=== PATIENT | male | born 1960 | race Caucasian/White ===

== ENCOUNTER → 2016-09-29 | Outpatient (CLI) | payer OTHER ==
[~2016-09-29] MED LIST: ALLO300T2 PO; AMIT50TA3 PO; AMLO-3 PO; ASCA500 PO; ASPEC325 PO; ASPI325T39 PO; CHOL100010 PO; CHOL1CAP30 PO; CLON0.5T3 PO; DIAZ2TAB PO; DIME50TA49; FURO-85 PO; GARL10007 PO; GARL400T2 PO; IBUP-1449 PO; IBUP1CAP9 PO; INSHI7030 SC; INSHRI SQ; INSPMPRGR SQ; INSU1INJ23 SQ; KRIL1CAP14 PO; LISI-526 PO; LISI1TAB3 PO; MAGN250T22 PO; MAGN400T6 PO; MAGN500C PO; METH10TA2 PO; MULT-1018 PO; NXM/40 PO; OMEG10007 PO; ONDA8TAB6 PO; POTASSIUM 99 PO; PROC1TAB5 PO; ROSU5TAB PO; VITA400C15 PO; VITACAP37 PO; VITAMIN D PO; VITBC PO; ZOLP10TA PO
[2016-09-29 13:06] LABS: BASO % 0.3 %; BASO ABS # 0.02 K/uL (0-0.2); COMPLETE YES; EOS % 2.9 %; IG% 0.3 %; LYMPH % 19.8 %; LYMPH ABS # 1.49 K/uL (1.2-3.4); MEAN CORPUSCULAR HEMOGLOBIN 27.9 pg (25-34); MEAN CORPUSCULAR HGB CONC 32.1 g/dl (32-36); MEAN PLATELET VOLUME 10.1 fL (7.4-10.4); MONO % 8.1 %; NEUT % 68.6 %; PLATELET COUNT 310 K/uL (130-400); RED BLOOD COUNT 4.37 M/uL (4.7-6.1); WHITE BLOOD COUNT 7.54 K/uL (4.8-10.8)
== END | disposition home or self-care (01) ==
LOC: C.CPL 12:21
PROVIDERS: ATTEND Surgery
DX: R91.8 Other nonspecific abnormal finding of lung field (principal)

== ENCOUNTER 2016-10-02 11:27 | Day surgery (SDC) | payer OTHER ==
[2016-09-29 16:07] VITALS: BMI 36.0
[~2016-10-02] VITALS: Ht 190.5 cm; Wt 133.0 kg
[~2016-10-02 11:27] MED LIST changes: -ALLO300T2 PO; -AMIT50TA3 PO; -AMLO-3 PO; -ASPI325T39 PO; +ATROPINE SULFATE 0.1 MG/ML 5ML SYR IV PRN; -CHOL100010 PO; -CHOL1CAP30 PO; -CLON0.5T3 PO; -DIME50TA49; +EpHEDrine SULFATE INJ 50 MG/ML AMP IV PRN; +FENTANYL CITRATE INJ 50 MCG/1 ML 2 ML VIAL IV PRN; -GARL10007 PO; -IBUP1CAP9 PO; -INSHI7030 SC; -INSHRI SQ; +LABETALOL HCL IV 5 MG/ML 20ML IV PRN; +LACTATED RINGER'S 1000ML 1,000 ML IV SCH; -LISI-526 PO; -MAGN250T22 PO; -MAGN500C PO; +MEPERIDINE HCL 25 MG/ML CARP IV PRN; -NXM/40 PO; -OMEG10007 PO; -ONDA8TAB6 PO; +ONDANSETRON INJ 2 MG/ML 2 ML VIAL IV PRN; -PROC1TAB5 PO; -ROSU5TAB PO; -VITA400C15 PO; -VITBC PO
[2016-10-02 12:15] VITALS: BP 130/59; PULSE 81; TEMP 37.3; O2SAT 93; Ht 190.5 cm; Wt 133.0 kg
--- NOTE | 2016-10-02 12:42 | Discharge Instructions ---
Discharge Instructions Date of Service Oct 02, 2016. Visit Reason for Visit: Left Lung Mass, Diabetic Discharge Discharge Diagnosis / Problem: Left Lung Mass Discharge Goals Goal(s): Learn about illness Activity Recommendations Activity Limitations: resume your previous activity (in 24 hours) Anesthesia . Post Anesthesia Instructions: If you have had General Anesthesia or IV Sedation: * Do not drive today. * Resume driving when surgeon permits. * Do not make important decisions or sign legal documents today. * Call surgeon for: 1. Temperature elevations greater than 101 degrees F. 2. Uncontrollable pain. 3. Excessive bleeding. 4. Persistent nausea and vomiting. 5. Medication intolerance (nausea, vomiting or rash). * For nausea and vomiting use only clear liquids such as: tea, soda, bouillon until nausea subsides, then gradually increase diet as tolerated. * If you have any concerns or questions, call your surgeon's office. If physician is unavailable and it is an emergency, call 911 or go to the nearest emergency room. . Instructions / Follow-Up Instructions / Follow-Up 1. Keep your scheduled appointment with Dr. Espana on October 09 @ 9:30. 2. You may remove dressing in 3 days and then shower. Do not take a tub bath. Diet Recommendations Recommended Home Diet: resume previous diet Pending Studies Studies pending at discharge: no Medical Emergencies . Who to Call and When: Medical Emergencies: If at any time you feel your situation is an emergency, please call 911 immediately. . Non-Emergent Contact Non-Emergency issues call your: Surgeon Call Non-Emergent contact if: you have a fever, your pain is not controlled, wound has increased drainage . . "Provider Documentation" section prepared by Rosales Lopez. .
--- NOTE | 2016-10-02 13:45 | History & Physical Bridge Note ---
H&P Re-Evaluation Bridge Note: I have examined the patient, reviewed the History & Physical and in the interval since the performance of the History & Physical I have noted the following changes of clinical significance: No changes noted
[2016-10-02] MEDS ORDERED: NEOSTIGMINE METHYLSULFATE 5 MG/5 ML SYR ONE (14:05)
[2016-10-02] MEDS ORDERED: LIDOCAINE HCL 2% 2 ML VIAL (20MG/ML) ONE (14:05)
[2016-10-02] MEDS ORDERED: ONDANSETRON INJ 2 MG/ML 2 ML VIAL ONE (14:05)
[2016-10-02] MEDS ORDERED: PROPOFOL IV EMULSION 10 MG/ML 20 ML VIAL IV ONE ×3 (14:05→14:34)
[2016-10-02] MEDS ORDERED: ROCURONIUM BROMIDE 10 MG/ML 5 ML VIAL ONE (14:05)
[2016-10-02] MEDS ORDERED: GLYCOPYRROLATE INJ 0.2 MG/ML VIAL ONE ×2 (14:05→14:47)
[2016-10-02] MEDS ORDERED: FENTANYL CITRATE INJ 50 MCG/1 ML 2 ML VIAL ONE (14:05)
[2016-10-02] MEDS ORDERED: HYDROmorphone INJ 2 MG/ML SYR/VIAL ONE (14:09)
[2016-10-02] MEDS ORDERED: MIDAZOLAM HCL 1 MG/ML 2ML VIAL ONE (14:09)
[2016-10-02] MEDS ORDERED: NURSING VERBAL MED ORDER ONE (14:15)
[2016-10-02] MEDS ORDERED: BUPIVACAINE LIPOSOME 1/3% 266 MG/20 ML VIAL INFIL ONE (14:29)
[2016-10-02] MEDS ORDERED: SODIUM CHLORIDE 0.9% PF 50 ML VIAL ONE (14:29)
[2016-10-02] MEDS ORDERED: DEXAMETHASONE SOD INJ 4 MG/ML VIAL ONE ×2 (14:30→14:32)
[2016-10-02] MEDS ORDERED: VANCOMYCIN INJ 1,000 MG in SODIUM CHLORIDE 0.9% 250ML 250 ML IV ONE (14:30)
[2016-10-02] MEDS ORDERED: HYDROmorphone INJ 0.5 MG/0.5 ML SYR IV PRN (15:30)
[2016-10-02] MEDS ORDERED: SURGICEL ABSORB HEMOSTAT 2IN X 14IN TOP ONE (15:39)
--- NOTE | 2016-10-02 16:00 | DIAGNOSTIC IMAGING REPORT ---
CHEST ONE VIEW PORTABLE HISTORY:56 yearsMales/p mediastinotomy COMPARISON: CT chest 09/28/2016, chest radiographs 09/28/2016 TECHNIQUE: Portable upright AP view of the chest. FINDINGS: Cardiac silhouette is again enlarged. Anterior mediastinal mass obscures the left paratracheal fat plane and displaces the trachea to the right. Scattered opacities throughout the left upper and lower lobes are redemonstrated, notably a masslike nodule of the left upper lobe. Subsegmental atelectasis and/or scarring is seen within the left upper lobe. The right lung appears clear. There is no pneumothorax or large pleural effusion. Bones appear grossly intact. IMPRESSION: 1. Large anterior mediastinal mass favoring the left paratracheal tissues displaces the mediastinum and trachea to the right, unchanged from comparison. 2. Scattered masslike nodules throughout the left lung suggesting metastasis also appear unchanged. 3. Right lung is clear. The above report was generated using voice recognition software. It may contain grammatical, syntax or spelling errors. Electronically signed by: Rolan Hyde 10/02/2016 3:59 PM Dictated Date/Time: 10/02/2016 3:55 PM
--- NOTE | 2016-10-02 16:03 | Anesthesiology Progress Note ---
Anesthesia Post Op Note Date & Time Oct 02, 2016 at 16:03 Vital Signs Pain Intensity: 0 Vital Signs Past 12 Hours Date Time Temp Pulse Resp B/P (MAP) Pulse Ox O2 Delivery O2 Flow Rate FiO2 10/02/16 15:51 121/60 10/02/16 15:50 79 14 90 10/02/16 15:50 82 14 10/02/16 15:46 117/73 10/02/16 15:45 80 18 10/02/16 15:45 79 18 93 10/02/16 15:41 122/71 10/02/16 15:40 82 15 90 10/02/16 15:40 82 15 10/02/16 15:36 128/79 10/02/16 15:35 83 16 95 10/02/16 15:35 83 16 10/02/16 15:31 118/69 10/02/16 15:30 81 22 98 10/02/16 15:30 82 22 10/02/16 15:26 137/81 10/02/16 15:25 36.3 78 14 137/81 99 Mask 10 10/02/16 12:15 37.3 81 20 130/59 (82) 93 Room Air Notes Mental Status: alert / awake / arousable, participated in evaluation Pt Amnestic to Procedure: Yes Nausea / Vomiting: adequately controlled Pain: adequately controlled Airway Patency, RR, SpO2: stable & adequate BP & HR: stable & adequate Hydration State: stable & adequate Anesthetic Complications: no major complications apparent
[2016-10-02 16:10] VITALS: BP 138/62; PULSE 79; TEMP 36.9; O2SAT 96
--- NOTE | 2016-10-02 16:15 | [facility] Operative Report ---
Operative Report Date of Service Oct 02, 2016. 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 FACS Asst.: Vamshi BECERRIL Anesthesia: General anesthesia with endotracheal intubation Procedure: Patient brought to the operating room and laid in the supine position. After general anesthesia had been induced and tracheal intubation performed, the left chest was prepped and draped in the usual sterile fashion. After appropriate timeout and called and prophylactic antibiotics given incision was made in the second interspace just lateral to the left sternum. This transverse incision was divided with a cautery down to the pectoralis major muscle which was divided in the direction of its fibers. This brought us down to the endothoracic fascia which was divided. The mediastinal pleura was opened. Internal mammary artery and vein were noted and were clipped proximally and distally. Going deeper, the mass this was felt and seen to be quite hard. Using biopsy forceps I removed several pieces of this. There was very little bleeding. This was sent for frozen section and Dr. Octavio Eldridge felt we had plenty of tissue to make a diagnosis. He was leaning towards a small cell lung carcinoma although poorly differentiated lymphoma was still in the differential. 0 Vicryl was used in running fashion reapproximate the pectoralis fascia. 3-0 Polysorb was used to close the Ceptaz tissues and 4 Monocryl was used to insufflate or fashion approximately wound edges. Antimicrobial dressings were placed. He was extubated in the room and really tolerated quite well. I did inject about 150 mL milligrams of Exparel mixed in about 40 mL of normal saline into the surrounding skin and subcutaneous tissues. He really awakened very little pain. His x-ray and was taken back to the postanesthesia care unit in stable condition. I attest to the content of the Intraoperative Record and any orders documented therein. Any exceptions are noted below.
[2016-10-02 16:40] VITALS: BP 126/60; PULSE 83; O2SAT 96
[2016-10-02 17:00] VITALS: BP 134/62; PULSE 87; TEMP 37; O2SAT 96
[2016-10-17] MEDS ORDERED: ONDA8TAB6 PO (08:29)
[2016-10-17] MEDS ORDERED: PROC1TAB5 PO (08:29)
[2016-10-17] MEDS ORDERED: ALLO300T2 PO (08:29)
[2016-12-11] MEDS ORDERED: AMLO-3 PO (09:32)
[2016-12-11] MEDS ORDERED: DIME50TA49 (09:33)
== END 2016-10-02 17:07 | disposition home or self-care (01) ==
LOC: C.ACU 11:27
PROVIDERS: ATTEND Surgery
DX: C38.3 Malignant neoplasm of mediastinum, part unspecified (principal); E11.21 Type 2 diabetes mellitus with diabetic nephropathy; E11.42 Type 2 diabetes mellitus with diabetic polyneuropathy; F17.200 Nicotine dependence, unspecified, uncomplicated; E78.5 Hyperlipidemia, unspecified; I10 Essential (primary) hypertension; E66.9 Obesity, unspecified; E55.9 Vitamin D deficiency, unspecified; Z79.82 Long term (current) use of aspirin

== ENCOUNTER 2016-10-10 19:27 | Emergency (ER) | payer OTHER ==
[~2016-10-10] VITALS: Ht 190.5 cm; Wt 132.9 kg
[~2016-10-10 19:27] MED LIST changes: -ALLO300T2 PO; -AMLO-3 PO; -ASPI325T39 PO; -CHOL1CAP30 PO; -DIME50TA49; -GARL10007 PO; -IBUP1CAP9 PO; -MAGN500C PO; -ONDA8TAB6 PO; -PROC1TAB5 PO
[2016-10-10 19:39] VITALS: TEMP 36.7; Ht 190.5 cm; Wt 132.9 kg
[2016-10-10] MEDS ORDERED: ENOXAPARIN 1 MG/KG SQ STA (19:53)
--- NOTE | 2016-10-10 19:59 | EMERGENCY ROOM VISIT NOTE ---
History First contact with patient: 19:45 Chief Complaint: SWELLING TO EXTREMITY Stated Complaint: LUNG CA PT, SWELLING History of Present Illness The patient is a 56 year old male who presents to the Emergency Room via private vehicle accompanied by father with complaints of "lung cancer patient, swelling to left upper arm". The patient states that he was recently diagnosed with a mass in his chest, and today received his first dose of chemotherapy. He states that for the past 2 weeks he has had left arm swelling, with minimal pain. He states that an ultrasound of the left upper extremity was ordered, and he was sent here from ultrasound because the results. Dr. Gale, called the emergency department and spoke with my attending, and requested the patient be given one made per of Double Encore 1 and he will follow up with Dr. Gale in the office tomorrow morning at 11 AM. The remainder of his care can begin at that time. The patient denies any shortness of breath or chest pain at rest. He states that when he stops he feels shortness of breath. Review of Systems A complete 10-point Review of Systems was discussed with the patient, with pertinent positives and negatives listed in the History of Present Illness. All remaining Review of Systems questions can be considered negative unless otherwise specified. Past Medical/Surgical History Medical Problems: (1) Diabetes Surgical Problems: (1) History of back surgery Family History Diabetes mellitus Social History Smoking Status: Former Smoker Alcohol Use: none Marital Status: single Housing Status: lives alone Occupation Status: unemployed Current/Historical Medications Scheduled Ascorbic Acid (Vitamin C), 500 MG PO BID Aspirin (Aspirin Ec), 325 MG PO QAM Cholecalciferol (Vitamin D3), 400 UNITS PO DAILY Garlic (Garlic), 1,000 MG PO DAILY Insulin Isophane (Human) (Humulin N Kwikpen), 90 UNITS SQ HS Krill Oil (Maximum Red Krill 300 mg), 1 CAP PO QD Lisinopril (Zestril), 30 MG PO DAILY Magnesium Oxide (Mg Supplement (Magnesium), 500 MG PO DAILY Methadone Hcl (Dolophine), 20 MG PO BID Multiple Vitamins W/ Minerals (Hair Skin and Nails Formu), 1 TAB PO DAILY Vitamin E (E-400), 400 MG PO TIDM Zolpidem Tartrate (Ambien), 10 MG PO HS [Potassium 99], 1 TAB PO TID Scheduled PRN Aspirin (Aspirin Ec), 650 MG PO TID PRN for DENTAL PAIN Diazepam (Valium), 4 MG PO BID PRN for Anxiety Furosemide (Lasix), 20 MG PO DAILY PRN for SWELLING Ibuprofen (Ibuprofen), 200 MG PO TID PRN for DENTAL PAIN Insulin Human Regular (Humulin R), 1 DOSE SQ AC PRN for SLIDING SCALE Allergies Coded Allergies: Amoxicillin (Verified Allergy, Intermediate, sob, 10/02/16) Atorvastatin (Verified Allergy, Intermediate, diarrhea, 10/02/16) Acetaminophen (Verified Allergy, Unknown, PT STATES "IT INTENSIFIES EFFECT ", 10/02/16) Clindamycin (Verified Allergy, Unknown, SHORTNESS OF BREATH, 10/02/16) Escitalopram (Verified Allergy, Unknown, GI UPSET, 10/02/16) Gabapentin (Verified Allergy, Unknown, CONSTIPATION, 10/02/16) Morphine (Verified Allergy, Unknown, DID NOT TOLERATE PER PT, 10/02/16) Propoxyphene (Verified Allergy, Unknown, "DID CRAZY THINGS", 10/02/16) Sitagliptin (Verified Allergy, Unknown, UNKNOWN RXN, 10/02/16) Metformin (Verified Adverse Reaction, Unknown, PT STATES "DID NOT WORK", ) Uncoded Allergies: ADHESIVRES (Allergy, Severe, rips his skin off, 10/02/16) Physical Exam Vital Signs Date Time Temp Pulse Resp B/P (MAP) Pulse Ox O2 Delivery O2 Flow Rate FiO2 10/10/16 20:28 84 22 144/71 92 10/10/16 19:39 36.7 85 20 134/71 91 Room Air Physical Exam VITAL SIGNS - Vital signs and nursing notes were reviewed. Patient is afebrile , blood pressure 134/71, non-tachycardic and is saturating on room air at 91%. GENERAL -56-year-old male appearing his stated age who is in no acute distress. Communicates well with provider and answers questions appropriately. SKIN - Without rashes. No petechial rashes. There is slight erythema to the left upper extremity and edema. LUNGS - Chest wall symmetric without accessory muscle use, intercostals retractions, or central cyanosis. Normal vesicular breath sounds CTA B/L. No wheezes, rales, or rhonchi appreciated. CARDIAC - RRR with S1/S2. No murmur, rubs, or gallops appreciated. EXTREMITIES - No clubbing or peripheral cyanosis. No pretibial edema present. He is neurovascularly intact left upper extremity. +5/5 strength noted in UE/LE bilaterally. Medical Decision & Procedures Medications Administered Medications (Trade) Dose Ordered Sig/Prince Route Start Time Stop Time Status Last Admin Dose Admin Enoxaparin Sodium (Lovenox Inj) 129 mg NOW ONCE SQ 10/10/16 20:15 10/10/16 20:16 DC 10/10/16 20:21 129 MG Miscellaneous (Lovenox Teaching Kit) 1 ea NOW ONCE N/A 10/10/16 20:15 10/10/16 20:16 DC 10/10/16 20:20 1 EA Medical Decision Patient was seen and evaluated as above. After obtaining a thorough history and physical examination it was evident the patient was recently diagnosed with a DVT in the left upper extremity. As per the request of his physician, Dr. Gale he'll be placed upon 1 mg/kg of Lovenox which was ordered by my attending. He was educated upon use of this medication. He is to follow-up tomorrow morning at [address] Gale. The request was for 1 dose now and the remainder can be with follow-up in the office. He was educated upon worrisome symptoms in which to return, had questions prior to discharge, and was discharged home in good condition. In evaluation treatment this patient following differential diagnoses entertained: NV, PE, DVT, among others. Impression Primary Impression: DVT of upper extremity (deep vein thrombosis) Departure Information Dispostion Home / Self-Care Condition GOOD Referrals Efraín Zamudio III, M.D. (PCP) Patient Instructions My [facility] Additional Instructions You were seen in the emergency Department for a DVT or blood clot in your left upper arm. Dr. Gale requests that you follow-up with them tomorrow, and they will resume your treatment. Please keep your follow-up for tomorrow. Please return to the emergency department with any new/concerning symptoms.
--- NOTE | 2016-10-10 20:08 | EMERGENCY ROOM VISIT NOTE ---
ED Visit Note First contact with patient: 19:45 I have seen and examined this patient with Cesar Graf and generally agree with the treatment plan as discussed.
[2016-10-10] MEDS ORDERED: ENOXAPARIN 150 MG/1ML SYR SQ ONE (20:15)
[2016-10-10] MEDS ORDERED: LOVENOX TEACHING KIT ONE (20:15)
[2016-10-10] MEDS ORDERED: ASPI325T39 PO ×2 (20:18→20:19)
[2016-10-10] MEDS ORDERED: IBUP1CAP9 PO (20:21)
[2016-10-10] MEDS ORDERED: GARL10007 PO (20:26)
[2016-10-10] MEDS ORDERED: MAGN500C PO (20:27)
[2016-10-10 20:28] VITALS: BP 144/71; PULSE 84; O2SAT 92
[2016-10-10] MEDS ORDERED: CHOL1CAP30 PO (20:30)
[2016-10-17] MEDS ORDERED: ALLO300T2 PO (08:29)
[2016-10-17] MEDS ORDERED: PROC1TAB5 PO (08:29)
[2016-10-17] MEDS ORDERED: ONDA8TAB6 PO (08:29)
[2016-12-11] MEDS ORDERED: AMLO-3 PO (09:32)
[2016-12-11] MEDS ORDERED: DIME50TA49 (09:33)
== END 2016-10-10 20:28 | disposition home or self-care (01) ==
LOC: C.EDB 19:28 → C.EDA 20:28
DX: I82.622 Acute embolism and thrombosis of deep veins of left upper extremity (principal); E11.9 Type 2 diabetes mellitus without complications; Z83.3 Family history of diabetes mellitus; Z87.891 Personal history of nicotine dependence; C34.92 Malignant neoplasm of unspecified part of left bronchus or lung; R60.0 Localized edema

== ENCOUNTER → 2016-10-10 | Outpatient (CLI) | payer OTHER ==
[~2016-10-10] MED LIST changes: +ALLO300T2 PO; +AMLO-3 PO; +ASPI325T39 PO; -ATROPINE SULFATE 0.1 MG/ML 5ML SYR IV PRN; +CHOL1CAP30 PO; +DIME50TA49; -EpHEDrine SULFATE INJ 50 MG/ML AMP IV PRN; -FENTANYL CITRATE INJ 50 MCG/1 ML 2 ML VIAL IV PRN; +GARL10007 PO; +IBUP1CAP9 PO; -LABETALOL HCL IV 5 MG/ML 20ML IV PRN; -LACTATED RINGER'S 1000ML 1,000 ML IV SCH; +MAGN500C PO; -MEPERIDINE HCL 25 MG/ML CARP IV PRN; +ONDA8TAB6 PO; -ONDANSETRON INJ 2 MG/ML 2 ML VIAL IV PRN; +PROC1TAB5 PO
--- NOTE | 2016-10-10 19:06 | DIAGNOSTIC IMAGING REPORT ---
BILATERAL UPPER EXTREMITY VENOUS DOPPLER ULTRASOUND CLINICAL HISTORY: Lung cancer. Swelling. COMPARISON STUDY: No previous studies for comparison. FINDINGS: There is no deep venous thrombus within the right upper extremity. There is extensive deep venous thrombus within the left internal jugular, subclavian, brachiocephalic and axillary veins as well as superficial thrombus within the left cephalic vein. This clot is largely occlusive. IMPRESSION: 1. Extensive deep venous thrombus within the left upper extremity, as described above. 2. No deep venous thrombus within the right upper extremity. Electronically signed by: Thomas Hahn M.D. 10/10/2016 7:05 PM Dictated Date/Time: 10/10/2016 7:02 PM
== END | disposition home or self-care (01) ==
LOC: C.ULTR 16:55
PROVIDERS: ATTEND Internal Medicine Hematology
DX: C34.92 Malignant neoplasm of unspecified part of left bronchus or lung (principal); R60.0 Localized edema; I82.622 Acute embolism and thrombosis of deep veins of left upper extremity

== ENCOUNTER → 2016-10-12 | Outpatient (CLI) | payer OTHER ==
[~2016-10-12] MED LIST changes: +ALLO300T2 PO; +AMLO-3 PO; -ASPEC325 PO; +ASPI325T39 PO; +CHOL1CAP30 PO; +DIME50TA49; +GADAVIST IV PRN; +GARL10007 PO; -GARL400T2 PO; -IBUP-1449 PO; +IBUP1CAP9 PO; -MAGN400T6 PO; +MAGN500C PO; +ONDA8TAB6 PO; +PROC1TAB5 PO; -VITAMIN D PO
--- NOTE | 2016-10-12 17:13 | DIAGNOSTIC IMAGING REPORT ---
ORBITS FOR MRI HISTORY: Pre-MRI pre-MRI screening. COMPARISON: None. FINDINGS: There are no radiopaque foreign bodies identified within the orbits. IMPRESSION: No radiopaque foreign bodies identified within the orbits. The above report was generated using voice recognition software. It may contain grammatical, syntax or spelling errors. Electronically signed by: Sunday Mckeon M.D. 10/12/2016 5:11 PM Dictated Date/Time: 10/12/2016 5:10 PM
--- NOTE | 2016-10-12 18:04 | DIAGNOSTIC IMAGING REPORT ---
BRAIN COMBO CLINICAL HISTORY: LUNG CANCER, BRAIN METS COMPARISON STUDY: No previous studies for comparison. TECHNIQUE: Utilizing a 1.5 Donita magnet and dedicated coil, multiplanar, multiecho imaging of the brain was performed pre and postcontrast administration. IV administration of 13 mL of Gadavist contrast was uneventful. FINDINGS: Diffusion-weighted images are negative for an acute ischemic insult. FLAIR images demonstrate several foci of increased signal suggesting a component of mild chronic small vessel change. Ventricular system is midline. There is no evidence for abnormal postcontrast enhancement. Sella and parasellar regions are unremarkable. IMPRESSION: Negative study of the brain for age. The above report was generated using voice recognition software. It may contain grammatical, syntax or spelling errors. Electronically signed by: Sunday Mckeon M.D. 10/12/2016 6:02 PM Dictated Date/Time: 10/12/2016 5:59 PM
== END | disposition home or self-care (01) ==
LOC: C.MRI 16:35
PROVIDERS: ATTEND Internal Medicine Hematology
DX: C34.92 Malignant neoplasm of unspecified part of left bronchus or lung (principal)

== ENCOUNTER → 2016-10-18 | Outpatient (CLI) | payer OTHER ==
[~2016-10-18] MED LIST changes: -GADAVIST IV PRN; -IBUP1CAP9 PO; -MULT-1018 PO
--- NOTE | 2016-10-18 11:08 | DIAGNOSTIC IMAGING REPORT ---
ADDENDUM ADDENDUM: In addition to the above findings, there is a 1.5 cm left adrenal nodule. This meets CT criteria for a fat-containing adenoma. All additional findings are unchanged. Electronically signed by: Hero Fair M.D. 10/18/2016 11:28 AM Dictated Date/Time: 10/18/2016 11:27 AM ORIGINAL REPORT PET/CT CLINICAL HISTORY: Non-small cell lung cancer. COMPARISON STUDY: Chest CT scan dated 09/28/2016. TECHNIQUE: One hour following the IV administration of 12.88 mCi of F-18 FDG, PET/CT examination was performed from the orbital meatal line through the bony pelvis. Noncontrast CT is performed for the purposes of anatomic correlation and attenuation correction. Note that this does not reflect a diagnostic CT examination. Images were reviewed on a separate [employer] independent workstation. Fused images were obtained. Standard uptake values reported are maximum values within the region of interest expressed in gm/mL. FINDINGS: PET FINDINGS: Head and neck: There is expected physiologic activity within the visualized brain parenchyma at the skull base and the salivary glands. There is nonspecific activity localizing to the right vocal cord as seen on axial image #44. This demonstrates a maximum SUV of 6.4. No corresponding lesion is suggested on the low-dose CT images. Thorax: Evaluation of the thorax demonstrates expected physiologic myocardial activity. There is a large mediastinal mass versus gilson aggregate which measures approximately 9 x 12 x 7.5 cm. This extends from just below the thoracic inlet to the pulmonary trunk and encases the thoracic aorta and its major branches as well as the left main pulmonary artery. This is FDG avid, and demonstrates a maximum SUV of 7.6. There extends towards the left hilum. No right hilar adenopathy is seen. There is a lobulated 3.4 x 1.7 cm lesion in the left upper lobe seen on image #72 as well as a similar-appearing 2.5 x 1.4 cm lesion in the lingula seen on image #93. There is no significant FDG activity within these lesions. Additional subcentimeter nodules are seen in the left upper lobe on images #73 an #75 as well as in the lingula on image #95. These are too small for PET characterization. No right-sided pulmonary lesions are seen. Activity within the left shoulder musculature is likely physiologic. Abdomen and pelvis: There is expected activity within the liver, spleen, kidneys, renal collecting system, and bladder. Low-level bowel activity is likely within physical limits. Unenhanced CT images: Partially imaged brain parenchyma the skull base is grossly normal in appearance. The visualized paranasal sinuses and mastoid air cells are clear. The salivary and thyroid glands are within normal limits. No cervical lymphadenopathy is identified. The thoracic aorta is normal in caliber. The heart is mildly enlarged and there is a small pericardial effusion. Emphysema is noted. There is no airspace consolidation typical for pneumonia. A small pleural effusion is identified. No axillary lymphadenopathy is seen. A tiny hiatal hernia is observed. The unenhanced liver, gallbladder, spleen, right adrenal gland, and pancreas are grossly normal. The kidneys demonstrate cortical atrophy and are without hydronephrosis. The abdominal aorta is normal in caliber noting moderate atherosclerotic calcification. No bowel obstruction is identified. There is mild colonic diverticulosis without CT evidence of acute diverticulitis. No intraperitoneal free air or abdominal ascites is seen. There is no abdominal, pelvic, or inguinal lymphadenopathy. The bladder, prostate, and seminal vesicles are normal as visualized. No lytic or blastic lesions are clearly seen. Postlaminectomy change is identified in the lumbar spine. IMPRESSION: 1. There is a large and FDG avid mediastinal mass/gilson aggregate which encases several vascular structures as detailed above. 2. There are 2 lobular left-sided pulmonary lesions measuring up to 3.4 cm as well as several subcentimeter left-sided pulmonary nodules. These were not demonstrably FDG avid but are morphologically concerning for neoplasm. Tissue sampling will likely be required for definitive characterization. 3. No right-sided pulmonary lesion is seen. 4. Cardiomegaly and emphysema. 5. There is nonspecific FDG activity identified localizing to the right vocal cord. No corresponding soft tissue lesion is suggested by CT. This is of indeterminant etiology and significance, and at a minimum attention at follow-up is recommended. If further investigation is desired then direct visualization would be appropriate. 6. There is no evidence of extrathoracic metastatic disease. 7. Small left pleural effusion. Electronically signed by: Hero Fair M.D. 10/18/2016 11:07 AM Dictated Date/Time: 10/18/2016 10:29 AM
== END | disposition home or self-care (01) ==
LOC: C.PET 07:21
PROVIDERS: ATTEND Internal Medicine Hematology
DX: C34.92 Malignant neoplasm of unspecified part of left bronchus or lung (principal)

== ENCOUNTER → 2016-12-18 | Outpatient (CLI) | payer OTHER ==
[~2016-12-18] MED LIST changes: -ALLO300T2 PO; -LISI1TAB3 PO; -ONDA8TAB6 PO; -PROC1TAB5 PO
--- NOTE | 2016-12-18 11:02 | DIAGNOSTIC IMAGING REPORT ---
LEFT UPPER EXTREMITY VENOUS DOPPLER HISTORY: Follow-up LEFT UPPER EXT DEEP VEIN THROMBOSIS COMPARISON STUDY: Left upper extremity venous Doppler 10/10/2016. FINDINGS: The left internal jugular vein was not clearly visualized. There is normal flow within the left subclavian vein. There is normal flow and compressibility within the left axillary, basilic, brachial, radial, ulnar, and visualized cephalic veins. IMPRESSION: 1. The left internal jugular vein was not clearly visualized and could be chronically thrombosed/narrowed. 2. Otherwise, the remaining left upper extremity deep venous structures are patent. Electronically signed by: Jace Ceballos M.D. 12/18/2016 11:00 AM Dictated Date/Time: 12/18/2016 10:57 AM
== END | disposition home or self-care (01) ==
LOC: C.ULTR 10:20
PROVIDERS: ATTEND Internal Medicine Hematology
DX: C34.92 Malignant neoplasm of unspecified part of left bronchus or lung (principal); I82.622 Acute embolism and thrombosis of deep veins of left upper extremity

== ENCOUNTER → 2017-01-19 | Outpatient (CLI) | payer OTHER ==
[~2017-01-19] MED LIST changes: +Azo PO; +BIOT7500 PO; +CHOL1TAB42 PO; -DIME50TA49; +DIME50TA49 PO; +IBUP-1105 PO; +IPRA1AER2 INH; +OMEG10007 PO; +ONDA8TAB6 PO; +POTA99TA PO; +PROC1TAB5 PO; +TRAM-10 PO; +[UNRECOGNIZED DRUG - CODE] PO
[2017-01-19 09:35] VITALS: BP 125/69; PULSE 88; TEMP 36.9; O2SAT 94
--- NOTE | 2017-01-19 13:38 | Radiation Oncology Follow-Up ---
Radiation Oncology Follow-Up Date of Visit Jan 19, 2017. Reason For Visit One-month follow-up and cancer survivorship care plan Radiation Completion Date 12/19/16 Diagnosis (1) Primary cancer of left upper lobe of lung Status: Acute Onset Date: 10/02/2016 Histology Subtype: small cell carcinoma Stage: lll (B) Permanent Comment: Development of left neck and arm swelling CT finding of impending superior vena caval syndrome, mediastinal mass and left upper lobe mass Status post anterior mediastinal endoscopy and biopsy Beaver procedure 12/2016 Small cell carcinoma Emergent chemotherapy 10/10/2016 carboplatin and etoposide Excellent clinical response Status post completion of combined radiation and chemotherapy radiation completed 12/19/2016. He received 7000 cGy Last Edited By: Alexsandra Galvez on Dec 25, 2016 10:46 History of Present Illness Mr. Carcamo is a 56-year-old gentleman who presents with a recent history of swelling in the left neck that was initially treated with antibiotics but did not improve. He was also developing swelling in the left arm as well. He had a chest x-ray completed on 09/28/2016 which revealed left mediastinal adenopathy and left hilar adenopathy and a left upper lobe mass. He did undergo a CT of the thorax on 09/28/2016 which revealed multiple large upper lobe masses as well as a large conglomerate mediastinal and left hilar mass measuring 15.7 cm in the greatest dimension. Additionally, there was noted to be encasement of multiple mediastinal veins and severe attenuation of the left pulmonary artery. Additionally, they did note some nodularity in the left adrenal gland. The patient was seen by Dr. Bob Espana on 10/02/2016 who did perform a mediastinoscopy and biopsy of the left lung mass which confirmed small cell lung carcinoma. He also had a bilateral upper extremity venous Doppler ultrasound on 10/10/2016 which revealed extensive deep venous thrombosis in the left upper extremity. The patient was seen by Dr. Brett Gale for medical oncology who recommended up front urgent chemotherapy and treated the patient with 1 cycle of carboplatin and etoposide chemotherapy. After completing the cycle of chemotherapy the patient did note a significant reduction in swelling in his left upper extremity and neck. The patient did have an MRI of the brain completed on 10/12/2016 which was negative for metastatic disease. We are now seeing the patient in consultation to discuss the role of radiation therapy. He underwent a PET/CT. He then returned to our office to undergo combined radiation and chemotherapy. Radiation was completed 12/19/2016 he received 7000 cGy. Interim History He continues to have fatigue. He has difficulty with activities and becomes fatigued and at times short of breath. He has seen in medical oncology due to issues that he has been having with intermittent temperature, sweats, and shortness of breath. The Lovenox was discontinued. There was some improvement with the discontinuation of that medication. He continues to have reflux symptoms. He has some difficulty with swallowing. He notes that if food is dry or of a rough texture he has difficulty swallowing. Small pills are difficult to swallow and sometimes come back up. He is tried taking these with applesauce which did not help. He takes in fluids through a straw to prevent coughing. He is not having any complaint today of neck or shoulder swelling. Allergies Coded Allergies: Amoxicillin (Verified Allergy, Intermediate, sob, 10/02/16) Atorvastatin (Verified Allergy, Intermediate, diarrhea, 10/02/16) Acetaminophen (Verified Allergy, Unknown, PT STATES "IT INTENSIFIES EFFECT ", 10/02/16) Clindamycin (Verified Allergy, Unknown, SHORTNESS OF BREATH, 10/02/16) Escitalopram (Verified Allergy, Unknown, GI UPSET, 10/02/16) Gabapentin (Verified Allergy, Unknown, CONSTIPATION, 10/02/16) Morphine (Verified Allergy, Unknown, DID NOT TOLERATE PER PT, 10/02/16) Propoxyphene (Verified Allergy, Unknown, "DID CRAZY THINGS", 10/02/16) Sitagliptin (Verified Allergy, Unknown, UNKNOWN RXN, 10/02/16) Adhesives (Verified Adverse Reaction, Unknown, "rips his skin off", ) Metformin (Verified Adverse Reaction, Unknown, PT STATES "DID NOT WORK", ) Home Medications Scheduled Ascorbic Acid (Vitamin C), 1.5 TABS PO DAILY Aspirin (Aspirin Ec), 325 MG PO QAM Biotin (Biotin), 2 TAB PO DAILY Cholecalciferol (Vitamin D), 1 TAB PO DAILY Fish Oil ([place]-3), 1 CAP PO DAILY Garlic (Garlic), 1,000 MG PO DAILY Insulin Isophane (Human) (Humulin N Kwikpen), 90 UNITS SQ HS Magnesium Oxide (Mg Supplement (Magnesium), 500 MG PO DAILY Methadone Hcl (Dolophine), 20 MG PO BID Vitamin E (E-400), 400 MG PO TIDM Zolpidem Tartrate (Ambien), 10 MG PO HS [Azo], 2 CAP PO DAILY [Potassium 99], 1 TAB PO TID Scheduled PRN Aspirin (Aspirin Ec), 650 MG PO TID PRN for DENTAL PAIN Diazepam (Valium), 4 MG PO BID PRN for Anxiety Dimenhydrinate (Dramamine), 1 CAP PO Q4H PRN for Nausea Furosemide (Lasix), 20 MG PO DAILY PRN for SWELLING Insulin Human Regular (Humulin R), 1 DOSE SQ AC PRN for SLIDING SCALE Ondansetron Hcl (Zofran), 8 MG PO Q8 PRN for Nausea Prochlorperazine Maleate (Compazine), 1 TAB PO Q6 PRN for Nausea Tramadol (Ultram), 100 MG PO Q4H PRN for Pain Review of Systems Gastrointestinal: Symptoms: Nausea GI Comments: Waves of nausea that he notes occurs around his meals; Oral: Other Oral Symptoms: See below notations Respiratory: Symptoms: SOB With Exertion Urinary: Symptoms: WNL Skin: Symptoms: No Problems Other Skin Symptoms: Left areola darker brown that his right one; Physical Exam Vital Signs Date Time Temp Pulse Resp B/P (MAP) Pulse Ox O2 Delivery O2 Flow Rate FiO2 01/19/17 09:35 36.9 88 12 125/69 94 Pain: Patient Pain Scale: 0 - 10 Initial Pain Intensity: 5.0 Fatigue: None General Appearance: no apparent distress Eyes: normal inspection, EOMI ENT: normal ENT inspection, hearing grossly normal Neck: no adenopathy, thyroid normal Respiratory/Chest: lungs clear, no respiratory distress, no accessory muscle use, + decreased breath sounds Cardiovascular: regular rate, rhythm, no gallop, no murmur Abdomen: non tender, soft, no organomegaly Extremities: no pedal edema Neurologic/Psychiatric: no motor/sensory deficits, alert Skin: warm/dry Laboratory Studies Test 11/29/16 09:36 12/06/16 09:35 White Blood Count 3.46 K/uL (4.8-10.8) 2.37 K/uL (4.8-10.8) Red Blood Count 3.85 M/uL (4.7-6.1) 3.40 M/uL (4.7-6.1) Hemoglobin 10.9 g/dL (14.0-18.0) 9.9 g/dL (14.0-18.0) Hematocrit 33.6 % (42-52) 29.8 % (42-52) Mean Corpuscular Volume 87.3 fL (80-100) 87.6 fL (80-100) Mean Corpuscular Hemoglobin 28.3 pg (25-34) 29.1 pg (25-34) Mean Corpuscular Hemoglobin Concent 32.4 g/dl (32-36) 33.2 g/dl (32-36) Platelet Count 217 K/uL (130-400) 102 K/uL (130-400) Mean Platelet Volume 9.1 fL (7.4-10.4) 9.9 fL (7.4-10.4) Neutrophils (%) (Auto) 84.3 % 68.4 % Lymphocytes (%) (Auto) 10.4 % 16.9 % Monocytes (%) (Auto) 3.8 % 12.2 % Eosinophils (%) (Auto) 0.9 % 1.3 % Basophils (%) (Auto) 0.3 % 0.4 % Neutrophils # (Auto) 2.92 K/uL (1.4-6.5) 1.62 K/uL (1.4-6.5) Lymphocytes # (Auto) 0.36 K/uL (1.2-3.4) 0.40 K/uL (1.2-3.4) Monocytes # (Auto) 0.13 K/uL (0.11-0.59) 0.29 K/uL (0.11-0.59) Eosinophils # (Auto) 0.03 K/uL (0-0.5) 0.03 K/uL (0-0.5) Basophils # (Auto) 0.01 K/uL (0-0.2) 0.01 K/uL (0-0.2) RDW Standard Deviation 58.0 fL (36.4-46.3) 59.1 fL (36.4-46.3) RDW Coefficient of Variation 18.4 % (11.5-14.5) 19.3 % (11.5-14.5) Immature Granulocyte % (Auto) 0.3 % 0.8 % Immature Granulocyte # (Auto) 0.01 K/uL (0.00-0.02) 0.02 K/uL (0.00-0.02) Sodium Level 134 mmol/L (136-145) 139 mmol/L (136-145) Potassium Level 5.1 mmol/L (3.5-5.1) 4.1 mmol/L (3.5-5.1) Chloride Level 100 mmol/L (98-107) 105 mmol/L (98-107) Carbon Dioxide Level 28 mmol/L (21-32) 29 mmol/L (21-32) Anion Gap 6.0 mmol/L (3-11) 5.0 mmol/L (3-11) Blood Urea Nitrogen 31 mg/dl (7-18) 19 mg/dl (7-18) Creatinine 1.10 mg/dl (0.60-1.40) 0.93 mg/dl (0.60-1.40) Est Creatinine Clear Calc Drug Dose 113.2 ml/min 135.8 ml/min Estimated GFR () 87.7 107.5 Estimated GFR (Non- 75.7 92.7 BUN/Creatinine Ratio 27.9 (10-20) 20.5 (10-20) Random Glucose 244 mg/dl (70-99) 209 mg/dl (70-99) Calcium Level 9.5 mg/dl (8.5-10.1) 9.5 mg/dl (8.5-10.1) Total Bilirubin 0.2 mg/dl (0.2-1) < 0.1 mg/dl (0.2-1) Aspartate Amino Transferase (AST) 39 U/L (15-37) 33 U/L (15-37) Alanine Aminotransferase (ALT) 28 U/L (12-78) 29 U/L (12-78) Alkaline Phosphatase 58 U/L (45-117) 59 U/L (45-117) Total Protein 6.8 gm/dl (6.4-8.2) 6.5 gm/dl (6.4-8.2) Albumin 3.1 gm/dl (3.4-5.0) 3.0 gm/dl (3.4-5.0) Globulin 3.7 gm/dl (2.5-4.0) 3.5 gm/dl (2.5-4.0) Albumin/Globulin Ratio 0.8 (0.9-2) 0.9 (0.9-2) Nucleated RBC Absolute Count (auto) 0.04 K/uL (0-0) Nucleated Red Blood Cells % 1.5 % Chemistry Specimen Hemolysis Assessment & Plan Plan: He was seen and examined by Dr. Gale. He is scheduled for recheck PET scan and MRI on 01/31/2017. These will be reviewed. Today we completed a cancer survivorship care plan. A copy of the document was given to the patient. He was given a survivorship booklet. I did review his difficulty with swallowing. If this persists he may need to have an evaluation to rule out and treat esophageal stricture. We asked him to return to our office in 6 months. He may call if he has any questions or concerns in the interim. Assessment & Plan (Attending) ADDENDUM: I agree with note created by Alexsandra Galvez PA-C. I reviewed the patient's chart and information with her. I have examined and evaluated the patient. I reviewed relevant clinical information and answered the patient's and /or family's questions. DOORSHAKER Total Time In Follow-Up I spent 20 minutes speaking to the patient performing examination. I spent 20 minutes reviewing information, preparing the survivorship document, and completing this note. Total Time (Attending) In Follow-Up I spent 15 minutes examining and counseling the patient. DOORSHAKER Copy To Brett Gale M.D.; Efraín Zamudio III, M.D.; Bob Espana MD
== END | disposition home or self-care (01) ==
LOC: C.ONC 08:51
PROVIDERS: ATTEND Physician Assistant Medical
DX: Z08 Encounter for follow-up examination after completed treatment for malignant neoplasm (principal); Z92.3 Personal history of irradiation; Z85.118 Personal history of other malignant neoplasm of bronchus and lung

== ENCOUNTER 2017-01-30 11:14 | Inpatient (IN) | payer OTHER ==
[~2017-01-30] VITALS: Ht 190.5 cm; Wt 133.2 kg
[~2017-01-30 11:14] MED LIST changes: -AMLO-3 PO; -CHOL1CAP30 PO; -IBUP-1105 PO; -IPRA1AER2 INH; -KRIL1CAP14 PO; -POTA99TA PO; -[UNRECOGNIZED DRUG - CODE] PO
[2017-01-30] MEDS ORDERED: OPTIRAY 320 IV PRN (11:45)
--- NOTE | 2017-01-30 11:54 | DIAGNOSTIC IMAGING REPORT ---
CHEST ONE VIEW PORTABLE CLINICAL HISTORY: 56 years-old Male presenting with EVALUATE RESPIRATORY DISTRESS.DYSPNEA. TECHNIQUE: Portable upright AP view of the chest was obtained. COMPARISON: 10/02/2016. FINDINGS: The cardiomediastinal silhouette is enlarged secondary to the presence of the multilobular anterior mediastinal mass better appreciated on CT from 09/28/2016. Significant interval opacification of the left lung diffusely area the left mainstem bronchus appears grossly patent. Suggestion of minimal opacity in the right upper lung. No large effusion or pneumothorax. Osseous structures normal. Upper abdomen normal. IMPRESSION: 1. Significant interval increase in diffuse left lung opacity and new minimal opacity in the right upper lung. This is concerning for progression of disease versus postobstructive pneumonia. Further evaluation with CT recommended. Electronically signed by: Octavio Torres M.D. 01/30/2017 11:53 AM Dictated Date/Time: 01/30/2017 11:49 AM
[2017-01-30 11:57] LABS: BASO % 0.1 %; BASO ABS # 0.02 K/uL (0-0.2); COMPLETE YES; EOS % 1.7 %; IG% 1.2 %; LYMPH % 1.7 %; LYMPH ABS # 0.27 K/uL (1.2-3.4); MEAN CELL VOLUME 98.7 fL (80-100); MEAN CORPUSCULAR HEMOGLOBIN 29.6 pg (25-34); MEAN PLATELET VOLUME 11.5 fL (7.4-10.4); NEUT % 90.3 %; PLATELET COUNT 216 K/uL (130-400); RED BLOOD COUNT 3.85 M/uL (4.7-6.1); WHITE BLOOD COUNT 15.71 K/uL (4.8-10.8)
--- NOTE | 2017-01-30 11:58 | EMERGENCY ROOM VISIT NOTE ---
History Report prepared by Soledad: Carli Alfaro Under the Supervision of: Dr. Hero Reynaga M.D. First contact with patient: 11:22 Chief Complaint: RESPIRATORY PROBLEMS Stated Complaint: CAN'T BREATHE History of Present Illness The patient is a 56 year old male who presents to the Emergency Room with complaints of constant respiratory problems for the past few days. The patient has a history of small cell lung carcinoma. He had his last chemotherapy treatment on December 14 and his last radiation treatment on December 19. The patient was recently diagnosed with pneumonia and has been receiving antibiotic injections for the past 5 days. He states that he feels better after the injections, but a few hours before the next injection, "when the antibiotics start to wear off" his symptoms return. He feels short of breath and this is worsened with exertion. He is not on any oxygen at home. The patient went to his PCP's office today. He was told that his lungs sounded clear, but his chest x-ray looked worse. He was sent to the ED for further evaluation. The patient feels like he has something stuck in his throat. He states that when he coughs something up be feels like he can breathe better. The patient rates his pain as a 4/10 in severity. He denies fevers and chest pain. He has a history of a clot in his left arm but is no longer on any blood thinners. The patient is scheduled for a PET scan and an MRI tomorrow. Source of History: patient Onset: a few days ago Position: chest (respiratory) Symptom Intensity: 4/10 Timing: constant Modifying Factors (Worsening): exertion Modifying Factors (Relieving): other (antibiotics) Associated Symptoms: + SOB, No fevers, No chest pain Review of Systems See HPI for pertinent positives & negatives. A total of 10 systems reviewed and were otherwise negative. Past Medical & Surgical Medical Problems: (1) Diabetes Surgical Problems: (1) History of back surgery Family History Diabetes mellitus Social History Smoking Status: Former Smoker Alcohol Use: none Marital Status: single Housing Status: lives alone Occupation Status: unemployed Current/Historical Medications Scheduled Ascorbic Acid (Vitamin C), 750 MG PO DAILY Aspirin (Aspirin Ec), 325 MG PO QAM Biotin (Biotin), 2 TAB PO DAILY Cholecalciferol (Vitamin D), 5,000 UNITS PO DAILY Fish Oil (Earp-3), 1 CAP PO DAILY Garlic (Garlic), 1,000 MG PO DAILY Insulin Isophane (Human) (Humulin N Kwikpen), 90 UNITS SQ HS Magnesium Oxide (Mg Supplement (Magnesium), 500 MG PO DAILY Methadone Hcl (Dolophine), 20 MG PO BID Phenazopyridine Hcl (Azo Standard Maximum Stre), 195 MG PO DAILY Potassium (Potassium), 99 MG PO TID Vitamin E (E-400), 400 MG PO TIDM Zolpidem Tartrate (Ambien), 10 MG PO HS Scheduled PRN Aspirin (Aspirin Ec), 650 MG PO TID PRN for DENTAL PAIN Diazepam (Valium), 4 MG PO BID PRN for Anxiety Dimenhydrinate (Dramamine), 50 MG PO Q4H PRN for Nausea Furosemide (Lasix), 20 MG PO DAILY PRN for SWELLING Ibuprofen (Ibuprofen), 200 MG PO UD PRN for Pain Insulin Human Regular (Humulin R), 1 DOSE SQ AC PRN for SLIDING SCALE Ondansetron Hcl (Zofran), 8 MG PO Q8 PRN for Nausea Prochlorperazine Maleate (Compazine), 10 MG PO Q6 PRN for Nausea Tramadol (Ultram), 100 MG PO Q4H PRN for Pain Allergies Coded Allergies: Amoxicillin (Verified Allergy, Intermediate, sob, 01/30/17) Atorvastatin (Verified Allergy, Intermediate, diarrhea, 01/30/17) Acetaminophen (Verified Allergy, Unknown, PT STATES "IT INTENSIFIES EFFECT ", 01/30/17) Clindamycin (Verified Allergy, Unknown, SHORTNESS OF BREATH, 01/30/17) Escitalopram (Verified Allergy, Unknown, GI UPSET, 01/30/17) Gabapentin (Verified Allergy, Unknown, CONSTIPATION, 01/30/17) Morphine (Verified Allergy, Unknown, DID NOT TOLERATE PER PT, 01/30/17) Propoxyphene (Verified Allergy, Unknown, "DID CRAZY THINGS", 01/30/17) Sitagliptin (Verified Allergy, Unknown, UNKNOWN RXN, 01/30/17) Adhesives (Verified Adverse Reaction, Unknown, "rips his skin off", ) Dextromethorphan (Unverified Adverse Reaction, Unknown, HARD TO BREATHE?, 01/30/17) Guaifenesin (Unverified Adverse Reaction, Unknown, HARD TO BREATHE?, ) Metformin (Verified Adverse Reaction, Unknown, PT STATES "DID NOT WORK", 01/30/17) Yellow Dye (Unverified Adverse Reaction, Unknown, HARD TO BREATHE?, ) Physical Exam Vital Signs Date Time Temp Pulse Resp B/P (MAP) Pulse Ox O2 Delivery O2 Flow Rate FiO2 01/30/17 13:17 93 18 146/83 93 Nasal Cannula 3.0 01/30/17 11:37 94 Nasal Cannula 4.0 01/30/17 11:33 106 01/30/17 11:32 94 Nasal Cannula 4.0 01/30/17 11:32 94 Nasal Cannula 4.0 01/30/17 11:17 36.6 100 18 125/73 79 Room Air Physical Exam GENERAL: Patient is in no acute distress. HEENT: No acute trauma, normocephalic atraumatic, mucous membranes moist, no nasal congestion, no scleral icterus. NECK: No stridor, no adenopathy, no meningismus, trachea is midline. LUNGS: Clear to auscultation bilaterally, no wheeze, no rhonchi, breath sounds equal. HEART: Without murmurs gallops or rubs, regular rate and rhythm. ABDOMEN: Soft, nontender, bowel sounds positive, no hernias, no peritonitis. EXTREMITIES: No cyanosis or edema, full range of motion of all the joints without pain or difficulty, no signs for acute trauma. NEUROLOGIC: Oriented x 3, no acute motor or sensory deficits, no focal weakness. SKIN: Pale, no rash, no jaundice, no diaphoresis. Medical Decision & Procedures ER Provider Diagnostic Interpretation: Radiology results as stated below per my review and radiologist interpretation: SOFT TISSUE NECK WITH HISTORY: 56 years-old Male throat closing sensation, sob acute shortness of breath with stroke pain. History of non-small cell lung carcinoma. COMPARISON: CTA chest of same day, PET CT 10/18/2016, chest CT 09/28/2016 TECHNIQUE: Multiple axial CT images of the soft tissues of the neck were obtained following the intravenous administration of 94 mL Optiray 320. A dose lowering technique was used consistent with the principals of BRANDON. FINDINGS: The nasopharynx, oropharynx and hypopharynx appear patent. There is mild debris within the vallecula. The epiglottis and aryepiglottic folds are unremarkable. True vocal cords appear normal and symmetric. Subglottic airway is patent. No retropharyngeal soft tissue swelling or abscess. There are a few calcifications of the bilateral palatine tonsils. No peritonsillar abscess or tonsillar enlargement identified. Thyroid is homogeneous. Partially imaged consolidation of the left greater than right lung apices noted, further described on comparison chest CT of same day. Paraseptal emphysematous changes noted. The parotid, some mandibular and sublingual glands are unremarkable. No definite adenopathy about the neck. Mildly prominent right paratracheal lymph node measures 9 mm on image 330 of series 4, nonspecific. The imaged intracranial structures demonstrate no acute abnormality. Multilevel facet arthrosis of the cervical spine. Mastoid air cells and middle ear cavities are clear. Paranasal sinuses are also generally clear. Multifocal predominantly is noted with dental caries. IMPRESSION: 1. No acute abnormality identified involving the soft tissues of the neck. No peritonsillar abscess or prevertebral soft tissue swelling. 2. Bilateral palatine tonsilliths 3. Bilateral apical consolidations, left greater than right are better evaluated on CTA chest of same day. The above report was generated using voice recognition software. It may contain grammatical, syntax or spelling errors. Electronically signed by: Rolan Hyde M.D. 01/30/2017 1:34 PM Dictated Date/Time: 01/30/2017 1:[address] ANGIOGRAM OF THE CHEST CLINICAL HISTORY: Dyspnea. Lung cancer. COMPARISON STUDY: Chest x-ray dated 01/30/2017. PET/CT dated 10/18/2016. TECHNIQUE: Following the IV administration of 94 cc of Optiray 320, CT angiogram of the chest was performed from the upper abdomen to the thoracic inlet utilizing the pulmonary embolus protocol. Images are reviewed in the axial, sagittal, and coronal planes. 3-D MIPS images are created and assessed. IV contrast was administered without complication. A dose lowering technique was utilized adhering to the principles of ALARA. CT DOSE: 1130.05 mGy.cm FINDINGS: Thyroid: Imaged portions of the thyroid gland are normal in size and attenuation. Thoracic aorta: The thoracic aorta is normal in caliber and demonstrates standard 3-vessel arch anatomy. No dissection is seen. Pulmonary vasculature: The main pulmonary arteries are dilated suggesting pulmonary artery hypertension. There are pulmonary emboli seen within the right lower lobe pulmonary artery. These extend into segmental and subsegmental branches. Pulmonary emboli are also identified within segmental and subsegmental branches in the left lower lobe as seen on image #140, and within subsegmental branches of the right upper lobe as seen on image number voiding 63. Heart: The heart is markedly enlarged and there is a small pericardial effusion. There are coronary artery calcifications. Lungs and pleural spaces: Emphysema is noted. There is extensive airspace consolidation seen throughout the left lung. Dense airspace consolidation is also seen at the right apex, with more patchy foci of consolidation seen in the right lower lung. The appearance suggests multifocal pneumonia. There is a trace left pleural effusion. The trachea and central airways are clear. The patient's left upper lobe pulmonary mass has modestly decreased in size from 10/18/2016. This now measures up to 1.1 cm in thickness as seen on image #249 (previously measured up to 1.7 cm). Smaller pulmonary lesions are secured by airspace consolidation. Mediastinum: Confluent mediastinal adenopathy in the anterior mediastinum and prevascular region has decreased in size from 10/18/2016. This now measures approximately 9 x 3 cm (producing measured 12 x 7.5 cm). Claudia: Confluent soft tissue in the left hilum likely represents adenopathy. No right hilar adenopathy is seen. Axillae: There is no axillary lymphadenopathy. Upper abdomen: There is a small hiatal hernia. A 1.4 cm left adrenal adenoma is unchanged. Partially visualized upper abdominal viscera is otherwise within normal limits. Skeletal structures: No lytic or blastic bony lesions are seen. IMPRESSION: 1. Bilateral pulmonary emboli as above, greatest in the right lower lobe. 2. Cardiomegaly and emphysema. 3. There is extensive airspace consolidation throughout the left lung as well as at the right apex. The appearance is most typical for multifocal pneumonia. Differential considerations include asymmetric pulmonary edema and/or pulmonary hemorrhage. Clinical correlation will be required and radiographic follow-up to resolution is recommended. 4. Small left pleural effusion. 5. A left upper lobe pulmonary lesion and confluent mediastinal lymphadenopathy have decreased in size from the 10/18/2016 PET examination. Smaller pulmonary lesions seen previously are obscured by airspace consolidation. 6. Additional findings as above. Electronically signed by: Hero Fair M.D. 01/30/2017 1:35 PM Dictated Date/Time: 01/30/2017 1:23 PM CHEST ONE VIEW PORTABLE CLINICAL HISTORY: 56 years-old Male presenting with EVALUATE RESPIRATORY DISTRESS.DYSPNEA. TECHNIQUE: Portable upright AP view of the chest was obtained. COMPARISON: 10/02/2016. FINDINGS: The cardiomediastinal silhouette is enlarged secondary to the presence of the multilobular anterior mediastinal mass better appreciated on CT from 09/28/2016. Significant interval opacification of the left lung diffusely area the left mainstem bronchus appears grossly patent. Suggestion of minimal opacity in the right upper lung. No large effusion or pneumothorax. Osseous structures normal. Upper abdomen normal. IMPRESSION: 1. Significant interval increase in diffuse left lung opacity and new minimal opacity in the right upper lung. This is concerning for progression of disease versus postobstructive pneumonia. Further evaluation with CT recommended. Electronically signed by: Octavio Torres M.D. 01/30/2017 11:53 AM Dictated Date/Time: 01/30/2017 11:49 AM Laboratory Results 01/30/17 11:35 Red Blood Count 3.85, Mean Corpuscular Volume 98.7, Mean Corpuscular Hemoglobin 29.6, Mean Corpuscular Hemoglobin Concent 30.0, Mean Platelet Volume 11.5, Neutrophils (%) (Auto) 90.3, Lymphocytes (%) (Auto) 1.7, Monocytes (%) (Auto) 5.0, Eosinophils (%) (Auto) 1.7, Basophils (%) (Auto) 0.1, Neutrophils # (Auto) 14.19, Lymphocytes # (Auto) 0.27, Monocytes # (Auto) 0.78, Eosinophils # (Auto) 0.26, Basophils # (Auto) 0.02 01/30/17 11:35 Test 01/30/17 11:35 White Blood Count 15.71 K/uL (4.8-10.8) Red Blood Count 3.85 M/uL (4.7-6.1) Hemoglobin 11.4 g/dL (14.0-18.0) Hematocrit 38.0 % (42-52) Mean Corpuscular Volume 98.7 fL (80-100) Mean Corpuscular Hemoglobin 29.6 pg (25-34) Mean Corpuscular Hemoglobin Concent 30.0 g/dl (32-36) Platelet Count 216 K/uL (130-400) Mean Platelet Volume 11.5 fL (7.4-10.4) Neutrophils (%) (Auto) 90.3 % Lymphocytes (%) (Auto) 1.7 % Monocytes (%) (Auto) 5.0 % Eosinophils (%) (Auto) 1.7 % Basophils (%) (Auto) 0.1 % Neutrophils # (Auto) 14.19 K/uL (1.4-6.5) Lymphocytes # (Auto) 0.27 K/uL (1.2-3.4) Monocytes # (Auto) 0.78 K/uL (0.11-0.59) Eosinophils # (Auto) 0.26 K/uL (0-0.5) Basophils # (Auto) 0.02 K/uL (0-0.2) RDW Standard Deviation 71.6 fL (36.4-46.3) RDW Coefficient of Variation 19.8 % (11.5-14.5) Immature Granulocyte % (Auto) 1.2 % Immature Granulocyte # (Auto) 0.19 K/uL (0.00-0.02) Nucleated RBC Absolute Count (auto) 0.16 K/uL (0-0) Nucleated Red Blood Cells % 1.0 % Prothrombin Time 11.3 SECONDS (9.0-12.0) Prothromb Time International Ratio 1.1 (0.9-1.1) Activated Partial Thromboplast Time 23.3 SECONDS (21.0-31.0) Partial Thromboplastin Ratio 0.9 Anion Gap 8.0 mmol/L (3-11) Est Creatinine Clear Calc Drug Dose 95.0 ml/min Estimated GFR () 70.4 Estimated GFR (Non- 60.7 BUN/Creatinine Ratio 22.7 (10-20) Lactic Acid Level 2.0 mmol/L (0.4-2.0) Calcium Level 9.7 mg/dl (8.5-10.1) Magnesium Level 2.0 mg/dl (1.8-2.4) Total Bilirubin 0.2 mg/dl (0.2-1) Aspartate Amino Transf (AST/SGOT) 46 U/L (15-37) Alanine Aminotransferase (ALT/SGPT) 21 U/L (12-78) Alkaline Phosphatase 96 U/L (45-117) Troponin I < 0.015 ng/ml (0-0.045) Total Protein 7.6 gm/dl (6.4-8.2) Albumin 2.6 gm/dl (3.4-5.0) Globulin 5.0 gm/dl (2.5-4.0) Albumin/Globulin Ratio 0.5 (0.9-2) Laboratory results reviewed by me. ECG Indication: SOB/dyspnea Rate (beats per minute): 100 Rhythm: normal sinus Findings: no acute ischemic change, no ectopy ED Course 1122: The patient was evaluated in room B2. A complete history and physical exam was performed. 1407: I reassessed the patient at this time. He is feeling better and resting comfortably. I discussed the results and treatment plan with the patient. I answered all pertaining questions that he had. He expressed understanding and verbalized agreement. 1410: Levofloxacin 750 mg IV 1413: I spoke with Amy Santos PA-C. We discussed the patient's case. The patient will be evaluated by the [facility] for further management. 1503: Ordered Lovenox subcutaneous, 1 mg/kg. Medical Decision The patient is a 56 year old male who presents to the ED with complaints of shortness of breath. Differential diagnoses considered include PE, pneumonia, heart failure, failed outpatient treatment, airway narrowing, neck mass, worsening cancer, radiation scarring, anemia, MS, electrolyte imbalance. There is a moderate leukocytosis which would be consistent with infection. No concerning anemia. No significant electrolyte abnormality, kidney failure or hepatitis. There is no coagulopathy. EKG shows a normal sinus rhythm, no acute ischemia. Cardiac enzyme testing times one is not consistent with acute cardiac injury. Chest x-ray shows significant pulmonary changes on the left with some subtle changes on the right-these are consistent with pneumonia. Chest CT shows bilateral PEs as well as pneumonia, the pneumonia was mostly on the left, some on the right. Neck soft tissue CT does not show any mass, no airway compromise. Lactic acid level is not elevated making a sepsis less likely. The patient was maintained on supplemental O2. He received IV Levaquin as antibiotic coverage. He does require a hospital stay. I spoke to case management, I talked to the patient. I talked to the on-call hospitalist. I suggested IV heparin, however, the hospital team requested Lovenox subcutaneous , this was ordered. Medication Reconcilliation Current Medication List: was personally reviewed by me Blood Pressure Screening Patient's blood pressure: Elevated blood pressure Blood pressure disposition: Elevated BP felt to be situational Consults Time Called: 1409 Consulting Physician: Amy Santos PA-C Returned Call: 1419 I spoke with Amy Santos PA-C. We discussed the patient's case. The patient will be evaluated by the [facility] for further management. Impression Primary Impression: Bilateral pulmonary embolism Additional Impressions: Pneumonia Hypoxia Lung cancer Critical Care I have personally spent greater than 36 minutes of critical care time in the direct management of this patient. This includes bedside care, interpretation of diagnostic studies, and testing, discussion with consultants, patient, and family members, and other required patient management activities. This 36 minutes is in excess of all separately billable procedures. Scribe Attestation The scribe's documentation has been prepared under my direction and personally reviewed by me in its entirety. I confirm that the note above accurately reflects all work, treatment, procedures, and medical decision making performed by me. Departure Information Dispostion Being Evaluated By Hospitalist Referrals No Doctor, Assigned (PCP) Patient Instructions My [facility] Problem Qualifiers
[2017-01-30 12:07] LABS: INR 1.1 (0.9-1.1); PARTIAL THROMBOPLASTIN RATIO 0.9; PROTHROMBIN TIME (PATIENT) 11.3 SECONDS (9.0-12.0)
[2017-01-30 12:15] LABS: ALT/SGPT 21 U/L (12-78); AST/SGOT 46 U/L (15-37); BLOOD UREA NITROGEN 30 mg/dl (7-18); BUN/CREATININE RATIO 22.7 (10-20); CALCIUM 9.7 mg/dl (8.5-10.1); CARBON DIOXIDE 28 mmol/L (21-32); CHLORIDE 102 mmol/L (98-107); CREATININE 1.32 mg/dl (0.60-1.40); GLUCOSE 180 mg/dl (70-99); POTASSIUM 4.3 mmol/L (3.5-5.1); SODIUM 138 mmol/L (136-145)
[2017-01-30 12:19] LABS: ALB/GLOB RATIO 0.5 (0.9-2); ALKALINE PHOSPHATASE 96 U/L (45-117)
--- NOTE | 2017-01-30 13:35 | DIAGNOSTIC IMAGING REPORT ---
SOFT TISSUE NECK WITH HISTORY: 56 years-old Male throat closing sensation, sob acute shortness of breath with stroke pain. History of non-small cell lung carcinoma. COMPARISON: CTA chest of same day, PET CT 10/18/2016, chest CT 09/28/2016 TECHNIQUE: Multiple axial CT images of the soft tissues of the neck were obtained following the intravenous administration of 94 mL Optiray 320. A dose lowering technique was used consistent with the principals of ALARA. FINDINGS: The nasopharynx, oropharynx and hypopharynx appear patent. There is mild debris within the vallecula. The epiglottis and aryepiglottic folds are unremarkable. True vocal cords appear normal and symmetric. Subglottic airway is patent. No retropharyngeal soft tissue swelling or abscess. There are a few calcifications of the bilateral palatine tonsils. No peritonsillar abscess or tonsillar enlargement identified. Thyroid is homogeneous. Partially imaged consolidation of the left greater than right lung apices noted, further described on comparison chest CT of same day. Paraseptal emphysematous changes noted. The parotid, some mandibular and sublingual glands are unremarkable. No definite adenopathy about the neck. Mildly prominent right paratracheal lymph node measures 9 mm on image 330 of series 4, nonspecific. The imaged intracranial structures demonstrate no acute abnormality. Multilevel facet arthrosis of the cervical spine. Mastoid air cells and middle ear cavities are clear. Paranasal sinuses are also generally clear. Multifocal predominantly is noted with dental caries. IMPRESSION: 1. No acute abnormality identified involving the soft tissues of the neck. No peritonsillar abscess or prevertebral soft tissue swelling. 2. Bilateral palatine tonsilliths 3. Bilateral apical consolidations, left greater than right are better evaluated on CTA chest of same day. The above report was generated using voice recognition software. It may contain grammatical, syntax or spelling errors. Electronically signed by: Rolan Hyde M.D. 01/30/2017 1:34 PM Dictated Date/Time: 01/30/2017 1:24 PM
--- NOTE | 2017-01-30 13:36 | DIAGNOSTIC IMAGING REPORT ---
CT ANGIOGRAM OF THE CHEST CLINICAL HISTORY: Dyspnea. Lung cancer. COMPARISON STUDY: Chest x-ray dated 01/30/2017. PET/CT dated 10/18/2016. TECHNIQUE: Following the IV administration of 94 cc of Optiray 320, CT angiogram of the chest was performed from the upper abdomen to the thoracic inlet utilizing the pulmonary embolus protocol. Images are reviewed in the axial, sagittal, and coronal planes. 3-D MIPS images are created and assessed. IV contrast was administered without complication. A dose lowering technique was utilized adhering to the principles of ALARA. CT DOSE: 1130.05 mGy.cm FINDINGS: Thyroid: Imaged portions of the thyroid gland are normal in size and attenuation. Thoracic aorta: The thoracic aorta is normal in caliber and demonstrates standard 3-vessel arch anatomy. No dissection is seen. Pulmonary vasculature: The main pulmonary arteries are dilated suggesting pulmonary artery hypertension. There are pulmonary emboli seen within the right lower lobe pulmonary artery. These extend into segmental and subsegmental branches. Pulmonary emboli are also identified within segmental and subsegmental branches in the left lower lobe as seen on image #140, and within subsegmental branches of the right upper lobe as seen on image number voiding 63. Heart: The heart is markedly enlarged and there is a small pericardial effusion. There are coronary artery calcifications. Lungs and pleural spaces: Emphysema is noted. There is extensive airspace consolidation seen throughout the left lung. Dense airspace consolidation is also seen at the right apex, with more patchy foci of consolidation seen in the right lower lung. The appearance suggests multifocal pneumonia. There is a trace left pleural effusion. The trachea and central airways are clear. The patient's left upper lobe pulmonary mass has modestly decreased in size from 10/18/2016. This now measures up to 1.1 cm in thickness as seen on image #249 (previously measured up to 1.7 cm). Smaller pulmonary lesions are secured by airspace consolidation. Mediastinum: Confluent mediastinal adenopathy in the anterior mediastinum and prevascular region has decreased in size from 10/18/2016. This now measures approximately 9 x 3 cm (producing measured 12 x 7.5 cm). Claudia: Confluent soft tissue in the left hilum likely represents adenopathy. No right hilar adenopathy is seen. Axillae: There is no axillary lymphadenopathy. Upper abdomen: There is a small hiatal hernia. A 1.4 cm left adrenal adenoma is unchanged. Partially visualized upper abdominal viscera is otherwise within normal limits. Skeletal structures: No lytic or blastic bony lesions are seen. IMPRESSION: 1. Bilateral pulmonary emboli as above, greatest in the right lower lobe. 2. Cardiomegaly and emphysema. 3. There is extensive airspace consolidation throughout the left lung as well as at the right apex. The appearance is most typical for multifocal pneumonia. Differential considerations include asymmetric pulmonary edema and/or pulmonary hemorrhage. Clinical correlation will be required and radiographic follow-up to resolution is recommended. 4. Small left pleural effusion. 5. A left upper lobe pulmonary lesion and confluent mediastinal lymphadenopathy have decreased in size from the 10/18/2016 PET examination. Smaller pulmonary lesions seen previously are obscured by airspace consolidation. 6. Additional findings as above. Electronically signed by: Hero Fair M.D. 01/30/2017 1:35 PM Dictated Date/Time: 01/30/2017 1:23 PM
[2017-01-30] MEDS ORDERED: [UNRECOGNIZED DRUG - CODE] PO (13:37)
[2017-01-30] MEDS ORDERED: POTA99TA PO (13:37)
[2017-01-30] MEDS ORDERED: IBUP-1105 PO (13:41)
[2017-01-30] MEDS ORDERED: LEVAQUIN 750MG / 150ML D5W IV STA (14:10)
[2017-01-30] MEDS ORDERED: ENOXAPARIN 1 MG/KG SQ STA (15:01)
[2017-01-30] MEDS ORDERED: ENOXAPARIN 150 MG/1ML SYR SQ STA (15:04)
[2017-01-30] MEDS ORDERED: GLUCOSE 10 TABS/TUBE PO PRN (15:30)
[2017-01-30] MEDS ORDERED: GLUCAGON FOR INJ 1 MG VIAL SQ PRN (15:30)
[2017-01-30] MEDS ORDERED: DEXTROSE 50% 50 ML SYR IV PRN (15:30)
[2017-01-30] MEDS ORDERED: LEVALBUTEROL 0.31MG/3 ML VIAL INH PRN (15:30)
[2017-01-30] MEDS ORDERED: ONDANSETRON INJ 2 MG/ML 2 ML VIAL IV PRN (15:30)
[2017-01-30] MEDS ORDERED: GLUCOSE 40% GEL 15 GM TUBE PO PRN (15:30)
[2017-01-30] MEDS ORDERED: TRAM-10 PO (15:34)
[2017-01-30 15:38] VITALS: BMI 37.4
[2017-01-30] MEDS ORDERED: IPRA1AER2 INH (15:40)
[2017-01-30] MEDS ORDERED: PROCHLORPERAZINE MALEATE 10 MG TAB PO PRN (15:45)
[2017-01-30] MEDS ORDERED: DIAZEPAM 2MG TAB PO PRN (15:45)
[2017-01-30] MEDS ORDERED: CEFEPIME CONSULT ACTIVE PRN ×2 (15:47)
[2017-01-30] MEDS ORDERED: CEFEPIME IV 2,000 MG in SYRINGE 7.5 ML IV STA (15:48)
[2017-01-30] MEDS ORDERED: METHADONE HCL 10 MG TAB PO SCH (16:00)
[2017-01-30 17:03] VITALS: BP 145/80; PULSE 97; TEMP 36.4; O2SAT 94
[2017-01-30] MEDS: CEFEPIME IV 2,000 MG in SYRINGE 7.5 ML IV SCH ×2 (17:11→23:33)
[2017-01-30] MEDS: METHADONE HCL 10 MG TAB PO SCH ×2 (19:00→23:32)
[2017-01-30] MEDS: PATIENT'S OWN CONTROLLED MED PO SCH ×2 (19:00→23:00)
--- NOTE | 2017-01-30 19:15 | History and Physical ---
History & Physical Date of Service Jan 30, 2017. History & Physical This is a 56 year old male with a PMH of small cell lung CA - has undergone chemo/radiation, hx. of upper extremity DVT with recent cessation of Lovenox, insulin dependent DM2, diabetic polyneuropathy presents secondary to hypoxia and failed outpatient therapy for pneumonia. He states that he was seen by hematology-oncology and primary care physician and was getting antibiotics as an outpatient (Levaquin and an IM injection that he cannot recall the name of). Was sent over when he was still hypoxic - had imaging done in the ER, found to have bilateral PEs as well as multifocal pneumonia. VITALS: Last Vital Signs Documentation Date Time Temp Pulse Resp B/P (MAP) Pulse Ox O2 Delivery O2 Flow Rate FiO2 01/30/17 17:03 36.4 97 18 145/80 (101) 94 3.0 01/30/17 16:24 GEN: no acute distress, on oxygen at rest HEENT: NCAT CVS: +S1, S2, RRR LUNGS: CTA b/l, no wheezing ABD: soft, NT/ND NEURO: no focal deficits Bilateral PE should be on Lovenox for life (has had previous RUQ DVT) refusing to use Lovenox in the abdomen, demands that he be allowed to use it in the R LE will okay this for a few doses and consult Hem/Onc wean O2, ambulate as tolerated Multifocal Pneumonia Unsure if non-compliant as outpatient with Levaquin, but we will switch to Cefepime and Vanco O2 for now monitor vitals, monitor CBC Insulin Dependent DM2 patient uses a high dose of Humalin - he is refusing any other types of insulin , so we will allow him to use his home dose Chronic Back Pain sees pain management for methadone wants to use his methadone from home - pharmacy aware and are working on ID'ing his pills
[2017-01-30] MEDS: TRAMADOL HCL 50 MG TAB PO PRN (19:47)
[2017-01-30 20:00] VITALS: O2SAT 90
--- NOTE | 2017-01-30 20:04 | History and Physical ---
History & Physical Date & Time of Service: Jan 30, 2017 at 19:28 Chief Complaint: Bilateral Pulmonary Embolism, Pneumonia Primary Care Physician: Efraín Zamudio III, M.D. History of Present Illness Source: patient, clinic records, hospital records This is a 56yo M with a PMH of small cell lung cancer (completed chemo/ radiation in Nov), h/o L UE DVT (with recent cessation of Lovenox), DM II and chronic back pain who presents after failing out-patient treatment for PNA. Patient received 5 days of treatment with IM rocephin, prednisone and combivent inhaler and when he returned for follow-up with PCP today, was found to be hypoxic and was sent to the ER for further evaluation. Repeat XR show a significant interval increase in L lung as well as a new opacity in the R lung. Chest/thorax CTA shows bilateral PEs. Patient had been on lovenox until a week ago, when he decided to stop it due to experiencing fevers and cold sweats. Had been injecting lovenox into his thighs due to the pain he experienced when injecting his stomach. Symptoms have improved since then, per patient. Unclear in chart review whether patient discussed cessation of lovenox with his oncologist, Dr. Gale. Currently endorsing a productive cough and SOB. Denies fever, chills, wheezing, CP, abd pain, nausea, vomiting, calf pain or swelling of any extremities. Past Medical/Surgical History Medical Problems: (1) Diabetes Status: Chronic Surgical Problems: (1) History of back surgery Status: Resolved Family History Diabetes mellitus Social History Smoking Status: Former Smoker Marital Status: single Occupational Status: unemployed Multi-Drug Resistant Organisms History of MDRO: No Allergies Coded Allergies: Amoxicillin (Verified Allergy, Intermediate, sob, 01/30/17) PER CONVERSATION WITH ANSELMO AQUINO PA-C - SHE SPOKE WITH PATIENT WHO STATES THAT THIS IS NOT A TRUE ALLERGY HE HAS TOLERATED PENCILLINS IN THE PAST. TOLERATES ROCEPHIN X 5 DOSES AN OUTPATIENT. Atorvastatin (Verified Allergy, Intermediate, diarrhea, 01/30/17) Acetaminophen (Verified Allergy, Unknown, PT STATES "IT INTENSIFIES EFFECT ", 01/30/17) Clindamycin (Verified Allergy, Unknown, SHORTNESS OF BREATH, 01/30/17) Escitalopram (Verified Allergy, Unknown, GI UPSET, 01/30/17) Gabapentin (Verified Allergy, Unknown, CONSTIPATION, 01/30/17) Morphine (Verified Allergy, Unknown, DID NOT TOLERATE PER PT, 01/30/17) Propoxyphene (Verified Allergy, Unknown, "DID CRAZY THINGS", 01/30/17) Sitagliptin (Verified Allergy, Unknown, UNKNOWN RXN, 01/30/17) Adhesives (Verified Adverse Reaction, Unknown, "rips his skin off", ) Dextromethorphan (Unverified Adverse Reaction, Unknown, HARD TO BREATHE?, 01/30/17) Guaifenesin (Unverified Adverse Reaction, Unknown, HARD TO BREATHE?, ) Metformin (Verified Adverse Reaction, Unknown, PT STATES "DID NOT WORK", 01/30/17) Yellow Dye (Unverified Adverse Reaction, Unknown, HARD TO BREATHE?, ) Home Medications Scheduled Aspirin (Aspirin Ec), 325 MG PO QAM Cholecalciferol (Vitamin D), 5,000 UNITS PO DAILY Insulin Isophane (Human) (Humulin N Kwikpen), 90 UNITS SQ HS Ipratropium-Albuterol (Combivent Respimat), 1 PUFFS INH QID Methadone Hcl (Dolophine), 20 MG PO BID Phenazopyridine Hcl (Azo Standard Maximum Stre), 195 MG PO DAILY Potassium (Potassium), 99 MG PO TID Vitamin E (E-400), 400 MG PO TIDM Zolpidem Tartrate (Ambien), 10 MG PO HS Scheduled PRN Diazepam (Valium), 4 MG PO BID PRN for Anxiety Dimenhydrinate (Dramamine), 50 MG PO Q4H PRN for Nausea Furosemide (Lasix), 20 MG PO DAILY PRN for SWELLING Ibuprofen (Ibuprofen), 200 MG PO UD PRN for Pain Insulin Human Regular (Humulin R), 1 DOSE SQ AC PRN for SLIDING SCALE Ondansetron Hcl (Zofran), 8 MG PO Q8 PRN for Nausea Prochlorperazine Maleate (Compazine), 10 MG PO Q6 PRN for Nausea Tramadol (Ultram), 50 MG PO Q6H PRN for Pain Review of Systems Ten systems reviewed and negative except as noted in the HPI. Physical Exam Vital Signs Date Time Temp Pulse Resp B/P (MAP) Pulse Ox O2 Delivery O2 Flow Rate FiO2 01/30/17 17:03 36.4 97 18 145/80 (101) 94 3.0 01/30/17 16:24 91 20 129/83 94 01/30/17 16:16 91 20 129/83 94 Nasal Cannula 3.0 01/30/17 15:38 Nasal Cannula 3.0 01/30/17 15:02 93 22 142/81 95 Nasal Cannula 3.0 01/30/17 13:17 93 18 146/83 93 Nasal Cannula 3.0 01/30/17 11:37 94 Nasal Cannula 4.0 01/30/17 11:33 106 01/30/17 11:32 94 Nasal Cannula 4.0 01/30/17 11:32 94 Nasal Cannula 4.0 01/30/17 11:17 36.6 100 18 125/73 79 Room Air General Appearance: no apparent distress, + obese Head: normocephalic, atraumatic Eyes: normal inspection, PERRL, EOMI, sclerae normal (conjunctiva normal ) ENT: normal ENT inspection, hearing grossly normal, pharynx normal (Moist mucous membranes) Neck: supple, no adenopathy, trachea midline Respiratory/Chest: chest non-tender, no respiratory distress (breathing comfortably on O2), no accessory muscle use, + crackles ([place] at L lung base. Otherwise clear to auscultation ) Cardiovascular: regular rate, rhythm, no murmur Abdomen/GI: normal bowel sounds, non tender, soft, no organomegaly Back: normal inspection Extremities/Musculoskelatal: normal inspection, no calf tenderness, no pedal edema Neurologic/Psych: no motor/sensory deficits, alert, oriented x 3 Skin: normal color, warm/dry, no rash Diagnostics Laboratory Results Results Past 24 Hours Test 01/30/17 11:35 01/30/17 17:23 Range/Units White Blood Count 15.71 4.8-10.8 K/uL Red Blood Count 3.85 4.7-6.1 M/uL Hemoglobin 11.4 14.0-18.0 g/dL Hematocrit 38.0 42-52 % Mean Corpuscular Volume 98.7 80-100 fL Mean Corpuscular Hemoglobin 29.6 25-34 pg Mean Corpuscular Hemoglobin Concent 30.0 32-36 g/dl Platelet Count 216 130-400 K/uL Mean Platelet Volume 11.5 7.4-10.4 fL Neutrophils (%) (Auto) 90.3 % Lymphocytes (%) (Auto) 1.7 % Monocytes (%) (Auto) 5.0 % Eosinophils (%) (Auto) 1.7 % Basophils (%) (Auto) 0.1 % Neutrophils # (Auto) 14.19 1.4-6.5 K/uL Lymphocytes # (Auto) 0.27 1.2-3.4 K/uL Monocytes # (Auto) 0.78 0.11-0.59 K/uL Eosinophils # (Auto) 0.26 0-0.5 K/uL Basophils # (Auto) 0.02 0-0.2 K/uL RDW Standard Deviation 71.6 36.4-46.3 fL RDW Coefficient of Variation 19.8 11.5-14.5 % Immature Granulocyte % (Auto) 1.2 % Immature Granulocyte # (Auto) 0.19 0.00-0.02 K/uL Nucleated RBC Absolute Count (auto) 0.16 0-0 K/uL Nucleated Red Blood Cells % 1.0 % Prothrombin Time 11.3 9.0-12.0 SECONDS Prothromb Time International Ratio 1.1 0.9-1.1 Activated Partial Thromboplast Time 23.3 21.0-31.0 SECONDS Partial Thromboplastin Ratio 0.9 Sodium Level 138 136-145 mmol/L Potassium Level 4.3 3.5-5.1 mmol/L Chloride Level 102 98-107 mmol/L Carbon Dioxide Level 28 21-32 mmol/L Anion Gap 8.0 3-11 mmol/L Blood Urea Nitrogen 30 7-18 mg/dl Creatinine 1.32 0.60-1.40 mg/dl Est Creatinine Clear Calc Drug Dose 95.0 ml/min Estimated GFR () 70.4 Estimated GFR (Non- 60.7 BUN/Creatinine Ratio 22.7 10-20 Random Glucose 180 70-99 mg/dl Lactic Acid Level 2.0 0.4-2.0 mmol/L Calcium Level 9.7 8.5-10.1 mg/dl Magnesium Level 2.0 1.8-2.4 mg/dl Total Bilirubin 0.2 0.2-1 mg/dl Aspartate Amino Transf (AST/SGOT) 46 15-37 U/L Alanine Aminotransferase (ALT/SGPT) 21 12-78 U/L Alkaline Phosphatase 96 45-117 U/L Troponin I < 0.015 0-0.045 ng/ml Total Protein 7.6 6.4-8.2 gm/dl Albumin 2.6 3.4-5.0 gm/dl Globulin 5.0 2.5-4.0 gm/dl Albumin/Globulin Ratio 0.5 0.9-2 Hepatitis C Antibody Screen NEG NEG Bedside Glucose 247 70-99 mg/dl Microbiology Results 01/30/17 Blood Culture, Received Pending 01/30/17 Blood Culture, Received Pending Diagnostic Radiology CXR: IMPRESSION: Significant interval increase in diffuse left lung opacity and new minimal opacity in the right upper lung. This is concerning for progression of disease versus postobstructive pneumonia. Further evaluation with CT recommended. Chest/thorax CTA: IMPRESSION: 1. Bilateral pulmonary emboli as above, greatest in the right lower lobe. 2. Cardiomegaly and emphysema. 3. There is extensive airspace consolidation throughout the left lung as well as at the right apex. The appearance is most typical for multifocal pneumonia. Differential considerations include asymmetric pulmonary edema and/or pulmonary hemorrhage. Clinical correlation will be required and radiographic follow-up to resolution is recommended. 4. Small left pleural effusion. 5. A left upper lobe pulmonary lesion and confluent mediastinal lymphadenopathy have decreased in size from the 10/18/2016 PET examination. Smaller pulmonary lesions seen previously are obscured by airspace consolidation. 6. Additional findings as above. Soft tissue neck CT: IMPRESSION: 1. No acute abnormality identified involving the soft tissues of the neck. No peritonsillar abscess or prevertebral soft tissue swelling. 2. Bilateral palatine tonsilliths 3. Bilateral apical consolidations, left greater than right are better evaluated on CTA chest of same day. Impression Assessment and Plan This is a 56yo M with a PMH of small cell lung cancer (completed chemo/ radiation in Nov), h/o L UE DVT (with recent cessation of Lovenox), DM II and chronic back pain who presents after failing out-patient treatment for PNA. Bilateral PE: -Chest/thorax CTA with bilateral PE (greatest in RLL) -Refuses to use Lovenox in the abdomen; wants to inject in his thigh -Also refuses to use IV heparin -Will allow administration in thigh for a few doses -Consult heme/onc for further recommendation Multifocal PNA: -Chest/thorax CTA with extensive airspace consolidation throughout the left lung as well as at the right apex. The appearance is most typical for multifocal pneumonia -Failed outpatient course of IM rocephin, prednisone and combivent -Cefepime and vanc initiated -Blood cultures pending -Monitor CBC, vitals Hypoxia 2/2 PNA, bilateral PE: -Not on home O2 but requiring 3L for saturation above 90% -Continue supplemental O2 while hypoxic; wean as tolerated DM II: -Insulin dependent -Last hgb a1c of 6.2 in July 2016 -Recheck hgb a1c -Per patient, uses a high dose of Humulin at home (between 70-90 U in additional to sliding scale) -States that some days he does not take any insulin -Refusing to use any other type of insulin besides his home dose -Patient to use home dose with help with administration from nursing staff -BSG checks AC HS Anxiety: -Per patient, becomes very anxious when hospitalized -Continue home dose valium BID, ambien at night -Has asked for an increased dose -Plan to clinically assess anxiety and increase if appropriate Chronic back pain: -Sees pain management for management for methadone -Currently on 2 10mg tabs BID but prefers to take 10mg QID with meals -Has been asking to use his methadone from home (not what is on formulary) -Pharmacy is aware; working on pill identification Small cell lung cancer: -Completed chemo/radiation treatment in Nov -Still follows with oncologist Dr. Gale -Had PET scan scheduled this week; will reschedule DVT Ppx: On Lovenox for PE treatment Code status: FULL PCP: Lizz Dispo: SW consulted to help with discharge placement. Patient seen in collaboration with Dr. Maxwell. Please see addendum. Level of Care Telemetry Advanced Directives Existing Living Will: Yes Existing Power of Meat Stock Clerk: Yes Resuscitation Status FULL RESUSCITATION VTE Prophylaxis VTE Risk Assessment Done? Y/N: Yes Risk Level: High Given or contraindicated: Enoxaparin (Lovenox)SQ
[2017-01-30 20:09] VITALS: BP 144/80; PULSE 92; TEMP 36.6; O2SAT 90
[2017-01-30] MEDS ORDERED: PHARMACY GLYCEMIC MGMT CONSULT PRN (20:51)
[2017-01-30] MEDS ORDERED: ENOXAPARIN 1 MG/KG SQ SCH (21:00)
[2017-01-30] MEDS ORDERED: INSULIN ASPART 100 UNITS/ML 3 ML PEN SC SCH (21:00)
[2017-01-30] MEDS ORDERED: INSU1INJ23 SQ (21:29)
[2017-01-30] MEDS ORDERED: NovoLIN-N (NPH) PER UNIT CHARGE SQ SCH (22:00)
[2017-01-30] MEDS: INSULIN HUMAN REGULAR SC SCH (22:37)
[2017-01-30] MEDS: ENOXAPARIN 150 MG/1ML SYR SQ SCH (22:41)
[2017-01-30 23:10] VITALS: BP 130/75; PULSE 94; TEMP 36.4; O2SAT 91
[2017-01-30] MEDS: ZOLPIDEM TARTRATE 10 MG TAB PO SCH (23:32)
[2017-01-31] VITALS (8 sets, daily range): BP systolic 120–159; BP diastolic 72–80; PULSE 90–118; TEMP 36.4–37.1; O2SAT 88–95; Ht 190.5 cm; Wt 133.2 kg
[2017-01-31] MEDS ORDERED: CEFEPIME IV 2,000 MG in DEXTROSE 5% 100ML 100 ML IV SCH ×2
[2017-01-31] MEDS ORDERED: NURSING VERBAL MED ORDER ONE ×2 (00:15→07:30)
[2017-01-31] MEDS ORDERED: INSULIN HUMAN REGULAR SC SCH (01:00)
[2017-01-31] MEDS: TRAMADOL HCL 50 MG TAB PO PRN ×3 (01:38→15:37)
[2017-01-31] MEDS: OXYMETAZOLINE HCL 0.05% NA SPR 15 ML BTL NAE PRN ×2 (01:54→23:56)
[2017-01-31 07:25] LABS: HEMATOCRIT 32.6 % (42-52); MEAN CELL VOLUME 98.5 fL (80-100); MEAN CORPUSCULAR HEMOGLOBIN 29.9 pg (25-34); MEAN CORPUSCULAR HGB CONC 30.4 g/dl (32-36); MEAN PLATELET VOLUME 10.8 fL (7.4-10.4); PLATELET COUNT 182 K/uL (130-400); RED BLOOD COUNT 3.31 M/uL (4.7-6.1); WHITE BLOOD COUNT 10.92 K/uL (4.8-10.8)
--- NOTE | 2017-01-31 07:46 | Clinical Documentation Query ---
CLINICAL DOCUMENTATION QUERY Dr. WOODSON, In your clinical opinion is this patient being managed for: ( x ) possible/suspected gram negative pneumonia ( ) Not Agree ( ) Other explanation of clinical findings (Please Explain) ( ) Unable to determine (Please Define) ( ) Need to Discuss The medical record reflects the following clinical findings, treatment, and risk factors. Clinical Indicators: 56 yo male presenting with constant respiratory problems. Was being treated as an outpatient with antibiotics however CXR showed worsening. Tachycardic with HR 100 and hypoxic 79% on RA. WBC 15.71, neut 14.19 Treatment: blood cultures, IV cefepime, po levaquin, O2 support, xopenex prn Risk Factors:lung cancer, failed outpatient pneumonia treatment, DM, immunocompromised Please clarify and document your clinical opinion in the progress notes and discharge summary. Terms such as "probable", "suspected", "likely", "questionable", "possible", or "still to be ruled out" are acceptable. IF IN AGREEMENT, YOU MUST DOCUMENT ABOVE DIAGNOSTIC STATEMENT IN DAILY PROGRESS NOTES AND DISCHARGE SUMMARY. This document is not part of the patient's record. Thank You, Latonia Callahan RN [phone]
[2017-01-31] MEDS: METHADONE HCL 10 MG TAB PO SCH ×4 (07:52→22:21)
[2017-01-31] MEDS: CEFEPIME IV 2,000 MG in SYRINGE 7.5 ML IV SCH ×3 (07:53→23:56)
[2017-01-31] MEDS: ASPIRIN 325 MG ECTAB PO SCH (07:54)
[2017-01-31] MEDS: CHOLECALCIFEROL 1000 INTER.UNIT TAB PO SCH (07:54)
[2017-01-31] MEDS: INSULIN HUMAN REGULAR SC SCH ×3 (08:00→16:30)
[2017-01-31 08:17] LABS: BUN/CREATININE RATIO 28.5 (10-20); CALCIUM 9.4 mg/dl (8.5-10.1); POTASSIUM 3.8 mmol/L (3.5-5.1)
[2017-01-31 08:35] LABS: ESTIMATED AVERAGE GLUCOSE 137 mg/dl; HA1C FLAG Normal (Normal)
[2017-01-31] MEDS: LEVOFLOXACIN 750 MG TAB PO SCH (10:51)
[2017-01-31] MEDS: ENOXAPARIN 150 MG/1ML SYR SQ SCH ×2 (10:52→22:20)
--- NOTE | 2017-01-31 12:55 | Pharmacy Progress Note ---
Glycemic Control Intl Consult Date of Service Jan 31, 2017. Scope Glycemic Pharmacist consulted by Dr Maxwell on 01/30/17 for glycemic control and to write orders per [facility] inpatient glycemic control protocol Objective Weight (Kilograms): 134.400 Accuchecks BSG (last 24hrs): Test 01/30/17 17:23 01/30/17 20:22 01/31/17 00:45 01/31/17 07:02 Bedside Glucose 247 mg/dl (70-99) 228 mg/dl (70-99) 187 mg/dl (70-99) Random Glucose 50 mg/dl (70-99) Test 01/31/17 07:39 01/31/17 11:44 Bedside Glucose 66 mg/dl (70-99) 83 mg/dl (70-99) Laboratory Data (last 24hrs) Test 01/31/17 07:02 Anion Gap 7.0 mmol/L BUN/Creatinine Ratio 28.5 Blood Urea Nitrogen 28 mg/dl Creatinine 1.00 mg/dl Hemoglobin A1c 6.4 % Potassium Level 3.8 mmol/L Sodium Level 137 mmol/L White Blood Count 10.92 K/uL HbA1c Test 01/31/17 07:02 Hemoglobin A1c 6.4 % (4.5-5.6) H Recent Pertinent Medications Outpatient Anti-diabetic Regimen: * NPH 70-90 units SQ BID * Regular insulin 20 units with meals & HS snack Assessment & Plan ASSESSMENT: * 56yo T2DM male with well controlled diabetes per recent A1c. * Interviewed patient today and discussed outpatient regimen and insulin dosing. Pt has multiple allergies to antidiabetic medications and only tolerates NPH/Regular. He was refusing the hospital insulin but is now willing to take it as long as it is NPH or Regular (not NovoLog or Lantus). Pt follows with [facility] Endocrinology. * Pt typically takes NPH 70 units SQ BID but "does his own thing" and skips if his BSG is low. * Pt had a LOW BGS this AM which he attributes to the 3 units of regular insulin that he received at 0300 to cover a BSG of 187mg/dl. * Anticipating that patient will require significantly less insulin while admitted secondary to controlled diet/CHO. Will decrease outpatient regimen slightly to prevent another low. * Oh note, patient may refuse or dictate his own insulin doses differing from the orders below since he is quite particular about what he takes/requires. PLAN FOR INPATIENT GLYCEMIC CONTROL: * Basal insulin * NPH 0-60 units SQ BID - dosing based on BSG since true needs are unknown * BSG < 110 mg/dl --> 0 units * BSG 110-140 mg/dl --> 30 units * BSG 141+ --> 60 units * Bolus insulin * REGULAR per scale AC ONLY. Will omit HS dosing of regular insulin to prevent AM low. * Goal Range: Low 110 mg/dL - High 150 mg/dL * Correction Factor: 10 mg/dL/unit * Nutritional / Prandial insulin per carb ratio of 1 unit per 4 grams CHO consumed * Please note that the plan above was derived based on current level of insulin resistance and hospital stress. These recommendations are appropriate for inpatient admission only. Plan of care upon discharge will need to be reassessed to avoid potential outpatient hypo/hyperglycemia. Thank you.
[2017-01-31] MEDS ORDERED: CALCIUM CARBONATE 500 MG CHEWABLE PO PRN (14:30)
--- NOTE | 2017-01-31 15:58 | Progress Note ---
Medicine Progress Note Date & Time of Visit: Jan 31, 2017 at 14:32. Subjective 56 yo with SCLC presents with hypoxia and bilateral PE -breathing is worse today per patient -reports some coughing -uncertain about fevers or chills -tolerating PO -ambulates independently Objective Last 8 Hrs Date Time Temp Pulse Resp B/P (MAP) Pulse Ox O2 Delivery O2 Flow Rate FiO2 01/31/17 12:10 Nasal Cannula 01/31/17 11:33 36.7 90 20 124/73 (90) 94 Nasal Cannula 5.0 01/31/17 08:00 Nasal Cannula 01/31/17 07:31 118 20 159/77 (104) 88 Nasal Cannula 5.0 Physical Exam: GEN: WNWD, in no acute distress, alert and appropriate HEENT: NC/AT, normal sclerae, MMM CARDIO: reg rate, S1/2 heard without m/g/r LUNGS: CTA bilaterally,coarse rhonchi, rales or wheezes, good diaphragmatic excursion ABD: soft, non-tender, protuberant but non-distended, no rebound or guarding, + BS EXTREMITY: RP and DP palpable 2+ bilat, no LE swelling or edema, extremities are warm and well-perfused NEURO: CN 2-12 grossly intact MUSC: ambulatory, no gross focal deficits. SKIN: warm and dry Laboratory Results: 01/31/17 07:02 01/31/17 07:02 Test 01/30/17 11:35 01/31/17 07:02 01/31/17 14:19 Immature Granulocyte % (Auto) 1.2 % White Blood Count 15.71 K/uL (4.8-10.8) Red Blood Count 3.85 M/uL (4.7-6.1) 3.31 M/uL (4.7-6.1) Hemoglobin 11.4 g/dL (14.0-18.0) Hematocrit 38.0 % (42-52) Mean Corpuscular Volume 98.7 fL (80-100) 98.5 fL (80-100) Mean Corpuscular Hemoglobin 29.6 pg (25-34) 29.9 pg (25-34) Mean Corpuscular Hemoglobin Concent 30.0 g/dl (32-36) 30.4 g/dl (32-36) Platelet Count 216 K/uL (130-400) Mean Platelet Volume 11.5 fL (7.4-10.4) 10.8 fL (7.4-10.4) Neutrophils (%) (Auto) 90.3 % Lymphocytes (%) (Auto) 1.7 % Monocytes (%) (Auto) 5.0 % Eosinophils (%) (Auto) 1.7 % Basophils (%) (Auto) 0.1 % Neutrophils # (Auto) 14.19 K/uL (1.4-6.5) Lymphocytes # (Auto) 0.27 K/uL (1.2-3.4) Monocytes # (Auto) 0.78 K/uL (0.11-0.59) Eosinophils # (Auto) 0.26 K/uL (0-0.5) Basophils # (Auto) 0.02 K/uL (0-0.2) Immature Granulocyte # (Auto) 0.19 K/uL (0.00-0.02) Prothrombin Time 11.3 SECONDS (9.0-12.0) Prothromb Time International Ratio 1.1 (0.9-1.1) Activated Partial Thromboplast Time 23.3 SECONDS (21.0-31.0) Partial Thromboplastin Ratio 0.9 Lactic Acid Level 2.0 mmol/L (0.4-2.0) Magnesium Level 2.0 mg/dl (1.8-2.4) Total Bilirubin 0.2 mg/dl (0.2-1) Aspartate Amino Transf (AST/SGOT) 46 U/L (15-37) Alanine Aminotransferase (ALT/SGPT) 21 U/L (12-78) Alkaline Phosphatase 96 U/L (45-117) Troponin I < 0.015 ng/ml (0-0.045) Total Protein 7.6 gm/dl (6.4-8.2) Albumin 2.6 gm/dl (3.4-5.0) Globulin 5.0 gm/dl (2.5-4.0) Albumin/Globulin Ratio 0.5 (0.9-2) Hepatitis C Antibody Screen NEG (NEG) RDW Standard Deviation 72.5 fL (36.4-46.3) RDW Coefficient of Variation 20.1 % (11.5-14.5) Nucleated RBC Absolute Count (auto) 0.06 K/uL (0-0) Nucleated Red Blood Cells % 0.6 % Anion Gap 7.0 mmol/L (3-11) Est Creatinine Clear Calc Drug Dose 124.8 ml/min Estimated GFR () 98.5 Estimated GFR (Non- 84.9 BUN/Creatinine Ratio 28.5 (10-20) Estimated Average Glucose 137 mg/dl Hemoglobin A1c 6.4 % (4.5-5.6) Calcium Level 9.4 mg/dl (8.5-10.1) Bedside Glucose 130 mg/dl (70-99) Date/Time Source Procedure Growth Status 01/30/17 11:48 Blood Blood Culture Pending Received Last 24 Hours Test 01/30/17 17:23 01/30/17 20:22 01/31/17 00:45 01/31/17 07:02 Bedside Glucose 247 mg/dl 228 mg/dl 187 mg/dl White Blood Count 10.92 K/uL Red Blood Count 3.31 M/uL Hemoglobin 9.9 g/dL Hematocrit 32.6 % Mean Corpuscular Volume 98.5 fL Mean Corpuscular Hemoglobin 29.9 pg Mean Corpuscular Hemoglobin Concent 30.4 g/dl RDW Standard Deviation 72.5 fL RDW Coefficient of Variation 20.1 % Platelet Count 182 K/uL Mean Platelet Volume 10.8 fL Nucleated RBC Absolute Count (auto) 0.06 K/uL Nucleated Red Blood Cells % 0.6 % Sodium Level 137 mmol/L Potassium Level 3.8 mmol/L Chloride Level 101 mmol/L Carbon Dioxide Level 29 mmol/L Anion Gap 7.0 mmol/L Blood Urea Nitrogen 28 mg/dl Creatinine 1.00 mg/dl Est Creatinine Clear Calc Drug Dose 124.8 ml/min Estimated GFR () 98.5 Estimated GFR (Non- 84.9 BUN/Creatinine Ratio 28.5 Random Glucose 50 mg/dl Estimated Average Glucose 137 mg/dl Hemoglobin A1c 6.4 % Calcium Level 9.4 mg/dl Test 01/31/17 07:39 01/31/17 11:44 01/31/17 14:19 Bedside Glucose 66 mg/dl 83 mg/dl 130 mg/dl Assessment & Plan 56 yo M with SCLC diagnosed September 2016 who completed chemotherapy (carboplatin and etoposide) and XRT to his chest. He was found to have an UE DVT and was placed on Lovenox a couple of months ago by Dr. Gale. He then began getting fevers after every injection so these were held. Shortness of breath increased and his PCP put him on Levaquin, Rocephin and prednisone for 10 days, however, patient reports only taking the Rocephin. But he was no better, which was why he presented with SOB--found to have multifocal pneumonia and bilateral PE. Discussed the case with Dr. Gale who would like pulm input on the need for bronch in presence of a possible post-obstructive pneumonia in setting of known masses c/w SCLC. Dr. Geena Gale also weighed in and thought this could be a multifactorial issue with a contributing factor being radiation pneumonitis and he recommends prednisone 60mg PO daily x 2 weeks with a slow taper. 1. Hypoxic respiratory failure 2/2 multifactorial etiology including but not limited to SCLC, bilateral PEs, multifocal pneumonia (possible/suspected gram negative pneumonia), and radiation pneumonitis. Continues on the Levaquin and Cefepime at this time. Pulm consult-awaiting recs. Dr. Jolynn Gale-continue with Lovenox injections in the leg per patient request. Dr. Geena Gale-prednisone 60mg PO daily x 2 weeks with gradual taper afterwards. Pt is not on home oxygen. 2. EWVD-covabcw-mzmbyygha. A1C is well controlled. Pt is particular regarding type of insulin used. Cont ISS and NPH per pharmacy recs (new change today) apprec assistance with management after episode of hypoglycemia this morning. 3. Anxiety-chronic, pt reports increased anxiety at this time. Increased his home Valium from 4mg PO BID to q8h PRN. 4. Chronic back pain-continues on home methadone 5. GERD-Speech eval requested and Tums PRN ordered per request DVT proph: Lovenox full dose Full Code Dispo-will likely continue on Lovenox in setting of malignancy, awaiting pulm evaluation. Likely here through the end of the week. DO [facility] Hospital[facility] Consultants: Pulm-Dr. Jena Vasques Onc-Dr. Geena Gale Onc- Dr. Jolynn Gale Current Inpatient Medications: Current Inpatient Medications Medications (Trade) Dose Ordered Sig/Prince Route Start Time Stop Time Status Last Admin Dose Admin Ioversol (Optiray 320) 125 ml UD PRN IV 01/30/17 11:45 02/03/17 11:44 Cefepime HCl (Consult) 1 ea UD PRN N/A 01/30/17 15:47 03/01/17 15:46 Ondansetron HCl (Zofran Inj) 4 mg Q6H PRN IV 01/30/17 15:30 03/01/17 15:29 Glucose (Glucose 40% Gel) 15-30 GRAMS 15 GRAMS... UD PRN PO 01/30/17 15:30 03/01/17 15:29 Glucose (Glucose Chew Tab) 4-8 Tablets 4 Tabl... UD PRN PO 01/30/17 15:30 03/01/17 15:29 Dextrose (Dextrose 50% 50ML Syringe) 25-50ML OF 50% DW IV FOR... UD PRN IV 01/30/17 15:30 03/01/17 15:29 Glucagon (Glucagon Inj) 1 mg UD PRN SQ 01/30/17 15:30 03/01/17 15:29 Levalbuterol (Xopenex 0.31MG/ 3ML Neb) 0.31 mg Q4 PRN INH 01/30/17 15:30 03/01/17 15:29 Aspirin (Ecotrin Tab) 325 mg QAM PO 01/31/17 09:00 03/02/17 08:59 01/31/17 07:54 325 MG Diazepam (Valium Tab) 4 mg BID PRN PO 01/30/17 15:45 03/01/17 15:44 01/31/17 04:10 4 MG Dimenhydrinate (Dramamine Tab) 50 mg Q4H PRN PO 01/30/17 15:45 03/01/17 15:44 Prochlorperazine Maleate (Compazine Tab) 10 mg Q6 PRN PO 01/30/17 15:45 03/01/17 15:44 Tramadol HCl (Ultram Tab) 50 mg Q6H PRN PO 01/30/17 15:45 03/01/17 15:44 01/31/17 07:58 50 MG Zolpidem Tartrate (Ambien Tab) 10 mg HS PO 01/30/17 21:00 03/01/17 20:59 01/30/17 23:32 10 MG Cholecalciferol (Vitamin D Tab) 5,000 inter.unit DAILY PO 01/31/17 09:00 03/02/17 08:59 01/31/17 07:54 5,000 INTER.UNIT Levofloxacin (Levaquin Tab) 750 mg DAILY@11 PO 01/31/17 11:00 02/05/17 11:01 01/31/17 10:51 750 MG Cefepime HCl 2000 mg/Syringe 20 ml @ 5 mls/min Q8@0000,0800,1600 IV 01/30/17 17:11 02/06/17 17:10 01/31/17 07:53 5 MLS/MIN Miscellaneous Information (Order Awaiting Action) 1 ea QS N/A 01/31/17 00:00 03/02/17 00:00 Miscellaneous Information (Consult Glycemic Management Pharmacy) 1 ea UD PRN N/A 01/30/17 20:51 03/01/17 20:50 Enoxaparin Sodium (Lovenox Inj) 141 mg Q12@1000,2200 SQ 01/30/17 22:28 03/01/17 22:27 01/31/17 10:52 141 MG Oxymetazoline HCl (Afrin 0.05% Nasal [place]) 1 sprays DAILY PRN BJ 01/31/17 01:15 03/02/17 01:14 01/31/17 01:54 1 SPRAYS Methadone HCl (Dolophine Tab) 10 mg QIDM PO 01/31/17 08:00 02/14/17 07:59 01/31/17 12:06 10 MG Insulin Human Regular (novoLIN-R) SLIDING SCALE IF C... AC SC 01/31/17 11:00 03/02/17 10:59 Insulin Human NPH (novoLIN-N NPH) SEE PROTOCOL TEXT BID SC 01/31/17 21:00 03/02/17 20:59
--- NOTE | 2017-01-31 16:37 | Medical Consult ---
Consultation Date of Consultation: Jan 31, 2017. Attending Physician: Ruby Rodriguez DO History of Present Illness Dann Carcamo Hematology/Oncology consult: Evaluation management of small cell lung cancer. Date of consultation: 12/31/2016 HPI: 56-year-old male, a case of small cell lung cancer, locally advanced disease but limited to the chest at that time the diagnosis. He completed 4 cycles of chemotherapy with carboplatin and etoposide between -12/12/2016, along with radiation treatment to the large mediastinal mass and left lung mass. He complained of increasing shortness of breath, he was seen by his primary- care provider about 1 week back, chest x-ray showed large patchy consolidation involving the left upper lobe (01/24/2017), he was started on oral prednisone at 60 mg per day and also received intramuscular Rocephin every day for the last 6 days. He had another follow-up visit with his primary-care provider, he continued to have increasing cough and shortness of breath without much fever, chest x-ray shows no significant changes, his pulse focus was on the lower side around 80 on room air, now he is admitted Hospital for further evaluation. I saw him at bedside in the morning, he is receiving nasal cannula supplemental seen at 5 L/min, now O 2 saturation has improved about 90%, reviewed imaging studies done on 12/30/2016, no acute changes noted in the soft tissue of the neck , evidence of bilateral pulmonary embolism noted, more on the right side, extensive airspace consultation noted throughout the left lung as well as right apex. Small left pleural effusion noted. Left upper lobe lung lesion and mediastinal lymph node has decreased in the size. Now started him on Lovenox therapy. History of left upper extremity DVT diagnosed at the same time and he was diagnosed with lung cancer, he received Lovenox therapy but recently about 2 weeks back when he complained of fever following Lovenox injection, we decided to hold the Lovenox therapy, he had a repeat Doppler evaluation of the left upper extremity which showed no evidence of DVT (12/18/2016). REVIEW OF SYSTEMS: GENERAL: No change in weight, no weakness, no fatigue, no fever, sweats or chills. Current weight is around 300 lb. SKIN: No skin rash, no bruising. HEAD: No new headache, no dizziness. EYES: No recent change in the vision, no diplopia, EARS: No earache no tinnitus, NOSE: No epistaxis, No nasal discharge or stuffiness, MOUTH: No sores, no dysphagia, no hoarseness of voice, NECK: No lumps, No swelling in thyroid area. No stiffness. PULMONARY: Increasing coughing and shortness of breath present,, no hemoptysis , no chest pain, No wheezing. CARDIOVASCULAR: No anginal chest pain, no PND, no orthopnea. No palpitation, no leg edema. No syncope. GASTROINTESTINAL: No abdominal pain, no nausea or vomiting. No diarrhea, No constipation. No blood in stool or black tarry stools. No abdominal distention. UROLOGIC: No burning urination. No hematuria. MUSCULOSKELETAL: No joint pain, No joint swelling, no muscle weakness. HEMATOLOGIC: No anemia, no bleeding disorder, No bruising. No history of blood transfusion. NEUROLOGIC: No seizures, no focal weakness, no speech difficulty, No memory disturbances. No tingling or numbness of the extremities. PSYCHIATRIC: No depression. No anxiety. No psychosis. SLEEP: No sleep disorder. Past medical and surgical history: -Diabetes mellitus, insulin therapy -Spinal stenosis, chronic back pain, he had 4 different spine surgery in the past, he is on methadone and Tramadol for the symptomatic treatment. Social history: Ex-smoker. He lives by himself Family history: Not significant. Medications: Please review his chart for detailed list of medications. Now started him on prospective antibiotic in the form of Levaquin and Cefepime. Allergies: He is allergic to quite a few medications, please review his chart for detailed list of medications. On exam: - Alert and oriented x3, well built man, not in any distress. - HEENT: no icterus, no pallor, Throat: Normal. - Neck: No palpable cervical lymphadenopathy. - Chest: Left-sided crepitations present. - Abdomen: soft, nontender, no hepatomegaly, no splenomegaly. - No focal neuro deficit. - Extremities: no finger clubbing, no leg edema. Lab: -WBC 26116, H&H of 11.4/38, Platelet count of 216,000, BUN/Creat: 28/1.0, normal liver function test (01/30/2007) Imaging: As described above. ASSESSMENT AND PLAN: 56-year-old male, a case of small cell lung cancer with extensive mediastinal lymph gilson involvement, disease limited to the chest, he completed 4 cycles of chemotherapy with carboplatin and etoposide and also completed radiation treatment to the large mediastinal mass as well as left lung mass. No evidence of brain metastatic disease at that time the diagnosis. He also had left upper extremity DVT at that time the diagnosis, he received Lovenox therapy, follow-up Doppler evaluation showed no evidence of DVT in November,, he had some nonspecific fever following each Lovenox injection and so decided to hold Lovenox therapy at that time but now he has increasing shortness of breath, increasing coughing without much fever for the last one to 2 weeks, found to have significant hypoxemia, now admitted for further evaluation management. He received intramuscular Rocephin for the last 6 days along with oral prednisone at 60 mg per day for the last one week but no significant improvement noted in the repeat chest x-ray and now he is requiring more oxygen therapy. He was not using any kind of oxygen therapy at home earlier. Recent the CT scan of the chest shows evidence of bilateral pulmonary embolism, significant airspace changes noted in the left lung and the right upper lobe which could be multifocal pneumonia versus radiation pneumonitis or combination of both. Spoke with the hospitalist about his case, started him on Lovenox therapy, he is receiving broad-spectrum antibiotic, will also continue steroid therapy for now. Will have pulmonary evaluation. Thanks for the consultation. Dr. Brett Gale Hem/Onc (This note was completed using the dictation program Fluency Direct. As such, there may be misspellings, word substitutions, or other variations that should not change the essence of the clinical content of this encounter note. If there is need for further clarification, please direct questions to the provider listed above.) Past Medical/Surgical History Medical Problems: (1) Bilateral pulmonary embolism Status: Acute (2) DVT of upper extremity (deep vein thrombosis) Status: Acute (3) Hypoxia Status: Acute Family History Diabetes mellitus Social History Smoking Status: Former Smoker Marital Status: single Housing Status: lives alone Occupation Status: unemployed Allergies Coded Allergies: Amoxicillin (Verified Allergy, Intermediate, sob, 01/30/17) PER CONVERSATION WITH ANSELMO AQUINO PA-C - SHE SPOKE WITH PATIENT WHO STATES THAT THIS IS NOT A TRUE ALLERGY HE HAS TOLERATED PENCILLINS IN THE PAST. TOLERATES ROCEPHIN X 5 DOSES AN OUTPATIENT. Atorvastatin (Verified Allergy, Intermediate, diarrhea, 01/30/17) Acetaminophen (Verified Allergy, Unknown, PT STATES "IT INTENSIFIES EFFECT ", 01/30/17) Clindamycin (Verified Allergy, Unknown, SHORTNESS OF BREATH, 01/30/17) Escitalopram (Verified Allergy, Unknown, GI UPSET, 01/30/17) Gabapentin (Verified Allergy, Unknown, CONSTIPATION, 01/30/17) Insulin Aspart (Verified Allergy, Unknown, ALLERGIC TO PRESERVATIVES IN NOVOLOG - OK WITH REGULAR/NPH, 01/31/17) Morphine (Verified Allergy, Unknown, DID NOT TOLERATE PER PT, 01/30/17) Propoxyphene (Verified Allergy, Unknown, "DID CRAZY THINGS", 01/30/17) Sitagliptin (Verified Allergy, Unknown, UNKNOWN RXN, 01/30/17) Adhesives (Verified Adverse Reaction, Unknown, "rips his skin off", ) Dextromethorphan (Unverified Adverse Reaction, Unknown, HARD TO BREATHE?, 01/30/17) Guaifenesin (Unverified Adverse Reaction, Unknown, HARD TO BREATHE?, ) Metformin (Verified Adverse Reaction, Unknown, PT STATES "DID NOT WORK", 01/30/17) Current Inpatient Medications Current Inpatient Medications Medications (Trade) Dose Ordered Sig/Prince Route Start Time Stop Time Status Last Admin Dose Admin Ioversol (Optiray 320) 125 ml UD PRN IV 01/30/17 11:45 02/03/17 11:44 Cefepime HCl (Consult) 1 ea UD PRN N/A 01/30/17 15:47 03/01/17 15:46 Ondansetron HCl (Zofran Inj) 4 mg Q6H PRN IV 01/30/17 15:30 03/01/17 15:29 Glucose (Glucose 40% Gel) 15-30 GRAMS 15 GRAMS... UD PRN PO 01/30/17 15:30 03/01/17 15:29 Glucose (Glucose Chew Tab) 4-8 Tablets 4 Tabl... UD PRN PO 01/30/17 15:30 03/01/17 15:29 Dextrose (Dextrose 50% 50ML Syringe) 25-50ML OF 50% DW IV FOR... UD PRN IV 01/30/17 15:30 03/01/17 15:29 Glucagon (Glucagon Inj) 1 mg UD PRN SQ 01/30/17 15:30 03/01/17 15:29 Levalbuterol (Xopenex 0.31MG/ 3ML Neb) 0.31 mg Q4 PRN INH 01/30/17 15:30 03/01/17 15:29 Aspirin (Ecotrin Tab) 325 mg QAM PO 01/31/17 09:00 03/02/17 08:59 01/31/17 07:54 325 MG Dimenhydrinate (Dramamine Tab) 50 mg Q4H PRN PO 01/30/17 15:45 03/01/17 15:44 Prochlorperazine Maleate (Compazine Tab) 10 mg Q6 PRN PO 01/30/17 15:45 03/01/17 15:44 Tramadol HCl (Ultram Tab) 50 mg Q6H PRN PO 01/30/17 15:45 03/01/17 15:44 01/31/17 15:37 50 MG Zolpidem Tartrate (Ambien Tab) 10 mg HS PO 01/30/17 21:00 03/01/17 20:59 01/30/17 23:32 10 MG Cholecalciferol (Vitamin D Tab) 5,000 inter.unit DAILY PO 01/31/17 09:00 03/02/17 08:59 01/31/17 07:54 5,000 INTER.UNIT Levofloxacin (Levaquin Tab) 750 mg DAILY@11 PO 01/31/17 11:00 02/05/17 11:01 01/31/17 10:51 750 MG Cefepime HCl 2000 mg/Syringe 20 ml @ 5 mls/min Q8@0000,0800,1600 IV 01/30/17 17:11 02/06/17 17:10 01/31/17 15:36 5 MLS/MIN Miscellaneous Information (Order Awaiting Action) 1 ea QS N/A 01/31/17 00:00 03/02/17 00:00 Miscellaneous Information (Consult Glycemic Management Pharmacy) 1 ea UD PRN N/A 01/30/17 20:51 03/01/17 20:50 Enoxaparin Sodium (Lovenox Inj) 141 mg Q12@1000,2200 SQ 01/30/17 22:28 03/01/17 22:27 01/31/17 10:52 141 MG Oxymetazoline HCl (Afrin 0.05% Nasal [place]) 1 sprays DAILY PRN BJ 01/31/17 01:15 03/02/17 01:14 01/31/17 01:54 1 SPRAYS Methadone HCl (Dolophine Tab) 10 mg QIDM PO 01/31/17 08:00 02/14/17 07:59 01/31/17 12:06 10 MG Insulin Human Regular (novoLIN-R) SLIDING SCALE IF C... AC SC 01/31/17 11:00 03/02/17 10:59 Insulin Human NPH (novoLIN-N NPH) SEE PROTOCOL TEXT BID SC 01/31/17 21:00 03/02/17 20:59 Diazepam (Valium Tab) 4 mg Q8H PRN PO 01/31/17 14:30 03/01/17 15:44 Calcium Carbonate (Tums Chew Tab) 500 mg BID PRN PO 01/31/17 14:30 03/02/17 14:29 Prednisone (PredniSONE TAB) 60 mg DAILY PO 02/01/17 09:00 03/03/17 08:59 UNV Prednisone (PredniSONE TAB) 60 mg 1634 ONCE PO 01/31/17 16:34 01/31/17 16:35 UNV Physical Exam Date Time Temp Pulse Resp B/P (MAP) Pulse Ox O2 Delivery O2 Flow Rate FiO2 01/31/17 15:34 36.4 91 20 120/73 (89) 93 Nasal Cannula 5.0 01/31/17 12:10 Nasal Cannula 01/31/17 11:33 36.7 90 20 124/73 (90) 94 Nasal Cannula 5.0 01/31/17 08:00 Nasal Cannula 01/31/17 07:31 118 20 159/77 (104) 88 Nasal Cannula 5.0 01/31/17 04:00 Nasal Cannula 01/31/17 03:38 37.1 99 18 125/80 (95) 90 Nasal Cannula 5.0 01/31/17 00:00 Nasal Cannula 01/30/17 23:10 36.4 94 16 130/75 (93) 91 Nasal Cannula 5.0 01/30/17 20:09 36.6 92 18 144/80 (101) 90 Nasal Cannula 2.0 01/30/17 20:00 90 Nasal Cannula 3.0 01/30/17 17:03 36.4 97 18 145/80 (101) 94 3.0 Laboratory Results Last 24 Hours Test 01/30/17 17:23 01/30/17 20:22 01/31/17 00:45 01/31/17 07:02 Bedside Glucose 247 mg/dl 228 mg/dl 187 mg/dl White Blood Count 10.92 K/uL Red Blood Count 3.31 M/uL Hemoglobin 9.9 g/dL Hematocrit 32.6 % Mean Corpuscular Volume 98.5 fL Mean Corpuscular Hemoglobin 29.9 pg Mean Corpuscular Hemoglobin Concent 30.4 g/dl RDW Standard Deviation 72.5 fL RDW Coefficient of Variation 20.1 % Platelet Count 182 K/uL Mean Platelet Volume 10.8 fL Nucleated RBC Absolute Count (auto) 0.06 K/uL Nucleated Red Blood Cells % 0.6 % Sodium Level 137 mmol/L Potassium Level 3.8 mmol/L Chloride Level 101 mmol/L Carbon Dioxide Level 29 mmol/L Anion Gap 7.0 mmol/L Blood Urea Nitrogen 28 mg/dl Creatinine 1.00 mg/dl Est Creatinine Clear Calc Drug Dose 124.8 ml/min Estimated GFR () 98.5 Estimated GFR (Non- 84.9 BUN/Creatinine Ratio 28.5 Random Glucose 50 mg/dl Estimated Average Glucose 137 mg/dl Hemoglobin A1c 6.4 % Calcium Level 9.4 mg/dl Test 01/31/17 07:39 01/31/17 11:44 01/31/17 14:19 01/31/17 16:14 Bedside Glucose 66 mg/dl 83 mg/dl 130 mg/dl 129 mg/dl
--- NOTE | 2017-01-31 17:34 | Radiation Oncology Progress Nt ---
Radiation Oncology Progress Nt Date of Service Date of Service: Jan 31, 2017. Reason For Admission DVT/Pulmonary Embolus, Pulmonary symptoms Requesting Physician Dr. Ruby Rodriguez Subjective Pt evaluation today including: conversation w/ patient, physical exam, conversation with hospitalist, conversation with inpatient team, chart review, lab review, review of studies, review of inpatient medication list Pain: No pain. Voiding: no voiding problems Radiation Therapy Has patient started Radiation: Yes (Treatment completed already) Number of Treatments Received: 35 Number of Treatments Planned: 35 Current Chemotherapy: Yes Additional Chemotherapy Cis/Etoposide Objective Vital Signs Date Time Temp Pulse Resp B/P (MAP) Pulse Ox O2 Delivery O2 Flow Rate FiO2 01/31/17 15:34 36.4 91 20 120/73 (89) 93 Nasal Cannula 5.0 01/31/17 12:10 Nasal Cannula 01/31/17 11:33 36.7 90 20 124/73 (90) 94 Nasal Cannula 5.0 01/31/17 08:00 Nasal Cannula 01/31/17 07:31 118 20 159/77 (104) 88 Nasal Cannula 5.0 01/31/17 04:00 Nasal Cannula 01/31/17 03:38 37.1 99 18 125/80 (95) 90 Nasal Cannula 5.0 01/31/17 00:00 Nasal Cannula 01/30/17 23:10 36.4 94 16 130/75 (93) 91 Nasal Cannula 5.0 01/30/17 20:09 36.6 92 18 144/80 (101) 90 Nasal Cannula 2.0 01/30/17 20:00 90 Nasal Cannula 3.0 Physical Exam General Appearance: + mild distress Eyes: normal inspection ENT: normal ENT inspection Neck: supple, no adenopathy Respiratory/Chest: + decreased breath sounds, + accessory muscle use, + wheezing Cardiovascular: regular rate, rhythm, no edema, no gallop, no JVD 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 [facility] [address] [facility] Rec: [id number] Address2: Acct ID: [id number] [facility] Zip: [place] [address] Date: 1960 Sex: M Room/Bed: Ref Phy: Efraín Zamudio III, M.D. SC: ARIS Att Phy: Report #: [id number] Nevaeh Phy: Efraín Zamudio III, M.D. Test: NCKW Admit Phy: Chest Painting And Sealing Supervisor: AKANKSHA Interpreting Phy: Herb Hyde D.O. Diagnosis: CAN'T BREATHE Ordering Phy: Hero Reynaga M.D. Service Date: 01/30/17 Admit Date: 01/30/17 MNE: [id number] CONF: DICTATED BY: Herb Hyde D.O.]] CC: Hero Reynaga M.D. Piatt, John E., III, M.D. Endcc: [~ rep ct add3]] SOFT TISSUE NECK WITH HISTORY: 56 years-old Male throat closing sensation, sob acute shortness of breath with stroke pain. History of non-small cell lung carcinoma. COMPARISON: CTA chest of same day, PET CT 10/18/2016, chest CT 09/28/2016 TECHNIQUE: Multiple axial CT images of the soft tissues of the neck were obtained following the intravenous administration of 94 mL Optiray 320. A dose lowering technique was used consistent with the principals of ALARA. FINDINGS: The nasopharynx, oropharynx and hypopharynx appear patent. There is mild debris within the vallecula. The epiglottis and aryepiglottic folds are unremarkable. True vocal cords appear normal and symmetric. Subglottic airway is patent. No retropharyngeal soft tissue swelling or abscess. There are a few calcifications of the bilateral palatine tonsils. No peritonsillar abscess or tonsillar enlargement identified. Thyroid is homogeneous. Partially imaged consolidation of the left greater than right lung apices noted, further described on comparison chest CT of same day. Paraseptal emphysematous changes noted. The parotid, some mandibular and sublingual glands are unremarkable. No definite adenopathy about the neck. Mildly prominent right paratracheal lymph node measures 9 mm on image 330 of series 4, nonspecific. The imaged intracranial structures demonstrate no acute abnormality. Multilevel facet arthrosis of the cervical spine. Mastoid air cells and middle ear cavities are clear. Paranasal sinuses are also generally clear. Multifocal predominantly is noted with dental caries. IMPRESSION: 1. No acute abnormality identified involving the soft tissues of the neck. No peritonsillar abscess or prevertebral soft tissue swelling. 2. Bilateral palatine tonsilliths 3. Bilateral apical consolidations, left greater than right are better evaluated on CTA chest of same day. Patient: LAVERNE CARCAMO Address1: [address] [place] [address] Rec: [id number] Address2: Acct ID: [id number] [facility] Zip: [place] [address] Date: 1960 Sex: M Room/Bed: Ref Phy: Efraín Zamudio III, M.D. SC: ARIS Att Phy: Report #: [id number] Nevaeh Phy: Efraín Zamudio III, M.D. Test: CXPEA Admit Phy: Chest Painting And Sealing Supervisor: AKANKSHA Interpreting Phy: Hero Fair M.D. Diagnosis: CAN'T BREATHE Ordering Phy: Hero Reynaga M.D. Service Date: 01/30/17 Admit Date: 01/30/17 MNE: [id number] CONF: DICTATED BY: Hero Fair M.D.]] CC: Hero Reynaga M.D. Piatt, John E., III, M.D. Endcc: [~ rep ct add3]] CT ANGIOGRAM OF THE CHEST CLINICAL HISTORY: Dyspnea. Lung cancer. COMPARISON STUDY: Chest x-ray dated 01/30/2017. PET/CT dated 10/18/2016. TECHNIQUE: Following the IV administration of 94 cc of Optiray 320, CT angiogram of the chest was performed from the upper abdomen to the thoracic inlet utilizing the pulmonary embolus protocol. Images are reviewed in the axial, sagittal, and coronal planes. 3-D MIPS images are created and assessed. IV contrast was administered without complication. A dose lowering technique was utilized adhering to the principles of ALARA. CT DOSE: 1130.05 mGy.cm FINDINGS: Thyroid: Imaged portions of the thyroid gland are normal in size and attenuation. Thoracic aorta: The thoracic aorta is normal in caliber and demonstrates standard 3-vessel arch anatomy. No dissection is seen. Pulmonary vasculature: The main pulmonary arteries are dilated suggesting pulmonary artery hypertension. There are pulmonary emboli seen within the right lower lobe pulmonary artery. These extend into segmental and subsegmental branches. Pulmonary emboli are also identified within segmental and subsegmental branches in the left lower lobe as seen on image #140, and within subsegmental branches of the right upper lobe as seen on image number voiding 63. Heart: The heart is markedly enlarged and there is a small pericardial effusion. There are coronary artery calcifications. Lungs and pleural spaces: Emphysema is noted. There is extensive airspace consolidation seen throughout the left lung. Dense airspace consolidation is also seen at the right apex, with more patchy foci of consolidation seen in the right lower lung. The appearance suggests multifocal pneumonia. There is a trace left pleural effusion. The trachea and central airways are clear. The patient's left upper lobe pulmonary mass has modestly decreased in size from 10/18/2016. This now measures up to 1.1 cm in thickness as seen on image #249 (previously measured up to 1.7 cm). Smaller pulmonary lesions are secured by airspace consolidation. Mediastinum: Confluent mediastinal adenopathy in the anterior mediastinum and prevascular region has decreased in size from 10/18/2016. This now measures approximately 9 x 3 cm (producing measured 12 x 7.5 cm). Claudia: Confluent soft tissue in the left hilum likely represents adenopathy. No right hilar adenopathy is seen. Axillae: There is no axillary lymphadenopathy. Upper abdomen: There is a small hiatal hernia. A 1.4 cm left adrenal adenoma is unchanged. Partially visualized upper abdominal viscera is otherwise within normal limits. Skeletal structures: No lytic or blastic bony lesions are seen. IMPRESSION: 1. Bilateral pulmonary emboli as above, greatest in the right lower lobe. 2. Cardiomegaly and emphysema. 3. There is extensive airspace consolidation throughout the left lung as well as at the right apex. The appearance is most typical for multifocal pneumonia. Differential considerations include asymmetric pulmonary edema and/or pulmonary hemorrhage. Clinical correlation will be required and radiographic follow-up to resolution is recommended. 4. Small left pleural effusion. 5. A left upper lobe pulmonary lesion and confluent mediastinal lymphadenopathy have decreased in size from the 10/18/2016 PET examination. Smaller pulmonary lesions seen previously are obscured by airspace consolidation. 6. Additional findings as above. Laboratory Results Last 24 Hours Test 01/30/17 20:22 01/31/17 00:45 01/31/17 07:02 01/31/17 07:39 Bedside Glucose 228 mg/dl 187 mg/dl 66 mg/dl White Blood Count 10.92 K/uL Red Blood Count 3.31 M/uL Hemoglobin 9.9 g/dL Hematocrit 32.6 % Mean Corpuscular Volume 98.5 fL Mean Corpuscular Hemoglobin 29.9 pg Mean Corpuscular Hemoglobin Concent 30.4 g/dl RDW Standard Deviation 72.5 fL RDW Coefficient of Variation 20.1 % Platelet Count 182 K/uL Mean Platelet Volume 10.8 fL Nucleated RBC Absolute Count (auto) 0.06 K/uL Nucleated Red Blood Cells % 0.6 % Sodium Level 137 mmol/L Potassium Level 3.8 mmol/L Chloride Level 101 mmol/L Carbon Dioxide Level 29 mmol/L Anion Gap 7.0 mmol/L Blood Urea Nitrogen 28 mg/dl Creatinine 1.00 mg/dl Est Creatinine Clear Calc Drug Dose 124.8 ml/min Estimated GFR () 98.5 Estimated GFR (Non- 84.9 BUN/Creatinine Ratio 28.5 Random Glucose 50 mg/dl Estimated Average Glucose 137 mg/dl Hemoglobin A1c 6.4 % Calcium Level 9.4 mg/dl Test 01/31/17 11:44 01/31/17 14:19 01/31/17 16:14 Bedside Glucose 83 mg/dl 130 mg/dl 129 mg/dl Assessment and Plan Mr. Carcamo is a 56-year-old gentleman who presents with limited stage small cell lung carcinoma who recently completed chemotherapy and radiation therapy in November 2016. The patient presented to the emergency room with shortness of breath and was admitted to the hospital due to findings consistent with bilateral pulmonary emboli and potential pneumonia. We have been asked to evaluate the patient for a potential diagnosis of radiation pneumonitis and management. Based on our evaluation in a review of his current imaging studies and laboratory findings, I do feel that his shortness of breath and dyspnea is multifactorial and there may be a potential component of radiation pneumonitis from his previous course of radiation therapy. We would recommend prednisone 60 mg daily for 2 weeks followed by taper of 10 mg less per week. We would appreciate input from pulmonary medicine as well and do feel that their recommendations should take priority over our recommendations with respect to overall pulmonary management given that the patient has other potential causes for shortness of breath. Please schedule the patient for a 2 week follow-up evaluation after being discharged from the hospital. Please contact us if there are any further questions or concerns.
--- NOTE | 2017-01-31 19:13 | Pulmonary Consultation ---
History General Date of Service: Jan 31, 2017. Stated Complaint: Bilateral Pulmonary Embolism, Pneumonia HPI The patient is a 56 year old male who presents to [facility] with complaints of Bilateral Pulmonary Embolism, Pneumonia. The patient's primary care provider is Efraín Zamudio III, M.D.. Mr. 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 Reyes. Being followed by Drs. Gale and Baljinder for hematology oncology and radiation oncology, respectively. He completed 4 cycles of chemotherapy with carboplatin and etoposide between 10/10/2016-12/12/2016, along with radiation treatment to the large mediastinal mass and left lung mass. He presented to the ER on 01/30/2017 with complaints of generalized malaise and fatigue, progressive shortness of breath at rest, dyspnea on exertion, no wheezing and dry cough. He denies any hemoptysis or weight loss. He states this his symptoms have also been associated with subjective fevers and cold sweats. He denies any orthopnea, paroxysmal nocturnal dyspnea or lower extremity edema. He was seen by his primary care physician in several days prior to admission for similar symptoms. He was empirically treated with prednisone, Rocephin IM 6 doses and Combivent inhaler. Upon return to PCP for follow-up he was found to be hypoxic to about 80% on pulse oximetry. Of note, patient also has history of left upper extremity DVT on Lovenox. He often injects in his right thigh due to increased abdominal pain at injection sites. Over the last week he has not been injecting regularly. He is unable to inject in left leg due to peripheral neuropathy. Vital signs on admission showed a temperature of 36.6, pulse 100, respiratory rate of 18, blood pressure 125/73, pulse oximetry 79% on room air. He was placed on nasal cannula 4 L with improvement of SaO2 to about 94% Labs on admission showed a white blood cell count of 15, hemoglobin of 11.4, platelet count of 216. Chemistry significant for a BUN of 30, creatinine of 1.32 and glucose 247. AST is 46 other LFTs were within normal limits. Troponin was less than 0.015. Albumin 2.6 and total protein 7.6 Coags within normal normal limits. Blood cultures pending. EKG on admission showed normal sinus rhythm with a ventricular rate of 100 bpm. Chest x-ray showed increase in diffuse left upper lobe opacity. With new minimal right upper lobe opacity. CT chest was subsequently done which showed bilateral segmental and subsegmental pulmonary emboli greater than the right lower lobe and on the left lower lobe. It also showed cardiomegaly, emphysematous changes. No signs of right heart strain seen on CT angiogram. He was admitted for hypoxic respiratory failure secondary to pneumonia versus radiation pneumonitis and pulmonary embolism. He was started on Lovenox and empirically treated with Levaquin and cefepime. Past Medical History Past Medical History: Insulin-dependent diabetes Spinal stenosis Chronic back pain on methadone and tramadol - Past Surgical History: Multiple back surgeries for spinal stenosis Hernia repair 4 Right knee arthroplasty Dental surgery Family History Diabetes mellitus He denies any family history of lung problems. Social History He is at about [id number] history of smoking, he quit in August 2016. Denies alcohol or illicit drug use. 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 Hx Tobacco Use In Past Year?: Yes (Quit 08/2016 - Smoked for 40 yrs 1pk/day) Smoking Status: Former Smoker Marital status: single Occupational Status: unemployed History of MDRO History of MDRO: No Allergies Coded Allergies: Amoxicillin (Verified Allergy, Intermediate, sob, 01/30/17) PER CONVERSATION WITH ANSELMO AQUINO PA-C - SHE SPOKE WITH PATIENT WHO STATES THAT THIS IS NOT A TRUE ALLERGY HE HAS TOLERATED PENCILLINS IN THE PAST. TOLERATES ROCEPHIN X 5 DOSES AN OUTPATIENT. Atorvastatin (Verified Allergy, Intermediate, diarrhea, 01/30/17) Acetaminophen (Verified Allergy, Unknown, PT STATES "IT INTENSIFIES EFFECT ", 01/30/17) Clindamycin (Verified Allergy, Unknown, SHORTNESS OF BREATH, 01/30/17) Escitalopram (Verified Allergy, Unknown, GI UPSET, 01/30/17) Gabapentin (Verified Allergy, Unknown, CONSTIPATION, 01/30/17) Insulin Aspart (Verified Allergy, Unknown, ALLERGIC TO PRESERVATIVES IN NOVOLOG - OK WITH REGULAR/NPH, 01/31/17) Morphine (Verified Allergy, Unknown, DID NOT TOLERATE PER PT, 01/30/17) Propoxyphene (Verified Allergy, Unknown, "DID CRAZY THINGS", 01/30/17) Sitagliptin (Verified Allergy, Unknown, UNKNOWN RXN, 01/30/17) Adhesives (Verified Adverse Reaction, Unknown, "rips his skin off", ) Dextromethorphan (Unverified Adverse Reaction, Unknown, HARD TO BREATHE?, 01/30/17) Guaifenesin (Unverified Adverse Reaction, Unknown, HARD TO BREATHE?, ) Metformin (Verified Adverse Reaction, Unknown, PT STATES "DID NOT WORK", 01/30/17) Current Medications Reported Home Medications Medications Dose Route/Sig Max Daily Dose Days Date Category Dose Instructions Humulin N Kwikpen (Insulin Isophane (Human)) 100 Unit/Ml Inj 70 SQ QAM 01/30/17 Reported 70-90 UNITS Combivent Respimat (Ipratropium-Albuterol) 1 Aer Aer 1 Puffs INH QID 01/30/17 Reported Ultram (Tramadol HCl) 50 Mg Tab 50 Mg PO Q6H PRN 01/30/17 Reported Ibuprofen 200 Mg Tab 200 Mg PO UD PRN 01/30/17 Reported Potassium 99 Mg Tab 99 Mg PO TID 01/30/17 Reported Azo Standard Maximum Stre (Phenazopyridine Hcl) 97.5 Mg Tab 195 Mg PO DAILY 01/30/17 Reported Compazine (Prochlorperazine Maleate) 10 Mg Tab 10 Mg PO Q6 PRN 7 01/19/17 Reported Zofran (Ondansetron HCl) 8 Mg Tab 8 Mg PO Q8 PRN 01/19/17 Reported Vitamin D (Cholecalciferol) 5,000 Unit Tab 5,000 Units PO DAILY 01/19/17 Reported Dramamine (Dimenhydrinate) 50 Mg Tab 50 Mg PO Q4H PRN 12/11/16 Reported Aspirin Ec (Aspirin) 325 Mg Tab 325 Mg PO QAM 10/10/16 Reported E-400 (Vitamin E) 400 Unit Cap 400 Mg PO TIDM 09/29/16 Reported Dolophine (Methadone HCl) 10 Mg Tab 20 Mg PO BID 09/29/16 Reported LIKES TO TAKE IT 10MG QID Ambien (Zolpidem Tartrate) 10 Mg Tab 10 Mg PO HS 09/29/16 Reported Humulin R (Insulin Human Regular) 1 Ea Inj 1 Dose SQ AC PRN 09/29/16 Reported Humulin N Kwikpen (Insulin Isophane (Human)) 100 Unit/Ml Inj 90 Units SQ HS 09/29/16 Reported PT STATES DOSE FLUXUATES Lasix (Furosemide) 20 Mg Tab 20 Mg PO DAILY PRN 09/29/16 Reported Valium (Diazepam) 2 Mg Tab 4 Mg PO BID PRN 09/29/16 Reported Physical Physical Exam Vital Signs: Date Time Temp Pulse Resp B/P (MAP) Pulse Ox O2 Delivery O2 Flow Rate FiO2 01/31/17 15:34 36.4 91 20 120/73 (89) 93 Nasal Cannula 5.0 01/31/17 12:10 Nasal Cannula 01/31/17 11:33 36.7 90 20 124/73 (90) 94 Nasal Cannula 5.0 01/31/17 08:00 Nasal Cannula 01/31/17 07:31 118 20 159/77 (104) 88 Nasal Cannula 5.0 01/31/17 04:00 Nasal Cannula 01/31/17 03:38 37.1 99 18 125/80 (95) 90 Nasal Cannula 5.0 01/31/17 00:00 Nasal Cannula 01/30/17 23:10 36.4 94 16 130/75 (93) 91 Nasal Cannula 5.0 01/30/17 20:09 36.6 92 18 144/80 (101) 90 Nasal Cannula 2.0 01/30/17 20:00 90 Nasal Cannula 3.0 01/30/17 17:03 36.4 97 18 145/80 (101) 94 3.0 General Appearance: WELL-APPEARING, WD/WN, NO APPARENT DISTRESS Head: NORMOCEPHALIC, ATRAUMATIC Eyes: PERRLA, NO DISCHARGE, EOMI, SCLERAE NORMAL ENT: NORMAL NASAL EXAM, NORMAL MOUTH EXAM, other (dental caries of left molars) Neck: NORMAL RANGE OF MOTION, NO TENDERNESS, TRACHEA MIDLINE, NO STRIDOR, other (Mallampati 2) Respiratory: CLEAR TO PERCUSSION Cardiovasular: REGULAR RATE/RHYTHM, NORMAL S1S2, NO M/G/R Abdomen: NON TENDER, NORMAL BOWEL SOUNDS, other (obese) Genitourinary - Male: EXTERNAL GENITALIA NORMAL Back: NORMAL INSPECTION Upper Extremities: NO EDEMA, NO DEFORMITY, NORMAL ROM, other (no cyanosis no clubbing) Lower Extremities: NO EDEMA, NO DEFORMITY, NORMAL ROM Pulses: dorsalis pedis (R) (2+), dorsalis pedis (L) (2+) Neuro: ALERT, ORIENTED x 3, NORMAL MOTOR EXAM, NORMAL SENSATION, NORMAL SPEECH , NORMAL MEMORY Psychiatric: NORMAL AFFECT, NO SUICIDAL IDEATION, CONTRACTS FOR SAFETY Diagnostics Labs Results Past 24 Hours Test 01/30/17 17:23 01/30/17 20:22 01/31/17 00:45 01/31/17 07:02 Range/Units Bedside Glucose 247 228 187 70-99 mg/dl White Blood Count 10.92 4.8-10.8 K/uL Red Blood Count 3.31 4.7-6.1 M/uL Hemoglobin 9.9 14.0-18.0 g/dL Hematocrit 32.6 42-52 % Mean Corpuscular Volume 98.5 80-100 fL Mean Corpuscular Hemoglobin 29.9 25-34 pg Mean Corpuscular Hemoglobin Concent 30.4 32-36 g/dl RDW Standard Deviation 72.5 36.4-46.3 fL RDW Coefficient of Variation 20.1 11.5-14.5 % Platelet Count 182 130-400 K/uL Mean Platelet Volume 10.8 7.4-10.4 fL Nucleated RBC Absolute Count (auto) 0.06 0-0 K/uL Nucleated Red Blood Cells % 0.6 % Sodium Level 137 136-145 mmol/L Potassium Level 3.8 3.5-5.1 mmol/L Chloride Level 101 98-107 mmol/L Carbon Dioxide Level 29 21-32 mmol/L Anion Gap 7.0 3-11 mmol/L Blood Urea Nitrogen 28 7-18 mg/dl Creatinine 1.00 0.60-1.40 mg/dl Est Creatinine Clear Calc Drug Dose 124.8 ml/min Estimated GFR () 98.5 Estimated GFR (Non- 84.9 BUN/Creatinine Ratio 28.5 10-20 Random Glucose 50 70-99 mg/dl Estimated Average Glucose 137 mg/dl Hemoglobin A1c 6.4 4.5-5.6 % Calcium Level 9.4 8.5-10.1 mg/dl Test 01/31/17 07:39 01/31/17 11:44 01/31/17 14:19 01/31/17 16:14 Range/Units Bedside Glucose 66 83 130 129 70-99 mg/dl Diagnostic Radiology CT ANGIOGRAM OF THE CHEST CLINICAL HISTORY: Dyspnea. Lung cancer. COMPARISON STUDY: Chest x-ray dated 01/30/2017. PET/CT dated 10/18/2016. TECHNIQUE: Following the IV administration of 94 cc of Optiray 320, CT angiogram of the chest was performed from the upper abdomen to the thoracic inlet utilizing the pulmonary embolus protocol. Images are reviewed in the axial, sagittal, and coronal planes. 3-D MIPS images are created and assessed. IV contrast was administered without complication. A dose lowering technique was utilized adhering to the principles of ALARA. CT DOSE: 1130.05 mGy.cm FINDINGS: Thyroid: Imaged portions of the thyroid gland are normal in size and attenuation. Thoracic aorta: The thoracic aorta is normal in caliber and demonstrates standard 3-vessel arch anatomy. No dissection is seen. Pulmonary vasculature: The main pulmonary arteries are dilated suggesting pulmonary artery hypertension. There are pulmonary emboli seen within the right lower lobe pulmonary artery. These extend into segmental and subsegmental branches. Pulmonary emboli are also identified within segmental and subsegmental branches in the left lower lobe as seen on image #140, and within subsegmental branches of the right upper lobe as seen on image number voiding 63. Heart: The heart is markedly enlarged and there is a small pericardial effusion. There are coronary artery calcifications. Lungs and pleural spaces: Emphysema is noted. There is extensive airspace consolidation seen throughout the left lung. Dense airspace consolidation is also seen at the right apex, with more patchy foci of consolidation seen in the right lower lung. The appearance suggests multifocal pneumonia. There is a trace left pleural effusion. The trachea and central airways are clear. The patient's left upper lobe pulmonary mass has modestly decreased in size from 10/18/2016. This now measures up to 1.1 cm in thickness as seen on image #249 (previously measured up to 1.7 cm). Smaller pulmonary lesions are secured by airspace consolidation. Mediastinum: Confluent mediastinal adenopathy in the anterior mediastinum and prevascular region has decreased in size from 10/18/2016. This now measures approximately 9 x 3 cm (producing measured 12 x 7.5 cm). Claudia: Confluent soft tissue in the left hilum likely represents adenopathy. No right hilar adenopathy is seen. Axillae: There is no axillary lymphadenopathy. Upper abdomen: There is a small hiatal hernia. A 1.4 cm left adrenal adenoma is unchanged. Partially visualized upper abdominal viscera is otherwise within normal limits. Skeletal structures: No lytic or blastic bony lesions are seen. IMPRESSION: 1. Bilateral pulmonary emboli as above, greatest in the right lower lobe. 2. Cardiomegaly and emphysema. 3. There is extensive airspace consolidation throughout the left lung as well as at the right apex. The appearance is most typical for multifocal pneumonia. Differential considerations include asymmetric pulmonary edema and/or pulmonary hemorrhage. Clinical correlation will be required and radiographic follow-up to resolution is recommended. 4. Small left pleural effusion. 5. A left upper lobe pulmonary lesion and confluent mediastinal lymphadenopathy have decreased in size from the 10/18/2016 PET examination. Smaller pulmonary lesions seen previously are obscured by airspace consolidation. 6. Additional findings as above. SOFT TISSUE NECK WITH HISTORY: 56 years-old Male throat closing sensation, sob acute shortness of breath with stroke pain. History of non-small cell lung carcinoma. COMPARISON: CTA chest of same day, PET CT 10/18/2016, chest CT 09/28/2016 TECHNIQUE: Multiple axial CT images of the soft tissues of the neck were obtained following the intravenous administration of 94 mL Optiray 320. A dose lowering technique was used consistent with the principals of ALARA. FINDINGS: The nasopharynx, oropharynx and hypopharynx appear patent. There is mild debris within the vallecula. The epiglottis and aryepiglottic folds are unremarkable. True vocal cords appear normal and symmetric. Subglottic airway is patent. No retropharyngeal soft tissue swelling or abscess. There are a few calcifications of the bilateral palatine tonsils. No peritonsillar abscess or tonsillar enlargement identified. Thyroid is homogeneous. Partially imaged consolidation of the left greater than right lung apices noted, further described on comparison chest CT of same day. Paraseptal emphysematous changes noted. The parotid, some mandibular and sublingual glands are unremarkable. No definite adenopathy about the neck. Mildly prominent right paratracheal lymph node measures 9 mm on image 330 of series 4, nonspecific. The imaged intracranial structures demonstrate no acute abnormality. Multilevel facet arthrosis of the cervical spine. Mastoid air cells and middle ear cavities are clear. Paranasal sinuses are also generally clear. Multifocal predominantly is noted with dental caries. IMPRESSION: 1. No acute abnormality identified involving the soft tissues of the neck. No peritonsillar abscess or prevertebral soft tissue swelling. 2. Bilateral palatine tonsilliths 3. Bilateral apical consolidations, left greater than right are better evaluated on CTA chest of same day. CHEST ONE VIEW PORTABLE CLINICAL HISTORY: 56 years-old Male presenting with EVALUATE RESPIRATORY DISTRESS.DYSPNEA. TECHNIQUE: Portable upright AP view of the chest was obtained. COMPARISON: 10/02/2016. FINDINGS: The cardiomediastinal silhouette is enlarged secondary to the presence of the multilobular anterior mediastinal mass better appreciated on CT from 09/28/2016. Significant interval opacification of the left lung diffusely area the left mainstem bronchus appears grossly patent. Suggestion of minimal opacity in the right upper lung. No large effusion or pneumothorax. Osseous structures normal. Upper abdomen normal. IMPRESSION: 1. Significant interval increase in diffuse left lung opacity and new minimal opacity in the right upper lung. This is concerning for progression of disease versus postobstructive pneumonia. Further evaluation with CT recommended. EKG EKG 01/30/2017 Normal sinus rhythm with a ventricular rate of 100 bpm Possible Left atrial enlargement Impression Assessment and Plan Hypoxic respiratory failure Small carcinoma of SID Pneumonia vs Radiation induced lung disease Bilateral pulmonary emboli History recent DVT left upper extremity Mr. Carcamo has acute hypoxic respiratory failure that his multifocal in nature. CT chest shows a nonuniform discrete consolidation. His differential includes progression of malignancy, infection, or inflammatory process i.e. radiation pneumonitis. Radiation induced bronchiolitis obliterans is also a consideration with bilateral consolidations with ground glass opacities in the periphery. His CT images shows decrease in size of left upper lobe nodule as well as mediastinal lymph nodes. In conjunction, he also has bilateral pulmonary emboli, most likely secondary to noncompliance with anticoagulation therapy which is also contributing to hypoxia. Recommendations Continue with supplemental oxygenation to maintain SaO2 above 92%. High flow nasal cannula or BiPAP if needed. I would continue to treat empirically for community-acquired pneumonia. Obtain a pro-calcitonin level. Obtain sputum cultures. Will send ESR and CRP. Due to degree of hypoxia , bronchoscopy can not be safely performed with out general anesthesia for protection of his airway. Nonetheless, should be considered if he does not improve from a clinical standpoint to obtain cultures and take biopsies. In the meantime, continue to give Prednisone (at least 60 mg/day) for two weeks , with a gradual taper over three to twelve weeks. 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 At this time I would continue with DVT/PE is full dose Lovenox, as patient does have history of malignancy. This will probably be life long at this point. He should have full PFT to evaluate lung function with lung volumes and DLCO upon discharge.
[2017-01-31] MEDS: DIAZEPAM 2MG TAB PO PRN (20:58)
[2017-01-31] MEDS: INSULIN HUMAN NPH SC SCH (22:18)
[2017-01-31] MEDS: ZOLPIDEM TARTRATE 10 MG TAB PO SCH (22:22)
[2017-02-01] VITALS (7 sets, daily range): BP systolic 119–157; BP diastolic 71–81; PULSE 75–113; TEMP 36.4–36.6; O2SAT 90–98
[2017-02-01] MEDS: DIAZEPAM 2MG TAB PO PRN ×3 (07:30→23:32)
[2017-02-01] MEDS: TRAMADOL HCL 50 MG TAB PO PRN ×2 (07:30→15:22)
[2017-02-01] MEDS: CEFEPIME IV 2,000 MG in SYRINGE 7.5 ML IV SCH ×3 (07:31→23:32)
[2017-02-01] MEDS: METHADONE HCL 10 MG TAB PO SCH ×4 (07:31→22:26)
[2017-02-01] MEDS: ASPIRIN 325 MG ECTAB PO SCH (07:32)
[2017-02-01] MEDS: CHOLECALCIFEROL 1000 INTER.UNIT TAB PO SCH (07:32)
[2017-02-01] MEDS: INSULIN HUMAN NPH SC SCH ×2 (07:34→22:25)
[2017-02-01 07:48] LABS: HEMATOCRIT 32.6 % (42-52); MEAN CELL VOLUME 97.3 fL (80-100); MEAN CORPUSCULAR HEMOGLOBIN 30.4 pg (25-34); MEAN CORPUSCULAR HGB CONC 31.3 g/dl (32-36); MEAN PLATELET VOLUME 10.2 fL (7.4-10.4); PLATELET COUNT 191 K/uL (130-400); RED BLOOD COUNT 3.35 M/uL (4.7-6.1); WHITE BLOOD COUNT 7.87 K/uL (4.8-10.8)
[2017-02-01 08:22] LABS: C-REACTIVE PROTEIN 10.3 mg/dl (0-0.29); CALCIUM 9.4 mg/dl (8.5-10.1); CREATININE 0.84 mg/dl (0.60-1.40); POTASSIUM 3.8 mmol/L (3.5-5.1)
[2017-02-01] MEDS: INSULIN HUMAN REGULAR SC SCH ×3 (08:45→17:45)
[2017-02-01] MEDS: LEVOFLOXACIN 750 MG TAB PO SCH (11:06)
[2017-02-01] MEDS: ENOXAPARIN 150 MG/1ML SYR SQ SCH ×2 (11:07→22:19)
[2017-02-01] MEDS ORDERED: SODIUM CHLORIDE 0.65% NA SOLN 45 ML (OCEAN) ONE (12:10)
--- NOTE | 2017-02-01 15:42 | Progress Note ---
Medicine Progress Note Date & Time of Visit: Feb 01, 2017 at 15:42 . Subjective No fever. Occasional nonproductive cough. Mild chest discomfort with deep inspiration. No nausea or vomiting. No diarrhea. No urinary symptoms. . Objective Last 8 Hrs Date Time Temp Pulse Resp B/P (MAP) Pulse Ox O2 Delivery O2 Flow Rate FiO2 02/01/17 15:25 36.4 113 24 157/81 (106) 90 Nasal Cannula 5.0 02/01/17 12:20 Nasal Cannula 5.0 02/01/17 11:33 36.5 96 18 151/71 (97) 90 Nasal Cannula 5.0 02/01/17 09:03 95 Nasal Cannula 5.0 02/01/17 08:00 Nasal Cannula 5.0 Physical Exam: General- sitting on side of bed, no distress Neck- no JVD Lungs- basilar rales Heart- RRR, no gallop Abdomen- + BS, soft, nontender Extremities- no pretibial edema or calf tenderness Neuro- alert . Laboratory Results: Last 24 Hours Test 01/31/17 16:14 01/31/17 20:39 02/01/17 07:21 02/01/17 07:25 Bedside Glucose 129 mg/dl 245 mg/dl 92 mg/dl White Blood Count 7.87 K/uL Red Blood Count 3.35 M/uL Hemoglobin 10.2 g/dL Hematocrit 32.6 % Mean Corpuscular Volume 97.3 fL Mean Corpuscular Hemoglobin 30.4 pg Mean Corpuscular Hemoglobin Concent 31.3 g/dl RDW Standard Deviation 67.5 fL RDW Coefficient of Variation 18.7 % Platelet Count 191 K/uL Mean Platelet Volume 10.2 fL Erythrocyte Sedimentation Rate 76 mm/hr Sodium Level 137 mmol/L Potassium Level 3.8 mmol/L Chloride Level 101 mmol/L Carbon Dioxide Level 30 mmol/L Anion Gap 6.0 mmol/L Blood Urea Nitrogen 24 mg/dl Creatinine 0.84 mg/dl Est Creatinine Clear Calc Drug Dose 148.1 ml/min Estimated GFR () 115.0 Estimated GFR (Non- 99.3 BUN/Creatinine Ratio 28.0 Random Glucose 89 mg/dl Calcium Level 9.4 mg/dl C-Reactive Protein 10.30 mg/dl Pro-B-Type Natriuretic Peptide 139 pg/ml Procalcitonin 0.08 ng/ml Test 02/01/17 11:10 Bedside Glucose 168 mg/dl Assessment & Plan ACUTE HYPOXIA Presented with cough and dyspnea. O2 sat 79% on RA in ED. Received supplemental O2. Underlying pulmonary emboli and pulmonary infiltrates as discussed below. Wean O2 as tolerated. PULMONARY EMBOLI CTA chest demonstrated multilobar segmental and subsegmental bilateral pulmonary emboli. Prior history of upper extremity DVT. Underlying small cell Ca of lung. Restarted on enoxaparin. Pharmacy consulted to assist with management. Anti-Xa level tomorrow. PULMONARY INFILTRATES Pneumonia vs radiation pneumonitis. Blood cultures negative thus far. No sputum obtained for gram stain / C&S. Continue prednisone + antibiotic therapy with levofloxacin and cefepime. 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 Management per Oncology services. SUSPECTED PULMONARY HYPERTENSION Per CT chest. TTE ordered. DM TYPE 2 Well-controlled at home. Hgb A1C = 6.4. FBS this morning = 92. Continue usual routine of Novolin N + Novolin R. VTE PROPHYLAXIS SQ enoxaparin for acute pulmonary emboli. DISPOSITION Expected discharge to home. Family Medicine follow-up with Dr. Zamudio. Medical Oncology follow-up with Dr. Brett Gale. Radiation Oncology follow-up with Dr. Guanakito Gale. . Consultants: Pulm-Dr. Jena Vasques Onc-Dr. Geena Gale Onc- Dr. Jolynn Gale Current Inpatient Medications: Current Inpatient Medications Medications (Trade) Dose Ordered Sig/Prince Route Start Time Stop Time Status Last Admin Dose Admin Ioversol (Optiray 320) 125 ml UD PRN IV 01/30/17 11:45 02/03/17 11:44 Cefepime HCl (Consult) 1 ea UD PRN N/A 01/30/17 15:47 03/01/17 15:46 Ondansetron HCl (Zofran Inj) 4 mg Q6H PRN IV 01/30/17 15:30 03/01/17 15:29 Glucose (Glucose 40% Gel) 15-30 GRAMS 15 GRAMS... UD PRN PO 01/30/17 15:30 03/01/17 15:29 Glucose (Glucose Chew Tab) 4-8 Tablets 4 Tabl... UD PRN PO 01/30/17 15:30 03/01/17 15:29 Dextrose (Dextrose 50% 50ML Syringe) 25-50ML OF 50% DW IV FOR... UD PRN IV 01/30/17 15:30 03/01/17 15:29 Glucagon (Glucagon Inj) 1 mg UD PRN SQ 01/30/17 15:30 03/01/17 15:29 Levalbuterol (Xopenex 0.31MG/ 3ML Neb) 0.31 mg Q4 PRN INH 01/30/17 15:30 03/01/17 15:29 Aspirin (Ecotrin Tab) 325 mg QAM PO 01/31/17 09:00 03/02/17 08:59 02/01/17 07:32 325 MG Dimenhydrinate (Dramamine Tab) 50 mg Q4H PRN PO 01/30/17 15:45 03/01/17 15:44 Prochlorperazine Maleate (Compazine Tab) 10 mg Q6 PRN PO 01/30/17 15:45 03/01/17 15:44 Tramadol HCl (Ultram Tab) 50 mg Q6H PRN PO 01/30/17 15:45 03/01/17 15:44 02/01/17 15:22 50 MG Zolpidem Tartrate (Ambien Tab) 10 mg HS PO 01/30/17 21:00 03/01/17 20:59 01/31/17 22:22 10 MG Cholecalciferol (Vitamin D Tab) 5,000 inter.unit DAILY PO 01/31/17 09:00 03/02/17 08:59 02/01/17 07:32 5,000 INTER.UNIT Levofloxacin (Levaquin Tab) 750 mg DAILY@11 PO 01/31/17 11:00 02/05/17 11:01 02/01/17 11:06 750 MG Cefepime HCl 2000 mg/Syringe 20 ml @ 5 mls/min Q8@0000,0800,1600 IV 01/30/17 17:11 02/06/17 17:10 02/01/17 07:31 5 MLS/MIN Miscellaneous Information (Order Awaiting Action) 1 ea QS N/A 01/31/17 00:00 03/02/17 00:00 Miscellaneous Information (Consult Glycemic Management Pharmacy) 1 ea UD PRN N/A 01/30/17 20:51 03/01/17 20:50 Enoxaparin Sodium (Lovenox Inj) 141 mg Q12@1000,2200 SQ 01/30/17 22:28 03/01/17 22:27 02/01/17 11:07 141 MG Oxymetazoline HCl (Afrin 0.05% Nasal [place]) 1 sprays DAILY PRN BJ 01/31/17 01:15 03/02/17 01:14 01/31/17 23:56 1 SPRAYS Methadone HCl (Dolophine Tab) 10 mg QIDM PO 01/31/17 08:00 02/14/17 07:59 02/01/17 12:06 10 MG Insulin Human Regular (novoLIN-R) SLIDING SCALE IF C... AC SC 01/31/17 11:00 03/02/17 10:59 02/01/17 12:34 21 UNITS Insulin Human NPH (novoLIN-N NPH) SEE PROTOCOL TEXT BID SC 01/31/17 21:00 03/02/17 20:59 01/31/17 22:18 60 UNITS Diazepam (Valium Tab) 4 mg Q8H PRN PO 01/31/17 14:30 03/01/17 15:44 02/01/17 15:21 4 MG Calcium Carbonate (Tums Chew Tab) 500 mg BID PRN PO 01/31/17 14:30 03/02/17 14:29 Prednisone (PredniSONE TAB) 60 mg DAILY PO 02/01/17 09:00 03/03/17 08:59 02/01/17 07:33 60 MG Miscellaneous Information (Nursing Verbal Med Order) 1 ea ONE ONCE N/A 02/01/17 15:45 02/01/17 15:46 UNV
[2017-02-01] MEDS ORDERED: NURSING VERBAL MED ORDER ONE (15:45)
--- NOTE | 2017-02-01 16:38 | Pulmonology Progress Note ---
Pulmonary Progress Note Date of Service Feb 01, 2017. Attending Dr. Em Subjective Patient seen and examined. He is feeling better today. Less short of breath. Objective VS reviewed. He still remains on 5L NC. Over the last 24 hours his cumulative balance is about 970 mL. Gen: AAOx3, no acute respiratory distress. Speaking in full sentences without use the accessory muscles. CVS: S1-S2, rate and rhythm regular Lungs: Crackles at left lung base, otherwise good air entry bilaterally. Abdomen: Obese, nontender, bowel sounds positive. Extremities: No edema, no cyanosis, no clubbing. Labs reviewed. Sputum cultures pending. Blood cultures from 01/30/2017 showed no growth to date. ESR 76, CRP 10. Pro-calcitonin 0.08. Imaging reviewed and reviewed by me. Medications reviewed. 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 Carcamo still appears to be quite hypoxic today although less dyspneic. Recommendations Continue with supplemental oxygenation to maintain SaO2 above 92%. High flow nasal cannula or BiPAP if needed. Despite normal pro-calcitonin level I would continue to treat empirically for pneumonia for at least 5-7 days. Sputum cultures are pending Due to degree of hypoxia , bronchoscopy can not be safely performed with out general anesthesia for protection of his airway. Nonetheless, should be considered if he does not improve from a clinical standpoint to obtain cultures and take biopsies. Continue to give Prednisone (at least 60 mg/day) for two weeks, with a gradual taper over three to twelve weeks. 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 At this time I would continue with DVT/PE treatment with full dose Lovenox, as patient does have history of malignancy. I have also added a TTE to evaluate for pulmonary hypertension. He should have full PFT to evaluate lung function with lung volumes and DLCO upon discharge. Oncology and Radiation oncology are on board and following. Data Medications: Current Inpatient Medications Medications (Trade) Dose Ordered Sig/Prince Route Start Time Stop Time Status Last Admin Dose Admin Ioversol (Optiray 320) 125 ml UD PRN IV 01/30/17 11:45 02/03/17 11:44 Cefepime HCl (Consult) 1 ea UD PRN N/A 01/30/17 15:47 03/01/17 15:46 Ondansetron HCl (Zofran Inj) 4 mg Q6H PRN IV 01/30/17 15:30 03/01/17 15:29 Glucose (Glucose 40% Gel) 15-30 GRAMS 15 GRAMS... UD PRN PO 01/30/17 15:30 03/01/17 15:29 Glucose (Glucose Chew Tab) 4-8 Tablets 4 Tabl... UD PRN PO 01/30/17 15:30 03/01/17 15:29 Dextrose (Dextrose 50% 50ML Syringe) 25-50ML OF 50% DW IV FOR... UD PRN IV 01/30/17 15:30 03/01/17 15:29 Glucagon (Glucagon Inj) 1 mg UD PRN SQ 01/30/17 15:30 03/01/17 15:29 Levalbuterol (Xopenex 0.31MG/ 3ML Neb) 0.31 mg Q4 PRN INH 01/30/17 15:30 03/01/17 15:29 Aspirin (Ecotrin Tab) 325 mg QAM PO 01/31/17 09:00 03/02/17 08:59 02/01/17 07:32 325 MG Dimenhydrinate (Dramamine Tab) 50 mg Q4H PRN PO 01/30/17 15:45 03/01/17 15:44 Prochlorperazine Maleate (Compazine Tab) 10 mg Q6 PRN PO 01/30/17 15:45 03/01/17 15:44 Tramadol HCl (Ultram Tab) 50 mg Q6H PRN PO 01/30/17 15:45 03/01/17 15:44 02/01/17 15:22 50 MG Zolpidem Tartrate (Ambien Tab) 10 mg HS PO 01/30/17 21:00 03/01/17 20:59 01/31/17 22:22 10 MG Cholecalciferol (Vitamin D Tab) 5,000 inter.unit DAILY PO 01/31/17 09:00 03/02/17 08:59 02/01/17 07:32 5,000 INTER.UNIT Levofloxacin (Levaquin Tab) 750 mg DAILY@11 PO 01/31/17 11:00 02/05/17 11:01 02/01/17 11:06 750 MG Cefepime HCl 2000 mg/Syringe 20 ml @ 5 mls/min Q8@0000,0800,1600 IV 01/30/17 17:11 02/06/17 17:10 02/01/17 07:31 5 MLS/MIN Miscellaneous Information (Order Awaiting Action) 1 ea QS N/A 01/31/17 00:00 03/02/17 00:00 Miscellaneous Information (Consult Glycemic Management Pharmacy) 1 ea UD PRN N/A 01/30/17 20:51 03/01/17 20:50 Enoxaparin Sodium (Lovenox Inj) 141 mg Q12@1000,2200 SQ 01/30/17 22:28 03/01/17 22:27 02/01/17 11:07 141 MG Oxymetazoline HCl (Afrin 0.05% Nasal [place]) 1 sprays DAILY PRN BJ 01/31/17 01:15 03/02/17 01:14 01/31/17 23:56 1 SPRAYS Methadone HCl (Dolophine Tab) 10 mg QIDM PO 01/31/17 08:00 02/14/17 07:59 02/01/17 12:06 10 MG Insulin Human Regular (novoLIN-R) SLIDING SCALE IF C... AC SC 01/31/17 11:00 03/02/17 10:59 02/01/17 12:34 21 UNITS Insulin Human NPH (novoLIN-N NPH) SEE PROTOCOL TEXT BID SC 01/31/17 21:00 03/02/17 20:59 01/31/17 22:18 60 UNITS Diazepam (Valium Tab) 4 mg Q8H PRN PO 01/31/17 14:30 03/01/17 15:44 02/01/17 15:21 4 MG Calcium Carbonate (Tums Chew Tab) 500 mg BID PRN PO 01/31/17 14:30 03/02/17 14:29 Prednisone (PredniSONE TAB) 60 mg DAILY PO 02/01/17 09:00 03/03/17 08:59 02/01/17 07:33 60 MG Miscellaneous Information (Nursing Verbal Med Order) 1 ea ONE ONCE N/A 02/01/17 15:45 02/01/17 15:46 UNV I & O: 24-Hour Column 02/02/17 08:00 Intake Total 240 ml Balance 240 ml Vital Signs: Date Time Temp Pulse Resp B/P (MAP) Pulse Ox O2 Delivery O2 Flow Rate FiO2 02/01/17 15:25 36.4 113 24 157/81 (106) 90 Nasal Cannula 5.0 02/01/17 12:20 Nasal Cannula 5.0 02/01/17 11:33 36.5 96 18 151/71 (97) 90 Nasal Cannula 5.0 02/01/17 09:03 95 Nasal Cannula 5.0 02/01/17 08:00 Nasal Cannula 5.0 02/01/17 07:05 36.6 77 18 133/80 (97) 95 Nasal Cannula 5.0 02/01/17 04:26 36.6 75 18 130/79 (96) 98 Nasal Cannula 5.0 02/01/17 04:00 Nasal Cannula 5.0 02/01/17 00:00 Nasal Cannula 5.0 01/31/17 23:39 36.5 100 20 124/72 (89) 95 Nasal Cannula 5.0 01/31/17 21:10 37.1 97 20 147/73 (97) 92 Room Air 01/31/17 20:00 92 Nasal Cannula 5.0 Laboratory Results: Last 24 Hours Test 01/31/17 20:39 02/01/17 07:21 02/01/17 07:25 02/01/17 11:10 Bedside Glucose 245 mg/dl 92 mg/dl 168 mg/dl White Blood Count 7.87 K/uL Red Blood Count 3.35 M/uL Hemoglobin 10.2 g/dL Hematocrit 32.6 % Mean Corpuscular Volume 97.3 fL Mean Corpuscular Hemoglobin 30.4 pg Mean Corpuscular Hemoglobin Concent 31.3 g/dl RDW Standard Deviation 67.5 fL RDW Coefficient of Variation 18.7 % Platelet Count 191 K/uL Mean Platelet Volume 10.2 fL Erythrocyte Sedimentation Rate 76 mm/hr Sodium Level 137 mmol/L Potassium Level 3.8 mmol/L Chloride Level 101 mmol/L Carbon Dioxide Level 30 mmol/L Anion Gap 6.0 mmol/L Blood Urea Nitrogen 24 mg/dl Creatinine 0.84 mg/dl Est Creatinine Clear Calc Drug Dose 148.1 ml/min Estimated GFR () 115.0 Estimated GFR (Non- 99.3 BUN/Creatinine Ratio 28.0 Random Glucose 89 mg/dl Calcium Level 9.4 mg/dl C-Reactive Protein 10.30 mg/dl Pro-B-Type Natriuretic Peptide 139 pg/ml Procalcitonin 0.08 ng/ml
[2017-02-01] MEDS: ZOLPIDEM TARTRATE 10 MG TAB PO SCH (22:25)
[2017-02-02] MEDS: OXYMETAZOLINE HCL 0.05% NA SPR 15 ML BTL NAE PRN (02:02)
[2017-02-02 03:49] VITALS: BP 120/70; PULSE 84; TEMP 36.4; O2SAT 97
[2017-02-02 07:45] VITALS: BP 129/73; PULSE 104; TEMP 36.9; O2SAT 90
[2017-02-02] MEDS ORDERED: PERFLUTREN LIPID MICROSPHERE (DEFINITY) IV ONE (07:58)
[2017-02-02] MEDS: TRAMADOL HCL 50 MG TAB PO PRN ×3 (07:59→23:48)
[2017-02-02] MEDS: CEFEPIME IV 2,000 MG in SYRINGE 7.5 ML IV SCH ×3 (07:59→23:48)
[2017-02-02] MEDS: METHADONE HCL 10 MG TAB PO SCH ×4 (07:59→22:25)
[2017-02-02] MEDS: ASPIRIN 325 MG ECTAB PO SCH (08:01)
[2017-02-02] MEDS: CHOLECALCIFEROL 1000 INTER.UNIT TAB PO SCH (08:02)
[2017-02-02] MEDS: INSULIN HUMAN REGULAR SC SCH ×4 (08:13→17:25)
[2017-02-02] MEDS: INSULIN HUMAN NPH SC SCH ×2 (08:15→22:29)
--- NOTE | 2017-02-02 10:20 | ECHOCARDIOGRAM REPORT ---
*NOTICE TO RECEIVING DEMOCRAT AGENCY This information is strictly Confidential and protected under [place] law. [place] law prohibits you from making any further disclosure of this information unless further disclosure is expressly permitted by the written consent of the person to whom it pertains or is authorized by law. A general authorization for the release of medical or other information is not sufficient for this purpose. Hospital accepts no responsibility if the information is made available to any other person, INCLUDING THE PATIENT. Interpretation Summary * Name: LAVERNE BRADY Study Date: 02/02/2017 07:04 AM BP: 129/73 mmHg * Patient Location: [facility] HR: 104 * : 1960 (M/d/yyyy) Gender: Male Height: 74 in * Age: 56 yrs Ethnicity: CA Weight: 294 lb * Ordering Physician: KIMBERLY. BELEM AWAN * Performed By: Merle Vargas RDCS * * Reason For Study: PVC'S * BSA: 2.6 m2 * -- Conclusions -- * Normal LV chamber size with mild concentric LVH. * Normal LV systolic function, EF 65-70%. * No segmental left ventricular wall motion abnormalities are noted. * Grade I diastolic dysfunction. * No significant valvular pathology. * TR jet inadequate to calculate PASP. Procedure Details * A complete two-dimensional transthoracic echocardiogram was performed (2D, M-mode, Doppler and color flow Doppler). * The study was technically difficult. * There were technical limitations due to patient's poor positioning and body habitus. * A contrast injection of Definity was performed to improve assessment of LV function. * Contrast was injected into an intravenous site in the right arm. * One vial of Definity ultrasound contrast was diluted in normal saline to a total volume of 10 ml. A total of '5' ml of solution was administered during imaging. * Lot # [id number] of Definity utilized for procedure. * Expiration date 03/12. * The attending nurse who injected the contrast agent was bon rose RN. Left Ventricle * The left ventricle is normal in size. * There is mild concentric left ventricular hypertrophy. * Ejection Fraction = 65-70%. * Left ventricular systolic function is normal. * No segmental left ventricular wall motion abnormalities are noted. * The left ventricular wall motion is normal. Right Ventricle * The right ventricular cavity size is normal (basal dimension <4.2 cm in right ventricular apical 4-chamber view). * The right ventricular systolic function is normal as assessed by tricuspid annular plane systolic excursion (TAPSE) (normal >1.5 cm). Atria * The left atrial size is normal. * Right atrium not well visualized. Mitral Valve * The mitral valve is normal in structure and function. Tricuspid Valve * The tricuspid valve is normal in structure and function. Aortic Valve * The aortic valve is not well visualized. * No hemodynamically significant valvular aortic stenosis. * There is no significant aortic regurgitation. Pulmonic Valve * The pulmonary valve is not well seen, but the Doppler examination is normal without significant regurgitation or stenosis. Great Vessels * The aortic root and proximal ascending aorta are normal sized. Pericardium/Pleural * There is no pericardial effusion. Left Ventricular Diastolic Function * Grade I diastolic dysfunction, (abnormal relaxation pattern). MMode 2D Measurements and Calculations IVSd 1.1 cm IVSs 1.6 cm LVIDd 5.1 cm LVIDs 3.6 cm LVPWd 1.3 cm LVPWs 2.1 cm IVS/LVPW 0.86 FS 29.9 % EDV(Teich) 122.2 ml ESV(Teich) 52.8 ml EF(Teich) 56.8 % EDV(cubed) 130.4 ml ESV(cubed) 44.9 ml EF(cubed) 65.6 % % IVS thick 38.5 % % LVPW thick 55.9 % LV mass(C)d 246.4 grams LV mass(C)dI 96.3 grams/m\S\2 LV mass(C)s 271.3 grams LV mass(C)sI 106.0 grams/m\S\2 SV(Teich) 69.4 ml SI(Teich) 27.1 ml/m\S\2 SV(cubed) 85.5 ml SI(cubed) 33.4 ml/m\S\2 ACS 1.2 cm asc Aorta Diam 3.0 cm LVOT diam 2.5 cm LVOT area 4.8 cm\S\2 LVAd ap4 32.9 cm\S\2 LVLd ap4 8.9 cm EDV(MOD-sp4) 101.0 ml EDV(sp4-el) 103.6 ml LVAs ap4 17.1 cm\S\2 LVLs ap4 7.8 cm ESV(MOD-sp4) 30.7 ml ESV(sp4-el) 31.7 ml EF(MOD-sp4) 69.6 % EF(sp4-el) 69.5 % LVAd ap2 39.1 cm\S\2 LVLd ap2 9.0 cm EDV(MOD-sp2) 135.5 ml EDV(sp2-el) 143.3 ml LVAs ap2 18.4 cm\S\2 LVLs ap2 6.4 cm ESV(MOD-sp2) 43.0 ml ESV(sp2-el) 44.7 ml EF(MOD-sp2) 68.3 % EF(sp2-el) 68.8 % LVLd %diff 2.1 % EDV(MOD-bp) 116.5 ml LVLs %diff -21.16 % ESV(MOD-bp) 40.5 ml EF(MOD-bp) 65.2 % SV(MOD-sp4) 70.3 ml SI(MOD-sp4) 27.5 ml/m\S\2 SV(MOD-sp2) 92.5 ml SI(MOD-sp2) 36.1 ml/m\S\2 SV(MOD-bp) 76.0 ml SI(MOD-bp) 29.7 ml/m\S\2 SV(sp4-el) 72.0 ml SI(sp4-el) 28.1 ml/m\S\2 SV(sp2-el) 98.6 ml SI(sp2-el) 38.5 ml/m\S\2 Doppler Measurements and Calculations MV E max sabina 67.9 cm/sec MV A max sabina 81.5 cm/sec MV E/A 0.83 MV dec time 0.19 sec Ao V2 max 133.7 cm/sec Ao max PG 7.2 mmHg Ao max PG (full) 2.1 mmHg NIGEL(V,A) 4.0 cm\S\2 NIGEL(V,D) 4.0 cm\S\2 LV V1 max PG 5.1 mmHg LV V1 max 112.7 cm/sec PA V2 max 127.8 cm/sec PA max PG 6.5 mmHg TR max sabina 112.2 cm/sec
[2017-02-02] MEDS: ENOXAPARIN 150 MG/1ML SYR SQ SCH (10:28)
[2017-02-02] MEDS: LEVOFLOXACIN 750 MG TAB PO SCH (10:28)
--- NOTE | 2017-02-02 10:56 | Pharmacy Progress Note ---
Pharmacy Glycemic Sign Off Nt Date of Service Feb 02, 2017. Assessment & Plan ASSESSMENT: * Pharmacy was consulted by Dr Maxwell on 01/30/17 for glycemic control and to write orders per [facility] inpatient glycemic control protocol. * Major changes made by pharmacy to antidiabetic regimen include: * NPH 0-60 units BIDM (depending on BSG trend) * Regular Insulin AC only: CF 10/ CR 4 * Patient has been refusing various insulin doses, in addition to dictating specific doses versus what calculator suggests * At this time, pharmacy unable to titrate insulin based on insulin refusal PLAN FOR INPATIENT GLYCEMIC CONTROL: No changes needed to current regimen. * Continue basal insulin with NPH 0-60 units (was to be based on BSG trend; however, pt is dictating what he feels comfortable with) * Continue Regular per scale AC only - Patient does not want HS check * Goal range = 110 - 150 mg/dl * CF = 10 mg/dl/unit * CR = 1 unit for ever 4 g CHO consumed * A1c added to discharge instructions to be communicated to PCP. * Pharmacy is signing off of glycemic consult and will no longer be making adjustments to inpatient regimen. Please feel free to re-consult if needed. Thank you.
[2017-02-02] MEDS: DIAZEPAM 2MG TAB PO PRN ×2 (11:58→20:57)
[2017-02-02 12:07] VITALS: BP 130/80; PULSE 95; TEMP 36.6; O2SAT 94
[2017-02-02 16:21] VITALS: BP 138/82; PULSE 83; TEMP 36.5; O2SAT 93
--- NOTE | 2017-02-02 16:52 | Pulmonology Progress Note ---
Pulmonary Progress Note Date of Service Feb 02, 2017. Attending Dr. Em Subjective Patient seen and examined this morning. He states that he is feeling a lot better. He is less dyspneic on exertion with ambulation. He still having intermittent dry cough. He denies any chest pain or shortness of breath at rest. This morning he was noted to have some epistaxis that resolved resolved with nasal saline and humidified oxygen. Objective VS reviewed. MAXIMUM TEMPERATURE 36.9, blood pressure 120/70 to 138/82, pulse 82-104, respiratory rate 18-24, pulse oximetry 90-97% on 2-5 L/m nasal cannula. Over the last 24 hours his cumulative balance is about 1750 milliliters. Gen: AAOx3, no acute respiratory distress. Speaking in full sentences without use the accessory muscles. CVS: S1-S2, rate and rhythm regular Lungs: Clear to auscultation bilaterally. Abdomen: Obese, nontender, bowel sounds positive. Extremities: No edema, no cyanosis, no clubbing. Labs reviewed. WBC 15-10-7. ESR 76, CRP 10. Pro-calcitonin 0.08. Sputum cultures-canceled Blood cultures from 01/30/2017 showed no growth to date. Imaging reviewed and reviewed by me. TTE 02/02/2017 * -- Conclusions -- * Normal LV chamber size with mild concentric LVH. * Normal LV systolic function, EF 65-70%. * No segmental left ventricular wall motion abnormalities are noted. * Grade I diastolic dysfunction. * No significant valvular pathology. * TR jet inadequate to calculate PASP. Medications reviewed. 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 Carcamo appears to be improving from a respiratory standpoint he is on 2 L nasal cannula done from 5 L yesterday. He is less dyspneic and ambulating without difficulties. Noted to have some epistaxis that resolved with nasal saline the minimum heart oxygen. TTE shows diastolic dysfunction with no elevation in right heart pressures to suggest pulmonary hypertension. Recommendations Continue with supplemental oxygenation to maintain SaO2 above 92%. Taper as tolerated. For epistaxis continue with nasal saline and humidified oxygen. Continue to treat for pneumonia for at least 5-7 days. Patient is improving from a respiratory standpoint there for a do not think bronchoscopy is warranted at this time Continue to give Prednisone (at least 60 mg/day) for two weeks, with a gradual taper over three to twelve weeks. 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 At this time I would continue with DVT/PE treatment with full dose Lovenox, as patient does have history of malignancy. Patient has grade 1 diastolic dysfunction. He may benefit from low-dose Lasix for diuresis to optimize pulmonary function. He should have full PFT to evaluate lung function with lung volumes and DLCO upon discharge. I anticipate discharge over the weekend. Oncology and Radiation oncology are on board and following. He can follow up with pulmonary in 1 week post hospital discharge for repeat imaging and tapering of steroids. Please contact me if you've any further questions or concerns. Data Medications: Current Inpatient Medications Medications (Trade) Dose Ordered Sig/Prince Route Start Time Stop Time Status Last Admin Dose Admin Ioversol (Optiray 320) 125 ml UD PRN IV 01/30/17 11:45 02/03/17 11:44 Cefepime HCl (Consult) 1 ea UD PRN N/A 01/30/17 15:47 03/01/17 15:46 Ondansetron HCl (Zofran Inj) 4 mg Q6H PRN IV 01/30/17 15:30 03/01/17 15:29 Glucose (Glucose 40% Gel) 15-30 GRAMS 15 GRAMS... UD PRN PO 01/30/17 15:30 03/01/17 15:29 Glucose (Glucose Chew Tab) 4-8 Tablets 4 Tabl... UD PRN PO 01/30/17 15:30 03/01/17 15:29 Dextrose (Dextrose 50% 50ML Syringe) 25-50ML OF 50% DW IV FOR... UD PRN IV 01/30/17 15:30 03/01/17 15:29 Glucagon (Glucagon Inj) 1 mg UD PRN SQ 01/30/17 15:30 03/01/17 15:29 Levalbuterol (Xopenex 0.31MG/ 3ML Neb) 0.31 mg Q4 PRN INH 01/30/17 15:30 03/01/17 15:29 Aspirin (Ecotrin Tab) 325 mg QAM PO 01/31/17 09:00 03/02/17 08:59 02/02/17 08:01 325 MG Dimenhydrinate (Dramamine Tab) 50 mg Q4H PRN PO 01/30/17 15:45 03/01/17 15:44 Prochlorperazine Maleate (Compazine Tab) 10 mg Q6 PRN PO 01/30/17 15:45 03/01/17 15:44 Tramadol HCl (Ultram Tab) 50 mg Q6H PRN PO 01/30/17 15:45 03/01/17 15:44 02/02/17 07:59 50 MG Zolpidem Tartrate (Ambien Tab) 10 mg HS PO 01/30/17 21:00 03/01/17 20:59 02/01/17 22:25 10 MG Cholecalciferol (Vitamin D Tab) 5,000 inter.unit DAILY PO 01/31/17 09:00 03/02/17 08:59 02/02/17 08:02 5,000 INTER.UNIT Levofloxacin (Levaquin Tab) 750 mg DAILY@11 PO 01/31/17 11:00 02/05/17 11:01 02/02/17 10:28 750 MG Cefepime HCl 2000 mg/Syringe 20 ml @ 5 mls/min Q8@0000,0800,1600 IV 01/30/17 17:11 02/06/17 17:10 02/02/17 15:44 5 MLS/MIN Enoxaparin Sodium (Lovenox Inj) 141 mg Q12@1000,2200 SQ 01/30/17 22:28 03/01/17 22:27 02/02/17 10:28 141 MG Oxymetazoline HCl (Afrin 0.05% Nasal [place]) 1 sprays DAILY PRN BJ 01/31/17 01:15 03/02/17 01:14 02/02/17 02:02 1 SPRAYS Methadone HCl (Dolophine Tab) 10 mg QIDM PO 01/31/17 08:00 02/14/17 07:59 02/02/17 11:59 10 MG Insulin Human Regular (novoLIN-R) SLIDING SCALE IF C... AC SC 01/31/17 11:00 03/02/17 10:59 02/02/17 15:29 35 UNITS Insulin Human NPH (novoLIN-N NPH) SEE PROTOCOL TEXT BID SC 01/31/17 21:00 03/02/17 20:59 02/02/17 08:15 60 UNITS Diazepam (Valium Tab) 4 mg Q8H PRN PO 01/31/17 14:30 03/01/17 15:44 02/02/17 11:58 4 MG Calcium Carbonate (Tums Chew Tab) 500 mg BID PRN PO 01/31/17 14:30 03/02/17 14:29 Prednisone (PredniSONE TAB) 60 mg DAILY PO 02/01/17 09:00 03/03/17 08:59 02/02/17 08:02 60 MG I & O: 24-Hour Column 02/03/17 08:00 Intake Total 480 ml Balance 480 ml Vital Signs: Date Time Temp Pulse Resp B/P (MAP) Pulse Ox O2 Delivery O2 Flow Rate FiO2 02/02/17 16:21 36.5 83 18 138/82 (100) 93 Room Air 02/02/17 12:07 36.6 95 20 130/80 (97) 94 Nasal Cannula 2.0 02/02/17 12:00 Nasal Cannula 2.0 02/02/17 08:00 Nasal Cannula 2.0 02/02/17 07:45 36.9 104 24 129/73 (91) 90 Room Air 02/02/17 04:00 Nasal Cannula 5.0 02/02/17 03:49 36.4 84 18 120/70 (87) 97 Nasal Cannula 5.0 02/02/17 00:00 Nasal Cannula 5.0 02/01/17 23:34 36.4 90 20 119/72 (88) 98 Nasal Cannula 5.0 02/01/17 20:00 Nasal Cannula 5.0 02/01/17 19:40 36.5 88 18 123/76 (92) 97 5.0 Laboratory Results: Last 24 Hours Test 02/01/17 20:32 02/02/17 07:26 02/02/17 11:36 02/02/17 14:39 Bedside Glucose 143 mg/dl 158 mg/dl 272 mg/dl 309 mg/dl Test 02/02/17 15:29 Heparin Anti-Xa Act, Low Molec Wt 1.33 IU/ML
--- NOTE | 2017-02-02 19:41 | Pharmacy Progress Note ---
Enoxaparin Dosing Consult Date of Service: Feb 02, 2017. Pharmacy Dosing Scope Pharmacy is consulted to review the use of enoxaparin in a special risk patient population possibly prone to accumulate drug: extended therapy/obesity & to continue/recommend change in the setting of ordered THERAPEUTIC enoxaparin sub- q dosing therapy, order appropriate labs and adjust drug/dose/frequency. Subjective The patient is a 56 year old male admitted on Jan 30, 2017 at 15:20 for Bilateral Pulmonary Embolism, Pneumonia. Patient is currently on day # 4 ofTHERAPEUTIC enoxaparin sub-q Pertinent PMH: active malignancy (SCLC) and upper extremity DVT Objective Height (Feet): 6 Height (Inches): 3.00 Weight (Kilograms): 132.300 Laboratory Results: Last 72 Hours Test 01/31/17 07:02 02/01/17 07:25 02/02/17 15:29 Platelet Count 182 K/uL 191 K/uL Heparin Anti-Xa Act, Low Molec Wt 1.33 IU/ML Assessment & Plan Assessment * Current enoxaparin dose 141 mg SC BID for PE * Anticipate prolonged therapy 2nd active malignancy * Patient was recently (December 2016) receiving Lovenox for upper extremity DVT. * Patient discontinued, possibly without oncologist knowledge, due to injection pain. * External medication history indicates patient was filling 120 mg syringes (# 48 syringes for a 30 day supply) * Goal Xa level 0.5-1.0 IV/mL for therapeutic enoxaparin dosed BID * Current Xa level of 1.33 IU/mL is supratherapeutic * This was drawn after 3 days of therapy (recommended range 3-7 days therefore scheduled after appropriate dose) * This was drawn 5 hours after subQ dose (recommended range 3-4 hours after subQ. This level is therefore falsely low as it does not represent a peak) * SCr was slightly elevated on 01/30 but has been trending down * Would typically not recommend dose decrease based solely on Xa level as it does not always correlate with clinical outcomes. Would also prefer to be more aggressive for this indication (PE) and some accumulation may be expected as patient's renal function was potentially impaired recently. *However*, since dose of 141 mg would be difficult as an outpatient (syringes available as 120 or 150 mg), Xa was elevated despite not being drawn at suggested peak time, and since patient was filling 120 mg syringes prior (#48 for 30 day supply), OK to decrease * Repeat Xa in 3 days (earliest recommended time) Plan * Decrease enoxaparin 120 mg SC Q12H * Repeat Xa 02/05 @ 1400 * OK to continue dosing in thigh (per patient preference) as Xa level indicates drug is being absorbed * Recommend follow-up with outpatient provider to determine how dose of enoxaparin patient was prescribed recently was selected (Enoxaparin 120 mg syringes, dispensed #48 for 30 day supply) We will continue to monitor this patient and make adjustments as needed. Thank you.
[2017-02-02 19:47] VITALS: BP 135/78; PULSE 87; TEMP 36.3; O2SAT 96
--- NOTE | 2017-02-02 20:22 | Hematology/Oncology Prog Note ---
Hematology/Onc Progress Note Date of Service Feb 02, 2017. Subjective 56-year-old male, a case of locally advanced but limited to the chest small cell lung cancer, he received 4 cycles of chemotherapy earlier, also received radiation treatment along with chemotherapy treatment to the large mediastinal mass and the left lung mass, now admitted Hospital for increasing shortness of breath, suspected to have radiation induced pneumonitis, receiving oral prednisone at 60 mg per day, also receiving broad-spectrum antibiotic, also noticed to have bilateral pulmonary embolism, he is on Lovenox therapy. I saw him at bedside, earlier he was receiving nasal cannula oxygen at 5 L/min, now he is on 2 to 3 L/min oxygen saturation has remained around 94-96%, he still complains of shortness of breath when he walks around, no chest pain, cough with scanty white expectant, no hemoptysis, no fever, no nausea or vomiting, no leg edema, he is somewhat anxious about long-term prognosis, he is concerned about long-term use of oxygen therapy in his case. Good appetite. No increasing back pain or bone pain. No bleeding from any sites. On exam: - Alert and oriented x3, well built man, not in any distress. - HEENT: no icterus, no pallor, Throat: Normal. - Neck: No palpable cervical lymphadenopathy. - Chest: Crepitations involving the left lung noted. - Abdomen: soft, nontender, no hepatomegaly, no splenomegaly. - No focal neuro deficit. - Extremities: No leg edema. -WBC 7800, H&H of 10.2/32.6, Platelet count of 191,000, ESR 76 , BUN/Creat: 24/ 0.8, C reactive protein 10.3, proBNP 139, procalcitonin--> 0.08 (02/01/2007). Will continue current medical management including prednisone, Lovenox, broad- spectrum antibiotic with Levaquin and cefepime. Will follow up. Dr. Brett Gale Hem/Onc (This note was completed using the dictation program Fluency Direct. As such, there may be misspellings, word substitutions, or other variations that should not change the essence of the clinical content of this encounter note. If there is need for further clarification, please direct questions to the provider listed above.) Vital Signs Vital Signs Past 12 Hours Date Time Temp Pulse Resp B/P (MAP) Pulse Ox O2 Delivery O2 Flow Rate FiO2 02/02/17 19:47 36.3 87 22 135/78 (97) 96 Nasal Cannula 3.0 02/02/17 16:21 36.5 83 18 138/82 (100) 93 Room Air 02/02/17 16:15 Room Air 02/02/17 12:07 36.6 95 20 130/80 (97) 94 Nasal Cannula 2.0 02/02/17 12:00 Nasal Cannula 2.0
--- NOTE | 2017-02-02 20:28 | Progress Note ---
Medicine Progress Note Date & Time of Visit: Feb 02, 2017 at 17:00 . Subjective No fever. Still dyspneic with minimal exertion. Nonproductive cough. O2 weaned down to 2 L. No chest pain. No nausea or vomiting. Constipated. Blood sugars running high. . Objective Last 8 Hrs Date Time Temp Pulse Resp B/P (MAP) Pulse Ox O2 Delivery O2 Flow Rate FiO2 02/02/17 19:47 36.3 87 22 135/78 (97) 96 Nasal Cannula 3.0 02/02/17 16:21 36.5 83 18 138/82 (100) 93 Room Air 02/02/17 16:15 Room Air Physical Exam: General- no distress Neck- no JVD Lungs- basilar rales Heart- RRR, no gallop Abdomen- + BS, soft, nontender Extremities- no pretibial edema or calf tenderness Neuro- alert . Laboratory Results: Last 24 Hours Test 02/01/17 20:32 02/02/17 07:26 02/02/17 11:36 02/02/17 14:39 Bedside Glucose 143 mg/dl 158 mg/dl 272 mg/dl 309 mg/dl Test 02/02/17 15:29 02/02/17 17:10 02/02/17 20:12 Heparin Anti-Xa Act, Low Molec Wt 1.33 IU/ML Bedside Glucose 123 mg/dl 113 mg/dl Assessment & Plan PULMONARY EMBOLI CTA chest demonstrated multilobar segmental and subsegmental bilateral pulmonary emboli. Prior history of upper extremity DVT. Underlying small cell Ca of lung. Restarted on enoxaparin. Pharmacy consulted to assist with management. Anti-Xa level today. PULMONARY INFILTRATES Pneumonia vs radiation pneumonitis. Blood cultures negative thus far. No sputum obtained for gram stain / C&S. Continue prednisone + antibiotic therapy with levofloxacin and cefepime. ACUTE HYPOXIA Presented with cough and dyspnea. O2 sat 79% on RA in ED. Received supplemental O2. Underlying pulmonary emboli and pulmonary infiltrates as discussed above. Wean O2 as tolerated. 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 Management per Oncology services. SUSPECTED PULMONARY HYPERTENSION Per CT chest. TTE ordered, but not able to assess PASP. DM TYPE 2 Well-controlled at home. Hgb A1C = 6.4. FBS this morning = 158. Continue usual routine of Novolin N + Novolin R. VTE PROPHYLAXIS SQ enoxaparin for acute pulmonary emboli. DISPOSITION Expected discharge to home. Family Medicine follow-up with Dr. Zamudio. Medical Oncology follow-up with Dr. Brett Gale. Radiation Oncology follow-up with Dr. Guanakito Gale. . Consultants: Pulm-Dr. Jena Vasques Onc-Dr. Geena Gale Onc- Dr. Jolynn Gale Current Inpatient Medications: Current Inpatient Medications Medications (Trade) Dose Ordered Sig/Prince Route Start Time Stop Time Status Last Admin Dose Admin Ioversol (Optiray 320) 125 ml UD PRN IV 01/30/17 11:45 02/03/17 11:44 Cefepime HCl (Consult) 1 ea UD PRN N/A 01/30/17 15:47 03/01/17 15:46 Ondansetron HCl (Zofran Inj) 4 mg Q6H PRN IV 01/30/17 15:30 03/01/17 15:29 Glucose (Glucose 40% Gel) 15-30 GRAMS 15 GRAMS... UD PRN PO 01/30/17 15:30 03/01/17 15:29 Glucose (Glucose Chew Tab) 4-8 Tablets 4 Tabl... UD PRN PO 01/30/17 15:30 03/01/17 15:29 Dextrose (Dextrose 50% 50ML Syringe) 25-50ML OF 50% DW IV FOR... UD PRN IV 01/30/17 15:30 03/01/17 15:29 Glucagon (Glucagon Inj) 1 mg UD PRN SQ 01/30/17 15:30 03/01/17 15:29 Levalbuterol (Xopenex 0.31MG/ 3ML Neb) 0.31 mg Q4 PRN INH 01/30/17 15:30 03/01/17 15:29 Aspirin (Ecotrin Tab) 325 mg QAM PO 01/31/17 09:00 03/02/17 08:59 02/02/17 08:01 325 MG Dimenhydrinate (Dramamine Tab) 50 mg Q4H PRN PO 01/30/17 15:45 03/01/17 15:44 Prochlorperazine Maleate (Compazine Tab) 10 mg Q6 PRN PO 01/30/17 15:45 03/01/17 15:44 Tramadol HCl (Ultram Tab) 50 mg Q6H PRN PO 01/30/17 15:45 03/01/17 15:44 02/02/17 17:21 50 MG Zolpidem Tartrate (Ambien Tab) 10 mg HS PO 01/30/17 21:00 03/01/17 20:59 02/01/17 22:25 10 MG Cholecalciferol (Vitamin D Tab) 5,000 inter.unit DAILY PO 01/31/17 09:00 03/02/17 08:59 02/02/17 08:02 5,000 INTER.UNIT Levofloxacin (Levaquin Tab) 750 mg DAILY@11 PO 01/31/17 11:00 02/05/17 11:01 02/02/17 10:28 750 MG Cefepime HCl 2000 mg/Syringe 20 ml @ 5 mls/min Q8@0000,0800,1600 IV 01/30/17 17:11 02/06/17 17:10 02/02/17 15:44 5 MLS/MIN Oxymetazoline HCl (Afrin 0.05% Nasal [place]) 1 sprays DAILY PRN BJ 01/31/17 01:15 03/02/17 01:14 02/02/17 02:02 1 SPRAYS Methadone HCl (Dolophine Tab) 10 mg QIDM PO 01/31/17 08:00 02/14/17 07:59 02/02/17 17:22 10 MG Insulin Human Regular (novoLIN-R) SLIDING SCALE IF C... AC SC 01/31/17 11:00 03/02/17 10:59 02/02/17 17:25 18 UNITS Insulin Human NPH (novoLIN-N NPH) SEE PROTOCOL TEXT BID SC 01/31/17 21:00 03/02/17 20:59 02/02/17 08:15 60 UNITS Diazepam (Valium Tab) 4 mg Q8H PRN PO 01/31/17 14:30 03/01/17 15:44 02/02/17 11:58 4 MG Calcium Carbonate (Tums Chew Tab) 500 mg BID PRN PO 01/31/17 14:30 03/02/17 14:29 Prednisone (PredniSONE TAB) 60 mg DAILY PO 02/01/17 09:00 03/03/17 08:59 02/02/17 08:02 60 MG Enoxaparin Sodium (Consult) 1 ea UD PRN N/A 02/02/17 17:27 03/04/17 17:26 Enoxaparin Sodium (Lovenox Inj) 120 mg Q12@1000,2200 SQ 02/02/17 22:00 03/04/17 21:59
[2017-02-02] MEDS: ZOLPIDEM TARTRATE 10 MG TAB PO SCH (22:25)
[2017-02-02] MEDS: ENOXAPARIN 120 MG/0.8 ML SYR SQ SCH (22:26)
[2017-02-02 22:50] VITALS: BP 131/83; PULSE 93; TEMP 36.3; O2SAT 94
[2017-02-03 04:02] VITALS: BP 145/71; PULSE 86; TEMP 37; O2SAT 94
[2017-02-03 07:46] VITALS: BP 116/61; PULSE 81; TEMP 37; O2SAT 95
[2017-02-03] MEDS: CEFEPIME IV 2,000 MG in SYRINGE 7.5 ML IV SCH ×3 (07:49→23:18)
[2017-02-03] MEDS: METHADONE HCL 10 MG TAB PO SCH ×5 (07:50→22:12)
[2017-02-03] MEDS: CHOLECALCIFEROL 1000 INTER.UNIT TAB PO SCH (07:50)
[2017-02-03] MEDS: ASPIRIN 325 MG ECTAB PO SCH (07:51)
[2017-02-03] MEDS: INSULIN HUMAN NPH SC SCH ×2 (07:54→22:24)
[2017-02-03] MEDS: INSULIN HUMAN REGULAR SC SCH ×4 (07:59→22:27)
[2017-02-03] MEDS: TRAMADOL HCL 50 MG TAB PO PRN ×2 (08:01→17:02)
[2017-02-03 08:15] LABS: HEMATOCRIT 34.1 % (42-52); MEAN CELL VOLUME 96.6 fL (80-100); MEAN CORPUSCULAR HEMOGLOBIN 30.3 pg (25-34); MEAN CORPUSCULAR HGB CONC 31.4 g/dl (32-36); PLATELET COUNT 227 K/uL (130-400); RED BLOOD COUNT 3.53 M/uL (4.7-6.1); WHITE BLOOD COUNT 9.46 K/uL (4.8-10.8)
[2017-02-03 08:45] LABS: BUN/CREATININE RATIO 24.5 (10-20); CALCIUM 9.3 mg/dl (8.5-10.1); CREATININE 0.92 mg/dl (0.60-1.40); POTASSIUM 3.8 mmol/L (3.5-5.1)
[2017-02-03] MEDS: DIAZEPAM 2MG TAB PO PRN ×2 (10:06→21:19)
[2017-02-03] MEDS: ENOXAPARIN 120 MG/0.8 ML SYR SQ SCH ×2 (10:07→22:17)
[2017-02-03] MEDS: LEVOFLOXACIN 750 MG TAB PO SCH (10:08)
[2017-02-03 12:44] VITALS: BP 118/71; PULSE 100; O2SAT 94
[2017-02-03] MEDS ORDERED: INSULIN HUMAN REGULAR SC ONE (17:14)
--- NOTE | 2017-02-03 19:11 | Progress Note ---
Medicine Progress Note Date & Time of Visit: Feb 03, 2017 at 16:20 . Subjective No fever. Still experiencing dyspnea with minimal exertion (e.g., ambulating to bathroom). Occasional nonproductive cough. No anginal symptoms. No nausea, vomiting, diarrhea. Blood sugars fluctuating. . Objective Last 8 Hrs Date Time Temp Pulse Resp B/P (MAP) Pulse Ox O2 Delivery O2 Flow Rate FiO2 02/03/17 16:00 Nasal Cannula 2.0 02/03/17 12:44 100 20 118/71 (87) 94 Nasal Cannula 2.0 02/03/17 12:00 Nasal Cannula 2.0 Physical Exam: General- no distress Neck- no JVD Lungs- basilar rales, mild wheezing Heart- RRR, no gallop Abdomen- + BS, soft, nontender Extremities- no pretibial edema or calf tenderness Neuro- alert . Laboratory Results: Last 24 Hours Test 02/02/17 20:12 02/03/17 07:13 02/03/17 08:00 02/03/17 11:36 Bedside Glucose 113 mg/dl 105 mg/dl 220 mg/dl White Blood Count 9.46 K/uL Red Blood Count 3.53 M/uL Hemoglobin 10.7 g/dL Hematocrit 34.1 % Mean Corpuscular Volume 96.6 fL Mean Corpuscular Hemoglobin 30.3 pg Mean Corpuscular Hemoglobin Concent 31.4 g/dl RDW Standard Deviation 65.2 fL RDW Coefficient of Variation 18.4 % Platelet Count 227 K/uL Mean Platelet Volume 10.0 fL Sodium Level 137 mmol/L Potassium Level 3.8 mmol/L Chloride Level 101 mmol/L Carbon Dioxide Level 30 mmol/L Anion Gap 6.0 mmol/L Blood Urea Nitrogen 23 mg/dl Creatinine 0.92 mg/dl Est Creatinine Clear Calc Drug Dose 134.9 ml/min Estimated GFR () 108.9 Estimated GFR (Non- 94.0 BUN/Creatinine Ratio 24.5 Random Glucose 109 mg/dl Calcium Level 9.3 mg/dl Test 02/03/17 14:53 Bedside Glucose 248 mg/dl Assessment & Plan PULMONARY EMBOLI (present on admission) CTA chest demonstrated multilobar segmental and subsegmental bilateral pulmonary emboli. Prior history of upper extremity DVT. Underlying small cell Ca of lung. Restarted on enoxaparin. Pharmacy consulted to assist with management. Anti-Xa level 1.33 02/02; enoxaparin dose adjusted. PULMONARY INFILTRATES Pneumonia vs radiation pneumonitis. Blood cultures negative thus far. No sputum obtained for gram stain / C&S. Continue prednisone + antibiotic therapy with levofloxacin and cefepime. ACUTE HYPOXIA Presented with cough and dyspnea. O2 sat 79% on RA in ED. Received supplemental O2. Underlying pulmonary emboli and pulmonary infiltrates as discussed above. Wean O2 as tolerated. 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 Management per Oncology services. SUSPECTED PULMONARY HYPERTENSION Per CT chest. TTE ordered, but not able to assess PASP. DM TYPE 2 Well-controlled at home. Hgb A1C = 6.4. Blood sugars fluctuating due to acute illness and steroid therapy. Patient prefers to test his own insulin dosage per his usual routine. FBS this morning = 105. Continue Novolin N + Novolin R as directed by patient. VTE PROPHYLAXIS SQ enoxaparin for acute pulmonary emboli. DISPOSITION Expected discharge to home. Family Medicine follow-up with Dr. Zamudio. Medical Oncology follow-up with Dr. Brett Gale. Radiation Oncology follow-up with Dr. Guanakito Gale. . Consultants: Pulm-Dr. Jena Vasques Onc-Dr. Geena Gale Onc- Dr. Jolynn Gale Current Inpatient Medications: Current Inpatient Medications Medications (Trade) Dose Ordered Sig/Prince Route Start Time Stop Time Status Last Admin Dose Admin Cefepime HCl (Consult) 1 ea UD PRN N/A 01/30/17 15:47 03/01/17 15:46 Ondansetron HCl (Zofran Inj) 4 mg Q6H PRN IV 01/30/17 15:30 03/01/17 15:29 Glucose (Glucose 40% Gel) 15-30 GRAMS 15 GRAMS... UD PRN PO 01/30/17 15:30 03/01/17 15:29 Glucose (Glucose Chew Tab) 4-8 Tablets 4 Tabl... UD PRN PO 01/30/17 15:30 03/01/17 15:29 Dextrose (Dextrose 50% 50ML Syringe) 25-50ML OF 50% DW IV FOR... UD PRN IV 01/30/17 15:30 03/01/17 15:29 Glucagon (Glucagon Inj) 1 mg UD PRN SQ 01/30/17 15:30 03/01/17 15:29 Levalbuterol (Xopenex 0.31MG/ 3ML Neb) 0.31 mg Q4 PRN INH 01/30/17 15:30 03/01/17 15:29 Aspirin (Ecotrin Tab) 325 mg QAM PO 01/31/17 09:00 03/02/17 08:59 02/03/17 07:51 325 MG Dimenhydrinate (Dramamine Tab) 50 mg Q4H PRN PO 01/30/17 15:45 03/01/17 15:44 Prochlorperazine Maleate (Compazine Tab) 10 mg Q6 PRN PO 01/30/17 15:45 03/01/17 15:44 Tramadol HCl (Ultram Tab) 50 mg Q6H PRN PO 01/30/17 15:45 03/01/17 15:44 02/03/17 17:02 50 MG Zolpidem Tartrate (Ambien Tab) 10 mg HS PO 01/30/17 21:00 03/01/17 20:59 02/02/17 22:25 10 MG Cholecalciferol (Vitamin D Tab) 5,000 inter.unit DAILY PO 01/31/17 09:00 03/02/17 08:59 02/03/17 07:50 5,000 INTER.UNIT Levofloxacin (Levaquin Tab) 750 mg DAILY@11 PO 01/31/17 11:00 02/05/17 11:01 02/03/17 10:08 750 MG Cefepime HCl 2000 mg/Syringe 20 ml @ 5 mls/min Q8@0000,0800,1600 IV 01/30/17 17:11 02/06/17 17:10 02/03/17 16:43 5 MLS/MIN Oxymetazoline HCl (Afrin 0.05% Nasal [place]) 1 sprays DAILY PRN BJ 01/31/17 01:15 03/02/17 01:14 02/02/17 02:02 1 SPRAYS Methadone HCl (Dolophine Tab) 10 mg QIDM PO 01/31/17 08:00 02/14/17 07:59 02/03/17 17:02 10 MG Diazepam (Valium Tab) 4 mg Q8H PRN PO 01/31/17 14:30 03/01/17 15:44 02/03/17 10:06 4 MG Calcium Carbonate (Tums Chew Tab) 500 mg BID PRN PO 01/31/17 14:30 03/02/17 14:29 Prednisone (PredniSONE TAB) 60 mg DAILY PO 02/01/17 09:00 03/03/17 08:59 02/03/17 07:50 60 MG Enoxaparin Sodium (Consult) 1 ea UD PRN N/A 02/02/17 17:27 03/04/17 17:26 Enoxaparin Sodium (Lovenox Inj) 120 mg Q12@1000,2200 SQ 02/02/17 22:00 03/04/17 21:59 02/03/17 10:07 120 MG Insulin Human NPH (novoLIN-N NPH) SEE PROTOCOL TEXT BID SC 02/03/17 21:00 03/02/17 20:59 Insulin Human Regular (novoLIN-R) SLIDING SCALE IF C... ACHS SC 02/03/17 21:00 03/02/17 10:59
[2017-02-03 20:11] VITALS: BP 127/74; PULSE 83; TEMP 36.4; O2SAT 93
[2017-02-03] MEDS: ZOLPIDEM TARTRATE 10 MG TAB PO SCH (22:17)
[2017-02-04] VITALS: BP 137/77; PULSE 93; TEMP 36.5; O2SAT 93
[2017-02-04 04:43] VITALS: BP 106/73; PULSE 83; TEMP 36.8; O2SAT 96
[2017-02-04] MEDS ORDERED: INSULIN HUMAN REGULAR SC SCH (06:30)
[2017-02-04 07:20] VITALS: BP 134/70; PULSE 81; TEMP 36.4; O2SAT 93
--- NOTE | 2017-02-04 07:43 | DIAGNOSTIC IMAGING REPORT ---
CHEST ONE VIEW PORTABLE HISTORY: 56 years-old Male pneumonia acute dyspnea with lung cancer and pneumonia COMPARISON: CTA of the chest and chest radiograph 01/30/2017 TECHNIQUE: Portable upright AP view of the chest FINDINGS: Cardiac silhouette is mildly enlarged. Multifocal confluent segmental alveolar opacities throughout the left upper and left lower lobes and to lesser extent right upper lobe are again seen which appears stable from comparison. Previously mentioned left upper lobe nodule is not clearly seen. No pneumothorax or large pleural effusion identified. Bones of the chest are grossly intact. IMPRESSION: Stable exam with persistent multifocal confluent segmental alveolar opacities throughout the left upper and lower lobes and to a lesser extent within the right upper lobe. Findings suggest ongoing pneumonia. Continued follow-up recommended. The above report was generated using voice recognition software. It may contain grammatical, syntax or spelling errors. Electronically signed by: Rolan Hyde M.D. 02/04/2017 7:42 AM Dictated Date/Time: 02/04/2017 7:38 AM
[2017-02-04] MEDS: CEFEPIME IV 2,000 MG in SYRINGE 7.5 ML IV SCH ×3 (07:50→23:39)
[2017-02-04] MEDS: METHADONE HCL 10 MG TAB PO SCH ×4 (07:50→22:07)
[2017-02-04] MEDS: TRAMADOL HCL 50 MG TAB PO PRN ×2 (07:50→17:12)
[2017-02-04] MEDS: CHOLECALCIFEROL 1000 INTER.UNIT TAB PO SCH (07:51)
[2017-02-04] MEDS: ASPIRIN 325 MG ECTAB PO SCH (07:52)
[2017-02-04] MEDS: INSULIN HUMAN REGULAR SC SCH ×4 (07:55→21:00)
[2017-02-04] MEDS: LEVOFLOXACIN 750 MG TAB PO SCH (10:24)
[2017-02-04] MEDS: ENOXAPARIN 120 MG/0.8 ML SYR SQ SCH ×2 (10:25→22:08)
[2017-02-04] MEDS: INSULIN HUMAN NPH SC SCH ×2 (11:55→22:05)
[2017-02-04] MEDS: DIAZEPAM 2MG TAB PO PRN ×2 (14:21→21:07)
[2017-02-04 15:02] VITALS: BP 128/84; PULSE 87; TEMP 36.4; O2SAT 92
[2017-02-04 16:00] VITALS: O2SAT 92
--- NOTE | 2017-02-04 17:34 | Progress Note ---
Medicine Progress Note Date & Time of Visit: Feb 04, 2017 at 11:20 . Subjective No fever. Intermittent cough, sometimes productive. Ongoing dyspnea with exertion. No chest pain. No nausea, vomiting, diarrhea. Blood sugars fluctuating. . Objective Last 8 Hrs Date Time Temp Pulse Resp B/P (MAP) Pulse Ox O2 Delivery O2 Flow Rate FiO2 02/04/17 16:00 92 Nasal Cannula 3.0 02/04/17 15:02 36.4 87 20 128/84 (99) 92 Nasal Cannula 3.0 02/04/17 12:00 Nasal Cannula 2.0 Physical Exam: General- no distress Neck- no JVD Lungs- basilar rales, few scattered rhonchi, mild wheezing Heart- RRR, no gallop Abdomen- + BS, soft, nontender Extremities- no pretibial edema or calf tenderness Neuro- alert . Laboratory Results: Last 24 Hours Test 02/03/17 20:32 02/03/17 22:21 02/04/17 07:09 02/04/17 16:33 Bedside Glucose 135 mg/dl 120 mg/dl 82 mg/dl 294 mg/dl Test 02/04/17 17:10 Bedside Glucose 247 mg/dl Date/Time Source Procedure Growth Status 02/03/17 21:15 Sputum Expectorated Sputum Gram Stain - Final Resulted 02/03/17 21:15 Sputum Expectorated Sputum Sputum Culture - Preliminary PIN-POINT GROWTH PRESENT, REINCUBATING. Resulted Assessment & Plan PULMONARY EMBOLI (present on admission) CTA chest demonstrated multilobar segmental and subsegmental bilateral pulmonary emboli. Prior history of upper extremity DVT. Underlying small cell Ca of lung. Restarted on enoxaparin. Pharmacy consulted to assist with management. Anti-Xa level 1.33 02/02; enoxaparin dose adjusted to 120 mg every 12 hours.. PULMONARY INFILTRATES Pneumonia vs radiation pneumonitis. Blood cultures negative thus far. Sputum culture pending. Continue prednisone + antibiotic therapy with levofloxacin and cefepime. ACUTE HYPOXIA Presented with cough and dyspnea. O2 sat 79% on RA in ED. Received supplemental O2. Underlying pulmonary emboli and pulmonary infiltrates as discussed above. Wean O2 as tolerated. 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 Management per Oncology services. SUSPECTED PULMONARY HYPERTENSION Per CT chest. TTE ordered, but not able to assess PASP. DM TYPE 2 Well-controlled at home. Hgb A1C = 6.4. Blood sugars fluctuating due to acute illness and steroid therapy. Patient prefers to test his own insulin dosage per his usual routine. FBS this morning = 82. Continue Novolin N + Novolin R as directed by patient. VTE PROPHYLAXIS SQ enoxaparin for acute pulmonary emboli. DISPOSITION Expected discharge to home. Family Medicine follow-up with Dr. Zamudio. Medical Oncology follow-up with Dr. Brett Gale. Radiation Oncology follow-up with Dr. Guanakito Gale. Pulmonary Medicine follow-up with [facility]. . Consultants: Pulmonary- Dr. Em Rad Oncology -Dr. Geena Gale Medical Oncology- Dr. Jolynn Gale . Current Inpatient Medications: Current Inpatient Medications Medications (Trade) Dose Ordered Sig/Prince Route Start Time Stop Time Status Last Admin Dose Admin Cefepime HCl (Consult) 1 ea UD PRN N/A 01/30/17 15:47 03/01/17 15:46 Ondansetron HCl (Zofran Inj) 4 mg Q6H PRN IV 01/30/17 15:30 03/01/17 15:29 Glucose (Glucose 40% Gel) 15-30 GRAMS 15 GRAMS... UD PRN PO 01/30/17 15:30 03/01/17 15:29 Glucose (Glucose Chew Tab) 4-8 Tablets 4 Tabl... UD PRN PO 01/30/17 15:30 03/01/17 15:29 Dextrose (Dextrose 50% 50ML Syringe) 25-50ML OF 50% DW IV FOR... UD PRN IV 01/30/17 15:30 03/01/17 15:29 Glucagon (Glucagon Inj) 1 mg UD PRN SQ 01/30/17 15:30 03/01/17 15:29 Levalbuterol (Xopenex 0.31MG/ 3ML Neb) 0.31 mg Q4 PRN INH 01/30/17 15:30 03/01/17 15:29 Aspirin (Ecotrin Tab) 325 mg QAM PO 01/31/17 09:00 03/02/17 08:59 02/04/17 07:52 325 MG Dimenhydrinate (Dramamine Tab) 50 mg Q4H PRN PO 01/30/17 15:45 03/01/17 15:44 Prochlorperazine Maleate (Compazine Tab) 10 mg Q6 PRN PO 01/30/17 15:45 03/01/17 15:44 Tramadol HCl (Ultram Tab) 50 mg Q6H PRN PO 01/30/17 15:45 03/01/17 15:44 02/04/17 17:12 50 MG Zolpidem Tartrate (Ambien Tab) 10 mg HS PO 01/30/17 21:00 03/01/17 20:59 02/03/17 22:17 10 MG Cholecalciferol (Vitamin D Tab) 5,000 inter.unit DAILY PO 01/31/17 09:00 03/02/17 08:59 02/04/17 07:51 5,000 INTER.UNIT Levofloxacin (Levaquin Tab) 750 mg DAILY@11 PO 01/31/17 11:00 02/05/17 11:01 02/04/17 10:24 750 MG Cefepime HCl 2000 mg/Syringe 20 ml @ 5 mls/min Q8@0000,0800,1600 IV 01/30/17 17:11 02/06/17 17:10 02/04/17 15:39 5 MLS/MIN Oxymetazoline HCl (Afrin 0.05% Nasal [place]) 1 sprays DAILY PRN BJ 01/31/17 01:15 03/02/17 01:14 02/02/17 02:02 1 SPRAYS Methadone HCl (Dolophine Tab) 10 mg QIDM PO 01/31/17 08:00 02/14/17 07:59 02/04/17 17:12 10 MG Diazepam (Valium Tab) 4 mg Q8H PRN PO 01/31/17 14:30 03/01/17 15:44 02/04/17 14:21 4 MG Calcium Carbonate (Tums Chew Tab) 500 mg BID PRN PO 01/31/17 14:30 03/02/17 14:29 Prednisone (PredniSONE TAB) 60 mg DAILY PO 02/01/17 09:00 03/03/17 08:59 02/04/17 07:50 60 MG Enoxaparin Sodium (Consult) 1 ea UD PRN N/A 02/02/17 17:27 03/04/17 17:26 Enoxaparin Sodium (Lovenox Inj) 120 mg Q12@1000,2200 SQ 02/02/17 22:00 03/04/17 21:59 02/04/17 10:25 120 MG Insulin Human NPH (novoLIN-N NPH) SEE PROTOCOL TEXT BID [place] 02/03/17 21:00 03/02/17 20:59 02/04/17 11:55 40 UNITS Insulin Human Regular (novoLIN-R) SLIDING SCALE IF C... ACHS [place] 02/03/17 21:00 03/02/17 10:59 02/04/17 17:16 35 UNITS
[2017-02-04] MEDS: ZOLPIDEM TARTRATE 10 MG TAB PO SCH (22:07)
[2017-02-04 23:56] VITALS: BP 123/73; PULSE 92; TEMP 36.6; O2SAT 95
[2017-02-05 07:31] VITALS: BP 123/77; PULSE 79; TEMP 37; O2SAT 95
[2017-02-05 08:00] VITALS: O2SAT 93
[2017-02-05] MEDS: ASPIRIN 325 MG ECTAB PO SCH (08:12)
[2017-02-05] MEDS: METHADONE HCL 10 MG TAB PO SCH ×4 (08:12→23:16)
[2017-02-05] MEDS: CEFEPIME IV 2,000 MG in SYRINGE 7.5 ML IV SCH ×3 (08:12→23:15)
[2017-02-05] MEDS: CHOLECALCIFEROL 1000 INTER.UNIT TAB PO SCH (08:13)
[2017-02-05] MEDS: INSULIN HUMAN NPH SC SCH ×3 (08:15→22:06)
[2017-02-05] MEDS: INSULIN HUMAN REGULAR SC SCH ×4 (08:36→22:05)
[2017-02-05] MEDS: TRAMADOL HCL 50 MG TAB PO PRN ×2 (08:42→16:44)
[2017-02-05] MEDS: ENOXAPARIN 120 MG/0.8 ML SYR SQ SCH (10:06)
[2017-02-05] MEDS: LEVOFLOXACIN 750 MG TAB PO SCH (11:58)
[2017-02-05] MEDS: DIAZEPAM 2MG TAB PO PRN ×2 (13:01→22:02)
[2017-02-05 13:58] LABS: MEAN CELL VOLUME 95.5 fL (80-100); MEAN CORPUSCULAR HEMOGLOBIN 31.6 pg (25-34); MEAN CORPUSCULAR HGB CONC 33.1 g/dl (32-36); MEAN PLATELET VOLUME 10.2 fL (7.4-10.4); PLATELET COUNT 298 K/uL (130-400); RED BLOOD COUNT 3.35 M/uL (4.7-6.1); WHITE BLOOD COUNT 10.52 K/uL (4.8-10.8)
[2017-02-05 14:34] LABS: BUN/CREATININE RATIO 18.8 (10-20); CALCIUM 8.8 mg/dl (8.5-10.1); CREATININE 1.2 mg/dl (0.60-1.40); POTASSIUM 4.5 mmol/L (3.5-5.1)
[2017-02-05 14:51] LABS: BETA-HYDROXYBUTYRATE 1.08 mg/dL (0.2-2.81)
[2017-02-05 15:23] VITALS: BP 132/76; PULSE 93; TEMP 36.4; O2SAT 93
--- NOTE | 2017-02-05 16:46 | Pharmacy Progress Note ---
Anticoagulant Dosing Consult Date of Service: Feb 05, 2017. Pharmacy Dosing Scope Pharmacy is consulted to evaluate lovenox subcutaneous dosing therapy, order appropriate labs and adjust drug dose/frequency. Subjective The patient is a 56 year old male admitted on Jan 30, 2017 at 15:20 for Bilateral Pulmonary Embolism, Pneumonia. Patient is to receive or is currently on day # 5 of THERAPEUTIC lovenox subq for b/l PE. Pertinent PMH: small cell lung cancer (completed chemo/radiation in Nov), h/o L UE DVT (with recent cessation of Lovenox), DM II and chronic back pain Objective Height (Feet): 6 Height (Inches): 3.00 Weight (Kilograms): 133.200 Laboratory Results: Last 24 Hours Test 02/05/17 13:36 Blood Urea Nitrogen 23 mg/dl (7-18) Creatinine 1.20 mg/dl (0.60-1.40) Hematocrit 32.0 % (42-52) Hemoglobin 10.6 g/dL (14.0-18.0) Platelet Count 298 K/uL (130-400) Last 72 Hours Test 02/03/17 08:00 02/05/17 13:36 Platelet Count 227 K/uL 298 K/uL Heparin Anti-Xa Act, Low Molec Wt 1.34 IU/ML Assessment & Plan Assessment * Current enoxaparin dose 120 mg SC BID for PE * Anticipate prolonged therapy 2nd active malignancy * Patient previously receiving lovenox for upper extremity DVT in December 2016 * This was discontinued, possibly without physician knowledge due to injection site pain * Goal Xa level 0.5-1.0 IV/mL for therapeutic enoxaparin dosed BID * Current Xa level of 1.34 IU/mL is supratherapeutic * This was drawn after 4 doses of new regimen * This was drawn 3.5 hours after subQ dose - appropriate * SCr was slightly elevated on 01/30, had been trending down, was back up to 1.20 today * Repeat Xa in 3 days (earliest recommended time) Plan * Decrease enoxaparin 100 mg SC Q12H * Repeat Xa 02/08 @ 1400 We will continue to monitor this patient and make adjustments as needed. Thank you.
--- NOTE | 2017-02-05 18:58 | Hematology/Oncology Prog Note ---
Hematology/Onc Progress Note Date of Service Feb 05, 2017. Subjective 56-year-old male, a case of small cell lung cancer, limited to the chest, S/P 4 cycles of chemotherapy with carboplatin and the etoposide, also received radiation treatment to the large mediastinal mass as well as the left lung mass , now admitted for possible radiation induced pneumonitis, bilateral pulmonary embolism, he is receiving prednisone at 60 mg per day, broad-spectrum antibiotic , required oxygen therapy, gradually getting better, I saw him at bedside, he was sitting comfortable in the bed, receiving nasal cannula supplemental seen at 1 mm, he says that he is feeling quite anxious, has some dry cough, no chest pain, no leg edema, no new bleeding complications, receiving Lovenox for a new diagnosis of pulmonary embolism, no fever, hemodynamically he has remained stable. He does complain of shortness of breath on exertion, no new GI symptoms , no new back pain or bone pain. No new headache. Blood sugar has been fluctuating. On exam: - Alert and oriented x3, well built slightly obese man, not in any distress. - HEENT: no icterus, no pallor, Throat: Normal. - Neck: No palpable cervical lymphadenopathy. - Chest: Cavitations in the left lung field noted. - Abdomen: soft, nontender, no hepatomegaly, no splenomegaly. - No focal neuro deficit. - Extremities: no finger clubbing, no leg edema. - O2 saturation at 1 liter/minute is around 93%. Blood workup done on 02/05/2017: -WBC 67676, H&H of 10.6/32, Platelet count of 298,000. -BUN/Creat: 20/1.2, calcium 8.8. Random blood sugar 320, repeat blood sugar around 229. Chest x-ray done on 02/04/2017 showed stable persistent multifocal alveolar opacities throughout the left upper and lower lobe and less extent in the right upper lobe. Will continue the current medical management including prednisone, Lovenox and broad-spectrum antibiotic. Vital Signs Vital Signs Past 12 Hours Date Time Temp Pulse Resp B/P (MAP) Pulse Ox O2 Delivery O2 Flow Rate FiO2 02/05/17 16:00 Nasal Cannula 1.0 02/05/17 15:23 36.4 93 18 132/76 (94) 93 Room Air 02/05/17 08:00 93 Nasal Cannula 1.5 02/05/17 07:31 37.0 79 18 123/77 (50) 95 2.0
--- NOTE | 2017-02-05 20:28 | Progress Note ---
Medicine Progress Note Date & Time of Visit: Feb 05, 2017 at 14:30 . Subjective Ambulated in hallway yesterday afternoon with O2. O2 titrated down to 1 LPM. Feels a bit more dyspneic today. No nausea, vomiting, diarrhea. No fever. . Objective Last 8 Hrs Date Time Temp Pulse Resp B/P (MAP) Pulse Ox O2 Delivery O2 Flow Rate FiO2 02/05/17 16:00 Nasal Cannula 1.0 02/05/17 15:23 36.4 93 18 132/76 (94) 93 Room Air Physical Exam: General- no distress Neck- no JVD Lungs- few basilar rales, mild wheezing Heart- RRR, no gallop Abdomen- + BS, soft, nontender Extremities- no pretibial edema or calf tenderness Neuro- alert . Laboratory Results: Last 24 Hours Test 02/05/17 07:18 02/05/17 10:10 02/05/17 11:21 02/05/17 13:36 Bedside Glucose 102 mg/dl 178 mg/dl 223 mg/dl White Blood Count 10.52 K/uL Red Blood Count 3.35 M/uL Hemoglobin 10.6 g/dL Hematocrit 32.0 % Mean Corpuscular Volume 95.5 fL Mean Corpuscular Hemoglobin 31.6 pg Mean Corpuscular Hemoglobin Concent 33.1 g/dl RDW Standard Deviation 63.2 fL RDW Coefficient of Variation 17.8 % Platelet Count 298 K/uL Mean Platelet Volume 10.2 fL Heparin Anti-Xa Act, Low Molec Wt 1.34 IU/ML Sodium Level 135 mmol/L Potassium Level 4.5 mmol/L Chloride Level 99 mmol/L Carbon Dioxide Level 26 mmol/L Anion Gap 10.0 mmol/L Blood Urea Nitrogen 23 mg/dl Creatinine 1.20 mg/dl Est Creatinine Clear Calc Drug Dose 103.5 ml/min Estimated GFR () 79.0 Estimated GFR (Non- 68.1 BUN/Creatinine Ratio 18.8 Random Glucose 320 mg/dl Calcium Level 8.8 mg/dl Beta-Hydroxybutyric Acid 1.08 mg/dL Test 02/05/17 16:39 Bedside Glucose 229 mg/dl Assessment & Plan PULMONARY EMBOLI (present on admission) CTA chest demonstrated multilobar segmental and subsegmental bilateral pulmonary emboli. Prior history of upper extremity DVT. Underlying small cell Ca of lung. Restarted on enoxaparin. Pharmacy consulted to assist with management. Anti-Xa level 1.33 02/02; enoxaparin dose adjusted to 120 mg every 12 hours. Anti-Xa level 1.34 02/05; enoxaparin dose adjusted to 100 mg every 12 hours.. PULMONARY INFILTRATES Pneumonia vs radiation pneumonitis. Blood cultures negative thus far. Sputum culture pending. Continue prednisone + antibiotic therapy with levofloxacin and cefepime. ACUTE HYPOXIA Presented with cough and dyspnea. O2 sat 79% on RA in ED. Received supplemental O2. Underlying pulmonary emboli and pulmonary infiltrates as discussed above. Wean O2 as tolerated. 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 Management per Oncology services. SUSPECTED PULMONARY HYPERTENSION Per CT chest. TTE ordered, but not able to assess PASP. DM TYPE 2 Well-controlled at home. Hgb A1C = 6.4. Blood sugars fluctuating due to acute illness and steroid therapy. Patient prefers to test his own insulin dosage per his usual routine. FBS this morning = 102. Continue Novolin N + Novolin R as directed by patient. VTE PROPHYLAXIS SQ enoxaparin for acute pulmonary emboli. DISPOSITION Expected discharge to home. Family Medicine follow-up with Dr. Zamudio. Medical Oncology follow-up with Dr. Brett Gale. Radiation Oncology follow-up with Dr. Guanakito Gale. Pulmonary Medicine follow-up with [facility]. . Consultants: Pulmonary- Dr. Em Rad Oncology -Dr. Geena Gale Medical Oncology- Dr. Jolynn Gale . Current Inpatient Medications: Current Inpatient Medications Medications (Trade) Dose Ordered Sig/Prince Route Start Time Stop Time Status Last Admin Dose Admin Cefepime HCl (Consult) 1 ea UD PRN N/A 01/30/17 15:47 03/01/17 15:46 Ondansetron HCl (Zofran Inj) 4 mg Q6H PRN IV 01/30/17 15:30 03/01/17 15:29 Glucose (Glucose 40% Gel) 15-30 GRAMS 15 GRAMS... UD PRN PO 01/30/17 15:30 03/01/17 15:29 Glucose (Glucose Chew Tab) 4-8 Tablets 4 Tabl... UD PRN PO 01/30/17 15:30 03/01/17 15:29 Dextrose (Dextrose 50% 50ML Syringe) 25-50ML OF 50% DW IV FOR... UD PRN IV 01/30/17 15:30 03/01/17 15:29 Glucagon (Glucagon Inj) 1 mg UD PRN SQ 01/30/17 15:30 03/01/17 15:29 Levalbuterol (Xopenex 0.31MG/ 3ML Neb) 0.31 mg Q4 PRN INH 01/30/17 15:30 03/01/17 15:29 Aspirin (Ecotrin Tab) 325 mg QAM PO 01/31/17 09:00 03/02/17 08:59 02/05/17 08:12 325 MG Dimenhydrinate (Dramamine Tab) 50 mg Q4H PRN PO 01/30/17 15:45 03/01/17 15:44 Prochlorperazine Maleate (Compazine Tab) 10 mg Q6 PRN PO 01/30/17 15:45 03/01/17 15:44 Tramadol HCl (Ultram Tab) 50 mg Q6H PRN PO 01/30/17 15:45 03/01/17 15:44 02/05/17 16:44 50 MG Zolpidem Tartrate (Ambien Tab) 10 mg HS PO 01/30/17 21:00 03/01/17 20:59 02/04/17 22:07 10 MG Cholecalciferol (Vitamin D Tab) 5,000 inter.unit DAILY PO 01/31/17 09:00 03/02/17 08:59 02/05/17 08:13 5,000 INTER.UNIT Cefepime HCl 2000 mg/Syringe 20 ml @ 5 mls/min Q8@0000,0800,1600 IV 01/30/17 17:11 02/06/17 17:10 02/05/17 16:40 5 MLS/MIN Oxymetazoline HCl (Afrin 0.05% Nasal [place]) 1 sprays DAILY PRN BJ 01/31/17 01:15 03/02/17 01:14 02/02/17 02:02 1 SPRAYS Methadone HCl (Dolophine Tab) 10 mg QIDM PO 01/31/17 08:00 02/14/17 07:59 02/05/17 16:40 10 MG Diazepam (Valium Tab) 4 mg Q8H PRN PO 01/31/17 14:30 03/01/17 15:44 02/05/17 13:01 4 MG Calcium Carbonate (Tums Chew Tab) 500 mg BID PRN PO 01/31/17 14:30 03/02/17 14:29 Prednisone (PredniSONE TAB) 60 mg DAILY PO 02/01/17 09:00 03/03/17 08:59 02/05/17 08:13 60 MG Enoxaparin Sodium (Consult) 1 ea UD PRN N/A 02/02/17 17:27 03/04/17 17:26 Insulin Human NPH (novoLIN-N NPH) SEE PROTOCOL TEXT BID SC 02/03/17 21:00 03/02/17 20:59 02/05/17 10:14 40 UNITS Insulin Human Regular (novoLIN-R) SLIDING SCALE IF C... ACHS SC 02/03/17 21:00 03/02/17 10:59 02/05/17 17:04 40 UNITS Levofloxacin (Levaquin Tab) 750 mg DAILY@11 PO 02/06/17 11:00 02/08/17 11:01 Enoxaparin Sodium (Lovenox Inj) 100 mg Q12@1000,2200 SQ 02/05/17 22:00 03/07/17 21:59
[2017-02-05] MEDS: ENOXAPARIN 100 MG/1ML SYR SQ SCH (22:02)
[2017-02-05] MEDS: ZOLPIDEM TARTRATE 10 MG TAB PO SCH (23:16)
[2017-02-05 23:46] VITALS: BP 140/81; PULSE 89; TEMP 36.6; O2SAT 96
[2017-02-06 07:14] VITALS: BP 124/78; PULSE 81; TEMP 37; O2SAT 95
[2017-02-06 07:29] LABS: CREATININE 0.72 mg/dl (0.60-1.40)
[2017-02-06] MEDS: TRAMADOL HCL 50 MG TAB PO PRN ×2 (08:01→17:33)
[2017-02-06] MEDS: METHADONE HCL 10 MG TAB PO SCH ×4 (08:02→23:09)
[2017-02-06] MEDS: INSULIN HUMAN REGULAR SC SCH ×4 (08:03→21:00)
[2017-02-06] MEDS: INSULIN HUMAN NPH SC SCH ×3 (08:03→23:12)
[2017-02-06] MEDS: CHOLECALCIFEROL 1000 INTER.UNIT TAB PO SCH (08:04)
[2017-02-06] MEDS: ASPIRIN 325 MG ECTAB PO SCH (08:04)
[2017-02-06] MEDS: CEFEPIME IV 2,000 MG in SYRINGE 7.5 ML IV SCH ×3 (08:24→23:19)
[2017-02-06 09:57] VITALS: O2SAT 95
[2017-02-06 11:35] VITALS: BP 138/75; PULSE 100; TEMP 36.8; O2SAT 90
[2017-02-06] MEDS: ENOXAPARIN 100 MG/1ML SYR SQ SCH ×2 (12:19→22:04)
[2017-02-06] MEDS: LEVOFLOXACIN 750 MG TAB PO SCH (13:42)
[2017-02-06] MEDS: DIAZEPAM 2MG TAB PO PRN ×2 (13:45→22:02)
[2017-02-06 15:19] VITALS: BP 132/72; PULSE 101; TEMP 36.5; O2SAT 94
[2017-02-06 16:00] VITALS: O2SAT 94
--- NOTE | 2017-02-06 20:02 | Progress Note ---
Medicine Progress Note Date & Time of Visit: Feb 06, 2017 at 19:20 . Subjective No fever. Intermittent cough. Ongoing dyspnea on exertion, but O2 weaned down to 1 LPM. No nausea, vomiting, diarrhea. Blood sugars fluctuating. . Objective Last 8 Hrs Date Time Temp Pulse Resp B/P (MAP) Pulse Ox O2 Delivery O2 Flow Rate FiO2 02/06/17 15:19 36.5 101 18 132/72 (92) 94 1.0 Physical Exam: General- no distress Neck- no JVD Lungs- mild wheezing Heart- RRR, no gallop Abdomen- + BS, soft, nontender Extremities- no pretibial edema or calf tenderness Neuro- alert . Laboratory Results: Last 24 Hours Test 02/05/17 20:30 02/06/17 06:24 02/06/17 07:26 02/06/17 11:10 Bedside Glucose 136 mg/dl 85 mg/dl 223 mg/dl Creatinine 0.72 mg/dl Est Creatinine Clear Calc Drug Dose 172.5 ml/min Estimated GFR () 122.6 Estimated GFR (Non- 105.8 Test 02/06/17 16:32 Bedside Glucose 314 mg/dl Assessment & Plan PULMONARY EMBOLI (present on admission) CTA chest demonstrated multilobar segmental and subsegmental bilateral pulmonary emboli. Prior history of upper extremity DVT. Underlying small cell Ca of lung. Restarted on enoxaparin. Pharmacy consulted to assist with management. Anti-Xa level 1.33 02/02; enoxaparin dose adjusted to 120 mg every 12 hours. Anti-Xa level 1.34 02/05; enoxaparin dose adjusted to 100 mg every 12 hours.. PULMONARY INFILTRATES Pneumonia vs radiation pneumonitis. Blood cultures negative thus far. Sputum culture pending. Continue prednisone + antibiotic therapy with levofloxacin and cefepime. ACUTE HYPOXIA Presented with cough and dyspnea. O2 sat 79% on RA in ED. Received supplemental O2. Underlying pulmonary emboli and pulmonary infiltrates as discussed above. Wean O2 as tolerated- currently @ 1 LPM. Check 2-step pulse oximetry tomorrow morning. 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 Management per Oncology services. SUSPECTED PULMONARY HYPERTENSION Per CT chest. TTE ordered, but not able to assess PASP. DM TYPE 2 Well-controlled at home. Hgb A1C = 6.4. Blood sugars fluctuating due to acute illness and steroid therapy. Patient prefers to test his own insulin dosage per his usual routine. FBS this morning = 85. Continue Novolin N + Novolin R as directed by patient. VTE PROPHYLAXIS SQ enoxaparin for acute pulmonary emboli. DISPOSITION Expected discharge to home. Family Medicine follow-up with Dr. Zamudio. Medical Oncology follow-up with Dr. Brett Gale. Radiation Oncology follow-up with Dr. Guanakito Gale. Pulmonary Medicine follow-up with [facility]. . Consultants: Pulmonary- Dr. Em Rad Oncology -Dr. Geena Gale Medical Oncology- Dr. Jolynn Gale . Current Inpatient Medications: Current Inpatient Medications Medications (Trade) Dose Ordered Sig/Prince Route Start Time Stop Time Status Last Admin Dose Admin Cefepime HCl (Consult) 1 ea UD PRN N/A 01/30/17 15:47 03/01/17 15:46 Ondansetron HCl (Zofran Inj) 4 mg Q6H PRN IV 01/30/17 15:30 03/01/17 15:29 Glucose (Glucose 40% Gel) 15-30 GRAMS 15 GRAMS... UD PRN PO 01/30/17 15:30 03/01/17 15:29 Glucose (Glucose Chew Tab) 4-8 Tablets 4 Tabl... UD PRN PO 01/30/17 15:30 03/01/17 15:29 Dextrose (Dextrose 50% 50ML Syringe) 25-50ML OF 50% DW IV FOR... UD PRN IV 01/30/17 15:30 03/01/17 15:29 Glucagon (Glucagon Inj) 1 mg UD PRN SQ 01/30/17 15:30 03/01/17 15:29 Levalbuterol (Xopenex 0.31MG/ 3ML Neb) 0.31 mg Q4 PRN INH 01/30/17 15:30 03/01/17 15:29 Aspirin (Ecotrin Tab) 325 mg QAM PO 01/31/17 09:00 03/02/17 08:59 02/06/17 08:04 325 MG Dimenhydrinate (Dramamine Tab) 50 mg Q4H PRN PO 01/30/17 15:45 03/01/17 15:44 Prochlorperazine Maleate (Compazine Tab) 10 mg Q6 PRN PO 01/30/17 15:45 03/01/17 15:44 Tramadol HCl (Ultram Tab) 50 mg Q6H PRN PO 01/30/17 15:45 03/01/17 15:44 02/06/17 17:33 50 MG Zolpidem Tartrate (Ambien Tab) 10 mg HS PO 01/30/17 21:00 03/01/17 20:59 02/05/17 23:16 10 MG Cholecalciferol (Vitamin D Tab) 5,000 inter.unit DAILY PO 01/31/17 09:00 03/02/17 08:59 02/06/17 08:04 5,000 INTER.UNIT Cefepime HCl 2000 mg/Syringe 20 ml @ 5 mls/min Q8@0000,0800,1600 IV 01/30/17 17:11 02/09/17 23:59 02/06/17 16:40 5 MLS/MIN Oxymetazoline HCl (Afrin 0.05% Nasal [place]) 1 sprays DAILY PRN BJ 01/31/17 01:15 03/02/17 01:14 02/02/17 02:02 1 SPRAYS Methadone HCl (Dolophine Tab) 10 mg QIDM PO 01/31/17 08:00 02/14/17 07:59 02/06/17 17:41 10 MG Diazepam (Valium Tab) 4 mg Q8H PRN PO 01/31/17 14:30 03/01/17 15:44 02/06/17 13:45 4 MG Calcium Carbonate (Tums Chew Tab) 500 mg BID PRN PO 01/31/17 14:30 03/02/17 14:29 Prednisone (PredniSONE TAB) 60 mg DAILY PO 02/01/17 09:00 03/03/17 08:59 02/06/17 08:05 60 MG Enoxaparin Sodium (Consult) 1 ea UD PRN N/A 02/02/17 17:27 03/04/17 17:26 Insulin Human NPH (novoLIN-N NPH) SEE PROTOCOL TEXT BID SC 02/03/17 21:00 03/02/17 20:59 02/06/17 12:30 60 UNITS Insulin Human Regular (novoLIN-R) SLIDING SCALE IF C... ACHS SC 02/03/17 21:00 03/02/17 10:59 02/06/17 17:43 50 UNITS Levofloxacin (Levaquin Tab) 750 mg DAILY@11 PO 02/06/17 11:00 02/08/17 11:01 02/06/17 13:42 750 MG Enoxaparin Sodium (Lovenox Inj) 100 mg Q12@1000,2200 SQ 02/05/17 22:00 03/07/17 21:59 02/06/17 12:19 100 MG
[2017-02-06] MEDS: ZOLPIDEM TARTRATE 10 MG TAB PO SCH (23:09)
[2017-02-06 23:50] VITALS: BP 146/81; PULSE 101; TEMP 36.6; O2SAT 95
[2017-02-07 07:33] VITALS: BP 125/67; PULSE 87; TEMP 37.1; O2SAT 92
[2017-02-07 07:48] LABS: HEMATOCRIT 31.8 % (42-52); MEAN CELL VOLUME 95.5 fL (80-100); MEAN CORPUSCULAR HEMOGLOBIN 30.6 pg (25-34); MEAN CORPUSCULAR HGB CONC 32.1 g/dl (32-36); MEAN PLATELET VOLUME 9.8 fL (7.4-10.4); PLATELET COUNT 264 K/uL (130-400); RED BLOOD COUNT 3.33 M/uL (4.7-6.1); WHITE BLOOD COUNT 7.25 K/uL (4.8-10.8)
[2017-02-07] MEDS: INSULIN HUMAN REGULAR SC SCH ×4 (08:00→21:00)
[2017-02-07] MEDS: CEFEPIME IV 2,000 MG in SYRINGE 7.5 ML IV SCH ×2 (08:03→16:15)
[2017-02-07] MEDS: METHADONE HCL 10 MG TAB PO SCH ×4 (08:04→23:20)
[2017-02-07] MEDS: TRAMADOL HCL 50 MG TAB PO PRN ×2 (08:05→17:11)
[2017-02-07] MEDS: ASPIRIN 325 MG ECTAB PO SCH (08:08)
[2017-02-07] MEDS: CHOLECALCIFEROL 1000 INTER.UNIT TAB PO SCH (08:09)
[2017-02-07] MEDS: INSULIN HUMAN NPH SC SCH ×2 (08:11→22:07)
[2017-02-07 08:17] LABS: CREATININE 0.82 mg/dl (0.60-1.40)
[2017-02-07] MEDS: LEVOFLOXACIN 750 MG TAB PO SCH (12:15)
[2017-02-07] MEDS: ENOXAPARIN 100 MG/1ML SYR SQ SCH (12:16)
[2017-02-07 15:06] VITALS: BP 126/75; PULSE 92; TEMP 36.9; O2SAT 95
[2017-02-07 16:00] VITALS: O2SAT 94
[2017-02-07] MEDS: DIAZEPAM 2MG TAB PO PRN (21:57)
--- NOTE | 2017-02-07 22:05 | Progress Note ---
Medicine Progress Note Date & Time of Visit: Feb 07, 2017 at ~ 14:30 . Subjective No fever. Occasional cough, generally nonproductive (produced some sputum last night). Ongoing dyspnea with minimal exertion. Ambulated in hallway with respiratory therapy; O2 sats fell to 84%, tachycardic in 130's. Notes chest pressure with exertion, relieved by rest. No nausea or vomiting. No diarrhea. Concerned about possible discharge soon; does not feel confident that he is well enough. . Objective Last 8 Hrs Date Time Temp Pulse Resp B/P (MAP) Pulse Ox O2 Delivery O2 Flow Rate FiO2 02/07/17 15:06 36.9 92 20 126/75 (92) 95 Nasal Cannula 1.0 Physical Exam: General- no distress Neck- no JVD Lungs- mild wheezing Heart- RRR, no gallop Abdomen- + BS, soft, nontender Extremities- no pretibial edema or calf tenderness Neuro- alert . Laboratory Results: Last 24 Hours Test 02/06/17 22:08 02/07/17 07:16 02/07/17 07:32 02/07/17 07:33 Bedside Glucose 93 mg/dl 113 mg/dl Creatinine 0.82 mg/dl Est Creatinine Clear Calc Drug Dose 151.5 ml/min Estimated GFR () 116.2 Estimated GFR (Non- 100.3 White Blood Count 7.25 K/uL Red Blood Count 3.33 M/uL Hemoglobin 10.2 g/dL Hematocrit 31.8 % Mean Corpuscular Volume 95.5 fL Mean Corpuscular Hemoglobin 30.6 pg Mean Corpuscular Hemoglobin Concent 32.1 g/dl RDW Standard Deviation 62.0 fL RDW Coefficient of Variation 17.6 % Platelet Count 264 K/uL Mean Platelet Volume 9.8 fL Test 02/07/17 11:30 02/07/17 16:39 02/07/17 20:41 02/07/17 21:52 Bedside Glucose 218 mg/dl 245 mg/dl 145 mg/dl 107 mg/dl Assessment & Plan PULMONARY EMBOLI (present on admission) CTA chest demonstrated multilobar segmental and subsegmental bilateral pulmonary emboli. Prior history of upper extremity DVT. Underlying small cell Ca of lung. Restarted on enoxaparin. Pharmacy consulted to assist with management. Anti-Xa level 1.33 02/02; enoxaparin dose adjusted to 120 mg every 12 hours. Anti-Xa level 1.34 02/05; enoxaparin dose adjusted to 100 mg every 12 hours.. PULMONARY INFILTRATES Pneumonia vs radiation pneumonitis. Blood cultures negative thus far. Sputum culture pending. Prednisone recommended for suspected radiation pneumonitis, 60 mg x 2 wks with subsequent taper by 10 mg weekly. Continue antibiotic therapy with levofloxacin and cefepime, tentatively for 10 days. ACUTE HYPOXIA Presented with cough and dyspnea. O2 sat 79% on RA in ED. Received supplemental O2. Underlying pulmonary emboli and pulmonary infiltrates as discussed above. Wean O2 as tolerated. 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 Management per Oncology services. EXERTIONAL CHEST PRESSURE Experiencing chest pressure with exertion, relieved by rest. Symptoms could be related to pulmonary emboli or other pulmonary pathology, but could be anginal in nature. Consult Cardiology for their input. SUSPECTED PULMONARY HYPERTENSION Per CT chest. TTE ordered, but not able to assess PASP. DM TYPE 2 Well-controlled at home. Hgb A1C = 6.4. Blood sugars fluctuating due to acute illness and steroid therapy. Patient prefers to test his own insulin dosage per his usual routine. FBS this morning = 113. Continue Novolin N + Novolin R as directed by patient. VTE PROPHYLAXIS SQ enoxaparin for acute pulmonary emboli. DISPOSITION Patient does not feel comfort being discharged to home at this time. He is having significant dyspnea with minimal exertion related to acute pulmonary emboli and suspected radiation pneumonitis and/or bacterial pneumonia. May benefit from inpatient pulmonary rehab. Consult Case Management. PT / OT evals. Family Medicine follow-up with Dr. Zamudio. Medical Oncology follow-up with Dr. Brett Gale. Radiation Oncology follow-up with Dr. Guanakito Gale. Pulmonary Medicine follow-up with [facility]. . Consultants: Pulmonary- Dr. Em Rad Oncology -Dr. Geena Gale Medical Oncology- Dr. Jolynn Gale Cardiology . Current Inpatient Medications: Current Inpatient Medications Medications (Trade) Dose Ordered Sig/Prince Route Start Time Stop Time Status Last Admin Dose Admin Cefepime HCl (Consult) 1 ea UD PRN N/A 01/30/17 15:47 03/01/17 15:46 Ondansetron HCl (Zofran Inj) 4 mg Q6H PRN IV 11/7/17 15:30 03/01/17 15:29 Glucose (Glucose 40% Gel) 15-30 GRAMS 15 GRAMS... UD PRN PO 01/30/17 15:30 03/01/17 15:29 Glucose (Glucose Chew Tab) 4-8 Tablets 4 Tabl... UD PRN PO 01/30/17 15:30 03/01/17 15:29 Dextrose (Dextrose 50% 50ML Syringe) 25-50ML OF 50% DW IV FOR... UD PRN IV 01/30/17 15:30 03/01/17 15:29 Glucagon (Glucagon Inj) 1 mg UD PRN SQ 01/30/17 15:30 03/01/17 15:29 Levalbuterol (Xopenex 0.31MG/ 3ML Neb) 0.31 mg Q4 PRN INH 01/30/17 15:30 03/01/17 15:29 Aspirin (Ecotrin Tab) 325 mg QAM PO 01/31/17 09:00 03/02/17 08:59 02/07/17 08:08 325 MG Dimenhydrinate (Dramamine Tab) 50 mg Q4H PRN PO 01/30/17 15:45 03/01/17 15:44 Prochlorperazine Maleate (Compazine Tab) 10 mg Q6 PRN PO 01/30/17 15:45 03/01/17 15:44 Tramadol HCl (Ultram Tab) 50 mg Q6H PRN PO 01/30/17 15:45 03/01/17 15:44 02/07/17 17:11 50 MG Zolpidem Tartrate (Ambien Tab) 10 mg HS PO 01/30/17 21:00 03/01/17 20:59 02/06/17 23:09 10 MG Cholecalciferol (Vitamin D Tab) 5,000 inter.unit DAILY PO 01/31/17 09:00 03/02/17 08:59 02/07/17 08:09 5,000 INTER.UNIT Cefepime HCl 2000 mg/Syringe 20 ml @ 5 mls/min Q8@0000,0800,1600 IV 01/30/17 17:11 02/09/17 23:59 02/07/17 16:15 5 MLS/MIN Oxymetazoline HCl (Afrin 0.05% Nasal [place]) 1 sprays DAILY PRN BJ 01/31/17 01:15 03/02/17 01:14 02/02/17 02:02 1 SPRAYS Methadone HCl (Dolophine Tab) 10 mg QIDM PO 01/31/17 08:00 02/14/17 07:59 02/07/17 17:11 10 MG Diazepam (Valium Tab) 4 mg Q8H PRN PO 01/31/17 14:30 03/01/17 15:44 02/06/17 22:02 4 MG Calcium Carbonate (Tums Chew Tab) 500 mg BID PRN PO 01/31/17 14:30 03/02/17 14:29 Prednisone (PredniSONE TAB) 60 mg DAILY PO 02/01/17 09:00 03/03/17 08:59 02/07/17 08:10 60 MG Enoxaparin Sodium (Consult) 1 ea UD PRN N/A 02/02/17 17:27 03/04/17 17:26 Insulin Human NPH (novoLIN-N NPH) SEE PROTOCOL TEXT BID SC 02/03/17 21:00 03/02/17 20:59 02/07/17 08:11 30 UNITS Insulin Human Regular (novoLIN-R) SLIDING SCALE IF C... ACHS SC 02/03/17 21:00 03/02/17 10:59 02/07/17 17:16 40 UNITS Levofloxacin (Levaquin Tab) 750 mg DAILY@11 PO 02/06/17 11:00 02/08/17 11:01 02/07/17 12:15 750 MG Enoxaparin Sodium (Lovenox Inj) 100 mg Q12H SQ 02/07/17 00:00 03/09/17 00:00 Future hold
[2017-02-07] MEDS: ZOLPIDEM TARTRATE 10 MG TAB PO SCH (23:19)
[2017-02-07] MEDS ORDERED: TRAMADOL HCL 50 MG TAB PO PRN (23:45)
[2017-02-08] VITALS (8 sets, daily range): BP systolic 126–160; BP diastolic 74–81; PULSE 84–106; TEMP 36.5–37.1; O2SAT 91–96
[2017-02-08] MEDS: CEFEPIME IV 2,000 MG in SYRINGE 7.5 ML IV SCH ×2 (00:42→08:49)
[2017-02-08] MEDS: ENOXAPARIN 100 MG/1ML SYR SQ SCH ×4 (00:50→23:51)
[2017-02-08] MEDS ORDERED: FUROSEMIDE 20 MG TAB PO PRN (05:00)
[2017-02-08] MEDS: INSULIN HUMAN REGULAR SC SCH ×4 (06:30→21:00)
[2017-02-08] MEDS: ASPIRIN 325 MG ECTAB PO SCH (08:40)
[2017-02-08] MEDS: CHOLECALCIFEROL 1000 INTER.UNIT TAB PO SCH (08:41)
[2017-02-08] MEDS: METHADONE HCL 10 MG TAB PO SCH ×4 (08:50→23:43)
[2017-02-08] MEDS: TRAMADOL HCL 50 MG TAB PO PRN ×2 (08:51→17:19)
[2017-02-08] MEDS: INSULIN HUMAN NPH SC SCH ×2 (08:55→22:24)
[2017-02-08] MEDS ORDERED: DOBUTamine HCL 12.5 MG/ML 20 ML VIAL ONE (10:04)
[2017-02-08] MEDS ORDERED: ATROPINE SULFATE 0.1 MG/ML 5ML SYR ONE (10:04)
[2017-02-08] MEDS ORDERED: METOPROLOL TARTRATE 1 MG/ML VIAL ONE (10:04)
--- NOTE | 2017-02-08 10:36 | CARDIOLOGY CONSULTATION ---
DATE OF CONSULTATION: 02/08/2017 CONSULTATION REQUESTED BY: Efraín Almeida MD. REASON FOR CONSULTATION: Chest discomfort. HISTORY OF PRESENT ILLNESS: Mr. Carcamo is a 56-year-old male who presented to [facility] on 01/30/2017 with a complaint of dyspnea with exertion. In the Emergency Department, a CAT scan of the chest was performed which found bilateral PEs as well as possible pneumonia. He was admitted to telemetry and started on appropriate treatment; however, after several days in inpatient he started noticing he was having chest discomfort. He states he believes it started at the same time of shortness of breath prior to presentation. He states that after he ambulates he will sit down and notices discomfort in the middle of his chest. He states he does not believe it happens while he is ambulating, but he is not quite sure because he states he is concentrating on his breathing. He describes it as a substernal pressure sensation. It stays in the center of his chest. He denies any associated radiation of the discomfort, shortness of breath, diaphoresis, nausea, palpitations, lightheadedness, dizziness, or syncope. He states that after several minutes trying to relax this discomfort will slowly resolve. He denies any previous similar episodes. Otherwise, he states he is still having significant shortness of breath with exertion since the PEs. He has been receiving subcutaneous Lovenox. He denies any previous cardiac history. PAST SURGICAL HISTORY: 1. Multiple back surgeries. 2. Colonoscopy. 3. Spinal surgery. PAST MEDICAL HISTORY: 1. Chronic pain. 2. Type 2 diabetes. 3. Small cell lung carcinoma on chemo and radiation. 4. History of upper extremity DVT. 5. Spinal stenosis. 6. Dyslipidemia. 7. Tobacco abuse. 8. Hypertension. FAMILY HISTORY: Denies any premature coronary artery disease or sudden cardiac . SOCIAL HISTORY: The patient is a former heavy smoker, quit in August of 2016. Denies any alcohol or recreational drug use. He is . He does not work. He is retired. 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 He does not exercise. REVIEW OF SYSTEMS: As per HPI, all other review of systems reviewed and negative at this time. ALLERGIES: 1. AMOXICILLIN. 2. ATORVASTATIN. 3. ACETAMINOPHEN. 4. CLINDAMYCIN. 5. ESCITALOPRAM. 5. GABAPENTIN. 6. MORPHINE. 7. PROPOXYPHENE. 8. SITAGLIPTIN. 6. ADHESIVE 7. DEXTROMETHORPHAN. 8. GUAIFENESIN. 9. METFORMIN. 10. YELLOW DYE. MEDICATIONS: 1. Currently on enoxaparin b.i.d. per protocol. 2. Levaquin daily. 3. Prednisone daily. 4. Aspirin 325 mg daily. 5. Methadone b.i.d. 6. Cefepime daily. 7. Tramadol as needed. 8. Valium as needed. 9. Insulin as directed. PHYSICAL EXAMINATION: VITALS: Temperature 37.1, pulse 84, respiratory rate 12, blood pressure 126/76, saturating 93% on 1 liter nasal cannula. GENERAL: Awake, alert, oriented x3 in no acute distress. HEENT: Normocephalic, atraumatic. Pupils equal, round, and reactive to light and accommodation. Extraocular muscles intact. Anicteric sclerae. Moist mucous membranes. NECK: No JVD, no bruit. CARDIOVASCULAR: Regular. Positive S4. Normal S1 and S2. No S3. No murmurs or rubs. PULMONARY: Poor air movement bilaterally. Unable to appreciate rales, rhonchi or wheezing. ABDOMEN: Bowel sounds x4, soft. No rebound, guarding, tenderness. No organomegaly. EXTREMITIES: No clubbing, cyanosis or edema. +2 pedal pulses bilaterally. SKIN: Warm and dry. TEST RESULTS: A 2D echocardiogram performed 02/02/2017 was read as normal LV chamber size with mild concentric LVH, normal LV systolic function, EF 65-70%, no segmental left ventricular wall motion abnormalities were noted, grade 1 diastolic dysfunction, no significant valvular pathology, TR jet inadequate to calculate. PA systolic pressure. IMPRESSION: 1. Chest discomfort. 2. Small cell lung carcinoma, status post biopsy, chemo and radiation. 3. Recently diagnosed pulmonary emboli. 4. Pneumonia. 5. Chronic pain. RECOMMENDATIONS: Mr. Carcamo was counseled that given his multiple risk factors for coronary artery disease along with his continued chest discomfort that ischemic evaluation would be warranted at this time. So, given his ongoing lung cancer, his chemo and radiation therapy, I believe the most prudent stress test at this point will be a dobutamine stress echocardiogram given the fact that a nuclear stress testing would likely produce significant artifact. So, we will undergo a dobutamine stress echocardiogram today. Further recommendations to follow.
--- NOTE | 2017-02-08 10:36 | Medical Consult ---
Consultation Date of Consultation: Feb 08, 2017. Attending Physician: Ruby Rodriguez DO Reason for Consultation: Antibiotic choice and duration History of Present Illness 56-year-old male with history of diabetes mellitus, recently found to have small cell carcinoma of the lung and undergoing chemotherapy and radiation therapy. Approximately 1 week prior to his admission he developed worsening cough with some shortness of breath and sputum production. Was treated with what sounds like a.m. ceftriaxone, was supposed to be taking levofloxacin but did not get prescription. He was ultimately admitted to the hospital on January 30, found to have evidence of bilateral new infiltrates with CT scan showing pulmonary emboli. He was treated for both pulmonary emboli and pneumonia and has had modest improvement in symptoms. Still with dyspnea on exertion, occasional yellow sputum production. No fever. Cultures of blood in sputum have been unrevealing. No significant travel or other exposure history. Past Medical/Surgical History Medical Problems: (1) Bilateral pulmonary embolism Status: Acute (2) DVT of upper extremity (deep vein thrombosis) Status: Acute (3) Hypoxia Status: Acute Medical Problems: (1) Anxiety (2) Chronic back pain (3) Insulin dependent type 2 diabetes mellitus Surgical Problems: (1) History of back surgery Family History Diabetes mellitus Social History Smoking Status: Former Smoker Marital Status: single Housing Status: lives alone Occupation Status: unemployed Allergies Coded Allergies: Amoxicillin (Verified Allergy, Intermediate, sob, 01/30/17) PER CONVERSATION WITH ANSELMO AQUINO PA-C - SHE SPOKE WITH PATIENT WHO STATES THAT THIS IS NOT A TRUE ALLERGY HE HAS TOLERATED PENCILLINS IN THE PAST. TOLERATES ROCEPHIN X 5 DOSES AN OUTPATIENT. Atorvastatin (Verified Allergy, Intermediate, diarrhea, 01/30/17) Acetaminophen (Verified Allergy, Unknown, PT STATES "IT INTENSIFIES EFFECT ", 01/30/17) Clindamycin (Verified Allergy, Unknown, SHORTNESS OF BREATH, 01/30/17) Escitalopram (Verified Allergy, Unknown, GI UPSET, 01/30/17) Gabapentin (Verified Allergy, Unknown, CONSTIPATION, 01/30/17) Insulin Aspart (Verified Allergy, Unknown, ALLERGIC TO PRESERVATIVES IN NOVOLOG - OK WITH REGULAR/NPH, 01/31/17) Morphine (Verified Allergy, Unknown, DID NOT TOLERATE PER PT, 01/30/17) Propoxyphene (Verified Allergy, Unknown, "DID CRAZY THINGS", 01/30/17) Sitagliptin (Verified Allergy, Unknown, UNKNOWN RXN, 01/30/17) Adhesives (Verified Adverse Reaction, Unknown, "rips his skin off", ) Dextromethorphan (Unverified Adverse Reaction, Unknown, HARD TO BREATHE?, 01/30/17) Guaifenesin (Unverified Adverse Reaction, Unknown, HARD TO BREATHE?, ) Metformin (Verified Adverse Reaction, Unknown, PT STATES "DID NOT WORK", 01/30/17) Current Inpatient Medications Current Inpatient Medications Medications (Trade) Dose Ordered Sig/Prince Route Start Time Stop Time Status Last Admin Dose Admin Cefepime HCl (Consult) 1 ea UD PRN N/A 01/30/17 15:47 03/01/17 15:46 Ondansetron HCl (Zofran Inj) 4 mg Q6H PRN IV 01/30/17 15:30 03/01/17 15:29 Glucose (Glucose 40% Gel) 15-30 GRAMS 15 GRAMS... UD PRN PO 01/30/17 15:30 03/01/17 15:29 Glucose (Glucose Chew Tab) 4-8 Tablets 4 Tabl... UD PRN PO 01/30/17 15:30 03/01/17 15:29 Dextrose (Dextrose 50% 50ML Syringe) 25-50ML OF 50% DW IV FOR... UD PRN IV 01/30/17 15:30 03/01/17 15:29 Glucagon (Glucagon Inj) 1 mg UD PRN SQ 01/30/17 15:30 03/01/17 15:29 Levalbuterol (Xopenex 0.31MG/ 3ML Neb) 0.31 mg Q4 PRN INH 01/30/17 15:30 03/01/17 15:29 Aspirin (Ecotrin Tab) 325 mg QAM PO 01/31/17 09:00 03/02/17 08:59 02/08/17 08:40 325 MG Dimenhydrinate (Dramamine Tab) 50 mg Q4H PRN PO 01/30/17 15:45 03/01/17 15:44 Prochlorperazine Maleate (Compazine Tab) 10 mg Q6 PRN PO 01/30/17 15:45 03/01/17 15:44 Tramadol HCl (Ultram Tab) 50 mg Q6H PRN PO 01/30/17 15:45 03/01/17 15:44 02/08/17 08:51 50 MG Zolpidem Tartrate (Ambien Tab) 10 mg HS PO 01/30/17 21:00 03/01/17 20:59 02/07/17 23:19 10 MG Cholecalciferol (Vitamin D Tab) 5,000 inter.unit DAILY PO 01/31/17 09:00 03/02/17 08:59 02/08/17 08:41 5,000 INTER.UNIT Cefepime HCl 2000 mg/Syringe 20 ml @ 5 mls/min Q8@0000,0800,1600 IV 01/30/17 17:11 02/09/17 23:59 02/08/17 08:49 5 MLS/MIN Oxymetazoline HCl (Afrin 0.05% Nasal [place]) 1 sprays DAILY PRN BJ 01/31/17 01:15 03/02/17 01:14 02/02/17 02:02 1 SPRAYS Methadone HCl (Dolophine Tab) 10 mg QIDM PO 01/31/17 08:00 02/14/17 07:59 02/08/17 08:50 10 MG Diazepam (Valium Tab) 4 mg Q8H PRN PO 01/31/17 14:30 03/01/17 15:44 02/07/17 21:57 4 MG Calcium Carbonate (Tums Chew Tab) 500 mg BID PRN PO 01/31/17 14:30 03/02/17 14:29 Prednisone (PredniSONE TAB) 60 mg DAILY PO 02/01/17 09:00 03/03/17 08:59 02/08/17 08:41 60 MG Enoxaparin Sodium (Consult) 1 ea UD PRN N/A 02/02/17 17:27 03/04/17 17:26 Insulin Human NPH (novoLIN-N NPH) SEE PROTOCOL TEXT BID SC 02/03/17 21:00 03/02/17 20:59 02/08/17 08:55 45 UNITS Insulin Human Regular (novoLIN-R) SLIDING SCALE IF C... ACHS SC 02/03/17 21:00 03/02/17 10:59 02/07/17 17:16 40 UNITS Levofloxacin (Levaquin Tab) 750 mg DAILY@11 PO 02/06/17 11:00 02/08/17 11:01 02/07/17 12:15 750 MG Enoxaparin Sodium (Lovenox Inj) 100 mg Q12H SQ 02/07/17 00:00 03/09/17 00:00 Future hold 02/08/17 00:53 100 MG Tramadol HCl (Ultram Tab) 25 mg Q6H PRN PO 02/07/17 23:45 03/09/17 23:44 Furosemide (Lasix Tab) 20 mg DAILY PRN PO 02/08/17 05:00 03/10/17 04:59 Review of Systems Constitutional: + weakness, + fatigue, No fever Eyes: No problem reported ENT: No problem reported Respiratory: + cough, + sputum, + shortness of breath Cardiovascular: No problem reported Abdomen: No problem reported Musculoskeletal: No problem reported Genitourinary - Male: No problem reported Neurologic: No problem reported Psychiatric: No problem reported Endocrine: No problem reported Hematologic / Lymphatic: No problem reported Integumentary: No problem reported Allergic / Immunologic: No problem reported Physical Exam Date Time Temp Pulse Resp B/P (MAP) Pulse Ox O2 Delivery O2 Flow Rate FiO2 02/08/17 07:14 37.1 84 18 126/76 (93) 93 Room Air 1.0 02/08/17 00:01 Nasal Cannula 02/07/17 16:00 94 Nasal Cannula 1.0 02/07/17 15:06 36.9 92 20 126/75 (92) 95 Nasal Cannula 1.0 General Appearance: WD/WN, no apparent distress Head: normocephalic, atraumatic Eyes: normal inspection, EOMI, sclerae normal ENT: normal ENT inspection, hearing grossly normal, pharynx normal Neck: supple, no adenopathy, thyroid normal, no carotid bruits, trachea midline Respiratory/Chest: chest non-tender, no respiratory distress, no accessory muscle use, + wheezing (faint) Cardiovascular: regular rate, rhythm, no gallop, no murmur Abdomen/GI: normal bowel sounds, non tender, soft, no organomegaly Back: normal inspection, no CVA tenderness Extremities/Musculoskelatal: no calf tenderness, non-tender Neurologic/Psych: alert, oriented x 3 Skin: normal color, warm/dry, no rash Laboratory Results RUN DATE: 02/05/17 [facility] LAB PAGE 1 RUN TIME: 0940 Specimen Inquiry PATIENT: LAVERNE BRADY LOC: [facility] # : [id number] AGE/SX: 56/M ROOM: [facility] REG : 01/30/[address]: Efraín Almeida M.D. : 1960 BED: 1 DIS : STATUS: ADM IN TLOC: SPEC #: [id number] [place]: 02/03/17 STATUS: COMP REQ #: [id number] RECD: 02/03/[address]: Tatiana Em M.D. SOURCE: SPUTUM ENTR: 02/03/[address]: Efraín Almeida M.D. SPDESC: EXP.SPUTUM Jared Maxwell DO Martin, Jill ., P.AOle-Veeral. Raya, Brett Mccormack M.D. Piatt, John E., III, M.D. ORDERED: SPUT CULT/SMR COMMENTS: Has Specimen Been Obtained/Collected? Y Procedure Result Verified Site GRAM STAIN Final 02/04/17 RESULT FEW EPITHELIAL CELLS MANY POLYS FEW GRAM POSITIVE COCCI RARE GRAM POSITIVE BACILLI SPUTUM CULTURE Final 02/05/17 MODERATE NORMAL CHI. Last 24 Hours Test 02/07/17 11:30 02/07/17 16:39 02/07/17 20:41 02/07/17 21:52 Bedside Glucose 218 mg/dl 245 mg/dl 145 mg/dl 107 mg/dl Test 02/08/17 07:16 Bedside Glucose 117 mg/dl Patient Name: LAVERNE BRADY Unit Number: [id number] Dictated: 02/04/17737 Transcribed: 02/04/17737 MAITE Printed Date/Time: [~ rep prt dt]/[~ rep prt tm] [~ rep ct labl] - [~ rep ct ivnm] [facility] [place] [address] Dictated: 02/04/17737 Transcribed: 02/04/17737 JRB Printed Date/Time: [~ rep prt dt]/[~ rep prt tm] [~ rep ct labl] - [~ rep ct ivnm] CHEST ONE VIEW PORTABLE HISTORY: 56 years-old Male pneumonia acute dyspnea with lung cancer and pneumonia COMPARISON: CTA of the chest and chest radiograph 01/30/2017 TECHNIQUE: Portable upright AP view of the chest FINDINGS: Cardiac silhouette is mildly enlarged. Multifocal confluent segmental alveolar opacities throughout the left upper and left lower lobes and to lesser extent right upper lobe are again seen which appears stable from comparison. Previously mentioned left upper lobe nodule is not clearly seen. No pneumothorax or large pleural effusion identified. Bones of the chest are grossly intact. IMPRESSION: Stable exam with persistent multifocal confluent segmental alveolar opacities throughout the left upper and lower lobes and to a lesser extent within the right upper lobe. Findings suggest ongoing pneumonia. Continued follow-up recommended. The above report was generated using voice recognition software. It may contain grammatical, syntax or spelling errors. Electronically signed by: Rolan Hyde M.D. 02/04/2017 7:42 AM Dictated Date/Time: 02/04/2017 7:38 AM The status of this report is Signed. Draft = Not yet reviewed or approved by Radiologist. Signed = Reviewed and approved by Radiologist. <AttendingPhy>Efraín Almeida M.D.</AttendingPhy> <FamilyPhy>Efraín Zamudio III, M.D.</FamilyPhy> <PrimaryPhy>Efraín Zamudio III, M.D.</PrimaryPhy> <UnitNumber> [id number]</UnitNumber> <VisitNumber>[id number]</VisitNumber> <PatientName> LAVERNE BRADY</PatientName> <DateOfBirth>1960</DateOfBirth> <Location> [facility]</Location> <ServiceDate>01/30/17</ServiceDate> <MNE>ESINDI</MNE> < OrderingPhy>Tatiana Em M.D.</OrderingPhy> <OrderingPhyMNE>f rep ord dr cobos< /OrderingPhyMNE> <DictatingPhyMNE>f rep dict dr cobos</DictatingPhyMNE> <CCListMNE >f rep ct mne</CCListMNE> <AdmittingPhyMNE>f pt admit dr cobos</AdmittingPhyMNE> < AttendingPhyMNE>f pt attend dr cobos</AttendingPhyMNE> <ConsultingPhyMNE>f pt consult dr cobos</ConsultingPhyMNE> <FamilyPhyMNE>f pt fam dr cobos</FamilyPhyMNE> <OtherPhyMNE>f pt other dr cobos</OtherPhyMNE> < PrimaryPhyMNE>f pt prim care dr cobos</PrimaryPhyMNE> <ReferringPhyMNE>f pt referring dr cobos</ReferringPhyMNE> Assessment & Plan 56-year-old male with small cell lung cancer now presents with worsening shortness of breath and infiltrates on chest x-ray. Appears to have clinically responded to antibiotics although it is difficult to tell contribution of pulmonary emboli,underlying malignancy and previous radiation therapy to ongoing symptoms. Would recommend continuing oral levofloxacin for 7 more days , and transition patient to oral cefdinir 300 mg b.i.d., also for 7 days and discontinue cefepime. Will discuss. Will follow.
[2017-02-08] MEDS ORDERED: PERFLUTREN LIPID MICROSPHERE (DEFINITY) IV ONE (11:01)
[2017-02-08] MEDS: LEVOFLOXACIN 750 MG TAB PO SCH (11:47)
--- NOTE | 2017-02-08 12:50 | DOBUTAMINE ECHO ---
*NOTICE TO RECEIVING CONSTITUTION PARTY AGENCY This information is strictly Confidential and protected under [place] law. [place] law prohibits you from making any further disclosure of this information unless further disclosure is expressly permitted by the written consent of the person to whom it pertains or is authorized by law. A general authorization for the release of medical or other information is not sufficient for this purpose. Hospital accepts no responsibility if the information is made available to any other person, INCLUDING THE PATIENT. Interpretation Summary * Name: LAVERNE BRADY Study Date: 02/08/2017 10:05 AM BP: 128/57 mmHg * Patient Location: [facility]\S\N276\S\1 HR: 96 * : 1960 (M/d/yyyy) Gender: Male Height: 75 in * Age: 56 yrs Ethnicity: [place] Weight: 293 lb * Ordering Physician: Caleb Whalen DO * Referring Physician: Efraín Zamudio * Performed By: Merle Vargas RDCS * * Reason For Study: CHEST PAIN * BSA: 2.6 m2 * -- Conclusions -- * Nonischemic dobutamine stress echocardiogram. * No arrhythmias. * Normal HR and BP response to exercise. * Chest pain reproduced with deep inhalation. Procedure Details * DOBUTAMINE ECHO, CPT#80027 * The study was technically difficult with many images being suboptimal in quality. * A contrast injection of Definity was performed to improve assessment of LV function. * Contrast was injected into an intravenous site in the right arm. * One vial of Definity ultrasound contrast was diluted in normal saline to a total volume of 10 ml. A total of '7' ml of solution was administered during imaging. * Lot # [id number] of Definity utilized for procedure. * Expiration date 03/12. * The attending nurse who injected the contrast agent was PHU JENKINS RN. Stress Parameters * The stress portion of this study was personally supervised by the undersigned interpreting physician. * Rest heart rate was '96' BPM. * Rest blood pressure was '128/57' * Maximum heart rate achieved was 148 bpm. * Maximum heart rate was 89 % of maximum age-predicted heart rate. * Maximum blood pressure was '166/69' * Total exercise time was '10:00' * Maximum Dobutamine infusion rate was '40' mcg/kg/min. * Dobutamine infusion was terminated due to achieving target heart rate * A total of 5 mg of IV Metoprolol was administered to reverse Dobutamine-induced tachycardia. * The patient exhibited chest pain during the drug infusion. * Normal blood pressure response to exercise. * Target heart rate achieved.
[2017-02-08] MEDS: DIAZEPAM 2MG TAB PO PRN ×2 (14:32→22:18)
[2017-02-08] MEDS: CEFDINIR 300 MG CAP PO SCH ×2 (14:32→22:13)
--- NOTE | 2017-02-08 14:46 | Progress Note ---
Medicine Progress Note Date & Time of Visit: Feb 08, 2017 at 14:43. Subjective -felt SOB with central chest pressure last night -evaluated by Cards today and DSE was negative -chest pain was felt to be noncardiac in nature. -reports that he is having SOB and feeling it is difficult to expectorate while sitting up -plan for DC to [facility] in am -pt states that the Levaquin causes him sweats Objective Last 8 Hrs Date Time Temp Pulse Resp B/P (MAP) Pulse Ox O2 Delivery O2 Flow Rate FiO2 02/08/17 08:00 96 Room Air 1.0 02/08/17 07:14 37.1 84 18 126/76 (93) 93 Room Air 1.0 Physical Exam: GEN: WNWD, in no acute distress, alert and appropriate, 3L NC in place, no conversational dyspnea or respiratory distress. HEENT: NC/AT, normal sclerae, MMM CARDIO: reg rate, S1/2 heard without m/g/r LUNGS: CTA bilaterally,coarse rhonchi, rales or wheezes, good diaphragmatic excursion ABD: soft, non-tender, protuberant but non-distended, no rebound or guarding, + BS EXTREMITY: RP and DP palpable 2+ bilat, trace swelling in LLE, no overt edema, extremities are warm and well-perfused NEURO: CN 2-12 grossly intact MUSC: ambulatory, no gross focal deficits. SKIN: warm and diaphoretic Laboratory Results: 02/07/17 07:33 02/05/17 13:36 02/07/17 07:32 Test 01/30/17 11:35 01/31/17 07:02 02/01/17 07:25 02/05/17 13:36 Immature Granulocyte % (Auto) 1.2 % White Blood Count 15.71 K/uL (4.8-10.8) Red Blood Count 3.85 M/uL (4.7-6.1) Hemoglobin 11.4 g/dL (14.0-18.0) Hematocrit 38.0 % (42-52) Mean Corpuscular Volume 98.7 fL (80-100) Mean Corpuscular Hemoglobin 29.6 pg (25-34) Mean Corpuscular Hemoglobin Concent 30.0 g/dl (32-36) Platelet Count 216 K/uL (130-400) Mean Platelet Volume 11.5 fL (7.4-10.4) Neutrophils (%) (Auto) 90.3 % Lymphocytes (%) (Auto) 1.7 % Monocytes (%) (Auto) 5.0 % Eosinophils (%) (Auto) 1.7 % Basophils (%) (Auto) 0.1 % Neutrophils # (Auto) 14.19 K/uL (1.4-6.5) Lymphocytes # (Auto) 0.27 K/uL (1.2-3.4) Monocytes # (Auto) 0.78 K/uL (0.11-0.59) Eosinophils # (Auto) 0.26 K/uL (0-0.5) Basophils # (Auto) 0.02 K/uL (0-0.2) Immature Granulocyte # (Auto) 0.19 K/uL (0.00-0.02) Prothrombin Time 11.3 SECONDS (9.0-12.0) Prothromb Time International Ratio 1.1 (0.9-1.1) Activated Partial Thromboplast Time 23.3 SECONDS (21.0-31.0) Partial Thromboplastin Ratio 0.9 Lactic Acid Level 2.0 mmol/L (0.4-2.0) Magnesium Level 2.0 mg/dl (1.8-2.4) Total Bilirubin 0.2 mg/dl (0.2-1) Aspartate Amino Transf (AST/SGOT) 46 U/L (15-37) Alanine Aminotransferase (ALT/SGPT) 21 U/L (12-78) Alkaline Phosphatase 96 U/L (45-117) Troponin I < 0.015 ng/ml (0-0.045) Total Protein 7.6 gm/dl (6.4-8.2) Albumin 2.6 gm/dl (3.4-5.0) Globulin 5.0 gm/dl (2.5-4.0) Albumin/Globulin Ratio 0.5 (0.9-2) Hepatitis C Antibody Screen NEG (NEG) Nucleated RBC Absolute Count (auto) 0.06 K/uL (0-0) Nucleated Red Blood Cells % 0.6 % Estimated Average Glucose 137 mg/dl Hemoglobin A1c 6.4 % (4.5-5.6) Erythrocyte Sedimentation Rate 76 mm/hr (0-14) C-Reactive Protein 10.30 mg/dl (0-0.29) Pro-B-Type Natriuretic Peptide 139 pg/ml (0-900) Procalcitonin 0.08 ng/ml (0-0.5) Heparin Anti-Xa Act, Low Molec Wt 1.34 IU/ML (0 - <0.10) Anion Gap 10.0 mmol/L (3-11) BUN/Creatinine Ratio 18.8 (10-20) Calcium Level 8.8 mg/dl (8.5-10.1) Beta-Hydroxybutyric Acid 1.08 mg/dL (0.2-2.81) Test 02/07/17 07:32 02/07/17 07:33 02/08/17 11:27 Est Creatinine Clear Calc Drug Dose 151.5 ml/min Estimated GFR () 116.2 Estimated GFR (Non- 100.3 Red Blood Count 3.33 M/uL (4.7-6.1) Mean Corpuscular Volume 95.5 fL (80-100) Mean Corpuscular Hemoglobin 30.6 pg (25-34) Mean Corpuscular Hemoglobin Concent 32.1 g/dl (32-36) RDW Standard Deviation 62.0 fL (36.4-46.3) RDW Coefficient of Variation 17.6 % (11.5-14.5) Mean Platelet Volume 9.8 fL (7.4-10.4) Bedside Glucose 214 mg/dl (70-99) Date/Time Source Procedure Growth Status 01/30/17 11:48 Blood Blood Culture - Final NO GROWTH Complete 02/03/17 21:15 Sputum Expectorated Sputum Gram Stain - Final Complete 02/03/17 21:15 Sputum Expectorated Sputum Sputum Culture - Final MODERATE NORMAL CHI. Complete Last 24 Hours Test 02/07/17 16:39 02/07/17 20:41 02/07/17 21:52 02/08/17 07:16 Bedside Glucose 245 mg/dl 145 mg/dl 107 mg/dl 117 mg/dl Test 02/08/17 11:27 Bedside Glucose 214 mg/dl Assessment & Plan 56 yo M with SCLC diagnosed September 2016 who completed chemotherapy (carboplatin and etoposide) and XRT to his chest. He was found to have an UE DVT and was placed on Lovenox a couple of months ago by Dr. Gale. He then began getting fevers after every injection so these were held. Shortness of breath increased and his PCP put him on Levaquin, Rocephin and prednisone for 10 days, however, patient reports only taking the Rocephin. But he was no better, which was why he presented with SOB--found to have multifocal pneumonia and bilateral PE. Discussed the case with Dr. Gale who would like pulm input on the need for bronch in presence of a possible post-obstructive pneumonia in setting of known masses c/w SCLC. Dr. Geena Gale also weighed in and thought this could be a multifactorial issue with a contributing factor being radiation pneumonitis and he recommends prednisone 60mg PO daily x 2 weeks with a slow taper. Pulmonology agreed with the prednisone and argued against bronchoscopy as he was unable to tolerate a procedure at that time. He continued to improve on prednisone, broad abx and Lovenox. He underwent 2-step testing on 02/07 and was found to need 3L of supplemental oxygen with ambulation. He was set to leave for [facility] for pulmonary rehabilitation but then developed acute substernal chest tightness and pain that lasted roughly 30 minutes. Cardiology was consulted and performed a stress echo on him which was negative. The chest pain was presumed non-cardiac at that point and likely a result of all the other ongoing processes in his chest area. He did well today without symptoms. 1. Acute respiratory failure-etiologies are multifactorial including pulmonary emboli (likely the result of noncompliance with Lovenox in the setting of a DVT and malignancy), multifocal pneumonia, and radiation pneumonitis. He also has underlying small cell lung cancer. Cont on Lovenox full dose every 12 hours. Anti-Xa level 1.33 02/02; enoxaparin dose adjusted to 120 mg every 12 hours. Anti-Xa level 1.34 02/05; enoxaparin dose adjusted to 100 mg every 12 hours. Cont prednisone at high dose with long taper. Cont oxygen supplementation. Although there was no wheezing on exam today, I ordered breathing treatments and a flutter valve to help him expectorate some mucous and to treat some subjective shortness of breath that was occurring overnight. Needs outpatient workup per pulm following pulmonary rehab. 2. Pneumonia-ID was consulted and recommended continued Levaquin with change of IV Cefepime to PO Cedinir in preparation for discharge. 3. SCLC-s/p chemo and radiation as above. Management per Oncology 4. DMII-controlled, apprec glycemic pharmacy recs. 5. Anxiety-present but controlled with valium 6. Chronic back pain-continues on home methadone\ 7. Anemia of chronic disease-at baseline, no indication for transfusion. DVT proph-Lovenox (full dose) Full Code Dispo-to [facility] in am. Ruby Rodriguez DO [facility] Hospitalist Consultants: Pulmonary- Dr. Em Rad Oncology -Dr. Geena Gale Medical Oncology- Dr. Jolynn Gale Cardiology . Current Inpatient Medications: Current Inpatient Medications Medications (Trade) Dose Ordered Sig/Prince Route Start Time Stop Time Status Last Admin Dose Admin Ondansetron HCl (Zofran Inj) 4 mg Q6H PRN IV 01/30/17 15:30 03/01/17 15:29 Glucose (Glucose 40% Gel) 15-30 GRAMS 15 GRAMS... UD PRN PO 01/30/17 15:30 03/01/17 15:29 Glucose (Glucose Chew Tab) 4-8 Tablets 4 Tabl... UD PRN PO 01/30/17 15:30 03/01/17 15:29 Dextrose (Dextrose 50% 50ML Syringe) 25-50ML OF 50% DW IV FOR... UD PRN IV 01/30/17 15:30 03/01/17 15:29 Glucagon (Glucagon Inj) 1 mg UD PRN SQ 01/30/17 15:30 03/01/17 15:29 Levalbuterol (Xopenex 0.31MG/ 3ML Neb) 0.31 mg Q4 PRN INH 01/30/17 15:30 03/01/17 15:29 Aspirin (Ecotrin Tab) 325 mg QAM PO 01/31/17 09:00 03/02/17 08:59 02/08/17 08:40 325 MG Dimenhydrinate (Dramamine Tab) 50 mg Q4H PRN PO 01/30/17 15:45 03/01/17 15:44 Prochlorperazine Maleate (Compazine Tab) 10 mg Q6 PRN PO 01/30/17 15:45 03/01/17 15:44 Tramadol HCl (Ultram Tab) 50 mg Q6H PRN PO 01/30/17 15:45 03/01/17 15:44 02/08/17 08:51 50 MG Zolpidem Tartrate (Ambien Tab) 10 mg HS PO 01/30/17 21:00 03/01/17 20:59 02/07/17 23:19 10 MG Cholecalciferol (Vitamin D Tab) 5,000 inter.unit DAILY PO 01/31/17 09:00 03/02/17 08:59 02/08/17 08:41 5,000 INTER.UNIT Oxymetazoline HCl (Afrin 0.05% Nasal [place]) 1 sprays DAILY PRN JB 01/31/17 01:15 03/02/17 01:14 02/02/17 02:02 1 SPRAYS Methadone HCl (Dolophine Tab) 10 mg QIDM PO 01/31/17 08:00 02/14/17 07:59 02/08/17 11:51 10 MG Diazepam (Valium Tab) 4 mg Q8H PRN PO 01/31/17 14:30 03/01/17 15:44 02/08/17 14:32 4 MG Calcium Carbonate (Tums Chew Tab) 500 mg BID PRN PO 01/31/17 14:30 03/02/17 14:29 Prednisone (PredniSONE TAB) 60 mg DAILY PO 02/01/17 09:00 03/03/17 08:59 02/08/17 08:41 60 MG Enoxaparin Sodium (Consult) 1 ea UD PRN N/A 02/02/17 17:27 03/04/17 17:26 Insulin Human NPH (novoLIN-N NPH) SEE PROTOCOL TEXT BID SC 02/03/17 21:00 03/02/17 20:59 02/08/17 08:55 45 UNITS Insulin Human Regular (novoLIN-R) SLIDING SCALE IF C... ACHS SC 02/03/17 21:00 03/02/17 10:59 02/08/17 11:51 35 UNITS Enoxaparin Sodium (Lovenox Inj) 100 mg Q12H SQ 02/07/17 00:00 03/09/17 00:00 Future hold 02/08/17 11:47 100 MG Tramadol HCl (Ultram Tab) 25 mg Q6H PRN PO 02/07/17 23:45 03/09/17 23:44 Furosemide (Lasix Tab) 20 mg DAILY PRN PO 02/08/17 05:00 03/10/17 04:59 Cefdinir (Omnicef Cap) 300 mg Q12 PO 02/08/17 14:00 02/15/17 13:59 02/08/17 14:32 300 MG
[2017-02-08] MEDS: ALBUT/IPRATROP 3MG/0.5MG NEB 3 ML VIAL INH SCH ×2 (15:52→19:00)
--- NOTE | 2017-02-08 17:15 | Pharmacy Progress Note ---
Anticoagulant Dosing Consult Date of Service: Feb 08, 2017. Pharmacy Dosing Scope Pharmacy is consulted to initiate/evaluate ENOXAPARIN-SQ dosing therapy, order appropriate labs and adjust drug dose/frequency. Subjective The patient is a 56 year old male admitted on Jan 30, 2017 at 15:20 for Bilateral Pulmonary Embolism, Pneumonia. Patient is to receive THERAPEUTIC enoxaparin-sq for history recent DVT, now presenting with B/L PE on admission 01/30/17 * Of note: pt had recently stopped enox inj INVESTIGATIONS CHIEF d/t pain with abdominal injections. Pertinent PMH: lung CA (completed chemo/radiation) Objective Height (Feet): 6 Height (Inches): 3.00 Weight (Kilograms): 133.200 Laboratory Results: Last 72 Hours Test 02/07/17 07:33 02/08/17 16:13 Platelet Count 264 K/uL Item Value Date Time Heparin Anti-Xa Act, Low Molec Wt 0.86 IU/ML 02/08/17 1613 Heparin Anti-Xa Act, Low Molec Wt 1.34 IU/ML 02/05/17 1336 Heparin Anti-Xa Act, Low Molec Wt 1.33 IU/ML 02/02/17 1529 Recent Anticoagulant Meds * From 01/30 --> 02/02/17: enox 141mg sq q 12 hours * From 02/02 --> 02/05/17: dose decreased to enox 120mg (0.9 mg/kg) sq q 12 hours * From 02/05/17 to current: dose decreased to enoxaparin 100mg (0.75 mg/kg) sq q 12 hours Assessment & Plan Regarding THERAPEUTIC Enoxaparin: * Anticipate prolonged therapy 2nd active malignancy * Goal Xa level 0.5-1.0 IV/mL for therapeutic enoxaparin dosed BID * Current Xa level of 0.86 IU/mL is THERAPEUTIC * This was drawn @ [facility] Plan * Continue Enoxaparin 100mg (0.75mg/kg) sub-q every 12 hours for recent B/L PE 01/30/17 * Continue to monitor Xa in out-pt setting. * I anticipate may continue to either decrease dose &/or extend dosing interval over time in setting of obesity and extended duration of therapy. We will continue to monitor this patient and make adjustments as needed while admitted. Thank you.
[2017-02-08] MEDS: ZOLPIDEM TARTRATE 10 MG TAB PO SCH (23:43)
[2017-02-09 03:36] VITALS: BP 123/72; PULSE 88; TEMP 36.9; O2SAT 90
[2017-02-09] MEDS: INSULIN HUMAN REGULAR SC SCH ×2 (06:30→11:48)
[2017-02-09 06:45] LABS: HEMATOCRIT 31.2 % (42-52); MEAN CORPUSCULAR HEMOGLOBIN 29.5 pg (25-34); MEAN CORPUSCULAR HGB CONC 30.8 g/dl (32-36); MEAN PLATELET VOLUME 9.6 fL (7.4-10.4); PLATELET COUNT 252 K/uL (130-400); RED BLOOD COUNT 3.25 M/uL (4.7-6.1); WHITE BLOOD COUNT 7.95 K/uL (4.8-10.8)
[2017-02-09 07:14] LABS: BUN/CREATININE RATIO 27.2 (10-20); CREATININE 0.73 mg/dl (0.60-1.40); POTASSIUM 3.7 mmol/L (3.5-5.1)
[2017-02-09] MEDS: ALBUT/IPRATROP 3MG/0.5MG NEB 3 ML VIAL INH SCH ×2 (07:18→11:11)
[2017-02-09 08:00] VITALS: O2SAT 90
[2017-02-09] MEDS: CHOLECALCIFEROL 1000 INTER.UNIT TAB PO SCH (08:02)
[2017-02-09] MEDS: CEFDINIR 300 MG CAP PO SCH (08:02)
[2017-02-09] MEDS: ASPIRIN 325 MG ECTAB PO SCH (08:02)
[2017-02-09] MEDS: TRAMADOL HCL 50 MG TAB PO PRN (08:07)
[2017-02-09] MEDS: METHADONE HCL 10 MG TAB PO SCH ×2 (08:08→11:43)
[2017-02-09] MEDS: INSULIN HUMAN NPH SC SCH (08:10)
[2017-02-09 08:14] VITALS: BP 129/76; PULSE 85; TEMP 37; O2SAT 90
[2017-02-09 11:11] VITALS: PULSE 79; O2SAT 94
[2017-02-09 11:20] VITALS: BP 133/69; PULSE 112; TEMP 36.9; O2SAT 94
[2017-02-09] MEDS ORDERED: CEFD300C3 PO (11:40)
[2017-02-09] MEDS ORDERED: PRD20 PO (11:40)
[2017-02-09] MEDS ORDERED: LEVO750T23 PO (11:40)
[2017-02-09] MEDS ORDERED: LVNIS100 SQ (11:40)
[2017-02-09] MEDS ORDERED: LEVOFLOXACIN 750 MG TAB PO STA (11:41)
[2017-02-09] MEDS ORDERED: METH10TA2 PO (11:42)
[2017-02-09] MEDS: ENOXAPARIN 100 MG/1ML SYR SQ SCH (11:43)
[2017-02-09] MEDS: DIAZEPAM 2MG TAB PO PRN (11:43)
[2017-02-09] MEDS ORDERED: DIAZ2TAB PO (11:44)
--- NOTE | 2017-02-09 12:02 | Discharge Instructions ---
Discharge Instructions Date of Service Feb 09, 2017. Admission Reason for Admission: Bilateral Pulmonary Embolism, Pneumonia Discharge Discharge Diagnosis / Problem: hypoxia, bilateral PE, multifocal pneumonia Discharge Goals Goal(s): Prevent Disease Progression Activity Recommendations Activity Limitations: per Instructions/Follow-up section . Instructions / Follow-Up Instructions / Follow-Up Please continue all medications as instructed. You have to take Lovenox injections indefinitely or until otherwise instructed by Dr. Brett Gale (Oncology) You are being treated with PREDNISONE which requires a long taper. You are currently taking 60mg every day which will continue 4 more days (through 02/13) . Then on 02/14 you will need to take 50mg by mouth daily x 7 days, then 40mg daily x 7 days, then 30mg daily x 7 days, then 20mg daily x 7 days, then 10mg daily x 7 days. Take all until complete. You will receive a prescription for the predisone to be continued once you leave [facility]. After discharge from [facility] it is recommended that you have see Pulmonology for some baseline pulmonary function tests, and to establish care as an outpatient. The c d area supervisor you saw in the hospital was Dr. Jena Em who is with the [facility] Pulmonary Dept. It is recommended that you undergo a repeat chest x-ray within 4-6 weeks to ensure resolution of the pneumonia. You will need a follow-up appointment with your primary care provider within one week of discharge from [facility] for follow-up from this hospitalization. You will need a follow-up appointment with Oncology (Dr. Gale's office) within a few weeks of discharge from rehab, also. Please call his office to set this up if not already done. You will need a 2 week follow-up appointment with Radiation Oncology (Dr. Guanakito Gale) per his instruction. Please call his office to set this up. It was a pleasure taking care of you! Call if you have any questions or problems. You can reach a [facility] hospitalist on duty at [facility] 24 hours a day by calling [phone]. Take care of yourself. Ruby Rodriguez, [facility] Hospitalist Current Hospital Diet Patient's current hospital diet: Diabetes Type 2 Diet Discharge Diet Recommended Diet: Diabetes Type 2 Diet Procedures Procedures Performed: DSE 11/16 Pending Studies Studies pending at discharge: no Laboratory Results Hemoglobin A1c Test 01/31/17 07:02 Range/Units Estimated Average Glucose 137 mg/dl Hemoglobin A1c 6.4 H 4.5-5.6 % Medical Emergencies . Who to Call and When: Medical Emergencies: If at any time you feel your situation is an emergency, please call 911 immediately. . Non-Emergent Contact Non-Emergency issues call your: Primary Care Provider . . "Provider Documentation" section prepared by Ruby Rodriguez. . VTE Core Measure Inpt VTE Proph given/why not?: Enoxaparin (Lovenox)SQ [place] Drug Monitoring Program Search Results: patient reviewed within database, see additional documentation (pt stated that he was on valium 4mg BID PRN, however, he is only prescribed 2mg BID PRN. Will adjust this at discharge. )
[2017-02-09] MEDS ORDERED: VLM2 PO ×2 (12:03→12:04)
[2017-02-09 13:01] VITALS: BP 133/69; PULSE 112; TEMP 36.9; O2SAT 94
--- NOTE | 2017-02-11 18:13 | Discharge Summary ---
Discharge Summary Date of Service Feb 11, 2017. Discharge Summary Admission Date: Jan 30, 2017 at 15:20 Discharge Date: Feb 09, 2017 Discharge Disposition: Rehab Principal Diagnosis: Acute respiratory failure 2/2 multifactorial etiology including: a) Radiation Pneumonitis b) Multifocal CAP c) Acute pulmonary emboli 2/2 non-compliance with Lovenox d) Small cell lung cancer SCLC s/p chemo and XRT DMII Anxiety Chronic back pain-managed with chronic methodone Anemia of chronic disease Procedures: TTE (02/08): -- Conclusions -- * Nonischemic dobutamine stress echocardiogram. * No arrhythmias. * Normal HR and BP response to exercise. * Chest pain reproduced with deep inhalation. Vaccinations: None. Consultations: Pulmonary- Dr. Em Rad Oncology -Dr. Geena Gale Medical Oncology- Dr. Jolynn Gale Cardiology . Pending Studies/Follow-Up: see instructions below. Medication Reconciliation New Medications: Levofloxacin (Levaquin) 750 Mg Tab 750 MG PO DAILY for 6 Days, #6 TAB Cefdinir (Cefdinir) 300 Mg Cap 300 MG PO Q12 for 6 Days, #12 CAP Enoxaparin (Enoxaparin Sodium) 100 Mg/Ml Inj 100 MG SQ Q12H for 30 Days, #60 SYR 1 Refill Prednisone (Prednisone) 20 Mg Tab 60 MG PO DAILY for 4 Days, #12 TAB Follow taper once 60mg dose is complete on 02/13, then step down 10mg per week until gone -50mg PO daily x 7 days, 40mg PO x 7 days, etc. See taper instructions on discharge summary sheet Changed Medications: Methadone Hcl (Dolophine) 10 Mg Tab 10 MG PO QID for 7 Days, #28 TAB (Changed from: 20 MG; BID; Removed Instructions ) Continued Medications: Aspirin (Aspirin Ec) 325 Mg Tab 325 MG PO QAM Cholecalciferol (Vitamin D) 5,000 Unit Tab 5000 UNITS PO DAILY Diazepam (Diazepam) 2 Mg Tab 2 MG PO BID PRN for Anxiety/Agitation for 7 Days, #14 TAB (This prescription has been renewed) Dimenhydrinate (Dramamine) 50 Mg Tab 50 MG PO Q4H PRN for Nausea Furosemide (Lasix) 20 Mg Tab 20 MG PO DAILY PRN for SWELLING, TAB Insulin Human Regular (Humulin R) 1 Ea Inj 1 DOSE SQ AC PRN for SLIDING SCALE Insulin Isophane (Human) (Humulin N Kwikpen) 100 Unit/Ml Inj 90 UNITS SQ HS PT STATES DOSE FLUXUATES Insulin Isophane (Human) (Humulin N Kwikpen) 100 Unit/Ml Inj 70 SQ QAM 70-90 UNITS Ipratropium-Albuterol (Combivent Respimat) 1 Aer Aer 1 PUFFS INH QID, INH Ondansetron Hcl (Zofran) 8 Mg Tab 8 MG PO Q8 PRN for Nausea, TAB Prochlorperazine Maleate (Compazine) 10 Mg Tab 10 MG PO Q6 PRN for Nausea for 7 Days, #30 TAB 3 Refills Tramadol (Ultram) 50 Mg Tab 50 MG PO Q6H PRN for Pain, TAB Vitamin E (E-400) 400 Unit Cap 400 MG PO TIDM Zolpidem Tartrate (Ambien) 10 Mg Tab 10 MG PO HS, TAB Discontinued Medications: Ibuprofen (Ibuprofen) 200 Mg Tab 200 MG PO UD PRN for Pain Phenazopyridine Hcl (Azo Standard Maximum Stre) 97.5 Mg Tab 195 MG PO DAILY Potassium (Potassium) 99 Mg Tab 99 MG PO TID Admission Information HPI (per Admitting provider): This is a 56yo M with a PMH of small cell lung cancer (completed chemo/ radiation in Nov), h/o L UE DVT (with recent cessation of Lovenox), DM II and chronic back pain who presents after failing out-patient treatment for PNA. Patient received 5 days of treatment with IM rocephin, prednisone and combivent inhaler and when he returned for follow-up with PCP today, was found to be hypoxic and was sent to the ER for further evaluation. Repeat XR show a significant interval increase in L lung as well as a new opacity in the R lung. Chest/thorax CTA shows bilateral PEs. Patient had been on lovenox until a week ago, when he decided to stop it due to experiencing fevers and cold sweats. Had been injecting lovenox into his thighs due to the pain he experienced when injecting his stomach. Symptoms have improved since then, per patient. Unclear in chart review whether patient discussed cessation of lovenox with his oncologist, Dr. Gale. Currently endorsing a productive cough and SOB. Denies fever, chills, wheezing, CP, abd pain, nausea, vomiting, calf pain or swelling of any extremities. Physical Exam (per Admitting): General Appearance: no apparent distress, + obese Head: normocephalic, atraumatic Eyes: normal inspection, PERRL, EOMI, sclerae normal ENT: normal ENT inspection, hearing grossly normal, pharynx normal Neck: supple, no adenopathy, trachea midline Respiratory/Chest: chest non-tender, no respiratory distress, no accessory muscle use, + crackles Cardiovascular: regular rate, rhythm, no murmur Abdomen/GI: normal bowel sounds, non tender, soft, no organomegaly Back: normal inspection Extremities/Musculoskelatal: normal inspection, no calf tenderness, no pedal edema Neurologic/Psych: no motor/sensory deficits, alert, oriented x 3 Skin: normal color, warm/dry, no rash Hospital Course 56 yo M with SCLC diagnosed September 2016 who completed chemotherapy (carboplatin and etoposide) and XRT to his chest. He was found to have an UE DVT and was placed on Lovenox a couple of months ago by Dr. Gale. He then began getting fevers after every injection so these were held. Shortness of breath increased and his PCP put him on Levaquin, Rocephin and prednisone for 10 days, however, patient reports only taking the Rocephin. He continued to decline, which was why he presented with SOB--found to have multifocal pneumonia and bilateral PE. Oncology, Radiation oncology and Pulmonology were all consulted. A bronch was considered but not performed 2/2 the patient improving on conservative therapy. He was placed on a long prednisone taper starting at 60mg PO x 2 weeks , and decreasing by 10mg weekly until finished as a treatment for suspected radiation pneumonitis. Pulmonology agreed with the prednisone and argued against bronchoscopy as he was unable to tolerate a procedure at that time. He continued to improve on prednisone, broad abx and Lovenox. He underwent 2-step testing on 02/07 and was found to need 3L of supplemental oxygen with ambulation. He was set to leave for [facility] for pulmonary rehabilitation but then developed acute substernal chest tightness and pain that lasted roughly 30 minutes. Cardiology was consulted and performed a stress echo on him which was negative. The chest pain was presumed non-cardiac at that point and likely a result of all the other ongoing processes in his chest area. He continued to do well without symptoms and on day of discharge he was still hypoxic, but was improved. He was mentating and ambulating at baseline and was tolerating PO. He was discharged in good condition to [facility] for continued pulmonary rehabilitation and was continued on Lovenox indefinitely. Total time spent on discharge = 60 minutes This includes examination of the patient, discharge planning, medication reconciliation, and communication with other providers. Discharge Instructions [facility] [address] [place] [address] Discharge Medical Patient Name: Dann Carcamo Unit Number: [id number] Date of : 1960 Patient Status: Discharged Inpatient Attending Doctor: Ruby Rodriguez DO DI: Medical v4 Discharge Instructions Date of Service Feb 09, 2017. Admission Reason for Admission: Bilateral Pulmonary Embolism, Pneumonia Discharge Discharge Diagnosis / Problem: hypoxia, bilateral PE, multifocal pneumonia Discharge Goals Goal(s): Prevent Disease Progression Activity Recommendations Activity Limitations: per Instructions/Follow-up section . Instructions / Follow-Up Instructions / Follow-Up Please continue all medications as instructed. You have to take Lovenox injections indefinitely or until otherwise instructed by Dr. Brett Gael (Oncology) You are being treated with PREDNISONE which requires a long taper. You are currently taking 60mg every day which will continue 4 more days (through 02/13) . Then on 02/14 you will need to take 50mg by mouth daily x 7 days, then 40mg daily x 7 days, then 30mg daily x 7 days, then 20mg daily x 7 days, then 10mg daily x 7 days. Take all until complete. You will receive a prescription for the predisone to be continued once you leave [facility]. After discharge from [facility] it is recommended that you have see Pulmonology for some baseline pulmonary function tests, and to establish care as an outpatient. The publicity consultant you saw in the hospital was Dr. Jena mE who is with the [facility] Pulmonary Dept. It is recommended that you undergo a repeat chest x-ray within 4-6 weeks to ensure resolution of the pneumonia. You will need a follow-up appointment with your primary care provider within one week of discharge from [facility] for follow-up from this hospitalization. You will need a follow-up appointment with Oncology (Dr. Gale's office) within a few weeks of discharge from rehab, also. Please call his office to set this up if not already done. You will need a 2 week follow-up appointment with Radiation Oncology (Dr. Guanakito Gale) per his instruction. Please call his office to set this up. It was a pleasure taking care of you! Call if you have any questions or problems. You can reach a [facility] hospitalist on duty at [facility] 24 hours a day by calling [phone]. Take care of yourself. Ruby Rodriguez, [facility] Hospitalist Current Hospital Diet Patient's current hospital diet: Diabetes Type 2 Diet Discharge Diet Recommended Diet: Diabetes Type 2 Diet Procedures Procedures Performed: DSE 02/08 Pending Studies Studies pending at discharge: no Laboratory Results Hemoglobin A1c Test 01/31/17 07:02 Range/Units Estimated Average Glucose 137 mg/dl Hemoglobin A1c 6.4 H 4.5-5.6 % Medical Emergencies . Who to Call and When: Medical Emergencies: If at any time you feel your situation is an emergency, please call 911 immediately. . Non-Emergent Contact Non-Emergency issues call your: Primary Care Provider . . "Provider Documentation" section prepared by Ruby Rodriguez. . VTE Core Measure Inpt VTE Proph given/why not?: Enoxaparin (Lovenox) [place] Drug Monitoring Program Search Results: patient reviewed within database, see additional documentation (pt stated that he was on valium 4mg BID PRN, however, he is only prescribed 2mg BID PRN. Will adjust this at discharge. ) Additional Copies To Brett Gale M.D.; Veeral. Gale MD; Efraín Zamudio III, M.D.
== END 2017-02-09 14:05 | DRG 177 ==
LOC: C.EDB 11:15 → C.MED 15:20 → ENRESERV 15:41
PROVIDERS: ADMIT Family Medicine; ATTEND Hospitalist
DX: J15.6 Pneumonia due to other Gram-negative bacteria (principal); I26.99 Other pulmonary embolism without acute cor pulmonale; C34.90 Malignant neoplasm of unspecified part of unspecified bronchus or lung; D63.8 Anemia in other chronic diseases classified elsewhere; E11.9 Type 2 diabetes mellitus without complications; G89.29 Other chronic pain; M54.9 Dorsalgia, unspecified; F41.9 Anxiety disorder, unspecified; K21.9 Gastro-esophageal reflux disease without esophagitis; J70.0 Acute pulmonary manifestations due to radiation; Z79.4 Long term (current) use of insulin; Z79.82 Long term (current) use of aspirin; Z87.891 Personal history of nicotine dependence; Z83.3 Family history of diabetes mellitus

== ENCOUNTER 2017-02-17 04:05 | Inpatient (IN) | payer OTHER ==
[2017-02-17] VITALS (42 sets, daily range): BP systolic 84–174; BP diastolic 59–103; PULSE 86–141; TEMP 37–38.9; O2SAT 71–100; Ht 190.5 cm; Wt 126.1 kg
[~2017-02-17] VITALS: Ht 190.5 cm; Wt 126.1 kg
[~2017-02-17 04:05] MED LIST changes: -ASCA500 PO; -Azo PO; -BIOT7500 PO; +CEFD300C3 PO; -DIAZ2TAB PO; -GARL10007 PO; +IPRA1AER2 INH; +LVNIS100 SQ; -MAGN500C PO; -OMEG10007 PO; -POTASSIUM 99 PO; +PRD20 PO; +VLM2 PO
[2017-02-17 04:43] LABS: HEMATOCRIT 33.5 % (42-52); HEMOGLOBIN 10.4 g/dL (14.0-18.0); MEAN CELL VOLUME 94.4 fL (80-100); MEAN CORPUSCULAR HEMOGLOBIN 29.3 pg (25-34); MEAN PLATELET VOLUME 9.9 fL (7.4-10.4); NUCLEATED RED BLOOD CELL ABS 0.05 K/uL (0-0); PLATELET COUNT 282 K/uL (130-400); RED CELL DISTRIBUTION WIDTH CV 17.9 % (11.5-14.5); WHITE BLOOD COUNT 12.75 K/uL (4.8-10.8)
[2017-02-17] MEDS ORDERED: ASPIRIN/ALUM/MAGNES/CAL CARB 325 MG TAB PO STA (04:54)
[2017-02-17] MEDS ORDERED: POLY335019 PO (04:57)
[2017-02-17] MEDS ORDERED: BIOT1CHW PO (04:57)
[2017-02-17] MEDS ORDERED: SODIENE PR (04:57)
[2017-02-17] MEDS ORDERED: METH10TA2 PO (04:57)
[2017-02-17] MEDS ORDERED: AFRINWC (04:57)
[2017-02-17] MEDS ORDERED: DIAZ2TAB PO (04:57)
[2017-02-17] MEDS ORDERED: MOMLX PO (04:57)
[2017-02-17] MEDS ORDERED: ENOX120I SQ (04:57)
[2017-02-17] MEDS ORDERED: LEVO-17 PO (04:57)
[2017-02-17] MEDS ORDERED: DOCU100C31 PO (04:57)
[2017-02-17] MEDS ORDERED: SENN8.6T7 PO (04:57)
[2017-02-17] MEDS ORDERED: BISA10SU5 RE (04:57)
[2017-02-17] MEDS ORDERED: INSU1INJ SC (04:57)
[2017-02-17] MEDS ORDERED: PRED10TA PO (04:57)
[2017-02-17] MEDS ORDERED: LEVA1.255 INH (04:57)
[2017-02-17 05:00] LABS: INR 1.1 (0.9-1.1)
[2017-02-17 05:01] LABS: ALBUMIN 2.2 gm/dl (3.4-5.0); ALT/SGPT 20 U/L (12-78); AST/SGOT 61 U/L (15-37); BLOOD UREA NITROGEN 19 mg/dl (7-18); CALCIUM 9.3 mg/dl (8.5-10.1); CARBON DIOXIDE 30 mmol/L (21-32); CREATININE 0.97 mg/dl (0.60-1.40); GLUCOSE 106 mg/dl (70-99); POTASSIUM 4.2 mmol/L (3.5-5.1); SODIUM 132 mmol/L (136-145)
[2017-02-17 05:06] LABS: ALKALINE PHOSPHATASE 96 U/L (45-117); TOTAL PROTEIN 6.9 gm/dl (6.4-8.2)
[2017-02-17] MEDS ORDERED: CEFEPIME IV 2,000 MG in SYRINGE 7.5 ML IV SCH (05:16)
[2017-02-17] MEDS ORDERED: VANCOMYCIN INJ 2,000 MG in SODIUM CHLORIDE 0.9% 500ML 500 ML IV STA (05:16)
[2017-02-17] MEDS ORDERED: CEFEPIME IV 2,000 MG in DEXTROSE 5% 100ML 100 ML IV STA (05:16)
[2017-02-17] MEDS ORDERED: AZITHROMYCIN 250 MG TAB PO ONE (05:30)
[2017-02-17] MEDS ORDERED: SODIUM CHLORIDE 0.9% 1000ML 1,000 ML IV STA (05:40)
[2017-02-17 05:49] LABS: BASO % 0.2 %; BASO ABS # 0.02 K/uL (0-0.2); EOS % 0.6 %; EOS ABS # 0.08 K/uL (0-0.5); IG# 0.09 K/uL (0.00-0.02); LYMPH % 3.5 %; LYMPH ABS # 0.44 K/uL (1.2-3.4); MONO % 6.2 %; MONO ABS # 0.79 K/uL (0.11-0.59); NEUT % 88.8 %; NEUT ABS # 11.33 K/uL (1.4-6.5)
[2017-02-17] MEDS ORDERED: FUROSEMIDE 20 MG TAB PO PRN (06:30)
[2017-02-17] MEDS ORDERED: DOCUSATE SODIUM/SENNA 50/8.6MG TAB PO PRN (06:30)
[2017-02-17] MEDS ORDERED: POLYETHYLENE (MIRALAX) 17 GM PACK PO PRN (06:30)
[2017-02-17] MEDS ORDERED: ALUMINUM/MAGNESIUM/SIMETH (MAALOX MAX) 30 ML UDC PO PRN (06:30)
[2017-02-17] MEDS ORDERED: ONDANSETRON 8 MG TAB PO PRN (06:30)
[2017-02-17] MEDS ORDERED: MAGNESIUM HYDROXIDE SUSP 30 ML UDC PO PRN ×2 (06:30)
[2017-02-17] MEDS ORDERED: TRAMADOL HCL 50 MG TAB PO PRN (06:30)
[2017-02-17] MEDS ORDERED: ACETAMINOPHEN 325 MG TAB PO PRN (06:30)
[2017-02-17] MEDS ORDERED: LEVALBUTEROL 1.25MG/0.5ML NEB INH PRN (06:30)
[2017-02-17] MEDS ORDERED: METHADONE HCL 5 MG TAB PO STA (06:42)
--- NOTE | 2017-02-17 06:49 | History and Physical ---
History & Physical Date & Time of Service: Feb 17, 2017 at 06:32 Chief Complaint: Shortness Of Breath, Pneumonia Primary Care Physician: Tammy Ramirez History of Present Illness Source: patient, clinic records, hospital records This is a 56 year old male with a PMH of small cell lung CA - has undergone chemo/radiation, hx. of upper extremity DVT, insulin dependent DM2, diabetic polyneuropathy - was recently admitted to [facility] due to bilateral PEs and was placed back on Lovenox - had a long stay in the hospital to treat the PEs, pneumonia as well as radiation pneumonitis. He was discharged on 02/09 to [facility]. States he was doing well there the first few days, but tells me that a nebulizer that he was getting over there made him worse. As per records, he was becoming febrile and hypoxic prior to arrival. They tried a non- rebreather bringing his O2 sats to the upper 80s. He was sent via EMS to the ER ; in the ER patient was febrile, hypoxic - refused nebulizer treatments, refused bipap mask. Currently on a face-mask; saturating in the 88-92 range; but drops with any type of exertion. Denies chest pain/palpitations. Past Medical/Surgical History Medical Problems: (1) Anxiety Status: Chronic (2) Chronic back pain Status: Chronic (3) Insulin dependent type 2 diabetes mellitus Status: Chronic Surgical Problems: (1) History of back surgery Status: Resolved Family History Diabetes mellitus Social History Smoking Status: Former Smoker Marital Status: single Occupational Status: unemployed Multi-Drug Resistant Organisms History of MDRO: No Allergies Coded Allergies: Amoxicillin (Verified Allergy, Intermediate, sob, 02/17/17) PER CONVERSATION WITH ANSELMO AQUINO PA-C - SHE SPOKE WITH PATIENT WHO STATES THAT THIS IS NOT A TRUE ALLERGY HE HAS TOLERATED PENCILLINS IN THE PAST. TOLERATES ROCEPHIN X 5 DOSES AN OUTPATIENT. Atorvastatin (Verified Allergy, Intermediate, diarrhea, 02/17/17) Acetaminophen (Verified Allergy, Unknown, PT STATES "IT INTENSIFIES EFFECT ", 02/17/17) Clindamycin (Verified Allergy, Unknown, SHORTNESS OF BREATH, 02/17/17) Escitalopram (Verified Allergy, Unknown, GI UPSET, 02/17/17) Gabapentin (Verified Allergy, Unknown, CONSTIPATION, 02/17/17) Insulin Aspart (Verified Allergy, Unknown, ALLERGIC TO PRESERVATIVES IN NOVOLOG - OK WITH REGULAR/NPH, 02/17/17) Morphine (Verified Allergy, Unknown, DID NOT TOLERATE PER PT, 02/17/17) Propoxyphene (Verified Allergy, Unknown, "DID CRAZY THINGS", 02/17/17) Sitagliptin (Verified Allergy, Unknown, UNKNOWN RXN, 02/17/17) Adhesives (Verified Adverse Reaction, Unknown, "rips his skin off", ) Dextromethorphan (Verified Adverse Reaction, Unknown, HARD TO BREATHE?, ) Guaifenesin (Verified Adverse Reaction, Unknown, HARD TO BREATHE?, ) Metformin (Verified Adverse Reaction, Unknown, PT STATES "DID NOT WORK", 02/17/17) Home Medications Scheduled Aspirin (Aspirin Ec), 325 MG PO QAM Biotin W/ Vitamins C & E (Hair/Skin/Nails 1250-7.5-7.5 Mcg-mg-Unt), 1 TAB PO DAILY Cholecalciferol (Vitamin D), 5,000 UNITS PO DAILY Docusate Sodium (Docusate Sodium), 100 MG PO BID Enoxaparin (Lovenox), 120 MG SQ Q12H Insulin Isophan/Regular (Humulin 70/30), 105 UNITS SC BIDM Levalbuterol Hcl (Levalbuterol), 1 AMP INH Q6H Levofloxacin (Levaquin), 750 MG PO DAILY Methadone Hcl (Dolophine), 10 MG PO Q6H Prednisone (Prednisone), 50 MG PO DAILY Vitamin E (E-400), 400 MG PO TIDM Zolpidem Tartrate (Ambien), 10 MG PO HS Scheduled PRN Bisacodyl (Bisacodyl), 10 MG RE DAILY PRN for Constipation Diazepam (Valium), 2 MG PO BID PRN for Anxiety/Agitation Furosemide (Lasix), 20 MG PO DAILY PRN for SWELLING Insulin Human Regular (Humulin R), 1 DOSE SQ ACHS PRN for SLIDING SCALE Magnesium Hydroxide (Milk of Magnesia), 30 ML PO DAILY PRN for Constipation Ondansetron Hcl (Zofran), 8 MG PO Q8 PRN for Nausea Oxymetazoline Hcl (Afrin 0.05% Nasal [place]), 1 BTL NA DIRECTED PRN for CONGESTION Polyethylene Glycol 3350 (Miralax), 17 GM PO QDL PRN for Constipation Sennosides-Docusate Sodium (Senokot S), 1 TAB PO QDL PRN for Constipation Sodium Phosphate/Biphosphate (Fleet Enema), 1 EA NV DAILY PRN for Constipation Tramadol (Ultram), 50 MG PO Q6H PRN for Pain Review of Systems Constitutional: + fever, + chills, + sweats, No weight loss, No weakness, No fatigue Eyes: No worsening of vision ENT: No sore throat Respiratory: + cough, + sputum, + shortness of breath, + dyspnea on exertion, + dyspnea at rest, No wheezing, No hemoptysis Cardiovascular: + edema, No chest pain, No palpitations Abdomen: No pain, No nausea, No vomiting, No diarrhea, No constipation, No GI bleeding Musculoskeletal: + swelling, No joint pain, No muscle pain, No calf pain Genitourinary - Male: No hematuria, No dysuria, No urinary frequency, No urinary urgency Neurologic: + numbness/tingling (intermittently bilateral LE), No paralysis, No weakness, No vertigo, No balance problems Psychiatric: + anxiety (improved with medications), No depression symptoms, No insomnia Endocrine: No fatigue Hematologic / Lymphatic: No abnormal bleeding/bruising Integumentary: No rash Allergic / Immunologic: No environmental allergies, No seasonal allergies Physical Exam Vital Signs Date Time Temp Pulse Resp B/P (MAP) Pulse Ox O2 Delivery O2 Flow Rate FiO2 02/17/17 05:01 115 18 119/73 88 Non-Rebreather 15.0 02/17/17 05:01 115 19 119/73 93 Non-Rebreather Manual 02/17/17 04:17 38.8 125 20 147/90 87 Non-Rebreather 02/17/17 04:17 88 Non-Rebreather 02/17/17 04:10 128 General Appearance: + mild distress, + obese Head: normocephalic, atraumatic Eyes: normal inspection ENT: hearing grossly normal Neck: supple Respiratory/Chest: no accessory muscle use, + respiratory distress (mild respiratory distress), + decreased breath sounds Cardiovascular: no gallop, no JVD, no murmur, normal peripheral pulses, + tachycardia Abdomen/GI: normal bowel sounds, non tender, soft Extremities/Musculoskelatal: + pertinent finding (+1 pitting edema b/l LE) Neurologic/Psych: 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 automatic II-XII nml as tested, no motor/sensory deficits, alert, normal mood/affect, oriented x 3 Skin: normal color Lymphatic: no adenopathy Diagnostics Laboratory Results Results Past 24 Hours Test 02/17/17 04:19 02/17/17 04:28 02/17/17 04:35 02/17/17 04:44 Range/Units White Blood Count 12.75 4.8-10.8 K/uL Red Blood Count 3.55 4.7-6.1 M/uL Hemoglobin 10.4 14.0-18.0 g/dL Hematocrit 33.5 42-52 % Mean Corpuscular Volume 94.4 80-100 fL Mean Corpuscular Hemoglobin 29.3 25-34 pg Mean Corpuscular Hemoglobin Concent 31.0 32-36 g/dl Platelet Count 282 130-400 K/uL Mean Platelet Volume 9.9 7.4-10.4 fL Neutrophils (%) (Auto) 88.8 % Lymphocytes (%) (Auto) 3.5 % Monocytes (%) (Auto) 6.2 % Eosinophils (%) (Auto) 0.6 % Basophils (%) (Auto) 0.2 % Neutrophils # (Auto) 11.33 1.4-6.5 K/uL Lymphocytes # (Auto) 0.44 1.2-3.4 K/uL Monocytes # (Auto) 0.79 0.11-0.59 K/uL Eosinophils # (Auto) 0.08 0-0.5 K/uL Basophils # (Auto) 0.02 0-0.2 K/uL RDW Standard Deviation 62.0 36.4-46.3 fL RDW Coefficient of Variation 17.9 11.5-14.5 % Immature Granulocyte % (Auto) 0.7 % Immature Granulocyte # (Auto) 0.09 0.00-0.02 K/uL Nucleated RBC Absolute Count (auto) 0.05 0-0 K/uL Nucleated Red Blood Cells % 0.4 % Polychromasia 1+ Tear Drop Cells OCCASIONAL Prothrombin Time 12.0 9.0-12.0 SECONDS Prothromb Time International Ratio 1.1 0.9-1.1 Sodium Level 132 136-145 mmol/L Potassium Level 4.2 3.5-5.1 mmol/L Chloride Level 96 98-107 mmol/L Carbon Dioxide Level 30 21-32 mmol/L Anion Gap 6.0 3-11 mmol/L Blood Urea Nitrogen 19 7-18 mg/dl Creatinine 0.97 0.60-1.40 mg/dl Est Creatinine Clear Calc Drug Dose 131.3 ml/min Estimated GFR () 102.2 Estimated GFR (Non- 88.1 BUN/Creatinine Ratio 19.9 10-20 Random Glucose 106 70-99 mg/dl Calcium Level 9.3 8.5-10.1 mg/dl Magnesium Level 1.7 1.8-2.4 mg/dl Total Bilirubin 0.3 0.2-1 mg/dl Aspartate Amino Transf (AST/SGOT) 61 15-37 U/L Alanine Aminotransferase (ALT/SGPT) 20 12-78 U/L Alkaline Phosphatase 96 45-117 U/L Troponin I < 0.015 0-0.045 ng/ml Pro-B-Type Natriuretic Peptide 247 0-900 pg/ml Total Protein 6.9 6.4-8.2 gm/dl Albumin 2.2 3.4-5.0 gm/dl Globulin 4.7 2.5-4.0 gm/dl Albumin/Globulin Ratio 0.5 0.9-2 Arterial Blood pH 7.48 7.35-7.45 Arterial Blood Partial Pressure CO2 38 35-46 mmHg Arterial Blood Partial Pressure O2 61 80-95 mm/Hg Arterial Blood HCO3 28 19-24 mmol/L Arterial Blood Oxygen Saturation 90.1 90-95 % Arterial Blood Base Excess 4.0 -9-1.8 mEq/L Arterial Blood Gas Delivery 15L Devin Test POS POS Bedside Lactic Acid Venous 1.21 0.90-1.70 mmol/L Microbiology Results 02/17/17 Blood Culture, Received Pending 02/17/17 Blood Culture, Received Pending EKG Sinus tachycardia Possible Left atrial enlargement Impression Assessment and Plan This is a 56 year old male with a PMH of small cell lung CA - has undergone chemo/radiation, recent diagnosis of bilateral PE, insulin dependent DM2, diabetic polyneuropathy presents with fevers and hypoxia from [facility] Acute Hypoxic Respiratory Failure secondary to HCAP patient presents with fevers, hypoxia CXR appears worse than prior currently requiring non-rebreather to achieve an O2 saturation in the low 90s O2 sats are dropping with exertion will check lactic acid, procalcitonin blood cultures pending will start Cefepime, Levaquin and Vancomycin pulmonary consultation for further input Radiation Pneumonitis patient also presented during last admission with likely radiation pneumonitis as per pulmonology, patient to be on prednisone 60mg with a slow taper patient was recently tapered down to 50mg, and his condition worsened will go back to the prednisone 60mg dose and consult pulmonology for further input Bilateral PE patient recently diagnosed with bilateral PE will continue Lovenox injections he takes these in the R LE thigh/buttocks region Insulin Dependent DM2 patient is very specific regarding his insulin therapy he uses NPH 70/30 - was discharged with around 70 units in the AM and 90 units in the PM on his summary from [facility], he was requiring over 100 units BID will try 70 units BID for now, monitor for hypoglycemia, which was an issue during previous admission consulted pharmacy glycemic control DVT ppx Lovenox FULL CODE VTE Prophylaxis VTE Risk Assessment Done? Y/N: Yes Risk Level: High Given or contraindicated: Other Anticoagulation
--- NOTE | 2017-02-17 07:38 | EMERGENCY ROOM VISIT NOTE ---
History Report prepared by Soledad: Selma Vásquez Under the Supervision of: Dr. Binta Valencia D.O. First contact with patient: 04:09 Stated Complaint: SHORTNESS OF BREATH, PNEUMONIA History of Present Illness The patient is a 56 year old male who presents to the Emergency Room with complaints of worsening SOB starting SAND HAULER. The patient presents to the ED by EMS. He did not receive a breathing treatment in route. The patient is currently at [facility] for bilateral PE and pneumonia. He had Xopenex around 0000 which did not help. He was 67% on 5L nasal cannula. He went up to 88% on non rebreather. His temperature was 38.8. The patient states that he had been doing better when he first arrived at [facility]. He was not on oxygen at that point. 5 days ago they started giving him an inhaler which he thinks started to worsen his breathing. He started having nasal cannula oxygen at that time. He was also taken off his steroids. They also started giving him a different antibiotic for the pneumonia. He feels that that caused his breathing to worsen further. He was started back on the steroids today. His fever started today. Yesterday he started getting chills and felt that he was starting to get sick. He denies any vomiting or diarrhea. He currently has chest pain from anxiety. He is on Lovenox currently. He feels that the timing of the injections has been inconsistent. He denies any history of heart problems. He recently had an echo. He has quit smoking. Source of History: patient, nursing staff Onset: SAND HAULER Position: other (global) Quality: other (SOB) Timing: worsening Associated Symptoms: + fevers, + chills, + chest pain, No vomiting, No diarrhea Review of Systems See HPI for pertinent positives & negatives. A total of 10 systems reviewed and were otherwise negative. Past Medical & Surgical Medical Problems: (1) Anxiety (2) Chronic back pain (3) Hypoxia (4) Insulin dependent type 2 diabetes mellitus Surgical Problems: (1) History of back surgery Family History Diabetes mellitus Social History Smoking Status: Former Smoker Alcohol Use: none Marital Status: single Housing Status: lives alone Occupation Status: unemployed Current/Historical Medications Scheduled Aspirin (Aspirin Ec), 325 MG PO QAM Biotin W/ Vitamins C & E (Hair/Skin/Nails 1250-7.5-7.5 Mcg-mg-Unt), 1 TAB PO DAILY Cholecalciferol (Vitamin D), 5,000 UNITS PO DAILY Docusate Sodium (Docusate Sodium), 100 MG PO BID Enoxaparin (Lovenox), 120 MG SQ Q12H Insulin Isophan/Regular (Humulin 70/30), 105 UNITS SC BIDM Levalbuterol Hcl (Levalbuterol), 1 AMP INH Q6H Levofloxacin (Levaquin), 750 MG PO DAILY Methadone Hcl (Dolophine), 10 MG PO Q6H Prednisone (Prednisone), 50 MG PO DAILY Vitamin E (E-400), 400 MG PO TIDM Zolpidem Tartrate (Ambien), 10 MG PO HS Scheduled PRN Bisacodyl (Bisacodyl), 10 MG RE DAILY PRN for Constipation Diazepam (Valium), 2 MG PO BID PRN for Anxiety/Agitation Furosemide (Lasix), 20 MG PO DAILY PRN for SWELLING Insulin Human Regular (Humulin R), 1 DOSE SQ ACHS PRN for SLIDING SCALE Magnesium Hydroxide (Milk of Magnesia), 30 ML PO DAILY PRN for Constipation Ondansetron Hcl (Zofran), 8 MG PO Q8 PRN for Nausea Oxymetazoline Hcl (Afrin 0.05% Nasal [place]), 1 BTL NA DIRECTED PRN for CONGESTION Polyethylene Glycol 3350 (Miralax), 17 GM PO QDL PRN for Constipation Sennosides-Docusate Sodium (Senokot S), 1 TAB PO QDL PRN for Constipation Sodium Phosphate/Biphosphate (Fleet Enema), 1 EA NH DAILY PRN for Constipation Tramadol (Ultram), 50 MG PO Q6H PRN for Pain Allergies Coded Allergies: Amoxicillin (Verified Allergy, Intermediate, sob, 02/17/17) PER CONVERSATION WITH ANSELMO AQUINO PA-C - SHE SPOKE WITH PATIENT WHO STATES THAT THIS IS NOT A TRUE ALLERGY HE HAS TOLERATED PENCILLINS IN THE PAST. TOLERATES ROCEPHIN X 5 DOSES AN OUTPATIENT. Atorvastatin (Verified Allergy, Intermediate, diarrhea, 02/17/17) Acetaminophen (Verified Allergy, Unknown, PT STATES "IT INTENSIFIES EFFECT ", 02/17/17) Clindamycin (Verified Allergy, Unknown, SHORTNESS OF BREATH, 02/17/17) Escitalopram (Verified Allergy, Unknown, GI UPSET, 02/17/17) Gabapentin (Verified Allergy, Unknown, CONSTIPATION, 02/17/17) Insulin Aspart (Verified Allergy, Unknown, ALLERGIC TO PRESERVATIVES IN NOVOLOG - OK WITH REGULAR/NPH, 02/17/17) Morphine (Verified Allergy, Unknown, DID NOT TOLERATE PER PT, 02/17/17) Propoxyphene (Verified Allergy, Unknown, "DID CRAZY THINGS", 02/17/17) Sitagliptin (Verified Allergy, Unknown, UNKNOWN RXN, 02/17/17) Adhesives (Verified Adverse Reaction, Unknown, "rips his skin off", ) Dextromethorphan (Verified Adverse Reaction, Unknown, HARD TO BREATHE?, ) Guaifenesin (Verified Adverse Reaction, Unknown, HARD TO BREATHE?, ) Metformin (Verified Adverse Reaction, Unknown, PT STATES "DID NOT WORK", 02/17/17) Physical Exam Vital Signs Date Time Temp Pulse Resp B/P (MAP) Pulse Ox O2 Delivery O2 Flow Rate FiO2 02/17/17 06:31 106 18 109/70 91 Non-Rebreather 02/17/17 05:01 115 18 119/73 88 Non-Rebreather 15.0 02/17/17 05:01 115 19 119/73 93 Non-Rebreather Manual 02/17/17 04:17 38.8 125 20 147/90 87 Non-Rebreather 02/17/17 04:17 88 Non-Rebreather 02/17/17 04:10 128 Physical Exam GENERAL: pale, nonrebreather in place, sats of 78, alert, well nourished, non- toxic EYE EXAM: normal conjunctiva, PERRL and EOM's grossly intact OROPHARYNX: no exudate, no erythema, lips, buccal mucosa, and tongue normal and mucous membranes are slightly dry NECK: supple, no nuchal rigidity, no adenopathy, non-tender LUNGS: Diminished bilaterally. Slight rales bilaterally. HEART: tachycardic but regular. no murmurs, S1 normal and S2 normal ABDOMEN: abdomen soft, non-tender, normo-active bowel sounds, no masses, no rebound or guarding. BACK: Back is symmetrical on inspection and there is no deformity, no midline tenderness, no CVA tenderness. SKIN: no rashes and no bruising UPPER EXTREMITIES: upper extremities are grossly normal. LOWER EXTREMITIES: Trace lower extremity edema bilaterally. Normal pulses. Normal cap refill. NEURO EXAM: Normal sensorium, cranial nerves II-XII grossly intact, normal speech, no gross weakness of arms, no gross weakness of legs. Medical Decision & Procedures ER Provider Diagnostic Interpretation: X-ray: I interpreted the following studies. Chest: A two view study of the chest was reviewed and showed bilateral interstitial markings, worse compared to prior. No cardiomegaly. No obvious effusion. Laboratory Results 02/17/17 04:28 Red Blood Count 3.55, Mean Corpuscular Volume 94.4, Mean Corpuscular Hemoglobin 29.3, Mean Corpuscular Hemoglobin Concent 31.0, Mean Platelet Volume 9.9, Neutrophils (%) (Auto) 88.8, Lymphocytes (%) (Auto) 3.5, Monocytes (%) (Auto) 6.2, Eosinophils (%) (Auto) 0.6, Basophils (%) (Auto) 0.2, Neutrophils # (Auto) 11.33, Lymphocytes # (Auto) 0.44, Monocytes # (Auto) 0.79, Eosinophils # (Auto) 0.08, Basophils # (Auto) 0.02 02/17/17 04:28 Test 02/17/17 04:28 02/17/17 04:35 02/17/17 04:44 White Blood Count 12.75 K/uL (4.8-10.8) Red Blood Count 3.55 M/uL (4.7-6.1) Hemoglobin 10.4 g/dL (14.0-18.0) Hematocrit 33.5 % (42-52) Mean Corpuscular Volume 94.4 fL (80-100) Mean Corpuscular Hemoglobin 29.3 pg (25-34) Mean Corpuscular Hemoglobin Concent 31.0 g/dl (32-36) Platelet Count 282 K/uL (130-400) Mean Platelet Volume 9.9 fL (7.4-10.4) Neutrophils (%) (Auto) 88.8 % Lymphocytes (%) (Auto) 3.5 % Monocytes (%) (Auto) 6.2 % Eosinophils (%) (Auto) 0.6 % Basophils (%) (Auto) 0.2 % Neutrophils # (Auto) 11.33 K/uL (1.4-6.5) Lymphocytes # (Auto) 0.44 K/uL (1.2-3.4) Monocytes # (Auto) 0.79 K/uL (0.11-0.59) Eosinophils # (Auto) 0.08 K/uL (0-0.5) Basophils # (Auto) 0.02 K/uL (0-0.2) RDW Standard Deviation 62.0 fL (36.4-46.3) RDW Coefficient of Variation 17.9 % (11.5-14.5) Immature Granulocyte % (Auto) 0.7 % Immature Granulocyte # (Auto) 0.09 K/uL (0.00-0.02) Nucleated RBC Absolute Count (auto) 0.05 K/uL (0-0) Nucleated Red Blood Cells % 0.4 % Polychromasia 1+ Tear Drop Cells OCCASIONAL Prothrombin Time 12.0 SECONDS (9.0-12.0) Prothromb Time International Ratio 1.1 (0.9-1.1) Anion Gap 6.0 mmol/L (3-11) Est Creatinine Clear Calc Drug Dose 131.3 ml/min Estimated GFR () 102.2 Estimated GFR (Non- 88.1 BUN/Creatinine Ratio 19.9 (10-20) Lactic Acid Level 1.7 mmol/L (0.4-2.0) Calcium Level 9.3 mg/dl (8.5-10.1) Magnesium Level 1.7 mg/dl (1.8-2.4) Total Bilirubin 0.3 mg/dl (0.2-1) Aspartate Amino Transf (AST/SGOT) 61 U/L (15-37) Alanine Aminotransferase (ALT/SGPT) 20 U/L (12-78) Alkaline Phosphatase 96 U/L (45-117) Troponin I < 0.015 ng/ml (0-0.045) Pro-B-Type Natriuretic Peptide 247 pg/ml (0-900) Total Protein 6.9 gm/dl (6.4-8.2) Albumin 2.2 gm/dl (3.4-5.0) Globulin 4.7 gm/dl (2.5-4.0) Albumin/Globulin Ratio 0.5 (0.9-2) Arterial Blood pH 7.48 (7.35-7.45) Arterial Blood Partial Pressure CO2 38 mmHg (35-46) Arterial Blood Partial Pressure O2 61 mm/Hg (80-95) Arterial Blood HCO3 28 mmol/L (19-24) Arterial Blood Oxygen Saturation 90.1 % (90-95) Arterial Blood Base Excess 4.0 mEq/L (-9-1.8) Arterial Blood Gas Delivery 15L Devin Test POS (POS) Procalcitonin 0.21 ng/ml (0-0.5) Bedside Lactic Acid Venous 1.21 mmol/L (0.90-1.70) Laboratory results per my review. Medications Administered Medications (Trade) Dose Ordered Sig/Prince Route Start Time Stop Time Status Last Admin Dose Admin Aspirin/Aluminum/ Magnesium/Ca Carb (Ascriptin Tab) 325 mg NOW STAT PO 02/17/17 04:54 02/17/17 04:55 DC 02/17/17 05:13 325 MG Vancomycin HCl 2000 mg/Sodium Chloride 540 ml @ 200 mls/hr ONE STAT IV 02/17/17 05:16 02/17/17 07:57 DC 02/17/17 06:04 200 MLS/HR Azithromycin (Zithromax Tab) 500 mg NOW ONCE PO 02/17/17 05:30 02/17/17 05:31 DC 02/17/17 06:04 500 MG Sodium Chloride 1,000 ml @ 999 mls/hr Q1H1M STAT IV 02/17/17 05:40 02/17/17 06:40 DC 02/17/17 06:14 999 MLS/HR Cefepime HCl 2000 mg/Syringe 20 ml @ 5 mls/min TODAY@0516 IV 02/17/17 05:16 02/17/17 06:00 DC 02/17/17 06:04 5 MLS/MIN Diazepam (Valium Tab) 2 mg BID PRN PO 02/17/17 06:30 03/19/17 06:29 Future Hold 02/17/17 11:52 2 MG Tramadol HCl (Ultram Tab) 50 mg Q6H PRN PO 02/17/17 06:30 02/17/17 15:15 DC 02/17/17 07:17 50 MG ECG Indication: SOB/dyspnea Rate (beats per minute): 120 Rhythm: sinus tachycardia Findings: no acute ischemic change, other (normal axis, normal intervals) ED Course 0409: The patient was evaluated in room B1. A complete history and physical exam was performed. 0432: I reevaluated the patient. His oxygen saturations are at 88 on 15L/min. He is doing better. 0450: I reevaluated the patient. He is stable. 0454: Ascriptin Tab 325 mg PO. 0516: Cefepime HCl 2000 mg/Syringe 20 ml @ 5 mls/min IV, Vancomycin HCl 2000 mg/ Sodium Chloride 540 ml @ 200 mls/hr IV. 0530: Azithromycin 500 mg PO. 0538: Upon reevaluation, the patient is stable. I discussed the findings and the treatment plan with the patient. He expresses agreement and understanding. He will be evaluated for further management. 0540: NSS 1000 ml @ 999 mls/hr IV. 0544: I reviewed the patient's case with Dr. Maxwell, [facility] hospitalist. He will evaluate the patient for further management. Medical Decision Differential diagnoses includes but is not limited to pneumonia, bronchitis, COPD/Asthma exacerbation, pneumothorax, pulmonary embolism, congestive heart failure, acute coronary syndrome Pt in distress here, offered BiPAP initially and he declined. Patient that she felt better with nonrebreather place and oxygen level slowly came up to the low 90s. With any conversation oxygen levels drop, upon removal of the nonrebreather oxygen levels immediately drop. Patient's tachycardia improved following improved work of breathing and oxygenation, as well as IV fluids and fever control. Patient's chest x-ray appeared worse than prior despite antibiotics and steroids and breathing treatments and rehabilitation. Patient has been getting Lovenox shots for his PEs. Denies missing any doses. Culture sent on the patient, lactic acid is not elevated, no significant leukocytosis, however given recent hospitalization and worsening chest x-ray as well as worsening symptoms today with new-onset fever, patient triple covered for possible healthcare associated pneumonia. No evidence of congestive heart failure based on BNP and patient with recent echo with reassuring EF. The labs reassuring here, patient admitted to the hospital for continued monitoring and evaluation. Blood pressure stable throughout, patient do not require pressors. Patient able to speak in full sentences, mentating well throughout. Medication Reconcilliation Current Medication List: was personally reviewed by me Blood Pressure Screening Patient's blood pressure: Normal blood pressure Blood pressure disposition: Did not require urgent referral Consults Time Called: 0537 Consulting Physician: Dr. Maxwell [facility] hospitalist Returned Call: [phone] I reviewed the patient's case with him. He will evaluate the patient for further management. Impression Primary Impression: Sepsis Additional Impressions: Healthcare-associated pneumonia Hypoxia Pulmonary emboli Critical Care I have personally spent 50 minutes of critical care time in the direct management of this patient. This includes bedside care, interpretation of diagnostic studies, and testing, discussion with consultants, patient, and family members, and other required patient management activities. This 50 minutes is in excess of all separately billable procedures. Scribe Attestation The scribe's documentation has been prepared under my direction and personally reviewed by me in its entirety. I confirm that the note above accurately reflects all work, treatment, procedures, and medical decision making performed by me. Departure Information Dispostion Being Evaluated By Hospitalist Referrals Efraín Zamudio III, M.D. (PCP) Problem Qualifiers Primary Impression: Sepsis Sepsis type: sepsis due to unspecified organism Qualified Codes: A41.9 - Sepsis, unspecified organism Additional Impressions: Pulmonary emboli Pulmonary embolism type: other Chronicity: unspecified Acute cor pulmonale presence: without acute cor pulmonale Qualified Codes: I26.99 - Other pulmonary embolism without acute cor pulmonale
[2017-02-17] MEDS ORDERED: INSULIN HUMAN 70% NPH/30% REGULAR SC SCH (07:56)
[2017-02-17] MEDS ORDERED: PHARMACY GLYCEMIC MGMT CONSULT PRN (08:09)
[2017-02-17] MEDS ORDERED: VANCOMYCIN CONSULT ACTIVE PRN (08:30)
[2017-02-17] MEDS: MAGNESIUM SULFATE 1GM / D5W 1 GM in PREMIXED IN D5W 100 ML IV SCH ×2 (08:43→11:16)
--- NOTE | 2017-02-17 08:43 | DIAGNOSTIC IMAGING REPORT ---
CHEST 1 VW FRONT-NOT PORTABLE CLINICAL HISTORY: Shortness of breath and fever. Recent pneumonia. History of lung cancer. COMPARISON STUDY: Chest CT January 30, 2017 and chest radiograph February 04, 2017. FINDINGS: There is no pneumothorax. No pleural effusion is visualized. Cardiomediastinal silhouette is stable. Dense left lung airspace opacity persists. Minimal improvement is noted within the left lung since prior exam. Right lung airspace opacity has significantly progressed. IMPRESSION: Extensive bilateral airspace opacities which favor bilateral pneumonia. Slight improvement in dense left lung consolidation since prior exam with significant progression of right lung airspace opacity. Radiographic follow-up is recommended. Electronically signed by: Thomas Hahn M.D. 02/17/2017 8:42 AM Dictated Date/Time: 02/17/2017 8:39 AM
[2017-02-17] MEDS: CHOLECALCIFEROL 1000 INTER.UNIT TAB PO SCH (08:45)
[2017-02-17] MEDS: ENOXAPARIN 120 MG/0.8 ML SYR SQ SCH ×2 (08:46→20:25)
[2017-02-17] MEDS: DOCUSATE SODIUM 100 MG CAP PO SCH ×2 (08:55→20:23)
[2017-02-17] MEDS ORDERED: VITAMINS C PO SCH (09:00)
[2017-02-17] MEDS ORDERED: INSULIN HUMAN NPH SC SCH (09:00)
[2017-02-17] MEDS ORDERED: VANCOMYCIN INJ 2,100 MG in SODIUM CHLORIDE 0.9% 250ML 250 ML IV SCH (09:00)
[2017-02-17] MEDS ORDERED: [UNRECOGNIZED DRUG - OTHER] PO SCH (09:00)
[2017-02-17] MEDS ORDERED: BIOTIN PO SCH (09:00)
[2017-02-17] MEDS: INSULIN HUMAN REGULAR SC SCH ×2 (09:15→11:00)
[2017-02-17] MEDS: LEVOFLOXACIN / D5W 750 MG in PREMIXED IN D5W 150 ML IV SCH (09:57)
--- NOTE | 2017-02-17 10:13 | Progress Note ---
Progress Note Date of Service Feb 17, 2017. Progress Note Admitted this morning with worsening cough and hypoxia. Unable to maintain sats on 15 L NRFM or high flow O2. Case discussed with Pulmonary Medicine. Transfer to ICU for further evaluation and management recommended. Case discussed with CCM. .
[2017-02-17] MEDS: METHADONE HCL 10 MG TAB PO SCH ×2 (11:52→17:46)
[2017-02-17] MEDS: DIAZEPAM 2MG TAB PO PRN (11:52)
--- NOTE | 2017-02-17 11:52 | Pharmacy Progress Note ---
Pharmacy Antibiotic Consult Date of Service: Feb 17, 2017. Pharmacy Dosing Scope Pharmacy is consulted to initiate vancomycin IV dosing therapy, order appropriate labs and adjust drug dose/frequency. Subjective The patient is a 56 year old male admitted on Feb 17, 2017 at 06:31. Objective Height (Feet): 6 Height (Inches): 3.00 Weight (Kilograms): 137.040 Lab Results (24hrs): Test 02/17/17 04:28 02/17/17 04:35 02/17/17 04:44 02/17/17 09:02 White Blood Count 12.75 K/uL (4.8-10.8) Red Blood Count 3.55 M/uL (4.7-6.1) Hemoglobin 10.4 g/dL (14.0-18.0) Hematocrit 33.5 % (42-52) Mean Corpuscular Volume 94.4 fL (80-100) Mean Corpuscular Hemoglobin 29.3 pg (25-34) Mean Corpuscular Hemoglobin Concent 31.0 g/dl (32-36) Platelet Count 282 K/uL (130-400) Mean Platelet Volume 9.9 fL (7.4-10.4) Neutrophils (%) (Auto) 88.8 % Lymphocytes (%) (Auto) 3.5 % Monocytes (%) (Auto) 6.2 % Eosinophils (%) (Auto) 0.6 % Basophils (%) (Auto) 0.2 % Neutrophils # (Auto) 11.33 K/uL (1.4-6.5) Lymphocytes # (Auto) 0.44 K/uL (1.2-3.4) Monocytes # (Auto) 0.79 K/uL (0.11-0.59) Eosinophils # (Auto) 0.08 K/uL (0-0.5) Basophils # (Auto) 0.02 K/uL (0-0.2) RDW Standard Deviation 62.0 fL (36.4-46.3) RDW Coefficient of Variation 17.9 % (11.5-14.5) Immature Granulocyte % (Auto) 0.7 % Immature Granulocyte # (Auto) 0.09 K/uL (0.00-0.02) Nucleated RBC Absolute Count (auto) 0.05 K/uL (0-0) Nucleated Red Blood Cells % 0.4 % Polychromasia 1+ Tear Drop Cells OCCASIONAL Prothrombin Time 12.0 SECONDS (9.0-12.0) Prothromb Time International Ratio 1.1 (0.9-1.1) Sodium Level 132 mmol/L (136-145) Potassium Level 4.2 mmol/L (3.5-5.1) Chloride Level 96 mmol/L (98-107) Carbon Dioxide Level 30 mmol/L (21-32) Anion Gap 6.0 mmol/L (3-11) Blood Urea Nitrogen 19 mg/dl (7-18) Creatinine 0.97 mg/dl (0.60-1.40) Est Creatinine Clear Calc Drug Dose 131.3 ml/min Estimated GFR () 102.2 Estimated GFR (Non- 88.1 BUN/Creatinine Ratio 19.9 (10-20) Random Glucose 106 mg/dl (70-99) Lactic Acid Level 1.7 mmol/L (0.4-2.0) Calcium Level 9.3 mg/dl (8.5-10.1) Magnesium Level 1.7 mg/dl (1.8-2.4) Total Bilirubin 0.3 mg/dl (0.2-1) Aspartate Amino Transf (AST/SGOT) 61 U/L (15-37) Alanine Aminotransferase (ALT/SGPT) 20 U/L (12-78) Alkaline Phosphatase 96 U/L (45-117) Troponin I < 0.015 ng/ml (0-0.045) Pro-B-Type Natriuretic Peptide 247 pg/ml (0-900) Total Protein 6.9 gm/dl (6.4-8.2) Albumin 2.2 gm/dl (3.4-5.0) Globulin 4.7 gm/dl (2.5-4.0) Albumin/Globulin Ratio 0.5 (0.9-2) Arterial Blood pH 7.48 (7.35-7.45) Arterial Blood Partial Pressure CO2 38 mmHg (35-46) Arterial Blood Partial Pressure O2 61 mm/Hg (80-95) Arterial Blood HCO3 28 mmol/L (19-24) Arterial Blood Oxygen Saturation 90.1 % (90-95) Arterial Blood Base Excess 4.0 mEq/L (-9-1.8) Arterial Blood Gas Delivery 15L Devin Test POS (POS) Procalcitonin 0.21 ng/ml (0-0.5) Bedside Lactic Acid Venous 1.21 mmol/L (0.90-1.70) Bedside Glucose 208 mg/dl (70-99) Test 02/17/17 10:15 02/17/17 11:07 Urine Color YELLOW Urine Appearance CLEAR (CLEAR) Urine pH 6.0 (4.5-7.5) Urine Specific [place] 1.026 (1.000-1.030) Urine Protein 1+ (NEG) Urine Glucose (UA) NEG (NEG) Urine Ketones NEG (NEG) Urine Occult Blood NEG (NEG) Urine Nitrite NEG (NEG) Urine Bilirubin NEG (NEG) Urine Urobilinogen NEG (NEG) Urine Leukocyte Esterase NEG (NEG) Urine WBC (Auto) 1-5 /hpf (0-5) Urine RBC (Auto) 0-4 /hpf (0-4) Urine Hyaline Casts (Auto) 1-5 /lpf (0-5) Urine Epithelial Cells (Auto) 10-20 /lpf (0-5) Urine Bacteria (Auto) NEG (NEG) Bedside Glucose 173 mg/dl (70-99) Assessment & Plan Assessment * 56 yo M with hypoxic respiratory failure/sepsis 2nd HAP. Was transferred to ICU shortly after admit 2nd inability to maintain O2 saturations. * Patient is febrile and tachycardic with O2 sats less than 90% (on non- rebreather). WBC elevated. * On cefepime, levofloxacin, and vancomycin * Recent admission at [facility] January 2017 for PE. * Hx small cell lung CA (previous chemo/radiation), radiation pneumonitis. * SCr at/near baseline * Vancomycin * Nasal MRSA negative, but may be falsely negative 2nd obstructive pathology due to SCLC. Spoke w Dr. Almeida who would like to continue vancomycin for now. Patient producing sputum - plans to culture and de-escalate antibiotic therapy based on results. * Goal vancomycin trough 15-20 mcg/mL * Will dose vancomycin aggressively 2nd severity of illness * Will obtain early trough. This will be prior to steady state. Anticipate further accumulation once steady state reached and from BMI > 30 kg/m2 Plan * Vancomycin 2250 mg IV q10h * Trough 02/18 @ 0930 Pharmacy will continue to follow and will adjust dose/frequency as necessary. Thank you
--- NOTE | 2017-02-17 12:22 | Pulmonary Consultation ---
History General Date of Service: Feb 17, 2017. Stated Complaint: Hypoxia HPI The patient is a 56 year old male who presents to [facility] with complaints of Hypoxia. The patient's primary care provider is [facility]. 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 He was recently admitted for hypoxic respiratory failure likely secondary to radiation pneumonitis and bilateral pulmonary emboli. He was recently discharged to [facility] on 02/11/2017. Patient states that he 's had episodes of increased cough with thick purulent sputum that was yellowish to greenish in color. He denies any hemoptysis. He also states that he had fevers and chills and generalized malaise and fatigue. He denies any chest pains or palpitations. He continues to have shortness of breath and dyspnea with minimal exertion. He states that he's been compliant with his medications. It has been on tapering dose of steroid and 50 mg of prednisone. At [facility] he was noted to be hypoxic on room air with saturations in the mid to upper 80s. He was placed on a nonrebreather mask with minimal improvement to the upper 80s. EMS was subsequently called and he was brought to the ER for further evaluation. In the ER initial vital signs were temperature 38.8, pulse 125, respiratory rate is 20, blood pressure 147/98 saturating 87% on nonrebreather mask. Blood gas in the ER showed pH 7.48, PCO2 38, PO2 of 61, bicarbonate 28 saturating 90% on 15 L. Laboratory data significant for sodium of 132, chloride 96, BUN of 19, creatinine 0.97, glucose 106, magnesium 1.7, AST 61. Troponins were less than 0.015, proBNP 247, albumin 2.2. Lactic acid 1.7. Blood cultures sent and pending. Chest x-ray showed extensive bilateral airspace opacities, likely representing bilateral pneumonia. There was slight improvement in dense left lung consolidation from prior was significant progression of right lung airspace opacity. He was started on vancomycin, cefepime and Levaquin for possible hospital- acquired pneumonia. He also received 1 dose of azithromycin. He was given 1 L normal saline bolus. He also received Xopenex nebulizer. He refused BiPAP at that time and was placed on 15 L Oxymizer mask with O2 saturations between 88-92%. At the time of my evaluation, patient on high flow nasal cannula of 40% FiO2 with 40 L/m, saturating 85%. I spoke to patient about his goals of care and he stated that he would like everything to be done at this time. I spoke to Dr. Almeida to arrange for patient to be transferred to ICU for worsening acute hypoxic respiratory failure. I have also discussed the case with Dr. Das. Historian: patient Onset: last week Severity: moderate Complaint Status: persistent Review of Systems Constitutional: + fever, + chills, + sweats, No weight loss, No weakness, No fatigue Eyes: No worsening of vision ENT: No sore throat Respiratory: + cough, + sputum, + shortness of breath, + dyspnea on exertion, + dyspnea at rest, No wheezing, No hemoptysis Cardiovascular: + edema, No chest pain, No palpitations Abdomen: No pain, No nausea, No vomiting, No diarrhea, No constipation, No GI bleeding Musculoskeletal: + swelling, No joint pain, No muscle pain, No calf pain Genitourinary - Male: No hematuria, No dysuria, No urinary frequency, No urinary urgency Neurologic: + numbness/tingling (intermittently bilateral LE), No paralysis, No weakness, No vertigo, No balance problems Psychiatric: + anxiety (improved with medications), No depression symptoms, No insomnia Endocrine: No fatigue Hematologic / Lymphatic: No abnormal bleeding/bruising Integumentary: No rash Allergic / Immunologic: No environmental allergies, No seasonal allergies Constitutional: reports: as stated in HPI Eyes: reports: as stated in HPI ENT: reports: as stated in HPI Cardiovascular: reports: as stated in HPI Respiratory: reports: as stated in HPI Gastrointestinal: reports: as stated in HPI Genitourinary - Male: reports: as stated in HPI Musculoskeletal: reports: as stated in HPI Integumentary: reports: as stated in HPI Neurologic: reports: as stated in HPI Psychiatric: reports: as stated in HPI Endocrine: as stated in HPI Hematologic / Lymphatic: as stated in HPI All Other Symptoms All Other Systems: Reviewed and Negative Family History Diabetes mellitus Social History Hx Tobacco Use In Past Year?: Yes (CIGARETTES 1PP/DAY FOR 40 YEARS QUIT 08/2016) Smoking Status: Former Smoker Marital status: single Occupational Status: unemployed History of MDRO History of MDRO: No Allergies Coded Allergies: Amoxicillin (Verified Allergy, Intermediate, sob, 02/17/17) PER CONVERSATION WITH ANSELMO AQUINO PA-C - SHE SPOKE WITH PATIENT WHO STATES THAT THIS IS NOT A TRUE ALLERGY HE HAS TOLERATED PENCILLINS IN THE PAST. TOLERATES ROCEPHIN X 5 DOSES AN OUTPATIENT. Atorvastatin (Verified Allergy, Intermediate, diarrhea, 02/17/17) Acetaminophen (Verified Allergy, Unknown, PT STATES "IT INTENSIFIES EFFECT ", 02/17/17) Clindamycin (Verified Allergy, Unknown, SHORTNESS OF BREATH, 02/17/17) Escitalopram (Verified Allergy, Unknown, GI UPSET, 02/17/17) Gabapentin (Verified Allergy, Unknown, CONSTIPATION, 02/17/17) Insulin Aspart (Verified Allergy, Unknown, ALLERGIC TO PRESERVATIVES IN NOVOLOG - OK WITH REGULAR/NPH, 02/17/17) Morphine (Verified Allergy, Unknown, DID NOT TOLERATE PER PT, 02/17/17) Propoxyphene (Verified Allergy, Unknown, "DID CRAZY THINGS", 02/17/17) Sitagliptin (Verified Allergy, Unknown, UNKNOWN RXN, 02/17/17) Adhesives (Verified Adverse Reaction, Unknown, "rips his skin off", ) Dextromethorphan (Verified Adverse Reaction, Unknown, HARD TO BREATHE?, ) Guaifenesin (Verified Adverse Reaction, Unknown, HARD TO BREATHE?, ) Metformin (Verified Adverse Reaction, Unknown, PT STATES "DID NOT WORK", 02/17/17) Current Medications Reported Home Medications Medications Dose Route/Sig Max Daily Dose Days Date Category Dose Instructions Senokot S (Sennosides-Docusate Sodium) 1 Tab Tab 1 Tab PO QDL PRN 02/17/17 Reported Fleet Enema (Sodium Phosphate/Biphosphate) [place] 1 Ea MT DAILY PRN 02/17/17 Reported Bisacodyl 10 Mg Sup 10 Mg RE DAILY PRN 02/17/17 Reported Milk of Magnesia (Magnesium Hydroxide) 30 Ml Susp 30 Ml PO DAILY PRN 02/17/17 Reported Docusate Sodium 100 Mg Cap 100 Mg PO BID 7 02/17/17 Reported Levaquin (Levofloxacin) 250 Mg Tab 750 Mg PO DAILY 10 02/17/17 Reported STARTED 02/10/17 Levalbuterol (Levalbuterol Hcl) 1.25 Mg/0.5 Ml Neb 1 Amp INH Q6H 02/17/17 Reported Humulin 70/30 (Insulin Human Isoph/Insulin Regular) Susp 105 Units SC BIDM 02/17/17 Reported Hair/Skin/Nails 1250-7.5-7.5 Mcg-mg-Unt (Biotin W/ Vitamins C & E) 1 Chw Chw 1 Tab PO DAILY 02/17/17 Reported Afrin 0.05% Nasal [place] (Oxymetazoline Hcl) 1 Btl [place] 1 Btl NA DIRECTED PRN 02/17/17 Reported Miralax (Polyethylene Glycol 3350) 1 Pow Pow 17 Gm PO QDL PRN 02/17/17 Reported Prednisone 10 Mg Tab 50 Mg PO DAILY 02/17/17 Reported TAPER DOSE 50 MG-START 02/14/17, STOP 02/20/17 40 MG-START 02/21/17, STOP 02/27/17 30 MG-START 02/28/17, STOP 03/06/17 20 MG-START 03/07/17, STOP 03/13/17 10 MG-START 03/14/17, STOP 03/20/17 Valium (Diazepam) 2 Mg Tab 2 Mg PO BID PRN 02/17/17 Reported Dolophine (Methadone HCl) 10 Mg Tab 10 Mg PO Q6H 02/17/17 Reported Lovenox (Enoxaparin Sodium) 120 Mg/0.8 Ml Inj 120 Mg SQ Q12H 02/17/17 Reported Ultram (Tramadol HCl) 50 Mg Tab 50 Mg PO Q6H PRN 01/30/17 Reported Zofran (Ondansetron HCl) 8 Mg Tab 8 Mg PO Q8 PRN 01/19/17 Reported Vitamin D (Cholecalciferol) 5,000 Unit Tab 5,000 Units PO DAILY 01/19/17 Reported Aspirin Ec (Aspirin) 325 Mg Tab 325 Mg PO QAM 10/10/16 Reported E-400 (Vitamin E) 400 Unit Cap 400 Mg PO TIDM 09/29/16 Reported Ambien (Zolpidem Tartrate) 10 Mg Tab 10 Mg PO HS 09/29/16 Reported Humulin R (Insulin Human Regular) 1 Ea Inj 1 Dose SQ ACHS PRN 09/29/16 Reported Lasix (Furosemide) 20 Mg Tab 20 Mg PO DAILY PRN 09/29/16 Reported Physical Physical Exam Vital Signs: Date Time Temp Pulse Resp B/P (MAP) Pulse Ox O2 Delivery O2 Flow Rate FiO2 02/17/17 07:56 37.0 117 24 123/71 88 Non-Rebreather 15.0 02/17/17 07:09 37.4 107 19 111/68 92 Non-Rebreather 15.0 02/17/17 06:31 106 18 109/70 91 Non-Rebreather 02/17/17 05:01 115 18 119/73 88 Non-Rebreather 15.0 02/17/17 05:01 115 19 119/73 93 Non-Rebreather Manual 02/17/17 04:17 38.8 125 20 147/90 87 Non-Rebreather 02/17/17 04:17 88 Non-Rebreather 02/17/17 04:10 128 General Appearance: moderate distress, obese Head: NORMOCEPHALIC, ATRAUMATIC Eyes: PERRLA, NO DISCHARGE, EOMI, SCLERAE NORMAL ENT: NORMAL MOUTH EXAM, NORMAL THROAT EXAM Neck: NORMAL RANGE OF MOTION, NO TENDERNESS, TRACHEA MIDLINE, NO STRIDOR, SUPPLE Respiratory: accessory muscle use, respiratory distress Cardiovasular: REGULAR RATE/RHYTHM Abdomen: NON TENDER, NORMAL BOWEL SOUNDS, NO REBOUND Back: NORMAL INSPECTION, NO MIDLINE TENDERNESS Lower Extremities: NO EDEMA, NO DEFORMITY, NORMAL ROM Pulses: dorsalis pedis (R) (2+), dorsalis pedis (L) (2+) Neuro: ALERT, ORIENTED x 3, NORMAL MOTOR EXAM, NORMAL SENSATION, NORMAL MEMORY Psychiatric: NORMAL AFFECT, NO SUICIDAL IDEATION, CONTRACTS FOR SAFETY Diagnostics Labs Results Past 24 Hours Test 02/17/17 04:28 02/17/17 04:35 02/17/17 04:44 02/17/17 06:17 Range/Units White Blood Count 12.75 4.8-10.8 K/uL Red Blood Count 3.55 4.7-6.1 M/uL Hemoglobin 10.4 14.0-18.0 g/dL Hematocrit 33.5 42-52 % Mean Corpuscular Volume 94.4 80-100 fL Mean Corpuscular Hemoglobin 29.3 25-34 pg Mean Corpuscular Hemoglobin Concent 31.0 32-36 g/dl Platelet Count 282 130-400 K/uL Mean Platelet Volume 9.9 7.4-10.4 fL Neutrophils (%) (Auto) 88.8 % Lymphocytes (%) (Auto) 3.5 % Monocytes (%) (Auto) 6.2 % Eosinophils (%) (Auto) 0.6 % Basophils (%) (Auto) 0.2 % Neutrophils # (Auto) 11.33 1.4-6.5 K/uL Lymphocytes # (Auto) 0.44 1.2-3.4 K/uL Monocytes # (Auto) 0.79 0.11-0.59 K/uL Eosinophils # (Auto) 0.08 0-0.5 K/uL Basophils # (Auto) 0.02 0-0.2 K/uL RDW Standard Deviation 62.0 36.4-46.3 fL RDW Coefficient of Variation 17.9 11.5-14.5 % Immature Granulocyte % (Auto) 0.7 % Immature Granulocyte # (Auto) 0.09 0.00-0.02 K/uL Nucleated RBC Absolute Count (auto) 0.05 0-0 K/uL Nucleated Red Blood Cells % 0.4 % Polychromasia 1+ Tear Drop Cells OCCASIONAL Prothrombin Time 12.0 9.0-12.0 SECONDS Prothromb Time International Ratio 1.1 0.9-1.1 Sodium Level 132 136-145 mmol/L Potassium Level 4.2 3.5-5.1 mmol/L Chloride Level 96 98-107 mmol/L Carbon Dioxide Level 30 21-32 mmol/L Anion Gap 6.0 3-11 mmol/L Blood Urea Nitrogen 19 7-18 mg/dl Creatinine 0.97 0.60-1.40 mg/dl Est Creatinine Clear Calc Drug Dose 131.3 ml/min Estimated GFR () 102.2 Estimated GFR (Non- 88.1 BUN/Creatinine Ratio 19.9 10-20 Random Glucose 106 70-99 mg/dl Lactic Acid Level 1.7 0.4-2.0 mmol/L Calcium Level 9.3 8.5-10.1 mg/dl Magnesium Level 1.7 1.8-2.4 mg/dl Total Bilirubin 0.3 0.2-1 mg/dl Aspartate Amino Transf (AST/SGOT) 61 15-37 U/L Alanine Aminotransferase (ALT/SGPT) 20 12-78 U/L Alkaline Phosphatase 96 45-117 U/L Troponin I < 0.015 0-0.045 ng/ml Pro-B-Type Natriuretic Peptide 247 0-900 pg/ml Total Protein 6.9 6.4-8.2 gm/dl Albumin 2.2 3.4-5.0 gm/dl Globulin 4.7 2.5-4.0 gm/dl Albumin/Globulin Ratio 0.5 0.9-2 Arterial Blood pH 7.48 7.35-7.45 Arterial Blood Partial Pressure CO2 38 35-46 mmHg Arterial Blood Partial Pressure O2 61 80-95 mm/Hg Arterial Blood HCO3 28 19-24 mmol/L Arterial Blood Oxygen Saturation 90.1 90-95 % Arterial Blood Base Excess 4.0 -9-1.8 mEq/L Arterial Blood Gas Delivery 15L Devin Test POS POS Procalcitonin 0.21 0-0.5 ng/ml Bedside Lactic Acid Venous 1.21 0.90-1.70 mmol/L Bedside Glucose 133 70-99 mg/dl Test 02/17/17 09:02 02/17/17 10:15 02/17/17 11:07 Range/Units Bedside Glucose 208 70-99 mg/dl Urine Color YELLOW Urine Appearance CLEAR CLEAR Urine pH 6.0 4.5-7.5 Urine Specific [place] 1.026 1.000-1.030 Urine Protein 1+ NEG Urine Glucose (UA) NEG NEG Urine Ketones NEG NEG Urine Occult Blood NEG NEG Urine Nitrite NEG NEG Urine Bilirubin NEG NEG Urine Urobilinogen NEG NEG Urine Leukocyte Esterase NEG NEG Urine WBC (Auto) 1-5 0-5 /hpf Urine RBC (Auto) 0-4 0-4 /hpf Urine Hyaline Casts (Auto) 1-5 0-5 /lpf Urine Epithelial Cells (Auto) 10-20 0-5 /lpf Urine Bacteria (Auto) NEG NEG Microbiology Results 02/17/17 Blood Culture, Received Pending 02/17/17 Blood Culture, Received Pending 02/17/17 MRSA DNA Surveillance Screen - Final, Complete Specimen Negative for MRSA by DNA Probe Diagnostic Radiology TTE 02/02/2017 * -- Conclusions -- * Normal LV chamber size with mild concentric LVH. * Normal LV systolic function, EF 65-70%. * No segmental left ventricular wall motion abnormalities are noted. * Grade I diastolic dysfunction. * No significant valvular pathology. * TR jet inadequate to calculate PASP. Impression Assessment and Plan Acute hypoxic respiratory failure Stage III B small cell carcinoma of left upper lobe status post chemoradiation therapy. Radiation pneumonitis Hospital acquired pneumonia Bilateral pulmonary emboli is a 56-year-old male with hypoxic respiratory failure most likely secondary to radiation pneumonitis, small cell lung cancer the left upper lobe, now hospital-acquired pneumonia and bilateral pulmonary emboli. At the current time, patient has been transferred to ICU. Discussed goals of care even further. He will most likely need mechanical ventilation to adequately maintain his oxygen saturation and prevent organ damage secondary to hypoxia. Continue with broa d-spectrum antibiotics of vancomycin, cefepime and Levaquin. I was also add on Bactrim to cover for PCP as he has been on long-standing steroids at this time. Once intubated on perform bronchoscopy with BAL to send cultures for bacteria, fungal, AFB and cytology. I would switch prednisone over to IV Solu-Medrol 40 mg every 8 hours. He does have grade 1 diastolic dysfunction, but shows no signs of fluid overload at this time. Can continue Lasix when necessary. Continue with full dose anticoagulation of Lovenox. If no clinical improvement may have to add antifungal coverage as well. Will discuss case with Dr. Das. I appreciate the consult. Please contact me if you have any further questions or concerns.
[2017-02-17] MEDS ORDERED: RAPID SEQUENCE INDUCTION BAG ONE (12:55)
[2017-02-17] MEDS ORDERED: MIDAZOLAM 125MG/250ML D5W 250 ML IV PRN (13:00)
[2017-02-17] MEDS ORDERED: VECURONIUM BROMIDE 10 MG VIAL IV STA (13:14)
[2017-02-17] MEDS ORDERED: MIDAZOLAM HCL 5 MG/ML 1 ML VIAL ONE (13:33)
[2017-02-17] MEDS ORDERED: PROPOFOL IV EMULSION 10 MG/ML 100 ML VIAL IV ONE ×2 (13:40→20:03)
[2017-02-17] MEDS ORDERED: DILUENT IV SCH (14:00)
[2017-02-17] MEDS ORDERED: SULFA IV SCH (14:00)
[2017-02-17] MEDS: FENTANYL CITRATE INJ 50 MCG/1 ML 2 ML VIAL IV SCH ×5 (14:00→22:00)
[2017-02-17] MEDS ORDERED: CEFEPIME IV 2,000 MG in DEXTROSE 5% 100ML 100 ML IV SCH (14:00)
[2017-02-17] MEDS ORDERED: TRIMETH IV SCH (14:00)
[2017-02-17] MEDS ORDERED: CISATRACURIUM BESYLATE IV SOLN 2 MG/ML 10 ML VIAL IV ONE (15:00)
[2017-02-17] MEDS ORDERED: CISATRACURIUM BESYLATE INJ 40 MG in SODIUM CHLORIDE 0.9% 100ML 80 ML IV PRN (15:00)
[2017-02-17] MEDS ORDERED: CISATRACURIUM BOLUS FROM BAG IV ONE ×2 (15:00→15:15)
[2017-02-17] MEDS ORDERED: ACETAMINOPHEN IV 100 ML IV PRN (15:15)
[2017-02-17] MEDS ORDERED: FENTANYL CITRATE 1250MCG/250ML NSS ONE (15:15)
--- NOTE | 2017-02-17 15:28 | DIAGNOSTIC IMAGING REPORT ---
CHEST ONE VIEW PORTABLE CLINICAL HISTORY: Endotracheal tube placement. COMPARISON STUDY: Chest radiograph February 17, 2017 at 4:19 AM. FINDINGS: The tip of the endotracheal tube is 10 cm above the butch. Tip of nasogastric tube is below lower aspect of this image but at least within the proximal stomach. Tip of right internal jugular central line projects over the proximal SVC. There is no pneumothorax. Dense bilateral airspace opacities with interstitial thickening have progressed. IMPRESSION: 1. Tip of endotracheal tube 10 cm above the butch. The tube could be advanced 6 cm. 2. No pneumothorax following placement of a right internal jugular central line. 3. Progression of dense bilateral airspace opacities. The findings favor bilateral pneumonia although pulmonary edema could appear similar. Electronically signed by: Thomas Hahn M.D. 02/17/2017 3:27 PM Dictated Date/Time: 02/17/2017 3:24 PM
--- NOTE | 2017-02-17 15:37 | DIAGNOSTIC IMAGING REPORT ---
CHEST ONE VIEW PORTABLE CLINICAL HISTORY: Endotracheal tube repositioning. COMPARISON STUDY: Chest radiograph February 17, 2017 at 2:54 PM. FINDINGS: The endotracheal tube has been advanced. The tip is now 5.7 cm above the butch. Tip of nasogastric tube is below lower aspect of image but at least within the proximal body of the stomach. A right internal jugular central line remains in place. There is no pneumothorax. Dense bilateral consolidation persists. IMPRESSION: 1. Satisfactory positioning of lines and tubes. 2. Persistent dense bilateral airspace opacities which favors pneumonia. However, pulmonary edema could appear similar. Electronically signed by: Thomas Hahn M.D. 02/17/2017 3:36 PM Dictated Date/Time: 02/17/2017 3:35 PM
[2017-02-17] MEDS: SULFA IV SCH ×2 (15:46→22:22)
[2017-02-17] MEDS: TRIMETH IV SCH ×2 (15:46→22:22)
[2017-02-17] MEDS: VANCOMYCIN INJ 2,250 MG in SODIUM CHLORIDE 0.9% 500ML 500 ML IV SCH (15:46)
[2017-02-17] MEDS: DEXTROSE 5% IV SCH ×2 (15:46→22:22)
[2017-02-17] MEDS: PANTOprazole INJ 40 MG in SYRINGE 0 ML IV SCH (15:47)
[2017-02-17] MEDS: CEFEPIME IV 2,000 MG in SYRINGE 7.5 ML IV SCH ×2 (15:47→22:00)
[2017-02-17] MEDS: METHYLPREDNISOLONE IV 40 MG in SYRINGE 0 ML IV SCH (15:52)
--- NOTE | 2017-02-17 16:04 | Critical Care Consultation ---
Critical Care Consultation Date of Consultation: Feb 17, 2017. Attending Physician: Efraín Almeida M.D. Reason for Consultation: Hypoxic Respiratory Failure History of Present Illness This is a 56 yo M currently a patient of [facility] with h/o of Small Cell Lung cancer (diagnosed 10/09) s/p chemotherapy (carboplatin and etoposide)and radiation complicated by radiation pneumonitis, h/o DVT (UE) on Lovenox, t2DM om insulin. He was recently discharged from [facility] on 02/09 after presenting with Dyspnea , found to have Multifocal Pneumonia and bilateral PE. He was placed on prednisone, broad spectrum antibiotics, and Lovenox and eventually discharged to [facility]. While at [facility], in the last few days he became progressively dyspneic and hypoxic. Supplemental Oxygen was advanced to non- rebreather mask but only maintained sats in the upper 80's. He was subsequently sent to [facility] ED where he was found to be febrile at 38.8 and o2 sat in the 80's WBC Ct of 12 . H He was started on Vancomycin, Cefepime and Levaquin for empirically for Hospital acquired Pneumonia.He reportedly refused BiPAP and nebulizer treatments. Pulmonology was consulted and recommended ICU transfer. Past Medical/Surgical History PAST MEDICAL HISTORY: 1. Chronic Backpain. 2. Type 2 diabetes. 3. Small cell lung carcinoma s/p chemo and radiation. 4. History of upper extremity DVT. 5. Spinal stenosis. 6. Dyslipidemia. 7. Tobacco abuse. 8. Hypertension. PAST SURGICAL HISTORY: 1. Multiple back surgeries. 2. Colonoscopy. 3. Spinal surgery. Family History Diabetes mellitus Social History Smoking Status: Former Smoker Marital Status: single Housing Status: lives alone Occupation Status: unemployed Allergies Coded Allergies: Amoxicillin (Verified Allergy, Intermediate, sob, 02/17/17) PER CONVERSATION WITH ANSELMO AQUINO PA-C - SHE SPOKE WITH PATIENT WHO STATES THAT THIS IS NOT A TRUE ALLERGY HE HAS TOLERATED PENCILLINS IN THE PAST. TOLERATES ROCEPHIN X 5 DOSES AN OUTPATIENT. Atorvastatin (Verified Allergy, Intermediate, diarrhea, 02/17/17) Acetaminophen (Verified Allergy, Unknown, PT STATES "IT INTENSIFIES EFFECT ", 02/17/17) Clindamycin (Verified Allergy, Unknown, SHORTNESS OF BREATH, 02/17/17) Escitalopram (Verified Allergy, Unknown, GI UPSET, 02/17/17) Gabapentin (Verified Allergy, Unknown, CONSTIPATION, 02/17/17) Insulin Aspart (Verified Allergy, Unknown, ALLERGIC TO PRESERVATIVES IN NOVOLOG - OK WITH REGULAR/NPH, 02/17/17) Morphine (Verified Allergy, Unknown, DID NOT TOLERATE PER PT, 02/17/17) Propoxyphene (Verified Allergy, Unknown, "DID CRAZY THINGS", 02/17/17) Sitagliptin (Verified Allergy, Unknown, UNKNOWN RXN, 02/17/17) Adhesives (Verified Adverse Reaction, Unknown, "rips his skin off", ) Dextromethorphan (Verified Adverse Reaction, Unknown, HARD TO BREATHE?, ) Guaifenesin (Verified Adverse Reaction, Unknown, HARD TO BREATHE?, ) Metformin (Verified Adverse Reaction, Unknown, PT STATES "DID NOT WORK", 02/17/17) Home Medications Scheduled Aspirin (Aspirin Ec), 325 MG PO QAM Biotin W/ Vitamins C & E (Hair/Skin/Nails 1250-7.5-7.5 Mcg-mg-Unt), 1 TAB PO DAILY Cholecalciferol (Vitamin D), 5,000 UNITS PO DAILY Docusate Sodium (Docusate Sodium), 100 MG PO BID Enoxaparin (Lovenox), 120 MG SQ Q12H Insulin Isophan/Regular (Humulin 70/30), 105 UNITS SC BIDM Levalbuterol Hcl (Levalbuterol), 1 AMP INH Q6H Levofloxacin (Levaquin), 750 MG PO DAILY Methadone Hcl (Dolophine), 10 MG PO Q6H Prednisone (Prednisone), 50 MG PO DAILY Vitamin E (E-400), 400 MG PO TIDM Zolpidem Tartrate (Ambien), 10 MG PO HS Scheduled PRN Bisacodyl (Bisacodyl), 10 MG RE DAILY PRN for Constipation Diazepam (Valium), 2 MG PO BID PRN for Anxiety/Agitation Furosemide (Lasix), 20 MG PO DAILY PRN for SWELLING Insulin Human Regular (Humulin R), 1 DOSE SQ ACHS PRN for SLIDING SCALE Magnesium Hydroxide (Milk of Magnesia), 30 ML PO DAILY PRN for Constipation Ondansetron Hcl (Zofran), 8 MG PO Q8 PRN for Nausea Oxymetazoline Hcl (Afrin 0.05% Nasal [place]), 1 BTL NA DIRECTED PRN for CONGESTION Polyethylene Glycol 3350 (Miralax), 17 GM PO QDL PRN for Constipation Sennosides-Docusate Sodium (Senokot S), 1 TAB PO QDL PRN for Constipation Sodium Phosphate/Biphosphate (Fleet Enema), 1 EA IN DAILY PRN for Constipation Tramadol (Ultram), 50 MG PO Q6H PRN for Pain Current Inpatient Medications Current Inpatient Medications Medications (Trade) Dose Ordered Sig/Prince Route Start Time Stop Time Status Last Admin Dose Admin Acetaminophen (Tylenol Tab) 650 mg Q4H PRN PO 02/17/17 06:30 03/19/17 06:29 Al Hydrox/Mg Hydrox/Simethicone (Maalox Max Susp) 15 ml Q4H PRN PO 02/17/17 06:30 03/19/17 06:29 Magnesium Hydroxide (Milk Of Magnesia Susp) 30 ml Q12H PRN PO 02/17/17 06:30 03/19/17 06:29 Aspirin (Ecotrin Tab) 325 mg QAM PO 02/18/17 09:00 03/20/17 08:59 Diazepam (Valium Tab) 2 mg BID PRN PO 02/17/17 06:30 03/19/17 06:29 Future Hold 02/17/17 11:52 2 MG Docusate Sodium (coLACE CAP) 100 mg BID PO 02/17/17 09:00 03/19/17 08:59 Enoxaparin Sodium (Lovenox Inj) 120 mg Q12H SQ 02/17/17 09:00 03/19/17 08:59 02/17/17 08:46 120 MG Methadone HCl (Dolophine Tab) 10 mg Q6 PO 02/17/17 12:00 03/03/17 11:59 02/17/17 11:52 10 MG Ondansetron HCl (Zofran Tab) 8 mg Q8 PRN PO 02/17/17 06:30 03/19/17 06:29 Senna/Docusate Sodium (Senokot S Tab) 1 tab QDL PRN PO 02/17/17 06:30 03/19/17 06:29 Cholecalciferol (Vitamin D Tab) 5,000 inter.unit DAILY PO 02/17/17 09:00 03/19/17 08:59 02/17/17 08:45 5,000 INTER.UNIT Polyethylene (Miralax Powder Packet) 17 gm QDL PRN PO 02/17/17 06:30 03/19/17 06:29 Levalbuterol (Xopenex 1.25MG/ 0.5ML Neb) 1.25 mg Q6R PRN INH 02/17/17 06:30 03/19/17 06:29 Levofloxacin 750 mg/Prmx 150 ml @ 100 mls/hr Q24H IV 02/17/17 09:00 02/24/17 08:59 02/17/17 09:57 100 MLS/HR Cefepime HCl 2000 mg/Syringe 20 ml @ 5 mls/min Q8H IV 02/17/17 14:00 02/24/17 13:59 Vancomycin HCl (Consult) 1 ea UD PRN N/A 02/17/17 08:30 03/19/17 08:29 Vancomycin HCl 2250 mg/Sodium Chloride 545 ml @ 200 mls/hr Q10H IV 02/17/17 14:00 02/24/17 13:59 Midazolam HCl 250 ml @ 0 mls/hr Q0M PRN IV 02/17/17 13:00 03/19/17 12:59 Fentanyl Citrate (Fentanyl Inj) 50 mcg Q2H IV 02/17/17 14:00 03/03/17 13:59 Pantoprazole Sodium 40 mg/ Syringe 10 ml @ 5 mls/min Q24H IV 02/17/17 14:00 03/19/17 13:59 Trimethoprim/ Sulfamethoxazole 525 mg/Dextrose 532.8125 ml @ 333 mls/hr Q6H IV 02/17/17 16:00 02/24/17 15:59 Acetaminophen 100 ml @ 400 mls/hr Q8H PRN IV 02/17/17 15:15 03/19/17 15:14 Methylprednisolone Sodium Succinate 40 mg/Syringe 0.64 ml @ 1.5 mls/min Q8H IV 02/17/17 16:00 03/19/17 15:14 Fentanyl Citrate 250 ml @ 0 mls/hr Q0M PRN IV 02/17/17 15:15 12/9/17 15:14 Cisatracurium Besylate 40 mg/ Sodium Chloride 100 ml @ 0 mls/hr Q0M PRN IV 02/17/17 15:30 03/19/17 14:59 Enteral Nutritional Formula (Peptamen Intense VHP) 1,000 ml DAILY@1600 OG 02/17/17 16:00 03/19/17 15:59 Review of Systems could not assess complete review of systems due to patient's resp status Constitutional: + fever, + chills Respiratory: + cough, + sputum, + shortness of breath Physical Exam Date Time Temp Pulse Resp B/P (MAP) Pulse Ox O2 Delivery O2 Flow Rate FiO2 02/17/17 14:45 100 02/17/17 07:56 37.0 117 24 123/71 88 Non-Rebreather 15.0 02/17/17 07:09 37.4 107 19 111/68 92 Non-Rebreather 15.0 02/17/17 06:31 106 18 109/70 91 Non-Rebreather 02/17/17 05:01 115 18 119/73 88 Non-Rebreather 15.0 02/17/17 05:01 115 19 119/73 93 Non-Rebreather Manual 02/17/17 04:17 38.8 125 20 147/90 87 Non-Rebreather 02/17/17 04:17 88 Non-Rebreather 02/17/17 04:10 128 GENERAL: alert, mod. distress NECK: supple, no nuchal rigidity, no adenopathy, non-tender LUNGS: resp distress HEART: no murmurs, S1 normal and S2 normal ABDOMEN: abdomen soft normo-active bowel sounds UPPER EXTREMITIES: upper extremities are grossly normal. LOWER EXTREMITIES: No pitting edema. NEURO EXAM: Normal sensorium, cranial nerves II-XII grossly intact, normal speech, Laboratory Results Last 24 Hours Test 02/17/17 04:28 02/17/17 04:35 02/17/17 04:44 02/17/17 06:17 White Blood Count 12.75 K/uL Red Blood Count 3.55 M/uL Hemoglobin 10.4 g/dL Hematocrit 33.5 % Mean Corpuscular Volume 94.4 fL Mean Corpuscular Hemoglobin 29.3 pg Mean Corpuscular Hemoglobin Concent 31.0 g/dl Platelet Count 282 K/uL Mean Platelet Volume 9.9 fL Neutrophils (%) (Auto) 88.8 % Lymphocytes (%) (Auto) 3.5 % Monocytes (%) (Auto) 6.2 % Eosinophils (%) (Auto) 0.6 % Basophils (%) (Auto) 0.2 % Neutrophils # (Auto) 11.33 K/uL Lymphocytes # (Auto) 0.44 K/uL Monocytes # (Auto) 0.79 K/uL Eosinophils # (Auto) 0.08 K/uL Basophils # (Auto) 0.02 K/uL RDW Standard Deviation 62.0 fL RDW Coefficient of Variation 17.9 % Immature Granulocyte % (Auto) 0.7 % Immature Granulocyte # (Auto) 0.09 K/uL Nucleated RBC Absolute Count (auto) 0.05 K/uL Nucleated Red Blood Cells % 0.4 % Polychromasia 1+ Tear Drop Cells OCCASIONAL Prothrombin Time 12.0 SECONDS Prothromb Time International Ratio 1.1 Sodium Level 132 mmol/L Potassium Level 4.2 mmol/L Chloride Level 96 mmol/L Carbon Dioxide Level 30 mmol/L Anion Gap 6.0 mmol/L Blood Urea Nitrogen 19 mg/dl Creatinine 0.97 mg/dl Est Creatinine Clear Calc Drug Dose 131.3 ml/min Estimated GFR () 102.2 Estimated GFR (Non- 88.1 BUN/Creatinine Ratio 19.9 Random Glucose 106 mg/dl Lactic Acid Level 1.7 mmol/L Calcium Level 9.3 mg/dl Magnesium Level 1.7 mg/dl Total Bilirubin 0.3 mg/dl Aspartate Amino Transf (AST/SGOT) 61 U/L Alanine Aminotransferase (ALT/SGPT) 20 U/L Alkaline Phosphatase 96 U/L Troponin I < 0.015 ng/ml Pro-B-Type Natriuretic Peptide 247 pg/ml Total Protein 6.9 gm/dl Albumin 2.2 gm/dl Globulin 4.7 gm/dl Albumin/Globulin Ratio 0.5 Arterial Blood pH 7.48 Arterial Blood Partial Pressure CO2 38 mmHg Arterial Blood Partial Pressure O2 61 mm/Hg Arterial Blood HCO3 28 mmol/L Arterial Blood Oxygen Saturation 90.1 % Arterial Blood Base Excess 4.0 mEq/L Arterial Blood Gas Delivery 15L Devin Test POS Procalcitonin 0.21 ng/ml Bedside Lactic Acid Venous 1.21 mmol/L Bedside Glucose 133 mg/dl Test 02/17/17 09:02 02/17/17 10:15 02/17/17 11:07 02/17/17 14:43 Bedside Glucose 208 mg/dl 173 mg/dl Urine Color YELLOW Urine Appearance CLEAR Urine pH 6.0 Urine Specific Blairs 1.026 Urine Protein 1+ Urine Glucose (UA) NEG Urine Ketones NEG Urine Occult Blood NEG Urine Nitrite NEG Urine Bilirubin NEG Urine Urobilinogen NEG Urine Leukocyte Esterase NEG Urine WBC (Auto) 1-5 /hpf Urine RBC (Auto) 0-4 /hpf Urine Hyaline Casts (Auto) 1-5 /lpf Urine Epithelial Cells (Auto) 10-20 /lpf Urine Bacteria (Auto) NEG Blood Gas Sample Site Art Line Bedside Blood Gas pH (LAB) 7.09 Bedside Blood Gas pCO2 (LAB) 105 mmHg Bedside Blood Gas pO2 (LAB) 77 mmHg Bedside Blood Gas HCO3 (LAB) 31 meq/L Bedside Blood Gas Total CO2 34 mEq/l Bedside Blood Gas Base Excess (LAB) 1.0 meq/L Bedside Blood Gas O2 Saturation 85.0 % Devin Test NA Oxygen Delivery Device Ventilator Bedside Oxygen Rate (breaths/min) 14 Blood Gas Minute Ventilation 7.7 Bedside FiO2 100 % Blood Gas Tidal Volume 550 Blood Gas PEEP 12 Test 02/17/17 15:24 Diagnostic Results CHEST ONE VIEW PORTABLE CLINICAL HISTORY: Endotracheal tube repositioning. COMPARISON STUDY: Chest radiograph February 17, 2017 at 2:54 PM. FINDINGS: The endotracheal tube has been advanced. The tip is now 5.7 cm above the butch. Tip of nasogastric tube is below lower aspect of image but at least within the proximal body of the stomach. A right internal jugular central line remains in place. There is no pneumothorax. Dense bilateral consolidation persists. IMPRESSION: 1. Satisfactory positioning of lines and tubes. 2. Persistent dense bilateral airspace opacities which favors pneumonia. However, pulmonary edema could appear similar. CHEST 1 VW FRONT-NOT PORTABLE CLINICAL HISTORY: Shortness of breath and fever. Recent pneumonia. History of lung cancer. COMPARISON STUDY: Chest CT January 30, 2017 and chest radiograph February 04, 2017. FINDINGS: There is no pneumothorax. No pleural effusion is visualized. Cardiomediastinal silhouette is stable. Dense left lung airspace opacity persists. Minimal improvement is noted within the left lung since prior exam. Right lung airspace opacity has significantly progressed. IMPRESSION: Extensive bilateral airspace opacities which favor bilateral pneumonia. Slight improvement in dense left lung consolidation since prior exam with significant progression of right lung airspace opacity. Radiographic follow-up is recommended. 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 Pneumonitis, Hypoxic Resp failure, saturation in 80's on high flow NC, refused BIPAP Small Cell Lung Cancer: Stage IV, s/p Chemoradiation complicated by radiation pneumonitis Possible Pneumonia: empirically treating with Vancomycin, Levaquin, Cefepime Chest X-ray: Reviewed, Result: Extensive bilateral airspace opacities which favor bilateral pneumonia. Intubation indicated, plan to discuss with patient, family Blood gas: pH 7.48 pCO2 61 HCO3 28 Cardiovascular: CV drips: Remains off vasoactive medications Rhythm: Sinus EKG: Sinus Tachycardia, QTc 440 Dobutamine Stress ECHO: 01/30/17: Chest pain produced with deep inhalation , Nonischemic Fluids/Renal: Hyponatremia IV Fluids: LR 50 mls/hr Em: None GI/Nutrition: Feeding:NPO Prophylaxis: None Endocrine: T2DM Last 24 hour glucose: 106 Insulin protocol: Yes; Drip: No Hematology: Hemoglobin 10.4 DVT prophylaxis: Heparin 5000 3 times a day Infectious Disease/Immunology: Tmax: 38.9 CV Lines (date): Plan for arterial line, CV line today Antimicrobials: Vancomycin day 1? Cefepime 1/? Levaquin 1/? Bactrim 1/? Cultures: Blood: No growth Urine: Less than 1000 CFU MRSA: CSF: No growth to date Immunosuppressive labs: NA Resident Physician Supervision Note: Dr. Sanchez was resident physician during care of patient. I separately evaluated patient and did history and exam. I discussed the case with the resident and generally agree with the findings and plan. I discussed the patient with Dr. Em of pulmonary. We had an extensive and lengthy discussion with the patient who initially did not want endotracheal intubation, central venous access, as he thought he was transferred to the ICU for closer monitoring and was not going to undergo invasive procedures. We discussed the patient's case with his brother and utilized his brother in the conversation to help provide better understanding of the severity of illness. Patient had impending respiratory failure was on high flow nasal cannula and was saturating in the low 80%. Both Dr. Em and I stressed that given the history of radiation pneumonitis, possible pneumonia which also requires the consideration of PJP, history of PE and presumptive chronic venous thromboembolic disease that placement of an endotracheal tube has a high likelihood of requiring tracheostomy for ventilator weaning and may ultimately lead to chronic ventilator dependent respiratory failure. Patient did consent to arterial line, central line, endotracheal intubation and mechanical ventilation, bronchoscopy, as well as blood transfusion if so required. I also discussed the case with Dr. Gale at the patient's request. In the discussion, I believe the patient's as well as the patient's father are under the impression that the radiation has killed the cancer. I cannot completely elucidate whether they feel that the cancer is "cured" or if this radiation and chemotherapy is palliative in nature. Not withstanding the patient was intubated and started on ARDSnet protocol. Given such a profound hypoxemia and ventilator dyssynchrony, I feel the patient would benefit from neuromuscular blockade with cysts atracurium for severe ARDS. He has been started on broad-spectrum antibiotics. He underwent bronchoscopy and the bronchoscopic findings were largely unremarkable. Patient is critically ill due to severe guards in the setting of stage IIIB small cell lung cancer status post radiation with radiation pneumonitis. In further chart review there is a history of possible medication noncompliance with chronic anticoagulation. It appears the patient stopped taking Lovenox for some period secondary to his thoughts that the Lovenox caused a fever. We have continued anticoagulation at this time. I have personally spent 125 minutes of critical care time in the direct management of this patient. This is a life/limb threatening event. This includes time spent evaluating patient, direct bedside care, chart review, placing orders, interpretation of diagnostic studies, discussion with consultants, patient, and family members, as well as other required patient management activities. This time is exclusive of all separately billable procedures, and teaching time and separate from and in addition to any other critical care service time. Documented By: Shady Das DO Resident Tracking Resident Involvement: Resident Care Provided Care Provided: [facility] Medicine
[2017-02-17] MEDS ORDERED: METOPROLOL TARTRATE 1 MG/ML VIAL ONE (16:13)
[2017-02-17] MEDS: PEPTAMEN INTENSE VHP 1000ML BAG OG SCH (17:25)
--- NOTE | 2017-02-17 17:38 | DIAGNOSTIC IMAGING REPORT ---
CHEST ONE VIEW PORTABLE CLINICAL HISTORY: ET PLACEMENT COMPARISON STUDY: Chest radiograph February 17, 2017 2:54 PM. FINDINGS: The tip of the endotracheal tube is 3.5 cm above the butch. A right internal jugular central line is unchanged in position. Tip of nasogastric tube is below the lower aspect of the image but at least within the proximal body of the stomach. Dense bilateral consolidation has significantly progressed since study performed this morning. There is no pneumothorax. IMPRESSION: 1. Satisfactory positioning of lines and tubes. 2. Progression of extensive bilateral opacities. This could reflect pneumonia or pulmonary edema. Electronically signed by: Thomas Hahn M.D. 02/17/2017 5:37 PM Dictated Date/Time: 02/17/2017 5:36 PM
[2017-02-17 17:47] LABS: INFLUENZA A PCR Neg for Influ A (NEG); INFLUENZA B PCR Neg for Influ B (NEG)
[2017-02-17] MEDS: PROPOFOL IV EMULSION 10 MG/ML 100 ML VIAL IV PRN (20:22)
--- NOTE | 2017-02-17 20:36 | Procedure Note ---
Procedure Note Date of Service Feb 17, 2017. Procedure Note Procedure Date: 02/17/2017 Procedure: Endotracheal intubation Pre-procedure Diagnosis: Hypoxic respiratory failure Post-procedure Diagnosis: same as above Prior to Procedure: Informed Consent: Risks and benefits were discussed with the patient, and informed consent was obtained Attending Staff: Deborah Das DO Indications: Patient is a 56-year-old male with a history of stage IIIB small cell lung cancer of the left upper lobe status post radiation with radiation pneumonitis, and bilateral PEs on long-term anticoagulation who presents with worsening hypoxia despite high flow nasal cannula therapy. The identity of the patient was confirmed and a bedside time out was performed. Description of Procedure: Patient was evaluated and required intubation for impending respiratory failure. The patient was prepared in the usual fashion, and attempted to be preoxygenated. The best oxygen saturation we were able to obtain was 83%. A 4 Glidescope laryngoscope was used. A 8.5 Fr endotrachial tube was placed endotracheally to 24 cm at the teeth. A grade 1 view was obtained. The endotracheal tube was noted to pass through the vocal cords. Chest rise was bilateral. Bilateral breath sounds were heard without air sounds in the abdomen. Mist was noted in the endotracheal tube. End-tidal CO2 measurement was positive. Chest x-ray shows proper endotracheal tube placement. Complications: The patient was promptly intubated utilizing sedatives and neuromuscular blockade. The patient promptly desaturated into the 60s however he recovered to the mid 80s. The patient did not appear to go into any cardiac dysrhythmia during the desaturation event Findings: not applicable Specimens: not applicable Estimated blood loss: Zero
--- NOTE | 2017-02-17 20:39 | Procedure Note ---
Procedure Note Date of Service Feb 17, 2017. Procedure Note Procedure date: 02/17/2017 Procedure: fiberoptic bronchoscopy Pre-procedure Diagnosis: Severe hypoxic respiratory failure Post-procedure Diagnosis: same as above Prior to Procedure: Informed Consent: The risks, benefits, indications, potential complications, and alternatives were explained to the patient/family and informed consent obtained. Attending Staff: Deborah Das DO Resident/APC: Dannie Sanchez Skin Prep: Not applicable Anesthesia: Pneumovax neuromuscular blockade, fentanyl infusion, propofol infusion, for sudden fusion Indications: Patient is a 56-year-old male with stage IIIB small cell lung cancer, radiation pneumonitis, probable pneumonia, known bilateral PEs on anticoagulation with new and worsening pulmonary infiltrates on chest x-ray consistent with ARDS. The identity of the patient was confirmed and a bedside time out was performed. Description of Procedure: Fiberoptic bronchoscopy was performed via endotracheal tube. Bronchioalveolar lavage right middle lobe and left upper lobe was performed. Findings included: Largely unremarkable airway secretions with scattered white secretions in the distal airways. Complications: None Specimens: Bronchial washings sent for culture and Gram stain, cytology, fungal elements, and AFB stain and culture. Estimated blood loss: Zero
--- NOTE | 2017-02-17 20:44 | Procedure Note ---
Procedure Note Procedure Date Feb 17, 2017. Procedure Description Procedure Name: Right radial arterial line Procedure time out: side/site verified Consent obtained: written Time of procedure: 14:00 Performed by: attending Indications: diagnostic Contraindications: other (Lovenox anticoagulation) Description: The right wrist was prepped with ChloraPrep and sterile fashion. Using dynamic ultrasound guidance the right radial artery was visualized. 1% lidocaine was used to anesthetize the area. An 18-gauge Angiocath was then inserted via modified Seldinger technique into the right radial artery. This was secured with a commercial securement device. Complications: none Patient tolerated procedure: well Post-procedure vital signs: reviewed and stable Comments: Critical Care Medicine Point of Care Bedside Ultrasound Procedure: Procedural Ultrasound Procedure Date: 02/17/2017 Indication: Right radial arterial line placement Attending: Deborah Das DO Artery visualized: y Guidewire or Short Catheter seen in vein prior to dilation: y Impression: Excess for placement of a right radial arterial line Images obtained are saved for permanent record Central Line Procedure time out: side/site verified, patient ID confirmed, sterile procedure used Consent obtained: written Time of procedure: 13:30 Performed by: resident Indications: poor venous access, central drug admin. Contraindications: h/o venous thrombosis, other (Lovenox therapeutic anticoagulation) Prep: chlorhexadine prep Anesthesia: lidocaine 1% without epi Volume anesthetic (ml's): 2 Central line lumen: triple Central line location: internal jugular (R) Additional details: ultrasound guidance, Selinger technique used, line sutured , good blood return CXR: appropriate position Complications: other (small hematoma at the site of insertion) Patient tolerated procedure: well Post-procedure vital signs: reviewed and stable Comments: Critical Care Medicine Point of Care Bedside Ultrasound Procedure: Procedural Ultrasound Procedure Date: 02/17/2017 Indication: Right internal jugular central venous catheter Attending: Deborah Das DO Resident/Physician Scouring Train Operator: Dannie Sanchez Artery AND Vein visualized: y Compressible Vein: y Guidewire or Short Catheter seen in vein prior to dilation: y Line confirmed in Vein with ultrasound: y Lung Sliding on side of attempt (if applicable): y If no lung sliding or not obtained has CXR been ordered: y Impression: Successful placement of a right internal jugular central venous catheter Images obtained are saved for permanent record
[2017-02-17] MEDS ORDERED: INSULIN IV INFUSION PROTOCOL SCH (20:56)
[2017-02-17] MEDS: INSULIN ASPART 100 UNITS/ML 3 ML PEN SC SCH (21:00)
[2017-02-17] MEDS ORDERED: SEVERE STRESS LEVEL ONE (21:00)
[2017-02-17] MEDS ORDERED: ZOLPIDEM TARTRATE 10 MG TAB PO SCH (21:00)
[2017-02-17] MEDS ORDERED: INSULIN PROTOCOL GOAL RANGE ONE (21:00)
[2017-02-17] MEDS ORDERED: NovoLIN R BOLUS FROM BAG IV ONE (21:15)
[2017-02-17] MEDS ORDERED: NURSING VERBAL MED ORDER ONE (21:30)
[2017-02-17] MEDS: INSULIN REGULAR 250 UNITS in SODIUM CHLORIDE 0.9% 250ML 250 ML IV SCH (21:47)
[2017-02-17] MEDS: LACTATED RINGER'S 1000ML 1,000 ML IV SCH (21:48)
[2017-02-17] MEDS: CISATRACURIUM BESYLATE INJ 40 MG in SODIUM CHLORIDE 0.9% 100ML 80 ML IV PRN (23:07)
[2017-02-18] VITALS (33 sets, daily range): BP systolic 78–148; BP diastolic 54–95; PULSE 62–114; TEMP 35.1–37.5; O2SAT 81–97
[2017-02-18] MEDS ORDERED: ACETAMINOPHEN IV 1,000 MG in EMPTY BAG 0 ML IV SCH
[2017-02-18] MEDS: VANCOMYCIN INJ 2,250 MG in SODIUM CHLORIDE 0.9% 500ML 500 ML IV SCH ×3 (00:27→19:55)
[2017-02-18] MEDS: METHYLPREDNISOLONE IV 40 MG in SYRINGE 0 ML IV SCH ×4 (00:28→23:20)
[2017-02-18] MEDS: METHADONE HCL 10 MG TAB PO SCH ×5 (00:29→23:20)
[2017-02-18] MEDS: FENTANYL CITRATE INJ 50 MCG/1 ML 2 ML VIAL IV SCH ×5 (02:00→08:00)
[2017-02-18] MEDS: FENTANYL 1250MCG/250ML NSS 250 ML IV PRN ×3 (03:54→23:54)
[2017-02-18] MEDS: SULFA IV SCH ×4 (04:06→22:04)
[2017-02-18] MEDS: DEXTROSE 5% IV SCH ×4 (04:06→22:04)
[2017-02-18] MEDS: TRIMETH IV SCH ×4 (04:06→22:04)
[2017-02-18] MEDS ORDERED: ACETAMINOPHEN IV 1000MG/100ML IV PRN (04:45)
[2017-02-18] MEDS: CEFEPIME IV 2,000 MG in SYRINGE 7.5 ML IV SCH ×3 (05:24→22:04)
--- NOTE | 2017-02-18 05:51 | Critical Care Progress Note ---
Critical Care Progress Note Date of Service Feb 18, 2017. ICU Day ICU Day Number: [address] Das Subjective Patient s/p intubation secondary to Hypoxic Resp failure. HE is sedated on Diprivan, Fentanyl, Versed and Nimbex Objective GENERAL: sedated, intubated NECK: supple, no nuchal rigidity, no adenopathy, non-tender LUNGS:adolph rhonchi, no wheeze HEART: no murmurs, S1 normal and S2 normal ABDOMEN: abdomen soft normo-active bowel sounds UPPER EXTREMITIES: upper extremities are grossly normal. LOWER EXTREMITIES: No pitting edema. 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 Pneumonitis, Hypoxic Resp failure, saturation in 80's on high flow NC, refused BIPAP Small Cell Lung Cancer: Stage IV, s/p Chemoradiation complicated by radiation pneumonitis Possible Pneumonia: empirically treating with Vancomycin, Levaquin, Cefepime Chest X-ray: Reviewed, Result: Extensive bilateral airspace opacities which favor bilateral pneumonia. Intubation indicated, plan to discuss with patient, family Blood gas: pH 7.48 pCO2 61 HCO3 28 Repeat Blood gas pH 7.36 pCO2 56 pO2 87 HCO3 31 Cardiovascular: CV drips: Remains off vasoactive medications Rhythm: Sinus EKG: Sinus Tachycardia, QTc 440 Dobutamine Stress ECHO: 01/30/17: Chest pain produced with deep inhalation , Nonischemic PO ASA Fluids/Renal: Hyponatremia IV Fluids: LR 50 mls/hr Em: None GI/Nutrition: Feeding:NPO Prophylaxis: None Endocrine: T2DM Last 24 hour glucose: 106-154 Insulin protocol: Yes; Drip: No hold VitD Hematology: Hemoglobin DVT prophylaxis: Lovenox Infectious Disease/Immunology: Tmax: 38.9 CV Lines (date): Plan for arterial line, CV line today Antimicrobials: Vancomycin day 2? Cefepime 2/? Levaquin 2/? Bactrim 2/? Cultures: Blood: No growth MRSA: negative Resident Physician Supervision Note: Dr. Sanchez was resident physician during care of patient. I separately evaluated patient and did history and exam. I discussed the case with the resident and generally agree with the findings and plan. The patient remains in severe ARDS. We had ordered a CT scan of the chest to see if there was progression of thromboembolic disease given a question of anticoagulation compliance. The patient also injects his Lovenox in the same area and I am concerned for the subcutaneous uptake given repeated injections in the same area. During the movement of the patient from the CT scanner onto the stretcher it was reported to me that the patient's right internal jugular central venous catheter became dislodged. I confirmed with the cast there was displaced removed in its entirety. Subsequently I have placed a left internal jugular central venous catheter. The bilateral lower extremity venous duplex is positive for thrombus in the lower extremities however the deep venous system remains patent. CT scan didn't revealed resolution of his previously noted pulmonary emboli. Given these findings and do not feel that the patient is failing anticoagulation and I do not see a strong indication to proceed with filter placement. Unfortunately the patient's respiratory status has continued to decline and is currently requiring 12 cm of PEEP and FiO2 of 100% maintained acceptable oxygen saturation per ARDS net guidelines. Again I had a gokul discussion with the patient's father and his brother who is his power of state attorney. They were able to supply me with his living Will that indicated in event of an end-stage terminal condition he did not want to undergo heroic measures, artificial hydration or nutrition. Given the severity of the patient's critical illness the likelihood of success from heroic efforts for cardiopulmonary resuscitation should the patient go into cardiac arrest would likely be ineffective. Both his brother and father are in agreement that the patient would not want to under go cardiopulmonary resuscitation in event of cardiac arrest. Patient is also requiring very high doses of sedative medication as well as neuromuscular blockade. As noted that the patient is on methadone, QTc 476, I suspect he rapidly metabolizes his sedatives. He is not a candidate for ECMO given his history of cancer and thromboembolic disease. I feel that the patient is very critically ill and anticipate a poor outcome given the complexity and severity of his lung disease. I have personally spent 95 minutes of critical care time in the direct management of this patient. This is a life/limb threatening event. This includes time spent evaluating patient, direct bedside care, chart review, placing orders, interpretation of diagnostic studies, discussion with consultants, patient, and family members, as well as other required patient management activities. This time is exclusive of all separately billable procedures, and teaching time and separate from and in addition to any other critical care service time. Documented By: Shady Das DO Consults & Procedures Consultants: Pulmonary Procedures: CHEST ONE VIEW PORTABLE CLINICAL HISTORY: ET PLACEMENT COMPARISON STUDY: Chest radiograph February 17, 2017 2:54 PM. FINDINGS: The tip of the endotracheal tube is 3.5 cm above the butch. A right internal jugular central line is unchanged in position. Tip of nasogastric tube is below the lower aspect of the image but at least within the proximal body of the stomach. Dense bilateral consolidation has significantly progressed since study performed this morning. There is no pneumothorax. IMPRESSION: 1. Satisfactory positioning of lines and tubes. 2. Progression of extensive bilateral opacities. This could reflect pneumonia or pulmonary edema. Data Medications: Current Inpatient Medications Medications (Trade) Dose Ordered Sig/Prince Route Start Time Stop Time Status Last Admin Dose Admin Acetaminophen (Tylenol Tab) 650 mg Q4H PRN PO 02/17/17 06:30 03/19/17 06:29 Al Hydrox/Mg Hydrox/Simethicone (Maalox Max Susp) 15 ml Q4H PRN PO 02/17/17 06:30 03/19/17 06:29 Magnesium Hydroxide (Milk Of Magnesia Susp) 30 ml Q12H PRN PO 02/17/17 06:30 03/19/17 06:29 Aspirin (Ecotrin Tab) 325 mg QAM PO 02/18/17 09:00 03/20/17 08:59 Diazepam (Valium Tab) 2 mg BID PRN PO 02/17/17 06:30 03/19/17 06:29 Future Hold 02/17/17 11:52 2 MG Docusate Sodium (coLACE CAP) 100 mg BID PO 02/17/17 09:00 03/19/17 08:59 Enoxaparin Sodium (Lovenox Inj) 120 mg Q12H SQ 02/17/17 09:00 03/19/17 08:59 02/17/17 20:25 120 MG Methadone HCl (Dolophine Tab) 10 mg Q6 PO 02/17/17 12:00 03/03/17 11:59 02/18/17 05:24 10 MG Ondansetron HCl (Zofran Tab) 8 mg Q8 PRN PO 02/17/17 06:30 03/19/17 06:29 Senna/Docusate Sodium (Senokot S Tab) 1 tab QDL PRN PO 02/17/17 06:30 03/19/17 06:29 Cholecalciferol (Vitamin D Tab) 5,000 inter.unit DAILY PO 02/17/17 09:00 03/19/17 08:59 02/17/17 08:45 5,000 INTER.UNIT Polyethylene (Miralax Powder Packet) 17 gm QDL PRN PO 02/17/17 06:30 03/19/17 06:29 Levalbuterol (Xopenex 1.25MG/ 0.5ML Neb) 1.25 mg Q6R PRN INH 02/17/17 06:30 03/19/17 06:29 Levofloxacin 750 mg/Prmx 150 ml @ 100 mls/hr Q24H IV 02/17/17 09:00 02/24/17 08:59 02/17/17 09:57 100 MLS/HR Cefepime HCl 2000 mg/Syringe 20 ml @ 5 mls/min Q8H IV 02/17/17 14:00 02/24/17 13:59 02/18/17 05:24 5 MLS/MIN Vancomycin HCl (Consult) 1 ea UD PRN N/A 02/17/17 08:30 03/19/17 08:29 Vancomycin HCl 2250 mg/Sodium Chloride 545 ml @ 200 mls/hr Q10H IV 02/17/17 14:00 02/24/17 13:59 02/18/17 00:27 200 MLS/HR Midazolam HCl 250 ml @ 0 mls/hr Q0M PRN IV 02/17/17 13:00 03/19/17 12:59 02/18/17 00:46 24 MLS/HR Fentanyl Citrate (Fentanyl Inj) 50 mcg Q2H IV 02/17/17 14:00 03/03/17 13:59 02/17/17 14:00 50 MCG Pantoprazole Sodium 40 mg/ Syringe 10 ml @ 5 mls/min Q24H IV 02/17/17 14:00 03/19/17 13:59 02/17/17 15:47 5 MLS/MIN Trimethoprim/ Sulfamethoxazole 525 mg/Dextrose 532.8125 ml @ 333 mls/hr Q6H IV 02/17/17 16:00 02/24/17 15:59 02/18/17 04:06 333 MLS/HR Acetaminophen 100 ml @ 400 mls/hr Q8H PRN IV 02/17/17 15:15 03/19/17 15:14 Methylprednisolone Sodium Succinate 40 mg/Syringe 0.64 ml @ 1.5 mls/min Q8H IV 02/17/17 16:00 03/19/17 15:14 02/18/17 05:24 1.5 MLS/MIN Fentanyl Citrate 250 ml @ 0 mls/hr Q0M PRN IV 02/17/17 15:15 03/03/17 15:14 02/18/17 03:54 20 MLS/HR Cisatracurium Besylate 40 mg/ Sodium Chloride 100 ml @ 0 mls/hr Q0M PRN IV 02/17/17 15:30 03/19/17 14:59 02/17/17 23:07 12 MLS/HR Enteral Nutritional Formula (Peptamen Intense VHP) 1,000 ml DAILY@1600 OG 02/17/17 16:00 03/19/17 15:59 02/17/17 17:25 1,000 ML Metoprolol Tartrate (Lopressor Iv) 5 mg Q4 PRN IV 02/17/17 16:15 03/19/17 16:14 Propofol (Diprivan Iv Emulsion 100ml Vial) 1 dose UD PRN IV 02/17/17 20:15 02/20/17 20:14 02/17/17 20:22 1 DOSE Insulin Aspart (novoLOG ASPART) SLIDING SCALE P[facility]S [place] 02/17/17 21:00 03/19/17 20:59 Insulin Human Regular 250 units/ Sodium Chloride 252.5 ml @ 0 mls/hr Q24H IV 02/17/17 21:15 03/19/17 21:14 02/17/17 21:47 3.4 MLS/HR Lactated Ringer's 1,000 ml @ 50 mls/hr Q20H IV 02/17/17 21:30 03/19/17 21:29 02/17/17 21:48 50 MLS/HR Heparin Sodium (Porcine) (Heparin 10 Unit/ ml 5 ml Flush) 5 ml PRN PRN FLUSH 02/18/17 00:30 03/20/17 00:29 Acetaminophen 100 ml @ 400 mls/hr Q8H PRN IV 02/18/17 04:45 03/20/17 04:44 Vital Signs: Date Time Temp Pulse Resp B/P (MAP) Pulse Ox O2 Delivery O2 Flow Rate FiO2 02/18/17 05:32 36.6 02/18/17 04:00 97 Mechanical Ventilator 02/18/17 04:00 100 02/18/17 03:16 80 20 111/61 (78) 90 116/62 (80) 02/18/17 03:03 85 21 136/66 (89) 89 02/18/17 03:00 35.9 87 22 133/66 (88) 89 02/18/17 02:31 36.1 86 16 136/70 (92) 85 02/18/17 02:16 36.1 72 20 93/55 (68) 93 02/18/17 02:15 70 02/18/17 02:01 36.2 70 21 93/56 (68) 93 02/18/17 02:00 36.2 71 20 96/56 (69) 94 02/18/17 01:46 36.3 72 20 91/55 (67) 94 02/18/17 01:31 36.4 73 20 93/55 (68) 94 02/18/17 01:16 36.5 76 22 93/55 (68) 94 02/18/17 01:01 36.6 76 21 100/57 (71) 93 02/18/17 01:00 36.7 76 20 101/58 (72) 94 02/18/17 00:46 36.8 79 21 95/56 (69) 94 02/18/17 00:31 37.0 79 21 95/56 (69) 94 02/18/17 00:16 37.2 81 22 100/58 (72) 93 02/18/17 00:01 37.4 81 21 93/55 (68) 93 02/18/17 00:00 97 Mechanical Ventilator 02/18/17 00:00 100 02/18/17 00:00 37.5 82 21 93/54 (67) 94 02/17/17 23:56 70 02/17/17 22:31 38.6 86 20 101/59 (73) 92 02/17/17 22:01 38.8 91 18 99/62 (74) 92 02/17/17 22:00 38.8 91 20 102/62 (75) 93 02/17/17 21:18 100 02/17/17 21:16 38.9 90 16 105/60 (75) 97 02/17/17 21:01 38.9 90 15 105/60 (75) 96 02/17/17 21:00 38.9 90 19 114/62 (79) 97 02/17/17 20:46 38.9 93 22 112/62 (79) 97 02/17/17 20:31 38.9 93 18 84/71 (75) 95 02/17/17 20:16 38.8 91 17 112/65 (81) 95 02/17/17 20:01 38.8 93 15 108/67 (81) 97 02/17/17 20:00 100 02/17/17 20:00 97 Mechanical Ventilator 02/17/17 20:00 38.8 93 16 109/67 (81) 97 02/17/17 19:47 90 02/17/17 19:46 38.8 92 21 103/67 (79) 96 02/17/17 19:31 38.8 93 20 104/66 (79) 96 02/17/17 19:16 38.8 97 23 101/91 (94) 96 02/17/17 19:01 38.8 99 22 106/67 (80) 95 02/17/17 19:00 38.8 99 20 111/71 (84) 94 02/17/17 17:57 100 02/17/17 17:01 38.3 97 16 112/77 (80) 95 90/68 02/17/17 17:01 38.3 97 16 112/77 (80) 95 90/68 02/17/17 17:00 38.3 96 20 (88) 89 100/76 02/17/17 17:00 38.3 96 20 (88) 89 100/76 02/17/17 16:46 95 15 106/71 (86) 100 02/17/17 16:46 95 15 106/71 (86) 100 02/17/17 16:46 95 15 106/71 (83) 100 02/17/17 16:45 95 16 100 02/17/17 16:45 95 16 100 02/17/17 16:31 96 20 106/71 (83) 100 02/17/17 16:31 96 20 106/71 (82) 100 02/17/17 16:30 98 17 100 02/17/17 16:16 118 21 111/73 (91) 100 02/17/17 16:16 118 21 111/73 (86) 100 02/17/17 16:15 119 23 100 02/17/17 16:13 141 174/103 02/17/17 16:01 124 20 112/69 (83) 100 02/17/17 16:01 124 20 112/69 (74) 100 02/17/17 16:00 100 02/17/17 16:00 82 Mechanical Ventilator 100 02/17/17 16:00 121 21 100 02/17/17 16:00 121 21 100 02/17/17 15:46 124 23 110/73 (81) 100 02/17/17 15:46 124 23 110/73 (85) 100 02/17/17 15:46 124 23 110/73 (81) 100 02/17/17 15:45 124 18 100 02/17/17 15:31 128 26 118/76 (90) 100 02/17/17 15:31 128 26 118/76 (84) 100 02/17/17 15:16 141 18 174/103 (126) 83 02/17/17 15:16 141 18 174/103 (137) 83 02/17/17 15:00 134 23 100 02/17/17 15:00 134 23 100 02/17/17 14:45 100 02/17/17 14:31 132 14 161/84 (109) 86 02/17/17 14:31 132 14 161/84 (109) 86 02/17/17 14:16 129 14 159/89 (116) 84 02/17/17 14:16 129 14 159/89 (112) 84 02/17/17 14:01 129 14 146/85 (106) 83 02/17/17 14:01 129 14 146/85 (105) 83 02/17/17 14:00 130 14 82 02/17/17 14:00 130 14 82 02/17/17 13:46 125 14 145/85 (95) 82 02/17/17 13:44 123 14 144/84 (104) 81 02/17/17 13:31 124 30 163/92 (125) 71 02/17/17 13:16 115 25 110/74 (80) 81 02/17/17 13:01 114 23 125/73 (97) 82 02/17/17 13:00 113 20 80 02/17/17 13:00 113 20 80 02/17/17 07:56 37.0 117 24 123/71 88 Non-Rebreather 15.0 02/17/17 07:09 37.4 107 19 111/68 92 Non-Rebreather 15.0 02/17/17 06:31 106 18 109/70 91 Non-Rebreather Laboratory Results: Last 24 Hours Test 02/17/17 06:17 02/17/17 09:02 02/17/17 10:15 02/17/17 11:07 Bedside Glucose 133 mg/dl 208 mg/dl 173 mg/dl Urine Color YELLOW Urine Appearance CLEAR Urine pH 6.0 Urine Specific [place] 1.026 Urine Protein 1+ Urine Glucose (UA) NEG Urine Ketones NEG Urine Occult Blood NEG Urine Nitrite NEG Urine Bilirubin NEG Urine Urobilinogen NEG Urine Leukocyte Esterase NEG Urine WBC (Auto) 1-5 /hpf Urine RBC (Auto) 0-4 /hpf Urine Hyaline Casts (Auto) 1-5 /lpf Urine Epithelial Cells (Auto) 10-20 /lpf Urine Bacteria (Auto) NEG Test 02/17/17 14:43 02/17/17 15:57 02/17/17 16:36 02/17/17 16:40 Blood Gas Sample Site Art Line Bedside Blood Gas pH (LAB) 7.09 Bedside Blood Gas pCO2 (LAB) 105 mmHg Bedside Blood Gas pO2 (LAB) 77 mmHg Bedside Blood Gas HCO3 (LAB) 31 meq/L Bedside Blood Gas Total CO2 34 mEq/l Bedside Blood Gas Base Excess (LAB) 1.0 meq/L Bedside Blood Gas O2 Saturation 85.0 % Devin Test NA Oxygen Delivery Device Ventilator Bedside Oxygen Rate (breaths/min) 14 Blood Gas Minute Ventilation 7.7 Bedside FiO2 100 % Blood Gas Tidal Volume 550 Blood Gas PEEP 12 Heparin Anti-Xa Act, Low Molec Wt 0.57 IU/ML Bedside Glucose 218 mg/dl Influenza Type A (RT-PCR) Neg for Influ A Influenza Type B (RT-PCR) Neg for Influ B Test 02/17/17 19:29 02/17/17 20:09 02/17/17 22:22 02/17/17 22:54 Blood Gas Sample Site Art Line Art Line Bedside Blood Gas pH (LAB) 7.34 7.37 Bedside Blood Gas pCO2 (LAB) 62 mmHg 52 mmHg Bedside Blood Gas pO2 (LAB) 126 mmHg 84 mmHg Bedside Blood Gas HCO3 (LAB) 33 meq/L 29 meq/L Bedside Blood Gas Total CO2 35 mEq/l 31 mEq/l Bedside Blood Gas Base Excess (LAB) 7.0 meq/L 4.0 meq/L Bedside Blood Gas O2 Saturation 98.0 % 95.0 % Devin Test NA NA Oxygen Delivery Device Ventilator Ventilator Bedside Oxygen Rate (breaths/min) 20 21 Blood Gas Minute Ventilation 12.5 13 Bedside FiO2 100 % 70 % Blood Gas Tidal Volume 550 531 Blood Gas PEEP 15 14 Bedside Glucose 288 mg/dl 294 mg/dl Test 02/18/17 00:22 02/18/17 01:08 02/18/17 02:07 02/18/17 02:17 Bedside Glucose 272 mg/dl 278 mg/dl 225 mg/dl Blood Gas Sample Site Art Line Bedside Blood Gas pH (LAB) 7.36 Bedside Blood Gas pCO2 (LAB) 56 mmHg Bedside Blood Gas pO2 (LAB) 87 mmHg Bedside Blood Gas HCO3 (LAB) 31 meq/L Bedside Blood Gas Total CO2 33 mEq/l Bedside Blood Gas Base Excess (LAB) 6.0 meq/L Bedside Blood Gas O2 Saturation 95.0 % Devin Test NA Oxygen Delivery Device Ventilator Bedside Oxygen Rate (breaths/min) 20 Blood Gas Minute Ventilation 11.1 Bedside FiO2 70 % Blood Gas Tidal Volume 550 Blood Gas PEEP 14 Test 02/18/17 03:12 02/18/17 04:03 02/18/17 04:44 02/18/17 05:00 Bedside Glucose 187 mg/dl 144 mg/dl 202 mg/dl Resident Tracking Resident Involvement: Resident Care Provided Care Provided: Adult Hospital Medicine
[2017-02-18] MEDS: CISATRACURIUM BESYLATE INJ 40 MG in SODIUM CHLORIDE 0.9% 100ML 80 ML IV PRN ×2 (06:07→20:21)
[2017-02-18] MEDS: PROPOFOL IV EMULSION 10 MG/ML 100 ML VIAL IV PRN ×2 (06:08→21:55)
[2017-02-18 07:00] LABS: ALBUMIN 1.3 gm/dl (3.4-5.0); ALKALINE PHOSPHATASE 75 U/L (45-117); ALT/SGPT 16 U/L (12-78); AST/SGOT 50 U/L (15-37); BLOOD UREA NITROGEN 15 mg/dl (7-18); CARBON DIOXIDE 23 mmol/L (21-32); CREATININE 0.57 mg/dl (0.60-1.40); GLUCOSE 154 mg/dl (70-99); PHOSPHORUS 2.7 mg/dl (2.5-4.9); SODIUM 136 mmol/L (136-145); TOTAL PROTEIN 4.9 gm/dl (6.4-8.2)
[2017-02-18 07:08] LABS: CALCIUM 7.4 mg/dl (8.5-10.1)
[2017-02-18 07:20] LABS: HEMATOCRIT 26.7 % (42-52); HEMOGLOBIN 8.1 g/dL (14.0-18.0); IG# 0.05 K/uL (0.00-0.02); LYMPH % 2.9 %; LYMPH ABS # 0.24 K/uL (1.2-3.4); MEAN CELL VOLUME 94.7 fL (80-100); MEAN CORPUSCULAR HEMOGLOBIN 28.7 pg (25-34); MEAN PLATELET VOLUME 10.1 fL (7.4-10.4); MONO % 2.4 %; NEUT % 94.1 %; NEUT ABS # 7.82 K/uL (1.4-6.5); PLATELET COUNT 195 K/uL (130-400); RED CELL DISTRIBUTION WIDTH CV 17.6 % (11.5-14.5); RED CELL DISTRIBUTION WIDTH SD 61.2 fL (36.4-46.3); WHITE BLOOD COUNT 8.31 K/uL (4.8-10.8)
[2017-02-18 07:22] LABS: MEAN CORPUSCULAR HGB CONC 30.3 g/dl (32-36)
[2017-02-18] MEDS ORDERED: ACETAMINOPHEN IV 1,000 MG in EMPTY BAG 0 ML IV PRN (08:00)
[2017-02-18] MEDS: INSULIN ASPART 100 UNITS/ML 3 ML PEN SC SCH ×4 (08:00→20:40)
--- NOTE | 2017-02-18 08:19 | DIAGNOSTIC IMAGING REPORT ---
CHEST ONE VIEW PORTABLE HISTORY: Intubated COMPARISON: Chest 02/17/2017. FINDINGS: The endotracheal tube terminates 4.5 cm from the butch. The nasogastric tube terminates below the diaphragm. No pneumothorax. Bilateral airspace opacities have slightly improved. Small bilateral pleural effusions. The heart remains enlarged. IMPRESSION: 1. Satisfactory support line placement. 2. Slight improved aeration the extensive bilateral airspace opacities. Electronically signed by: Jace Ceballos M.D. 02/18/2017 8:18 AM Dictated Date/Time: 02/18/2017 8:17 AM
[2017-02-18] MEDS: LEVOFLOXACIN / D5W 750 MG in PREMIXED IN D5W 150 ML IV SCH (08:44)
[2017-02-18] MEDS: ENOXAPARIN 120 MG/0.8 ML SYR SQ SCH ×2 (08:45→20:28)
[2017-02-18] MEDS: CHOLECALCIFEROL 1000 INTER.UNIT TAB PO SCH (09:00)
[2017-02-18] MEDS: ASPIRIN 325 MG ECTAB PO SCH (09:00)
[2017-02-18] MEDS: DOCUSATE SODIUM 100 MG/10 ML UDC NG SCH ×2 (09:00→20:52)
--- NOTE | 2017-02-18 09:02 | Progress Note ---
Medicine Progress Note Date & Time of Visit: Feb 18, 2017 at 08:00 . Subjective Transferred to ICU yesterday due to worsening respiratory status. Intubated and placed on mechanical ventilation. Bronchoscopy performed after intubation. Has required high FiO2 and PEEP to maintain adequate oxygenation. Sedated. Appears to be comfortable. . Objective Last 8 Hrs Date Time Temp Pulse Resp B/P (MAP) Pulse Ox O2 Delivery O2 Flow Rate FiO2 02/18/17 07:20 70 02/18/17 05:50 70 02/18/17 05:32 36.6 02/18/17 04:00 97 Mechanical Ventilator 02/18/17 04:00 100 02/18/17 03:16 80 20 111/61 (78) 90 116/62 (80) 02/18/17 03:03 85 21 136/66 (89) 89 02/18/17 03:00 35.9 87 22 133/66 (88) 89 02/18/17 02:31 36.1 86 16 136/70 (92) 85 02/18/17 02:16 36.1 72 20 93/55 (68) 93 02/18/17 02:15 70 02/18/17 02:01 36.2 70 21 93/56 (68) 93 02/18/17 02:00 36.2 71 20 96/56 (69) 94 02/18/17 01:46 36.3 72 20 91/55 (67) 94 02/18/17 01:31 36.4 73 20 93/55 (68) 94 02/18/17 01:16 36.5 76 22 93/55 (68) 94 02/18/17 01:01 36.6 76 21 100/57 (71) 93 02/18/17 01:00 36.7 76 20 101/58 (72) 94 Physical Exam: General- appears to be comfortable ENT- oral ET tube; oral GT Neck- right internal jugular catheter Lungs- breath sounds equal, coarse, few scattered rhonchi, diffuse wheezing Heart- regular rate and rhythm, no murmur or gallop appreciated Abdomen- quiet, soft, nontender Extremities- 1+ pretibial edema Neuro- sedated . Laboratory Results: Last 24 Hours Test 02/17/17 09:02 02/17/17 10:15 02/17/17 11:07 02/17/17 14:43 Bedside Glucose 208 mg/dl 173 mg/dl Urine Color YELLOW Urine Appearance CLEAR Urine pH 6.0 Urine Specific Bazine 1.026 Urine Protein 1+ Urine Glucose (UA) NEG Urine Ketones NEG Urine Occult Blood NEG Urine Nitrite NEG Urine Bilirubin NEG Urine Urobilinogen NEG Urine Leukocyte Esterase NEG Urine WBC (Auto) 1-5 /hpf Urine RBC (Auto) 0-4 /hpf Urine Hyaline Casts (Auto) 1-5 /lpf Urine Epithelial Cells (Auto) 10-20 /lpf Urine Bacteria (Auto) NEG Blood Gas Sample Site Art Line Bedside Blood Gas pH (LAB) 7.09 Bedside Blood Gas pCO2 (LAB) 105 mmHg Bedside Blood Gas pO2 (LAB) 77 mmHg Bedside Blood Gas HCO3 (LAB) 31 meq/L Bedside Blood Gas Total CO2 34 mEq/l Bedside Blood Gas Base Excess (LAB) 1.0 meq/L Bedside Blood Gas O2 Saturation 85.0 % Devin Test NA Oxygen Delivery Device Ventilator Bedside Oxygen Rate (breaths/min) 14 Blood Gas Minute Ventilation 7.7 Bedside FiO2 100 % Blood Gas Tidal Volume 550 Blood Gas PEEP 12 Test 02/17/17 15:57 02/17/17 16:36 02/17/17 16:40 02/17/17 19:29 Heparin Anti-Xa Act, Low Molec Wt 0.57 IU/ML Bedside Glucose 218 mg/dl Influenza Type A (RT-PCR) Neg for Influ A Influenza Type B (RT-PCR) Neg for Influ B Blood Gas Sample Site Art Line Bedside Blood Gas pH (LAB) 7.34 Bedside Blood Gas pCO2 (LAB) 62 mmHg Bedside Blood Gas pO2 (LAB) 126 mmHg Bedside Blood Gas HCO3 (LAB) 33 meq/L Bedside Blood Gas Total CO2 35 mEq/l Bedside Blood Gas Base Excess (LAB) 7.0 meq/L Bedside Blood Gas O2 Saturation 98.0 % Devin Test NA Oxygen Delivery Device Ventilator Bedside Oxygen Rate (breaths/min) 20 Blood Gas Minute Ventilation 12.5 Bedside FiO2 100 % Blood Gas Tidal Volume 550 Blood Gas PEEP 15 Test 02/17/17 20:09 02/17/17 22:22 02/17/17 22:54 02/18/17 00:22 Bedside Glucose 288 mg/dl 294 mg/dl 272 mg/dl Blood Gas Sample Site Art Line Bedside Blood Gas pH (LAB) 7.37 Bedside Blood Gas pCO2 (LAB) 52 mmHg Bedside Blood Gas pO2 (LAB) 84 mmHg Bedside Blood Gas HCO3 (LAB) 29 meq/L Bedside Blood Gas Total CO2 31 mEq/l Bedside Blood Gas Base Excess (LAB) 4.0 meq/L Bedside Blood Gas O2 Saturation 95.0 % Devin Test NA Oxygen Delivery Device Ventilator Bedside Oxygen Rate (breaths/min) 21 Blood Gas Minute Ventilation 13 Bedside FiO2 70 % Blood Gas Tidal Volume 531 Blood Gas PEEP 14 Test 02/18/17 01:08 02/18/17 02:07 02/18/17 02:17 02/18/17 03:12 Bedside Glucose 278 mg/dl 225 mg/dl 187 mg/dl Blood Gas Sample Site Art Line Bedside Blood Gas pH (LAB) 7.36 Bedside Blood Gas pCO2 (LAB) 56 mmHg Bedside Blood Gas pO2 (LAB) 87 mmHg Bedside Blood Gas HCO3 (LAB) 31 meq/L Bedside Blood Gas Total CO2 33 mEq/l Bedside Blood Gas Base Excess (LAB) 6.0 meq/L Bedside Blood Gas O2 Saturation 95.0 % Devin Test NA Oxygen Delivery Device Ventilator Bedside Oxygen Rate (breaths/min) 20 Blood Gas Minute Ventilation 11.1 Bedside FiO2 70 % Blood Gas Tidal Volume 550 Blood Gas PEEP 14 Test 02/18/17 04:03 02/18/17 05:00 02/18/17 05:56 02/18/17 06:02 Bedside Glucose 144 mg/dl 202 mg/dl 202 mg/dl Sodium Level 136 mmol/L Potassium Level 4.0 mmol/L Chloride Level 107 mmol/L Carbon Dioxide Level 23 mmol/L Anion Gap 6.0 mmol/L Blood Urea Nitrogen 15 mg/dl Creatinine 0.57 mg/dl Est Creatinine Clear Calc Drug Dose 220.2 ml/min Estimated GFR () 134.9 Estimated GFR (Non- 116.4 BUN/Creatinine Ratio 26.8 Random Glucose 154 mg/dl Calcium Level 7.4 mg/dl Phosphorus Level 2.7 mg/dl Magnesium Level 2.0 mg/dl Total Bilirubin 0.2 mg/dl Direct Bilirubin mg/dl Aspartate Amino Transf (AST/SGOT) 50 U/L Alanine Aminotransferase (ALT/SGPT) 16 U/L Alkaline Phosphatase 75 U/L Total Protein 4.9 gm/dl Albumin 1.3 gm/dl Test 02/18/17 06:05 02/18/17 07:08 02/18/17 08:18 Blood Gas Sample Site Art Line Bedside Blood Gas pH (LAB) 7.34 Bedside Blood Gas pCO2 (LAB) 56 mmHg Bedside Blood Gas pO2 (LAB) 66 mmHg Bedside Blood Gas HCO3 (LAB) 30 meq/L Bedside Blood Gas Total CO2 32 mEq/l Bedside Blood Gas Base Excess (LAB) 4.0 meq/L Bedside Blood Gas O2 Saturation 91.0 % Devin Test NA Oxygen Delivery Device Ventilator Bedside Oxygen Rate (breaths/min) 20 Blood Gas Minute Ventilation 10.9 Bedside FiO2 70 % Blood Gas Tidal Volume 550 Blood Gas PEEP 12 White Blood Count 8.31 K/uL Red Blood Count 2.82 M/uL Hemoglobin 8.1 g/dL Hematocrit 26.7 % Mean Corpuscular Volume 94.7 fL Mean Corpuscular Hemoglobin 28.7 pg Mean Corpuscular Hemoglobin Concent 30.3 g/dl Platelet Count 195 K/uL Mean Platelet Volume 10.1 fL Neutrophils (%) (Auto) 94.1 % Lymphocytes (%) (Auto) 2.9 % Monocytes (%) (Auto) 2.4 % Eosinophils (%) (Auto) 0.0 % Basophils (%) (Auto) 0.0 % Neutrophils # (Auto) 7.82 K/uL Lymphocytes # (Auto) 0.24 K/uL Monocytes # (Auto) 0.20 K/uL Eosinophils # (Auto) 0.00 K/uL Basophils # (Auto) 0.00 K/uL RDW Standard Deviation 61.2 fL RDW Coefficient of Variation 17.6 % Immature Granulocyte % (Auto) 0.6 % Immature Granulocyte # (Auto) 0.05 K/uL Polychromasia 1+ Tear Drop Cells 1+ Bedside Glucose 135 mg/dl Date/Time Source Procedure Growth Status 02/18/17 02:30 Sputum Expectorated Sputum Gram Stain Pending Received 02/18/17 02:30 Sputum Expectorated Sputum Sputum Culture Pending Received 02/17/17 20:00 Bronchial Washings Left Upper Lobe Fungal Smear Pending Received 02/17/17 20:00 Bronchial Washings Left Upper Lobe Fungal Culture Pending Received 02/17/17 20:00 Bronchial Washings Left Upper Lobe Acid Fast Stain Pending Received 02/17/17 20:00 Bronchial Washings Left Upper Lobe Mycobacterial Culture Pending Received 02/17/17 20:00 Bronchial Washings Left Upper Lobe Gram Stain Pending Received 02/17/17 20:00 Bronchial Washings Left Upper Lobe Bronchoalveolar Lavage Culture Pending Received 02/17/17 20:00 Bronchial Washings Right Middle Lobe Fungal Smear Pending Received 02/17/17 20:00 Bronchial Washings Right Middle Lobe Fungal Culture Pending Received 02/17/17 20:00 Bronchial Washings Right Middle Lobe Acid Fast Stain Pending Received 02/17/17 20:00 Bronchial Washings Right Middle Lobe Mycobacterial Culture Pending Received 02/17/17 20:00 Bronchial Washings Right Middle Lobe Gram Stain Pending Received 02/17/17 20:00 Bronchial Washings Right Middle Lobe Bronchoalveolar Lavage Culture Pending Received Diagnostic Imaging: CHEST ONE VIEW PORTABLE HISTORY: Intubated FINDINGS: The endotracheal tube terminates 4.5 cm from the butch. The nasogastric tube terminates below the diaphragm. No pneumothorax. Bilateral airspace opacities have slightly improved. Small bilateral pleural effusions. The heart remains enlarged. IMPRESSION: 1. Satisfactory support line placement. 2. Slight improved aeration the extensive bilateral airspace opacities. Electronically signed by: Jace Ceballos M.D. 02/18/2017 8:18 AM Dictated Date/Time: 02/18/2017 8:17 AM . Assessment & Plan PULMONARY Acute hypoxic respiratory failure requiring intubation and mechanical ventilation. Contributing factors may include infection, ARDS, progressive small cell carcinoma lung, recent pulmonary embolism, suspected radiation pneumonitis. Bronchoscopy performed 02/17-results pending. Receiving broad-spectrum antibiotics and intravenous methylprednisolone. Management per CCM and Pulmonary Medicine. CARDIAC Hemodynamically stable. Recent dobutamine stress echo on 02/08/17 demonstrated normal left upper wall motion and function, no stress-induced ischemia, no pericardial effusion. RENAL / LYTES Serum creatinine stable at 0.57. Electrolytes normal. GI / NUTRITION Receiving pantoprazole for GI prophylaxis. Receiving enteral nutrition via GT. ENDOCRINE Diabetes mellitus usually well-controlled on patient's regimen. Hemoglobin A1c 6.4 on 01/31/17. Now critically ill, receiving glucocorticoid therapy. Serum glucose this morning 202. Glycemic management per protocol. HEME / ONCOLOGY Hemoglobin 8.1. Anemia multifactorial. No further GI bleeding. 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 VTE PROPHYLAXIS Receiving therapeutic dosing of enoxaparin due to prior history of VTE. DISPOSITION Critically ill. Discharge disposition to be determined. . Consultants: Pulmonary Medicine Critical Care Medicine Medical Oncology . Procedures: cardiac monitoring endotracheal intubation mechanical ventilation right internal jugular central venous catheter arterial line IV medications . Current Inpatient Medications: Current Inpatient Medications Medications (Trade) Dose Ordered Sig/Rpince Route Start Time Stop Time Status Last Admin Dose Admin Acetaminophen (Tylenol Tab) 650 mg Q4H PRN PO 02/17/17 06:30 03/19/17 06:29 Al Hydrox/Mg Hydrox/Simethicone (Maalox Max Susp) 15 ml Q4H PRN PO 02/17/17 06:30 03/19/17 06:29 Magnesium Hydroxide (Milk Of Magnesia Susp) 30 ml Q12H PRN PO 02/17/17 06:30 03/19/17 06:29 Aspirin (Ecotrin Tab) 325 mg QAM PO 02/18/17 09:00 03/20/17 08:59 Diazepam (Valium Tab) 2 mg BID PRN PO 02/17/17 06:30 03/19/17 06:29 Future Hold 02/17/17 11:52 2 MG Enoxaparin Sodium (Lovenox Inj) 120 mg Q12H SQ 02/17/17 09:00 03/19/17 08:59 02/18/17 08:45 120 MG Methadone HCl (Dolophine Tab) 10 mg Q6 PO 02/17/17 12:00 03/03/17 11:59 02/18/17 05:24 10 MG Ondansetron HCl (Zofran Tab) 8 mg Q8 PRN PO 02/17/17 06:30 03/19/17 06:29 Senna/Docusate Sodium (Senokot S Tab) 1 tab QDL PRN PO 02/17/17 06:30 03/19/17 06:29 Cholecalciferol (Vitamin D Tab) 5,000 inter.unit DAILY PO 02/17/17 09:00 03/19/17 08:59 02/17/17 08:45 5,000 INTER.UNIT Polyethylene (Miralax Powder Packet) 17 gm QDL PRN PO 02/17/17 06:30 03/19/17 06:29 Levalbuterol (Xopenex 1.25MG/ 0.5ML Neb) 1.25 mg Q6R PRN INH 02/17/17 06:30 03/19/17 06:29 Levofloxacin 750 mg/Prmx 150 ml @ 100 mls/hr Q24H IV 02/17/17 09:00 02/24/17 08:59 02/18/17 08:44 100 MLS/HR Cefepime HCl 2000 mg/Syringe 20 ml @ 5 mls/min Q8H IV 02/17/17 14:00 02/24/17 13:59 02/18/17 05:24 5 MLS/MIN Vancomycin HCl (Consult) 1 ea UD PRN N/A 02/17/17 08:30 03/19/17 08:29 Vancomycin HCl 2250 mg/Sodium Chloride 545 ml @ 200 mls/hr Q10H IV 02/17/17 14:00 02/24/17 13:59 02/18/17 00:27 200 MLS/HR Midazolam HCl 250 ml @ 0 mls/hr Q0M PRN IV 02/17/17 13:00 03/19/17 12:59 02/18/17 00:46 24 MLS/HR Fentanyl Citrate (Fentanyl Inj) 50 mcg Q2H IV 02/17/17 14:00 03/03/17 13:59 02/17/17 14:00 50 MCG Pantoprazole Sodium 40 mg/ Syringe 10 ml @ 5 mls/min Q24H IV 02/17/17 14:00 03/19/17 13:59 02/17/17 15:47 5 MLS/MIN Trimethoprim/ Sulfamethoxazole 525 mg/Dextrose 532.8125 ml @ 333 mls/hr Q6H IV 02/17/17 16:00 02/24/17 15:59 02/18/17 04:06 333 MLS/HR Acetaminophen 100 ml @ 400 mls/hr Q8H PRN IV 02/17/17 15:15 03/19/17 15:14 Methylprednisolone Sodium Succinate 40 mg/Syringe 0.64 ml @ 1.5 mls/min Q8H IV 02/17/17 16:00 03/19/17 15:14 02/18/17 05:24 1.5 MLS/MIN Fentanyl Citrate 250 ml @ 0 mls/hr Q0M PRN IV 02/17/17 15:15 03/03/17 15:14 02/18/17 03:54 20 MLS/HR Cisatracurium Besylate 40 mg/ Sodium Chloride 100 ml @ 0 mls/hr Q0M PRN IV 02/17/17 15:30 03/19/17 14:59 02/18/17 06:07 15.6 MLS/HR Enteral Nutritional Formula (Peptamen Intense VHP) 1,000 ml DAILY@1600 OG 02/17/17 16:00 03/19/17 15:59 02/17/17 17:25 1,000 ML Metoprolol Tartrate (Lopressor Iv) 5 mg Q4 PRN IV 02/17/17 16:15 03/19/17 16:14 Propofol (Diprivan Iv Emulsion 100ml Vial) 1 dose UD PRN IV 02/17/17 20:15 02/20/17 20:14 02/18/17 06:08 1 DOSE Insulin Aspart (novoLOG ASPART) SLIDING SCALE [facility] 02/17/17 21:00 03/19/17 20:59 Insulin Human Regular 250 units/ Sodium Chloride 252.5 ml @ 0 mls/hr Q24H IV 02/17/17 21:15 03/19/17 21:14 02/17/17 21:47 3.4 MLS/HR Lactated Ringer's 1,000 ml @ 50 mls/hr Q20H IV 02/17/17 21:30 03/19/17 21:29 02/17/17 21:48 50 MLS/HR Heparin Sodium (Porcine) (Heparin 10 Unit/ ml 5 ml Flush) 5 ml PRN PRN FLUSH 02/18/17 00:30 03/20/17 00:29 Acetaminophen 100 ml @ 400 mls/hr Q8H PRN IV 02/18/17 04:45 03/20/17 04:44 Docusate Sodium (coLACE SYRUP) 100 mg BID NG 02/18/17 09:00 03/20/17 08:59
[2017-02-18] MEDS ORDERED: VANCOMYCIN TROUGH ONE (09:30)
[2017-02-18 09:40] LABS: RETIC COUNT % 2.4 % (0.5-2.0)
[2017-02-18] MEDS ORDERED: OPTIRAY 320 IV PRN (09:45)
--- NOTE | 2017-02-18 10:54 | DIAGNOSTIC IMAGING REPORT ---
HEAD CT NONCONTRAST CT DOSE: 1642.70 mGy.cm HISTORY: neuromuscular blockade TECHNIQUE: Multiaxial CT images of the head were performed without the use of intravenous contrast. Automated exposure control was utilized for this study. A dose lowering technique was utilized adhering to the principles of ALARA. Comparison: None. Findings: The paranasal sinuses and mastoid air cells are clear. The calvarium and skull base are intact. There is no mass, hematoma, midline shift, acute infarct. A small focal area of encephalomalacia within the left frontal lobe consistent with an old infarct. Impression: No acute intracranial abnormality. 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 Electronically signed by: Jace Ceballos M.D. 02/18/2017 10:52 AM Dictated Date/Time: 02/18/2017 10:50 AM
--- NOTE | 2017-02-18 11:19 | DIAGNOSTIC IMAGING REPORT ---
CHEST CTA for PULMONARY ARTERIES CT DOSE: HISTORY: Atypical chest pain. Short of breath. TECHNIQUE: Multiaxial CT images of the chest were performed following the intravenous administration of contrast to evaluate the pulmonary arteries. Maximal intensity projection images were also obtained. A dose lowering technique was utilized adhering to the principles of ALARA. COMPARISON STUDY: Chest 02/18/2017. Chest CTA 01/30/2017. FINDINGS: Normal caliber thoracic aorta with no evidence for dissection. The heart is normal in size. Trace left pleural effusion. Nasogastric tube terminates in the stomach. The endotracheal tube terminates 4.2 cm from the butch. The majority of the segmental and subsegmental pulmonary arteries are nondiagnostic due to the respiratory motion artifact, streak artifact from the patient's overlapping arms, and consolidation within the bilateral lungs. However, the remaining pulmonary arteries show no filling defects to suggest pulmonary embolus. Mild right paratracheal lymphadenopathy remains unchanged. Trace pericardial effusion. Anterior mediastinal ill-defined soft tissue density surrounding the aortic arch remains unchanged. This results in mild mass effect along the left main pulmonary artery. Confluent left hilar mass/lymphadenopathy persists. The visualized liver and spleen are unremarkable. No acute fractures within the visualized osseous structures. No pneumothorax. Mild emphysema. Small amount of mucoid material within the trachea. Remaining central airways are patent. Extensive bilateral glass consolidative airspace opacities again noted. These have progressed since the 01/30/[address] would of slightly improved compared to yesterday's chest x-ray. IMPRESSION: 1. No evidence for pulmonary embolus with limitations as described above. 2. Satisfactory support line placement. 3. Extensive bilateral airspace opacities have progressed compared to the 01/30/[address] but have slightly improved compared to yesterday's chest x-ray. 4. Ill-defined soft tissue density within the anterior mediastinum surrounding the aortic arch and confluent lymphadenopathy/mass at the left hilum is again noted. This is not significantly change. Electronically signed by: Jace Ceballos M.D. 02/18/2017 11:18 AM Dictated Date/Time: 02/18/2017 10:54 AM
[2017-02-18] MEDS ORDERED: MIDAZOLAM HCL 5 MG/ML 1 ML VIAL ONE (11:22)
--- NOTE | 2017-02-18 11:49 | DIAGNOSTIC IMAGING REPORT ---
CHEST ONE VIEW PORTABLE HISTORY: Central line placement. COMPARISON: Chest 02/18/2017. FINDINGS: Interval placement of left jugular central venous catheter. The tip terminates in the expected location of the proximal SVC. No pneumothorax. Endotracheal tube terminates 3.1 cm from the butch. Nasogastric tube terminates below the diaphragm. Small left pleural effusion persists. Bilateral airspace opacities remain unchanged. The heart remains mildly enlarged. Emphysema. IMPRESSION: 1. Satisfactory support line placement. 2. No pneumothorax. 3. Bilateral airspace opacities persist. Electronically signed by: Jace Ceballos M.D. 02/18/2017 11:48 AM Dictated Date/Time: 02/18/2017 11:47 AM
--- NOTE | 2017-02-18 13:00 | Pharmacy Progress Note ---
Pharmacy Antibiotic Prog Note Date of Service Feb 18, 2017. Subjective The patient is currently receiving vancomycin 2250 mg IV every 10 hours. The patient is currently on day # 2 of vancomycin IV therapy. Objective Height (Feet): 6 Height (Inches): 3.00 Weight (Kilograms): 135.900 Lab Results (24hrs): Test 02/17/17 15:57 02/17/17 16:40 02/18/17 02:07 02/18/17 05:56 Heparin Anti-Xa Act, Low Molec Wt 0.57 IU/ML (0 - <0.10) Influenza Type A (RT-PCR) Neg for Influ A (NEG) Influenza Type B (RT-PCR) Neg for Influ B (NEG) Blood Gas Sample Site Art Line Bedside Blood Gas pH (LAB) 7.36 (7.35-7.45) Bedside Blood Gas pCO2 (LAB) 56 mmHg (35-46) Bedside Blood Gas pO2 (LAB) 87 mmHg (80-95) Bedside Blood Gas HCO3 (LAB) 31 meq/L (19-24) Bedside Blood Gas Total CO2 33 mEq/l (24-31) Bedside Blood Gas Base Excess (LAB) 6.0 meq/L (-9-1.8) Bedside Blood Gas O2 Saturation 95.0 % (90-95) Devin Test NA Oxygen Delivery Device Ventilator Bedside Oxygen Rate (breaths/min) 20 Blood Gas Minute Ventilation 11.1 Bedside FiO2 70 % Blood Gas Tidal Volume 550 Blood Gas PEEP 14 Bedside Glucose 202 mg/dl (70-99) Test 02/18/17 06:02 02/18/17 06:05 02/18/17 07:08 02/18/17 08:18 Sodium Level 136 mmol/L (136-145) Potassium Level 4.0 mmol/L (3.5-5.1) Chloride Level 107 mmol/L (98-107) Carbon Dioxide Level 23 mmol/L (21-32) Anion Gap 6.0 mmol/L (3-11) Blood Urea Nitrogen 15 mg/dl (7-18) Creatinine 0.57 mg/dl (0.60-1.40) Est Creatinine Clear Calc Drug Dose 220.2 ml/min Estimated GFR () 134.9 Estimated GFR (Non- 116.4 BUN/Creatinine Ratio 26.8 (10-20) Random Glucose 154 mg/dl (70-99) Calcium Level 7.4 mg/dl (8.5-10.1) Phosphorus Level 2.7 mg/dl (2.5-4.9) Magnesium Level 2.0 mg/dl (1.8-2.4) Total Bilirubin 0.2 mg/dl (0.2-1) Direct Bilirubin mg/dl (0-0.2) Aspartate Amino Transf (AST/SGOT) 50 U/L (15-37) Alanine Aminotransferase (ALT/SGPT) 16 U/L (12-78) Alkaline Phosphatase 75 U/L (45-117) Total Protein 4.9 gm/dl (6.4-8.2) Albumin 1.3 gm/dl (3.4-5.0) Blood Gas Sample Site Art Line Bedside Blood Gas pH (LAB) 7.34 (7.35-7.45) Bedside Blood Gas pCO2 (LAB) 56 mmHg (35-46) Bedside Blood Gas pO2 (LAB) 66 mmHg (80-95) Bedside Blood Gas HCO3 (LAB) 30 meq/L (19-24) Bedside Blood Gas Total CO2 32 mEq/l (24-31) Bedside Blood Gas Base Excess (LAB) 4.0 meq/L (-9-1.8) Bedside Blood Gas O2 Saturation 91.0 % (90-95) Devin Test NA Oxygen Delivery Device Ventilator Bedside Oxygen Rate (breaths/min) 20 Blood Gas Minute Ventilation 10.9 Bedside FiO2 70 % Blood Gas Tidal Volume 550 Blood Gas PEEP 12 White Blood Count 8.31 K/uL (4.8-10.8) Red Blood Count 2.82 M/uL (4.7-6.1) Hemoglobin 8.1 g/dL (14.0-18.0) Hematocrit 26.7 % (42-52) Mean Corpuscular Volume 94.7 fL (80-100) Mean Corpuscular Hemoglobin 28.7 pg (25-34) Mean Corpuscular Hemoglobin Concent 30.3 g/dl (32-36) Platelet Count 195 K/uL (130-400) Mean Platelet Volume 10.1 fL (7.4-10.4) Neutrophils (%) (Auto) 94.1 % Lymphocytes (%) (Auto) 2.9 % Monocytes (%) (Auto) 2.4 % Eosinophils (%) (Auto) 0.0 % Basophils (%) (Auto) 0.0 % Neutrophils # (Auto) 7.82 K/uL (1.4-6.5) Lymphocytes # (Auto) 0.24 K/uL (1.2-3.4) Monocytes # (Auto) 0.20 K/uL (0.11-0.59) Eosinophils # (Auto) 0.00 K/uL (0-0.5) Basophils # (Auto) 0.00 K/uL (0-0.2) RDW Standard Deviation 61.2 fL (36.4-46.3) RDW Coefficient of Variation 17.6 % (11.5-14.5) Immature Granulocyte % (Auto) 0.6 % Immature Granulocyte # (Auto) 0.05 K/uL (0.00-0.02) Polychromasia 1+ Tear Drop Cells 1+ Bedside Glucose 135 mg/dl (70-99) Test 02/18/17 09:26 Absolute Reticulocyte Count 0.07 10^6/uL (0.02-0.10) Percent Reticulocyte Count 2.4 % (0.5-2.0) Vancomycin Level Trough 15.5 mcg/ml (SEE COMMENT) Assessment & Plan Assessment * 56 yo M with hypoxic respiratory failure/sepsis 2nd HAP. Was transferred to ICU 02/17 shortly after admit 2nd inability to maintain O2 saturations. Patient remains intubated and critically ill in ICU * Afebrile x12 hours * WBC trending down * On cefepime, levofloxacin, and vancomycin since 02/17 AM. Bactrim added PM. * PMH * Recent admission at [facility] January 2017 for PE. * Hx small cell lung CA (previous chemo/radiation), radiation pneumonitis. * SCr stable and at/near baseline Vancomycin * Nasal MRSA negative, but may be falsely negative 2nd obstructive pathology due to SCLC. * Spoke w Dr. Almeida 02/17 AM (prior to transfer to ICU) - would like to continue vancomycin for now * Goal vancomycin trough 15-20 mcg/mL * Trough of 15.5 mcg/mL is therapeutic. * This was drawn prior to steady state. Anticipate further accumulation once steady state reached and from BMI > 30 kg/m2 * Would normally decrease dose now despite therapeutic level 2nd anticipation of accumulation. However, as this level is in the lower end of the therapeutic range and patient remains critically ill in ICU, will continue at current dose * Will check repeat level in 36-48 hours to assess for anticipated accumulation Plan * Continue Vancomycin 2250 mg IV q10h for now * Anticipate need to decrease vancomycin dose soon * Trough 02/20 @ 0130 Pharmacy will continue to follow and will adjust dose/frequency as necessary. Thank you
[2017-02-18] MEDS: PANTOprazole INJ 40 MG in SYRINGE 0 ML IV SCH (14:09)
--- NOTE | 2017-02-18 15:53 | DIAGNOSTIC IMAGING REPORT ---
BILATERAL LOWER EXTREMITY VENOUS DOPPLER HISTORY: chronic thromboembolic disease COMPARISON STUDY: None. FINDINGS: The right common femoral, superficial femoral, popliteal, posterior tibial, and anterior tibial veins are patent. Occlusive thrombus identified within the paired right peroneal veins. Occlusive thrombus identified within the left popliteal vein and peroneal veins. Near occlusive thrombus within the left posterior tibial veins. The left common femoral and superficial femoral veins are patent. IMPRESSION: Bilateral lower extremity DVT as described above. Electronically signed by: Jace Ceballos M.D. 02/18/2017 3:52 PM Dictated Date/Time: 02/18/2017 3:50 PM
[2017-02-18] MEDS: PEPTAMEN INTENSE VHP 1000ML BAG OG SCH (16:00)
[2017-02-18] MEDS: LACTATED RINGER'S 1000ML 1,000 ML IV SCH ×2 (16:55→23:07)
[2017-02-18] MEDS: MIDAZOLAM 125MG/250ML D5W 250 ML IV PRN (20:07)
--- NOTE | 2017-02-18 21:43 | Procedure Note ---
Procedure Note Procedure Date Feb 18, 2017. Central Line Procedure time out: side/site verified, patient ID confirmed, sterile procedure used Consent obtained: written Time of procedure: 10:00 Performed by: attending Indications: poor venous access, central drug admin. Contraindications: coagulopathy (therapeutic Lovenox) Prep: chlorhexadine prep, sterile drape, sterile procedures used Anesthesia: lidocaine 1% without epi Volume anesthetic (ml's): 2 Central line lumen: triple Central line location: internal jugular (L) Additional details: ultrasound guidance, Selinger technique used, line sutured CXR: appropriate position Complications: none Patient tolerated procedure: well Post-procedure vital signs: reviewed and stable Comments: Critical Care Medicine Point of Care Bedside Ultrasound Procedure: Procedural Ultrasound Procedure Date: 02/18/2017 Indication: Placement of left internal jugular central venous catheter while on therapeutic anticoagulation Attending: Deborah Das DO Artery AND Vein visualized: y Compressible Vein: y Guidewire or Short Catheter seen in vein prior to dilation: y Line confirmed in Vein with ultrasound: y Lung Sliding on side of attempt (if applicable): y If no lung sliding or not obtained has CXR been ordered: y Impression: Successful placement of a left internal jugular catheter Images obtained are saved for permanent record
[2017-02-18] MEDS: INSULIN REGULAR 250 UNITS in SODIUM CHLORIDE 0.9% 250ML 250 ML IV SCH (22:52)
[2017-02-19] VITALS (23 sets, daily range): BP systolic 85–169; BP diastolic 60–86; PULSE 75–112; TEMP 36.6–37.3; O2SAT 90–99
[2017-02-19] MEDS: CISATRACURIUM BESYLATE INJ 40 MG in SODIUM CHLORIDE 0.9% 100ML 80 ML IV PRN (01:11)
[2017-02-19] MEDS: DEXTROSE 5% IV SCH ×4 (04:16→22:34)
[2017-02-19] MEDS: SULFA IV SCH ×4 (04:16→22:34)
[2017-02-19] MEDS: TRIMETH IV SCH ×4 (04:16→22:34)
[2017-02-19] MEDS: PROPOFOL IV EMULSION 10 MG/ML 100 ML VIAL IV PRN ×4 (04:17→23:49)
--- NOTE | 2017-02-19 04:22 | Procedure Note ---
Procedure Note Procedure Date Feb 19, 2017. 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 Using Seldinger technique, there was initially no difficulty passing the guide wire, on the second attempt the guide wire was then passed successfully into the artery and the catheter was threaded over the guide wire; which was then removed intact. Arterial blood was seen pulsating from catheter tip and a luer lock valve was attached to the catheter. The A-line catheter was then secured by a stat lock and covered with a sterile surgical dressing. Pt was reassessed and no evidence of hematoma was appreciated. The tubing was placed between the first and second fingers and taped to the forearm.. Pt tolerated the procedure well with no complications. Consent was obtained by Dr. Shady Das Complications: none Patient tolerated procedure: well Post-procedure vital signs: reviewed and stable
[2017-02-19] MEDS: MIDAZOLAM 125MG/250ML D5W 250 ML IV PRN (04:52)
[2017-02-19] MEDS: CEFEPIME IV 2,000 MG in SYRINGE 7.5 ML IV SCH ×3 (05:31→21:36)
[2017-02-19] MEDS: VANCOMYCIN INJ 2,250 MG in SODIUM CHLORIDE 0.9% 500ML 500 ML IV SCH ×2 (05:31→15:48)
[2017-02-19] MEDS: METHADONE HCL 10 MG TAB PO SCH ×3 (05:31→17:55)
[2017-02-19] MEDS: FENTANYL 1250MCG/250ML NSS 250 ML IV PRN (05:49)
[2017-02-19 05:51] LABS: HEMATOCRIT 30.1 % (42-52); HEMOGLOBIN 8.8 g/dL (14.0-18.0); MEAN CELL VOLUME 97.4 fL (80-100); MEAN CORPUSCULAR HEMOGLOBIN 28.5 pg (25-34); MEAN CORPUSCULAR HGB CONC 29.2 g/dl (32-36); MEAN PLATELET VOLUME 10.4 fL (7.4-10.4); NUCLEATED RED BLOOD CELL ABS 0.08 K/uL (0-0); PLATELET COUNT 241 K/uL (130-400); RED CELL DISTRIBUTION WIDTH CV 17.6 % (11.5-14.5); RED CELL DISTRIBUTION WIDTH SD 63.1 fL (36.4-46.3); WHITE BLOOD COUNT 18.19 K/uL (4.8-10.8)
[2017-02-19 06:23] LABS: CREATININE 0.75 mg/dl (0.60-1.40); PHOSPHORUS 2.4 mg/dl (2.5-4.9); POTASSIUM 5.8 mmol/L (3.5-5.1)
--- NOTE | 2017-02-19 07:21 | DIAGNOSTIC IMAGING REPORT ---
CHEST ONE VIEW PORTABLE CLINICAL HISTORY: Intubated tube position COMPARISON STUDY: 1120 09/02/2016 FINDINGS: Persistent diffuse bilateral parenchymal infiltrative change versus a components of respiratory distress. Endotracheal tube remains 3 cm from the butch. Diaphragms smooth. No evidence pneumothorax. IMPRESSION: Unchanged findings of pulmonary edema versus respiratory distress. Endotracheal tube 3 cm above the butch. The above report was generated using voice recognition software. It may contain grammatical, syntax or spelling errors. Electronically signed by: Sunday Mckeon M.D. 02/19/2017 7:20 AM Dictated Date/Time: 02/19/2017 7:18 AM
[2017-02-19 07:22] LABS: CALCIUM 8.8 mg/dl (8.5-10.1)
[2017-02-19] MEDS: INSULIN ASPART 100 UNITS/ML 3 ML PEN SC SCH ×4 (08:00→20:56)
--- NOTE | 2017-02-19 08:18 | Progress Note ---
Medicine Progress Note Date & Time of Visit: Feb 19, 2017 at 07:35 . Subjective Remains intubated on vent. FIO2 weaned down to 80%. Sedated. Unable to respond to questions. . Objective Last 8 Hrs Date Time Temp Pulse Resp B/P (MAP) Pulse Ox O2 Delivery O2 Flow Rate FiO2 02/19/17 07:20 80 02/19/17 07:04 80 02/19/17 06:01 36.8 90 20 145/64 (91) 93 02/19/17 06:00 36.8 90 20 147/65 (92) 93 02/19/17 05:01 37.0 97 21 151/66 (94) 98 02/19/17 05:00 37.0 96 20 145/63 (90) 98 02/19/17 04:34 100 02/19/17 04:34 93 Mechanical Ventilator 100 02/19/17 04:23 37.0 98 21 169/70 (103) 98 02/19/17 04:00 37.0 100 20 98 02/19/17 04:00 100 02/19/17 03:01 36.9 112 21 91 02/19/17 03:00 36.8 110 21 90 02/19/17 02:01 36.8 101 20 94 02/19/17 02:00 36.8 101 21 94 02/19/17 01:01 36.8 102 21 94 02/19/17 01:00 36.8 101 20 95 02/19/17 00:35 100 Physical Exam: General- appears to be comfortable Eyes- anicteric ENT- oral ET tube; oral GT Neck- left internal jugular catheter Lungs- breath sounds equal, coarse; diffuse mild wheezing Heart- regular rate and rhythm, no murmur or gallop appreciated Abdomen- quiet, soft, nontender Extremities- 1+ pretibial edema Neuro- sedated . Laboratory Results: Last 24 Hours Test 02/18/17 08:18 02/18/17 09:26 02/18/17 13:06 02/18/17 14:16 Bedside Glucose 135 mg/dl 148 mg/dl 172 mg/dl Absolute Reticulocyte Count 0.07 10^6/uL Percent Reticulocyte Count 2.4 % Vancomycin Level Trough 15.5 mcg/ml Test 02/18/17 15:06 02/18/17 15:56 02/18/17 18:05 02/18/17 18:19 Bedside Glucose 168 mg/dl 154 mg/dl 178 mg/dl Blood Gas Sample Site Art Line Bedside Blood Gas pH (LAB) 7.21 Bedside Blood Gas pCO2 (LAB) 82 mmHg Bedside Blood Gas pO2 (LAB) 66 mmHg Bedside Blood Gas HCO3 (LAB) 33 meq/L Bedside Blood Gas Total CO2 36 mEq/l Bedside Blood Gas Base Excess (LAB) 5.0 meq/L Bedside Blood Gas O2 Saturation 87.0 % Devin Test NA Oxygen Delivery Device Ventilator Bedside Oxygen Rate (breaths/min) 20 Blood Gas Minute Ventilation 9.2 Bedside FiO2 100 % Blood Gas Tidal Volume 475 Blood Gas PEEP 12 Test 02/18/17 20:27 02/18/17 21:51 02/18/17 23:15 02/19/17 01:19 Bedside Glucose 218 mg/dl 180 mg/dl 199 mg/dl 185 mg/dl Test 02/19/17 02:09 02/19/17 03:29 02/19/17 05:07 02/19/17 05:32 Bedside Glucose 156 mg/dl 164 mg/dl 178 mg/dl White Blood Count 18.19 K/uL Red Blood Count 3.09 M/uL Hemoglobin 8.8 g/dL Hematocrit 30.1 % Mean Corpuscular Volume 97.4 fL Mean Corpuscular Hemoglobin 28.5 pg Mean Corpuscular Hemoglobin Concent 29.2 g/dl RDW Standard Deviation 63.1 fL RDW Coefficient of Variation 17.6 % Platelet Count 241 K/uL Mean Platelet Volume 10.4 fL Nucleated RBC Absolute Count (auto) 0.08 K/uL Nucleated Red Blood Cells % 0.4 % Sodium Level 129 mmol/L Potassium Level 5.8 mmol/L Chloride Level 96 mmol/L Carbon Dioxide Level 29 mmol/L Anion Gap 4.0 mmol/L Blood Urea Nitrogen 19 mg/dl Creatinine 0.75 mg/dl Est Creatinine Clear Calc Drug Dose 168.8 ml/min Estimated GFR () 120.5 Estimated GFR (Non- 104.0 BUN/Creatinine Ratio 25.3 Random Glucose 209 mg/dl Calcium Level 8.8 mg/dl Phosphorus Level 2.4 mg/dl Magnesium Level 2.1 mg/dl Test 02/19/17 05:37 02/19/17 06:30 Blood Gas Sample Site Art Line Art Line Bedside Blood Gas pH (LAB) 7.15 7.24 Bedside Blood Gas pCO2 (LAB) 88 mmHg 72 mmHg Bedside Blood Gas pO2 (LAB) 97 mmHg 69 mmHg Bedside Blood Gas HCO3 (LAB) 31 meq/L 31 meq/L Bedside Blood Gas Total CO2 33 mEq/l 33 mEq/l Bedside Blood Gas Base Excess (LAB) 2.0 meq/L 3.0 meq/L Bedside Blood Gas O2 Saturation 95.0 % 89.0 % Devin Test NA NA Oxygen Delivery Device Ventilator Ventilator Bedside Oxygen Rate (breaths/min) 20 20 Blood Gas Minute Ventilation 9.4 11.1 Bedside FiO2 100 % 80 % Blood Gas Tidal Volume 475 550 Blood Gas PEEP 12 12 Assessment & Plan PULMONARY Acute hypoxic respiratory failure requiring intubation and mechanical ventilation. Contributing factors may include infection, ARDS, progressive small cell carcinoma lung, recent pulmonary embolism, suspected radiation pneumonitis. Bronchoscopy performed 02/17-results pending. CTA chest 02/18 showed resolution of previously noted PE's. Receiving broad-spectrum antibiotics and intravenous methylprednisolone. Maintaining oxygenation, albeit with FIO2 of 80% and PEEP. Ongoing management per [facility] and Pulmonary Medicine. CARDIAC Hemodynamically stable. Recent dobutamine stress echo on 02/08/17 demonstrated normal left upper wall motion and function, no stress-induced ischemia, no pericardial effusion. RENAL / LYTES Serum creatinine stable at 0.75. Serum K 5.8. Management per [facility]. GI / NUTRITION Receiving pantoprazole for GI prophylaxis. Receiving enteral nutrition via GT. ENDOCRINE Diabetes mellitus usually well-controlled on patient's regimen. Hemoglobin A1c 6.4 on 01/31/17. Now critically ill, receiving glucocorticoid therapy. Serum glucose this morning 178. Glycemic management per protocol. ID Bilateral densities on chest imaging. Blood cultures from ED 02/17 negative thus far. Bronchoscopy performed 02/17; cultures negative thus far. Remains on broad spectrum antibiotics. HEME / ONCOLOGY Hemoglobin 10.4 --> 8.8. Anemia multifactorial. No further GI bleeding. 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 CTA 02/18 showed resolution of PE's. Venous duplex showed popliteal / calf DVT's, probably old. 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 VTE PROPHYLAXIS Receiving therapeutic dosing of enoxaparin due to prior history of VTE. RESUSCITATION STATUS DNR DISPOSITION Critically ill. Discharge disposition to be determined. . Consultants: Pulmonary Medicine Critical Care Medicine Medical Oncology . Procedures: cardiac monitoring endotracheal intubation mechanical ventilation right internal jugular central venous catheter arterial line IV medications . Current Inpatient Medications: Current Inpatient Medications Medications (Trade) Dose Ordered Sig/Prince Route Start Time Stop Time Status Last Admin Dose Admin Acetaminophen (Tylenol Tab) 650 mg Q4H PRN PO 02/17/17 06:30 03/19/17 06:29 Al Hydrox/Mg Hydrox/Simethicone (Maalox Max Susp) 15 ml Q4H PRN PO 02/17/17 06:30 03/19/17 06:29 Magnesium Hydroxide (Milk Of Magnesia Susp) 30 ml Q12H PRN PO 02/17/17 06:30 03/19/17 06:29 Aspirin (Ecotrin Tab) 325 mg QAM PO 02/18/17 09:00 03/20/17 08:59 02/18/17 09:00 325 MG Diazepam (Valium Tab) 2 mg BID PRN PO 02/17/17 06:30 03/19/17 06:29 Future Hold 02/17/17 11:52 2 MG Enoxaparin Sodium (Lovenox Inj) 120 mg Q12H SQ 02/17/17 09:00 03/19/17 08:59 02/18/17 20:28 120 MG Methadone HCl (Dolophine Tab) 10 mg Q6 PO 02/17/17 12:00 03/03/17 11:59 02/19/17 05:31 10 MG Ondansetron HCl (Zofran Tab) 8 mg Q8 PRN PO 02/17/17 06:30 03/19/17 06:29 Senna/Docusate Sodium (Senokot S Tab) 1 tab QDL PRN PO 02/17/17 06:30 03/19/17 06:29 Cholecalciferol (Vitamin D Tab) 5,000 inter.unit DAILY PO 02/17/17 09:00 03/19/17 08:59 Future Hold 02/17/17 08:45 5,000 INTER.UNIT Polyethylene (Miralax Powder Packet) 17 gm QDL PRN PO 02/17/17 06:30 03/19/17 06:29 Levalbuterol (Xopenex 1.25MG/ 0.5ML Neb) 1.25 mg Q6R PRN INH 02/17/17 06:30 03/19/17 06:29 Levofloxacin 750 mg/Prmx 150 ml @ 100 mls/hr Q24H IV 02/17/17 09:00 02/24/17 08:59 02/18/17 08:44 100 MLS/HR Cefepime HCl 2000 mg/Syringe 20 ml @ 5 mls/min Q8H IV 02/17/17 14:00 02/24/17 13:59 02/19/17 05:31 5 MLS/MIN Vancomycin HCl (Consult) 1 ea UD PRN N/A 02/17/17 08:30 03/19/17 08:29 Vancomycin HCl 2250 mg/Sodium Chloride 545 ml @ 200 mls/hr Q10H IV 02/17/17 14:00 02/24/17 13:59 02/19/17 05:31 200 MLS/HR Pantoprazole Sodium 40 mg/ Syringe 10 ml @ 5 mls/min Q24H IV 02/17/17 14:00 03/19/17 13:59 02/18/17 14:09 5 MLS/MIN Trimethoprim/ Sulfamethoxazole 525 mg/Dextrose 532.8125 ml @ 333 mls/hr Q6H IV 02/17/17 16:00 02/24/17 15:59 02/19/17 04:16 333 MLS/HR Acetaminophen 100 ml @ 400 mls/hr Q8H PRN IV 02/17/17 15:15 03/19/17 15:14 Methylprednisolone Sodium Succinate 40 mg/Syringe 0.64 ml @ 1.5 mls/min Q8H IV 02/17/17 16:00 03/19/17 15:14 02/18/17 23:20 1.5 MLS/MIN Fentanyl Citrate 250 ml @ 0 mls/hr Q0M PRN IV 02/17/17 15:15 03/03/17 15:14 02/19/17 05:49 40 MLS/HR Cisatracurium Besylate 40 mg/ Sodium Chloride 100 ml @ 0 mls/hr Q0M PRN IV 02/17/17 15:30 03/19/17 14:59 02/19/17 01:11 15 MLS/HR Enteral Nutritional Formula (Peptamen Intense VHP) 1,000 ml DAILY@1600 OG 02/17/17 16:00 03/19/17 15:59 02/18/17 16:00 1,000 ML Metoprolol Tartrate (Lopressor Iv) 5 mg Q4 PRN IV 02/17/17 16:15 03/19/17 16:14 Propofol (Diprivan Iv Emulsion 100ml Vial) 1 dose UD PRN IV 02/17/17 20:15 02/20/17 20:14 02/19/17 04:17 1 DOSE Insulin Aspart (novoLOG ASPART) SLIDING SCALE PCHS SC 02/17/17 21:00 03/19/17 20:59 Insulin Human Regular 250 units/ Sodium Chloride 252.5 ml @ 0 mls/hr Q24H IV 02/17/17 21:15 03/19/17 21:14 02/18/17 22:52 10 MLS/HR Lactated Ringer's 1,000 ml @ 50 mls/hr Q20H IV 02/17/17 21:30 03/19/17 21:29 02/18/17 23:07 50 MLS/HR Heparin Sodium (Porcine) (Heparin 10 Unit/ ml 5 ml Flush) 5 ml PRN PRN FLUSH 02/18/17 00:30 03/20/17 00:29 Docusate Sodium (coLACE SYRUP) 100 mg BID NG 02/18/17 09:00 03/20/17 08:59 02/18/17 20:52 100 MG Ioversol (Optiray 320) 111 ml UD PRN IV 02/18/17 09:45 02/22/17 09:44 Midazolam HCl 250 ml @ 0 mls/hr Q0M PRN IV 02/18/17 19:00 03/19/17 12:59 02/19/17 04:52 28 MLS/HR
[2017-02-19] MEDS: METHYLPREDNISOLONE IV 40 MG in SYRINGE 0 ML IV SCH ×2 (10:21→15:48)
[2017-02-19] MEDS: LEVOFLOXACIN / D5W 750 MG in PREMIXED IN D5W 150 ML IV SCH (10:22)
[2017-02-19] MEDS: ASPIRIN 325 MG ECTAB PO SCH (10:22)
[2017-02-19] MEDS: DOCUSATE SODIUM 100 MG/10 ML UDC NG SCH ×2 (10:22→20:56)
[2017-02-19] MEDS: ENOXAPARIN 120 MG/0.8 ML SYR SQ SCH ×2 (10:23→20:57)
[2017-02-19] MEDS ORDERED: SODIUM BICARB 8.4% INJ 50 MEQ/50 ML SYR IV STA (11:58)
[2017-02-19] MEDS ORDERED: DEXTROSE 50% 50 ML SYR IV SCH (12:00)
[2017-02-19] MEDS ORDERED: FUROSEMIDE 40 MG/4 ML VIAL IV ONE (12:00)
[2017-02-19] MEDS ORDERED: INSULIN HUMAN REGULAR PER UNIT 10 UNITS in SYRINGE 9.9 ML IV SCH (12:30)
[2017-02-19] MEDS: PANTOprazole INJ 40 MG in SYRINGE 0 ML IV SCH (13:12)
[2017-02-19] MEDS: METOPROLOL TARTRATE 1 MG/ML VIAL IV PRN ×2 (13:41→20:48)
--- NOTE | 2017-02-19 15:32 | Critical Care Progress Note ---
Critical Care Progress Note Date of Service Feb 19, 2017. ICU Day ICU Day Number: [address] Nava Subjective Yesterday morning in transit to CT, Right IJ was removed accidentally. Left IJ was subsequently placed Objective GENERAL: sedated, intubated NECK: supple, no nuchal rigidity, no adenopathy, non-tender LUNGS:adolph rhonchi, no wheeze HEART: no murmurs, S1 normal and S2 normal ABDOMEN: abdomen soft normo-active bowel sounds UPPER EXTREMITIES: upper extremities are grossly normal. LOWER EXTREMITIES: No pitting edema. 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 Pneumonitis, Hypoxic Resp failure, saturation in 80's on high flow NC, refused BIPAP in ED Small Cell Lung Cancer: Stage IV, s/p Chemoradiation complicated by radiation pneumonitis Possible Pneumonia: empirically treating with Vancomycin, Levaquin, Cefepime , Bactrim Chest X-ray (02/19): Unchanged findings of pulmonary edema versus respiratory distress. s/p intubation Blood gas (02/19) pH 7.24 pCO2 72 pO2 69 HCO3 31 F/u plateau pressure Cardiovascular: CV drips: Remains off vasoactive medications Rhythm: Sinus EKG: Sinus Tachycardia, QTc 440 Dobutamine Stress ECHO: 01/30/17: Chest pain produced with deep inhalation , Nonischemic PO ASA Fluids/Renal: Hyponatremia, Hyperkalemia Hyponatremia 136-->129, Give 20 mg IV Lasix Hyperkalemia ( K 5.8 ) Start Bicarb drip , 10 u Insulin Regular x 1 IV Fluids: LR D/C'd Em: yes GI/Nutrition: Feeding:NPO Prophylaxis: Protonix IV Endocrine: T2DM Last 24 hour glucose: 154-209 Give 10 u x1 Insulin Regular Insulin protocol: Yes; Drip: No hold VitD Hematology: Hemoglobin 8.8, possible sec to dilution, continue to monitor DVT prophylaxis: Lovenox Infectious Disease/Immunology: Tmax: 38.9 CV Lines (date): Plan for arterial line, CV line today Antimicrobials: Vancomycin day 3? Cefepime day 3/? Levaquin day 3/? Bactrim day 3/? Cultures: Blood: No growth MRSA: negative Resident Physician Supervision Note: I was present with Dr. Sanchez during the history and exam. I discussed the case with the resident and agree with the findings and plan as documented in the note. Any exceptions or clarifications are listed here: Patient with Small Cell Lung Ca Stage III B; s/p XRT, Chemo with evidence of Radiation Pneumonitis; p/w B/L Pneumonia clinically in ARDS; Patient is sedated and paralysed; S/p Lasix today for hypoxemic failure and Hyperkalemia wih significant diuresis; Had episode of Hypertension which resolved; Neuro - c/w Nimbex/Propofol/Versed/Fentanyl; not a weaning candidate; Pulm - Fio2 decreased to 60%; c/w PEEP 12; ABG noted; c/w weaning Fio2 as able; Etiology of ARDS is b/l Pneumonia as seen on CT chest; additionally with DVTs and Radiation Pneumonitis; ID - on empirical Bactrim/ Levaquin/ Vanco and Cefepime; Endo - on Insulin gtt; Renal - lytes; s/p Lasix; in significant negative balance; GI - c/w feeds; DVT prophylaxis CV - hemodynamically stable; I have personally spent 43 minutes of critical care time in the direct management of this patient. This is a life/limb threatening event. This includes time spent evaluating patient, direct bedside care, chart review, placing orders, interpretation of diagnostic studies, discussion with consultants, patient, and family members, as well as other required patient management activities. This time is exclusive of all separately billable procedures, and teaching time and separate from and in addition to any other critical care service time. I discussed the case with Dr. Brett Gale and Hospitalist. Documented By: Mike Nava Consults & Procedures Consultants: Pulmonary Procedures: CHEST ONE VIEW PORTABLE CLINICAL HISTORY: ET PLACEMENT COMPARISON STUDY: Chest radiograph February 17, 2017 2:54 PM. FINDINGS: The tip of the endotracheal tube is 3.5 cm above the butch. A right internal jugular central line is unchanged in position. Tip of nasogastric tube is below the lower aspect of the image but at least within the proximal body of the stomach. Dense bilateral consolidation has significantly progressed since study performed this morning. There is no pneumothorax. IMPRESSION: 1. Satisfactory positioning of lines and tubes. 2. Progression of extensive bilateral opacities. This could reflect pneumonia or pulmonary edema. Data Medications: Current Inpatient Medications Medications (Trade) Dose Ordered Sig/Prince Route Start Time Stop Time Status Last Admin Dose Admin Acetaminophen (Tylenol Tab) 650 mg Q4H PRN PO 02/17/17 06:30 03/19/17 06:29 Al Hydrox/Mg Hydrox/Simethicone (Maalox Max Susp) 15 ml Q4H PRN PO 02/17/17 06:30 03/19/17 06:29 Magnesium Hydroxide (Milk Of Magnesia Susp) 30 ml Q12H PRN PO 02/17/17 06:30 03/19/17 06:29 Aspirin (Ecotrin Tab) 325 mg QAM PO 02/18/17 09:00 03/20/17 08:59 02/19/17 10:22 325 MG Diazepam (Valium Tab) 2 mg BID PRN PO 02/17/17 06:30 03/19/17 06:29 Future Hold 02/17/17 11:52 2 MG Enoxaparin Sodium (Lovenox Inj) 120 mg Q12H SQ 02/17/17 09:00 03/19/17 08:59 02/19/17 10:23 120 MG Methadone HCl (Dolophine Tab) 10 mg Q6 PO 02/17/17 12:00 03/03/17 11:59 02/19/17 05:31 10 MG Ondansetron HCl (Zofran Tab) 8 mg Q8 PRN PO 02/17/17 06:30 03/19/17 06:29 Senna/Docusate Sodium (Senokot S Tab) 1 tab QDL PRN PO 02/17/17 06:30 03/19/17 06:29 Cholecalciferol (Vitamin D Tab) 5,000 inter.unit DAILY PO 02/17/17 09:00 03/19/17 08:59 Future Hold 02/17/17 08:45 5,000 INTER.UNIT Polyethylene (Miralax Powder Packet) 17 gm QDL PRN PO 02/17/17 06:30 03/19/17 06:29 Levalbuterol (Xopenex 1.25MG/ 0.5ML Neb) 1.25 mg Q6R PRN INH 02/17/17 06:30 03/19/17 06:29 Levofloxacin 750 mg/Prmx 150 ml @ 100 mls/hr Q24H IV 02/17/17 09:00 02/24/17 08:59 02/19/17 10:22 100 MLS/HR Cefepime HCl 2000 mg/Syringe 20 ml @ 5 mls/min Q8H IV 02/17/17 14:00 02/24/17 13:59 02/19/17 13:12 5 MLS/MIN Vancomycin HCl (Consult) 1 ea UD PRN N/A 02/17/17 08:30 03/19/17 08:29 Vancomycin HCl 2250 mg/Sodium Chloride 545 ml @ 200 mls/hr Q10H IV 02/17/17 14:00 02/24/17 13:59 02/19/17 05:31 200 MLS/HR Pantoprazole Sodium 40 mg/ Syringe 10 ml @ 5 mls/min Q24H IV 02/17/17 14:00 03/19/17 13:59 02/19/17 13:12 5 MLS/MIN Trimethoprim/ Sulfamethoxazole 525 mg/Dextrose 532.8125 ml @ 333 mls/hr Q6H IV 02/17/17 16:00 02/24/17 15:59 02/19/17 10:23 333 MLS/HR Acetaminophen 100 ml @ 400 mls/hr Q8H PRN IV 02/17/17 15:15 03/19/17 15:14 Methylprednisolone Sodium Succinate 40 mg/Syringe 0.64 ml @ 1.5 mls/min Q8H IV 02/17/17 16:00 03/19/17 15:14 02/19/17 10:21 1.5 MLS/MIN Fentanyl Citrate 250 ml @ 0 mls/hr Q0M PRN IV 02/17/17 15:15 03/03/17 15:14 02/19/17 05:49 40 MLS/HR Enteral Nutritional Formula (Peptamen Intense VHP) 1,000 ml DAILY@1600 OG 02/17/17 16:00 03/19/17 15:59 02/18/17 16:00 1,000 ML Metoprolol Tartrate (Lopressor Iv) 5 mg Q4 PRN IV 02/17/17 16:15 03/19/17 16:14 02/19/17 13:41 5 MG Propofol (Diprivan Iv Emulsion 100ml Vial) 1 dose UD PRN IV 02/17/17 20:15 02/20/17 20:14 02/19/17 04:17 1 DOSE Insulin Aspart (novoLOG ASPART) SLIDING [facility] 02/17/17 21:00 03/19/17 20:59 Insulin Human Regular 250 units/ Sodium Chloride 252.5 ml @ 0 mls/hr Q24H IV 02/17/17 21:15 03/19/17 21:14 02/18/17 22:52 10 MLS/HR Heparin Sodium (Porcine) (Heparin 10 Unit/ ml 5 ml Flush) 5 ml PRN PRN FLUSH 02/18/17 00:30 03/20/17 00:29 Docusate Sodium (coLACE SYRUP) 100 mg BID NG 02/18/17 09:00 03/20/17 08:59 02/19/17 10:22 100 MG Ioversol (Optiray 320) 111 ml UD PRN IV 02/18/17 09:45 02/22/17 09:44 Midazolam HCl 250 ml @ 0 mls/hr Q0M PRN IV 02/18/17 19:00 03/19/17 12:59 02/19/17 04:52 28 MLS/HR Cisatracurium Besylate 100 mg/ Sodium Chloride 250 ml @ 0 mls/hr Q0M PRN IV 02/19/17 13:00 03/21/17 12:59 I & O: 24-Hour Column 02/20/17 07:59 Intake Total 1530 ml Output Total 4650 ml Balance -3120 ml Vital Signs: Date Time Temp Pulse Resp B/P (MAP) Pulse Ox O2 Delivery O2 Flow Rate FiO2 02/19/17 14:30 80 02/19/17 14:00 37.1 20 154/76 (102) 96 Mechanical Ventilator 80 02/19/17 13:41 119 184/80 02/19/17 12:00 95 Mechanical Ventilator 02/19/17 12:00 80 02/19/17 12:00 37.2 86 20 125/64 (84) 96 Mechanical Ventilator 80 02/19/17 11:30 80 02/19/17 10:00 37.3 77 20 124/68 (86) 99 Mechanical Ventilator 80 125/60 (81) 02/19/17 08:00 80 02/19/17 08:00 37.3 75 20 131/71 (91) 97 Mechanical Ventilator 80 02/19/17 08:00 99 Mechanical Ventilator 80 02/19/17 07:20 80 02/19/17 07:04 80 02/19/17 06:01 36.8 90 20 145/64 (91) 93 02/19/17 06:00 36.8 90 20 147/65 (92) 93 02/19/17 05:01 37.0 97 21 151/66 (94) 98 02/19/17 05:00 37.0 96 20 145/63 (90) 98 02/19/17 04:34 100 02/19/17 04:34 93 Mechanical Ventilator 100 02/19/17 04:23 37.0 98 21 169/70 (103) 98 02/19/17 04:00 37.0 100 20 98 02/19/17 04:00 100 02/19/17 03:01 36.9 112 21 91 02/19/17 03:00 36.8 110 21 90 02/19/17 02:01 36.8 101 20 94 02/19/17 02:00 36.8 101 21 94 02/19/17 01:01 36.8 102 21 94 02/19/17 01:00 36.8 101 20 95 02/19/17 00:35 100 02/19/17 00:01 36.9 102 20 85/73 (77) 95 02/19/17 00:00 36.9 103 21 88/75 (79) 95 128/69 (88) 02/19/17 00:00 93 Mechanical Ventilator 100 02/19/17 00:00 100 02/18/17 23:01 36.9 102 20 87/85 (86) 95 126/71 (89) 02/18/17 23:00 36.9 101 21 87/87 (87) 95 02/18/17 22:01 36.7 103 21 78/77 (77) 95 139/73 (95) 02/18/17 22:00 36.7 104 20 81/81 (81) 95 02/18/17 21:40 100 02/18/17 21:01 36.6 101 20 81/80 (80) 94 127/73 (91) 02/18/17 21:00 36.6 101 21 85/84 (84) 94 139/73 (95) 02/18/17 20:01 36.5 99 20 96/95 (95) 94 118/71 (87) 02/18/17 20:00 36.5 100 20 90/89 (89) 94 02/18/17 20:00 93 Mechanical Ventilator 100 02/18/17 20:00 100 02/18/17 18:00 36.0 114 20 128/71 (90) 93 Mechanical Ventilator 100 02/18/17 17:50 100 02/18/17 16:00 70 02/18/17 16:00 35.4 93 20 133/79 (97) 84 Mechanical Ventilator 70 148/58 (88) 02/18/17 16:00 85 Mechanical Ventilator 70 Laboratory Results: Last 24 Hours Test 02/18/17 15:56 02/18/17 18:05 02/18/17 18:19 02/18/17 20:27 Bedside Glucose 154 mg/dl 178 mg/dl 218 mg/dl Blood Gas Sample Site Art Line Bedside Blood Gas pH (LAB) 7.21 Bedside Blood Gas pCO2 (LAB) 82 mmHg Bedside Blood Gas pO2 (LAB) 66 mmHg Bedside Blood Gas HCO3 (LAB) 33 meq/L Bedside Blood Gas Total CO2 36 mEq/l Bedside Blood Gas Base Excess (LAB) 5.0 meq/L Bedside Blood Gas O2 Saturation 87.0 % Devin Test NA Oxygen Delivery Device Ventilator Bedside Oxygen Rate (breaths/min) 20 Blood Gas Minute Ventilation 9.2 Bedside FiO2 100 % Blood Gas Tidal Volume 475 Blood Gas PEEP 12 Test 02/18/17 21:51 02/18/17 23:15 02/19/17 01:19 02/19/17 02:09 Bedside Glucose 180 mg/dl 199 mg/dl 185 mg/dl 156 mg/dl Test 02/19/17 03:29 02/19/17 05:07 02/19/17 05:32 02/19/17 05:37 Bedside Glucose 164 mg/dl 178 mg/dl White Blood Count 18.19 K/uL Red Blood Count 3.09 M/uL Hemoglobin 8.8 g/dL Hematocrit 30.1 % Mean Corpuscular Volume 97.4 fL Mean Corpuscular Hemoglobin 28.5 pg Mean Corpuscular Hemoglobin Concent 29.2 g/dl RDW Standard Deviation 63.1 fL RDW Coefficient of Variation 17.6 % Platelet Count 241 K/uL Mean Platelet Volume 10.4 fL Nucleated RBC Absolute Count (auto) 0.08 K/uL Nucleated Red Blood Cells % 0.4 % Sodium Level 129 mmol/L Potassium Level 5.8 mmol/L Chloride Level 96 mmol/L Carbon Dioxide Level 29 mmol/L Anion Gap 4.0 mmol/L Blood Urea Nitrogen 19 mg/dl Creatinine 0.75 mg/dl Est Creatinine Clear Calc Drug Dose 168.8 ml/min Estimated GFR () 120.5 Estimated GFR (Non- 104.0 BUN/Creatinine Ratio 25.3 Random Glucose 209 mg/dl Calcium Level 8.8 mg/dl Phosphorus Level 2.4 mg/dl Magnesium Level 2.1 mg/dl Blood Gas Sample Site Art Line Bedside Blood Gas pH (LAB) 7.15 Bedside Blood Gas pCO2 (LAB) 88 mmHg Bedside Blood Gas pO2 (LAB) 97 mmHg Bedside Blood Gas HCO3 (LAB) 31 meq/L Bedside Blood Gas Total CO2 33 mEq/l Bedside Blood Gas Base Excess (LAB) 2.0 meq/L Bedside Blood Gas O2 Saturation 95.0 % Devin Test NA Oxygen Delivery Device Ventilator Bedside Oxygen Rate (breaths/min) 20 Blood Gas Minute Ventilation 9.4 Bedside FiO2 100 % Blood Gas Tidal Volume 475 Blood Gas PEEP 12 Test 02/19/17 06:27 02/19/17 06:30 02/19/17 07:56 02/19/17 09:50 Bedside Glucose 200 mg/dl 212 mg/dl 157 mg/dl Blood Gas Sample Site Art Line Bedside Blood Gas pH (LAB) 7.24 Bedside Blood Gas pCO2 (LAB) 72 mmHg Bedside Blood Gas pO2 (LAB) 69 mmHg Bedside Blood Gas HCO3 (LAB) 31 meq/L Bedside Blood Gas Total CO2 33 mEq/l Bedside Blood Gas Base Excess (LAB) 3.0 meq/L Bedside Blood Gas O2 Saturation 89.0 % Devin Test NA Oxygen Delivery Device Ventilator Bedside Oxygen Rate (breaths/min) 20 Blood Gas Minute Ventilation 11.1 Bedside FiO2 80 % Blood Gas Tidal Volume 550 Blood Gas PEEP 12 Resident Tracking Resident Involvement: Resident Care Provided Care Provided: Adult Hospital Medicine
[2017-02-19] MEDS: PEPTAMEN INTENSE VHP 1000ML BAG OG SCH (15:50)
[2017-02-19] MEDS ORDERED: MIDAZOLAM HCL 5 MG/ML 2ML VIAL IV ONE (16:01)
[2017-02-19] MEDS ORDERED: SUCCINYLCHOLINE CHLORIDE 20 MG/ML 10 ML VIAL IV ONE (16:01)
[2017-02-19] MEDS ORDERED: FENTANYL CITRATE INJ 50 MCG/1 ML 2 ML VIAL IV ONE (16:01)
[2017-02-19] MEDS ORDERED: ETOMIDATE 2 MG/ML 20 ML VIAL IV ONE (16:01)
[2017-02-19 16:49] LABS: CALCIUM 8.9 mg/dl (8.5-10.1); CREATININE 0.75 mg/dl (0.60-1.40); PHOSPHORUS 1.8 mg/dl (2.5-4.9); POTASSIUM 5.1 mmol/L (3.5-5.1)
--- NOTE | 2017-02-19 21:25 | Hematology/Oncology Prog Note ---
Hematology/Onc Progress Note Date of Service Feb 19, 2017. Subjective 56-year-old female, Oncology diagnosis: -Small cell lung cancer, locally advanced but limited to the chest, S/P 4 cycles of chemotherapy with carboplatin and etoposide between 10/10/2016-2016, he also received radiation treatment to the large mediastinal and left lung mass at that time. Other diagnosis: -History of left upper extremity DVT diagnosed at the same time and he was diagnosed lung cancer, received Lovenox. -Radiation induced pneumonitis. -Diabetes mellitus, diabetic neuropathy. He was admitted at [facility] earlier on 01/31/2017 for increasing shortness of breath, imaging studies done at that time showed large patchy consolidation involving the left upper lobe (01/24/2017), thought to have radiation induced pneumonitis, started on prednisone at 60 mg per day but did not respond quite well with the 1 week of outpatient prednisone therapy when he was admitted Hospital, he required nasal cannula supplemental oxygen which has gradually tapered down and subsequently he was transferred at the rehab facility on 02/09/2017.. Now he was brought back to the [facility] ER on 02/17/2017 for increasing shortness of breath, also had some fever, he became hypoxic, requiring non-rebreather, he was refusing additional nebulizer treatment, BiPAP mask, subsequently he dropped his O2 saturation, transferred to ICU, now intubated since 02/17/2017 for Hypoxic respiratory failure, possible new pneumonia changes involving the right lung receiving broad-spectrum antibiotic treatment with vancomycin, Levaquin, cefepime, Bactrim, had a bronchoscopic evaluation over the weekend, reviewed imaging studies done recently: -CT scan of the chest done on 02/18/2017 showed no evidence of pulmonary embolism, extensive bilateral airspace opacities which has progressed compared to the previous CT scan done on 01/30/2017. Ill-defined soft tissue density within the anterior mediastinum surrounding the aortic arch and confluent lymphadenopathy/mass at the left hilum which has not significantly changed. -bilateral lower extremity Doppler evaluation done on 02/18/2017 showed evidence of DVT in both lower extremities. CT scan of the head done on 02/12/2017 showed no acute intracranial changes, old left MCA infarct noted. Chest x-ray done on 02/19/2017 showed diffuse bilateral pulmonary parenchymal infiltrative changes. Endotracheal tube noted. No evidence of pneumothorax. I reviewed blood workup done recently: -WBC 85716, H&H of 8.8/30, Platelet count of 241,000. -BUN/Creat: 18/0.7, calcium 8.9. On exam: -appears to be comfortable, presently he is intubated, bilateral leg edema present, hemodynamically he has remained stable, lungs examination shows scattered rhonchi and diffuse wheezing, abdomen is soft and nontender. Presently he is sedated. I spoke with the patient as the family member at bedside (his dad and sister-in- law), reviewed with them regarding overall his clinical condition, he has acute hypoxic respiratory failure which required mechanical ventilatory support, possibility would be radiation induced pneumonitis, progressive small cell lung cancer, possible pulmonary embolism, may be developing ARDS, had a bronchoscopic evaluation over the weekend, no endobronchial mass noted, hemodynamically stable but requiring high FiO2 around 80%, stable kidney function test, drop in hemoglobin appears to be dilutional effect, no obvious GI bleeding, he is on Lovenox for history of left upper extremity DVT and now he has bilateral lower extremity DVT. I reviewed with the patient 's family member regarding oral prognosis which remains quite poor in his case, discussed with them regarding advanced directive , now they have made him DNR. Will see how he does in the next couple of days and if there is no signs of improvement, may consider for comfort care at that time and family member understood that quite well. Will follow-up. Dr. Brett Gale Hem/Onc (This note was completed using the dictation program Fluency Direct. As such, there may be misspellings, word substitutions, or other variations that should not change the essence of the clinical content of this encounter note. If there is need for further clarification, please direct questions to the provider listed above.) Vital Signs Vital Signs Past 12 Hours Date Time Temp Pulse Resp B/P (MAP) Pulse Ox O2 Delivery O2 Flow Rate FiO2 02/19/17 20:48 121 200/98 02/19/17 20:00 37.1 86 20 159/62 (94) 97 Mechanical Ventilator 60 02/19/17 19:30 60 02/19/17 18:00 83 20 140/66 (90) 95 Mechanical Ventilator 60 02/19/17 17:35 60 02/19/17 16:00 36.6 91 16 111/60 (77) 98 Mechanical Ventilator 30 02/19/17 16:00 80 02/19/17 16:00 98 Mechanical Ventilator 02/19/17 14:30 80 02/19/17 14:00 37.1 20 154/76 (102) 96 Mechanical Ventilator 80 02/19/17 13:41 119 184/80 02/19/17 12:00 95 Mechanical Ventilator 02/19/17 12:00 80 02/19/17 12:00 37.2 86 20 125/64 (84) 96 Mechanical Ventilator 80 02/19/17 11:30 80 02/19/17 10:00 37.3 77 20 124/68 (86) 99 Mechanical Ventilator 80 125/60 (81)
[2017-02-20] VITALS (32 sets, daily range): BP systolic 35–205; BP diastolic 33–135; PULSE 73–115; TEMP 36.4–37.1; O2SAT 91–98
[2017-02-20] MEDS: METHADONE HCL 10 MG TAB PO SCH ×4 (00:32→18:00)
[2017-02-20] MEDS: METHYLPREDNISOLONE IV 40 MG in SYRINGE 0 ML IV SCH ×3 (00:32→15:34)
[2017-02-20] MEDS: MIDAZOLAM 125MG/250ML D5W 250 ML IV PRN ×3 (00:34→20:16)
[2017-02-20] MEDS: FENTANYL 1250MCG/250ML NSS 250 ML IV PRN ×4 (01:00→22:43)
[2017-02-20] MEDS: INSULIN REGULAR 250 UNITS in SODIUM CHLORIDE 0.9% 250ML 250 ML IV SCH ×2 (01:04→20:09)
[2017-02-20] MEDS: SODIUM CHLORIDE 0.9% IV PRN ×2 (01:05→06:47)
[2017-02-20] MEDS: CISATRACURIUM BESYLATE IV PRN ×2 (01:05→06:47)
[2017-02-20] MEDS ORDERED: VANCOMYCIN TROUGH ONE (01:30)
[2017-02-20] MEDS: VANCOMYCIN INJ 2,250 MG in SODIUM CHLORIDE 0.9% 500ML 500 ML IV SCH (02:49)
[2017-02-20] MEDS: PROPOFOL IV EMULSION 10 MG/ML 100 ML VIAL IV PRN ×7 (03:27→22:43)
[2017-02-20] MEDS ORDERED: LABETALOL HCL IV 5 MG/ML 20ML IV ONE (03:30)
[2017-02-20] MEDS: SULFA IV SCH ×4 (03:55→21:45)
[2017-02-20] MEDS: DEXTROSE 5% IV SCH ×4 (03:55→21:45)
[2017-02-20] MEDS: TRIMETH IV SCH ×4 (03:55→21:45)
[2017-02-20 06:22] LABS: HEMATOCRIT 25.9 % (42-52); HEMOGLOBIN 7.8 g/dL (14.0-18.0); MEAN CELL VOLUME 94.5 fL (80-100); MEAN CORPUSCULAR HEMOGLOBIN 28.5 pg (25-34); MEAN CORPUSCULAR HGB CONC 30.1 g/dl (32-36); MEAN PLATELET VOLUME 10.2 fL (7.4-10.4); NUCLEATED RED BLOOD CELL ABS 0.03 K/uL (0-0); PLATELET COUNT 252 K/uL (130-400); RED CELL DISTRIBUTION WIDTH CV 17.7 % (11.5-14.5); WHITE BLOOD COUNT 11.45 K/uL (4.8-10.8)
[2017-02-20] MEDS: CEFEPIME IV 2,000 MG in SYRINGE 7.5 ML IV SCH ×3 (06:43→21:45)
[2017-02-20 06:56] LABS: CALCIUM 8.5 mg/dl (8.5-10.1); CREATININE 0.7 mg/dl (0.60-1.40); PHOSPHORUS 1.9 mg/dl (2.5-4.9); POTASSIUM 4.6 mmol/L (3.5-5.1)
--- NOTE | 2017-02-20 07:54 | DIAGNOSTIC IMAGING REPORT ---
CHEST ONE VIEW PORTABLE HISTORY: Intubated COMPARISON: Chest 02/19/2017. FINDINGS: The endotracheal tube terminates 3.7 from the butch. Nasogastric tube terminates below the diaphragm. The tip is not included on this study. Left jugular central venous catheter terminates at the proximal SVC. Bilateral airspace opacities have slightly improved. No pneumothorax. Small left pleural effusion and cardiomegaly persist. IMPRESSION: 1. Satisfactory support line placement. 2. Slight improvement in the bilateral airspace opacities. Electronically signed by: Jace Ceballos M.D. 02/20/2017 7:52 AM Dictated Date/Time: 02/20/2017 7:51 AM
[2017-02-20] MEDS: LEVOFLOXACIN / D5W 750 MG in PREMIXED IN D5W 150 ML IV SCH (07:57)
[2017-02-20] MEDS: DOCUSATE SODIUM 100 MG/10 ML UDC NG SCH ×2 (07:58→21:44)
[2017-02-20] MEDS: ENOXAPARIN 120 MG/0.8 ML SYR SQ SCH ×2 (07:59→21:44)
[2017-02-20] MEDS: ASPIRIN 325 MG ECTAB PO SCH (07:59)
[2017-02-20] MEDS: INSULIN ASPART 100 UNITS/ML 3 ML PEN SC SCH ×4 (08:00→19:47)
[2017-02-20] MEDS: METOPROLOL TARTRATE 1 MG/ML VIAL IV PRN ×2 (08:02→19:19)
[2017-02-20] MEDS ORDERED: POT PHOSPHATE MONOBASIC W/ SOD TAB PO ONE (09:15)
--- NOTE | 2017-02-20 10:18 | Critical Care Progress Note ---
Critical Care Progress Note Date of Service Feb 20, 2017. ICU Day ICU Day Number: [address] Nava Subjective Overnight Patient became hypertensive,tachycardic . He was given IV mg IV Labetalol which he responded to. At the time patient was still on Nimbex, Propofol , Fentanyl, Versed. Per nursing , patient still has episodes where he starts moving in spite of sedation Objective GENERAL: sedated, intubated NECK: supple, no nuchal rigidity, no adenopathy, non-tender LUNGS:coarse breath sounds adolph, no wheeze HEART: no murmurs, S1 normal and S2 normal ABDOMEN: abdomen soft normo-active bowel sounds UPPER EXTREMITIES: upper extremities are grossly normal. LOWER EXTREMITIES: No pitting edema. NEURO EXAM: GCS 3T Current SOFA Score SOFA Score Response (Comments) Value Platelets (x10) > 150 0 Bilirubin (mg/dL) < 1.2 0 [place] Coma Score < 6 4 Level of Hypotension No Hypotension 0 Creatinine (mg/dL) < 1.2 0 Total 4 Assessment & Plan 56 yo M tobacco user with h/o Small Cell Lung Carcinoma s/p chemoradiation, recent admission for radiation pneumonitis, chronic back pain , T2DM, H/o DVT ( UE) on Lovenox, HTN presenting with progressive dyspnea, Hypoxic respiratory failure [employer]/Neuro: GCS: 3TP Pupils: Pinpoint, reactive Focal Signs: None Sedation/pain control:Nimbex, Propofol, Fentanyl, Versed , periodic movements despite sedation D/C'd Nimbex Methadone remains held Respiratory: Hypoxic respiratory failure,Small Cell Lung Carcinoma s/p chemoradiation, Pneumonia vs. Pneumonitis, Hypoxic Resp failure, saturation in 80's on high flow NC, refused BIPAP in ED Small Cell Lung Cancer: Stage IV, s/p Chemoradiation complicated by radiation pneumonitis Possible Pneumonia: empirically treating with Vancomycin, Levaquin, Cefepime , Bactrim Chest X-ray (02/20): Slight improvement in the bilateral airspace opacities Following discontinuation of Nimbex, ABG was repeated. -pH 7.4 pCO2 58 pO2 97 HCO3 36 -FIO2 was weaned to 60 % Tv 550 ml RR 20 Peep 12 Cardiovascular: HTN BP elevated, got IV Labetalol 5mg x 1 PRN Lopressor IV 5mg CV drips: Remains off vasoactive medications Rhythm: Sinus EKG: Sinus Tachycardia, QTc 440 Cont PO ASA Fluids/Renal: Hyponatremia, Hyperkalemia Hyponatremia 129, Hypophosphatemia 1.9: Given 1 dose Neutraphos x1 PO Hyperkalemia: resolved s/p Bicarb drip, Insulin Follow up repeat PRP IV Fluids: IV fluids from medications Em: yes GI/Nutrition: Feeding: Trickle feeds, Peptamen Bariatric Prophylaxis: Protonix IV Endocrine: T2DM Last 24 hour glucose: 125-197 Insulin protocol: Yes; Drip: No Hematology: Hx DVT Hemoglobin 7.8, possibly sec to dilution, continue to monitor F/u repeat CBC DVT prophylaxis: Lovenox Infectious Disease/Immunology: Tmax: 38.9 CV Lines (date): Plan for arterial line, CV line today Antimicrobials: Vancomycin day4? Cefepime day 4/? Levaquin day 4/? Bactrim day 4/? Cultures: Blood: No growth to date MRSA: negative Resident Physician Supervision Note: I was present with Dr. Sanchez during the history and exam. I discussed the case with the resident and agree with the findings and plan as documented in the note. Any exceptions or clarifications are listed here: Patient with Small Cell Lung Ca Stage III B; s/p XRT, Chemo with evidence of Radiation Pneumonitis; p/w B/L Pneumonia clinically in ARDS; Patient is sedated and paralysed; S/p Lasix yesterday for hypoxemic failure and Hyperkalemia with significant diuresis; Had episode of Hypertension which resolved; Neuro -Propofol/Versed/Fentanyl; not a weaning candidate; Nimbex held; Pulm - Fio2 decreased to 50%; c/w PEEP 12; ABG noted; c/w weaning Fio2 as able; Etiology of ARDS is b/l Pneumonia as seen on CT chest; additionally with DVTs and Radiation Pneumonitis; Will carefully start titrating down on PEEP ID - on empirical Bactrim/ Levaquin/ Vanco and Cefepime day 07/03 Endo - on Insulin sliding scale + basal coverage; on Solumedrol; Renal - lytes; s/p Lasix; in significant negative balance; GI - c/w feeds which are to progress from trickle given he is off Nimbex; on Protonix IV; DVT prophylaxis - Lovenox BID for Hx of DVTs; CV - hemodynamically stable, but BP on high side; added B chelo PRN; I have personally spent 36 minutes of critical care time in the direct management of this patient. This is a life/limb threatening event. This includes time spent evaluating patient, direct bedside care, chart review, placing orders, interpretation of diagnostic studies, discussion with consultants, patient, and family members, as well as other required patient management activities. This time is exclusive of all separately billable procedures, and teaching time and separate from and in addition to any other critical care service time. case discussed on am rounds; Meets ICU criteria for admission; Consults & Procedures Consultants: Pulmonary Procedures: CHEST ONE VIEW PORTABLE HISTORY: Intubated COMPARISON: Chest 02/19/2017. FINDINGS: The endotracheal tube terminates 3.7 from the butch. Nasogastric tube terminates below the diaphragm. The tip is not included on this study. Left jugular central venous catheter terminates at the proximal SVC. Bilateral airspace opacities have slightly improved. No pneumothorax. Small left pleural effusion and cardiomegaly persist. IMPRESSION: 1. Satisfactory support line placement. 2. Slight improvement in the bilateral airspace opacities. CHEST ONE VIEW PORTABLE CLINICAL HISTORY: ET PLACEMENT COMPARISON STUDY: Chest radiograph February 17, 2017 2:54 PM. FINDINGS: The tip of the endotracheal tube is 3.5 cm above the butch. A right internal jugular central line is unchanged in position. Tip of nasogastric tube is below the lower aspect of the image but at least within the proximal body of the stomach. Dense bilateral consolidation has significantly progressed since study performed this morning. There is no pneumothorax. IMPRESSION: 1. Satisfactory positioning of lines and tubes. 2. Progression of extensive bilateral opacities. This could reflect pneumonia or pulmonary edema. Data Medications: Current Inpatient Medications Medications (Trade) Dose Ordered Sig/Prince Route Start Time Stop Time Status Last Admin Dose Admin Acetaminophen (Tylenol Tab) 650 mg Q4H PRN PO 02/17/17 06:30 03/19/17 06:29 Al Hydrox/Mg Hydrox/Simethicone (Maalox Max Susp) 15 ml Q4H PRN PO 02/17/17 06:30 03/19/17 06:29 Magnesium Hydroxide (Milk Of Magnesia Susp) 30 ml Q12H PRN PO 02/17/17 06:30 03/19/17 06:29 Aspirin (Ecotrin Tab) 325 mg QAM PO 02/18/17 09:00 03/20/17 08:59 02/20/17 07:59 325 MG Diazepam (Valium Tab) 2 mg BID PRN PO 02/17/17 06:30 03/19/17 06:29 Future Hold 02/17/17 11:52 2 MG Enoxaparin Sodium (Lovenox Inj) 120 mg Q12H SQ 02/17/17 09:00 03/19/17 08:59 02/20/17 07:59 120 MG Methadone HCl (Dolophine Tab) 10 mg Q6 PO 02/17/17 12:00 03/03/17 11:59 02/20/17 06:43 10 MG Ondansetron HCl (Zofran Tab) 8 mg Q8 PRN PO 02/17/17 06:30 03/19/17 06:29 Senna/Docusate Sodium (Senokot S Tab) 1 tab QDL PRN PO 02/17/17 06:30 03/19/17 06:29 Cholecalciferol (Vitamin D Tab) 5,000 inter.unit DAILY PO 02/17/17 09:00 03/19/17 08:59 Future Hold 02/17/17 08:45 5,000 INTER.UNIT Polyethylene (Miralax Powder Packet) 17 gm QDL PRN PO 02/17/17 06:30 03/19/17 06:29 Levalbuterol (Xopenex 1.25MG/ 0.5ML Neb) 1.25 mg Q6R PRN INH 02/17/17 06:30 03/19/17 06:29 Levofloxacin 750 mg/Prmx 150 ml @ 100 mls/hr Q24H IV 02/17/17 09:00 02/24/17 08:59 02/20/17 07:57 100 MLS/HR Cefepime HCl 2000 mg/Syringe 20 ml @ 5 mls/min Q8H IV 02/17/17 14:00 02/24/17 13:59 02/20/17 06:43 5 MLS/MIN Vancomycin HCl (Consult) 1 ea UD PRN N/A 02/17/17 08:30 03/19/17 08:29 Vancomycin HCl 2250 mg/Sodium Chloride 545 ml @ 200 mls/hr Q10H IV 02/17/17 14:00 02/24/17 13:59 02/20/17 02:49 200 MLS/HR Pantoprazole Sodium 40 mg/ Syringe 10 ml @ 5 mls/min Q24H IV 02/17/17 14:00 03/19/17 13:59 02/19/17 13:12 5 MLS/MIN Trimethoprim/ Sulfamethoxazole 525 mg/Dextrose 532.8125 ml @ 333 mls/hr Q6H IV 02/17/17 16:00 02/24/17 15:59 02/20/17 03:55 333 MLS/HR Acetaminophen 100 ml @ 400 mls/hr Q8H PRN IV 02/17/17 15:15 03/19/17 15:14 Methylprednisolone Sodium Succinate 40 mg/Syringe 0.64 ml @ 1.5 mls/min Q8H IV 02/17/17 16:00 03/19/17 15:14 02/20/17 07:56 1.5 MLS/MIN Fentanyl Citrate 250 ml @ 0 mls/hr Q0M PRN IV 02/17/17 15:15 03/03/17 15:14 02/20/17 08:01 20 MLS/HR Enteral Nutritional Formula (Peptamen Intense VHP) 1,000 ml DAILY@1600 OG 02/17/17 16:00 03/19/17 15:59 02/19/17 15:50 1,000 ML Metoprolol Tartrate (Lopressor Iv) 5 mg Q4 PRN IV 02/17/17 16:15 03/19/17 16:14 02/20/17 08:02 5 MG Propofol (Diprivan Iv Emulsion 100ml Vial) 1 dose UD PRN IV 02/17/17 20:15 02/20/17 20:14 02/20/17 07:04 1 DOSE Insulin Aspart (novoLOG ASPART) SLIDING SCALE [facility] 02/17/17 21:00 03/19/17 20:59 Insulin Human Regular 250 units/ Sodium Chloride 252.5 ml @ 0 mls/hr Q24H IV 02/17/17 21:15 03/19/17 21:14 02/20/17 01:04 11.2 MLS/HR Heparin Sodium (Porcine) (Heparin 10 Unit/ ml 5 ml Flush) 5 ml PRN PRN FLUSH 02/18/17 00:30 03/20/17 00:29 Docusate Sodium (coLACE SYRUP) 100 mg BID NG 02/18/17 09:00 03/20/17 08:59 02/20/17 07:58 100 MG Ioversol (Optiray 320) 111 ml UD PRN IV 02/18/17 09:45 02/22/17 09:44 Midazolam HCl 250 ml @ 0 mls/hr Q0M PRN IV 02/18/17 19:00 03/19/17 12:59 02/20/17 00:34 28 MLS/HR Cisatracurium Besylate 100 mg/ Sodium Chloride 250 ml @ 0 mls/hr Q0M PRN IV 02/19/17 13:00 03/21/17 12:59 02/20/17 06:47 50.8 MLS/HR Vital Signs: Date Time Temp Pulse Resp B/P (MAP) Pulse Ox O2 Delivery O2 Flow Rate FiO2 02/20/17 08:02 104 205/82 02/20/17 07:50 60 02/20/17 06:00 36.8 78 20 123/54 (77) 97 Mechanical Ventilator 60 02/20/17 04:00 60 02/20/17 04:00 Mechanical Ventilator 60 02/20/17 04:00 37.1 112 20 190/77 (114) 97 Mechanical Ventilator 60 02/20/17 02:00 60 02/20/17 02:00 37.1 115 15 197/79 (118) 98 Mechanical Ventilator 60 02/20/17 00:01 37.1 90 20 163/62 (95) 97 Mechanical Ventilator 60 02/19/17 23:59 60 02/19/17 23:59 Mechanical Ventilator 60 02/19/17 23:10 60 02/19/17 22:00 37.0 103 20 169/86 (113) 95 Mechanical Ventilator 60 02/19/17 20:48 121 200/98 02/19/17 20:00 37.1 86 20 159/62 (94) 97 Mechanical Ventilator 60 02/19/17 20:00 Mechanical Ventilator 60 02/19/17 20:00 60 02/19/17 19:30 60 02/19/17 18:00 83 20 140/66 (90) 95 Mechanical Ventilator 60 02/19/17 17:35 60 02/19/17 16:00 36.6 91 16 111/60 (77) 98 Mechanical Ventilator 30 02/19/17 16:00 80 02/19/17 16:00 98 Mechanical Ventilator 02/19/17 14:30 80 02/19/17 14:00 37.1 20 154/76 (102) 96 Mechanical Ventilator 80 02/19/17 13:41 119 184/80 02/19/17 12:00 95 Mechanical Ventilator 02/19/17 12:00 80 02/19/17 12:00 37.2 86 20 125/64 (84) 96 Mechanical Ventilator 80 02/19/17 11:30 80 Laboratory Results: Last 24 Hours Test 02/19/17 12:39 02/19/17 16:01 02/19/17 20:12 02/19/17 23:34 Bedside Glucose 161 mg/dl 143 mg/dl Sodium Level 130 mmol/L Potassium Level 5.1 mmol/L Chloride Level 94 mmol/L Carbon Dioxide Level 32 mmol/L Anion Gap 4.0 mmol/L Blood Urea Nitrogen 18 mg/dl Creatinine 0.75 mg/dl Est Creatinine Clear Calc Drug Dose 168.8 ml/min Estimated GFR () 120.5 Estimated GFR (Non- 104.0 BUN/Creatinine Ratio 23.6 Random Glucose 125 mg/dl Calcium Level 8.9 mg/dl Phosphorus Level 1.8 mg/dl Magnesium Level 2.0 mg/dl Blood Gas Sample Site Art Line Bedside Blood Gas pH (LAB) 7.38 Bedside Blood Gas pCO2 (LAB) 66 mmHg Bedside Blood Gas pO2 (LAB) 65 mmHg Bedside Blood Gas HCO3 (LAB) 39 meq/L Bedside Blood Gas Total CO2 > 40 mEq/l Bedside Blood Gas Base Excess (LAB) 14.0 meq/L Bedside Blood Gas O2 Saturation 91.0 % Devin Test NA Oxygen Delivery Device Ventilator Bedside Oxygen Rate (breaths/min) 20 Blood Gas Minute Ventilation 11.1 Bedside FiO2 60 % Blood Gas Tidal Volume 550 Blood Gas PEEP 12 Test 02/20/17 00:03 02/20/17 01:21 02/20/17 04:09 02/20/17 05:49 Bedside Glucose 170 mg/dl 144 mg/dl Vancomycin Level Trough 15.0 mcg/ml White Blood Count 11.45 K/uL Red Blood Count 2.74 M/uL Hemoglobin 7.8 g/dL Hematocrit 25.9 % Mean Corpuscular Volume 94.5 fL Mean Corpuscular Hemoglobin 28.5 pg Mean Corpuscular Hemoglobin Concent 30.1 g/dl RDW Standard Deviation 61.0 fL RDW Coefficient of Variation 17.7 % Platelet Count 252 K/uL Mean Platelet Volume 10.2 fL Nucleated RBC Absolute Count (auto) 0.03 K/uL Nucleated Red Blood Cells % 0.2 % Sodium Level 129 mmol/L Potassium Level 4.6 mmol/L Chloride Level 94 mmol/L Carbon Dioxide Level 31 mmol/L Anion Gap 4.0 mmol/L Blood Urea Nitrogen 19 mg/dl Creatinine 0.70 mg/dl Est Creatinine Clear Calc Drug Dose 180.8 ml/min Estimated GFR () 124.0 Estimated GFR (Non- 107.0 BUN/Creatinine Ratio 26.8 Random Glucose 197 mg/dl Calcium Level 8.5 mg/dl Phosphorus Level 1.9 mg/dl Magnesium Level 1.9 mg/dl Test 02/20/17 06:24 02/20/17 08:05 02/20/17 10:01 Blood Gas Sample Site Art Line Bedside Blood Gas pH (LAB) 7.38 Bedside Blood Gas pCO2 (LAB) 60 mmHg Bedside Blood Gas pO2 (LAB) 69 mmHg Bedside Blood Gas HCO3 (LAB) 35 meq/L Bedside Blood Gas Total CO2 37 mEq/l Bedside Blood Gas Base Excess (LAB) 10.0 meq/L Bedside Blood Gas O2 Saturation 92.0 % Devin Test NA Oxygen Delivery Device Ventilator Bedside Oxygen Rate (breaths/min) 20 Bedside FiO2 60 % Blood Gas Tidal Volume 550 Blood Gas PEEP 12 Bedside Glucose 162 mg/dl 181 mg/dl
--- NOTE | 2017-02-20 11:14 | Progress Note ---
Internal Med Progress Note Date of Service: Feb 20, 2017. Provider Documentation: SUBJECTIVE: The patient was seen and examined Remains sedated on Vent No new issue identified OBJECTIVE: Vital Signs-as noted below Exam: General-Remains sedated on vent No acute distress Eyes-Closed ENT-Normal Neck-Supple Lungs-Decreased breath sound bilaterally at the bases Minimal crackles Heart-Regular,no murmur appreciated Abdomen-Benign,no masses,bowel sound present Extremities-trace edema bilaterally Neuro-Remains sedated on Vent Lab data as noted below. ASSESSMENT & PLAN: This is a 56 year old male with a PMH of small cell lung CA - has undergone chemo/radiation, recent diagnosis of bilateral PE, insulin dependent DM2, diabetic polyneuropathy presents with fevers and hypoxia from [facility] Acute Hypoxic Respiratory Failure secondary to HCAP Acute hypoxic respiratory failure requiring intubation and mechanical ventilation. Contributing factors may include infection, ARDS, progressive small cell carcinoma lung, recent pulmonary embolism, suspected radiation pneumonitis. Bronchoscopy performed 02/17-results pending. CTA chest 02/18 showed resolution of previously noted PE's. Receiving broad-spectrum antibiotics with Cefepime, Levaquin and Vancomycin and intravenous methylprednisolone. Maintaining oxygenation, albeit with FIO2 of 80% and PEEP. Ongoing management per CCM and Pulmonary Medicine. Later on IV Bactrim was added Pulmonary consultation for further input Oncology consulted and input appreciated Critical but stable Radiation Pneumonitis Patient also presented during last admission with likely radiation pneumonitis As per pulmonology, patient to be on prednisone 60mg with a slow taper Patient was recently tapered down to 50mg, and his condition worsened Back to the prednisone 60mg dose and consult pulmonology for further input Bilateral PE Patient recently diagnosed with bilateral PE Continue Lovenox injections CTA chest 02/18 showed resolution of previously noted PE's Insulin Dependent DM2 Patient is very specific regarding his insulin therapy He uses NPH 70/30 - was discharged with around 70 units in the AM and 90 units in the PM On his summary from [facility], he was requiring over 100 units BID Try 70 units BID for now, monitor for hypoglycemia, which was an issue during previous admission Consulted pharmacy glycemic control GI / NUTRITION Receiving pantoprazole for GI prophylaxis. Receiving enteral nutrition via GT. Electrolytes Imbalance Hyponatremia and hypophosphatemia Replace and monitor VTE PROPHYLAXIS Receiving therapeutic dosing of enoxaparin due to prior history of VTE. RESUSCITATION STATUS DNR DISPOSITION Critically ill. Discharge disposition to be determined. . Consultants: Pulmonary Medicine Critical Care Medicine Medical Oncology . Procedures: cardiac monitoring endotracheal intubation mechanical ventilation right internal jugular central venous catheter arterial line IV medications Vital Signs: Date Time Temp Pulse Resp B/P (MAP) Pulse Ox O2 Delivery O2 Flow Rate FiO2 02/20/17 11:02 50 02/20/17 10:40 60 02/20/17 08:02 104 205/82 02/20/17 07:50 60 02/20/17 06:00 36.8 78 20 123/54 (77) 97 Mechanical Ventilator 60 02/20/17 04:00 60 02/20/17 04:00 Mechanical Ventilator 60 02/20/17 04:00 37.1 112 20 190/77 (114) 97 Mechanical Ventilator 60 02/20/17 02:00 60 02/20/17 02:00 37.1 115 15 197/79 (118) 98 Mechanical Ventilator 60 02/20/17 00:01 37.1 90 20 163/62 (95) 97 Mechanical Ventilator 60 02/19/17 23:59 60 02/19/17 23:59 Mechanical Ventilator 60 02/19/17 23:10 60 02/19/17 22:00 37.0 103 20 169/86 (113) 95 Mechanical Ventilator 60 02/19/17 20:48 121 200/98 02/19/17 20:00 37.1 86 20 159/62 (94) 97 Mechanical Ventilator 60 02/19/17 20:00 Mechanical Ventilator 60 02/19/17 20:00 60 02/19/17 19:30 60 02/19/17 18:00 83 20 140/66 (90) 95 Mechanical Ventilator 60 02/19/17 17:35 60 02/19/17 16:00 36.6 91 16 111/60 (77) 98 Mechanical Ventilator 30 02/19/17 16:00 80 02/19/17 16:00 98 Mechanical Ventilator 02/19/17 14:30 80 02/19/17 14:00 37.1 20 154/76 (102) 96 Mechanical Ventilator 80 02/19/17 13:41 119 184/80 02/19/17 12:00 95 Mechanical Ventilator 02/19/17 12:00 80 02/19/17 12:00 37.2 86 20 125/64 (84) 96 Mechanical Ventilator 80 02/19/17 11:30 80 Lab Results: Results Past 24 Hours Test 02/19/17 12:39 02/19/17 16:01 02/19/17 20:12 02/19/17 23:34 Range/Units Bedside Glucose 161 143 70-99 mg/dl Sodium Level 130 136-145 mmol/L Potassium Level 5.1 3.5-5.1 mmol/L Chloride Level 94 98-107 mmol/L Carbon Dioxide Level 32 21-32 mmol/L Anion Gap 4.0 3-11 mmol/L Blood Urea Nitrogen 18 7-18 mg/dl Creatinine 0.75 0.60-1.40 mg/dl Est Creatinine Clear Calc Drug Dose 168.8 ml/min Estimated GFR () 120.5 Estimated GFR (Non- 104.0 BUN/Creatinine Ratio 23.6 10-20 Random Glucose 125 70-99 mg/dl Calcium Level 8.9 8.5-10.1 mg/dl Phosphorus Level 1.8 2.5-4.9 mg/dl Magnesium Level 2.0 1.8-2.4 mg/dl Blood Gas Sample Site Art Line Bedside Blood Gas pH (LAB) 7.38 7.35-7.45 Bedside Blood Gas pCO2 (LAB) 66 35-46 mmHg Bedside Blood Gas pO2 (LAB) 65 80-95 mmHg Bedside Blood Gas HCO3 (LAB) 39 19-24 meq/L Bedside Blood Gas Total CO2 > 40 24-31 mEq/l Bedside Blood Gas Base Excess (LAB) 14.0 -9-1.8 meq/L Bedside Blood Gas O2 Saturation 91.0 90-95 % Devin Test NA Oxygen Delivery Device Ventilator Bedside Oxygen Rate (breaths/min) 20 Blood Gas Minute Ventilation 11.1 Bedside FiO2 60 % Blood Gas Tidal Volume 550 Blood Gas PEEP 12 Test 02/20/17 00:03 02/20/17 01:21 02/20/17 04:09 02/20/17 05:49 Range/Units Bedside Glucose 170 144 70-99 mg/dl Vancomycin Level Trough 15.0 SEE COMMENT mcg/ml White Blood Count 11.45 4.8-10.8 K/uL Red Blood Count 2.74 4.7-6.1 M/uL Hemoglobin 7.8 14.0-18.0 g/dL Hematocrit 25.9 42-52 % Mean Corpuscular Volume 94.5 80-100 fL Mean Corpuscular Hemoglobin 28.5 25-34 pg Mean Corpuscular Hemoglobin Concent 30.1 32-36 g/dl RDW Standard Deviation 61.0 36.4-46.3 fL RDW Coefficient of Variation 17.7 11.5-14.5 % Platelet Count 252 130-400 K/uL Mean Platelet Volume 10.2 7.4-10.4 fL Nucleated RBC Absolute Count (auto) 0.03 0-0 K/uL Nucleated Red Blood Cells % 0.2 % Sodium Level 129 136-145 mmol/L Potassium Level 4.6 3.5-5.1 mmol/L Chloride Level 94 98-107 mmol/L Carbon Dioxide Level 31 21-32 mmol/L Anion Gap 4.0 3-11 mmol/L Blood Urea Nitrogen 19 7-18 mg/dl Creatinine 0.70 0.60-1.40 mg/dl Est Creatinine Clear Calc Drug Dose 180.8 ml/min Estimated GFR () 124.0 Estimated GFR (Non- 107.0 BUN/Creatinine Ratio 26.8 10-20 Random Glucose 197 70-99 mg/dl Calcium Level 8.5 8.5-10.1 mg/dl Phosphorus Level 1.9 2.5-4.9 mg/dl Magnesium Level 1.9 1.8-2.4 mg/dl Test 02/20/17 06:24 02/20/17 08:05 02/20/17 10:01 02/20/17 10:50 Range/Units Blood Gas Sample Site Art Line Art Line Bedside Blood Gas pH (LAB) 7.38 7.40 7.35-7.45 Bedside Blood Gas pCO2 (LAB) 60 58 35-46 mmHg Bedside Blood Gas pO2 (LAB) 69 97 80-95 mmHg Bedside Blood Gas HCO3 (LAB) 35 36 19-24 meq/L Bedside Blood Gas Total CO2 37 37 24-31 mEq/l Bedside Blood Gas Base Excess (LAB) 10.0 11.0 -9-1.8 meq/L Bedside Blood Gas O2 Saturation 92.0 97.0 90-95 % Devin Test NA NA Oxygen Delivery Device Ventilator Ventilator Bedside Oxygen Rate (breaths/min) 20 28 Bedside FiO2 60 60 % Blood Gas Tidal Volume 550 550 Blood Gas PEEP 12 12 Bedside Glucose 162 181 70-99 mg/dl Blood Gas Minute Ventilation 11.2
--- NOTE | 2017-02-20 11:42 | Pharmacy Progress Note ---
Pharmacy Abx Dose Short Note Date of Service Feb 20, 2017. Assessment & Plan Assessment * 56 yo M with hypoxic respiratory failure/sepsis 2nd HAP. Was transferred to ICU 02/17 shortly after admit 2nd inability to maintain O2 saturations. Patient remains intubated and critically ill in ICU * Afebrile x12 hours * WBC trending down * On cefepime, levofloxacin, and vancomycin since 02/17 AM. Bactrim added PM. * PMH * Recent admission at [facility] January 2017 for PE. * Hx small cell lung CA (previous chemo/radiation), radiation pneumonitis. * SCr stable and at/near baseline Vancomycin * Nasal MRSA negative, but may be falsely negative 2nd obstructive pathology due to SCLC. * Goal vancomycin trough 15-20 mcg/mL * Trough of 15 mcg/mL is therapeutic. * It was anticipated that patient would accumulate vancomycin d/t obesity (BMI 39kg/m2), however, this does not appear to be the case. Plan * Increase to Vancomycin 2500mg IV q10h * No further levels have been ordered at this time. Will order repeat vanc level in 1-2 days if patient continues on therapy. Pharmacy will continue to follow and will adjust dose/frequency as necessary. Thank you
[2017-02-20] MEDS: VANCOMYCIN INJ 2,500 MG in SODIUM CHLORIDE 0.9% 500ML 500 ML IV SCH ×2 (12:20→21:46)
[2017-02-20] MEDS: PANTOprazole INJ 40 MG in SYRINGE 0 ML IV SCH (13:31)
[2017-02-20] MEDS: PEPTAMEN INTENSE VHP 1000ML BAG OG SCH (15:35)
[2017-02-20] MEDS ORDERED: PROPOFOL IV EMULSION 10 MG/ML 100 ML VIAL IV ONE (20:37)
[2017-02-20] MEDS ORDERED: PROPOFOL IV EMULSION 10 MG/ML 100 ML VIAL IV PRN (20:45)
[2017-02-21] VITALS (54 sets, daily range): BP systolic 101–197; BP diastolic -23–87; PULSE 67–105; TEMP 36.4–37.5; O2SAT 89–100
[2017-02-21] MEDS ORDERED: FENTANYL CITRATE INJ 50 MCG/1 ML 2 ML VIAL ONE (00:24)
[2017-02-21] MEDS: METHYLPREDNISOLONE IV 40 MG in SYRINGE 0 ML IV SCH ×4 (00:30→23:38)
[2017-02-21] MEDS: METHADONE HCL 10 MG TAB PO SCH ×5 (00:30→23:38)
[2017-02-21] MEDS ORDERED: FENTANYL CITRATE INJ 50 MCG/1 ML 2 ML VIAL IV ONE (00:30)
[2017-02-21] MEDS: PROPOFOL IV EMULSION 10 MG/ML 100 ML VIAL IV PRN ×8 (00:43→21:09)
[2017-02-21] MEDS: DEXTROSE 5% IV SCH ×4 (04:25→22:39)
[2017-02-21] MEDS: SULFA IV SCH ×4 (04:25→22:39)
[2017-02-21] MEDS: TRIMETH IV SCH ×4 (04:25→22:39)
[2017-02-21] MEDS: MIDAZOLAM 125MG/250ML D5W 250 ML IV PRN ×2 (04:26→16:55)
[2017-02-21] MEDS: FENTANYL 1250MCG/250ML NSS 250 ML IV PRN ×3 (04:27→19:07)
[2017-02-21] MEDS: CEFEPIME IV 2,000 MG in SYRINGE 7.5 ML IV SCH ×3 (05:27→21:26)
[2017-02-21 06:17] LABS: HEMATOCRIT 28.5 % (42-52); HEMOGLOBIN 8.9 g/dL (14.0-18.0); MEAN CELL VOLUME 92.5 fL (80-100); MEAN CORPUSCULAR HEMOGLOBIN 28.9 pg (25-34); MEAN CORPUSCULAR HGB CONC 31.2 g/dl (32-36); MEAN PLATELET VOLUME 10.1 fL (7.4-10.4); PLATELET COUNT 257 K/uL (130-400); RED CELL DISTRIBUTION WIDTH SD 61.4 fL (36.4-46.3); WHITE BLOOD COUNT 11.01 K/uL (4.8-10.8)
[2017-02-21 06:51] LABS: CREATININE 0.77 mg/dl (0.60-1.40); PHOSPHORUS 1.8 mg/dl (2.5-4.9); POTASSIUM 4.4 mmol/L (3.5-5.1)
[2017-02-21] MEDS: DOCUSATE SODIUM 100 MG/10 ML UDC NG SCH ×2 (07:24→20:54)
[2017-02-21] MEDS: ENOXAPARIN 120 MG/0.8 ML SYR SQ SCH (07:25)
[2017-02-21] MEDS: VANCOMYCIN INJ 2,500 MG in SODIUM CHLORIDE 0.9% 500ML 500 ML IV SCH ×2 (07:26→18:12)
[2017-02-21] MEDS: INSULIN ASPART 100 UNITS/ML 3 ML PEN SC SCH ×4 (08:00→20:53)
--- NOTE | 2017-02-21 08:02 | Hematology/Oncology Prog Note ---
Hematology/Onc Progress Note Date of Service Feb 21, 2017. Subjective I saw him at bedside on 02/20/2017 at about 4:30 p.m., he is intubated, sedated , now he is off the paralytics, I reviewed his chart, medications that he is receiving, presently he is on FiO2 about 50%, hemodynamically stable, blood pressure is slightly on the higher side, also spoke with the level vial curvature gauger at bedside, also spoke with the patient 's family member who had bedside. Reviewed his blood workup, slightly elevated white blood cell count around 11, 000, hemoglobin level dropped down to around 7.8 g/dL, normal platelet count, normal kidney function test, phosphorus level is slightly on the lower side around 1.9, calcium is 8.5, bilateral leg edema present, significant urine output following Lasix noted, his weight dropped from 137 kg--> 131 kg in the last few days. No fever. Receiving 4 broad-spectrum antibiotic, bronchial washing culture so far showed no growth, fungal culture pending. Overall slight improvement of his clinical condition noted but still his condition remains quite critical and family members are aware about that. Please note that this is a delayed entry in the EMR. Vital Signs Vital Signs Past 12 Hours Date Time Temp Pulse Resp B/P (MAP) Pulse Ox O2 Delivery O2 Flow Rate FiO2 02/21/17 07:34 40 02/21/17 06:31 36.5 95 31 143/83 (92) 99 192/66 (88) 02/21/17 06:28 36.5 92 20 158/80 (87) 98 171/39 (86) 02/21/17 06:23 36.5 96 31 149/87 (101) 100 192/70 (95) 02/21/17 06:01 36.7 87 27 156/77 (87) 94 185/61 (89) 02/21/17 05:34 45 02/21/17 05:31 36.6 85 32 132/69 (78) 97 164/56 (77) 02/21/17 05:01 36.6 103 25 165/84 (93) 97 176/64 (94) 02/21/17 04:31 36.5 102 21 170/84 (100) 97 186/68 (102) 02/21/17 04:01 36.4 105 28 170/82 (101) 94 178/69 (98) 02/21/17 04:00 Mechanical Ventilator 40 02/21/17 04:00 40 02/21/17 03:33 45 02/21/17 03:31 36.5 79 22 141/67 (74) 93 147/52 (73) 02/21/17 03:01 36.5 78 21 133/65 (80) 96 131/55 (80) 02/21/17 02:01 36.8 78 24 121/65 (67) 95 127/49 (72) 02/21/17 01:56 50 02/21/17 01:01 36.6 90 20 149/70 (76) 96 153/51 (82) 02/21/17 00:31 36.6 99 16 147/78 (96) 97 171/65 (92) 02/21/17 00:16 36.6 101 20 166/74 (94) 96 177/63 (90) 02/21/17 00:01 36.6 101 22 136/85 (98) 98 184/66 (94) 02/21/17 00:01 Mechanical Ventilator 50 02/21/17 00:01 50 02/21/17 00:00 36.6 100 20 163/77 (91) 98 175/60 (94) 02/20/17 23:31 36.6 95 21 160/67 (91) 98 164/62 (89) 02/20/17 23:22 50 02/20/17 23:01 36.7 91 20 152/74 (80) 98 161/54 (91) 02/20/17 22:31 36.7 99 24 131/86 (93) 97 170/62 (93) 02/20/17 22:01 36.8 97 20 162/80 (99) 97 184/65 (95) 02/20/17 21:31 36.8 97 20 178/78 (97) 97 179/65 (96) 02/20/17 21:01 36.8 97 20 166/79 (97) 98 179/65 (97) 02/20/17 20:53 36.8 97 22 167/76 (97) 97 180/64 (102) 02/20/17 20:31 36.9 95 23 158/106 (98) 97 182/65 (96) 02/20/17 20:08 50
--- NOTE | 2017-02-21 08:25 | DIAGNOSTIC IMAGING REPORT ---
CHEST ONE VIEW PORTABLE CLINICAL HISTORY: 56 years-old Male presenting with pna. TECHNIQUE: Portable upright AP view of the chest was obtained. COMPARISON: 02/20/2017. FINDINGS: Endotracheal tube terminates in the mid thoracic trachea proximal 0.3 cm from the butch. Nasogastric tube descends below the diaphragm. Left internal jugular central venous catheter terminates in the mid SVC. The cardiomediastinal silhouette is largely obscured along the left heart border secondary to pulmonary consolidation. Diffuse patchy opacities throughout the left lung stable from prior. Interval decrease in minimal patchy right lung opacities. Small left pleural effusion suspected. No pneumothorax. Osseous structures normal. Upper abdomen normal. IMPRESSION: 1. Stable diffuse left lung consolidation with interval decrease in right lung consolidation. 2. Appropriately positioned lines and tubes. Electronically signed by: Octavio Torres M.D. 02/21/2017 8:24 AM Dictated Date/Time: 02/21/2017 8:21 AM
[2017-02-21] MEDS ORDERED: DexMEDEtomidine HCL IV 200 MCG in SODIUM CHLORIDE 0.9% 50ML 48 ML IV PRN ×2 (08:40→09:30)
--- NOTE | 2017-02-21 09:36 | Critical Care Progress Note ---
Critical Care Progress Note Date of Service Feb 21, 2017. ICU Day ICU Day Number: [address] Nava Subjective No acute events overnight. PEEP/FIOS titrated down to PEEP of 8 , FIO2 of 40% Objective GENERAL: sedated, intubated NECK: supple, no nuchal rigidity, no adenopathy, non-tender LUNGS:coarse breath sounds adolph, no wheeze HEART: no murmurs, S1 normal and S2 normal ABDOMEN: abdomen soft normo-active bowel sounds UPPER EXTREMITIES: upper extremities are grossly normal. LOWER EXTREMITIES: No pitting edema. 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 Pneumonitis, Hypoxic Resp failure, saturation in 80's on high flow NC, refused BIPAP in ED Small Cell Lung Cancer: Stage IV, s/p Chemoradiation complicated by radiation pneumonitis Possible Pneumonia: empirically treating with Vancomycin, Levaquin, Cefepime , Bactrim Chest X-ray (02/21): Stable diffuse left lung consolidation with interval decrease in right lung consolidation. Adjust Vent settings to PEEP of 5 Cardiovascular: HTN BP elevated, got IV Labetalol 5mg x 1 PRN Lopressor IV 5mg CV drips: Remains off vasoactive medications Rhythm: Sinus EKG: Sinus Tachycardia, QTc 440 Cont PO ASA Fluids/Renal: Hyponatremia, Hyperkalemia Hyponatremia 133, Hypophosphatemia 1.8: Give Sodium Phos 500 ml x1 Hyperkalemia: resolved Follow up repeat PRP IV Fluids: IV fluids from medications Em: yes GI/Nutrition: Feeding: Increase feeds towards goal, Peptamen Bariatric Prophylaxis: Protonix IV ordered LFT's, Lipase Constipation: Consider adding Relistor tmr Endocrine: T2DM Last 24 hour glucose: 160-197 Insulin protocol: Yes; Drip: No Hematology: Hx DVT Hemoglobin 11, possibly sec to dilution, continue to monitor F/u repeat CBC DVT prophylaxis: Lovenox Infectious Disease/Immunology: Tmax: 36.5 Antimicrobials: Vancomycin day5? Cefepime day 5/? Levaquin day 5/? Bactrim day 5/? Cultures: Blood: No growth to date MRSA: negative Resident Physician Supervision Note: I was present with Dr. Sanchez during the history and exam. I discussed the case with the resident and agree with the findings and plan as documented in the note. Any exceptions or clarifications are listed here: Patient with Small Cell Lung Ca Stage III B; s/p XRT, Chemo with evidence of Radiation Pneumonitis; p/w B/L Pneumonia clinically in ARDS; Patient is sedated and paralysed; S/p Lasix yesterday for hypoxemic failure and Hyperkalemia with significant diuresis; Had episode of Hypertension which resolved; Neuro -Propofol/Versed/Fentanyl; not a weaning candidate; Did well off Nimbex; Added Precedex gtt today; wean off Propofol; Pulm - Fio2 decreased to 40%; c/w PEEP 7; ABG noted; c/w weaning Fio2 as able; Etiology of ARDS is b/l Pneumonia as seen on CT chest; additionally with DVTs and Radiation Pneumonitis; However, given he is diuresing well on his own ( only got Lasix 20 mg IV x 1), there may be a component of volume overload which is resolving; Will carefully start titrating down on PEEP. Hopefully will start weaning in am; on Fio2 40% and PEEP 8 --> pO2 87 ID - on empirical Bactrim/ Levaquin/ Vanco and Cefepime day 07/03 check rpt procalcitonin; Endo - on Insulin sliding scale + basal coverage; on Solumedrol; Renal - lytes; s/p Lasix; in significant negative balance; Hold off on giving him IVF for now; check serum osm; Na is ok; GI - c/w feeds which are to progress from trickle to goal as tolerated; on Protonix IV; DVT prophylaxis - Lovenox BID for Hx of DVTs; dose adjusted by pharmacy as Xa level elevated; CV - hemodynamically stable, but BP on high side; added B chelo PRN; I have personally spent 39 minutes of critical care time in the direct management of this patient. This is a life/limb threatening event. This includes time spent evaluating patient, direct bedside care, chart review, placing orders, interpretation of diagnostic studies, discussion with consultants, patient, and family members, as well as other required patient management activities. This time is exclusive of all separately billable procedures, and teaching time and separate from and in addition to any other critical care service time. case discussed on am rounds; I personally met with patient's father on 02/20 and updated him on the patient' s condition as well as answered his question to the best of my ability. Meets ICU criteria for admission; Consults & Procedures Consultants: Pulmonary Procedures: CHEST ONE VIEW PORTABLE HISTORY: Intubated COMPARISON: Chest 02/19/2017. FINDINGS: The endotracheal tube terminates 3.7 from the butch. Nasogastric tube terminates below the diaphragm. The tip is not included on this study. Left jugular central venous catheter terminates at the proximal SVC. Bilateral airspace opacities have slightly improved. No pneumothorax. Small left pleural effusion and cardiomegaly persist. IMPRESSION: 1. Satisfactory support line placement. 2. Slight improvement in the bilateral airspace opacities. CHEST ONE VIEW PORTABLE CLINICAL HISTORY: ET PLACEMENT COMPARISON STUDY: Chest radiograph February 17, 2017 2:54 PM. FINDINGS: The tip of the endotracheal tube is 3.5 cm above the butch. A right internal jugular central line is unchanged in position. Tip of nasogastric tube is below the lower aspect of the image but at least within the proximal body of the stomach. Dense bilateral consolidation has significantly progressed since study performed this morning. There is no pneumothorax. IMPRESSION: 1. Satisfactory positioning of lines and tubes. 2. Progression of extensive bilateral opacities. This could reflect pneumonia or pulmonary edema. Data Medications: Current Inpatient Medications Medications (Trade) Dose Ordered Sig/Prince Route Start Time Stop Time Status Last Admin Dose Admin Acetaminophen (Tylenol Tab) 650 mg Q4H PRN PO 02/17/17 06:30 03/19/17 06:29 Al Hydrox/Mg Hydrox/Simethicone (Maalox Max Susp) 15 ml Q4H PRN PO 02/17/17 06:30 03/19/17 06:29 Magnesium Hydroxide (Milk Of Magnesia Susp) 30 ml Q12H PRN PO 02/17/17 06:30 03/19/17 06:29 Aspirin (Ecotrin Tab) 325 mg QAM PO 02/18/17 09:00 03/20/17 08:59 02/20/17 07:59 325 MG Diazepam (Valium Tab) 2 mg BID PRN PO 02/17/17 06:30 03/19/17 06:29 Future Hold 02/17/17 11:52 2 MG Enoxaparin Sodium (Lovenox Inj) 120 mg Q12H SQ 02/17/17 09:00 03/19/17 08:59 02/21/17 07:25 120 MG Methadone HCl (Dolophine Tab) 10 mg Q6 PO 02/17/17 12:00 03/03/17 11:59 02/21/17 05:27 10 MG Ondansetron HCl (Zofran Tab) 8 mg Q8 PRN PO 02/17/17 06:30 03/19/17 06:29 Senna/Docusate Sodium (Senokot S Tab) 1 tab QDL PRN PO 02/17/17 06:30 03/19/17 06:29 Cholecalciferol (Vitamin D Tab) 5,000 inter.unit DAILY PO 02/17/17 09:00 03/19/17 08:59 Future Hold 02/17/17 08:45 5,000 INTER.UNIT Polyethylene (Miralax Powder Packet) 17 gm QDL PRN PO 02/17/17 06:30 03/19/17 06:29 Levalbuterol (Xopenex 1.25MG/ 0.5ML Neb) 1.25 mg Q6R PRN INH 02/17/17 06:30 03/19/17 06:29 Levofloxacin 750 mg/Prmx 150 ml @ 100 mls/hr Q24H IV 02/17/17 09:00 02/24/17 08:59 02/20/17 07:57 100 MLS/HR Cefepime HCl 2000 mg/Syringe 20 ml @ 5 mls/min Q8H IV 02/17/17 14:00 02/24/17 13:59 02/21/17 05:27 5 MLS/MIN Vancomycin HCl (Consult) 1 ea UD PRN N/A 02/17/17 08:30 03/19/17 08:29 Pantoprazole Sodium 40 mg/ Syringe 10 ml @ 5 mls/min Q24H IV 02/17/17 14:00 03/19/17 13:59 02/20/17 13:31 5 MLS/MIN Trimethoprim/ Sulfamethoxazole 525 mg/Dextrose 532.8125 ml @ 333 mls/hr Q6H IV 02/17/17 16:00 02/24/17 15:59 02/21/17 04:25 333 MLS/HR Acetaminophen 100 ml @ 400 mls/hr Q8H PRN IV 02/17/17 15:15 03/19/17 15:14 Methylprednisolone Sodium Succinate 40 mg/Syringe 0.64 ml @ 1.5 mls/min Q8H IV 02/17/17 16:00 03/19/17 15:14 02/21/17 07:26 1.5 MLS/MIN Fentanyl Citrate 250 ml @ 0 mls/hr Q0M PRN IV 02/17/17 15:15 03/03/17 15:14 02/21/17 04:27 40 MLS/HR Enteral Nutritional Formula (Peptamen Intense VHP) 1,000 ml DAILY@1600 OG 02/17/17 16:00 03/19/17 15:59 02/20/17 15:35 1,000 ML Metoprolol Tartrate (Lopressor Iv) 5 mg Q4 PRN IV 02/17/17 16:15 03/19/17 16:14 02/20/17 19:19 5 MG Propofol (Diprivan Iv Emulsion 100ml Vial) 1 dose UD PRN IV 02/17/17 20:15 02/23/17 20:14 02/21/17 07:23 1 DOSE Insulin Aspart (novoLOG ASPART) SLIDING SCALE PCHS SC 02/17/17 21:00 03/19/17 20:59 Insulin Human Regular 250 units/ Sodium Chloride 252.5 ml @ 0 mls/hr Q24H IV 02/17/17 21:15 03/19/17 21:14 02/20/17 20:09 11.2 MLS/HR Heparin Sodium (Porcine) (Heparin 10 Unit/ ml 5 ml Flush) 5 ml PRN PRN FLUSH 02/18/17 00:30 03/20/17 00:29 Docusate Sodium (coLACE SYRUP) 100 mg BID NG 02/18/17 09:00 03/20/17 08:59 02/21/17 07:24 100 MG Ioversol (Optiray 320) 111 ml UD PRN IV 02/18/17 09:45 02/22/17 09:44 Midazolam HCl 250 ml @ 0 mls/hr Q0M PRN IV 02/18/17 19:00 03/19/17 12:59 02/21/17 04:26 24 MLS/HR Vancomycin HCl 2500 mg/Sodium Chloride 550 ml @ 200 mls/hr Q10H IV 02/20/17 12:00 02/24/17 13:59 02/21/17 07:26 200 MLS/HR Dexmedetomidine HCl 200 mcg/ Sodium Chloride 50 ml @ 0 mls/hr Q0M PRN IV 02/21/17 09:30 02/25/17 08:39 Sodium Phosphate 21 mmol/Sodium Chloride 507 ml @ 175 mls/hr ONE ONCE IV 02/21/17 09:45 02/21/17 12:38 Vital Signs: Date Time Temp Pulse Resp B/P (MAP) Pulse Ox O2 Delivery O2 Flow Rate FiO2 02/21/17 07:34 40 02/21/17 06:31 36.5 95 31 143/83 (92) 99 192/66 (88) 02/21/17 06:28 36.5 92 20 158/80 (87) 98 171/39 (86) 02/21/17 06:23 36.5 96 31 149/87 (101) 100 192/70 (95) 02/21/17 06:01 36.7 87 27 156/77 (87) 94 185/61 (89) 02/21/17 05:34 45 02/21/17 05:31 36.6 85 32 132/69 (78) 97 164/56 (77) 02/21/17 05:01 36.6 103 25 165/84 (93) 97 176/64 (94) 02/21/17 04:31 36.5 102 21 170/84 (100) 97 186/68 (102) 02/21/17 04:01 36.4 105 28 170/82 (101) 94 178/69 (98) 02/21/17 04:00 Mechanical Ventilator 40 02/21/17 04:00 40 02/21/17 03:33 45 02/21/17 03:31 36.5 79 22 141/67 (74) 93 147/52 (73) 02/21/17 03:01 36.5 78 21 133/65 (80) 96 131/55 (80) 02/21/17 02:01 36.8 78 24 121/65 (67) 95 127/49 (72) 02/21/17 01:56 50 02/21/17 01:01 36.6 90 20 149/70 (76) 96 153/51 (82) 02/21/17 00:31 36.6 99 16 147/78 (96) 97 171/65 (92) 02/21/17 00:16 36.6 101 20 166/74 (94) 96 177/63 (90) 02/21/17 00:01 36.6 101 22 136/85 (98) 98 184/66 (94) 02/21/17 00:01 Mechanical Ventilator 50 02/21/17 00:01 50 02/21/17 00:00 36.6 100 20 163/77 (91) 98 175/60 (94) 02/20/17 23:31 36.6 95 21 160/67 (91) 98 164/62 (89) 02/20/17 23:22 50 02/20/17 23:01 36.7 91 20 152/74 (80) 98 161/54 (91) 02/20/17 22:31 36.7 99 24 131/86 (93) 97 170/62 (93) 02/20/17 22:01 36.8 97 20 162/80 (99) 97 184/65 (95) 02/20/17 21:31 36.8 97 20 178/78 (97) 97 179/65 (96) 02/20/17 21:01 36.8 97 20 166/79 (97) 98 179/65 (97) 02/20/17 20:53 36.8 97 22 167/76 (97) 97 180/64 (102) 02/20/17 20:31 36.9 95 23 158/106 (98) 97 182/65 (96) 02/20/17 20:08 50 02/20/17 20:01 36.9 75 20 138/65 (71) 96 144/49 (74) 02/20/17 20:00 Mechanical Ventilator 50 02/20/17 20:00 50 02/20/17 19:31 36.7 87 22 148/74 (94) 97 156/67 (102) 02/20/17 19:19 105 174/77 02/20/17 19:12 36.7 103 22 174/77 (112) 97 185/65 (118) 02/20/17 18:08 36.7 20 164/61 (95) 95 Mechanical Ventilator 50 02/20/17 18:07 79 20 151/69 95 168/63 (87) 02/20/17 17:00 36.4 96 22 (104) 97 183/73 02/20/17 16:30 50 02/20/17 16:00 50 02/20/17 16:00 36.4 102 27 (108) 92 182/75 02/20/17 16:00 96 Mechanical Ventilator 50 02/20/17 16:00 36.6 102 28 158/135 (143) 91 Mechanical Ventilator 02/20/17 15:00 36.7 78 20 (79) 94 134/59 02/20/17 14:09 50 02/20/17 13:01 36.8 76 20 130/64 (79) 92 134/61 02/20/17 13:01 36.8 76 20 130/64 (79) 92 134/61 02/20/17 13:00 36.8 78 20 (77) 92 122/58 02/20/17 13:00 36.8 78 20 (77) 92 122/58 02/20/17 12:01 36.8 73 20 134/64 (81) 92 137/61 02/20/17 12:01 36.8 73 20 134/64 (81) 92 137/61 02/20/17 12:00 36.8 73 20 (79) 92 128/60 02/20/17 12:00 36.8 73 20 (79) 92 128/60 02/20/17 12:00 60 02/20/17 12:00 93 Mechanical Ventilator 60 02/20/17 11:02 50 02/20/17 11:01 36.8 77 20 130/65 (83) 95 145/61 02/20/17 11:01 36.8 77 20 130/65 (83) 95 145/61 02/20/17 11:00 36.8 77 20 (81) 95 137/60 02/20/17 11:00 36.8 77 20 (81) 95 137/60 02/20/17 10:40 60 02/20/17 10:01 36.8 73 20 119/65 (79) 95 119/60 02/20/17 10:01 36.8 73 20 119/65 (79) 95 119/60 02/20/17 10:00 36.8 74 20 (77) 95 119/59 02/20/17 10:00 36.8 74 20 (77) 95 119/59 Laboratory Results: Last 24 Hours Test 02/20/17 10:01 02/20/17 10:50 02/20/17 12:09 02/20/17 12:52 Bedside Glucose 181 mg/dl 219 mg/dl Blood Gas Sample Site Art Line Bedside Blood Gas pH (LAB) 7.40 Bedside Blood Gas pCO2 (LAB) 58 mmHg Bedside Blood Gas pO2 (LAB) 97 mmHg Bedside Blood Gas HCO3 (LAB) 36 meq/L Bedside Blood Gas Total CO2 37 mEq/l Bedside Blood Gas Base Excess (LAB) 11.0 meq/L Bedside Blood Gas O2 Saturation 97.0 % Devin Test NA Oxygen Delivery Device Ventilator Bedside Oxygen Rate (breaths/min) 28 Blood Gas Minute Ventilation 11.2 Bedside FiO2 60 % Blood Gas Tidal Volume 550 Blood Gas PEEP 12 Heparin Anti-Xa Act, Low Molec Wt 1.37 IU/ML Test 02/20/17 14:28 02/20/17 16:15 02/20/17 18:46 02/20/17 20:18 Bedside Glucose 180 mg/dl 173 mg/dl 163 mg/dl 143 mg/dl Test 02/21/17 00:03 02/21/17 04:34 02/21/17 04:35 02/21/17 05:18 Bedside Glucose 146 mg/dl 79 mg/dl 93 mg/dl 127 mg/dl Test 02/21/17 05:55 02/21/17 06:37 02/21/17 09:01 White Blood Count 11.01 K/uL Red Blood Count 3.08 M/uL Hemoglobin 8.9 g/dL Hematocrit 28.5 % Mean Corpuscular Volume 92.5 fL Mean Corpuscular Hemoglobin 28.9 pg Mean Corpuscular Hemoglobin Concent 31.2 g/dl RDW Standard Deviation 61.4 fL RDW Coefficient of Variation 18.0 % Platelet Count 257 K/uL Mean Platelet Volume 10.1 fL Sodium Level 133 mmol/L Potassium Level 4.4 mmol/L Chloride Level 96 mmol/L Carbon Dioxide Level 32 mmol/L Anion Gap 5.0 mmol/L Blood Urea Nitrogen 18 mg/dl Creatinine 0.77 mg/dl Est Creatinine Clear Calc Drug Dose 160.4 ml/min Estimated GFR () 119.2 Estimated GFR (Non- 102.9 BUN/Creatinine Ratio 23.8 Random Glucose 160 mg/dl Calcium Level 9.0 mg/dl Phosphorus Level 1.8 mg/dl Magnesium Level 2.2 mg/dl Bedside Glucose 136 mg/dl Resident Tracking Resident Involvement: Resident Care Provided Care Provided: Adult Hospital Medicine
[2017-02-21 09:37] LABS: ALBUMIN 1.9 gm/dl (3.4-5.0); ALKALINE PHOSPHATASE 77 U/L (45-117); ALT/SGPT 17 U/L (12-78); AST/SGOT 47 U/L (15-37); LIPASE 68 U/L (73-393); TOTAL PROTEIN 5.9 gm/dl (6.4-8.2)
[2017-02-21] MEDS ORDERED: SODIUM PHOSPHATE INJ 21 MMOL in SODIUM CHLORIDE 0.9% 500ML 500 ML IV ONE (09:45)
[2017-02-21] MEDS: ASPIRIN 325 MG ECTAB PO SCH (09:46)
[2017-02-21] MEDS ORDERED: NURSING VERBAL MED ORDER ONE (10:00)
[2017-02-21] MEDS: LEVOFLOXACIN / D5W 750 MG in PREMIXED IN D5W 150 ML IV SCH (10:13)
[2017-02-21] MEDS ORDERED: IMPACT LIQ 1000 ML BAG OG PRN (12:15)
--- NOTE | 2017-02-21 13:37 | Progress Note ---
Internal Med Progress Note Date of Service: Feb 21, 2017. Provider Documentation: SUBJECTIVE: The patient was seen and examined Remains sedated on Vent No new issue identified Remains stable OBJECTIVE: Vital Signs-as noted below Exam: General-Remains sedated on vent No acute distress Eyes-Closed ENT-Normal Neck-Supple Lungs-Decreased breath sound bilaterally at the bases Otherwise clear Heart-Regular,no murmur appreciated Abdomen-Benign,no masses,bowel sound present Extremities-trace edema bilaterally Neuro-Remains sedated on Vent Lab data as noted below. ASSESSMENT & PLAN: This is a 56 year old male with a PMH of small cell lung CA - has undergone chemo/radiation, recent diagnosis of bilateral PE, insulin dependent DM2, diabetic polyneuropathy presents with fevers and hypoxia from [facility] Acute Hypoxic Respiratory Failure secondary to HCAP Acute hypoxic respiratory failure requiring intubation and mechanical ventilation. Contributing factors may include infection, ARDS, progressive small cell carcinoma lung, recent pulmonary embolism, suspected radiation pneumonitis. Bronchoscopy performed 02/17-results pending. CTA chest 02/18 showed resolution of previously noted PE's. Receiving broad-spectrum antibiotics with Cefepime, Levaquin and Vancomycin and intravenous methylprednisolone. Maintaining oxygenation, albeit with FIO2 of 80% and PEEP. Ongoing management per CCM and Pulmonary Medicine. Later on IV Bactrim was added Pulmonary consultation for further input Oncology consulted and input appreciated Critical but stable Minimal improvement Likely to take a few days before Extubation Radiation Pneumonitis Patient also presented during last admission with likely radiation pneumonitis As per pulmonology, patient to be on prednisone 60mg with a slow taper Patient was recently tapered down to 50mg, and his condition worsened Has been on Solumedrol 40mg IV TID Bilateral PE Patient recently diagnosed with bilateral PE Continue Lovenox injections CTA chest 02/18 showed resolution of previously noted PE's Insulin Dependent DM2 Patient is very specific regarding his insulin therapy He uses NPH 70/30 - was discharged with around 70 units in the AM and 90 units in the PM On his summary from [facility], he was requiring over 100 units BID Try 70 units BID for now, monitor for hypoglycemia, which was an issue during previous admission Consulted pharmacy glycemic control GI / NUTRITION Receiving pantoprazole for GI prophylaxis. Receiving enteral nutrition via GT. Electrolytes Imbalance Hyponatremia and hypophosphatemia Replace and monitor VTE PROPHYLAXIS Receiving therapeutic dosing of enoxaparin due to prior history of VTE. RESUSCITATION STATUS DNR DISPOSITION Critically ill. Discharge disposition to be determined. . Consultants: Pulmonary Medicine Critical Care Medicine Medical Oncology . Procedures: cardiac monitoring endotracheal intubation mechanical ventilation right internal jugular central venous catheter arterial line IV medications Remains Critical but stable Vital Signs: Date Time Temp Pulse Resp B/P (MAP) Pulse Ox O2 Delivery O2 Flow Rate FiO2 02/21/17 11:15 Mechanical Ventilator 40 02/21/17 11:15 35 02/21/17 10:08 40 02/21/17 07:35 40 02/21/17 07:35 Mechanical Ventilator 40 02/21/17 07:34 40 02/21/17 06:31 36.5 95 31 143/83 (92) 99 192/66 (88) 02/21/17 06:28 36.5 92 20 158/80 (87) 98 171/39 (86) 02/21/17 06:23 36.5 96 31 149/87 (101) 100 192/70 (95) 02/21/17 06:01 36.7 87 27 156/77 (87) 94 185/61 (89) 02/21/17 05:34 45 02/21/17 05:31 36.6 85 32 132/69 (78) 97 164/56 (77) 02/21/17 05:01 36.6 103 25 165/84 (93) 97 176/64 (94) 02/21/17 04:31 36.5 102 21 170/84 (100) 97 186/68 (102) 02/21/17 04:01 36.4 105 28 170/82 (101) 94 178/69 (98) 02/21/17 04:00 Mechanical Ventilator 40 02/21/17 04:00 40 02/21/17 03:33 45 02/21/17 03:31 36.5 79 22 141/67 (74) 93 147/52 (73) 02/21/17 03:01 36.5 78 21 133/65 (80) 96 131/55 (80) 02/21/17 02:01 36.8 78 24 121/65 (67) 95 127/49 (72) 02/21/17 01:56 50 02/21/17 01:01 36.6 90 20 149/70 (76) 96 153/51 (82) 02/21/17 00:31 36.6 99 16 147/78 (96) 97 171/65 (92) 02/21/17 00:16 36.6 101 20 166/74 (94) 96 177/63 (90) 02/21/17 00:01 36.6 101 22 136/85 (98) 98 184/66 (94) 02/21/17 00:01 Mechanical Ventilator 50 02/21/17 00:01 50 02/21/17 00:00 36.6 100 20 163/77 (91) 98 175/60 (94) 02/20/17 23:31 36.6 95 21 160/67 (91) 98 164/62 (89) 02/20/17 23:22 50 02/20/17 23:01 36.7 91 20 152/74 (80) 98 161/54 (91) 02/20/17 22:31 36.7 99 24 131/86 (93) 97 170/62 (93) 02/20/17 22:01 36.8 97 20 162/80 (99) 97 184/65 (95) 02/20/17 21:31 36.8 97 20 178/78 (97) 97 179/65 (96) 02/20/17 21:01 36.8 97 20 166/79 (97) 98 179/65 (97) 02/20/17 20:53 36.8 97 22 167/76 (97) 97 180/64 (102) 02/20/17 20:31 36.9 95 23 158/106 (98) 97 182/65 (96) 02/20/17 20:08 50 02/20/17 20:01 36.9 75 20 138/65 (71) 96 144/49 (74) 02/20/17 20:00 Mechanical Ventilator 50 02/20/17 20:00 50 02/20/17 19:31 36.7 87 22 148/74 (94) 97 156/67 (102) 02/20/17 19:19 105 174/77 02/20/17 19:12 36.7 103 22 174/77 (112) 97 185/65 (118) 02/20/17 18:08 36.7 20 164/61 (95) 95 Mechanical Ventilator 50 02/20/17 18:07 79 20 151/69 95 168/63 (87) 02/20/17 17:00 36.4 96 22 (104) 97 183/73 02/20/17 16:30 50 02/20/17 16:00 50 02/20/17 16:00 36.4 102 27 (108) 92 182/75 02/20/17 16:00 96 Mechanical Ventilator 50 02/20/17 16:00 36.6 102 28 158/135 (143) 91 Mechanical Ventilator 02/20/17 15:00 36.7 78 20 (79) 94 134/59 02/20/17 14:09 50 Lab Results: Results Past 24 Hours Test 02/20/17 14:28 02/20/17 16:15 02/20/17 18:46 02/20/17 20:18 Range/Units Bedside Glucose 180 173 163 143 70-99 mg/dl Test 02/21/17 00:03 02/21/17 04:34 02/21/17 04:35 02/21/17 05:18 Range/Units Bedside Glucose 146 79 93 127 70-99 mg/dl Test 02/21/17 05:55 02/21/17 06:37 02/21/17 09:01 Range/Units White Blood Count 11.01 4.8-10.8 K/uL Red Blood Count 3.08 4.7-6.1 M/uL Hemoglobin 8.9 14.0-18.0 g/dL Hematocrit 28.5 42-52 % Mean Corpuscular Volume 92.5 80-100 fL Mean Corpuscular Hemoglobin 28.9 25-34 pg Mean Corpuscular Hemoglobin Concent 31.2 32-36 g/dl RDW Standard Deviation 61.4 36.4-46.3 fL RDW Coefficient of Variation 18.0 11.5-14.5 % Platelet Count 257 130-400 K/uL Mean Platelet Volume 10.1 7.4-10.4 fL Sodium Level 133 136-145 mmol/L Potassium Level 4.4 3.5-5.1 mmol/L Chloride Level 96 98-107 mmol/L Carbon Dioxide Level 32 21-32 mmol/L Anion Gap 5.0 3-11 mmol/L Blood Urea Nitrogen 18 7-18 mg/dl Creatinine 0.77 0.60-1.40 mg/dl Est Creatinine Clear Calc Drug Dose 160.4 ml/min Estimated GFR () 119.2 Estimated GFR (Non- 102.9 BUN/Creatinine Ratio 23.8 10-20 Random Glucose 160 70-99 mg/dl Calcium Level 9.0 8.5-10.1 mg/dl Phosphorus Level 1.8 2.5-4.9 mg/dl Magnesium Level 2.2 1.8-2.4 mg/dl Bedside Glucose 136 70-99 mg/dl Total Bilirubin 0.1 0.2-1 mg/dl Direct Bilirubin < 0.1 0-0.2 mg/dl Aspartate Amino Transf (AST/SGOT) 47 15-37 U/L Alanine Aminotransferase (ALT/SGPT) 17 12-78 U/L Alkaline Phosphatase 77 45-117 U/L Total Protein 5.9 6.4-8.2 gm/dl Albumin 1.9 3.4-5.0 gm/dl Lipase 68 73-393 U/L Procalcitonin 0.16 0-0.5 ng/ml
[2017-02-21] MEDS: DexMEDEtomidine HCL IV 400 MCG in SODIUM CHLORIDE 0.9% 100ML 96 ML IV PRN ×3 (13:58→21:44)
[2017-02-21] MEDS: PANTOprazole INJ 40 MG in SYRINGE 0 ML IV SCH (14:10)
[2017-02-21] MEDS: INSULIN REGULAR 250 UNITS in SODIUM CHLORIDE 0.9% 250ML 250 ML IV SCH (17:55)
[2017-02-21] MEDS: ENOXAPARIN 100 MG/1ML SYR SQ SCH (20:05)
[2017-02-21] MEDS: PROSOURCE NOCARB 30ML/PKT OG SCH (20:54)
[2017-02-22] VITALS (20 sets, daily range): BP systolic 108–164; BP diastolic 48–78; PULSE 65–121; TEMP 36.9–37.6; O2SAT 89–97
[2017-02-22] MEDS: DexMEDEtomidine HCL IV 400 MCG in SODIUM CHLORIDE 0.9% 100ML 96 ML IV PRN ×3 (00:40→15:41)
[2017-02-22] MEDS: PROPOFOL IV EMULSION 10 MG/ML 100 ML VIAL IV PRN ×3 (00:45→10:32)
[2017-02-22] MEDS ORDERED: VANCOMYCIN TROUGH ONE (03:30)
[2017-02-22 04:18] LABS: CALCIUM 9.2 mg/dl (8.5-10.1); CREATININE 0.92 mg/dl (0.60-1.40); PHOSPHORUS 2.9 mg/dl (2.5-4.9); POTASSIUM 4.8 mmol/L (3.5-5.1)
[2017-02-22] MEDS: TRIMETH IV SCH ×4 (04:41→22:07)
[2017-02-22] MEDS: SULFA IV SCH ×4 (04:41→22:07)
[2017-02-22] MEDS: DEXTROSE 5% IV SCH ×4 (04:41→22:07)
[2017-02-22] MEDS: MIDAZOLAM 125MG/250ML D5W 250 ML IV PRN (04:43)
[2017-02-22] MEDS: FENTANYL 1250MCG/250ML NSS 250 ML IV PRN (04:44)
[2017-02-22] MEDS: VANCOMYCIN INJ 2,500 MG in SODIUM CHLORIDE 0.9% 500ML 500 ML IV SCH ×3 (04:44→23:41)
[2017-02-22 05:41] LABS: BASO % 0.1 %; BASO ABS # 0.01 K/uL (0-0.2); EOS % 0.3 %; EOS ABS # 0.03 K/uL (0-0.5); HEMATOCRIT 31.9 % (42-52); HEMOGLOBIN 9.8 g/dL (14.0-18.0); IG# 0.46 K/uL (0.00-0.02); LYMPH % 4.1 %; LYMPH ABS # 0.43 K/uL (1.2-3.4); MEAN CELL VOLUME 93.5 fL (80-100); MEAN CORPUSCULAR HEMOGLOBIN 28.7 pg (25-34); MEAN CORPUSCULAR HGB CONC 30.7 g/dl (32-36); MONO % 8.4 %; MONO ABS # 0.88 K/uL (0.11-0.59); NEUT % 82.7 %; NEUT ABS # 8.67 K/uL (1.4-6.5); NUCLEATED RED BLOOD CELL ABS 0.08 K/uL (0-0); PLATELET COUNT 268 K/uL (130-400); RED CELL DISTRIBUTION WIDTH CV 18.5 % (11.5-14.5); RED CELL DISTRIBUTION WIDTH SD 63.5 fL (36.4-46.3); WHITE BLOOD COUNT 10.48 K/uL (4.8-10.8)
[2017-02-22] MEDS: CEFEPIME IV 2,000 MG in SYRINGE 7.5 ML IV SCH ×3 (06:16→21:33)
[2017-02-22] MEDS: METHADONE HCL 10 MG TAB PO SCH ×5 (06:16→23:49)
[2017-02-22] MEDS: INSULIN ASPART 100 UNITS/ML 3 ML PEN SC SCH ×4 (08:00→20:41)
[2017-02-22] MEDS: ENOXAPARIN 100 MG/1ML SYR SQ SCH ×2 (08:11→20:02)
[2017-02-22] MEDS: METHYLPREDNISOLONE IV 40 MG in SYRINGE 0 ML IV SCH ×3 (08:11→23:41)
[2017-02-22] MEDS: PROSOURCE NOCARB 30ML/PKT OG SCH ×2 (08:12→20:00)
[2017-02-22] MEDS: DOCUSATE SODIUM 100 MG/10 ML UDC NG SCH ×2 (08:12→20:02)
[2017-02-22] MEDS: LEVOFLOXACIN / D5W 750 MG in PREMIXED IN D5W 150 ML IV SCH (08:12)
--- NOTE | 2017-02-22 09:25 | Critical Care Progress Note ---
Critical Care Progress Note Date of Service Feb 22, 2017. ICU Day ICU Day Number: [address] Nava Subjective No acute events overnight. became restless and had sedation increased Objective GENERAL: sedated, intubated NECK: supple, no nuchal rigidity, no adenopathy LUNGS:coarse breath sounds adolph, no wheeze, HEART: no murmurs, S1 normal and S2 normal ABDOMEN: abdomen soft normo-active bowel sounds UPPER EXTREMITIES: upper extremities are grossly normal. LOWER EXTREMITIES: No pitting edema. NEURO EXAM: GCS 3T Current SOFA Score SOFA Score Response (Comments) Value Platelets (x10) > 150 0 Bilirubin (mg/dL) < 1.2 0 Parker Coma Score < 6 4 Level of Hypotension No Hypotension 0 Creatinine (mg/dL) < 1.2 0 Total 4 Assessment & Plan 56 yo M tobacco user with h/o Small Cell Lung Carcinoma s/p chemoradiation, recent admission for radiation pneumonitis, chronic back pain , T2DM, H/o DVT ( UE) on Lovenox, HTN presenting with progressive dyspnea, Hypoxic respiratory failure [employer]/Neuro: GCS: 3T Pupils: Pinpoint, reactive Focal Signs: None Sedation/pain control: Propofol, Fentanyl, Versed , Precedex increased over night for restlessness Decreased sedation today Weaning trial today Methadone remains held Respiratory: Hypoxic respiratory failure,Small Cell Lung Carcinoma s/p chemoradiation, Pneumonia vs. Pneumonitis, Hypoxic Resp failure, saturation in 80's on high flow NC, refused BIPAP in ED Small Cell Lung Cancer: Stage IV, s/p Chemoradiation complicated by radiation pneumonitis Possible Pneumonia: empirically treating with Vancomycin, Levaquin, Cefepime , Bactrim Chest X-ray (02/21): Stable diffuse left lung consolidation with interval decrease in right lung consolidation. Vent settings: 40% FIO2/ 7 PEEP/ 20 RR/ 550 ml Weaning trial, Consider Extubation today ABG ordered Cardiovascular: HTN BP improved PRN Lopressor IV 5mg CV drips: Remains off vasoactive medications Rhythm: Sinus EKG: Sinus Tachycardia, QTc 440 Cont PO ASA Fluids/Renal: Hyponatremia, Hyperkalemia Hyponatremia resolved, Hypophosphatemia resolved Hyperkalemia: resolved Follow up repeat PRP down 3L yesterday, urine output >3 ml/kg/hr Consider DI workup UA, s. osm ordered IV Fluids: IV fluids from medications Em: yes GI/Nutrition: Feeding: Peptamen Bariatric Prophylaxis: Protonix IV ordered LFT's, Lipase Constipation: Consider adding Relistor Endocrine: T2DM Last 24 hour glucose: 117-160 Insulin protocol: Yes; Drip: No Hematology: Hx DVT Hemoglobin 9.8, possibly sec to dilution, continue to monitor F/u repeat CBC DVT prophylaxis: Lovenox Infectious Disease/Immunology: Tmax: 37.1 Antimicrobials: Vancomycin day5? Cefepime day 5/? Levaquin day 5/? Bactrim day 5/? Cultures: Blood: No growth to date MRSA: negative Resident Physician Supervision Note: I was present with Dr. Sanchez during the history and exam. I discussed the case with the resident and agree with the findings and plan as documented in the note. Any exceptions or clarifications are listed here: Patient with Small Cell Lung Ca Stage III B; s/p XRT, Chemo with evidence of Radiation Pneumonitis; p/w B/L Pneumonia clinically in ARDS; 02/22 s/p extubated; has good mental status and tolerating high flow NC; Neuro -Awake and alert; on Precedex gtt; will start weaning off; Pulm -s/p extubated this am; currently on high flow at 40%; sats 91-92%; ID - on empirical Bactrim/ Levaquin/ Vanco and Cefepime day 08/02 check rpt procalcitonin; Endo - on Insulin sliding scale + basal coverage; on Solumedrol; Renal -continues to significantly autodiurese; As of now over 10 liters negative ; At this point will start on IVF to keep up with losses; Will check serum osm; urine osm; UA; Na is normal; noted elevated bicarb of 33 but this is not a new finding as he is a chronic Co2 retainer. cr 0.9; GI - NPO post extubation; did ok at bedside nursing assessment; will decide on formal swallow eval; DVT prophylaxis - Lovenox BID for Hx of DVTs; dose adjusted by pharmacy as Xa level elevated; CV - hemodynamically stable, but BP on high side; added B chelo PRN; I have personally spent 42 minutes of critical care time in the direct management of this patient. This is a life/limb threatening event. This includes time spent evaluating patient, direct bedside care, chart review, placing orders, interpretation of diagnostic studies, discussion with consultants, patient, and family members, as well as other required patient management activities. This time is exclusive of all separately billable procedures, and teaching time and separate from and in addition to any other critical care service time. case discussed on am rounds; I personally met with patient's father today and updated him on the patient's condition as well as answered his question to the best of my ability. Meets ICU criteria for admission as still on significant amount of O2; Consults & Procedures Consultants: Pulmonary Procedures: CHEST ONE VIEW PORTABLE HISTORY: Intubated COMPARISON: Chest 02/19/2017. FINDINGS: The endotracheal tube terminates 3.7 from the butch. Nasogastric tube terminates below the diaphragm. The tip is not included on this study. Left jugular central venous catheter terminates at the proximal SVC. Bilateral airspace opacities have slightly improved. No pneumothorax. Small left pleural effusion and cardiomegaly persist. IMPRESSION: 1. Satisfactory support line placement. 2. Slight improvement in the bilateral airspace opacities. CHEST ONE VIEW PORTABLE CLINICAL HISTORY: ET PLACEMENT COMPARISON STUDY: Chest radiograph February 17, 2017 2:54 PM. FINDINGS: The tip of the endotracheal tube is 3.5 cm above the butch. A right internal jugular central line is unchanged in position. Tip of nasogastric tube is below the lower aspect of the image but at least within the proximal body of the stomach. Dense bilateral consolidation has significantly progressed since study performed this morning. There is no pneumothorax. IMPRESSION: 1. Satisfactory positioning of lines and tubes. 2. Progression of extensive bilateral opacities. This could reflect pneumonia or pulmonary edema. Data Medications: Current Inpatient Medications Medications (Trade) Dose Ordered Sig/Prince Route Start Time Stop Time Status Last Admin Dose Admin Acetaminophen (Tylenol Tab) 650 mg Q4H PRN PO 02/17/17 06:30 03/19/17 06:29 Al Hydrox/Mg Hydrox/Simethicone (Maalox Max Susp) 15 ml Q4H PRN PO 02/17/17 06:30 03/19/17 06:29 Magnesium Hydroxide (Milk Of Magnesia Susp) 30 ml Q12H PRN PO 02/17/17 06:30 03/19/17 06:29 Diazepam (Valium Tab) 2 mg BID PRN PO 02/17/17 06:30 03/19/17 06:29 Future Hold 02/17/17 11:52 2 MG Methadone HCl (Dolophine Tab) 10 mg Q6 PO 02/17/17 12:00 03/03/17 11:59 02/22/17 06:16 10 MG Ondansetron HCl (Zofran Tab) 8 mg Q8 PRN PO 02/17/17 06:30 03/19/17 06:29 Senna/Docusate Sodium (Senokot S Tab) 1 tab QDL PRN PO 02/17/17 06:30 03/19/17 06:29 Cholecalciferol (Vitamin D Tab) 5,000 inter.unit DAILY PO 02/17/17 09:00 03/19/17 08:59 Future Hold 02/17/17 08:45 5,000 INTER.UNIT Polyethylene (Miralax Powder Packet) 17 gm QDL PRN PO 02/17/17 06:30 03/19/17 06:29 Levalbuterol (Xopenex 1.25MG/ 0.5ML Neb) 1.25 mg Q6R PRN INH 02/17/17 06:30 03/19/17 06:29 Levofloxacin 750 mg/Prmx 150 ml @ 100 mls/hr Q24H IV 02/17/17 09:00 02/24/17 08:59 02/22/17 08:12 100 MLS/HR Cefepime HCl 2000 mg/Syringe 20 ml @ 5 mls/min Q8H IV 02/17/17 14:00 02/24/17 13:59 02/22/17 06:16 5 MLS/MIN Vancomycin HCl (Consult) 1 ea UD PRN N/A 02/17/17 08:30 03/19/17 08:29 Pantoprazole Sodium 40 mg/ Syringe 10 ml @ 5 mls/min Q24H IV 02/17/17 14:00 03/19/17 13:59 02/21/17 14:10 5 MLS/MIN Trimethoprim/ Sulfamethoxazole 525 mg/Dextrose 532.8125 ml @ 333 mls/hr Q6H IV 02/17/17 16:00 02/24/17 15:59 02/22/17 04:41 333 MLS/HR Acetaminophen 100 ml @ 400 mls/hr Q8H PRN IV 02/17/17 15:15 03/19/17 15:14 Methylprednisolone Sodium Succinate 40 mg/Syringe 0.64 ml @ 1.5 mls/min Q8H IV 02/17/17 16:00 03/19/17 15:14 02/22/17 08:11 1.5 MLS/MIN Fentanyl Citrate 250 ml @ 0 mls/hr Q0M PRN IV 02/17/17 15:15 03/03/17 15:14 02/22/17 04:44 35 MLS/HR Enteral Nutritional Formula (Peptamen Intense VHP) 1,000 ml DAILY@1600 OG 02/17/17 16:00 03/19/17 15:59 Future Hold 02/20/17 15:35 1,000 ML Metoprolol Tartrate (Lopressor Iv) 5 mg Q4 PRN IV 02/17/17 16:15 03/19/17 16:14 02/20/17 19:19 5 MG Propofol (Diprivan Iv Emulsion 100ml Vial) 1 dose UD PRN IV 02/17/17 20:15 02/23/17 20:14 02/22/17 04:43 1 DOSE Insulin Aspart (novoLOG ASPART) SLIDING [facility] SC 02/17/17 21:00 03/19/17 20:59 Insulin Human Regular 250 units/ Sodium Chloride 252.5 ml @ 0 mls/hr Q24H IV 02/17/17 21:15 03/19/17 21:14 02/21/17 17:55 10.8 MLS/HR Heparin Sodium (Porcine) (Heparin 10 Unit/ ml 5 ml Flush) 5 ml PRN PRN FLUSH 02/18/17 00:30 03/20/17 00:29 Docusate Sodium (coLACE SYRUP) 100 mg BID NG 02/18/17 09:00 03/20/17 08:59 02/22/17 08:12 100 MG Ioversol (Optiray 320) 111 ml UD PRN IV 02/18/17 09:45 02/22/17 09:44 Midazolam HCl 250 ml @ 0 mls/hr Q0M PRN IV 02/18/17 19:00 03/19/17 12:59 02/22/17 04:43 20 MLS/HR Vancomycin HCl 2500 mg/Sodium Chloride 550 ml @ 200 mls/hr Q10H IV 02/20/17 12:00 12/2/17 13:59 02/22/17 04:44 200 MLS/HR Enoxaparin Sodium (Lovenox Inj) 100 mg Q12H SQ 02/21/17 20:00 03/23/17 19:59 02/22/17 08:11 100 MG Enteral Nutritional Formula (Impact 1.0 Anish) 1,000 ml UD PRN OG 02/21/17 12:15 03/23/17 12:14 Enteral Nutritional Formula (Prosource No Carb) 60 ml BID OG 02/21/17 21:00 03/23/17 20:59 02/22/17 08:12 60 ML Dexmedetomidine HCl 400 mcg/ Sodium Chloride 100 ml @ 0 mls/hr Q0M PRN IV 02/21/17 14:30 02/25/17 14:29 02/22/17 00:40 46.2 MLS/HR Vital Signs: Date Time Temp Pulse Resp B/P (MAP) Pulse Ox O2 Delivery O2 Flow Rate FiO2 02/22/17 08:00 37.2 68 22 116/50 (72) 93 Mechanical Ventilator 40 111/58 (75) 02/22/17 08:00 40 02/22/17 08:00 92 Mechanical Ventilator 40 02/22/17 06:00 36.9 68 1 108/49 (68) 93 02/22/17 05:41 40 02/22/17 04:00 92 Mechanical Ventilator 40 02/22/17 04:00 37.4 75 19 130/60 (83) 92 Mechanical Ventilator 40 02/22/17 04:00 35 02/22/17 02:55 40 02/22/17 02:00 37.5 65 22 115/48 (70) 90 Mechanical Ventilator 40 02/22/17 00:01 37.5 70 26 116/50 (72) 91 02/22/17 00:01 37.5 70 26 116/50 (72) 91 Mechanical Ventilator 40 02/22/17 00:00 37.5 71 26 118/50 (72) 92 02/21/17 23:59 35 02/21/17 23:59 92 Mechanical Ventilator 40 02/21/17 23:23 40 02/21/17 22:00 37.2 74 26 121/54 (76) 90 Mechanical Ventilator 40 02/21/17 20:00 35 02/21/17 20:00 37.5 67 21 109/50 (69) 91 Mechanical Ventilator 40 02/21/17 20:00 91 Mechanical Ventilator 40 02/21/17 19:45 40 02/21/17 18:00 37.0 67 21 103/49 (67) 90 Mechanical Ventilator 40 02/21/17 17:53 35 02/21/17 16:00 89 Mechanical Ventilator 15.0 35 02/21/17 16:00 35 02/21/17 15:01 37.0 67 20 101/48 (65) 89 Mechanical Ventilator 35 02/21/17 15:00 37.0 67 21 101/48 (65) 89 02/21/17 14:31 36.9 73 21 105/49 (67) 89 Mechanical Ventilator 35 02/21/17 14:30 36.9 74 21 108/51 (70) 89 02/21/17 14:07 35 02/21/17 14:01 36.7 95 19 139/65 (89) 91 Mechanical Ventilator 35 02/21/17 14:00 36.7 101 28 153/-23 (35) 90 02/21/17 13:31 36.6 102 26 136/65 (88) 91 Mechanical Ventilator 35 02/21/17 13:30 36.6 102 27 141/68 (92) 91 02/21/17 13:01 36.7 99 24 145/76 (99) 91 Mechanical Ventilator 35 02/21/17 13:00 36.7 99 25 143/66 (91) 93 02/21/17 12:31 36.8 77 22 108/51 (70) 91 02/21/17 12:30 36.8 77 21 107/50 (69) 91 Mechanical Ventilator 35 02/21/17 12:01 36.8 77 20 105/51 (69) 90 02/21/17 12:00 36.8 78 20 110/52 (71) 90 02/21/17 11:39 40 02/21/17 11:30 36.9 78 21 107/52 (70) 91 Mechanical Ventilator 35 02/21/17 11:15 Mechanical Ventilator 40 02/21/17 11:15 35 02/21/17 11:01 36.9 82 22 112/54 (73) 93 02/21/17 11:00 36.9 81 20 112/53 (72) 93 Mechanical Ventilator 35 02/21/17 10:31 36.9 87 23 117/54 (75) 93 02/21/17 10:30 36.9 86 22 118/55 (76) 93 02/21/17 10:08 40 02/21/17 10:01 36.9 87 22 112/53 (72) 92 Mechanical Ventilator 35 02/21/17 10:00 36.9 87 22 119/57 (77) 93 02/21/17 09:31 36.8 87 21 116/55 (75) 91 Mechanical Ventilator 35 02/21/17 09:30 36.8 86 22 112/52 (72) 92 Laboratory Results: Last 24 Hours Test 02/21/17 11:13 02/21/17 13:27 02/21/17 14:02 02/21/17 15:23 Bedside Glucose 103 mg/dl 140 mg/dl 112 mg/dl Phosphorus Level 3.0 mg/dl Test 02/21/17 19:28 02/21/17 20:38 02/21/17 21:27 02/21/17 22:46 Bedside Glucose 90 mg/dl 91 mg/dl 100 mg/dl 88 mg/dl Test 02/21/17 23:40 02/22/17 00:36 02/22/17 01:22 02/22/17 03:30 Bedside Glucose 138 mg/dl 140 mg/dl 129 mg/dl Sodium Level 136 mmol/L Potassium Level 4.8 mmol/L Chloride Level 101 mmol/L Carbon Dioxide Level 33 mmol/L Anion Gap 2.0 mmol/L Blood Urea Nitrogen 24 mg/dl Creatinine 0.92 mg/dl Est Creatinine Clear Calc Drug Dose 134.3 ml/min Estimated GFR () 108.9 Estimated GFR (Non- 94.0 BUN/Creatinine Ratio 25.6 Random Glucose 117 mg/dl Calcium Level 9.2 mg/dl Phosphorus Level 2.9 mg/dl Magnesium Level 2.3 mg/dl Vancomycin Level Trough 16.5 mcg/ml Test 02/22/17 03:34 02/22/17 04:33 02/22/17 05:26 02/22/17 05:49 Bedside Glucose 115 mg/dl 120 mg/dl White Blood Count 10.48 K/uL Red Blood Count 3.41 M/uL Hemoglobin 9.8 g/dL Hematocrit 31.9 % Mean Corpuscular Volume 93.5 fL Mean Corpuscular Hemoglobin 28.7 pg Mean Corpuscular Hemoglobin Concent 30.7 g/dl Platelet Count 268 K/uL Mean Platelet Volume 10.0 fL Neutrophils (%) (Auto) 82.7 % Lymphocytes (%) (Auto) 4.1 % Monocytes (%) (Auto) 8.4 % Eosinophils (%) (Auto) 0.3 % Basophils (%) (Auto) 0.1 % Neutrophils # (Auto) 8.67 K/uL Lymphocytes # (Auto) 0.43 K/uL Monocytes # (Auto) 0.88 K/uL Eosinophils # (Auto) 0.03 K/uL Basophils # (Auto) 0.01 K/uL RDW Standard Deviation 63.5 fL RDW Coefficient of Variation 18.5 % Immature Granulocyte % (Auto) 4.4 % Immature Granulocyte # (Auto) 0.46 K/uL Nucleated RBC Absolute Count (auto) 0.08 K/uL Nucleated Red Blood Cells % 0.8 % Blood Gas Sample Site Art Line Bedside Blood Gas pH (LAB) 7.47 Bedside Blood Gas pCO2 (LAB) 49 mmHg Bedside Blood Gas pO2 (LAB) 74 mmHg Bedside Blood Gas HCO3 (LAB) 35 meq/L Bedside Blood Gas Total CO2 37 mEq/l Bedside Blood Gas Base Excess (LAB) 12.0 meq/L Bedside Blood Gas O2 Saturation 95.0 % Devin Test NA Oxygen Delivery Device Ventilator Bedside Oxygen Rate (breaths/min) 20 Blood Gas Minute Ventilation 15.3 Bedside FiO2 40 % Blood Gas Tidal Volume 550 Blood Gas PEEP 7 Test 02/22/17 09:21 Resident Tracking Resident Involvement: Resident Care Provided Care Provided: Adult Hospital Medicine
--- NOTE | 2017-02-22 10:25 | Pharmacy Progress Note ---
Pharmacy Abx Dose Short Note Date of Service Feb 22, 2017. Assessment & Plan Assessment * 56 yo M with hypoxic respiratory failure/sepsis 2nd HAP. Was transferred to ICU 02/17 shortly after admit 2nd inability to maintain O2 saturations. Patient remains intubated and critically ill in ICU * Afebrile x12 hours * WBC trending down * On cefepime, levofloxacin, and vancomycin since 02/17 AM. Bactrim added PM. * PMH * Recent admission at [facility] January 2017 for PE. * Hx small cell lung CA (previous chemo/radiation), radiation pneumonitis. * SCr stable and at/near baseline Vancomycin * Nasal MRSA negative, but may be falsely negative 2nd obstructive pathology due to SCLC. * Goal vancomycin trough 15-20 mcg/mL * Trough of 16.5 mcg/mL is therapeutic. * It was anticipated that patient would accumulate vancomycin d/t obesity (BMI 39kg/m2), however, this does not appear to be the case. Plan * Continue Vancomycin 2500mg IV q10h * No further levels have been ordered at this time. Patient will complete therapy in 2 days. Will order repeat vanc level if patient's duration of therapy is extended. Pharmacy will continue to follow and will adjust dose/frequency as necessary. Thank you
[2017-02-22] MEDS ORDERED: NORMOSOL R 1,000 ML IV SCH (10:30)
[2017-02-22] MEDS ORDERED: FENTANYL CITRATE INJ 50 MCG/1 ML 2 ML VIAL ONE (10:42)
[2017-02-22] MEDS ORDERED: NURSING VERBAL MED ORDER ONE (10:45)
[2017-02-22] MEDS: PANTOprazole INJ 40 MG in SYRINGE 0 ML IV SCH (13:41)
--- NOTE | 2017-02-22 15:11 | Progress Note ---
Internal Med Progress Note Date of Service: Feb 22, 2017. Provider Documentation: SUBJECTIVE: The patient was seen and examined Remains sedated on Vent No new issue identified except having profuse diuresis Otherwise Remains stable OBJECTIVE: Vital Signs-as noted below Exam: General-Remains sedated on vent No acute distress Eyes-Closed ENT-Normal Neck-Supple Lungs-Decreased breath sound bilaterally at the bases Otherwise clear Heart-Regular,no murmur appreciated Abdomen-Benign,no masses,bowel sound present Extremities-trace edema bilaterally Neuro-Remains sedated on Vent Lab data as noted below. ASSESSMENT & PLAN: This is a 56 year old male with a PMH of small cell lung CA - has undergone chemo/radiation, recent diagnosis of bilateral PE, insulin dependent DM2, diabetic polyneuropathy presents with fevers and hypoxia from [facility] Acute Hypoxic Respiratory Failure secondary to HCAP Acute hypoxic respiratory failure requiring intubation and mechanical ventilation. Contributing factors may include infection, ARDS, progressive small cell carcinoma lung, recent pulmonary embolism, suspected radiation pneumonitis. Bronchoscopy performed 02/17-results pending. CTA chest 02/18 showed resolution of previously noted PE's. Receiving broad-spectrum antibiotics with Cefepime, Levaquin and Vancomycin and intravenous methylprednisolone. Maintaining oxygenation, albeit with FIO2 of 80% and PEEP. Ongoing management per CCM and Pulmonary Medicine. Later on IV Bactrim was added Pulmonary consultation for further input Oncology consulted and input appreciated Minimal improvement Likely to take a few days before Extubation Progressive small cell carcinoma lung Radiation Pneumonitis Patient also presented during last admission with likely radiation pneumonitis As per pulmonology, patient to be on prednisone 60mg with a slow taper Patient was recently tapered down to 50mg, and his condition worsened Appreciate Oncology input Has been on Solumedrol 40mg IV TID Bilateral PE Patient recently diagnosed with bilateral PE Continue Lovenox injections CTA chest 02/18 showed resolution of previously noted PE's Insulin Dependent DM2 Patient is very specific regarding his insulin therapy He uses NPH 70/30 - was discharged with around 70 units in the AM and 90 units in the PM On his summary from [facility], he was requiring over 100 units BID Try 70 units BID for now, monitor for hypoglycemia, which was an issue during previous admission Consulted pharmacy glycemic control GI / NUTRITION Receiving pantoprazole for GI prophylaxis. Receiving enteral nutrition via GT. Started on TPN Electrolytes Imbalance Hyponatremia and hypophosphatemia Replace and monitor VTE PROPHYLAXIS Receiving therapeutic dosing of enoxaparin due to prior history of VTE. RESUSCITATION STATUS DNR DISPOSITION Critically ill. Discharge disposition to be determined. . Consultants: Pulmonary Medicine Critical Care Medicine Medical Oncology . Procedures: cardiac monitoring endotracheal intubation mechanical ventilation right internal jugular central venous catheter arterial line IV medications Remains Critical but stable Vital Signs: Date Time Temp Pulse Resp B/P (MAP) Pulse Ox O2 Delivery O2 Flow Rate FiO2 02/22/17 14:00 37.1 74 20 130/54 (79) 94 High Flow Oxygen 40.0 40 02/22/17 12:01 37.2 80 28 143/78 (99) 94 Mechanical Ventilator 40 02/22/17 12:00 93 Mechanical Ventilator 40 02/22/17 12:00 37.2 82 24 148/65 (92) 97 Mechanical Ventilator 40 02/22/17 12:00 40 02/22/17 11:20 40 02/22/17 10:50 40 02/22/17 10:43 40 02/22/17 10:01 37.2 80 25 140/70 (93) 92 Mechanical Ventilator 40 02/22/17 10:00 37.2 83 28 141/61 (87) 92 Mechanical Ventilator 40 02/22/17 08:00 37.2 68 22 116/50 (72) 93 Mechanical Ventilator 40 111/58 (75) 02/22/17 08:00 40 02/22/17 08:00 92 Mechanical Ventilator 40 02/22/17 06:00 36.9 68 1 108/49 (68) 93 02/22/17 05:41 40 02/22/17 04:00 92 Mechanical Ventilator 40 02/22/17 04:00 37.4 75 19 130/60 (83) 92 Mechanical Ventilator 40 02/22/17 04:00 35 02/22/17 02:55 40 02/22/17 02:00 37.5 65 22 115/48 (70) 90 Mechanical Ventilator 40 02/22/17 00:01 37.5 70 26 116/50 (72) 91 02/22/17 00:01 37.5 70 26 116/50 (72) 91 Mechanical Ventilator 40 02/22/17 00:00 37.5 71 26 118/50 (72) 92 02/21/17 23:59 35 02/21/17 23:59 92 Mechanical Ventilator 40 02/21/17 23:23 40 02/21/17 22:00 37.2 74 26 121/54 (76) 90 Mechanical Ventilator 40 02/21/17 20:00 35 02/21/17 20:00 37.5 67 21 109/50 (69) 91 Mechanical Ventilator 40 02/21/17 20:00 91 Mechanical Ventilator 40 02/21/17 19:45 40 02/21/17 18:00 37.0 67 21 103/49 (67) 90 Mechanical Ventilator 40 02/21/17 17:53 35 02/21/17 16:00 89 Mechanical Ventilator 15.0 35 02/21/17 16:00 35 Lab Results: Results Past 24 Hours Test 02/21/17 15:23 02/21/17 19:28 02/21/17 20:38 02/21/17 21:27 Range/Units Bedside Glucose 112 90 91 100 70-99 mg/dl Test 02/21/17 22:46 02/21/17 23:40 02/22/17 00:36 02/22/17 01:22 Range/Units Bedside Glucose 88 138 140 129 70-99 mg/dl Test 02/22/17 02:24 02/22/17 03:30 02/22/17 03:34 02/22/17 04:33 Range/Units Bedside Glucose 104 115 120 70-99 mg/dl Sodium Level 136 136-145 mmol/L Potassium Level 4.8 3.5-5.1 mmol/L Chloride Level 101 98-107 mmol/L Carbon Dioxide Level 33 21-32 mmol/L Anion Gap 2.0 3-11 mmol/L Blood Urea Nitrogen 24 7-18 mg/dl Creatinine 0.92 0.60-1.40 mg/dl Est Creatinine Clear Calc Drug Dose 134.3 ml/min Estimated GFR () 108.9 Estimated GFR (Non- 94.0 BUN/Creatinine Ratio 25.6 10-20 Random Glucose 117 70-99 mg/dl Calcium Level 9.2 8.5-10.1 mg/dl Phosphorus Level 2.9 2.5-4.9 mg/dl Magnesium Level 2.3 1.8-2.4 mg/dl Vancomycin Level Trough 16.5 SEE COMMENT mcg/ml Test 02/22/17 05:26 02/22/17 05:49 02/22/17 09:15 02/22/17 09:21 Range/Units White Blood Count 10.48 4.8-10.8 K/uL Red Blood Count 3.41 4.7-6.1 M/uL Hemoglobin 9.8 14.0-18.0 g/dL Hematocrit 31.9 42-52 % Mean Corpuscular Volume 93.5 80-100 fL Mean Corpuscular Hemoglobin 28.7 25-34 pg Mean Corpuscular Hemoglobin Concent 30.7 32-36 g/dl Platelet Count 268 130-400 K/uL Mean Platelet Volume 10.0 7.4-10.4 fL Neutrophils (%) (Auto) 82.7 % Lymphocytes (%) (Auto) 4.1 % Monocytes (%) (Auto) 8.4 % Eosinophils (%) (Auto) 0.3 % Basophils (%) (Auto) 0.1 % Neutrophils # (Auto) 8.67 1.4-6.5 K/uL Lymphocytes # (Auto) 0.43 1.2-3.4 K/uL Monocytes # (Auto) 0.88 0.11-0.59 K/uL Eosinophils # (Auto) 0.03 0-0.5 K/uL Basophils # (Auto) 0.01 0-0.2 K/uL RDW Standard Deviation 63.5 36.4-46.3 fL RDW Coefficient of Variation 18.5 11.5-14.5 % Immature Granulocyte % (Auto) 4.4 % Immature Granulocyte # (Auto) 0.46 0.00-0.02 K/uL Nucleated RBC Absolute Count (auto) 0.08 0-0 K/uL Nucleated Red Blood Cells % 0.8 % Blood Gas Sample Site Art Line Bedside Blood Gas pH (LAB) 7.47 7.35-7.45 Bedside Blood Gas pCO2 (LAB) 49 35-46 mmHg Bedside Blood Gas pO2 (LAB) 74 80-95 mmHg Bedside Blood Gas HCO3 (LAB) 35 19-24 meq/L Bedside Blood Gas Total CO2 37 24-31 mEq/l Bedside Blood Gas Base Excess (LAB) 12.0 -9-1.8 meq/L Bedside Blood Gas O2 Saturation 95.0 90-95 % Devin Test NA Oxygen Delivery Device Ventilator Bedside Oxygen Rate (breaths/min) 20 Blood Gas Minute Ventilation 15.3 Bedside FiO2 40 % Blood Gas Tidal Volume 550 Blood Gas PEEP 7 Urine Color YELLOW Urine Appearance CLEAR CLEAR Urine pH 7.0 4.5-7.5 Urine Specific [place] 1.021 1.000-1.030 Urine Protein NEG NEG Urine Glucose (UA) NEG NEG Urine Ketones NEG NEG Urine Occult Blood 2+ NEG Urine Nitrite NEG NEG Urine Bilirubin NEG NEG Urine Urobilinogen NEG NEG Urine Leukocyte Esterase NEG NEG Urine WBC (Auto) 1-5 0-5 /hpf Urine RBC (Auto) >30 0-4 /hpf Urine Hyaline Casts (Auto) 0 0-5 /lpf Urine Epithelial Cells (Auto) 5-10 0-5 /lpf Urine Bacteria (Auto) NEG NEG Osmolality 298 280-300 mOsm/kg
[2017-02-22] MEDS: SODIUM CHLORIDE 0.45% 1000ML 1,000 ML IV SCH (18:14)
--- NOTE | 2017-02-22 18:30 | Hematology/Oncology Prog Note ---
Hematology/Onc Progress Note Date of Service Feb 22, 2017. Subjective I saw him at bedside, his [id number] was also at bedside, earlier in the day he was extubated, he is receiving oxygen at 40%, O2 saturation is ranging from 89-94%, otherwise hemodynamically stable, no fever, leg edema has improved, continues to have significant urinary output, now receiving IV hydration to match the fluid lost, also receiving broad-spectrum antibiotic therapy along with IV steroid, so far culture reports from bronchial washing negative, Reviewed blood workup done today, stable hemoglobin level around 9.8 g/dL, normal white blood cell count and platelet count, serum creatinine level 0.9, normal calcium 9.2, normal phosphorus and magnesium level noted, is also receiving Lovenox for bilateral lower extremity DVT, no new bleeding complications, Anti-Xa level was around 1.37 on 02/20/2017. Also spoke with the patient 's condition with [id number] who was at bedside, now cord status is DNR, she asked me questions about whether he has lung cancer (small-cell) or not at this time, I told her that it is likely that he may have some residual lung cancer after recent combined chemoradiation treatment but it would be difficult to evaluate at this time, planning to evaluate once he gets better, similarly will also evaluate for distant metastatic disease at that time but at this time his clinical condition may change. Will continue with the current the ICU management. Dr. Brett Gale Hem/Onc Vital Signs Vital Signs Past 12 Hours Date Time Temp Pulse Resp B/P (MAP) Pulse Ox O2 Delivery O2 Flow Rate FiO2 02/22/17 16:01 37.2 77 25 144/61 (88) 89 High Flow Oxygen 40.0 02/22/17 16:00 High Flow Oxygen 40.0 40 02/22/17 15:01 37.1 73 31 139/59 (85) 91 High Flow Oxygen 40.0 02/22/17 14:00 37.1 74 20 130/54 (79) 94 High Flow Oxygen 40.0 40 02/22/17 12:01 37.2 80 28 143/78 (99) 94 Mechanical Ventilator 40 02/22/17 12:00 93 Mechanical Ventilator 40 02/22/17 12:00 37.2 82 24 148/65 (92) 97 Mechanical Ventilator 40 02/22/17 12:00 40 02/22/17 11:20 40 02/22/17 10:50 40 02/22/17 10:43 40 02/22/17 10:01 37.2 80 25 140/70 (93) 92 Mechanical Ventilator 40 02/22/17 10:00 37.2 83 28 141/61 (87) 92 Mechanical Ventilator 40 02/22/17 08:00 37.2 68 22 116/50 (72) 93 Mechanical Ventilator 40 111/58 (75) 02/22/17 08:00 40 02/22/17 08:00 92 Mechanical Ventilator 40
[2017-02-22] MEDS ORDERED: SODIUM CHLORIDE 0.65% NA SOLN 45 ML (OCEAN) ONE (18:31)
[2017-02-22 19:49] LABS: CALCIUM 9.4 mg/dl (8.5-10.1); CREATININE 0.93 mg/dl (0.60-1.40); POTASSIUM 4.6 mmol/L (3.5-5.1)
[2017-02-22] MEDS: INSULIN REGULAR 250 UNITS in SODIUM CHLORIDE 0.9% 250ML 250 ML IV SCH (21:38)
[2017-02-23] VITALS (21 sets, daily range): BP systolic 141–213; BP diastolic 72–117; PULSE 98–136; TEMP 36.8–37.6; O2SAT 84–98
[2017-02-23] MEDS: METOPROLOL TARTRATE 1 MG/ML VIAL IV PRN ×3 (00:34→18:21)
[2017-02-23 01:12] LABS: CALCIUM 9.3 mg/dl (8.5-10.1); CREATININE 0.9 mg/dl (0.60-1.40); POTASSIUM 4.1 mmol/L (3.5-5.1)
[2017-02-23] MEDS: SODIUM CHLORIDE 0.45% 1000ML 1,000 ML IV SCH ×3 (02:20→14:23)
[2017-02-23] MEDS ORDERED: D5W AND 1/2NSS 1,000 ML IV SCH (03:00)
[2017-02-23] MEDS: TRIMETH IV SCH ×2 (04:10→11:05)
[2017-02-23] MEDS: DEXTROSE 5% IV SCH ×2 (04:10→11:05)
[2017-02-23] MEDS: SULFA IV SCH ×2 (04:10→11:05)
[2017-02-23] MEDS: CEFEPIME IV 2,000 MG in SYRINGE 7.5 ML IV SCH ×2 (05:28→14:24)
[2017-02-23] MEDS: METHADONE HCL 10 MG TAB PO SCH ×3 (05:28→18:18)
[2017-02-23 07:23] LABS: HEMATOCRIT 35.8 % (42-52); HEMOGLOBIN 11.2 g/dL (14.0-18.0); MEAN CORPUSCULAR HEMOGLOBIN 28.8 pg (25-34); MEAN CORPUSCULAR HGB CONC 31.3 g/dl (32-36); MEAN PLATELET VOLUME 10.3 fL (7.4-10.4); NUCLEATED RED BLOOD CELL ABS 0.07 K/uL (0-0); PLATELET COUNT 365 K/uL (130-400); RED CELL DISTRIBUTION WIDTH CV 19.4 % (11.5-14.5); WHITE BLOOD COUNT 14.51 K/uL (4.8-10.8)
[2017-02-23] MEDS: FENTANYL CITRATE INJ 50 MCG/1 ML 2 ML VIAL IV PRN ×4 (07:35→19:32)
[2017-02-23] MEDS: INSULIN ASPART 100 UNITS/ML 3 ML PEN SC SCH (07:36)
[2017-02-23] MEDS: ENOXAPARIN 100 MG/1ML SYR SQ SCH (07:37)
[2017-02-23] MEDS: LEVOFLOXACIN / D5W 750 MG in PREMIXED IN D5W 150 ML IV SCH (07:37)
[2017-02-23] MEDS: DOCUSATE SODIUM 100 MG/10 ML UDC NG SCH ×2 (07:38→20:35)
[2017-02-23] MEDS: PROSOURCE NOCARB 30ML/PKT OG SCH ×2 (07:38→20:36)
[2017-02-23] MEDS: METHYLPREDNISOLONE IV 40 MG in SYRINGE 0 ML IV SCH (07:38)
[2017-02-23 07:54] LABS: CALCIUM 9.5 mg/dl (8.5-10.1)
[2017-02-23] MEDS ORDERED: SODIUM CHLORIDE 0.65% NA SOLN 45 ML (OCEAN) ONE (08:20)
[2017-02-23] MEDS ORDERED: INSULIN GLARGINE SOLOSTAR 100 UNITS/ML 3 ML PEN SC ONE ×2 (09:30→15:00)
[2017-02-23] MEDS ORDERED: PHARMACY GLYCEMIC MGMT CONSULT PRN (09:30)
[2017-02-23] MEDS: DIAZEPAM 2MG TAB PO PRN ×2 (09:36→21:56)
[2017-02-23] MEDS: VANCOMYCIN INJ 2,500 MG in SODIUM CHLORIDE 0.9% 500ML 500 ML IV SCH (09:56)
--- NOTE | 2017-02-23 10:27 | Critical Care Progress Note ---
Critical Care Progress Note Date of Service Feb 23, 2017. ICU Day ICU Day Number: [address] Nava Subjective No acute events. He is off sedation and awake/alert. Patient continues to have unusually high urine output. Objective GENERAL: off sedation, s/p extubation NECK: supple, no nuchal rigidity, no adenopathy LUNGS:coarse breath sounds adolph, no wheeze, HEART: no murmurs, S1 normal and S2 normal ABDOMEN: abdomen soft normo-active bowel sounds UPPER EXTREMITIES: upper extremities are grossly normal. LOWER EXTREMITIES: No pitting edema. 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 Pneumonitis, Hypoxic Resp failure, saturation in 80's on high flow NC, refused BIPAP in ED Small Cell Lung Cancer: Stage IV, s/p Chemoradiation complicated by radiation pneumonitis Possible Pneumonia: empirically treating with Vancomycin, Levaquin, Cefepime , Bactrim Chest X-ray (02/21): Stable diffuse left lung consolidation with interval decrease in right lung consolidation. On High flow O2 at 40 %, saturating adequately, attempt to wean to NC Will need ongoing Chest physiotherapy, Incentive Spirometry, Nebulizer treatment Cardiovascular: HTN BP improved PRN Lopressor IV 5mg CV drips: Remains off vasoactive medications Rhythm: Sinus EKG: Sinus Tachycardia, QTc 440 Cont PO ASA Fluids/Renal: Hyponatremia, Hyperkalemia Hyponatremia: 136-->132 Hypophosphatemia resolved Hyperkalemia: resolved Follow up repeat PRP down > 3.7 L yesterday, urine output >3 ml/kg/hr Cumulative urine ouput: 46 L -Considering Diabetes Insipidus as etiology given increased UO - Consult Endocrinology for further input IV Fluids: 1/2 NS @ 125 mls/hr Em: yes GI/Nutrition: Feeding: NPO Prophylaxis: Protonix IV Lipase unremarkable, LFTS. trended down Constipation: Colace, PRN Dulcolax, Swallowing study today Endocrine: T2DM Last 24 hour glucose: 158-197 Insulin protocol: Yes; Drip: No Hematology: Hx DVT Hemoglobin 11.2 F/u repeat CBC DVT prophylaxis: Lovenox Infectious Disease/Immunology: Tmax: 37.6 Antimicrobials: Vancomycin day6? Cefepime day 6/? Levaquin day 6/? Bactrim day 6/? Cultures: Blood: No growth to date MRSA: negative ADDENDUM - patient having increased difficulty breathing, was switched to BIPAP Resident Physician Supervision Note: I was present with Dr. Sanchez during the history and exam. I discussed the case with the resident and agree with the findings and plan as documented in the note. Any exceptions or clarifications are listed here: Patient with Small Cell Lung Ca Stage III B; s/p XRT, Chemo with evidence of Radiation Pneumonitis; p/w B/L Pneumonia clinically in ARDS; 02/22 s/p extubated; has good mental status and tolerating high flow NC; since got Lasix IV 20 mg x 1 with significant diuresis in excess of 40 liters over following 6 days and low Urine osmolarity c/w Diabetes Insipidus. on 02/23 was taken OOB and developed persistent tachycardia; c/o dyspnea and was placed on BIPAP 10/5 @ 40%; responding to Fentanyl IVP; Neuro -Awake and alert; on Diazepam for agitation; Hx of being on Methadone which is continued; Off Precedex gtt; Pulm -s/p extubated this am; Will alteranate BIPAP to high Flow/NC as tolerated; Check CXR; will check CXR and do chest PT ( percussion bed vs vest) to help with secretions ; ID - will stop Abx at this point as no evidence of active infection after 7 day empiric course; s/p Bronch with negative results; procalcitonin is 0.16 on 02/21 Endo - on Insulin sliding scale + basal coverage; on Solumedrol --> started to taper; Renal -significant amounts of dilute urine with Urine osm of 300's c/w Diabetes Insipidus; on 03/27 NS at 150 cc/h and liberal allowance to water access ( if able to swallow ) to keep up with losses; Na is slightly on lower side; Renal consulted and Endo consult is pending; cr 1.0 GI - NPO post extubation; did ok at bedside nursing assessment; swallow eval; DVT prophylaxis - Lovenox BID for Hx of DVTs; dose adjusted by pharmacy based on Xa level. CV - hemodynamically stable, but BP on high side 02/23 - with significant tachycardia while OOB which i suspect is due to being tired, but cannot r/o other causes such as respiratory distress; c.w Beta blockers PRN Other - OOB today; PT/OT' I have personally spent 47 minutes of critical care time in the direct management of this patient. This is a life/limb threatening event. This includes time spent evaluating patient, direct bedside care, chart review, placing orders, interpretation of diagnostic studies, discussion with consultants, patient, and family members, as well as other required patient management activities. This time is exclusive of all separately billable procedures, and teaching time and separate from and in addition to any other critical care service time. case discussed on am rounds; Meets ICU criteria for admission as still on significant amount of O2 and BIPAP; Consults & Procedures Consultants: Pulmonary Procedures: CHEST ONE VIEW PORTABLE HISTORY: Intubated COMPARISON: Chest 02/19/2017. FINDINGS: The endotracheal tube terminates 3.7 from the butch. Nasogastric tube terminates below the diaphragm. The tip is not included on this study. Left jugular central venous catheter terminates at the proximal SVC. Bilateral airspace opacities have slightly improved. No pneumothorax. Small left pleural effusion and cardiomegaly persist. IMPRESSION: 1. Satisfactory support line placement. 2. Slight improvement in the bilateral airspace opacities. CHEST ONE VIEW PORTABLE CLINICAL HISTORY: ET PLACEMENT COMPARISON STUDY: Chest radiograph February 17, 2017 2:54 PM. FINDINGS: The tip of the endotracheal tube is 3.5 cm above the butch. A right internal jugular central line is unchanged in position. Tip of nasogastric tube is below the lower aspect of the image but at least within the proximal body of the stomach. Dense bilateral consolidation has significantly progressed since study performed this morning. There is no pneumothorax. IMPRESSION: 1. Satisfactory positioning of lines and tubes. 2. Progression of extensive bilateral opacities. This could reflect pneumonia or pulmonary edema. Data Medications: Current Inpatient Medications Medications (Trade) Dose Ordered Sig/Prince Route Start Time Stop Time Status Last Admin Dose Admin Acetaminophen (Tylenol Tab) 650 mg Q4H PRN PO 02/17/17 06:30 03/19/17 06:29 Al Hydrox/Mg Hydrox/Simethicone (Maalox Max Susp) 15 ml Q4H PRN PO 02/17/17 06:30 03/19/17 06:29 Magnesium Hydroxide (Milk Of Magnesia Susp) 30 ml Q12H PRN PO 02/17/17 06:30 03/19/17 06:29 Diazepam (Valium Tab) 2 mg BID PRN PO 02/17/17 06:30 03/19/17 06:29 Future hold 02/23/17 09:36 2 MG Methadone HCl (Dolophine Tab) 10 mg Q6 PO 02/17/17 12:00 03/03/17 11:59 02/22/17 18:14 10 MG Ondansetron HCl (Zofran Tab) 8 mg Q8 PRN PO 02/17/17 06:30 03/19/17 06:29 Senna/Docusate Sodium (Senokot S Tab) 1 tab QDL PRN PO 02/17/17 06:30 03/19/17 06:29 Cholecalciferol (Vitamin D Tab) 5,000 inter.unit DAILY PO 02/17/17 09:00 03/19/17 08:59 Future Hold 02/17/17 08:45 5,000 INTER.UNIT Polyethylene (Miralax Powder Packet) 17 gm QDL PRN PO 02/17/17 06:30 03/19/17 06:29 Levofloxacin 750 mg/Prmx 150 ml @ 100 mls/hr Q24H IV 02/17/17 09:00 02/24/17 08:59 02/23/17 07:37 100 MLS/HR Cefepime HCl 2000 mg/Syringe 20 ml @ 5 mls/min Q8H IV 02/17/17 14:00 02/24/17 05:59 02/23/17 05:28 5 MLS/MIN Vancomycin HCl (Consult) 1 ea UD PRN N/A 02/17/17 08:30 03/19/17 08:29 Pantoprazole Sodium 40 mg/ Syringe 10 ml @ 5 mls/min Q24H IV 02/17/17 14:00 03/19/17 13:59 02/22/17 13:41 5 MLS/MIN Trimethoprim/ Sulfamethoxazole 525 mg/Dextrose 532.8125 ml @ 333 mls/hr Q6H IV 02/17/17 16:00 02/24/17 15:59 02/23/17 04:10 333 MLS/HR Acetaminophen 100 ml @ 400 mls/hr Q8H PRN IV 02/17/17 15:15 03/19/17 15:14 Methylprednisolone Sodium Succinate 40 mg/Syringe 0.64 ml @ 1.5 mls/min Q8H IV 02/17/17 16:00 03/19/17 15:14 02/23/17 07:38 1.5 MLS/MIN Metoprolol Tartrate (Lopressor Iv) 5 mg Q4 PRN IV 02/17/17 16:15 03/19/17 16:14 02/23/17 04:30 5 MG Insulin Human Regular 250 units/ Sodium Chloride 252.5 ml @ 0 mls/hr Q24H IV 02/17/17 21:15 02/23/17 16:00 02/22/17 21:38 4.8 MLS/HR Heparin Sodium (Porcine) (Heparin 10 Unit/ ml 5 ml Flush) 5 ml PRN PRN FLUSH 02/18/17 00:30 03/20/17 00:29 Docusate Sodium (coLACE SYRUP) 100 mg BID NG 02/18/17 09:00 03/20/17 08:59 02/22/17 20:02 100 MG Vancomycin HCl 2500 mg/Sodium Chloride 550 ml @ 200 mls/hr Q10H IV 02/20/17 12:00 02/24/17 05:59 02/23/17 09:56 200 MLS/HR Enoxaparin Sodium (Lovenox Inj) 100 mg Q12H SQ 02/21/17 20:00 03/23/17 19:59 02/23/17 07:37 100 MG Enteral Nutritional Formula (Impact 1.0 Anish) 1,000 ml UD PRN OG 02/21/17 12:15 03/23/17 12:14 Enteral Nutritional Formula (Prosource No Carb) 60 ml BID OG 02/21/17 21:00 03/23/17 20:59 02/22/17 08:12 60 ML Fentanyl Citrate (Fentanyl Inj) 25 mcg Q2H PRN IV 02/22/17 10:45 03/08/17 10:44 02/23/17 07:35 25 MCG Albuterol/ Ipratropium (Duoneb) 3 ml Q4R PRN INH 02/22/17 17:00 03/24/17 16:59 Sodium Chloride 1,000 ml @ 125 mls/hr Q8H IV 02/23/17 05:00 03/25/17 04:59 02/23/17 05:29 125 MLS/HR Miscellaneous Information (Consult Glycemic Management Pharmacy) 1 ea UD PRN N/A 02/23/17 09:30 03/25/17 09:29 Insulin Human Regular (novoLIN-R) SLIDING SCALE Q6 SC 02/23/17 12:00 03/25/17 11:59 Vital Signs: Date Time Temp Pulse Resp B/P (MAP) Pulse Ox O2 Delivery O2 Flow Rate FiO2 02/23/17 10:00 118 30 178/94 (122) 93 High Flow Oxygen 40.0 40 02/23/17 08:00 93 High Flow Oxygen 40.0 40 02/23/17 08:00 37.2 107 19 157/93 (114) 90 High Flow Oxygen 40.0 40 02/23/17 06:00 98 18 181/90 (120) 92 High Flow Oxygen 40.0 02/23/17 04:30 121 178/93 02/23/17 04:00 94 High Flow Oxygen 40.0 40 02/23/17 04:00 36.8 118 17 178/93 (121) 94 High Flow Oxygen 40.0 02/23/17 02:00 37.2 108 18 151/80 (103) 93 High Flow Oxygen 40.0 02/23/17 00:34 120 163/72 02/23/17 00:01 37.5 124 29 149/72 (97) 89 High Flow Oxygen 40.0 02/22/17 23:59 91 High Flow Oxygen 40.0 40 02/22/17 22:01 37.6 121 22 145/66 (92) 91 High Flow Oxygen 40.0 02/22/17 21:01 37.6 112 23 164/68 (100) 92 High Flow Oxygen 40.0 02/22/17 20:01 37.5 97 29 146/68 (94) 91 High Flow Oxygen 40.0 02/22/17 20:00 High Flow Oxygen 40.0 40 02/22/17 19:01 37.3 89 25 142/66 (91) 91 High Flow Oxygen 40.0 02/22/17 18:00 37.3 85 27 148/62 (90) 89 High Flow Oxygen 40.0 02/22/17 17:00 37.3 75 27 146/65 (92) 91 High Flow Oxygen 40.0 02/22/17 16:01 37.2 77 25 144/61 (88) 89 High Flow Oxygen 40.0 02/22/17 16:00 High Flow Oxygen 40.0 40 02/22/17 15:01 37.1 73 31 139/59 (85) 91 High Flow Oxygen 40.0 02/22/17 14:00 37.1 74 20 130/54 (79) 94 High Flow Oxygen 40.0 40 02/22/17 12:01 37.2 80 28 143/78 (99) 94 Mechanical Ventilator 40 02/22/17 12:00 93 Mechanical Ventilator 40 02/22/17 12:00 37.2 82 24 148/65 (92) 97 Mechanical Ventilator 40 02/22/17 12:00 40 02/22/17 11:20 40 02/22/17 10:50 40 02/22/17 10:43 40 Laboratory Results: Last 24 Hours Test 02/22/17 10:57 02/22/17 13:09 02/22/17 14:01 02/22/17 15:32 Bedside Glucose 132 mg/dl 92 mg/dl 88 mg/dl 85 mg/dl Test 02/22/17 16:45 02/22/17 18:07 02/22/17 18:30 02/22/17 19:08 Bedside Glucose 87 mg/dl 157 mg/dl 165 mg/dl Urine Osmolality 322 mOms/kg Test 02/22/17 19:26 02/22/17 20:05 02/22/17 20:58 02/22/17 23:08 Sodium Level 135 mmol/L Potassium Level 4.6 mmol/L Chloride Level 98 mmol/L Carbon Dioxide Level 30 mmol/L Anion Gap 7.0 mmol/L Blood Urea Nitrogen 23 mg/dl Creatinine 0.93 mg/dl Est Creatinine Clear Calc Drug Dose 132.9 ml/min Estimated GFR () 107.5 Estimated GFR (Non- 92.7 BUN/Creatinine Ratio 24.2 Random Glucose 171 mg/dl Calcium Level 9.4 mg/dl Bedside Glucose 162 mg/dl 155 mg/dl 179 mg/dl Test 02/23/17 00:44 02/23/17 00:53 02/23/17 03:23 02/23/17 07:04 Sodium Level 130 mmol/L 132 mmol/L Potassium Level 4.1 mmol/L 4.0 mmol/L Chloride Level 98 mmol/L 96 mmol/L Carbon Dioxide Level 28 mmol/L 28 mmol/L Anion Gap 4.0 mmol/L 8.0 mmol/L Blood Urea Nitrogen 22 mg/dl 26 mg/dl Creatinine 0.90 mg/dl 1.00 mg/dl Est Creatinine Clear Calc Drug Dose 137.3 ml/min 120.7 ml/min Estimated GFR () 111.8 98.5 Estimated GFR (Non- 96.5 84.9 BUN/Creatinine Ratio 24.4 25.7 Random Glucose 158 mg/dl 197 mg/dl Calcium Level 9.3 mg/dl 9.5 mg/dl Bedside Glucose 157 mg/dl 134 mg/dl White Blood Count 14.51 K/uL Red Blood Count 3.89 M/uL Hemoglobin 11.2 g/dL Hematocrit 35.8 % Mean Corpuscular Volume 92.0 fL Mean Corpuscular Hemoglobin 28.8 pg Mean Corpuscular Hemoglobin Concent 31.3 g/dl RDW Standard Deviation 65.0 fL RDW Coefficient of Variation 19.4 % Platelet Count 365 K/uL Mean Platelet Volume 10.3 fL Nucleated RBC Absolute Count (auto) 0.07 K/uL Nucleated Red Blood Cells % 0.5 % Resident Tracking Resident Involvement: Resident Care Provided Care Provided: Adult Hospital Medicine
[2017-02-23] MEDS ORDERED: BISACODYL 10 MG SUPP PR STA (10:35)
--- NOTE | 2017-02-23 10:39 | DIAGNOSTIC IMAGING REPORT ---
CHEST ONE VIEW PORTABLE CLINICAL HISTORY: sob dyspnea COMPARISON STUDY: 02/21/2017 FINDINGS: Unchanging diffuse infiltrative/consolidative changes left hemithorax. Similar right midlung infiltrative change. Various tubes and lines are unchanged in position. Interval extubation. Central catheter remains in superior vena cava. IMPRESSION: 1. Unchanging consolidative change left hemithorax. 2. Interval extubation. 3. Unchanging right midlung infiltrative process. The above report was generated using voice recognition software. It may contain grammatical, syntax or spelling errors. Electronically signed by: Sunday Mckeon M.D. 02/23/2017 10:38 AM Dictated Date/Time: 02/23/2017 10:37 AM
--- NOTE | 2017-02-23 10:40 | Progress Note ---
Internal Med Progress Note Date of Service: Feb 23, 2017. Provider Documentation: SUBJECTIVE: The patient was seen and examined S/P Extubation 02/22/17 Moderate SOB art rest Discomfort in abdomen -bowel not moved since 02/16 OBJECTIVE: Vital Signs-as noted below Exam: General-S/P Extubation Moderate distress at rest Eyes-Closed ENT-Normal Neck-Supple Lungs-Decreased breath sound bilaterally at the bases Otherwise clear Heart-Regular,no murmur appreciated Abdomen-Benign,no masses,bowel sound present Extremities-trace edema bilaterally Neuro-Remains sedated on Vent Lab data as noted below. 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 Contributing factors may include infection, ARDS, progressive small cell carcinoma lung, recent pulmonary embolism, suspected radiation pneumonitis. Bronchoscopy performed 02/17-results pending. CTA chest 02/18 showed resolution of previously noted PE's. Receiving broad-spectrum antibiotics with Cefepime, Levaquin and Vancomycin and intravenous methylprednisolone. Maintaining oxygenation, albeit with FIO2 of 80% and PEEP. Ongoing management per CCM and Pulmonary Medicine. 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 Patient also presented during last admission with likely radiation pneumonitis As per pulmonology, patient to be on prednisone 60mg with a slow taper Patient was recently tapered down to 50mg, and his condition worsened Appreciate Oncology input Has been on Solumedrol 40mg IV TID- Bilateral PE Patient recently diagnosed with bilateral PE Continue Lovenox injections CTA chest 02/18 showed resolution of previously noted PE's Insulin Dependent DM2 Patient is very specific regarding his insulin therapy He uses NPH - was discharged with around 70 units in the AM and 90 units in the PM On his summary from [facility], he was requiring over 100 units BID Try 70 units BID for now, monitor for hypoglycemia, which was an issue during previous admission Consulted pharmacy glycemic control-reasonably stable GI / NUTRITION Receiving pantoprazole for GI prophylaxis. Receiving enteral nutrition via GT. Started on TPN Will start oral feeding Electrolytes Imbalance Hyponatremia and hypophosphatemia Replace and monitor VTE PROPHYLAXIS Receiving therapeutic dosing of enoxaparin due to prior history of VTE. RESUSCITATION STATUS DNR DISPOSITION Critically ill. Discharge disposition to be determined. . Consultants: Pulmonary Medicine Critical Care Medicine Medical Oncology . Procedures: cardiac monitoring endotracheal intubation mechanical ventilation right internal jugular central venous catheter arterial line IV medications Remains Critical but stable Vital Signs: Date Time Temp Pulse Resp B/P (MAP) Pulse Ox O2 Delivery O2 Flow Rate FiO2 02/23/17 10:00 118 30 178/94 (122) 93 High Flow Oxygen 40.0 40 02/23/17 08:00 93 High Flow Oxygen 40.0 40 02/23/17 08:00 37.2 107 19 157/93 (114) 90 High Flow Oxygen 40.0 40 02/23/17 06:00 98 18 181/90 (120) 92 High Flow Oxygen 40.0 02/23/17 04:30 121 178/93 02/23/17 04:00 94 High Flow Oxygen 40.0 40 02/23/17 04:00 36.8 118 17 178/93 (121) 94 High Flow Oxygen 40.0 02/23/17 02:00 37.2 108 18 151/80 (103) 93 High Flow Oxygen 40.0 02/23/17 00:34 120 163/72 02/23/17 00:01 37.5 124 29 149/72 (97) 89 High Flow Oxygen 40.0 02/22/17 23:59 91 High Flow Oxygen 40.0 40 02/22/17 22:01 37.6 121 22 145/66 (92) 91 High Flow Oxygen 40.0 02/22/17 21:01 37.6 112 23 164/68 (100) 92 High Flow Oxygen 40.0 02/22/17 20:01 37.5 97 29 146/68 (94) 91 High Flow Oxygen 40.0 02/22/17 20:00 High Flow Oxygen 40.0 40 02/22/17 19:01 37.3 89 25 142/66 (91) 91 High Flow Oxygen 40.0 02/22/17 18:00 37.3 85 27 148/62 (90) 89 High Flow Oxygen 40.0 02/22/17 17:00 37.3 75 27 146/65 (92) 91 High Flow Oxygen 40.0 02/22/17 16:01 37.2 77 25 144/61 (88) 89 High Flow Oxygen 40.0 02/22/17 16:00 High Flow Oxygen 40.0 40 02/22/17 15:01 37.1 73 31 139/59 (85) 91 High Flow Oxygen 40.0 02/22/17 14:00 37.1 74 20 130/54 (79) 94 High Flow Oxygen 40.0 40 02/22/17 12:01 37.2 80 28 143/78 (99) 94 Mechanical Ventilator 40 02/22/17 12:00 93 Mechanical Ventilator 40 02/22/17 12:00 37.2 82 24 148/65 (92) 97 Mechanical Ventilator 40 02/22/17 12:00 40 02/22/17 11:20 40 02/22/17 10:50 40 02/22/17 10:43 40 Lab Results: Results Past 24 Hours Test 02/22/17 10:57 02/22/17 13:09 02/22/17 14:01 02/22/17 15:32 Range/Units Bedside Glucose 132 92 88 85 70-99 mg/dl Test 02/22/17 16:45 02/22/17 18:07 02/22/17 18:30 02/22/17 19:08 Range/Units Bedside Glucose 87 157 165 70-99 mg/dl Urine Osmolality 322 500-800 mOms/kg Test 02/22/17 19:26 02/22/17 20:05 02/22/17 20:58 02/22/17 23:08 Range/Units Sodium Level 135 136-145 mmol/L Potassium Level 4.6 3.5-5.1 mmol/L Chloride Level 98 98-107 mmol/L Carbon Dioxide Level 30 21-32 mmol/L Anion Gap 7.0 3-11 mmol/L Blood Urea Nitrogen 23 7-18 mg/dl Creatinine 0.93 0.60-1.40 mg/dl Est Creatinine Clear Calc Drug Dose 132.9 ml/min Estimated GFR () 107.5 Estimated GFR (Non- 92.7 BUN/Creatinine Ratio 24.2 10-20 Random Glucose 171 70-99 mg/dl Calcium Level 9.4 8.5-10.1 mg/dl Bedside Glucose 162 155 179 70-99 mg/dl Test 02/23/17 00:44 02/23/17 00:53 02/23/17 03:23 02/23/17 07:04 Range/Units Sodium Level 130 132 136-145 mmol/L Potassium Level 4.1 4.0 3.5-5.1 mmol/L Chloride Level 98 96 98-107 mmol/L Carbon Dioxide Level 28 28 21-32 mmol/L Anion Gap 4.0 8.0 3-11 mmol/L Blood Urea Nitrogen 22 26 7-18 mg/dl Creatinine 0.90 1.00 0.60-1.40 mg/dl Est Creatinine Clear Calc Drug Dose 137.3 120.7 ml/min Estimated GFR () 111.8 98.5 Estimated GFR (Non- 96.5 84.9 BUN/Creatinine Ratio 24.4 25.7 10-20 Random Glucose 158 197 70-99 mg/dl Calcium Level 9.3 9.5 8.5-10.1 mg/dl Bedside Glucose 157 134 70-99 mg/dl White Blood Count 14.51 4.8-10.8 K/uL Red Blood Count 3.89 4.7-6.1 M/uL Hemoglobin 11.2 14.0-18.0 g/dL Hematocrit 35.8 42-52 % Mean Corpuscular Volume 92.0 80-100 fL Mean Corpuscular Hemoglobin 28.8 25-34 pg Mean Corpuscular Hemoglobin Concent 31.3 32-36 g/dl RDW Standard Deviation 65.0 36.4-46.3 fL RDW Coefficient of Variation 19.4 11.5-14.5 % Platelet Count 365 130-400 K/uL Mean Platelet Volume 10.3 7.4-10.4 fL Nucleated RBC Absolute Count (auto) 0.07 0-0 K/uL Nucleated Red Blood Cells % 0.5 %
[2017-02-23] MEDS ORDERED: NURSING VERBAL MED ORDER ONE ×2 (10:45→14:15)
[2017-02-23] MEDS: ALBUT/IPRATROP 3MG/0.5MG NEB 3 ML VIAL INH PRN ×2 (10:51→14:09)
[2017-02-23] MEDS ORDERED: SOD PHOSPHATE/SOD BIPHOSPHATE ENEMA 132 ML BTL PR ONE (11:00)
--- NOTE | 2017-02-23 11:10 | NEPHROLOGY CONSULTATION ---
DATE OF CONSULTATION: 02/23/2017 DATE OF CONSULTATION: 02/23/2017 ATTENDING OF RECORD: Dr. Sarkar. REASON FOR CONSULTATION: Polyuria. HISTORY OF PRESENT ILLNESS: This is a 56-year-old male with significant history of small cell lung cancer with chemo and radiation with a history of bilateral PEs who was discharged last month on the to [facility]. The patient presented a week later on the with shortness of breath and possible pneumonia. The patient on the , , and has had 8-10 liters out a day and averaging about 6 liters in. Today the patient has had about 2-1/2 liters out so far. Weight has gone down from 138 kilos to 125 kilos over the past 5 days. The sodium levels have remained stable in the low 130s. Urine osmolality done yesterday was good at 322 and a specific gravity of 1.021. The patient admitted with multifocal pneumonia, currently on high-flow oxygen. Blood cultures are negative, currently on half normal saline at 125 mL an hour as well as vancomycin daily and insulin drip, Bactrim and Solu-Medrol 40 IV q. 8. PAST MEDICAL HISTORY: Type 2 diabetes, small cell lung cancer status post chemo and radiation, bilateral PEs, spinal stenosis, hyperlipidemia, hypertension. PAST SURGICAL HISTORY: Multiple back surgeries. FAMILY HISTORY: Significant for no renal disease. SOCIAL HISTORY: Former smoker. No alcohol, no drugs. CURRENT MEDICATIONS: Normal saline at 125 an hour, ProSource 60 mL b.i.d., Lovenox 100 mg subQ q. 12, vancomycin 2500 mg daily, insulin drip, Bactrim 525 IV q. 6, Solu-Medrol 40 IV q. 8, cefepime 2 grams IV q. 8, Protonix 40 mg IV daily, methadone 10 mg q. 6, Levaquin 750 mg IV q. 24. REVIEW OF SYSTEMS: The patient is hungry, but having difficulty with swallowing. Positive shortness of breath. No headaches, no blurry vision. No nausea, vomiting. Complaining of constipation. No rash or itching. All other review of systems otherwise negative. PHYSICAL EXAMINATION: VITAL SIGNS: Temperature 37.2, pulse 107, respiratory rate 19, blood pressure 157/93 and satting 90% on 40% high-flow oxygen. GENERAL: Awake, alert, oriented x3. EYES: No scleral icterus. EARS, NOSE, THROAT: Has high-flow oxygen in place. Moist mucous membranes. NECK: Supple. PULMONARY: Clear to auscultation. CARDIAC: Regular rate and rhythm with some mild tachycardia. ABDOMEN: Bowel sounds positive, soft, nontender. EXTREMITIES: No clubbing, cyanosis or edema. NEUROLOGICALLY: Nonfocal. DERMATOLOGIC: No rash or ulcers noted. LABORATORY DATA: Sodium level is 132, potassium is 4, chloride is 96, bicarbonate is 28, BUN is 26, creatinine is 1, glucose 197, calcium is 9.5. White count 14, H&H 11 and 35, platelet count is 365. Blood gas shows pH of 7.47, pCO2 of 49, pO2 of 74, bicarbonate 35. Urine osmol of 322. Flu negative Vancomycin levels are 16. Chest x-ray shows stable diffuse left lung consolidation with interval decrease in right lung consolidation, appropriately positioned lines and tubes. Chest thorax CTA from the shows no evidence for a PET at this time. Extensive bilateral airspace opacities, ill-defined soft tissue density within the anterior mediastinum with confluent lymphadenopathy mass at the left hilum not significantly changed. IMPRESSION AND PLAN: Polyuria. The patient's sodium levels are stable in the 130s with urine osm of 322. It is concerning that the patient is urinating about 8-10 liters a day and weight has gone down considerably since admission; however, sodium levels have remained stable. Will discuss further with endocrinology. With sodium being stable hesitant to make any changes at this time. With the polyuria there is a question of diabetes insipidus, but would expect sodium levels to be higher and urine osm to be lower. Will discuss with critical care physician as well as endocrinology before making any changes at this time. Hopefully, the polyuria starts to resolve on its own as patient clinically improves. Appreciate consultation. JANNA
[2017-02-23] MEDS: INSULIN HUMAN REGULAR SC SCH ×2 (12:00→18:22)
[2017-02-23 14:11] LABS: CALCIUM 9.3 mg/dl (8.5-10.1); CREATININE 1.09 mg/dl (0.60-1.40); POTASSIUM 4.4 mmol/L (3.5-5.1)
[2017-02-23] MEDS: PANTOprazole INJ 40 MG in SYRINGE 0 ML IV SCH (14:23)
[2017-02-23] MEDS ORDERED: INSUINJ20 SQ (15:38)
--- NOTE | 2017-02-23 15:39 | Pharmacy Progress Note ---
Pharmacy Glycemic Short Note 2 Date of Service Feb 23, 2017. OUTPATIENT ANTIDIABETIC REGIMEN: * Humulin 70/30 105 units SQ BID * Humulin-R SSI ACHS (~20 units w/ meals) * HbA1c: 6.4% (01/31/17) ASSESSMENT: * Mr Carcamo is a 56yo diabetic male who has been receiving IV insulin during ICU admission. * Insulin gtt rates had been greater than 11 units/hr, but his insulin needs have decreased significantly as his condition improves. This morning, rates were ~6 units/hr. * Patient continues on high-dose steroids (SoluMedrol 40mg IV q8h --> 30mg IV q12h tomorrow). * Antibiotics d/c'd this afternoon. * Tube feeds have been on hold since yesterday for extubation, but anticipate that those will resume? * Patient was given 50 units of Lantus x1 dose this morning, but insulin gtt continued without any rate reduction and BSGs persisted >180mg/dL. * Pharmacy is familiar with patient from past glycemic consult, but patient was difficult to manage, as he dictated most of his insulin doses and refused many doses. PLAN FOR INPATIENT GLYCEMIC CONTROL: * Basal insulin * Lantus 50 units SQ x1 dose this am, with repeat 50 units SQ x1 dose this afternoon * Will re-assess dosing tomorrow depending on patient's response overnight * Bolus insulin * Regular insulin per scale Q6hrs while NPO -- patient lists allergy to Novolog * Goal Range: Low 140 mg/dL - High 180 mg/dL * Correction Factor: 10 mg/dL/unit * Nutritional / Prandial insulin per carb ratio of 1 unit per 4 grams CHO consumed
[2017-02-23] MEDS: NORMOSOL R 1,000 ML IV SCH (15:47)
[2017-02-23] MEDS: HEPARIN 25,000 UNIT/500ML D5W 500 ML IV PRN (15:48)
[2017-02-23] MEDS ORDERED: METHYLPREDNISOLONE IV 40 MG in SYRINGE 0 ML IV SCH (20:00)
[2017-02-23] MEDS: METHYLPREDNISOLONE IV 30 MG in SYRINGE 0 ML IV SCH (20:38)
[2017-02-23 20:49] LABS: CALCIUM 9.6 mg/dl (8.5-10.1); CREATININE 1.07 mg/dl (0.60-1.40); POTASSIUM 4.5 mmol/L (3.5-5.1)
[2017-02-23 22:18] LABS: PTT PATIENT 24.6 SECONDS (21.0-31.0)
[2017-02-24] VITALS (21 sets, daily range): BP systolic 112–194; BP diastolic 2–92; PULSE 95–155; TEMP 36.6–36.8; O2SAT 91–100
[2017-02-24] MEDS: HEPARIN 25,000 UNIT/500ML D5W 500 ML IV PRN ×3 (00:20→16:31)
[2017-02-24] MEDS: METHADONE HCL 10 MG TAB PO SCH ×4 (00:21→17:58)
[2017-02-24 01:25] LABS: CALCIUM 9.4 mg/dl (8.5-10.1); POTASSIUM 4.6 mmol/L (3.5-5.1)
[2017-02-24] MEDS: NORMOSOL R 1,000 ML IV SCH ×2 (03:45→18:58)
[2017-02-24] MEDS: INSULIN HUMAN REGULAR SC SCH ×4 (06:00→18:20)
[2017-02-24] MEDS: DIAZEPAM 2MG TAB PO PRN ×2 (06:22→21:09)
[2017-02-24 06:44] LABS: BASO % 0.1 %; BASO ABS # 0.01 K/uL (0-0.2); EOS % 0.2 %; EOS ABS # 0.03 K/uL (0-0.5); HEMATOCRIT 34.4 % (42-52); HEMOGLOBIN 10.6 g/dL (14.0-18.0); IG# 0.23 K/uL (0.00-0.02); LYMPH % 5.5 %; LYMPH ABS # 0.77 K/uL (1.2-3.4); MEAN CELL VOLUME 92.2 fL (80-100); MEAN CORPUSCULAR HEMOGLOBIN 28.4 pg (25-34); MEAN CORPUSCULAR HGB CONC 30.8 g/dl (32-36); MEAN PLATELET VOLUME 9.9 fL (7.4-10.4); MONO ABS # 0.84 K/uL (0.11-0.59); NEUT % 86.6 %; NEUT ABS # 12.13 K/uL (1.4-6.5); PLATELET COUNT 309 K/uL (130-400); RED CELL DISTRIBUTION WIDTH CV 19.6 % (11.5-14.5); RED CELL DISTRIBUTION WIDTH SD 66.4 fL (36.4-46.3); WHITE BLOOD COUNT 14.01 K/uL (4.8-10.8)
[2017-02-24 06:54] LABS: PTT PATIENT 37.6 SECONDS (21.0-31.0)
[2017-02-24 07:14] LABS: PHOSPHORUS 3.3 mg/dl (2.5-4.9)
--- NOTE | 2017-02-24 07:41 | DIAGNOSTIC IMAGING REPORT ---
CHEST ONE VIEW PORTABLE HISTORY: 56 years-old Male s/p extubation status post extubation COMPARISON: Chest radiograph 02/23/2017 TECHNIQUE: Portable upright AP view of the chest FINDINGS: Cardiac silhouette is mildly enlarged, unchanged. Unchanged position of left internal jugular central venous catheter. There is no pneumothorax. Mild blunting of the left costophrenic angle suggests pleural effusion. Multifocal alveolar opacities throughout the bilateral lungs in a multilobar distribution redemonstrated, left greater than right. These findings again are most pronounced within the distribution of the left upper and midlung. There are associated air bronchograms. Disease on the right has slightly worsened. Bones of the chest are grossly intact. IMPRESSION: Persistent multilobar distribution of alveolar opacities bilaterally, left greater than right with mild progression of disease within the right midlung. The above report was generated using voice recognition software. It may contain grammatical, syntax or spelling errors. Electronically signed by: Rolan Hyde M.D. 02/24/2017 7:40 AM Dictated Date/Time: 02/24/2017 7:38 AM
--- NOTE | 2017-02-24 08:33 | Nephrology Progress Note ---
Nephrology Progress Note Date of Service: Feb 24, 2017. Subjective 56 yo male with polyuria for several days which is improving. no longer on hi flow oxygen. pt comfortable. no specific complaints. sodium levels were trending down yesterday and switched to normal saline. Objective Date Time Temp Pulse Resp B/P (MAP) Pulse Ox O2 Delivery O2 Flow Rate FiO2 02/24/17 07:00 115 21 143/92 (109) 94 BiPAP 40 02/24/17 06:00 112 20 144/78 (100) 92 BiPAP 40 02/24/17 04:41 95 BiPAP 02/24/17 04:00 113 21 132/75 (94) 91 BiPAP 40 02/24/17 03:00 117 29 140/77 (98) 91 BiPAP 40 02/24/17 02:00 120 29 142/74 (96) 92 BiPAP 40 02/24/17 01:00 137 39 154/72 (99) 92 BiPAP 40 02/24/17 00:11 95 BiPAP 02/24/17 00:00 112 22 135/77 (96) BiPAP 40 02/23/17 23:01 136 37 213/111 (145) 94 02/23/17 22:02 127 34 160/117 (131) 94 40 02/23/17 21:00 117 27 202/101 (134) 92 40 02/23/17 20:56 120 95 40 02/23/17 20:24 95 BiPAP 02/23/17 20:01 117 29 167/101 (123) 92 BiPAP 40 02/23/17 19:31 113 25 182/88 (119) 92 Oxymask 4.0 02/23/17 18:21 122 141/92 02/23/17 18:13 124 18 141/92 (108) 92 Oxymask 4.0 02/23/17 16:05 37.6 120 18 170/103 (125) 84 BiPAP 40 02/23/17 16:00 93 Oxymask 6.0 02/23/17 14:09 117 36 97 BiPAP/CPAP 40 02/23/17 14:00 37.3 113 36 177/97 (123) 98 BiPAP 40 02/23/17 13:53 117 97 40 02/23/17 12:00 93 Oxymask 6.0 02/23/17 12:00 36.8 110 31 174/92 (119) 92 Oxymask 6.0 02/23/17 10:51 117 16 94 Nasal Cannula 40.0 40 02/23/17 10:00 118 30 178/94 (122) 93 High Flow Oxygen 40.0 40 Physical Exam: General-aaox3 Eyes-no scleral icterus ENT-mmm Neck-supple Lungs-cta Heart-tachy Abdomen-bs+ s/nt/nd Extremities-no edema Neuro-nonfocal Current Inpatient Medications Medications (Trade) Dose Ordered Sig/Prince Route Start Time Stop Time Status Last Admin Dose Admin Acetaminophen (Tylenol Tab) 650 mg Q4H PRN PO 02/17/17 06:30 03/19/17 06:29 Al Hydrox/Mg Hydrox/Simethicone (Maalox Max Susp) 15 ml Q4H PRN PO 02/17/17 06:30 03/19/17 06:29 Magnesium Hydroxide (Milk Of Magnesia Susp) 30 ml Q12H PRN PO 02/17/17 06:30 03/19/17 06:29 Diazepam (Valium Tab) 2 mg BID PRN PO 02/17/17 06:30 03/19/17 06:29 Future hold 02/24/17 06:22 2 MG Methadone HCl (Dolophine Tab) 10 mg Q6 PO 02/17/17 12:00 03/03/17 11:59 02/24/17 06:22 10 MG Ondansetron HCl (Zofran Tab) 8 mg Q8 PRN PO 02/17/17 06:30 03/19/17 06:29 Senna/Docusate Sodium (Senokot S Tab) 1 tab QDL PRN PO 02/17/17 06:30 03/19/17 06:29 Cholecalciferol (Vitamin D Tab) 5,000 inter.unit DAILY PO 02/17/17 09:00 03/19/17 08:59 Future Hold 02/17/17 08:45 5,000 INTER.UNIT Polyethylene (Miralax Powder Packet) 17 gm QDL PRN PO 02/17/17 06:30 03/19/17 06:29 Pantoprazole Sodium 40 mg/ Syringe 10 ml @ 5 mls/min Q24H IV 02/17/17 14:00 03/19/17 13:59 02/23/17 14:23 5 MLS/MIN Metoprolol Tartrate (Lopressor Iv) 5 mg Q4 PRN IV 02/17/17 16:15 03/19/17 16:14 02/23/17 18:21 5 MG Heparin Sodium (Porcine) (Heparin 10 Unit/ ml 5 ml Flush) 5 ml PRN PRN FLUSH 02/18/17 00:30 03/20/17 00:29 Docusate Sodium (coLACE SYRUP) 100 mg BID NG 02/18/17 09:00 03/20/17 08:59 02/22/17 20:02 100 MG Enteral Nutritional Formula (Impact 1.0 Anish) 1,000 ml UD PRN OG 02/21/17 12:15 03/23/17 12:14 Enteral Nutritional Formula (Prosource No Carb) 60 ml BID OG 02/21/17 21:00 03/23/17 20:59 02/22/17 08:12 60 ML Fentanyl Citrate (Fentanyl Inj) 25 mcg Q2H PRN IV 02/22/17 10:45 03/08/17 10:44 02/23/17 19:32 25 MCG Albuterol/ Ipratropium (Duoneb) 3 ml Q4R PRN INH 02/22/17 17:00 03/24/17 16:59 02/23/17 14:09 3 ML Miscellaneous Information (Consult Glycemic Management Pharmacy) 1 ea UD PRN N/A 02/23/17 09:30 03/25/17 09:29 Insulin Human Regular (novoLIN-R) SLIDING SCALE Q6 SC 02/23/17 12:00 03/25/17 11:59 02/23/17 18:22 2 UNITS Methylprednisolone Sodium Succinate 30 mg/Syringe 0.48 ml @ 1.5 mls/min Q12H IV 02/23/17 20:00 03/19/17 15:14 02/23/17 20:38 1.5 MLS/MIN Parenteral Electrolyte Solution 1,000 ml @ 80 mls/hr [id number] IV 02/23/17 15:15 02/24/17 15:14 02/24/17 03:45 80 MLS/HR Heparin Sodium/ Dextrose 500 ml @ 36 mls/hr [id number] PRN IV 02/23/17 21:00 03/25/17 20:59 02/24/17 00:20 36 MLS/HR Miscellaneous Information (Nursing Heparin Iv Rate Change) 1 ea ONE ONCE N/A 02/24/17 07:30 02/24/17 07:31 UNV Last 24 Hours Test 02/23/17 08:38 02/23/17 09:59 02/23/17 11:19 02/23/17 12:19 Bedside Glucose 174 mg/dl 166 mg/dl 130 mg/dl 167 mg/dl Test 02/23/17 13:01 02/23/17 13:19 02/23/17 18:20 02/23/17 19:36 Bedside Glucose 202 mg/dl 191 mg/dl Heparin Anti-Xa Act, Low Molec Wt 1.17 IU/ML Sodium Level 128 mmol/L 135 mmol/L Potassium Level 4.4 mmol/L 4.5 mmol/L Chloride Level 96 mmol/L 100 mmol/L Carbon Dioxide Level 25 mmol/L 25 mmol/L Anion Gap 7.0 mmol/L 10.0 mmol/L Blood Urea Nitrogen 28 mg/dl 31 mg/dl Creatinine 1.09 mg/dl 1.07 mg/dl Est Creatinine Clear Calc Drug Dose 110.7 ml/min 112.8 ml/min Estimated GFR () 88.7 90.7 Estimated GFR (Non- 76.5 78.3 BUN/Creatinine Ratio 25.3 28.6 Random Glucose 185 mg/dl 158 mg/dl Calcium Level 9.3 mg/dl 9.6 mg/dl Test 02/23/17 21:52 02/24/17 00:23 02/24/17 00:45 02/24/17 06:33 Activated Partial Thromboplast Time 24.6 SECONDS 37.6 SECONDS Partial Thromboplastin Ratio 0.9 1.4 Bedside Glucose 101 mg/dl Sodium Level 134 mmol/L Potassium Level 4.6 mmol/L Chloride Level 100 mmol/L Carbon Dioxide Level 28 mmol/L Anion Gap 6.0 mmol/L Blood Urea Nitrogen 29 mg/dl Creatinine 1.00 mg/dl Est Creatinine Clear Calc Drug Dose 120.7 ml/min Estimated GFR () 98.5 Estimated GFR (Non- 84.9 BUN/Creatinine Ratio 29.3 Random Glucose 102 mg/dl Calcium Level 9.4 mg/dl White Blood Count 14.01 K/uL Red Blood Count 3.73 M/uL Hemoglobin 10.6 g/dL Hematocrit 34.4 % Mean Corpuscular Volume 92.2 fL Mean Corpuscular Hemoglobin 28.4 pg Mean Corpuscular Hemoglobin Concent 30.8 g/dl Platelet Count 309 K/uL Mean Platelet Volume 9.9 fL Neutrophils (%) (Auto) 86.6 % Lymphocytes (%) (Auto) 5.5 % Monocytes (%) (Auto) 6.0 % Eosinophils (%) (Auto) 0.2 % Basophils (%) (Auto) 0.1 % Neutrophils # (Auto) 12.13 K/uL Lymphocytes # (Auto) 0.77 K/uL Monocytes # (Auto) 0.84 K/uL Eosinophils # (Auto) 0.03 K/uL Basophils # (Auto) 0.01 K/uL RDW Standard Deviation 66.4 fL RDW Coefficient of Variation 19.6 % Immature Granulocyte % (Auto) 1.6 % Immature Granulocyte # (Auto) 0.23 K/uL Phosphorus Level 3.3 mg/dl Magnesium Level 2.2 mg/dl Assessment & Plan hyponatremia-pt was on 1/2ns secondary to significant polyuria with 8 to 10 liters of urine output and sodium levels started to trend down and switched to normal saline. sodium levels are better today at 135. currently on normosol. polyuria-unclear etiology to the polyuria. there was a concern for possible DI. I discussed further with endocrinology as well. we both believe this was not DI given the urine osm in the 300s. would expect it lower. also the sodium levels did not trend up and maintained in the low 130s at the time on 1/2ns. polyuria appears to be improving. no intervention ie ddavp needed at this time. I appreciate critical care help and oncology help in this complicated unfortunate patient.
[2017-02-24] MEDS: PROSOURCE NOCARB 30ML/PKT OG SCH ×2 (09:00→21:03)
[2017-02-24] MEDS: DOCUSATE SODIUM 100 MG/10 ML UDC NG SCH ×2 (09:00→21:02)
[2017-02-24] MEDS: METHYLPREDNISOLONE IV 30 MG in SYRINGE 0 ML IV SCH ×2 (09:05→20:04)
[2017-02-24] MEDS ORDERED: HEPARIN IV BOLUS 8,000 UNIT in SYRINGE 0 ML IV ONE (09:30)
--- NOTE | 2017-02-24 11:31 | Progress Note ---
Internal Med Progress Note Date of Service: Feb 24, 2017. Provider Documentation: SUBJECTIVE: The patient was seen and examined S/P Extubation 02/22/17 Moderate SOB at rest Bowel moved Clinically a little better OBJECTIVE: Vital Signs-as noted below Exam: General-S/P Extubation Minimal distress at rest Eyes-normal ENT-Normal Neck-Supple Lungs-Decreased breath sound bilaterally at the bases Otherwise clear Heart-Regular,no murmur appreciated Abdomen-Benign,no masses,bowel sound present Extremities-trace edema bilaterally Neuro-AAO Communicating normally Moving all limbs ,generally weak Lab data as noted below. 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 Contributing factors may include infection, ARDS, progressive small cell carcinoma lung, recent pulmonary embolism, suspected radiation pneumonitis. Bronchoscopy performed 02/17-results pending. CTA chest 02/18 showed resolution of previously noted PE's. Receiving broad-spectrum antibiotics with Cefepime, Levaquin and Vancomycin and intravenous methylprednisolone. Maintaining oxygenation, albeit with FIO2 of 80% and PEEP. Ongoing management per CCM and Pulmonary Medicine. 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 Patient also presented during last admission with likely radiation pneumonitis As per pulmonology, patient to be on prednisone 60mg with a slow taper Patient was recently tapered down to 50mg, and his condition worsened Appreciate Oncology input Has been on Solumedrol 40mg IV TID- Gradual Taper down of Steroid Bilateral PE Patient recently diagnosed with bilateral PE Continue Lovenox injections CTA chest 02/18 showed resolution of previously noted PE's Now on Heparin Oncology to decide about reasonable anticoagulation Insulin Dependent DM2 Patient is very specific regarding his insulin therapy He uses NPH /30 - was discharged with around 70 units in the AM and 90 units in the PM On his summary from [facility], he was requiring over 100 units BID Try 70 units BID for now, monitor for hypoglycemia, which was an issue during previous admission Consulted pharmacy glycemic control-reasonably stable GI / NUTRITION Receiving pantoprazole for GI prophylaxis. Receiving enteral nutrition via GT. Started on TPN Will start oral feeding -started Electrolytes Imbalance Hyponatremia and hypophosphatemia Replace and monitor VTE PROPHYLAXIS Receiving therapeutic dosing of enoxaparin due to prior history of VTE. RESUSCITATION STATUS DNR DISPOSITION Critically ill. Discharge disposition to be determined. . Consultants: Pulmonary Medicine Critical Care Medicine Medical Oncology . Procedures: cardiac monitoring endotracheal intubation mechanical ventilation right internal jugular central venous catheter arterial line IV medications Remains Critical but stable Can be transferred to [facility] Vital Signs: Date Time Temp Pulse Resp B/P (MAP) Pulse Ox O2 Delivery O2 Flow Rate FiO2 02/24/17 10:00 114 24 150/76 (100) 92 Oxymask 4.0 02/24/17 08:00 93 Oxymask 4.0 02/24/17 08:00 36.7 117 24 140/72 (94) 93 Oxymask 4.0 02/24/17 07:00 115 21 143/92 (109) 94 BiPAP 40 02/24/17 06:00 112 20 144/78 (100) 92 BiPAP 40 02/24/17 04:41 95 BiPAP 02/24/17 04:00 113 21 132/75 (94) 91 BiPAP 40 02/24/17 03:00 117 29 140/77 (98) 91 BiPAP 40 02/24/17 02:00 120 29 142/74 (96) 92 BiPAP 40 02/24/17 01:00 137 39 154/72 (99) 92 BiPAP 40 02/24/17 00:11 95 BiPAP 02/24/17 00:00 112 22 135/77 (96) BiPAP 40 02/23/17 23:01 136 37 213/111 (145) 94 02/23/17 22:02 127 34 160/117 (131) 94 40 02/23/17 21:00 117 27 202/101 (134) 92 40 02/23/17 20:56 120 95 40 02/23/17 20:24 95 BiPAP 02/23/17 20:01 117 29 167/101 (123) 92 BiPAP 40 02/23/17 19:31 113 25 182/88 (119) 92 Oxymask 4.0 02/23/17 18:21 122 141/92 02/23/17 18:13 124 18 141/92 (108) 92 Oxymask 4.0 02/23/17 16:05 37.6 120 18 170/103 (125) 84 BiPAP 40 02/23/17 16:00 93 Oxymask 6.0 02/23/17 14:09 117 36 97 BiPAP/CPAP 40 02/23/17 14:00 37.3 113 36 177/97 (123) 98 BiPAP 40 02/23/17 13:53 117 97 40 02/23/17 12:00 93 Oxymask 6.0 02/23/17 12:00 36.8 110 31 174/92 (119) 92 Oxymask 6.0 Lab Results: Results Past 24 Hours Test 02/23/17 12:19 02/23/17 13:01 02/23/17 13:19 02/23/17 18:20 Range/Units Bedside Glucose 167 202 191 70-99 mg/dl Heparin Anti-Xa Act, Low Molec Wt 1.17 0 - <0.10 IU/ML Sodium Level 128 136-145 mmol/L Potassium Level 4.4 3.5-5.1 mmol/L Chloride Level 96 98-107 mmol/L Carbon Dioxide Level 25 21-32 mmol/L Anion Gap 7.0 3-11 mmol/L Blood Urea Nitrogen 28 7-18 mg/dl Creatinine 1.09 0.60-1.40 mg/dl Est Creatinine Clear Calc Drug Dose 110.7 ml/min Estimated GFR () 88.7 Estimated GFR (Non- 76.5 BUN/Creatinine Ratio 25.3 10-20 Random Glucose 185 70-99 mg/dl Calcium Level 9.3 8.5-10.1 mg/dl Test 02/23/17 19:36 02/23/17 21:52 02/24/17 00:23 02/24/17 00:45 Range/Units Sodium Level 135 134 136-145 mmol/L Potassium Level 4.5 4.6 3.5-5.1 mmol/L Chloride Level 100 100 98-107 mmol/L Carbon Dioxide Level 25 28 21-32 mmol/L Anion Gap 10.0 6.0 3-11 mmol/L Blood Urea Nitrogen 31 29 7-18 mg/dl Creatinine 1.07 1.00 0.60-1.40 mg/dl Est Creatinine Clear Calc Drug Dose 112.8 120.7 ml/min Estimated GFR () 90.7 98.5 Estimated GFR (Non- 78.3 84.9 BUN/Creatinine Ratio 28.6 29.3 10-20 Random Glucose 158 102 70-99 mg/dl Calcium Level 9.6 9.4 8.5-10.1 mg/dl Activated Partial Thromboplast Time 24.6 21.0-31.0 SECONDS Partial Thromboplastin Ratio 0.9 Bedside Glucose 101 70-99 mg/dl Test 02/24/17 06:33 Range/Units White Blood Count 14.01 4.8-10.8 K/uL Red Blood Count 3.73 4.7-6.1 M/uL Hemoglobin 10.6 14.0-18.0 g/dL Hematocrit 34.4 42-52 % Mean Corpuscular Volume 92.2 80-100 fL Mean Corpuscular Hemoglobin 28.4 25-34 pg Mean Corpuscular Hemoglobin Concent 30.8 32-36 g/dl Platelet Count 309 130-400 K/uL Mean Platelet Volume 9.9 7.4-10.4 fL Neutrophils (%) (Auto) 86.6 % Lymphocytes (%) (Auto) 5.5 % Monocytes (%) (Auto) 6.0 % Eosinophils (%) (Auto) 0.2 % Basophils (%) (Auto) 0.1 % Neutrophils # (Auto) 12.13 1.4-6.5 K/uL Lymphocytes # (Auto) 0.77 1.2-3.4 K/uL Monocytes # (Auto) 0.84 0.11-0.59 K/uL Eosinophils # (Auto) 0.03 0-0.5 K/uL Basophils # (Auto) 0.01 0-0.2 K/uL RDW Standard Deviation 66.4 36.4-46.3 fL RDW Coefficient of Variation 19.6 11.5-14.5 % Immature Granulocyte % (Auto) 1.6 % Immature Granulocyte # (Auto) 0.23 0.00-0.02 K/uL Activated Partial Thromboplast Time 37.6 21.0-31.0 SECONDS Partial Thromboplastin Ratio 1.4 Phosphorus Level 3.3 2.5-4.9 mg/dl Magnesium Level 2.2 1.8-2.4 mg/dl
[2017-02-24] MEDS ORDERED: RAPID SEQUENCE INDUCTION BAG ONE (11:43)
[2017-02-24] MEDS ORDERED: PROPOFOL IV EMULSION 10 MG/ML 100 ML VIAL IV ONE (11:44)
--- NOTE | 2017-02-24 12:22 | DIAGNOSTIC IMAGING REPORT ---
CHEST ONE VIEW PORTABLE HISTORY: 56 years-old Male S/P INTUBATION acute respiratory failure COMPARISON: Chest radiograph same day at 7:20 AM TECHNIQUE: AP view of the chest FINDINGS: Endotracheal tube has an place which overlies the midline terminating 6.1 cm superior to the butch. Enteric tube has also been placed courses below the diaphragm outside the [id number]. Left-sided internal jugular central venous catheter is unchanged. Cardiac silhouette is again mildly enlarged. Multifocal alveolar opacities throughout the bilateral lungs are again seen within a multilobar distribution, left greater than right. Pulmonary vascular congestion. No pneumothorax or large pleural effusion identified. IMPRESSION: 1. Status post placement of an endotracheal tube which terminates 6.1 cm superior to the butch. 2. Enteric tube courses below the diaphragm outside the [id number]. 3. Persistent multifocal multilobar left greater than right airspace opacities. The above report was generated using voice recognition software. It may contain grammatical, syntax or spelling errors. Electronically signed by: Rolan Hyde M.D. 02/24/2017 12:21 PM Dictated Date/Time: 02/24/2017 12:19 PM
[2017-02-24] MEDS: METOPROLOL TARTRATE 1 MG/ML VIAL IV PRN (12:25)
[2017-02-24] MEDS ORDERED: FENTANYL CITRATE 1250MCG/250ML NSS ONE (12:26)
[2017-02-24] MEDS ORDERED: NURSING VERBAL MED ORDER ONE ×2 (12:30→18:00)
--- NOTE | 2017-02-24 12:42 | Critical Care Progress Note ---
Critical Care Progress Note Date of Service Feb 24, 2017. ICU Day ICU Day Number: [address] Nava Subjective Patient was previously extubated and had relatively unremarkable night; This am was conversant, said that he felt better; Also he reported significant relief when had bowel movement earlier with near resolution of back pain; At that time denied Chest Pain and Dyspnea; Additionally around that time he changed his code status to Full Code from prior DNR and specifically stated that he wanted everything possible done to stay alive. This afternoon he had a swallow assessment which he tolerated well as per Speech Therapist. Around 12 noon, I was called to attend to Mr. Carcamo for unresponsiveness and respiratory distress. As per nursing report, the patent was having a bowel movement when shortly thereafter had a sudden " blank stare" and became unresponsive; Shortly thereafter, his HR increased to 140's and he appeared cyanotic and hypoxemic; Upon my assessment, I proceeded to emergently intubate Mr. Carcamo which was accomplished using glidescope and s/p Etomidate/Propofol and Succinyl; Post intubation, ETT placement was confirmed and Stat CT head ( was on full dose anticoagulation) and CTA of chest ( had known DVT) was ordered. I spoke with patient's father in person and updated him on these important new adverse developments as well as answered his questions to the best of my ability. Objective GENERAL: off sedation, s/p extubation NECK: supple, no nuchal rigidity, no adenopathy LUNGS:coarse breath sounds adolph, no wheeze, HEART: no murmurs, S1 normal and S2 normal ABDOMEN: abdomen soft normo-active bowel sounds UPPER EXTREMITIES: upper extremities are grossly normal. LOWER EXTREMITIES: No pitting edema. NEURO EXAM: GCS 15 Current SOFA Score SOFA Score Response (Comments) Value PaO2/FiO2 (mmHg) < 100 4 SaO2 / FIO2 < 67 4 Platelets (x10) > 150 0 Bilirubin (mg/dL) < 1.2 0 Parker Coma Score < 6 4 Level of Hypotension No Hypotension 0 Creatinine (mg/dL) < 1.2 0 Total 12 Assessment & Plan (1) Hypoxia (2) Primary cancer of left upper lobe of lung Patient with Small Cell Lung Ca Stage III B; s/p XRT, Chemo with evidence of Radiation Pneumonitis; p/w B/L Pneumonia clinically in ARDS; 02/22 s/p extubated; has good mental status and tolerating high flow NC; since got Lasix IV 20 mg x 1 with significant diuresis in excess of 40 liters over following 6 days and low Urine osmolarity c/w Diabetes Insipidus. on 02/23 was taken OOB and developed persistent tachycardia; c/o dyspnea and was placed on BIPAP 10/5 @ 40%; responding to Fentanyl IVP; s/p Extubated 02/22 s/p reintubated 02/24 for unresponsiveness followed by respiratory failure Neuro -02/24 s/p acute new onset of mental status change; Head CT pending; Propofol/Fentanyl resumed for sedation as well as Versed PRN; Etiology of decompensation is unclear at this point but we need to r/o ICH as was on full dose Lovenox . check ABG; Pulm - Initially admitted for ARDS on the background of Small cell CA and Radiation Pneumonitis; s/p empirical treatment with Vanco/Bactrim/Cefepime/ Levaquin/ Solumedrol and had unremarkable Bronch; Patient was s/p extubated on 02/22 and did well with alternating BIPAP/ High flow and even was on regular VM for some time with sats 92-91% on 40% Fio2. However, on 02/24 s/p emergent reintubation; c/w AC for now; place on 100%/ PEEP 10 --> check ABG and adjust as needed; decrease Fio2 as able;CXR - ETT in good position, no pneumothorax noted; Infiltrates not significantly different. Will obtain stat Chest CTA to r/o PE ( had known DVT's, was on Heparin gtt however his was only ptt 37.6, but was adjusted) Another possiblity is aspiration as his had a mental change prior to the event; however, as per speech therapist, the patient was stable upon completion of study. ID - s/p abx as above; afebrile; procalcitonin is 0.16 on 02/21; will check rpt procalcitonin, lactates; If evidence of infection on CT --> may resume Abx. Endo - on Insulin sliding scale + basal coverage; on Solumedrol taper; Renal -Urine Output is normalizing; Total UO -10 liters; cr 1.0. will rpt labs; Renal input appreciated. GI - Had swallow eval prior to intubation, now NPO post intubation. DVT prophylaxis - Lovenox BID for Hx of DVTs; dose adjusted by pharmacy based on Xa level. Was on Heparin gtt as could not get Lovenox therapeutic per pharmacy. CV -Despite respiratory failure hemodynamically stable, but significantly tachycardic. on beta blockers; EKG post event reviewed and noted only for tachycardia in 150' s and non specific changes; will check serial troponins as well. Code status - Patient was previously DNR, but rescinded his status this am, and therefore was intubated. Presently he is a FULL CODE. I have personally spent 53 minutes of critical care time in the direct management of this patient. This is a life/limb threatening event. This includes time spent evaluating patient, direct bedside care, chart review, placing orders, interpretation of diagnostic studies, discussion with consultants, patient, and family members, as well as other required patient management activities. This time is exclusive of all separately billable procedures, and teaching time and separate from and in addition to any other critical care service time. case discussed on am rounds; In light of reintubation meets criteria to ICU. I met with Patient's father and updated him on latest events and answered his questions to the best of my ability. Consults & Procedures Consultants: Pulmonary Procedures: CHEST ONE VIEW PORTABLE HISTORY: Intubated COMPARISON: Chest 02/19/2017. FINDINGS: The endotracheal tube terminates 3.7 from the butch. Nasogastric tube terminates below the diaphragm. The tip is not included on this study. Left jugular central venous catheter terminates at the proximal SVC. Bilateral airspace opacities have slightly improved. No pneumothorax. Small left pleural effusion and cardiomegaly persist. IMPRESSION: 1. Satisfactory support line placement. 2. Slight improvement in the bilateral airspace opacities. CHEST ONE VIEW PORTABLE CLINICAL HISTORY: ET PLACEMENT COMPARISON STUDY: Chest radiograph February 17, 2017 2:54 PM. FINDINGS: The tip of the endotracheal tube is 3.5 cm above the butch. A right internal jugular central line is unchanged in position. Tip of nasogastric tube is below the lower aspect of the image but at least within the proximal body of the stomach. Dense bilateral consolidation has significantly progressed since study performed this morning. There is no pneumothorax. IMPRESSION: 1. Satisfactory positioning of lines and tubes. 2. Progression of extensive bilateral opacities. This could reflect pneumonia or pulmonary edema. Data Medications: Current Inpatient Medications Medications (Trade) Dose Ordered Sig/Prince Route Start Time Stop Time Status Last Admin Dose Admin Acetaminophen (Tylenol Tab) 650 mg Q4H PRN PO 02/17/17 06:30 03/19/17 06:29 Al Hydrox/Mg Hydrox/Simethicone (Maalox Max Susp) 15 ml Q4H PRN PO 02/17/17 06:30 03/19/17 06:29 Magnesium Hydroxide (Milk Of Magnesia Susp) 30 ml Q12H PRN PO 02/17/17 06:30 03/19/17 06:29 Diazepam (Valium Tab) 2 mg BID PRN PO 02/17/17 06:30 03/19/17 06:29 Future hold 02/24/17 06:22 2 MG Methadone HCl (Dolophine Tab) 10 mg Q6 PO 02/17/17 12:00 03/03/17 11:59 02/24/17 06:22 10 MG Ondansetron HCl (Zofran Tab) 8 mg Q8 PRN PO 02/17/17 06:30 03/19/17 06:29 Senna/Docusate Sodium (Senokot S Tab) 1 tab QDL PRN PO 02/17/17 06:30 03/19/17 06:29 Cholecalciferol (Vitamin D Tab) 5,000 inter.unit DAILY PO 02/17/17 09:00 03/19/17 08:59 Future Hold 02/17/17 08:45 5,000 INTER.UNIT Polyethylene (Miralax Powder Packet) 17 gm QDL PRN PO 02/17/17 06:30 03/19/17 06:29 Pantoprazole Sodium 40 mg/ Syringe 10 ml @ 5 mls/min Q24H IV 02/17/17 14:00 03/19/17 13:59 02/23/17 14:23 5 MLS/MIN Metoprolol Tartrate (Lopressor Iv) 5 mg Q4 PRN IV 02/17/17 16:15 03/19/17 16:14 02/23/17 18:21 5 MG Heparin Sodium (Porcine) (Heparin 10 Unit/ ml 5 ml Flush) 5 ml PRN PRN FLUSH 02/18/17 00:30 03/20/17 00:29 Docusate Sodium (coLACE SYRUP) 100 mg BID NG 02/18/17 09:00 03/20/17 08:59 02/22/17 20:02 100 MG Enteral Nutritional Formula (Impact 1.0 Anish) 1,000 ml UD PRN OG 02/21/17 12:15 03/23/17 12:14 Enteral Nutritional Formula (Prosource No Carb) 60 ml BID OG 02/21/17 21:00 03/23/17 20:59 02/22/17 08:12 60 ML Fentanyl Citrate (Fentanyl Inj) 25 mcg Q2H PRN IV 02/22/17 10:45 03/08/17 10:44 02/23/17 19:32 25 MCG Albuterol/ Ipratropium (Duoneb) 3 ml Q4R PRN INH 02/22/17 17:00 03/24/17 16:59 02/23/17 14:09 3 ML Miscellaneous Information (Consult Glycemic Management Pharmacy) 1 ea UD PRN N/A 02/23/17 09:30 03/25/17 09:29 Insulin Human Regular (novoLIN-R) SLIDING SCALE Q6 SC 02/23/17 12:00 03/25/17 11:59 02/23/17 18:22 2 UNITS Methylprednisolone Sodium Succinate 30 mg/Syringe 0.48 ml @ 1.5 mls/min Q12H IV 02/23/17 20:00 03/19/17 15:14 02/24/17 09:05 1.5 MLS/MIN Parenteral Electrolyte Solution 1,000 ml @ 80 mls/hr [id number] IV 02/23/17 15:15 02/24/17 15:14 02/24/17 03:45 80 MLS/HR Heparin Sodium/ Dextrose 500 ml @ 36 mls/hr [id number] PRN IV 02/23/17 21:00 03/25/17 20:59 02/24/17 09:04 36 MLS/HR Vital Signs: Date Time Temp Pulse Resp B/P (MAP) Pulse Ox O2 Delivery O2 Flow Rate FiO2 02/24/17 10:00 114 24 150/76 (100) 92 Oxymask 4.0 02/24/17 08:00 93 Oxymask 4.0 02/24/17 08:00 36.7 117 24 140/72 (94) 93 Oxymask 4.0 02/24/17 07:00 115 21 143/92 (109) 94 BiPAP 40 02/24/17 06:00 112 20 144/78 (100) 92 BiPAP 40 02/24/17 04:41 95 BiPAP 02/24/17 04:00 113 21 132/75 (94) 91 BiPAP 40 02/24/17 03:00 117 29 140/77 (98) 91 BiPAP 40 02/24/17 02:00 120 29 142/74 (96) 92 BiPAP 40 02/24/17 01:00 137 39 154/72 (99) 92 BiPAP 40 02/24/17 00:11 95 BiPAP 02/24/17 00:00 112 22 135/77 (96) BiPAP 40 02/23/17 23:01 136 37 213/111 (145) 94 02/23/17 22:02 127 34 160/117 (131) 94 40 02/23/17 21:00 117 27 202/101 (134) 92 40 02/23/17 20:56 120 95 40 02/23/17 20:24 95 BiPAP 02/23/17 20:01 117 29 167/101 (123) 92 BiPAP 40 02/23/17 19:31 113 25 182/88 (119) 92 Oxymask 4.0 02/23/17 18:21 122 141/92 02/23/17 18:13 124 18 141/92 (108) 92 Oxymask 4.0 02/23/17 16:05 37.6 120 18 170/103 (125) 84 BiPAP 40 02/23/17 16:00 93 Oxymask 6.0 02/23/17 14:09 117 36 97 BiPAP/CPAP 40 02/23/17 14:00 37.3 113 36 177/97 (123) 98 BiPAP 40 02/23/17 13:53 117 97 40 Laboratory Results: Last 24 Hours Test 02/23/17 12:19 02/23/17 13:01 02/23/17 13:19 02/23/17 18:20 Bedside Glucose 167 mg/dl 202 mg/dl 191 mg/dl Heparin Anti-Xa Act, Low Molec Wt 1.17 IU/ML Sodium Level 128 mmol/L Potassium Level 4.4 mmol/L Chloride Level 96 mmol/L Carbon Dioxide Level 25 mmol/L Anion Gap 7.0 mmol/L Blood Urea Nitrogen 28 mg/dl Creatinine 1.09 mg/dl Est Creatinine Clear Calc Drug Dose 110.7 ml/min Estimated GFR () 88.7 Estimated GFR (Non- 76.5 BUN/Creatinine Ratio 25.3 Random Glucose 185 mg/dl Calcium Level 9.3 mg/dl Test 02/23/17 19:36 02/23/17 21:52 02/24/17 00:23 02/24/17 00:45 Sodium Level 135 mmol/L 134 mmol/L Potassium Level 4.5 mmol/L 4.6 mmol/L Chloride Level 100 mmol/L 100 mmol/L Carbon Dioxide Level 25 mmol/L 28 mmol/L Anion Gap 10.0 mmol/L 6.0 mmol/L Blood Urea Nitrogen 31 mg/dl 29 mg/dl Creatinine 1.07 mg/dl 1.00 mg/dl Est Creatinine Clear Calc Drug Dose 112.8 ml/min 120.7 ml/min Estimated GFR () 90.7 98.5 Estimated GFR (Non- 78.3 84.9 BUN/Creatinine Ratio 28.6 29.3 Random Glucose 158 mg/dl 102 mg/dl Calcium Level 9.6 mg/dl 9.4 mg/dl Activated Partial Thromboplast Time 24.6 SECONDS Partial Thromboplastin Ratio 0.9 Bedside Glucose 101 mg/dl Test 02/24/17 06:33 02/24/17 11:55 White Blood Count 14.01 K/uL Red Blood Count 3.73 M/uL Hemoglobin 10.6 g/dL Hematocrit 34.4 % Mean Corpuscular Volume 92.2 fL Mean Corpuscular Hemoglobin 28.4 pg Mean Corpuscular Hemoglobin Concent 30.8 g/dl Platelet Count 309 K/uL Mean Platelet Volume 9.9 fL Neutrophils (%) (Auto) 86.6 % Lymphocytes (%) (Auto) 5.5 % Monocytes (%) (Auto) 6.0 % Eosinophils (%) (Auto) 0.2 % Basophils (%) (Auto) 0.1 % Neutrophils # (Auto) 12.13 K/uL Lymphocytes # (Auto) 0.77 K/uL Monocytes # (Auto) 0.84 K/uL Eosinophils # (Auto) 0.03 K/uL Basophils # (Auto) 0.01 K/uL RDW Standard Deviation 66.4 fL RDW Coefficient of Variation 19.6 % Immature Granulocyte % (Auto) 1.6 % Immature Granulocyte # (Auto) 0.23 K/uL Activated Partial Thromboplast Time 37.6 SECONDS Partial Thromboplastin Ratio 1.4 Phosphorus Level 3.3 mg/dl Magnesium Level 2.2 mg/dl Bedside Glucose 291 mg/dl
[2017-02-24] MEDS ORDERED: METOPROLOL TARTRATE 1 MG/ML VIAL IV. ONE (12:45)
[2017-02-24 12:47] LABS: ISTAT POTASSIUM 4.8 mEq/L (3.3-5.0); ISTAT SODIUM 133 mEq/L (135-144)
--- NOTE | 2017-02-24 12:50 | Procedure Note ---
Procedure Note Procedure Date Feb 24, 2017. Procedure Description Procedure Name: endotracheal intubation Procedure time out: side/site verified, patient ID confirmed, correct procedure Consent obtained: emergent consent implied Time of procedure: 12:05 Performed by: attending Indications: therapeutic Contraindications: none Description: Indication: Respiratory Distress Attending: Dr. Nava A time-out was completed verifying correct patient, procedure, site, positioning , and special equipment if applicable. The patient was placed in a flat position. Sedation was obtained using Propofol 100 mcg, and additionally with Etomidate 20mg,. The patient was easily ventilated using an ambu bag to obtain O2 sats > 95%. The GLIDESCOPE was used and inserted into the oropharynx at which time there was a visualization of vocal cords. A 7.5-albanian endotracheal tube was inserted and visualized going through the vocal cords. The stylette was removed. Colorimetric change was visualized on the CO2 meter. Breath sounds were heard in both lung shabazz equally. The endotracheal tube was placed at 23 cm, measured at the teeth. A chest x-ray was ordered to assess for pneumothorax and verify endotrachealtube placement. Estimated Blood Loss: 0 CXR confirmed placement; Complications: none Patient tolerated procedure: well Post-procedure vital signs: other (tachycardic;)
[2017-02-24] MEDS ORDERED: OPTIRAY 320 IV PRN (13:00)
[2017-02-24] MEDS: INSULIN GLARGINE SOLOSTAR 100 UNITS/ML 3 ML PEN SC SCH ×2 (13:17→21:08)
[2017-02-24] MEDS: FENTANYL 1250MCG/250ML NSS 250 ML IV PRN ×2 (13:18→20:05)
--- NOTE | 2017-02-24 13:47 | DIAGNOSTIC IMAGING REPORT ---
HEAD WITHOUT CONTRAST (CT) CLINICAL HISTORY: 56 years-old Male with change in mental status on full dose Lovenox. Acute altered mental status. TECHNIQUE: Multiple axial CT images of the head were obtained without contrast. A dose lowering technique was utilized adhering to the principles of ALARA. CT DOSE: 1680.76 mGy.cm COMPARISON: CT abdomen 02/18/2017 FINDINGS: No acute intracranial hemorrhage, midline shift, intracranial mass, hydrocephalus, territorial ischemia or abnormal extra-axial collection. The previously described remote left MCA infarction was likely secondary to artifact. The calvarium is intact. The paranasal sinuses, mastoid air cells, and middle ear cavities are clear. IMPRESSION: No acute intracranial abnormality. The above report was generated using voice recognition software. It may contain grammatical, syntax or spelling errors. Electronically signed by: Rolan Hyde M.D. 02/24/2017 1:45 PM Dictated Date/Time: 02/24/2017 1:41 PM
[2017-02-24 13:49] LABS: HEMATOCRIT 35.4 % (42-52); HEMOGLOBIN 10.9 g/dL (14.0-18.0); MEAN CELL VOLUME 92.7 fL (80-100); MEAN CORPUSCULAR HEMOGLOBIN 28.5 pg (25-34); MEAN CORPUSCULAR HGB CONC 30.8 g/dl (32-36); MEAN PLATELET VOLUME 10.4 fL (7.4-10.4); PLATELET COUNT 325 K/uL (130-400); RED CELL DISTRIBUTION WIDTH CV 19.5 % (11.5-14.5); RED CELL DISTRIBUTION WIDTH SD 66.7 fL (36.4-46.3); WHITE BLOOD COUNT 17.52 K/uL (4.8-10.8)
[2017-02-24 14:15] LABS: PTT PATIENT 53.5 SECONDS (21.0-31.0)
[2017-02-24 14:16] LABS: ALBUMIN 2.3 gm/dl (3.4-5.0); CREATININE 1.1 mg/dl (0.60-1.40); POTASSIUM 4.8 mmol/L (3.5-5.1)
[2017-02-24 14:28] LABS: TOTAL PROTEIN 6.5 gm/dl (6.4-8.2)
[2017-02-24] MEDS: PROPOFOL IV EMULSION 10 MG/ML 100 ML VIAL IV PRN ×3 (14:30→20:07)
--- NOTE | 2017-02-24 14:33 | DIAGNOSTIC IMAGING REPORT ---
CHEST ANGIO WITH CONTRAST HISTORY: 56 years-old Male with NEW RESRIATORY DECOMPENSATION. Acute respiratory distress TECHNIQUE: Multiple CTA images of the chest were obtained after the intravenous administration of 119 ml Optiray 320. Coronal and sagittal MIPS were obtained from the axial data set and were submitted for review. A dose lowering technique was utilized adhering to the principles of ALARA. COMPARISON: CTA of the chest 02/18/2017. FINDINGS: CTA: Cardiac size is again mildly enlarged. Thoracic aorta appears to be normal in both course and caliber without aneurysm or dissection. The imaged proximal great vessels appear to be patent. There is suboptimal opacification of the pulmonary arterial tree with evaluation of the lobar, segmental and subsegmental branches on the right very limited secondary to respirator motion and contrast bolus timing. No central pulmonary embolus identified. CT CHEST: No dominant thyroid nodule identified. Trace pericardial effusion. Left internal jugular central venous catheter is present with distal tip terminating within the proximal portion of the SVC. An endotracheal tube is present within the trachea terminating 3.5 cm superior to the butch. Enteric tube is present within the esophagus with distal tip terminating within the distal gastric body. Ill-defined soft tissue density of the anterior mediastinum surrounding the aortic arch redemonstrated which is unchanged and may be continuation of the pericardial effusion. Confluent adenopathy or mass of the left hilum also appears unchanged. Multifocal multilobar distribution of alveolar opacities are again seen bilaterally, left greater the right. There is improved aeration of the bilateral lower and right upper lobes. Mildly improved aeration of the left upper lobe. Patchy groundglass opacities throughout the bilateral lungs also seen with areas of mosaic attenuation. Trace left pleural effusion is unchanged. Central airways appear patent. Evaluation of the lung bases limited secondary to respiratory motion. No acute abnormality of the imaged upper abdomen. Soft tissues are unremarkable. Bones appear intact. IMPRESSION: 1. Limited evaluation of the pulmonary arterial tree as above. Within the limitations of the study, there is no acute aortic pathology or evidence of pulmonary thromboembolic disease. 2. Satisfactory positioning of life support lines and tubes as above. 3. Multifocal multilobar distribution of extensive airspace and groundglass opacities redemonstrated which have improved from prior exam, notably within the bilateral lower and right upper lobes. Unchanged trace left pleural effusion. 4. Additional findings as above The above report was generated using voice recognition software. It may contain grammatical, syntax or spelling errors. Electronically signed by: Rolan Hyde M.D. 02/24/2017 2:32 PM Dictated Date/Time: 02/24/2017 2:19 PM
[2017-02-24] MEDS: PANTOprazole INJ 40 MG in SYRINGE 0 ML IV SCH (14:47)
--- NOTE | 2017-02-24 15:21 | Pharmacy Progress Note ---
Pharmacy Glycemic Short Note 2 Date of Service Feb 24, 2017. Test 02/23/17 18:20 02/23/17 19:36 02/24/17 00:23 02/24/17 00:45 Bedside Glucose 191 mg/dl (70-99) 101 mg/dl (70-99) Random Glucose 158 mg/dl (70-99) 102 mg/dl (70-99) Test 02/24/17 11:55 02/24/17 13:36 Bedside Glucose 291 mg/dl (70-99) Random Glucose 313 mg/dl (70-99) OUTPATIENT ANTIDIABETIC REGIMEN: * Humulin 105 units SQ BID * Humulin-R SSI ACHS (~20 units w/ meals) * HbA1c: 6.4% (01/31/17) ASSESSMENT: * Pt extubated on 02/22, speech eval today, then resp failure, re-intubated * Insulin drip titrated off yesterday, pt had 100 units of Lantus and blood sugars at goal yesterday, blood sugar jayesh today after speech eval and stress of intubation * Will increase Lantus dose per BSG PLAN FOR INPATIENT GLYCEMIC CONTROL: * Basal insulin * Lantus SQ BID * 0 units - BSG less than 90mg/dl * 50 units - BSG 90-180mg/dl * 65 units - BSG >180mg/dl * Bolus insulin * REGULAR INSULIN per scale ACHS or Q6hrs while NPO - pt reports allergy to NovoLog * Goal Range: Low 140 mg/dL - High 180 mg/dL * Correction Factor: 10 mg/dL/unit * Nutritional / Prandial insulin per carb ratio of 1 unit per 4 grams CHO consumed (pt currently NPO)
[2017-02-24 15:39] LABS: PTT PATIENT 44.3 SECONDS (21.0-31.0)
[2017-02-24] MEDS ORDERED: HEPARIN IV BOLUS 4,000 UNIT in SYRINGE 0 ML IV ONE (16:00)
[2017-02-24 22:48] LABS: PTT PATIENT 61.4 SECONDS (21.0-31.0)
[2017-02-25] VITALS (22 sets, daily range): BP systolic 108–137; BP diastolic 66–86; PULSE 93–113; TEMP 36.6–36.8; O2SAT 87–100
[2017-02-25] MEDS: METHADONE HCL 10 MG TAB PO SCH ×4 (00:19→18:04)
[2017-02-25] MEDS: INSULIN HUMAN REGULAR SC SCH ×4 (00:22→18:00)
[2017-02-25] MEDS: FENTANYL 1250MCG/250ML NSS 250 ML IV PRN ×2 (02:27→13:15)
[2017-02-25] MEDS: PROPOFOL IV EMULSION 10 MG/ML 100 ML VIAL IV PRN ×4 (02:28→17:24)
[2017-02-25] MEDS: HEPARIN 25,000 UNIT/500ML D5W 500 ML IV PRN ×2 (02:46→17:24)
[2017-02-25 05:51] LABS: BASO % 0.1 %; BASO ABS # 0.01 K/uL (0-0.2); EOS % 0.7 %; EOS ABS # 0.07 K/uL (0-0.5); HEMATOCRIT 34.6 % (42-52); HEMOGLOBIN 10.3 g/dL (14.0-18.0); IG# 0.15 K/uL (0.00-0.02); LYMPH % 7.9 %; MEAN CELL VOLUME 95.1 fL (80-100); MEAN CORPUSCULAR HEMOGLOBIN 28.3 pg (25-34); MEAN CORPUSCULAR HGB CONC 29.8 g/dl (32-36); MEAN PLATELET VOLUME 9.9 fL (7.4-10.4); MONO % 7.1 %; MONO ABS # 0.72 K/uL (0.11-0.59); NEUT % 82.7 %; NEUT ABS # 8.41 K/uL (1.4-6.5); PLATELET COUNT 294 K/uL (130-400); RED CELL DISTRIBUTION WIDTH CV 18.6 % (11.5-14.5); RED CELL DISTRIBUTION WIDTH SD 65.1 fL (36.4-46.3); WHITE BLOOD COUNT 10.16 K/uL (4.8-10.8)
[2017-02-25] MEDS: NORMOSOL R 1,000 ML IV SCH ×2 (06:03→20:51)
[2017-02-25 06:07] LABS: PTT PATIENT 51.1 SECONDS (21.0-31.0)
[2017-02-25 06:26] LABS: CALCIUM 9.3 mg/dl (8.5-10.1); CREATININE 0.67 mg/dl (0.60-1.40); POTASSIUM 4.5 mmol/L (3.5-5.1)
[2017-02-25] MEDS: PROSOURCE NOCARB 30ML/PKT OG SCH ×2 (07:48→20:52)
[2017-02-25] MEDS: DOCUSATE SODIUM 100 MG/10 ML UDC NG SCH ×2 (07:48→20:51)
--- NOTE | 2017-02-25 08:04 | DIAGNOSTIC IMAGING REPORT ---
SINGLE VIEW CHEST CLINICAL HISTORY: Repeat intubation. FINDINGS: 2 AP, portable, upright chest radiographs are compared to chest x-ray and chest CT dated 02/24/2017. The examination is significantly degraded by portable technique and patient rotation. The endotracheal tube, and enteric tube, and the left internal jugular central venous catheter are unchanged in position. The tip of the endotracheal tube projects 3 cm above the butch. The heart is enlarged. There is pulmonary vascular congestion. There is airspace consolidation volume loss noted throughout the left lung. Airspace opacities are also seen throughout the right lung. No large pleural effusion or pneumothorax is seen. The bony thorax is grossly intact. IMPRESSION: 1. Stable lines and tubes. 2. Cardiomegaly with evidence of congestive failure. 3. There is dense airspace consolidation throughout the left lung. Airspace opacities are also seen throughout the right lung. This could represent pulmonary edema and/or multifocal pneumonia. Clinical correlation will be essential. 4. No large pleural effusion or pneumothorax is seen. Electronically signed by: Hero Fair M.D. 02/25/2017 8:03 AM Dictated Date/Time: 02/25/2017 8:00 AM
--- NOTE | 2017-02-25 08:57 | Critical Care Progress Note ---
Critical Care Progress Note Date of Service Feb 25, 2017. ICU Day ICU Day Number: [address] Nava Objective GENERAL: off sedation, s/p extubation NECK: supple, no nuchal rigidity, no adenopathy LUNGS:coarse breath sounds adolph, no wheeze, HEART: no murmurs, S1 normal and S2 normal ABDOMEN: abdomen soft normo-active bowel sounds UPPER EXTREMITIES: upper extremities are grossly normal. LOWER EXTREMITIES: No pitting edema. 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 on 02/23 was taken OOB and developed persistent tachycardia; c/o dyspnea and was placed on BIPAP 10/ @ 40%; responding to Fentanyl IVP; s/p Extubated 02/22 s/p reintubated 02/24 for unresponsiveness followed by respiratory failure; At that time had HEad CT and CTA chest - both unremarkable as compared to prior study, Regained mental status shortly; Currently still intubated. Neuro -02/24 s/p acute new onset of mental status change; Head CT pending; Propofol/Fentanyl resumed for sedation as well as Versed PRN; Etiology of decompensation is unclear at this point but we need to r/o ICH as was on full dose Lovenox . check ABG; 02/25 - Following his return from CT scan his mental status is back to his baseline; Head CT unremarkable; Alert and awake and trying to scribble; On Fentanyl gtt and Propofol for sedation; Versed PRN; Pulm - Initially admitted for ARDS on the background of Small cell CA and Radiation Pneumonitis; s/p empirical treatment with Vanco/Bactrim/Cefepime/ Levaquin/ Solumedrol and had unremarkable Bronch; Patient was s/p extubated on 02/22 and did well with alternating BIPAP/ High flow and even was on regular VM for some time with sats 92-91% on 40% Fio2. However, on 02/24 s/p emergent reintubation for acute respiratory failure and unresponsiveness; Chest CTA to r/o PE - no acute pathology; previously seen multilobar airspace disease and groundglass opacities. ID - s/p abx as above; afebrile; procalcitonin is 0.16 on 02/21; lactate 1.2 on 02/24 Currently off Abx; Endo - on Insulin sliding scale + basal coverage; on Solumedrol taper; Renal -Urine Output is normalized; Total UO -10 liters; cr 0.67. will rpt labs; GI - Had swallow eval prior to intubation, will resume feeds; DVT prophylaxis - Lovenox BID for Hx of DVTs; dose adjusted by pharmacy based on Xa level. Currently on Heparin gtt as could not get Lovenox therapeutic per pharmacy. CV - hemodynamically stable, tachycardic better. on beta blockers; Code status - Patient was previously DNR, but rescinded his status this am, and therefore was intubated. Presently he is a FULL CODE. In light of reintubation on 02/24 will bring palliative care team back on board to discuss goals of care; I have personally spent 36 minutes of critical care time in the direct management of this patient. This is a life/limb threatening event. This includes time spent evaluating patient, direct bedside care, chart review, placing orders, interpretation of diagnostic studies, discussion with consultants, patient, and family members, as well as other required patient management activities. This time is exclusive of all separately billable procedures, and teaching time and separate from and in addition to any other critical care service time. case discussed on am rounds; meets criteria for ICU. Consults & Procedures Consultants: Pulmonary Nephrology Hematology/Oncology Consults & Procedures Consultants: Pulmonary Procedures: CHEST ONE VIEW PORTABLE HISTORY: Intubated COMPARISON: Chest 02/19/2017. FINDINGS: The endotracheal tube terminates 3.7 from the butch. Nasogastric tube terminates below the diaphragm. The tip is not included on this study. Left jugular central venous catheter terminates at the proximal SVC. Bilateral airspace opacities have slightly improved. No pneumothorax. Small left pleural effusion and cardiomegaly persist. IMPRESSION: 1. Satisfactory support line placement. 2. Slight improvement in the bilateral airspace opacities. CHEST ONE VIEW PORTABLE CLINICAL HISTORY: ET PLACEMENT COMPARISON STUDY: Chest radiograph February 17, 2017 2:54 PM. FINDINGS: The tip of the endotracheal tube is 3.5 cm above the butch. A right internal jugular central line is unchanged in position. Tip of nasogastric tube is below the lower aspect of the image but at least within the proximal body of the stomach. Dense bilateral consolidation has significantly progressed since study performed this morning. There is no pneumothorax. IMPRESSION: 1. Satisfactory positioning of lines and tubes. 2. Progression of extensive bilateral opacities. This could reflect pneumonia or pulmonary edema. Data Medications: Current Inpatient Medications Medications (Trade) Dose Ordered Sig/Prince Route Start Time Stop Time Status Last Admin Dose Admin Acetaminophen (Tylenol Tab) 650 mg Q4H PRN PO 02/17/17 06:30 03/19/17 06:29 Al Hydrox/Mg Hydrox/Simethicone (Maalox Max Susp) 15 ml Q4H PRN PO 02/17/17 06:30 03/19/17 06:29 Magnesium Hydroxide (Milk Of Magnesia Susp) 30 ml Q12H PRN PO 02/17/17 06:30 03/19/17 06:29 Diazepam (Valium Tab) 2 mg BID PRN PO 02/17/17 06:30 03/19/17 06:29 Future hold 02/24/17 21:09 2 MG Methadone HCl (Dolophine Tab) 10 mg Q6 PO 02/17/17 12:00 03/03/17 11:59 02/25/17 06:03 10 MG Ondansetron HCl (Zofran Tab) 8 mg Q8 PRN PO 02/17/17 06:30 03/19/17 06:29 Senna/Docusate Sodium (Senokot S Tab) 1 tab QDL PRN PO 02/17/17 06:30 03/19/17 06:29 Cholecalciferol (Vitamin D Tab) 5,000 inter.unit DAILY PO 02/17/17 09:00 03/19/17 08:59 Future Hold 02/17/17 08:45 5,000 INTER.UNIT Polyethylene (Miralax Powder Packet) 17 gm QDL PRN PO 02/17/17 06:30 03/19/17 06:29 Pantoprazole Sodium 40 mg/ Syringe 10 ml @ 5 mls/min Q24H IV 02/17/17 14:00 03/19/17 13:59 02/24/17 14:47 5 MLS/MIN Metoprolol Tartrate (Lopressor Iv) 5 mg Q4 PRN IV 02/17/17 16:15 03/19/17 16:14 02/24/17 12:25 5 MG Heparin Sodium (Porcine) (Heparin 10 Unit/ ml 5 ml Flush) 5 ml PRN PRN FLUSH 02/18/17 00:30 03/20/17 00:29 Docusate Sodium (coLACE SYRUP) 100 mg BID NG 02/18/17 09:00 03/20/17 08:59 02/24/17 21:02 100 MG Enteral Nutritional Formula (Impact 1.0 Anish) 1,000 ml UD PRN OG 02/21/17 12:15 03/23/17 12:14 Enteral Nutritional Formula (Prosource No Carb) 60 ml BID OG 02/21/17 21:00 03/23/17 20:59 02/24/17 21:03 60 ML Fentanyl Citrate (Fentanyl Inj) 25 mcg Q2H PRN IV 02/22/17 10:45 03/08/17 10:44 02/23/17 19:32 25 MCG Albuterol/ Ipratropium (Duoneb) 3 ml Q4R PRN INH 02/22/17 17:00 03/24/17 16:59 02/23/17 14:09 3 ML Miscellaneous Information (Consult Glycemic Management Pharmacy) 1 ea UD PRN N/A 02/23/17 09:30 03/25/17 09:29 Insulin Human Regular (novoLIN-R) SLIDING SCALE Q6 SC 02/23/17 12:00 03/25/17 11:59 02/25/17 00:22 1 UNITS Methylprednisolone Sodium Succinate 30 mg/Syringe 0.48 ml @ 1.5 mls/min Q12H IV 02/23/17 20:00 03/19/17 15:14 02/24/17 20:04 1.5 MLS/MIN Heparin Sodium/ Dextrose 500 ml @ 40 mls/hr [id number] PRN IV 02/23/17 21:00 03/25/17 20:59 02/25/17 02:46 40 MLS/HR Propofol (Diprivan Iv Emulsion 100ml Vial) 1 dose UD PRN IV 02/24/17 12:15 02/27/17 12:14 02/25/17 02:28 1 DOSE Fentanyl Citrate 250 ml @ 0 mls/hr Q0M PRN IV 02/24/17 12:15 03/10/17 12:14 02/25/17 02:27 40 MLS/HR Insulin Glargine (Lantus Solostar Pen) SEE PROTOCOL BID SC 02/24/17 12:30 03/26/17 12:29 02/24/17 21:08 50 UNITS Ioversol (Optiray 320) 100 ml UD PRN IV 02/24/17 13:00 02/28/17 12:59 Parenteral Electrolyte Solution 1,000 ml @ 80 mls/hr [id number] IV 02/24/17 18:30 03/26/17 18:29 02/25/17 06:03 80 MLS/HR Vital Signs: Date Time Temp Pulse Resp B/P (MAP) Pulse Ox O2 Delivery O2 Flow Rate FiO2 02/25/17 08:00 36.8 102 15 123/78 (93) 95 CPAP 02/25/17 08:00 40 02/25/17 08:00 95 CPAP Mechanical Ventilator 02/25/17 07:54 40 02/25/17 06:00 97 10 121/73 (89) 96 Mechanical Ventilator 50 02/25/17 05:10 50 02/25/17 05:00 93 16 108/70 (83) 95 Mechanical Ventilator 50 02/25/17 04:19 97 Mechanical Ventilator 50 02/25/17 04:19 50 02/25/17 04:00 95 12 112/72 (85) 94 Mechanical Ventilator 50 02/25/17 03:18 93 13 115/67 (83) 98 Mechanical Ventilator 50 02/25/17 02:15 50 02/25/17 02:00 96 14 116/76 (89) 94 Mechanical Ventilator 50 02/25/17 01:00 96 15 109/76 (87) 95 Mechanical Ventilator 50 02/25/17 00:50 50 02/25/17 00:50 97 Mechanical Ventilator 50 02/25/17 00:00 36.8 102 17 110/70 (83) 94 Mechanical Ventilator 50 02/24/17 23:04 50 02/24/17 23:00 100 7 115/70 (85) 94 Mechanical Ventilator 50 02/24/17 22:00 99 17 119/74 (89) 94 Mechanical Ventilator 50 02/24/17 21:00 95 14 112/72 (85) 95 Mechanical Ventilator 50 02/24/17 20:17 97 Mechanical Ventilator 50 02/24/17 20:17 50 02/24/17 20:00 36.8 103 15 124/75 (91) 94 Mechanical Ventilator 50 02/24/17 19:10 50 02/24/17 19:00 104 12 118/75 (89) 95 Mechanical Ventilator 50 02/24/17 18:00 107 18 126/80 (95) 98 Mechanical Ventilator 50 02/24/17 17:00 50 02/24/17 16:00 50 02/24/17 16:00 98 Mechanical Ventilator 50 02/24/17 16:00 36.6 114 21 121/82 (95) 100 Mechanical Ventilator 50 02/24/17 14:54 50 02/24/17 14:00 124 35 140/86 (104) 100 Mechanical Ventilator 50 02/24/17 12:41 50 02/24/17 12:25 150 02/24/17 12:08 100 02/24/17 12:00 50 02/24/17 12:00 100 Mechanical Ventilator 50 02/24/17 12:00 155 35 194/89 (124) 100 Mechanical Ventilator 02/24/17 10:00 114 24 150/76 (100) 92 Oxymask 4.0 Laboratory Results: Last 24 Hours Test 02/24/17 11:55 02/24/17 12:34 02/24/17 13:36 02/24/17 15:18 Bedside Glucose 291 mg/dl Bedside Hemoglobin 11.9 g/dl Bedside Hematocrit 35 % Bedside Blood Gas pH (LAB) 7.32 Bedside Blood Gas pCO2 (LAB) 55 mmHg Bedside Blood Gas pO2 (LAB) 341 mmHg Bedside Blood Gas HCO3 (LAB) 29 meq/L Bedside Blood Gas Total CO2 30 mEq/l Bedside Blood Gas Base Excess (LAB) 3.0 meq/L Bedside Blood Gas O2 Saturation 100.0 % Bedside Sodium 133 mEq/L Bedside Potassium 4.8 mEq/L White Blood Count 17.52 K/uL Red Blood Count 3.82 M/uL Hemoglobin 10.9 g/dL Hematocrit 35.4 % Mean Corpuscular Volume 92.7 fL Mean Corpuscular Hemoglobin 28.5 pg Mean Corpuscular Hemoglobin Concent 30.8 g/dl RDW Standard Deviation 66.7 fL RDW Coefficient of Variation 19.5 % Platelet Count 325 K/uL Mean Platelet Volume 10.4 fL Activated Partial Thromboplast Time 53.5 SECONDS 44.3 SECONDS Partial Thromboplastin Ratio 2.1 1.7 Sodium Level 131 mmol/L Potassium Level 4.8 mmol/L Chloride Level 98 mmol/L Carbon Dioxide Level 28 mmol/L Anion Gap 5.0 mmol/L Blood Urea Nitrogen 31 mg/dl Creatinine 1.10 mg/dl Est Creatinine Clear Calc Drug Dose 108.5 ml/min Estimated GFR () 87.7 Estimated GFR (Non- 75.7 BUN/Creatinine Ratio 27.9 Random Glucose 313 mg/dl Lactic Acid Level 1.6 mmol/L Calcium Level 9.0 mg/dl Total Bilirubin 0.3 mg/dl Aspartate Amino Transf (AST/SGOT) 62 U/L Alanine Aminotransferase (ALT/SGPT) 27 U/L Alkaline Phosphatase 75 U/L Troponin I 0.058 ng/ml Total Protein 6.5 gm/dl Albumin 2.3 gm/dl Globulin 4.2 gm/dl Albumin/Globulin Ratio 0.5 Beta-Hydroxybutyric Acid 4.15 mg/dL Test 02/24/17 17:54 02/24/17 21:07 02/24/17 22:04 02/25/17 00:20 Bedside Glucose 199 mg/dl 152 mg/dl 183 mg/dl Activated Partial Thromboplast Time 61.4 SECONDS Partial Thromboplastin Ratio 2.4 Test 02/25/17 05:27 02/25/17 05:31 02/25/17 05:43 Bedside Glucose 146 mg/dl White Blood Count 10.16 K/uL Red Blood Count 3.64 M/uL Hemoglobin 10.3 g/dL Hematocrit 34.6 % Mean Corpuscular Volume 95.1 fL Mean Corpuscular Hemoglobin 28.3 pg Mean Corpuscular Hemoglobin Concent 29.8 g/dl Platelet Count 294 K/uL Mean Platelet Volume 9.9 fL Neutrophils (%) (Auto) 82.7 % Lymphocytes (%) (Auto) 7.9 % Monocytes (%) (Auto) 7.1 % Eosinophils (%) (Auto) 0.7 % Basophils (%) (Auto) 0.1 % Neutrophils # (Auto) 8.41 K/uL Lymphocytes # (Auto) 0.80 K/uL Monocytes # (Auto) 0.72 K/uL Eosinophils # (Auto) 0.07 K/uL Basophils # (Auto) 0.01 K/uL RDW Standard Deviation 65.1 fL RDW Coefficient of Variation 18.6 % Immature Granulocyte % (Auto) 1.5 % Immature Granulocyte # (Auto) 0.15 K/uL Activated Partial Thromboplast Time 51.1 SECONDS Partial Thromboplastin Ratio 2.0 Sodium Level 134 mmol/L Potassium Level 4.5 mmol/L Chloride Level 100 mmol/L Carbon Dioxide Level 32 mmol/L Anion Gap 2.0 mmol/L Blood Urea Nitrogen 29 mg/dl Creatinine 0.67 mg/dl Est Creatinine Clear Calc Drug Dose 178.1 ml/min Estimated GFR () 126.3 Estimated GFR (Non- 108.9 BUN/Creatinine Ratio 43.2 Random Glucose 142 mg/dl Calcium Level 9.3 mg/dl Phosphorus Level 3.0 mg/dl Magnesium Level 2.1 mg/dl Blood Gas Sample Site L Radial Bedside Blood Gas pH (LAB) 7.39 Bedside Blood Gas pCO2 (LAB) 55 mmHg Bedside Blood Gas pO2 (LAB) 121 mmHg Bedside Blood Gas HCO3 (LAB) 33 meq/L Bedside Blood Gas Total CO2 35 mEq/l Bedside Blood Gas Base Excess (LAB) 8.0 meq/L Bedside Blood Gas O2 Saturation 99.0 % Devin Test Pass Oxygen Delivery Device Ventilator Bedside FiO2 50 % Blood Gas PEEP 5
[2017-02-25] MEDS: INSULIN GLARGINE SOLOSTAR 100 UNITS/ML 3 ML PEN SC SCH ×2 (09:48→21:01)
[2017-02-25] MEDS ORDERED: GLYCOPYRROLATE INJ 0.2 MG/ML VIAL IV PRN (11:00)
[2017-02-25] MEDS: SCOPOLAMINE 1.5 MG TDSY TD SCH (12:04)
--- NOTE | 2017-02-25 12:32 | Progress Note ---
Internal Med Progress Note Date of Service: Feb 25, 2017. Provider Documentation: SUBJECTIVE: The patient was seen and examined S/P Extubation 02/22/17 and reintubated on 02/24/17 Alert and awake Has some pain -nonspecific OBJECTIVE: Vital Signs-as noted below Exam: General-S/P Extubation on 02/22/and Reintubation on 02/24/17 Eyes-normal ENT-Normal Neck-Supple Lungs-Decreased breath sound bilaterally at the bases Otherwise clear Heart-Regular,no murmur appreciated Abdomen-Benign,no masses,bowel sound present Extremities-trace edema bilaterally Neuro-AAO Communicating normally Moving all limbs ,generally weak Lab data as noted below. ASSESSMENT & PLAN: This is a 56 year old male with a PMH of small cell lung CA - has undergone chemo/radiation, recent diagnosis of bilateral PE, insulin dependent DM2, diabetic polyneuropathy presents with fevers and hypoxia from [facility] Reintubated on 02/24/17 Extubation on 02/22 Was doing well following extubation Developed sudden SOB with Tachycardia and desaturation yesterday and required reintubation No CT evidence of Pulmonary Embolism Remains stable on Vent Diuresis a lot-No DI as per Nephrology Likely has Diabetes Insipidus IV fluid replacement Appreciate Nephrology input Diuresis is improving Electrolytes are normalized Acute Hypoxic Respiratory Failure secondary to HCAP Acute hypoxic respiratory failure requiring intubation and mechanical ventilation. Contributing factors may include infection, ARDS, progressive small cell carcinoma lung, recent pulmonary embolism, suspected radiation pneumonitis. Bronchoscopy performed 02/17-results pending. CTA chest 02/18 showed resolution of previously noted PE's. Receiving broad-spectrum antibiotics with Cefepime, Levaquin and Vancomycin and intravenous methylprednisolone. Maintaining oxygenation, albeit with FIO2 of 80% and PEEP. Ongoing management per CCM and Pulmonary Medicine. Later on IV Bactrim was added Pulmonary consultation for further input Oncology consulted and input appreciated S/P Extubation 02/22 and Reintubation on 02/24/17 Antibiotics will be deescalated as per Laboratory Asst and Steroid dose adjusted Remains stable on Vent again Progressive small cell carcinoma lung Radiation Pneumonitis Patient also presented during last admission with likely radiation pneumonitis As per pulmonology, patient to be on prednisone 60mg with a slow taper Patient was recently tapered down to 50mg, and his condition worsened Appreciate Oncology input Has been on Solumedrol 40mg IV TID- Gradual Taper down of Steroid Bilateral PE Patient recently diagnosed with bilateral PE Continue Lovenox injections CTA chest 02/18 showed resolution of previously noted PE's Now on Heparin Oncology to decide about reasonable anticoagulation Insulin Dependent DM2 Patient is very specific regarding his insulin therapy He uses NPH 70/30 - was discharged with around 70 units in the AM and 90 units in the PM On his summary from [facility], he was requiring over 100 units BID Try 70 units BID for now, monitor for hypoglycemia, which was an issue during previous admission Consulted pharmacy glycemic control-reasonably stable GI / NUTRITION Receiving pantoprazole for GI prophylaxis. Receiving enteral nutrition via GT. Started on TPN Electrolytes Imbalance Hyponatremia and hypophosphatemia Replace and monitor VTE PROPHYLAXIS Receiving therapeutic dosing of enoxaparin due to prior history of VTE. RESUSCITATION STATUS DNR DISPOSITION Critically ill. Discharge disposition to be determined. . Consultants: Pulmonary Medicine Critical Care Medicine Medical Oncology . Procedures: cardiac monitoring endotracheal intubation mechanical ventilation right internal jugular central venous catheter arterial line IV medications Remains Critical but stable Discussed with the Father and the Mother Prognosis poor Vital Signs: Date Time Temp Pulse Resp B/P (MAP) Pulse Ox O2 Delivery O2 Flow Rate FiO2 02/25/17 11:26 108 96 02/25/17 10:00 108 18 137/81 (99) 94 CPAP 02/25/17 08:00 36.8 102 15 123/78 (93) 95 CPAP 02/25/17 08:00 40 02/25/17 08:00 95 CPAP Mechanical Ventilator 02/25/17 07:54 40 02/25/17 06:00 97 10 121/73 (89) 96 Mechanical Ventilator 50 02/25/17 05:10 50 02/25/17 05:00 93 16 108/70 (83) 95 Mechanical Ventilator 50 02/25/17 04:19 97 Mechanical Ventilator 50 02/25/17 04:19 50 02/25/17 04:00 95 12 112/72 (85) 94 Mechanical Ventilator 50 02/25/17 03:18 93 13 115/67 (83) 98 Mechanical Ventilator 50 02/25/17 02:15 50 02/25/17 02:00 96 14 116/76 (89) 94 Mechanical Ventilator 50 02/25/17 01:00 96 15 109/76 (87) 95 Mechanical Ventilator 50 02/25/17 00:50 50 02/25/17 00:50 97 Mechanical Ventilator 50 02/25/17 00:00 36.8 102 17 110/70 (83) 94 Mechanical Ventilator 50 02/24/17 23:04 50 02/24/17 23:00 100 7 115/70 (85) 94 Mechanical Ventilator 50 02/24/17 22:00 99 17 119/74 (89) 94 Mechanical Ventilator 50 02/24/17 21:00 95 14 112/72 (85) 95 Mechanical Ventilator 50 02/24/17 20:17 97 Mechanical Ventilator 50 02/24/17 20:17 50 02/24/17 20:00 36.8 103 15 124/75 (91) 94 Mechanical Ventilator 50 02/24/17 19:10 50 02/24/17 19:00 104 12 118/75 (89) 95 Mechanical Ventilator 50 02/24/17 18:00 107 18 126/80 (95) 98 Mechanical Ventilator 50 02/24/17 17:00 50 02/24/17 16:00 50 02/24/17 16:00 98 Mechanical Ventilator 50 02/24/17 16:00 36.6 114 21 121/82 (95) 100 Mechanical Ventilator 50 02/24/17 14:54 50 02/24/17 14:00 124 35 140/86 (104) 100 Mechanical Ventilator 50 02/24/17 12:41 50 Lab Results: Results Past 24 Hours Test 02/24/17 12:34 02/24/17 13:36 02/24/17 15:18 02/24/17 17:54 Range/Units Bedside Hemoglobin 11.9 14.0-18.0 g/dl Bedside Hematocrit 35 42-52 % Bedside Blood Gas pH (LAB) 7.32 7.35-7.45 Bedside Blood Gas pCO2 (LAB) 55 35-46 mmHg Bedside Blood Gas pO2 (LAB) 341 80-95 mmHg Bedside Blood Gas HCO3 (LAB) 29 19-24 meq/L Bedside Blood Gas Total CO2 30 24-31 mEq/l Bedside Blood Gas Base Excess (LAB) 3.0 -9-1.8 meq/L Bedside Blood Gas O2 Saturation 100.0 90-95 % Bedside Sodium 133 135-144 mEq/L Bedside Potassium 4.8 3.3-5.0 mEq/L White Blood Count 17.52 4.8-10.8 K/uL Red Blood Count 3.82 4.7-6.1 M/uL Hemoglobin 10.9 14.0-18.0 g/dL Hematocrit 35.4 42-52 % Mean Corpuscular Volume 92.7 80-100 fL Mean Corpuscular Hemoglobin 28.5 25-34 pg Mean Corpuscular Hemoglobin Concent 30.8 32-36 g/dl RDW Standard Deviation 66.7 36.4-46.3 fL RDW Coefficient of Variation 19.5 11.5-14.5 % Platelet Count 325 130-400 K/uL Mean Platelet Volume 10.4 7.4-10.4 fL Activated Partial Thromboplast Time 53.5 44.3 21.0-31.0 SECONDS Partial Thromboplastin Ratio 2.1 1.7 Sodium Level 131 136-145 mmol/L Potassium Level 4.8 3.5-5.1 mmol/L Chloride Level 98 98-107 mmol/L Carbon Dioxide Level 28 21-32 mmol/L Anion Gap 5.0 3-11 mmol/L Blood Urea Nitrogen 31 7-18 mg/dl Creatinine 1.10 0.60-1.40 mg/dl Est Creatinine Clear Calc Drug Dose 108.5 ml/min Estimated GFR () 87.7 Estimated GFR (Non- 75.7 BUN/Creatinine Ratio 27.9 10-20 Random Glucose 313 70-99 mg/dl Lactic Acid Level 1.6 0.4-2.0 mmol/L Calcium Level 9.0 8.5-10.1 mg/dl Total Bilirubin 0.3 0.2-1 mg/dl Aspartate Amino Transf (AST/SGOT) 62 15-37 U/L Alanine Aminotransferase (ALT/SGPT) 27 12-78 U/L Alkaline Phosphatase 75 45-117 U/L Troponin I 0.058 0-0.045 ng/ml Total Protein 6.5 6.4-8.2 gm/dl Albumin 2.3 3.4-5.0 gm/dl Globulin 4.2 2.5-4.0 gm/dl Albumin/Globulin Ratio 0.5 0.9-2 Beta-Hydroxybutyric Acid 4.15 0.2-2.81 mg/dL Bedside Glucose 199 70-99 mg/dl Test 02/24/17 21:07 02/24/17 22:04 02/25/17 00:20 02/25/17 05:27 Range/Units Bedside Glucose 152 183 146 70-99 mg/dl Activated Partial Thromboplast Time 61.4 21.0-31.0 SECONDS Partial Thromboplastin Ratio 2.4 Test 02/25/17 05:31 02/25/17 05:43 Range/Units White Blood Count 10.16 4.8-10.8 K/uL Red Blood Count 3.64 4.7-6.1 M/uL Hemoglobin 10.3 14.0-18.0 g/dL Hematocrit 34.6 42-52 % Mean Corpuscular Volume 95.1 80-100 fL Mean Corpuscular Hemoglobin 28.3 25-34 pg Mean Corpuscular Hemoglobin Concent 29.8 32-36 g/dl Platelet Count 294 130-400 K/uL Mean Platelet Volume 9.9 7.4-10.4 fL Neutrophils (%) (Auto) 82.7 % Lymphocytes (%) (Auto) 7.9 % Monocytes (%) (Auto) 7.1 % Eosinophils (%) (Auto) 0.7 % Basophils (%) (Auto) 0.1 % Neutrophils # (Auto) 8.41 1.4-6.5 K/uL Lymphocytes # (Auto) 0.80 1.2-3.4 K/uL Monocytes # (Auto) 0.72 0.11-0.59 K/uL Eosinophils # (Auto) 0.07 0-0.5 K/uL Basophils # (Auto) 0.01 0-0.2 K/uL RDW Standard Deviation 65.1 36.4-46.3 fL RDW Coefficient of Variation 18.6 11.5-14.5 % Immature Granulocyte % (Auto) 1.5 % Immature Granulocyte # (Auto) 0.15 0.00-0.02 K/uL Activated Partial Thromboplast Time 51.1 21.0-31.0 SECONDS Partial Thromboplastin Ratio 2.0 Sodium Level 134 136-145 mmol/L Potassium Level 4.5 3.5-5.1 mmol/L Chloride Level 100 98-107 mmol/L Carbon Dioxide Level 32 21-32 mmol/L Anion Gap 2.0 3-11 mmol/L Blood Urea Nitrogen 29 7-18 mg/dl Creatinine 0.67 0.60-1.40 mg/dl Est Creatinine Clear Calc Drug Dose 178.1 ml/min Estimated GFR () 126.3 Estimated GFR (Non- 108.9 BUN/Creatinine Ratio 43.2 10-20 Random Glucose 142 70-99 mg/dl Calcium Level 9.3 8.5-10.1 mg/dl Phosphorus Level 3.0 2.5-4.9 mg/dl Magnesium Level 2.1 1.8-2.4 mg/dl Blood Gas Sample Site L Radial Bedside Blood Gas pH (LAB) 7.39 7.35-7.45 Bedside Blood Gas pCO2 (LAB) 55 35-46 mmHg Bedside Blood Gas pO2 (LAB) 121 80-95 mmHg Bedside Blood Gas HCO3 (LAB) 33 19-24 meq/L Bedside Blood Gas Total CO2 35 24-31 mEq/l Bedside Blood Gas Base Excess (LAB) 8.0 -9-1.8 meq/L Bedside Blood Gas O2 Saturation 99.0 90-95 % Devin Test Pass Oxygen Delivery Device Ventilator Bedside FiO2 50 % Blood Gas PEEP 5 Microbiology Results 02/24/17 MRSA DNA Surveillance Screen - Final, Complete Specimen Negative for MRSA by DNA Probe
[2017-02-25] MEDS: PANTOprazole INJ 40 MG in SYRINGE 0 ML IV SCH (14:09)
[2017-02-25] MEDS: ACETYLCYSTEINE 20% INHAL SOLN ***DISPENSED BY RESP. INH SCH ×2 (14:40→20:28)
--- NOTE | 2017-02-25 14:59 | Pharmacy Progress Note ---
Pharmacy Glycemic Short Note 2 Date of Service Feb 25, 2017. Test 02/24/17 17:54 02/24/17 21:07 02/25/17 00:20 02/25/17 05:27 Bedside Glucose 199 mg/dl (70-99) 152 mg/dl (70-99) 183 mg/dl (70-99) 146 mg/dl (70-99) Test 02/25/17 05:31 02/25/17 12:25 Random Glucose 142 mg/dl (70-99) Bedside Glucose 94 mg/dl (70-99) OUTPATIENT ANTIDIABETIC REGIMEN: * Humulin 70/30 105 units SQ BID * Humulin-R SSI ACHS (~20 units w/ meals) * HbA1c: 6.4% (01/31/17) ASSESSMENT: * Patient's blood sugars well controlled on basal bolus, not requiring any correctional insulin. * Impact tube feeds started today, but IV Solu-medrol decreased, Lantus on sliding scale, will not add anything to cover carbohydrates in tube feeds until blood sugars are effected. PLAN FOR INPATIENT GLYCEMIC CONTROL: * Basal insulin * Lantus SQ BID * 0 units - BSG less than 90mg/dl * 50 units - BSG 90-180mg/dl * 65 units - BSG >180mg/dl * Bolus insulin * REGULAR INSULIN per scale ACHS or Q6hrs while NPO - pt reports allergy to NovoLog * Goal Range: Low 140 mg/dL - High 180 mg/dL * Correction Factor: 10 mg/dL/unit * Nutritional / Prandial insulin per carb ratio of 1 unit per 4 grams CHO consumed (pt currently NPO)
[2017-02-25] MEDS: CHECK SCOPOLAMINE PATCH PLACEMENT SCH (16:26)
[2017-02-25] MEDS: METHYLPREDNISOLONE IV 20 MG in SYRINGE 0 ML IV SCH (20:51)
[2017-02-26] VITALS (20 sets, daily range): BP systolic 109–173; BP diastolic 66–91; PULSE 84–113; TEMP 36.6–37.8; O2SAT 92–98
[2017-02-26] MEDS: PROPOFOL IV EMULSION 10 MG/ML 100 ML VIAL IV PRN (00:11)
[2017-02-26] MEDS: METHADONE HCL 10 MG TAB PO SCH ×4 (00:12→17:51)
[2017-02-26 05:04] LABS: EOS % 0.6 %; EOS ABS # 0.04 K/uL (0-0.5); HEMATOCRIT 32.2 % (42-52); HEMOGLOBIN 9.5 g/dL (14.0-18.0); IG# 0.08 K/uL (0.00-0.02); LYMPH % 8.3 %; LYMPH ABS # 0.54 K/uL (1.2-3.4); MEAN CELL VOLUME 95.5 fL (80-100); MEAN CORPUSCULAR HEMOGLOBIN 28.2 pg (25-34); MEAN CORPUSCULAR HGB CONC 29.5 g/dl (32-36); MONO % 8.7 %; MONO ABS # 0.57 K/uL (0.11-0.59); NEUT % 81.2 %; NEUT ABS # 5.29 K/uL (1.4-6.5); PLATELET COUNT 254 K/uL (130-400); RED CELL DISTRIBUTION WIDTH CV 18.2 % (11.5-14.5); RED CELL DISTRIBUTION WIDTH SD 64.4 fL (36.4-46.3); WHITE BLOOD COUNT 6.52 K/uL (4.8-10.8)
[2017-02-26 05:27] LABS: PTT PATIENT 49.8 SECONDS (21.0-31.0)
[2017-02-26 05:31] LABS: CALCIUM 9.1 mg/dl (8.5-10.1); CREATININE 0.55 mg/dl (0.60-1.40); POTASSIUM 4.2 mmol/L (3.5-5.1)
[2017-02-26 05:32] LABS: PHOSPHORUS 2.7 mg/dl (2.5-4.9)
[2017-02-26] MEDS: INSULIN HUMAN REGULAR SC SCH ×4 (06:10→17:58)
[2017-02-26] MEDS: ACETYLCYSTEINE 20% INHAL SOLN ***DISPENSED BY RESP. INH SCH (07:54)
[2017-02-26] MEDS: CHECK SCOPOLAMINE PATCH PLACEMENT SCH ×3 (08:00→15:43)
[2017-02-26] MEDS: NORMOSOL R 1,000 ML IV SCH (09:42)
[2017-02-26] MEDS: PROSOURCE NOCARB 30ML/PKT OG SCH ×2 (09:43→20:19)
[2017-02-26] MEDS: DOCUSATE SODIUM 100 MG/10 ML UDC NG SCH ×2 (09:43→20:19)
[2017-02-26] MEDS: INSULIN GLARGINE SOLOSTAR 100 UNITS/ML 3 ML PEN SC SCH ×2 (09:47→20:44)
[2017-02-26] MEDS: METHYLPREDNISOLONE IV 20 MG in SYRINGE 0 ML IV SCH ×2 (09:49→21:13)
--- NOTE | 2017-02-26 10:05 | Hematology/Oncology Prog Note ---
Hematology/Onc Progress Note Date of Service Feb 26, 2017. Subjective 56-year-old male, a case of small cell carcinoma of the lung, limited stage involving the chest, he completed 4 cycles of chemotherapy with carboplatin etoposide along with radiation treatment, now admitted for acute respiratory failure thought to be secondary to radiation induced pneumonitis, treated with the steroid,, bilateral pulmonary embolism and lower extremity DVT, also has few other comorbid conditions mainly diabetes mellitus and neuropathy, presently receiving broad-spectrum antibiotic coverage, so far bronchial washing showed no infectious etiology, he was extubated on 02/22/2017 but required re-intubation on 02/24/2017, I saw him at bedside, now once again gradually trying to wean off from the ventilator, hemodynamically he has remained stable, previously his course status was DNR but it was changed and that is why he was reintubated and now course status is full code. When I saw him in the ICU, he was still intubated but fully awake, communicated with me briefly in the help of the alphabet written on the piece of paper, he specifically said that the he was told that he is going to , I told him that the presently he is receiving treatment for respiratory failure and will continue with the current the medical management and will see how he does. I reviewed his blood workup done today, overall stable blood counts, hemoglobin level around 9.5, normal white blood cell count and platelet count, BUN/Creat: 21/0.5 normal electrolytes noted. Vital signs stable other than mild tachycardia, blood pressure is slightly on the higher side, O2 saturation is around 96% with FiO2 of 30-40%. No new bleeding complications. No fever. He is on Lovenox. He had CT scan of the chest with PE protocol on 02/24/2017, it showed no evidence of pulmonary embolism, multi focal multi lobar extensive airspace and ground-glass opacities which have improved compared to the prior examination. Unchanged trace left pleural effusion noted. Will continue the current medical management. Dr. Brett Gale Hem/Onc Vital Signs Vital Signs Past 12 Hours Date Time Temp Pulse Resp B/P (MAP) Pulse Ox O2 Delivery O2 Flow Rate FiO2 02/26/17 08:00 36.8 110 12 147/79 (101) 96 Mechanical Ventilator 40 02/26/17 08:00 40 02/26/17 08:00 Mechanical Ventilator 30 02/26/17 07:55 40 02/26/17 06:01 99 17 149/83 (105) 98 02/26/17 05:20 40 02/26/17 05:19 95 10 140/66 (90) 94 02/26/17 04:40 86 15 119/67 (84) 97 02/26/17 04:40 86 15 119/67 (84) 97 02/26/17 04:31 40 02/26/17 04:31 97 Mechanical Ventilator 40 02/26/17 04:00 84 16 119/67 (84) 94 02/26/17 04:00 84 16 119/67 (84) 94 02/26/17 03:00 86 12 114/69 (84) 95 02/26/17 03:00 86 12 114/69 (84) 95 02/26/17 02:22 40 02/26/17 02:00 36.6 88 13 114/68 (83) 94 Mechanical Ventilator 40 02/26/17 01:00 88 12 109/70 (83) 93 Mechanical Ventilator 40 02/26/17 00:29 40 02/26/17 00:29 97 Mechanical Ventilator 40 02/26/17 00:00 91 16 119/67 (84) 95 Mechanical Ventilator 40 02/25/17 23:00 102 10 117/66 (83) Mechanical Ventilator 40
[2017-02-26 11:19] LABS: CALCIUM 8.9 mg/dl (8.5-10.1); CREATININE 0.49 mg/dl (0.60-1.40); POTASSIUM 3.7 mmol/L (3.5-5.1)
--- NOTE | 2017-02-26 13:21 | Pharmacy Progress Note ---
Glycemic: Assessment & Plan Date of Service Feb 26, 2017. Assessment & Plan Date of Service Feb 25, 2017. OUTPATIENT ANTIDIABETIC REGIMEN: * Humulin 70/30 105 units SQ BID * Humulin-R SSI ACHS (~20 units w/ meals) * HbA1c: 6.4% (01/31/17) ASSESSMENT: * Patient's BSGs had ranged 93-146 yesterday * This AM's BSG 186, likely secondary to titration of tube feeds to goal overnight. * Given rising BSGs will need to start scheduled Regular insulin to cover CHOs delivered in continuous tube feeds if the tube feeds are to continue. Currently these feeds are on hold in anticipation of possible extubation later today. * Solu-Medrol continues at this time and will likely be a prolonged taper for him. Solu-medrol dose reduced yesterday. * BSGs may improve quickly if successfully extubated and tube feeds stopped. Will need to monitor for rapidly dropping BSGs with lessening stressors and scale back accordingly. PLAN FOR INPATIENT GLYCEMIC CONTROL: * Basal insulin * Lantus SQ BID * 0 units - BSG less than 110mg/dl * 40 units - BSG 110-140mg/dl * 55 units - BSG >140mg/dl * Bolus insulin * REGULAR INSULIN per scale ACHS or Q6hrs while NPO - pt reports allergy to NovoLog * Goal Range: Low 120 mg/dL - High 160 mg/dL * Correction Factor: 10 mg/dL/unit * Nutritional / Prandial insulin per carb ratio of 1 unit per 4 grams CHO consumed: * Impact @ 20cc/hr; give 4 units Regular SQ * Impact @ 30cc/hr; give 6 units Regular SQ * Impact @ 40cc/hr; give 8 units Regular SQ * Please note that the plan above was derived based on current level of insulin resistance and hospital stress. These recommendations are appropriate for inpatient admission only. Plan of care upon discharge will need to be reassessed to avoid potential outpatient hypo/hyperglycemia.
[2017-02-26] MEDS: PANTOprazole INJ 40 MG in SYRINGE 0 ML IV SCH (13:57)
[2017-02-26] MEDS: SCOPOLAMINE 1.5 MG TDSY TD SCH (13:57)
--- NOTE | 2017-02-26 16:22 | Palliative Care Consultation ---
Consultation Date of Consultation: Feb 26, 2017. Requesting Physician: Dr. Sarkar Attending Physician: Dr. Sarkar Reason for Consultation: Goals of care History of Present Illness This 56 year old male patient with PMH small cell lung cancer presented to the hospital nine days ago with SOB and pneumonia vs. radiation pneumonitis. Per patient's oncologist, Dr. Gale, disease is locally advanced but limited to the chest. He is s/p 4 rounds of chemotherapy and XRT to large mediastinal and left lung mass between 10/10-12/12/2016. He was recently discharged from [facility] on 02/09 after presenting with dyspnea, found to have pneumonia and bilateral PE. He was placed on prednisone, abx, and Lovenox--discharged to [facility]. While at [facility] patient became progressively dyspneic and hypoxic. Did not improve with supplemental oxygen and was subsequently sent to ED where he was found to be febrile at 38.8 and O2 sat in the 80's, WBC 12k. He was started on multiple abx, admitted to ICU. Patient was eventually intubated, extubated, then reintubated again two days ago for an unresponsive episode. Uncertain if this episode was due to hypoxia vs. neuro/seizure/?mets to brain. Today, patient is improved as far as neurologic status, his respiratory status is stable-- patient ready for extubation. Given patient's extensive SCLC with an essentially non-functioning left lung and poor right lung, the question comes into play whether or not patient would want reintubated/trach/PEG if decompensation occurs again. Palliative care consulted to assist with establishing goals of care. I met with the patient, his father Octavio, Octavio's Deanne, patient's brother Andrea, Andrea's Izabel, Dannie Gonzalez PA-C, Dr. Stark, and patient's digital pre press operator, in room 109. Patient is on ventilator but fully awake and oriented. Patient able to communicate by pointing to letters on letter board. Dr. Santos and Melyssa VILLANUEVA went over in detail about the patient's medical conditions and options for care: extubation with continued medical treatment but no reintubation/trach/PEG and focusing on comfort/quality of life vs. extubation and if decompensation occurs then do reintubation/trach/peg/transfer to LTACH vs. going with trach/PEG now and likely planning for LTACH. Patient was able to communicate that he "wants to live," but is unsure if he would really want to undergo aggressive life-prolonging measures or to be transferred to LTACH. Patient made the decision to be extubated then give his final answer. Family is supportive. Past Medical/Surgical History Medical History: Anxiety Chronic back pain DM type 2 Back surgery Small cell lung CA as above Pneumonia PEs Social History Smoking Status: Former Smoker History of Alcohol Use: No (IN THE PAST WHEN SON ) Marital Status: single Occupation Status: unemployed Review of Systems ENT: No trouble swallowing Respiratory: + problem reported (patient reports "hearing/felling fluid in his lungs") Cardiac: No chest pain Abdomen: + problem reported ("hungry"), No pain, No nausea, No vomiting Male : No problem reported Psychiatric: + problem reported (worry about situation) limited ROS due to patient condition/intubation Allergies Coded Allergies: Amoxicillin (Verified Allergy, Intermediate, sob, 02/17/17) PER CONVERSATION WITH ANSELMO AQUINO PA-C - SHE SPOKE WITH PATIENT WHO STATES THAT THIS IS NOT A TRUE ALLERGY HE HAS TOLERATED PENCILLINS IN THE PAST. TOLERATES ROCEPHIN X 5 DOSES AN OUTPATIENT. Atorvastatin (Verified Allergy, Intermediate, diarrhea, 02/17/17) Acetaminophen (Verified Allergy, Unknown, PT STATES "IT INTENSIFIES EFFECT ", 02/17/17) Clindamycin (Verified Allergy, Unknown, SHORTNESS OF BREATH, 02/17/17) Escitalopram (Verified Allergy, Unknown, GI UPSET, 02/17/17) Gabapentin (Verified Allergy, Unknown, CONSTIPATION, 02/17/17) Insulin Aspart (Verified Allergy, Unknown, ALLERGIC TO PRESERVATIVES IN NOVOLOG - OK WITH REGULAR/NPH, 02/17/17) Morphine (Verified Allergy, Unknown, DID NOT TOLERATE PER PT, 02/17/17) Propoxyphene (Verified Allergy, Unknown, "DID CRAZY THINGS", 02/17/17) Sitagliptin (Verified Allergy, Unknown, UNKNOWN RXN, 02/17/17) Adhesives (Verified Adverse Reaction, Unknown, "rips his skin off", ) Dextromethorphan (Verified Adverse Reaction, Unknown, HARD TO BREATHE?, ) Guaifenesin (Verified Adverse Reaction, Unknown, HARD TO BREATHE?, ) Metformin (Verified Adverse Reaction, Unknown, PT STATES "DID NOT WORK", 02/17/17) Medications Current Inpatient Medications Medications (Trade) Dose Ordered Sig/Prince Route Start Time Stop Time Status Last Admin Dose Admin Acetaminophen (Tylenol Tab) 650 mg Q4H PRN PO 02/17/17 06:30 03/19/17 06:29 Al Hydrox/Mg Hydrox/Simethicone (Maalox Max Susp) 15 ml Q4H PRN PO 02/17/17 06:30 03/19/17 06:29 Magnesium Hydroxide (Milk Of Magnesia Susp) 30 ml Q12H PRN PO 02/17/17 06:30 03/19/17 06:29 Diazepam (Valium Tab) 2 mg BID PRN PO 02/17/17 06:30 03/19/17 06:29 Future hold 02/24/17 21:09 2 MG Ondansetron HCl (Zofran Tab) 8 mg Q8 PRN PO 02/17/17 06:30 03/19/17 06:29 Senna/Docusate Sodium (Senokot S Tab) 1 tab QDL PRN PO 02/17/17 06:30 03/19/17 06:29 Cholecalciferol (Vitamin D Tab) 5,000 inter.unit DAILY PO 02/17/17 09:00 03/19/17 08:59 Future Hold 02/17/17 08:45 5,000 INTER.UNIT Polyethylene (Miralax Powder Packet) 17 gm QDL PRN PO 02/17/17 06:30 03/19/17 06:29 Pantoprazole Sodium 40 mg/ Syringe 10 ml @ 5 mls/min Q24H IV 02/17/17 14:00 03/19/17 13:59 02/25/17 14:09 5 MLS/MIN Metoprolol Tartrate (Lopressor Iv) 5 mg Q4 PRN IV 02/17/17 16:15 03/19/17 16:14 02/24/17 12:25 5 MG Heparin Sodium (Porcine) (Heparin 10 Unit/ ml 5 ml Flush) 5 ml PRN PRN FLUSH 02/18/17 00:30 03/20/17 00:29 Docusate Sodium (coLACE SYRUP) 100 mg BID NG 02/18/17 09:00 12/26/17 08:59 02/26/17 09:43 100 MG Enteral Nutritional Formula (Impact 1.0 Anish) 1,000 ml UD PRN OG 02/21/17 12:15 03/23/17 12:14 02/25/17 12:31 1,000 ML Enteral Nutritional Formula (Prosource No Carb) 60 ml BID OG 02/21/17 21:00 03/23/17 20:59 02/26/17 09:43 60 ML Fentanyl Citrate (Fentanyl Inj) 25 mcg Q2H PRN IV 02/22/17 10:45 03/08/17 10:44 02/23/17 19:32 25 MCG Albuterol/ Ipratropium (Duoneb) 3 ml Q4R PRN INH 02/22/17 17:00 03/24/17 16:59 02/23/17 14:09 3 ML Miscellaneous Information (Consult Glycemic Management Pharmacy) 1 ea UD PRN N/A 02/23/17 09:30 03/25/17 09:29 Insulin Human Regular (novoLIN-R) SLIDING SCALE Q6 SC 02/23/17 12:00 03/25/17 11:59 02/26/17 06:10 1 UNITS Heparin Sodium/ Dextrose 500 ml @ 40 mls/hr [id number] PRN IV 02/23/17 21:00 03/25/17 20:59 02/25/17 17:24 40 MLS/HR Propofol (Diprivan Iv Emulsion 100ml Vial) 1 dose UD PRN IV 02/24/17 12:15 02/27/17 12:14 02/26/17 00:11 1 DOSE Fentanyl Citrate 250 ml @ 0 mls/hr Q0M PRN IV 02/24/17 12:15 03/10/17 12:14 02/25/17 13:15 10 MLS/HR Insulin Glargine (Lantus Solostar Pen) SEE PROTOCOL BID SC 02/24/17 12:30 03/26/17 12:29 02/26/17 09:47 65 UNITS Ioversol (Optiray 320) 100 ml UD PRN IV 02/24/17 13:00 02/28/17 12:59 Methylprednisolone Sodium Succinate 20 mg/Syringe 0.32 ml @ 1.5 mls/min Q12H IV 02/25/17 20:00 03/19/17 15:14 02/26/17 09:49 1.5 MLS/MIN Scopolamine (Transderm-Scop Patch) 1.5 mg Q72H TD 02/25/17 11:00 03/27/17 10:59 02/25/17 12:04 1.5 MG Miscellaneous Information (Check Scopolamine Patch Placement) 1 ea QS N/A 02/25/17 16:00 03/27/17 15:59 02/26/17 08:00 1 EA Glycopyrrolate (Robinul Inj) 0.2 mg 3XDQ4 PRN IV 02/25/17 11:00 03/27/17 10:59 Acetylcysteine (Mucomyst 20% Inh Soln) 3 ml BIDR INH 02/25/17 11:35 03/27/17 11:34 02/26/17 07:54 3 ML Methadone HCl (Dolophine Tab) 15 mg Q6 PO 02/26/17 12:00 03/12/17 11:59 Physical Exam Date Time Temp Pulse Resp B/P (MAP) Pulse Ox O2 Delivery O2 Flow Rate FiO2 02/26/17 10:00 101 10 158/81 (106) 98 Mechanical Ventilator 40 02/26/17 08:00 36.8 110 12 147/79 (101) 96 Mechanical Ventilator 40 02/26/17 08:00 40 02/26/17 08:00 Mechanical Ventilator 40 02/26/17 08:00 Mechanical Ventilator 30 02/26/17 07:55 40 02/26/17 06:01 99 17 149/83 (105) 98 02/26/17 05:20 40 02/26/17 05:19 95 10 140/66 (90) 94 02/26/17 04:40 86 15 119/67 (84) 97 02/26/17 04:40 86 15 119/67 (84) 97 02/26/17 04:31 40 02/26/17 04:31 97 Mechanical Ventilator 40 02/26/17 04:00 84 16 119/67 (84) 94 02/26/17 04:00 84 16 119/67 (84) 94 02/26/17 03:00 86 12 114/69 (84) 95 02/26/17 03:00 86 12 114/69 (84) 95 02/26/17 02:22 40 02/26/17 02:00 36.6 88 13 114/68 (83) 94 Mechanical Ventilator 40 02/26/17 01:00 88 12 109/70 (83) 93 Mechanical Ventilator 40 02/26/17 00:29 40 02/26/17 00:29 97 Mechanical Ventilator 40 02/26/17 00:00 91 16 119/67 (84) 95 Mechanical Ventilator 40 02/25/17 23:00 102 10 117/66 (83) Mechanical Ventilator 40 02/25/17 22:05 40 02/25/17 22:00 36.6 100 12 118/66 (83) 95 Mechanical Ventilator 40 02/25/17 21:00 103 9 122/70 (87) 95 Mechanical Ventilator 40 02/25/17 20:11 40 02/25/17 20:11 97 Mechanical Ventilator 40 02/25/17 20:00 107 14 122/77 (92) 93 Mechanical Ventilator 40 02/25/17 19:15 40 02/25/17 19:00 36.6 109 21 123/79 (94) 87 Mechanical Ventilator 40 02/25/17 18:11 40 02/25/17 16:00 36.6 113 17 128/84 (99) 99 CPAP 02/25/17 16:00 40 02/25/17 16:00 100 CPAP Mechanical Ventilator 02/25/17 14:41 40 02/25/17 14:17 110 94 02/25/17 14:00 110 15 122/86 (98) 95 CPAP General Appearance: no apparent distress, + pertinent finding (chronically ill- appearing) ENT: hearing grossly normal Neck: supple, no JVD Respiratory: no respiratory distress, no accessory muscle use, + decreased breath sounds (L>R), + rhonchi (very coarse and moist throughout), + pertinent finding (ETT tube present attached to ventilator) Cardiovascular: regular rate, rhythm, + tachycardia Abdomen: normal bowel sounds, non tender, soft Neurologic/Psychiatric: alert, normal mood/affect, oriented x 3 Skin: + pallor Laboratory Results Last 24 Hours Test 02/25/17 17:48 02/25/17 20:56 02/26/17 00:37 02/26/17 04:46 Bedside Glucose 103 mg/dl 92 mg/dl 142 mg/dl White Blood Count 6.52 K/uL Red Blood Count 3.37 M/uL Hemoglobin 9.5 g/dL Hematocrit 32.2 % Mean Corpuscular Volume 95.5 fL Mean Corpuscular Hemoglobin 28.2 pg Mean Corpuscular Hemoglobin Concent 29.5 g/dl Platelet Count 254 K/uL Mean Platelet Volume 10.0 fL Neutrophils (%) (Auto) 81.2 % Lymphocytes (%) (Auto) 8.3 % Monocytes (%) (Auto) 8.7 % Eosinophils (%) (Auto) 0.6 % Basophils (%) (Auto) 0.0 % Neutrophils # (Auto) 5.29 K/uL Lymphocytes # (Auto) 0.54 K/uL Monocytes # (Auto) 0.57 K/uL Eosinophils # (Auto) 0.04 K/uL Basophils # (Auto) 0.00 K/uL RDW Standard Deviation 64.4 fL RDW Coefficient of Variation 18.2 % Immature Granulocyte % (Auto) 1.2 % Immature Granulocyte # (Auto) 0.08 K/uL Activated Partial Thromboplast Time 49.8 SECONDS Partial Thromboplastin Ratio 1.9 Sodium Level 133 mmol/L Potassium Level 4.2 mmol/L Chloride Level 99 mmol/L Carbon Dioxide Level 32 mmol/L Anion Gap 2.0 mmol/L Blood Urea Nitrogen 21 mg/dl Creatinine 0.55 mg/dl Est Creatinine Clear Calc Drug Dose 214.8 ml/min Estimated GFR () 136.9 Estimated GFR (Non- 118.1 BUN/Creatinine Ratio 38.3 Random Glucose 199 mg/dl Calcium Level 9.1 mg/dl Phosphorus Level 2.7 mg/dl Magnesium Level 1.8 mg/dl Test 02/26/17 06:06 02/26/17 10:51 Bedside Glucose 186 mg/dl Sodium Level 133 mmol/L Potassium Level 3.7 mmol/L Chloride Level 97 mmol/L Carbon Dioxide Level 35 mmol/L Anion Gap 1.0 mmol/L Blood Urea Nitrogen 20 mg/dl Creatinine 0.49 mg/dl Est Creatinine Clear Calc Drug Dose 241.6 ml/min Estimated GFR () 143.6 Estimated GFR (Non- 123.9 BUN/Creatinine Ratio 40.8 Random Glucose 160 mg/dl Calcium Level 8.9 mg/dl Ionized Calcium 1.24 mmol/l Assessment & Plan Problem list: Acute respiratory failure HCAP Radiation pneumonitis Small cell lung carcinoma, progressive Recent bilateral PE Goals of care (Z51.5) Palliative care recs: discussed with patient, family members as listed in HPI, and ICU team. -Plan as of now is for extubation and for patient to better be able to participate in conversation about goals of care. -Patient did allude to the fact that he would not want trach and PEG if it came to that decision, but he was not quite ready to make a definite decision. -Further recommendations to come as goals of care conversation continues. Thank you kindly for this consult. I will follow.
[2017-02-26] MEDS ORDERED: FLUCONAZOLE 200MG / NSS IV SCH (16:30)
--- NOTE | 2017-02-26 17:35 | Progress Note ---
Internal Med Progress Note Date of Service: Feb 26, 2017. Provider Documentation: SUBJECTIVE: The patient was seen and examined S/P Extubation 02/22/17 and reintubated on 02/24/17 Alert and awake Wants the tube out 02/26/17 OBJECTIVE: Vital Signs-as noted below Exam: General-S/P Extubation on 02/22/and Reintubation on 02/24/17 Minimal distress at rest Eyes-normal ENT-Normal Neck-Supple Lungs-Decreased breath sound bilaterally at the bases Otherwise clear Heart-Regular,no murmur appreciated Abdomen-Benign,no masses,bowel sound present Extremities-trace edema bilaterally Neuro-AAO Communicating normally Moving all limbs ,generally weak Lab data as noted below. ASSESSMENT & PLAN: This is a 56 year old male with a PMH of small cell lung CA - has undergone chemo/radiation, recent diagnosis of bilateral PE, insulin dependent DM2, diabetic polyneuropathy presents with fevers and hypoxia from [facility] Reintubated on 02/24/17 Extubation on 02/22 Was doing well following extubation Developed sudden SOB with Tachycardia and desaturation yesterday and required reintubation No CT evidence of Pulmonary Embolism Remains stable on Vent Will try to extubate today Diuresis a lot-No DI as per Nephrology Likely has Diabetes Insipidus IV fluid replacement Appreciate Nephrology input Diuresis is improving Electrolytes are normalized Acute Hypoxic Respiratory Failure secondary to HCAP Acute hypoxic respiratory failure requiring intubation and mechanical ventilation. Contributing factors may include infection, ARDS, progressive small cell carcinoma lung, recent pulmonary embolism, suspected radiation pneumonitis. Bronchoscopy performed 02/17-results pending. CTA chest 02/18 showed resolution of previously noted PE's. Receiving broad-spectrum antibiotics with Cefepime, Levaquin and Vancomycin and intravenous methylprednisolone. Maintaining oxygenation, albeit with FIO2 of 80% and PEEP. Ongoing management per CCM and Pulmonary Medicine. Later on IV Bactrim was added and discontinued Pulmonary consultation for further input Oncology consulted and input appreciated S/P Extubation 02/22 and Reintubation on 02/24/17 Antibiotics will be deescalated as per [employer] and Steroid dose adjusted Remains stable on Vent again Has been on IV fluconazole for meño in bronchial washing Try to extubate today 02/26/17 Progressive small cell carcinoma lung Radiation Pneumonitis Patient also presented during last admission with likely radiation pneumonitis As per pulmonology, patient to be on prednisone 60mg with a slow taper Patient was recently tapered down to 50mg, and his condition worsened Appreciate Oncology input Has been on Solumedrol 40mg IV TID- Gradual Taper down of Steroid Palliative care consulted Plan to have a multidisciplinary meeting with the family members soon for further management plan Bilateral PE Patient recently diagnosed with bilateral PE Continue Lovenox injections CTA chest 02/18 showed resolution of previously noted PE's Now on Heparin -continue for now Oncology to decide about reasonable anticoagulation Insulin Dependent DM2 Patient is very specific regarding his insulin therapy He uses NPH 70/30 - was discharged with around 70 units in the AM and 90 units in the PM On his summary from [facility], he was requiring over 100 units BID Try 70 units BID for now, monitor for hypoglycemia, which was an issue during previous admission Consulted pharmacy glycemic control-reasonably stable GI / NUTRITION Receiving pantoprazole for GI prophylaxis. Receiving enteral nutrition via GT. Started on TPN and now on Enteral feeding Change to oral when appropriate Electrolytes Imbalance Hyponatremia and hypophosphatemia Replace and monitor VTE PROPHYLAXIS Receiving therapeutic dosing of enoxaparin due to prior history of VTE. Has been on IV heparin RESUSCITATION STATUS DNR DISPOSITION Critically ill. Discharge disposition to be determined. . Consultants: Pulmonary Medicine Critical Care Medicine Medical Oncology . Procedures: cardiac monitoring endotracheal intubation mechanical ventilation right internal jugular central venous catheter arterial line IV medications Remains Critical but stable Discussed with the Father and the Mother Prognosis poor Vital Signs: Date Time Temp Pulse Resp B/P (MAP) Pulse Ox O2 Delivery O2 Flow Rate FiO2 02/26/17 15:50 Mask 40 02/26/17 14:00 37.8 104 18 173/87 (115) 96 Mechanical Ventilator 40 02/26/17 12:15 40 02/26/17 12:00 36.6 100 14 140/72 (94) 98 Mechanical Ventilator 40 02/26/17 12:00 Mechanical Ventilator 40 02/26/17 12:00 40 02/26/17 10:00 101 10 158/81 (106) 98 Mechanical Ventilator 40 02/26/17 08:00 36.8 110 12 147/79 (101) 96 Mechanical Ventilator 40 02/26/17 08:00 40 02/26/17 08:00 Mechanical Ventilator 40 02/26/17 08:00 Mechanical Ventilator 30 02/26/17 07:55 40 02/26/17 06:01 99 17 149/83 (105) 98 02/26/17 05:20 40 12/4/17 05:19 95 10 140/66 (90) 94 02/26/17 04:40 86 15 119/67 (84) 97 02/26/17 04:40 86 15 119/67 (84) 97 02/26/17 04:31 40 02/26/17 04:31 97 Mechanical Ventilator 40 02/26/17 04:00 84 16 119/67 (84) 94 02/26/17 04:00 84 16 119/67 (84) 94 02/26/17 03:00 86 12 114/69 (84) 95 02/26/17 03:00 86 12 114/69 (84) 95 02/26/17 02:22 40 02/26/17 02:00 36.6 88 13 114/68 (83) 94 Mechanical Ventilator 40 02/26/17 01:00 88 12 109/70 (83) 93 Mechanical Ventilator 40 02/26/17 00:29 40 02/26/17 00:29 97 Mechanical Ventilator 40 02/26/17 00:00 91 16 119/67 (84) 95 Mechanical Ventilator 40 02/25/17 23:00 102 10 117/66 (83) Mechanical Ventilator 40 02/25/17 22:05 40 02/25/17 22:00 36.6 100 12 118/66 (83) 95 Mechanical Ventilator 40 02/25/17 21:00 103 9 122/70 (87) 95 Mechanical Ventilator 40 02/25/17 20:11 40 02/25/17 20:11 97 Mechanical Ventilator 40 02/25/17 20:00 107 14 122/77 (92) 93 Mechanical Ventilator 40 02/25/17 19:15 40 02/25/17 19:00 36.6 109 21 123/79 (94) 87 Mechanical Ventilator 40 02/25/17 18:11 40 Lab Results: Results Past 24 Hours Test 02/25/17 17:48 02/25/17 20:56 02/26/17 00:37 02/26/17 04:46 Range/Units Bedside Glucose 103 92 142 70-99 mg/dl White Blood Count 6.52 4.8-10.8 K/uL Red Blood Count 3.37 4.7-6.1 M/uL Hemoglobin 9.5 14.0-18.0 g/dL Hematocrit 32.2 42-52 % Mean Corpuscular Volume 95.5 80-100 fL Mean Corpuscular Hemoglobin 28.2 25-34 pg Mean Corpuscular Hemoglobin Concent 29.5 32-36 g/dl Platelet Count 254 130-400 K/uL Mean Platelet Volume 10.0 7.4-10.4 fL Neutrophils (%) (Auto) 81.2 % Lymphocytes (%) (Auto) 8.3 % Monocytes (%) (Auto) 8.7 % Eosinophils (%) (Auto) 0.6 % Basophils (%) (Auto) 0.0 % Neutrophils # (Auto) 5.29 1.4-6.5 K/uL Lymphocytes # (Auto) 0.54 1.2-3.4 K/uL Monocytes # (Auto) 0.57 0.11-0.59 K/uL Eosinophils # (Auto) 0.04 0-0.5 K/uL Basophils # (Auto) 0.00 0-0.2 K/uL RDW Standard Deviation 64.4 36.4-46.3 fL RDW Coefficient of Variation 18.2 11.5-14.5 % Immature Granulocyte % (Auto) 1.2 % Immature Granulocyte # (Auto) 0.08 0.00-0.02 K/uL Activated Partial Thromboplast Time 49.8 21.0-31.0 SECONDS Partial Thromboplastin Ratio 1.9 Sodium Level 133 136-145 mmol/L Potassium Level 4.2 3.5-5.1 mmol/L Chloride Level 99 98-107 mmol/L Carbon Dioxide Level 32 21-32 mmol/L Anion Gap 2.0 3-11 mmol/L Blood Urea Nitrogen 21 7-18 mg/dl Creatinine 0.55 0.60-1.40 mg/dl Est Creatinine Clear Calc Drug Dose 214.8 ml/min Estimated GFR () 136.9 Estimated GFR (Non- 118.1 BUN/Creatinine Ratio 38.3 10-20 Random Glucose 199 70-99 mg/dl Calcium Level 9.1 8.5-10.1 mg/dl Phosphorus Level 2.7 2.5-4.9 mg/dl Magnesium Level 1.8 1.8-2.4 mg/dl Test 02/26/17 06:06 02/26/17 10:51 02/26/17 14:00 Range/Units Bedside Glucose 186 154 70-99 mg/dl Sodium Level 133 136-145 mmol/L Potassium Level 3.7 3.5-5.1 mmol/L Chloride Level 97 98-107 mmol/L Carbon Dioxide Level 35 21-32 mmol/L Anion Gap 1.0 3-11 mmol/L Blood Urea Nitrogen 20 7-18 mg/dl Creatinine 0.49 0.60-1.40 mg/dl Est Creatinine Clear Calc Drug Dose 241.6 ml/min Estimated GFR () 143.6 Estimated GFR (Non- 123.9 BUN/Creatinine Ratio 40.8 10-20 Random Glucose 160 70-99 mg/dl Calcium Level 8.9 8.5-10.1 mg/dl Ionized Calcium 1.24 1.12-1.32 mmol/l
[2017-02-26 18:41] LABS: OSMOLALITY,URINE 589 mOms/kg (500-800)
[2017-02-26 18:44] LABS: SODIUM RANDOM URINE 133 mEq/L
--- NOTE | 2017-02-26 19:09 | Critical Care Progress Note ---
Critical Care Progress Note Date of Service Feb 26, 2017. ICU Day ICU Day Number: [address] Das Subjective Patient resting comfortably in bed this morning while sedated and on vent. The patient is alert and oriented in able to communicate with pointing to O's. The patient's only complaint this morning is that his tube is hurting him and that he would like an increased dose of fentanyl. No other acute complaints. Objective GENERAL: Well-developed, well-nourished, on ventilator, responds appropriately through nonverbal cues EYES: Normal conjunctiva. Sclera non-icteric. HENT: Normocephalic, atraumatic. NECK: supple, trachea midline LUNGS: Coarse breath sounds at the bases bilaterally HEART: Regular rate and rhythm, no murmurs, rubs, or gallops ABDOMEN: Soft, nontender, nondistended NEURO EXAM: GCS 10T Current SOFA Score SOFA Score Response (Comments) Value PaO2/FiO2 (mmHg) < 400 1 SaO2 / FIO2 < 67 4 Platelets (x10) > 150 0 Bilirubin (mg/dL) < 1.2 0 [place] Coma Score 15 0 Level of Hypotension No Hypotension 0 Creatinine (mg/dL) < 1.2 0 Total 5 Assessment & Plan Patient is a 66-year-old male with small cell lung cancer stage IIIB status post radiation therapy as well as chemotherapy with evidence of radiation pneumonitis that presented with bilateral pneumonia and clinically and ARDS. Patient was extubated on 02/22 with no acute complications although on 02/24 was experiencing dyspnea and tachycardia and required to be reintubated. Head CT and CTA chest were done on 02/24 in no acute abnormalities were found. Family meeting performed today and patient decided that he would like to be extubated without any trach placement and would become DO NOT RESUSCITATE and DO NOT INTUBATE afterwards. Neuro: - CAM ICU negative - Extubated and alert and oriented at this time, GCS 15 - Increased methadone dose to 15 mg every 6 hours in order to reduce his current fentanyl requirement - Decreased fentanyl dose - Propofol 20 ml/hr - Fentanyl 150mcg/hr - Ativan 2 mg BID PRN - MRI combo - hold at this time after extubation - Noncontrast head CT negative Cardiovascular: - Hemodynamically stable - Metoprolol 5 mg q4h PRN titration Pulmonary: - Extubated this afternoon - tolerating well, alert and oriented, no acute distress - Currently off of all antibiotics - Patient initially admitted for ARDS secondary to small cell lung cancer and radiation pneumonitis --> empiric antibiotic treatment with vancomycin, Bactrim , cefepime, and Levaquin - Bronchoscopy showed no acute changes --> patient was successfully extubated on 02/22 and tolerated BiPAP and high flow well - 02/24 - acute hypoxic respiratory failure required reintubation for acute hypoxic respiratory failure - CTA chest to rule out PE was negative - No change on chest x-ray this morning - 20 mg IV Solu-Medrol q12 --> 3 week tapering dose --> further discuss with pulmonology - Currently -10 mL fluid balance (after receiving 20 mg of IV Lasix) Infectious disease: - Currently off of all antibiotics - Procalcitonin 0.16 on 02/21 - Lactate 1.2 on 02/24 Endocrine: - ISS + Basal Insulin - Solu-Medrol taper Renal - Total fluid balance -10 L - Stop fluids --> previously on Normosol at 80 ml/hr - Hyponatremia (133) --> ordered BMP, urine osmolarity, and urine sodium GI: - Tube feeds previously at 30 ml/hr with goal of 40 ml/hr - Protonix DVT prophylaxis: - Heparin - APTT 49.8 CODE STATUS - DO NOT RESUSCITATE/DO NOT INTUBATE status post extubation Resident Physician Supervision Note: Dr. Oliva was resident physician during care of patient. I separately evaluated patient and did history and exam. I discussed the case with the resident and generally agree with the findings and plan. Patient respiratory status improved, however he will require an extended steroid taper. 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 Patient previously felt that he had been cured of his cancer. Everyone now in agreement that the patient does still have lung cancer. Ultimate goals of care is to focus on quality as this lung cancer is an end-stage terminal condition. Accordingly if he was to have respiratory embarrassment requiring intubation he would not want to undergo such a life prolonging procedure. He is DO NOT RESUSCITATE DO NOT INTUBATE in event of cardiopulmonary arrest. Patient has had a large narcotic requirements, we will increase his methadone dosing by approximately 50% and will wean off the continuous fentanyl infusion. Patient continues to diurese. Patient remains critically ill due to acute hypoxic respiratory failure, stage IIIB small cell lung cancer, radiation pneumonitis, ARDS. I have personally spent 40 minutes of critical care time in the direct management of this patient. This is a life/limb threatening event. This includes time spent evaluating patient, direct bedside care, chart review, placing orders, interpretation of diagnostic studies, discussion with consultants, patient, and family members, as well as other required patient management activities. This time is exclusive of all separately billable procedures, and teaching time and separate from and in addition to any other critical care service time. Documented By: Shady Das DO Consults & Procedures Consultants: Pulmonary Procedures: CHEST ONE VIEW PORTABLE HISTORY: Intubated COMPARISON: Chest 02/19/2017. FINDINGS: The endotracheal tube terminates 3.7 from the butch. Nasogastric tube terminates below the diaphragm. The tip is not included on this study. Left jugular central venous catheter terminates at the proximal SVC. Bilateral airspace opacities have slightly improved. No pneumothorax. Small left pleural effusion and cardiomegaly persist. IMPRESSION: 1. Satisfactory support line placement. 2. Slight improvement in the bilateral airspace opacities. CHEST ONE VIEW PORTABLE CLINICAL HISTORY: ET PLACEMENT COMPARISON STUDY: Chest radiograph February 17, 2017 2:54 PM. FINDINGS: The tip of the endotracheal tube is 3.5 cm above the butch. A right internal jugular central line is unchanged in position. Tip of nasogastric tube is below the lower aspect of the image but at least within the proximal body of the stomach. Dense bilateral consolidation has significantly progressed since study performed this morning. There is no pneumothorax. IMPRESSION: 1. Satisfactory positioning of lines and tubes. 2. Progression of extensive bilateral opacities. This could reflect pneumonia or pulmonary edema. Data Medications: Current Inpatient Medications Medications (Trade) Dose Ordered Sig/Prince Route Start Time Stop Time Status Last Admin Dose Admin Acetaminophen (Tylenol Tab) 650 mg Q4H PRN PO 02/17/17 06:30 03/19/17 06:29 Al Hydrox/Mg Hydrox/Simethicone (Maalox Max Susp) 15 ml Q4H PRN PO 02/17/17 06:30 03/19/17 06:29 Magnesium Hydroxide (Milk Of Magnesia Susp) 30 ml Q12H PRN PO 02/17/17 06:30 03/19/17 06:29 Diazepam (Valium Tab) 2 mg BID PRN PO 02/17/17 06:30 03/19/17 06:29 Future hold 02/24/17 21:09 2 MG Ondansetron HCl (Zofran Tab) 8 mg Q8 PRN PO 02/17/17 06:30 03/19/17 06:29 Senna/Docusate Sodium (Senokot S Tab) 1 tab QDL PRN PO 02/17/17 06:30 03/19/17 06:29 Cholecalciferol (Vitamin D Tab) 5,000 inter.unit DAILY PO 02/17/17 09:00 03/19/17 08:59 Future Hold 02/17/17 08:45 5,000 INTER.UNIT Polyethylene (Miralax Powder Packet) 17 gm QDL PRN PO 02/17/17 06:30 03/19/17 06:29 Pantoprazole Sodium 40 mg/ Syringe 10 ml @ 5 mls/min Q24H IV 02/17/17 14:00 03/19/17 13:59 02/26/17 13:57 5 MLS/MIN Metoprolol Tartrate (Lopressor Iv) 5 mg Q4 PRN IV 02/17/17 16:15 03/19/17 16:14 02/24/17 12:25 5 MG Heparin Sodium (Porcine) (Heparin 10 Unit/ ml 5 ml Flush) 5 ml PRN PRN FLUSH 02/18/17 00:30 03/20/17 00:29 Docusate Sodium (coLACE SYRUP) 100 mg BID NG 02/18/17 09:00 03/20/17 08:59 02/26/17 09:43 100 MG Enteral Nutritional Formula (Impact 1.0 Anish) 1,000 ml UD PRN OG 02/21/17 12:15 03/23/17 12:14 02/25/17 12:31 1,000 ML Enteral Nutritional Formula (Prosource No Carb) 60 ml BID OG 02/21/17 21:00 03/23/17 20:59 02/26/17 09:43 60 ML Fentanyl Citrate (Fentanyl Inj) 25 mcg Q2H PRN IV 02/22/17 10:45 03/08/17 10:44 02/23/17 19:32 25 MCG Albuterol/ Ipratropium (Duoneb) 3 ml Q4R PRN INH 02/22/17 17:00 03/24/17 16:59 02/23/17 14:09 3 ML Miscellaneous Information (Consult Glycemic Management Pharmacy) 1 ea UD PRN N/A 02/23/17 09:30 03/25/17 09:29 Insulin Human Regular (novoLIN-R) SLIDING SCALE Q6 SC 02/23/17 12:00 03/25/17 11:59 02/26/17 06:10 1 UNITS Heparin Sodium/ Dextrose 500 ml @ 40 mls/hr [id number] PRN IV 02/23/17 21:00 03/25/17 20:59 02/25/17 17:24 40 MLS/HR Propofol (Diprivan Iv Emulsion 100ml Vial) 1 dose UD PRN IV 02/24/17 12:15 02/27/17 12:14 02/26/17 00:11 1 DOSE Fentanyl Citrate 250 ml @ 0 mls/hr Q0M PRN IV 02/24/17 12:15 03/10/17 12:14 02/25/17 13:15 10 MLS/HR Insulin Glargine (Lantus Solostar Pen) SEE PROTOCOL BID SC 02/24/17 12:30 03/26/17 12:29 02/26/17 09:47 65 UNITS Ioversol (Optiray 320) 100 ml UD PRN IV 02/24/17 13:00 02/28/17 12:59 Methylprednisolone Sodium Succinate 20 mg/Syringe 0.32 ml @ 1.5 mls/min Q12H IV 02/25/17 20:00 03/19/17 15:14 02/26/17 09:49 1.5 MLS/MIN Scopolamine (Transderm-Scop Patch) 1.5 mg Q72H TD 02/25/17 11:00 03/27/17 10:59 02/26/17 13:57 1.5 MG Miscellaneous Information (Check Scopolamine Patch Placement) 1 ea QS N/A 02/25/17 16:00 03/27/17 15:59 02/26/17 15:43 1 EA Glycopyrrolate (Robinul Inj) 0.2 mg 3XDQ4 PRN IV 02/25/17 11:00 03/27/17 10:59 Methadone HCl (Dolophine Tab) 15 mg Q6 PO 12/4/17 12:00 03/12/17 11:59 02/26/17 17:51 15 MG Fluconazole/ Sodium Chloride 200 mg/Prmx 100 ml @ 100 mls/hr DAILY@1600 IV 02/26/17 16:30 03/28/17 16:29 02/26/17 16:54 100 MLS/HR I & O: 24-Hour Column 02/27/17 08:00 Intake Total 1304 ml Output Total 1100 ml Balance 204 ml Vital Signs: Date Time Temp Pulse Resp B/P (MAP) Pulse Ox O2 Delivery O2 Flow Rate FiO2 02/26/17 17:00 97 13 144/78 (100) 93 02/26/17 16:00 102 13 147/82 (103) 92 02/26/17 15:50 Mask 40 02/26/17 15:01 113 19 114/91 (99) 95 02/26/17 15:00 110 20 97 02/26/17 14:00 37.8 104 18 173/87 (115) 96 Mechanical Ventilator 40 02/26/17 12:15 40 02/26/17 12:00 36.6 100 14 140/72 (94) 98 Mechanical Ventilator 40 02/26/17 12:00 Mechanical Ventilator 40 02/26/17 12:00 40 02/26/17 10:00 101 10 158/81 (106) 98 Mechanical Ventilator 40 02/26/17 08:00 36.8 110 12 147/79 (101) 96 Mechanical Ventilator 40 02/26/17 08:00 40 02/26/17 08:00 Mechanical Ventilator 40 02/26/17 08:00 Mechanical Ventilator 30 02/26/17 07:55 40 02/26/17 06:01 99 17 149/83 (105) 98 02/26/17 05:20 40 02/26/17 05:19 95 10 140/66 (90) 94 02/26/17 04:40 86 15 119/67 (84) 97 02/26/17 04:40 86 15 119/67 (84) 97 02/26/17 04:31 40 02/26/17 04:31 97 Mechanical Ventilator 40 02/26/17 04:00 84 16 119/67 (84) 94 02/26/17 04:00 84 16 119/67 (84) 94 02/26/17 03:00 86 12 114/69 (84) 95 02/26/17 03:00 86 12 114/69 (84) 95 02/26/17 02:22 40 02/26/17 02:00 36.6 88 13 114/68 (83) 94 Mechanical Ventilator 40 02/26/17 01:00 88 12 109/70 (83) 93 Mechanical Ventilator 40 02/26/17 00:29 40 02/26/17 00:29 97 Mechanical Ventilator 40 02/26/17 00:00 91 16 119/67 (84) 95 Mechanical Ventilator 40 02/25/17 23:00 102 10 117/66 (83) Mechanical Ventilator 40 02/25/17 22:05 40 02/25/17 22:00 36.6 100 12 118/66 (83) 95 Mechanical Ventilator 40 02/25/17 21:00 103 9 122/70 (87) 95 Mechanical Ventilator 40 02/25/17 20:11 40 02/25/17 20:11 97 Mechanical Ventilator 40 02/25/17 20:00 107 14 122/77 (92) 93 Mechanical Ventilator 40 02/25/17 19:15 40 Laboratory Results: Last 24 Hours Test 02/25/17 20:56 02/26/17 00:37 02/26/17 04:46 02/26/17 06:06 Bedside Glucose 92 mg/dl 142 mg/dl 186 mg/dl White Blood Count 6.52 K/uL Red Blood Count 3.37 M/uL Hemoglobin 9.5 g/dL Hematocrit 32.2 % Mean Corpuscular Volume 95.5 fL Mean Corpuscular Hemoglobin 28.2 pg Mean Corpuscular Hemoglobin Concent 29.5 g/dl Platelet Count 254 K/uL Mean Platelet Volume 10.0 fL Neutrophils (%) (Auto) 81.2 % Lymphocytes (%) (Auto) 8.3 % Monocytes (%) (Auto) 8.7 % Eosinophils (%) (Auto) 0.6 % Basophils (%) (Auto) 0.0 % Neutrophils # (Auto) 5.29 K/uL Lymphocytes # (Auto) 0.54 K/uL Monocytes # (Auto) 0.57 K/uL Eosinophils # (Auto) 0.04 K/uL Basophils # (Auto) 0.00 K/uL RDW Standard Deviation 64.4 fL RDW Coefficient of Variation 18.2 % Immature Granulocyte % (Auto) 1.2 % Immature Granulocyte # (Auto) 0.08 K/uL Activated Partial Thromboplast Time 49.8 SECONDS Partial Thromboplastin Ratio 1.9 Sodium Level 133 mmol/L Potassium Level 4.2 mmol/L Chloride Level 99 mmol/L Carbon Dioxide Level 32 mmol/L Anion Gap 2.0 mmol/L Blood Urea Nitrogen 21 mg/dl Creatinine 0.55 mg/dl Est Creatinine Clear Calc Drug Dose 214.8 ml/min Estimated GFR () 136.9 Estimated GFR (Non- 118.1 BUN/Creatinine Ratio 38.3 Random Glucose 199 mg/dl Calcium Level 9.1 mg/dl Phosphorus Level 2.7 mg/dl Magnesium Level 1.8 mg/dl Test 02/26/17 10:51 02/26/17 14:00 02/26/17 17:35 02/26/17 17:55 Sodium Level 133 mmol/L Potassium Level 3.7 mmol/L Chloride Level 97 mmol/L Carbon Dioxide Level 35 mmol/L Anion Gap 1.0 mmol/L Blood Urea Nitrogen 20 mg/dl Creatinine 0.49 mg/dl Est Creatinine Clear Calc Drug Dose 241.6 ml/min Estimated GFR () 143.6 Estimated GFR (Non- 123.9 BUN/Creatinine Ratio 40.8 Random Glucose 160 mg/dl Calcium Level 8.9 mg/dl Ionized Calcium 1.24 mmol/l Bedside Glucose 154 mg/dl 130 mg/dl Urine Osmolality 589 mOms/kg Urine Random Sodium 133 mEq/L Resident Tracking Resident Involvement: Resident Care Provided Care Provided: Adult Hospital Medicine
[2017-02-26] MEDS: HEPARIN 25,000 UNIT/500ML D5W 500 ML IV PRN (19:44)
[2017-02-26] MEDS: FENTANYL 1250MCG/250ML NSS 250 ML IV PRN (23:11)
[2017-02-26] MEDS ORDERED: GADAVIST IV PRN (23:30)
[2017-02-27] VITALS (30 sets, daily range): BP systolic 87–198; BP diastolic 58–158; PULSE 68–122; TEMP 36.7–37.1; O2SAT 91–98
[2017-02-27] MEDS: METHADONE HCL 10 MG TAB PO SCH ×5 (00:01→22:05)
[2017-02-27] MEDS: CHECK SCOPOLAMINE PATCH PLACEMENT SCH (00:21)
[2017-02-27] MEDS: METOPROLOL TARTRATE 1 MG/ML VIAL IV PRN ×3 (03:25→03:40)
[2017-02-27] MEDS ORDERED: NURSING VERBAL MED ORDER ONE (03:45)
[2017-02-27] MEDS ORDERED: AMIODARONE IV BOLUS / DRIP IV STA (03:46)
[2017-02-27] MEDS ORDERED: AMIODARONE / D5W 100 ML IV ONE (04:00)
[2017-02-27 04:08] LABS: BASO % 0.1 %; BASO ABS # 0.01 K/uL (0-0.2); EOS % 0.2 %; EOS ABS # 0.02 K/uL (0-0.5); HEMATOCRIT 34.6 % (42-52); HEMOGLOBIN 10.6 g/dL (14.0-18.0); IG# 0.05 K/uL (0.00-0.02); LYMPH % 7.2 %; LYMPH ABS # 0.63 K/uL (1.2-3.4); MEAN CELL VOLUME 93.8 fL (80-100); MEAN CORPUSCULAR HEMOGLOBIN 28.7 pg (25-34); MEAN CORPUSCULAR HGB CONC 30.6 g/dl (32-36); MEAN PLATELET VOLUME 9.6 fL (7.4-10.4); MONO % 7.6 %; MONO ABS # 0.66 K/uL (0.11-0.59); NEUT % 84.3 %; NEUT ABS # 7.36 K/uL (1.4-6.5); PLATELET COUNT 242 K/uL (130-400); RED CELL DISTRIBUTION WIDTH CV 18.3 % (11.5-14.5); RED CELL DISTRIBUTION WIDTH SD 63.3 fL (36.4-46.3); WHITE BLOOD COUNT 8.73 K/uL (4.8-10.8)
[2017-02-27] MEDS ORDERED: ESMOLOL BOLUS FROM BAG IV ONE (04:15)
[2017-02-27] MEDS ORDERED: ETOMIDATE 2 MG/ML 20 ML VIAL IV ONE ×2 (04:15→09:29)
[2017-02-27] MEDS ORDERED: ESMOLOL / NSS 2,500 MG in PREMIXED NSS 250 ML IV PRN (04:15)
[2017-02-27] MEDS ORDERED: AMIODARONE / D5W 200 ML IV SCH (04:15)
[2017-02-27 04:28] LABS: PTT PATIENT 36.9 SECONDS (21.0-31.0)
[2017-02-27 04:30] LABS: CALCIUM 9.5 mg/dl (8.5-10.1); CREATININE 0.55 mg/dl (0.60-1.40); POTASSIUM 3.9 mmol/L (3.5-5.1)
[2017-02-27 04:35] LABS: PHOSPHORUS 2.8 mg/dl (2.5-4.9)
--- NOTE | 2017-02-27 04:49 | Critical Care Progress Note ---
Critical Care Progress Note Date of Service Feb 27, 2017. Critical Care Progress Note At approx 0330, nursing alerted me to a SVT versus A Fib RVR with a rate of 205 on the monitor of Mr. Carcamo. EKG demonstrated A fib RVR with a rate of 148 at that time. Three doses of IV Metoprolol 5mg were administered and pt initially converted back to NSR for a short time. Pt pressures initially were stable with systolics of 104 - 120's and oxygen saturations remained >96%. Pts only complaint was feeling sweaty. He denied palpitations, nausea, lightheadedness, or chest pain. Amiodarone drip with infusion was started when pt flipped back into A. Fib RVR with rates of 120's - 160's. During this episode pts pressure began to drop to the mid 80's systolically. I spoke with the pt about options including cardioversion. He did state he was willing to undergo this emergently as needed. With the sudden reduction of pressure, I phoned Dr. Das who agreed with administering Etomidate and emergent cardioversion. Etomidate was administered ar 0423 and cardioversion at 200J was successful. Pt pressures rebounded to 100 systolically and oxygen saturations remained stable. Stat labs were drawn prior to cardioversion and are currently pending. I will optimize electrolytes with goals of Potassium greater than 4.2 and Magnesium 2.2 and trend any possible changes in troponin. Will continue to monitor pt closely on telemetry and to infuse Amiodarone.
[2017-02-27] MEDS ORDERED: HEPARIN IV BOLUS 8,000 UNIT in SYRINGE 0 ML IV ONE (05:15)
[2017-02-27] MEDS: POTASSIUM CHLR 20 MEQ / WTR 20 MEQ in PREMIXED WATER 100 ML IV SCH ×2 (05:26→07:57)
[2017-02-27] MEDS: MAGNESIUM SULFATE 1GM / D5W 1 GM in PREMIXED IN D5W 100 ML IV SCH ×2 (05:27→06:33)
[2017-02-27] MEDS: INSULIN HUMAN REGULAR SC SCH ×5 (05:37→20:23)
--- NOTE | 2017-02-27 07:40 | DIAGNOSTIC IMAGING REPORT ---
BRAIN COMBO HISTORY: 56 years-old Male r/o metatases,Has Lung cancer acute fall with head injury and blurry vision. History of lung cancer with concern for possible metastatic disease. COMPARISON: CT head 02/24/2017, brain MR 10/12/2016 TECHNIQUE: Multiplanar multisequence MRI the brain is obtained both with and without the use of 12 mL Gadavist FINDINGS: There is no restricted diffusion to suggest acute infarction. The midline structures including the corpus callosum, brainstem, optic chiasm, pituitary and pineal glands are unremarkable in the sagittal T1 series. There is no cerebellar tonsillar herniation. Mild degenerative changes of the imaged upper cervical spine. There is no acute intracranial hemorrhage, midline shift, abnormal extra-axial collections, hydrocephalus or mass. Minimal periventricular T2/FLAIR hyperintensities suggest possible chronic microvascular ischemic changes. T2/FLAIR prolongation of the left frontal lobe with mild encephalomalacia is again seen on image 12 of series 7 and image 16 series 6 suggesting remote infarction, unchanged. No pathologic blooming artifact identified. There is no abnormal intra-axial or extra-axial enhancement identified. The major flow voids at the level of the skull base are patent. Orbits are symmetric. Paranasal sinuses appear clear. Small bilateral mastoid effusions. Scalp, calvarium and soft tissues are unremarkable. IMPRESSION: 1. No acute intracranial abnormality. No acute infarction or abnormal enhancement. 2. 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 3. Small bilateral mastoid effusions. The above report was generated using voice recognition software. It may contain grammatical, syntax or spelling errors. Electronically signed by: Rolan Hyde M.D. 02/27/2017 7:39 AM Dictated Date/Time: 02/27/2017 7:31 AM
[2017-02-27] MEDS ORDERED: POTASSIUM CHLORIDE 20 MEQ/15 ML UDC NG ONE (08:30)
[2017-02-27] MEDS ORDERED: FENTANYL CITRATE 100 MCG 2 ML CARP IV ONE (09:29)
[2017-02-27] MEDS ORDERED: SUCCINYLCHOLINE CHLORIDE 20 MG/ML 10 ML VIAL IV ONE (09:29)
[2017-02-27] MEDS: HEPARIN 25,000 UNIT/500ML D5W 500 ML IV PRN (09:56)
[2017-02-27] MEDS: INSULIN GLARGINE SOLOSTAR 100 UNITS/ML 3 ML PEN SC SCH ×2 (09:58→20:23)
[2017-02-27] MEDS: AMIODARONE / D5W 200 ML IV SCH ×2 (10:04→21:48)
[2017-02-27] MEDS: DOCUSATE SODIUM 100 MG/10 ML UDC NG SCH (10:05)
[2017-02-27] MEDS: METHYLPREDNISOLONE IV 20 MG in SYRINGE 0 ML IV SCH ×2 (10:11→20:22)
[2017-02-27] MEDS: DOCUSATE SODIUM 100 MG CAP PO SCH ×2 (11:00→20:23)
[2017-02-27] MEDS ORDERED: [UNRECOGNIZED DRUG - REMARK] ONE (11:00)
[2017-02-27] MEDS: ENOXAPARIN 80 MG/0.8 ML SYR SQ SCH ×2 (11:14→20:23)
--- NOTE | 2017-02-27 14:11 | Pharmacy Progress Note ---
Glycemic Control Progress Note Date of Service Feb 27, 2017. Scope Glycemic Pharmacist consulted for glycemic control to write orders per [facility] inpatient glycemic control protocol. Objective Accuchecks BSG (last 24hrs): Test 02/26/17 14:00 02/26/17 17:55 02/26/17 20:41 02/27/17 00:10 Bedside Glucose 154 mg/dl (70-99) 130 mg/dl (70-99) 104 mg/dl (70-99) 94 mg/dl (70-99) Test 02/27/17 02:27 02/27/17 03:56 02/27/17 05:35 Bedside Glucose 128 mg/dl (70-99) 155 mg/dl (70-99) Random Glucose 124 mg/dl (70-99) HbA1c: 6.4% 01/31/17 Recent Pertinent Medications The patient is currently receiving: * Basal insulin: Lantus BID; 0 units if less than 110; 40 units if 110-140; 55 units if greater than 140 * Correctional Insulin: Regular Correction per scale Q 6 hours Goal Range: Low 120 mg/dL - High 160 mg/dL Correction Factor: 10 mg/dL/unit * Prandial insulin: Per carb ratio of 1 unit per 4 grams CHO consumed Outpatient Anti-Diabetic Meds * Humulin 70/30 105 units SQ BID * Humulin-R SSI ACHS (~20 units w/ meals) * HbA1c: 6.4% (01/31/17) Assessment & Plan ASSESSMENT: 02/26/17 * Patient's BSGs had ranged 93-146 yesterday * This AM's BSG 186, likely secondary to titration of tube feeds to goal overnight. * Given rising BSGs will need to start scheduled Regular insulin to cover CHOs delivered in continuous tube feeds if the tube feeds are to continue. Currently these feeds are on hold in anticipation of possible extubation later today. * Solu-Medrol continues at this time and will likely be a prolonged taper for him. Solu-medrol dose reduced yesterday. * BSGs may improve quickly if successfully extubated and tube feeds stopped. Will need to monitor for rapidly dropping BSGs with lessening stressors and scale back accordingly. 02/27/17 * BSGs have ranged 94-155 over the last 24 hrs * Over the last 24 hrs: pt extubated, tube feeds stopped and diet ordered. Only consumed 12gm CHO's with lunch. * Solu-Medrol dose unchanged, continues at 20mg Q 12 hrs with no taper ordered yet * Fasting AM BSG 155 today, after receiving 65 units of Lantus yesterday AM and 0 units in the PM * Plan to continue BID Lantus however adjust the scale somewhat to allow for lower doses if pt's BSGs trending lower with poor PO intake and no tube feeds * Current Regular insulin correction and prandial coverage doses are reasonable based upon current stressors and daily insulin requirements PLAN FOR INPATIENT GLYCEMIC CONTROL: * Lantus SQ BID per the following scale: * BSG less than 110: 0 units * BSG 110-140: give 35 units * BSG above 140: give 45 units * Continuing correction factor of 10 mg/dl/unit * Continuing carb ratio of 1 unit per 4 grams CHO consumed * Continuing goal range of Low 120 mg/dL - High 160 mg/dL * Please note that the plan above was derived based on current level of insulin resistance and hospital stress. These recommendations are appropriate for inpatient admission only. Plan of care upon discharge will need to be reassessed to avoid potential outpatient hypo/hyperglycemia. Thank you.
--- NOTE | 2017-02-27 14:35 | Critical Care Progress Note ---
Critical Care Progress Note Date of Service Feb 27, 2017. ICU Day ICU Day Number: [address] Das Subjective Patient is resting comfortably in bed this morning with no acute complaints. He states that his throat is mildly sore, but denies any shortness of breath, chest pain, or heart palpitations. He does not really recall any of the events overnight specifically concerning the cardioversion. Objective GENERAL: Well-developed, well-nourished, NAD EYES: Normal conjunctiva. Sclera non-icteric. HENT: Normocephalic, atraumatic, Nasal Cannula currently at 6L NECK: supple, trachea midline LUNGS: Coarse breath sounds at the bases bilaterally HEART: Regular rate and rhythm, no murmurs, rubs, or gallops ABDOMEN: Soft, nontender, nondistended NEURO EXAM: GCS 15, Alert & Oriented Current SOFA Score SOFA Score Response (Comments) Value PaO2/FiO2 (mmHg) < 400 1 SaO2 / FIO2 < 67 4 Platelets (x10) > 150 0 Bilirubin (mg/dL) < 1.2 0 Parker Coma Score 15 0 Level of Hypotension No Hypotension 0 Creatinine (mg/dL) < 1.2 0 Total 5 Assessment & Plan Patient is a 66-year-old male with small cell lung cancer stage IIIB status post radiation therapy as well as chemotherapy with evidence of radiation pneumonitis that presented with bilateral pneumonia and clinically and ARDS. Patient was extubated on 02/22 with no acute complications although on 02/24 was experiencing dyspnea and tachycardia and required to be reintubated. Head CT and CTA chest were done on 02/24 in no acute abnormalities were found. Family meeting performed today and patient decided that he would like to be extubated without any trach placement and would become DO NOT RESUSCITATE and DO NOT INTUBATE afterwards. Neuro: - CAM ICU negative - Methadone 15mg q6h - Discontinue Propofol and Fentanyl - Ativan 2 mg BID PRN - MRI Brain 02/26 1. No acute intracranial abnormality. No acute infarction or abnormal enhancement. 2. 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 3. Small bilateral mastoid effusions. - Noncontrast head CT negative - Discontinue Scopolamine patch Cardiovascular: - Hemodynamically stable - Metoprolol 5 mg q4h PRN titration Pulmonary: - Extubated on 02/27 - tolerating well, alert and oriented, no acute distress - Currently on 6L NC and resting comfortably in bed - Currently off of all antibiotics - Patient initially admitted for ARDS secondary to small cell lung cancer and radiation pneumonitis --> empiric antibiotic treatment with vancomycin, Bactrim , cefepime, and Levaquin - Bronchoscopy showed no acute changes --> patient was successfully extubated on 02/22 and tolerated BiPAP and high flow well - 02/24 - acute hypoxic respiratory failure required reintubation for acute hypoxic respiratory failure - CTA chest to rule out PE was negative - 20 mg IV Solu-Medrol q12 --> 3 week tapering dose - Currently -10 mL fluid balance (after receiving 20 mg of IV Lasix) Infectious disease: - Fluconazole 200mg - Candidiasis - Procalcitonin 0.16 on 02/21 - Lactate 1.2 on 02/24 Endocrine: - ISS + Basal Insulin - Solu-Medrol taper Renal - Total fluid balance -10 L - Stop fluids --> previously on Normosol at 80 ml/hr - Hyponatremia (133) - Osm - 286 - UOsm - 589 - Almas - 133 GI: - Regular Diabetic Diet - Protonix DVT prophylaxis: - Heparin - APTT 49.8 CODE STATUS - DO NOT RESUSCITATE/DO NOT INTUBATE status post extubation - POLST Form As Per Palliative Care: DNR, limited additional interventions, abx if life can be prolonged, trial period of artificial hydration/nutrition Resident Physician Supervision Note: Dr. Oliva was resident physician during care of patient. I separately evaluated patient and did history and exam. I discussed the case with the resident and generally agree with the findings and plan. Critically ill due to sudden arrhythmia requiring emergent cardioversion. Plan to load with amiodarone then stop seondary to compromised lung function. I have personally spent 40 minutes of critical care time in the direct management of this patient. This is a life/limb threatening event. This includes time spent evaluating patient, direct bedside care, chart review, placing orders, interpretation of diagnostic studies, discussion with consultants, patient, and family members, as well as other required patient management activities. This time is exclusive of all separately billable procedures, and teaching time and separate from and in addition to any other critical care service time. Documented By: Shady Das DO Consults & Procedures Consultants: Pulmonary Procedures: CHEST ONE VIEW PORTABLE HISTORY: Intubated COMPARISON: Chest 02/19/2017. FINDINGS: The endotracheal tube terminates 3.7 from the butch. Nasogastric tube terminates below the diaphragm. The tip is not included on this study. Left jugular central venous catheter terminates at the proximal SVC. Bilateral airspace opacities have slightly improved. No pneumothorax. Small left pleural effusion and cardiomegaly persist. IMPRESSION: 1. Satisfactory support line placement. 2. Slight improvement in the bilateral airspace opacities. CHEST ONE VIEW PORTABLE CLINICAL HISTORY: ET PLACEMENT COMPARISON STUDY: Chest radiograph February 17, 2017 2:54 PM. FINDINGS: The tip of the endotracheal tube is 3.5 cm above the butch. A right internal jugular central line is unchanged in position. Tip of nasogastric tube is below the lower aspect of the image but at least within the proximal body of the stomach. Dense bilateral consolidation has significantly progressed since study performed this morning. There is no pneumothorax. IMPRESSION: 1. Satisfactory positioning of lines and tubes. 2. Progression of extensive bilateral opacities. This could reflect pneumonia or pulmonary edema. Data Medications: Current Inpatient Medications Medications (Trade) Dose Ordered Sig/Prince Route Start Time Stop Time Status Last Admin Dose Admin Acetaminophen (Tylenol Tab) 650 mg Q4H PRN PO 02/17/17 06:30 03/19/17 06:29 Al Hydrox/Mg Hydrox/Simethicone (Maalox Max Susp) 15 ml Q4H PRN PO 02/17/17 06:30 03/19/17 06:29 Magnesium Hydroxide (Milk Of Magnesia Susp) 30 ml Q12H PRN PO 02/17/17 06:30 03/19/17 06:29 Diazepam (Valium Tab) 2 mg BID PRN PO 02/17/17 06:30 03/19/17 06:29 Future hold 02/24/17 21:09 2 MG Ondansetron HCl (Zofran Tab) 8 mg Q8 PRN PO 02/17/17 06:30 03/19/17 06:29 Senna/Docusate Sodium (Senokot S Tab) 1 tab QDL PRN PO 02/17/17 06:30 03/19/17 06:29 Cholecalciferol (Vitamin D Tab) 5,000 inter.unit DAILY PO 02/17/17 09:00 03/19/17 08:59 Future Hold 02/17/17 08:45 5,000 INTER.UNIT Polyethylene (Miralax Powder Packet) 17 gm QDL PRN PO 02/17/17 06:30 03/19/17 06:29 Metoprolol Tartrate (Lopressor Iv) 5 mg Q4 PRN IV 02/17/17 16:15 03/19/17 16:14 02/27/17 03:40 5 MG Heparin Sodium (Porcine) (Heparin 10 Unit/ ml 5 ml Flush) 5 ml PRN PRN FLUSH 02/18/17 00:30 03/20/17 00:29 Fentanyl Citrate (Fentanyl Inj) 25 mcg Q2H PRN IV 02/22/17 10:45 03/08/17 10:44 02/23/17 19:32 25 MCG Albuterol/ Ipratropium (Duoneb) 3 ml Q4R PRN INH 02/22/17 17:00 03/24/17 16:59 02/23/17 14:09 3 ML Miscellaneous Information (Consult Glycemic Management Pharmacy) 1 ea UD PRN N/A 02/23/17 09:30 03/25/17 09:29 Fentanyl Citrate 250 ml @ 0 mls/hr Q0M PRN IV 02/24/17 12:15 03/10/17 12:14 02/26/17 23:11 20 MLS/HR Insulin Glargine (Lantus Solostar Pen) SEE PROTOCOL BID SC 02/24/17 12:30 03/26/17 12:29 02/27/17 09:58 55 UNITS Ioversol (Optiray 320) 100 ml UD PRN IV 02/24/17 13:00 02/28/17 12:59 Methylprednisolone Sodium Succinate 20 mg/Syringe 0.32 ml @ 1.5 mls/min Q12H IV 02/25/17 20:00 03/19/17 15:14 02/27/17 10:11 1.5 MLS/MIN Glycopyrrolate (Robinul Inj) 0.2 mg 3XDQ4 PRN IV 02/25/17 11:00 03/27/17 10:59 Methadone HCl (Dolophine Tab) 15 mg Q6 PO 02/26/17 12:00 03/12/17 11:59 02/27/17 10:07 15 MG Gadobutrol (Gadavist) 12 mmol UD PRN IV 02/26/17 23:30 03/02/17 23:29 Amiodarone HCL/ Dextrose 200 ml @ 16.7 mls/hr [id number] IV 02/27/17 10:15 02/28/17 04:14 02/27/17 10:04 16.7 MLS/HR Miscellaneous (Stop Order) 1 ea ONE ONCE N/A 02/28/17 04:15 02/28/17 04:16 Fluconazole (Diflucan Tab) 200 mg DAILY@1600 PO 02/27/17 16:00 03/04/17 16:01 Enoxaparin Sodium (Lovenox Inj) 80 mg Q12H SQ 02/27/17 11:00 03/29/17 10:59 02/27/17 11:14 80 MG Docusate Sodium (coLACE CAP) 100 mg BID PO 02/27/17 11:00 03/29/17 10:59 Insulin Human Regular (novoLIN-R) SLIDING SCALE ACHS SC 02/27/17 11:00 03/29/17 10:59 02/27/17 12:28 3 UNITS Vital Signs: Date Time Temp Pulse Resp B/P (MAP) Pulse Ox O2 Delivery O2 Flow Rate FiO2 02/27/17 12:00 Nasal Cannula 6.0 02/27/17 12:00 36.7 78 13 124/69 (87) 93 Nasal Cannula 6.0 02/27/17 10:00 68 21 117/67 (84) 92 Nasal Cannula 6.0 02/27/17 08:00 Nasal Cannula 6.0 02/27/17 08:00 Nasal Cannula Oxymask 02/27/17 08:00 36.8 69 10 125/65 (85) 95 Nasal Cannula 6.0 02/27/17 06:15 85 14 115/65 (82) 97 02/27/17 04:50 88 15 113/71 (85) 02/27/17 04:45 84 12 106/67 (80) 02/27/17 04:40 86 11 110/66 (81) 93 02/27/17 04:35 84 17 103/65 (78) 02/27/17 04:30 83 20 103/61 (75) 02/27/17 04:28 84 15 100/59 (73) 96 02/27/17 04:26 82 18 87/58 (68) 93 02/27/17 04:21 87 18 127/95 (106) 97 02/27/17 04:17 122 198/158 (171) 98 02/27/17 04:13 117 16 95/65 (75) 96 02/27/17 04:11 107 18 /73 (49) 93 02/27/17 04:06 106 15 89/64 (72) 93 02/27/17 04:01 114 19 112/67 (82) 94 02/27/17 04:00 Oxymask 6.0 02/27/17 03:47 76 17 123/72 (89) 02/27/17 03:43 76 16 119/65 (83) 93 02/27/17 03:40 152 111/83 02/27/17 03:39 83 21 111/83 (92) 95 02/27/17 03:36 73 18 142/87 (105) 91 02/27/17 03:35 163 111/60 02/27/17 03:25 177 02/27/17 03:01 93 12 114/66 (82) 96 Oxymask 6.0 02/27/17 02:00 94 10 134/73 (93) 94 Nasal Cannula 6.0 02/27/17 01:00 98 13 125/73 (90) 02/27/17 00:00 Humidified Oxygen 40 02/27/17 00:00 37.1 99 16 144/81 (102) 92 Humidified Oxygen 40 02/26/17 22:00 37.0 02/26/17 20:00 Mask 40 02/26/17 20:00 36.9 02/26/17 17:00 97 13 144/78 (100) 93 02/26/17 16:00 102 13 147/82 (103) 92 02/26/17 15:50 Mask 40 02/26/17 15:01 113 19 114/91 (99) 95 02/26/17 15:00 110 20 97 Laboratory Results: Last 24 Hours Test 02/26/17 17:35 02/26/17 17:55 02/26/17 20:41 02/27/17 00:10 Urine Osmolality 589 mOms/kg Urine Random Sodium 133 mEq/L Bedside Glucose 130 mg/dl 104 mg/dl 94 mg/dl Test 02/27/17 02:27 02/27/17 03:56 02/27/17 05:35 02/27/17 10:43 Bedside Glucose 128 mg/dl 155 mg/dl White Blood Count 8.73 K/uL Red Blood Count 3.69 M/uL Hemoglobin 10.6 g/dL Hematocrit 34.6 % Mean Corpuscular Volume 93.8 fL Mean Corpuscular Hemoglobin 28.7 pg Mean Corpuscular Hemoglobin Concent 30.6 g/dl Platelet Count 242 K/uL Mean Platelet Volume 9.6 fL Neutrophils (%) (Auto) 84.3 % Lymphocytes (%) (Auto) 7.2 % Monocytes (%) (Auto) 7.6 % Eosinophils (%) (Auto) 0.2 % Basophils (%) (Auto) 0.1 % Neutrophils # (Auto) 7.36 K/uL Lymphocytes # (Auto) 0.63 K/uL Monocytes # (Auto) 0.66 K/uL Eosinophils # (Auto) 0.02 K/uL Basophils # (Auto) 0.01 K/uL RDW Standard Deviation 63.3 fL RDW Coefficient of Variation 18.3 % Immature Granulocyte % (Auto) 0.6 % Immature Granulocyte # (Auto) 0.05 K/uL Activated Partial Thromboplast Time 36.9 SECONDS Partial Thromboplastin Ratio 1.4 Sodium Level 133 mmol/L Potassium Level 3.9 mmol/L Chloride Level 96 mmol/L Carbon Dioxide Level 36 mmol/L Anion Gap 1.0 mmol/L Blood Urea Nitrogen 15 mg/dl Creatinine 0.55 mg/dl Est Creatinine Clear Calc Drug Dose 215.2 ml/min Estimated GFR () 136.9 Estimated GFR (Non- 118.1 BUN/Creatinine Ratio 27.5 Random Glucose 124 mg/dl Calcium Level 9.5 mg/dl Phosphorus Level 2.8 mg/dl Magnesium Level 1.7 mg/dl Troponin I 0.020 ng/ml Osmolality 286 mOsm/kg Resident Tracking Resident Involvement: Resident Care Provided Care Provided: Adult [facility]
--- NOTE | 2017-02-27 16:10 | Palliative Care Progress Note ---
Palliative Care Progress Note Date of Service Feb 27, 2017. Subjective Met with patient, his brother Jr, and father Octavio in room 109 to complete POLST form. Patient completed as follows: DNR, limited additional interventions , abx if life can be prolonged, trial period of artificial hydration/nutrition. All options were discussed in detail by myself with the brother and father present-- they denied any further questions/concerns. Surrogate decision maker on back of POLST is patient's brother Jr Carcamo. Copy of POLST placed on chart, original is with patient.
[2017-02-27] MEDS: FLUCONAZOLE 100 MG TAB PO SCH (16:42)
--- NOTE | 2017-02-27 17:32 | Progress Note ---
Medicine Progress Note Date & Time of Visit: Feb 27, 2017 at 16:59. Subjective Patient was seen earlier this AM; denies any complaints other than wanting to eat. Does not recall last nights events, also does not recall much of this hospitalization and reports not knowing that he was intubated 2 times this admission. No other complaints at this time. Overnight had a fib with RVR, which was not sustained by metoprolol and amiodarone and required cardioversion. Objective Last 8 Hrs Date Time Temp Pulse Resp B/P (MAP) Pulse Ox O2 Delivery O2 Flow Rate FiO2 02/27/17 16:00 91 Nasal Cannula 6.0 02/27/17 16:00 36.8 80 20 144/81 (102) 91 Nasal Cannula 6.0 02/27/17 14:00 82 18 141/80 (100) 93 Nasal Cannula 6.0 02/27/17 12:00 Nasal Cannula 6.0 02/27/17 12:00 36.7 78 13 124/69 (87) 93 Nasal Cannula 6.0 02/27/17 10:00 68 21 117/67 (84) 92 Nasal Cannula 6.0 Physical Exam: GENERAL: Patient is in no acute distress. HEENT: No acute trauma, normocephalic, mucous membranes moist, no nasal congestion, no scleral icterus. Conjunctivae clear NECK: No stridor, trachea is midline. LUNGS: Clear to auscultation bilaterally, no wheeze, no rhonchi, breath sounds equal. HEART: Without murmurs gallops or rubs, regular rate and rhythm. ABDOMEN: Soft, nontender, bowel sounds positive, no hepatosplenomegaly EXTREMITIES: No cyanosis or edema, moving all 4 limbs without pain NEUROLOGIC: Oriented x 3, no acute motor or sensory deficits, no focal weakness. Some slurring of speech noted SKIN: No rash, no jaundice, no diaphoresis. Laboratory Results: Last 24 Hours Test 02/26/17 17:35 02/26/17 17:55 02/26/17 20:41 02/27/17 00:10 Urine Osmolality 589 mOms/kg Urine Random Sodium 133 mEq/L Bedside Glucose 130 mg/dl 104 mg/dl 94 mg/dl Test 02/27/17 02:27 02/27/17 03:56 02/27/17 05:35 02/27/17 10:43 Bedside Glucose 128 mg/dl 155 mg/dl White Blood Count 8.73 K/uL Red Blood Count 3.69 M/uL Hemoglobin 10.6 g/dL Hematocrit 34.6 % Mean Corpuscular Volume 93.8 fL Mean Corpuscular Hemoglobin 28.7 pg Mean Corpuscular Hemoglobin Concent 30.6 g/dl Platelet Count 242 K/uL Mean Platelet Volume 9.6 fL Neutrophils (%) (Auto) 84.3 % Lymphocytes (%) (Auto) 7.2 % Monocytes (%) (Auto) 7.6 % Eosinophils (%) (Auto) 0.2 % Basophils (%) (Auto) 0.1 % Neutrophils # (Auto) 7.36 K/uL Lymphocytes # (Auto) 0.63 K/uL Monocytes # (Auto) 0.66 K/uL Eosinophils # (Auto) 0.02 K/uL Basophils # (Auto) 0.01 K/uL RDW Standard Deviation 63.3 fL RDW Coefficient of Variation 18.3 % Immature Granulocyte % (Auto) 0.6 % Immature Granulocyte # (Auto) 0.05 K/uL Activated Partial Thromboplast Time 36.9 SECONDS Partial Thromboplastin Ratio 1.4 Sodium Level 133 mmol/L Potassium Level 3.9 mmol/L Chloride Level 96 mmol/L Carbon Dioxide Level 36 mmol/L Anion Gap 1.0 mmol/L Blood Urea Nitrogen 15 mg/dl Creatinine 0.55 mg/dl Est Creatinine Clear Calc Drug Dose 215.2 ml/min Estimated GFR () 136.9 Estimated GFR (Non- 118.1 BUN/Creatinine Ratio 27.5 Random Glucose 124 mg/dl Calcium Level 9.5 mg/dl Phosphorus Level 2.8 mg/dl Magnesium Level 1.7 mg/dl Troponin I 0.020 ng/ml Osmolality 286 mOsm/kg Test 02/27/17 16:09 Bedside Glucose 162 mg/dl Assessment & Plan EPISODE OF A FIB WITH RVR: -s/p emergent cardioversion in the ICU early this AM when rates were not improving after 3 doses IV metoprolol, amiodarone drip and hypotension -has been in NSR since then with an amiodarone drip that has been continued ACUTE HYPOXIC RESPIRATORY FAILURE: -required intubation and mechanical ventilation twice since admission, initially appeared as ARDS picture but resolved quickly and the reintubation etiology was apnea but of unknown cause; unlikely pneumonia -known underlying small cell lung CA, recent pulmonary embolism (doubtful as CT chest shows less clot burden now), suspected radiation pneumonitis. -Bronchoscopy performed 02/17, cultures only showed meño albicans; neg for AFB or non samy bacteria -was on broad-spectrum antibiotics with Cefepime, Levaquin and Vancomycin, and Bactrim; now off antibiotics -Steroids: intravenous methylprednisolone; on slow steroid taper -Aerodynamics Teacher consulted, management appreciated -S/P Extubation 02/22 and Reintubation on 02/24/17, Extubated again 02/26/17 -continued on IV fluconazole for meño in bronchial washing PROGRESSIVE SMALL CELL LUNG CA: -stage IIIb 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 per Onc -s/p several rounds of chemo and a course of radiation -Hem/Onc consulted, appreciate follow up -Palliative care consult, appreciated recs, POLST form to be completed, patient is DNR/DNI PREVIOUS RADIATION PNEUMONITIS: -presented during his last admission with probable radiation pneumonitis -As per pulmonology, patient to be on prednisone 60mg with a slow taper, patient was recently tapered down to 50mg, and his condition worsened -continued on Solumedrol 40mg IV BID with plans for slow taper SUBACUTE BILATERAL PE: -clot size decreased as of recent CT chest -was on heparin, will be switched back to Lovenox injections today DM TYPE II: Insulin dependent -patient is reportedly very specific regarding his insulin therapy and diabetes control -was on insulin drip, has since been transitioned to subcutaneous insulin -Glycemic pharmacy consulted, appreciate management -HbA1c: ELECTROLYTE DERANGEMENTS: -Hyponatremia: etiology unclear, serum/urine osmoles pending for further workup -relative hypophosphatemia, hypokalemia, hypomagnesemia - replete and recheck -patient is auto-diuresing with significant urine output, monitor lytes closely Consultants: Pulmonary Medicine Critical Care Medicine Medical Oncology . Procedures: cardiac monitoring endotracheal intubation mechanical ventilation right internal jugular central venous catheter arterial line IV medications . Current Inpatient Medications: Current Inpatient Medications Medications (Trade) Dose Ordered Sig/Prince Route Start Time Stop Time Status Last Admin Dose Admin Acetaminophen (Tylenol Tab) 650 mg Q4H PRN PO 02/17/17 06:30 03/19/17 06:29 Al Hydrox/Mg Hydrox/Simethicone (Maalox Max Susp) 15 ml Q4H PRN PO 02/17/17 06:30 03/19/17 06:29 Magnesium Hydroxide (Milk Of Magnesia Susp) 30 ml Q12H PRN PO 02/17/17 06:30 03/19/17 06:29 Diazepam (Valium Tab) 2 mg BID PRN PO 02/17/17 06:30 03/19/17 06:29 Future hold 02/24/17 21:09 2 MG Ondansetron HCl (Zofran Tab) 8 mg Q8 PRN PO 02/17/17 06:30 03/19/17 06:29 Senna/Docusate Sodium (Senokot S Tab) 1 tab QDL PRN PO 02/17/17 06:30 03/19/17 06:29 Cholecalciferol (Vitamin D Tab) 5,000 inter.unit DAILY PO 02/17/17 09:00 03/19/17 08:59 Future Hold 02/17/17 08:45 5,000 INTER.UNIT Polyethylene (Miralax Powder Packet) 17 gm QDL PRN PO 02/17/17 06:30 03/19/17 06:29 Metoprolol Tartrate (Lopressor Iv) 5 mg Q4 PRN IV 02/17/17 16:15 03/19/17 16:14 02/27/17 03:40 5 MG Heparin Sodium (Porcine) (Heparin 10 Unit/ ml 5 ml Flush) 5 ml PRN PRN FLUSH 02/18/17 00:30 03/20/17 00:29 Fentanyl Citrate (Fentanyl Inj) 25 mcg Q2H PRN IV 02/22/17 10:45 03/08/17 10:44 02/23/17 19:32 25 MCG Albuterol/ Ipratropium (Duoneb) 3 ml Q4R PRN INH 02/22/17 17:00 03/24/17 16:59 02/23/17 14:09 3 ML Miscellaneous Information (Consult Glycemic Management Pharmacy) 1 ea UD PRN N/A 02/23/17 09:30 03/25/17 09:29 Fentanyl Citrate 250 ml @ 0 mls/hr Q0M PRN IV 02/24/17 12:15 03/10/17 12:14 02/26/17 23:11 20 MLS/HR Insulin Glargine (Lantus Solostar Pen) SEE PROTOCOL BID SC 02/24/17 12:30 03/26/17 12:29 02/27/17 09:58 55 UNITS Ioversol (Optiray 320) 100 ml UD PRN IV 02/24/17 13:00 02/28/17 12:59 Methylprednisolone Sodium Succinate 20 mg/Syringe 0.32 ml @ 1.5 mls/min Q12H IV 02/25/17 20:00 03/19/17 15:14 02/27/17 10:11 1.5 MLS/MIN Glycopyrrolate (Robinul Inj) 0.2 mg 3XDQ4 PRN IV 02/25/17 11:00 03/27/17 10:59 Methadone HCl (Dolophine Tab) 15 mg Q6 PO 02/26/17 12:00 03/12/17 11:59 02/27/17 16:42 15 MG Gadobutrol (Gadavist) 12 mmol UD PRN IV 02/26/17 23:30 03/02/17 23:29 Amiodarone HCL/ Dextrose 200 ml @ 16.7 mls/hr [id number] IV 02/27/17 10:15 02/28/17 04:14 02/27/17 10:04 16.7 MLS/HR Miscellaneous (Stop Order) 1 ea ONE ONCE N/A 02/28/17 04:15 02/28/17 04:16 Fluconazole (Diflucan Tab) 200 mg DAILY@1600 PO 02/27/17 16:00 03/04/17 16:01 02/27/17 16:42 200 MG Enoxaparin Sodium (Lovenox Inj) 80 mg Q12H SQ 02/27/17 11:00 03/29/17 10:59 02/27/17 11:14 80 MG Docusate Sodium (coLACE CAP) 100 mg BID PO 02/27/17 11:00 03/29/17 10:59 Insulin Human Regular (novoLIN-R) SLIDING SCALE ACHS SC 02/27/17 11:00 03/29/17 10:59 02/27/17 16:45 7 UNITS
[2017-02-28] VITALS (10 sets, daily range): BP systolic 114–146; BP diastolic 68–90; PULSE 74–104; TEMP 36.4–36.9; O2SAT 88–99
[2017-02-28] MEDS ORDERED: [UNRECOGNIZED DRUG - REMARK] ONE (04:15)
[2017-02-28 06:01] LABS: CALCIUM 9.5 mg/dl (8.5-10.1); CREATININE 0.55 mg/dl (0.60-1.40)
[2017-02-28 06:02] LABS: PHOSPHORUS 3.2 mg/dl (2.5-4.9)
[2017-02-28 06:07] LABS: BASO % 0.2 %; BASO ABS # 0.01 K/uL (0-0.2); EOS % 0.3 %; EOS ABS # 0.02 K/uL (0-0.5); HEMATOCRIT 34.2 % (42-52); HEMOGLOBIN 10.4 g/dL (14.0-18.0); IG# 0.04 K/uL (0.00-0.02); LYMPH % 7.7 %; LYMPH ABS # 0.49 K/uL (1.2-3.4); MEAN CELL VOLUME 94.2 fL (80-100); MEAN CORPUSCULAR HEMOGLOBIN 28.7 pg (25-34); MEAN CORPUSCULAR HGB CONC 30.4 g/dl (32-36); MEAN PLATELET VOLUME 10.2 fL (7.4-10.4); MONO % 9.1 %; MONO ABS # 0.58 K/uL (0.11-0.59); NEUT % 82.1 %; PLATELET COUNT 278 K/uL (130-400); RED CELL DISTRIBUTION WIDTH CV 18.2 % (11.5-14.5); RED CELL DISTRIBUTION WIDTH SD 62.8 fL (36.4-46.3); WHITE BLOOD COUNT 6.34 K/uL (4.8-10.8)
[2017-02-28] MEDS: METHADONE HCL 10 MG TAB PO SCH ×4 (06:34→22:47)
[2017-02-28] MEDS: DOCUSATE SODIUM 100 MG CAP PO SCH ×2 (07:32→21:00)
[2017-02-28] MEDS: METHYLPREDNISOLONE IV 20 MG in SYRINGE 0 ML IV SCH ×2 (07:32→21:03)
[2017-02-28] MEDS: ENOXAPARIN 80 MG/0.8 ML SYR SQ SCH ×2 (07:33→21:03)
[2017-02-28] MEDS: INSULIN GLARGINE SOLOSTAR 100 UNITS/ML 3 ML PEN SC SCH (07:35)
[2017-02-28] MEDS: INSULIN HUMAN REGULAR SC SCH ×4 (08:08→21:00)
[2017-02-28] MEDS: MAGNESIUM SULFATE 1GM / D5W 1 GM in PREMIXED IN D5W 100 ML IV SCH ×2 (09:54→11:03)
[2017-02-28] MEDS: METOPROLOL SUCC 25MG EXT REL TAB PO SCH (09:54)
--- NOTE | 2017-02-28 11:14 | Critical Care Progress Note ---
Critical Care Progress Note Date of Service Feb 28, 2017. ICU Day ICU Day Number: [address] Das Subjective Patient states he is feeling significantly more comfortable today. He was able to walk with Physical Therapy yesterday for the first time in weeks. He thinks that the sedative are continuing to wear off and his mentation is improving. Still having pain with swallowing but he has noticed his voice is less hoarse. He states he has been having intermittent left sided chest pain going on for the last month that is a burning like sensation that can be very intense at times. Objective GENERAL: Well-developed, well-nourished, NAD EYES: Normal conjunctiva. Sclera non-icteric. HENT: Normocephalic, atraumatic, Nasal Cannula currently at 6L NECK: supple, trachea midline LUNGS: Coarse breath sounds at the bases bilaterally, good inspiratory effort, no increased work of breathing HEART: Regular rate and rhythm, no murmurs, rubs, or gallops ABDOMEN: Soft, nontender, nondistended NEURO EXAM: GCS 15, Alert & Oriented Current SOFA Score SOFA Score Response (Comments) Value PaO2/FiO2 (mmHg) < 400 1 SaO2 / FIO2 < 67 4 Platelets (x10) > 150 0 Bilirubin (mg/dL) < 1.2 0 Parker Coma Score 15 0 Level of Hypotension No Hypotension 0 Creatinine (mg/dL) < 1.2 0 Total 5 Assessment & Plan Patient is a 56-year-old male with small cell lung cancer stage IIIB status post radiation therapy as well as chemotherapy with evidence of radiation pneumonitis that presented with bilateral pneumonia and clinically and ARDS. Patient was extubated on 02/22 with no acute complications although on 02/24 was experiencing dyspnea and tachycardia and required to be reintubated. Head CT and CTA chest were done on 02/24 in no acute abnormalities were found. Family meeting performed today and patient decided that he would like to be extubated without any trach placement and would become DO NOT RESUSCITATE and DO NOT INTUBATE afterwards. Neuro: - CAM ICU negative - Methadone 15mg q6h - Discontinue Propofol and Fentanyl - Ativan 2 mg BID PRN - MRI Brain 02/26 1. No acute intracranial abnormality. No acute infarction or abnormal enhancement. 2. 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 3. Small bilateral mastoid effusions. - Noncontrast head CT negative - Discontinue Scopolamine patch Cardiovascular: - Hemodynamically stable, Normal Sinus rhythm - Add Voltaren Gel to left side of chest for pain --> Appears MSK in nature ( reproducible) and related to Radiation site - Paroxysmal Afib: Episode of Afib overnight on 02/27 - Required 3 doses of metoprolol, Amiodarone drip, and cardioversion --> Converted to sinus rhythm and remained on Amio drip until this morning - Metoprolol Succinate 12.5mg daily Pulmonary: - Extubated on 02/27 - tolerating well, alert and oriented, no acute distress - Currently on 6L NC and resting comfortably in bed - Currently off of all antibiotics - Patient initially admitted for ARDS secondary to small cell lung cancer and radiation pneumonitis --> empiric antibiotic treatment with vancomycin, Bactrim , cefepime, and Levaquin - Bronchoscopy showed no acute changes --> patient was successfully extubated on 02/22 and tolerated BiPAP and high flow well - 02/24 - acute hypoxic respiratory failure required reintubation for acute hypoxic respiratory failure - CTA chest to rule out PE was negative - 20 mg IV Solu-Medrol q12 --> 3 week tapering dose - Currently -10 mL fluid balance (after receiving 20 mg of IV Lasix) Infectious disease: - Fluconazole 200mg - Candidiasis - Procalcitonin 0.16 on 02/21 - Lactate 1.2 on 02/24 Endocrine: - ISS + Basal Insulin - Solu-Medrol taper Renal - Total fluid balance -10 L - Stop fluids --> previously on Normosol at 80 ml/hr - Hyponatremia (134) improving - Osm - 286 - UOsm - 589 - Almas - 133 GI: - Regular ADA Diet - Protonix DVT prophylaxis: - Lovenox 80mg PO BID CODE STATUS - DO NOT RESUSCITATE/DO NOT INTUBATE status post extubation - POLST Form As Per Palliative Care: DNR, limited additional interventions, abx if life can be prolonged, trial period of artificial hydration/nutrition Resident Physician Supervision Note: Dr. Oliva was resident physician during care of patient. I separately evaluated patient and did history and exam. I discussed the case with the resident and generally agree with the findings and plan. Condition of low dose beta chelo given higher heart rate and higher blood pressure, and paroxysmal A. fib. Stable for downgraded out of ICU. Documented By: Shady Das DO Consults & Procedures Consultants: Pulmonary Procedures: CHEST ONE VIEW PORTABLE HISTORY: Intubated COMPARISON: Chest 02/19/2017. FINDINGS: The endotracheal tube terminates 3.7 from the butch. Nasogastric tube terminates below the diaphragm. The tip is not included on this study. Left jugular central venous catheter terminates at the proximal SVC. Bilateral airspace opacities have slightly improved. No pneumothorax. Small left pleural effusion and cardiomegaly persist. IMPRESSION: 1. Satisfactory support line placement. 2. Slight improvement in the bilateral airspace opacities. CHEST ONE VIEW PORTABLE CLINICAL HISTORY: ET PLACEMENT COMPARISON STUDY: Chest radiograph February 17, 2017 2:54 PM. FINDINGS: The tip of the endotracheal tube is 3.5 cm above the butch. A right internal jugular central line is unchanged in position. Tip of nasogastric tube is below the lower aspect of the image but at least within the proximal body of the stomach. Dense bilateral consolidation has significantly progressed since study performed this morning. There is no pneumothorax. IMPRESSION: 1. Satisfactory positioning of lines and tubes. 2. Progression of extensive bilateral opacities. This could reflect pneumonia or pulmonary edema. Data Medications: Current Inpatient Medications Medications (Trade) Dose Ordered Sig/Prince Route Start Time Stop Time Status Last Admin Dose Admin Acetaminophen (Tylenol Tab) 650 mg Q4H PRN PO 02/17/17 06:30 03/19/17 06:29 Al Hydrox/Mg Hydrox/Simethicone (Maalox Max Susp) 15 ml Q4H PRN PO 02/17/17 06:30 03/19/17 06:29 Magnesium Hydroxide (Milk Of Magnesia Susp) 30 ml Q12H PRN PO 02/17/17 06:30 03/19/17 06:29 Diazepam (Valium Tab) 2 mg BID PRN PO 02/17/17 06:30 03/19/17 06:29 Future hold 02/24/17 21:09 2 MG Ondansetron HCl (Zofran Tab) 8 mg Q8 PRN PO 02/17/17 06:30 03/19/17 06:29 Senna/Docusate Sodium (Senokot S Tab) 1 tab QDL PRN PO 02/17/17 06:30 03/19/17 06:29 Polyethylene (Miralax Powder Packet) 17 gm QDL PRN PO 02/17/17 06:30 03/19/17 06:29 Metoprolol Tartrate (Lopressor Iv) 5 mg Q4 PRN IV 02/17/17 16:15 03/19/17 16:14 02/27/17 03:40 5 MG Heparin Sodium (Porcine) (Heparin 10 Unit/ ml 5 ml Flush) 5 ml PRN PRN FLUSH 02/18/17 00:30 03/20/17 00:29 Albuterol/ Ipratropium (Duoneb) 3 ml Q4R PRN INH 02/22/17 17:00 03/24/17 16:59 02/23/17 14:09 3 ML Miscellaneous Information (Consult Glycemic Management Pharmacy) 1 ea UD PRN N/A 02/23/17 09:30 03/25/17 09:29 Insulin Glargine (Lantus Solostar Pen) SEE PROTOCOL BID SC 02/24/17 12:30 03/26/17 12:29 02/28/17 07:35 55 UNITS Ioversol (Optiray 320) 100 ml UD PRN IV 02/24/17 13:00 02/28/17 12:59 Methylprednisolone Sodium Succinate 20 mg/Syringe 0.32 ml @ 1.5 mls/min Q12H IV 02/25/17 20:00 03/19/17 15:14 02/28/17 07:32 1.5 MLS/MIN Glycopyrrolate (Robinul Inj) 0.2 mg 3XDQ4 PRN IV 02/25/17 11:00 03/27/17 10:59 Methadone HCl (Dolophine Tab) 15 mg Q6 PO 02/26/17 12:00 03/12/17 11:59 02/28/17 06:34 15 MG Gadobutrol (Gadavist) 12 mmol UD PRN IV 02/26/17 23:30 03/02/17 23:29 Fluconazole (Diflucan Tab) 200 mg DAILY@1600 PO 02/27/17 16:00 03/04/17 16:01 02/27/17 16:42 200 MG Enoxaparin Sodium (Lovenox Inj) 80 mg Q12H SQ 02/27/17 11:00 03/29/17 10:59 02/28/17 07:33 80 MG Docusate Sodium (coLACE CAP) 100 mg BID PO 02/27/17 11:00 03/29/17 10:59 Insulin Human Regular (novoLIN-R) SLIDING SCALE ACHS SC 02/27/17 11:00 03/29/17 10:59 02/28/17 08:08 4 UNITS Metoprolol Succinate (Toprol Xl Tab) 12.5 mg QAM PO 02/28/17 09:00 03/30/17 08:59 02/28/17 09:54 12.5 MG Magnesium Sulfate 1 gm/Prmx 100 ml @ 100 mls/hr Q1H IV 02/28/17 09:30 02/28/17 11:29 02/28/17 09:54 100 MLS/HR Vital Signs: Date Time Temp Pulse Resp B/P (MAP) Pulse Ox O2 Delivery O2 Flow Rate FiO2 02/28/17 10:00 100 20 118/90 (99) 93 Nasal Cannula 6.0 02/28/17 08:00 95 Nasal Cannula 6.0 02/28/17 08:00 36.7 79 20 138/74 (95) 95 Nasal Cannula 6.0 02/28/17 06:00 89 14 127/74 (91) 99 Nasal Cannula 6.0 02/28/17 04:00 Oxymask 6.0 02/28/17 04:00 36.8 76 12 131/73 (92) 98 Oxymask 6.0 02/28/17 02:00 74 16 120/68 (85) 88 Oxymask 6.0 02/28/17 00:01 36.7 79 14 114/76 (89) 96 Oxymask 6.0 02/27/17 23:59 Oxymask 6.0 02/27/17 22:00 90 16 130/76 (94) 92 Oxymask 6.0 02/27/17 20:00 93 Nasal Cannula 6.0 02/27/17 20:00 36.7 106 20 138/78 (98) 93 Nasal Cannula 6.0 02/27/17 18:00 86 14 137/77 (97) 94 Nasal Cannula 6.0 02/27/17 16:00 91 Nasal Cannula 6.0 02/27/17 16:00 36.8 80 20 144/81 (102) 91 Nasal Cannula 6.0 02/27/17 14:00 82 18 141/80 (100) 93 Nasal Cannula 6.0 02/27/17 12:00 Nasal Cannula 6.0 02/27/17 12:00 36.7 78 13 124/69 (87) 93 Nasal Cannula 6.0 Laboratory Results: Last 24 Hours Test 02/27/17 10:43 02/27/17 11:19 02/27/17 16:09 02/27/17 19:42 Osmolality 286 mOsm/kg Bedside Glucose 143 mg/dl 162 mg/dl 108 mg/dl Test 02/28/17 04:51 White Blood Count 6.34 K/uL Red Blood Count 3.63 M/uL Hemoglobin 10.4 g/dL Hematocrit 34.2 % Mean Corpuscular Volume 94.2 fL Mean Corpuscular Hemoglobin 28.7 pg Mean Corpuscular Hemoglobin Concent 30.4 g/dl Platelet Count 278 K/uL Mean Platelet Volume 10.2 fL Neutrophils (%) (Auto) 82.1 % Lymphocytes (%) (Auto) 7.7 % Monocytes (%) (Auto) 9.1 % Eosinophils (%) (Auto) 0.3 % Basophils (%) (Auto) 0.2 % Neutrophils # (Auto) 5.20 K/uL Lymphocytes # (Auto) 0.49 K/uL Monocytes # (Auto) 0.58 K/uL Eosinophils # (Auto) 0.02 K/uL Basophils # (Auto) 0.01 K/uL RDW Standard Deviation 62.8 fL RDW Coefficient of Variation 18.2 % Immature Granulocyte % (Auto) 0.6 % Immature Granulocyte # (Auto) 0.04 K/uL Sodium Level 134 mmol/L Potassium Level 4.0 mmol/L Chloride Level 97 mmol/L Carbon Dioxide Level 35 mmol/L Anion Gap 2.0 mmol/L Blood Urea Nitrogen 15 mg/dl Creatinine 0.55 mg/dl Est Creatinine Clear Calc Drug Dose 215.3 ml/min Estimated GFR () 136.9 Estimated GFR (Non- 118.1 BUN/Creatinine Ratio 28.1 Random Glucose 142 mg/dl Calcium Level 9.5 mg/dl Phosphorus Level 3.2 mg/dl Magnesium Level 1.8 mg/dl Resident Tracking Resident Involvement: Resident Care Provided Care Provided: Adult Hospital Medicine
--- NOTE | 2017-02-28 12:15 | Pharmacy Progress Note ---
Glycemic Control Progress Note Date of Service Feb 28, 2017. Scope Glycemic Pharmacist consulted for glycemic control to write orders per [facility] inpatient glycemic control protocol. Objective Accuchecks BSG (last 24hrs): Test 02/27/17 16:09 02/27/17 19:42 02/28/17 04:51 Bedside Glucose 162 mg/dl (70-99) 108 mg/dl (70-99) Random Glucose 142 mg/dl (70-99) HbA1c: 6.4% 01/31/17 Recent Pertinent Medications The patient is currently receiving: * Basal insulin: Lantus BID; 0 units if less than 110; 40 units if 110-140; 55 units if greater than 140 * Correctional Insulin: Regular Correction per scale Q 6 hours Goal Range: Low 120 mg/dL - High 160 mg/dL Correction Factor: 10 mg/dL/unit * Prandial insulin: Per carb ratio of 1 unit per 4 grams CHO consumed Outpatient Anti-Diabetic Meds Humulin 70/30 105 units SQ BID * Humulin-R SSI ACHS (~20 units w/ meals) * HbA1c: 6.4% (01/31/17) Assessment & Plan ASSESSMENT: 02/26/17 * Patient's BSGs had ranged 93-146 yesterday * This AM's BSG 186, likely secondary to titration of tube feeds to goal overnight. * Given rising BSGs will need to start scheduled Regular insulin to cover CHOs delivered in continuous tube feeds if the tube feeds are to continue. Currently these feeds are on hold in anticipation of possible extubation later today. * Solu-Medrol continues at this time and will likely be a prolonged taper for him. Solu-medrol dose reduced yesterday. * BSGs may improve quickly if successfully extubated and tube feeds stopped. Will need to monitor for rapidly dropping BSGs with lessening stressors and scale back accordingly. 02/27/17 * BSGs have ranged 94-155 over the last 24 hrs * Over the last 24 hrs: pt extubated, tube feeds stopped and diet ordered. Only consumed 12gm CHO's with lunch. * Solu-Medrol dose unchanged, continues at 20mg Q 12 hrs with no taper ordered yet * Fasting AM BSG 155 today, after receiving 65 units of Lantus yesterday AM and 0 units in the PM * Plan to continue BID Lantus however adjust the scale somewhat to allow for lower doses if pt's BSGs trending lower with poor PO intake and no tube feeds * Current Regular insulin correction and prandial coverage doses are reasonable based upon current stressors and daily insulin requirements 02/28/17 * Glycemic control acceptable; BSGs ranged 108-143 over last 24 hrs * Patient's PO intake remains poor however no episodes of hypoglycemia noted and fasting AM BSG near goal with 55 units of Lantus on board. Pt has received 55 units Lantus in the AM the last 2 days w/ similar BSGs. Will continue the same and eliminate HS scale. * Correctional and Prandial insulin doses performing well * Will step down to once daily Prednisone tomorrow, which will taper over the next 10 days. Once daily Lantus in the AM would be best suited to address insulin resistance that occurs during the day with QAM Prednisone. PLAN FOR INPATIENT GLYCEMIC CONTROL: * Lantus SQ 55 units Q AM * Continuing correction factor of 10 mg/dl/unit * Continuing carb ratio of 1 unit per 4 grams CHO consumed * Continuing goal range of Low 120 mg/dL - High 160 mg/dL * Reassess insulin doses with each step down in steroid dose * Please note that the plan above was derived based on current level of insulin resistance and hospital stress. These recommendations are appropriate for inpatient admission only. Plan of care upon discharge will need to be reassessed to avoid potential outpatient hypo/hyperglycemia. Thank you.
[2017-02-28] MEDS: DICLOFENAC SOD 1% GEL 100 GM TUBE EXT SCH ×2 (14:14→21:02)
[2017-02-28] MEDS: FLUCONAZOLE 100 MG TAB PO SCH (16:45)
--- NOTE | 2017-02-28 18:16 | Hematology/Oncology Prog Note ---
Hematology/Onc Progress Note Date of Service Feb 28, 2017. Subjective I saw him at bedside in the ICU around 7:30 a.m. in the morning, he was sitting comfortably, receiving nasal cannula supplemental oxygen at 6 liters/minute, he denies any increasing chest pain, last night was uneventful but previous night he had atrial fibrillation which required cardioversion, now hemodynamically he has remained stable, pulse ox is around 93-98% on 6 liters/minute, no fever, no leg edema, appetite has improved, eating better, no nausea or vomiting. I reviewed his blood workup done in the last few days, overall stable blood count which is in normal range, hemoglobin level is stable around 10.4, normal platelet count, normal kidney function test. He had MRI of the brain on 02/26/2017, it showed no evidence of brain metastatic disease. 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 Overall gradual improvement of his clinical condition noted, continue the current medical management. Vital Signs Vital Signs Past 12 Hours Date Time Temp Pulse Resp B/P (MAP) Pulse Ox O2 Delivery O2 Flow Rate FiO2 02/28/17 16:00 Nasal Cannula 6.0 02/28/17 15:55 36.4 91 16 135/77 (96) 98 Nasal Cannula 6.0 02/28/17 12:00 36.9 104 20 146/88 (107) 95 Nasal Cannula 6.0 02/28/17 12:00 95 Nasal Cannula 6.0 02/28/17 10:00 100 20 118/90 (99) 93 Nasal Cannula 6.0 02/28/17 08:00 95 Nasal Cannula 6.0 02/28/17 08:00 36.7 79 20 138/74 (95) 95 Nasal Cannula 6.0
--- NOTE | 2017-02-28 18:28 | Progress Note ---
Medicine Progress Note Date & Time of Visit: Feb 28, 2017 at 18:28. Subjective Patient reports feeling ok, states he was up and standing today and feels weak; states that he is unable to look down while walking because he cannot breathe when he does that. Still has a sore throat, otherwise no new complaints. Tolerating PO. Objective Last 8 Hrs Date Time Temp Pulse Resp B/P (MAP) Pulse Ox O2 Delivery O2 Flow Rate FiO2 02/28/17 16:00 Nasal Cannula 6.0 02/28/17 15:55 36.4 91 16 135/77 (96) 98 Nasal Cannula 6.0 02/28/17 12:00 36.9 104 20 146/88 (107) 95 Nasal Cannula 6.0 02/28/17 12:00 95 Nasal Cannula 6.0 Physical Exam: GENERAL: Patient is in no acute distress. HEENT: No acute trauma, normocephalic, mucous membranes moist, no nasal congestion, no scleral icterus. Conjunctivae clear NECK: No stridor, trachea is midline. LUNGS: Clear to auscultation bilaterally, no wheeze, no rhonchi, breath sounds equal. HEART: Without murmurs gallops or rubs, regular rate and rhythm. ABDOMEN: Soft, nontender, bowel sounds positive, no hepatosplenomegaly EXTREMITIES: No cyanosis or edema, moving all 4 limbs without pain NEUROLOGIC: Oriented x 3, no acute motor or sensory deficits, no focal weakness. Some slurring of speech noted SKIN: No rash, no jaundice, no diaphoresis. Laboratory Results: Last 24 Hours Test 02/27/17 19:42 02/28/17 04:51 02/28/17 11:09 02/28/17 15:59 Bedside Glucose 108 mg/dl 198 mg/dl 138 mg/dl White Blood Count 6.34 K/uL Red Blood Count 3.63 M/uL Hemoglobin 10.4 g/dL Hematocrit 34.2 % Mean Corpuscular Volume 94.2 fL Mean Corpuscular Hemoglobin 28.7 pg Mean Corpuscular Hemoglobin Concent 30.4 g/dl Platelet Count 278 K/uL Mean Platelet Volume 10.2 fL Neutrophils (%) (Auto) 82.1 % Lymphocytes (%) (Auto) 7.7 % Monocytes (%) (Auto) 9.1 % Eosinophils (%) (Auto) 0.3 % Basophils (%) (Auto) 0.2 % Neutrophils # (Auto) 5.20 K/uL Lymphocytes # (Auto) 0.49 K/uL Monocytes # (Auto) 0.58 K/uL Eosinophils # (Auto) 0.02 K/uL Basophils # (Auto) 0.01 K/uL RDW Standard Deviation 62.8 fL RDW Coefficient of Variation 18.2 % Immature Granulocyte % (Auto) 0.6 % Immature Granulocyte # (Auto) 0.04 K/uL Sodium Level 134 mmol/L Potassium Level 4.0 mmol/L Chloride Level 97 mmol/L Carbon Dioxide Level 35 mmol/L Anion Gap 2.0 mmol/L Blood Urea Nitrogen 15 mg/dl Creatinine 0.55 mg/dl Est Creatinine Clear Calc Drug Dose 215.3 ml/min Estimated GFR () 136.9 Estimated GFR (Non- 118.1 BUN/Creatinine Ratio 28.1 Random Glucose 142 mg/dl Calcium Level 9.5 mg/dl Phosphorus Level 3.2 mg/dl Magnesium Level 1.8 mg/dl Assessment & Plan EPISODE OF A FIB WITH RVR: -s/p emergent cardioversion in the ICU when rates were not improving after 3 doses IV metoprolol, amiodarone drip and hypotension -has been in NSR since then with an amiodarone drip that has been discontinued this morning -patient placed on PO metoprolol -patient to be transferred out of the ICU to [facility] today ACUTE HYPOXIC RESPIRATORY FAILURE: -required intubation and mechanical ventilation twice since admission, initially appeared as ARDS picture but resolved quickly and the reintubation etiology was apnea but of unknown cause; unlikely pneumonia -known underlying small cell lung CA, recent pulmonary embolism (doubtful as CT chest shows less clot burden now), suspected radiation pneumonitis. -Bronchoscopy performed 02/17, cultures only showed meño albicans; neg for AFB or non samy bacteria -was on broad-spectrum antibiotics with Cefepime, Levaquin and Vancomycin, and Bactrim; now off antibiotics -Steroids: intravenous methylprednisolone; on slow steroid taper, currently on IV solumedrol 20 mg BID -Pharmacist Per Diem consulted, management appreciated -S/P Extubation 02/22 and Reintubation on 02/24/17, Extubated again 02/26/17 -continued on IV fluconazole for meño in bronchial washing PROGRESSIVE SMALL CELL LUNG CA: -stage IIIb 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 per Onc -s/p several rounds of chemo and a course of radiation -Hem/Onc consulted, appreciate follow up -Palliative care consult, appreciated recs, POLST form completed, patient is DNR /DNI with limited additional interventions PREVIOUS RADIATION PNEUMONITIS: -presented during his last admission with probable radiation pneumonitis -As per pulmonology, patient to be on prednisone 60mg with a slow taper, patient was recently tapered down to 50mg, and his condition worsened -continued on Solumedrol 20mg IV BID with plans for slow taper SUBACUTE BILATERAL PE: -clot size decreased as of recent CT chest -was on heparin, switched back to Lovenox injections DM TYPE II: Insulin dependent -patient is reportedly very specific regarding his insulin therapy and diabetes control -was on insulin drip, has since been transitioned to subcutaneous insulin -Glycemic pharmacy consulted, appreciate management -HbA1c: ELECTROLYTE DERANGEMENTS: -Hyponatremia: etiology unclear, serum/urine osmoles pending for further workup ; probable SIADH based on labs/urine -relative hypophosphatemia, hypokalemia, hypomagnesemia - replete and recheck -patient is auto-diuresing with significant urine output, monitor lytes closely Consultants: Pulmonary Medicine Critical Care Medicine Medical Oncology . Procedures: cardiac monitoring endotracheal intubation mechanical ventilation right internal jugular central venous catheter arterial line IV medications . Current Inpatient Medications: Current Inpatient Medications Medications (Trade) Dose Ordered Sig/Prince Route Start Time Stop Time Status Last Admin Dose Admin Acetaminophen (Tylenol Tab) 650 mg Q4H PRN PO 02/17/17 06:30 03/19/17 06:29 Al Hydrox/Mg Hydrox/Simethicone (Maalox Max Susp) 15 ml Q4H PRN PO 02/17/17 06:30 03/19/17 06:29 Magnesium Hydroxide (Milk Of Magnesia Susp) 30 ml Q12H PRN PO 02/17/17 06:30 03/19/17 06:29 Diazepam (Valium Tab) 2 mg BID PRN PO 02/17/17 06:30 03/19/17 06:29 Future hold 02/24/17 21:09 2 MG Ondansetron HCl (Zofran Tab) 8 mg Q8 PRN PO 02/17/17 06:30 03/19/17 06:29 Senna/Docusate Sodium (Senokot S Tab) 1 tab QDL PRN PO 02/17/17 06:30 03/19/17 06:29 Polyethylene (Miralax Powder Packet) 17 gm QDL PRN PO 02/17/17 06:30 03/19/17 06:29 Metoprolol Tartrate (Lopressor Iv) 5 mg Q4 PRN IV 02/17/17 16:15 03/19/17 16:14 02/27/17 03:40 5 MG Heparin Sodium (Porcine) (Heparin 10 Unit/ ml 5 ml Flush) 5 ml PRN PRN FLUSH 02/18/17 00:30 03/20/17 00:29 Albuterol/ Ipratropium (Duoneb) 3 ml Q4R PRN INH 02/22/17 17:00 03/24/17 16:59 02/23/17 14:09 3 ML Miscellaneous Information (Consult Glycemic Management Pharmacy) 1 ea UD PRN N/A 02/23/17 09:30 03/25/17 09:29 Methylprednisolone Sodium Succinate 20 mg/Syringe 0.32 ml @ 1.5 mls/min Q12H IV 02/25/17 20:00 02/28/17 23:59 02/28/17 07:32 1.5 MLS/MIN Glycopyrrolate (Robinul Inj) 0.2 mg 3XDQ4 PRN IV 02/25/17 11:00 03/27/17 10:59 Methadone HCl (Dolophine Tab) 15 mg Q6 PO 02/26/17 12:00 03/12/17 11:59 02/28/17 16:45 15 MG Gadobutrol (Gadavist) 12 mmol UD PRN IV 02/26/17 23:30 03/02/17 23:29 Fluconazole (Diflucan Tab) 200 mg DAILY@1600 PO 02/27/17 16:00 03/04/17 16:01 02/28/17 16:45 200 MG Enoxaparin Sodium (Lovenox Inj) 80 mg Q12H SQ 02/27/17 11:00 03/29/17 10:59 02/28/17 07:33 80 MG Docusate Sodium (coLACE CAP) 100 mg BID PO 02/27/17 11:00 03/29/17 10:59 Insulin Human Regular (novoLIN-R) SLIDING SCALE ACHS SC 02/27/17 11:00 03/29/17 10:59 02/28/17 17:19 7 UNITS Metoprolol Succinate (Toprol Xl Tab) 12.5 mg QAM PO 02/28/17 09:00 03/30/17 08:59 02/28/17 09:54 12.5 MG Prednisone (PredniSONE TAB) 40 mg Taper DAILY@0800 PO 03/01/17 08:00 03/11/17 07:59 Diclofenac Sodium (Voltaren 1% Top Gel) 1 appln TID EXT 02/28/17 14:00 03/30/17 13:59 02/28/17 14:14 1 APPLN Insulin Glargine (Lantus Solostar Pen) 55 units QAM SC 03/01/17 09:00 03/31/17 08:59
[2017-03-01] MEDS: DIAZEPAM 2MG TAB PO PRN ×2 (03:10→11:19)
[2017-03-01] MEDS ORDERED: NITROGLYCERIN 0.4 MG SL PER TAB CHARGE SL PRN (03:30)
[2017-03-01] MEDS ORDERED: INSULIN HUMAN REGULAR SC ONE (03:45)
[2017-03-01 03:49] LABS: HEMATOCRIT 33.8 % (42-52); HEMOGLOBIN 10.4 g/dL (14.0-18.0); MEAN CELL VOLUME 92.6 fL (80-100); MEAN CORPUSCULAR HEMOGLOBIN 28.5 pg (25-34); MEAN CORPUSCULAR HGB CONC 30.8 g/dl (32-36); MEAN PLATELET VOLUME 9.6 fL (7.4-10.4); PLATELET COUNT 238 K/uL (130-400); RED CELL DISTRIBUTION WIDTH CV 18.3 % (11.5-14.5); RED CELL DISTRIBUTION WIDTH SD 62.5 fL (36.4-46.3)
[2017-03-01 04:00] VITALS: BP 125/71; PULSE 82; TEMP 36.6; O2SAT 98
[2017-03-01 04:08] LABS: BLOOD UREA NITROGEN 20 mg/dl (7-18); CALCIUM 9.7 mg/dl (8.5-10.1); CARBON DIOXIDE 35 mmol/L (21-32); CREATININE 0.66 mg/dl (0.60-1.40); GLUCOSE 207 mg/dl (70-99); POTASSIUM 4.5 mmol/L (3.5-5.1); SODIUM 131 mmol/L (136-145)
[2017-03-01 04:13] LABS: CKMB 1.9 ng/ml (0.5-3.6)
[2017-03-01] MEDS: METHADONE HCL 10 MG TAB PO SCH ×3 (06:23→17:21)
[2017-03-01] MEDS: DICLOFENAC SOD 1% GEL 100 GM TUBE EXT SCH ×2 (07:56→14:37)
[2017-03-01] MEDS: METOPROLOL SUCC 25MG EXT REL TAB PO SCH (07:57)
[2017-03-01] MEDS: DOCUSATE SODIUM 100 MG CAP PO SCH ×3 (07:58→21:42)
[2017-03-01] MEDS: INSULIN GLARGINE SOLOSTAR 100 UNITS/ML 3 ML PEN SC SCH (07:58)
[2017-03-01 08:00] VITALS: BP 125/76; PULSE 88; TEMP 36.8; O2SAT 95
[2017-03-01] MEDS: INSULIN HUMAN REGULAR SC SCH ×4 (08:17→21:57)
[2017-03-01] MEDS: ENOXAPARIN 80 MG/0.8 ML SYR SQ SCH ×2 (08:18→21:58)
--- NOTE | 2017-03-01 10:28 | Pharmacy Progress Note ---
Glycemic Control Progress Note Date of Service Mar 01, 2017. Scope Glycemic Pharmacist consulted for glycemic control to write orders per [facility] inpatient glycemic control protocol. Objective Accuchecks BSG (last 24hrs): Test 02/28/17 11:09 02/28/17 15:59 02/28/17 20:56 03/01/17 00:49 Bedside Glucose 198 mg/dl (70-99) 138 mg/dl (70-99) 103 mg/dl (70-99) 285 mg/dl (70-99) Test 03/01/17 02:51 03/01/17 03:40 Bedside Glucose 254 mg/dl (70-99) Random Glucose 207 mg/dl (70-99) HbA1c: 6.4% 01/31/17 Recent Pertinent Medications The patient is currently receiving: * Basal insulin: Lantus 55 units SQ Q AM * Correctional Insulin: Regular Correction per scale ACHS Goal Range: Low 120 mg/dL - High 160 mg/dL Correction Factor: 10 mg/dL/unit * Prandial insulin: Per carb ratio of 1 unit per 4 grams CHO consumed Outpatient Anti-Diabetic Meds Humulin 70/30 105 units SQ BID Humulin-R SSI ACHS (~20 units w/ meals) HbA1c: 6.4% (01/31/17) Assessment & Plan ASSESSMENT: 02/26/17 * Patient's BSGs had ranged 93-146 yesterday * This AM's BSG 186, likely secondary to titration of tube feeds to goal overnight. * Given rising BSGs will need to start scheduled Regular insulin to cover CHOs delivered in continuous tube feeds if the tube feeds are to continue. Currently these feeds are on hold in anticipation of possible extubation later today. * Solu-Medrol continues at this time and will likely be a prolonged taper for him. Solu-medrol dose reduced yesterday. * BSGs may improve quickly if successfully extubated and tube feeds stopped. Will need to monitor for rapidly dropping BSGs with lessening stressors and scale back accordingly. 02/27/17 * BSGs have ranged 94-155 over the last 24 hrs * Over the last 24 hrs: pt extubated, tube feeds stopped and diet ordered. Only consumed 12gm CHO's with lunch. * Solu-Medrol dose unchanged, continues at 20mg Q 12 hrs with no taper ordered yet * Fasting AM BSG 155 today, after receiving 65 units of Lantus yesterday AM and 0 units in the PM * Plan to continue BID Lantus however adjust the scale somewhat to allow for lower doses if pt's BSGs trending lower with poor PO intake and no tube feeds * Current Regular insulin correction and prandial coverage doses are reasonable based upon current stressors and daily insulin requirements 02/28/17 * Glycemic control acceptable; BSGs ranged 108-143 over last 24 hrs * Patient's PO intake remains poor however no episodes of hypoglycemia noted and fasting AM BSG near goal with 55 units of Lantus on board. Pt has received 55 units Lantus in the AM the last 2 days w/ similar BSGs. Will continue the same and eliminate HS scale. * Correctional and Prandial insulin doses performing well * Will step down to once daily Prednisone tomorrow, which will taper over the next 10 days. Once daily Lantus in the AM would be best suited to address insulin resistance that occurs during the day with QAM Prednisone. 03/01/17 * BSGs ranged 103-198 throughout the day yesterday, however BSG climbed unexpectedly to 285 a little after midnight. The BSG 2 hours prior had been 103. This large of a climb in a short period of time usually points to PO intake or acute stress. No acute stressful event evident based upon documentation. Patient was given 10 units of Regular insulin SQ. * Fasting BSG 136 this AM. This is with 55 units of Lantus on board and 10 units of Regular SQ given overnight. Will continue the same basal insulin dose for the time being as last night's BSG was a clear deviation from the pattern seen the last few days. * CF and CR have performed will - no changes planned * Steroid dose tapered to Prednisone 40mg PO Q AM today PLAN FOR INPATIENT GLYCEMIC CONTROL: * Continue Lantus SQ 55 units Q AM * Continuing correction factor of 10 mg/dl/unit * Continuing carb ratio of 1 unit per 4 grams CHO consumed * Continuing goal range of Low 120 mg/dL - High 160 mg/dL * Reassess insulin doses with each step down in steroid dose * Please note that the plan above was derived based on current level of insulin resistance and hospital stress. These recommendations are appropriate for inpatient admission only. Plan of care upon discharge will need to be reassessed to avoid potential outpatient hypo/hyperglycemia. Thank you.
[2017-03-01 10:49] LABS: CKMB 1.4 ng/ml (0.5-3.6)
[2017-03-01 12:00] VITALS: BP 130/78; PULSE 93; TEMP 36.6; O2SAT 95; O2SAT 96
--- NOTE | 2017-03-01 15:19 | Nephrology Progress Note ---
Nephrology Progress Note Date of Service: Mar 01, 2017. Subjective 56 yo male who was originally seen by me for polyuria and possible DI. polyuria resolved. continued to have sodium in the low 130s and was asked to see patient again for possible siadh. pt overall looks much better compared to earlier in the admission. now on facemask and comfortable. pt concerned about his blood sugars not being well controlled. had episode last night of chest pain and went away when blood sugars improved. Objective Date Time Temp Pulse Resp B/P (MAP) Pulse Ox O2 Delivery O2 Flow Rate FiO2 03/01/17 12:00 95 Nasal Cannula 4.0 03/01/17 12:00 36.6 93 17 130/78 (95) 96 Nasal Cannula 4.0 03/01/17 08:00 95 Nasal Cannula 4.0 03/01/17 08:00 36.8 88 15 125/76 (92) 95 Nasal Cannula 4.0 03/01/17 04:00 36.6 82 18 125/71 (89) 98 Room Air 03/01/17 04:00 98 Oxymask 6.0 02/28/17 23:59 Oxymask 6.0 02/28/17 23:59 36.6 99 20 132/68 (89) 96 Oxymask 6.0 02/28/17 20:00 Nasal Cannula 6.0 02/28/17 20:00 36.5 102 18 134/75 (94) 97 Nasal Cannula 6.0 02/28/17 16:00 Nasal Cannula 6.0 02/28/17 15:55 36.4 91 16 135/77 (96) 98 Nasal Cannula 6.0 Physical Exam: General-aaox3 Eyes-no scleral icterus ENT-mmm Neck-supple Lungs-clear Heart-regular Abdomen-bs+ s/nt/nd Extremities-no edema Neuro-nonfocal Current Inpatient Medications Medications (Trade) Dose Ordered Sig/Prince Route Start Time Stop Time Status Last Admin Dose Admin Acetaminophen (Tylenol Tab) 650 mg Q4H PRN PO 02/17/17 06:30 03/19/17 06:29 Al Hydrox/Mg Hydrox/Simethicone (Maalox Max Susp) 15 ml Q4H PRN PO 02/17/17 06:30 03/19/17 06:29 Magnesium Hydroxide (Milk Of Magnesia Susp) 30 ml Q12H PRN PO 02/17/17 06:30 03/19/17 06:29 Diazepam (Valium Tab) 2 mg BID PRN PO 02/17/17 06:30 03/19/17 06:29 Future hold 03/01/17 11:19 2 MG Ondansetron HCl (Zofran Tab) 8 mg Q8 PRN PO 02/17/17 06:30 03/19/17 06:29 Senna/Docusate Sodium (Senokot S Tab) 1 tab QDL PRN PO 02/17/17 06:30 03/19/17 06:29 Polyethylene (Miralax Powder Packet) 17 gm QDL PRN PO 02/17/17 06:30 03/19/17 06:29 Metoprolol Tartrate (Lopressor Iv) 5 mg Q4 PRN IV 02/17/17 16:15 03/19/17 16:14 02/27/17 03:40 5 MG Heparin Sodium (Porcine) (Heparin 10 Unit/ ml 5 ml Flush) 5 ml PRN PRN FLUSH 02/18/17 00:30 03/20/17 00:29 Albuterol/ Ipratropium (Duoneb) 3 ml Q4R PRN INH 02/22/17 17:00 03/24/17 16:59 02/23/17 14:09 3 ML Miscellaneous Information (Consult Glycemic Management Pharmacy) 1 ea UD PRN N/A 02/23/17 09:30 03/25/17 09:29 Glycopyrrolate (Robinul Inj) 0.2 mg 3XDQ4 PRN IV 02/25/17 11:00 03/27/17 10:59 Methadone HCl (Dolophine Tab) 15 mg Q6 PO 02/26/17 12:00 03/12/17 11:59 03/01/17 11:44 15 MG Gadobutrol (Gadavist) 12 mmol UD PRN IV 02/26/17 23:30 03/02/17 23:29 Fluconazole (Diflucan Tab) 200 mg DAILY@1600 PO 02/27/17 16:00 03/04/17 16:01 02/28/17 16:45 200 MG Enoxaparin Sodium (Lovenox Inj) 80 mg Q12H SQ 02/27/17 11:00 03/29/17 10:59 03/01/17 08:18 80 MG Docusate Sodium (coLACE CAP) 100 mg BID PO 02/27/17 11:00 03/29/17 10:59 Insulin Human Regular (novoLIN-R) SLIDING SCALE ACHS SC 02/27/17 11:00 03/29/17 10:59 03/01/17 12:07 8 UNITS Metoprolol Succinate (Toprol Xl Tab) 12.5 mg QAM PO 02/28/17 09:00 03/30/17 08:59 03/01/17 07:57 12.5 MG Prednisone (PredniSONE TAB) 40 mg Taper DAILY@0800 PO 03/01/17 08:00 03/11/17 07:59 03/01/17 08:17 40 MG Diclofenac Sodium (Voltaren 1% Top Gel) 1 appln TID EXT 02/28/17 14:00 03/30/17 13:59 03/01/17 14:37 1 APPLN Insulin Glargine (Lantus Solostar Pen) 55 units QAM SC 03/01/17 09:00 03/31/17 08:59 03/01/17 07:58 55 UNITS Nitroglycerin (Nitrostat Tab) 0.4 mg PRN PRN SL 03/01/17 03:30 03/31/17 03:29 Last 24 Hours Test 02/28/17 15:59 02/28/17 20:56 03/01/17 00:49 03/01/17 02:51 Bedside Glucose 138 mg/dl 103 mg/dl 285 mg/dl 254 mg/dl Test 03/01/17 03:25 03/01/17 03:40 03/01/17 09:25 03/01/17 09:55 Creatine Kinase MB Ratio White Blood Count 7.90 K/uL Red Blood Count 3.65 M/uL Hemoglobin 10.4 g/dL Hematocrit 33.8 % Mean Corpuscular Volume 92.6 fL Mean Corpuscular Hemoglobin 28.5 pg Mean Corpuscular Hemoglobin Concent 30.8 g/dl RDW Standard Deviation 62.5 fL RDW Coefficient of Variation 18.3 % Platelet Count 238 K/uL Mean Platelet Volume 9.6 fL Sodium Level 131 mmol/L Potassium Level 4.5 mmol/L Chloride Level 95 mmol/L Carbon Dioxide Level 35 mmol/L Anion Gap 1.0 mmol/L Blood Urea Nitrogen 20 mg/dl Creatinine 0.66 mg/dl Est Creatinine Clear Calc Drug Dose 178.0 ml/min Estimated GFR () 127.0 Estimated GFR (Non- 109.6 BUN/Creatinine Ratio 30.9 Random Glucose 207 mg/dl Calcium Level 9.7 mg/dl Magnesium Level 1.8 mg/dl Creatine Kinase MB 1.9 ng/ml 1.4 ng/ml Troponin I < 0.015 ng/ml < 0.015 ng/ml Test 03/01/17 13:16 03/01/17 15:00 Heparin Anti-Xa Act, Low Molec Wt 1.08 IU/ML Assessment & Plan hyponatremia-patient appears to be euvolemic with urine osm in the 500s. would like to place patient on a 1 liter fluid restriction for now. goal sodium of above 130 and would like to see if able to improve above 135. if needed, can consider diuretics and salt tablets if fluid restriction is not successful.
[2017-03-01 15:47] LABS: CALCIUM 9.9 mg/dl (8.5-10.1); CREATININE 0.89 mg/dl (0.60-1.40); POTASSIUM 4.4 mmol/L (3.5-5.1)
[2017-03-01 16:00] VITALS: BP 140/82; PULSE 91; TEMP 36.9; O2SAT 95; O2SAT 96
[2017-03-01] MEDS: FLUCONAZOLE 100 MG TAB PO SCH (16:34)
--- NOTE | 2017-03-01 16:53 | Progress Note ---
Post ICU Progress Note Date & Time Mar 01, 2017 at 16:45 Vital Signs Vital Signs Past 12 Hours Date Time Temp Pulse Resp B/P (MAP) Pulse Ox O2 Delivery O2 Flow Rate FiO2 03/01/17 16:00 95 Nasal Cannula 4.0 03/01/17 12:00 95 Nasal Cannula 4.0 03/01/17 12:00 36.6 93 17 130/78 (95) 96 Nasal Cannula 4.0 03/01/17 08:00 95 Nasal Cannula 4.0 03/01/17 08:00 36.8 88 15 125/76 (92) 95 Nasal Cannula 4.0 Notes Mental Status: alert / awake, participated in evaluation Nausea / Vomiting: adequately controlled Pain: adequately controlled Airway Patency, RR, SpO2: stable & adequate BP & HR: stable & adequate Patient admitted to the ICU 02/17/2017. Extubated and now oxygenating well on oxymask. He denies any SOB or current chest pain. He did have chest pain last night with no evidence of acute CAD. Hemodynamically stable. No acute complaints. Patient has expressed desire for palliation. POLST form is on the chart. Reviewed progress notes, labs, and inpatient medication list Continue current management Critical care medicine will sign off at this time. Please feel free to reconsult as needed. Thank you for including us in the care of this patient Consults & Procedures Consultants: Pulmonary Procedures: Endotracheal intubation 02/17/2017 Bronchoscopy 02/17/2017 Right radial arterial line 02/17/2017 Left internal jugular 3L CVC Right radial arterial line Extubation 02/22/2017 Endotracheal intubation 02/24/2017
--- NOTE | 2017-03-01 17:38 | Progress Note ---
Medicine Progress Note Date & Time of Visit: Mar 01, 2017 at 17:35. Subjective Patient reports not sleeping well last night; states he felt the same left sided burning chest pain that he has had for months and thinks it was flared because he was upset about not getting his insulin. States his BSG was elevated and that he manages his insulin at home very strictly. Also complains that he feels his right knee is unstable and asking if he could have a knee brace. No overnight events noted. Tolerating PO but still has a sore throat. Has been moving bowels. Objective Last 8 Hrs Date Time Temp Pulse Resp B/P (MAP) Pulse Ox O2 Delivery O2 Flow Rate FiO2 03/01/17 16:00 36.9 91 17 140/82 (101) 96 Nasal Cannula 4.0 03/01/17 16:00 95 Nasal Cannula 4.0 03/01/17 12:00 95 Nasal Cannula 4.0 03/01/17 12:00 36.6 93 17 130/78 (95) 96 Nasal Cannula 4.0 Physical Exam: GENERAL: Patient is in no acute distress. HEENT: No acute trauma, normocephalic, mucous membranes moist, no nasal congestion, no scleral icterus. Conjunctivae clear NECK: No stridor, trachea is midline. LUNGS: Clear to auscultation bilaterally, no wheeze, no rhonchi, breath sounds equal. HEART: Without murmurs gallops or rubs, regular rate and rhythm. ABDOMEN: Soft, nontender, bowel sounds positive, no hepatosplenomegaly EXTREMITIES: No cyanosis or edema, moving all 4 limbs without pain NEUROLOGIC: Oriented x 3, no acute motor or sensory deficits, no focal weakness. SKIN: No rash, no jaundice, no diaphoresis. Laboratory Results: Last 24 Hours Test 02/28/17 20:56 03/01/17 00:49 03/01/17 02:51 03/01/17 03:25 Bedside Glucose 103 mg/dl 285 mg/dl 254 mg/dl Creatine Kinase MB Ratio Test 03/01/17 03:40 03/01/17 09:25 03/01/17 09:55 03/01/17 13:16 White Blood Count 7.90 K/uL Red Blood Count 3.65 M/uL Hemoglobin 10.4 g/dL Hematocrit 33.8 % Mean Corpuscular Volume 92.6 fL Mean Corpuscular Hemoglobin 28.5 pg Mean Corpuscular Hemoglobin Concent 30.8 g/dl RDW Standard Deviation 62.5 fL RDW Coefficient of Variation 18.3 % Platelet Count 238 K/uL Mean Platelet Volume 9.6 fL Sodium Level 131 mmol/L Potassium Level 4.5 mmol/L Chloride Level 95 mmol/L Carbon Dioxide Level 35 mmol/L Anion Gap 1.0 mmol/L Blood Urea Nitrogen 20 mg/dl Creatinine 0.66 mg/dl Est Creatinine Clear Calc Drug Dose 178.0 ml/min Estimated GFR () 127.0 Estimated GFR (Non- 109.6 BUN/Creatinine Ratio 30.9 Random Glucose 207 mg/dl Calcium Level 9.7 mg/dl Magnesium Level 1.8 mg/dl Creatine Kinase MB 1.9 ng/ml 1.4 ng/ml Troponin I < 0.015 ng/ml < 0.015 ng/ml Creatine Kinase MB Ratio Heparin Anti-Xa Act, Low Molec Wt 1.08 IU/ML Test 03/01/17 15:14 Sodium Level 131 mmol/L Potassium Level 4.4 mmol/L Chloride Level 96 mmol/L Carbon Dioxide Level 32 mmol/L Anion Gap 3.0 mmol/L Blood Urea Nitrogen 27 mg/dl Creatinine 0.89 mg/dl Est Creatinine Clear Calc Drug Dose 132.0 ml/min Estimated GFR () 112.3 Estimated GFR (Non- 96.9 BUN/Creatinine Ratio 30.1 Random Glucose 178 mg/dl Calcium Level 9.9 mg/dl Assessment & Plan EPISODE OF A FIB WITH RVR: -s/p emergent cardioversion in the ICU when rates were not improving after 3 doses IV metoprolol, amiodarone drip and hypotension; amio drip remains off -has been in NSR since -patient placed on PO metoprolol -patient to be transferred out of the ICU to tele pending room availability ACUTE HYPOXIC RESPIRATORY FAILURE: -required intubation and mechanical ventilation twice since admission, initially appeared as ARDS picture but resolved quickly and the reintubation etiology was apnea but of unknown cause; unlikely pneumonia -known underlying small cell lung CA, recent pulmonary embolism (doubtful as CT chest shows less clot burden now), suspected radiation pneumonitis. -Bronchoscopy performed 02/17, cultures only showed meño albicans; neg for AFB or non samy bacteria -was on broad-spectrum antibiotics with Cefepime, Levaquin and Vancomycin, and Bactrim; now off antibiotics -Steroids: intravenous methylprednisolone; on slow steroid taper, now on PO prednisone -Baby Formula Worker consulted, management appreciated -S/P Extubation 02/22 and Reintubation on 02/24/17, Extubated again 02/26/17 -continued on IV fluconazole for meño in bronchial washing PROGRESSIVE SMALL CELL LUNG CA: -stage IIIb 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 per Onc -s/p several rounds of chemo and a course of radiation -Hem/Onc consulted, appreciate follow up -Palliative care consult, appreciated recs, POLST form completed, patient is DNR /DNI with limited additional interventions PREVIOUS RADIATION PNEUMONITIS: -presented during his last admission with probable radiation pneumonitis -As per pulmonology, patient to be on prednisone 60mg with a slow taper, patient was recently tapered down, and his condition worsened -continued on Solumedrol 20mg IV BID with plans for slow taper SUBACUTE BILATERAL PE: -clot size decreased as of recent CT chest -was on heparin, switched back to Lovenox injections DM TYPE II: Insulin dependent -patient is reportedly very specific regarding his insulin therapy and diabetes control -was on insulin drip, has since been transitioned to subcutaneous insulin -Glycemic pharmacy consulted, appreciate management -very well controlled per patient HYPONATREMIA: -Hyponatremia: probable SIADH based on labs/urine, euvolemic; Na 131 today down from 134 -serum Osm - 286 -urine Osm - 589 -urine Na - 133 -relative hypophosphatemia, hypokalemia, hypomagnesemia - replete and recheck -patient is auto-diuresing and had significant urine output, was initially evaluated for DI which proved to be negative -continue to monitor lytes closely -Nephrology contacted and have placed patient on a free water restriction of 1000ml Consultants: Pulmonary Medicine Critical Care Medicine Medical Oncology . Procedures: cardiac monitoring endotracheal intubation mechanical ventilation right internal jugular central venous catheter arterial line IV medications . Current Inpatient Medications: Current Inpatient Medications Medications (Trade) Dose Ordered Sig/Prince Route Start Time Stop Time Status Last Admin Dose Admin Acetaminophen (Tylenol Tab) 650 mg Q4H PRN PO 02/17/17 06:30 03/19/17 06:29 Al Hydrox/Mg Hydrox/Simethicone (Maalox Max Susp) 15 ml Q4H PRN PO 02/17/17 06:30 03/19/17 06:29 Magnesium Hydroxide (Milk Of Magnesia Susp) 30 ml Q12H PRN PO 02/17/17 06:30 03/19/17 06:29 Diazepam (Valium Tab) 2 mg BID PRN PO 02/17/17 06:30 03/19/17 06:29 Future hold 03/01/17 11:19 2 MG Ondansetron HCl (Zofran Tab) 8 mg Q8 PRN PO 02/17/17 06:30 03/19/17 06:29 Senna/Docusate Sodium (Senokot S Tab) 1 tab QDL PRN PO 02/17/17 06:30 03/19/17 06:29 Polyethylene (Miralax Powder Packet) 17 gm QDL PRN PO 02/17/17 06:30 03/19/17 06:29 Metoprolol Tartrate (Lopressor Iv) 5 mg Q4 PRN IV 02/17/17 16:15 03/19/17 16:14 02/27/17 03:40 5 MG Heparin Sodium (Porcine) (Heparin 10 Unit/ ml 5 ml Flush) 5 ml PRN PRN FLUSH 02/18/17 00:30 03/20/17 00:29 Albuterol/ Ipratropium (Duoneb) 3 ml Q4R PRN INH 02/22/17 17:00 03/24/17 16:59 02/23/17 14:09 3 ML Miscellaneous Information (Consult Glycemic Management Pharmacy) 1 ea UD PRN N/A 02/23/17 09:30 03/25/17 09:29 Glycopyrrolate (Robinul Inj) 0.2 mg 3XDQ4 PRN IV 02/25/17 11:00 03/27/17 10:59 Methadone HCl (Dolophine Tab) 15 mg Q6 PO 02/26/17 12:00 03/12/17 11:59 03/01/17 17:21 15 MG Gadobutrol (Gadavist) 12 mmol UD PRN IV 02/26/17 23:30 03/02/17 23:29 Fluconazole (Diflucan Tab) 200 mg DAILY@1600 PO 02/27/17 16:00 03/04/17 16:01 03/01/17 16:34 200 MG Enoxaparin Sodium (Lovenox Inj) 80 mg Q12H SQ 02/27/17 11:00 03/29/17 10:59 03/01/17 08:18 80 MG Docusate Sodium (coLACE CAP) 100 mg BID PO 02/27/17 11:00 03/29/17 10:59 Insulin Human Regular (novoLIN-R) SLIDING SCALE ACHS SC 02/27/17 11:00 03/29/17 10:59 03/01/17 17:23 14 UNITS Metoprolol Succinate (Toprol Xl Tab) 12.5 mg QAM PO 02/28/17 09:00 03/30/17 08:59 03/01/17 07:57 12.5 MG Prednisone (PredniSONE TAB) 40 mg Taper DAILY@0800 PO 03/01/17 08:00 03/11/17 07:59 03/01/17 08:17 40 MG Diclofenac Sodium (Voltaren 1% Top Gel) 1 appln TID EXT 02/28/17 14:00 03/30/17 13:59 03/01/17 14:37 1 APPLN Insulin Glargine (Lantus Solostar Pen) 55 units QAM SC 03/01/17 09:00 03/31/17 08:59 03/01/17 07:58 55 UNITS Nitroglycerin (Nitrostat Tab) 0.4 mg PRN PRN SL 03/01/17 03:30 03/31/17 03:29 Insulin Human Regular (novoLIN-R) SLIDING SCALE 0200 SC 03/02/17 02:00 04/01/17 01:59
[2017-03-01 20:00] VITALS: BP 116/78; PULSE 87; TEMP 36.4; O2SAT 97
[2017-03-01 23:59] VITALS: BP 121/60; PULSE 85; TEMP 36.8; O2SAT 96
[2017-03-02] MEDS: DIAZEPAM 2MG TAB PO PRN ×2 (00:11→20:35)
[2017-03-02] MEDS: METHADONE HCL 10 MG TAB PO SCH ×4 (00:11→17:44)
[2017-03-02] MEDS: DICLOFENAC SOD 1% GEL 100 GM TUBE EXT SCH ×4 (00:13→20:39)
[2017-03-02] MEDS: INSULIN HUMAN REGULAR SC SCH ×5 (02:00→20:38)
[2017-03-02 04:00] VITALS: BP 121/61; PULSE 77; TEMP 36.8; O2SAT 98
[2017-03-02 06:46] LABS: CALCIUM 10.2 mg/dl (8.5-10.1); CREATININE 0.85 mg/dl (0.60-1.40)
[2017-03-02 08:00] VITALS: BP 118/68; PULSE 93; TEMP 36.5; O2SAT 6
--- NOTE | 2017-03-02 08:09 | Nephrology Progress Note ---
Nephrology Progress Note Date of Service: Mar 02, 2017. Subjective 56 yo male with siadh with sodium in the low 130s, euvolemic. started on a one liter fluid restriction and sodium improved to 135. pt not enthusiastic about the one liter fluid restriction and would like to broaden the restriction. Objective Date Time Temp Pulse Resp B/P (MAP) Pulse Ox O2 Delivery O2 Flow Rate FiO2 03/02/17 04:00 36.8 77 19 121/61 (81) 98 Oxymask 4.0 03/02/17 04:00 Nasal Cannula 4.0 03/01/17 23:59 36.8 85 13 121/60 (80) 96 Nasal Cannula 4.0 03/01/17 23:59 Nasal Cannula 4.0 03/01/17 20:00 Nasal Cannula 03/01/17 20:00 36.4 87 19 116/78 (91) 97 Nasal Cannula 4.0 03/01/17 16:00 36.9 91 17 140/82 (101) 96 Nasal Cannula 4.0 03/01/17 16:00 95 Nasal Cannula 4.0 03/01/17 12:00 95 Nasal Cannula 4.0 03/01/17 12:00 36.6 93 17 130/78 (95) 96 Nasal Cannula 4.0 Physical Exam: General-aaox3 Eyes-no scleral icterus ENT-mmm Neck-supple Lungs-cta Heart-rrr Abdomen-bs+ s/nt/nd Extremities-no edema Neuro-nonfocal Current Inpatient Medications Medications (Trade) Dose Ordered Sig/Prince Route Start Time Stop Time Status Last Admin Dose Admin Acetaminophen (Tylenol Tab) 650 mg Q4H PRN PO 02/17/17 06:30 03/19/17 06:29 Al Hydrox/Mg Hydrox/Simethicone (Maalox Max Susp) 15 ml Q4H PRN PO 02/17/17 06:30 03/19/17 06:29 Magnesium Hydroxide (Milk Of Magnesia Susp) 30 ml Q12H PRN PO 02/17/17 06:30 03/19/17 06:29 Diazepam (Valium Tab) 2 mg BID PRN PO 02/17/17 06:30 03/19/17 06:29 Future hold 03/02/17 00:11 2 MG Ondansetron HCl (Zofran Tab) 8 mg Q8 PRN PO 02/17/17 06:30 03/19/17 06:29 Senna/Docusate Sodium (Senokot S Tab) 1 tab QDL PRN PO 02/17/17 06:30 03/19/17 06:29 Polyethylene (Miralax Powder Packet) 17 gm QDL PRN PO 02/17/17 06:30 03/19/17 06:29 Metoprolol Tartrate (Lopressor Iv) 5 mg Q4 PRN IV 02/17/17 16:15 03/19/17 16:14 02/27/17 03:40 5 MG Heparin Sodium (Porcine) (Heparin 10 Unit/ ml 5 ml Flush) 5 ml PRN PRN FLUSH 02/18/17 00:30 03/20/17 00:29 03/01/17 20:03 5 ML Albuterol/ Ipratropium (Duoneb) 3 ml Q4R PRN INH 02/22/17 17:00 03/24/17 16:59 02/23/17 14:09 3 ML Miscellaneous Information (Consult Glycemic Management Pharmacy) 1 ea UD PRN N/A 02/23/17 09:30 03/25/17 09:29 Glycopyrrolate (Robinul Inj) 0.2 mg 3XDQ4 PRN IV 02/25/17 11:00 03/27/17 10:59 Methadone HCl (Dolophine Tab) 15 mg Q6 PO 02/26/17 12:00 03/12/17 11:59 03/02/17 06:28 15 MG Gadobutrol (Gadavist) 12 mmol UD PRN IV 02/26/17 23:30 03/02/17 23:29 Fluconazole (Diflucan Tab) 200 mg DAILY@1600 PO 02/27/17 16:00 03/04/17 16:01 03/01/17 16:34 200 MG Enoxaparin Sodium (Lovenox Inj) 80 mg Q12H SQ 02/27/17 11:00 03/29/17 10:59 03/01/17 21:58 80 MG Docusate Sodium (coLACE CAP) 100 mg BID PO 02/27/17 11:00 03/29/17 10:59 Insulin Human Regular (novoLIN-R) SLIDING SCALE ACHS SC 02/27/17 11:00 03/29/17 10:59 03/01/17 21:57 1 UNITS Metoprolol Succinate (Toprol Xl Tab) 12.5 mg QAM PO 02/28/17 09:00 03/30/17 08:59 03/01/17 07:57 12.5 MG Prednisone (PredniSONE TAB) 40 mg Taper DAILY@0800 PO 03/01/17 08:00 03/11/17 07:59 03/01/17 08:17 40 MG Diclofenac Sodium (Voltaren 1% Top Gel) 1 appln TID EXT 02/28/17 14:00 03/30/17 13:59 03/02/17 00:13 1 APPLN Insulin Glargine (Lantus Solostar Pen) 55 units QAM SC 03/01/17 09:00 03/31/17 08:59 03/01/17 07:58 55 UNITS Nitroglycerin (Nitrostat Tab) 0.4 mg PRN PRN SL 03/01/17 03:30 03/31/17 03:29 Insulin Human Regular (novoLIN-R) SLIDING SCALE 0200 TN 03/02/17 02:00 04/01/17 01:59 Last 24 Hours Test 03/01/17 09:25 03/01/17 09:55 03/01/17 11:24 03/01/17 13:16 Creatine Kinase MB Ratio Creatine Kinase MB 1.4 ng/ml Troponin I < 0.015 ng/ml Bedside Glucose 133 mg/dl Heparin Anti-Xa Act, Low Molec Wt 1.08 IU/ML Test 03/01/17 15:14 03/01/17 16:29 03/01/17 20:37 03/01/17 21:46 Sodium Level 131 mmol/L Potassium Level 4.4 mmol/L Chloride Level 96 mmol/L Carbon Dioxide Level 32 mmol/L Anion Gap 3.0 mmol/L Blood Urea Nitrogen 27 mg/dl Creatinine 0.89 mg/dl Est Creatinine Clear Calc Drug Dose 132.0 ml/min Estimated GFR () 112.3 Estimated GFR (Non- 96.9 BUN/Creatinine Ratio 30.1 Random Glucose 178 mg/dl Calcium Level 9.9 mg/dl Bedside Glucose 143 mg/dl 163 mg/dl Heparin Anti-Xa Act, Low Molec Wt 0.43 IU/ML Test 03/02/17 02:08 03/02/17 04:14 03/02/17 05:42 Bedside Glucose 104 mg/dl 100 mg/dl Sodium Level 135 mmol/L Potassium Level 4.0 mmol/L Chloride Level 99 mmol/L Carbon Dioxide Level 32 mmol/L Anion Gap 4.0 mmol/L Blood Urea Nitrogen 27 mg/dl Creatinine 0.85 mg/dl Est Creatinine Clear Calc Drug Dose 137.8 ml/min Estimated GFR () 114.5 Estimated GFR (Non- 98.8 BUN/Creatinine Ratio 31.3 Random Glucose 105 mg/dl Calcium Level 10.2 mg/dl Thyroid Stimulating Hormone (TSH) 3.860 uIu/ml Assessment & Plan hyponatremia-pt with element of siadh. treating through fluid restriction alone. on a one liter restriction and sodium improved to 135. pt though would like to be able to drink more. will broaden fluid restriction to 1500cc today.
[2017-03-02] MEDS: DOCUSATE SODIUM 100 MG CAP PO SCH ×2 (09:00→20:31)
[2017-03-02] MEDS: METOPROLOL SUCC 25MG EXT REL TAB PO SCH (09:41)
[2017-03-02] MEDS: ENOXAPARIN 80 MG/0.8 ML SYR SQ SCH ×2 (09:42→20:32)
[2017-03-02] MEDS: INSULIN GLARGINE SOLOSTAR 100 UNITS/ML 3 ML PEN SC SCH (09:44)
--- NOTE | 2017-03-02 10:00 | Pharmacy Progress Note ---
Glycemic Control Progress Note Date of Service Mar 02, 2017. Scope Glycemic Pharmacist consulted for glycemic control to write orders per [facility] inpatient glycemic control protocol. Objective Accuchecks BSG (last 24hrs): Test 03/01/17 11:24 03/01/17 15:14 03/01/17 16:29 03/01/17 21:46 Bedside Glucose 133 mg/dl (70-99) 143 mg/dl (70-99) 163 mg/dl (70-99) Random Glucose 178 mg/dl (70-99) Test 03/02/17 02:08 03/02/17 04:14 03/02/17 05:42 Bedside Glucose 104 mg/dl (70-99) 100 mg/dl (70-99) Random Glucose 105 mg/dl (70-99) HbA1c: 6.4% 01/31/17 Recent Pertinent Medications The patient is currently receiving: * Basal insulin: Lantus 55 units SQ Q AM * Correctional Insulin: Regular Correction per scale ACHS Goal Range: Low 120 mg/dL - High 160 mg/dL Correction Factor: 10 mg/dL/unit * Prandial insulin: Per carb ratio of 1 unit per 4 grams CHO consumed Outpatient Anti-Diabetic Meds Humulin 70/30 105 units SQ BID Humulin-R SSI ACHS (~20 units w/ meals) Assessment & Plan ASSESSMENT: 02/26/17 * Patient's BSGs had ranged 93-146 yesterday * This AM's BSG 186, likely secondary to titration of tube feeds to goal overnight. * Given rising BSGs will need to start scheduled Regular insulin to cover CHOs delivered in continuous tube feeds if the tube feeds are to continue. Currently these feeds are on hold in anticipation of possible extubation later today. * Solu-Medrol continues at this time and will likely be a prolonged taper for him. Solu-medrol dose reduced yesterday. * BSGs may improve quickly if successfully extubated and tube feeds stopped. Will need to monitor for rapidly dropping BSGs with lessening stressors and scale back accordingly. 02/27/17 * BSGs have ranged 94-155 over the last 24 hrs * Over the last 24 hrs: pt extubated, tube feeds stopped and diet ordered. Only consumed 12gm CHO's with lunch. * Solu-Medrol dose unchanged, continues at 20mg Q 12 hrs with no taper ordered yet * Fasting AM BSG 155 today, after receiving 65 units of Lantus yesterday AM and 0 units in the PM * Plan to continue BID Lantus however adjust the scale somewhat to allow for lower doses if pt's BSGs trending lower with poor PO intake and no tube feeds * Current Regular insulin correction and prandial coverage doses are reasonable based upon current stressors and daily insulin requirements 02/28/17 * Glycemic control acceptable; BSGs ranged 108-143 over last 24 hrs * Patient's PO intake remains poor however no episodes of hypoglycemia noted and fasting AM BSG near goal with 55 units of Lantus on board. Pt has received 55 units Lantus in the AM the last 2 days w/ similar BSGs. Will continue the same and eliminate HS scale. * Correctional and Prandial insulin doses performing well * Will step down to once daily Prednisone tomorrow, which will taper over the next 10 days. Once daily Lantus in the AM would be best suited to address insulin resistance that occurs during the day with QAM Prednisone. 03/01/17 * BSGs ranged 103-198 throughout the day yesterday, however BSG climbed unexpectedly to 285 a little after midnight. The BSG 2 hours prior had been 103. This large of a climb in a short period of time usually points to PO intake or acute stress. No acute stressful event evident based upon documentation. Patient was given 10 units of Regular insulin SQ. * Fasting BSG 136 this AM. This is with 55 units of Lantus on board and 10 units of Regular SQ given overnight. Will continue the same basal insulin dose for the time being as last night's BSG was a clear deviation from the pattern seen the last few days. * CF and CR have performed will - no changes planned * Steroid dose tapered to Prednisone 40mg PO Q AM today 03/02/17 * BSGs ranged 100-163 over the last 24 hrs * Patient appears to be well controlled on the current insulin regimen * Fasting 104 this AM w/ 55 units Lantus on board - he has received this dose x 3 days with fasting result at or near goal * Post-prandial BSGs well controlled with current CR and diet has improved * Prednisone 40mg again given today PLAN FOR INPATIENT GLYCEMIC CONTROL: * Continue Lantus SQ 55 units Q AM * Continuing correction factor of 10 mg/dl/unit * Continuing carb ratio of 1 unit per 4 grams CHO consumed * Continuing goal range of Low 120 mg/dL - High 160 mg/dL * Reassess insulin doses with each step down in steroid dose * Please note that the plan above was derived based on current level of insulin resistance and hospital stress. These recommendations are appropriate for inpatient admission only. Plan of care upon discharge will need to be reassessed to avoid potential outpatient hypo/hyperglycemia. Thank you.
[2017-03-02 12:00] VITALS: BP 130/93; PULSE 90; TEMP 36.5
--- NOTE | 2017-03-02 13:09 | Progress Note ---
Medicine Progress Note Date & Time of Visit: Mar 02, 2017 at 13:07. Subjective Patient reports hesitancy in moving out of the ICU and in planning for rehab as he had a bad experience previously when he left the hospital the last time and returned rather suddenly and quite ill. Has some left sided chest pain and also has some difficulty looking up as he said he gets dizziness and some SOB when he extends his neck. Otherwise no new complaints. No overnight events noted. Objective Last 8 Hrs Date Time Temp Pulse Resp B/P (MAP) Pulse Ox O2 Delivery O2 Flow Rate FiO2 03/02/17 12:00 Nasal Cannula 4.0 03/02/17 08:00 36.5 93 19 118/68 (85) 6 Nasal Cannula 4.0 03/02/17 08:00 Nasal Cannula 4.0 Physical Exam: GENERAL: Patient is in no acute distress. HEENT: No acute trauma, normocephalic, mucous membranes moist, no nasal congestion, no scleral icterus. Conjunctivae clear NECK: No stridor, trachea is midline. LUNGS: Clear to auscultation bilaterally, no wheeze, no rhonchi, breath sounds equal. HEART: Without murmurs gallops or rubs, regular rate and rhythm. ABDOMEN: Soft, nontender, bowel sounds positive, no hepatosplenomegaly EXTREMITIES: No cyanosis or edema, moving all 4 limbs without pain NEUROLOGIC: Oriented x 3, no acute motor or sensory deficits, no focal weakness. SKIN: No rash, no jaundice, no diaphoresis. Laboratory Results: Last 24 Hours Test 03/01/17 13:16 03/01/17 15:14 03/01/17 16:29 03/01/17 20:37 Heparin Anti-Xa Act, Low Molec Wt 1.08 IU/ML 0.43 IU/ML Sodium Level 131 mmol/L Potassium Level 4.4 mmol/L Chloride Level 96 mmol/L Carbon Dioxide Level 32 mmol/L Anion Gap 3.0 mmol/L Blood Urea Nitrogen 27 mg/dl Creatinine 0.89 mg/dl Est Creatinine Clear Calc Drug Dose 132.0 ml/min Estimated GFR () 112.3 Estimated GFR (Non- 96.9 BUN/Creatinine Ratio 30.1 Random Glucose 178 mg/dl Calcium Level 9.9 mg/dl Bedside Glucose 143 mg/dl Test 03/01/17 21:46 03/02/17 02:08 03/02/17 04:14 03/02/17 05:42 Bedside Glucose 163 mg/dl 104 mg/dl 100 mg/dl Sodium Level 135 mmol/L Potassium Level 4.0 mmol/L Chloride Level 99 mmol/L Carbon Dioxide Level 32 mmol/L Anion Gap 4.0 mmol/L Blood Urea Nitrogen 27 mg/dl Creatinine 0.85 mg/dl Est Creatinine Clear Calc Drug Dose 137.8 ml/min Estimated GFR () 114.5 Estimated GFR (Non- 98.8 BUN/Creatinine Ratio 31.3 Random Glucose 105 mg/dl Calcium Level 10.2 mg/dl Thyroid Stimulating Hormone (TSH) 3.860 uIu/ml Assessment & Plan EPISODE OF A FIB WITH RVR: -s/p emergent cardioversion in the ICU when rates were not improving after 3 doses IV metoprolol, amiodarone drip and hypotension; amio drip remains off -has been in NSR since -patient placed on PO metoprolol -patient to be transferred out of the ICU to tele pending room availability ACUTE HYPOXIC RESPIRATORY FAILURE: -required intubation and mechanical ventilation twice since admission, initially appeared as ARDS picture but resolved quickly and the reintubation etiology was apnea but of unknown cause; unlikely pneumonia -known underlying small cell lung CA, recent pulmonary embolism (doubtful as CT chest shows less clot burden now), suspected radiation pneumonitis. -Bronchoscopy performed 02/17, cultures only showed meño albicans; neg for AFB or non samy bacteria -was on broad-spectrum antibiotics with Cefepime, Levaquin and Vancomycin, and Bactrim; now off antibiotics -Steroids: intravenous methylprednisolone; on slow steroid taper, now on PO prednisone -Recruitment Consultant consulted, management appreciated -S/P Extubation 02/22 and Reintubation on 02/24/17, Extubated again 02/26/17 -continued on IV fluconazole for meño in bronchial washing PROGRESSIVE SMALL CELL LUNG CA: -stage IIIb 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 per Onc -s/p several rounds of chemo and a course of radiation -Hem/Onc consulted, appreciate follow up -Palliative care consult, appreciated recs, POLST form completed, patient is DNR /DNI with limited additional interventions PREVIOUS RADIATION PNEUMONITIS: -presented during his last admission with probable radiation pneumonitis -As per pulmonology, patient to be on prednisone 60mg with a slow taper, patient was recently tapered down, and his condition worsened -continued on Solumedrol 20mg IV BID with plans for slow taper SUBACUTE BILATERAL PE: -clot size decreased as of recent CT chest -was on heparin, switched back to Lovenox injections DM TYPE II: Insulin dependent -patient is reportedly very specific regarding his insulin therapy and diabetes control -was on insulin drip, has since been transitioned to subcutaneous insulin -Glycemic pharmacy consulted, appreciate management -very well controlled per patient HYPONATREMIA: -Hyponatremia: probable SIADH based on labs/urine, euvolemic; Na 131 today down from 134 -serum Osm - 286 -urine Osm - 589 -urine Na - 133 -relative hypophosphatemia, hypokalemia, hypomagnesemia - replete and recheck -patient is auto-diuresing and had significant urine output, was initially evaluated for DI which proved to be negative -continue to monitor lytes closely -Nephrology contacted and have placed patient on a free water restriction of 1000ml Consultants: Pulmonary Medicine Critical Care Medicine Medical Oncology . Procedures: cardiac monitoring endotracheal intubation mechanical ventilation right internal jugular central venous catheter arterial line IV medications . Current Inpatient Medications: Current Inpatient Medications Medications (Trade) Dose Ordered Sig/Prince Route Start Time Stop Time Status Last Admin Dose Admin Acetaminophen (Tylenol Tab) 650 mg Q4H PRN PO 02/17/17 06:30 03/19/17 06:29 Al Hydrox/Mg Hydrox/Simethicone (Maalox Max Susp) 15 ml Q4H PRN PO 02/17/17 06:30 03/19/17 06:29 Magnesium Hydroxide (Milk Of Magnesia Susp) 30 ml Q12H PRN PO 02/17/17 06:30 03/19/17 06:29 Diazepam (Valium Tab) 2 mg BID PRN PO 02/17/17 06:30 03/19/17 06:29 Future hold 03/02/17 00:11 2 MG Ondansetron HCl (Zofran Tab) 8 mg Q8 PRN PO 02/17/17 06:30 03/19/17 06:29 Senna/Docusate Sodium (Senokot S Tab) 1 tab QDL PRN PO 02/17/17 06:30 03/19/17 06:29 Polyethylene (Miralax Powder Packet) 17 gm QDL PRN PO 02/17/17 06:30 03/19/17 06:29 Metoprolol Tartrate (Lopressor Iv) 5 mg Q4 PRN IV 02/17/17 16:15 03/19/17 16:14 02/27/17 03:40 5 MG Heparin Sodium (Porcine) (Heparin 10 Unit/ ml 5 ml Flush) 5 ml PRN PRN FLUSH 02/18/17 00:30 03/20/17 00:29 03/01/17 20:03 5 ML Albuterol/ Ipratropium (Duoneb) 3 ml Q4R PRN INH 02/22/17 17:00 03/24/17 16:59 02/23/17 14:09 3 ML Miscellaneous Information (Consult Glycemic Management Pharmacy) 1 ea UD PRN N/A 02/23/17 09:30 03/25/17 09:29 Glycopyrrolate (Robinul Inj) 0.2 mg 3XDQ4 PRN IV 02/25/17 11:00 03/27/17 10:59 Methadone HCl (Dolophine Tab) 15 mg Q6 PO 02/26/17 12:00 03/12/17 11:59 03/02/17 12:54 15 MG Gadobutrol (Gadavist) 12 mmol UD PRN IV 02/26/17 23:30 03/02/17 23:29 Fluconazole (Diflucan Tab) 200 mg DAILY@1600 PO 02/27/17 16:00 03/04/17 16:01 03/01/17 16:34 200 MG Enoxaparin Sodium (Lovenox Inj) 80 mg Q12H SQ 02/27/17 11:00 03/29/17 10:59 03/02/17 09:42 80 MG Docusate Sodium (coLACE CAP) 100 mg BID PO 02/27/17 11:00 03/29/17 10:59 Insulin Human Regular (novoLIN-R) SLIDING SCALE ACHS SC 02/27/17 11:00 03/29/17 10:59 03/02/17 13:00 4 UNITS Metoprolol Succinate (Toprol Xl Tab) 12.5 mg QAM PO 02/28/17 09:00 03/30/17 08:59 03/02/17 09:41 12.5 MG Prednisone (PredniSONE TAB) 40 mg Taper DAILY@0800 PO 03/01/17 08:00 03/11/17 07:59 03/02/17 09:41 40 MG Diclofenac Sodium (Voltaren 1% Top Gel) 1 appln TID EXT 02/28/17 14:00 03/30/17 13:59 03/02/17 13:01 1 APPLN Insulin Glargine (Lantus Solostar Pen) 55 units QAM SC 03/01/17 09:00 03/31/17 08:59 03/02/17 09:44 55 UNITS Nitroglycerin (Nitrostat Tab) 0.4 mg PRN PRN SL 03/01/17 03:30 03/31/17 03:29 Insulin Human Regular (novoLIN-R) SLIDING SCALE 0200 SC 03/02/17 02:00 04/01/17 01:59
[2017-03-02 15:57] VITALS: BP 127/75; PULSE 97; TEMP 36.7; O2SAT 98
[2017-03-02] MEDS: FLUCONAZOLE 100 MG TAB PO SCH (16:36)
[2017-03-02 20:57] VITALS: BP 142/91; PULSE 85; TEMP 36.4; O2SAT 94
[2017-03-02 23:38] VITALS: BP 114/70; PULSE 84; TEMP 36.8; O2SAT 98
[2017-03-03] VITALS (9 sets, daily range): BP systolic 100–115; BP diastolic 57–71; PULSE 75–102; TEMP 36.5–36.8; O2SAT 92–99
[2017-03-03] MEDS: METHADONE HCL 10 MG TAB PO SCH ×5 (00:28→23:43)
[2017-03-03] MEDS: INSULIN HUMAN REGULAR SC SCH ×5 (02:00→21:00)
[2017-03-03 07:44] LABS: HEMATOCRIT 34.1 % (42-52); HEMOGLOBIN 10.4 g/dL (14.0-18.0); MEAN CELL VOLUME 92.9 fL (80-100); MEAN CORPUSCULAR HEMOGLOBIN 28.3 pg (25-34); MEAN CORPUSCULAR HGB CONC 30.5 g/dl (32-36); MEAN PLATELET VOLUME 10.3 fL (7.4-10.4); PLATELET COUNT 245 K/uL (130-400); RED CELL DISTRIBUTION WIDTH CV 18.3 % (11.5-14.5); WHITE BLOOD COUNT 6.68 K/uL (4.8-10.8)
[2017-03-03] MEDS: DOCUSATE SODIUM 100 MG CAP PO SCH ×2 (08:00→20:00)
[2017-03-03 08:08] LABS: CALCIUM 9.5 mg/dl (8.5-10.1); CREATININE 0.78 mg/dl (0.60-1.40); POTASSIUM 3.6 mmol/L (3.5-5.1)
[2017-03-03] MEDS: DICLOFENAC SOD 1% GEL 100 GM TUBE EXT SCH ×3 (08:15→21:07)
[2017-03-03] MEDS: DIAZEPAM 2MG TAB PO PRN ×2 (08:15→23:43)
[2017-03-03] MEDS: METOPROLOL SUCC 25MG EXT REL TAB PO SCH (08:16)
[2017-03-03] MEDS: ENOXAPARIN 80 MG/0.8 ML SYR SQ SCH ×2 (08:19→21:05)
[2017-03-03] MEDS: INSULIN GLARGINE SOLOSTAR 100 UNITS/ML 3 ML PEN SC SCH (08:21)
[2017-03-03] MEDS ORDERED: POTASSIUM CHLORIDE 10 MEQ TABCR PO STA (08:59)
[2017-03-03] MEDS: MAGNESIUM OXIDE 400 MG TAB PO SCH (12:25)
[2017-03-03] MEDS: FLUCONAZOLE 100 MG TAB PO SCH (16:10)
--- NOTE | 2017-03-03 19:44 | Progress Note ---
Medicine Progress Note Date & Time of Visit: Mar 03, 2017 at 19:44. Subjective Patient reports feeling ok, denies any new complaints other than some soreness in his neck and inability to look up without getting dizzy. Tolerating PO. No overnight events noted. Has been out of bed with assistance with limited activity. Objective Last 8 Hrs Date Time Temp Pulse Resp B/P (MAP) Pulse Ox O2 Delivery O2 Flow Rate FiO2 03/03/17 19:39 36.5 88 20 115/70 (85) 93 Nasal Cannula 3.0 03/03/17 16:00 92 Nasal Cannula 4.0 Humidified Oxygen 03/03/17 14:37 36.5 92 18 107/57 (74) 92 Physical Exam: GENERAL: Patient is in no acute distress. HEENT: No acute trauma, normocephalic, mucous membranes moist, no nasal congestion, no scleral icterus. Conjunctivae clear NECK: No stridor, trachea is midline. LUNGS: Clear to auscultation bilaterally, no wheeze, no rhonchi, breath sounds equal. HEART: Without murmurs gallops or rubs, regular rate and rhythm. ABDOMEN: Soft, nontender, bowel sounds positive, no hepatosplenomegaly EXTREMITIES: No cyanosis or edema, moving all 4 limbs without pain NEUROLOGIC: Oriented x 3, no acute motor or sensory deficits, no focal weakness. SKIN: No rash, no jaundice, no diaphoresis. Laboratory Results: Last 24 Hours Test 03/02/17 20:37 03/03/17 02:02 03/03/17 07:10 03/03/17 07:55 Bedside Glucose 145 mg/dl 149 mg/dl 110 mg/dl White Blood Count 6.68 K/uL Red Blood Count 3.67 M/uL Hemoglobin 10.4 g/dL Hematocrit 34.1 % Mean Corpuscular Volume 92.9 fL Mean Corpuscular Hemoglobin 28.3 pg Mean Corpuscular Hemoglobin Concent 30.5 g/dl RDW Standard Deviation 63.0 fL RDW Coefficient of Variation 18.3 % Platelet Count 245 K/uL Mean Platelet Volume 10.3 fL Sodium Level 138 mmol/L Potassium Level 3.6 mmol/L Chloride Level 101 mmol/L Carbon Dioxide Level 33 mmol/L Anion Gap 4.0 mmol/L Blood Urea Nitrogen 27 mg/dl Creatinine 0.78 mg/dl Est Creatinine Clear Calc Drug Dose 150.2 ml/min Estimated GFR () 118.6 Estimated GFR (Non- 102.3 BUN/Creatinine Ratio 34.6 Random Glucose 101 mg/dl Calcium Level 9.5 mg/dl Magnesium Level 1.8 mg/dl Test 03/03/17 11:28 03/03/17 16:10 Bedside Glucose 138 mg/dl 209 mg/dl Assessment & Plan EPISODE OF A FIB WITH RVR: -s/p emergent cardioversion in the ICU when rates were not improving after 3 doses IV metoprolol, amiodarone drip and hypotension; has since been off amio -remained in NSR since then -continued on PO metoprolol -patient transferred to medical ACUTE HYPOXIC RESPIRATORY FAILURE: -required intubation and mechanical ventilation twice since admission, initially appeared as ARDS picture but resolved quickly and the reintubation etiology was apnea but of unknown cause; unlikely pneumonia -known underlying small cell lung CA, recent pulmonary embolism (doubtful as CT chest shows less clot burden now), suspected radiation pneumonitis. -Bronchoscopy performed 02/17, cultures only showed meño albicans; neg for AFB or non samy bacteria -was on broad-spectrum antibiotics with Cefepime, Levaquin and Vancomycin, and Bactrim; now off antibiotics -Steroids: intravenous methylprednisolone; on slow steroid taper, now on PO prednisone -Template Inspector consulted, management appreciated -S/P Extubation 02/22 and Reintubation on 02/24/17, Extubated again 02/26/17 -continued on fluconazole for meño in bronchial washing PROGRESSIVE SMALL CELL LUNG CA: -stage IIIb 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 per Onc -s/p several rounds of chemo and a course of radiation -Hem/Onc consulted, appreciate follow up -Palliative care consult, appreciated recs, POLST form completed, patient is DNR /DNI with limited additional interventions -MRI brain negative for mets PREVIOUS RADIATION PNEUMONITIS: -presented during his last admission with probable radiation pneumonitis -patient on prednisone 40mg with a slow taper SUBACUTE BILATERAL PE: -clot size decreased as of recent CT chest -was on heparin, switched back to Lovenox injections DM TYPE II: Insulin dependent -patient is reportedly very specific regarding his insulin therapy and diabetes control -was on insulin drip, has since been transitioned to subcutaneous insulin -Glycemic pharmacy consulted, appreciate management -very well controlled per patient HYPONATREMIA: resolved -Hyponatremia: probable SIADH based on labs/urine, euvolemic -serum Osm - 286 -urine Osm - 589 -urine Na - 133 -relative hypophosphatemia, hypokalemia, hypomagnesemia - replete and recheck, stable -patient is auto-diuresing and had significant urine output, was initially evaluated for DI which proved to be negative -continue to monitor lytes closely -Nephrology contacted and have placed patient on a free water restriction of 1500ml Consultants: Pulmonary Medicine Critical Care Medicine Medical Oncology . Procedures: cardiac monitoring endotracheal intubation mechanical ventilation right internal jugular central venous catheter arterial line IV medications . Current Inpatient Medications: Current Inpatient Medications Medications (Trade) Dose Ordered Sig/Prince Route Start Time Stop Time Status Last Admin Dose Admin Acetaminophen (Tylenol Tab) 650 mg Q4H PRN PO 02/17/17 06:30 03/19/17 06:29 Al Hydrox/Mg Hydrox/Simethicone (Maalox Max Susp) 15 ml Q4H PRN PO 02/17/17 06:30 03/19/17 06:29 Magnesium Hydroxide (Milk Of Magnesia Susp) 30 ml Q12H PRN PO 02/17/17 06:30 03/19/17 06:29 Diazepam (Valium Tab) 2 mg BID PRN PO 02/17/17 06:30 03/19/17 06:29 Future hold 03/03/17 08:15 2 MG Ondansetron HCl (Zofran Tab) 8 mg Q8 PRN PO 02/17/17 06:30 03/19/17 06:29 Senna/Docusate Sodium (Senokot S Tab) 1 tab QDL PRN PO 02/17/17 06:30 03/19/17 06:29 Polyethylene (Miralax Powder Packet) 17 gm QDL PRN PO 02/17/17 06:30 03/19/17 06:29 Metoprolol Tartrate (Lopressor Iv) 5 mg Q4 PRN IV 02/17/17 16:15 03/19/17 16:14 02/27/17 03:40 5 MG Heparin Sodium (Porcine) (Heparin 10 Unit/ ml 5 ml Flush) 5 ml PRN PRN FLUSH 02/18/17 00:30 03/20/17 00:29 03/01/17 20:03 5 ML Albuterol/ Ipratropium (Duoneb) 3 ml Q4R PRN INH 02/22/17 17:00 03/24/17 16:59 02/23/17 14:09 3 ML Miscellaneous Information (Consult Glycemic Management Pharmacy) 1 ea UD PRN N/A 02/23/17 09:30 03/25/17 09:29 Glycopyrrolate (Robinul Inj) 0.2 mg 3XDQ4 PRN IV 02/25/17 11:00 03/27/17 10:59 Methadone HCl (Dolophine Tab) 15 mg Q6 PO 02/26/17 12:00 03/12/17 11:59 03/03/17 17:41 15 MG Fluconazole (Diflucan Tab) 200 mg DAILY@1600 PO 02/27/17 16:00 03/04/17 16:01 03/03/17 16:10 200 MG Enoxaparin Sodium (Lovenox Inj) 80 mg Q12H SQ 02/27/17 11:00 03/29/17 10:59 03/03/17 08:19 80 MG Docusate Sodium (coLACE CAP) 100 mg BID PO 02/27/17 11:00 03/29/17 10:59 Insulin Human Regular (novoLIN-R) SLIDING SCALE ACHS SC 02/27/17 11:00 03/29/17 10:59 03/03/17 17:45 11 UNITS Metoprolol Succinate (Toprol Xl Tab) 12.5 mg QAM PO 02/28/17 09:00 03/30/17 08:59 03/03/17 08:16 12.5 MG Prednisone (PredniSONE TAB) 40 mg Taper DAILY@0800 PO 03/01/17 08:00 03/11/17 07:59 03/03/17 08:17 40 MG Diclofenac Sodium (Voltaren 1% Top Gel) 1 appln TID EXT 02/28/17 14:00 03/30/17 13:59 03/03/17 08:15 1 APPLN Insulin Glargine (Lantus Solostar Pen) 55 units QAM SC 03/01/17 09:00 03/31/17 08:59 03/03/17 08:21 55 UNITS Nitroglycerin (Nitrostat Tab) 0.4 mg PRN PRN SL 03/01/17 03:30 03/31/17 03:29 Magnesium Oxide (Mag-Ox Tab) 400 mg QAM PO 03/03/17 09:00 04/02/17 08:59 03/03/17 12:25 400 MG
[2017-03-04] MEDS: METHADONE HCL 10 MG TAB PO SCH ×4 (05:46→23:29)
[2017-03-04 07:22] LABS: CALCIUM 9.4 mg/dl (8.5-10.1); CREATININE 0.83 mg/dl (0.60-1.40); POTASSIUM 3.9 mmol/L (3.5-5.1)
[2017-03-04 07:42] VITALS: BP 104/64; PULSE 80; TEMP 36.2; O2SAT 98
[2017-03-04 08:00] VITALS: O2SAT 98
[2017-03-04] MEDS: DICLOFENAC SOD 1% GEL 100 GM TUBE EXT SCH ×3 (08:00→23:30)
[2017-03-04] MEDS: DOCUSATE SODIUM 100 MG CAP PO SCH ×2 (08:00→20:00)
[2017-03-04] MEDS: DIAZEPAM 2MG TAB PO PRN ×2 (08:18→23:28)
[2017-03-04] MEDS: MAGNESIUM OXIDE 400 MG TAB PO SCH (08:18)
[2017-03-04] MEDS: METOPROLOL SUCC 25MG EXT REL TAB PO SCH (08:19)
[2017-03-04] MEDS: ENOXAPARIN 80 MG/0.8 ML SYR SQ SCH ×2 (08:21→21:12)
[2017-03-04] MEDS: INSULIN HUMAN REGULAR SC SCH ×4 (08:37→20:28)
[2017-03-04] MEDS: INSULIN GLARGINE SOLOSTAR 100 UNITS/ML 3 ML PEN SC SCH (08:38)
[2017-03-04 11:40] VITALS: BP 105/66; PULSE 75; TEMP 36.6; O2SAT 97
[2017-03-04 15:02] VITALS: BP 129/69; PULSE 76; TEMP 36.6; O2SAT 97
[2017-03-04] MEDS: FLUCONAZOLE 100 MG TAB PO SCH (15:55)
[2017-03-04 17:00] VITALS: O2SAT 98
--- NOTE | 2017-03-04 19:49 | Progress Note ---
Medicine Progress Note Date & Time of Visit: Mar 04, 2017 at 19:48. Subjective Patient denies any new complaints, tolerating PO. States he has had increased sputum production and was concerned. No overnight events noted but patient reports desating at night. Objective Last 8 Hrs Date Time Temp Pulse Resp B/P (MAP) Pulse Ox O2 Delivery O2 Flow Rate FiO2 03/04/17 17:00 98 Nasal Cannula 4.0 03/04/17 15:02 36.6 76 18 129/69 (89) 97 4.0 Physical Exam: GENERAL: Patient is in no acute distress. HEENT: No acute trauma, normocephalic, mucous membranes moist, no nasal congestion, no scleral icterus. Conjunctivae clear NECK: No stridor, trachea is midline. LUNGS: Clear to auscultation bilaterally, no wheeze, no rhonchi, breath sounds equal. HEART: Without murmurs gallops or rubs, regular rate and rhythm. ABDOMEN: Soft, nontender, bowel sounds positive, no hepatosplenomegaly EXTREMITIES: No cyanosis or edema, moving all 4 limbs without pain NEUROLOGIC: Oriented x 3, no acute motor or sensory deficits, no focal weakness. SKIN: No rash, no jaundice, no diaphoresis. Laboratory Results: Last 24 Hours Test 03/03/17 20:33 03/04/17 05:46 03/04/17 07:29 03/04/17 11:41 Bedside Glucose 132 mg/dl 134 mg/dl 152 mg/dl Sodium Level 137 mmol/L Potassium Level 3.9 mmol/L Chloride Level 100 mmol/L Carbon Dioxide Level 33 mmol/L Anion Gap 4.0 mmol/L Blood Urea Nitrogen 27 mg/dl Creatinine 0.83 mg/dl Est Creatinine Clear Calc Drug Dose 132.0 ml/min Estimated GFR () 115.6 Estimated GFR (Non- 99.8 BUN/Creatinine Ratio 33.1 Random Glucose 101 mg/dl Calcium Level 9.4 mg/dl Test 03/04/17 16:29 Bedside Glucose 186 mg/dl Assessment & Plan EPISODE OF A FIB WITH RVR: -s/p emergent cardioversion in the ICU when rates were not improving after 3 doses IV metoprolol, amiodarone drip and hypotension; has since been off amio -remained in NSR since then -continued on PO metoprolol -patient transferred to medical ACUTE HYPOXIC RESPIRATORY FAILURE: -required intubation and mechanical ventilation twice since admission, initially appeared as ARDS picture but resolved quickly and the reintubation etiology was apnea but of unknown cause; unlikely pneumonia -known underlying small cell lung CA, recent pulmonary embolism (doubtful as CT chest shows less clot burden now), suspected radiation pneumonitis. -Bronchoscopy performed 02/17, cultures only showed meño albicans; neg for AFB or non samy bacteria -was on broad-spectrum antibiotics with Cefepime, Levaquin and Vancomycin, and Bactrim; now off antibiotics -Steroids: intravenous methylprednisolone; on slow steroid taper, on PO prednisone -Glass Furnace Operator consulted, management appreciated -S/P Extubation 02/22 and Reintubation on 02/24/17, Extubated again 02/26/17 -continued on fluconazole for meño in bronchial washing PROGRESSIVE SMALL CELL LUNG CA: -stage IIIb 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 per Onc -s/p several rounds of chemo and a course of radiation -Hem/Onc consulted, appreciate follow up -Palliative care consult, appreciated recs, POLST form completed, patient is DNR /DNI with limited additional interventions -MRI brain negative for mets PREVIOUS RADIATION PNEUMONITIS: -presented during his last admission with probable radiation pneumonitis -patient on prednisone 40mg with a slow taper SUBACUTE BILATERAL PE: -clot size decreased as of recent CT chest -was on heparin, switched back to Lovenox injections DM TYPE II: Insulin dependent -patient is reportedly very specific regarding his insulin therapy and diabetes control -was on insulin drip, has since been transitioned to subcutaneous insulin -Glycemic pharmacy consulted, appreciate management -very well controlled per patient HYPONATREMIA: resolved Na 137 today -Hyponatremia: probable SIADH based on labs/urine, euvolemic -serum Osm - 286 -urine Osm - 589 -urine Na - 133 -relative hypophosphatemia, hypokalemia, hypomagnesemia - replete and recheck, stable -patient is auto-diuresing and had significant urine output, was initially evaluated for DI which proved to be negative -continue to monitor lytes closely -Nephrology contacted and have placed patient on a free water restriction of 1500ml; continued Consultants: Pulmonary Medicine Critical Care Medicine Medical Oncology . Procedures: cardiac monitoring endotracheal intubation mechanical ventilation right internal jugular central venous catheter arterial line IV medications . Current Inpatient Medications: Current Inpatient Medications Medications (Trade) Dose Ordered Sig/Prince Route Start Time Stop Time Status Last Admin Dose Admin Acetaminophen (Tylenol Tab) 650 mg Q4H PRN PO 02/17/17 06:30 03/19/17 06:29 Al Hydrox/Mg Hydrox/Simethicone (Maalox Max Susp) 15 ml Q4H PRN PO 02/17/17 06:30 03/19/17 06:29 Magnesium Hydroxide (Milk Of Magnesia Susp) 30 ml Q12H PRN PO 02/17/17 06:30 03/19/17 06:29 Diazepam (Valium Tab) 2 mg BID PRN PO 02/17/17 06:30 03/19/17 06:29 Future hold 03/04/17 08:18 2 MG Ondansetron HCl (Zofran Tab) 8 mg Q8 PRN PO 02/17/17 06:30 03/19/17 06:29 Senna/Docusate Sodium (Senokot S Tab) 1 tab QDL PRN PO 02/17/17 06:30 03/19/17 06:29 Polyethylene (Miralax Powder Packet) 17 gm QDL PRN PO 02/17/17 06:30 03/19/17 06:29 Metoprolol Tartrate (Lopressor Iv) 5 mg Q4 PRN IV 02/17/17 16:15 03/19/17 16:14 02/27/17 03:40 5 MG Heparin Sodium (Porcine) (Heparin 10 Unit/ ml 5 ml Flush) 5 ml PRN PRN FLUSH 02/18/17 00:30 03/20/17 00:29 03/01/17 20:03 5 ML Albuterol/ Ipratropium (Duoneb) 3 ml Q4R PRN INH 02/22/17 17:00 03/24/17 16:59 02/23/17 14:09 3 ML Miscellaneous Information (Consult Glycemic Management Pharmacy) 1 ea UD PRN N/A 02/23/17 09:30 03/25/17 09:29 Glycopyrrolate (Robinul Inj) 0.2 mg 3XDQ4 PRN IV 02/25/17 11:00 03/27/17 10:59 Methadone HCl (Dolophine Tab) 15 mg Q6 PO 02/26/17 12:00 03/12/17 11:59 03/04/17 17:35 15 MG Enoxaparin Sodium (Lovenox Inj) 80 mg Q12H SQ 02/27/17 11:00 03/29/17 10:59 03/04/17 08:21 80 MG Docusate Sodium (coLACE CAP) 100 mg BID PO 02/27/17 11:00 03/29/17 10:59 Insulin Human Regular (novoLIN-R) SLIDING SCALE ACHS SC 02/27/17 11:00 03/29/17 10:59 03/04/17 17:34 10 UNITS Metoprolol Succinate (Toprol Xl Tab) 12.5 mg QAM PO 02/28/17 09:00 03/30/17 08:59 03/04/17 08:19 12.5 MG Prednisone (PredniSONE TAB) 20 mg Taper DAILY@0800 PO 03/01/17 08:00 03/11/17 07:59 03/04/17 08:18 20 MG Diclofenac Sodium (Voltaren 1% Top Gel) 1 appln TID EXT 02/28/17 14:00 03/30/17 13:59 03/03/17 21:07 1 APPLN Insulin Glargine (Lantus Solostar Pen) 55 units QAM SC 03/01/17 09:00 03/31/17 08:59 Future Hold 03/04/17 08:38 55 UNITS Nitroglycerin (Nitrostat Tab) 0.4 mg PRN PRN SL 03/01/17 03:30 03/31/17 03:29 Magnesium Oxide (Mag-Ox Tab) 400 mg QAM PO 03/03/17 09:00 04/02/17 08:59 03/04/17 08:18 400 MG
[2017-03-04 20:16] VITALS: BP 113/74; PULSE 85; TEMP 36.5; O2SAT 95
[2017-03-05] VITALS (8 sets, daily range): BP systolic 101–133; BP diastolic 67–83; PULSE 78–103; TEMP 36.3–36.6; O2SAT 96–100
[2017-03-05] MEDS: METHADONE HCL 10 MG TAB PO SCH ×4 (06:13→23:40)
[2017-03-05 07:18] LABS: CALCIUM 8.9 mg/dl (8.5-10.1); CREATININE 0.81 mg/dl (0.60-1.40); POTASSIUM 3.8 mmol/L (3.5-5.1)
--- NOTE | 2017-03-05 07:40 | DIAGNOSTIC IMAGING REPORT ---
CHEST ONE VIEW PORTABLE CLINICAL HISTORY: Increased cough dyspnea COMPARISON STUDY: 02/25/2017. FINDINGS: Mildly progressive increase in cardiac size. Aggressive infiltrative change left as well as right hemithorax. Resume seen elevation left hemidiaphragm presumably secondary to a component of consolidative change. IMPRESSION: Progressive components of congestive failure and/or pulmonary edema. Increased density left hemithorax with associated mild volume loss. No evidence for presence of an endotracheal tube on this study. The above report was generated using voice recognition software. It may contain grammatical, syntax or spelling errors. Electronically signed by: Sunday Mckeon M.D. 03/05/2017 7:39 AM Dictated Date/Time: 03/05/2017 7:37 AM
[2017-03-05] MEDS: DOCUSATE SODIUM 100 MG CAP PO SCH ×2 (08:20→20:40)
[2017-03-05] MEDS: DICLOFENAC SOD 1% GEL 100 GM TUBE EXT SCH ×3 (08:20→23:39)
[2017-03-05] MEDS: MAGNESIUM OXIDE 400 MG TAB PO SCH (08:21)
[2017-03-05] MEDS: METOPROLOL SUCC 25MG EXT REL TAB PO SCH (08:22)
[2017-03-05] MEDS: ENOXAPARIN 80 MG/0.8 ML SYR SQ SCH ×2 (08:23→20:39)
[2017-03-05] MEDS: DIAZEPAM 2MG TAB PO PRN ×2 (08:28→23:40)
[2017-03-05] MEDS: INSULIN HUMAN REGULAR SC SCH ×4 (09:12→20:41)
[2017-03-05] MEDS: INSULIN GLARGINE SOLOSTAR 100 UNITS/ML 3 ML PEN SC SCH (09:16)
--- NOTE | 2017-03-05 12:09 | Pharmacy Progress Note ---
Glycemic: Assessment & Plan Date of Service Mar 05, 2017. Assessment & Plan The patient is currently receiving ~70 units of insulin per day. BSGs ranging 126 - 186 mg/dl over the past 24hrs. * Basal insulin: Lantus 55 units every 24 hours * Correctional Insulin: Novolog Correction per scale ACHS Goal Range: Low 110 mg/dL - High 140 mg/dL Correction Factor: 10 mg/dL/unit * Prandial insulin: Per carb ratio of 1 unit per 4 grams CHO consumed BSGs continue to improve, no changes needed to inpatient regimen at this time. Pharmacy will continue to monitor patient daily and write orders per [facility] inpatient glycemic control protocol. Thanks. * Please note that the plan above was derived based on current level of insulin resistance and hospital stress. These recommendations are appropriate for inpatient admission only. Plan of care upon discharge will need to be reassessed to avoid potential outpatient hypo/hyperglycemia.
--- NOTE | 2017-03-05 18:25 | Hematology/Oncology Prog Note ---
Hematology/Onc Progress Note Date of Service Mar 05, 2017. Subjective I saw him at bedside around the 7:45 a.m. in the morning, he was sitting quite comfortable in the bed, receiving nasal cannula supplemental oxygen at 4 L/min he says that yesterday he had some increasing leg edema when he was sitting for some time outside in the chair, leg edema has improved, he is on fluconazole for Eva infection which grew from the bronchial washing, receiving Lovenox, no new bleeding complications, hemodynamically has remained stable, O2 saturation 96% on a nasal cannula supplemental oxygen at 4 L per minute no fever , receiving feeling support for diabetes mellitus, now receiving tapering dose of prednisone, currently on 20 mg per day. Overall gradual improvement of his clinical condition noted, I reviewed his blood workup done on 03/03/2017, stable hemoglobin level around 10.4 g/dL, normal white blood cell count, normal platelet count, sodium level has improved and now it is in normal range around 136, serum creatinine level is 0.8. Will continue with the current medical management.t. Vital Signs Vital Signs Past 12 Hours Date Time Temp Pulse Resp B/P (MAP) Pulse Ox O2 Delivery O2 Flow Rate FiO2 03/05/17 16:00 96 Nasal Cannula 4.0 03/05/17 15:44 36.6 94 18 126/81 (96) 96 Nasal Cannula 4.0 03/05/17 11:19 36.3 78 20 101/67 (78) 98 Nasal Cannula 4.0 03/05/17 08:30 96 Nasal Cannula 4.0 03/05/17 07:34 36.4 91 18 114/71 (85) 96 4.0
--- NOTE | 2017-03-05 20:31 | Progress Note ---
Medicine Progress Note Date & Time of Visit: Mar 05, 2017 at 20:27. Subjective Has concerns about being discharged to a facility; is anxious about still having CURIEL and increased sputum production. No overnight events noted. Patient states he hears his alarm go off at night for low oxygen. Has been tolerating PO but still c/o a sore throat. Objective Last 8 Hrs Date Time Temp Pulse Resp B/P (MAP) Pulse Ox O2 Delivery O2 Flow Rate FiO2 03/05/17 19:11 36.5 83 18 133/83 (100) 96 Nasal Cannula 5.0 03/05/17 16:00 96 Nasal Cannula 4.0 03/05/17 15:44 36.6 94 18 126/81 (96) 96 Nasal Cannula 4.0 Physical Exam: GENERAL: Patient is in no acute distress. HEENT: No acute trauma, normocephalic, mucous membranes moist, no nasal congestion, no scleral icterus. Conjunctivae clear NECK: No stridor, trachea is midline. LUNGS: Clear to auscultation bilaterally, no wheeze, no rhonchi, breath sounds equal. HEART: Without murmurs gallops or rubs, regular rate and rhythm. ABDOMEN: Soft, nontender, bowel sounds positive, no hepatosplenomegaly EXTREMITIES: No cyanosis or edema, moving all 4 limbs without pain NEUROLOGIC: Oriented x 3, no acute motor or sensory deficits, no focal weakness. SKIN: No rash, no jaundice, no diaphoresis. Laboratory Results: Last 24 Hours Test 03/05/17 05:56 03/05/17 07:35 03/05/17 11:45 03/05/17 16:42 Sodium Level 136 mmol/L Potassium Level 3.8 mmol/L Chloride Level 99 mmol/L Carbon Dioxide Level 33 mmol/L Anion Gap 4.0 mmol/L Blood Urea Nitrogen 24 mg/dl Creatinine 0.81 mg/dl Est Creatinine Clear Calc Drug Dose 135.2 ml/min Estimated GFR () 116.8 Estimated GFR (Non- 100.8 BUN/Creatinine Ratio 29.6 Random Glucose 125 mg/dl Calcium Level 8.9 mg/dl Magnesium Level 1.8 mg/dl Bedside Glucose 126 mg/dl 183 mg/dl 179 mg/dl Test 03/05/17 19:57 Bedside Glucose 171 mg/dl Assessment & Plan EPISODE OF A FIB WITH RVR: -s/p emergent cardioversion in the ICU when rates were not improving after 3 doses IV metoprolol, amiodarone drip and hypotension; has since been off amio -remained in NSR since then -continued on PO metoprolol -patient transferred to medical ACUTE HYPOXIC RESPIRATORY FAILURE: -required intubation and mechanical ventilation twice since admission, initially appeared as ARDS picture but resolved quickly and the reintubation etiology was apnea but of unknown cause; unlikely pneumonia -known underlying small cell lung CA, recent pulmonary embolism (doubtful as CT chest shows less clot burden now), suspected radiation pneumonitis. -Bronchoscopy performed 02/17, cultures only showed meño albicans; neg for AFB or non samy bacteria -was on broad-spectrum antibiotics with Cefepime, Levaquin and Vancomycin, and Bactrim; now off antibiotics -Steroids: intravenous methylprednisolone; on slow steroid taper, on PO prednisone -Smooth And Burr Worker Composites consulted, management appreciated -S/P Extubation 02/22 and Reintubation on 02/24/17, Extubated again 02/26/17 -continued on fluconazole for meño in bronchial washing, now completed course and off -repeated CXR today, appears to have more congestion; Increased density left hemithorax with associated mild volume loss. No evidence for presence of an endotracheal tube on this study. PROGRESSIVE SMALL CELL LUNG CA: -stage IIIb 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 per Onc -s/p several rounds of chemo and a course of radiation -Hem/Onc consulted, appreciate follow up -Palliative care consult, appreciated recs, POLST form completed, patient is DNR /DNI with limited additional interventions -MRI brain negative for mets PREVIOUS RADIATION PNEUMONITIS: -presented during his last admission with probable radiation pneumonitis -patient on prednisone 40mg with a slow taper SUBACUTE BILATERAL PE: -clot size decreased as of recent CT chest -was on heparin, switched back to Lovenox injections DM TYPE II: Insulin dependent -patient is reportedly very specific regarding his insulin therapy and diabetes control -was on insulin drip, has since been transitioned to subcutaneous insulin -Glycemic pharmacy consulted, appreciate management -very well controlled per patient HYPONATREMIA: resolved -Hyponatremia: probable SIADH based on labs/urine, euvolemic -serum Osm - 286 -urine Osm - 589 -urine Na - 133 -relative hypophosphatemia, hypokalemia, hypomagnesemia - replete and recheck, stable -patient is auto-diuresing and had significant urine output, was initially evaluated for DI which proved to be negative -continue to monitor lytes closely -Nephrology contacted and have placed patient on a free water restriction of 1500ml; continued Consultants: Pulmonary Medicine Critical Care Medicine Medical Oncology . Procedures: cardiac monitoring endotracheal intubation mechanical ventilation right internal jugular central venous catheter arterial line IV medications . Current Inpatient Medications: Current Inpatient Medications Medications (Trade) Dose Ordered Sig/Prince Route Start Time Stop Time Status Last Admin Dose Admin Acetaminophen (Tylenol Tab) 650 mg Q4H PRN PO 02/17/17 06:30 03/19/17 06:29 Al Hydrox/Mg Hydrox/Simethicone (Maalox Max Susp) 15 ml Q4H PRN PO 02/17/17 06:30 03/19/17 06:29 Magnesium Hydroxide (Milk Of Magnesia Susp) 30 ml Q12H PRN PO 02/17/17 06:30 03/19/17 06:29 Diazepam (Valium Tab) 2 mg BID PRN PO 02/17/17 06:30 03/19/17 06:29 Future hold 03/05/17 08:28 2 MG Ondansetron HCl (Zofran Tab) 8 mg Q8 PRN PO 02/17/17 06:30 03/19/17 06:29 Senna/Docusate Sodium (Senokot S Tab) 1 tab QDL PRN PO 02/17/17 06:30 03/19/17 06:29 Polyethylene (Miralax Powder Packet) 17 gm QDL PRN PO 02/17/17 06:30 03/19/17 06:29 Metoprolol Tartrate (Lopressor Iv) 5 mg Q4 PRN IV 02/17/17 16:15 03/19/17 16:14 02/27/17 03:40 5 MG Heparin Sodium (Porcine) (Heparin 10 Unit/ ml 5 ml Flush) 5 ml PRN PRN FLUSH 02/18/17 00:30 03/20/17 00:29 03/01/17 20:03 5 ML Albuterol/ Ipratropium (Duoneb) 3 ml Q4R PRN INH 02/22/17 17:00 03/24/17 16:59 02/23/17 14:09 3 ML Miscellaneous Information (Consult Glycemic Management Pharmacy) 1 ea UD PRN N/A 12/1/17 09:30 03/25/17 09:29 Glycopyrrolate (Robinul Inj) 0.2 mg 3XDQ4 PRN IV 02/25/17 11:00 03/27/17 10:59 Methadone HCl (Dolophine Tab) 15 mg Q6 PO 02/26/17 12:00 03/12/17 11:59 03/05/17 17:40 15 MG Enoxaparin Sodium (Lovenox Inj) 80 mg Q12H SQ 02/27/17 11:00 03/29/17 10:59 03/05/17 08:23 80 MG Docusate Sodium (coLACE CAP) 100 mg BID PO 02/27/17 11:00 03/29/17 10:59 03/05/17 08:20 100 MG Insulin Human Regular (novoLIN-R) SLIDING SCALE ACHS SC 02/27/17 11:00 03/29/17 10:59 03/05/17 17:47 15 UNITS Metoprolol Succinate (Toprol Xl Tab) 12.5 mg QAM PO 02/28/17 09:00 03/30/17 08:59 03/05/17 08:22 12.5 MG Prednisone (PredniSONE TAB) 20 mg Taper DAILY@0800 PO 03/01/17 08:00 03/11/17 07:59 03/05/17 08:22 20 MG Diclofenac Sodium (Voltaren 1% Top Gel) 1 appln TID EXT 02/28/17 14:00 03/30/17 13:59 03/05/17 14:59 1 APPLN Insulin Glargine (Lantus Solostar Pen) 55 units QAM SC 03/01/17 09:00 03/31/17 08:59 Future hold 03/05/17 09:16 55 UNITS Nitroglycerin (Nitrostat Tab) 0.4 mg PRN PRN SL 03/01/17 03:30 03/31/17 03:29 Magnesium Oxide (Mag-Ox Tab) 400 mg QAM PO 03/03/17 09:00 04/02/17 08:59 03/05/17 08:21 400 MG
[2017-03-06] VITALS (8 sets, daily range): BP systolic 107–130; BP diastolic 63–75; PULSE 77–87; TEMP 36.5–37; O2SAT 90–98
[2017-03-06 05:42] LABS: HEMATOCRIT 31.8 % (42-52); HEMOGLOBIN 9.9 g/dL (14.0-18.0); MEAN CELL VOLUME 92.4 fL (80-100); MEAN CORPUSCULAR HEMOGLOBIN 28.8 pg (25-34); MEAN CORPUSCULAR HGB CONC 31.1 g/dl (32-36); MEAN PLATELET VOLUME 9.7 fL (7.4-10.4); PLATELET COUNT 209 K/uL (130-400); RED CELL DISTRIBUTION WIDTH CV 17.9 % (11.5-14.5); RED CELL DISTRIBUTION WIDTH SD 61.1 fL (36.4-46.3); WHITE BLOOD COUNT 5.72 K/uL (4.8-10.8)
[2017-03-06] MEDS: METHADONE HCL 10 MG TAB PO SCH ×4 (06:12→23:20)
[2017-03-06 06:13] LABS: CALCIUM 8.9 mg/dl (8.5-10.1); CREATININE 0.78 mg/dl (0.60-1.40); POTASSIUM 4.3 mmol/L (3.5-5.1)
[2017-03-06] MEDS: INSULIN HUMAN REGULAR SC SCH ×4 (06:30→20:11)
[2017-03-06] MEDS: DOCUSATE SODIUM 100 MG CAP PO SCH ×2 (07:41→20:00)
[2017-03-06] MEDS: DICLOFENAC SOD 1% GEL 100 GM TUBE EXT SCH ×3 (08:00→20:12)
[2017-03-06] MEDS: INSULIN GLARGINE SOLOSTAR 100 UNITS/ML 3 ML PEN SC SCH (08:17)
[2017-03-06] MEDS: MAGNESIUM OXIDE 400 MG TAB PO SCH (08:19)
[2017-03-06] MEDS: ENOXAPARIN 80 MG/0.8 ML SYR SQ SCH ×2 (08:20→20:13)
[2017-03-06] MEDS: METOPROLOL SUCC 25MG EXT REL TAB PO SCH (08:22)
[2017-03-06] MEDS: DIAZEPAM 2MG TAB PO PRN ×2 (12:27→23:20)
--- NOTE | 2017-03-06 17:20 | Progress Note ---
Internal Med Progress Note Date of Service: Mar 06, 2017. Provider Documentation: SUBJECTIVE: The patient was seen and examined Denies any symptoms No SOB at rest,no Cough OBJECTIVE: Vital Signs-as noted below Exam: General-no distress at rest Eyes-normal ENT-Normal Neck-Supple Lungs-clear to auscultate bilaterally Heart-Regular,no murmur appreciated Abdomen-Benign,no masses,bowel sound present Extremities-trace edema bilaterally Neuro-AAO Generally weak Lab data as noted below. ASSESSMENT & PLAN: This is a 56 year old male with a PMH of small cell lung CA - has undergone chemo/radiation, recent diagnosis of bilateral PE, insulin dependent DM2, diabetic polyneuropathy presents with fevers and hypoxia from [facility] EPISODE OF A FIB WITH RVR: -s/p emergent cardioversion in the ICU when rates were not improving after 3 doses IV metoprolol, amiodarone drip and hypotension; has since been off amio -remained in NSR since then -continued on PO metoprolol -patient transferred to medical -Clinically stable and rate is controlled Acute Hypoxic Respiratory Failure secondary to HCAP Acute hypoxic respiratory failure requiring intubation and mechanical ventilation. Contributing factors may include infection, ARDS, progressive small cell carcinoma lung, recent pulmonary embolism, suspected radiation pneumonitis. Bronchoscopy performed 02/17-results pending. CTA chest 02/18 showed resolution of previously noted PE's. Receiving broad-spectrum antibiotics with Cefepime, Levaquin and Vancomycin and intravenous methylprednisolone. Maintaining oxygenation, albeit with FIO2 of 80% and PEEP. Ongoing management per CCM and Pulmonary Medicine. Later on IV Bactrim was added and discontinued Pulmonary consultation for further input Oncology consulted and input appreciated S/P Extubation 02/22 and Reintubation on 02/24/17 Antibiotics will be deescalated as per Pad Machine Operator and Steroid dose adjusted Remains stable on Vent again Has been on IV fluconazole for meño in bronchial washing Try to extubate today Subsequently transferred to Medical floor and doing reasonably well PROGRESSIVE SMALL CELL LUNG CA: -stage IIIb 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 per Onc -s/p several rounds of chemo and a course of radiation -Hem/Onc consulted, appreciate follow up -Palliative care consult, appreciated recs, POLST form completed, patient is DNR /DNI with limited additional interventions -MRI brain negative for mets -Clinically stable PREVIOUS RADIATION PNEUMONITIS: -presented during his last admission with probable radiation pneumonitis -patient on prednisone 40mg with a slow taper SUBACUTE BILATERAL PE: -clot size decreased as of recent CT chest -was on heparin, switched back to Lovenox injections DM TYPE II: Insulin dependent -patient is reportedly very specific regarding his insulin therapy and diabetes control -was on insulin drip, has since been transitioned to subcutaneous insulin -Glycemic pharmacy consulted, appreciate management -very well controlled per patient HYPONATREMIA: resolved -Hyponatremia: probable SIADH based on labs/urine, euvolemic -serum Osm - 286 -urine Osm - 589 -urine Na - 133 -relative hypophosphatemia, hypokalemia, hypomagnesemia - replete and recheck, stable -patient is auto-diuresing and had significant urine output, was initially evaluated for DI which proved to be negative -continue to monitor lytes closely -Nephrology contacted and have placed patient on a free water restriction of 1500ml; continued Bilateral PE Patient recently diagnosed with bilateral PE Continue Lovenox injections CTA chest 02/18 showed resolution of previously noted PE's Now on Heparin -continue for now Oncology to decide about reasonable anticoagulation Insulin Dependent DM2 Patient is very specific regarding his insulin therapy He uses NPH 70/30 - was discharged with around 70 units in the AM and 90 units in the PM On his summary from [facility], he was requiring over 100 units BID Try 70 units BID for now, monitor for hypoglycemia, which was an issue during previous admission Consulted pharmacy glycemic control-reasonably stable GI / NUTRITION Receiving pantoprazole for GI prophylaxis. Receiving enteral nutrition via GT. Started on TPN and now on Enteral feeding Change to oral when appropriate Electrolytes Imbalance Hyponatremia and hypophosphatemia Replace and monitor VTE PROPHYLAXIS Receiving therapeutic dosing of enoxaparin due to prior history of VTE. Has been on IV heparin RESUSCITATION STATUS DNR DISPOSITION Critically ill. Discharge disposition to be determined. . Consultants: Pulmonary Medicine Critical Care Medicine Medical Oncology . Procedures: cardiac monitoring endotracheal intubation mechanical ventilation right internal jugular central venous catheter arterial line IV medications Waiting for placement Vital Signs: Date Time Temp Pulse Resp B/P (MAP) Pulse Ox O2 Delivery O2 Flow Rate FiO2 03/06/17 16:00 94 Nasal Cannula 4.0 03/06/17 14:57 36.9 82 18 120/73 (89) 90 4.0 03/06/17 11:46 36.8 78 22 115/70 (85) 95 Nasal Cannula 4.0 03/06/17 08:00 97 Nasal Cannula 4.0 03/06/17 07:10 37.0 77 20 107/66 (80) 97 Nasal Cannula 4.0 03/06/17 04:24 36.6 80 18 108/63 (78) 98 03/06/17 00:15 Room Air 4.0 03/05/17 23:37 36.4 83 19 119/78 (92) 100 Nasal Cannula 5.0 03/05/17 20:10 Room Air 4.0 03/05/17 19:11 36.5 83 18 133/83 (100) 96 Nasal Cannula 5.0 Lab Results: Results Past 24 Hours Test 03/05/17 19:57 03/06/17 05:26 03/06/17 07:39 03/06/17 11:13 Range/Units Bedside Glucose 171 145 199 70-99 mg/dl White Blood Count 5.72 4.8-10.8 K/uL Red Blood Count 3.44 4.7-6.1 M/uL Hemoglobin 9.9 14.0-18.0 g/dL Hematocrit 31.8 42-52 % Mean Corpuscular Volume 92.4 80-100 fL Mean Corpuscular Hemoglobin 28.8 25-34 pg Mean Corpuscular Hemoglobin Concent 31.1 32-36 g/dl RDW Standard Deviation 61.1 36.4-46.3 fL RDW Coefficient of Variation 17.9 11.5-14.5 % Platelet Count 209 130-400 K/uL Mean Platelet Volume 9.7 7.4-10.4 fL Sodium Level 135 136-145 mmol/L Potassium Level 4.3 3.5-5.1 mmol/L Chloride Level 101 98-107 mmol/L Carbon Dioxide Level 34 21-32 mmol/L Anion Gap 0.0 3-11 mmol/L Blood Urea Nitrogen 22 7-18 mg/dl Creatinine 0.78 0.60-1.40 mg/dl Est Creatinine Clear Calc Drug Dose 140.4 ml/min Estimated GFR () 118.6 Estimated GFR (Non- 102.3 BUN/Creatinine Ratio 28.7 10-20 Random Glucose 117 70-99 mg/dl Calcium Level 8.9 8.5-10.1 mg/dl Test 03/06/17 16:43 Range/Units Bedside Glucose 191 70-99 mg/dl Microbiology Results 03/05/17 Gram Stain - Final, Resulted 03/05/17 Sputum Culture, Resulted Pending
[2017-03-07] VITALS (9 sets, daily range): BP systolic 96–147; BP diastolic 55–80; PULSE 73–92; TEMP 36.7–37; O2SAT 91–98
[2017-03-07] MEDS: METHADONE HCL 10 MG TAB PO SCH ×4 (05:19→23:31)
[2017-03-07 06:42] LABS: CALCIUM 8.8 mg/dl (8.5-10.1); CREATININE 0.56 mg/dl (0.60-1.40); POTASSIUM 3.7 mmol/L (3.5-5.1)
[2017-03-07] MEDS: DOCUSATE SODIUM 100 MG CAP PO SCH ×2 (08:00→19:40)
[2017-03-07] MEDS: ENOXAPARIN 80 MG/0.8 ML SYR SQ SCH ×2 (08:23→22:02)
[2017-03-07] MEDS: DICLOFENAC SOD 1% GEL 100 GM TUBE EXT SCH ×3 (08:24→19:40)
[2017-03-07] MEDS: MAGNESIUM OXIDE 400 MG TAB PO SCH (08:25)
[2017-03-07] MEDS: METOPROLOL SUCC 25MG EXT REL TAB PO SCH (08:26)
[2017-03-07] MEDS: INSULIN GLARGINE SOLOSTAR 100 UNITS/ML 3 ML PEN SC SCH (08:30)
[2017-03-07] MEDS: INSULIN HUMAN REGULAR SC SCH ×4 (08:31→22:03)
[2017-03-07] MEDS: DIAZEPAM 2MG TAB PO PRN ×2 (12:25→23:34)
--- NOTE | 2017-03-07 13:31 | Progress Note ---
Internal Med Progress Note Date of Service: Mar 07, 2017. Provider Documentation: SUBJECTIVE: The patient was seen and examined Denies any symptoms No SOB at rest,occasion cough specially in the morning Remains stable -waiting to be transferred to a facility OBJECTIVE: Vital Signs-as noted below Exam: General-no distress at rest Eyes-normal ENT-Normal Neck-Supple Lungs-clear to auscultate bilaterally Heart-Regular,no murmur appreciated Abdomen-Benign,no masses,bowel sound present Extremities-trace edema bilaterally Neuro-AAO Generally weak Lab data as noted below. ASSESSMENT & PLAN: This is a 56 year old male with a PMH of small cell lung CA - has undergone chemo/radiation, recent diagnosis of bilateral PE, insulin dependent DM2, diabetic polyneuropathy presents with fevers and hypoxia from [facility] EPISODE OF A FIB WITH RVR: -s/p emergent cardioversion in the ICU when rates were not improving after 3 doses IV metoprolol, amiodarone drip and hypotension; has since been off amio -remained in NSR since then -continued on PO metoprolol -patient transferred to medical -Clinically stable and rate is controlled -Rate is controlled Acute Hypoxic Respiratory Failure secondary to HCAP Acute hypoxic respiratory failure requiring intubation and mechanical ventilation. Contributing factors may include infection, ARDS, progressive small cell carcinoma lung, recent pulmonary embolism, suspected radiation pneumonitis. Bronchoscopy performed 02/17-results pending. CTA chest 02/18 showed resolution of previously noted PE's. Receiving broad-spectrum antibiotics with Cefepime, Levaquin and Vancomycin and intravenous methylprednisolone. Maintaining oxygenation, albeit with FIO2 of 80% and PEEP. Ongoing management per CCM and Pulmonary Medicine. Later on IV Bactrim was added and discontinued Pulmonary consultation for further input Oncology consulted and input appreciated S/P Extubation 02/22 and Reintubation on 02/24/17 Antibiotics will be deescalated as per Sugar Mill Worker and Steroid dose adjusted Remains stable on Vent again Has been on IV fluconazole for meño in bronchial washing Try to extubate today Subsequently transferred to Medical floor and doing reasonably well Remains stable and ready to be discharged PROGRESSIVE SMALL CELL LUNG CA: -stage IIIb 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 per Onc -s/p several rounds of chemo and a course of radiation -Hem/Onc consulted, appreciate follow up -Palliative care consult, appreciated recs, POLST form completed, patient is DNR /DNI with limited additional interventions -MRI brain negative for mets -Clinically stable further management as per Oncology PREVIOUS RADIATION PNEUMONITIS: -presented during his last admission with probable radiation pneumonitis -patient on prednisone 40mg with a slow taper SUBACUTE BILATERAL PE: -clot size decreased as of recent CT chest -was on heparin, switched back to Lovenox injections DM TYPE II: Insulin dependent -patient is reportedly very specific regarding his insulin therapy and diabetes control -was on insulin drip, has since been transitioned to subcutaneous insulin -Glycemic pharmacy consulted, appreciate management -very well controlled per patient HYPONATREMIA: resolved -Hyponatremia: probable SIADH based on labs/urine, euvolemic -serum Osm - 286 -urine Osm - 589 -urine Na - 133 -relative hypophosphatemia, hypokalemia, hypomagnesemia - replete and recheck, stable -patient is auto-diuresing and had significant urine output, was initially evaluated for DI which proved to be negative -continue to monitor lytes closely -Nephrology contacted and have placed patient on a free water restriction of 1500ml; continued Bilateral PE Patient recently diagnosed with bilateral PE Continue Lovenox injections CTA chest 02/18 showed resolution of previously noted PE's Now on Heparin -continue for now Oncology to decide about reasonable anticoagulation Has been on Lovenox 80mg BID Insulin Dependent DM2 Patient is very specific regarding his insulin therapy He uses NPH 70/30 - was discharged with around 70 units in the AM and 90 units in the PM On his summary from [facility], he was requiring over 100 units BID Try 70 units BID for now, monitor for hypoglycemia, which was an issue during previous admission Consulted pharmacy glycemic control-reasonably stable GI / NUTRITION Receiving pantoprazole for GI prophylaxis. Receiving enteral nutrition via GT. Started on TPN and now on Enteral feeding Change to oral when appropriate Electrolytes Imbalance Hyponatremia and hypophosphatemia Replace and monitor VTE PROPHYLAXIS Receiving therapeutic dosing of enoxaparin due to prior history of VTE. Has been on IV heparin RESUSCITATION STATUS DNR DISPOSITION Critically ill. Discharge disposition to be determined. . Consultants: Pulmonary Medicine Critical Care Medicine Medical Oncology . Procedures: cardiac monitoring endotracheal intubation mechanical ventilation right internal jugular central venous catheter arterial line IV medications Waiting for placement Vital Signs: Date Time Temp Pulse Resp B/P (MAP) Pulse Ox O2 Delivery O2 Flow Rate FiO2 03/07/17 10:52 37.0 73 18 113/69 (84) 98 5.0 03/07/17 08:22 74 101/64 (76) 03/07/17 08:00 97 Nasal Cannula 4.0 03/07/17 07:50 36.7 79 18 96/55 (69) 97 Nasal Cannula 5.0 03/07/17 04:18 36.9 85 18 114/63 (80) 96 Nasal Cannula 6.0 03/07/17 00:00 Nasal Cannula 4.0 03/06/17 23:33 36.5 87 18 130/72 (91) 94 Nasal Cannula 6.0 03/06/17 20:23 36.7 82 18 124/75 (91) 97 Nasal Cannula 5.0 03/06/17 20:00 Nasal Cannula 4.0 03/06/17 16:00 94 Nasal Cannula 4.0 03/06/17 14:57 36.9 82 18 120/73 (89) 90 4.0 Lab Results: Results Past 24 Hours Test 03/06/17 16:43 03/06/17 19:57 03/07/17 05:38 03/07/17 07:40 Range/Units Bedside Glucose 191 134 172 70-99 mg/dl Sodium Level 136 136-145 mmol/L Potassium Level 3.7 3.5-5.1 mmol/L Chloride Level 100 98-107 mmol/L Carbon Dioxide Level 32 21-32 mmol/L Anion Gap 4.0 3-11 mmol/L Blood Urea Nitrogen 16 7-18 mg/dl Creatinine 0.56 0.60-1.40 mg/dl Est Creatinine Clear Calc Drug Dose 214.6 ml/min Estimated GFR () 135.9 Estimated GFR (Non- 117.3 BUN/Creatinine Ratio 28.9 10-20 Random Glucose 96 70-99 mg/dl Calcium Level 8.8 8.5-10.1 mg/dl Test 03/07/17 11:46 Range/Units Bedside Glucose 160 70-99 mg/dl
--- NOTE | 2017-03-07 14:53 | Pharmacy Progress Note ---
Pharmacy Glycemic Short Note 2 Date of Service Mar 07, 2017. OUTPATIENT ANTIDIABETIC REGIMEN: * Novolin N 70-90 units with meals; Regular insulin sliding scale ASSESSMENT: * Mr Carcamo is a 56 y/o M admitted with respiratory failure and ARDS. Please see previous notes for the current hospital course of the patient. * Currently, Mr Carcamo's blood sugars are ranging from 134-199 mg/dL. He received about 85 units of insulin yesterday with 55 units of this being basal insulin. He did refuse his morning insulin dose so his total daily dose is likely much higher. His fasting blood sugar was difficult to interpret. On the PRP, his fasting was 79 mg/dL and his POC was 172 mg/dL. The basal insulin was decreased slightly since it may be that his true fasting was 79 mg/dL. * In terms of Novolog, the patient's post-prandial blood sugars appear well controlled; it may be possible that the Novolog stacks. However, since the patient refused yesterday's breakfast insulin, it was difficult to interpret. Therefore, will continue current regimen. This may require loosening tomorrow. PLAN FOR INPATIENT GLYCEMIC CONTROL: * Basal insulin * Lantus 50 units SQ in the morning * Bolus insulin * NovoLog per scale ACHS or Q6hrs while NPO * Goal Range: Low 110 mg/dL - High 140 mg/dL * Correction Factor: 10 mg/dL/unit * Nutritional / Prandial insulin per carb ratio of 1 unit per 4 grams CHO consumed
[2017-03-08] VITALS (7 sets, daily range): BP systolic 99–119; BP diastolic 58–67; PULSE 73–91; TEMP 36.6–37.1; O2SAT 92–98
[2017-03-08 05:48] LABS: HEMATOCRIT 29.9 % (42-52); HEMOGLOBIN 9.2 g/dL (14.0-18.0); MEAN CORPUSCULAR HEMOGLOBIN 28.3 pg (25-34); MEAN CORPUSCULAR HGB CONC 30.8 g/dl (32-36); MEAN PLATELET VOLUME 10.1 fL (7.4-10.4); PLATELET COUNT 218 K/uL (130-400); RED CELL DISTRIBUTION WIDTH CV 17.8 % (11.5-14.5); RED CELL DISTRIBUTION WIDTH SD 60.4 fL (36.4-46.3); WHITE BLOOD COUNT 4.33 K/uL (4.8-10.8)
[2017-03-08] MEDS: METHADONE HCL 10 MG TAB PO SCH ×4 (06:22→23:57)
[2017-03-08] MEDS: DOCUSATE SODIUM 100 MG CAP PO SCH ×2 (07:55→20:00)
[2017-03-08] MEDS: DICLOFENAC SOD 1% GEL 100 GM TUBE EXT SCH ×4 (07:55→21:37)
[2017-03-08] MEDS: MAGNESIUM OXIDE 400 MG TAB PO SCH (07:56)
[2017-03-08] MEDS: METOPROLOL SUCC 25MG EXT REL TAB PO SCH (07:56)
[2017-03-08] MEDS: ENOXAPARIN 80 MG/0.8 ML SYR SQ SCH ×2 (07:57→21:37)
[2017-03-08] MEDS: INSULIN HUMAN REGULAR SC SCH ×4 (08:01→21:00)
[2017-03-08] MEDS: INSULIN GLARGINE SOLOSTAR 100 UNITS/ML 3 ML PEN SC SCH (08:02)
[2017-03-08] MEDS: DIAZEPAM 2MG TAB PO PRN ×2 (11:57→23:58)
[2017-03-08] MEDS ORDERED: NURSING VERBAL MED ORDER ONE (14:45)
[2017-03-08] MEDS ORDERED: LORAZEPAM 0.5 MG TAB PO ONE (14:45)
--- NOTE | 2017-03-08 14:54 | Progress Note ---
Internal Med Progress Note Date of Service: Mar 08, 2017. Provider Documentation: SUBJECTIVE: The patient was seen and examined Denies any symptoms No SOB at rest,occasion cough specially in the morning Remains stable -waiting to be transferred to a facility Having anxiety attack after knowing that he will be discharged tomorrow OBJECTIVE: Vital Signs-as noted below Exam: General-no distress at rest Eyes-normal ENT-Normal Neck-Supple Lungs-clear to auscultate bilaterally Heart-Regular,no murmur appreciated Abdomen-Benign,no masses,bowel sound present Extremities-trace edema bilaterally Neuro-AAO Generally weak Lab data as noted below. ASSESSMENT & PLAN: This is a 56 year old male with a PMH of small cell lung CA - has undergone chemo/radiation, recent diagnosis of bilateral PE, insulin dependent DM2, diabetic polyneuropathy presents with fevers and hypoxia from [facility] EPISODE OF A FIB WITH RVR: -s/p emergent cardioversion in the ICU when rates were not improving after 3 doses IV metoprolol, amiodarone drip and hypotension; has since been off amio -remained in NSR since then -continued on PO metoprolol -patient transferred to medical -Clinically stable and rate is controlled -Rate is controlled and no more episode Acute Hypoxic Respiratory Failure secondary to HCAP Acute hypoxic respiratory failure requiring intubation and mechanical ventilation. Contributing factors may include infection, ARDS, progressive small cell carcinoma lung, recent pulmonary embolism, suspected radiation pneumonitis. Bronchoscopy performed 02/17-results pending. CTA chest 02/18 showed resolution of previously noted PE's. Receiving broad-spectrum antibiotics with Cefepime, Levaquin and Vancomycin and intravenous methylprednisolone. Maintaining oxygenation, albeit with FIO2 of 80% and PEEP. Ongoing management per CCM and Pulmonary Medicine. Later on IV Bactrim was added and discontinued Pulmonary consultation for further input Oncology consulted and input appreciated S/P Extubation 02/22 and Reintubation on 02/24/17 Antibiotics will be deescalated as per On Awake Counselor and Steroid dose adjusted Remains stable on Vent again Has been on IV fluconazole for meño in bronchial washing Try to extubate today Subsequently transferred to Medical floor and doing reasonably well Remains stable and ready to be discharged Continue Oxygen PROGRESSIVE SMALL CELL LUNG CA: -stage IIIb 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 per Onc -s/p several rounds of chemo and a course of radiation -Hem/Onc consulted, appreciate follow up -Palliative care consult, appreciated recs, POLST form completed, patient is DNR /DNI with limited additional interventions -MRI brain negative for mets -Clinically stable further management as per Oncology-has appointment with the Oncologist PREVIOUS RADIATION PNEUMONITIS: -presented during his last admission with probable radiation pneumonitis -patient on prednisone 40mg with a slow taper SUBACUTE BILATERAL PE: -clot size decreased as of recent CT chest -was on heparin, switched back to Lovenox injections -continue Lovenox DM TYPE II: Insulin dependent -patient is reportedly very specific regarding his insulin therapy and diabetes control -was on insulin drip, has since been transitioned to subcutaneous insulin -Glycemic pharmacy consulted, appreciate management -very well controlled per patient HYPONATREMIA: resolved -Hyponatremia: probable SIADH based on labs/urine, euvolemic -serum Osm - 286 -urine Osm - 589 -urine Na - 133 -relative hypophosphatemia, hypokalemia, hypomagnesemia - replete and recheck, stable -patient is auto-diuresing and had significant urine output, was initially evaluated for DI which proved to be negative -continue to monitor lytes closely -Nephrology contacted and have placed patient on a free water restriction of 1500ml; continued Bilateral PE Patient recently diagnosed with bilateral PE Continue Lovenox injections CTA chest 02/18 showed resolution of previously noted PE's Now on Heparin -continue for now Oncology to decide about reasonable anticoagulation Has been on Lovenox 80mg BID Insulin Dependent DM2 Patient is very specific regarding his insulin therapy He uses NPH 70/30 - was discharged with around 70 units in the AM and 90 units in the PM On his summary from [facility], he was requiring over 100 units BID Try 70 units BID for now, monitor for hypoglycemia, which was an issue during previous admission Consulted pharmacy glycemic control-reasonably stable GI / NUTRITION Receiving pantoprazole for GI prophylaxis. Receiving enteral nutrition via GT. Started on TPN and now on Enteral feeding Change to oral when appropriate Eating well Electrolytes Imbalance Hyponatremia and hypophosphatemia Replace and monitor-normalized VTE PROPHYLAXIS Receiving therapeutic dosing of enoxaparin due to prior history of VTE. Has been on IV heparin RESUSCITATION STATUS DNR DISPOSITION Critically ill. Discharge disposition to be determined. . Consultants: Pulmonary Medicine Critical Care Medicine Medical Oncology . Procedures: cardiac monitoring endotracheal intubation mechanical ventilation right internal jugular central venous catheter arterial line IV medications Waiting for placement Likely discahreg tomorrow Vital Signs: Date Time Temp Pulse Resp B/P (MAP) Pulse Ox O2 Delivery O2 Flow Rate FiO2 03/08/17 12:31 Nasal Cannula 5.0 03/08/17 11:10 36.9 73 18 111/67 (82) 96 5.0 03/08/17 07:26 36.6 77 18 99/62 (74) 95 5.0 03/08/17 03:30 36.7 78 20 103/58 (73) 98 Nasal Cannula 5.0 03/08/17 00:00 95 Nasal Cannula 5.0 03/07/17 23:48 37.0 92 20 119/69 (86) 97 Nasal Cannula 5.0 03/07/17 20:27 37.0 80 18 109/67 (81) 96 Nasal Cannula 5.0 03/07/17 16:00 92 Nasal Cannula 5.0 03/07/17 15:42 36.9 92 18 147/80 (102) 91 Nasal Cannula 5.0 Lab Results: Results Past 24 Hours Test 03/07/17 16:36 03/07/17 19:54 03/07/17 23:30 03/08/17 05:17 Range/Units Bedside Glucose 118 99 71 70-99 mg/dl White Blood Count 4.33 4.8-10.8 K/uL Red Blood Count 3.25 4.7-6.1 M/uL Hemoglobin 9.2 14.0-18.0 g/dL Hematocrit 29.9 42-52 % Mean Corpuscular Volume 92.0 80-100 fL Mean Corpuscular Hemoglobin 28.3 25-34 pg Mean Corpuscular Hemoglobin Concent 30.8 32-36 g/dl RDW Standard Deviation 60.4 36.4-46.3 fL RDW Coefficient of Variation 17.8 11.5-14.5 % Platelet Count 218 130-400 K/uL Mean Platelet Volume 10.1 7.4-10.4 fL Test 03/08/17 07:49 03/08/17 11:31 03/08/17 12:47 Range/Units Bedside Glucose 108 180 70-99 mg/dl Heparin Anti-Xa Act, Low Molec Wt 0.59 0 - <0.10 IU/ML
[2017-03-08] MEDS ORDERED: SODIUM CHLORIDE 0.65% NA SOLN 45 ML (OCEAN) PRN (20:00)
[2017-03-09] VITALS: BP 127/69; PULSE 70; TEMP 36.7; O2SAT 98
[2017-03-09 04:38] VITALS: BP 114/68; PULSE 87; TEMP 37.2; O2SAT 93
[2017-03-09] MEDS: METHADONE HCL 10 MG TAB PO SCH ×2 (06:07→12:18)
[2017-03-09 07:40] VITALS: BP 102/63; PULSE 78; TEMP 37.1; O2SAT 97
[2017-03-09] MEDS: DOCUSATE SODIUM 100 MG CAP PO SCH (07:59)
[2017-03-09] MEDS: METOPROLOL SUCC 25MG EXT REL TAB PO SCH (08:00)
[2017-03-09] MEDS: DICLOFENAC SOD 1% GEL 100 GM TUBE EXT SCH ×2 (08:01→14:38)
[2017-03-09] MEDS: ENOXAPARIN 80 MG/0.8 ML SYR SQ SCH (08:01)
[2017-03-09] MEDS: MAGNESIUM OXIDE 400 MG TAB PO SCH (08:01)
[2017-03-09] MEDS: DIAZEPAM 2MG TAB PO PRN (08:06)
[2017-03-09 08:30] VITALS: O2SAT 97
[2017-03-09] MEDS: INSULIN HUMAN REGULAR SC SCH ×2 (08:49→12:24)
[2017-03-09] MEDS: INSULIN GLARGINE SOLOSTAR 100 UNITS/ML 3 ML PEN SC SCH (08:50)
[2017-03-09 09:25] LABS: HEMATOCRIT 31.2 % (42-52); HEMOGLOBIN 9.6 g/dL (14.0-18.0); MEAN CELL VOLUME 91.8 fL (80-100); MEAN CORPUSCULAR HEMOGLOBIN 28.2 pg (25-34); MEAN CORPUSCULAR HGB CONC 30.8 g/dl (32-36); MEAN PLATELET VOLUME 9.9 fL (7.4-10.4); PLATELET COUNT 215 K/uL (130-400); RED CELL DISTRIBUTION WIDTH SD 60.9 fL (36.4-46.3); WHITE BLOOD COUNT 3.88 K/uL (4.8-10.8)
[2017-03-09 10:08] LABS: CALCIUM 8.5 mg/dl (8.5-10.1); CREATININE 0.63 mg/dl (0.60-1.40); POTASSIUM 3.7 mmol/L (3.5-5.1)
--- NOTE | 2017-03-09 10:37 | Progress Note ---
Internal Med Progress Note Date of Service: Mar 09, 2017. Provider Documentation: SUBJECTIVE: The patient was seen and examined Denies any symptoms No SOB at rest,occasion cough specially in the morning Remains stable -waiting to be transferred to a facility No new symptoms If accepted and has a bed at [facility] will discharge today OBJECTIVE: Vital Signs-as noted below Exam: General-no distress at rest Eyes-normal ENT-Normal Neck-Supple Lungs-Minimal wheezing right lung Heart-Regular,no murmur appreciated Abdomen-Benign,no masses,bowel sound present Extremities-trace edema bilaterally Neuro-AAO Generally weak Lab data as noted below. ASSESSMENT & PLAN: This is a 56 year old male with a PMH of small cell lung CA - has undergone chemo/radiation, recent diagnosis of bilateral PE, insulin dependent DM2, diabetic polyneuropathy presents with fevers and hypoxia from [facility] EPISODE OF A FIB WITH RVR: -s/p emergent cardioversion in the ICU when rates were not improving after 3 doses IV metoprolol, amiodarone drip and hypotension; has since been off amio -remained in NSR since then -continued on PO metoprolol -patient transferred to medical -Clinically stable and rate is controlled -Rate is controlled and no more episode Acute Hypoxic Respiratory Failure secondary to HCAP Acute hypoxic respiratory failure requiring intubation and mechanical ventilation. Contributing factors may include infection, ARDS, progressive small cell carcinoma lung, recent pulmonary embolism, suspected radiation pneumonitis. Bronchoscopy performed 02/17-results pending. CTA chest 02/18 showed resolution of previously noted PE's. Receiving broad-spectrum antibiotics with Cefepime, Levaquin and Vancomycin and intravenous methylprednisolone. Maintaining oxygenation, albeit with FIO2 of 80% and PEEP. Ongoing management per CCM and Pulmonary Medicine. Later on IV Bactrim was added and discontinued Pulmonary consultation for further input Oncology consulted and input appreciated S/P Extubation 02/22 and Reintubation on 02/24/17 and subsequently Extubated Antibiotics will be deescalated as per Flat Bed Operator and Steroid dose adjusted Remains stable since extubation Clinically much better and stable to be discharged Continue Oxygen PROGRESSIVE SMALL CELL LUNG CA: -stage IIIb 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 per Onc -s/p several rounds of chemo and a course of radiation -Hem/Onc consulted, appreciate follow up -Palliative care consult, appreciated recs, POLST form completed, patient is DNR /DNI with limited additional interventions -MRI brain negative for mets -Clinically stable further management as per Oncology-has appointment with the Oncologist -Has an appointment with Dr Jolynn Gale on 03/12/17 PREVIOUS RADIATION PNEUMONITIS: -presented during his last admission with probable radiation pneumonitis -patient on prednisone 40mg with a slow taper SUBACUTE BILATERAL PE: -clot size decreased as of recent CT chest -was on heparin, switched back to Lovenox injections -continue Lovenox DM TYPE II: Insulin dependent -patient is reportedly very specific regarding his insulin therapy and diabetes control -was on insulin drip, has since been transitioned to subcutaneous insulin -Glycemic pharmacy consulted, appreciate management -very well controlled per patient HYPONATREMIA: resolved -Hyponatremia: probable SIADH based on labs/urine, euvolemic -serum Osm - 286 -urine Osm - 589 -urine Na - 133 -relative hypophosphatemia, hypokalemia, hypomagnesemia - replete and recheck, stable -patient is auto-diuresing and had significant urine output, was initially evaluated for DI which proved to be negative -continue to monitor lytes closely -Nephrology contacted and have placed patient on a free water restriction of 1500ml; continued -Sodium is normalized Bilateral PE Patient recently diagnosed with bilateral PE Continue Lovenox injections CTA chest 02/18 showed resolution of previously noted PE's Now on Heparin -continue for now Oncology to decide about reasonable anticoagulation Has been on Lovenox 80mg BID Insulin Dependent DM2 Patient is very specific regarding his insulin therapy He uses NPH 70/30 - was discharged with around 70 units in the AM and 90 units in the PM On his summary from [facility], he was requiring over 100 units BID Try 70 units BID for now, monitor for hypoglycemia, which was an issue during previous admission Consulted pharmacy glycemic control-reasonably stable GI / NUTRITION Receiving pantoprazole for GI prophylaxis. Receiving enteral nutrition via GT. Started on TPN and now on Enteral feeding Change to oral when appropriate Eating well Electrolytes Imbalance Hyponatremia and hypophosphatemia Replace and monitor-normalized VTE PROPHYLAXIS Receiving therapeutic dosing of enoxaparin due to prior history of VTE. Has been on IV heparin RESUSCITATION STATUS DNR DISPOSITION Critically ill. Discharge disposition to be determined. . Consultants: Pulmonary Medicine Critical Care Medicine Medical Oncology . Procedures: cardiac monitoring endotracheal intubation mechanical ventilation right internal jugular central venous catheter arterial line IV medications Waiting for placement Likely discharge today -if he has a bed Vital Signs: Date Time Temp Pulse Resp B/P (MAP) Pulse Ox O2 Delivery O2 Flow Rate FiO2 03/09/17 07:40 37.1 78 20 102/63 (76) 97 5.0 03/09/17 04:38 37.2 87 16 114/68 (83) 93 Nasal Cannula 5.0 03/09/17 00:00 36.7 70 20 127/69 (88) 98 4.0 03/09/17 00:00 Nasal Cannula 4.0 03/08/17 19:30 37.1 91 18 119/67 (84) 92 Nasal Cannula 3.0 03/08/17 15:50 96 Nasal Cannula 5.0 03/08/17 15:26 36.8 75 18 106/65 (79) 96 Nasal Cannula 5.0 03/08/17 12:31 Nasal Cannula 5.0 03/08/17 11:10 36.9 73 18 111/67 (82) 96 5.0 Lab Results: Results Past 24 Hours Test 03/08/17 11:31 03/08/17 12:47 03/08/17 17:01 03/08/17 20:18 Range/Units Bedside Glucose 180 133 135 70-99 mg/dl Heparin Anti-Xa Act, Low Molec Wt 0.59 0 - <0.10 IU/ML Test 03/09/17 07:50 03/09/17 09:05 Range/Units Bedside Glucose 128 70-99 mg/dl White Blood Count 3.88 4.8-10.8 K/uL Red Blood Count 3.40 4.7-6.1 M/uL Hemoglobin 9.6 14.0-18.0 g/dL Hematocrit 31.2 42-52 % Mean Corpuscular Volume 91.8 80-100 fL Mean Corpuscular Hemoglobin 28.2 25-34 pg Mean Corpuscular Hemoglobin Concent 30.8 32-36 g/dl RDW Standard Deviation 60.9 36.4-46.3 fL RDW Coefficient of Variation 18.0 11.5-14.5 % Platelet Count 215 130-400 K/uL Mean Platelet Volume 9.9 7.4-10.4 fL Sodium Level 136 136-145 mmol/L Potassium Level 3.7 3.5-5.1 mmol/L Chloride Level 100 98-107 mmol/L Carbon Dioxide Level 33 21-32 mmol/L Anion Gap 4.0 3-11 mmol/L Blood Urea Nitrogen 11 7-18 mg/dl Creatinine 0.63 0.60-1.40 mg/dl Est Creatinine Clear Calc Drug Dose 191.8 ml/min Estimated GFR () 129.5 Estimated GFR (Non- 111.7 BUN/Creatinine Ratio 16.9 10-20 Random Glucose 212 70-99 mg/dl Calcium Level 8.5 8.5-10.1 mg/dl
[2017-03-09] MEDS ORDERED: TRAM-10 PO (15:03)
[2017-03-09] MEDS ORDERED: INSDGIPEN SC (15:03)
[2017-03-09] MEDS ORDERED: MTH10 PO (15:03)
[2017-03-09] MEDS ORDERED: PRD10 PO (15:03)
[2017-03-09] MEDS ORDERED: DIAZ2TAB PO (15:03)
[2017-03-09] MEDS ORDERED: VLTG EXT (15:03)
[2017-03-09] MEDS ORDERED: INSUINJ7 SC (15:03)
[2017-03-09] MEDS ORDERED: LVNIS80 SQ (15:03)
[2017-03-09] MEDS ORDERED: TPRSR25 PO (15:03)
[2017-03-09] MEDS ORDERED: MGNO400 PO (15:03)
[2017-03-09] MEDS ORDERED: NTRSLP4 SL (15:03)
--- NOTE | 2017-03-09 15:14 | Discharge Instructions ---
Discharge Instructions Date of Service Mar 09, 2017. Admission Reason for Admission: Hypoxia Discharge Discharge Diagnosis / Problem: Progressive Small Cell Carcinoma of Lung, Respiratory failure,DM,AF Discharge Goals Goal(s): Prevent Disease Progression Activity Recommendations Activity Level: Up Ad Farzana, Assistance Required Therapies: Physical Therapy, Occupational Therapy . Additional Information Patient informed of condition: Yes Advance Directives: No DNR: Yes Level of Care: Skilled Communicable Disease: No Prognosis: Stable Oxygen at (LPM): 2-3 liters/min Via NC-continously Em Catheter: No Instructions / Follow-Up Instructions / Follow-Up DR Jolynn Gale on 03/12/17-Please keep this appointment.Dr Zamudio's office will call with appointment Current Hospital Diet Patient's current hospital diet: AHA Diet (Heart Healthy), Diabetes Type 2 Diet Discharge Diet Recommended Diet: AHA Diet (Heart Healthy), Diabetes Type 2 Diet Fluid Restriction: 1500 ml (6 cups) Pending Studies Studies pending at discharge: no Laboratory Results Hemoglobin A1c Test 01/31/17 07:02 Range/Units Estimated Average Glucose 137 mg/dl Hemoglobin A1c 6.4 H 4.5-5.6 % Medical Emergencies . Who to Call and When: Medical Emergencies: If at any time you feel your situation is an emergency, please call 911 immediately. . Non-Emergent Contact Non-Emergency issues call your: Primary Care Provider . Past History Medical & Surgical History: (1) Sepsis (2) Pulmonary emboli (3) Healthcare-associated pneumonia (4) Hypoxia (5) Primary cancer of left upper lobe of lung (6) Chronic back pain (7) History of back surgery . "Provider Documentation" section prepared by Avtar Sarakr. . Core Measure Problem Core Measures: None [place] Drug Monitoring Program Drug Monitoring Findings: Methadone,Diazepam and Tramadol sre prescribed by the PCP .Methadone dose is increased to 15 mg BID
[2017-03-09 15:26] VITALS: BP 102/63; PULSE 78; TEMP 37.1; O2SAT 97
--- NOTE | 2017-03-10 07:53 | Discharge Summary ---
Discharge Summary Date of Service Mar 10, 2017. Discharge Summary Admission Date: Feb 17, 2017 at 06:31 Discharge Date: Mar 09, 2017 Discharge Disposition: [facility] facility Principal Diagnosis: Progressive Small Cell Carcinoma of Lung,Respiratory failure,DM,AF Secondary Diagnoses/Problems: Please see H&P and Hospital Progress note Procedures: cardiac monitoring endotracheal intubation mechanical ventilation right internal jugular central venous catheter arterial line IV medications . Consultations: Pulmonary Medicine, Critical Care Medicine ,Palliative care,Nephrology and Medical Oncology . Medication Reconciliation New Medications: Diclofenac Sod (Voltaren) 100 Appln/100 Gm Gel 1 APPLN EXT TID for 30 Days, #1 TUBE Enoxaparin (Lovenox) 80 Mg/0.8 Ml Inj 80 MG SQ Q12H for 30 Days, #60 Insulin Glargine (Lantus Solostar) 100 Unit/Ml Inj 50 UNITS SC QAM for 30 Days, #1 VIAL Insulin Regular (Human) (Novolin R U-100) 100 Unit/Ml Inj 15 UNITS SC TID for 30 Days, #1 VIAL Three times daily before meals Magnesium Oxide (Magnesium-Oxide) 400 Mg Tab 400 MG PO QAM for 30 Days, #60 TAB Methadone HCl (Methadone HCl) 10 Mg Tab 15 MG PO Q6 for 7 Days, #42 TAB Metoprolol Succinate (Metoprolol Succinate ER) 25 Mg Tabcr 12.5 MG PO QAM for 30 Days, #30 Nitroglycerin (Nitrostat) 0.4 Mg/1 Tab Subl 0.4 MG SL PRN PRN for Chest Pain for 30 Days, #25 Prednisone (Prednisone) 10 Mg Tab 10 MG PO DAILY@0800 for 7 Days, #7 TAB Continued Medications: Aspirin (Aspirin Ec) 325 Mg Tab 325 MG PO QAM Biotin W/ Vitamins C & E (Hair/Skin/Nails 1250-7.5-7.5 Mcg-mg-Unt) 1 Chw Chw 1 TAB PO DAILY Bisacodyl (Bisacodyl) 10 Mg Sup 10 MG RE DAILY PRN for Constipation Cholecalciferol (Vitamin D) 5,000 Unit Tab 5000 UNITS PO DAILY Diazepam (Valium) 2 Mg Tab 2 MG PO BID PRN for Anxiety/Agitation for 10 Days, #20 TAB (This prescription has been renewed) Docusate Sodium (Docusate Sodium) 100 Mg Cap 100 MG PO BID for 7 Days, #14 CAP Levalbuterol Hcl (Levalbuterol) 1.25 Mg/0.5 Ml Neb 1 AMP INH Q6H Magnesium Hydroxide (Milk of Magnesia) 30 Ml Susp 30 ML PO DAILY PRN for Constipation Ondansetron Hcl (Zofran) 8 Mg Tab 8 MG PO Q8 PRN for Nausea, TAB Oxymetazoline Hcl (Afrin 0.05% Nasal [place]) 1 Btl [place] 1 BTL NA DIRECTED PRN for CONGESTION, BTL Polyethylene Glycol 3350 (Miralax) 1 Pow Pow 17 GM PO QDL PRN for Constipation, #255 GM Sennosides-Docusate Sodium (Senokot S) 1 Tab Tab 1 TAB PO QDL PRN for Constipation, TAB Sodium Phosphate/Biphosphate (Fleet Enema) Lacey 1 EA AK DAILY PRN for Constipation, BTL Tramadol (Ultram) 50 Mg Tab 50 MG PO Q6H PRN for Pain for 10 Days, #40 TAB (This prescription has been renewed) Vitamin E (E-400) 400 Unit Cap 400 MG PO TIDM Zolpidem Tartrate (Ambien) 10 Mg Tab 10 MG PO HS, TAB Discontinued Medications: Enoxaparin (Lovenox) 120 Mg/0.8 Ml Inj 120 MG SQ Q12H, SYR Furosemide (Lasix) 20 Mg Tab 20 MG PO DAILY PRN for SWELLING, TAB Insulin Human Regular (Humulin R) 1 Ea Inj 1 DOSE SQ ACHS PRN for SLIDING SCALE Insulin Isophane (Human) (Novolin N U-100) 100 Unit/Ml Inj 70-90 SQ BIDM Levofloxacin (Levaquin) 250 Mg Tab 750 MG PO DAILY for 10 Days, #30 TAB STARTED 02/10/17 Methadone Hcl (Dolophine) 10 Mg Tab 10 MG PO Q6H, TAB Prednisone (Prednisone) 10 Mg Tab 50 MG PO DAILY, TAB TAPER DOSE 50 MG-START 02/14/17, STOP 02/20/17 40 MG-START 02/21/17, STOP 02/27/17 30 MG-START 02/28/17, STOP 03/06/17 20 MG-START 03/07/17, STOP 03/13/17 10 MG-START 03/14/17, STOP 03/20/17 Admission Information HPI (per Admitting provider): This is a 56 year old male with a PMH of small cell lung CA - has undergone chemo/radiation, hx. of upper extremity DVT, insulin dependent DM2, diabetic polyneuropathy - was recently admitted to [facility] due to bilateral PEs and was placed back on Lovenox - had a long stay in the hospital to treat the PEs, pneumonia as well as radiation pneumonitis. He was discharged on 02/09 to [facility]. States he was doing well there the first few days, but tells me that a nebulizer that he was getting over there made him worse. As per records, he was becoming febrile and hypoxic prior to arrival. They tried a non- rebreather bringing his O2 sats to the upper 80s. He was sent via EMS to the ER ; in the ER patient was febrile, hypoxic - refused nebulizer treatments, refused bipap mask. Currently on a face-mask; saturating in the 88-92 range; but drops with any type of exertion. Denies chest pain/palpitations. Past Medical/Surgical History Medical Problems: (1) Anxiety Status: Chronic (2) Chronic back pain Status: Chronic (3) Insulin dependent type 2 diabetes mellitus Status: Chronic Surgical Problems: (1) History of back surgery Status: Resolved Family History Diabetes mellitus Social History Smoking Status: Former Smoker Marital Status: single Occupational Status: unemployed Multi-Drug Resistant Organisms History of MDRO: No Allergies Coded Allergies: Amoxicillin (Verified Allergy, Intermediate, sob, 02/17/17) PER CONVERSATION WITH ANSELMO AQUINO PA-C - SHE SPOKE WITH PATIENT WHO STATES THAT THIS IS NOT A TRUE ALLERGY HE HAS TOLERATED PENCILLINS IN THE PAST. TOLERATES ROCEPHIN X 5 DOSES AN OUTPATIENT. Atorvastatin (Verified Allergy, Intermediate, diarrhea, 02/17/17) Acetaminophen (Verified Allergy, Unknown, PT STATES "IT INTENSIFIES EFFECT ", 02/17/17) Clindamycin (Verified Allergy, Unknown, SHORTNESS OF BREATH, 02/17/17) Escitalopram (Verified Allergy, Unknown, GI UPSET, 02/17/17) Gabapentin (Verified Allergy, Unknown, CONSTIPATION, 02/17/17) Insulin Aspart (Verified Allergy, Unknown, ALLERGIC TO PRESERVATIVES IN NOVOLOG - OK WITH REGULAR/NPH, 02/17/17) Morphine (Verified Allergy, Unknown, DID NOT TOLERATE PER PT, 02/17/17) Propoxyphene (Verified Allergy, Unknown, "DID CRAZY THINGS", 02/17/17) Sitagliptin (Verified Allergy, Unknown, UNKNOWN RXN, 02/17/17) Adhesives (Verified Adverse Reaction, Unknown, "rips his skin off", ) Dextromethorphan (Verified Adverse Reaction, Unknown, HARD TO BREATHE?, ) Guaifenesin (Verified Adverse Reaction, Unknown, HARD TO BREATHE?, ) Metformin (Verified Adverse Reaction, Unknown, PT STATES "DID NOT WORK", 02/17/17) Home Medications Scheduled Aspirin (Aspirin Ec), 325 MG PO QAM Biotin W/ Vitamins C & E (Hair/Skin/Nails 1250-7.5-7.5 Mcg-mg-Unt), 1 TAB PO DAILY Cholecalciferol (Vitamin D), 5,000 UNITS PO DAILY Docusate Sodium (Docusate Sodium), 100 MG PO BID Enoxaparin (Lovenox), 120 MG SQ Q12H Insulin Isophan/Regular (Humulin 70/30), 105 UNITS SC BIDM Levalbuterol Hcl (Levalbuterol), 1 AMP INH Q6H Levofloxacin (Levaquin), 750 MG PO DAILY Methadone Hcl (Dolophine), 10 MG PO Q6H Prednisone (Prednisone), 50 MG PO DAILY Vitamin E (E-400), 400 MG PO TIDM Zolpidem Tartrate (Ambien), 10 MG PO HS Scheduled PRN Bisacodyl (Bisacodyl), 10 MG RE DAILY PRN for Constipation Diazepam (Valium), 2 MG PO BID PRN for Anxiety/Agitation Furosemide (Lasix), 20 MG PO DAILY PRN for SWELLING Insulin Human Regular (Humulin R), 1 DOSE SQ ACHS PRN for SLIDING SCALE Magnesium Hydroxide (Milk of Magnesia), 30 ML PO DAILY PRN for Constipation Ondansetron Hcl (Zofran), 8 MG PO Q8 PRN for Nausea Oxymetazoline Hcl (Afrin 0.05% Nasal [place]), 1 BTL NA DIRECTED PRN for CONGESTION Polyethylene Glycol 3350 (Miralax), 17 GM PO QDL PRN for Constipation Sennosides-Docusate Sodium (Senokot S), 1 TAB PO QDL PRN for Constipation Sodium Phosphate/Biphosphate (Fleet Enema), 1 EA AK DAILY PRN for Constipation Tramadol (Ultram), 50 MG PO Q6H PRN for Pain Review of Systems Constitutional: + fever, + chills, + sweats, No weight loss, No weakness, No fatigue Eyes: No worsening of vision ENT: No sore throat Respiratory: + cough, + sputum, + shortness of breath, + dyspnea on exertion, + dyspnea at rest, No wheezing, No hemoptysis Cardiovascular: + edema, No chest pain, No palpitations Abdomen: No pain, No nausea, No vomiting, No diarrhea, No constipation, No GI bleeding Musculoskeletal: + swelling, No joint pain, No muscle pain, No calf pain Genitourinary - Male: No hematuria, No dysuria, No urinary frequency, No urinary urgency Neurologic: + numbness/tingling (intermittently bilateral LE), No paralysis, No weakness, No vertigo, No balance problems Psychiatric: + anxiety (improved with medications), No depression symptoms, No insomnia Endocrine: No fatigue Hematologic / Lymphatic: No abnormal bleeding/bruising Integumentary: No rash Allergic / Immunologic: No environmental allergies, No seasonal allergies Physical Ex - H&P Physical Exam Vital Signs Date Time Temp Pulse Resp B/P (MAP) Pulse Ox O2 Delivery O2 Flow Rate FiO2 02/17/17 05:01 115 18 119/73 88 Non-Rebreather 15.0 02/17/17 05:01 115 19 119/73 93 Non-Rebreather Manual 02/17/17 04:17 38.8 125 20 147/90 87 Non-Rebreather 02/17/17 04:17 88 Non-Rebreather 02/17/17 04:10 128 General Appearance: + mild distress, + obese Head: normocephalic, atraumatic Eyes: normal inspection ENT: hearing grossly normal Neck: supple Respiratory/Chest: no accessory muscle use, + respiratory distress (mild respiratory distress), + decreased breath sounds Cardiovascular: no gallop, no JVD, no murmur, normal peripheral pulses, + tachycardia Abdomen/GI: normal bowel sounds, non tender, soft Extremities/Musculoskelatal: + pertinent finding (+1 pitting edema b/l LE) Neurologic/Psych: production repairer II-XII nml as tested, no motor/sensory deficits, alert, normal mood/affect, oriented x 3 Skin: normal color Lymphatic: no adenopathy Diagnostics - H&P Diagnostics Laboratory Results Results Past 24 Hours Test 02/17/17 04:19 02/17/17 04:28 02/17/17 04:35 02/17/17 04:44 Range/Units White Blood Count 12.75 4.8-10.8 K/uL Red Blood Count 3.55 4.7-6.1 M/uL Hemoglobin 10.4 14.0-18.0 g/dL Hematocrit 33.5 42-52 % Mean Corpuscular Volume 94.4 80-100 fL Mean Corpuscular Hemoglobin 29.3 25-34 pg Mean Corpuscular Hemoglobin Concent 31.0 32-36 g/dl Platelet Count 282 130-400 K/uL Mean Platelet Volume 9.9 7.4-10.4 fL Neutrophils (%) (Auto) 88.8 % Lymphocytes (%) (Auto) 3.5 % Monocytes (%) (Auto) 6.2 % Eosinophils (%) (Auto) 0.6 % Basophils (%) (Auto) 0.2 % Neutrophils # (Auto) 11.33 1.4-6.5 K/uL Lymphocytes # (Auto) 0.44 1.2-3.4 K/uL Monocytes # (Auto) 0.79 0.11-0.59 K/uL Eosinophils # (Auto) 0.08 0-0.5 K/uL Basophils # (Auto) 0.02 0-0.2 K/uL RDW Standard Deviation 62.0 36.4-46.3 fL RDW Coefficient of Variation 17.9 11.5-14.5 % Immature Granulocyte % (Auto) 0.7 % Immature Granulocyte # (Auto) 0.09 0.00-0.02 K/uL Nucleated RBC Absolute Count (auto) 0.05 0-0 K/uL Nucleated Red Blood Cells % 0.4 % Polychromasia 1+ Tear Drop Cells OCCASIONAL Prothrombin Time 12.0 9.0-12.0 SECONDS Prothromb Time International Ratio 1.1 0.9-1.1 Sodium Level 132 136-145 mmol/L Potassium Level 4.2 3.5-5.1 mmol/L Chloride Level 96 98-107 mmol/L Carbon Dioxide Level 30 21-32 mmol/L Anion Gap 6.0 3-11 mmol/L Blood Urea Nitrogen 19 7-18 mg/dl Creatinine 0.97 0.60-1.40 mg/dl Est Creatinine Clear Calc Drug Dose 131.3 ml/min Estimated GFR () 102.2 Estimated GFR (Non- 88.1 BUN/Creatinine Ratio 19.9 10-20 Random Glucose 106 70-99 mg/dl Calcium Level 9.3 8.5-10.1 mg/dl Magnesium Level 1.7 1.8-2.4 mg/dl Total Bilirubin 0.3 0.2-1 mg/dl Aspartate Amino Transf (AST/SGOT) 61 15-37 U/L Alanine Aminotransferase (ALT/SGPT) 20 12-78 U/L Alkaline Phosphatase 96 45-117 U/L Troponin I < 0.015 0-0.045 ng/ml Pro-B-Type Natriuretic Peptide 247 0-900 pg/ml Total Protein 6.9 6.4-8.2 gm/dl Albumin 2.2 3.4-5.0 gm/dl Globulin 4.7 2.5-4.0 gm/dl Albumin/Globulin Ratio 0.5 0.9-2 Arterial Blood pH 7.48 7.35-7.45 Arterial Blood Partial Pressure CO2 38 35-46 mmHg Arterial Blood Partial Pressure O2 61 80-95 mm/Hg Arterial Blood HCO3 28 19-24 mmol/L Arterial Blood Oxygen Saturation 90.1 90-95 % Arterial Blood Base Excess 4.0 -9-1.8 mEq/L Arterial Blood Gas Delivery 15L Devin Test POS POS Bedside Lactic Acid Venous 1.21 0.90-1.70 mmol/L Microbiology Results 02/17/17 Blood Culture, Received Pending 02/17/17 Blood Culture, Received Pending EKG Sinus tachycardia Possible Left atrial enlargement Impression - H&P Impression Assessment and Plan This is a 56 year old male with a PMH of small cell lung CA - has undergone chemo/radiation, recent diagnosis of bilateral PE, insulin dependent DM2, diabetic polyneuropathy presents with fevers and hypoxia from [facility] Acute Hypoxic Respiratory Failure secondary to HCAP patient presents with fevers, hypoxia CXR appears worse than prior currently requiring non-rebreather to achieve an O2 saturation in the low 90s O2 sats are dropping with exertion will check lactic acid, procalcitonin blood cultures pending will start Cefepime, Levaquin and Vancomycin pulmonary consultation for further input Radiation Pneumonitis patient also presented during last admission with likely radiation pneumonitis as per pulmonology, patient to be on prednisone 60mg with a slow taper patient was recently tapered down to 50mg, and his condition worsened will go back to the prednisone 60mg dose and consult pulmonology for further input Bilateral PE patient recently diagnosed with bilateral PE will continue Lovenox injections he takes these in the R LE thigh/buttocks region Insulin Dependent DM2 patient is very specific regarding his insulin therapy he uses NPH 70/30 - was discharged with around 70 units in the AM and 90 units in the PM on his summary from [facility], he was requiring over 100 units BID will try 70 units BID for now, monitor for hypoglycemia, which was an issue during previous admission consulted pharmacy glycemic control DVT ppx Lovenox FULL CODE VTE Prophylaxis VTE Risk Assessment Done? Y/N: Yes Risk Level: High Given or contraindicated: Other Anticoagulation Physical Exam (per Admitting): General Appearance: + mild distress, + obese Head: normocephalic, atraumatic Eyes: normal inspection ENT: hearing grossly normal Neck: supple Respiratory/Chest: no accessory muscle use, + respiratory distress (mild respiratory distress), + decreased breath sounds Cardiovascular: no gallop, no JVD, no murmur, normal peripheral pulses, + tachycardia Abdomen/GI: normal bowel sounds, non tender, soft Extremities/Musculoskelatal: + pertinent finding (+1 pitting edema b/l LE) Neurologic/Psych: production repairer II-XII nml as tested, no motor/sensory deficits, alert , normal mood/affect, oriented x 3 Skin: normal color Lymphatic: no adenopathy Hospital Course This is a 56 year old male with a PMH of small cell lung CA - has undergone chemo/radiation, recent diagnosis of bilateral PE, insulin dependent DM2, diabetic polyneuropathy [facility] EPISODE OF A FIB WITH RVR: -s/p emergent cardioversion in the ICU when rates were not improving after 3 doses IV metoprolol, amiodarone drip and hypotension; has since been off amio -remained in NSR since then -continued on PO metoprolol -patient transferred to medical -Clinically stable and rate is controlled -Rate is controlled and no more episode Acute Hypoxic Respiratory Failure secondary to HCAP Acute hypoxic respiratory failure requiring intubation and mechanical ventilation. Contributing factors may include infection, ARDS, progressive small cell carcinoma lung, recent pulmonary embolism, suspected radiation pneumonitis. Bronchoscopy performed 02/17-results pending. CTA chest 02/18 showed resolution of previously noted PE's. Receiving broad-spectrum antibiotics with Cefepime, Levaquin and Vancomycin and intravenous methylprednisolone. Maintaining oxygenation, albeit with FIO2 of 80% and PEEP. Ongoing management per CCM and Pulmonary Medicine. Later on IV Bactrim was added and discontinued Pulmonary consultation for further input Oncology consulted and input appreciated S/P Extubation 02/22 and Reintubation on 02/24/17 and subsequently Extubated Antibiotics will be deescalated as per Count Team Member and Steroid dose adjusted Remains stable since extubation Clinically much better and stable to be discharged Continue Oxygen PROGRESSIVE SMALL CELL LUNG CA: -stage IIIb 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 per Onc -s/p several rounds of chemo and a course of radiation -Hem/Onc consulted, appreciate follow up -Palliative care consult, appreciated recs, POLST form completed, patient is DNR /DNI with limited additional interventions -MRI brain negative for mets -Clinically stable further management as per Oncology-has appointment with the Oncologist -Has an appointment with Dr Jolynn Gale on 03/12/17 PREVIOUS RADIATION PNEUMONITIS: -presented during his last admission with probable radiation pneumonitis -patient on prednisone 40mg with a slow taper SUBACUTE BILATERAL PE: -clot size decreased as of recent CT chest -was on heparin, switched back to Lovenox injections -continue Lovenox DM TYPE II: Insulin dependent -patient is reportedly very specific regarding his insulin therapy and diabetes control -was on insulin drip, has since been transitioned to subcutaneous insulin -Glycemic pharmacy consulted, appreciate management -very well controlled per patient HYPONATREMIA: resolved -Hyponatremia: probable SIADH based on labs/urine, euvolemic -serum Osm - 286 -urine Osm - 589 -urine Na - 133 -relative hypophosphatemia, hypokalemia, hypomagnesemia - replete and recheck, stable -patient is auto-diuresing and had significant urine output, was initially evaluated for DI which proved to be negative -continue to monitor lytes closely -Nephrology contacted and have placed patient on a free water restriction of 1500ml; continued -Sodium is normalized Bilateral PE Patient recently diagnosed with bilateral PE Continue Lovenox injections CTA chest 02/18 showed resolution of previously noted PE's Now on Heparin -continue for now Oncology to decide about reasonable anticoagulation Has been on Lovenox 80mg BID Insulin Dependent DM2 Patient is very specific regarding his insulin therapy He uses NPH 70/30 - was discharged with around 70 units in the AM and 90 units in the PM On his summary from [facility], he was requiring over 100 units BID Try 70 units BID for now, monitor for hypoglycemia, which was an issue during previous admission Consulted pharmacy glycemic control-reasonably stable GI / NUTRITION Receiving pantoprazole for GI prophylaxis. Receiving enteral nutrition via GT. Started on TPN and now on Enteral feeding Change to oral when appropriate Eating well Electrolytes Imbalance Hyponatremia and hypophosphatemia Replace and monitor-normalized VTE PROPHYLAXIS Receiving therapeutic dosing of enoxaparin due to prior history of VTE. Has been on IV heparin RESUSCITATION STATUS DNR DISPOSITION Critically ill. Discharge disposition to be determined. . Consultants: Pulmonary Medicine Critical Care Medicine Medical Oncology . Procedures: cardiac monitoring endotracheal intubation mechanical ventilation right internal jugular central venous catheter arterial line IV medications Waiting for placement Likely discharge today -if he has a bed Total time spent on discharge = 40 minutes This includes examination of the patient, discharge planning, medication reconciliation, and communication with other providers. Discharge Instructions Date of Service Mar 09, 2017. Admission Reason for Admission: Hypoxia Discharge Discharge Diagnosis / Problem: Progressive Small Cell Carcinoma of Lung, Respiratory failure,DM,AF Discharge Goals Goal(s): Prevent Disease Progression Activity Recommendations Activity Level: Up Ad Farzana, Assistance Required Therapies: Physical Therapy, Occupational Therapy . Additional Information Patient informed of condition: Yes Advance Directives: No DNR: Yes Level of Care: Skilled Communicable Disease: No Prognosis: Stable Oxygen at (LPM): 2-3 liters/min Via NC-continously Em Catheter: No Instructions / Follow-Up Instructions / Follow-Up DR Jolynn Gale on 03/12/17-Please keep this appointment.Dr Zamudio's office will call with appointment Current Hospital Diet Patient's current hospital diet: AHA Diet (Heart Healthy), Diabetes Type 2 Diet Discharge Diet Recommended Diet: AHA Diet (Heart Healthy), Diabetes Type 2 Diet Fluid Restriction: 1500 ml (6 cups) Pending Studies Studies pending at discharge: no Laboratory Results Hemoglobin A1c Test 01/31/17 07:02 Range/Units Estimated Average Glucose 137 mg/dl Hemoglobin A1c 6.4 H 4.5-5.6 % Medical Emergencies . Who to Call and When: Medical Emergencies: If at any time you feel your situation is an emergency, please call 911 immediately. . Non-Emergent Contact Non-Emergency issues call your: Primary Care Provider . Past History Medical & Surgical History: (1) Sepsis (2) Pulmonary emboli (3) Healthcare-associated pneumonia (4) Hypoxia (5) Primary cancer of left upper lobe of lung (6) Chronic back pain (7) History of back surgery . "Provider Documentation" section prepared by Avtar Sarkar. . Core Measure Problem Core Measures: None [place] Drug Monitoring Program Drug Monitoring Findings: Methadone,Diazepam and Tramadol sre prescribed by the PCP .Methadone dose is increased to 15 mg BID <Electronically signed by Avtar Sarkar M.D.> Signed: 03/09/17 [id number] Additional Copies To Efraín Zamudio III, M.D.
[2017-04-20] MEDS ORDERED: SRQ25 PO (11:49)
[2017-04-20] MEDS ORDERED: KLN5 PO (11:49)
[2017-04-20] MEDS ORDERED: INSDGIPEN SC (11:49)
[2017-04-20] MEDS ORDERED: ATV5 PO (11:49)
[2017-04-20] MEDS ORDERED: FAMO1TAB47 PO (11:49)
[2017-04-20] MEDS ORDERED: NVLGIPEN SC ×3 (11:49)
[2017-04-20] MEDS ORDERED: PRED-301 PO (11:56)
== END 2017-03-09 16:00 | DRG 166 ==
LOC: EDBD 04:05 → C.EDB 04:07 → C.2T 06:31 → ENRESERV 06:46 → C.MSICU 10:47 → CANRESERV 03-02 19:55 → ENRESERV 03-02 19:55 → C.4E 03-02 20:47
PROVIDERS: ADMIT Family Medicine; ATTEND Internal Medicine
PROC: 0BH17EZ Insertion of Endotracheal Airway into Trachea, Via Natural or Artificial Opening (ICD-10-PCS; principal; 2017-02-17)
PROC: 0B9D8ZX Drainage of Right Middle Lung Lobe, Via Natural or Artificial Opening Endoscopic, Diagnostic (ICD-10-PCS; principal; 2017-02-17)
PROC: 0B9G8ZX Drainage of Left Upper Lung Lobe, Via Natural or Artificial Opening Endoscopic, Diagnostic (ICD-10-PCS; principal; 2017-02-17)
PROC: 05HN33Z Insertion of Infusion Device into Left Internal Jugular Vein, Percutaneous Approach (ICD-10-PCS; 2017-02-18)
DX: J70.0 Acute pulmonary manifestations due to radiation (principal); J96.01 Acute respiratory failure with hypoxia; A41.9 Sepsis, unspecified organism; I26.99 Other pulmonary embolism without acute cor pulmonale; E87.1 Hypo-osmolality and hyponatremia; C34.90 Malignant neoplasm of unspecified part of unspecified bronchus or lung; Z51.5 Encounter for palliative care; Z66 Do not resuscitate; F41.9 Anxiety disorder, unspecified; G89.29 Other chronic pain; M54.9 Dorsalgia, unspecified; E83.39 Other disorders of phosphorus metabolism; E11.9 Type 2 diabetes mellitus without complications; I48.91 Unspecified atrial fibrillation; Z79.4 Long term (current) use of insulin; Z87.891 Personal history of nicotine dependence; Z79.82 Long term (current) use of aspirin; Z83.3 Family history of diabetes mellitus

== ENCOUNTER 2017-03-21 21:04 | Inpatient (IN) | payer OTHER ==
[~2017-03-21] VITALS: Ht 190.5 cm; Wt 117.4 kg
[~2017-03-21 21:04] MED LIST changes: +AFRINWC; +BIOT1CHW PO; +BISA10SU5 RE; -CEFD300C3 PO; +DIAZ2TAB PO; -DIME50TA49 PO; +DOCU100C31 PO; -FURO-85 PO; +INSDGIPEN SC; -INSPMPRGR SQ; -INSU1INJ23 SQ; +INSUINJ7 SC; -IPRA1AER2 INH; +LEVA1.255 INH; -LVNIS100 SQ; +LVNIS80 SQ; -METH10TA2 PO; +MGNO400 PO; +MOMLX PO; +MTH10 PO; +NTRSLP4 SL; +POLY335019 PO; +PRD10 PO; -PRD20 PO; -PROC1TAB5 PO; +SENN8.6T7 PO; +SODIENE PR; +TPRSR25 PO; -VLM2 PO; +VLTG EXT
[2017-03-21] MEDS ORDERED: CEFEPIME IV 1,000 MG in DEXTROSE 5% 100ML 100 ML IV STA (21:19)
[2017-03-21] MEDS ORDERED: SODIUM CHLORIDE 0.9% 1000ML 1,000 ML IV STA ×2 (21:19)
[2017-03-21] MEDS ORDERED: VANCOMYCIN INJ 2,000 MG in SODIUM CHLORIDE 0.9% 500ML 500 ML IV STA (21:19)
[2017-03-21] MEDS ORDERED: IBUPROFEN 200 MG TAB PO STA (21:29)
[2017-03-21 21:32] LABS: BASO % 0.1 %; BASO ABS # 0.01 K/uL (0-0.2); EOS % 0.1 %; EOS ABS # 0.01 K/uL (0-0.5); HEMATOCRIT 33.7 % (42-52); HEMOGLOBIN 10.5 g/dL (14.0-18.0); IG# 0.09 K/uL (0.00-0.02); LYMPH % 2.5 %; LYMPH ABS # 0.36 K/uL (1.2-3.4); MEAN CELL VOLUME 88.5 fL (80-100); MEAN CORPUSCULAR HEMOGLOBIN 27.6 pg (25-34); MEAN CORPUSCULAR HGB CONC 31.2 g/dl (32-36); MEAN PLATELET VOLUME 10.2 fL (7.4-10.4); MONO % 9.3 %; MONO ABS # 1.33 K/uL (0.11-0.59); NEUT % 87.4 %; NEUT ABS # 12.57 K/uL (1.4-6.5); PLATELET COUNT 447 K/uL (130-400); RED CELL DISTRIBUTION WIDTH CV 17.9 % (11.5-14.5); RED CELL DISTRIBUTION WIDTH SD 57.7 fL (36.4-46.3); WHITE BLOOD COUNT 14.37 K/uL (4.8-10.8)
[2017-03-21] MEDS: ALBUT/IPRATROP 3MG/0.5MG NEB 3 ML VIAL INH STA ×2 (21:40→21:54)
[2017-03-21 21:46] LABS: ALBUMIN 2.4 gm/dl (3.4-5.0); ALT/SGPT 18 U/L (12-78); BLOOD UREA NITROGEN 27 mg/dl (7-18); CALCIUM 9.7 mg/dl (8.5-10.1); CARBON DIOXIDE 31 mmol/L (21-32); CREATININE 0.96 mg/dl (0.60-1.40); GLUCOSE 164 mg/dl (70-99); LIPASE 38 U/L (73-393); SODIUM 137 mmol/L (136-145)
[2017-03-21] MEDS ORDERED: LORAZEPAM 0.5 MG TAB SL STA (21:52)
[2017-03-21 21:54] LABS: INR 1.1 (0.9-1.1)
[2017-03-21 21:55] LABS: ALKALINE PHOSPHATASE 104 U/L (45-117); AST/SGOT 52 U/L (15-37); CKMB 1.5 ng/ml (0.5-3.6); TOTAL PROTEIN 7.4 gm/dl (6.4-8.2)
[2017-03-21 21:56] VITALS: PULSE 131; O2SAT 83
[2017-03-21 22:18] LABS: INFLUENZA B ANTIGEN Neg for Influ B (NEG)
[2017-03-21] MEDS ORDERED: INSU100I SQ (22:20)
[2017-03-21] MEDS ORDERED: TRIA1SPR4 NAE (22:20)
[2017-03-21] MEDS ORDERED: LEVO1TAB35 PO (22:20)
[2017-03-21] MEDS ORDERED: IPRASOL4 INH (22:20)
[2017-03-21] MEDS ORDERED: INSHNI SQ ×2 (22:20)
--- NOTE | 2017-03-21 22:23 | DIAGNOSTIC IMAGING REPORT ---
SINGLE VIEW CHEST CLINICAL HISTORY: Generalized weakness. Dyspnea. FINDINGS: 2 AP, portable, upright chest radiographs are compared to chest x-ray and chest CT dated 03/05/2017 and correlated with chest CT dated 02/24/2017. The examination is severely degraded by portable technique and patient rotation. The heart is enlarged and there is pulmonary vascular congestion. There is volume loss seen throughout the left lung. Dense airspace consolidation is seen in the left midlung with air bronchograms. A lucency within the left midlung consolidation likely represents a cyst when correlated with a prior chest CT. Patchy airspace consolidation is seen throughout the right lung. Small pleural effusions are suspected. The bony thorax is grossly intact. IMPRESSION: 1. Cardiomegaly with mild pulmonary vascular congestion. 2. There is dense airspace consolidation again seen in the left midlung. 3. Patchy airspace consolidation is also identified throughout the right lung. This could represent pneumonia versus interstitial edema. Clinical correlation will be required. 4. Small pleural effusions are suspected. Electronically signed by: Hero Fair M.D. 03/21/2017 10:22 PM Dictated Date/Time: 03/21/2017 10:19 PM
[2017-03-22] VITALS (29 sets, daily range): BP systolic 98–171; BP diastolic 67–98; PULSE 75–116; TEMP 36.4–36.7; O2SAT 79–97; BMI 34.4
--- NOTE | 2017-03-22 00:49 | EMERGENCY ROOM VISIT NOTE ---
History Report prepared by Soledad: William Rios Under the Supervision of: Dr. Efraín Gant M.D. First contact with patient: 21:11 Chief Complaint: RESPIRATORY PROBLEMS Stated Complaint: SOB, HYPOXIA History of Present Illness The patient is a 56 year old male who presents to the Emergency Room with complaints of constant hypoxia that began prior to arrival. The patient states that he has a history of small cell lung cancer and has been using chemotherapy and radiation. He states that he was admitted in January and was discharged March 10 because of acute hypoxic respiratory failure secondary to hospital acquired pneumonia. The patient states that he has been in [facility] for rehab for his respiratory failure. The patient reports that he has been experiencing shortness of breath, a fever, and a productive cough since. He states he usually wears 4L of oxygen normally with an oxygen saturation level of 88%. The patient states that he was found to have an oxygen saturation level in the 50s tonight. He reports that he was given a nebulizer and his oxygen saturation was in the 60s-70s. The patient states that he was given an NRB 15 L and his oxygen saturation was brought up to 88%. He reports that he is diabetic and his blood sugar was low prior to arrival, but he states that he fixed it by eating candy. The patient denies LOC, headache, chills, diaphoresis, visual changes, neck pain, chest pain, vomiting, abdominal pain, back pain, melena, hematochezia, urinary symptoms, numbness, weakness, lymphadenopathy, rash, or other complaints. Source of History: patient Onset: prior to arrival Position: other (global) Quality: other (50s) Timing: constant Associated Symptoms: + fevers, + cough, + SOB Review of Systems See HPI for pertinent positives and negatives. A total of ten systems were reviewed and were otherwise negative. Past Medical & Surgical Medical Problems: (1) Anxiety (2) Chronic back pain (3) Hypoxia (4) Insulin dependent type 2 diabetes mellitus Surgical Problems: (1) History of back surgery Family History Diabetes mellitus Social History Smoking Status: Never Smoker Alcohol Use: none Marital Status: single Housing Status: lives alone Occupation Status: unemployed Current/Historical Medications Scheduled Aspirin (Aspirin Ec), 325 MG PO QAM Biotin W/ Vitamins C & E (Hair/Skin/Nails 1250-7.5-7.5 Mcg-mg-Unt), 1 TAB PO DAILY Cholecalciferol (Vitamin D), 5,000 UNITS PO DAILY Diclofenac Sod (Voltaren), 1 APPLN EXT TID Docusate Sodium (Docusate Sodium), 100 MG PO BID Enoxaparin (Lovenox), 80 MG SQ Q12H Insulin Human NPH (Humulin N), 55 UNITS SQ QPM Insulin Human NPH (Humulin N), 75 UNITS SQ QAM Insulin Lispro (Human) (Humalog), 20 UNITS SQ QID Insulin Regular (Human) (Novolin R U-100), 15 UNITS SC TID Levalbuterol Hcl (Levalbuterol), 1 AMP INH Q6H Levofloxacin (Levaquin), 750 MG PO DAILY Magnesium Oxide (Magnesium-Oxide), 400 MG PO QAM Methadone HCl (Methadone HCl), 15 MG PO Q6 Metoprolol Succinate (Metoprolol Succinate ER), 12.5 MG PO QAM Triamcinolone Acetonide (Nasal (Nasacort Allergy 24Hr), 2 SPRAYS BJ DAILY Vitamin E (E-400), 400 MG PO TIDM Zolpidem Tartrate (Ambien), 10 MG PO HS Scheduled PRN Bisacodyl (Bisacodyl), 10 MG RE DAILY PRN for Constipation Diazepam (Valium), 2 MG PO BID PRN for Anxiety/Agitation Ipratropium-Albuterol (Duoneb), 1 TREATMENT INH Q2H PRN for Shortness of Breath Magnesium Hydroxide (Milk of Magnesia), 30 ML PO DAILY PRN for Constipation Nitroglycerin (Nitrostat), 0.4 MG SL PRN PRN for Chest Pain Ondansetron Hcl (Zofran), 8 MG PO Q8 PRN for Nausea Polyethylene Glycol 3350 (Miralax), 17 GM PO QDL PRN for Constipation Sennosides-Docusate Sodium (Senokot S), 1 TAB PO QDL PRN for Constipation Sodium Phosphate/Biphosphate (Fleet Enema), 1 EA IA DAILY PRN for Constipation Tramadol (Ultram), 50 MG PO Q6H PRN for Pain Allergies Coded Allergies: Amoxicillin (Verified Allergy, Intermediate, sob, 03/21/17) PER CONVERSATION WITH ANSELMO AQUINO PA-C - SHE SPOKE WITH PATIENT WHO STATES THAT THIS IS NOT A TRUE ALLERGY HE HAS TOLERATED PENCILLINS IN THE PAST. TOLERATES ROCEPHIN X 5 DOSES AN OUTPATIENT. Atorvastatin (Verified Allergy, Intermediate, diarrhea, 03/21/17) Acetaminophen (Verified Allergy, Unknown, PT STATES "IT INTENSIFIES EFFECT ", 03/21/17) Clindamycin (Verified Allergy, Unknown, SHORTNESS OF BREATH, 03/21/17) Escitalopram (Verified Allergy, Unknown, GI UPSET, 03/21/17) Gabapentin (Verified Allergy, Unknown, CONSTIPATION, 03/21/17) Insulin Aspart (Verified Allergy, Unknown, ALLERGIC TO PRESERVATIVES IN NOVOLOG - OK WITH REGULAR/NPH, 03/21/17) Morphine (Verified Allergy, Unknown, DID NOT TOLERATE PER PT, 03/21/17) Propoxyphene (Verified Allergy, Unknown, "DID CRAZY THINGS", 03/21/17) Sitagliptin (Verified Allergy, Unknown, UNKNOWN RXN, 03/21/17) Adhesives (Verified Adverse Reaction, Unknown, "rips his skin off", ) Dextromethorphan (Verified Adverse Reaction, Unknown, HARD TO BREATHE?, ) Guaifenesin (Verified Adverse Reaction, Unknown, HARD TO BREATHE?, ) Metformin (Verified Adverse Reaction, Unknown, PT STATES "DID NOT WORK", 03/21/17) Physical Exam Vital Signs Date Time Temp Pulse Resp B/P (MAP) Pulse Ox O2 Delivery O2 Flow Rate FiO2 03/21/17 23:51 110 143/87 94 Non-Rebreather 15.0 03/21/17 22:55 37.1 118 28 106/73 95 Nasal Cannula 15.0 Non-Rebreather 03/21/17 22:27 120 26 125/72 95 Nasal Cannula 15.0 Non-Rebreather 03/21/17 21:56 131 33 83 Non-Rebreather 15.0 03/21/17 21:49 130 26 138/81 81 Non-Rebreather 15.0 03/21/17 21:20 88 Non-Rebreather 15.0 03/21/17 21:13 137 03/21/17 21:12 85 Non-Rebreather 03/21/17 21:12 37.5 137 30 113/84 85 Non-Rebreather 15.0 03/21/17 21:12 85 Non-Rebreather Physical Exam GENERAL: Awake, alert, well-appearing, in no distress HENT: Normocephalic, atraumatic. Oropharynx unremarkable. EYES: Normal conjunctiva. Sclera non-icteric. NECK: Supple. No nuchal rigidity. FROM. No JVD. RESPIRATORY: Dyspneic. Moderate rales on the left side. CARDIAC: Tachycardic, normal rhythm. Extremities warm and well perfused. Pulses equal. ABDOMEN: Soft, non-distended. No tenderness to palpation. No rebound or guarding. No masses. RECTAL: Deferred. MUSCULOSKELETAL: Chest examination reveals no tenderness. The back is symmetrical on inspection without obvious abnormality. There is no CVA tenderness to palpation. No joint edema. LOWER EXTREMITIES: Calves are equal size bilaterally and non-tender. No edema. No discoloration. NEURO: Normal sensorium. No sensory or motor deficits noted. SKIN: No rash or jaundice noted. Medical Decision & Procedures ER Provider Diagnostic Interpretation: X-ray: Per my interpretation, radiologist review. SINGLE VIEW CHEST CLINICAL HISTORY: Generalized weakness. Dyspnea. FINDINGS: 2 AP, portable, upright chest radiographs are compared to chest x-ray and chest CT dated 03/05/2017 and correlated with chest CT dated 02/24/2017. The examination is severely degraded by portable technique and patient rotation. The heart is enlarged and there is pulmonary vascular congestion. There is volume loss seen throughout the left lung. Dense airspace consolidation is seen in the left midlung with air bronchograms. A lucency within the left midlung consolidation likely represents a cyst when correlated with a prior chest CT. Patchy airspace consolidation is seen throughout the right lung. Small pleural effusions are suspected. The bony thorax is grossly intact. IMPRESSION: 1. Cardiomegaly with mild pulmonary vascular congestion. 2. There is dense airspace consolidation again seen in the left midlung. 3. Patchy airspace consolidation is also identified throughout the right lung. This could represent pneumonia versus interstitial edema. Clinical correlation will be required. 4. Small pleural effusions are suspected. Electronically signed by: Hero Fair M.D. 03/21/2017 10:22 PM Dictated Date/Time: 03/21/2017 10:19 PM Laboratory Results 03/21/17 20:55 Red Blood Count 3.81, Mean Corpuscular Volume 88.5, Mean Corpuscular Hemoglobin 27.6, Mean Corpuscular Hemoglobin Concent 31.2, Mean Platelet Volume 10.2, Neutrophils (%) (Auto) 87.4, Lymphocytes (%) (Auto) 2.5, Monocytes (%) (Auto) 9.3, Eosinophils (%) (Auto) 0.1, Basophils (%) (Auto) 0.1, Neutrophils # (Auto) 12.57, Lymphocytes # (Auto) 0.36, Monocytes # (Auto) 1.33, Eosinophils # (Auto) 0.01, Basophils # (Auto) 0.01 03/21/17 20:55 Test 03/21/17 20:55 03/21/17 21:34 03/21/17 21:45 03/21/17 23:29 White Blood Count 14.37 K/uL (4.8-10.8) Red Blood Count 3.81 M/uL (4.7-6.1) Hemoglobin 10.5 g/dL (14.0-18.0) Hematocrit 33.7 % (42-52) Mean Corpuscular Volume 88.5 fL (80-100) Mean Corpuscular Hemoglobin 27.6 pg (25-34) Mean Corpuscular Hemoglobin Concent 31.2 g/dl (32-36) Platelet Count 447 K/uL (130-400) Mean Platelet Volume 10.2 fL (7.4-10.4) Neutrophils (%) (Auto) 87.4 % Lymphocytes (%) (Auto) 2.5 % Monocytes (%) (Auto) 9.3 % Eosinophils (%) (Auto) 0.1 % Basophils (%) (Auto) 0.1 % Neutrophils # (Auto) 12.57 K/uL (1.4-6.5) Lymphocytes # (Auto) 0.36 K/uL (1.2-3.4) Monocytes # (Auto) 1.33 K/uL (0.11-0.59) Eosinophils # (Auto) 0.01 K/uL (0-0.5) Basophils # (Auto) 0.01 K/uL (0-0.2) RDW Standard Deviation 57.7 fL (36.4-46.3) RDW Coefficient of Variation 17.9 % (11.5-14.5) Immature Granulocyte % (Auto) 0.6 % Immature Granulocyte # (Auto) 0.09 K/uL (0.00-0.02) Nucleated RBC Absolute Count (auto) 0.10 K/uL (0-0) Nucleated Red Blood Cells % 0.7 % Prothrombin Time 12.0 SECONDS (9.0-12.0) Prothromb Time International Ratio 1.1 (0.9-1.1) Activated Partial Thromboplast Time 24.0 SECONDS (21.0-31.0) Partial Thromboplastin Ratio 0.9 Anion Gap 6.0 mmol/L (3-11) Est Creatinine Clear Calc Drug Dose 126.8 ml/min Estimated GFR () 103.4 Estimated GFR (Non- 89.3 BUN/Creatinine Ratio 28.0 (10-20) Calcium Level 9.7 mg/dl (8.5-10.1) Magnesium Level 1.8 mg/dl (1.8-2.4) Total Bilirubin 0.2 mg/dl (0.2-1) Direct Bilirubin < 0.1 mg/dl (0-0.2) Aspartate Amino Transf (AST/SGOT) 52 U/L (15-37) Alanine Aminotransferase (ALT/SGPT) 18 U/L (12-78) Alkaline Phosphatase 104 U/L (45-117) Total Creatine Kinase 54 U/L (39-308) Creatine Kinase MB 1.5 ng/ml (0.5-3.6) Creatine Kinase MB Ratio 2.8 (0-3.0) Troponin I < 0.015 ng/ml (0-0.045) Pro-B-Type Natriuretic Peptide 879 pg/ml (0-900) Total Protein 7.4 gm/dl (6.4-8.2) Albumin 2.4 gm/dl (3.4-5.0) Lipase 38 U/L (73-393) Thyroid Stimulating Hormone (TSH) 1.940 uIu/ml (0.300-4.500) Bedside Lactic Acid Venous 2.45 mmol/L (0.90-1.70) Influenza Type A Antigen Neg for Influ A (NEG) Influenza Type B Antigen Neg for Influ B (NEG) Bedside Glucose 177 mg/dl (70-99) Laboratory results reviewed by me Medications Administered Medications (Trade) Dose Ordered Sig/Prince Route Start Time Stop Time Status Last Admin Dose Admin Sodium Chloride 1,000 ml @ 125 mls/hr Q8H STAT IV 03/21/17 21:19 03/22/17 05:18 03/21/17 22:26 125 MLS/HR Sodium Chloride 1,000 ml @ 999 mls/hr Q1H1M STAT IV 03/21/17 21:19 03/21/17 22:19 DC 03/21/17 21:39 999 MLS/HR Vancomycin HCl 2000 mg/Sodium Chloride 540 ml @ 200 mls/hr ONE STAT IV 03/21/17 21:19 03/22/17 00:00 DC 03/21/17 22:13 200 MLS/HR Albuterol/ Ipratropium (Duoneb) 3 ml NOW STAT INH 03/21/17 21:19 03/21/17 21:24 DC 03/21/17 21:40 3 ML Cefepime HCl 1000 mg/Dextrose 111 ml @ 200 mls/hr NOW STAT IV 03/21/17 21:19 03/21/17 21:52 DC 03/21/17 22:13 200 MLS/HR Ibuprofen (Advil Tab) 400 mg NOW STAT PO 03/21/17 21:29 03/21/17 21:31 DC 03/21/17 21:39 400 MG Lorazepam (Ativan Tab) 0.5 mg NOW STAT SL 03/21/17 21:52 03/21/17 21:53 DC 03/21/17 21:56 0.5 MG ECG Indication: SOB/dyspnea Rate (beats per minute): 140 Rhythm: sinus tachycardia Findings: no acute ischemic change, no ectopy ED Course 2113: The patient was evaluated in room A01. A complete history and physical exam was performed. 2118: Ordered Cefepime HCL 1000 mg/ Dextrose 111 ml @ 200 mls/hr IV, Duoneb 3 ml INH, Vancomycin HCL 2000 mg/Sodium Chloride 540 ml @ 200 mls/hr IV, Sodium Chloride 1000 ml @ 999 mls/hr IV, Sodium Chloride 1000 ml @ 125 mls/hr IV. 2128: Ordered Advil Tab 400 mg PO. 2151: Ordered Ativan Tab 0.5 mg SL. 2254: I reevaluated the patient and updated him on his results. I discussed his treatment plan and he agrees. 8: I discussed the patients case with Dr. Angela, [facility] Hospitalist. He understands the patients condition and agrees to accept the patient. The patient will be further evaluated. Medical Decision Prior records/ancillary studies reviewed. Triage Nursing notes reviewed and agree them. Additional history obtained from the family. The patient's history was concerning for possible infection. Differential diagnosis: Etiologies such as sepsis, UTI, pneumonia, electrolyte abnormalities, cardiac sources, intracerebral event, toxicologic, neurologic, as well as others were entertained. Physical examination: As above. ER treatment provided: IV fluid resuscitation Blood and urine cultures Antibiotics: Vancomycin and cefepime BiPAP was tried but the patient did not tolerated. He did well with a nonrebreather and high flow nasal cannula. He was somewhat anxious and was given a sublingual Ativan and felt better with this. On reassessment the patient vital signs improved. Diagnostics interpretation by me: ECG: Tachycardia without ischemia. The labs revealed a mild leukocytosis. Chem strip panel unremarkable. The patient's lactate is elevated. Cultures done. Flu negative. Imaging studies: Chest x-ray as above Consultation: A consultation was placed with the hospitalist. The case was discussed and diagnostics were reviewed. The patient was evaluated in the ER for further treatment. Medication Reconcilliation Current Medication List: was personally reviewed by me Blood Pressure Screening Patient's blood pressure: Normal blood pressure Impression Primary Impression: Sepsis Additional Impressions: Respiratory failure PNA (pneumonia) Scribe Attestation The scribe's documentation has been prepared under my direction and personally reviewed by me in its entirety. I confirm that the note above accurately reflects all work, treatment, procedures, and medical decision making performed by me. Departure Information Dispostion Being Evaluated By Hospitalist Referrals [facility] (PCP) Patient Instructions My [facility] Problem Qualifiers
[2017-03-22] MEDS ORDERED: METHADONE HCL 5 MG TAB PO STA (01:39)
[2017-03-22] MEDS ORDERED: ENOXAPARIN 80 MG/0.8 ML SYR SQ STA (01:39)
[2017-03-22] MEDS ORDERED: METHYLPREDNISOLONE 125 MG VIAL IV STA (01:41)
[2017-03-22] MEDS ORDERED: ICU PROTOCOL FOR HYPERGLYCEMIA PRN (01:45)
[2017-03-22] MEDS ORDERED: LEVALBUTEROL/IPRATROPIUM NEB INH SCH (01:45)
[2017-03-22] MEDS ORDERED: LEVOFLOXACIN 750MG / D5W IV SCH (03:00)
[2017-03-22] MEDS: IPRATROPIUM BROMIDE NEB SOLN 0.02% 2.5 ML VIAL INH SCH ×6 (03:50→23:22)
[2017-03-22] MEDS: LEVALBUTEROL 1.25MG/0.5ML NEB INH SCH ×6 (03:50→23:22)
[2017-03-22] MEDS ORDERED: PHARMACY GLYCEMIC MGMT CONSULT PRN (03:53)
[2017-03-22] MEDS: SODIUM CHLORIDE 0.9% 1000ML 1,000 ML IV SCH ×3 (04:01→20:35)
[2017-03-22] MEDS: DexMEDEtomidine HCL IV 200 MCG in SODIUM CHLORIDE 0.9% 50ML 48 ML IV PRN ×2 (04:07→08:38)
[2017-03-22] MEDS ORDERED: CEFEPIME CONSULT ACTIVE PRN (04:47)
[2017-03-22] MEDS ORDERED: VANCOMYCIN CONSULT ACTIVE PRN (05:00)
[2017-03-22] MEDS ORDERED: LEVOFLOXACIN CONSULT ACTIVE PRN (05:00)
--- NOTE | 2017-03-22 06:03 | Critical Care Consultation ---
Critical Care Consultation Date of Consultation: Mar 22, 2017. Attending Physician: Anna De León D.O. Reason for Consultation: 56-year-old male with significant past medical history of small cell lung cancer in acute respiratory distress requiring noninvasive ventilatory techniques with close monitoring for the progression to invasive ventilatory techniques. Concerns for acute pneumonia. History of Present Illness Patient is a 56-year-old male with a significant past medical history of small cell lung cancer, upper extremity DVT and subsequent pulmonary emboli who is O2 dependent at home. Most recently, the patient was at rehabilitation facility where he was found to be hypoxic this evening and transported to the ER for further evaluation and management. Patient was initially placed on a nonrebreather. They attempted utilize BiPAP, but the patient refused. Patient was found to have an acute leukocytosis. He is afebrile. Cardiac evaluation was otherwise unremarkable. Initial blood gas showed a slight elevation of CO2 at 49 and PO2 low at 60%. Influenza was negative. Upon arrival to the ICU, the patient is extremely tachypneic. He has diffuse inspiratory wheezes and is generally anxious. Patient reports that he has had worsening shortness of breath over last 3 days. He has had a cough which is nonproductive of sputum. He denies any fevers or chills. He denies chest pain , palpitations, or hemoptysis. He denies any abdominal pain or bloody stools. Patient has history of noncompliance with medical management the past. Past Medical/Surgical History Medical Problems: (1) Anxiety (2) Chronic back pain (3) Hypoxia (4) Insulin dependent type 2 diabetes mellitus Surgical Problems: (1) History of back surgery Family History Diabetes mellitus Social History Smoking Status: Former Smoker Smokeless Tobacco Use: No Alcohol Use: none Drug Use: none Marital Status: single Housing Status: lives alone Occupation Status: unemployed Allergies Coded Allergies: Amoxicillin (Verified Allergy, Intermediate, sob, 03/21/17) PER CONVERSATION WITH ANSELMO AQUINO PA-C - SHE SPOKE WITH PATIENT WHO STATES THAT THIS IS NOT A TRUE ALLERGY HE HAS TOLERATED PENCILLINS IN THE PAST. TOLERATES ROCEPHIN X 5 DOSES AN OUTPATIENT. Atorvastatin (Verified Allergy, Intermediate, diarrhea, 03/21/17) Acetaminophen (Verified Allergy, Unknown, PT STATES "IT INTENSIFIES EFFECT ", 03/21/17) Clindamycin (Verified Allergy, Unknown, SHORTNESS OF BREATH, 03/21/17) Escitalopram (Verified Allergy, Unknown, GI UPSET, 03/21/17) Gabapentin (Verified Allergy, Unknown, CONSTIPATION, 03/21/17) Insulin Aspart (Verified Allergy, Unknown, ALLERGIC TO PRESERVATIVES IN NOVOLOG - OK WITH REGULAR/NPH, 03/21/17) Morphine (Verified Allergy, Unknown, DID NOT TOLERATE PER PT, 03/21/17) Propoxyphene (Verified Allergy, Unknown, "DID CRAZY THINGS", 03/21/17) Sitagliptin (Verified Allergy, Unknown, UNKNOWN RXN, 03/21/17) Adhesives (Verified Adverse Reaction, Unknown, "rips his skin off", ) Dextromethorphan (Verified Adverse Reaction, Unknown, HARD TO BREATHE?, ) Guaifenesin (Verified Adverse Reaction, Unknown, HARD TO BREATHE?, ) Metformin (Verified Adverse Reaction, Unknown, PT STATES "DID NOT WORK", 03/21/17) Home Medications Scheduled Aspirin (Aspirin Ec), 325 MG PO QAM Biotin W/ Vitamins C & E (Hair/Skin/Nails 1250-7.5-7.5 Mcg-mg-Unt), 1 TAB PO DAILY Cholecalciferol (Vitamin D), 5,000 UNITS PO DAILY Diclofenac Sod (Voltaren), 1 APPLN EXT TID Docusate Sodium (Docusate Sodium), 100 MG PO BID Enoxaparin (Lovenox), 80 MG SQ Q12H Insulin Human NPH (Humulin N), 55 UNITS SQ QPM Insulin Human NPH (Humulin N), 75 UNITS SQ QAM Insulin Lispro (Human) (Humalog), 20 UNITS SQ QID Insulin Regular (Human) (Novolin R U-100), 15 UNITS SC TID Levalbuterol Hcl (Levalbuterol), 1 AMP INH Q6H Levofloxacin (Levaquin), 750 MG PO DAILY Magnesium Oxide (Magnesium-Oxide), 400 MG PO QAM Methadone HCl (Methadone HCl), 15 MG PO Q6 Metoprolol Succinate (Metoprolol Succinate ER), 12.5 MG PO QAM Triamcinolone Acetonide (Nasal (Nasacort Allergy 24Hr), 2 SPRAYS BJ DAILY Vitamin E (E-400), 400 MG PO TIDM Zolpidem Tartrate (Ambien), 10 MG PO HS Scheduled PRN Bisacodyl (Bisacodyl), 10 MG RE DAILY PRN for Constipation Diazepam (Valium), 2 MG PO BID PRN for Anxiety/Agitation Ipratropium-Albuterol (Duoneb), 1 TREATMENT INH Q2H PRN for Shortness of Breath Magnesium Hydroxide (Milk of Magnesia), 30 ML PO DAILY PRN for Constipation Nitroglycerin (Nitrostat), 0.4 MG SL PRN PRN for Chest Pain Ondansetron Hcl (Zofran), 8 MG PO Q8 PRN for Nausea Polyethylene Glycol 3350 (Miralax), 17 GM PO QDL PRN for Constipation Sennosides-Docusate Sodium (Senokot S), 1 TAB PO QDL PRN for Constipation Sodium Phosphate/Biphosphate (Fleet Enema), 1 EA SD DAILY PRN for Constipation Tramadol (Ultram), 50 MG PO Q6H PRN for Pain Current Inpatient Medications Current Inpatient Medications Medications (Trade) Dose Ordered Sig/Prince Route Start Time Stop Time Status Last Admin Dose Admin Cefepime HCl (Consult) 1 ea DAILY PRN N/A 03/22/17 04:47 04/21/17 04:46 Methylprednisolone Sodium Succinate 60 mg/Syringe 0.96 ml @ 1.5 mls/min Q8H IV 03/22/17 10:00 04/21/17 09:59 Sodium Chloride 1,000 ml @ 125 mls/hr Q8H IV 03/22/17 04:00 04/21/17 03:59 03/22/17 04:01 125 MLS/HR Miscellaneous Information (Consult Glycemic Management Pharmacy) 1 ea DAILY PRN N/A 03/22/17 03:53 04/21/17 03:52 Miscellaneous Information (Icu Protocol For Hyperglycemia) 1 ea PRN PRN N/A 03/22/17 01:45 03/24/17 01:44 Diazepam (Valium Tab) 2 mg BID PRN PO 03/22/17 02:00 04/21/17 01:59 Docusate Sodium (coLACE CAP) 100 mg BID PO 03/22/17 09:00 04/21/17 08:59 Enoxaparin Sodium (Lovenox Inj) 80 mg Q12H SQ 03/22/17 14:00 04/21/17 13:59 Magnesium Oxide (Mag-Ox Tab) 400 mg QAM PO 03/22/17 09:00 04/21/17 08:59 Methadone HCl (Dolophine Tab) 15 mg Q6H PO 03/22/17 08:00 04/05/17 07:59 Metoprolol Succinate (Toprol Xl Tab) 12.5 mg QAM PO 03/22/17 09:00 04/21/17 08:59 Tramadol HCl (Ultram Tab) 50 mg Q6H PRN PO 03/22/17 02:00 04/21/17 01:59 Triamcinolone Acetonide (Nasacort Allergy 24hr) 2 sprays DAILY BJ 03/22/17 09:00 04/21/17 08:59 Zolpidem Tartrate (Ambien Tab) 10 mg HS PO 03/22/17 21:00 04/21/17 20:59 Dexmedetomidine HCl 200 mcg/ Sodium Chloride 50 ml @ 0 mls/hr Q0M PRN IV 03/22/17 03:42 03/26/17 03:41 03/22/17 04:07 12.5 MLS/HR Levofloxacin (Consult) 1 ea UD PRN N/A 03/22/17 05:00 04/21/17 04:59 Vancomycin HCl (Consult) 1 ea UD PRN N/A 03/22/17 05:00 04/21/17 04:59 Ipratropium Downs (Atrovent 0.02% 0.5MG/2.5ML Neb) 0.5 mg Q4R INH 03/22/17 08:00 04/21/17 07:59 Levalbuterol (Xopenex 1.25MG/ 0.5ML Neb) 1.25 mg Q4R INH 03/22/17 08:00 04/21/17 07:59 Review of Systems A complete 10-point Review of Systems was discussed with the patient, with pertinent positives and negatives listed in the History of Present Illness. All remaining Review of Systems questions can be considered negative unless otherwise specified. Physical Exam Date Time Temp Pulse Resp B/P (MAP) Pulse Ox O2 Delivery O2 Flow Rate FiO2 03/22/17 05:00 90 24 98/74 (82) 96 BiPAP 80 03/22/17 04:14 80 03/22/17 04:00 108 26 138/89 (105) 95 BiPAP 80 03/22/17 03:50 114 94 100 03/22/17 03:50 114 22 94 BiPAP/CPAP 100 03/22/17 03:10 36.7 116 32 171/98 79 Non-Rebreather 15.0 03/22/17 02:01 108 148/96 90 Non-Rebreather 15.0 03/22/17 01:01 106 03/21/17 23:51 110 143/87 94 Non-Rebreather 15.0 03/21/17 22:55 37.1 118 28 106/73 95 Nasal Cannula 15.0 Non-Rebreather 03/21/17 22:27 120 26 125/72 95 Nasal Cannula 15.0 Non-Rebreather 03/21/17 21:56 131 33 83 Non-Rebreather 15.0 03/21/17 21:49 130 26 138/81 81 Non-Rebreather 15.0 03/21/17 21:20 88 Non-Rebreather 15.0 03/21/17 21:13 137 03/21/17 21:12 85 Non-Rebreather 03/21/17 21:12 37.5 137 30 113/84 85 Non-Rebreather 15.0 03/21/17 21:12 85 Non-Rebreather VITAL SIGNS - Vital signs and nursing notes were reviewed. GENERAL - 56-year-old male appearing his stated age who is in moderate distress. Unable to communicate in complete sentences secondary to tachypnea. HEAD - NC/AT. EYES - PERRL with EOMI bilaterally. Sclera anicteric. EARS - No deformities of external structures noted on gross examination bilaterally. NOSE - Midline and without cyanosis. MOUTH/OROPHARYNX - Without perioral cyanosis. Buccal mucosa pink and moist and without leukoplakia. NECK - Neck with FROM. Supple to palpation. LUNGS - Chest wall symmetric with accessory muscle use. Diffuse inspiratory wheezes noted throughout all lung shabazz. CARDIAC - RRR with S1/S2. No murmur, rubs, or gallops appreciated. no reproducible tenderness to palpation appreciated over the anterior chest wall. ABDOMEN - Abdominal contour obese and without pulsations or visible masses. BS normoactive all four quadrants. No tenderness, palpable masses, hepatosplenomegaly, or ascites noted. EXTREMITIES - No clubbing or peripheral cyanosis. Mild pretibial edema present bilaterally. +3/5 radial and dorsalis pedis pulses palpated throughout. +5/5 strength noted in UE/LE bilaterally. NEUROLOGIC - Cranial nerves II through XII grossly intact. Sensory intact to light touch throughout. PSYCH - A&Ox3 and cooperates fully with examiner. Pt is very pleasant and interacts well with examiner. Laboratory Results Last 24 Hours Test 03/21/17 20:55 03/21/17 21:12 03/21/17 21:34 03/21/17 21:45 White Blood Count 14.37 K/uL Red Blood Count 3.81 M/uL Hemoglobin 10.5 g/dL Hematocrit 33.7 % Mean Corpuscular Volume 88.5 fL Mean Corpuscular Hemoglobin 27.6 pg Mean Corpuscular Hemoglobin Concent 31.2 g/dl Platelet Count 447 K/uL Mean Platelet Volume 10.2 fL Neutrophils (%) (Auto) 87.4 % Lymphocytes (%) (Auto) 2.5 % Monocytes (%) (Auto) 9.3 % Eosinophils (%) (Auto) 0.1 % Basophils (%) (Auto) 0.1 % Neutrophils # (Auto) 12.57 K/uL Lymphocytes # (Auto) 0.36 K/uL Monocytes # (Auto) 1.33 K/uL Eosinophils # (Auto) 0.01 K/uL Basophils # (Auto) 0.01 K/uL RDW Standard Deviation 57.7 fL RDW Coefficient of Variation 17.9 % Immature Granulocyte % (Auto) 0.6 % Immature Granulocyte # (Auto) 0.09 K/uL Nucleated RBC Absolute Count (auto) 0.10 K/uL Nucleated Red Blood Cells % 0.7 % Prothrombin Time 12.0 SECONDS Prothromb Time International Ratio 1.1 Activated Partial Thromboplast Time 24.0 SECONDS Partial Thromboplastin Ratio 0.9 Sodium Level 137 mmol/L Potassium Level 4.0 mmol/L Chloride Level 99 mmol/L Carbon Dioxide Level 31 mmol/L Anion Gap 6.0 mmol/L Blood Urea Nitrogen 27 mg/dl Creatinine 0.96 mg/dl Est Creatinine Clear Calc Drug Dose 126.8 ml/min Estimated GFR () 103.4 Estimated GFR (Non- 89.3 BUN/Creatinine Ratio 28.0 Random Glucose 164 mg/dl Calcium Level 9.7 mg/dl Magnesium Level 1.8 mg/dl Total Bilirubin 0.2 mg/dl Direct Bilirubin < 0.1 mg/dl Aspartate Amino Transf (AST/SGOT) 52 U/L Alanine Aminotransferase (ALT/SGPT) 18 U/L Alkaline Phosphatase 104 U/L Total Creatine Kinase 54 U/L Creatine Kinase MB 1.5 ng/ml Creatine Kinase MB Ratio 2.8 Troponin I < 0.015 ng/ml Pro-B-Type Natriuretic Peptide 879 pg/ml Total Protein 7.4 gm/dl Albumin 2.4 gm/dl Lipase 38 U/L Thyroid Stimulating Hormone (TSH) 1.940 uIu/ml Bedside Glucose 165 mg/dl Bedside Lactic Acid Venous 2.45 mmol/L Influenza Type A Antigen Neg for Influ A Influenza Type B Antigen Neg for Influ B Test 03/21/17 23:29 03/22/17 02:03 03/22/17 05:08 Bedside Glucose 177 mg/dl Arterial Blood pH 7.37 Arterial Blood Partial Pressure CO2 49 mmHg Arterial Blood Partial Pressure O2 60 mm/Hg Arterial Blood HCO3 28 mmol/L Arterial Blood Oxygen Saturation 87.7 % Arterial Blood Base Excess 2.0 mEq/L Arterial Blood Gas Delivery 7 L Devin Test POS Diagnostic Results Radiological imaging and reports were reviewed by myself. Radiologist's Interpretation as follows: SINGLE VIEW CHEST CLINICAL HISTORY: Generalized weakness. Dyspnea. FINDINGS: 2 AP, portable, upright chest radiographs are compared to chest x-ray and chest CT dated 03/05/2017 and correlated with chest CT dated 02/24/2017. The examination is severely degraded by portable technique and patient rotation. The heart is enlarged and there is pulmonary vascular congestion. There is volume loss seen throughout the left lung. Dense airspace consolidation is seen in the left midlung with air bronchograms. A lucency within the left midlung consolidation likely represents a cyst when correlated with a prior chest CT. Patchy airspace consolidation is seen throughout the right lung. Small pleural effusions are suspected. The bony thorax is grossly intact. IMPRESSION: 1. Cardiomegaly with mild pulmonary vascular congestion. 2. There is dense airspace consolidation again seen in the left midlung. 3. Patchy airspace consolidation is also identified throughout the right lung. This could represent pneumonia versus interstitial edema. Clinical correlation will be required. 4. Small pleural effusions are suspected. Assessment & Plan (1) Hypoxia (2) PNA (pneumonia) (3) Respiratory failure (4) Primary cancer of left upper lobe of lung (5) Pneumonia (6) Anxiety (7) Insulin dependent type 2 diabetes mellitus (8) Chronic back pain Reason Critically Ill: 56-year-old male with significant past medical history of small cell lung cancer in acute respiratory distress requiring noninvasive ventilatory techniques with close monitoring for the progression to invasive ventilatory techniques. Concerns for acute pneumonia. Neuro - * CAM ICU: NEGATIVE * Chronic Back Pain: * Continue Methadone. * Anxiety - * Valium PRN. * Precedex gtt for anxiety while utilizing BiPAP - titrate down to activeness. * Ambien for sleep. Cardiac - * Hypertension: * Continue home Metoprolol. * Consider PRN Metoprolol for breakthrough HTN/Tachy * EKG Sinus Tachycardia 140 bpm w/ QTc of 424 ms * Monitor on Telemetry * Daily EKGs. * EKGs for chest pain. Respiratory - * Acute Hypoxic Respiratory Failure in the setting of LEFT upper lobe Small Cell Lung Cancer: * Previously underwent Radiation therapy - felt to cause radiation pneumonitis and recent episode of respiratory distress requiring intubation for an extended period of time. * Encourage BiPAP as he has had success with this in the past. * Will progress to Intubation if needed. Patient is open to intubation, but refuses CPR/cardioversion. * Concerns for persistent pneumonia of the LEFT Midlung: * Recent admissions - Vancomycin/Cefepime/Levaquin * Add sputum cultures * Nebs * Pulmonary Toilet * History of PEs - * Currently anticoagulated on Lovenox. * Consider repeat CTA if continued high O2 demands, however less likely as patient's exam/presentation more consistent with pneumonia/COPD. Responded to Positive airway pressure. GI - * h/o Constipation - continue Colace. * Will add Protonix for prophylaxis. RENAL/LYTES - * Will monitor electrolytes daily - replace appropriately. * Currently NSS @ 125mL/hr - reassess when off BiPAP and tolerating PO - * Refuses Em at this time. * Strict I&Os ENDO - * h/o IDDM: * ISS per protocol. * Progress to Insulin gtt if needed per protocol. Certainly possible in the setting of increased IV Steroid use. * Chronic steroid use: * Agree with IV steroids in the short term setting. * Monitor for hemodynamic compromise suggestive of need for stress dose hydrocortisone. Would hold off at this point. HEME - * Stable H&H - monitor daily. ID - * LEFT Midlobe Pneumonia: * Antibiotics - Cefepime/Vanc/Levaquin * Blood cultures pending. * Will add sputum cultures * Recently treated with Diflucan x7 days for BAL + of meño albicans - ?? adding Diflucan again. LINES/IV ACCESS - * PIVs intact DVT PROPHYLAXIS - * Lovenox - continued for outpatient DVT/PE treatment. I have personally spent 45 minutes of critical care time in the direct management of this patient. This is a life/limb threatening event. This includes time spent evaluating patient, direct bedside care, chart review, placing orders, interpretation of diagnostic studies, discussion with consultants, patient, and family members, as well as other required patient management activities. This time is exclusive of all separately billable procedures, and teaching time and separate from and in addition to any other critical care service time. Thank you for this consultation allow us to be part of this patient's care. Please refer to my attending physician's documentation for any further recommendations. I have seen and examined the patient with my PA. The patient was admitted with possibility of Pneumonia and acute respiratory failure. Currently he is on broad spectrum IV antibiotics and also steroids and is on BiPAP, which will be continued. Currently the patient is No CPR but Intubate. Oncology was consulted and according to the Oncology notes, he has been Hospice candidate. Agree with the plan of care as above and continue with them as recommended. DR. Erick [facility].
[2017-03-22 06:11] LABS: CALCIUM 8.9 mg/dl (8.5-10.1); CREATININE 0.57 mg/dl (0.60-1.40); POTASSIUM 4.5 mmol/L (3.5-5.1)
[2017-03-22] MEDS ORDERED: CEFEPIME IV 2,000 MG in SYRINGE 7.5 ML IV ONE (06:30)
[2017-03-22] MEDS ORDERED: NovoLIN R BOLUS FROM BAG IV ONE (06:45)
[2017-03-22] MEDS: VANCOMYCIN INJ 2,500 MG in SODIUM CHLORIDE 0.9% 500ML 500 ML IV SCH ×2 (07:39→16:54)
[2017-03-22] MEDS: INSULIN REGULAR 250 UNITS in SODIUM CHLORIDE 0.9% 250ML 250 ML IV SCH (07:40)
[2017-03-22] MEDS: INSULIN ASPART 100 UNITS/ML 3 ML PEN SC SCH ×4 (07:42→20:36)
[2017-03-22] MEDS: TRIAMCINOLONE ACET NASAL SPRAY 10.8ML BTL NAE SCH (08:38)
[2017-03-22] MEDS: DOCUSATE SODIUM 100 MG CAP PO SCH ×3 (08:39→20:35)
[2017-03-22] MEDS: METHYLPREDNISOLONE IV 60 MG in SYRINGE 0 ML IV SCH ×2 (08:39→16:54)
[2017-03-22] MEDS: METHADONE HCL 10 MG TAB PO SCH ×3 (08:39→20:35)
[2017-03-22] MEDS: MAGNESIUM OXIDE 400 MG TAB PO SCH (08:39)
[2017-03-22] MEDS: METOPROLOL SUCC 25MG EXT REL TAB PO SCH (08:39)
--- NOTE | 2017-03-22 09:29 | History and Physical ---
History & Physical Date & Time of Service: Mar 22, 2017 at 09:20 Chief Complaint: Respiratory Failure Primary Care Physician: Bran Osei History of Present Illness 56 year old male with history of small cell CA, Chronic Hypoxic Respiratory Failure on 4 liters oxygen, Bilateral PE on lovenox, DM, A fib presenting with shortness of breath. Patient was discharged last 03/10/17 after being admitted for respiratory failure secondary to pneumonia, requiring intubation. He was apparently doing well until last Sunday when he started to have chills , shortness of breath, and productive cough. He was noted to be hypoxic today, hence brought to the ER. At the ER, patient did not tolerate Bipap and was placed on NRB. CXR showed new right sided infiltrates. On exam, patient was not in distress, on NRB mask. States he feels somewhat improved compared to admission. Past Medical/Surgical History Medical Problems: (1) Anxiety Status: Chronic (2) Chronic back pain Status: Chronic (3) Insulin dependent type 2 diabetes mellitus Status: Chronic Surgical Problems: (1) History of back surgery Status: Resolved Family History Diabetes mellitus Social History Smoking Status: Former Smoker Smokeless Tobacco Use: No Alcohol Use: none Drug Use: none Marital Status: single Occupational Status: unemployed Multi-Drug Resistant Organisms History of MDRO: No Allergies Coded Allergies: Amoxicillin (Verified Allergy, Intermediate, sob, 03/21/17) PER CONVERSATION WITH ANSELMO AQUINO PA-C - SHE SPOKE WITH PATIENT WHO STATES THAT THIS IS NOT A TRUE ALLERGY HE HAS TOLERATED PENCILLINS IN THE PAST. TOLERATES ROCEPHIN X 5 DOSES AN OUTPATIENT. Atorvastatin (Verified Allergy, Intermediate, diarrhea, 03/21/17) Acetaminophen (Verified Allergy, Unknown, PT STATES "IT INTENSIFIES EFFECT ", 03/21/17) Clindamycin (Verified Allergy, Unknown, SHORTNESS OF BREATH, 03/21/17) Escitalopram (Verified Allergy, Unknown, GI UPSET, 03/21/17) Gabapentin (Verified Allergy, Unknown, CONSTIPATION, 03/21/17) Insulin Aspart (Verified Allergy, Unknown, ALLERGIC TO PRESERVATIVES IN NOVOLOG - OK WITH REGULAR/NPH, 03/21/17) Morphine (Verified Allergy, Unknown, DID NOT TOLERATE PER PT, 03/21/17) Propoxyphene (Verified Allergy, Unknown, "DID CRAZY THINGS", 03/21/17) Sitagliptin (Verified Allergy, Unknown, UNKNOWN RXN, 03/21/17) Adhesives (Verified Adverse Reaction, Unknown, "rips his skin off", ) Dextromethorphan (Verified Adverse Reaction, Unknown, HARD TO BREATHE?, ) Guaifenesin (Verified Adverse Reaction, Unknown, HARD TO BREATHE?, ) Metformin (Verified Adverse Reaction, Unknown, PT STATES "DID NOT WORK", 03/21/17) Home Medications Scheduled Aspirin (Aspirin Ec), 325 MG PO QAM Biotin W/ Vitamins C & E (Hair/Skin/Nails 1250-7.5-7.5 Mcg-mg-Unt), 1 TAB PO DAILY Cholecalciferol (Vitamin D), 5,000 UNITS PO DAILY Diclofenac Sod (Voltaren), 1 APPLN EXT TID Docusate Sodium (Docusate Sodium), 100 MG PO BID Enoxaparin (Lovenox), 80 MG SQ Q12H Insulin Human NPH (Humulin N), 55 UNITS SQ QPM Insulin Human NPH (Humulin N), 75 UNITS SQ QAM Insulin Lispro (Human) (Humalog), 20 UNITS SQ QID Insulin Regular (Human) (Novolin R U-100), 15 UNITS SC TID Levalbuterol Hcl (Levalbuterol), 1 AMP INH Q6H Levofloxacin (Levaquin), 750 MG PO DAILY Magnesium Oxide (Magnesium-Oxide), 400 MG PO QAM Methadone HCl (Methadone HCl), 15 MG PO Q6 Metoprolol Succinate (Metoprolol Succinate ER), 12.5 MG PO QAM Triamcinolone Acetonide (Nasal (Nasacort Allergy 24Hr), 2 SPRAYS BJ DAILY Vitamin E (E-400), 400 MG PO TIDM Zolpidem Tartrate (Ambien), 10 MG PO HS Scheduled PRN Bisacodyl (Bisacodyl), 10 MG RE DAILY PRN for Constipation Diazepam (Valium), 2 MG PO BID PRN for Anxiety/Agitation Ipratropium-Albuterol (Duoneb), 1 TREATMENT INH Q2H PRN for Shortness of Breath Magnesium Hydroxide (Milk of Magnesia), 30 ML PO DAILY PRN for Constipation Nitroglycerin (Nitrostat), 0.4 MG SL PRN PRN for Chest Pain Ondansetron Hcl (Zofran), 8 MG PO Q8 PRN for Nausea Polyethylene Glycol 3350 (Miralax), 17 GM PO QDL PRN for Constipation Sennosides-Docusate Sodium (Senokot S), 1 TAB PO QDL PRN for Constipation Sodium Phosphate/Biphosphate (Fleet Enema), 1 EA IN DAILY PRN for Constipation Tramadol (Ultram), 50 MG PO Q6H PRN for Pain Review of Systems Constitutional- no fever; no weight loss Eyes- no acute visual changes ENT- no sinus drainage; no pharyngitis Pulmonary-(+) as noted above Cardiac- no chest pain, no palpitations, no orthopnea, no dependent edema GI- no nausea, no vomiting, no diarrhea, no melena, no hematochezia - no dysuria, no hematuria Musculoskeletal- no arthralgias, no myalgias Derm- no rashes, no new skin lesions, no changing skin lesions Hematologic- no unusual bruising, no unusual bleeding Lymphatics- no adenopathy Endocrine- no polyuria or polydipsia; no heat or cold intolerance Neuro- no headaches, no focal neurologic symptoms Psych- no anxiety, no depression Physical Exam Vital Signs Date Time Temp Pulse Resp B/P (MAP) Pulse Ox O2 Delivery O2 Flow Rate FiO2 03/22/17 07:17 76 96 60 03/22/17 07:16 76 22 95 BiPAP/CPAP 60 03/22/17 06:00 36.4 83 24 116/73 (87) 92 BiPAP 60.0 03/22/17 05:32 87 97 80 03/22/17 05:00 90 24 98/74 (82) 96 BiPAP 80 03/22/17 04:14 80 03/22/17 04:14 80 03/22/17 04:00 108 26 138/89 (105) 95 BiPAP 80 03/22/17 03:50 114 94 100 03/22/17 03:50 114 22 94 BiPAP/CPAP 100 03/22/17 03:10 36.7 116 32 171/98 79 Non-Rebreather 15.0 03/22/17 02:01 108 148/96 90 Non-Rebreather 15.0 03/22/17 01:01 106 03/21/17 23:51 110 143/87 94 Non-Rebreather 15.0 03/21/17 22:55 37.1 118 28 106/73 95 Nasal Cannula 15.0 Non-Rebreather 03/21/17 22:27 120 26 125/72 95 Nasal Cannula 15.0 Non-Rebreather 03/21/17 21:56 131 33 83 Non-Rebreather 15.0 03/21/17 21:49 130 26 138/81 81 Non-Rebreather 15.0 03/21/17 21:20 88 Non-Rebreather 15.0 03/21/17 21:13 137 03/21/17 21:12 85 Non-Rebreather 03/21/17 21:12 37.5 137 30 113/84 85 Non-Rebreather 15.0 03/21/17 21:12 85 Non-Rebreather General Appearance: WD/WN, + pertinent finding (mild tachypnea, some effort with speaking) Head: normocephalic, atraumatic Eyes: normal inspection, PERRL, EOMI, sclerae normal ENT: normal ENT inspection, hearing grossly normal, pharynx normal Neck: supple, no adenopathy, thyroid normal, no JVD, trachea midline Respiratory/Chest: + accessory muscle use (mild), + pertinent finding ((+) bilateral wheezing) Cardiovascular: regular rate, rhythm, no edema, no JVD, no murmur Abdomen/GI: normal bowel sounds, non tender, soft Back: normal inspection, no CVA tenderness Extremities/Musculoskelatal: normal inspection, no calf tenderness, no pedal edema Neurologic/Psych: freedom of information officer II-XII nml as tested, no motor/sensory deficits, alert, normal mood/affect, oriented x 3 Skin: normal color, warm/dry, no rash Lymphatic: no adenopathy Diagnostics Laboratory Results Results Past 24 Hours Test 03/21/17 20:55 03/21/17 21:12 03/21/17 21:34 03/21/17 21:45 Range/Units White Blood Count 14.37 4.8-10.8 K/uL Red Blood Count 3.81 4.7-6.1 M/uL Hemoglobin 10.5 14.0-18.0 g/dL Hematocrit 33.7 42-52 % Mean Corpuscular Volume 88.5 80-100 fL Mean Corpuscular Hemoglobin 27.6 25-34 pg Mean Corpuscular Hemoglobin Concent 31.2 32-36 g/dl Platelet Count 447 130-400 K/uL Mean Platelet Volume 10.2 7.4-10.4 fL Neutrophils (%) (Auto) 87.4 % Lymphocytes (%) (Auto) 2.5 % Monocytes (%) (Auto) 9.3 % Eosinophils (%) (Auto) 0.1 % Basophils (%) (Auto) 0.1 % Neutrophils # (Auto) 12.57 1.4-6.5 K/uL Lymphocytes # (Auto) 0.36 1.2-3.4 K/uL Monocytes # (Auto) 1.33 0.11-0.59 K/uL Eosinophils # (Auto) 0.01 0-0.5 K/uL Basophils # (Auto) 0.01 0-0.2 K/uL RDW Standard Deviation 57.7 36.4-46.3 fL RDW Coefficient of Variation 17.9 11.5-14.5 % Immature Granulocyte % (Auto) 0.6 % Immature Granulocyte # (Auto) 0.09 0.00-0.02 K/uL Nucleated RBC Absolute Count (auto) 0.10 0-0 K/uL Nucleated Red Blood Cells % 0.7 % Prothrombin Time 12.0 9.0-12.0 SECONDS Prothromb Time International Ratio 1.1 0.9-1.1 Activated Partial Thromboplast Time 24.0 21.0-31.0 SECONDS Partial Thromboplastin Ratio 0.9 Sodium Level 137 136-145 mmol/L Potassium Level 4.0 3.5-5.1 mmol/L Chloride Level 99 98-107 mmol/L Carbon Dioxide Level 31 21-32 mmol/L Anion Gap 6.0 3-11 mmol/L Blood Urea Nitrogen 27 7-18 mg/dl Creatinine 0.96 0.60-1.40 mg/dl Est Creatinine Clear Calc Drug Dose 126.8 ml/min Estimated GFR () 103.4 Estimated GFR (Non- 89.3 BUN/Creatinine Ratio 28.0 10-20 Random Glucose 164 70-99 mg/dl Calcium Level 9.7 8.5-10.1 mg/dl Magnesium Level 1.8 1.8-2.4 mg/dl Total Bilirubin 0.2 0.2-1 mg/dl Direct Bilirubin < 0.1 0-0.2 mg/dl Aspartate Amino Transf (AST/SGOT) 52 15-37 U/L Alanine Aminotransferase (ALT/SGPT) 18 12-78 U/L Alkaline Phosphatase 104 45-117 U/L Total Creatine Kinase 54 39-308 U/L Creatine Kinase MB 1.5 0.5-3.6 ng/ml Creatine Kinase MB Ratio 2.8 0-3.0 Troponin I < 0.015 0-0.045 ng/ml Pro-B-Type Natriuretic Peptide 879 0-900 pg/ml Total Protein 7.4 6.4-8.2 gm/dl Albumin 2.4 3.4-5.0 gm/dl Lipase 38 73-393 U/L Thyroid Stimulating Hormone (TSH) 1.940 0.300-4.500 uIu/ml Bedside Glucose 165 70-99 mg/dl Bedside Lactic Acid Venous 2.45 0.90-1.70 mmol/L Influenza Type A Antigen Neg for Influ A NEG Influenza Type B Antigen Neg for Influ B NEG Test 03/21/17 23:29 03/22/17 02:03 03/22/17 05:08 03/22/17 05:24 Range/Units Bedside Glucose 177 70-99 mg/dl Arterial Blood pH 7.37 7.35-7.45 Arterial Blood Partial Pressure CO2 49 35-46 mmHg Arterial Blood Partial Pressure O2 60 80-95 mm/Hg Arterial Blood HCO3 28 19-24 mmol/L Arterial Blood Oxygen Saturation 87.7 90-95 % Arterial Blood Base Excess 2.0 -9-1.8 mEq/L Arterial Blood Gas Delivery 7 L Devin Test POS Pass Sodium Level 137 136-145 mmol/L Potassium Level 4.5 3.5-5.1 mmol/L Chloride Level 102 98-107 mmol/L Carbon Dioxide Level 28 21-32 mmol/L Anion Gap 6.0 3-11 mmol/L Blood Urea Nitrogen 24 7-18 mg/dl Creatinine 0.57 0.60-1.40 mg/dl Est Creatinine Clear Calc Drug Dose 210.8 ml/min Estimated GFR () 134.9 Estimated GFR (Non- 116.4 BUN/Creatinine Ratio 42.3 10-20 Random Glucose 241 70-99 mg/dl Lactic Acid Level 1.1 0.4-2.0 mmol/L Calcium Level 8.9 8.5-10.1 mg/dl Blood Gas Sample Site R Radial Bedside Blood Gas pH (LAB) 7.39 7.35-7.45 Bedside Blood Gas pCO2 (LAB) 46 35-46 mmHg Bedside Blood Gas pO2 (LAB) 105 80-95 mmHg Bedside Blood Gas HCO3 (LAB) 28 19-24 meq/L Bedside Blood Gas Total CO2 29 24-31 mEq/l Bedside Blood Gas Base Excess (LAB) 3.0 -9-1.8 meq/L Bedside Blood Gas O2 Saturation 98.0 90-95 % Oxygen Delivery Device BIPAP Bedside Oxygen Rate (breaths/min) 12 Bedside FiO2 80 % Blood Gas IPAP 12 Test 03/22/17 06:23 03/22/17 08:00 Range/Units Bedside Glucose 260 70-99 mg/dl Urine Color YELLOW Urine Appearance CLEAR CLEAR Urine pH 6.0 4.5-7.5 Urine Specific [place] 1.026 1.000-1.030 Urine Protein 1+ NEG Urine Glucose (UA) NEG NEG Urine Ketones NEG NEG Urine Occult Blood NEG NEG Urine Nitrite NEG NEG Urine Bilirubin NEG NEG Urine Urobilinogen NEG NEG Urine Leukocyte Esterase NEG NEG Urine WBC (Auto) 1-5 0-5 /hpf Urine RBC (Auto) 0-4 0-4 /hpf Urine Hyaline Casts (Auto) 0 0-5 /lpf Urine Epithelial Cells (Auto) 0-5 0-5 /lpf Urine Bacteria (Auto) NEG NEG Microbiology Results 03/21/17 Blood Culture, Received Pending 03/21/17 Blood Culture, Received Pending 03/22/17 MRSA DNA Surveillance Screen - Final, Complete Specimen Negative for MRSA by DNA Probe 03/22/17 Gram Stain - Final, Complete 03/22/17 Sputum Culture - Final, Complete 03/22/17 Urine Culture, Received Pending Diagnostic Radiology cxr 1. Cardiomegaly with mild pulmonary vascular congestion. 2. There is dense airspace consolidation again seen in the left midlung. 3. Patchy airspace consolidation is also identified throughout the right lung. This could represent pneumonia versus interstitial edema. Clinical correlation will be required. 4. Small pleural effusions are suspected. EKG sinus tachycardia Impression Assessment and Plan 56 year old male with history of small cell CA, Chronic Hypoxic Respiratory Failure on 4 liters oxygen, Bilateral PE on lovenox, DM, A fib presenting with shortness of breath. 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, COPD EXACERBATION HISTORY OF LUNG CA, RADIATION PNEUMONITIS - ff up cultures - empiric Vanc, Cefepime, Levaquin IV solumedrol nebs Pulmonary consulted monitor in ICU SEPSIS SECONDARY TO ABOVE - ff up lactic acid IV fluids IV antibiotics HISTORY OF SMALL CELL CA - palliative care consulted last admission patient signed POLST form, DNR on exam, patient states he wants to be intubated if necessary, but no CPR/ Shock may need to reconsult Palliative Care B/L PE - continue Lovenox BID DM - pharmacy glycemic control ATRIAL FIBRILLATION - on metoprolol, Lovenox hold ASA as patient already on lovenox DVT PROPHYLAXIS - Lovenox CODE STATUS - patient prefers intubation but no CPR/no Shock DISPOSITION - anticipate return to Rehab Advanced Directives Existing Living Will: Yes Existing Power of Box Spring Frame Builder: Yes VTE Prophylaxis VTE Risk Assessment Done? Y/N: Yes Risk Level: High Given or contraindicated: Enoxaparin (Lovenox)SQ
--- NOTE | 2017-03-22 10:54 | Pharmacy Progress Note ---
Pharmacy Abx Dose Short Note Date of Service Mar 22, 2017. Assessment & Plan Pharmacy is consulted for: * Glycemic control * Vancomycin, Levofloxacin + Cefepime IV Assessment * 56 year old male with h/o type 2 DM admitted for chills, cough, hypoxia, acute on chronic respiratory failure and possible sepsis * He was recently hospitalized for pneumonia and was discharged on 03/10/17, so he does have risk factors for resistant organisms * He is currently on BiPAP/CPAP FiO2 60% with sat's in the 92-96 range; receiving bronchodilators and steroids * He is afebrile, alert and oriented X 3, non hypotensive and non tachycardic - currently in NSR (h/o a fib) * Blood cx's drawn yesterday, urine cx collected today however UA was negative, MRSA nasal screening was negative, Influenza A/B screening negative * Sputum was collected this AM but per gram stain it appears the specimen likely has upper airway contamination * CXR: consolidation L mid-lung, patchy airspace consolidation R lung: pneumonia vs interstitial edema * Renal fxn at baseline * Multiple stressors present leading to hyperglycemia this AM: high dose steroids, infection. Fasting BSG 260 this AM. Given current level of hyperglycemia and ongoing stressors an insulin infusion would be best to quickly gain control of hyperglycemia safely. Plan Vancomycin * Pharmacy has dosed vancomycin for this patient in the past * 2000mg (~16mg/kg) given last PM. No further doses have been administered as of this AM. Will begin a maintenance dose of 2500mg (20mg/kg) IV Q 10 hours as he did not received a full loading dose. This maintenance dose had produced desirable troughs in the past. * Goal trough level for pneumonia/sepsis : 15 to 20 mcg/mL * Trough level ordered for: 03/23/17 w/ 4th maintenance dose * May consider deescalation of abx therapy given MRSA nasal swab was negative greatly lessening the risk of MRSA pneumonia, plus both levofloxacin and cefepime offer coverage of DRSP and MSSA Cefepime * Given body habitus and renal fxn, 2gm IV Q 8 hours would be most appropriate; eCrCl >100cc/min Levofloxacin * QTc 424 * 750mg IV Q 24 hrs indicated for pulm infxn w/ eCrCl > 50cc/min Glycemic Control * IV insulin infusion protocol per moderate stress doses initially and titrated to goal 110-190mg/dL per adjustment calculator * Reevaluate insulin doses with each step down in steroid dose. Pharmacy will continue to follow and will adjust dose/frequency as necessary. Thank you.
[2017-03-22] MEDS ORDERED: PANTOprazole INJ 40 MG in SYRINGE 0 ML IV SCH (11:00)
[2017-03-22] MEDS ORDERED: INSULIN PROTOCOL GOAL RANGE ONE (11:00)
[2017-03-22] MEDS: CEFEPIME IV 2,000 MG in SYRINGE 7.5 ML IV SCH ×2 (13:18→22:00)
[2017-03-22] MEDS: ENOXAPARIN 80 MG/0.8 ML SYR SQ SCH ×3 (13:18→16:54)
--- NOTE | 2017-03-22 13:24 | Medical Consult ---
Consultation Date of Consultation: Mar 22, 2017. Attending Physician: Anna De León D.O. History of Present Illness Oncology Consult: Evaluation and management of small-cell lung cancer. Date of consultation 03/22/[address] Angela. HPI: 56-year-old male, he is a known case of small-cell lung cancer, S/P 4 cycles of chemotherapy with carboplatin and Etoposide between 10/10/2016-2016. He also received radiation treatment to the large mediastinal and left lung mass at that time. Recently he was admitted at [facility] on 2 occasions for radiation induced pneumonitis, right lung pneumonia, required ventilator support, he was then discharged at the local [facility] with nasal cannula supplemental oxygen around 4-5 L per minute, recently I saw him in the office, he came to the office in the wheelchair last week. Now he's admitted at [facility] ICU on 03/21/2017 for increasing shortness of breath, fever, chills, productive cough, hypoxemia. In the ER he could not tolerate BiPAP, he was then placed on nonrebreather, chest x-ray showed some new infiltrates involving the right lung suspicious for the pneumonia. Before this ER visit, he was not on any steroid therapy, now started him on broad-spectrum antibiotic with Levaquin, cefepime, vancomycin, also started him on methylprednisolone. REVIEW OF SYSTEMS: GENERAL: No change in weight, he is feeling weak and tired, no fever at this time but he had a fever in the [facility] earlier before the admission in the hospital denies any increasing sweats or chills. SKIN: No skin rash, no bruising. HEAD: No headache, no dizziness. EYES: No change in the vision, no diplopia, EARS: No earache ,no tinnitus, NOSE: No epistaxis, No nasal discharge or stuffiness, MOUTH: No sores, no dysphagia, no hoarseness of voice, NECK: No lumps, No swelling in thyroid area. No stiffness. PULMONARY: as described above, CARDIOVASCULAR: No anginal chest pain, no PND, no orthopnea. No palpitation, no leg edema. No syncope. GASTRIINTESTINAL: No abdominal pain, no nausea or vomiting. No diarrhea, No constipation. No blood in stool or black tarry stools. No abdominal distention. UROLOGIC: No burning urination. No hematuria. MUSCULOSKELETAL: chronic back pain present, no new joint pain, HEMATOLOGIC: mild anemia present, no bleeding disorder, No bruising. NEUROLOGIC: No seizures, no focal weakness, no speech difficulty, No memory disturbances. His tingling and numbness of the both lower extremities related to the underlying neuropathy. PSYCHRIATRIC: No depression, anxiety present. No psychosis. PAST MEDICAL/SURGICAL HISTORY: - Chronic back pain, he is on methadone. He had back surgery in the past. - Anxiety disorders - Diabetes mellitus. - Pulmonary embolism, he is on Lovenox therapy. He had a left upper extremity DVT earlier. - Bilateral lower extremity neuropathy symptoms. 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 - Bilateral lower extremity DVT. SOCIAL HISTORY: former smoker, denies any EtOH abuse. No IVDA. FAMILY HISTORY: not significant. MEDICATIONS: please review his chart for detailed list of medications. ALLERGY: in his chart several medications has been reported in the allergy listing, not sure about the exact nature of the allergy that he had with each drug. PHYSICAL EXAMINATION: - Alert and oriented x3, well built man, somewhat in respiratory distress, receiving oxygen therapy, O2 saturation has dropped down to around 80%. - HEENT: no icterus, no pallor, Throat: Normal. - Neck: No palpable cervical lymphadenopathy. - Abdomen: soft, nontender, no hepatomegaly, no splenomegaly. - No focal neuro deficit. - Extremities: no finger clubbing, no leg edema. LABS: - WBC 8800, H&H of 9.5/31.6, Platelet count of 361,000 (03/20/2017) Blood workup done on 03/21/2017: - WBC 14,300, H&H of 10.5/3.7, Platelet count of 447,000. - BUN/creatinine: 24/0.5, sodium 137, calcium 8.9 - Normal liver function test other than ALT around 52. - ProBNP 879. - Blood culture, urine culture --> pending. IMAGING: - Chest x-ray done on 03/21/2017 --> Dence airspace consolidation in the left midlung. Patchy airspace consolidation identified throughout the right lung. Small pleural effusion suspected. ASSESSMENT AND PLAN: 56-year-old male, a case of small cell carcinoma of the lung with extensive mediastinal lymph node involvement, still limited stage disease involving the chest only, S/P 4 cycles of chemotherapy with carboplatin and Etoposide and also radiation treatment to the large mediastinal and the left lung mass. Earlier in January 2017 he was admitted for radiation induced pneumonitis, treated with the steroid therapy antibiotic treatment, he was readmitted with the acute hypoxic respiratory failure, required mechanical ventilatory support but then he recovered well to great extent then he was discharged to [facility] with nasal cannula supplemental oxygen at 4 to 5 L per minute, last week he was ambulating with the help of the wheelchair, last night she came to the ER for increasing shortness of breath, fever, once again found to hypoxemia, chest x-ray shows increasing infiltrate in the right lung, previously noted left lung consultation noted, now he's admitted in the ICU, receiving broad-spectrum antibiotic treatment, he also had a lower extremity DVT and pulmonary embolism during the last hospitalization, he is on Lovenox therapy, no new bleeding complications. It is possible that he may have some residual small-cell lung cancer in the chest but current imaging study is most likely related to the radiation induced pneumonitis, infection, possible lymphangitic spread. His overall clinical condition is not fit enough for any kind of systemic chemotherapy for the small- cell lung cancer at this time. Will continue the current medical management and will see how he does. He suggests that he would like to have mechanical ventilator support if needed but does not want cardiac resuscitation. I spoke with the patient's daughter in law and his son on the phone and discussed about his overall clinical condition, they also having meeting with the ICU physician and other team members later today. Thanks for the consultation. 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 (8) PNA (pneumonia) Status: Acute (9) Pulmonary emboli Status: Acute (10) Respiratory failure Status: Acute (11) Sepsis Status: Acute (12) Sepsis Status: Acute Family History Diabetes mellitus Social History Smoking Status: Former Smoker Smokeless Tobacco Use: No Alcohol Use: none Drug Use: none Marital Status: single Housing Status: lives alone Occupation Status: unemployed Allergies Coded Allergies: Amoxicillin (Verified Allergy, Intermediate, sob, 03/21/17) PER CONVERSATION WITH ANSELMO AQUINO PA-C - SHE SPOKE WITH PATIENT WHO STATES THAT THIS IS NOT A TRUE ALLERGY HE HAS TOLERATED PENCILLINS IN THE PAST. TOLERATES ROCEPHIN X 5 DOSES AN OUTPATIENT. Atorvastatin (Verified Allergy, Intermediate, diarrhea, 03/21/17) Acetaminophen (Verified Allergy, Unknown, PT STATES "IT INTENSIFIES EFFECT ", 03/21/17) Clindamycin (Verified Allergy, Unknown, SHORTNESS OF BREATH, 03/21/17) Escitalopram (Verified Allergy, Unknown, GI UPSET, 03/21/17) Gabapentin (Verified Allergy, Unknown, CONSTIPATION, 03/21/17) Insulin Aspart (Verified Allergy, Unknown, ALLERGIC TO PRESERVATIVES IN NOVOLOG - OK WITH REGULAR/NPH, 03/21/17) Morphine (Verified Allergy, Unknown, DID NOT TOLERATE PER PT, 03/21/17) Propoxyphene (Verified Allergy, Unknown, "DID CRAZY THINGS", 03/21/17) Sitagliptin (Verified Allergy, Unknown, UNKNOWN RXN, 03/21/17) Adhesives (Verified Adverse Reaction, Unknown, "rips his skin off", ) Dextromethorphan (Verified Adverse Reaction, Unknown, HARD TO BREATHE?, ) Guaifenesin (Verified Adverse Reaction, Unknown, HARD TO BREATHE?, ) Metformin (Verified Adverse Reaction, Unknown, PT STATES "DID NOT WORK", 03/21/17) Current Inpatient Medications Current Inpatient Medications Medications (Trade) Dose Ordered Sig/Prince Route Start Time Stop Time Status Last Admin Dose Admin Cefepime HCl (Consult) 1 ea DAILY PRN N/A 03/22/17 04:47 04/21/17 04:46 Methylprednisolone Sodium Succinate 60 mg/Syringe 0.96 ml @ 1.5 mls/min Q8H IV 03/22/17 10:00 04/21/17 09:59 03/22/17 08:39 1.5 MLS/MIN Sodium Chloride 1,000 ml @ 125 mls/hr Q8H IV 03/22/17 04:00 04/21/17 03:59 03/22/17 12:10 125 MLS/HR Miscellaneous Information (Consult Glycemic Management Pharmacy) 1 ea DAILY PRN N/A 03/22/17 03:53 04/21/17 03:52 Diazepam (Valium Tab) 2 mg BID PRN PO 03/22/17 02:00 04/21/17 01:59 Docusate Sodium (coLACE CAP) 100 mg BID PO 03/22/17 09:00 04/21/17 08:59 Enoxaparin Sodium (Lovenox Inj) 80 mg Q12H SQ 03/22/17 14:00 04/21/17 13:59 03/22/17 13:18 80 MG Magnesium Oxide (Mag-Ox Tab) 400 mg QAM PO 03/22/17 09:00 04/21/17 08:59 03/22/17 08:39 400 MG Methadone HCl (Dolophine Tab) 15 mg Q6H PO 03/22/17 08:00 04/05/17 07:59 03/22/17 13:18 15 MG Metoprolol Succinate (Toprol Xl Tab) 12.5 mg QAM PO 03/22/17 09:00 04/21/17 08:59 03/22/17 08:39 12.5 MG Tramadol HCl (Ultram Tab) 50 mg Q6H PRN PO 03/22/17 02:00 04/21/17 01:59 Triamcinolone Acetonide (Nasacort Allergy 24hr) 2 sprays DAILY BJ 03/22/17 09:00 04/21/17 08:59 03/22/17 08:38 2 SPRAYS Zolpidem Tartrate (Ambien Tab) 10 mg HS PO 03/22/17 21:00 04/21/17 20:59 Dexmedetomidine HCl 200 mcg/ Sodium Chloride 50 ml @ 0 mls/hr Q0M PRN IV 03/22/17 03:42 03/26/17 03:41 03/22/17 08:38 6 MLS/HR Levofloxacin (Consult) 1 ea UD PRN N/A 03/22/17 05:00 04/21/17 04:59 Vancomycin HCl (Consult) 1 ea UD PRN N/A 03/22/17 05:00 04/21/17 04:59 Ipratropium Smoot (Atrovent 0.02% 0.5MG/2.5ML Neb) 0.5 mg Q4R INH 03/22/17 08:00 04/21/17 07:59 03/22/17 11:20 0.5 MG Levalbuterol (Xopenex 1.25MG/ 0.5ML Neb) 1.25 mg Q4R INH 03/22/17 08:00 04/21/17 07:59 03/22/17 11:20 1.25 MG Cefepime HCl 2000 mg/Syringe 20 ml @ 5 mls/min Q8 IV 03/22/17 14:00 03/29/17 13:59 03/22/17 13:18 5 MLS/MIN Insulin Human Regular 250 units/ Sodium Chloride 252.5 ml @ 0 mls/hr Q24H IV 03/22/17 06:45 04/21/17 06:44 03/22/17 07:40 3.1 MLS/HR Insulin Aspart (novoLOG ASPART) SLIDING SCALE PCHS SC 03/22/17 08:00 04/21/17 07:59 Vancomycin HCl 2500 mg/Sodium Chloride 550 ml @ 200 mls/hr Q10H IV 03/22/17 07:00 03/29/17 06:59 03/22/17 07:39 200 MLS/HR Levofloxacin 750 mg/Prmx 150 ml @ 100 mls/hr Q24H IV 03/23/17 03:00 03/30/17 02:59 Famotidine (Pepcid Tab) 20 mg BID PO 03/23/17 09:00 04/22/17 08:59 Physical Exam Date Time Temp Pulse Resp B/P (MAP) Pulse Ox O2 Delivery O2 Flow Rate FiO2 03/22/17 12:00 82 20 120/73 (89) 92 BiPAP 60 03/22/17 12:00 92 BiPAP 60 03/22/17 11:20 94 24 88 Mask 15.0 03/22/17 10:37 76 17 115/83 (94) 94 BiPAP 60.0 03/22/17 08:00 92 BiPAP 60.0 60 03/22/17 08:00 BiPAP 60 03/22/17 08:00 75 16 129/83 (98) 93 BiPAP 60.0 03/22/17 07:17 76 96 60 03/22/17 07:16 76 22 95 BiPAP/CPAP 60 03/22/17 06:00 36.4 83 24 116/73 (87) 92 BiPAP 60.0 03/22/17 05:32 87 97 80 03/22/17 05:00 90 24 98/74 (82) 96 BiPAP 80 03/22/17 04:14 80 03/22/17 04:14 80 03/22/17 04:00 108 26 138/89 (105) 95 BiPAP 80 03/22/17 03:50 114 94 100 03/22/17 03:50 114 22 94 BiPAP/CPAP 100 03/22/17 03:10 36.7 116 32 171/98 79 Non-Rebreather 15.0 03/22/17 02:01 108 148/96 90 Non-Rebreather 15.0 03/22/17 01:01 106 03/21/17 23:51 110 143/87 94 Non-Rebreather 15.0 03/21/17 22:55 37.1 118 28 106/73 95 Nasal Cannula 15.0 Non-Rebreather 03/21/17 22:27 120 26 125/72 95 Nasal Cannula 15.0 Non-Rebreather 03/21/17 21:56 131 33 83 Non-Rebreather 15.0 03/21/17 21:49 130 26 138/81 81 Non-Rebreather 15.0 03/21/17 21:20 88 Non-Rebreather 15.0 03/21/17 21:13 137 03/21/17 21:12 85 Non-Rebreather 03/21/17 21:12 37.5 137 30 113/84 85 Non-Rebreather 15.0 03/21/17 21:12 85 Non-Rebreather Laboratory Results Last 24 Hours Test 03/21/17 20:55 03/21/17 21:12 03/21/17 21:34 03/21/17 21:45 White Blood Count 14.37 K/uL Red Blood Count 3.81 M/uL Hemoglobin 10.5 g/dL Hematocrit 33.7 % Mean Corpuscular Volume 88.5 fL Mean Corpuscular Hemoglobin 27.6 pg Mean Corpuscular Hemoglobin Concent 31.2 g/dl Platelet Count 447 K/uL Mean Platelet Volume 10.2 fL Neutrophils (%) (Auto) 87.4 % Lymphocytes (%) (Auto) 2.5 % Monocytes (%) (Auto) 9.3 % Eosinophils (%) (Auto) 0.1 % Basophils (%) (Auto) 0.1 % Neutrophils # (Auto) 12.57 K/uL Lymphocytes # (Auto) 0.36 K/uL Monocytes # (Auto) 1.33 K/uL Eosinophils # (Auto) 0.01 K/uL Basophils # (Auto) 0.01 K/uL RDW Standard Deviation 57.7 fL RDW Coefficient of Variation 17.9 % Immature Granulocyte % (Auto) 0.6 % Immature Granulocyte # (Auto) 0.09 K/uL Nucleated RBC Absolute Count (auto) 0.10 K/uL Nucleated Red Blood Cells % 0.7 % Prothrombin Time 12.0 SECONDS Prothromb Time International Ratio 1.1 Activated Partial Thromboplast Time 24.0 SECONDS Partial Thromboplastin Ratio 0.9 Sodium Level 137 mmol/L Potassium Level 4.0 mmol/L Chloride Level 99 mmol/L Carbon Dioxide Level 31 mmol/L Anion Gap 6.0 mmol/L Blood Urea Nitrogen 27 mg/dl Creatinine 0.96 mg/dl Est Creatinine Clear Calc Drug Dose 126.8 ml/min Estimated GFR () 103.4 Estimated GFR (Non- 89.3 BUN/Creatinine Ratio 28.0 Random Glucose 164 mg/dl Calcium Level 9.7 mg/dl Magnesium Level 1.8 mg/dl Total Bilirubin 0.2 mg/dl Direct Bilirubin < 0.1 mg/dl Aspartate Amino Transf (AST/SGOT) 52 U/L Alanine Aminotransferase (ALT/SGPT) 18 U/L Alkaline Phosphatase 104 U/L Total Creatine Kinase 54 U/L Creatine Kinase MB 1.5 ng/ml Creatine Kinase MB Ratio 2.8 Troponin I < 0.015 ng/ml Pro-B-Type Natriuretic Peptide 879 pg/ml Total Protein 7.4 gm/dl Albumin 2.4 gm/dl Lipase 38 U/L Thyroid Stimulating Hormone (TSH) 1.940 uIu/ml Bedside Glucose 165 mg/dl Bedside Lactic Acid Venous 2.45 mmol/L Influenza Type A Antigen Neg for Influ A Influenza Type B Antigen Neg for Influ B Test 03/21/17 23:29 03/22/17 02:03 03/22/17 05:08 03/22/17 05:24 Bedside Glucose 177 mg/dl Arterial Blood pH 7.37 Arterial Blood Partial Pressure CO2 49 mmHg Arterial Blood Partial Pressure O2 60 mm/Hg Arterial Blood HCO3 28 mmol/L Arterial Blood Oxygen Saturation 87.7 % Arterial Blood Base Excess 2.0 mEq/L Arterial Blood Gas Delivery 7 L Devin Test POS Pass Sodium Level 137 mmol/L Potassium Level 4.5 mmol/L Chloride Level 102 mmol/L Carbon Dioxide Level 28 mmol/L Anion Gap 6.0 mmol/L Blood Urea Nitrogen 24 mg/dl Creatinine 0.57 mg/dl Est Creatinine Clear Calc Drug Dose 210.8 ml/min Estimated GFR () 134.9 Estimated GFR (Non- 116.4 BUN/Creatinine Ratio 42.3 Random Glucose 241 mg/dl Lactic Acid Level 1.1 mmol/L Calcium Level 8.9 mg/dl Blood Gas Sample Site R Radial Bedside Blood Gas pH (LAB) 7.39 Bedside Blood Gas pCO2 (LAB) 46 mmHg Bedside Blood Gas pO2 (LAB) 105 mmHg Bedside Blood Gas HCO3 (LAB) 28 meq/L Bedside Blood Gas Total CO2 29 mEq/l Bedside Blood Gas Base Excess (LAB) 3.0 meq/L Bedside Blood Gas O2 Saturation 98.0 % Oxygen Delivery Device BIPAP Bedside Oxygen Rate (breaths/min) 12 Bedside FiO2 80 % Blood Gas IPAP 12 Test 03/22/17 06:23 03/22/17 08:00 03/22/17 09:19 03/22/17 10:35 Bedside Glucose 260 mg/dl 244 mg/dl 227 mg/dl Urine Color YELLOW Urine Appearance CLEAR Urine pH 6.0 Urine Specific Burt 1.026 Urine Protein 1+ Urine Glucose (UA) NEG Urine Ketones NEG Urine Occult Blood NEG Urine Nitrite NEG Urine Bilirubin NEG Urine Urobilinogen NEG Urine Leukocyte Esterase NEG Urine WBC (Auto) 1-5 /hpf Urine RBC (Auto) 0-4 /hpf Urine Hyaline Casts (Auto) 0 /lpf Urine Epithelial Cells (Auto) 0-5 /lpf Urine Bacteria (Auto) NEG Test 03/22/17 11:59 03/22/17 13:08 Bedside Glucose 190 mg/dl 178 mg/dl
[2017-03-22] MEDS ORDERED: NURSING VERBAL MED ORDER ONE ×2 (14:45→19:00)
[2017-03-22] MEDS ORDERED: LORAZEPAM 1 MG TAB PO STA (14:52)
--- NOTE | 2017-03-22 16:39 | Palliative Care Consultation ---
Consultation Date of Consultation: Mar 22, 2017. Requesting Physician: Hero Ragsdale PA-C Attending Physician: Dr. De León Reason for Consultation: Goals of care History of Present Illness This 56 year old male patient with small lung cancer, chronic respiratory failure, and others listed below, presented to the hospital yesterday from [facility] with respiratory failure requiring bipap. Patient was recently in [facility] for a prolonged and complicated stay for radiation pneumonitis/pneumonia, DVT/PE, and respiratory failure-- had three intubations/extubations during that time. He was eventually discharged to [facility] for rehab with a completed POLST form that stated: DNR, limited additional interventions (which includes NO intubation), abx if life can be prolonged, and trial of artificial hydration/ nutrition. He returns now with hypoxia, CXR report reveals cardiomegaly with mild vascular congestion, dense airspace consolidation in left midlung, patchy airspace consolidation throughout right lung representing pneumonia vs. interstitial edema, and suspected small pleural effusions. Patient is physically deconditioned. His family states he has been on a steady decline and they truly believe he is at the end of life. Upon admission, patient changed his code status and stated that he now does want to be intubated if needed. Palliative care is reconsulted on this admission to assist with establishing goals of care. Family meeting held in room 102. Please see details below. 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 TOLERATES ROCEPHIN X 5 DOSES AN OUTPATIENT. Atorvastatin (Verified Allergy, Intermediate, diarrhea, 03/21/17) Acetaminophen (Verified Allergy, Unknown, PT STATES "IT INTENSIFIES EFFECT ", 03/21/17) Clindamycin (Verified Allergy, Unknown, SHORTNESS OF BREATH, 03/21/17) Escitalopram (Verified Allergy, Unknown, GI UPSET, 03/21/17) Gabapentin (Verified Allergy, Unknown, CONSTIPATION, 03/21/17) Insulin Aspart (Verified Allergy, Unknown, ALLERGIC TO PRESERVATIVES IN NOVOLOG - OK WITH REGULAR/NPH, 03/21/17) Morphine (Verified Allergy, Unknown, DID NOT TOLERATE PER PT, 03/21/17) Propoxyphene (Verified Allergy, Unknown, "DID CRAZY THINGS", 03/21/17) Sitagliptin (Verified Allergy, Unknown, UNKNOWN RXN, 03/21/17) Adhesives (Verified Adverse Reaction, Unknown, "rips his skin off", ) Dextromethorphan (Verified Adverse Reaction, Unknown, HARD TO BREATHE?, ) Guaifenesin (Verified Adverse Reaction, Unknown, HARD TO BREATHE?, ) Metformin (Verified Adverse Reaction, Unknown, PT STATES "DID NOT WORK", 03/21/17) Medications Current Inpatient Medications Medications (Trade) Dose Ordered Sig/Prince Route Start Time Stop Time Status Last Admin Dose Admin Cefepime HCl (Consult) 1 ea DAILY PRN N/A 03/22/17 04:47 04/21/17 04:46 Methylprednisolone Sodium Succinate 60 mg/Syringe 0.96 ml @ 1.5 mls/min Q8H IV 03/22/17 10:00 04/21/17 09:59 03/22/17 08:39 1.5 MLS/MIN Sodium Chloride 1,000 ml @ 125 mls/hr Q8H IV 03/22/17 04:00 04/21/17 03:59 03/22/17 12:10 125 MLS/HR Miscellaneous Information (Consult Glycemic Management Pharmacy) 1 ea DAILY PRN N/A 03/22/17 03:53 04/21/17 03:52 Diazepam (Valium Tab) 2 mg BID PRN PO 03/22/17 02:00 04/21/17 01:59 Docusate Sodium (coLACE CAP) 100 mg BID PO 03/22/17 09:00 04/21/17 08:59 Enoxaparin Sodium (Lovenox Inj) 80 mg Q12H SQ 03/22/17 14:00 04/21/17 13:59 Magnesium Oxide (Mag-Ox Tab) 400 mg QAM PO 03/22/17 09:00 04/21/17 08:59 03/22/17 08:39 400 MG Methadone HCl (Dolophine Tab) 15 mg Q6H PO 03/22/17 08:00 04/05/17 07:59 03/22/17 13:18 15 MG Metoprolol Succinate (Toprol Xl Tab) 12.5 mg QAM PO 03/22/17 09:00 04/21/17 08:59 03/22/17 08:39 12.5 MG Tramadol HCl (Ultram Tab) 50 mg Q6H PRN PO 03/22/17 02:00 04/21/17 01:59 Triamcinolone Acetonide (Nasacort Allergy 24hr) 2 sprays DAILY BJ 03/22/17 09:00 04/21/17 08:59 03/22/17 08:38 2 SPRAYS Zolpidem Tartrate (Ambien Tab) 10 mg HS PO 03/22/17 21:00 04/21/17 20:59 Dexmedetomidine HCl 200 mcg/ Sodium Chloride 50 ml @ 0 mls/hr Q0M PRN IV 03/22/17 03:42 03/26/17 03:41 03/22/17 08:38 6 MLS/HR Levofloxacin (Consult) 1 ea UD PRN N/A 03/22/17 05:00 04/21/17 04:59 Vancomycin HCl (Consult) 1 ea UD PRN N/A 03/22/17 05:00 04/21/17 04:59 Ipratropium [place] (Atrovent 0.02% 0.5MG/2.5ML Neb) 0.5 mg Q4R INH 03/22/17 08:00 04/21/17 07:59 03/22/17 14:25 0.5 MG Levalbuterol (Xopenex 1.25MG/ 0.5ML Neb) 1.25 mg Q4R INH 03/22/17 08:00 04/21/17 07:59 03/22/17 14:25 1.25 MG Cefepime HCl 2000 mg/Syringe 20 ml @ 5 mls/min Q8 IV 03/22/17 14:00 03/29/17 13:59 03/22/17 13:18 5 MLS/MIN Insulin Human Regular 250 units/ Sodium Chloride 252.5 ml @ 0 mls/hr Q24H IV 03/22/17 06:45 04/21/17 06:44 03/22/17 07:40 3.1 MLS/HR Insulin Aspart (novoLOG ASPART) SLIDING SCALE PCHS SC 03/22/17 08:00 04/21/17 07:59 Vancomycin HCl 2500 mg/Sodium Chloride 550 ml @ 200 mls/hr Q10H IV 03/22/17 07:00 03/29/17 06:59 03/22/17 07:39 200 MLS/HR Levofloxacin 750 mg/Prmx 150 ml @ 100 mls/hr Q24H IV 03/23/17 03:00 03/30/17 02:59 Famotidine (Pepcid Tab) 20 mg BID PO 03/23/17 09:00 04/22/17 08:59 Physical Exam Date Time Temp Pulse Resp B/P (MAP) Pulse Ox O2 Delivery O2 Flow Rate FiO2 03/22/17 16:06 82 22 124/78 (93) 92 BiPAP 60 03/22/17 16:00 91 BiPAP 60 03/22/17 14:29 83 24 119/78 (92) 95 BiPAP 60 03/22/17 14:25 92 22 93 BiPAP/CPAP 60 03/22/17 12:00 82 20 120/73 (89) 92 BiPAP 60 03/22/17 12:00 92 BiPAP 60 03/22/17 11:20 94 24 88 Mask 15.0 03/22/17 10:37 76 17 115/83 (94) 94 BiPAP 60.0 03/22/17 08:00 92 BiPAP 60.0 60 03/22/17 08:00 BiPAP 60 03/22/17 08:00 75 16 129/83 (98) 93 BiPAP 60.0 03/22/17 07:17 76 96 60 03/22/17 07:16 76 22 95 BiPAP/CPAP 60 03/22/17 06:00 36.4 83 24 116/73 (87) 92 BiPAP 60.0 03/22/17 05:32 87 97 80 03/22/17 05:00 90 24 98/74 (82) 96 BiPAP 80 03/22/17 04:14 80 03/22/17 04:14 80 03/22/17 04:00 108 26 138/89 (105) 95 BiPAP 80 03/22/17 03:50 114 94 100 03/22/17 03:50 114 22 94 BiPAP/CPAP 100 03/22/17 03:10 36.7 116 32 171/98 79 Non-Rebreather 15.0 03/22/17 02:01 108 148/96 90 Non-Rebreather 15.0 03/22/17 01:01 106 03/21/17 23:51 110 143/87 94 Non-Rebreather 15.0 03/21/17 22:55 37.1 118 28 106/73 95 Nasal Cannula 15.0 Non-Rebreather 03/21/17 22:27 120 26 125/72 95 Nasal Cannula 15.0 Non-Rebreather 03/21/17 21:56 131 33 83 Non-Rebreather 15.0 03/21/17 21:49 130 26 138/81 81 Non-Rebreather 15.0 03/21/17 21:20 88 Non-Rebreather 15.0 03/21/17 21:13 137 03/21/17 21:12 85 Non-Rebreather 03/21/17 21:12 37.5 137 30 113/84 85 Non-Rebreather 15.0 03/21/17 21:12 85 Non-Rebreather General Appearance: + mild distress, + obese, + pertinent finding (chronically ill appearing) ENT: hearing grossly normal Neck: supple, no JVD Respiratory: + accessory muscle use, + pertinent finding (on bipap. mild tachypnea and dyspnea) Cardiovascular: regular rate, rhythm (per telemetry) Abdomen: + pertinent finding (did not assess abdomen at this time) Musculoskeletal: pertinent finding (generally deconditioned) Neurologic/Psychiatric: alert, normal mood/affect, oriented x 3 (but is forgetful) Skin: + pallor (grayish) Laboratory Results Last 24 Hours Test 03/21/17 20:55 03/21/17 21:12 03/21/17 21:34 03/21/17 21:45 White Blood Count 14.37 K/uL Red Blood Count 3.81 M/uL Hemoglobin 10.5 g/dL Hematocrit 33.7 % Mean Corpuscular Volume 88.5 fL Mean Corpuscular Hemoglobin 27.6 pg Mean Corpuscular Hemoglobin Concent 31.2 g/dl Platelet Count 447 K/uL Mean Platelet Volume 10.2 fL Neutrophils (%) (Auto) 87.4 % Lymphocytes (%) (Auto) 2.5 % Monocytes (%) (Auto) 9.3 % Eosinophils (%) (Auto) 0.1 % Basophils (%) (Auto) 0.1 % Neutrophils # (Auto) 12.57 K/uL Lymphocytes # (Auto) 0.36 K/uL Monocytes # (Auto) 1.33 K/uL Eosinophils # (Auto) 0.01 K/uL Basophils # (Auto) 0.01 K/uL RDW Standard Deviation 57.7 fL RDW Coefficient of Variation 17.9 % Immature Granulocyte % (Auto) 0.6 % Immature Granulocyte # (Auto) 0.09 K/uL Nucleated RBC Absolute Count (auto) 0.10 K/uL Nucleated Red Blood Cells % 0.7 % Prothrombin Time 12.0 SECONDS Prothromb Time International Ratio 1.1 Activated Partial Thromboplast Time 24.0 SECONDS Partial Thromboplastin Ratio 0.9 Sodium Level 137 mmol/L Potassium Level 4.0 mmol/L Chloride Level 99 mmol/L Carbon Dioxide Level 31 mmol/L Anion Gap 6.0 mmol/L Blood Urea Nitrogen 27 mg/dl Creatinine 0.96 mg/dl Est Creatinine Clear Calc Drug Dose 126.8 ml/min Estimated GFR () 103.4 Estimated GFR (Non- 89.3 BUN/Creatinine Ratio 28.0 Random Glucose 164 mg/dl Calcium Level 9.7 mg/dl Magnesium Level 1.8 mg/dl Total Bilirubin 0.2 mg/dl Direct Bilirubin < 0.1 mg/dl Aspartate Amino Transf (AST/SGOT) 52 U/L Alanine Aminotransferase (ALT/SGPT) 18 U/L Alkaline Phosphatase 104 U/L Total Creatine Kinase 54 U/L Creatine Kinase MB 1.5 ng/ml Creatine Kinase MB Ratio 2.8 Troponin I < 0.015 ng/ml Pro-B-Type Natriuretic Peptide 879 pg/ml Total Protein 7.4 gm/dl Albumin 2.4 gm/dl Lipase 38 U/L Thyroid Stimulating Hormone (TSH) 1.940 uIu/ml Bedside Glucose 165 mg/dl Bedside Lactic Acid Venous 2.45 mmol/L Influenza Type A Antigen Neg for Influ A Influenza Type B Antigen Neg for Influ B Test 03/21/17 23:29 03/22/17 02:03 03/22/17 05:08 03/22/17 05:24 Bedside Glucose 177 mg/dl Arterial Blood pH 7.37 Arterial Blood Partial Pressure CO2 49 mmHg Arterial Blood Partial Pressure O2 60 mm/Hg Arterial Blood HCO3 28 mmol/L Arterial Blood Oxygen Saturation 87.7 % Arterial Blood Base Excess 2.0 mEq/L Arterial Blood Gas Delivery 7 L Devin Test POS Pass Sodium Level 137 mmol/L Potassium Level 4.5 mmol/L Chloride Level 102 mmol/L Carbon Dioxide Level 28 mmol/L Anion Gap 6.0 mmol/L Blood Urea Nitrogen 24 mg/dl Creatinine 0.57 mg/dl Est Creatinine Clear Calc Drug Dose 210.8 ml/min Estimated GFR () 134.9 Estimated GFR (Non- 116.4 BUN/Creatinine Ratio 42.3 Random Glucose 241 mg/dl Lactic Acid Level 1.1 mmol/L Calcium Level 8.9 mg/dl Blood Gas Sample Site R Radial Bedside Blood Gas pH (LAB) 7.39 Bedside Blood Gas pCO2 (LAB) 46 mmHg Bedside Blood Gas pO2 (LAB) 105 mmHg Bedside Blood Gas HCO3 (LAB) 28 meq/L Bedside Blood Gas Total CO2 29 mEq/l Bedside Blood Gas Base Excess (LAB) 3.0 meq/L Bedside Blood Gas O2 Saturation 98.0 % Oxygen Delivery Device BIPAP Bedside Oxygen Rate (breaths/min) 12 Bedside FiO2 80 % Blood Gas IPAP 12 Test 03/22/17 06:23 03/22/17 08:00 03/22/17 09:19 03/22/17 10:35 Bedside Glucose 260 mg/dl 244 mg/dl 227 mg/dl Urine Color YELLOW Urine Appearance CLEAR Urine pH 6.0 Urine Specific [place] 1.026 Urine Protein 1+ Urine Glucose (UA) NEG Urine Ketones NEG Urine Occult Blood NEG Urine Nitrite NEG Urine Bilirubin NEG Urine Urobilinogen NEG Urine Leukocyte Esterase NEG Urine WBC (Auto) 1-5 /hpf Urine RBC (Auto) 0-4 /hpf Urine Hyaline Casts (Auto) 0 /lpf Urine Epithelial Cells (Auto) 0-5 /lpf Urine Bacteria (Auto) NEG Test 03/22/17 11:59 03/22/17 13:08 03/22/17 14:24 Bedside Glucose 190 mg/dl 178 mg/dl 165 mg/dl Assessment & Plan Palliative Performance Scale: 20 % Problem list: SOB Anxiety Back pain, chronic Respiratory failure, acute on chronic- requiring bipap, desaturates without bipap 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 Gale Pneumonia vs. pneumonitis Hx DVT/PE Goals of care (Z51.5) Palliative care recs: discussed with patient, patient's brother Andrea, NATALIE Mandujano, father Octavio, and another family member along with Dr. Llanos. -Patient is currently a full code without cardioversion. Per conversation upon admission, patient stated he would be okay with intubation, but does not want compressions or defibrillation. -On previous admission, patient made himself a DNR/DNI as reflected on his POLST form (copy is on chart), with limited additional interventions, abx if life can be prolonged, and trial of artificial hydration/nutrition. During previous admission, with his family present, patient had made the decision that he would not want reintubated as he did not want a trach/PEG and to live his life dependent on ventilator. -I had a lengthy conversation with the group listed above. It was conveyed to the patient that if he should fail on bipap, which is likely to happen, his current code status requires the team to intubate him. If that happens, given his three intubations on last admission, he would certainly need to have a tracheostomy and a PEG tube. Even if those procedures are done, the fact remains that he has extensive small cell lung cancer and extremely poor lung function bilaterally. We reiterated that he is not well enough to undergo any systemic therapy (chemo) for his cancer, and we very well could be looking at the end of life. -Patient stated that he is shocked because he did not know he was this far progressed, and he thought he was still going to receive chemo after his pneumonia is cleared up. Patient seems to be confusing conversations from last admission with current time. His family, myself and Dr. Llanos all gave patient support. We explained that if he does make the decision to be DNR/DNI and to be made comfortable, that we would do everything possible to be sure he does not suffer or feel pain/SOB/anxiety. Patient verbalized understanding and asked for some anxiety medication now. -The patient and family requested some time to discuss with each other and will let the team know when a decision has been made. -Further goals and recommendations to be made based upon patient's clinical course and decisions for goals of care. Thank you kindly for this consult. I will continue to follow.
--- NOTE | 2017-03-22 16:43 | Progress Note ---
Progress Note Date of Service Mar 22, 2017. Progress Note The patient was seen and examined. Still requiring BiPAP and gets very SOB without BiPAP. Also is very anxious and initially he was on Precedex, which was stopped and because of his anxiet, the patient was given two doses of Ativan P.O. which he tolerated well. Brother and sister in law are by [facility] bedside along with [facility] social service RN and we discussed about the future plan including intubation and ventilator and trach and peg placement if he is not able to come of the vent. He is still thinking about that. In the mean time will continue with current plan of care as prescribed, including BiPap and broad spectrum IV antibiotics and follow the cultures and adjust the antibiotics accordingly. DR. Erick [facility].
--- NOTE | 2017-03-22 18:39 | Progress Note ---
Medicine Progress Note Date & Time of Visit: Mar 22, 2017 at 18:36. Subjective Please see H&P from earlier this AM for details. Patient was seen while on Bipap, feels that only negative scenarios are being presented to the patient and feels he is anxious and getting more anxious with the negativity. He refused to allow lovenox to be given per protocol in the abdomen and states he will inject himself with the lovenox in his thigh as he had been doing. Family at the bedside and waiting for the additional brother and NATALIE who are the POAs to come to the hospital. Objective Last 8 Hrs Date Time Temp Pulse Resp B/P (MAP) Pulse Ox O2 Delivery O2 Flow Rate FiO2 03/22/17 18:08 75 20 117/79 (92) 91 BiPAP 60 03/22/17 16:06 82 22 124/78 (93) 92 BiPAP 60 03/22/17 16:00 91 BiPAP 60 03/22/17 14:29 83 24 119/78 (92) 95 BiPAP 60 03/22/17 14:25 92 22 93 BiPAP/CPAP 60 03/22/17 12:00 82 20 120/73 (89) 92 BiPAP 60 03/22/17 12:00 92 BiPAP 60 03/22/17 11:20 94 24 88 Mask 15.0 03/22/17 10:37 76 17 115/83 (94) 94 BiPAP 60.0 Physical Exam: General-[] Eyes-[] ENT-[] Neck-[] Lungs-[] Heart-[] Abdomen-[] Extremities-[] Neuro-[] Laboratory Results: Last 24 Hours Test 03/21/17 20:55 03/21/17 21:12 03/21/17 21:34 03/21/17 21:45 White Blood Count 14.37 K/uL Red Blood Count 3.81 M/uL Hemoglobin 10.5 g/dL Hematocrit 33.7 % Mean Corpuscular Volume 88.5 fL Mean Corpuscular Hemoglobin 27.6 pg Mean Corpuscular Hemoglobin Concent 31.2 g/dl Platelet Count 447 K/uL Mean Platelet Volume 10.2 fL Neutrophils (%) (Auto) 87.4 % Lymphocytes (%) (Auto) 2.5 % Monocytes (%) (Auto) 9.3 % Eosinophils (%) (Auto) 0.1 % Basophils (%) (Auto) 0.1 % Neutrophils # (Auto) 12.57 K/uL Lymphocytes # (Auto) 0.36 K/uL Monocytes # (Auto) 1.33 K/uL Eosinophils # (Auto) 0.01 K/uL Basophils # (Auto) 0.01 K/uL RDW Standard Deviation 57.7 fL RDW Coefficient of Variation 17.9 % Immature Granulocyte % (Auto) 0.6 % Immature Granulocyte # (Auto) 0.09 K/uL Nucleated RBC Absolute Count (auto) 0.10 K/uL Nucleated Red Blood Cells % 0.7 % Prothrombin Time 12.0 SECONDS Prothromb Time International Ratio 1.1 Activated Partial Thromboplast Time 24.0 SECONDS Partial Thromboplastin Ratio 0.9 Sodium Level 137 mmol/L Potassium Level 4.0 mmol/L Chloride Level 99 mmol/L Carbon Dioxide Level 31 mmol/L Anion Gap 6.0 mmol/L Blood Urea Nitrogen 27 mg/dl Creatinine 0.96 mg/dl Est Creatinine Clear Calc Drug Dose 126.8 ml/min Estimated GFR () 103.4 Estimated GFR (Non- 89.3 BUN/Creatinine Ratio 28.0 Random Glucose 164 mg/dl Calcium Level 9.7 mg/dl Magnesium Level 1.8 mg/dl Total Bilirubin 0.2 mg/dl Direct Bilirubin < 0.1 mg/dl Aspartate Amino Transf (AST/SGOT) 52 U/L Alanine Aminotransferase (ALT/SGPT) 18 U/L Alkaline Phosphatase 104 U/L Total Creatine Kinase 54 U/L Creatine Kinase MB 1.5 ng/ml Creatine Kinase MB Ratio 2.8 Troponin I < 0.015 ng/ml Pro-B-Type Natriuretic Peptide 879 pg/ml Total Protein 7.4 gm/dl Albumin 2.4 gm/dl Lipase 38 U/L Thyroid Stimulating Hormone (TSH) 1.940 uIu/ml Bedside Glucose 165 mg/dl Bedside Lactic Acid Venous 2.45 mmol/L Influenza Type A Antigen Neg for Influ A Influenza Type B Antigen Neg for Influ B Test 03/21/17 23:29 03/22/17 02:03 03/22/17 05:08 03/22/17 05:24 Bedside Glucose 177 mg/dl Arterial Blood pH 7.37 Arterial Blood Partial Pressure CO2 49 mmHg Arterial Blood Partial Pressure O2 60 mm/Hg Arterial Blood HCO3 28 mmol/L Arterial Blood Oxygen Saturation 87.7 % Arterial Blood Base Excess 2.0 mEq/L Arterial Blood Gas Delivery 7 L Devin Test POS Pass Sodium Level 137 mmol/L Potassium Level 4.5 mmol/L Chloride Level 102 mmol/L Carbon Dioxide Level 28 mmol/L Anion Gap 6.0 mmol/L Blood Urea Nitrogen 24 mg/dl Creatinine 0.57 mg/dl Est Creatinine Clear Calc Drug Dose 210.8 ml/min Estimated GFR () 134.9 Estimated GFR (Non- 116.4 BUN/Creatinine Ratio 42.3 Random Glucose 241 mg/dl Lactic Acid Level 1.1 mmol/L Calcium Level 8.9 mg/dl Blood Gas Sample Site R Radial Bedside Blood Gas pH (LAB) 7.39 Bedside Blood Gas pCO2 (LAB) 46 mmHg Bedside Blood Gas pO2 (LAB) 105 mmHg Bedside Blood Gas HCO3 (LAB) 28 meq/L Bedside Blood Gas Total CO2 29 mEq/l Bedside Blood Gas Base Excess (LAB) 3.0 meq/L Bedside Blood Gas O2 Saturation 98.0 % Oxygen Delivery Device BIPAP Bedside Oxygen Rate (breaths/min) 12 Bedside FiO2 80 % Blood Gas IPAP 12 Test 03/22/17 06:23 03/22/17 08:00 03/22/17 09:19 03/22/17 10:35 Bedside Glucose 260 mg/dl 244 mg/dl 227 mg/dl Urine Color YELLOW Urine Appearance CLEAR Urine pH 6.0 Urine Specific [place] 1.026 Urine Protein 1+ Urine Glucose (UA) NEG Urine Ketones NEG Urine Occult Blood NEG Urine Nitrite NEG Urine Bilirubin NEG Urine Urobilinogen NEG Urine Leukocyte Esterase NEG Urine WBC (Auto) 1-5 /hpf Urine RBC (Auto) 0-4 /hpf Urine Hyaline Casts (Auto) 0 /lpf Urine Epithelial Cells (Auto) 0-5 /lpf Urine Bacteria (Auto) NEG Test 03/22/17 11:59 03/22/17 13:08 03/22/17 14:24 03/22/17 16:03 Bedside Glucose 190 mg/dl 178 mg/dl 165 mg/dl 164 mg/dl Test 03/22/17 17:20 Bedside Glucose 147 mg/dl Date/Time Source Procedure Growth Status 03/21/17 21:58 Blood Blood Culture Pending Received 03/21/17 21:30 Blood Blood Culture Pending Received 03/22/17 04:20 Nasal MRSA DNA Surveillance Screen - Final Specimen Negative for MRSA by DNA Probe Complete 03/22/17 04:20 Sputum Expectorated Sputum Gram Stain - Final Complete 03/22/17 04:20 Sputum Expectorated Sputum Sputum Culture - Final Complete 03/22/17 08:00 Urine , Clean Catch Urine Culture Pending Received Assessment & Plan Current Inpatient Medications: Current Inpatient Medications Medications (Trade) Dose Ordered Sig/Prince Route Start Time Stop Time Status Last Admin Dose Admin Cefepime HCl (Consult) 1 ea DAILY PRN N/A 03/22/17 04:47 04/21/17 04:46 Methylprednisolone Sodium Succinate 60 mg/Syringe 0.96 ml @ 1.5 mls/min Q8H IV 03/22/17 10:00 04/21/17 09:59 03/22/17 16:54 1.5 MLS/MIN Sodium Chloride 1,000 ml @ 125 mls/hr Q8H IV 03/22/17 04:00 04/21/17 03:59 03/22/17 12:10 125 MLS/HR Miscellaneous Information (Consult Glycemic Management Pharmacy) 1 ea DAILY PRN N/A 03/22/17 03:53 04/21/17 03:52 Diazepam (Valium Tab) 2 mg BID PRN PO 03/22/17 02:00 04/21/17 01:59 Docusate Sodium (coLACE CAP) 100 mg BID PO 03/22/17 09:00 04/21/17 08:59 Magnesium Oxide (Mag-Ox Tab) 400 mg QAM PO 03/22/17 09:00 04/21/17 08:59 03/22/17 08:39 400 MG Methadone HCl (Dolophine Tab) 15 mg Q6H PO 03/22/17 08:00 04/05/17 07:59 03/22/17 13:18 15 MG Metoprolol Succinate (Toprol Xl Tab) 12.5 mg QAM PO 03/22/17 09:00 04/21/17 08:59 03/22/17 08:39 12.5 MG Tramadol HCl (Ultram Tab) 50 mg Q6H PRN PO 03/22/17 02:00 04/21/17 01:59 Triamcinolone Acetonide (Nasacort Allergy 24hr) 2 sprays DAILY BJ 03/22/17 09:00 04/21/17 08:59 03/22/17 08:38 2 SPRAYS Zolpidem Tartrate (Ambien Tab) 10 mg HS PO 03/22/17 21:00 04/21/17 20:59 Dexmedetomidine HCl 200 mcg/ Sodium Chloride 50 ml @ 0 mls/hr Q0M PRN IV 03/22/17 03:42 03/26/17 03:41 03/22/17 08:38 6 MLS/HR Levofloxacin (Consult) 1 ea UD PRN N/A 03/22/17 05:00 04/21/17 04:59 Vancomycin HCl (Consult) 1 ea UD PRN N/A 03/22/17 05:00 04/21/17 04:59 Ipratropium [place] (Atrovent 0.02% 0.5MG/2.5ML Neb) 0.5 mg Q4R INH 03/22/17 08:00 04/21/17 07:59 03/22/17 14:25 0.5 MG Levalbuterol (Xopenex 1.25MG/ 0.5ML Neb) 1.25 mg Q4R INH 03/22/17 08:00 04/21/17 07:59 03/22/17 14:25 1.25 MG Cefepime HCl 2000 mg/Syringe 20 ml @ 5 mls/min Q8 IV 03/22/17 14:00 03/29/17 13:59 03/22/17 13:18 5 MLS/MIN Insulin Human Regular 250 units/ Sodium Chloride 252.5 ml @ 0 mls/hr Q24H IV 03/22/17 06:45 04/21/17 06:44 03/22/17 07:40 3.1 MLS/HR Insulin Aspart (novoLOG ASPART) SLIDING SCALE PCHS SC 03/22/17 08:00 04/21/17 07:59 Vancomycin HCl 2500 mg/Sodium Chloride 550 ml @ 200 mls/hr Q10H IV 03/22/17 07:00 03/29/17 06:59 03/22/17 16:54 200 MLS/HR Levofloxacin 750 mg/Prmx 150 ml @ 100 mls/hr Q24H IV 03/23/17 03:00 03/30/17 02:59 Famotidine (Pepcid Tab) 20 mg BID PO 03/23/17 09:00 04/22/17 08:59 Enoxaparin Sodium (Lovenox Inj) 80 mg Q12H SQ 03/23/17 06:00 04/22/17 05:59
[2017-03-22] MEDS ORDERED: MoRPHine SULFATE 2 MG/ML CARP IV PRN (19:15)
[2017-03-22] MEDS: FENTANYL CITRATE INJ 50 MCG/1 ML 2 ML VIAL IV PRN ×2 (19:49→23:58)
[2017-03-22] MEDS ORDERED: SODIUM CHLORIDE 0.65% NA SOLN 45 ML (OCEAN) ONE (20:28)
[2017-03-22] MEDS: ZOLPIDEM TARTRATE 10 MG TAB PO SCH (20:35)
[2017-03-22] MEDS: LORAZEPAM 2 MG/ML 1 ML VIAL IV PRN (22:00)
[2017-03-23] VITALS (40 sets, daily range): BP systolic 107–191; BP diastolic 65–101; PULSE 79–103; TEMP 36.6–37.2; O2SAT 85–98
[2017-03-23] MEDS: METHADONE HCL 10 MG TAB PO SCH ×4 (02:10→20:07)
[2017-03-23] MEDS: METHYLPREDNISOLONE IV 60 MG in SYRINGE 0 ML IV SCH ×3 (02:10→17:45)
[2017-03-23] MEDS: VANCOMYCIN INJ 2,500 MG in SODIUM CHLORIDE 0.9% 500ML 500 ML IV SCH ×3 (02:23→22:57)
[2017-03-23] MEDS: LEVOFLOXACIN 750MG / D5W IV SCH (02:23)
[2017-03-23] MEDS: LORAZEPAM 2 MG/ML 1 ML VIAL IV PRN ×4 (02:23→22:28)
[2017-03-23] MEDS: LEVALBUTEROL 1.25MG/0.5ML NEB INH SCH ×6 (03:29→23:17)
[2017-03-23] MEDS: IPRATROPIUM BROMIDE NEB SOLN 0.02% 2.5 ML VIAL INH SCH ×6 (03:29→23:17)
[2017-03-23 05:19] LABS: NUCLEATED RED BLOOD CELL ABS 0.02 K/uL (0-0)
[2017-03-23] MEDS: CEFEPIME IV 2,000 MG in SYRINGE 7.5 ML IV SCH ×3 (05:36→21:48)
[2017-03-23] MEDS: ENOXAPARIN 80 MG/0.8 ML SYR SQ SCH ×2 (05:38→17:48)
[2017-03-23] MEDS: SODIUM CHLORIDE 0.9% 1000ML 1,000 ML IV SCH (05:42)
[2017-03-23] MEDS: FENTANYL CITRATE INJ 50 MCG/1 ML 2 ML VIAL IV PRN ×2 (05:42→11:36)
[2017-03-23 05:47] LABS: CALCIUM 9.2 mg/dl (8.5-10.1); CREATININE 0.61 mg/dl (0.60-1.40); PHOSPHORUS 3.1 mg/dl (2.5-4.9)
[2017-03-23 05:50] LABS: HEMATOCRIT 29.4 % (42-52); HEMOGLOBIN 8.9 g/dL (14.0-18.0); MEAN CELL VOLUME 88.3 fL (80-100); MEAN CORPUSCULAR HEMOGLOBIN 26.7 pg (25-34); MEAN CORPUSCULAR HGB CONC 30.3 g/dl (32-36); MEAN PLATELET VOLUME 9.7 fL (7.4-10.4); PLATELET COUNT 221 K/uL (130-400); RED CELL DISTRIBUTION WIDTH SD 57.9 fL (36.4-46.3); WHITE BLOOD COUNT 13.43 K/uL (4.8-10.8)
[2017-03-23 05:53] LABS: IG# 0.04 K/uL (0.00-0.02); LYMPH % 4.5 %; MONO % 3.3 %; MONO ABS # 0.44 K/uL (0.11-0.59); NEUT % 91.9 %; NEUT ABS # 12.35 K/uL (1.4-6.5)
[2017-03-23] MEDS: INSULIN REGULAR 250 UNITS in SODIUM CHLORIDE 0.9% 250ML 250 ML IV SCH (06:49)
--- NOTE | 2017-03-23 07:21 | DIAGNOSTIC IMAGING REPORT ---
CHEST ONE VIEW PORTABLE HISTORY: Pneumonia. Follow-up. COMPARISON: Chest 03/21/2017. FINDINGS: The heart remains mildly enlarged. Bilateral airspace opacities, left greater than right persist. Small bilateral pleural effusions. Left midlung zone lucency persists and favors a cyst when compared to the prior studies. There is also left apical air-fluid level which could represent a cavitary focus. This is also unchanged. IMPRESSION: No change compared to the prior study. Bilateral airspace opacities consistent with a pneumonia persist. Left apical air-fluid level could be due to an apical bulla or possibly a cavitary focus. Electronically signed by: Jace Ceballos M.D. 03/23/2017 7:19 AM Dictated Date/Time: 03/23/2017 7:16 AM
[2017-03-23] MEDS: INSULIN ASPART 100 UNITS/ML 3 ML PEN SC SCH ×4 (08:00→20:08)
[2017-03-23] MEDS: DOCUSATE SODIUM 100 MG CAP PO SCH ×2 (08:23→19:45)
[2017-03-23] MEDS: METOPROLOL SUCC 25MG EXT REL TAB PO SCH (08:30)
[2017-03-23] MEDS: MAGNESIUM OXIDE 400 MG TAB PO SCH (08:30)
[2017-03-23] MEDS: FAMOTIDINE 20 MG TAB PO SCH ×2 (08:31→20:08)
[2017-03-23] MEDS: TRIAMCINOLONE ACET NASAL SPRAY 10.8ML BTL NAE SCH (08:31)
[2017-03-23] MEDS: D5W AND 1/2NSS 1,000 ML IV SCH ×2 (09:37→23:46)
[2017-03-23] MEDS: DIAZEPAM 2MG TAB PO PRN (10:14)
--- NOTE | 2017-03-23 12:04 | Pharmacy Progress Note ---
Pharmacy Abx Dose Short Note Date of Service Mar 23, 2017. Assessment & Plan Pharmacy is consulted for: * Glycemic control * Vancomycin, Levofloxacin + Cefepime IV Assessment * 56 year old male with h/o type 2 DM admitted for chills, cough, hypoxia, acute on chronic respiratory failure and possible sepsis * He was recently hospitalized for pneumonia and was discharged on 03/10/17, so he does have risk factors for resistant organisms * He is currently on BiPAP/CPAP FiO2 60% with sat's currently in the 89-93 range ; receiving bronchodilators and steroids * He remains afebrile, non hypotensive * Blood cx's no growth to date, urine cx collected and pending however UA was negative, MRSA nasal screening was negative, Influenza A/B screening negative * Sputum collected, but per gram stain it appears the specimen likely has upper airway contamination * Today's CXR: * No change compared to the prior study. Bilateral airspace opacities consistent with a pneumonia persist. Left apical air-fluid level could be due to an apical bulla or possibly a cavitary focus. * Renal fxn at baseline, SCr stable, good U.O. * Multiple stressors still present: high dose steroids, infection, IV dextrose administration. Given current ongoing stressors an insulin infusion would be best to control hyperglycemia. Insulin infusion rate and BSGs have been stable and RN's are checking BSGs Q 4 hrs at this point. Insulin infusion running at 2.5units/hr. Plan Vancomycin * Pharmacy has dosed vancomycin for this patient in the past * Current maintenance dose: 2500mg (20mg/kg) IV Q 10 hours This maintenance dose had produced desirable troughs in the past. * Today's trough = 15.7 mg/mL drawn w/ 4th maint dose; this level is therapeutic , prior doses hung on schedule and level drawn at appropriate time * Goal trough level for pneumonia/sepsis : 15 to 20 mcg/mL * Repeat trough level ordered for: 03/26 * May consider deescalation of abx therapy given MRSA nasal swab was negative greatly lessening the risk of MRSA pneumonia, plus both levofloxacin and cefepime offer coverage of DRSP and MSSA - however one must consider today's CXR read as possible bulla or cavitary focus thus would want good staph coverage possibly add anaerobic coverage as well Cefepime * Given body habitus and renal fxn, 2gm IV Q 8 hours would be most appropriate; eCrCl >100cc/min Levofloxacin * QTc 424 * 750mg IV Q 24 hrs indicated for pulm infxn w/ eCrCl > 50cc/min Glycemic Control * Continue IV insulin infusion protocol per moderate stress, goal 110-190mg/dL * Reevaluate insulin doses with each step down in steroid dose * FYI: In the recent past, this patient was transitioned off the insulin drip with the following orders while on a lesser Solu-Medrol dose: Lantus 50 units BID, Novolog CF 10, CR 4, Goal Range 140-180; and this regimen did not prevent BSGs from rising into the upper 200's to low 300's. If there are plans to transition in the near future, please keep in mind the above doses would be the minimum recommended if Solu-Medrol continues at the current dose. Pharmacy will continue to follow and will adjust dose/frequency as necessary. Thank you.
[2017-03-23] MEDS ORDERED: VANCOMYCIN TROUGH ONE (12:30)
--- NOTE | 2017-03-23 14:15 | Palliative Care Progress Note ---
Palliative Care Progress Note Date of Service Mar 23, 2017. Subjective Pt evaluation today including: conversation w/ patient (father, Octavio), conversation w/ family, physical exam, chart review, conversation w/ senior consultant (Dr. Llanos, Dr. Brett Gale) Pain: "okay" PO Intake: none since he is on Bipap Voiding: johns catheter in place -Patient is awake and oriented. Remains on bipap. No improvement in condition. -Patient made decision last evening to be DNR/DNI, does not want trach. -Has received 4 doses of 50mcg fentanyl IV in last 24 hours. States it helps his pain. -Still on methadone 15mg PO Q6h for chronic pain. Review of Systems Constitutional: + weakness ENT: No trouble swallowing Respiratory: No cough, No shortness of breath Cardiac: + edema, No chest pain Abdomen: No pain, No nausea, No vomiting Male : No problem reported Psychiatric: No depression symptoms, No anxiety Objective Vital Signs Date Time Temp Pulse Resp B/P (MAP) Pulse Ox O2 Delivery O2 Flow Rate FiO2 03/23/17 11:19 95 93 60 03/23/17 11:17 95 22 93 BiPAP/CPAP 60 03/23/17 11:15 BiPAP 60 03/23/17 11:04 37.0 90 22 112/69 (83) 93 BiPAP 60 03/23/17 11:00 85 21 112/68 (81) 89 03/23/17 10:00 82 18 107/72 (86) 95 03/23/17 09:29 36.8 90 22 113/73 (86) 96 BiPAP 60 03/23/17 09:00 89 22 113/73 (87) 96 03/23/17 08:34 103 28 111/78 (83) 96 03/23/17 08:00 101 25 85 03/23/17 08:00 BiPAP 60 03/23/17 07:30 BiPAP 60 03/23/17 07:30 36.8 101 23 121/76 (91) 94 BiPAP 60 03/23/17 07:11 94 26 94 BiPAP/CPAP 60 03/23/17 07:10 94 94 60 03/23/17 07:00 85 18 121/76 (95) 95 03/23/17 06:00 86 19 133/77 (84) 91 03/23/17 05:00 91 21 122/77 (95) 94 03/23/17 04:00 94 18 112/65 (81) 91 03/23/17 04:00 90 BiPAP 60 03/23/17 04:00 36.6 03/23/17 03:29 81 90 60 03/23/17 03:29 81 18 90 BiPAP/CPAP 60 03/23/17 03:00 85 19 112/74 (94) 88 03/23/17 02:00 79 17 111/68 (80) 92 03/23/17 01:00 79 19 111/65 (77) 91 03/23/17 00:01 36.7 03/23/17 00:00 90 19 125/66 (94) 92 03/22/17 23:59 90 BiPAP 15.0 60 03/22/17 23:22 75 19 92 BiPAP/CPAP 60 03/22/17 23:22 75 92 60 03/22/17 23:00 76 18 114/67 (72) 92 03/22/17 22:00 85 32 125/76 (93) 93 03/22/17 21:00 86 18 110/77 (95) 91 03/22/17 20:40 96 25 156/84 (113) 90 03/22/17 20:30 86 20 134/92 (128) 90 03/22/17 20:00 84 18 117/71 (88) 91 03/22/17 20:00 92 BiPAP 60 03/22/17 20:00 36.6 03/22/17 19:30 85 21 118/75 (94) 90 03/22/17 19:00 93 23 119/83 (90) 91 03/22/17 18:54 75 20 92 BiPAP/CPAP 60 03/22/17 18:53 75 92 60 03/22/17 18:08 75 20 117/79 (92) 91 BiPAP 60 03/22/17 16:06 82 22 124/78 (93) 92 BiPAP 60 03/22/17 16:00 91 BiPAP 60 03/22/17 14:29 83 24 119/78 (92) 95 BiPAP 60 03/22/17 14:25 92 22 93 BiPAP/CPAP 60 Physical Exam General Appearance: no apparent distress, + pertinent finding (severely deconditioned and chronically ill appearing) ENT: hearing grossly normal Neck: supple, no JVD Respiratory/Chest: no respiratory distress, + accessory muscle use, + rhonchi ( coarse throughout), + wheezing (expiratory), + pertinent finding (on bipap) Cardiovascular: regular rate, rhythm, + normal peripheral pulses, + pertinent finding (+1 pitting edema to bilateral lower extremities) Abdomen: normal bowel sounds, non tender, soft Neurologic/Psychiatric: alert, normal mood/affect, oriented x 3 Skin: + pallor (grayish) Laboratory Results Last 24 Hours Test 03/22/17 14:24 03/22/17 16:03 03/22/17 17:20 03/22/17 18:35 Bedside Glucose 165 mg/dl 164 mg/dl 147 mg/dl 151 mg/dl Test 03/22/17 20:21 03/22/17 22:10 03/23/17 02:16 03/23/17 05:06 Bedside Glucose 158 mg/dl 156 mg/dl 156 mg/dl Blood Gas Sample Site R Radial Bedside Blood Gas pH (LAB) 7.44 Bedside Blood Gas pCO2 (LAB) 43 mmHg Bedside Blood Gas pO2 (LAB) 61 mmHg Bedside Blood Gas HCO3 (LAB) 29 meq/L Bedside Blood Gas Total CO2 31 mEq/l Bedside Blood Gas Base Excess (LAB) 5.0 meq/L Bedside Blood Gas O2 Saturation 92.0 % Devin Test Pass Oxygen Delivery Device BIPAP Bedside Oxygen Rate (breaths/min) 12 Bedside FiO2 60 % Blood Gas IPAP 12 Test 03/23/17 05:07 03/23/17 06:31 03/23/17 12:37 White Blood Count 13.43 K/uL Red Blood Count 3.33 M/uL Hemoglobin 8.9 g/dL Hematocrit 29.4 % Mean Corpuscular Volume 88.3 fL Mean Corpuscular Hemoglobin 26.7 pg Mean Corpuscular Hemoglobin Concent 30.3 g/dl Platelet Count 221 K/uL Mean Platelet Volume 9.7 fL Neutrophils (%) (Auto) 91.9 % Lymphocytes (%) (Auto) 4.5 % Monocytes (%) (Auto) 3.3 % Eosinophils (%) (Auto) 0.0 % Basophils (%) (Auto) 0.0 % Neutrophils # (Auto) 12.35 K/uL Lymphocytes # (Auto) 0.60 K/uL Monocytes # (Auto) 0.44 K/uL Eosinophils # (Auto) 0.00 K/uL Basophils # (Auto) 0.00 K/uL RDW Standard Deviation 57.9 fL RDW Coefficient of Variation 18.0 % Immature Granulocyte % (Auto) 0.3 % Immature Granulocyte # (Auto) 0.04 K/uL Nucleated RBC Absolute Count (auto) 0.02 K/uL Nucleated Red Blood Cells % 0.1 % Platelet Estimate NORMAL Polychromasia 1+ Hypochromasia PRESENT Ovalocytes 1+ Sodium Level 137 mmol/L Potassium Level 4.0 mmol/L Chloride Level 103 mmol/L Carbon Dioxide Level 29 mmol/L Anion Gap 5.0 mmol/L Blood Urea Nitrogen 18 mg/dl Creatinine 0.61 mg/dl Est Creatinine Clear Calc Drug Dose 196.9 ml/min Estimated GFR () 131.2 Estimated GFR (Non- 113.2 BUN/Creatinine Ratio 29.1 Random Glucose 173 mg/dl Lactic Acid Level 1.7 mmol/L Calcium Level 9.2 mg/dl Phosphorus Level 3.1 mg/dl Magnesium Level 2.0 mg/dl Bedside Glucose 167 mg/dl Vancomycin Level Trough 15.7 mcg/ml Assessment and Plan Problem list: SOB Anxiety Back pain, chronic Respiratory failure, acute on chronic- requiring bipap, desaturates without bipap 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 Gale Pneumonia vs. pneumonitis Hx DVT/PE Goals of care (Z51.5) Palliative care recs: -Patient is now level 5- DNR/DNI. -Remains on Bipap. Patient wants to eat. If patient does ultimately decide to focus on comfort, could do a trial of high-flow nasal cannula. Patient still does not want to make this decision until the rest of his family comes in. Will defer decision on high-flow NC to primary medical or police crime scene technician team. -Has had total of 200mcg IV fentanyl in last 24 hours. IV Fentanyl cannot be done anywhere but ICU. Could start fentanyl patch 25mcg/hr. -Once IV fentanyl is discontinued, will need other PRN pain meds. If he remains on bipap and cannot take PO, would do morphine 2-4mg IV Q2h PRN pain or SOB. If he can take Roxanol, could do 5-10mg PO Q3h PRN. -Continue methadone and lorazepam as ordered. -Spoke with Dr. Gale on the phone and updated him on decisions that were made last evening. He does not feel it is necessary at this point to have another family meeting with him present. He spoke with the patient and the family yesterday and expressed that there will be no further chemo and patient is not expected to improve much at this point. Thank you again for this consult. I will follow as needed. Palliative Performance Scale: 20 % Continued [facility] stay due to: multiple IV medications needed, home environment unsafe for pt Discharge planning: uncertain
--- NOTE | 2017-03-23 18:09 | Critical Care Progress Note ---
Critical Care Progress Note Date of Service Mar 23, 2017. ICU Day ICU Day Number: [address] Llanos Subjective Patient is a 56-year-old male with a significant past medical history of small cell lung cancer, upper extremity DVT and subsequent pulmonary emboli who is O2 dependent at home. Most recently, the patient was at rehabilitation facility where he was found to be hypoxic this evening and transported to the ER for further evaluation and management. Patient was initially placed on a nonrebreather. They attempted utilize BiPAP, but the patient refused. Patient was found to have an acute leukocytosis. He is afebrile. Cardiac evaluation was otherwise unremarkable. Initial blood gas showed a slight elevation of CO2 at 49 and PO2 low at 60%. Influenza was negative. Upon arrival to the ICU, the patient is extremely tachypneic. He has diffuse inspiratory wheezes and is generally anxious. Patient reports that he has had worsening shortness of breath over last 3 days. He has had a cough which is nonproductive of sputum. He denies any fevers or chills. He denies chest pain , palpitations, or hemoptysis. He denies any abdominal pain or bloody stools. Patient has history of noncompliance with medical management the past. The patient overall is deteriorating further. Unable to breath without the BiPAP and immediately he becomes hypoxemic and tachypneic. We had a long discussion with the patient and the family members and final decision was made by the family and patient himself, to be DNAR, no CPR or Intubation or shock. Currently he remains on the biPAP and is oxygenating 95% + Objective VITAL SIGNS - Vital signs and nursing notes were reviewed. GENERAL - 56-year-old male appearing his stated age who is in moderate distress. Unable to communicate in complete sentences secondary to tachypnea. and he is on BiPAP at this time. Also morbidly obese. HEAD - NC/AT. EYES - PERRL with EOMI bilaterally. Sclera anicteric. EARS - No deformities of external structures noted on gross examination bilaterally. NOSE - Midline and without cyanosis. MOUTH/OROPHARYNX - Unable to examine due to BiPAP continuous. NECK - Neck with FROM. Supple to palpation. LUNGS - Chest wall symmetric with accessory muscle use. Diffuse inspiratory wheezes noted throughout left side of the lung. RT side pneumonectomy. CARDIAC - RRR with S1/S2. No murmur, rubs, or gallops appreciated. no reproducible tenderness to palpation appreciated over the anterior chest wall. ABDOMEN - Abdominal contour obese and without pulsations or visible masses. BS normoactive all four quadrants. No tenderness, palpable masses, hepatosplenomegaly, or ascites noted. EXTREMITIES - No clubbing or peripheral cyanosis. Mild pretibial edema present bilaterally. +3/5 radial and dorsalis pedis pulses palpated throughout. +5/5 strength noted in UE/LE bilaterally. NEUROLOGIC - Alert and awake and moves all the extremities. responds appropriately.. Current SOFA Score SOFA Score Response (Comments) Value Platelets (x10) > 150 0 Bilirubin (mg/dL) < 1.2 0 Parker Coma Score 15 0 Level of Hypotension No Hypotension 0 Creatinine (mg/dL) < 1.2 0 Total 0 Assessment & Plan (1) Hypoxia (2) PNA (pneumonia) (3) Respiratory failure (4) Primary cancer of left upper lobe of lung (5) Pneumonia (6) Anxiety (7) Insulin dependent type 2 diabetes mellitus (8) Chronic back pain Neuro - * CAM ICU: NEGATIVE * Chronic Back Pain: * Continue Methadone. * Anxiety - * Valium PRN. * Precedex gtt for anxiety while utilizing BiPAP - titrate down to activeness. * Ambien for sleep. Cardiac - * Hypertension: * Continue home Metoprolol. Also pain management. Respiratory - * Acute Hypoxic Respiratory Failure in the setting of LT upper lobe Small Cell Lung Cancer: * Previously underwent Radiation therapy - felt to cause radiation pneumonitis and recent episode of respiratory distress requiring intubation for an extended period of time. * Encourage BiPAP as he has had success with this in the past. The patient is DNR. * Concerns for persistent pneumonia of the LEFT Midlung: * Recent admissions - Vancomycin/Cefepime/Levaquin * Add sputum cultures * Nebs * Pulmonary Toilet * History of PEs - * Currently anticoagulated on Lovenox. GI - * h/o Constipation - continue Colace. * Will add Protonix for prophylaxis. RENAL/LYTES - * Will monitor electrolytes daily - replace appropriately. - * Refuses Em at this time. * Strict I&Os ENDO - * h/o IDDM: * ISS per protocol. * Progress to Insulin gtt if needed per protocol. Certainly possible in the setting of increased IV Steroid use. * Chronic steroid use: * Agree with IV steroids in the short term setting. * Monitor for hemodynamic compromise suggestive of need for stress dose hydrocortisone. Would hold off at this point. HEME - * Stable H&H - monitor daily. ID - * LEFT Midlobe Pneumonia: * Antibiotics - Cefepime/Vanc/Levaquin * Blood cultures pending. * Will add sputum cultures LINES/IV ACCESS - * PIVs intact DVT PROPHYLAXIS - * Lovenox - continued for outpatient DVT/PE treatment. The patient is DNAR. No CPR/No Intubation. Spent greater than 35 minutes of non critical care time. Consults & Procedures Consultants: Palliative: Janna Srinivasan. Procedures: None. Data Medications: Current Inpatient Medications Medications (Trade) Dose Ordered Sig/Prince Route Start Time Stop Time Status Last Admin Dose Admin Cefepime HCl (Consult) 1 ea DAILY PRN N/A 03/22/17 04:47 04/21/17 04:46 Methylprednisolone Sodium Succinate 60 mg/Syringe 0.96 ml @ 1.5 mls/min Q8H IV 03/22/17 10:00 04/21/17 09:59 03/23/17 10:14 1.5 MLS/MIN Miscellaneous Information (Consult Glycemic Management Pharmacy) 1 ea DAILY PRN N/A 03/22/17 03:53 04/21/17 03:52 Diazepam (Valium Tab) 2 mg BID PRN PO 03/22/17 02:00 04/21/17 01:59 03/23/17 10:14 2 MG Docusate Sodium (coLACE CAP) 100 mg BID PO 03/22/17 09:00 04/21/17 08:59 Magnesium Oxide (Mag-Ox Tab) 400 mg QAM PO 03/22/17 09:00 04/21/17 08:59 03/23/17 08:30 400 MG Methadone HCl (Dolophine Tab) 15 mg Q6H PO 03/22/17 08:00 04/05/17 07:59 03/23/17 14:18 15 MG Metoprolol Succinate (Toprol Xl Tab) 12.5 mg QAM PO 03/22/17 09:00 04/21/17 08:59 03/23/17 08:30 12.5 MG Tramadol HCl (Ultram Tab) 50 mg Q6H PRN PO 03/22/17 02:00 04/21/17 01:59 Triamcinolone Acetonide (Nasacort Allergy 24hr) 2 sprays DAILY BJ 03/22/17 09:00 04/21/17 08:59 03/23/17 08:31 2 SPRAYS Zolpidem Tartrate (Ambien Tab) 10 mg HS PO 03/22/17 21:00 04/21/17 20:59 03/22/17 20:35 10 MG Levofloxacin (Consult) 1 ea UD PRN N/A 03/22/17 05:00 04/21/17 04:59 Vancomycin HCl (Consult) 1 ea UD PRN N/A 03/22/17 05:00 04/21/17 04:59 Ipratropium [place] (Atrovent 0.02% 0.5MG/2.5ML Neb) 0.5 mg Q4R INH 03/22/17 08:00 04/21/17 07:59 03/23/17 15:41 0.5 MG Levalbuterol (Xopenex 1.25MG/ 0.5ML Neb) 1.25 mg Q4R INH 03/22/17 08:00 04/21/17 07:59 03/23/17 15:41 1.25 MG Cefepime HCl 2000 mg/Syringe 20 ml @ 5 mls/min Q8 IV 03/22/17 14:00 03/29/17 13:59 03/23/17 14:18 5 MLS/MIN Insulin Human Regular 250 units/ Sodium Chloride 252.5 ml @ 0 mls/hr Q24H IV 03/22/17 06:45 04/21/17 06:44 03/23/17 06:49 2.5 MLS/HR Insulin Aspart (novoLOG ASPART) SLIDING SCALE PCHS SC 03/22/17 08:00 04/21/17 07:59 Vancomycin HCl 2500 mg/Sodium Chloride 550 ml @ 200 mls/hr Q10H IV 03/22/17 07:00 03/29/17 06:59 03/23/17 12:39 200 MLS/HR Levofloxacin 750 mg/Prmx 150 ml @ 100 mls/hr Q24H IV 03/23/17 03:00 03/30/17 02:59 03/23/17 02:23 100 MLS/HR Famotidine (Pepcid Tab) 20 mg BID PO 03/23/17 09:00 04/22/17 08:59 03/23/17 08:31 20 MG Enoxaparin Sodium (Lovenox Inj) 80 mg Q12H SQ 03/23/17 06:00 04/22/17 05:59 03/23/17 05:38 80 MG Lorazepam (Ativan Inj) 1 mg Q4H PRN IV 03/22/17 19:15 04/21/17 19:14 03/23/17 15:25 1 MG Fentanyl Citrate (Fentanyl Inj) 50 mcg Q1HWA PRN IV 03/22/17 19:30 04/05/17 19:29 03/23/17 11:36 50 MCG Dextrose/Sodium Chloride 1,000 ml @ 75 mls/hr [id number] IV 03/23/17 09:45 04/22/17 09:44 03/23/17 09:37 75 MLS/HR I & O: 24-Hour Column 03/24/17 08:00 Intake Total 1085 ml Output Total 1000 ml Balance 85 ml Vital Signs: Date Time Temp Pulse Resp B/P (MAP) Pulse Ox O2 Delivery O2 Flow Rate FiO2 03/23/17 16:00 BiPAP 60 03/23/17 16:00 97 21 128/89 (107) 92 03/23/17 16:00 37.2 103 22 128/83 (98) 94 BiPAP 60 03/23/17 15:44 91 88 60 03/23/17 15:41 91 23 88 BiPAP/CPAP 60 03/23/17 15:00 97 24 130/95 (114) 91 03/23/17 14:00 98 23 138/92 (115) 93 03/23/17 13:56 37.0 90 22 136/68 (90) 94 BiPAP 60 03/23/17 13:01 94 24 191/101 (121) 92 03/23/17 13:00 96 24 138/68 (94) 91 03/23/17 12:00 97 21 122/71 (83) 88 03/23/17 11:19 95 93 60 03/23/17 11:17 95 22 93 BiPAP/CPAP 60 03/23/17 11:15 BiPAP 60 03/23/17 11:04 37.0 90 22 112/69 (83) 93 BiPAP 60 03/23/17 11:00 85 21 112/68 (81) 89 03/23/17 10:00 82 18 107/72 (86) 95 03/23/17 09:29 36.8 90 22 113/73 (86) 96 BiPAP 60 03/23/17 09:00 89 22 113/73 (87) 96 03/23/17 08:34 103 28 111/78 (83) 96 03/23/17 08:00 101 25 85 03/23/17 08:00 BiPAP 60 03/23/17 07:30 BiPAP 60 03/23/17 07:30 36.8 101 23 121/76 (91) 94 BiPAP 60 03/23/17 07:11 94 26 94 BiPAP/CPAP 60 03/23/17 07:10 94 94 60 03/23/17 07:00 85 18 121/76 (95) 95 03/23/17 06:00 86 19 133/77 (84) 91 03/23/17 05:00 91 21 122/77 (95) 94 03/23/17 04:00 94 18 112/65 (81) 91 03/23/17 04:00 90 BiPAP 60 03/23/17 04:00 36.6 03/23/17 03:29 81 90 60 03/23/17 03:29 81 18 90 BiPAP/CPAP 60 03/23/17 03:00 85 19 112/74 (94) 88 03/23/17 02:00 79 17 111/68 (80) 92 03/23/17 01:00 79 19 111/65 (77) 91 03/23/17 00:01 36.7 03/23/17 00:00 90 19 125/66 (94) 92 03/22/17 23:59 90 BiPAP 15.0 60 03/22/17 23:22 75 19 92 BiPAP/CPAP 60 03/22/17 23:22 75 92 60 03/22/17 23:00 76 18 114/67 (72) 92 03/22/17 22:00 85 32 125/76 (93) 93 03/22/17 21:00 86 18 110/77 (95) 91 03/22/17 20:40 96 25 156/84 (113) 90 03/22/17 20:30 86 20 134/92 (128) 90 03/22/17 20:00 84 18 117/71 (88) 91 03/22/17 20:00 92 BiPAP 60 03/22/17 20:00 36.6 03/22/17 19:30 85 21 118/75 (94) 90 03/22/17 19:00 93 23 119/83 (90) 91 03/22/17 18:54 75 20 92 BiPAP/CPAP 60 03/22/17 18:53 75 92 60 03/22/17 18:08 75 20 117/79 (92) 91 BiPAP 60 Laboratory Results: Last 24 Hours Test 03/22/17 18:35 03/22/17 20:21 03/22/17 22:10 03/23/17 02:16 Bedside Glucose 151 mg/dl 158 mg/dl 156 mg/dl 156 mg/dl Test 03/23/17 05:06 03/23/17 05:07 03/23/17 06:31 03/23/17 10:07 Blood Gas Sample Site R Radial Bedside Blood Gas pH (LAB) 7.44 Bedside Blood Gas pCO2 (LAB) 43 mmHg Bedside Blood Gas pO2 (LAB) 61 mmHg Bedside Blood Gas HCO3 (LAB) 29 meq/L Bedside Blood Gas Total CO2 31 mEq/l Bedside Blood Gas Base Excess (LAB) 5.0 meq/L Bedside Blood Gas O2 Saturation 92.0 % Devin Test Pass Oxygen Delivery Device BIPAP Bedside Oxygen Rate (breaths/min) 12 Bedside FiO2 60 % Blood Gas IPAP 12 White Blood Count 13.43 K/uL Red Blood Count 3.33 M/uL Hemoglobin 8.9 g/dL Hematocrit 29.4 % Mean Corpuscular Volume 88.3 fL Mean Corpuscular Hemoglobin 26.7 pg Mean Corpuscular Hemoglobin Concent 30.3 g/dl Platelet Count 221 K/uL Mean Platelet Volume 9.7 fL Neutrophils (%) (Auto) 91.9 % Lymphocytes (%) (Auto) 4.5 % Monocytes (%) (Auto) 3.3 % Eosinophils (%) (Auto) 0.0 % Basophils (%) (Auto) 0.0 % Neutrophils # (Auto) 12.35 K/uL Lymphocytes # (Auto) 0.60 K/uL Monocytes # (Auto) 0.44 K/uL Eosinophils # (Auto) 0.00 K/uL Basophils # (Auto) 0.00 K/uL RDW Standard Deviation 57.9 fL RDW Coefficient of Variation 18.0 % Immature Granulocyte % (Auto) 0.3 % Immature Granulocyte # (Auto) 0.04 K/uL Nucleated RBC Absolute Count (auto) 0.02 K/uL Nucleated Red Blood Cells % 0.1 % Platelet Estimate NORMAL Polychromasia 1+ Hypochromasia PRESENT Ovalocytes 1+ Sodium Level 137 mmol/L Potassium Level 4.0 mmol/L Chloride Level 103 mmol/L Carbon Dioxide Level 29 mmol/L Anion Gap 5.0 mmol/L Blood Urea Nitrogen 18 mg/dl Creatinine 0.61 mg/dl Est Creatinine Clear Calc Drug Dose 196.9 ml/min Estimated GFR () 131.2 Estimated GFR (Non- 113.2 BUN/Creatinine Ratio 29.1 Random Glucose 173 mg/dl Lactic Acid Level 1.7 mmol/L Calcium Level 9.2 mg/dl Phosphorus Level 3.1 mg/dl Magnesium Level 2.0 mg/dl Bedside Glucose 167 mg/dl 208 mg/dl Test 03/23/17 11:00 03/23/17 11:57 03/23/17 12:37 03/23/17 12:50 Bedside Glucose 198 mg/dl 199 mg/dl 202 mg/dl Vancomycin Level Trough 15.7 mcg/ml Test 03/23/17 13:54 03/23/17 14:54 03/23/17 15:51 Bedside Glucose 176 mg/dl 151 mg/dl 128 mg/dl
--- NOTE | 2017-03-23 18:31 | Progress Note ---
Medicine Progress Note Date & Time of Visit: Mar 23, 2017 at 17:55. Subjective Patient reports feeling anxious, requesting his ativan dose to be increased as it does not seem to calm him down enough. Pain is well controlled. Still feels some SOB and chest tightness. Is hungry and really wants to eat but desats without the Bipap and is frustrated by this. No overnight events noted. Family at the bedside and awaiting additional family members. Objective Last 8 Hrs Date Time Temp Pulse Resp B/P (MAP) Pulse Ox O2 Delivery O2 Flow Rate FiO2 03/23/17 17:50 37.2 97 22 122/82 (95) 94 BiPAP 60 03/23/17 16:00 BiPAP 60 03/23/17 16:00 97 21 128/89 (107) 92 03/23/17 16:00 37.2 103 22 128/83 (98) 94 BiPAP 60 03/23/17 15:44 91 88 60 03/23/17 15:41 91 23 88 BiPAP/CPAP 60 03/23/17 15:00 97 24 130/95 (114) 91 03/23/17 14:00 98 23 138/92 (115) 93 03/23/17 13:56 37.0 90 22 136/68 (90) 94 BiPAP 60 03/23/17 13:01 94 24 191/101 (121) 92 03/23/17 13:00 96 24 138/68 (94) 91 03/23/17 12:00 97 21 122/71 (83) 88 03/23/17 11:19 95 93 60 03/23/17 11:17 95 22 93 BiPAP/CPAP 60 03/23/17 11:15 BiPAP 60 03/23/17 11:04 37.0 90 22 112/69 (83) 93 BiPAP 60 03/23/17 11:00 85 21 112/68 (81) 89 03/23/17 10:00 82 18 107/72 (86) 95 Physical Exam: GENERAL: Patient is in no acute distress. HEENT: No acute trauma, normocephalic, mucous membranes moist, no nasal congestion, no scleral icterus. Conjunctivae clear NECK: No stridor, trachea is midline. LUNGS: Mild expiratory wheeze, diminished breath sounds, no rhonchi, breath sounds equal. HEART: Without murmurs, gallops, or rubs, regular rate and rhythm. ABDOMEN: Soft, nontender, bowel sounds positive, no hepatosplenomegaly EXTREMITIES: No cyanosis or edema, moving all 4 limbs without pain NEUROLOGIC: Oriented x 3, no acute motor or sensory deficits, no focal weakness. SKIN: No rash, no jaundice, no diaphoresis. Laboratory Results: Last 24 Hours Test 03/22/17 18:35 03/22/17 20:21 03/22/17 22:10 03/23/17 02:16 Bedside Glucose 151 mg/dl 158 mg/dl 156 mg/dl 156 mg/dl Test 03/23/17 05:06 03/23/17 05:07 03/23/17 06:31 03/23/17 10:07 Blood Gas Sample Site R Radial Bedside Blood Gas pH (LAB) 7.44 Bedside Blood Gas pCO2 (LAB) 43 mmHg Bedside Blood Gas pO2 (LAB) 61 mmHg Bedside Blood Gas HCO3 (LAB) 29 meq/L Bedside Blood Gas Total CO2 31 mEq/l Bedside Blood Gas Base Excess (LAB) 5.0 meq/L Bedside Blood Gas O2 Saturation 92.0 % Devin Test Pass Oxygen Delivery Device BIPAP Bedside Oxygen Rate (breaths/min) 12 Bedside FiO2 60 % Blood Gas IPAP 12 White Blood Count 13.43 K/uL Red Blood Count 3.33 M/uL Hemoglobin 8.9 g/dL Hematocrit 29.4 % Mean Corpuscular Volume 88.3 fL Mean Corpuscular Hemoglobin 26.7 pg Mean Corpuscular Hemoglobin Concent 30.3 g/dl Platelet Count 221 K/uL Mean Platelet Volume 9.7 fL Neutrophils (%) (Auto) 91.9 % Lymphocytes (%) (Auto) 4.5 % Monocytes (%) (Auto) 3.3 % Eosinophils (%) (Auto) 0.0 % Basophils (%) (Auto) 0.0 % Neutrophils # (Auto) 12.35 K/uL Lymphocytes # (Auto) 0.60 K/uL Monocytes # (Auto) 0.44 K/uL Eosinophils # (Auto) 0.00 K/uL Basophils # (Auto) 0.00 K/uL RDW Standard Deviation 57.9 fL RDW Coefficient of Variation 18.0 % Immature Granulocyte % (Auto) 0.3 % Immature Granulocyte # (Auto) 0.04 K/uL Nucleated RBC Absolute Count (auto) 0.02 K/uL Nucleated Red Blood Cells % 0.1 % Platelet Estimate NORMAL Polychromasia 1+ Hypochromasia PRESENT Ovalocytes 1+ Sodium Level 137 mmol/L Potassium Level 4.0 mmol/L Chloride Level 103 mmol/L Carbon Dioxide Level 29 mmol/L Anion Gap 5.0 mmol/L Blood Urea Nitrogen 18 mg/dl Creatinine 0.61 mg/dl Est Creatinine Clear Calc Drug Dose 196.9 ml/min Estimated GFR () 131.2 Estimated GFR (Non- 113.2 BUN/Creatinine Ratio 29.1 Random Glucose 173 mg/dl Lactic Acid Level 1.7 mmol/L Calcium Level 9.2 mg/dl Phosphorus Level 3.1 mg/dl Magnesium Level 2.0 mg/dl Bedside Glucose 167 mg/dl 208 mg/dl Test 03/23/17 11:00 03/23/17 11:57 03/23/17 12:37 03/23/17 12:50 Bedside Glucose 198 mg/dl 199 mg/dl 202 mg/dl Vancomycin Level Trough 15.7 mcg/ml Test 03/23/17 13:54 03/23/17 14:54 03/23/17 15:51 Bedside Glucose 176 mg/dl 151 mg/dl 128 mg/dl Assessment & Plan ACUTE ON CHRONIC HYPOXIC RESPIRATORY FAILURE: likely secondary to HCAP, COPD EXACERBATION, HISTORY OF LUNG CA, recent RADIATION PNEUMONITIS -follow cultures; last admission BAL grew meño -for now on empiric Vanc, Cefepime, Levaquin day#2 -continued on IV solu-medrol -continued on Bipap, nebs; continues to desat quickly without the bipap so he has not been able to eat despite having a desire to -in ICU initially, but will transfer to tele -[employer] consulted, appreciate recs POSSIBLE SEPSIS: now resolved -lactic acid normal, was elevated on admission POC lactic acid -was on IV fluids, now off, BP stable -continued on broad spectrum antibiotics 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, s/p chemo and radiation -Oncology discussed with the patient that he would likely no longer be a candidate for additional chemo given his current condition -Palliative care consulted; appreciate recommendations; patient signed POLST form last admission DNR/DNI which was confirmed last night by ICU staff after meeting with the family as the patient decided he would not want to have a trach /PEG and understands that an intubation at this point would almost certainly result in trach/PEG RECENT B/L PE -continue Lovenox BID; patient is injecting this himself into his thigh as he refuses subcutaneous injections into his abdomen and insists he takes them at home in his thigh DM TYPE II: -Pharmacy glycemic control consulted, appreciate recommendations -currently NPO due to inability to come off bipap -was very well controlled as of recent HbA1c from earlier this month ATRIAL FIBRILLATION: -on metoprolol and Lovenox already CHRONIC BACK PAIN: -continued on methadone -receiving IV fentanyl PRN as well ANXIETY: -on IV ativan q 4 hours + xanax BID -was initially on Precedex drip for anxiety and was weaned yesterday -may need Psych to assist with management of anxiety and depression Continued [facility] stay due to: multiple IV medications needed, other Discharge planning: uncertain Current Inpatient Medications: Current Inpatient Medications Medications (Trade) Dose Ordered Sig/Prince Route Start Time Stop Time Status Last Admin Dose Admin Cefepime HCl (Consult) 1 ea DAILY PRN N/A 03/22/17 04:47 04/21/17 04:46 Methylprednisolone Sodium Succinate 60 mg/Syringe 0.96 ml @ 1.5 mls/min Q8H IV 03/22/17 10:00 04/21/17 09:59 03/23/17 17:45 1.5 MLS/MIN Miscellaneous Information (Consult Glycemic Management Pharmacy) 1 ea DAILY PRN N/A 03/22/17 03:53 04/21/17 03:52 Diazepam (Valium Tab) 2 mg BID PRN PO 03/22/17 02:00 04/21/17 01:59 03/23/17 10:14 2 MG Docusate Sodium (coLACE CAP) 100 mg BID PO 03/22/17 09:00 04/21/17 08:59 Magnesium Oxide (Mag-Ox Tab) 400 mg QAM PO 03/22/17 09:00 04/21/17 08:59 03/23/17 08:30 400 MG Methadone HCl (Dolophine Tab) 15 mg Q6H PO 03/22/17 08:00 04/05/17 07:59 03/23/17 14:18 15 MG Metoprolol Succinate (Toprol Xl Tab) 12.5 mg QAM PO 03/22/17 09:00 04/21/17 08:59 03/23/17 08:30 12.5 MG Tramadol HCl (Ultram Tab) 50 mg Q6H PRN PO 03/22/17 02:00 04/21/17 01:59 Triamcinolone Acetonide (Nasacort Allergy 24hr) 2 sprays DAILY BJ 03/22/17 09:00 04/21/17 08:59 03/23/17 08:31 2 SPRAYS Zolpidem Tartrate (Ambien Tab) 10 mg HS PO 03/22/17 21:00 04/21/17 20:59 03/22/17 20:35 10 MG Levofloxacin (Consult) 1 ea UD PRN N/A 03/22/17 05:00 04/21/17 04:59 Vancomycin HCl (Consult) 1 ea UD PRN N/A 03/22/17 05:00 04/21/17 04:59 Ipratropium [place] (Atrovent 0.02% 0.5MG/2.5ML Neb) 0.5 mg Q4R INH 03/22/17 08:00 04/21/17 07:59 03/23/17 15:41 0.5 MG Levalbuterol (Xopenex 1.25MG/ 0.5ML Neb) 1.25 mg Q4R INH 03/22/17 08:00 04/21/17 07:59 03/23/17 15:41 1.25 MG Cefepime HCl 2000 mg/Syringe 20 ml @ 5 mls/min Q8 IV 03/22/17 14:00 03/29/17 13:59 03/23/17 14:18 5 MLS/MIN Insulin Human Regular 250 units/ Sodium Chloride 252.5 ml @ 0 mls/hr Q24H IV 03/22/17 06:45 04/21/17 06:44 03/23/17 06:49 2.5 MLS/HR Insulin Aspart (novoLOG ASPART) SLIDING SCALE PCHS SC 03/22/17 08:00 04/21/17 07:59 Vancomycin HCl 2500 mg/Sodium Chloride 550 ml @ 200 mls/hr Q10H IV 03/22/17 07:00 03/29/17 06:59 03/23/17 12:39 200 MLS/HR Levofloxacin 750 mg/Prmx 150 ml @ 100 mls/hr Q24H IV 03/23/17 03:00 03/30/17 02:59 03/23/17 02:23 100 MLS/HR Famotidine (Pepcid Tab) 20 mg BID PO 03/23/17 09:00 04/22/17 08:59 03/23/17 08:31 20 MG Enoxaparin Sodium (Lovenox Inj) 80 mg Q12H SQ 03/23/17 06:00 04/22/17 05:59 03/23/17 17:48 80 MG Lorazepam (Ativan Inj) 1 mg Q4H PRN IV 03/22/17 19:15 04/21/17 19:14 03/23/17 15:25 1 MG Fentanyl Citrate (Fentanyl Inj) 50 mcg Q1HWA PRN IV 03/22/17 19:30 04/05/17 19:29 03/23/17 11:36 50 MCG Dextrose/Sodium Chloride 1,000 ml @ 75 mls/hr [id number] IV 03/23/17 09:45 04/22/17 09:44 03/23/17 09:37 75 MLS/HR
[2017-03-23] MEDS: ZOLPIDEM TARTRATE 10 MG TAB PO SCH (20:07)
[2017-03-23] MEDS ORDERED: PHARMACY GLYCEMIC MGMT CONSULT STA (23:18)
[2017-03-23] MEDS ORDERED: INSULIN GLARGINE SOLOSTAR 100 UNITS/ML 3 ML PEN SC STA (23:37)
[2017-03-23] MEDS ORDERED: [UNRECOGNIZED DRUG - REMARK] ONE (23:45)
[2017-03-24] VITALS (15 sets, daily range): BP systolic 100–141; BP diastolic 76–82; PULSE 90–143; TEMP 36.5–37.3; O2SAT 84–99
[2017-03-24] MEDS ORDERED: INSULIN ASPART 100 UNITS/ML 3 ML PEN SC SCH (02:00)
[2017-03-24] MEDS: METHADONE HCL 10 MG TAB PO SCH ×4 (02:12→20:43)
[2017-03-24] MEDS: METHYLPREDNISOLONE IV 60 MG in SYRINGE 0 ML IV SCH ×3 (02:27→17:39)
[2017-03-24] MEDS: LEVALBUTEROL 1.25MG/0.5ML NEB INH SCH ×6 (03:00→23:59)
[2017-03-24] MEDS: IPRATROPIUM BROMIDE NEB SOLN 0.02% 2.5 ML VIAL INH SCH ×6 (03:00→23:59)
[2017-03-24] MEDS: LEVOFLOXACIN 750MG / D5W IV SCH (03:50)
[2017-03-24 06:05] LABS: HEMOGLOBIN 9.9 g/dL (14.0-18.0); IG# 0.05 K/uL (0.00-0.02); LYMPH ABS # 0.43 K/uL (1.2-3.4); MEAN CELL VOLUME 88.2 fL (80-100); MEAN CORPUSCULAR HEMOGLOBIN 27.3 pg (25-34); MEAN CORPUSCULAR HGB CONC 30.9 g/dl (32-36); MEAN PLATELET VOLUME 9.6 fL (7.4-10.4); MONO % 1.7 %; MONO ABS # 0.18 K/uL (0.11-0.59); NEUT % 93.8 %; NEUT ABS # 10.22 K/uL (1.4-6.5); NUCLEATED RED BLOOD CELL ABS 0.02 K/uL (0-0); PLATELET COUNT 158 K/uL (130-400); RED CELL DISTRIBUTION WIDTH SD 58.1 fL (36.4-46.3); WHITE BLOOD COUNT 10.88 K/uL (4.8-10.8)
[2017-03-24 06:35] LABS: CALCIUM 9.4 mg/dl (8.5-10.1); CREATININE 0.59 mg/dl (0.60-1.40); POTASSIUM 4.2 mmol/L (3.5-5.1)
[2017-03-24] MEDS: CEFEPIME IV 2,000 MG in SYRINGE 7.5 ML IV SCH ×3 (06:47→22:01)
[2017-03-24] MEDS ORDERED: INSULIN GLARGINE SOLOSTAR 100 UNITS/ML 3 ML PEN SC SCH (08:00)
[2017-03-24] MEDS: DOCUSATE SODIUM 100 MG CAP PO SCH ×2 (09:00→20:42)
[2017-03-24] MEDS: ENOXAPARIN 80 MG/0.8 ML SYR SQ SCH ×2 (09:30→17:39)
[2017-03-24] MEDS: LORAZEPAM 2 MG/ML 1 ML VIAL IV PRN ×3 (09:44→23:44)
[2017-03-24] MEDS: INSULIN ASPART 100 UNITS/ML 3 ML PEN SC SCH ×4 (09:51→20:51)
[2017-03-24] MEDS: METOPROLOL SUCC 25MG EXT REL TAB PO SCH (10:03)
[2017-03-24] MEDS: MAGNESIUM OXIDE 400 MG TAB PO SCH (10:03)
[2017-03-24] MEDS: FAMOTIDINE 20 MG TAB PO SCH ×2 (10:03→20:43)
[2017-03-24] MEDS: TRIAMCINOLONE ACET NASAL SPRAY 10.8ML BTL NAE SCH (10:04)
[2017-03-24] MEDS: VANCOMYCIN INJ 2,500 MG in SODIUM CHLORIDE 0.9% 500ML 500 ML IV SCH ×2 (10:32→17:49)
--- NOTE | 2017-03-24 11:19 | Pharmacy Progress Note ---
Pharmacy Glycemic Short Note 2 Date of Service Mar 24, 2017. OUTPATIENT ANTIDIABETIC REGIMEN: * Humulin N 75 units AM * Humalog SS * Novolin R 15 TIDM ASSESSMENT: * 56 yo diabetic male initiated on insulin drip for BSG management on admission to ICU * Multiple stressors still present: high dose steroids, infection, IV dextrose administration * Given stressors and that insulin drip stable at 2.5 units/hr - plan from dayshift ICU team was to continue insulin drip as checks were down to q4hrs * Pt transferred overnight and request was made to transition patient off of insulin drip * I doubt that we will be able to obtain as good of control off insulin drip since stressors remain * I will attempt to continue SQ basal bolus regimen but as steroids taper/ infection is treated/dextrose changed in fluids - he could require changes nearly every shift PLAN FOR INPATIENT GLYCEMIC CONTROL: * Restart insulin drip per protocol for BSGs >250 * Basal insulin * Lantus 50 units SQ X 1 given late last night to aid in transition * Continue with 60 units X 1 this AM * Further dosing to be based on BSG trend - pt's drip rates seem to never align with basal needs * Bolus insulin * NovoLog per scale ACHS or Q6hrs while NPO + 00,04 checks * Goal Range: Low 110 mg/dL - High 150 mg/dL * Correction Factor: 8 mg/dL/unit * Nutritional / Prandial insulin per carb ratio of 1 unit per 3 grams CHO consumed
[2017-03-24] MEDS: D5W AND 1/2NSS 1,000 ML IV SCH (12:18)
[2017-03-24] MEDS ORDERED: NURSING VERBAL MED ORDER ONE (19:15)
--- NOTE | 2017-03-24 19:23 | Progress Note ---
Medicine Progress Note Date & Time of Visit: Mar 24, 2017 at 19:23. Subjective Patient was given an opportunity to use high flow, states he feels fine on high flow and is able to eat and talk easier, however is aware that he does still desaturate rapidly. No overnight events noted. Complains of LUE edema that has been worsening overnight. Objective Last 8 Hrs Date Time Temp Pulse Resp B/P (MAP) Pulse Ox O2 Delivery O2 Flow Rate FiO2 03/24/17 16:00 94 High Flow Oxygen 55.0 90 03/24/17 15:50 113 23 93 Nasal Cannula 55.0 95 03/24/17 15:15 36.6 109 23 119/76 (90) 90 High Flow Oxygen 03/24/17 12:36 BiPAP 70 03/24/17 11:26 36.9 94 18 141/82 (101) 99 BiPAP 70 Physical Exam: GENERAL: Patient is in no acute distress. HEENT: No acute trauma, normocephalic, mucous membranes moist, no nasal congestion, no scleral icterus. Conjunctivae clear NECK: No stridor, trachea is midline. LUNGS: Mild expiratory wheeze, diminished breath sounds, no rhonchi, breath sounds equal. HEART: Without murmurs, gallops, or rubs, regular rate and rhythm. ABDOMEN: Soft, nontender, bowel sounds positive, no hepatosplenomegaly EXTREMITIES: No cyanosis or edema, moving all 4 limbs without pain NEUROLOGIC: Oriented x 3, no acute motor or sensory deficits, no focal weakness. SKIN: No rash, no jaundice, no diaphoresis. Laboratory Results: Last 24 Hours Test 03/23/17 21:01 03/23/17 23:01 03/24/17 02:04 03/24/17 05:52 Bedside Glucose 114 mg/dl 102 mg/dl 213 mg/dl White Blood Count 10.88 K/uL Red Blood Count 3.63 M/uL Hemoglobin 9.9 g/dL Hematocrit 32.0 % Mean Corpuscular Volume 88.2 fL Mean Corpuscular Hemoglobin 27.3 pg Mean Corpuscular Hemoglobin Concent 30.9 g/dl Platelet Count 158 K/uL Mean Platelet Volume 9.6 fL Neutrophils (%) (Auto) 93.8 % Lymphocytes (%) (Auto) 4.0 % Monocytes (%) (Auto) 1.7 % Eosinophils (%) (Auto) 0.0 % Basophils (%) (Auto) 0.0 % Neutrophils # (Auto) 10.22 K/uL Lymphocytes # (Auto) 0.43 K/uL Monocytes # (Auto) 0.18 K/uL Eosinophils # (Auto) 0.00 K/uL Basophils # (Auto) 0.00 K/uL RDW Standard Deviation 58.1 fL RDW Coefficient of Variation 18.0 % Immature Granulocyte % (Auto) 0.5 % Immature Granulocyte # (Auto) 0.05 K/uL Nucleated RBC Absolute Count (auto) 0.02 K/uL Nucleated Red Blood Cells % 0.1 % Sodium Level 135 mmol/L Potassium Level 4.2 mmol/L Chloride Level 100 mmol/L Carbon Dioxide Level 32 mmol/L Anion Gap 3.0 mmol/L Blood Urea Nitrogen 17 mg/dl Creatinine 0.59 mg/dl Est Creatinine Clear Calc Drug Dose 205.1 ml/min Estimated GFR () 133.0 Estimated GFR (Non- 114.8 BUN/Creatinine Ratio 29.0 Random Glucose 204 mg/dl Calcium Level 9.4 mg/dl Test 03/24/17 07:30 03/24/17 11:23 03/24/17 16:29 Bedside Glucose 202 mg/dl 205 mg/dl 152 mg/dl Assessment & Plan ACUTE ON CHRONIC HYPOXIC RESPIRATORY FAILURE: likely secondary to HCAP, COPD EXACERBATION, HISTORY OF LUNG CA, recent RADIATION PNEUMONITIS -follow cultures; last admission BAL grew meño -for now on empiric Vanc, Cefepime, Levaquin; can likely stop the vanco as MRSA screen negative -continued on IV solu-medrol -continued on Bipap, nebs; continues to desat quickly without the bipap -in ICU initially, but now in tele as patient is DNI -Packer consulted, appreciate recs POSSIBLE SEPSIS: now resolved -lactic acid normal, was elevated on admission POC lactic acid -was on IV fluids, now off, BP stable -continued on broad spectrum antibiotics 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, s/p chemo and radiation -Oncology discussed with the patient that he would likely no longer be a candidate for additional chemo given his current condition -Palliative care consulted; appreciate recommendations; patient signed POLST form last admission DNR/DNI which was confirmed by ICU staff after meeting with the family as the patient decided he would not want to have a trach/PEG and understands that an intubation at this point would almost certainly result in trach/PEG RECENT B/L PE -continue Lovenox BID; patient is injecting this himself into his thigh as he refuses subcutaneous injections into his abdomen and insists he takes them at home in his thigh -check LUE doppler due to new edema DM TYPE II: -Pharmacy glycemic control consulted, appreciate recommendations -currently NPO due to inability to come off bipap -was very well controlled as of recent HbA1c from earlier this month ATRIAL FIBRILLATION: -on metoprolol and Lovenox already CHRONIC BACK PAIN: -continued on methadone ANXIETY: -on IV ativan q 4 hours + xanax BID -was initially on Precedex drip for anxiety and was changed to ativan and xanax -will consult Psych to assist with management of anxiety and depression Continued [facility] stay due to: multiple IV medications needed, other Discharge planning: uncertain Current Inpatient Medications: Current Inpatient Medications Medications (Trade) Dose Ordered Sig/Prince Route Start Time Stop Time Status Last Admin Dose Admin Cefepime HCl (Consult) 1 ea DAILY PRN N/A 03/22/17 04:47 04/21/17 04:46 Methylprednisolone Sodium Succinate 60 mg/Syringe 0.96 ml @ 1.5 mls/min Q8H IV 03/22/17 10:00 04/21/17 09:59 03/24/17 17:39 1.5 MLS/MIN Miscellaneous Information (Consult Glycemic Management Pharmacy) 1 ea DAILY PRN N/A 03/22/17 03:53 04/21/17 03:52 Diazepam (Valium Tab) 2 mg BID PRN PO 03/22/17 02:00 04/21/17 01:59 03/23/17 10:14 2 MG Docusate Sodium (coLACE CAP) 100 mg BID PO 03/22/17 09:00 04/21/17 08:59 Magnesium Oxide (Mag-Ox Tab) 400 mg QAM PO 03/22/17 09:00 04/21/17 08:59 03/24/17 10:03 400 MG Methadone HCl (Dolophine Tab) 15 mg Q6H PO 03/22/17 08:00 04/05/17 07:59 03/24/17 14:18 15 MG Metoprolol Succinate (Toprol Xl Tab) 12.5 mg QAM PO 03/22/17 09:00 04/21/17 08:59 03/24/17 10:03 12.5 MG Tramadol HCl (Ultram Tab) 50 mg Q6H PRN PO 03/22/17 02:00 04/21/17 01:59 Triamcinolone Acetonide (Nasacort Allergy 24hr) 2 sprays DAILY BJ 03/22/17 09:00 04/21/17 08:59 03/24/17 10:04 2 SPRAYS Zolpidem Tartrate (Ambien Tab) 10 mg HS PO 03/22/17 21:00 04/21/17 20:59 03/23/17 20:07 10 MG Levofloxacin (Consult) 1 ea UD PRN N/A 03/22/17 05:00 04/21/17 04:59 Vancomycin HCl (Consult) 1 ea UD PRN N/A 03/22/17 05:00 04/21/17 04:59 Ipratropium [place] (Atrovent 0.02% 0.5MG/2.5ML Neb) 0.5 mg Q4R INH 03/22/17 08:00 04/21/17 07:59 03/24/17 15:50 0.5 MG Levalbuterol (Xopenex 1.25MG/ 0.5ML Neb) 1.25 mg Q4R INH 03/22/17 08:00 04/21/17 07:59 03/24/17 15:50 1.25 MG Cefepime HCl 2000 mg/Syringe 20 ml @ 5 mls/min Q8 IV 03/22/17 14:00 03/29/17 13:59 03/24/17 14:18 5 MLS/MIN Vancomycin HCl 2500 mg/Sodium Chloride 550 ml @ 200 mls/hr Q10H IV 03/22/17 07:00 03/29/17 06:59 03/24/17 17:49 200 MLS/HR Levofloxacin 750 mg/Prmx 150 ml @ 100 mls/hr Q24H IV 03/23/17 03:00 03/30/17 02:59 03/24/17 03:50 100 MLS/HR Famotidine (Pepcid Tab) 20 mg BID PO 03/23/17 09:00 04/22/17 08:59 03/24/17 10:03 20 MG Enoxaparin Sodium (Lovenox Inj) 80 mg Q12H SQ 03/23/17 06:00 04/22/17 05:59 03/24/17 17:39 80 MG Lorazepam (Ativan Inj) 1 mg Q4H PRN IV 03/22/17 19:15 04/21/17 19:14 03/24/17 14:15 1 MG Fentanyl Citrate (Fentanyl Inj) 50 mcg Q1HWA PRN IV 03/22/17 19:30 04/05/17 19:29 03/23/17 11:36 50 MCG Insulin Aspart (novoLOG ASPART) SLIDING SCALE ACHS SC 03/24/17 07:00 04/23/17 06:59 03/24/17 17:43 19 UNITS Insulin Aspart (novoLOG ASPART) SLIDING SCALE 0000,0400 SC 03/25/17 00:00 04/24/17 00:00 Insulin Glargine (Lantus Solostar Pen) SEE PROTOCOL Q12 SC 03/24/17 21:00 04/23/17 20:59 Sodium Chloride 1,000 ml @ 75 mls/hr [id number] IV 03/24/17 19:30 04/23/17 19:29
[2017-03-24] MEDS: SODIUM CHLORIDE 0.9% 1000ML 1,000 ML IV SCH (19:53)
[2017-03-24] MEDS: ZOLPIDEM TARTRATE 10 MG TAB PO SCH (20:43)
[2017-03-24] MEDS: INSULIN GLARGINE SOLOSTAR 100 UNITS/ML 3 ML PEN SC SCH (20:54)
--- NOTE | 2017-03-24 21:34 | DIAGNOSTIC IMAGING REPORT ---
L VENOUS DOPPLER UPR EXT UNIL CLINICAL HISTORY: 56 years-old Male presenting with Arm edema, previous blood clot, ?new DVT. TECHNIQUE: Real-time grayscale and color and spectral Doppler ultrasound imaging of the veins of the left upper extremity was performed. Compression and augmentation were also utilized. COMPARISON: 12/18/2016. FINDINGS: Left: Internal jugular vein: Occlusive or nearly occlusive thrombus. Subclavian vein: Occlusive or nearly occlusive thrombus. Axillary vein: Occlusive thrombus. Basilic vein: Thrombus. Brachial vein: Thrombus within one of the 2 duplicated brachial veins. Cephalic vein: Patent. Radial vein: Patent. Ulnar vein: Patent. Other: Subcutaneous edema. IMPRESSION: Extensive deep venous thrombosis of central veins in the left upper extremity, including the left internal jugular vein. The report will be called/faxed according to standard departmental protocol. Electronically signed by: Octavio Torres M.D. 03/24/2017 9:32 PM Dictated Date/Time: 03/24/2017 9:29 PM
[2017-03-25] VITALS (12 sets, daily range): BP systolic 123–146; BP diastolic 72–95; PULSE 56–133; TEMP 36.1–37.3; O2SAT 82–97
[2017-03-25] MEDS: INSULIN ASPART 100 UNITS/ML 3 ML PEN SC SCH ×6 (00:27→21:00)
[2017-03-25] MEDS: METHYLPREDNISOLONE IV 60 MG in SYRINGE 0 ML IV SCH ×2 (02:21→14:48)
[2017-03-25] MEDS: METHADONE HCL 10 MG TAB PO SCH ×4 (02:21→21:56)
[2017-03-25] MEDS: LEVOFLOXACIN 750MG / D5W IV SCH (02:23)
[2017-03-25] MEDS: ENOXAPARIN 80 MG/0.8 ML SYR SQ SCH ×2 (05:29→16:52)
[2017-03-25] MEDS: LORAZEPAM 2 MG/ML 1 ML VIAL IV PRN ×3 (05:29→21:04)
[2017-03-25] MEDS: VANCOMYCIN INJ 2,500 MG in SODIUM CHLORIDE 0.9% 500ML 500 ML IV SCH ×2 (05:29→14:48)
[2017-03-25] MEDS: CEFEPIME IV 2,000 MG in SYRINGE 7.5 ML IV SCH ×3 (05:46→21:56)
[2017-03-25] MEDS: IPRATROPIUM BROMIDE NEB SOLN 0.02% 2.5 ML VIAL INH SCH ×5 (07:21→23:33)
[2017-03-25] MEDS: LEVALBUTEROL 1.25MG/0.5ML NEB INH SCH ×5 (07:21→23:33)
[2017-03-25] MEDS: FAMOTIDINE 20 MG TAB PO SCH ×2 (08:49→21:12)
[2017-03-25] MEDS: DOCUSATE SODIUM 100 MG CAP PO SCH ×2 (08:49→21:00)
[2017-03-25] MEDS: METOPROLOL SUCC 25MG EXT REL TAB PO SCH (08:49)
[2017-03-25] MEDS: MAGNESIUM OXIDE 400 MG TAB PO SCH (08:49)
[2017-03-25] MEDS: SODIUM CHLORIDE 0.9% 1000ML 1,000 ML IV SCH ×2 (08:50→21:22)
[2017-03-25] MEDS: INSULIN GLARGINE SOLOSTAR 100 UNITS/ML 3 ML PEN SC SCH ×2 (09:06→21:00)
[2017-03-25 09:12] LABS: BASO % 0.1 %; BASO ABS # 0.01 K/uL (0-0.2); HEMATOCRIT 37.8 % (42-52); HEMOGLOBIN 11.4 g/dL (14.0-18.0); IG# 0.12 K/uL (0.00-0.02); LYMPH % 3.9 %; LYMPH ABS # 0.55 K/uL (1.2-3.4); MEAN CELL VOLUME 87.1 fL (80-100); MEAN CORPUSCULAR HEMOGLOBIN 26.3 pg (25-34); MEAN PLATELET VOLUME 10.2 fL (7.4-10.4); MONO % 2.8 %; MONO ABS # 0.39 K/uL (0.11-0.59); NEUT % 92.3 %; NEUT ABS # 12.89 K/uL (1.4-6.5); NUCLEATED RED BLOOD CELL ABS 0.04 K/uL (0-0); PLATELET COUNT 157 K/uL (130-400); RED CELL DISTRIBUTION WIDTH CV 17.5 % (11.5-14.5); RED CELL DISTRIBUTION WIDTH SD 56.3 fL (36.4-46.3); WHITE BLOOD COUNT 13.96 K/uL (4.8-10.8)
[2017-03-25 09:12] LABS: CALCIUM 9.5 mg/dl (8.5-10.1); CREATININE 0.54 mg/dl (0.60-1.40); POTASSIUM 3.9 mmol/L (3.5-5.1)
[2017-03-25 09:14] LABS: MEAN CORPUSCULAR HGB CONC 30.2 g/dl (32-36)
[2017-03-25] MEDS: TRIAMCINOLONE ACET NASAL SPRAY 10.8ML BTL NAE SCH (10:46)
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
--- NOTE | 2017-03-25 13:51 | Pharmacy Progress Note ---
Pharmacy Glycemic Short Note 2 Date of Service Mar 25, 2017. OUTPATIENT ANTIDIABETIC REGIMEN: * Humulin N 75 units AM * Humalog SS * Novolin R 15 TIDM ASSESSMENT: * 56 yo diabetic male initiated on insulin drip for BSG management on admission to ICU * Multiple stressors still present: high dose steroids, infection, IV dextrose administration * Pt transitioned off insulin drip overnight 03/23 when drip was running at a continuous rate of 2.5 u/hr * Over the past 24 hours - a total of 149 units of SQ insulin given * BSGs ranging 148-272 * Steroids have been tapered from 60 IV every 8 hours to 12 hours which should not make that much a difference with insulin needs * I do feel regimen is basal heavy and need to cut back * I will go with a Lantus scale tonight similar to a prior admission * Continue to titrate insulin aggressively as steroids tapered PLAN FOR INPATIENT GLYCEMIC CONTROL: * Basal insulin * Lantus 20 units given this AM for fasting BSG 77 * Continue with new Lantus scale BID -0 units if BSG <120 -25 units if BSG 120-180 -50 units if BSG >180 * Bolus insulin * NovoLog per scale ACHS or Q6hrs while NPO * Goal Range: Low 110 mg/dL - High 150 mg/dL * Correction Factor: 8 mg/dL/unit * Nutritional / Prandial insulin per carb ratio of 1 unit per 3 grams CHO consumed
[2017-03-25] MEDS: DIAZEPAM 2MG TAB PO PRN ×2 (15:02→22:04)
--- NOTE | 2017-03-25 18:42 | Progress Note ---
Medicine Progress Note Date & Time of Visit: Mar 25, 2017 at 18:42. Subjective Patient denies any new complaints other than asking about his insulin regimen and why he can't control it the way he does outside of the hospital; patient also requesting to have his ativan dose or frequency increased. He complains on pain and swelling in his LUE which is not any better. No overnight events noted. Tolerating PO. Objective Last 8 Hrs Date Time Temp Pulse Resp B/P (MAP) Pulse Ox O2 Delivery O2 Flow Rate FiO2 03/25/17 16:42 High Flow Oxygen 55.0 90 03/25/17 16:11 36.7 104 24 142/87 (105) 91 High Flow Oxygen 55.0 03/25/17 15:17 105 90 80 03/25/17 15:16 105 28 86 Nasal Cannula 55.0 100 03/25/17 12:11 High Flow Oxygen 55.0 90 03/25/17 11:28 36.7 111 28 126/89 (101) 90 High Flow Oxygen 03/25/17 10:57 109 24 92 Nasal Cannula 55.0 100 Physical Exam: GENERAL: Patient is in no acute distress. HEENT: No acute trauma, normocephalic, mucous membranes moist, no nasal congestion, no scleral icterus. Conjunctivae clear NECK: No stridor, trachea is midline. LUNGS: Mild expiratory wheeze, diminished breath sounds, no rhonchi, breath sounds equal. HEART: Without murmurs, gallops, or rubs, regular rate and rhythm. ABDOMEN: Soft, nontender, bowel sounds positive, no hepatosplenomegaly EXTREMITIES: No cyanosis or edema, moving all 4 limbs without difficulty or pain NEUROLOGIC: Oriented x 3, no acute motor or sensory deficits, no focal weakness. SKIN: No rash, no jaundice, no diaphoresis. Laboratory Results: Last 24 Hours Test 03/24/17 20:50 03/25/17 00:23 03/25/17 04:04 03/25/17 06:41 Bedside Glucose 148 mg/dl 277 mg/dl 182 mg/dl 77 mg/dl Test 03/25/17 08:18 03/25/17 09:00 03/25/17 11:26 03/25/17 11:52 Sodium Level 139 mmol/L Potassium Level 3.9 mmol/L Chloride Level 101 mmol/L Carbon Dioxide Level 33 mmol/L Anion Gap 5.0 mmol/L Blood Urea Nitrogen 23 mg/dl Creatinine 0.54 mg/dl Est Creatinine Clear Calc Drug Dose 223.6 ml/min Estimated GFR () 138.0 Estimated GFR (Non- 119.0 BUN/Creatinine Ratio 42.7 Random Glucose 75 mg/dl Calcium Level 9.5 mg/dl White Blood Count 13.96 K/uL Red Blood Count 4.34 M/uL Hemoglobin 11.4 g/dL Hematocrit 37.8 % Mean Corpuscular Volume 87.1 fL Mean Corpuscular Hemoglobin 26.3 pg Mean Corpuscular Hemoglobin Concent 30.2 g/dl Platelet Count 157 K/uL Mean Platelet Volume 10.2 fL Neutrophils (%) (Auto) 92.3 % Lymphocytes (%) (Auto) 3.9 % Monocytes (%) (Auto) 2.8 % Eosinophils (%) (Auto) 0.0 % Basophils (%) (Auto) 0.1 % Neutrophils # (Auto) 12.89 K/uL Lymphocytes # (Auto) 0.55 K/uL Monocytes # (Auto) 0.39 K/uL Eosinophils # (Auto) 0.00 K/uL Basophils # (Auto) 0.01 K/uL RDW Standard Deviation 56.3 fL RDW Coefficient of Variation 17.5 % Immature Granulocyte % (Auto) 0.9 % Immature Granulocyte # (Auto) 0.12 K/uL Nucleated RBC Absolute Count (auto) 0.04 K/uL Nucleated Red Blood Cells % 0.3 % Bedside Glucose 159 mg/dl Heparin Anti-Xa Act, Low Molec Wt 0.64 IU/ML Test 03/25/17 16:42 Bedside Glucose 103 mg/dl Assessment & Plan ACUTE ON CHRONIC HYPOXIC RESPIRATORY FAILURE: likely secondary to HCAP, COPD EXACERBATION, HISTORY OF LUNG CA, recent RADIATION PNEUMONITIS -follow cultures; last admission BAL grew meño -for now on empiric Vanc, Cefepime, Levaquin; can likely stop the vanco as MRSA screen negative -continued on IV solu-medrol -continued on Bipap, nebs; continues to desat quickly without the bipap -in ICU initially, but now in tele as patient is DNI -[employer] Operator consulted, appreciate recs -discussed with the patients POA, [id number] and brother that the patient's chance for recovery is poor POSSIBLE SEPSIS: now resolved -lactic acid normal, was elevated on admission POC lactic acid -was on IV fluids, now off, BP stable -continued on broad spectrum antibiotics 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, s/p chemo and radiation -Oncology discussed with the patient that he would likely no longer be a candidate for additional chemo given his current condition -Palliative care consulted; appreciate recommendations; patient signed POLST form last admission DNR/DNI which was confirmed by ICU staff after meeting with the family as the patient decided he would not want to have a trach/PEG and understands that an intubation at this point would almost certainly result in trach/PEG RECENT B/L PE AND NEW LUE DVT: -continue Lovenox BID; patient is injecting this himself into his thigh as he refuses subcutaneous injections into his abdomen and insists he takes them at home in his thigh -LUE doppler done due to new edema, + for DVT in the left IJ, left subclavian, left brachial, left basilic, and left axillary veins -Anti-Xa was 0.64 which falls in the therapeutic range -PF4 was checked due to worsening thrombocytopenia and new clots and was negative -discussed with Hem/onc and advised to continue Lovenox as presently taking DM TYPE II: -Pharmacy glycemic control consulted, appreciate recommendations -has poor oral intake due to difficulty breathing, even while on high flow -was very well controlled as of recent HbA1c from earlier this month ATRIAL FIBRILLATION: -on metoprolol and Lovenox already CHRONIC BACK PAIN: -continued on methadone ANXIETY: -on IV ativan q 4 hours + xanax BID -was initially on Precedex drip for anxiety and was changed to ativan and xanax -Consulted Psych to assist with management of anxiety and depression, but patient does not want to try gabapentin and requests his medication doses be raised which is risky with his fragile respiratory state Continued [facility] stay due to: multiple IV medications needed, other Discharge planning: uncertain Current Inpatient Medications: Current Inpatient Medications Medications (Trade) Dose Ordered Sig/Prince Route Start Time Stop Time Status Last Admin Dose Admin Cefepime HCl (Consult) 1 ea DAILY PRN N/A 03/22/17 04:47 04/21/17 04:46 Miscellaneous Information (Consult Glycemic Management Pharmacy) 1 ea DAILY PRN N/A 03/22/17 03:53 04/21/17 03:52 Diazepam (Valium Tab) 2 mg BID PRN PO 03/22/17 02:00 04/21/17 01:59 03/25/17 15:02 2 MG Docusate Sodium (coLACE CAP) 100 mg BID PO 03/22/17 09:00 04/21/17 08:59 Magnesium Oxide (Mag-Ox Tab) 400 mg QAM PO 03/22/17 09:00 04/21/17 08:59 03/25/17 08:49 400 MG Methadone HCl (Dolophine Tab) 15 mg Q6H PO 03/22/17 08:00 04/05/17 07:59 03/25/17 14:47 15 MG Metoprolol Succinate (Toprol Xl Tab) 12.5 mg QAM PO 03/22/17 09:00 04/21/17 08:59 03/25/17 08:49 12.5 MG Tramadol HCl (Ultram Tab) 50 mg Q6H PRN PO 03/22/17 02:00 04/21/17 01:59 Triamcinolone Acetonide (Nasacort Allergy 24hr) 2 sprays DAILY BJ 03/22/17 09:00 04/21/17 08:59 03/25/17 10:46 2 SPRAYS Zolpidem Tartrate (Ambien Tab) 10 mg HS PO 03/22/17 21:00 04/21/17 20:59 03/24/17 20:43 10 MG Levofloxacin (Consult) 1 ea UD PRN N/A 03/22/17 05:00 04/21/17 04:59 Vancomycin HCl (Consult) 1 ea UD PRN N/A 03/22/17 05:00 04/21/17 04:59 Ipratropium [place] (Atrovent 0.02% 0.5MG/2.5ML Neb) 0.5 mg Q4R INH 03/22/17 08:00 04/21/17 07:59 03/25/17 15:14 0.5 MG Levalbuterol (Xopenex 1.25MG/ 0.5ML Neb) 1.25 mg Q4R INH 03/22/17 08:00 04/21/17 07:59 03/25/17 15:14 1.25 MG Cefepime HCl 2000 mg/Syringe 20 ml @ 5 mls/min Q8 IV 03/22/17 14:00 03/29/17 13:59 03/25/17 14:48 5 MLS/MIN Vancomycin HCl 2500 mg/Sodium Chloride 550 ml @ 200 mls/hr Q10H IV 03/22/17 07:00 03/29/17 06:59 03/25/17 14:48 200 MLS/HR Levofloxacin 750 mg/Prmx 150 ml @ 100 mls/hr Q24H IV 03/23/17 03:00 03/30/17 02:59 03/25/17 02:23 100 MLS/HR Famotidine (Pepcid Tab) 20 mg BID PO 03/23/17 09:00 04/22/17 08:59 03/25/17 08:49 20 MG Enoxaparin Sodium (Lovenox Inj) 80 mg Q12H SQ 03/23/17 06:00 04/22/17 05:59 03/25/17 16:52 80 MG Lorazepam (Ativan Inj) 1 mg Q4H PRN IV 03/22/17 19:15 04/21/17 19:14 03/25/17 11:44 1 MG Fentanyl Citrate (Fentanyl Inj) 50 mcg Q1HWA PRN IV 03/22/17 19:30 04/05/17 19:29 03/23/17 11:36 50 MCG Insulin Aspart (novoLOG ASPART) SLIDING SCALE ACHS SC 03/24/17 07:00 04/23/17 06:59 03/25/17 16:51 12 UNITS Insulin Glargine (Lantus Solostar Pen) SEE PROTOCOL Q12 SC 03/24/17 21:00 04/23/17 20:59 03/25/17 09:06 20 UNITS Sodium Chloride 1,000 ml @ 75 mls/hr [id number] IV 03/24/17 19:30 04/23/17 19:29 03/24/17 19:53 75 MLS/HR Methylprednisolone Sodium Succinate 60 mg/Syringe 0.96 ml @ 1.5 mls/min Q12H IV 03/25/17 14:00 04/24/17 13:59 03/25/17 14:48 1.5 MLS/MIN
--- NOTE | 2017-03-25 21:38 | Progress Note ---
Post ICU Progress Note Date & Time Mar 25, 2017 at 21:36 Vital Signs Vital Signs Past 12 Hours Date Time Temp Pulse Resp B/P (MAP) Pulse Ox O2 Delivery O2 Flow Rate FiO2 03/25/17 20:34 108 28 90 Nasal Cannula 55.0 100 03/25/17 20:08 36.6 102 26 139/90 (106) 92 High Flow Oxygen 55.0 03/25/17 16:42 High Flow Oxygen 55.0 90 03/25/17 16:11 36.7 104 24 142/87 (105) 91 High Flow Oxygen 55.0 03/25/17 15:17 105 90 80 03/25/17 15:16 105 28 86 Nasal Cannula 55.0 100 03/25/17 12:11 High Flow Oxygen 55.0 90 03/25/17 11:28 36.7 111 28 126/89 (101) 90 High Flow Oxygen 03/25/17 10:57 109 24 92 Nasal Cannula 55.0 100 Notes Mental Status: alert / awake Nausea / Vomiting: adequately controlled Pain: adequately controlled Airway Patency, RR, SpO2: stable & adequate BP & HR: stable & adequate Patient is a 56-year-old male well-known to the ICU for recent admissions. Patient was admitted for acute on chronic hypoxic respiratory failure requiring noninvasive ventilatory techniques. During his stay in the ICU, symptoms did improve allowing for transfer of the ICU. During his stay, the patient did fill out POLST form with family. He is now a DO NOT RESUSCITATE/DO NOT INTUBATE. Patient evaluated a bedside today. He does report feeling better at this time. He is resting comfortably with high flow in place. He uses BiPAP at night. Patient offers no complaints at this point. Consider outpatient follow up in 1 to 2 weeks with: Per admitting team. Repeat imaging needed: CXRs PRN Follow up cultures: Per admitting team. Reviewed progress notes, labs, and inpatient medication list Continue current management Additional recommendations: None at this time. Thank you for allowing us to participate in the care of this patient. At this time, Critical Care Services will sign off on patient's care. Please feel free to reconsult as needed. Consults & Procedures Consultants: Palliative: Janna Srinivasan. Procedures: None.
[2017-03-25] MEDS: ZOLPIDEM TARTRATE 10 MG TAB PO SCH (21:57)
[2017-03-26] VITALS (16 sets, daily range): BP systolic 94–144; BP diastolic 68–89; PULSE 102–121; TEMP 36.1–37.1; O2SAT 90–98
[2017-03-26] MEDS ORDERED: INSULIN ASPART 100 UNITS/ML 3 ML PEN SC SCH
[2017-03-26] MEDS ORDERED: VANCOMYCIN TROUGH ONE (00:30)
[2017-03-26] MEDS: VANCOMYCIN INJ 2,500 MG in SODIUM CHLORIDE 0.9% 500ML 500 ML IV SCH ×3 (00:35→21:00)
[2017-03-26] MEDS: METHYLPREDNISOLONE IV 60 MG in SYRINGE 0 ML IV SCH (02:07)
[2017-03-26] MEDS: TRAMADOL HCL 50 MG TAB PO PRN ×3 (02:24→22:20)
[2017-03-26] MEDS: LEVALBUTEROL 1.25MG/0.5ML NEB INH SCH ×6 (03:14→23:19)
[2017-03-26] MEDS: IPRATROPIUM BROMIDE NEB SOLN 0.02% 2.5 ML VIAL INH SCH ×6 (03:14→23:19)
[2017-03-26] MEDS: LEVOFLOXACIN 750MG / D5W IV SCH (03:50)
[2017-03-26] MEDS: METHADONE HCL 10 MG TAB PO SCH ×4 (03:51→22:20)
[2017-03-26] MEDS: ENOXAPARIN 80 MG/0.8 ML SYR SQ SCH ×2 (06:12→19:23)
[2017-03-26] MEDS: CEFEPIME IV 2,000 MG in SYRINGE 7.5 ML IV SCH ×3 (06:13→22:19)
[2017-03-26] MEDS: LORAZEPAM 2 MG/ML 1 ML VIAL IV PRN ×4 (07:47→22:30)
[2017-03-26] MEDS: DOCUSATE SODIUM 100 MG CAP PO SCH ×2 (07:49→21:00)
[2017-03-26] MEDS: FAMOTIDINE 20 MG TAB PO SCH ×2 (07:50→21:01)
[2017-03-26] MEDS: MAGNESIUM OXIDE 400 MG TAB PO SCH (07:50)
[2017-03-26] MEDS: METOPROLOL SUCC 25MG EXT REL TAB PO SCH (07:51)
[2017-03-26] MEDS: TRIAMCINOLONE ACET NASAL SPRAY 10.8ML BTL NAE SCH (07:51)
[2017-03-26 07:54] LABS: CALCIUM 8.9 mg/dl (8.5-10.1); CREATININE 0.48 mg/dl (0.60-1.40); POTASSIUM 4.6 mmol/L (3.5-5.1)
[2017-03-26] MEDS: INSULIN ASPART 100 UNITS/ML 3 ML PEN SC SCH ×4 (07:57→21:00)
[2017-03-26] MEDS: INSULIN GLARGINE SOLOSTAR 100 UNITS/ML 3 ML PEN SC SCH ×2 (07:57→21:00)
--- NOTE | 2017-03-26 08:46 | Pharmacy Progress Note ---
Pharmacy Abx Dose Short Note Date of Service Mar 26, 2017. Assessment & Plan Item Value Date Time Vancomycin Level Trough 17.1 mcg/ml 03/26/17 0030 Creatinine 0.48 mg/dl L 03/26/17704 Est Creatinine Clear Calc Drug Dose 251.8 ml/min 03/26/17704 Assessment * Day # 6 VANC/LVQ/Cefepime Plan Vancomycin * Trough level of 17.1 mcg/mL is therapeutic, pt has achieved Css. * Continue VANC 2500mg (19mg/kg) IV every 10 hours * Will recheck Vanc trough in a couple days and continue to closely monitor renal function. LVQ: continue 750mg IV every 24 hours Cefepime: Continue 2 grams IVP every 8 hours. Pharmacy will continue to follow and will adjust dose/frequency as necessary. Thank you.
[2017-03-26 09:40] LABS: BASO % 0.1 %; BASO ABS # 0.01 K/uL (0-0.2); EOS % 0.1 %; EOS ABS # 0.01 K/uL (0-0.5); HEMATOCRIT 33.2 % (42-52); HEMOGLOBIN 10.1 g/dL (14.0-18.0); IG# 0.13 K/uL (0.00-0.02); LYMPH % 1.9 %; LYMPH ABS # 0.26 K/uL (1.2-3.4); MEAN CELL VOLUME 88.1 fL (80-100); MEAN CORPUSCULAR HEMOGLOBIN 26.8 pg (25-34); MEAN CORPUSCULAR HGB CONC 30.4 g/dl (32-36); MEAN PLATELET VOLUME 11.2 fL (7.4-10.4); MONO % 5.8 %; MONO ABS # 0.78 K/uL (0.11-0.59); NEUT % 91.1 %; NEUT ABS # 12.31 K/uL (1.4-6.5); PLATELET COUNT 139 K/uL (130-400); RED CELL DISTRIBUTION WIDTH CV 17.7 % (11.5-14.5); RED CELL DISTRIBUTION WIDTH SD 57.3 fL (36.4-46.3)
[2017-03-26] MEDS: DIAZEPAM 2MG TAB PO PRN ×2 (10:22→19:50)
--- NOTE | 2017-03-26 11:36 | Hematology/Oncology Prog Note ---
Hematology/Onc Progress Note Date of Service Mar 26, 2017. Subjective I saw him at bedside in the morning, he was sitting in the bed, receiving BiPAP at Fio2 of 80%, O2 saturation is around 98%, otherwise hemodynamically stable, feeling somewhat weak and tired, quite anxious about his clinical condition, also noticed to have increasing left upper extremity edema, doppler evaluation shows progression of the left upper extremity DVT, he is already on therapeutic dose of Lovenox for DVT and pulmonary embolism, he asked me that he is he going to get better, I told him that most likely his condition is not likely to improve, advanced directive status changed to DNR DNI in his case. Poor oral intake noted. No leg edema. Cough with scanty white expectant present, no hemoptysis, no bleeding from any sites. - Left approximately Doppler evaluation done on 03/24/2017 --> Extensive DVT in the left upper extremity including left internal jugular vei - Anti-Xa level --> 0.64 (03/15/2017) - WBC 13,500, H&H of 10/33, Platelet count of of 139,000. - BUN/creatinine: 20/0.4. Will continue with the current dose of Lovenox, broad-spectrum antibiotic coverage. Will continue current medical management. Overall prognosis remains poor. Vital Signs Vital Signs Past 12 Hours Date Time Temp Pulse Resp B/P (MAP) Pulse Ox O2 Delivery O2 Flow Rate FiO2 03/26/17 11:09 108 98 80 03/26/17 11:08 108 18 98 BiPAP/CPAP 80 03/26/17 08:31 111 91 80 03/26/17 07:32 36.9 102 20 110/74 (86) 94 BiPAP 03/26/17 07:16 111 91 80 03/26/17 07:15 108 22 91 BiPAP/CPAP 80 03/26/17 03:13 111 28 91 BiPAP/CPAP 80 03/26/17 02:36 37.1 105 18 144/89 (107) 94 BiPAP 100 103 03/26/17 01:39 111 91 80 03/26/17 01:16 37.1 121 20 108/68 (81) 96 BiPAP 100
[2017-03-26] MEDS: SODIUM CHLORIDE 0.9% 1000ML 1,000 ML IV SCH (12:38)
--- NOTE | 2017-03-26 18:30 | Progress Note ---
Medicine Progress Note Date & Time of Visit: Mar 26, 2017 at 18:20. Subjective Patient appears to have more difficulty breathing today, is visibly scared and worried and states he does not want to and is asking if [facility] or [facility] could help cure him. He is very tearful and not concerned about his breathing at all but more worried about the cancer and if anything can be done to cure it. His family was with him earlier in the day but not at the bedside presently. He has been requiring more oxygen today and has difficulty tolerating the high flow and thus PO intake has decreased. No overnight events noted. Objective Last 8 Hrs Date Time Temp Pulse Resp B/P (MAP) Pulse Ox O2 Delivery O2 Flow Rate FiO2 03/26/17 16:00 BiPAP 90 03/26/17 15:30 36.3 110 20 115/71 (86) 95 BiPAP 03/26/17 14:32 103 18 92 Nasal Cannula 55.0 100 03/26/17 11:16 36.1 114 20 94/75 (81) 97 BiPAP 114 03/26/17 11:09 108 98 80 03/26/17 11:08 108 18 98 BiPAP/CPAP 80 Physical Exam: GENERAL: Patient is in no acute distress. HEENT: No acute trauma, normocephalic, mucous membranes moist, no nasal congestion, no scleral icterus. Conjunctivae clear NECK: No stridor, trachea is midline. LUNGS: Mild expiratory wheeze B/L, diminished breath sounds, no rhonchi, breath sounds equal. HEART: Without murmurs, gallops, or rubs, regular rate and rhythm. Tachycardic ABDOMEN: Soft, nontender, bowel sounds positive, no hepatosplenomegaly EXTREMITIES: No cyanosis or edema, moving all 4 limbs without difficulty or pain ; LUE Edema from shoulder to hands NEUROLOGIC: Oriented x 3, no acute motor or sensory deficits, no focal weakness. SKIN: No rash, no jaundice, no diaphoresis. Laboratory Results: Last 24 Hours Test 03/25/17 19:09 03/25/17 21:08 03/25/17 23:48 03/26/17 00:30 Heparin-PF4 Antibody Screen NEG Bedside Glucose 92 mg/dl 262 mg/dl Vancomycin Level Trough 17.1 mcg/ml Test 03/26/17 06:02 03/26/17 07:05 03/26/17 11:15 03/26/17 17:12 Bedside Glucose 250 mg/dl 195 mg/dl 207 mg/dl White Blood Count 13.50 K/uL Red Blood Count 3.77 M/uL Hemoglobin 10.1 g/dL Hematocrit 33.2 % Mean Corpuscular Volume 88.1 fL Mean Corpuscular Hemoglobin 26.8 pg Mean Corpuscular Hemoglobin Concent 30.4 g/dl Platelet Count 139 K/uL Mean Platelet Volume 11.2 fL Neutrophils (%) (Auto) 91.1 % Lymphocytes (%) (Auto) 1.9 % Monocytes (%) (Auto) 5.8 % Eosinophils (%) (Auto) 0.1 % Basophils (%) (Auto) 0.1 % Neutrophils # (Auto) 12.31 K/uL Lymphocytes # (Auto) 0.26 K/uL Monocytes # (Auto) 0.78 K/uL Eosinophils # (Auto) 0.01 K/uL Basophils # (Auto) 0.01 K/uL RDW Standard Deviation 57.3 fL RDW Coefficient of Variation 17.7 % Immature Granulocyte % (Auto) 1.0 % Immature Granulocyte # (Auto) 0.13 K/uL Sodium Level 136 mmol/L Potassium Level 4.6 mmol/L Chloride Level 100 mmol/L Carbon Dioxide Level 32 mmol/L Anion Gap 4.0 mmol/L Blood Urea Nitrogen 20 mg/dl Creatinine 0.48 mg/dl Est Creatinine Clear Calc Drug Dose 251.8 ml/min Estimated GFR () 144.8 Estimated GFR (Non- 124.9 BUN/Creatinine Ratio 40.8 Random Glucose 187 mg/dl Calcium Level 8.9 mg/dl Assessment & Plan ACUTE ON CHRONIC HYPOXIC RESPIRATORY FAILURE: likely secondary to HCAP, COPD EXACERBATION, HISTORY OF LUNG CA, recent RADIATION PNEUMONITIS -follow cultures; last admission BAL grew meño -for now on empiric Vanc, Cefepime, Levaquin; can likely stop the vanco as MRSA screen negative -continued on IV solu-medrol, weaned to once daily but might be helpful to increase to BID to help with the wheezing -continued on Bipap, nebs; continues to desat quickly without the bipap -in ICU initially, but now in tele as patient is DNI/DNR -Herbarium Worker consulted, appreciate recs -discussed with the patients POA, [id number] and brother that the patient's chance for recovery is poor POSSIBLE SEPSIS: now resolved -lactic acid normal on repeat, but was elevated on admission POC lactic acid -was on IV fluids, now off, BP stable -continued on broad spectrum antibiotics 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, s/p chemo and radiation -Oncology discussed with the patient that he would likely no longer be a candidate for additional chemo given his current condition -Palliative care consulted; appreciate recommendations; patient signed POLST form last admission DNR/DNI which was confirmed by ICU staff after meeting with the family as the patient decided he would not want to have a trach/PEG and understands that an intubation at this point would almost certainly result in trach/PEG RECENT B/L PE AND NEW LUE DVT: -continue Lovenox BID; patient is injecting this himself into his thigh as he refuses subcutaneous injections into his abdomen and insists he takes them at home in his thigh -LUE doppler done due to new edema, + for DVT in the left IJ, left subclavian, left brachial, left basilic, and left axillary veins -Anti-Xa was 0.64 which falls in the therapeutic range -PF4 was checked due to worsening thrombocytopenia and new clots and was negative -discussed with Hem/onc and advised to continue Lovenox as presently taking DM TYPE II: -Pharmacy glycemic control consulted, appreciate recommendations -has poor oral intake due to difficulty breathing, even while on high flow -was very well controlled as of recent HbA1c from earlier this month -patient is very fixated on his insulin and management of diabetes and often forgets the prior discussions about how in the hospital he needs assistance and this is why glycemic pharmacy is managing ATRIAL FIBRILLATION: -on metoprolol and Lovenox already -appears in sinus tach presently CHRONIC BACK PAIN: -continued on methadone ANXIETY: -on IV ativan q 4 hours + valium BID -was initially on Precedex drip for anxiety and was changed to ativan and valium -Consulted Psych to assist with management of anxiety and depression, but patient does not want to try gabapentin and requests his medication doses be raised which is risky with his fragile respiratory state Continued [facility] stay due to: multiple IV medications needed, other Discharge planning: uncertain Current Inpatient Medications: Current Inpatient Medications Medications (Trade) Dose Ordered Sig/Prince Route Start Time Stop Time Status Last Admin Dose Admin Cefepime HCl (Consult) 1 ea DAILY PRN N/A 03/22/17 04:47 04/21/17 04:46 Miscellaneous Information (Consult Glycemic Management Pharmacy) 1 ea DAILY PRN N/A 03/22/17 03:53 04/21/17 03:52 Diazepam (Valium Tab) 2 mg BID PRN PO 03/22/17 02:00 04/21/17 01:59 03/26/17 10:22 2 MG Docusate Sodium (coLACE CAP) 100 mg BID PO 03/22/17 09:00 04/21/17 08:59 Magnesium Oxide (Mag-Ox Tab) 400 mg QAM PO 03/22/17 09:00 04/21/17 08:59 03/26/17 07:50 400 MG Metoprolol Succinate (Toprol Xl Tab) 12.5 mg QAM PO 03/22/17 09:00 04/21/17 08:59 03/26/17 07:51 12.5 MG Tramadol HCl (Ultram Tab) 50 mg Q6H PRN PO 03/22/17 02:00 04/21/17 01:59 03/26/17 13:25 50 MG Triamcinolone Acetonide (Nasacort Allergy 24hr) 2 sprays DAILY BJ 03/22/17 09:00 04/21/17 08:59 03/26/17 07:51 2 SPRAYS Levofloxacin (Consult) 1 ea UD PRN N/A 03/22/17 05:00 04/21/17 04:59 Vancomycin HCl (Consult) 1 ea UD PRN N/A 03/22/17 05:00 04/21/17 04:59 Ipratropium Orwell (Atrovent 0.02% 0.5MG/2.5ML Neb) 0.5 mg Q4R INH 03/22/17 08:00 04/21/17 07:59 03/26/17 14:32 0.5 MG Levalbuterol (Xopenex 1.25MG/ 0.5ML Neb) 1.25 mg Q4R INH 03/22/17 08:00 04/21/17 07:59 03/26/17 14:32 1.25 MG Cefepime HCl 2000 mg/Syringe 20 ml @ 5 mls/min Q8 IV 03/22/17 14:00 1/18 13:59 03/26/17 14:00 5 MLS/MIN Vancomycin HCl 2500 mg/Sodium Chloride 550 ml @ 200 mls/hr Q10H IV 03/22/17 07:00 03/29/17 06:59 03/26/17 10:23 200 MLS/HR Levofloxacin 750 mg/Prmx 150 ml @ 100 mls/hr Q24H IV 03/23/17 03:00 03/30/17 02:59 03/26/17 03:50 100 MLS/HR Famotidine (Pepcid Tab) 20 mg BID PO 03/23/17 09:00 04/22/17 08:59 03/26/17 07:50 20 MG Enoxaparin Sodium (Lovenox Inj) 80 mg Q12H SQ 03/23/17 06:00 04/22/17 05:59 03/26/17 06:12 80 MG Lorazepam (Ativan Inj) 1 mg Q4H PRN IV 03/22/17 19:15 04/21/17 19:14 03/26/17 17:29 1 MG Fentanyl Citrate (Fentanyl Inj) 50 mcg Q1HWA PRN IV 03/22/17 19:30 04/05/17 19:29 03/23/17 11:36 50 MCG Insulin Aspart (novoLOG ASPART) SLIDING SCALE ACHS SC 03/24/17 07:00 04/23/17 06:59 03/26/17 17:36 12 UNITS Insulin Glargine (Lantus Solostar Pen) SEE PROTOCOL Q12 SC 03/24/17 21:00 04/23/17 20:59 03/26/17 07:57 50 UNITS Sodium Chloride 1,000 ml @ 75 mls/hr [id number] IV 03/24/17 19:30 04/23/17 19:29 03/26/17 12:38 75 MLS/HR Methadone HCl (Dolophine Tab) 15 mg Q6H PO 03/25/17 22:00 04/08/17 21:59 03/26/17 17:29 15 MG Zolpidem Tartrate (Ambien Tab) 10 mg DAILY@2200 PO 03/25/17 22:00 04/24/17 21:59 03/25/17 21:57 10 MG Methylprednisolone Sodium Succinate 60 mg/Syringe 0.96 ml @ 1.5 mls/min DAILY@0600 IV 03/27/17 06:00 04/26/17 05:59
[2017-03-26] MEDS: ZOLPIDEM TARTRATE 10 MG TAB PO SCH (22:20)
[2017-03-27] VITALS (16 sets, daily range): BP systolic 109–125; BP diastolic 66–105; PULSE 97–114; TEMP 36.4–37.7; O2SAT 67–99
[2017-03-27] MEDS: LEVALBUTEROL 1.25MG/0.5ML NEB INH SCH ×6 (03:00→23:08)
[2017-03-27] MEDS: IPRATROPIUM BROMIDE NEB SOLN 0.02% 2.5 ML VIAL INH SCH ×6 (03:00→23:08)
[2017-03-27] MEDS: LORAZEPAM 2 MG/ML 1 ML VIAL IV PRN ×5 (03:07→21:07)
[2017-03-27] MEDS: LEVOFLOXACIN 750MG / D5W IV SCH (03:07)
[2017-03-27] MEDS: SODIUM CHLORIDE 0.9% 1000ML 1,000 ML IV SCH ×2 (03:07→14:10)
[2017-03-27] MEDS: METHADONE HCL 10 MG TAB PO SCH ×4 (03:47→21:06)
[2017-03-27] MEDS: ENOXAPARIN 80 MG/0.8 ML SYR SQ SCH ×2 (05:28→16:27)
[2017-03-27] MEDS: METHYLPREDNISOLONE IV 60 MG in SYRINGE 0 ML IV SCH (05:29)
[2017-03-27] MEDS: CEFEPIME IV 2,000 MG in SYRINGE 7.5 ML IV SCH ×3 (05:29→21:07)
[2017-03-27 06:35] LABS: MEAN CORPUSCULAR HGB CONC 30.4 g/dl (32-36)
[2017-03-27 06:54] LABS: HEMATOCRIT 34.2 % (42-52); HEMOGLOBIN 10.4 g/dL (14.0-18.0); MEAN CELL VOLUME 88.1 fL (80-100); MEAN CORPUSCULAR HEMOGLOBIN 26.8 pg (25-34); RED CELL DISTRIBUTION WIDTH CV 17.9 % (11.5-14.5); RED CELL DISTRIBUTION WIDTH SD 57.3 fL (36.4-46.3); WHITE BLOOD COUNT 11.21 K/uL (4.8-10.8)
[2017-03-27 07:00] LABS: MEAN PLATELET VOLUME 10.3 fL (7.4-10.4); PLATELET COUNT 118 K/uL (130-400)
[2017-03-27 07:01] LABS: BASO % 0.2 %; BASO ABS # 0.02 K/uL (0-0.2); EOS % 2.1 %; EOS ABS # 0.23 K/uL (0-0.5); IG# 0.22 K/uL (0.00-0.02); LYMPH ABS # 0.45 K/uL (1.2-3.4); MONO % 5.5 %; MONO ABS # 0.62 K/uL (0.11-0.59); NEUT % 86.2 %; NEUT ABS # 9.67 K/uL (1.4-6.5)
[2017-03-27 07:09] LABS: CALCIUM 8.9 mg/dl (8.5-10.1); CREATININE 0.58 mg/dl (0.60-1.40); POTASSIUM 3.9 mmol/L (3.5-5.1)
[2017-03-27] MEDS: FAMOTIDINE 20 MG TAB PO SCH ×2 (08:07→21:04)
[2017-03-27] MEDS: MAGNESIUM OXIDE 400 MG TAB PO SCH (08:07)
[2017-03-27] MEDS: TRIAMCINOLONE ACET NASAL SPRAY 10.8ML BTL NAE SCH (08:08)
[2017-03-27] MEDS: DOCUSATE SODIUM 100 MG CAP PO SCH ×2 (08:08→21:04)
[2017-03-27] MEDS: METOPROLOL SUCC 25MG EXT REL TAB PO SCH (08:09)
[2017-03-27] MEDS: VANCOMYCIN INJ 2,500 MG in SODIUM CHLORIDE 0.9% 500ML 500 ML IV SCH ×2 (08:12→16:27)
[2017-03-27] MEDS: INSULIN ASPART 100 UNITS/ML 3 ML PEN SC SCH ×4 (08:17→21:00)
[2017-03-27] MEDS: INSULIN GLARGINE SOLOSTAR 100 UNITS/ML 3 ML PEN SC SCH (08:19)
--- NOTE | 2017-03-27 09:08 | Pharmacy Progress Note ---
Glycemic Control Progress Note Date of Service Mar 27, 2017. Scope Glycemic Pharmacist consulted for glycemic control to write orders per [facility] inpatient glycemic control protocol. Objective Accuchecks BSG (last 24hrs): Test 03/26/17 11:15 03/26/17 17:12 03/26/17 20:08 03/27/17 05:45 Bedside Glucose 195 mg/dl (70-99) 207 mg/dl (70-99) 111 mg/dl (70-99) Random Glucose 125 mg/dl (70-99) Test 03/27/17 06:13 Bedside Glucose 134 mg/dl (70-99) HbA1c: 6.4% 01/31/17 Recent Pertinent Medications The patient is currently receiving: * Basal insulin: Lantus Q 12 hours: 0 units if BSG less than 120, 25 units if BSG 120-160, 50 units if BSG above 160 * Correctional Insulin: Novolog Correction per scale ACHS Goal Range: Low 110 mg/dL - High 140 mg/dL Correction Factor: 10 mg/dL/unit * Prandial insulin: Per carb ratio of 1 unit per 4 grams CHO consumed Outpatient Anti-Diabetic Meds Per Med Reconciliation: Humulin N 75 units w/ breakfast Humalog per sliding scale Novolin R 15 units w/ meals Assessment & Plan ASSESSMENT: 03/27/17 * BSGs have ranged 111-250 over the last 24 hours * He received 114 units of SQ insulin over the last 24 hrs (while tolerating a diet) * BSGs elevated yesterday AM, but explainable as patient had been snacking overnight. As the day progressed BSGs dropped to goal * Fasting AM BSG improved today. FBS 134 with 50 units Lantus on board. Will change Lantus order to 50 units SQ once daily in AM as this dose has performed well on prior hospitalization, plus once daily Solu-Medrol in the AM will coincide with Lantus administration. * The current CF and CR are reasonable as they performed well on prior admission. PLAN FOR INPATIENT GLYCEMIC CONTROL: * Changing Lantus to 50 units SQ Q AM * Continuing correction factor of 10 mg/dl/unit * Continuing carb ratio of 1 unit per 4 grams CHO consumed * Continuing goal range of Low 110 mg/dL - High 140 mg/dL * Reassess insulin dose with each step-down in steroid dose * Please note that the plan above was derived based on current level of insulin resistance and hospital stress. These recommendations are appropriate for inpatient admission only. Plan of care upon discharge will need to be reassessed to avoid potential outpatient hypo/hyperglycemia. Thank you.
[2017-03-27] MEDS: DIAZEPAM 2MG TAB PO PRN (10:47)
--- NOTE | 2017-03-27 15:37 | Pulmonary Consultation ---
History General Date of Service: Mar 27, 2017. Stated Complaint: Respiratory Failure HPI The patient is a 56 year old male who presents to [facility] with complaints of Respiratory Failure. The patient's primary care provider is Bran Osei. is a 56-year-old male with atrial fibrillation, diabetes type 2, stage IIIB small cell lung cancer of the left upper lobe status post radiation and chemotherapy. He was recently admitted for hypoxic respiratory failure likely secondary to radiation pneumonitis and bilateral pulmonary emboli in 01/31/2017 and again on 02/17/2017. His last admission was complicated by a hypoxic respiratory failure in which he was intubated due to possible hospital-acquired pneumonia with superimposed radiation pneumonitis. He was subsequently asked extubated and discharged after a prolonged hospital course she was discharged on 03/09/2017. He returned on 03/21/2017 with complaints of chills, productive cough of yellowish sputum, worsening shortness of breath and left upper extremity edema and swelling. Upon arrival to the ER his temperature was 37.5, pulse 137, respiratory rate 30 , blood pressure 113/84 saturating 85% on 15 L/m nonrebreather mask. He was subsequently placed on BiPAP and able to tolerate. Chest x-ray showed cardiomegaly with mild pulmonary vascular congestion. Airspace consolidation seen in left midlung with new patchy airspace consolidation in the right lung. He was admitted to the ICU for acute on chronic hypoxic respiratory failure secondary to hospital-acquired pneumonia and progression of small cell lung cancer. He was started on he was started on vancomycin, cefepime and Levaquin to cover for hospital-acquired pneumonia. Blood cultures 03/21/2017 showed no growth to date. Sputum cultures from 03/22/2017 were contaminated. Left upper ultrasound done on 03/24/2017 extremity shows extensive DVT of central veins in the left upper extremity including the left internal jugular vein. He continues on full dose Lovenox. Goals of care discussed with palliative care, patient made DO NOT RESUSCITATE and DO NOT INTUBATE. He was transferred out of ICU on 03/24/2017. I was called to see patient for hypoxia by primary team. At the time of my evaluation, patient tachycardic to 130s and appeared diaphoretic. Patient remains quite hypoxic on BiPAP 80%. He is requesting that I find a medication to cure his cancer as he knows that there is one out there. He is requesting that we do not give up on him. He denies any pain. He is lethargic, answers questions appropriately but falls asleep intermittently during history and physical. His father was at bedside, all questions addressed. Historian: patient Onset: last week Severity: moderate Complaint Status: persistent Review of Systems Constitutional: reports: as stated in HPI Eyes: reports: as stated in HPI ENT: reports: as stated in HPI Cardiovascular: reports: as stated in HPI Respiratory: reports: as stated in HPI Gastrointestinal: reports: as stated in HPI Genitourinary - Male: reports: as stated in HPI Musculoskeletal: reports: as stated in HPI Integumentary: reports: as stated in HPI Neurologic: reports: as stated in HPI Psychiatric: reports: as stated in HPI Endocrine: as stated in HPI Hematologic / Lymphatic: as stated in HPI All Other Symptoms All Other Systems: Reviewed and Negative Past Medical History Past Medical History: Stage III B Small cell carcinoma s/p radiation and chemotherapy Radiation pneumonitis Pneumonia Vent dependent respiratory failure Insulin-dependent diabetes Spinal stenosis Chronic back pain on methadone and tramadol Past Surgical History: Multiple back surgeries for spinal stenosis Hernia repair 4 Right knee arthroplasty Dental surgery Family History Diabetes mellitus He denies any family history of lung problems. Social History He is at about [id number] history of smoking, he quit in August 2016. Denies alcohol or illicit drug use. 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 Hx Tobacco Use In Past Year?: Yes Smoking Status: Former Smoker Marital status: single Occupational Status: unemployed History of MDRO History of MDRO: No Allergies Coded Allergies: Amoxicillin (Verified Allergy, Intermediate, sob, 03/21/17) PER CONVERSATION WITH ANSELMO AQUINO PA-C - SHE SPOKE WITH PATIENT WHO STATES THAT THIS IS NOT A TRUE ALLERGY HE HAS TOLERATED PENCILLINS IN THE PAST. TOLERATES ROCEPHIN X 5 DOSES AN OUTPATIENT. Atorvastatin (Verified Allergy, Intermediate, diarrhea, 03/21/17) Acetaminophen (Verified Allergy, Unknown, PT STATES "IT INTENSIFIES EFFECT ", 03/21/17) Clindamycin (Verified Allergy, Unknown, SHORTNESS OF BREATH, 03/21/17) Escitalopram (Verified Allergy, Unknown, GI UPSET, 03/21/17) Gabapentin (Verified Allergy, Unknown, CONSTIPATION, 03/21/17) Insulin Aspart (Verified Allergy, Unknown, ALLERGIC TO PRESERVATIVES IN NOVOLOG - OK WITH REGULAR/NPH, 03/21/17) Morphine (Verified Allergy, Unknown, DID NOT TOLERATE PER PT, 03/21/17) Propoxyphene (Verified Allergy, Unknown, "DID CRAZY THINGS", 03/21/17) Sitagliptin (Verified Allergy, Unknown, UNKNOWN RXN, 03/21/17) Adhesives (Verified Adverse Reaction, Unknown, "rips his skin off", ) Dextromethorphan (Verified Adverse Reaction, Unknown, HARD TO BREATHE?, ) Guaifenesin (Verified Adverse Reaction, Unknown, HARD TO BREATHE?, ) Metformin (Verified Adverse Reaction, Unknown, PT STATES "DID NOT WORK", 03/21/17) Current Medications Reported Home Medications Medications Dose Route/Sig Max Daily Dose Days Date Category Dose Instructions Nasacort Allergy 24Hr (Triamcinolone Acetonide (Nasal) 55 Mcg/Act Spr 2 Sprays BJ DAILY 03/21/17 Reported Levaquin (Levofloxacin) 750 Mg Tab 750 Mg PO DAILY 7 03/21/17 Reported Humulin N (Insulin Human NPH) 100 Units/Ml Susp 75 Units SQ QAM 03/21/17 Reported Humulin N (Insulin Human NPH) 100 Units/Ml Susp 55 Units SQ QPM 03/21/17 Reported Humalog (Insulin Lispro (Human)) 100 Unit/Ml Inj 20 Units SQ QID 03/21/17 Reported SLIDING SCALE: 150-180=2 UNITS 181-210=4 UNITS 211-240=6 UNITS 241-270=8 UNITS 271-300=10 UNITS 301-330=12 UNITS 331-360=14 UNITS 361-390=16 UNITS 391-420=18 UNITS 421+=20 UNITS Duoneb (Ipratropium-Albuterol) 3 Ml Nebu 1 Treatment INH Q2H PRN 03/21/17 Reported Voltaren (Diclofenac Sod) 100 Appln/100 Gm Gel 1 Appln EXT TID 30 03/09/17 Rx Novolin R U-100 (Insulin Regular (Human)) 100 Unit/Ml Inj 15 Units SC TID 30 03/09/17 Rx Three times daily before meals Magnesium-Oxide (Magnesium Oxide) 400 Mg Tab 400 Mg PO QAM 30 03/09/17 Rx Methadone HCl 10 Mg Tab 15 Mg PO Q6 7 03/09/17 Rx Nitrostat (Nitroglycerin) 0.4 Mg/1 Tab Subl 0.4 Mg SL PRN PRN 30 03/09/17 Rx Metoprolol Succinate ER (Metoprolol Succinate) 25 Mg Tabcr 12.5 Mg PO QAM 30 03/09/17 Rx Lovenox (Enoxaparin Sodium) 80 Mg/0.8 Ml Inj 80 Mg SQ Q12H 30 03/09/17 Rx Valium (Diazepam) 2 Mg Tab 2 Mg PO BID PRN 10 03/09/17 Rx Ultram (Tramadol HCl) 50 Mg Tab 50 Mg PO Q6H PRN 10 03/09/17 Rx Senokot S (Sennosides-Docusate Sodium) 1 Tab Tab 1 Tab PO QDL PRN 02/17/17 Reported Fleet Enema (Sodium Phosphate/Biphosphate) Lacey 1 Ea [place] DAILY PRN 02/17/17 Reported Bisacodyl 10 Mg Sup 10 Mg RE DAILY PRN 02/17/17 Reported Milk of Magnesia (Magnesium Hydroxide) 30 Ml Susp 30 Ml PO DAILY PRN 02/17/17 Reported Docusate Sodium 100 Mg Cap 100 Mg PO BID 7 02/17/17 Reported Levalbuterol (Levalbuterol Hcl) 1.25 Mg/0.5 Ml Neb 1 Amp INH Q6H 02/17/17 Reported Hair/Skin/Nails 1250-7.5-7.5 Mcg-mg-Unt (Biotin W/ Vitamins C & E) 1 Chw Chw 1 Tab PO DAILY 02/17/17 Reported Miralax (Polyethylene Glycol 3350) 1 Pow Pow 17 Gm PO QDL PRN 02/17/17 Reported Zofran (Ondansetron HCl) 8 Mg Tab 8 Mg PO Q8 PRN 01/19/17 Reported Vitamin D (Cholecalciferol) 5,000 Unit Tab 5,000 Units PO DAILY 01/19/17 Reported Aspirin Ec (Aspirin) 325 Mg Tab 325 Mg PO QAM 10/10/16 Reported E-400 (Vitamin E) 400 Unit Cap 400 Mg PO TIDM 09/29/16 Reported Ambien (Zolpidem Tartrate) 10 Mg Tab 10 Mg PO HS 09/29/16 Reported Physical Physical Exam Vital Signs: Date Time Temp Pulse Resp B/P (MAP) Pulse Ox O2 Delivery O2 Flow Rate FiO2 03/27/17 10:57 99 24 98 BiPAP/CPAP 80 03/27/17 10:57 99 98 80 03/27/17 08:31 36.6 109 22 118/83 (95) 92 High Flow Oxygen 03/27/17 07:27 105 26 94 BiPAP/CPAP 80 03/27/17 07:27 105 94 80 03/27/17 04:25 37.2 108 16 109/70 (83) 96 BiPAP 100 03/27/17 04:00 BiPAP 03/27/17 03:01 111 95 80 03/27/17 03:00 112 18 95 BiPAP/CPAP 80 03/27/17 00:38 37.2 108 22 125/105 (112) 96 BiPAP 100 03/27/17 00:00 BiPAP 03/26/17 20:00 BiPAP 03/26/17 19:55 36.8 114 22 128/82 (97) 90 BiPAP 03/26/17 18:47 108 95 80 03/26/17 18:38 111 18 92 Nasal Cannula 55.0 100 03/26/17 16:00 BiPAP 90 03/26/17 15:30 36.3 110 20 115/71 (86) 95 BiPAP 03/26/17 14:32 103 18 92 Nasal Cannula 55.0 100 General Appearance: Appears to be in respiratory distress, tachypneic, on BIPAP Head: NORMOCEPHALIC, ATRAUMATIC Eyes: PERRLA, NO DISCHARGE, EOMI, SCLERAE NORMAL ENT: NORMAL NASAL EXAM, NORMAL MOUTH EXAM, other (dental caries of left molars) Neck: NORMAL RANGE OF MOTION, NO TENDERNESS, TRACHEA MIDLINE, NO STRIDOR, Respiratory: Coarse breath sound bilaterally, tachypneic Cardiovasular: Tachycardic, NORMAL S1S2, NO M/G/R Abdomen: NON TENDER, NORMAL BOWEL SOUNDS, other (obese) Genitourinary - Male: EXTERNAL GENITALIA NORMAL Back: NORMAL INSPECTION Upper Extremities: LUE edematous, NO DEFORMITY, NORMAL ROM, other (no cyanosis no clubbing) Lower Extremities: NO EDEMA, NO DEFORMITY, NORMAL ROM Pulses: dorsalis pedis (R) (2+), dorsalis pedis (L) (2+) Neuro: Lethargic, ORIENTED x 3, NORMAL MOTOR EXAM, NORMAL SENSATION, NORMAL SPEECH, NORMAL MEMORY Psychiatric: Anxious, NO SUICIDAL IDEATION, CONTRACTS FOR SAFETY Diagnostics Labs Results Past 24 Hours Test 03/26/17 17:12 03/26/17 20:08 03/27/17 05:45 03/27/17 06:13 Range/Units Bedside Glucose 207 111 134 70-99 mg/dl White Blood Count 11.21 4.8-10.8 K/uL Red Blood Count 3.88 4.7-6.1 M/uL Hemoglobin 10.4 14.0-18.0 g/dL Hematocrit 34.2 42-52 % Mean Corpuscular Volume 88.1 80-100 fL Mean Corpuscular Hemoglobin 26.8 25-34 pg Mean Corpuscular Hemoglobin Concent 30.4 32-36 g/dl Platelet Count 118 130-400 K/uL Mean Platelet Volume 10.3 7.4-10.4 fL Neutrophils (%) (Auto) 86.2 % Lymphocytes (%) (Auto) 4.0 % Monocytes (%) (Auto) 5.5 % Eosinophils (%) (Auto) 2.1 % Basophils (%) (Auto) 0.2 % Neutrophils # (Auto) 9.67 1.4-6.5 K/uL Lymphocytes # (Auto) 0.45 1.2-3.4 K/uL Monocytes # (Auto) 0.62 0.11-0.59 K/uL Eosinophils # (Auto) 0.23 0-0.5 K/uL Basophils # (Auto) 0.02 0-0.2 K/uL RDW Standard Deviation 57.3 36.4-46.3 fL RDW Coefficient of Variation 17.9 11.5-14.5 % Immature Granulocyte % (Auto) 2.0 % Immature Granulocyte # (Auto) 0.22 0.00-0.02 K/uL Platelet Estimate DECREASED Polychromasia 1+ Hypochromasia PRESENT Sodium Level 135 136-145 mmol/L Potassium Level 3.9 3.5-5.1 mmol/L Chloride Level 98 98-107 mmol/L Carbon Dioxide Level 34 21-32 mmol/L Anion Gap 3.0 3-11 mmol/L Blood Urea Nitrogen 20 7-18 mg/dl Creatinine 0.58 0.60-1.40 mg/dl Est Creatinine Clear Calc Drug Dose 208.4 ml/min Estimated GFR () 134.0 Estimated GFR (Non- 115.6 BUN/Creatinine Ratio 34.6 10-20 Random Glucose 125 70-99 mg/dl Calcium Level 8.9 8.5-10.1 mg/dl Diagnostic Radiology L VENOUS DOPPLER UPR EXT UNIL 03/24/2017 CLINICAL HISTORY: 56 years-old Male presenting with Arm edema, previous blood clot, ?new DVT. TECHNIQUE: Real-time grayscale and color and spectral Doppler ultrasound imaging of the veins of the left upper extremity was performed. Compression and augmentation were also utilized. COMPARISON: 12/18/2016. FINDINGS: Left: Internal jugular vein: Occlusive or nearly occlusive thrombus. Subclavian vein: Occlusive or nearly occlusive thrombus. Axillary vein: Occlusive thrombus. Basilic vein: Thrombus. Brachial vein: Thrombus within one of the 2 duplicated brachial veins. Cephalic vein: Patent. Radial vein: Patent. Ulnar vein: Patent. Other: Subcutaneous edema. IMPRESSION: Extensive deep venous thrombosis of central veins in the left upper extremity, including the left internal jugular vein. CHEST ONE VIEW PORTABLE 03/23/2017 HISTORY: Pneumonia. Follow-up. COMPARISON: Chest 03/21/2017. FINDINGS: The heart remains mildly enlarged. Bilateral airspace opacities, left greater than right persist. Small bilateral pleural effusions. Left midlung zone lucency persists and favors a cyst when compared to the prior studies. There is also left apical air-fluid level which could represent a cavitary focus. This is also unchanged. IMPRESSION: No change compared to the prior study. Bilateral airspace opacities consistent with a pneumonia persist. Left apical air-fluid level could be due to an apical bulla or possibly a cavitary focus. SINGLE VIEW CHEST 03/21/2017 CLINICAL HISTORY: Generalized weakness. Dyspnea. FINDINGS: 2 AP, portable, upright chest radiographs are compared to chest x-ray and chest CT dated 03/05/2017 and correlated with chest CT dated 02/24/2017. The examination is severely degraded by portable technique and patient rotation. The heart is enlarged and there is pulmonary vascular congestion. There is volume loss seen throughout the left lung. Dense airspace consolidation is seen in the left midlung with air bronchograms. A lucency within the left midlung consolidation likely represents a cyst when correlated with a prior chest CT. Patchy airspace consolidation is seen throughout the right lung. Small pleural effusions are suspected. The bony thorax is grossly intact. IMPRESSION: 1. Cardiomegaly with mild pulmonary vascular congestion. 2. There is dense airspace consolidation again seen in the left midlung. 3. Patchy airspace consolidation is also identified throughout the right lung. This could represent pneumonia versus interstitial edema. Clinical correlation will be required. 4. Small pleural effusions are suspected. EKG EKG--sinus tachycardia 140 BPM, nonspecific ST abnormality. Impression Assessment and Plan Acute on chronic hypoxic respiratory failure Small cell lung cancer Radiation pneumonitis HCAP Extensive DVT of LUE Recent PE Mr. Carcamo has acute on chronic hypoxic respiratory failure which is multifactorial in nature. 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 I discussed with him at length about his goals of care this morning and explained that we are doing all that we can to help him at this time, but he is requiring increase amounts of supplemental oxygen and noninvasive ventilatory support. I explained that we would continue with antibiotics to treat empirically for pneumonia, corticosteroids, nebulizers and lovenox for DVT/PE. He again expressed that he does not want to be resuscitated if his heart should stop or place on mechanical ventilation for worsening respiratory failure. From a respiratory standpoint, I do not have much else to offer. Continue with current management. Palliative care and Heme/Onc on board and following. His overall is prognosis is poor. I appreciate the consult. Please contact me if you have any other questions or concerns.
--- NOTE | 2017-03-27 18:06 | Hematology/Oncology Prog Note ---
Hematology/Onc Progress Note Date of Service Mar 27, 2017. Subjective I saw him at bedside, his brother was also at bedside, reviewed his medical records, he sitting quite comfortably, he is on high flow oxygen between 70-100% , O2 saturation is quite good around 95-96%, otherwise hemodynamically he has remained stable, no new nausea or vomiting, has persistent left upper extremity edema but he denies any local discomfort, he is on Lovenox therapy, no new bleeding complications, no fever, he is receiving broad-spectrum antibiotic coverage, also on IV Solu-Medrol, blood sugar fluctuates significantly from over 400 to 150. I reviewed his blood workup done on 03/27/2017, WBC is on the higher side around 11,000, stable hemoglobin around 10.4, platelet count dropped down to around 118 ,000. - BUN/creatinine: 20/0.5, calcium 8.9. Blood and urine culture has remained negative. He did not have any specific questions for me today. Will continue with the current medical management and will see how he does. Because of his overall clinical condition, I'm not planning for any kind of specific treatment for underlying small-cell lung cancer. Overall prognosis remains poor. Vital Signs Vital Signs Past 12 Hours Date Time Temp Pulse Resp B/P (MAP) Pulse Ox O2 Delivery O2 Flow Rate FiO2 03/27/17 15:33 98 22 95 Nasal Cannula 6.0 100 03/27/17 15:24 36.4 97 22 114/69 (84) 96 High Flow Oxygen 03/27/17 12:38 BiPAP 70 03/27/17 12:29 37.7 102 22 110/66 (81) 98 BiPAP 03/27/17 10:57 99 24 98 BiPAP/CPAP 80 03/27/17 10:57 99 98 80 03/27/17 08:31 36.6 109 22 118/83 (95) 92 High Flow Oxygen 03/27/17 08:00 High Flow Oxygen 60.0 100 Humidified Oxygen 03/27/17 07:27 105 26 94 BiPAP/CPAP 80 03/27/17 07:27 105 94 80
--- NOTE | 2017-03-27 19:51 | Progress Note ---
Medicine Progress Note Date & Time of Visit: Mar 27, 2017 at 19:46. Subjective Pt was seen and examined Lying in bed with respiratory distress Pt desaturates when he trying to talk with bipap off Pt still believes there is a cure out there for his cancer denies any new symptoms Objective Last 8 Hrs Date Time Temp Pulse Resp B/P (MAP) Pulse Ox O2 Delivery O2 Flow Rate FiO2 03/27/17 16:00 95 High Flow Oxygen 55.0 100 03/27/17 15:33 98 22 95 Nasal Cannula 6.0 100 03/27/17 15:24 36.4 97 22 114/69 (84) 96 High Flow Oxygen 03/27/17 12:38 BiPAP 70 03/27/17 12:29 37.7 102 22 110/66 (81) 98 BiPAP Physical Exam: Head- atraumatic Eyes- PERRL, EOMI ENT- oropharynx clear Neck- supple, no JVD Lungs- Coarse BS Heart- regular rhythm; no murmur Abdomen- normal bowel sounds, soft Extremities- no calf tenderness Neuro- alert, oriented x 3 Skin- warm & dry Laboratory Results: Last 24 Hours Test 03/26/17 20:08 03/27/17 05:45 03/27/17 06:13 03/27/17 10:58 Bedside Glucose 111 mg/dl 134 mg/dl 477 mg/dl White Blood Count 11.21 K/uL Red Blood Count 3.88 M/uL Hemoglobin 10.4 g/dL Hematocrit 34.2 % Mean Corpuscular Volume 88.1 fL Mean Corpuscular Hemoglobin 26.8 pg Mean Corpuscular Hemoglobin Concent 30.4 g/dl Platelet Count 118 K/uL Mean Platelet Volume 10.3 fL Neutrophils (%) (Auto) 86.2 % Lymphocytes (%) (Auto) 4.0 % Monocytes (%) (Auto) 5.5 % Eosinophils (%) (Auto) 2.1 % Basophils (%) (Auto) 0.2 % Neutrophils # (Auto) 9.67 K/uL Lymphocytes # (Auto) 0.45 K/uL Monocytes # (Auto) 0.62 K/uL Eosinophils # (Auto) 0.23 K/uL Basophils # (Auto) 0.02 K/uL RDW Standard Deviation 57.3 fL RDW Coefficient of Variation 17.9 % Immature Granulocyte % (Auto) 2.0 % Immature Granulocyte # (Auto) 0.22 K/uL Platelet Estimate DECREASED Polychromasia 1+ Hypochromasia PRESENT Sodium Level 135 mmol/L Potassium Level 3.9 mmol/L Chloride Level 98 mmol/L Carbon Dioxide Level 34 mmol/L Anion Gap 3.0 mmol/L Blood Urea Nitrogen 20 mg/dl Creatinine 0.58 mg/dl Est Creatinine Clear Calc Drug Dose 208.4 ml/min Estimated GFR () 134.0 Estimated GFR (Non- 115.6 BUN/Creatinine Ratio 34.6 Random Glucose 125 mg/dl Calcium Level 8.9 mg/dl Test 03/27/17 11:00 03/27/17 16:12 Bedside Glucose 332 mg/dl 167 mg/dl Assessment & Plan ACUTE ON CHRONIC HYPOXIC RESPIRATORY FAILURE: likely secondary to HCAP, COPD EXACERBATION, HISTORY OF LUNG CA, recent RADIATION PNEUMONITIS -follow cultures; last admission BAL grew meño -for now on empiric Vanc, Cefepime, Levaquin; can likely stop the vanco as MRSA screen negative -continued on IV solu-medrol, weaned to once daily but might be helpful to increase to BID to help with the wheezing -continued on Bipap, nebs; continues to desat quickly without the bipap -in ICU initially, but now in tele as patient is DNI/DNR -[employer] Worker consulted, appreciate recs -discussed with the patients POA, [id number] and brother that the patient's chance for recovery is poor POSSIBLE SEPSIS: now resolved -lactic acid normal on repeat, but was elevated on admission POC lactic acid -was on IV fluids, now off, BP stable -continued on broad spectrum antibiotics 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, s/p chemo and radiation -Oncology discussed with the patient that he would likely no longer be a candidate for additional chemo given his current condition -Palliative care consulted; appreciate recommendations; patient signed POLST form last admission DNR/DNI which was confirmed by ICU staff after meeting with the family as the patient decided he would not want to have a trach/PEG and understands that an intubation at this point would almost certainly result in trach/PEG RECENT B/L PE AND NEW LUE DVT: -continue Lovenox BID; patient is injecting this himself into his thigh as he refuses subcutaneous injections into his abdomen and insists he takes them at home in his thigh -LUE doppler done due to new edema, + for DVT in the left IJ, left subclavian, left brachial, left basilic, and left axillary veins -Anti-Xa was 0.64 which falls in the therapeutic range -PF4 was checked due to worsening thrombocytopenia and new clots and was negative -discussed with Hem/onc and advised to continue Lovenox as presently taking DM TYPE II: -Pharmacy glycemic control consulted, appreciate recommendations -has poor oral intake due to difficulty breathing, even while on high flow -was very well controlled as of recent HbA1c from earlier this month -patient is very fixated on his insulin and management of diabetes and often forgets the prior discussions about how in the hospital he needs assistance and this is why glycemic pharmacy is managing ATRIAL FIBRILLATION: -on metoprolol and Lovenox already -appears in sinus tach presently CHRONIC BACK PAIN: -continued on methadone ANXIETY: -on IV ativan q 4 hours + valium BID -was initially on Precedex drip for anxiety and was changed to ativan and valium -Consulted Psych to assist with management of anxiety and depression, but patient does not want to try gabapentin and requests his medication doses be raised which is risky with his fragile respiratory state Continued [facility] stay due to: multiple IV medications needed, other Discharge planning: uncertain Current Inpatient Medications: Current Inpatient Medications Medications (Trade) Dose Ordered Sig/Prince Route Start Time Stop Time Status Last Admin Dose Admin Cefepime HCl (Consult) 1 ea DAILY PRN N/A 03/22/17 04:47 04/21/17 04:46 Miscellaneous Information (Consult Glycemic Management Pharmacy) 1 ea DAILY PRN N/A 03/22/17 03:53 04/21/17 03:52 Diazepam (Valium Tab) 2 mg BID PRN PO 03/22/17 02:00 04/21/17 01:59 03/27/17 10:47 2 MG Docusate Sodium (coLACE CAP) 100 mg BID PO 03/22/17 09:00 04/21/17 08:59 Magnesium Oxide (Mag-Ox Tab) 400 mg QAM PO 03/22/17 09:00 04/21/17 08:59 03/27/17 08:07 400 MG Metoprolol Succinate (Toprol Xl Tab) 12.5 mg QAM PO 03/22/17 09:00 04/21/17 08:59 03/27/17 08:09 12.5 MG Tramadol HCl (Ultram Tab) 50 mg Q6H PRN PO 03/22/17 02:00 04/21/17 01:59 03/26/17 22:20 50 MG Triamcinolone Acetonide (Nasacort Allergy 24hr) 2 sprays DAILY BJ 03/22/17 09:00 04/21/17 08:59 03/27/17 08:08 2 SPRAYS Levofloxacin (Consult) 1 ea UD PRN N/A 03/22/17 05:00 04/21/17 04:59 Vancomycin HCl (Consult) 1 ea UD PRN N/A 03/22/17 05:00 04/21/17 04:59 Ipratropium [place] (Atrovent 0.02% 0.5MG/2.5ML Neb) 0.5 mg Q4R INH 03/22/17 08:00 04/21/17 07:59 03/27/17 15:33 0.5 MG Levalbuterol (Xopenex 1.25MG/ 0.5ML Neb) 1.25 mg Q4R INH 03/22/17 08:00 04/21/17 07:59 03/27/17 15:33 1.25 MG Cefepime HCl 2000 mg/Syringe 20 ml @ 5 mls/min Q8 IV 03/22/17 14:00 03/29/17 13:59 03/27/17 14:34 5 MLS/MIN Vancomycin HCl 2500 mg/Sodium Chloride 550 ml @ 200 mls/hr Q10H IV 03/22/17 07:00 03/29/17 06:59 03/27/17 16:27 200 MLS/HR Levofloxacin 750 mg/Prmx 150 ml @ 100 mls/hr Q24H IV 03/23/17 03:00 03/30/17 02:59 03/27/17 03:07 100 MLS/HR Famotidine (Pepcid Tab) 20 mg BID PO 03/23/17 09:00 04/22/17 08:59 03/27/17 08:07 20 MG Enoxaparin Sodium (Lovenox Inj) 80 mg Q12H SQ 03/23/17 06:00 04/22/17 05:59 03/27/17 16:27 80 MG Lorazepam (Ativan Inj) 1 mg Q4H PRN IV 03/22/17 19:15 04/21/17 19:14 03/27/17 16:46 1 MG Fentanyl Citrate (Fentanyl Inj) 50 mcg Q1HWA PRN IV 03/22/17 19:30 04/05/17 19:29 03/23/17 11:36 50 MCG Insulin Aspart (novoLOG ASPART) SLIDING SCALE ACHS SC 03/24/17 07:00 04/23/17 06:59 03/27/17 16:33 4 UNITS Sodium Chloride 1,000 ml @ 75 mls/hr [id number] IV 03/24/17 19:30 04/23/17 19:29 03/27/17 03:07 75 MLS/HR Methadone HCl (Dolophine Tab) 15 mg Q6H PO 03/25/17 22:00 04/08/17 21:59 03/27/17 16:26 15 MG Zolpidem Tartrate (Ambien Tab) 10 mg DAILY@2200 PO 03/25/17 22:00 04/24/17 21:59 03/26/17 22:20 10 MG Methylprednisolone Sodium Succinate 60 mg/Syringe 0.96 ml @ 1.5 mls/min DAILY@0600 IV 03/27/17 06:00 04/26/17 05:59 03/27/17 05:29 1.5 MLS/MIN Insulin Glargine (Lantus Solostar Pen) 50 units QAM SC 03/28/17 09:00 04/27/17 08:59
[2017-03-27] MEDS: ZOLPIDEM TARTRATE 10 MG TAB PO SCH (21:19)
[2017-03-28] VITALS (20 sets, daily range): BP systolic 108–138; BP diastolic 69–95; PULSE 97–118; TEMP 36.7–37.5; O2SAT 80–97; BMI 34.6
[2017-03-28] MEDS: LEVALBUTEROL 1.25MG/0.5ML NEB INH SCH ×6 (03:12→23:40)
[2017-03-28] MEDS: IPRATROPIUM BROMIDE NEB SOLN 0.02% 2.5 ML VIAL INH SCH ×6 (03:12→23:40)
[2017-03-28] MEDS: SODIUM CHLORIDE 0.9% 1000ML 1,000 ML IV SCH ×2 (03:41→18:07)
[2017-03-28] MEDS: LEVOFLOXACIN 750MG / D5W IV SCH (03:48)
[2017-03-28] MEDS: VANCOMYCIN INJ 2,500 MG in SODIUM CHLORIDE 0.9% 500ML 500 ML IV SCH ×2 (03:49→11:36)
[2017-03-28] MEDS: METHADONE HCL 10 MG TAB PO SCH ×4 (04:56→22:23)
[2017-03-28] MEDS: CEFEPIME IV 2,000 MG in SYRINGE 7.5 ML IV SCH ×3 (06:04→22:23)
[2017-03-28] MEDS: METHYLPREDNISOLONE IV 60 MG in SYRINGE 0 ML IV SCH (06:04)
[2017-03-28] MEDS: ENOXAPARIN 80 MG/0.8 ML SYR SQ SCH ×2 (06:05→18:00)
[2017-03-28] MEDS: LORAZEPAM 2 MG/ML 1 ML VIAL IV PRN ×3 (06:47→16:06)
[2017-03-28 06:50] LABS: HEMATOCRIT 33.5 % (42-52); HEMOGLOBIN 10.2 g/dL (14.0-18.0); MEAN CELL VOLUME 88.2 fL (80-100); MEAN CORPUSCULAR HEMOGLOBIN 26.8 pg (25-34); MEAN CORPUSCULAR HGB CONC 30.4 g/dl (32-36); MEAN PLATELET VOLUME 11.4 fL (7.4-10.4); PLATELET COUNT 126 K/uL (130-400); RED CELL DISTRIBUTION WIDTH CV 17.5 % (11.5-14.5); WHITE BLOOD COUNT 12.22 K/uL (4.8-10.8)
[2017-03-28 07:26] LABS: CALCIUM 8.9 mg/dl (8.5-10.1); CREATININE 0.47 mg/dl (0.60-1.40); POTASSIUM 3.9 mmol/L (3.5-5.1)
[2017-03-28] MEDS: FAMOTIDINE 20 MG TAB PO SCH ×2 (07:48→22:27)
[2017-03-28] MEDS: METOPROLOL SUCC 25MG EXT REL TAB PO SCH (07:48)
[2017-03-28] MEDS: TRIAMCINOLONE ACET NASAL SPRAY 10.8ML BTL NAE SCH (07:49)
[2017-03-28] MEDS: MAGNESIUM OXIDE 400 MG TAB PO SCH (07:49)
[2017-03-28] MEDS: INSULIN ASPART 100 UNITS/ML 3 ML PEN SC SCH ×4 (07:56→22:29)
[2017-03-28] MEDS: INSULIN GLARGINE SOLOSTAR 100 UNITS/ML 3 ML PEN SC SCH (08:01)
[2017-03-28] MEDS: DOCUSATE SODIUM 100 MG CAP PO SCH ×2 (08:02→22:27)
[2017-03-28] MEDS: DIAZEPAM 2MG TAB PO PRN ×2 (08:12→22:32)
[2017-03-28] MEDS ORDERED: NURSING VERBAL MED ORDER ONE (11:00)
--- NOTE | 2017-03-28 13:08 | Pharmacy Progress Note ---
Pharmacy Glycemic Short Note 2 Date of Service Mar 28, 2017. OUTPATIENT ANTIDIABETIC REGIMEN: * Humulin N 75 units AM * Humalog SS * Novolin R 15 TIDM ASSESSMENT: * Patient is currently receiving an average of 104 units of insulin per day * 50 units of basal insulin * 54 units of prandial/correctional insulin * BSGs ranging 118-332 over the past 24hrs * Steroids continue at same dose; Methylprednisolone 60mg IV daily * Fasting BG at goal on Lantus 50 units qAM. * Pre-lunch BG continues to be highest value (332 mg/dL yesterday and 306 mg/dL today). Discussed with nursing. Patient has family visiting between breakfast/ lunch hours and brings him a lot of snacks. She noted he had 4 bottles of Gatorade yesterday, today he has Pepsi, candy, etc. Nursing reports patient actively dying per his physician. Therefore, will not change bolus insulin dose as anticipate BG should correct. PLAN FOR INPATIENT GLYCEMIC CONTROL: * Basal insulin * Continue Lantus 50 units qAM * Bolus insulin * Continue same NovoLog per scale ACHS or Q6hrs while NPO * Goal Range: Low 110 mg/dL - High 140 mg/dL * Correction Factor: 9 mg/dL/unit * Prandial insulin per carb ratio of 1 unit per 3 grams CHO consumed
--- NOTE | 2017-03-28 16:31 | Palliative Care Progress Note ---
Palliative Care Progress Note Date of Service Mar 28, 2017. Subjective Pt evaluation today including: conversation w/ patient, physical exam, chart review, conversation w/ travel service consultant (Dr. Goodwin) -Patient is now in PCU. Remains on bipap alternating with high-flow nasal cannula. -Had another discussion with patient with Dr. Goodwin present. -Patient c/o anxiety more than pain at this point. Review of Systems Constitutional: + weakness, No fever, No chills ENT: No trouble swallowing Respiratory: + cough, + sputum (large green ball of sputum yesterday), + dyspnea on exertion, No dyspnea at rest Cardiac: No chest pain, No edema Abdomen: No pain, No nausea, No vomiting Male : No problem reported Psychiatric: + depression symptoms, + anxiety Objective Vital Signs Date Time Temp Pulse Resp B/P (MAP) Pulse Ox O2 Delivery O2 Flow Rate FiO2 03/28/17 14:42 108 28 91 BiPAP/CPAP 60 03/28/17 12:00 95 High Flow Oxygen 55.0 100 03/28/17 11:44 36.8 115 18 132/76 (94) 93 03/28/17 11:20 102 26 92 Nasal Cannula 55.0 100 03/28/17 08:13 36.8 115 22 130/72 (91) 90 03/28/17 08:00 91 High Flow Oxygen 55.0 100 03/28/17 07:24 103 93 60 03/28/17 07:24 103 20 93 BiPAP/CPAP 60 03/28/17 05:07 104 85 50 03/28/17 04:46 37.5 107 22 137/75 (95) 92 BiPAP 03/28/17 04:00 BiPAP 60 03/28/17 03:15 96 50 03/28/17 03:14 98 20 96 BiPAP/CPAP 60 03/28/17 02:10 97 95 60 03/28/17 00:20 37.3 111 20 121/95 (104) 97 BiPAP 03/27/17 23:59 BiPAP 60 03/27/17 23:10 98 14 99 BiPAP/CPAP 80 03/27/17 23:08 99 98 70 03/27/17 20:00 95 BiPAP 03/27/17 19:56 36.9 114 22 118/76 (90) 93 BiPAP 03/27/17 19:18 110 18 67 Room Air 03/27/17 19:18 110 98 92 03/27/17 16:00 95 High Flow Oxygen 55.0 100 03/27/17 15:33 98 22 95 Nasal Cannula 6.0 100 03/27/17 15:24 36.4 97 22 114/69 (84) 96 High Flow Oxygen Physical Exam General Appearance: no apparent distress, + pertinent finding (chronically ill appearing) ENT: hearing grossly normal Neck: supple, no JVD Respiratory/Chest: no respiratory distress, + accessory muscle use, + pertinent finding (high-flow nasal cannula) Cardiovascular: + tachycardia, + normal peripheral pulses Abdomen: normal bowel sounds, non tender, soft Neurologic/Psychiatric: alert, normal mood/affect, oriented x 3 Laboratory Results Last 24 Hours Test 03/27/17 16:12 03/27/17 20:17 03/28/17 06:39 03/28/17 07:15 Bedside Glucose 167 mg/dl 134 mg/dl 173 mg/dl White Blood Count 12.22 K/uL Red Blood Count 3.80 M/uL Hemoglobin 10.2 g/dL Hematocrit 33.5 % Mean Corpuscular Volume 88.2 fL Mean Corpuscular Hemoglobin 26.8 pg Mean Corpuscular Hemoglobin Concent 30.4 g/dl RDW Standard Deviation 57.0 fL RDW Coefficient of Variation 17.5 % Platelet Count 126 K/uL Mean Platelet Volume 11.4 fL Sodium Level 135 mmol/L Potassium Level 3.9 mmol/L Chloride Level 96 mmol/L Carbon Dioxide Level 37 mmol/L Anion Gap 2.0 mmol/L Blood Urea Nitrogen 19 mg/dl Creatinine 0.47 mg/dl Est Creatinine Clear Calc Drug Dose 256.5 ml/min Estimated GFR () 146.1 Estimated GFR (Non- 126.0 BUN/Creatinine Ratio 39.8 Random Glucose 118 mg/dl Calcium Level 8.9 mg/dl Assessment and Plan Problem list: SOB Anxiety Depression Back pain, chronic Respiratory failure, acute on chronic- requiring bipap and high-flow nasal cannula, desaturates quickly without bipap 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 Gale Pneumonia vs. pneumonitis Hx recent DVT/PE Goals of care (Z51.5) Palliative care recs: -Patient is level 5- DNR/DNI. -Remains on Bipap and high-flow nasal cannula. Desaturates quickly when either are removed. -Consider Roxanol 5-10mg PO Q3h PRN. -Continue methadone and lorazepam as ordered. Could also increase lorazepam to 2mg IV Q4h PRN anxiety. 1mg does not seem to be doing much. -Patient again stated, "I thought I was going to be treated here then see about treating the cancer." The patient is either completely in denial or is truly confused and not remembering our multiple extensive conversations about the fact that he is at the end of life. He has verbalized his fear of dying, and it feels quite futile to continue to explain to him over and over again that he is at the end of life. -The medical team is merely continuing supportive care at this point. I do not see a need for patient to be on telemetry-- will defer to primary medical team to decide if he can be transferred to [facility]. -I will touch base with the family tomorrow to again be sure the plan remains the same. From my last conversation with the patient and family together, we were not going to escalate care in the event of another acute event and were focusing on symptom management. Patient did ask for more anxiety medication. I will continue to follow as needed. Palliative Performance Scale: 30 % Continued [facility] stay due to: multiple IV medications needed, home environment unsafe for pt, other Discharge planning: uncertain
--- NOTE | 2017-03-28 19:39 | Progress Note ---
Medicine Progress Note Date & Time of Visit: Mar 28, 2017 at 19:32. Subjective Pt was seen and examined Lying in bed with respiratory distress Continue to require high flow oxygen or BIPAP to keep oxygen sat stable Pt does not want to accept that his disease is worsening He gets very anxious to talk about end of life Objective Last 8 Hrs Date Time Temp Pulse Resp B/P (MAP) Pulse Ox O2 Delivery O2 Flow Rate FiO2 03/28/17 19:10 36.7 115 22 108/81 (90) 87 High Flow Oxygen 03/28/17 17:00 90 High Flow Oxygen 55.0 95 03/28/17 16:34 118 24 120/69 (86) 80 BiPAP 03/28/17 16:29 95 High Flow Oxygen 55.0 100 03/28/17 14:42 108 28 91 BiPAP/CPAP 60 03/28/17 12:00 95 High Flow Oxygen 55.0 100 03/28/17 11:44 36.8 115 18 132/76 (94) 93 Physical Exam: Head- atraumatic Eyes- PERRL, EOMI ENT- oropharynx clear Neck- supple, no JVD Lungs- Coarse BS Heart- regular rhythm; no murmur Abdomen- normal bowel sounds, soft Extremities- no calf tenderness Neuro- alert, oriented x 3 Skin- warm & dry Laboratory Results: Last 24 Hours Test 03/27/17 20:17 03/28/17 06:39 03/28/17 07:15 03/28/17 10:58 Bedside Glucose 134 mg/dl 173 mg/dl 306 mg/dl White Blood Count 12.22 K/uL Red Blood Count 3.80 M/uL Hemoglobin 10.2 g/dL Hematocrit 33.5 % Mean Corpuscular Volume 88.2 fL Mean Corpuscular Hemoglobin 26.8 pg Mean Corpuscular Hemoglobin Concent 30.4 g/dl RDW Standard Deviation 57.0 fL RDW Coefficient of Variation 17.5 % Platelet Count 126 K/uL Mean Platelet Volume 11.4 fL Sodium Level 135 mmol/L Potassium Level 3.9 mmol/L Chloride Level 96 mmol/L Carbon Dioxide Level 37 mmol/L Anion Gap 2.0 mmol/L Blood Urea Nitrogen 19 mg/dl Creatinine 0.47 mg/dl Est Creatinine Clear Calc Drug Dose 256.5 ml/min Estimated GFR () 146.1 Estimated GFR (Non- 126.0 BUN/Creatinine Ratio 39.8 Random Glucose 118 mg/dl Calcium Level 8.9 mg/dl Test 03/28/17 16:34 Bedside Glucose 126 mg/dl Assessment & Plan ACUTE ON CHRONIC HYPOXIC RESPIRATORY FAILURE: likely secondary to HCAP, COPD EXACERBATION, HISTORY OF LUNG CA, recent RADIATION PNEUMONITIS -follow cultures; last admission BAL grew meño -for now on empiric Vanc, Cefepime, Levaquin; can likely stop the vanco as MRSA screen negative -continued on IV solu-medrol, weaned to once daily but might be helpful to increase to BID to help with the wheezing -continued on Bipap, nebs; continues to desat quickly without the bipap -in ICU initially, but now in tele as patient is DNI/DNR -[employer] Registrar consulted, appreciate recs -[employer] Registrar/oncology/palliative care/ hospitalist discussed with the patients POA, [id number] and brother that the patient's chance for recovery is poor POSSIBLE SEPSIS: now resolved -lactic acid normal on repeat, but was elevated on admission POC lactic acid -was on IV fluids, now off, BP stable -continued on broad spectrum antibiotics - vanco D/C 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, s/p chemo and radiation -Oncology discussed with the patient that he would likely no longer be a candidate for additional chemo given his current condition -Palliative care consulted; appreciate recommendations; patient signed POLST form last admission DNR/DNI which was confirmed by ICU staff after meeting with the family as the patient decided he would not want to have a trach/PEG and understands that an intubation at this point would almost certainly result in trach/PEG RECENT B/L PE AND NEW LUE DVT: -continue Lovenox BID; patient is injecting this himself into his thigh as he refuses subcutaneous injections into his abdomen and insists he takes them at home in his thigh -LUE doppler done due to new edema, + for DVT in the left IJ, left subclavian, left brachial, left basilic, and left axillary veins -Anti-Xa was 0.64 which falls in the therapeutic range -PF4 was checked due to worsening thrombocytopenia and new clots and was negative -discussed with Hem/onc and advised to continue Lovenox as presently taking - Dr. roblero does not plan to start the chemo DM TYPE II: -Pharmacy glycemic control consulted, appreciate recommendations -has poor oral intake due to difficulty breathing, even while on high flow -was very well controlled as of recent HbA1c from earlier this month -patient is very fixated on his insulin and management of diabetes and often forgets the prior discussions about how in the hospital he needs assistance and this is why glycemic pharmacy is managing ATRIAL FIBRILLATION: -on metoprolol and Lovenox already -appears in sinus tach presently CHRONIC BACK PAIN: -continued on methadone ANXIETY: -on IV ativan q 4 hours + valium BID -was initially on Precedex drip for anxiety and was changed to ativan and valium -Consulted Psych to assist with management of anxiety and depression, but patient does not want to try gabapentin and requests his medication doses be raised which is risky with his fragile respiratory state DVT PX on LOVENOX subq CODE STATUS DNR Continued [facility] stay due to: multiple IV medications needed, home environment unsafe for pt, other Discharge planning: uncertain Current Inpatient Medications: Current Inpatient Medications Medications (Trade) Dose Ordered Sig/Prince Route Start Time Stop Time Status Last Admin Dose Admin Cefepime HCl (Consult) 1 ea DAILY PRN N/A 03/22/17 04:47 04/21/17 04:46 Miscellaneous Information (Consult Glycemic Management Pharmacy) 1 ea DAILY PRN N/A 03/22/17 03:53 04/21/17 03:52 Diazepam (Valium Tab) 2 mg BID PRN PO 03/22/17 02:00 04/21/17 01:59 03/28/17 08:12 2 MG Docusate Sodium (coLACE CAP) 100 mg BID PO 03/22/17 09:00 04/21/17 08:59 03/27/17 21:04 100 MG Magnesium Oxide (Mag-Ox Tab) 400 mg QAM PO 03/22/17 09:00 04/21/17 08:59 03/28/17 07:49 400 MG Metoprolol Succinate (Toprol Xl Tab) 12.5 mg QAM PO 03/22/17 09:00 04/21/17 08:59 03/28/17 07:48 12.5 MG Tramadol HCl (Ultram Tab) 50 mg Q6H PRN PO 03/22/17 02:00 04/21/17 01:59 03/26/17 22:20 50 MG Triamcinolone Acetonide (Nasacort Allergy 24hr) 2 sprays DAILY BJ 03/22/17 09:00 04/21/17 08:59 03/28/17 07:49 2 SPRAYS Levofloxacin (Consult) 1 ea UD PRN N/A 03/22/17 05:00 04/21/17 04:59 Ipratropium [place] (Atrovent 0.02% 0.5MG/2.5ML Neb) 0.5 mg Q4R INH 03/22/17 08:00 04/21/17 07:59 03/28/17 14:42 0.5 MG Levalbuterol (Xopenex 1.25MG/ 0.5ML Neb) 1.25 mg Q4R INH 03/22/17 08:00 04/21/17 07:59 03/28/17 14:42 1.25 MG Cefepime HCl 2000 mg/Syringe 20 ml @ 5 mls/min Q8 IV 03/22/17 14:00 03/29/17 13:59 03/28/17 16:07 5 MLS/MIN Levofloxacin 750 mg/Prmx 150 ml @ 100 mls/hr Q24H IV 03/23/17 03:00 03/30/17 02:59 03/28/17 03:48 100 MLS/HR Famotidine (Pepcid Tab) 20 mg BID PO 03/23/17 09:00 04/22/17 08:59 03/28/17 07:48 20 MG Enoxaparin Sodium (Lovenox Inj) 80 mg Q12H SQ 03/23/17 06:00 04/22/17 05:59 03/28/17 18:00 80 MG Lorazepam (Ativan Inj) 1 mg Q4H PRN IV 03/22/17 19:15 04/21/17 19:14 03/28/17 16:06 1 MG Fentanyl Citrate (Fentanyl Inj) 50 mcg Q1HWA PRN IV 03/22/17 19:30 04/05/17 19:29 03/23/17 11:36 50 MCG Insulin Aspart (novoLOG ASPART) SLIDING SCALE ACHS SC 03/24/17 07:00 04/23/17 06:59 03/28/17 17:58 20 UNITS Sodium Chloride 1,000 ml @ 75 mls/hr [id number] IV 03/24/17 19:30 04/23/17 19:29 03/28/17 18:07 75 MLS/HR Methadone HCl (Dolophine Tab) 15 mg Q6H PO 03/25/17 22:00 04/08/17 21:59 03/28/17 17:49 15 MG Zolpidem Tartrate (Ambien Tab) 10 mg DAILY@2200 PO 03/25/17 22:00 04/24/17 21:59 03/27/17 21:19 10 MG Methylprednisolone Sodium Succinate 60 mg/Syringe 0.96 ml @ 1.5 mls/min DAILY@0600 IV 03/27/17 06:00 04/26/17 05:59 03/28/17 06:04 1.5 MLS/MIN Insulin Glargine (Lantus Solostar Pen) 50 units QAM SC 03/28/17 09:00 04/27/17 08:59 03/28/17 08:01 50 UNITS
[2017-03-28] MEDS: ZOLPIDEM TARTRATE 10 MG TAB PO SCH (22:23)
[2017-03-28] MEDS: TRAMADOL HCL 50 MG TAB PO PRN (22:32)
[2017-03-29] VITALS (16 sets, daily range): BP systolic 113–151; BP diastolic 63–85; PULSE 93–125; TEMP 36.4–37; O2SAT 76–99; BMI 34.9
[2017-03-29] MEDS: LEVOFLOXACIN 750MG / D5W IV SCH (03:11)
[2017-03-29] MEDS: METHADONE HCL 10 MG TAB PO SCH ×4 (03:12→22:45)
[2017-03-29] MEDS: IPRATROPIUM BROMIDE NEB SOLN 0.02% 2.5 ML VIAL INH SCH ×5 (03:40→19:21)
[2017-03-29] MEDS: LEVALBUTEROL 1.25MG/0.5ML NEB INH SCH ×5 (03:40→19:21)
[2017-03-29] MEDS: METHYLPREDNISOLONE IV 60 MG in SYRINGE 0 ML IV SCH (05:19)
[2017-03-29] MEDS: CEFEPIME IV 2,000 MG in SYRINGE 7.5 ML IV SCH (05:19)
[2017-03-29] MEDS: SODIUM CHLORIDE 0.9% 1000ML 1,000 ML IV SCH ×2 (05:20→20:11)
[2017-03-29] MEDS: ENOXAPARIN 80 MG/0.8 ML SYR SQ SCH ×2 (05:20→17:43)
[2017-03-29] MEDS: DOCUSATE SODIUM 100 MG CAP PO SCH ×2 (08:40→21:00)
[2017-03-29] MEDS: FAMOTIDINE 20 MG TAB PO SCH ×2 (08:41→22:45)
[2017-03-29] MEDS: MAGNESIUM OXIDE 400 MG TAB PO SCH (08:41)
[2017-03-29] MEDS: METOPROLOL SUCC 25MG EXT REL TAB PO SCH (08:43)
[2017-03-29] MEDS: TRIAMCINOLONE ACET NASAL SPRAY 10.8ML BTL NAE SCH (08:44)
[2017-03-29] MEDS: INSULIN GLARGINE SOLOSTAR 100 UNITS/ML 3 ML PEN SC SCH (08:56)
[2017-03-29] MEDS: INSULIN ASPART 100 UNITS/ML 3 ML PEN SC SCH ×4 (08:56→21:00)
[2017-03-29] MEDS: DIAZEPAM 2MG TAB PO PRN (08:57)
--- NOTE | 2017-03-29 12:30 | Pharmacy Progress Note ---
Glycemic Control Progress Note Date of Service Mar 29, 2017. Scope Glycemic Pharmacist consulted for glycemic control to write orders per [facility] inpatient glycemic control protocol. Objective Accuchecks BSG (last 24hrs): Test 03/28/17 16:34 03/28/17 20:03 03/29/17 06:29 03/29/17 10:57 Bedside Glucose 126 mg/dl (70-99) 187 mg/dl (70-99) 126 mg/dl (70-99) 378 mg/dl (70-99) HbA1c: 6.4% 01/31/17 Recent Pertinent Medications The patient is currently receiving: * Basal insulin: Lantus 50 units SQ Q AM * Correctional Insulin: Novolog Correction per scale ACHS Goal Range: Low 110 mg/dL - High 140 mg/dL Correction Factor: 9 mg/dL/unit * Prandial insulin: Per carb ratio of 1 unit per 3 grams CHO consumed Outpatient Anti-Diabetic Meds Per Med Reconciliation: Humulin N 75 units w/ breakfast Humalog per sliding scale Novolin R 15 units w/ meals Assessment & Plan ASSESSMENT: 03/27/17 * BSGs have ranged 111-250 over the last 24 hours * He received 114 units of SQ insulin over the last 24 hrs (while tolerating a diet) * BSGs elevated yesterday AM, but explainable as patient had been snacking overnight. As the day progressed BSGs dropped to goal * Fasting AM BSG improved today. FBS 134 with 50 units Lantus on board. Will change Lantus order to 50 units SQ once daily in AM as this dose has performed well on prior hospitalization, plus once daily Solu-Medrol in the AM will coincide with Lantus administration. * The current CF and CR are reasonable as they performed well on prior admission. 03/29/17 * Fasting BSG continues to be at goal w/ current Lantus dose * Pre-lunch BSG continues to be elevated. Likely secondary to AM prednisone administration as well as patient snacking in the AM while family visits. * Will increase the prandial dose w/ breakfast to help combat pre-lunch hyperglycemia. * Given patient's prognosis, will not make large changes to his regimen PLAN FOR INPATIENT GLYCEMIC CONTROL: * Changing Lantus to 50 units SQ Q AM * Continuing correction factor of 9 mg/dl/unit * Continuing carb ratio of 1 unit per 3 grams CHO consumed with lunch and dinner however use carb ratio of 1 unit per 2.5 grams CHO w/ breakfast * Continuing goal range of Low 110 mg/dL - High 140 mg/dL * Reassess insulin dose with each step-down in steroid dose * Please note that the plan above was derived based on current level of insulin resistance and hospital stress. These recommendations are appropriate for inpatient admission only. Plan of care upon discharge will need to be reassessed to avoid potential outpatient hypo/hyperglycemia. Thank you.
[2017-03-29] MEDS: LORAZEPAM 2 MG/ML 1 ML VIAL IV PRN (13:37)
[2017-03-29] MEDS: TRAMADOL HCL 50 MG TAB PO PRN (17:57)
--- NOTE | 2017-03-29 20:53 | Progress Note ---
Medicine Progress Note Date & Time of Visit: Mar 29, 2017 at 20:53. Subjective Pt was seen and examined Lying in bed with no distress Discussed with patient about LTAC I also had a family meeting with (brother, sister, mother, father) about LTAC family will think about LTAC and will decide next week about LTAC Pt said that he feels slightly better today Objective Last 8 Hrs Date Time Temp Pulse Resp B/P (MAP) Pulse Ox O2 Delivery O2 Flow Rate FiO2 03/29/17 19:23 104 20 96 Nasal Cannula 50.0 100 03/29/17 16:32 36.4 93 20 151/80 (103) 94 High Flow Oxygen 03/29/17 16:00 BiPAP 03/29/17 14:30 112 20 99 Nasal Cannula 50.0 100 03/29/17 14:00 76 Nasal Cannula 6.0 Physical Exam: Head- atraumatic Eyes- PERRL, EOMI ENT- oropharynx clear Neck- supple, no JVD Lungs- Coarse BS Heart- regular rhythm; no murmur Abdomen- normal bowel sounds, soft Extremities- no calf tenderness Neuro- alert, oriented x 3 Skin- warm & dry Laboratory Results: Last 24 Hours Test 03/29/17 06:29 03/29/17 10:57 03/29/17 16:33 Bedside Glucose 126 mg/dl 378 mg/dl 214 mg/dl Assessment & Plan ACUTE ON CHRONIC HYPOXIC RESPIRATORY FAILURE: likely secondary to HCAP, COPD EXACERBATION, HISTORY OF LUNG CA, recent RADIATION PNEUMONITIS -follow cultures; last admission BAL grew meño -for now on empiric Vanc, Cefepime, Levaquin; can likely stop the vanco as MRSA screen negative -continued on IV solu-medrol, weaned to once daily but might be helpful to increase to BID to help with the wheezing -continued on Bipap, nebs; continues to desat quickly without the bipap -in ICU initially, but now in tele as patient is DNI/DNR -Clinical Phlebotomist consulted, appreciate recs -Clinical Phlebotomist/oncology/palliative care/ hospitalist discussed with the patients POA, [id number] and brother that the patient's chance for recovery is poor - had meeting with family about LTAC - Family concern since the closest facility in in [place] - Will decide in the coming week about LTAC - Will do a trial of NC POSSIBLE SEPSIS: -lactic acid normal on repeat, but was elevated on admission POC lactic acid -was on IV fluids, now off, BP stable -continued on broad spectrum antibiotics -vanco D/C 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, s/p chemo and radiation -Oncology discussed with the patient that he would likely no longer be a candidate for additional chemo given his current condition -Palliative care consulted; appreciate recommendations; patient signed POLST form last admission DNR/DNI which was confirmed by ICU staff after meeting with the family as the patient decided he would not want to have a trach/PEG and understands that an intubation at this point would almost certainly result in trach/PEG RECENT B/L PE AND NEW LUE DVT: -continue Lovenox BID; patient is injecting this himself into his thigh as he refuses subcutaneous injections into his abdomen and insists he takes them at home in his thigh -LUE doppler done due to new edema, + for DVT in the left IJ, left subclavian, left brachial, left basilic, and left axillary veins -Anti-Xa was 0.64 which falls in the therapeutic range -PF4 was checked due to worsening thrombocytopenia and new clots and was negative -discussed with Hem/onc and advised to continue Lovenox as presently taking - Dr. roblero does not plan to start the chemo DM TYPE II: -Pharmacy glycemic control consulted, appreciate recommendations -has poor oral intake due to difficulty breathing, even while on high flow -was very well controlled as of recent HbA1c from earlier this month -patient is very fixated on his insulin and management of diabetes and often forgets the prior discussions about how in the hospital he needs assistance and this is why glycemic pharmacy is managing ATRIAL FIBRILLATION: -on metoprolol and Lovenox already -appears in sinus tach presently CHRONIC BACK PAIN: -continued on methadone ANXIETY: -on IV ativan q 4 hours + valium BID -was initially on Precedex drip for anxiety and was changed to ativan and valium -Consulted Psych to assist with management of anxiety and depression, but patient does not want to try gabapentin and requests his medication doses be raised which is risky with his fragile respiratory state DVT PX on LOVENOX subq CODE STATUS DNR Disposition Will consider long-term facility Continued [facility] stay due to: multiple IV medications needed, home environment unsafe for pt, other Discharge planning: uncertain Current Inpatient Medications: Current Inpatient Medications Medications (Trade) Dose Ordered Sig/Prince Route Start Time Stop Time Status Last Admin Dose Admin Cefepime HCl (Consult) 1 ea DAILY PRN N/A 03/22/17 04:47 04/21/17 04:46 Miscellaneous Information (Consult Glycemic Management Pharmacy) 1 ea DAILY PRN N/A 03/22/17 03:53 04/21/17 03:52 Diazepam (Valium Tab) 2 mg BID PRN PO 03/22/17 02:00 04/21/17 01:59 03/29/17 08:57 2 MG Docusate Sodium (coLACE CAP) 100 mg BID PO 03/22/17 09:00 04/21/17 08:59 03/28/17 22:27 100 MG Magnesium Oxide (Mag-Ox Tab) 400 mg QAM PO 03/22/17 09:00 04/21/17 08:59 03/29/17 08:41 400 MG Metoprolol Succinate (Toprol Xl Tab) 12.5 mg QAM PO 03/22/17 09:00 04/21/17 08:59 03/29/17 08:43 12.5 MG Tramadol HCl (Ultram Tab) 50 mg Q6H PRN PO 03/22/17 02:00 04/21/17 01:59 03/29/17 17:57 50 MG Triamcinolone Acetonide (Nasacort Allergy 24hr) 2 sprays DAILY BJ 03/22/17 09:00 04/21/17 08:59 03/29/17 08:44 2 SPRAYS Levofloxacin (Consult) 1 ea UD PRN N/A 03/22/17 05:00 04/21/17 04:59 Ipratropium [place] (Atrovent 0.02% 0.5MG/2.5ML Neb) 0.5 mg Q4R INH 03/22/17 08:00 04/21/17 07:59 03/29/17 19:21 0.5 MG Levalbuterol (Xopenex 1.25MG/ 0.5ML Neb) 1.25 mg Q4R INH 03/22/17 08:00 04/21/17 07:59 03/29/17 19:21 1.25 MG Levofloxacin 750 mg/Prmx 150 ml @ 100 mls/hr Q24H IV 03/23/17 03:00 03/30/17 02:59 03/29/17 03:11 100 MLS/HR Famotidine (Pepcid Tab) 20 mg BID PO 03/23/17 09:00 04/22/17 08:59 03/29/17 08:41 20 MG Enoxaparin Sodium (Lovenox Inj) 80 mg Q12H SQ 03/23/17 06:00 04/22/17 05:59 03/29/17 17:43 80 MG Lorazepam (Ativan Inj) 1 mg Q4H PRN IV 03/22/17 19:15 04/21/17 19:14 03/29/17 13:37 1 MG Fentanyl Citrate (Fentanyl Inj) 50 mcg Q1HWA PRN IV 03/22/17 19:30 04/05/17 19:29 03/23/17 11:36 50 MCG Insulin Aspart (novoLOG ASPART) SLIDING SCALE ACHS SC 03/24/17 07:00 03/29/17 23:59 03/29/17 17:47 51 UNITS Sodium Chloride 1,000 ml @ 75 mls/hr [id number] IV 03/24/17 19:30 04/23/17 19:29 03/29/17 20:11 75 MLS/HR Methadone HCl (Dolophine Tab) 15 mg Q6H PO 03/25/17 22:00 04/08/17 21:59 03/29/17 17:41 15 MG Zolpidem Tartrate (Ambien Tab) 10 mg DAILY@2200 PO 03/25/17 22:00 04/24/17 21:59 03/28/17 22:23 10 MG Methylprednisolone Sodium Succinate 60 mg/Syringe 0.96 ml @ 1.5 mls/min DAILY@0600 IV 03/27/17 06:00 04/26/17 05:59 03/29/17 05:19 1.5 MLS/MIN Insulin Glargine (Lantus Solostar Pen) 50 units QAM SC 03/28/17 09:00 04/27/17 08:59 03/29/17 08:56 50 UNITS Insulin Aspart (novoLOG ASPART) SLIDING SCALE DAILY@0700 SC 03/30/17 07:00 04/29/17 06:59 Insulin Aspart (novoLOG ASPART) SLIDING SCALE ACHS SC 03/30/17 11:00 04/29/17 10:59
[2017-03-29] MEDS: ZOLPIDEM TARTRATE 10 MG TAB PO SCH (22:45)
[2017-03-30] VITALS (17 sets, daily range): BP systolic 109–153; BP diastolic 66–81; PULSE 96–115; TEMP 36.6–37.2; O2SAT 90–98
[2017-03-30] MEDS: LEVALBUTEROL 1.25MG/0.5ML NEB INH SCH ×7 (00:26→22:50)
[2017-03-30] MEDS: IPRATROPIUM BROMIDE NEB SOLN 0.02% 2.5 ML VIAL INH SCH ×7 (00:26→22:50)
[2017-03-30] MEDS: METHADONE HCL 10 MG TAB PO SCH ×4 (05:39→22:14)
[2017-03-30] MEDS: METHYLPREDNISOLONE IV 60 MG in SYRINGE 0 ML IV SCH (05:41)
[2017-03-30] MEDS: ENOXAPARIN 80 MG/0.8 ML SYR SQ SCH ×2 (05:42→16:45)
[2017-03-30] MEDS ORDERED: INSULIN ASPART 100 UNITS/ML 3 ML PEN SC SCH (07:00)
[2017-03-30] MEDS: INSULIN GLARGINE SOLOSTAR 100 UNITS/ML 3 ML PEN SC SCH (07:41)
[2017-03-30] MEDS: FAMOTIDINE 20 MG TAB PO SCH ×2 (07:44→21:00)
[2017-03-30] MEDS: DOCUSATE SODIUM 100 MG CAP PO SCH ×2 (07:44→21:00)
[2017-03-30] MEDS: MAGNESIUM OXIDE 400 MG TAB PO SCH (07:44)
[2017-03-30] MEDS: METOPROLOL SUCC 25MG EXT REL TAB PO SCH (07:44)
[2017-03-30] MEDS: TRAMADOL HCL 50 MG TAB PO PRN (07:49)
[2017-03-30] MEDS: DIAZEPAM 2MG TAB PO PRN ×2 (08:01→17:05)
[2017-03-30] MEDS: TRIAMCINOLONE ACET NASAL SPRAY 10.8ML BTL NAE SCH (09:00)
[2017-03-30] MEDS: LORAZEPAM 2 MG/ML 1 ML VIAL IV PRN ×2 (09:53→22:19)
[2017-03-30] MEDS: INSULIN ASPART 100 UNITS/ML 3 ML PEN SC SCH ×3 (11:39→21:00)
[2017-03-30] MEDS ORDERED: FUROSEMIDE INJ 20 MG in SYRINGE 0 ML IV ONE (16:00)
--- NOTE | 2017-03-30 16:21 | Progress Note ---
Medicine Progress Note Date & Time of Visit: Mar 30, 2017 at 16:14. Subjective Pt was seen and examined Lying in bed with no distress Pt continue to use BiPAP alternate with High flow oxygen Pt said that he feels fine as long as he uses the bipap and the high flow oxygen He continue to be very anxious Denies any chest pain, palpitation and dizziness Objective Last 8 Hrs Date Time Temp Pulse Resp B/P (MAP) Pulse Ox O2 Delivery O2 Flow Rate FiO2 03/30/17 16:07 36.6 96 15 109/68 (82) 97 High Flow Oxygen 03/30/17 14:30 100 20 98 Nasal Cannula 50.0 100 03/30/17 12:00 High Flow Oxygen BiPAP 03/30/17 11:46 36.9 104 18 128/66 (86) 95 BiPAP 03/30/17 11:21 105 20 96 Nasal Cannula 50.0 100 Physical Exam: Head- atraumatic Eyes- PERRL, EOMI ENT- oropharynx clear Neck- supple, no JVD Lungs- Coarse BS Heart- regular rhythm; no murmur Abdomen- normal bowel sounds, soft Extremities- no calf tenderness Neuro- alert, oriented x 3 Skin- warm & dry Laboratory Results: Last 24 Hours Test 03/29/17 16:33 03/29/17 20:58 03/30/17 11:18 Bedside Glucose 214 mg/dl 141 mg/dl 276 mg/dl Assessment & Plan ACUTE ON CHRONIC HYPOXIC RESPIRATORY FAILURE: likely secondary to HCAP, COPD EXACERBATION, HISTORY OF LUNG CA, recent RADIATION PNEUMONITIS -follow cultures; last admission BAL grew meño -for now on empiric Vanc, Cefepime, Levaquin; can likely stop the vanco as MRSA screen negative -continued on IV solu-medrol, weaned to once daily but might be helpful to increase to BID to help with the wheezing -continued on Bipap, nebs; continues to desat quickly without the bipap -in ICU initially, but now in tele as patient is DNI/DNR -Inspector Elevators consulted, appreciate recs -Inspector Elevators/oncology/palliative care/ hospitalist discussed with the patients POA, [id number] and brother that the patient's chance for recovery is poor - had meeting with family about LTAC - Family concern since the closest facility in in [place] - Will decide in the coming week about LTAC - He is very anxious to try nonrebreather or NC - Will give a trial of Lasix 20mgx1 POSSIBLE SEPSIS: -lactic acid normal on repeat, but was elevated on admission POC lactic acid -was on IV fluids, now off, BP stable Completed the course of Abx 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, s/p chemo and radiation -Oncology discussed with the patient that he would likely no longer be a candidate for additional chemo given his current condition -Palliative care consulted; appreciate recommendations; patient signed POLST form last admission DNR/DNI which was confirmed by ICU staff after meeting with the family as the patient decided he would not want to have a trach/PEG and understands that an intubation at this point would almost certainly result in trach/PEG RECENT B/L PE AND NEW LUE DVT: -continue Lovenox BID; patient is injecting this himself into his thigh as he refuses subcutaneous injections into his abdomen and insists he takes them at home in his thigh -LUE doppler done due to new edema, + for DVT in the left IJ, left subclavian, left brachial, left basilic, and left axillary veins -Anti-Xa was 0.64 which falls in the therapeutic range -PF4 was checked due to worsening thrombocytopenia and new clots and was negative -discussed with Hem/onc and advised to continue Lovenox as presently taking - Dr. roblero does not plan to start the chemo - He continues to refused the lovenox subq in his abdomen and continues insist to take it in his tight DM TYPE II: -Pharmacy glycemic control consulted, appreciate recommendations -has poor oral intake due to difficulty breathing, even while on high flow -was very well controlled as of recent HbA1c from earlier this month -patient is very fixated on his insulin and management of diabetes and often forgets the prior discussions about how in the hospital he needs assistance and this is why glycemic pharmacy is managing ATRIAL FIBRILLATION: -on metoprolol and Lovenox already -Stable CHRONIC BACK PAIN: -continued on methadone ANXIETY: -on IV ativan q 4 hours + valium BID -was initially on Precedex drip for anxiety and was changed to ativan and valium -Consulted Psych to assist with management of anxiety and depression, but patient does not want to try gabapentin and requests his medication doses be raised which is risky with his fragile respiratory state -Continue to be anxious once discussing with him about switching home or trial of NC or non rebreather DVT PX on LOVENOX subq CODE STATUS DNR Disposition Waiting for placement Will transfer to medical Continued [facility] stay due to: multiple IV medications needed, home environment unsafe for pt, other Discharge planning: uncertain Current Inpatient Medications: Current Inpatient Medications Medications (Trade) Dose Ordered Sig/Prince Route Start Time Stop Time Status Last Admin Dose Admin Miscellaneous Information (Consult Glycemic Management Pharmacy) 1 ea DAILY PRN N/A 03/22/17 03:53 04/21/17 03:52 Diazepam (Valium Tab) 2 mg BID PRN PO 03/22/17 02:00 04/21/17 01:59 03/30/17 08:01 2 MG Docusate Sodium (coLACE CAP) 100 mg BID PO 03/22/17 09:00 04/21/17 08:59 03/30/17 07:44 100 MG Magnesium Oxide (Mag-Ox Tab) 400 mg QAM PO 03/22/17 09:00 04/21/17 08:59 03/30/17 07:44 400 MG Metoprolol Succinate (Toprol Xl Tab) 12.5 mg QAM PO 03/22/17 09:00 04/21/17 08:59 03/30/17 07:44 12.5 MG Tramadol HCl (Ultram Tab) 50 mg Q6H PRN PO 03/22/17 02:00 04/21/17 01:59 03/30/17 07:49 50 MG Triamcinolone Acetonide (Nasacort Allergy 24hr) 2 sprays DAILY BJ 03/22/17 09:00 04/21/17 08:59 03/30/17 09:00 2 SPRAYS Ipratropium [place] (Atrovent 0.02% 0.5MG/2.5ML Neb) 0.5 mg Q4R INH 03/22/17 08:00 04/21/17 07:59 03/30/17 14:29 0.5 MG Levalbuterol (Xopenex 1.25MG/ 0.5ML Neb) 1.25 mg Q4R INH 03/22/17 08:00 04/21/17 07:59 03/30/17 14:29 1.25 MG Famotidine (Pepcid Tab) 20 mg BID PO 03/23/17 09:00 04/22/17 08:59 1/5/18 07:44 20 MG Enoxaparin Sodium (Lovenox Inj) 80 mg Q12H SQ 03/23/17 06:00 04/22/17 05:59 03/30/17 05:42 80 MG Lorazepam (Ativan Inj) 1 mg Q4H PRN IV 03/22/17 19:15 04/21/17 19:14 03/30/17 09:53 1 MG Fentanyl Citrate (Fentanyl Inj) 50 mcg Q1HWA PRN IV 03/22/17 19:30 04/05/17 19:29 03/23/17 11:36 50 MCG Methadone HCl (Dolophine Tab) 15 mg Q6H PO 03/25/17 22:00 04/08/17 21:59 03/30/17 11:34 15 MG Zolpidem Tartrate (Ambien Tab) 10 mg DAILY@2200 PO 03/25/17 22:00 04/24/17 21:59 03/29/17 22:45 10 MG Insulin Glargine (Lantus Solostar Pen) 50 units QAM SC 03/28/17 09:00 04/27/17 08:59 03/30/17 07:41 50 UNITS Insulin Aspart (novoLOG ASPART) SLIDING SCALE DAILY@0700 SC 03/30/17 07:00 04/29/17 06:59 03/30/17 07:40 34 UNITS Insulin Aspart (novoLOG ASPART) SLIDING SCALE ACHS SC 03/30/17 11:00 04/29/17 10:59 03/30/17 11:39 26 UNITS Methylprednisolone Sodium Succinate 40 mg/Syringe 0.64 ml @ 1.5 mls/min DAILY@0900 IV 03/31/17 09:00 04/30/17 08:59
[2017-03-30] MEDS: ZOLPIDEM TARTRATE 10 MG TAB PO SCH (22:14)
[2017-03-31] VITALS (14 sets, daily range): BP systolic 103–135; BP diastolic 65–75; PULSE 70–120; TEMP 36.6–37.3; O2SAT 90–97
[2017-03-31] MEDS: DIAZEPAM 2MG TAB PO PRN ×2 (01:48→17:17)
[2017-03-31] MEDS: TRAMADOL HCL 50 MG TAB PO PRN (01:49)
[2017-03-31] MEDS: LEVALBUTEROL 1.25MG/0.5ML NEB INH SCH ×6 (03:48→23:07)
[2017-03-31] MEDS: IPRATROPIUM BROMIDE NEB SOLN 0.02% 2.5 ML VIAL INH SCH ×6 (03:48→23:07)
[2017-03-31] MEDS: METHADONE HCL 10 MG TAB PO SCH ×4 (03:57→21:31)
[2017-03-31] MEDS: ENOXAPARIN 80 MG/0.8 ML SYR SQ SCH ×3 (05:56→18:08)
[2017-03-31] MEDS: TRIAMCINOLONE ACET NASAL SPRAY 10.8ML BTL NAE SCH (08:12)
[2017-03-31] MEDS: METHYLPREDNISOLONE IV 40 MG in SYRINGE 0 ML IV SCH (08:12)
[2017-03-31] MEDS: MAGNESIUM OXIDE 400 MG TAB PO SCH (08:13)
[2017-03-31] MEDS: METOPROLOL SUCC 25MG EXT REL TAB PO SCH (08:13)
[2017-03-31] MEDS: FAMOTIDINE 20 MG TAB PO SCH ×2 (08:13→21:32)
[2017-03-31] MEDS: INSULIN ASPART 100 UNITS/ML 3 ML PEN SC SCH ×4 (08:14→21:30)
[2017-03-31] MEDS: INSULIN GLARGINE SOLOSTAR 100 UNITS/ML 3 ML PEN SC SCH (08:14)
[2017-03-31] MEDS: DOCUSATE SODIUM 100 MG CAP PO SCH ×2 (08:19→21:00)
[2017-03-31] MEDS: LORAZEPAM INJ 1 MG in SYRINGE 0.5 ML IV PRN ×2 (08:48→13:13)
--- NOTE | 2017-03-31 20:08 | Progress Note ---
Medicine Progress Note Date & Time of Visit: Mar 31, 2017 at 10:03. Subjective Pt was seen and examined Lying in bed with no distress Pt continues to be very anxious He wants to be on a private room He continues to require CPAP and high flow oxygen Denies any chest pain, palpitation and dizziness Objective Last 8 Hrs Date Time Temp Pulse Resp B/P (MAP) Pulse Ox O2 Delivery O2 Flow Rate FiO2 03/31/17 19:51 36.6 120 20 135/75 (95) 91 High Flow Oxygen 03/31/17 16:45 High Flow Oxygen 15.0 03/31/17 15:58 115 22 96 Nasal Cannula 50.0 100 03/31/17 15:13 36.7 98 16 104/65 (78) 95 High Flow Oxygen 03/31/17 12:45 High Flow Oxygen 15.0 Physical Exam: Head- atraumatic Eyes- PERRL, EOMI ENT- oropharynx clear Neck- supple, no JVD Lungs- Coarse BS Heart- regular rhythm; no murmur Abdomen- normal bowel sounds, soft Extremities- no calf tenderness Neuro- alert, oriented x 3 Skin- warm & dry Laboratory Results: Last 24 Hours Test 03/30/17 20:30 03/31/17 01:44 03/31/17 02:32 03/31/17 06:11 Bedside Glucose 208 mg/dl 71 mg/dl 93 mg/dl 96 mg/dl Test 03/31/17 07:32 03/31/17 11:48 03/31/17 16:46 03/31/17 19:09 Bedside Glucose 114 mg/dl 155 mg/dl 334 mg/dl 308 mg/dl Assessment & Plan ACUTE ON CHRONIC HYPOXIC RESPIRATORY FAILURE: likely secondary to HCAP, COPD EXACERBATION, HISTORY OF LUNG CA, recent RADIATION PNEUMONITIS -follow cultures; last admission BAL grew meño -for now on empiric Vanc, Cefepime, Levaquin; can likely stop the vanco as MRSA screen negative -continued on IV solu-medrol, weaned to once daily but might be helpful to increase to BID to help with the wheezing -continued on Bipap, nebs; continues to desat quickly without the bipap -in ICU initially, but now in tele as patient is DNI/DNR -Graphite Grinder consulted, appreciate recs -Graphite Grinder/oncology/palliative care/ hospitalist discussed with the patients POA, [id number] and brother that the patient's chance for recovery is poor - had meeting with family about LTAC - Family concern since the closest facility in in [place] - Will decide in the coming week about LTAC - He is very anxious to try nonrebreather or NC - Stable POSSIBLE SEPSIS: -lactic acid normal on repeat, but was elevated on admission POC lactic acid -was on IV fluids, now off, BP stable Completed the course of Abx 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, s/p chemo and radiation -Oncology discussed with the patient that he would likely no longer be a candidate for additional chemo given his current condition -Palliative care consulted; appreciate recommendations; patient signed POLST form last admission DNR/DNI which was confirmed by ICU staff after meeting with the family as the patient decided he would not want to have a trach/PEG and understands that an intubation at this point would almost certainly result in trach/PEG RECENT B/L PE AND NEW LUE DVT: -continue Lovenox BID; patient is injecting this himself into his thigh as he refuses subcutaneous injections into his abdomen and insists he takes them at home in his thigh -LUE doppler done due to new edema, + for DVT in the left IJ, left subclavian, left brachial, left basilic, and left axillary veins -Anti-Xa was 0.64 which falls in the therapeutic range -PF4 was checked due to worsening thrombocytopenia and new clots and was negative -discussed with Hem/onc and advised to continue Lovenox as presently taking - Dr. roblero does not plan to start the chemo - He continues to refused the lovenox subq in his abdomen and continues insist to take it in his tight DM TYPE II: -Pharmacy glycemic control consulted, appreciate recommendations -has poor oral intake due to difficulty breathing, even while on high flow -was very well controlled as of recent HbA1c from earlier this month -patient is very fixated on his insulin and management of diabetes and often forgets the prior discussions about how in the hospital he needs assistance and this is why glycemic pharmacy is managing ATRIAL FIBRILLATION: -on metoprolol and Lovenox already -Stable CHRONIC BACK PAIN: -continued on methadone ANXIETY: -on IV ativan q 4 hours + valium BID -was initially on Precedex drip for anxiety and was changed to ativan and valium -Consulted Psych to assist with management of anxiety and depression, but patient does not want to try gabapentin and requests his medication doses be raised which is risky with his fragile respiratory state -Continue to be anxious once discussing with him about switching home or trial of NC or non rebreather DVT PX on LOVENOX subq CODE STATUS DNR Disposition Waiting for placement Will transfer to medical Continued [facility] stay due to: multiple IV medications needed, home environment unsafe for pt, other Discharge planning: uncertain Current Inpatient Medications: Current Inpatient Medications Medications (Trade) Dose Ordered Sig/Prince Route Start Time Stop Time Status Last Admin Dose Admin Miscellaneous Information (Consult Glycemic Management Pharmacy) 1 ea DAILY PRN N/A 03/22/17 03:53 04/21/17 03:52 Diazepam (Valium Tab) 2 mg BID PRN PO 03/22/17 02:00 04/21/17 01:59 03/31/17 17:17 2 MG Docusate Sodium (coLACE CAP) 100 mg BID PO 03/22/17 09:00 04/21/17 08:59 03/30/17 21:00 100 MG Magnesium Oxide (Mag-Ox Tab) 400 mg QAM PO 03/22/17 09:00 04/21/17 08:59 03/31/17 08:13 400 MG Metoprolol Succinate (Toprol Xl Tab) 12.5 mg QAM PO 03/22/17 09:00 04/21/17 08:59 03/31/17 08:13 12.5 MG Tramadol HCl (Ultram Tab) 50 mg Q6H PRN PO 03/22/17 02:00 04/21/17 01:59 03/31/17 01:49 50 MG Triamcinolone Acetonide (Nasacort Allergy 24hr) 2 sprays DAILY BJ 03/22/17 09:00 04/21/17 08:59 03/31/17 08:12 2 SPRAYS Ipratropium [place] (Atrovent 0.02% 0.5MG/2.5ML Neb) 0.5 mg Q4R INH 03/22/17 08:00 04/21/17 07:59 03/31/17 15:58 0.5 MG Levalbuterol (Xopenex 1.25MG/ 0.5ML Neb) 1.25 mg Q4R INH 03/22/17 08:00 04/21/17 07:59 03/31/17 15:58 1.25 MG Famotidine (Pepcid Tab) 20 mg BID PO 03/23/17 09:00 04/22/17 08:59 03/31/17 08:13 20 MG Enoxaparin Sodium (Lovenox Inj) 80 mg Q12H SQ 03/23/17 06:00 04/22/17 05:59 03/31/17 18:08 80 MG Lorazepam (Ativan Inj) 1 mg Q4H PRN IV 03/22/17 19:15 04/21/17 19:14 03/30/17 22:19 1 MG Fentanyl Citrate (Fentanyl Inj) 50 mcg Q1HWA PRN IV 03/22/17 19:30 04/05/17 19:29 03/23/17 11:36 50 MCG Methadone HCl (Dolophine Tab) 15 mg Q6H PO 03/25/17 22:00 04/08/17 21:59 03/31/17 16:26 15 MG Zolpidem Tartrate (Ambien Tab) 10 mg DAILY@2200 PO 03/25/17 22:00 04/24/17 21:59 03/30/17 22:14 10 MG Insulin Glargine (Lantus Solostar Pen) 50 units QAM SC 03/28/17 09:00 04/27/17 08:59 03/31/17 08:14 50 UNITS Insulin Aspart (novoLOG ASPART) SLIDING SCALE ACHS SC 03/30/17 11:00 04/29/17 10:59 03/31/17 17:14 46 UNITS Methylprednisolone Sodium Succinate 40 mg/Syringe 0.64 ml @ 1.5 mls/min DAILY@0900 IV 03/31/17 09:00 04/30/17 08:59 03/31/17 08:12 1.5 MLS/MIN Lorazepam 1 mg/ Syringe 1 ml @ 1 mls/min Q4H PRN IV 03/31/17 08:45 04/30/17 08:44 03/31/17 13:13 1 MLS/MIN
[2017-03-31] MEDS: ZOLPIDEM TARTRATE 10 MG TAB PO SCH (21:30)
[2017-04-01] VITALS (15 sets, daily range): BP systolic 110–132; BP diastolic 63–81; PULSE 87–114; TEMP 36.4–37; O2SAT 92–99
[2017-04-01] MEDS: INSULIN ASPART 100 UNITS/ML 3 ML PEN SC SCH ×6 (00:11→21:45)
[2017-04-01] MEDS: IPRATROPIUM BROMIDE NEB SOLN 0.02% 2.5 ML VIAL INH SCH ×7 (03:13→23:13)
[2017-04-01] MEDS: LEVALBUTEROL 1.25MG/0.5ML NEB INH SCH ×6 (03:13→23:13)
[2017-04-01] MEDS: METHADONE HCL 10 MG TAB PO SCH ×4 (04:17→21:45)
[2017-04-01] MEDS: ENOXAPARIN 80 MG/0.8 ML SYR SQ SCH ×2 (05:41→17:11)
[2017-04-01] MEDS: LORAZEPAM INJ 1 MG in SYRINGE 0.5 ML IV PRN ×3 (05:41→17:47)
[2017-04-01] MEDS: DIAZEPAM 2MG TAB PO PRN ×2 (08:09→21:45)
[2017-04-01] MEDS: MAGNESIUM OXIDE 400 MG TAB PO SCH (08:09)
[2017-04-01] MEDS: METOPROLOL SUCC 25MG EXT REL TAB PO SCH (08:09)
[2017-04-01] MEDS: FAMOTIDINE 20 MG TAB PO SCH ×2 (08:09→21:46)
[2017-04-01] MEDS: TRIAMCINOLONE ACET NASAL SPRAY 10.8ML BTL NAE SCH (08:10)
[2017-04-01] MEDS: DOCUSATE SODIUM 100 MG CAP PO SCH ×2 (08:10→21:00)
[2017-04-01] MEDS: METHYLPREDNISOLONE IV 40 MG in SYRINGE 0 ML IV SCH (08:10)
[2017-04-01] MEDS: INSULIN GLARGINE SOLOSTAR 100 UNITS/ML 3 ML PEN SC SCH (08:12)
[2017-04-01] MEDS ORDERED: INSULIN GLARGINE SOLOSTAR 100 UNITS/ML 3 ML PEN SC SCH (09:00)
[2017-04-01] MEDS: ACETYLCYSTEINE 600 MG CAP PO SCH ×2 (09:31→21:46)
--- NOTE | 2017-04-01 13:24 | Pharmacy Progress Note ---
Glycemic Control Progress Note Date of Service Apr 01, 2017. Scope Glycemic Pharmacist consulted for glycemic control to write orders per [facility] inpatient glycemic control protocol. Objective Accuchecks BSG (last 24hrs): Test 03/31/17 16:46 03/31/17 19:09 04/01/17 00:01 04/01/17 04:07 Bedside Glucose 334 mg/dl (70-99) 308 mg/dl (70-99) 156 mg/dl (70-99) 65 mg/dl (70-99) Test 04/01/17 04:31 04/01/17 06:58 04/01/17 07:32 04/01/17 11:30 Bedside Glucose 172 mg/dl (70-99) 148 mg/dl (70-99) 121 mg/dl (70-99) 133 mg/dl (70-99) Recent Pertinent Medications The patient is currently receiving: * Basal insulin: Lantus 50 units every 24 hours in the morning * Correctional Insulin: Novolog Correction per scale ACHS Goal Range: Low 110 mg/dL - High 140 mg/dL Correction Factor: 9 mg/dL/unit * Prandial insulin: Per carb ratio of 1 unit per 3 grams CHO consumed Outpatient Anti-Diabetic Meds Humulin N 75 units in the morning and sliding scale Assessment & Plan ASSESSMENT: * See progress note from 03/29/17 for more background info, in short: * Pt receiving SQ basal bolus insulin regimen for hyperglycemia secondary to baseline DM (outpatient regimen on hold), stress, and currently receiving Solu- Medrol 40 mg IV qD * Patient is currently receiving an average of 130 (received 160 units yesterday ) units of insulin per day * 50 units of basal insulin * 117 units of prandial/correctional insulin * BSGs ranging 93 - 334 mg/dl over the past 24hrs * Changes needed to insulin regimen: * AM Fasting BSG = 65 (corrected 148) mg/dl. This is below goal range for patient based on inpatient targets and co-morbidities. The patient did have a headache with the lower blood sugar and ate a snack this morning. The low blood sugar is most likely from over-correction yesterday (patient received 30 more units than typical). Still though due to the patient's poor prognosis, will reduce Lantus slightly if blood sugar less than 140 mg/dL tomorrow. * Post-prandial BSGs were okay for breakfast and lunch but then extremely elevated for dinner and bedtime. Patient's family most likely brought snacks in at this time. Loosened correction factor slightly to prevent stacking of Novolog. * Total daily dose = ~130 (prandially weighted) units. Adjusted as appropriate. PLAN FOR INPATIENT GLYCEMIC CONTROL: * Changing Lantus to 45-50 units SQ qAM * Loosening correction factor to 10 mg/dL/unit * Continuing carb ratio of 1 unit per 3 grams CHO consumed * Continuing goal range of Low 110 mg/dL - High 140 mg/dL Thank you.
--- NOTE | 2017-04-01 17:35 | Progress Note ---
Medicine Progress Note Date & Time of Visit: Apr 01, 2017 at 17:27. Subjective Pt was seen and examined Lying in bed Continue requires high flow oxygen to keep sat up Pt said that he feels tired today Objective Last 8 Hrs Date Time Temp Pulse Resp B/P (MAP) Pulse Ox O2 Delivery O2 Flow Rate FiO2 04/01/17 16:45 High Flow Oxygen 15.0 04/01/17 15:53 87 27 98 Nasal Cannula 50.0 60 04/01/17 15:00 36.8 99 16 120/73 (89) 99 High Flow Oxygen 04/01/17 11:36 36.9 108 16 113/63 (80) 95 BiPAP 04/01/17 11:15 107 96 60 04/01/17 11:15 107 27 96 BiPAP/CPAP 60 Physical Exam: Head- atraumatic Eyes- PERRL, EOMI ENT- oropharynx clear Neck- supple, no JVD Lungs- Coarse BS Heart- regular rhythm; no murmur Abdomen- normal bowel sounds, soft Extremities- no calf tenderness Neuro- alert, oriented x 3 Skin- warm & dry Laboratory Results: Last 24 Hours Test 03/31/17 19:09 04/01/17 00:01 04/01/17 04:07 04/01/17 04:31 Bedside Glucose 308 mg/dl 156 mg/dl 65 mg/dl 172 mg/dl Test 04/01/17 06:58 04/01/17 07:32 04/01/17 11:30 04/01/17 16:24 Bedside Glucose 148 mg/dl 121 mg/dl 133 mg/dl 249 mg/dl Assessment & Plan ACUTE ON CHRONIC HYPOXIC RESPIRATORY FAILURE: likely secondary to HCAP, COPD EXACERBATION, HISTORY OF LUNG CA, recent RADIATION PNEUMONITIS -follow cultures; last admission BAL grew meño -for now on empiric Vanc, Cefepime, Levaquin; can likely stop the vanco as MRSA screen negative -continued on IV solu-medrol, weaned to once daily but might be helpful to increase to BID to help with the wheezing -continued on Bipap, nebs; continues to desat quickly without the bipap -in ICU initially, but now in tele as patient is DNI/DNR -It Security Engineer consulted, appreciate recs -It Security Engineer/oncology/palliative care/ hospitalist discussed with the patients POA, [id number] and brother that the patient's chance for recovery is poor - had meeting with family about LTAC - Family concern since the closest facility in in [place] - Will decide in the coming week about LTAC - He is very anxious to try nonrebreather or NC -Continue required high flow oxygen at 50% -Waiting for placement to LTAC POSSIBLE SEPSIS: -lactic acid normal on repeat, but was elevated on admission POC lactic acid -was on IV fluids, now off, BP stable Completed the course of Abx 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, s/p chemo and radiation -Oncology discussed with the patient that he would likely no longer be a candidate for additional chemo given his current condition -Palliative care consulted; appreciate recommendations; patient signed POLST form last admission DNR/DNI which was confirmed by ICU staff after meeting with the family as the patient decided he would not want to have a trach/PEG and understands that an intubation at this point would almost certainly result in trach/PEG RECENT B/L PE AND NEW LUE DVT: -continue Lovenox BID; patient is injecting this himself into his thigh as he refuses subcutaneous injections into his abdomen and insists he takes them at home in his thigh -LUE doppler done due to new edema, + for DVT in the left IJ, left subclavian, left brachial, left basilic, and left axillary veins -Anti-Xa was 0.64 which falls in the therapeutic range -PF4 was checked due to worsening thrombocytopenia and new clots and was negative -discussed with Hem/onc and advised to continue Lovenox as presently taking - Dr. roblero does not plan to start the chemo - He continues to refused the lovenox subq in his abdomen and continues insist to take it in his tight DM TYPE II: -Pharmacy glycemic control consulted, appreciate recommendations -has poor oral intake due to difficulty breathing, even while on high flow -was very well controlled as of recent HbA1c from earlier this month -patient is very fixated on his insulin and management of diabetes and often forgets the prior discussions about how in the hospital he needs assistance and this is why glycemic pharmacy is managing ATRIAL FIBRILLATION: -on metoprolol and Lovenox already -Stable CHRONIC BACK PAIN: -continued on methadone ANXIETY: -on IV ativan q 4 hours + valium BID -was initially on Precedex drip for anxiety and was changed to ativan and valium -Consulted Psych to assist with management of anxiety and depression, but patient does not want to try gabapentin and requests his medication doses be raised which is risky with his fragile respiratory state -Continue to be anxious once discussing with him about switching home or trial of NC or non rebreather DVT PX on LOVENOX subq CODE STATUS DNR Disposition Waiting for placement Continued [facility] stay due to: home environment unsafe for pt, other Discharge planning: uncertain Current Inpatient Medications: Current Inpatient Medications Medications (Trade) Dose Ordered Sig/Prince Route Start Time Stop Time Status Last Admin Dose Admin Miscellaneous Information (Consult Glycemic Management Pharmacy) 1 ea DAILY PRN N/A 03/22/17 03:53 04/21/17 03:52 Diazepam (Valium Tab) 2 mg BID PRN PO 03/22/17 02:00 04/21/17 01:59 04/01/17 08:09 2 MG Docusate Sodium (coLACE CAP) 100 mg BID PO 03/22/17 09:00 04/21/17 08:59 03/30/17 21:00 100 MG Magnesium Oxide (Mag-Ox Tab) 400 mg QAM PO 03/22/17 09:00 04/21/17 08:59 04/01/17 08:09 400 MG Metoprolol Succinate (Toprol Xl Tab) 12.5 mg QAM PO 03/22/17 09:00 04/21/17 08:59 04/01/17 08:09 12.5 MG Tramadol HCl (Ultram Tab) 50 mg Q6H PRN PO 03/22/17 02:00 04/21/17 01:59 03/31/17 01:49 50 MG Triamcinolone Acetonide (Nasacort Allergy 24hr) 2 sprays DAILY BJ 03/22/17 09:00 04/21/17 08:59 04/01/17 08:10 2 SPRAYS Ipratropium [place] (Atrovent 0.02% 0.5MG/2.5ML Neb) 0.5 mg Q4R INH 03/22/17 08:00 04/21/17 07:59 04/01/17 15:53 0.5 MG Levalbuterol (Xopenex 1.25MG/ 0.5ML Neb) 1.25 mg Q4R INH 03/22/17 08:00 04/21/17 07:59 04/01/17 15:53 1.25 MG Famotidine (Pepcid Tab) 20 mg BID PO 03/23/17 09:00 04/22/17 08:59 04/01/17 08:09 20 MG Enoxaparin Sodium (Lovenox Inj) 80 mg Q12H SQ 03/23/17 06:00 04/22/17 05:59 04/01/17 17:11 80 MG Lorazepam (Ativan Inj) 1 mg Q4H PRN IV 03/22/17 19:15 04/21/17 19:14 03/30/17 22:19 1 MG Fentanyl Citrate (Fentanyl Inj) 50 mcg Q1HWA PRN IV 03/22/17 19:30 04/05/17 19:29 03/23/17 11:36 50 MCG Methadone HCl (Dolophine Tab) 15 mg Q6H PO 03/25/17 22:00 04/08/17 21:59 04/01/17 16:14 15 MG Zolpidem Tartrate (Ambien Tab) 10 mg DAILY@2200 PO 03/25/17 22:00 04/24/17 21:59 03/31/17 21:30 10 MG Insulin Aspart (novoLOG ASPART) SLIDING SCALE ACHS SC 03/30/17 11:00 04/29/17 10:59 04/01/17 17:14 36 UNITS Methylprednisolone Sodium Succinate 40 mg/Syringe 0.64 ml @ 1.5 mls/min DAILY@0900 IV 03/31/17 09:00 04/30/17 08:59 04/01/17 08:10 1.5 MLS/MIN Lorazepam 1 mg/ Syringe 1 ml @ 1 mls/min Q4H PRN IV 03/31/17 08:45 04/30/17 08:44 04/01/17 12:45 1 MLS/MIN Acetylcysteine (Acetylcysteine Cap) 600 mg BID PO 04/01/17 09:00 05/01/17 08:59 04/01/17 09:31 600 MG Insulin Glargine (Lantus Solostar Pen) SEE PROTOCOL TEXT QAM SC 04/02/17 09:00 05/02/17 08:59
[2017-04-01] MEDS: TRAMADOL HCL 50 MG TAB PO PRN (17:47)
[2017-04-01] MEDS: ZOLPIDEM TARTRATE 10 MG TAB PO SCH (21:45)
[2017-04-02] VITALS (9 sets, daily range): BP systolic 107–132; BP diastolic 73–90; PULSE 101–116; TEMP 36.5–37.4; O2SAT 84–98
[2017-04-02] MEDS: IPRATROPIUM BROMIDE NEB SOLN 0.02% 2.5 ML VIAL INH SCH ×5 (03:08→19:17)
[2017-04-02] MEDS: LEVALBUTEROL 1.25MG/0.5ML NEB INH SCH ×5 (03:08→19:17)
[2017-04-02] MEDS: METHADONE HCL 10 MG TAB PO SCH ×4 (03:54→22:31)
[2017-04-02] MEDS: ENOXAPARIN 80 MG/0.8 ML SYR SQ SCH ×2 (06:04→17:13)
[2017-04-02] MEDS: MAGNESIUM OXIDE 400 MG TAB PO SCH (07:36)
[2017-04-02] MEDS: METHYLPREDNISOLONE IV 40 MG in SYRINGE 0 ML IV SCH (07:36)
[2017-04-02] MEDS: TRIAMCINOLONE ACET NASAL SPRAY 10.8ML BTL NAE SCH (07:36)
[2017-04-02] MEDS: ACETYLCYSTEINE 600 MG CAP PO SCH ×2 (07:36→21:41)
[2017-04-02] MEDS: FAMOTIDINE 20 MG TAB PO SCH ×2 (07:37→21:49)
[2017-04-02] MEDS: DOCUSATE SODIUM 100 MG CAP PO SCH ×2 (07:37→21:00)
[2017-04-02] MEDS: LORAZEPAM INJ 1 MG in SYRINGE 0.5 ML IV PRN ×2 (07:37→12:03)
[2017-04-02] MEDS: METOPROLOL SUCC 25MG EXT REL TAB PO SCH (07:39)
[2017-04-02] MEDS: INSULIN ASPART 100 UNITS/ML 3 ML PEN SC SCH ×4 (07:54→21:54)
[2017-04-02] MEDS ORDERED: INSULIN GLARGINE SOLOSTAR 100 UNITS/ML 3 ML PEN SC SCH (09:00)
[2017-04-02 11:22] LABS: HEMOGLOBIN 11.3 g/dL (14.0-18.0); MEAN CORPUSCULAR HEMOGLOBIN 26.5 pg (25-34); MEAN CORPUSCULAR HGB CONC 29.7 g/dl (32-36); MEAN PLATELET VOLUME 10.2 fL (7.4-10.4); PLATELET COUNT 246 K/uL (130-400); RED CELL DISTRIBUTION WIDTH CV 17.4 % (11.5-14.5)
[2017-04-02 11:47] LABS: CALCIUM 9.5 mg/dl (8.5-10.1); CREATININE 0.59 mg/dl (0.60-1.40); PHOSPHORUS 2.2 mg/dl (2.5-4.9); POTASSIUM 4.3 mmol/L (3.5-5.1)
[2017-04-02] MEDS: TRAMADOL HCL 50 MG TAB PO PRN (12:04)
--- NOTE | 2017-04-02 14:44 | Progress Note ---
Internal Med Progress Note Date of Service: Apr 02, 2017. Provider Documentation: SUBJECTIVE: The patient was seen and examined Remains critical In SOB and in minimal distress at rest OBJECTIVE: Vital Signs-as noted below Exam: General-Minimal distress at rest Eyes-normal ENT-normal Neck-supple Lungs-decreased breath sound bilaterally Heart-Regular,no murmur Abdomen-Benign,no masses,bowel sound present Extremities-trace edema bilaterally Neuro-AA Generally weak Lab data as noted below. ASSESSMENT & PLAN: ACUTE ON CHRONIC HYPOXIC RESPIRATORY FAILURE: Secondary to HCAP, COPD EXACERBATION, HISTORY OF LUNG CA, recent RADIATION PNEUMONITIS -follow cultures; last admission BAL grew meño -Was on empiric Vanc, Cefepime, Levaquin; can likely stop the vanco as MRSA screen negative -Has been on IV solu-medrol, weaned to once daily but might be helpful to increase to BID to help with the wheezing -continued on Bipap, nebs; continues to desaturate quickly without the BIPAP -Bench Tool Maker consulted, appreciate recs -Has had discussion with the providers involved and POA by the outgoing Hospitalist and agreed to LTAC - Will decide in the coming week about LTAC -Continue required high flow oxygen at 50% -Waiting for placement to LTAC -Remains critical -Patient is refusing treatment at times POSSIBLE SEPSIS: -lactic acid normal on repeat, but was elevated on admission POC lactic acid -was on IV fluids, now off, BP stable -Completed the course of Abx 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, s/p chemo and radiation -Oncology discussed with the patient that he would likely no longer be a candidate for additional chemo given his current condition -Palliative care consulted; appreciate recommendations; patient signed POLST form last admission DNR/DNI which was confirmed by ICU staff after meeting with the family as the -patient decided he would not want to have a trach/PEG and understands that an intubation at this point would almost certainly result in trach/PEG RECENT B/L PE AND NEW LUE DVT: -continue Lovenox BID; patient is injecting this himself into his thigh as he refuses subcutaneous injections into his abdomen and insists he takes them at home in his thigh -LUE Doppler done due to new edema, + for DVT in the left IJ, left subclavian, left brachial, left basilic, and left axillary veins -Anti-Xa was 0.64 which falls in the therapeutic range -PF4 was checked due to worsening thrombocytopenia and new clots and was negative -discussed with Hem/onc and advised to continue Lovenox as presently taking - Dr. roblero does not plan to start the chemo - He continues to refused the Lovenox subq in his abdomen and continues insist to take it in his tight DM TYPE II: -Pharmacy glycemic control consulted, appreciate recommendations -has poor oral intake due to difficulty breathing, even while on high flow -was very well controlled as of recent HbA1c from earlier this month -patient is very fixated on his insulin and management of diabetes and often forgets the prior discussions about how in the hospital he needs assistance and this is why glycemic pharmacy is managing ATRIAL FIBRILLATION: -on metoprolol and Lovenox already -Stable CHRONIC BACK PAIN: -continued on methadone ANXIETY: -on IV Ativan q 4 hours + Valium BID -was initially on Precedex drip for anxiety and was changed to ativan and valium -Consulted Psych to assist with management of anxiety and depression, but patient does not want to try gabapentin and requests his medication doses be raised which is risky with his fragile respiratory state DVT PX on LOVENOX subq CODE STATUS DNR Disposition Waiting for placement Continued [facility] stay due to: home environment unsafe for pt, other Discharge planning: uncertain Prognosis Poor Vital Signs: Date Time Temp Pulse Resp B/P (MAP) Pulse Ox O2 Delivery O2 Flow Rate FiO2 04/02/17 14:33 108 25 98 BiPAP/CPAP 70 04/02/17 14:33 108 98 70 04/02/17 13:02 95 Mask 15.0 04/02/17 11:18 108 23 94 Nasal Cannula 50.0 80 04/02/17 08:45 High Flow Oxygen 50.0 04/02/17 07:38 37.4 116 24 130/73 (92) 84 High Flow Oxygen 04/02/17 07:11 102 23 Nasal Cannula 50.0 80 04/02/17 04:03 36.5 106 22 107/90 (96) 92 High Flow Oxygen 50.0 80 04/02/17 03:08 104 23 97 BiPAP/CPAP 60 04/02/17 00:00 BiPAP 04/01/17 23:35 36.6 111 20 132/78 (96) 93 High Flow Oxygen 50.0 80 04/01/17 23:14 114 96 60 04/01/17 23:13 114 22 96 BiPAP/CPAP 60 04/01/17 20:40 103 20 98 Nasal Cannula 50.0 80 04/01/17 20:03 36.4 104 20 110/67 (81) 92 Room Air 04/01/17 20:00 High Flow Oxygen 50.0 80 04/01/17 16:45 High Flow Oxygen 15.0 04/01/17 15:53 87 27 98 Nasal Cannula 50.0 60 04/01/17 15:00 36.8 99 16 120/73 (89) 99 High Flow Oxygen Lab Results: Results Past 24 Hours Test 04/01/17 16:24 04/01/17 20:18 04/02/17 07:41 04/02/17 11:09 Range/Units Bedside Glucose 249 112 118 70-99 mg/dl White Blood Count 15.40 4.8-10.8 K/uL Red Blood Count 4.27 4.7-6.1 M/uL Hemoglobin 11.3 14.0-18.0 g/dL Hematocrit 38.0 42-52 % Mean Corpuscular Volume 89.0 80-100 fL Mean Corpuscular Hemoglobin 26.5 25-34 pg Mean Corpuscular Hemoglobin Concent 29.7 32-36 g/dl RDW Standard Deviation 57.0 36.4-46.3 fL RDW Coefficient of Variation 17.4 11.5-14.5 % Platelet Count 246 130-400 K/uL Mean Platelet Volume 10.2 7.4-10.4 fL Sodium Level 135 136-145 mmol/L Potassium Level 4.3 3.5-5.1 mmol/L Chloride Level 92 98-107 mmol/L Carbon Dioxide Level 44 21-32 mmol/L Anion Gap -1.0 3-11 mmol/L Blood Urea Nitrogen 22 7-18 mg/dl Creatinine 0.59 0.60-1.40 mg/dl Est Creatinine Clear Calc Drug Dose 197.7 ml/min Estimated GFR () 133.0 Estimated GFR (Non- 114.8 BUN/Creatinine Ratio 37.8 10-20 Random Glucose 171 70-99 mg/dl Calcium Level 9.5 8.5-10.1 mg/dl Phosphorus Level 2.2 2.5-4.9 mg/dl Magnesium Level 2.0 1.8-2.4 mg/dl Test 04/02/17 11:42 Range/Units Bedside Glucose 160 70-99 mg/dl
[2017-04-02] MEDS: DIAZEPAM 2MG TAB PO PRN (21:48)
[2017-04-02] MEDS: ZOLPIDEM TARTRATE 10 MG TAB PO SCH (22:32)
[2017-04-03] VITALS (12 sets, daily range): BP systolic 103–129; BP diastolic 65–78; PULSE 86–114; TEMP 36.5–37.1; O2SAT 89–98; BMI 32.4
[2017-04-03] MEDS: LEVALBUTEROL 1.25MG/0.5ML NEB INH SCH ×6 (01:11→23:00)
[2017-04-03] MEDS: IPRATROPIUM BROMIDE NEB SOLN 0.02% 2.5 ML VIAL INH SCH ×6 (01:11→23:00)
[2017-04-03] MEDS: LORAZEPAM INJ 1 MG in SYRINGE 0.5 ML IV PRN ×2 (01:30→13:48)
[2017-04-03] MEDS: METHADONE HCL 10 MG TAB PO SCH ×4 (06:23→23:27)
[2017-04-03] MEDS: ENOXAPARIN 80 MG/0.8 ML SYR SQ SCH ×2 (06:23→17:23)
[2017-04-03] MEDS: DOCUSATE SODIUM 100 MG CAP PO SCH ×3 (08:12→21:00)
[2017-04-03] MEDS: METHYLPREDNISOLONE IV 40 MG in SYRINGE 0 ML IV SCH (08:13)
[2017-04-03] MEDS: TRAMADOL HCL 50 MG TAB PO PRN ×2 (08:13→17:23)
[2017-04-03] MEDS: MAGNESIUM OXIDE 400 MG TAB PO SCH (08:13)
[2017-04-03] MEDS: TRIAMCINOLONE ACET NASAL SPRAY 10.8ML BTL NAE SCH (08:13)
[2017-04-03] MEDS: ACETYLCYSTEINE 600 MG CAP PO SCH ×3 (08:13→21:35)
[2017-04-03] MEDS: FAMOTIDINE 20 MG TAB PO SCH ×2 (08:13→21:35)
[2017-04-03] MEDS: DIAZEPAM 2MG TAB PO PRN (08:13)
[2017-04-03] MEDS: METOPROLOL SUCC 25MG EXT REL TAB PO SCH (08:13)
[2017-04-03] MEDS: INSULIN ASPART 100 UNITS/ML 3 ML PEN SC SCH ×4 (08:21→21:41)
[2017-04-03] MEDS: INSULIN GLARGINE SOLOSTAR 100 UNITS/ML 3 ML PEN SC SCH (08:22)
--- NOTE | 2017-04-03 10:31 | Pharmacy Progress Note ---
Pharmacy Glycemic Short Note 2 Date of Service Apr 03, 2017. OUTPATIENT ANTIDIABETIC REGIMEN: * Humulin N 75 units AM * Humalog SS * Novolin R 15 TIDM ASSESSMENT: * Patient is currently receiving an average of 81-120 units of insulin per day * 50 units of basal insulin * 40+ units of prandial/correctional insulin * BSGs ranging 92-160 mg/dl over the past 24hrs * Steroids continue at same dose; Methylprednisolone 40mg IV daily * Fasting BG at goal on Lantus 50 units qAM. * Pre-lunch BG continues to be highest value , therefore, will tighten CR for breakfast only PLAN FOR INPATIENT GLYCEMIC CONTROL: * Basal insulin * Continue Lantus 50 units qAM * Bolus insulin: tighten CR only got breakfast * Continue same NovoLog per scale ACHS or Q6hrs while NPO * Goal Range: Low 110 mg/dL - High 140 mg/dL * Correction Factor: 10 mg/dL/unit * Prandial insulin per carb ratio of 1 unit per 3 grams CHO consumed for breakfast only * Prandial insulin per carb ratio of 1 unit per 4 grams CHO consumed for lunch , dinner, and HS
--- NOTE | 2017-04-03 13:21 | Progress Note ---
Internal Med Progress Note Date of Service: Apr 03, 2017. Provider Documentation: SUBJECTIVE: The patient was seen and examined Remains critical but stable Much better today Denies any significant symptoms OBJECTIVE: Vital Signs-as noted below Exam: General-Minimal distress at rest Eyes-normal ENT-normal Neck-supple Lungs-decreased breath sound bilaterally Heart-Regular,no murmur Abdomen-Benign,no masses,bowel sound present Extremities-trace edema bilaterally Neuro-AA Generally weak Lab data as noted below. ASSESSMENT & PLAN: ACUTE ON CHRONIC HYPOXIC RESPIRATORY FAILURE: Secondary to HCAP, COPD EXACERBATION, HISTORY OF LUNG CA, recent RADIATION PNEUMONITIS -follow cultures; last admission BAL grew meño -Was on empiric Vanc, Cefepime, Levaquin; can likely stop the vanco as MRSA screen negative -Has been on IV solu-medrol, weaned to once daily but might be helpful to increase to BID to help with the wheezing -continued on Bipap, nebs; continues to desaturate quickly without the BIPAP -Airline Station Agent consulted, appreciate recs -Has had discussion with the providers involved and POA by the outgoing Hospitalist and agreed to LTAC - Will decide in the coming week about LTAC -Continue required high flow oxygen at 50% -Waiting for placement to LTAC -Remains critical but stable -Patient is refusing treatment at times -Much better today POSSIBLE SEPSIS: -lactic acid normal on repeat, but was elevated on admission POC lactic acid -was on IV fluids, now off, BP stable -Completed the course of Abx -No more infection 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, s/p chemo and radiation -Oncology discussed with the patient that he would likely no longer be a candidate for additional chemo given his current condition -Palliative care consulted; appreciate recommendations; patient signed POLST form last admission DNR/DNI which was confirmed by ICU staff after meeting with the family as the -patient decided he would not want to have a trach/PEG and understands that an intubation at this point would almost certainly result in trach/PEG RECENT B/L PE AND NEW LUE DVT: -continue Lovenox BID; patient is injecting this himself into his thigh as he refuses subcutaneous injections into his abdomen and insists he takes them at home in his thigh -LUE Doppler done due to new edema, + for DVT in the left IJ, left subclavian, left brachial, left basilic, and left axillary veins -Anti-Xa was 0.64 which falls in the therapeutic range -PF4 was checked due to worsening thrombocytopenia and new clots and was negative -discussed with Hem/onc and advised to continue Lovenox as presently taking - Dr. roblero does not plan to start the chemo - He continues to refused the Lovenox subq in his abdomen and continues insist to take it in his thigh DM TYPE II: -Pharmacy glycemic control consulted, appreciate recommendations -has poor oral intake due to difficulty breathing, even while on high flow -was very well controlled as of recent HbA1c from earlier this month -patient is very fixated on his insulin and management of diabetes and often forgets the prior discussions about how in the hospital he needs assistance and this is why glycemic pharmacy is managing -Blood sugar remains reasonably stable ATRIAL FIBRILLATION: -on metoprolol and Lovenox already -Stable CHRONIC BACK PAIN: -continued on methadone -Remains stable ANXIETY: -on IV Ativan q 4 hours + Valium BID -was initially on Precedex drip for anxiety and was changed to ativan and valium -Consulted Psych to assist with management of anxiety and depression, but patient does not want to try gabapentin and requests his medication doses be raised which is risky with his fragile respiratory state DVT PX on LOVENOX subq CODE STATUS DNR Disposition Waiting for placement Continued [facility] stay due to: home environment unsafe for pt, other Discharge planning: uncertain Prognosis Poor Awaiting LTAC placement Vital Signs: Date Time Temp Pulse Resp B/P (MAP) Pulse Ox O2 Delivery O2 Flow Rate FiO2 04/03/17 11:32 108 24 93 Nasal Cannula 50.0 60 04/03/17 08:00 High Flow Oxygen 50.0 60 04/03/17 07:45 36.8 105 20 122/78 (93) 91 High Flow Oxygen 04/03/17 07:43 104 24 89 Nasal Cannula 50.0 60 04/03/17 01:11 112 24 93 BiPAP/CPAP 60 04/03/17 00:42 37.0 102 20 129/73 (91) 92 High Flow Oxygen 50 04/03/17 00:00 High Flow Oxygen 50.0 04/02/17 19:20 102 24 93 Nasal Cannula 60 04/02/17 16:15 High Flow Oxygen 50.0 04/02/17 15:53 36.5 101 20 132/81 (98) 97 04/02/17 14:33 108 25 98 BiPAP/CPAP 70 04/02/17 14:33 108 98 70 Lab Results: Results Past 24 Hours Test 04/02/17 16:34 04/02/17 20:03 04/03/17 07:31 04/03/17 11:09 Range/Units Bedside Glucose 92 149 142 350 70-99 mg/dl
[2017-04-03] MEDS ORDERED: CLONAZEPAM 0.5 MG TAB PO ONE (17:15)
[2017-04-03] MEDS: QUETIAPINE FUMARATE 25 MG TAB PO SCH (22:14)
[2017-04-03] MEDS: ZOLPIDEM TARTRATE 10 MG TAB PO SCH (22:14)
[2017-04-04] VITALS (11 sets, daily range): BP systolic 111–123; BP diastolic 69–76; PULSE 97–108; TEMP 36.4–37; O2SAT 81–99
[2017-04-04] MEDS: LEVALBUTEROL 1.25MG/0.5ML NEB INH SCH ×6 (03:40→23:14)
[2017-04-04] MEDS: IPRATROPIUM BROMIDE NEB SOLN 0.02% 2.5 ML VIAL INH SCH ×6 (03:40→23:14)
[2017-04-04] MEDS: ENOXAPARIN 80 MG/0.8 ML SYR SQ SCH ×2 (06:22→17:08)
[2017-04-04] MEDS: METHADONE HCL 10 MG TAB PO SCH ×3 (06:22→17:08)
[2017-04-04 07:54] LABS: HEMATOCRIT 38.9 % (42-52); HEMOGLOBIN 11.3 g/dL (14.0-18.0); MEAN CELL VOLUME 89.6 fL (80-100); MEAN PLATELET VOLUME 10.3 fL (7.4-10.4); PLATELET COUNT 237 K/uL (130-400); RED CELL DISTRIBUTION WIDTH CV 17.3 % (11.5-14.5); RED CELL DISTRIBUTION WIDTH SD 57.3 fL (36.4-46.3); WHITE BLOOD COUNT 14.26 K/uL (4.8-10.8)
[2017-04-04] MEDS: DOCUSATE SODIUM 100 MG CAP PO SCH ×2 (08:08→20:08)
[2017-04-04] MEDS: CLONAZEPAM 0.5 MG TAB PO SCH ×2 (08:22→21:08)
[2017-04-04] MEDS: FAMOTIDINE 20 MG TAB PO SCH ×2 (08:22→20:08)
[2017-04-04] MEDS: METOPROLOL SUCC 25MG EXT REL TAB PO SCH (08:22)
[2017-04-04] MEDS: ACETYLCYSTEINE 600 MG CAP PO SCH ×2 (08:22→20:09)
[2017-04-04] MEDS: MAGNESIUM OXIDE 400 MG TAB PO SCH (08:22)
[2017-04-04] MEDS: METHYLPREDNISOLONE IV 40 MG in SYRINGE 0 ML IV SCH (08:22)
[2017-04-04] MEDS: TRIAMCINOLONE ACET NASAL SPRAY 10.8ML BTL NAE SCH (08:23)
[2017-04-04 08:27] LABS: CALCIUM 9.9 mg/dl (8.5-10.1); CREATININE 0.63 mg/dl (0.60-1.40); POTASSIUM 4.6 mmol/L (3.5-5.1)
[2017-04-04] MEDS: TRAMADOL HCL 50 MG TAB PO PRN ×3 (08:31→22:21)
[2017-04-04] MEDS: INSULIN ASPART 100 UNITS/ML 3 ML PEN SC SCH ×4 (08:31→22:28)
[2017-04-04] MEDS: INSULIN GLARGINE SOLOSTAR 100 UNITS/ML 3 ML PEN SC SCH (08:31)
[2017-04-04 08:48] LABS: PHOSPHORUS 3.4 mg/dl (2.5-4.9)
--- NOTE | 2017-04-04 14:56 | Progress Note ---
Internal Med Progress Note Date of Service: Apr 04, 2017. Provider Documentation: SUBJECTIVE: The patient was seen and examined Remains critical but stable Was evaluated by the [facility] Patient does not want o\to go there OBJECTIVE: Vital Signs-as noted below Exam: General-Minimal distress at rest Depressed Eyes-normal ENT-normal Neck-supple Lungs-decreased breath sound bilaterally Heart-Regular,no murmur Abdomen-Benign,no masses,bowel sound present Extremities-trace edema bilaterally Neuro-AA Generally weak Lab data as noted below. ASSESSMENT & PLAN: ACUTE ON CHRONIC HYPOXIC RESPIRATORY FAILURE: Secondary to HCAP, COPD EXACERBATION, HISTORY OF LUNG CA, recent RADIATION PNEUMONITIS -follow cultures; last admission BAL grew meño -Was on empiric Vanc, Cefepime, Levaquin; can likely stop the vanco as MRSA screen negative -Has been on IV solu-medrol, weaned to once daily but might be helpful to increase to BID to help with the wheezing -continued on Bipap, nebs; continues to desaturate quickly without the BIPAP -Dressing Room Attendant consulted, appreciate recs -Has had discussion with the providers involved and POA by the outgoing Hospitalist and agreed to LTAC - Will decide in the coming week about LTAC -Continue required high flow oxygen at 50% -Waiting for placement to LTAC -Remains critical but stable -Patient is refusing treatment at times -remains stable -Does not want to go to LTAC -reevaluated by Respiratory to assess the need for High Flow oxygen -likely to be discharged to [facility] POSSIBLE SEPSIS: -lactic acid normal on repeat, but was elevated on admission POC lactic acid -was on IV fluids, now off, BP stable -Completed the course of Abx -No more infection 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, s/p chemo and radiation -Oncology discussed with the patient that he would likely no longer be a candidate for additional chemo given his current condition -Palliative care consulted; appreciate recommendations; patient signed POLST form last admission DNR/DNI which was confirmed by ICU staff after meeting with the family as the -patient decided he would not want to have a trach/PEG and understands that an intubation at this point would almost certainly result in trach/PEG -No further treatment RECENT B/L PE AND NEW LUE DVT: -continue Lovenox BID; patient is injecting this himself into his thigh as he refuses subcutaneous injections into his abdomen and insists he takes them at home in his thigh -LUE Doppler done due to new edema, + for DVT in the left IJ, left subclavian, left brachial, left basilic, and left axillary veins -Anti-Xa was 0.64 which falls in the therapeutic range -PF4 was checked due to worsening thrombocytopenia and new clots and was negative -discussed with Hem/onc and advised to continue Lovenox as presently taking - Dr. roblero does not plan to start the chemo - He continues to refused the Lovenox subq in his abdomen and continues insist to take it in his thigh DM TYPE II: -Pharmacy glycemic control consulted, appreciate recommendations -has poor oral intake due to difficulty breathing, even while on high flow -was very well controlled as of recent HbA1c from earlier this month -patient is very fixated on his insulin and management of diabetes and often forgets the prior discussions about how in the hospital he needs assistance and this is why glycemic pharmacy is managing -Blood sugar remains reasonably stable ATRIAL FIBRILLATION: -on metoprolol and Lovenox already -Stable CHRONIC BACK PAIN: -continued on methadone -Remains stable ANXIETY: -on IV Ativan q 4 hours + Valium BID -was initially on Precedex drip for anxiety and was changed to ativan and valium -Consulted Psych to assist with management of anxiety and depression, but patient does not want to try gabapentin and requests his medication doses be raised which is risky with his fragile respiratory state -Diazepam is stopped and Clonidine started DVT PX on LOVENOX subq CODE STATUS DNR Disposition Waiting for placement Continued [facility] stay due to: home environment unsafe for pt, other Discharge planning: uncertain Prognosis Poor Awaiting LTAC placement-does not want ot go Has had a long discussion with the Sis-in law Vital Signs: Date Time Temp Pulse Resp B/P (MAP) Pulse Ox O2 Delivery O2 Flow Rate FiO2 04/04/17 14:19 102 20 81 Room Air 04/04/17 11:16 100 20 93 Nasal Cannula 50.0 50 04/04/17 08:00 High Flow Oxygen 50.0 60 04/04/17 07:35 97 20 96 BiPAP/CPAP 50 04/04/17 07:28 36.6 101 20 111/76 (88) 99 BiPAP 04/04/17 03:42 97 98 60 04/04/17 03:41 97 20 98 BiPAP/CPAP 60 04/04/17 00:00 BiPAP 04/03/17 23:58 106 98 60 04/03/17 23:57 36.5 102 20 103/65 (78) 97 High Flow Oxygen 50.0 79 04/03/17 23:00 86 22 98 Nasal Cannula 50.0 60 04/03/17 20:27 108 22 93 Nasal Cannula 50.0 60 04/03/17 16:09 96 High Flow Oxygen 50.0 60 04/03/17 15:27 37.1 105 18 115/71 (86) 96 Trach Collar 04/03/17 15:13 114 24 92 Nasal Cannula 50.0 60 Lab Results: Results Past 24 Hours Test 04/03/17 16:31 04/03/17 19:44 04/04/17 07:26 04/04/17 07:40 Range/Units Bedside Glucose 76 170 133 70-99 mg/dl White Blood Count 14.26 4.8-10.8 K/uL Red Blood Count 4.34 4.7-6.1 M/uL Hemoglobin 11.3 14.0-18.0 g/dL Hematocrit 38.9 42-52 % Mean Corpuscular Volume 89.6 80-100 fL Mean Corpuscular Hemoglobin 26.0 25-34 pg Mean Corpuscular Hemoglobin Concent 29.0 32-36 g/dl RDW Standard Deviation 57.3 36.4-46.3 fL RDW Coefficient of Variation 17.3 11.5-14.5 % Platelet Count 237 130-400 K/uL Mean Platelet Volume 10.3 7.4-10.4 fL Sodium Level 139 136-145 mmol/L Potassium Level 4.6 3.5-5.1 mmol/L Chloride Level 91 98-107 mmol/L Carbon Dioxide Level 44 21-32 mmol/L Anion Gap 4.0 3-11 mmol/L Blood Urea Nitrogen 24 7-18 mg/dl Creatinine 0.63 0.60-1.40 mg/dl Est Creatinine Clear Calc Drug Dose 185.2 ml/min Estimated GFR () 129.5 Estimated GFR (Non- 111.7 BUN/Creatinine Ratio 38.4 10-20 Random Glucose 140 70-99 mg/dl Calcium Level 9.9 8.5-10.1 mg/dl Phosphorus Level 3.4 2.5-4.9 mg/dl Magnesium Level 2.1 1.8-2.4 mg/dl Test 04/04/17 11:36 Range/Units Bedside Glucose 274 70-99 mg/dl
--- NOTE | 2017-04-04 14:59 | Palliative Care Progress Note ---
Palliative Care Progress Note Date of Service Apr 04, 2017. Subjective Pt evaluation today including: conversation w/ patient, conversation w/ family (spoke with [id number] Izabel yesterday), physical exam, chart review, conversation w/ area development consultant (Dr. Sarkar) Pain: none at this time PO Intake: tolerating diet Voiding: johns catheter in place -Patient looks less alert to me today. Appears weaker and short of breath at rest. -Roddy continues to say that he doesn't understand why we can't get him better. Dr. Sarkar was in room with me and also explained to patient again that options for cancer treatment are exhausted and we are merely giving supportive care at this time. -Still requiring bipap and high-flow nasal cannula. -Was evaluated yesterday by [facility]. -Spoke with NATALIE Izabel Carcamo on phone yesterday for about 20 minutes, mostly just to give support. Review of Systems Constitutional: + weakness Respiratory: + cough, + shortness of breath, No sputum Cardiac: No chest pain, No edema Abdomen: No pain, No nausea, No vomiting Male : No problem reported Psychiatric: + depression symptoms, + anxiety Objective Vital Signs Date Time Temp Pulse Resp B/P (MAP) Pulse Ox O2 Delivery O2 Flow Rate FiO2 04/04/17 14:19 102 20 81 Room Air 04/04/17 11:16 100 20 93 Nasal Cannula 50.0 50 04/04/17 08:00 High Flow Oxygen 50.0 60 04/04/17 07:35 97 20 96 BiPAP/CPAP 50 04/04/17 07:28 36.6 101 20 111/76 (88) 99 BiPAP 04/04/17 03:42 97 98 60 04/04/17 03:41 97 20 98 BiPAP/CPAP 60 04/04/17 00:00 BiPAP 04/03/17 23:58 106 98 60 04/03/17 23:57 36.5 102 20 103/65 (78) 97 High Flow Oxygen 50.0 79 04/03/17 23:00 86 22 98 Nasal Cannula 50.0 60 04/03/17 20:27 108 22 93 Nasal Cannula 50.0 60 04/03/17 16:09 96 High Flow Oxygen 50.0 60 04/03/17 15:27 37.1 105 18 115/71 (86) 96 Trach Collar 04/03/17 15:13 114 24 92 Nasal Cannula 50.0 60 Physical Exam General Appearance: no apparent distress, + pertinent finding (chronically ill appearing) ENT: hearing grossly normal Neck: supple, no JVD Respiratory/Chest: no respiratory distress, no accessory muscle use, + decreased breath sounds (bilateral bases) Cardiovascular: + tachycardia, + normal peripheral pulses Abdomen: normal bowel sounds, non tender, soft Neurologic/Psychiatric: alert, normal mood/affect, oriented x 3, + depressed affect Laboratory Results Last 24 Hours Test 04/03/17 16:31 04/03/17 19:44 04/04/17 07:26 04/04/17 07:40 Bedside Glucose 76 mg/dl 170 mg/dl 133 mg/dl White Blood Count 14.26 K/uL Red Blood Count 4.34 M/uL Hemoglobin 11.3 g/dL Hematocrit 38.9 % Mean Corpuscular Volume 89.6 fL Mean Corpuscular Hemoglobin 26.0 pg Mean Corpuscular Hemoglobin Concent 29.0 g/dl RDW Standard Deviation 57.3 fL RDW Coefficient of Variation 17.3 % Platelet Count 237 K/uL Mean Platelet Volume 10.3 fL Sodium Level 139 mmol/L Potassium Level 4.6 mmol/L Chloride Level 91 mmol/L Carbon Dioxide Level 44 mmol/L Anion Gap 4.0 mmol/L Blood Urea Nitrogen 24 mg/dl Creatinine 0.63 mg/dl Est Creatinine Clear Calc Drug Dose 185.2 ml/min Estimated GFR () 129.5 Estimated GFR (Non- 111.7 BUN/Creatinine Ratio 38.4 Random Glucose 140 mg/dl Calcium Level 9.9 mg/dl Phosphorus Level 3.4 mg/dl Magnesium Level 2.1 mg/dl Test 04/04/17 11:36 Bedside Glucose 274 mg/dl Assessment and Plan Problem list: SOB Anxiety Depression Back pain, chronic Respiratory failure, acute on chronic- requiring bipap and high-flow nasal cannula, desaturates quickly without high level of support 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 Gale Pneumonia vs. pneumonitis Hx recent DVT/PE Goals of care (Z51.5) Palliative care recs: -Patient is level 5- DNR/DNI. -Remains on Bipap and high-flow nasal cannula. Desaturates quickly when either are removed. -Evaluated yesterday by [facility]. Awaiting determination. Patient states he does not want to be that far away from family and does not favor going there, however he still wants to try to "get better." -Continue methadone and lorazepam as ordered. Could also increase lorazepam to 2mg IV Q4h PRN anxiety. 1mg does not seem to be doing much. -Patient has verbalized his fear of dying. His behavioral health rn and family visit regularly. While patient seems to be in denial, he also will say things about knowing he is dying. He called several of his friends last evening to tell them he "wasn't going to be around much longer." When asked if he would like to be made more comfortable throughout the dying process, he became upset and said, "Everyone just wants to give up on me. I've never been wanted." -The medical team is merely continuing supportive care at this point. Patient is stable, but critically ill. -I'm uncertain of how to proceed with the patient from here. After determination is made by the LTACH, patient will need to decide what he would like to do: LTACH vs. hospice vs. continuing current care as is, but with what goal? I will continue to follow as needed. Palliative Performance Scale: 30 % Continued [facility] stay due to: home environment unsafe for pt, other Discharge planning: uncertain
[2017-04-04] MEDS: QUETIAPINE FUMARATE 25 MG TAB PO SCH (22:21)
[2017-04-04] MEDS: ZOLPIDEM TARTRATE 10 MG TAB PO SCH (22:21)
[2017-04-05] VITALS (11 sets, daily range): BP systolic 112–118; BP diastolic 70–72; PULSE 98–108; TEMP 36.7–37; O2SAT 77–99
[2017-04-05] MEDS: METHADONE HCL 10 MG TAB PO SCH ×5 (00:01→23:55)
[2017-04-05] MEDS: IPRATROPIUM BROMIDE NEB SOLN 0.02% 2.5 ML VIAL INH SCH ×6 (03:21→23:11)
[2017-04-05] MEDS: LEVALBUTEROL 1.25MG/0.5ML NEB INH SCH ×6 (03:21→23:11)
[2017-04-05] MEDS: ENOXAPARIN 80 MG/0.8 ML SYR SQ SCH ×2 (06:08→17:30)
[2017-04-05] MEDS: DOCUSATE SODIUM 100 MG CAP PO SCH ×2 (09:00→21:00)
[2017-04-05] MEDS: METHYLPREDNISOLONE IV 40 MG in SYRINGE 0 ML IV SCH (09:02)
[2017-04-05] MEDS: METOPROLOL SUCC 25MG EXT REL TAB PO SCH (09:02)
[2017-04-05] MEDS: FAMOTIDINE 20 MG TAB PO SCH ×2 (09:03→21:05)
[2017-04-05] MEDS: ACETYLCYSTEINE 600 MG CAP PO SCH ×2 (09:03→21:05)
[2017-04-05] MEDS: MAGNESIUM OXIDE 400 MG TAB PO SCH (09:03)
[2017-04-05] MEDS: CLONAZEPAM 0.5 MG TAB PO SCH ×2 (09:13→21:04)
[2017-04-05] MEDS: TRIAMCINOLONE ACET NASAL SPRAY 10.8ML BTL NAE SCH (09:14)
[2017-04-05] MEDS: INSULIN ASPART 100 UNITS/ML 3 ML PEN SC SCH ×4 (09:21→21:19)
[2017-04-05] MEDS: INSULIN GLARGINE SOLOSTAR 100 UNITS/ML 3 ML PEN SC SCH (09:22)
--- NOTE | 2017-04-05 11:17 | Pharmacy Progress Note ---
Pharmacy Glycemic Short Note 2 Date of Service Apr 05, 2017. OUTPATIENT ANTIDIABETIC REGIMEN: * Humulin N 75 units AM * Humalog SS * Novolin R 15 TIDM ASSESSMENT: * Patient received 136 units of insulin total yesterday * 50 units of basal insulin * 86 units of prandial/correctional insulin * BSGs ranging 133-274 mg/dl over the past 24hrs * Steroids continue at same dose; Methylprednisolone 40mg IV daily * Fasting BG at goal on Lantus 50 units qAM. * Pre-lunch BSG was trending to be the highest BSG of the day - however - pt had two BSGs out of goal yesterday lunch and dinner * I want to continue current regimen since there is no trend over the past 48 hours PLAN FOR INPATIENT GLYCEMIC CONTROL: * Basal insulin * Continue Lantus 50 units qAM * Bolus insulin: tighten CR only got breakfast * Continue same NovoLog per scale ACHS or Q6hrs while NPO * Goal Range: Low 110 mg/dL - High 140 mg/dL * Correction Factor: 10 mg/dL/unit * Prandial insulin per carb ratio of 1 unit per 3 grams CHO consumed for breakfast only * Prandial insulin per carb ratio of 1 unit per 4 grams CHO consumed for lunch , dinner, and HS
[2017-04-05] MEDS: TRAMADOL HCL 50 MG TAB PO PRN (16:01)
--- NOTE | 2017-04-05 16:41 | Progress Note ---
Internal Med Progress Note Date of Service: Apr 05, 2017. Provider Documentation: SUBJECTIVE: The patient was seen and examined Remains critical but stable Was evaluated by the [facility] Patient does not want o\to go there Remains stable Did not participate with PT due to increase pain and SOB OBJECTIVE: Vital Signs-as noted below Exam: General-Minimal distress at rest Depressed Eyes-normal ENT-normal Neck-supple Lungs-decreased breath sound bilaterally Heart-Regular,no murmur Abdomen-Benign,no masses,bowel sound present Extremities-trace edema bilaterally Neuro-AA Generally weak Lab data as noted below. ASSESSMENT & PLAN: ACUTE ON CHRONIC HYPOXIC RESPIRATORY FAILURE: Secondary to HCAP, COPD EXACERBATION, HISTORY OF LUNG CA, recent RADIATION PNEUMONITIS -follow cultures; last admission BAL grew meño -Was on empiric Vanc, Cefepime, Levaquin; can likely stop the vanco as MRSA screen negative -Has been on IV solu-medrol, weaned to once daily but might be helpful to increase to BID to help with the wheezing -continued on Bipap, nebs; continues to desaturate quickly without the BIPAP -Meter Installer And Remover consulted, appreciate recs -Has had discussion with the providers involved and POA by the outgoing Hospitalist and agreed to LTAC - Will decide in the coming week about LTAC -Continue required high flow oxygen at 50% -Waiting for placement to LTAC -Remains critical but stable -Patient is refusing treatment at times -remains stable -Does not want to go to LTAC -reevaluated by Respiratory to assess the need for High Flow oxygen -likely to be discharged to [facility] [place] [place] -Remains stable to be discharged POSSIBLE SEPSIS: -lactic acid normal on repeat, but was elevated on admission POC lactic acid -was on IV fluids, now off, BP stable -Completed the course of Abx -No more infection 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, s/p chemo and radiation -Oncology discussed with the patient that he would likely no longer be a candidate for additional chemo given his current condition -Palliative care consulted; appreciate recommendations; patient signed POLST form last admission DNR/DNI which was confirmed by ICU staff after meeting with the family as the -patient decided he would not want to have a trach/PEG and understands that an intubation at this point would almost certainly result in trach/PEG -No further treatment RECENT B/L PE AND NEW LUE DVT: -continue Lovenox BID; patient is injecting this himself into his thigh as he refuses subcutaneous injections into his abdomen and insists he takes them at home in his thigh -LUE Doppler done due to new edema, + for DVT in the left IJ, left subclavian, left brachial, left basilic, and left axillary veins -Anti-Xa was 0.64 which falls in the therapeutic range -PF4 was checked due to worsening thrombocytopenia and new clots and was negative -discussed with Hem/onc and advised to continue Lovenox as presently taking - Dr. roblero does not plan to start the chemo - He continues to refused the Lovenox subq in his abdomen and continues insist to take it in his thigh DM TYPE II: -Pharmacy glycemic control consulted, appreciate recommendations -has poor oral intake due to difficulty breathing, even while on high flow -was very well controlled as of recent HbA1c from earlier this month -patient is very fixated on his insulin and management of diabetes and often forgets the prior discussions about how in the hospital he needs assistance and this is why glycemic pharmacy is managing -Blood sugar remains reasonably stable ATRIAL FIBRILLATION: -on metoprolol and Lovenox already -Stable CHRONIC BACK PAIN: -continued on methadone -Remains stable ANXIETY: -on IV Ativan q 4 hours + Valium BID -was initially on Precedex drip for anxiety and was changed to ativan and valium -Consulted Psych to assist with management of anxiety and depression, but patient does not want to try gabapentin and requests his medication doses be raised which is risky with his fragile respiratory state -Diazepam is stopped and Clonidine started DVT PX on LOVENOX subq CODE STATUS DNR Disposition Waiting for placement Continued [facility] stay due to: home environment unsafe for pt, other Discharge planning: uncertain Prognosis Poor Awaiting LTAC placement-does not want ot go Has had a long discussion with the Sis-in law Awaiting placement Vital Signs: Date Time Temp Pulse Resp B/P (MAP) Pulse Ox O2 Delivery O2 Flow Rate FiO2 04/05/17 15:54 100 96 50 04/05/17 15:49 100 17 96 BiPAP/CPAP 50 04/05/17 15:35 37.0 108 16 113/71 (85) 96 BiPAP 04/05/17 11:23 108 15 94 Nasal Cannula 55.0 70 04/05/17 07:46 High Flow Oxygen 55.0 04/05/17 07:39 99 18 93 Nasal Cannula 60.0 70 04/05/17 07:27 36.7 98 18 118/72 (87) 99 High Flow Oxygen 04/05/17 03:21 108 24 77 Nasal Cannula 50.0 55 04/04/17 23:57 High Flow Oxygen 50.0 BiPAP 04/04/17 23:23 36.4 101 20 123/69 (87) 91 High Flow Oxygen 50.0 50 04/04/17 23:14 102 22 91 Nasal Cannula 50.0 55 04/04/17 19:55 108 20 93 Nasal Cannula 50.0 55 Lab Results: Results Past 24 Hours Test 04/04/17 19:59 04/05/17 07:25 04/05/17 11:28 Range/Units Bedside Glucose 155 125 223 70-99 mg/dl
[2017-04-05] MEDS ORDERED: INSULIN HUMAN REGULAR PER UNIT 10 UNITS in SYRINGE 9.9 ML IV SCH (21:00)
[2017-04-05] MEDS: ZOLPIDEM TARTRATE 10 MG TAB PO SCH (22:22)
[2017-04-05] MEDS: QUETIAPINE FUMARATE 25 MG TAB PO SCH (22:23)
[2017-04-06] VITALS (10 sets, daily range): BP systolic 114–127; BP diastolic 67–80; PULSE 86–108; TEMP 36.6–36.9; O2SAT 91–97
[2017-04-06] MEDS: IPRATROPIUM BROMIDE NEB SOLN 0.02% 2.5 ML VIAL INH SCH ×6 (03:18→23:29)
[2017-04-06] MEDS: LEVALBUTEROL 1.25MG/0.5ML NEB INH SCH ×6 (03:18→23:29)
[2017-04-06] MEDS: ENOXAPARIN 80 MG/0.8 ML SYR SQ SCH ×2 (06:30→17:45)
[2017-04-06] MEDS: METHADONE HCL 10 MG TAB PO SCH ×4 (06:31→23:32)
[2017-04-06] MEDS: DOCUSATE SODIUM 100 MG CAP PO SCH ×2 (08:10→22:12)
[2017-04-06] MEDS: METHYLPREDNISOLONE IV 40 MG in SYRINGE 0 ML IV SCH (08:12)
[2017-04-06] MEDS: TRIAMCINOLONE ACET NASAL SPRAY 10.8ML BTL NAE SCH (08:12)
[2017-04-06] MEDS: ACETYLCYSTEINE 600 MG CAP PO SCH ×2 (08:12→22:11)
[2017-04-06] MEDS: MAGNESIUM OXIDE 400 MG TAB PO SCH (08:13)
[2017-04-06] MEDS: FAMOTIDINE 20 MG TAB PO SCH ×2 (08:13→22:12)
[2017-04-06] MEDS: METOPROLOL SUCC 25MG EXT REL TAB PO SCH (08:13)
[2017-04-06] MEDS: CLONAZEPAM 0.5 MG TAB PO SCH ×2 (08:14→22:10)
[2017-04-06] MEDS: TRAMADOL HCL 50 MG TAB PO PRN ×2 (08:21→13:59)
[2017-04-06] MEDS: INSULIN ASPART 100 UNITS/ML 3 ML PEN SC SCH ×4 (08:22→22:44)
[2017-04-06] MEDS ORDERED: INSULIN GLARGINE SOLOSTAR 100 UNITS/ML 3 ML PEN SC SCH (09:00)
--- NOTE | 2017-04-06 11:01 | Pharmacy Progress Note ---
Pharmacy Glycemic Short Note 2 Date of Service Apr 06, 2017. OUTPATIENT ANTIDIABETIC REGIMEN: * Humulin N 75 units AM * Humalog SS * Novolin R 15 TIDM ASSESSMENT: * Patient received 160 units of insulin total yesterday * 50 units of basal insulin * 110 units of prandial/correctional insulin * BSGs ranging 125-369 mg/dl over the past 24hrs * Steroids continue at same dose; Methylprednisolone 40mg IV daily - going to change to oral prednisone tomorrow. * Insulin regimen will need tapered tomorrow. * Fasting BG elevated on Lantus 50 units qAM. * Will increase dose today to 60 units qAM. * Pre-lunch BSG was trending to be the highest BSG of the day - however - now all post prandial BSGs are elevated secondary to snacking. * Will tighten CF/CR slightly PLAN FOR INPATIENT GLYCEMIC CONTROL: * Basal insulin * Increase to Lantus 60 units SQ x 1 dose this AM and then resume Lantus 50 units qAM tomorrow when steroids tapered * Bolus insulin: tighten CR only for breakfast and lunch * Continue same NovoLog per scale ACHS or Q6hrs while NPO * Goal Range: Low 110 mg/dL - High 140 mg/dL * Correction Factor: 10 mg/dL/unit * Prandial insulin per carb ratio of 1 unit per 3 grams CHO consumed for breakfast & lunch * Prandial insulin per carb ratio of 1 unit per 4 grams CHO consumed for dinner , and HS
--- NOTE | 2017-04-06 16:07 | Progress Note ---
Internal Med Progress Note Date of Service: Apr 06, 2017. Provider Documentation: SUBJECTIVE: The patient was seen and examined Remains critical but stable Denied by [facility] and he does not want to go there Denies any pain and or more SOB OBJECTIVE: Vital Signs-as noted below Exam: General-Minimal distress at rest Depressed Eyes-normal ENT-normal Neck-supple Lungs-decreased breath sound bilaterally Heart-Regular,no murmur Abdomen-Benign,no masses,bowel sound present Extremities-trace edema bilaterally Neuro-AA Generally weak Lab data as noted below. ASSESSMENT & PLAN: ACUTE ON CHRONIC HYPOXIC RESPIRATORY FAILURE: Secondary to HCAP, COPD EXACERBATION, HISTORY OF LUNG CA, recent RADIATION PNEUMONITIS -follow cultures; last admission BAL grew meño -Was on empiric Vanc, Cefepime, Levaquin; can likely stop the vanco as MRSA screen negative -Has been on IV solu-medrol, weaned to once daily but might be helpful to increase to BID to help with the wheezing -continued on Bipap, nebs; continues to desaturate quickly without the BIPAP -Business Insight And Analytics Manager consulted, appreciate recs -Has had discussion with the providers involved and POA by the outgoing Hospitalist and agreed to LTAC - Will decide in the coming week about LTAC -Continue required high flow oxygen at 50% -Waiting for placement to LTAC -Remains critical but stable -Patient is refusing treatment at times -Does not want to go to LTAC and denied -reevaluated by Respiratory to assess the need for High Flow oxygen -likely to be discharged to [facility] -Remains stable to be discharged POSSIBLE SEPSIS: -lactic acid normal on repeat, but was elevated on admission POC lactic acid -was on IV fluids, now off, BP stable -Completed the course of Abx -No more infection 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, s/p chemo and radiation -Oncology discussed with the patient that he would likely no longer be a candidate for additional chemo given his current condition -Palliative care consulted; appreciate recommendations; patient signed POLST form last admission DNR/DNI which was confirmed by ICU staff after meeting with the family as the -patient decided he would not want to have a trach/PEG and understands that an intubation at this point would almost certainly result in trach/PEG -No further treatment -Poor prognosis RECENT B/L PE AND NEW LUE DVT: -continue Lovenox BID; patient is injecting this himself into his thigh as he refuses subcutaneous injections into his abdomen and insists he takes them at home in his thigh -LUE Doppler done due to new edema, + for DVT in the left IJ, left subclavian, left brachial, left basilic, and left axillary veins -Anti-Xa was 0.64 which falls in the therapeutic range -PF4 was checked due to worsening thrombocytopenia and new clots and was negative -discussed with Hem/onc and advised to continue Lovenox as presently taking - Dr. roblero does not plan to start the chemo - He continues to refused the Lovenox subq in his abdomen and continues insist to take it in his thigh DM TYPE II: -Pharmacy glycemic control consulted, appreciate recommendations -has poor oral intake due to difficulty breathing, even while on high flow -was very well controlled as of recent HbA1c from earlier this month -patient is very fixated on his insulin and management of diabetes and often forgets the prior discussions about how in the hospital he needs assistance and this is why glycemic pharmacy is managing -Blood sugar remains reasonably stable ATRIAL FIBRILLATION: -on metoprolol and Lovenox already -Stable -rate is controlled CHRONIC BACK PAIN: -continued on methadone -Remains stable ANXIETY: -on IV Ativan q 4 hours + Valium BID -was initially on Precedex drip for anxiety and was changed to ativan and valium -Consulted Psych to assist with management of anxiety and depression, but patient does not want to try gabapentin and requests his medication doses be raised which is risky with his fragile respiratory state -Diazepam is stopped and Clonidine started DVT PX on LOVENOX subq CODE STATUS DNR Disposition Waiting for placement Continued [facility] stay due to: home environment unsafe for pt, other Discharge planning: uncertain Prognosis Poor Awaiting LTAC placement-does not want ot go Has had a long discussion with the Sis-in law Awaiting placement Vital Signs: Date Time Temp Pulse Resp B/P (MAP) Pulse Ox O2 Delivery O2 Flow Rate FiO2 04/06/17 15:12 36.9 107 20 127/80 (96) 91 High Flow Oxygen 55 04/06/17 11:39 108 16 94 Nasal Cannula 55.0 55 04/06/17 09:34 92 04/06/17 08:00 High Flow Oxygen 55.0 04/06/17 07:49 36.6 99 18 120/74 (89) 96 High Flow Oxygen 04/06/17 07:07 92 16 91 Nasal Cannula 55.0 55 04/06/17 03:19 94 16 91 Nasal Cannula 55.0 55 04/05/17 23:45 High Flow Oxygen 50.0 55 04/05/17 23:34 36.8 106 20 112/70 (84) 97 High Flow Oxygen 50.0 04/05/17 23:14 102 16 93 Nasal Cannula 55.0 55 04/05/17 19:44 104 16 94 Nasal Cannula 55.0 55 04/05/17 16:10 96 High Flow Oxygen 55.0 55 Lab Results: Results Past 24 Hours Test 04/05/17 16:14 04/05/17 20:16 04/06/17 07:39 04/06/17 11:34 Range/Units Bedside Glucose 289 369 210 239 70-99 mg/dl
[2017-04-06] MEDS: ZOLPIDEM TARTRATE 10 MG TAB PO SCH (22:10)
[2017-04-06] MEDS: QUETIAPINE FUMARATE 25 MG TAB PO SCH (22:13)
[2017-04-07] VITALS (10 sets, daily range): BP systolic 112–128; BP diastolic 58–74; PULSE 88–99; TEMP 36.4–37.1; O2SAT 96–100
[2017-04-07] MEDS: IPRATROPIUM BROMIDE NEB SOLN 0.02% 2.5 ML VIAL INH SCH ×6 (04:00→23:27)
[2017-04-07] MEDS: LEVALBUTEROL 1.25MG/0.5ML NEB INH SCH ×6 (04:00→23:27)
[2017-04-07] MEDS: ENOXAPARIN 80 MG/0.8 ML SYR SQ SCH ×2 (06:02→17:09)
[2017-04-07] MEDS: METHADONE HCL 10 MG TAB PO SCH ×4 (06:02→23:32)
[2017-04-07] MEDS: DOCUSATE SODIUM 100 MG CAP PO SCH ×2 (08:02→20:14)
[2017-04-07] MEDS: TRIAMCINOLONE ACET NASAL SPRAY 10.8ML BTL NAE SCH (08:03)
[2017-04-07] MEDS: CLONAZEPAM 0.5 MG TAB PO SCH ×2 (08:03→20:18)
[2017-04-07] MEDS: ACETYLCYSTEINE 600 MG CAP PO SCH ×2 (08:03→20:15)
[2017-04-07] MEDS: MAGNESIUM OXIDE 400 MG TAB PO SCH (08:03)
[2017-04-07] MEDS: FAMOTIDINE 20 MG TAB PO SCH ×2 (08:03→20:14)
[2017-04-07] MEDS: TRAMADOL HCL 50 MG TAB PO PRN ×2 (08:04→17:08)
[2017-04-07] MEDS: METOPROLOL SUCC 25MG EXT REL TAB PO SCH (08:04)
[2017-04-07] MEDS: INSULIN ASPART 100 UNITS/ML 3 ML PEN SC SCH ×4 (08:07→20:30)
[2017-04-07] MEDS: INSULIN GLARGINE SOLOSTAR 100 UNITS/ML 3 ML PEN SC SCH (08:09)
--- NOTE | 2017-04-07 10:19 | Pharmacy Progress Note ---
Pharmacy Glycemic Short Note 2 Date of Service Apr 07, 2017. OUTPATIENT ANTIDIABETIC REGIMEN: * Humulin N 75 units AM * Humalog SS * Novolin R 15 TIDM ASSESSMENT: * Patient received 148 units of insulin total yesterday * 60 units of basal insulin * 88 units of prandial/correctional insulin * BSGs ranging 91-239 mg/dl over the past 24hrs * Steroids changed to prednisone 40mg daily starting today. This should yield a small improvement in BSGs over the next 24hrs. * Fasting BG elevated on Lantus 60 units qAM. Fasting BSG = 210mg/dl this morning * Changed back to 50 units today since steroids decreased today. * BSG increases overnight from HS --> AM. Concerned that Lantus may not be lasting 24hrs for patient. Hesitant to add an HS dose of Lantus since patient has had lows on daily Lantus during this admission. Less stringent glycemic contol needed based on patient prognosis. Will add overnight NovoLog checks add any correctional insulin given to basal insulin dose the following day. * No changes needed to CF/CR. May need to loosen tomorrow since steroids tapered today * Post-prandial BSGs 239, 91, 130, 146. PLAN FOR INPATIENT GLYCEMIC CONTROL: no changes needed at this time. * Basal insulin * Lantus 50 units qAM * Bolus insulin: * Continue same NovoLog per scale ACHS or Q6hrs while NPO * Goal Range: Low 110 mg/dL - High 140 mg/dL * Correction Factor: 10 mg/dL/unit * Prandial insulin per carb ratio of 1 unit per 3 grams CHO consumed for breakfast & lunch * Prandial insulin per carb ratio of 1 unit per 4 grams CHO consumed for dinner , and HS
--- NOTE | 2017-04-07 15:39 | Progress Note ---
Internal Med Progress Note Date of Service: Apr 07, 2017. Provider Documentation: SUBJECTIVE: The patient was seen and examined Remains critical but stable Denied by [facility] and he does not want to go there Denies any pain and or more SOB Much better ,generally weak and participated in PT OBJECTIVE: Vital Signs-as noted below Exam: General-Minimal distress at rest Depressed Eyes-normal ENT-normal Neck-supple Lungs-decreased breath sound bilaterally Minimal crackles at the bases Heart-Regular,no murmur Abdomen-Benign,no masses,bowel sound present Extremities-trace edema bilaterally Neuro-AA Generally weak Lab data as noted below. ASSESSMENT & PLAN: ACUTE ON CHRONIC HYPOXIC RESPIRATORY FAILURE: Secondary to HCAP, COPD EXACERBATION, HISTORY OF LUNG CA, recent RADIATION PNEUMONITIS -follow cultures; last admission BAL grew meño -Was on empiric Vanc, Cefepime, Levaquin; can likely stop the vanco as MRSA screen negative -Has been on IV solu-medrol, weaned to once daily but might be helpful to increase to BID to help with the wheezing -continued on Bipap, nebs; continues to desaturate quickly without the BIPAP -Nut Blanker Operator consulted, appreciate recs -Has had discussion with the providers involved and POA by the outgoing Hospitalist and agreed to LTAC - Will decide in the coming week about LTAC -Continue required high flow oxygen at 50% -Waiting for placement to LTAC -Remains critical but stable -Patient is refusing treatment at times -Does not want to go to LTAC and denied -reevaluated by Respiratory to assess the need for High Flow oxygen -[place] to [place] [facility] [place]Remains stable to be discharged POSSIBLE SEPSIS: -lactic acid normal on repeat, but was elevated on admission POC lactic acid -was on IV fluids, now off, BP stable -Completed the course of Abx -No more infection -Remains afebrile and no increase in WCC 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, s/p chemo and radiation -Oncology discussed with the patient that he would likely no longer be a candidate for additional chemo given his current condition -Palliative care consulted; appreciate recommendations; patient signed POLST form last admission DNR/DNI which was confirmed by ICU staff after meeting with the family as the -patient decided he would not want to have a trach/PEG and understands that an intubation at this point would almost certainly result in trach/PEG -No further treatment -Poor prognosis -patient is well aware RECENT B/L PE AND NEW LUE DVT: -continue Lovenox BID; patient is injecting this himself into his thigh as he refuses subcutaneous injections into his abdomen and insists he takes them at home in his thigh -LUE Doppler done due to new edema, + for DVT in the left IJ, left subclavian, left brachial, left basilic, and left axillary veins -Anti-Xa was 0.64 which falls in the therapeutic range -PF4 was checked due to worsening thrombocytopenia and new clots and was negative -discussed with Hem/onc and advised to continue Lovenox as presently taking - Dr. roblero does not plan to start the chemo - He continues to refused the Lovenox subq in his abdomen and continues insist to take it in his thigh DM TYPE II: -Pharmacy glycemic control consulted, appreciate recommendations -has poor oral intake due to difficulty breathing, even while on high flow -was very well controlled as of recent HbA1c from earlier this month -patient is very fixated on his insulin and management of diabetes and often forgets the prior discussions about how in the hospital he needs assistance and this is why glycemic pharmacy is managing -Blood sugar remains reasonably stable ATRIAL FIBRILLATION: -on metoprolol and Lovenox already -Stable -rate is controlled CHRONIC BACK PAIN: -continued on methadone -Remains stable ANXIETY: -on IV Ativan q 4 hours + Valium BID -was initially on Precedex drip for anxiety and was changed to ativan and valium -Consulted Psych to assist with management of anxiety and depression, but patient does not want to try gabapentin and requests his medication doses be raised which is risky with his fragile respiratory state -Diazepam is stopped and Clonidine started DVT PX on LOVENOX subq CODE STATUS DNR Disposition Waiting for placement Continued [facility] stay due to: home environment unsafe for pt, other Discharge planning: uncertain Prognosis Poor Awaiting LTAC placement-does not want ot go Has had a long discussion with the Sis-in law Awaiting placement Vital Signs: Date Time Temp Pulse Resp B/P (MAP) Pulse Ox O2 Delivery O2 Flow Rate FiO2 04/07/17 11:15 90 16 99 Nasal Cannula 55.0 55 04/07/17 08:15 High Flow Oxygen 55.0 04/07/17 07:51 37.1 88 18 112/74 (87) 100 High Flow Oxygen 04/07/17 07:00 89 16 98 Nasal Cannula 55.0 55 04/07/17 00:06 99 97 50 04/07/17 00:01 High Flow Oxygen 55.0 55 04/06/17 23:30 86 16 97 Nasal Cannula 55.0 55 04/06/17 22:47 36.8 95 18 114/67 (83) 91 04/06/17 19:20 99 16 94 Nasal Cannula 55.0 55 04/06/17 16:00 91 High Flow Oxygen 55 Lab Results: Results Past 24 Hours Test 04/06/17 16:46 04/06/17 19:57 04/06/17 22:11 04/07/17 07:49 Range/Units Bedside Glucose 91 146 130 210 70-99 mg/dl Test 04/07/17 11:42 Range/Units Bedside Glucose 186 70-99 mg/dl
[2017-04-07] MEDS: QUETIAPINE FUMARATE 25 MG TAB PO SCH (20:13)
[2017-04-07] MEDS ORDERED: INSULIN GLARGINE SOLOSTAR 100 UNITS/ML 3 ML PEN SC SCH (21:00)
[2017-04-07] MEDS: ZOLPIDEM TARTRATE 10 MG TAB PO SCH (22:04)
[2017-04-08] VITALS (11 sets, daily range): BP systolic 112–121; BP diastolic 69–75; PULSE 64–96; TEMP 36.5–36.9; O2SAT 92–99
[2017-04-08] MEDS: TRAMADOL HCL 50 MG TAB PO PRN ×3 (02:03→17:50)
[2017-04-08] MEDS: IPRATROPIUM BROMIDE NEB SOLN 0.02% 2.5 ML VIAL INH SCH ×6 (03:31→23:11)
[2017-04-08] MEDS: LEVALBUTEROL 1.25MG/0.5ML NEB INH SCH ×6 (03:31→23:11)
[2017-04-08] MEDS: ENOXAPARIN 80 MG/0.8 ML SYR SQ SCH ×2 (05:50→17:50)
[2017-04-08] MEDS: METHADONE HCL 10 MG TAB PO SCH ×4 (05:50→23:59)
[2017-04-08] MEDS ORDERED: INSULIN ASPART 100 UNITS/ML 3 ML PEN SC SCH (08:15)
[2017-04-08] MEDS: FAMOTIDINE 20 MG TAB PO SCH ×2 (08:51→21:01)
[2017-04-08] MEDS: METOPROLOL SUCC 25MG EXT REL TAB PO SCH (08:51)
[2017-04-08] MEDS: DOCUSATE SODIUM 100 MG CAP PO SCH ×2 (08:51→21:00)
[2017-04-08] MEDS: TRIAMCINOLONE ACET NASAL SPRAY 10.8ML BTL NAE SCH (08:51)
[2017-04-08] MEDS: ACETYLCYSTEINE 600 MG CAP PO SCH ×2 (08:52→21:02)
[2017-04-08] MEDS: MAGNESIUM OXIDE 400 MG TAB PO SCH (08:52)
[2017-04-08] MEDS: INSULIN ASPART 100 UNITS/ML 3 ML PEN SC SCH ×5 (08:56→23:27)
[2017-04-08] MEDS: INSULIN GLARGINE SOLOSTAR 100 UNITS/ML 3 ML PEN SC SCH (08:57)
[2017-04-08] MEDS: CLONAZEPAM 0.5 MG TAB PO SCH ×2 (08:57→21:03)
[2017-04-08] MEDS ORDERED: INSULIN HUMAN NPH SC SCH ×2 (09:00→12:00)
--- NOTE | 2017-04-08 13:54 | Pharmacy Progress Note ---
Pharmacy Glycemic Short Note 2 Date of Service Apr 08, 2017. OUTPATIENT ANTIDIABETIC REGIMEN: * Humulin N 75 units AM * Humalog SS * Novolin R 15 TIDM Item Value Date Time Bedside Glucose 210 mg/dl H 04/07/17 0749 Bedside Glucose 186 mg/dl H 04/07/17 1142 Bedside Glucose 145 mg/dl H 04/07/17 1629 Bedside Glucose 329 mg/dl H 04/07/17 195 Bedside Glucose 302 mg/dl H 04/07/17 202 Bedside Glucose 143 mg/dl H 04/08/17 0746 Bedside Glucose 243 mg/dl H 04/08/17 1130 ASSESSMENT: * Patient received 138 units of insulin total yesterday * 50 units of basal insulin * 88 units of prandial/correctional insulin * BSGs ranging 143-302 mg/dl over the past 24hrs * BSG typically increases throughout the day. Concerned that Lantus may not be lasting 24hrs for patient. Hesitant to add an HS dose of Lantus since patient has had lows on daily Lantus during this admission. Less stringent glycemic control needed based on patient prognosis. * Pt is receiving prednisone 40mg PO daily --> best way to cover this is with once daily NPH as the PK of NPH matches that of the hyperglycemic effects of prednisone. Have been trying to compensate for steroid induced hyperglycemia with Lantus + NovoLog but this has not been working well and has been causing frequent BSG fluctuations (highs and lows). Adding NPH with lunch will help prevent high HS rise in BSG from prednisone. * Need to loosen CF/CR now that NPH is being added. * Overall, BSGs have been difficult to control as patient is frequently snacking all throughout the day. However, less stringent control needed based on patient prognosis. PLAN FOR INPATIENT GLYCEMIC CONTROL: * Basal insulin * Lantus 50 units qAM * Bolus insulin: * Continue same NovoLog per scale ACHS or Q6hrs while NPO * Goal Range: Low 110 mg/dL - High 140 mg/dL BREAKFAST ONLY: * Correction Factor: 10 mg/dL/unit * Prandial insulin per carb ratio of 1 unit per 3 grams CHO consumed LUNCH, DINNER, & HS: looser parameters once NPH is on board * Correction Factor: 20 mg/dL/unit * Prandial insulin per carb ratio of 1 unit per 6 grams CHO consumed * Steroid induced hyperglycemia * NPH 0.4 units/kg (45 units) SQ daily with lunch to cover hyperglycemia secondary to prednisone 40mg
--- NOTE | 2017-04-08 14:24 | Progress Note ---
Internal Med Progress Note Date of Service: Apr 08, 2017. Provider Documentation: SUBJECTIVE: The patient was seen and examined Remains critical but stable Denied by [facility] and he does not want to go there Denies any pain and or more SOB Much better ,generally weak and participated in PT No new issue OBJECTIVE: Vital Signs-as noted below Exam: General-No distress at rest Much brighter today Eyes-normal ENT-normal Neck-supple Lungs-decreased breath sound bilaterally Minimal crackles at the bases Heart-Regular,no murmur Abdomen-Benign,no masses,bowel sound present Extremities-trace edema bilaterally Neuro-AA Generally weak Lab data as noted below. ASSESSMENT & PLAN: ACUTE ON CHRONIC HYPOXIC RESPIRATORY FAILURE: Secondary to HCAP, COPD EXACERBATION, HISTORY OF LUNG CA, recent RADIATION PNEUMONITIS -follow cultures; last admission BAL grew meño -Was on empiric Vanc, Cefepime, Levaquin; can likely stop the vanco as MRSA screen negative -Has been on IV solu-medrol, weaned to once daily but might be helpful to increase to BID to help with the wheezing -continued on Bipap, nebs; continues to desaturate quickly without the BIPAP -Master Sheet Clerk consulted, appreciate recs -Has had discussion with the providers involved and POA by the outgoing Hospitalist and agreed to LTAC -Continue required high flow oxygen at 50% -Remains critical but stable -Patient is refusing treatment at times -Does not want to go to LTAC and denied from LTAC -reevaluated by Respiratory to assess the need for High Flow oxygen -[place] [facility] [place]Remains stable to be discharged -Likely to be discharged in a day or two POSSIBLE SEPSIS: -lactic acid normal on repeat, but was elevated on admission POC lactic acid -was on IV fluids, now off, BP stable -Completed the course of Abx -No more signs or symptoms of infection -Remains afebrile and no increase in WCC 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, s/p chemo and radiation -Oncology discussed with the patient that he would likely no longer be a candidate for additional chemo given his current condition -Palliative care consulted; appreciate recommendations; patient signed POLST form last admission DNR/DNI which was confirmed by ICU staff after meeting with the family as the -patient decided he would not want to have a trach/PEG and understands that an intubation at this point would almost certainly result in trach/PEG -No further treatment -Poor prognosis -patient is well aware RECENT B/L PE AND NEW LUE DVT: -continue Lovenox BID; patient is injecting this himself into his thigh as he refuses subcutaneous injections into his abdomen and insists he takes them at home in his thigh -LUE Doppler done due to new edema, + for DVT in the left IJ, left subclavian, left brachial, left basilic, and left axillary veins -Anti-Xa was 0.64 which falls in the therapeutic range -PF4 was checked due to worsening thrombocytopenia and new clots and was negative -discussed with Hem/onc and advised to continue Lovenox as presently taking - Dr. roblero does not plan to start the chemo - He continues to refused the Lovenox subQ in his abdomen and continues insist to take it in his thigh DM TYPE II: -Pharmacy glycemic control consulted, appreciate recommendations -has poor oral intake due to difficulty breathing, even while on high flow -was very well controlled as of recent HbA1c from earlier this month -patient is very fixated on his insulin and management of diabetes and often forgets the prior discussions about how in the hospital he needs assistance and this is why glycemic pharmacy is managing -Blood sugar remains reasonably stable ATRIAL FIBRILLATION: -on metoprolol and Lovenox already -Stable -rate is controlled CHRONIC BACK PAIN: -continued on methadone -Remains stable ANXIETY: -on IV Ativan q 4 hours + Valium BID -was initially on Precedex drip for anxiety and was changed to ativan and valium -Consulted Psych to assist with management of anxiety and depression, but patient does not want to try gabapentin and requests his medication doses be raised which is risky with his fragile respiratory state -Diazepam is stopped and Clonidine started -No anxiety issue DVT PX on LOVENOX subq CODE STATUS DNR Disposition Waiting for placement Continued [facility] stay due to: home environment unsafe for pt, other Discharge planning: uncertain Prognosis Poor Awaiting LTAC placement-does not want ot go Has had a long discussion with the Sis-in law Awaiting placement Vital Signs: Date Time Temp Pulse Resp B/P (MAP) Pulse Ox O2 Delivery O2 Flow Rate FiO2 04/08/17 11:26 93 16 95 Nasal Cannula 55.0 45 04/08/17 08:20 98 BiPAP 55.0 04/08/17 07:10 86 16 99 Nasal Cannula 55.0 50 04/08/17 06:41 36.5 64 20 114/73 (87) 99 BiPAP 04/08/17 03:31 93 16 98 BiPAP/CPAP 50 04/07/17 23:30 98 BiPAP 55.0 04/07/17 23:28 88 16 98 Nasal Cannula 55.0 55 04/07/17 23:28 36.4 88 18 128/73 (91) 97 BiPAP 04/07/17 19:40 92 16 98 Nasal Cannula 55.0 55 04/07/17 16:00 96 High Flow Oxygen 55.0 55 04/07/17 15:38 36.5 88 18 113/58 (76) 96 High Flow Oxygen 04/07/17 15:35 88 16 98 Nasal Cannula 55.0 55 Lab Results: Results Past 24 Hours Test 04/07/17 16:29 04/07/17 19:52 04/07/17 20:25 04/08/17 07:46 Range/Units Bedside Glucose 145 329 302 143 70-99 mg/dl Test 04/08/17 11:30 04/08/17 13:55 Range/Units Bedside Glucose 243 243 70-99 mg/dl
[2017-04-08] MEDS: QUETIAPINE FUMARATE 25 MG TAB PO SCH (21:01)
[2017-04-08] MEDS: ZOLPIDEM TARTRATE 10 MG TAB PO SCH (22:17)
[2017-04-09] VITALS (12 sets, daily range): BP systolic 102–151; BP diastolic 61–84; PULSE 64–96; TEMP 36.2–37.2; O2SAT 92–100
[2017-04-09] MEDS: LEVALBUTEROL 1.25MG/0.5ML NEB INH SCH ×6 (04:02→23:47)
[2017-04-09] MEDS: IPRATROPIUM BROMIDE NEB SOLN 0.02% 2.5 ML VIAL INH SCH ×6 (04:02→23:47)
[2017-04-09] MEDS: TRAMADOL HCL 50 MG TAB PO PRN ×3 (05:11→21:02)
[2017-04-09] MEDS: ENOXAPARIN 80 MG/0.8 ML SYR SQ SCH ×2 (06:04→17:56)
[2017-04-09] MEDS: METHADONE HCL 10 MG TAB PO SCH ×4 (06:05→23:31)
[2017-04-09] MEDS: METOPROLOL SUCC 25MG EXT REL TAB PO SCH (08:17)
[2017-04-09] MEDS: FAMOTIDINE 20 MG TAB PO SCH ×2 (08:17→21:02)
[2017-04-09] MEDS: ACETYLCYSTEINE 600 MG CAP PO SCH ×2 (08:17→21:03)
[2017-04-09] MEDS: MAGNESIUM OXIDE 400 MG TAB PO SCH (08:17)
[2017-04-09] MEDS: TRIAMCINOLONE ACET NASAL SPRAY 10.8ML BTL NAE SCH (08:18)
[2017-04-09] MEDS: DOCUSATE SODIUM 100 MG CAP PO SCH ×2 (08:18→21:00)
[2017-04-09 08:28] LABS: HEMATOCRIT 37.5 % (42-52); MEAN CELL VOLUME 89.5 fL (80-100); MEAN CORPUSCULAR HEMOGLOBIN 26.3 pg (25-34); MEAN CORPUSCULAR HGB CONC 29.3 g/dl (32-36); MEAN PLATELET VOLUME 10.8 fL (7.4-10.4); PLATELET COUNT 229 K/uL (130-400); RED CELL DISTRIBUTION WIDTH CV 17.8 % (11.5-14.5); RED CELL DISTRIBUTION WIDTH SD 58.5 fL (36.4-46.3); WHITE BLOOD COUNT 11.31 K/uL (4.8-10.8)
[2017-04-09] MEDS: INSULIN ASPART 100 UNITS/ML 3 ML PEN SC SCH ×4 (08:28→21:00)
[2017-04-09] MEDS: CLONAZEPAM 0.5 MG TAB PO SCH ×2 (08:36→21:01)
[2017-04-09 08:55] LABS: CALCIUM 9.5 mg/dl (8.5-10.1); CREATININE 0.73 mg/dl (0.60-1.40); POTASSIUM 4.2 mmol/L (3.5-5.1)
[2017-04-09 08:56] LABS: PHOSPHORUS 2.5 mg/dl (2.5-4.9)
--- NOTE | 2017-04-09 09:35 | Pharmacy Progress Note ---
Pharmacy Glycemic Short Note 2 Date of Service Apr 09, 2017. OUTPATIENT ANTIDIABETIC REGIMEN: * Humulin N 75 units AM * Humalog SS * Novolin R 15 TIDM Item Value Date Time Random Glucose 128 mg/dl H 04/09/17 0759 Bedside Glucose 270 mg/dl H 04/09/17 0743 Bedside Glucose 196 mg/dl H 04/08/17 2325 Bedside Glucose 304 mg/dl H 04/08/17 1946 Bedside Glucose 208 mg/dl H 04/08/17 1633 Bedside Glucose 243 mg/dl H 04/08/17 1355 Bedside Glucose 243 mg/dl H 04/08/17 1130 Bedside Glucose 143 mg/dl H 04/08/17 0746 ASSESSMENT: * Patient received 172 units of insulin total yesterday * 50 units of basal insulin * 77 units of prandial/correctional insulin * 45 units of NPH to cover steroid induced hyperglycemia from prednisone 40mg daily * Pt is receiving prednisone 40mg PO daily --> best way to cover this is with once daily NPH as the PK of NPH matches that of the hyperglycemic effects of prednisone. Have been trying to compensate for steroid induced hyperglycemia with Lantus + NovoLog but this has not been working well and has been causing frequent BSG fluctuations (highs and lows). Adding NPH with lunch will help prevent high rise in BSG from prednisone at bedtime. * Loosened CF/CR for lunch, dinner and HS since NPH is being added with lunch * Keep CF/CR aggressive for breakfast since NPH not given until lunch * Overall, BSGs have been difficult to control as patient is frequently snacking all throughout the day. BSGs are not responding in a typical pattern based on the changes that are made to insulin regimen. However, less stringent control needed based on patient prognosis. PLAN FOR INPATIENT GLYCEMIC CONTROL: * Basal insulin * Lantus 50 units qAM * Bolus insulin: * Continue same NovoLog per scale ACHS or Q6hrs while NPO * Goal Range: Low 110 mg/dL - High 140 mg/dL BREAKFAST ONLY: * Correction Factor: 10 mg/dL/unit * Prandial insulin per carb ratio of 1 unit per 2.5 grams CHO consumed LUNCH, DINNER, & HS: looser parameters once NPH is on board * Correction Factor: 20 mg/dL/unit * Prandial insulin per carb ratio of 1 unit per 6 grams CHO consumed * Steroid induced hyperglycemia * NPH 0.42 units/kg (50 units) SQ daily with lunch to cover hyperglycemia secondary to prednisone 40mg
[2017-04-09] MEDS: INSULIN GLARGINE SOLOSTAR 100 UNITS/ML 3 ML PEN SC SCH (09:38)
[2017-04-09] MEDS: INSULIN HUMAN NPH SC SCH (12:44)
--- NOTE | 2017-04-09 13:55 | Progress Note ---
Internal Med Progress Note Date of Service: Apr 09, 2017. Provider Documentation: SUBJECTIVE: The patient was seen and examined Remains critical but stable Denied by [facility] and he does not want to go there Denies any pain and or more SOB Much better ,generally weak and participated in PT Wants to be able to come out of bed and do minimum ADLs by himself before discharge Participating in PT/OT OBJECTIVE: Vital Signs-as noted below Exam: General-No distress at rest Much brighter today Eyes-normal ENT-normal Neck-supple Lungs-decreased breath sound bilaterally Minimal crackles at the bases Heart-Regular,no murmur Abdomen-Benign,no masses,bowel sound present Extremities-trace edema bilaterally Neuro-AA Generally weak Lab data as noted below. ASSESSMENT & PLAN: ACUTE ON CHRONIC HYPOXIC RESPIRATORY FAILURE: Secondary to HCAP, COPD EXACERBATION, HISTORY OF LUNG CA, recent RADIATION PNEUMONITIS -follow cultures; last admission BAL grew meño -Was on empiric Vanc, Cefepime, Levaquin; can likely stop the vanco as MRSA screen negative -Has been on IV solu-medrol, weaned to once daily but might be helpful to increase to BID to help with the wheezing -continued on Bipap, nebs; continues to desaturate quickly without the BIPAP -Nursing Consultant consulted, appreciate recs -Has had discussion with the providers involved and POA by the outgoing Hospitalist and agreed to LTAC -Continue required high flow oxygen at 50% -Remains critical but stable -Patient is refusing treatment at times -Does not want to go to LTAC and denied from LTAC -reevaluated by Respiratory to assess the need for High Flow oxygen -likely to be discharged to [facility] -Remains stable to be discharged -Reduce the flow of Oxygen to alleviate the need for High Flow O2, maintaining adequate saturation before discharge POSSIBLE SEPSIS: -lactic acid normal on repeat, but was elevated on admission POC lactic acid -was on IV fluids, now off, BP stable -Completed the course of Abx -No more signs or symptoms of infection -Remains afebrile and no increase in WCC 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, s/p chemo and radiation -Oncology discussed with the patient that he would likely no longer be a candidate for additional chemo given his current condition -Palliative care consulted; appreciate recommendations; patient signed POLST form last admission DNR/DNI which was confirmed by ICU staff after meeting with the family as the -patient decided he would not want to have a trach/PEG and understands that an intubation at this point would almost certainly result in trach/PEG -No further treatment -Poor prognosis -patient is well aware RECENT B/L PE AND NEW LUE DVT: -continue Lovenox BID; patient is injecting this himself into his thigh as he refuses subcutaneous injections into his abdomen and insists he takes them at home in his thigh -LUE Doppler done due to new edema, + for DVT in the left IJ, left subclavian, left brachial, left basilic, and left axillary veins -Anti-Xa was 0.64 which falls in the therapeutic range -PF4 was checked due to worsening thrombocytopenia and new clots and was negative -discussed with Hem/onc and advised to continue Lovenox as presently taking - Dr. Gale does not plan to start the chemo - He continues to refused the Lovenox subQ in his abdomen and continues insist to take it in his thigh DM TYPE II: -Pharmacy glycemic control consulted, appreciate recommendations -has poor oral intake due to difficulty breathing, even while on high flow -was very well controlled as of recent HbA1c from earlier this month -patient is very fixated on his insulin and management of diabetes and often forgets the prior discussions about how in the hospital he needs assistance and this is why glycemic pharmacy is managing -Blood sugar remains reasonably stable ATRIAL FIBRILLATION: -on metoprolol and Lovenox already -Stable -rate is controlled CHRONIC BACK PAIN: -continued on methadone -Remains stable ANXIETY: -on IV Ativan q 4 hours + Valium BID -was initially on Precedex drip for anxiety and was changed to ativan and valium -Consulted Psych to assist with management of anxiety and depression, but patient does not want to try gabapentin and requests his medication doses be raised which is risky with his fragile respiratory state -Diazepam is stopped and Clonidine started -No anxiety issue DVT PX on LOVENOX subq CODE STATUS DNR Disposition Waiting for placement Continued [facility] stay due to: home environment unsafe for pt, other Discharge planning: uncertain Prognosis Poor Awaiting LTAC placement-does not want to go and denied Has had a long discussion with the Sis-in law Awaiting placement::Wants to be able to come out of bed and do minimum ADLs by himself before discharge Participating in PT/OT Vital Signs: Date Time Temp Pulse Resp B/P (MAP) Pulse Ox O2 Delivery O2 Flow Rate FiO2 04/09/17 11:14 91 18 94 Nasal Cannula 50.0 45 04/09/17 09:10 98 High Flow Oxygen 55 04/09/17 07:18 36.2 64 24 151/84 (106) 93 Free Flow/Blowby 04/09/17 07:15 94 18 93 Nasal Cannula 50 04/09/17 04:03 86 16 93 BiPAP/CPAP 50 04/09/17 04:02 93 50 04/09/17 00:00 High Flow Oxygen 55 04/08/17 23:11 93 16 98 Nasal Cannula 55.0 55 04/08/17 22:59 36.7 96 20 112/69 (83) 92 High Flow Oxygen 04/08/17 20:00 High Flow Oxygen 55 04/08/17 19:57 92 16 99 Nasal Cannula 55.0 55 04/08/17 18:00 95 BiPAP 55.0 04/08/17 15:50 94 16 96 Nasal Cannula 55.0 55 04/08/17 15:30 36.9 95 18 121/75 (90) 92 High Flow Oxygen Lab Results: Results Past 24 Hours Test 04/08/17 13:55 04/08/17 16:33 04/08/17 19:46 04/08/17 23:25 Range/Units Bedside Glucose 243 208 304 196 70-99 mg/dl Test 04/09/17 07:43 04/09/17 07:59 04/09/17 11:10 Range/Units Bedside Glucose 270 114 70-99 mg/dl White Blood Count 11.31 4.8-10.8 K/uL Red Blood Count 4.19 4.7-6.1 M/uL Hemoglobin 11.0 14.0-18.0 g/dL Hematocrit 37.5 42-52 % Mean Corpuscular Volume 89.5 80-100 fL Mean Corpuscular Hemoglobin 26.3 25-34 pg Mean Corpuscular Hemoglobin Concent 29.3 32-36 g/dl RDW Standard Deviation 58.5 36.4-46.3 fL RDW Coefficient of Variation 17.8 11.5-14.5 % Platelet Count 229 130-400 K/uL Mean Platelet Volume 10.8 7.4-10.4 fL Sodium Level 141 136-145 mmol/L Potassium Level 4.2 3.5-5.1 mmol/L Chloride Level 98 98-107 mmol/L Carbon Dioxide Level 40 21-32 mmol/L Anion Gap 3.0 3-11 mmol/L Blood Urea Nitrogen 21 7-18 mg/dl Creatinine 0.73 0.60-1.40 mg/dl Est Creatinine Clear Calc Drug Dose 159.8 ml/min Estimated GFR () 121.9 Estimated GFR (Non- 105.2 BUN/Creatinine Ratio 29.4 10-20 Random Glucose 128 70-99 mg/dl Calcium Level 9.5 8.5-10.1 mg/dl Phosphorus Level 2.5 2.5-4.9 mg/dl Magnesium Level 2.1 1.8-2.4 mg/dl
--- NOTE | 2017-04-09 18:07 | Hematology/Oncology Prog Note ---
Hematology/Onc Progress Note Date of Service Apr 09, 2017. Subjective .I saw him at bedside, he was sitting quite comfortably in the bed, reviewed his chart, hemodynamically he has remained stable, he is receiving oxygen at about 45%, he had a significant left upper extremity edema which has improved, he still complains of local pain in the left approximate especially while stretching it, no fever, good appetite, no nausea, no vomiting, no new bleeding complications, no increasing leg edema, she denies any increasing pain anywhere else, no increasing shortness of breath, cough with yellowish expectorant present, no hemoptysis. Blood workup done on 04/09/2017: - WBC 11,300, H&H of 11/37.5, Platelet count of 229,000. - BUN/creatinine: 21/0.7, calcium 9.5, magnesium 2.1 It is possible that he may still do quite well for some time and so will continue with the current medical management. I'm not planning for active treatment for underlying small-cell lung cancer at this time. Waiting for the transfer to the nursing facility where he continued to receive detention and oxygen therapy. Vital Signs Vital Signs Past 12 Hours Date Time Temp Pulse Resp B/P (MAP) Pulse Ox O2 Delivery O2 Flow Rate FiO2 04/09/17 15:28 93 18 94 Nasal Cannula 50.0 45 04/09/17 14:44 37.2 92 22 102/61 (75) 94 Free Flow/Blowby 04/09/17 11:14 91 18 94 Nasal Cannula 50.0 45 04/09/17 09:10 98 High Flow Oxygen 55 04/09/17 07:18 36.2 64 24 151/84 (106) 93 Free Flow/Blowby 04/09/17 07:15 94 18 93 Nasal Cannula 50
[2017-04-09] MEDS: QUETIAPINE FUMARATE 25 MG TAB PO SCH (21:02)
[2017-04-09] MEDS: ZOLPIDEM TARTRATE 10 MG TAB PO SCH (22:30)
[2017-04-10] VITALS (9 sets, daily range): BP systolic 106–111; BP diastolic 68–73; PULSE 80–106; TEMP 36.6–37; O2SAT 91–98
[2017-04-10] MEDS: IPRATROPIUM BROMIDE NEB SOLN 0.02% 2.5 ML VIAL INH SCH ×6 (03:48→23:08)
[2017-04-10] MEDS: LEVALBUTEROL 1.25MG/0.5ML NEB INH SCH ×6 (03:48→23:08)
[2017-04-10] MEDS: ENOXAPARIN 80 MG/0.8 ML SYR SQ SCH ×2 (06:01→17:42)
[2017-04-10] MEDS: METHADONE HCL 10 MG TAB PO SCH ×4 (06:02→23:08)
[2017-04-10] MEDS: TRAMADOL HCL 50 MG TAB PO PRN ×2 (06:09→21:05)
[2017-04-10] MEDS: METOPROLOL SUCC 25MG EXT REL TAB PO SCH (08:12)
[2017-04-10] MEDS: FAMOTIDINE 20 MG TAB PO SCH ×2 (08:13→21:01)
[2017-04-10] MEDS: MAGNESIUM OXIDE 400 MG TAB PO SCH (08:13)
[2017-04-10] MEDS: ACETYLCYSTEINE 600 MG CAP PO SCH ×2 (08:13→21:02)
[2017-04-10] MEDS: DOCUSATE SODIUM 100 MG CAP PO SCH ×2 (08:17→21:00)
[2017-04-10] MEDS: CLONAZEPAM 0.5 MG TAB PO SCH ×2 (08:23→21:05)
[2017-04-10] MEDS: TRIAMCINOLONE ACET NASAL SPRAY 10.8ML BTL NAE SCH (09:08)
[2017-04-10] MEDS: INSULIN ASPART 100 UNITS/ML 3 ML PEN SC SCH ×4 (09:11→20:58)
[2017-04-10] MEDS: INSULIN GLARGINE SOLOSTAR 100 UNITS/ML 3 ML PEN SC SCH (09:12)
[2017-04-10] MEDS: DICLOFENAC SOD 1% GEL 100 GM TUBE EXT SCH ×2 (11:18→21:01)
[2017-04-10] MEDS: INSULIN HUMAN NPH SC SCH (12:19)
--- NOTE | 2017-04-10 13:33 | Progress Note ---
Internal Med Progress Note Date of Service: Apr 10, 2017. Provider Documentation: SUBJECTIVE: Seen and examined at bedside Currently getting PT Continues to require High flow oxygen Discussed with [facility] Patient refuses to consider going to [facility] in [place] Clinically no significant change OBJECTIVE: Vital Signs-as noted below Physical Exam: General Appearance:Moderately built and nourished, no apparent distress Head: normocephalic, Atraumatic Eyes: normal inspection, EOMI, PERRL Neck: supple, Trachea midline Respiratory/Chest: Decreased breath sounds, CTA Cardiovascular: S1, S2, No murmur Abdomen/GI:Soft, Non tender, Bowel sounds present Extremities/Musculoskelatal:normal inspection, Trace edema Neurologic/Psych:AAOX3, grossly no focal neurological deficits Skin: normal color, warm Lab data as noted below. ASSESSMENT & PLAN: Acute on Chronic Respiratory failure with Hypoxia: Secondary to HCAP, COPD Exacerbation, H/O Lung Cancer, recent Radiation Pneumonitis Blood cultures: Negative Sputum culture: Contamination:last admission BAL grew meño MRSA screen Negative Was on empiric Vanc, Cefepime, Levaquin IV solu-medrol transitioned to PO prednisone Continue Oxygen support, BIPAP QHS/PRN Continue Nebs Appreciate Cotton Classer Aide/Pulmonology Input Refuses LTAC placement Continues to require high flow oxygen Poor Prognosis Possible Sepsis: lactic acid normal on repeat, but was elevated on admission POC lactic acid IV fluids discontinued Completed Abx therapy Small Cell Lung Cancer: 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, s/p chemo and radiation Oncology on board No plan for additional chemo given his current condition Palliative care consulted; appreciate recommendations; patient signed POLST form last admission DNR/DNI which was confirmed by ICU staff after meeting with the family as the -patient decided he would not want to have a trach/PEG and understands that an intubation at this point would almost certainly result in trach/PEG Poor prognosis: Patient is aware of his condition Recent B/L PE & New LUE DVT: continue Lovenox BID; patient is injecting this himself into his thigh as he refuses subcutaneous injections into his abdomen and insists he takes them at home in his thigh LUE Doppler done due to new edema, + for DVT in the left IJ, left subclavian, left brachial, left basilic, and left axillary veins Anti-Xa was 0.64 which falls in the therapeutic range PF4 was checked due to worsening thrombocytopenia and new clots and was negative Discussed with Hem/onc: advised to continue Lovenox DM TYPE II: Pharmacy glycemic control consulted, appreciate recommendations Last A1C:6.4 on 01/31/17 Continue ISS, lantus Monitor Blood sugar levels Atrial Fibrillation: Rate controlled on metoprolol and Lovenox Stable Chronic Back Pain: continued methadone stable Anxiety: Was initially on Precedex drip for anxiety and was changed to ativan and valium Consulted Psych to assist with management of anxiety and depression, but patient does not want to try gabapentin and requests his medication doses be raised which is risky given his respiratory status Continue current medications DVT PX: on Lovenox SQ CODE STATUS: DNR Disposition: Waiting for placement Prognosis Poor Patient refuses LTAC placement PT/OT Vital Signs: Date Time Temp Pulse Resp B/P (MAP) Pulse Ox O2 Delivery O2 Flow Rate FiO2 04/10/17 11:22 90 18 97 Nasal Cannula 50.0 45 04/10/17 08:00 High Flow Oxygen 55.0 04/10/17 07:43 37.0 95 20 111/72 (85) 95 High Flow Oxygen 04/10/17 07:23 90 18 95 Nasal Cannula 50.0 47 04/10/17 03:10 90 98 50 04/10/17 03:10 90 18 98 BiPAP/CPAP 50 04/10/17 00:00 High Flow Oxygen 55 04/09/17 23:35 36.8 87 21 115/70 (85) 100 High Flow Oxygen 04/09/17 23:10 91 18 96 Nasal Cannula 50.0 45 04/09/17 20:00 High Flow Oxygen 55 04/09/17 19:57 96 18 92 Nasal Cannula 50.0 45 04/09/17 16:00 98 High Flow Oxygen 55 04/09/17 15:28 93 18 94 Nasal Cannula 50.0 45 04/09/17 14:44 37.2 92 22 102/61 (75) 94 Free Flow/Blowby Lab Results: Results Past 24 Hours Test 04/09/17 16:24 04/09/17 19:52 04/10/17 07:32 04/10/17 11:08 Range/Units Bedside Glucose 113 111 159 248 70-99 mg/dl
[2017-04-10] MEDS: QUETIAPINE FUMARATE 25 MG TAB PO SCH (21:02)
[2017-04-10] MEDS: ZOLPIDEM TARTRATE 10 MG TAB PO SCH (23:07)
[2017-04-11] VITALS (9 sets, daily range): BP systolic 120–142; BP diastolic 73–81; PULSE 76–110; TEMP 36.5–37; O2SAT 77–96
[2017-04-11] MEDS: IPRATROPIUM BROMIDE NEB SOLN 0.02% 2.5 ML VIAL INH SCH ×6 (03:07→23:41)
[2017-04-11] MEDS: LEVALBUTEROL 1.25MG/0.5ML NEB INH SCH ×6 (03:07→23:41)
[2017-04-11] MEDS: METHADONE HCL 10 MG TAB PO SCH ×4 (05:46→23:45)
[2017-04-11] MEDS: ENOXAPARIN 80 MG/0.8 ML SYR SQ SCH ×2 (05:46→17:49)
[2017-04-11] MEDS: TRAMADOL HCL 50 MG TAB PO PRN ×2 (08:34→23:50)
[2017-04-11] MEDS: ACETYLCYSTEINE 600 MG CAP PO SCH ×2 (08:35→20:52)
[2017-04-11] MEDS: FAMOTIDINE 20 MG TAB PO SCH ×2 (08:36→20:53)
[2017-04-11] MEDS: MAGNESIUM OXIDE 400 MG TAB PO SCH (08:36)
[2017-04-11] MEDS: METOPROLOL SUCC 25MG EXT REL TAB PO SCH (08:36)
[2017-04-11] MEDS: DICLOFENAC SOD 1% GEL 100 GM TUBE EXT SCH ×2 (08:37→20:51)
[2017-04-11] MEDS: TRIAMCINOLONE ACET NASAL SPRAY 10.8ML BTL NAE SCH (08:37)
[2017-04-11] MEDS: CLONAZEPAM 0.5 MG TAB PO SCH ×2 (08:40→20:59)
[2017-04-11] MEDS: INSULIN GLARGINE SOLOSTAR 100 UNITS/ML 3 ML PEN SC SCH (08:46)
[2017-04-11] MEDS: INSULIN ASPART 100 UNITS/ML 3 ML PEN SC SCH ×4 (08:46→22:32)
[2017-04-11] MEDS: DOCUSATE SODIUM 100 MG CAP PO SCH ×2 (08:48→20:53)
--- NOTE | 2017-04-11 11:24 | Pharmacy Progress Note ---
Pharmacy Glycemic Short Note 2 Date of Service Apr 11, 2017. OUTPATIENT ANTIDIABETIC REGIMEN: * Humulin N 75 units AM * Humalog SS * Novolin R 15 TIDM ASSESSMENT: * On average, pt has been receiving ~150 units of insulin per day * Prior to changes made 48 hours ago, pt had been very difficult to control due to snacking and prednisone dosing * On 04/08 pharmacy initiated NPH with prednisone dosing and made changes to CF/ CR * At first, BSGs did not respond; however, the past 48 hours his glycemic control as been excellent * BSGs have ranged 128-248 over the past 24 hours (only one BSG out of range) * To combat the high lunch BSG, tighten carb coverage another step with breakfast * Otherwise, continue current regimen of Lantus + NPH + Novolog PLAN FOR INPATIENT GLYCEMIC CONTROL: * Basal insulin * Lantus 50 units qAM * Bolus insulin: * Continue same NovoLog per scale ACHS or Q6hrs while NPO * Goal Range: Low 110 mg/dL - High 140 mg/dL BREAKFAST ONLY: * Correction Factor: 10 mg/dL/unit * Prandial insulin per carb ratio of 1 unit per 2 grams CHO consumed LUNCH, DINNER, & HS: looser parameters once NPH is on board * Correction Factor: 20 mg/dL/unit * Prandial insulin per carb ratio of 1 unit per 6 grams CHO consumed * Steroid induced hyperglycemia * NPH 0.42 units/kg (50 units) SQ daily with lunch to cover hyperglycemia secondary to prednisone 40mg
[2017-04-11] MEDS: INSULIN HUMAN NPH SC SCH (12:12)
[2017-04-11] MEDS ORDERED: LORAZEPAM 0.5 MG TAB ONE (12:59)
--- NOTE | 2017-04-11 15:25 | Progress Note ---
Internal Med Progress Note Date of Service: Apr 11, 2017. Provider Documentation: SUBJECTIVE: Seen and examined at bedside Reports being anxious today which later improved with Benzos Desaturates with minimal PT/activity Continues to require High flow oxygen Discussed with [facility] yesterday Subjectively feels his breathing is better OBJECTIVE: Vital Signs-as noted below Physical Exam: General Appearance:Moderately built and nourished, no apparent distress Head: normocephalic, Atraumatic Eyes: normal inspection, EOMI, PERRL Neck: supple, Trachea midline Respiratory/Chest: Decreased breath sounds, CTA Cardiovascular: S1, S2, No murmur Abdomen/GI:Soft, Non tender, Bowel sounds present Extremities/Musculoskelatal:normal inspection, Trace edema Neurologic/Psych:AAOX3, grossly no focal neurological deficits Skin: normal color, warm Lab data as noted below. ASSESSMENT & PLAN: Acute on Chronic Respiratory failure with Hypoxia: Secondary to HCAP, COPD Exacerbation, H/O Lung Cancer, recent Radiation Pneumonitis Blood cultures: Negative Sputum culture: Contamination:last admission BAL grew meño MRSA screen Negative Was on empiric Vanc, Cefepime, Levaquin IV solu-medrol transitioned to PO prednisone Continue Oxygen support, BIPAP QHS/PRN Continue Nebs Appreciate Chief Psychologist/Pulmonology Input Plan to discharge to LTAC if approved Continues to require high flow oxygen Critical but stable, Poor Prognosis Possible Sepsis: lactic acid normal on repeat, but was elevated on admission POC lactic acid IV fluids discontinued Completed Abx therapy Small Cell Lung Cancer: 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, s/p chemo and radiation Oncology on board No plan for additional chemo given his current condition Palliative care consulted; appreciate recommendations; patient signed POLST form last admission DNR/DNI which was confirmed by ICU staff after meeting with the family as the -patient decided he would not want to have a trach/PEG and understands that an intubation at this point would almost certainly result in trach/PEG Poor prognosis: Patient is aware of his condition Recent B/L PE & New LUE DVT: continue Lovenox BID; patient is injecting this himself into his thigh as he refuses subcutaneous injections into his abdomen and insists he takes them at home in his thigh LUE Doppler done due to new edema, + for DVT in the left IJ, left subclavian, left brachial, left basilic, and left axillary veins Anti-Xa was 0.64 which falls in the therapeutic range PF4 was checked due to worsening thrombocytopenia and new clots and was negative Discussed with Hem/onc: advised to continue Lovenox DM TYPE II: Pharmacy glycemic control consulted, appreciate recommendations Last A1C:6.4 on 01/31/17 Continue ISS, lantus Monitor Blood sugar levels Atrial Fibrillation: Rate controlled on metoprolol and Lovenox Stable Chronic Back Pain: continued methadone stable Anxiety: Was initially on Precedex drip for anxiety and was changed to Ativan and Valium Consulted Psych to assist with management of anxiety and depression, but patient does not want to try gabapentin and requests his medication doses be raised which is risky given his respiratory status Continue current medications DVT PX: on Lovenox SQ CODE STATUS: DNR Disposition: Critical but stable Prognosis Poor Plan to discharge to LTAC if approved PT/OT Vital Signs: Date Time Temp Pulse Resp B/P (MAP) Pulse Ox O2 Delivery O2 Flow Rate FiO2 04/11/17 14:50 36.5 109 22 142/81 (101) 90 Free Flow/Blowby 04/11/17 11:18 90 16 96 Nasal Cannula 40.0 45 04/11/17 08:30 High Flow Oxygen 40.0 45 BiPAP 04/11/17 08:08 37.0 84 18 120/73 (89) 91 High Flow Oxygen 04/11/17 07:18 93 16 95 Nasal Cannula 40.0 45 04/11/17 03:08 76 16 92 Nasal Cannula 50.0 48 04/11/17 00:00 High Flow Oxygen 50.0 45 BiPAP 04/10/17 23:50 36.6 105 18 110/73 (85) 92 High Flow Oxygen 04/10/17 23:08 98 18 95 Nasal Cannula 50.0 48 04/10/17 20:00 High Flow Oxygen 50.0 45 04/10/17 19:43 106 18 91 Nasal Cannula 50.0 49 04/10/17 16:00 High Flow Oxygen 50.0 04/10/17 15:57 80 18 97 Nasal Cannula 50.0 45 Lab Results: Results Past 24 Hours Test 04/10/17 16:23 04/10/17 20:30 04/11/17 07:42 04/11/17 11:22 Range/Units Bedside Glucose 159 128 127 118 70-99 mg/dl
[2017-04-11] MEDS: QUETIAPINE FUMARATE 25 MG TAB PO SCH (20:53)
[2017-04-11] MEDS: ZOLPIDEM TARTRATE 10 MG TAB PO SCH (22:23)
[2017-04-12] VITALS (9 sets, daily range): BP systolic 116–119; BP diastolic 73–75; PULSE 85–99; TEMP 36.1–36.8; O2SAT 90–99; Ht 190.5 cm; Wt 117.4 kg
[2017-04-12] MEDS: LORAZEPAM 0.5 MG TAB PO PRN ×2 (02:34→12:02)
[2017-04-12] MEDS: METHADONE HCL 10 MG TAB PO SCH ×4 (06:20→23:23)
[2017-04-12] MEDS: ENOXAPARIN 80 MG/0.8 ML SYR SQ SCH ×2 (06:21→17:49)
[2017-04-12 07:28] LABS: CALCIUM 9.3 mg/dl (8.5-10.1); CREATININE 0.8 mg/dl (0.60-1.40)
[2017-04-12] MEDS: IPRATROPIUM BROMIDE NEB SOLN 0.02% 2.5 ML VIAL INH SCH ×5 (07:52→19:39)
[2017-04-12] MEDS: LEVALBUTEROL 1.25MG/0.5ML NEB INH SCH ×5 (07:52→19:39)
--- NOTE | 2017-04-12 08:05 | Pharmacy Progress Note ---
Pharmacy Glycemic Short Note 2 Date of Service Apr 12, 2017. OUTPATIENT ANTIDIABETIC REGIMEN: * Humulin N 75 units AM * Humalog SS * Novolin R 15 TIDM ASSESSMENT: * On average, pt has been receiving ~150 units of insulin per day * Prior to changes made 72 hours ago, pt had been very difficult to control due to snacking and prednisone dosing * On 04/08 pharmacy initiated NPH with prednisone dosing and made changes to CF/ CR * Pt responded well and BSGs finally within goal range * BSGs over the last 24 hours ranging 64-209 mg/dL * Over the last 48 hours, he received 0 units of Novolog; however, last night he received 20 units of Novolog because he ate 99 grams at bedtime (biggest meal of the day yesterday) * This caused him to have a low BSG of 64 mg/dL around 0200 * Pt ate 15 g of carbs and candy bar and came back up * This is not a basal issue but too tight of Novolog coverage at night * Continue current regimen with the exception of loosening carb coverage at bedtime incase patient continues to eat a full meal PLAN FOR INPATIENT GLYCEMIC CONTROL: * Basal insulin * Lantus 50 units qAM * Bolus insulin: * Continue same NovoLog per scale ACHS or Q6hrs while NPO * Goal Range: Low 110 mg/dL - High 140 mg/dL BREAKFAST ONLY: * Correction Factor: 10 mg/dL/unit * Prandial insulin per carb ratio of 1 unit per 2 grams CHO consumed LUNCH, DINNER: looser parameters once NPH is on board * Correction Factor: 20 mg/dL/unit * Prandial insulin per carb ratio of 1 unit per 6 grams CHO consumed BEDTIME ONLY: * Correction Factor: 20 mg/dL/unit * Prandial insulin per carb ratio of 1 unit per 20 grams of CHO consumed * Steroid induced hyperglycemia * NPH 0.42 units/kg (50 units) SQ daily with lunch to cover hyperglycemia secondary to prednisone 40mg
[2017-04-12] MEDS: TRIAMCINOLONE ACET NASAL SPRAY 10.8ML BTL NAE SCH (08:29)
[2017-04-12] MEDS: METOPROLOL SUCC 25MG EXT REL TAB PO SCH (08:30)
[2017-04-12] MEDS: DOCUSATE SODIUM 100 MG CAP PO SCH ×2 (08:30→21:00)
[2017-04-12] MEDS: FAMOTIDINE 20 MG TAB PO SCH ×2 (08:30→21:19)
[2017-04-12] MEDS: DICLOFENAC SOD 1% GEL 100 GM TUBE EXT SCH ×2 (08:30→21:17)
[2017-04-12] MEDS: ACETYLCYSTEINE 600 MG CAP PO SCH ×2 (08:30→21:19)
[2017-04-12] MEDS: MAGNESIUM OXIDE 400 MG TAB PO SCH (08:30)
[2017-04-12] MEDS: CLONAZEPAM 0.5 MG TAB PO SCH ×2 (08:30→21:17)
[2017-04-12] MEDS: INSULIN ASPART 100 UNITS/ML 3 ML PEN SC SCH ×4 (08:35→21:22)
[2017-04-12] MEDS: INSULIN GLARGINE SOLOSTAR 100 UNITS/ML 3 ML PEN SC SCH (08:36)
[2017-04-12] MEDS: INSULIN HUMAN NPH SC SCH (12:04)
--- NOTE | 2017-04-12 13:29 | Progress Note ---
Internal Med Progress Note Date of Service: Apr 12, 2017. Provider Documentation: SUBJECTIVE: Seen and examined at bedside Saturating 94% on 6 liters Less anxious today Subjectively feels his breathing is better No new complaints OBJECTIVE: Vital Signs-as noted below Physical Exam: General Appearance:Moderately built and nourished, no apparent distress Head: normocephalic, Atraumatic Eyes: normal inspection, EOMI, PERRL Neck: supple, Trachea midline Respiratory/Chest: Decreased breath sounds, CTA Cardiovascular: S1, S2, No murmur Abdomen/GI:Soft, Non tender, Bowel sounds present Extremities/Musculoskelatal:normal inspection, Trace edema Neurologic/Psych:AAOX3, grossly no focal neurological deficits Skin: normal color, warm Lab data as noted below. ASSESSMENT & PLAN: Acute on Chronic Respiratory failure with Hypoxia: Secondary to HCAP, COPD Exacerbation, H/O Lung Cancer, recent Radiation Pneumonitis Blood cultures: Negative Sputum culture: Contamination:last admission BAL grew meño MRSA screen Negative Was on empiric Vanc, Cefepime, Levaquin IV solu-medrol transitioned to PO prednisone Continue Oxygen support, BIPAP QHS/PRN Continue Nebs Appreciate Post Production Assistant/Pulmonology Input Plan to discharge to LTAC if approved Oxygen requirement coming down: Saturating 94% on 6 liters but easily desaturates with activity Critical but stable, Poor Prognosis Requested Pulmonary to re-evaluate for further recommendations Possible Sepsis: lactic acid normal on repeat, but was elevated on admission POC lactic acid IV fluids discontinued Completed Abx therapy Small Cell Lung Cancer: 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, s/p chemo and radiation Oncology on board No plan for additional chemo given his current condition Palliative care consulted; appreciate recommendations; patient signed POLST form last admission DNR/DNI which was confirmed by ICU staff after meeting with the family as the -patient decided he would not want to have a trach/PEG and understands that an intubation at this point would almost certainly result in trach/PEG Poor prognosis: Patient is aware of his condition Recent B/L PE & New LUE DVT: continue Lovenox BID; patient is injecting this himself into his thigh as he refuses subcutaneous injections into his abdomen and insists he takes them at home in his thigh LUE Doppler done due to new edema, + for DVT in the left IJ, left subclavian, left brachial, left basilic, and left axillary veins Anti-Xa was 0.64 which falls in the therapeutic range PF4 was checked due to worsening thrombocytopenia and new clots and was negative Discussed with Hem/onc: advised to continue Lovenox DM TYPE II: Pharmacy glycemic control consulted, appreciate recommendations Last A1C:6.4 on 01/31/17 Continue ISS, lantus Monitor Blood sugar levels Atrial Fibrillation: Rate controlled on metoprolol and Lovenox Stable Chronic Back Pain: continued methadone stable Anxiety: Was initially on Precedex drip for anxiety and was changed to Ativan and Valium Consulted Psych to assist with management of anxiety and depression, but patient does not want to try gabapentin and requests his medication doses be raised which is risky given his respiratory status Continue current medications DVT PX: on Lovenox SQ CODE STATUS: DNR Disposition: Critical but stable Prognosis Poor Plan to discharge to LTAC if approved PT/OT Vital Signs: Date Time Temp Pulse Resp B/P (MAP) Pulse Ox O2 Delivery O2 Flow Rate FiO2 04/12/17 11:23 90 16 90 Nasal Cannula 35.0 34 04/12/17 08:00 Nasal Cannula 40.0 04/12/17 07:53 99 16 94 Nasal Cannula 35.0 33 04/12/17 07:20 36.8 92 20 116/75 (89) 94 High Flow Oxygen 04/12/17 03:39 99 16 91 Nasal Cannula 40.0 40 04/12/17 00:00 92 High Flow Oxygen 40.0 45 04/11/17 23:42 102 16 92 Nasal Cannula 40.0 40 04/11/17 19:36 100 16 92 Nasal Cannula 40.0 40 04/11/17 18:00 High Flow Oxygen 40.0 45 BiPAP 04/11/17 16:21 96 16 95 Nasal Cannula 40.0 45 04/11/17 14:50 36.5 109 22 142/81 (101) 90 Free Flow/Blowby 04/11/17 14:11 110 77 Lab Results: Results Past 24 Hours Test 04/11/17 16:45 04/11/17 20:17 04/12/17 02:26 04/12/17 02:47 Range/Units Bedside Glucose 209 196 64 69 70-99 mg/dl Test 04/12/17 03:21 04/12/17 06:40 04/12/17 07:50 04/12/17 08:33 Range/Units Bedside Glucose 143 173 173 70-99 mg/dl Sodium Level 136 136-145 mmol/L Potassium Level 4.0 3.5-5.1 mmol/L Chloride Level 97 98-107 mmol/L Carbon Dioxide Level 37 21-32 mmol/L Anion Gap 2.0 3-11 mmol/L Blood Urea Nitrogen 20 7-18 mg/dl Creatinine 0.80 0.60-1.40 mg/dl Est Creatinine Clear Calc Drug Dose 145.8 ml/min Estimated GFR () 117.4 Estimated GFR (Non- 101.3 BUN/Creatinine Ratio 25.6 10-20 Random Glucose 156 70-99 mg/dl Calcium Level 9.3 8.5-10.1 mg/dl Magnesium Level 1.9 1.8-2.4 mg/dl Test 04/12/17 11:50 Range/Units Bedside Glucose 133 70-99 mg/dl
[2017-04-12] MEDS: TRAMADOL HCL 50 MG TAB PO PRN (17:48)
--- NOTE | 2017-04-12 19:34 | PULMONARY CONSULTATION ---
DATE OF CONSULTATION: 04/12/2017 PULMONARY MEDICINE CONSULTATION REASON FOR CONSULTATION: History of small cell carcinoma of the lung. HISTORY OF PRESENT ILLNESS: A 56-year-old unfortunate white male whose primary care physician is Dr. Zamudio who was admitted to [facility] on February [address] Maxwell. The patient was evaluated by Dr. Em from pulmonary medicine on 11:25. He has a diagnosis of stage IIIB small cell lung cancer of the left upper lobe status post radiation and chemotherapy. He was admitted for hypoxic respiratory failure felt to be secondary to radiation pneumonitis and bilateral pulmonary emboli. He was then discharged to [facility] on 02/11/2017, but had increased cough with sputum production, denying hemoptysis. He had severe malaise and fatigue. The patient had been placed on steroid therapy. He was found to be further hypoxic at [facility] and then placed on 100% nonrebreather and brought to the Emergency Room in late January with a fever of 38.8. Chest x-ray at that time showed extensive bilateral airspace opacities with dense left lung consolidation. He was started on vancomycin, cefepime and Levaquin for hospital-acquired pneumonitis and also received one dose of azithromycin. He was hydrated, placed on BiPAP and eventually switched to a 15 liter Oxymizer mask with borderline saturation. He was then transferred to the ICU in acute hypoxic respiratory failure and then underwent intubation with mechanical ventilator assistance. He was placed on dobutamine and diuresed for what was felt to be a degree of CHF. He was anemic with hemoglobin of 8.8. He has been followed by Dr. Brett Gale from hematology/oncology and he has also seen Dr. Mendez from nephrology as well. He has been hyponatremic and ABGs has shown some improvement. He has putting on 8-10 liters of urine daily at one point. He was eventually extubated and transferred out of the unit. Palliative care consultation was obtained on 02/26/2017. He was eventually discharged on March [address] [facility] but then readmitted through the Emergency Room on March [address] Gant in the ER with increasing hypoxemia. He was then transferred to the unit Room with upper extremity DVT and subsequent pulmonary emboli; placed on BiPAP, but the patient refused. He has been here now for several weeks and states there is a meeting being planned for 3:30 today to discuss his future care. Saturation is 94% on 6 liters. He apparently is less anxious than he was yesterday. Blood cultures were negative, sputum did not grow out a pathogen. He was empirically started back on IV vancomycin, cefepime, Levaquin and Solu-Medrol. The plan was to discharge him to an LTAC, but the suspicion is that his O2 requirements are too high for him to be accepted there, although I do not know that that is conclusive. He was to complete his antibiotic therapy today. He is on a sliding scale of insulin and is receiving aerosolized bronchodilator. He is also on Lovenox 80 mg subQ q. 12 hours. Most recent chest x-ray was 03/23/2017, which showed no change from March 21 with persistent bilateral airspace opacities and the left apical air fluid level was noted. The last CT scan of the chest on 02/24/2017 was reviewed and this showed multifocal multilobar distribution of extensive airspace and ground-glass opacities. For details of past medical history, medications, family and social history, I refer you to current and past record. PHYSICAL EXAMINATION: GENERAL: Well developed, chronically ill appearing white male, conversant with me but appeared to be anxious about what his future plans were to be. VITAL SIGNS: Temperature 36.8, pulse 90 and regular, respiratory rate 16, O2 sat 90% on 35%/nasal cannula. SKIN: Without lesion. HEENT: Atraumatic, normocephalic. PERRLA. EOMI. Conjunctivae pale. Sclerae nonicteric. Fundi benign. Tympanic membranes within normal limits. Pharyngeal exam intact. LUNGS: Distant P&A with scattered rhonchi, left posterior. CARDIAC: Regular rate and rhythm. I do not appreciate a gallop. ABDOMEN: Soft, scaphoid. EXTREMITIES: Trace pedal edema. No clubbing or peripheral cyanosis. NEUROLOGIC: Intact. OVERALL ASSESSMENT: A 56-year-old with history of extensive small cell carcinoma status post chemoradiation with radiation pneumonitis, presently positioned to go to a long-term acute care facility. The patient has completed his intravenous antibiotics and although was stable for a cardiopulmonary standpoint. I have to review all his serial chest x-rays and CAT scans to see how the development of most recent chest x-ray has occurred. I suspect we have a combination of recurrent potentially recurrent cancer, pneumonitis, and radiation pneumonitis. I am not at all sure this patient has any reversible component to his disease and will discuss further his future plans with his primary hospitalist service and Dr. Gale.
[2017-04-12] MEDS: QUETIAPINE FUMARATE 25 MG TAB PO SCH (21:18)
[2017-04-12] MEDS: ZOLPIDEM TARTRATE 10 MG TAB PO SCH (21:24)
[2017-04-13] VITALS (10 sets, daily range): BP systolic 123–134; BP diastolic 76–82; PULSE 89–102; TEMP 36.6–37.1; O2SAT 93–98
[2017-04-13] MEDS: LEVALBUTEROL 1.25MG/0.5ML NEB INH SCH ×7 (00:01→23:10)
[2017-04-13] MEDS: IPRATROPIUM BROMIDE NEB SOLN 0.02% 2.5 ML VIAL INH SCH ×7 (00:01→23:10)
[2017-04-13] MEDS: ENOXAPARIN 80 MG/0.8 ML SYR SQ SCH ×2 (05:25→17:31)
[2017-04-13] MEDS: METHADONE HCL 10 MG TAB PO SCH ×4 (05:25→23:37)
[2017-04-13] MEDS: DOCUSATE SODIUM 100 MG CAP PO SCH ×2 (08:24→21:00)
[2017-04-13] MEDS: CLONAZEPAM 0.5 MG TAB PO SCH ×2 (08:34→21:28)
[2017-04-13] MEDS: FAMOTIDINE 20 MG TAB PO SCH ×2 (08:34→21:29)
[2017-04-13] MEDS: TRIAMCINOLONE ACET NASAL SPRAY 10.8ML BTL NAE SCH (08:35)
[2017-04-13] MEDS: ACETYLCYSTEINE 600 MG CAP PO SCH ×2 (08:35→21:29)
[2017-04-13] MEDS: METOPROLOL SUCC 25MG EXT REL TAB PO SCH (08:35)
[2017-04-13] MEDS: MAGNESIUM OXIDE 400 MG TAB PO SCH (08:35)
[2017-04-13] MEDS: DICLOFENAC SOD 1% GEL 100 GM TUBE EXT SCH ×2 (08:35→21:28)
[2017-04-13] MEDS: INSULIN ASPART 100 UNITS/ML 3 ML PEN SC SCH ×4 (08:40→21:34)
[2017-04-13] MEDS: INSULIN GLARGINE SOLOSTAR 100 UNITS/ML 3 ML PEN SC SCH (08:40)
--- NOTE | 2017-04-13 08:42 | Pharmacy Progress Note ---
Glycemic Control Progress Note Date of Service Apr 13, 2017. Scope Glycemic Pharmacist consulted for glycemic control to write orders per [facility] inpatient glycemic control protocol. Objective Accuchecks BSG (last 24hrs): Test 04/12/17 11:50 04/12/17 16:29 04/12/17 20:19 04/13/17 07:38 Bedside Glucose 133 mg/dl (70-99) 186 mg/dl (70-99) 171 mg/dl (70-99) 97 mg/dl (70-99) HbA1c: 6.4% 01/31/17 Recent Pertinent Medications The patient is currently receiving: * Basal insulin: Lantus 50 units SQ Q AM; NPH SQ w/ lunch * Correctional Insulin: Novolog Correction per scale ACHS Goal Range: Low 110 mg/dL - High 140 mg/dL Correction Factor: 10 mg/dL/unit w/ breakfast; 20mg/dL /unit w/ lunch + dinner + HS * Prandial insulin: Per carb ratio of 1 unit per 2 grams CHO consumed w / breakfast; 1 unit per 6gm CHO w/ lunch + dinner; 1 unit per 20gm CHO HS Assessment & Plan ASSESSMENT: 04/13/17 * Glycemic control acceptable in this patient with the current insulin regimen * Insulin doses have been adjusted multiple times throughout this admission and ultimately he ended up receiving improved control with the combination of Lantus + NPH + Novolog using multiple CF's and CR's * The current regimen appears to be performing well. Only change I plan to make at this time is lessen CF at bedtime as his fasting AM BSG today was less than 100 * Prednisone 40mg PO daily in the AM continues. Should this dose decrease the insulin regimen will likely need reduced PLAN FOR INPATIENT GLYCEMIC CONTROL: * Continue Lantus 50 units SQ Q AM * Continue NPH 50 units w/ lunch * Continuing correction factor of 10 mg/dl/unit w/ breakfast, 20mg/dl/unit w/ lunch + dinner, change HS CF to 25mg/dL/unit * Continuing carb ratio of 1 unit per 2 grams CHO consumed w/ breakfast, 1 unit per 6 grams CHO consumed w/ lunch + dinner, 1 unit per 20gm CHO consumed at HS * Continuing goal range of Low 110 mg/dL - High 140 mg/dL * Reassess insulin dose with each step-down in steroid dose * Please note that the plan above was derived based on current level of insulin resistance and hospital stress. These recommendations are appropriate for inpatient admission only. Plan of care upon discharge will need to be reassessed to avoid potential outpatient hypo/hyperglycemia. Thank you.
[2017-04-13] MEDS: LORAZEPAM 0.5 MG TAB PO PRN ×2 (12:09→18:05)
[2017-04-13] MEDS: INSULIN HUMAN NPH SC SCH (12:11)
--- NOTE | 2017-04-13 15:41 | Progress Note ---
Internal Med Progress Note Date of Service: Apr 13, 2017. Provider Documentation: SUBJECTIVE: Seen and examined at bedside No new complaints Saturating 98% on 7 liters Feels less anxious Subjectively feels his breathing is better Prefers his ambien to be given at 10.30pm OBJECTIVE: Vital Signs-as noted below Physical Exam: General Appearance:Moderately built and nourished, no apparent distress Head: normocephalic, Atraumatic Eyes: normal inspection, EOMI, PERRL Neck: supple, Trachea midline Respiratory/Chest: Decreased breath sounds, CTA Cardiovascular: S1, S2, No murmur Abdomen/GI:Soft, Non tender, Bowel sounds present Extremities/Musculoskelatal:normal inspection, Trace edema Neurologic/Psych:AAOX3, grossly no focal neurological deficits Skin: normal color, warm Lab data as noted below. ASSESSMENT & PLAN: Acute on Chronic Respiratory failure with Hypoxia: Secondary to HCAP, COPD Exacerbation, H/O Lung Cancer, recent Radiation Pneumonitis Blood cultures: Negative Sputum culture: Contamination:last admission BAL grew meño MRSA screen Negative Was on empiric Vanc, Cefepime, Levaquin IV solu-medrol transitioned to PO prednisone Continue Oxygen support, BIPAP QHS/PRN Continue Nebs Appreciate Sumo Wrestler/Pulmonology Input Plan to discharge to LTAC if approved Oxygen requirement coming down: Saturating 98% on 7 liters but easily desaturates with activity Critical but stable, Poor Prognosis Appreciate Input from Pulmonary Continue current management Possible Sepsis: lactic acid normal on repeat, but was elevated on admission POC lactic acid IV fluids discontinued Completed Abx therapy Small Cell Lung Cancer: 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, s/p chemo and radiation Oncology on board No plan for additional chemo given his current condition Palliative care consulted; appreciate recommendations; patient signed POLST form last admission DNR/DNI which was confirmed by ICU staff after meeting with the family as the -patient decided he would not want to have a trach/PEG and understands that an intubation at this point would almost certainly result in trach/PEG Poor prognosis: Patient is aware of his condition Recent B/L PE & New LUE DVT: continue Lovenox BID; patient is injecting this himself into his thigh as he refuses subcutaneous injections into his abdomen and insists he takes them at home in his thigh LUE Doppler done due to new edema, + for DVT in the left IJ, left subclavian, left brachial, left basilic, and left axillary veins Anti-Xa was 0.64 which falls in the therapeutic range PF4 was checked due to worsening thrombocytopenia and new clots and was negative Discussed with Hem/onc: advised to continue Lovenox DM TYPE II: Pharmacy glycemic control consulted, appreciate recommendations Last A1C:6.4 on 01/31/17 Continue ISS, lantus Monitor Blood sugar levels Atrial Fibrillation: Rate controlled on metoprolol and Lovenox Stable Chronic Back Pain: continued methadone stable Anxiety: Was initially on Precedex drip for anxiety and was changed to Ativan and Valium Consulted Psych to assist with management of anxiety and depression, but patient does not want to try gabapentin and requests his medication doses be raised which is risky given his respiratory status Continue current medications DVT PX: on Lovenox SQ CODE STATUS: DNR Disposition: Critical but stable Prognosis Poor Plan to discharge to LTAC [facility] Rehab when approved PT/OT Vital Signs: Date Time Temp Pulse Resp B/P (MAP) Pulse Ox O2 Delivery O2 Flow Rate FiO2 04/13/17 11:31 89 16 98 Mask 7.0 04/13/17 08:00 Oxymask 6.0 04/13/17 07:27 37.1 98 18 123/82 (96) 94 6.0 04/13/17 07:22 96 16 97 Mask 6.0 04/13/17 03:36 95 16 97 Mask 6.0 04/13/17 00:10 Oxymask 6.0 04/13/17 00:01 92 16 94 Mask 6.0 04/12/17 23:06 36.4 90 18 119/73 (88) 96 Oxymask 6.0 04/12/17 19:40 96 16 96 Mask 6.0 04/12/17 16:38 Oxymask 6.0 Lab Results: Results Past 24 Hours Test 04/12/17 16:29 04/12/17 20:19 04/13/17 07:38 04/13/17 11:51 Range/Units Bedside Glucose 186 171 97 139 70-99 mg/dl
[2017-04-13] MEDS: QUETIAPINE FUMARATE 25 MG TAB PO SCH (21:29)
[2017-04-13] MEDS: ZOLPIDEM TARTRATE 10 MG TAB PO SCH (22:30)
[2017-04-14] VITALS (10 sets, daily range): BP systolic 106–127; BP diastolic 72–83; PULSE 92–102; TEMP 36.2–36.7; O2SAT 93–99
[2017-04-14] MEDS: LEVALBUTEROL 1.25MG/0.5ML NEB INH SCH ×6 (04:03→22:46)
[2017-04-14] MEDS: IPRATROPIUM BROMIDE NEB SOLN 0.02% 2.5 ML VIAL INH SCH ×6 (04:03→22:46)
[2017-04-14] MEDS: METHADONE HCL 10 MG TAB PO SCH ×4 (05:53→23:42)
[2017-04-14] MEDS: ENOXAPARIN 80 MG/0.8 ML SYR SQ SCH ×2 (05:53→17:25)
[2017-04-14] MEDS: TRIAMCINOLONE ACET NASAL SPRAY 10.8ML BTL NAE SCH (09:00)
[2017-04-14] MEDS: DICLOFENAC SOD 1% GEL 100 GM TUBE EXT SCH ×2 (09:00→22:11)
[2017-04-14] MEDS: DOCUSATE SODIUM 100 MG CAP PO SCH (09:00)
[2017-04-14] MEDS: METOPROLOL SUCC 25MG EXT REL TAB PO SCH (09:09)
[2017-04-14] MEDS: MAGNESIUM OXIDE 400 MG TAB PO SCH (09:09)
[2017-04-14] MEDS: FAMOTIDINE 20 MG TAB PO SCH ×2 (09:10→22:10)
[2017-04-14] MEDS: ACETYLCYSTEINE 600 MG CAP PO SCH ×2 (09:10→22:10)
[2017-04-14] MEDS: INSULIN ASPART 100 UNITS/ML 3 ML PEN SC SCH ×4 (09:17→22:22)
[2017-04-14] MEDS: INSULIN GLARGINE SOLOSTAR 100 UNITS/ML 3 ML PEN SC SCH (09:18)
[2017-04-14] MEDS: CLONAZEPAM 0.5 MG TAB PO SCH ×2 (09:18→22:16)
[2017-04-14] MEDS: INSULIN HUMAN NPH SC SCH (13:35)
[2017-04-14] MEDS: LORAZEPAM 0.5 MG TAB PO PRN (14:09)
--- NOTE | 2017-04-14 15:56 | Progress Note ---
Internal Med Progress Note Date of Service: Apr 14, 2017. Provider Documentation: SUBJECTIVE: Seen and examined at bedside No significant change from yesterday Saturating 97% on 6 liters Denies chest pain, dizziness Less SOB OBJECTIVE: Vital Signs-as noted below Physical Exam: General Appearance:Moderately built and nourished, no apparent distress Head: normocephalic, Atraumatic Eyes: normal inspection, EOMI, PERRL Neck: supple, Trachea midline Respiratory/Chest: Decreased breath sounds, CTA Cardiovascular: S1, S2, No murmur Abdomen/GI:Soft, Non tender, Bowel sounds present Extremities/Musculoskelatal:normal inspection, Trace edema Neurologic/Psych:AAOX3, grossly no focal neurological deficits Skin: normal color, warm Lab data as noted below. ASSESSMENT & PLAN: Acute on Chronic Respiratory failure with Hypoxia: Secondary to HCAP, COPD Exacerbation, H/O Lung Cancer, recent Radiation Pneumonitis Blood cultures: Negative Sputum culture: Contamination:last admission BAL grew meño MRSA screen Negative Was on empiric Vanc, Cefepime, Levaquin IV solu-medrol transitioned to PO prednisone taper Continue Oxygen support, BIPAP QHS/PRN Continue Nebs Appreciate Gear Grinding Machine Operator/Pulmonology Input Plan to discharge to LTAC [facility] SNF once approved Oxygen requirement coming down: Saturating 97% on 6 liters but easily desaturates with activity Critical but stable, Poor Prognosis Appreciate Input from Pulmonary Continue current management Possible Sepsis: lactic acid normal on repeat, but was elevated on admission POC lactic acid IV fluids discontinued Completed Abx therapy Small Cell Lung Cancer: 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, s/p chemo and radiation Oncology on board No plan for additional chemo given his current condition Palliative care consulted; appreciate recommendations; patient signed POLST form last admission DNR/DNI which was confirmed by ICU staff after meeting with the family as the -patient decided he would not want to have a trach/PEG and understands that an intubation at this point would almost certainly result in trach/PEG Poor prognosis: Patient is aware of his condition Recent B/L PE & New LUE DVT: continue Lovenox BID; patient is injecting this himself into his thigh as he refuses subcutaneous injections into his abdomen and insists he takes them at home in his thigh LUE Doppler done due to new edema, + for DVT in the left IJ, left subclavian, left brachial, left basilic, and left axillary veins Anti-Xa was 0.64 which falls in the therapeutic range PF4 was checked due to worsening thrombocytopenia and new clots and was negative Discussed with Hem/onc: advised to continue Lovenox DM TYPE II: Pharmacy glycemic control consulted, appreciate recommendations Last A1C:6.4 on 01/31/17 Continue ISS, lantus Monitor Blood sugar levels Atrial Fibrillation: Rate controlled on metoprolol and Lovenox Stable Chronic Back Pain: continued methadone stable Anxiety: Was initially on Precedex drip for anxiety and was changed to Ativan and Valium Consulted Psych to assist with management of anxiety and depression, but patient does not want to try gabapentin and requests his medication doses be raised which is risky given his respiratory status Continue current medications DVT PX: on Lovenox SQ CODE STATUS: DNR Disposition: Critical but stable Prognosis Poor Plan to discharge to LTAC [facility] Rehab when approved PT/OT Vital Signs: Date Time Temp Pulse Resp B/P (MAP) Pulse Ox O2 Delivery O2 Flow Rate FiO2 04/14/17 15:39 97 16 96 Mask 6.0 04/14/17 15:17 36.7 102 22 127/72 (90) 95 Nasal Cannula 6.0 04/14/17 11:17 96 16 98 Mask 6.0 04/14/17 10:00 Oxymask 6.0 04/14/17 08:00 93 Oxymask 5.0 04/14/17 07:35 36.2 93 18 106/83 (91) 99 Free Flow/Blowby 6.0 04/14/17 07:12 96 16 97 Mask 6.0 04/14/17 04:04 96 16 95 Mask 6.0 04/14/17 00:00 97 Oxymask 5.0 45 04/13/17 23:19 36.6 97 20 124/77 (93) 95 Oxymask 04/13/17 23:10 96 16 97 Mask 6.0 04/13/17 21:08 102 16 93 Mask 5.0 04/13/17 16:58 Oxymask 6.0 04/13/17 16:41 37.0 101 18 134/76 (95) 96 Nasal Cannula 5.0 Lab Results: Results Past 24 Hours Test 04/13/17 16:19 04/13/17 20:17 04/14/17 07:29 04/14/17 11:11 Range/Units Bedside Glucose 228 196 105 181 70-99 mg/dl
[2017-04-14] MEDS: TRAMADOL HCL 50 MG TAB PO PRN (18:08)
[2017-04-14] MEDS: DOCUSATE SODIUM SYRUP 20MG/5ML 480ML PO SCH (21:00)
[2017-04-14] MEDS ORDERED: DOCUSATE SODIUM 100 MG/10 ML UDC PO SCH (21:00)
[2017-04-14] MEDS: QUETIAPINE FUMARATE 25 MG TAB PO SCH (22:10)
[2017-04-14] MEDS: ZOLPIDEM TARTRATE 10 MG TAB PO SCH (23:41)
[2017-04-15] VITALS (11 sets, daily range): BP systolic 112–125; BP diastolic 70–78; PULSE 65–98; TEMP 35.4–36.6; O2SAT 93–98
[2017-04-15] MEDS: IPRATROPIUM BROMIDE NEB SOLN 0.02% 2.5 ML VIAL INH SCH ×6 (03:33→23:19)
[2017-04-15] MEDS: LEVALBUTEROL 1.25MG/0.5ML NEB INH SCH ×6 (03:33→23:19)
[2017-04-15] MEDS: ENOXAPARIN 80 MG/0.8 ML SYR SQ SCH ×2 (06:18→18:06)
[2017-04-15] MEDS: METHADONE HCL 10 MG TAB PO SCH ×4 (06:19→23:35)
[2017-04-15] MEDS: DOCUSATE SODIUM SYRUP 20MG/5ML 480ML PO SCH ×2 (08:16→20:18)
[2017-04-15] MEDS: CLONAZEPAM 0.5 MG TAB PO SCH ×2 (08:17→20:17)
[2017-04-15] MEDS: METOPROLOL SUCC 25MG EXT REL TAB PO SCH (08:17)
[2017-04-15] MEDS: FAMOTIDINE 20 MG TAB PO SCH ×2 (08:18→20:17)
[2017-04-15] MEDS: MAGNESIUM OXIDE 400 MG TAB PO SCH (08:18)
[2017-04-15] MEDS: ACETYLCYSTEINE 600 MG CAP PO SCH ×2 (08:18→20:18)
[2017-04-15] MEDS: TRIAMCINOLONE ACET NASAL SPRAY 10.8ML BTL NAE SCH (08:19)
[2017-04-15] MEDS: DICLOFENAC SOD 1% GEL 100 GM TUBE EXT SCH ×2 (08:21→20:18)
[2017-04-15 08:34] LABS: CALCIUM 9.5 mg/dl (8.5-10.1); CREATININE 0.59 mg/dl (0.60-1.40); POTASSIUM 3.9 mmol/L (3.5-5.1)
[2017-04-15] MEDS: INSULIN ASPART 100 UNITS/ML 3 ML PEN SC SCH ×3 (08:34→22:26)
[2017-04-15] MEDS: INSULIN GLARGINE SOLOSTAR 100 UNITS/ML 3 ML PEN SC SCH (09:13)
[2017-04-15] MEDS: INSULIN HUMAN NPH SC SCH (12:05)
[2017-04-15] MEDS: LORAZEPAM 0.5 MG TAB PO PRN ×2 (12:10→18:07)
[2017-04-15] MEDS: TRAMADOL HCL 50 MG TAB PO PRN ×2 (12:10→20:17)
--- NOTE | 2017-04-15 14:46 | Pharmacy Progress Note ---
Glycemic Control Progress Note Date of Service Apr 15, 2017. Scope Glycemic Pharmacist consulted for glycemic control to write orders per [facility] inpatient glycemic control protocol. Objective Accuchecks BSG (last 24hrs): Test 04/14/17 16:30 04/14/17 20:06 04/15/17 07:15 04/15/17 07:37 Bedside Glucose 105 mg/dl (70-99) 141 mg/dl (70-99) 98 mg/dl (70-99) Random Glucose 72 mg/dl (70-99) Test 04/15/17 11:05 Bedside Glucose 130 mg/dl (70-99) Recent Pertinent Medications The patient is currently receiving: * Basal insulin: Lantus 50 units SQ Q AM; NPH 50 units SQ w/ lunch * Correctional Insulin: Novolog Correction per scale ACHS Goal Range: Low 110 mg/dL - High 140 mg/dL Correction Factor: 10 mg/dL/unit w/ breakfast; 20mg/dL /unit w/ lunch + dinner and 25mg/dL/unit at bedtime * Prandial insulin: Per carb ratio of 1 unit per 2 grams CHO consumed w / breakfast; 1 unit per 6gm CHO w/ lunch + dinner; 1 unit per 20gm CHO HS Assessment & Plan ASSESSMENT: 04/13/17 * Glycemic control acceptable in this patient with the current insulin regimen * Insulin doses have been adjusted multiple times throughout this admission and ultimately he ended up receiving improved control with the combination of Lantus + NPH + Novolog using multiple CF's and CR's * The current regimen appears to be performing well. Only change I plan to make at this time is lessen CF at bedtime as his fasting AM BSG today was less than 100 * Prednisone 40mg PO daily in the AM continues. Should this dose decrease the insulin regimen will likely need reduced 04/15/17 * Glycemic remains acceptable * BSGs now trending lower since he stepped down to prednisone 30mg daily * Fasting AM BSG 72-98 this AM w/ 50 units lantus + 50 units NPH on board - will titrate back the NPH dose * Post-prandial BSGs also running a little lower - will adjust CR's as well PLAN FOR INPATIENT GLYCEMIC CONTROL: * Continue Lantus 50 units SQ Q AM * Decrease NPH to 35 units w/ lunch * Continuing correction factor of 10 mg/dl/unit w/ breakfast, 20mg/dl/unit w/ lunch + dinner, and 25mg/dL/unit at HS * Change carb ratio to 1 unit per 3 grams CHO consumed w/ breakfast, 1 unit per 7 grams CHO consumed w/ lunch + dinner, 1 unit per 20gm CHO consumed at HS * Continuing goal range of Low 110 mg/dL - High 140 mg/dL * Reassess insulin dose with each step-down in steroid dose * Please note that the plan above was derived based on current level of insulin resistance and hospital stress. These recommendations are appropriate for inpatient admission only. Plan of care upon discharge will need to be reassessed to avoid potential outpatient hypo/hyperglycemia. Thank you.
--- NOTE | 2017-04-15 15:02 | Progress Note ---
Internal Med Progress Note Date of Service: Apr 15, 2017. Provider Documentation: SUBJECTIVE: Seen and examined at bedside Feels tired Saturating 98% on 6 liters Denies chest pain, dizziness Less SOB No other complaints OBJECTIVE: Vital Signs-as noted below Physical Exam: General Appearance:Moderately built and nourished, no apparent distress Head: normocephalic, Atraumatic Eyes: normal inspection, EOMI, PERRL Neck: supple, Trachea midline Respiratory/Chest: Decreased breath sounds, CTA Cardiovascular: S1, S2, No murmur Abdomen/GI:Soft, Non tender, Bowel sounds present Extremities/Musculoskelatal:normal inspection, Trace edema Neurologic/Psych:AAOX3, grossly no focal neurological deficits Skin: normal color, warm Lab data as noted below. ASSESSMENT & PLAN: Acute on Chronic Respiratory failure with Hypoxia: Secondary to HCAP, COPD Exacerbation, H/O Lung Cancer, recent Radiation Pneumonitis Blood cultures: Negative Sputum culture: Contamination:last admission BAL grew meño MRSA screen Negative Was on empiric Vanc, Cefepime, Levaquin IV solu-medrol transitioned to PO prednisone taper Continue Oxygen support, BIPAP QHS/PRN Continue Nebs Appreciate Clinical Services Consultant/Pulmonology Input Plan to discharge to LTAC [facility] SNF once approved Oxygen requirement coming down: Saturating 98% on 6 liters but easily desaturates with activity Critical but stable, Poor Prognosis Appreciate Input from Pulmonary Continue current management Possible Sepsis: lactic acid normal on repeat, but was elevated on admission POC lactic acid IV fluids discontinued Completed Abx therapy Small Cell Lung Cancer: 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, s/p chemo and radiation Oncology on board No plan for additional chemo given his current condition Palliative care consulted; appreciate recommendations; patient signed POLST form last admission DNR/DNI which was confirmed by ICU staff after meeting with the family as the -patient decided he would not want to have a trach/PEG and understands that an intubation at this point would almost certainly result in trach/PEG Poor prognosis: Patient is aware of his condition Recent B/L PE & New LUE DVT: continue Lovenox BID; patient is injecting this himself into his thigh as he refuses subcutaneous injections into his abdomen and insists he takes them at home in his thigh LUE Doppler done due to new edema, + for DVT in the left IJ, left subclavian, left brachial, left basilic, and left axillary veins Anti-Xa was 0.64 which falls in the therapeutic range PF4 was checked due to worsening thrombocytopenia and new clots and was negative Discussed with Hem/onc: advised to continue Lovenox DM TYPE II: Pharmacy glycemic control consulted, appreciate recommendations Last A1C:6.4 on 01/31/17 Continue ISS, lantus Monitor Blood sugar levels Atrial Fibrillation: Rate controlled on metoprolol and Lovenox Stable Chronic Back Pain: continued methadone stable Anxiety: Was initially on Precedex drip for anxiety and was changed to Ativan and Valium Consulted Psych to assist with management of anxiety and depression, but patient does not want to try gabapentin and requests his medication doses be raised which is risky given his respiratory status Continue current medications DVT PX: on Lovenox SQ CODE STATUS: DNR Disposition: Critical but stable Prognosis Poor Plan to discharge to LTAC [facility] Rehab when approved PT/OT Awaiting for placement Vital Signs: Date Time Temp Pulse Resp B/P (MAP) Pulse Ox O2 Delivery O2 Flow Rate FiO2 04/15/17 14:46 36.6 94 20 114/70 (85) 98 Oxymask 6.0 04/15/17 14:32 92 15 96 Mask 6.0 04/15/17 11:28 92 16 97 Mask 6.0 04/15/17 08:20 95 Oxymask 6.0 04/15/17 07:33 86 15 97 Mask 6.0 04/15/17 07:25 35.4 65 20 112/75 (87) 96 Oxymask 6.0 04/15/17 03:34 92 16 93 Mask 6.0 04/15/17 00:21 36.5 91 20 123/76 (92) 97 6.0 04/15/17 00:00 Mask 6.0 04/14/17 22:47 92 16 94 Mask 6.0 04/14/17 20:05 92 16 93 Mask 6.0 04/14/17 16:35 Mask 5.0 04/14/17 15:39 97 16 96 Mask 6.0 04/14/17 15:17 36.7 102 22 127/72 (90) 95 Nasal Cannula 6.0 Lab Results: Results Past 24 Hours Test 04/14/17 16:30 04/14/17 20:06 04/15/17 07:15 04/15/17 07:37 Range/Units Bedside Glucose 105 141 98 70-99 mg/dl Sodium Level 139 136-145 mmol/L Potassium Level 3.9 3.5-5.1 mmol/L Chloride Level 98 98-107 mmol/L Carbon Dioxide Level 36 21-32 mmol/L Anion Gap 5.0 3-11 mmol/L Blood Urea Nitrogen 19 7-18 mg/dl Creatinine 0.59 0.60-1.40 mg/dl Est Creatinine Clear Calc Drug Dose 197.7 ml/min Estimated GFR () 133.0 Estimated GFR (Non- 114.8 BUN/Creatinine Ratio 32.7 10-20 Random Glucose 72 70-99 mg/dl Calcium Level 9.5 8.5-10.1 mg/dl Magnesium Level 2.1 1.8-2.4 mg/dl Test 04/15/17 11:05 Range/Units Bedside Glucose 130 70-99 mg/dl
[2017-04-15] MEDS ORDERED: INSULIN ASPART 100 UNITS/ML 3 ML PEN SC ONE (16:30)
[2017-04-15] MEDS: QUETIAPINE FUMARATE 25 MG TAB PO SCH (20:19)
[2017-04-15] MEDS: ZOLPIDEM TARTRATE 10 MG TAB PO SCH (22:26)
[2017-04-16] VITALS (13 sets, daily range): BP systolic 108–129; BP diastolic 69–79; PULSE 67–99; TEMP 36.4–36.6; O2SAT 85–100
[2017-04-16] MEDS: LEVALBUTEROL 1.25MG/0.5ML NEB INH SCH ×6 (03:42→23:15)
[2017-04-16] MEDS: IPRATROPIUM BROMIDE NEB SOLN 0.02% 2.5 ML VIAL INH SCH ×6 (03:42→23:15)
[2017-04-16] MEDS: METHADONE HCL 10 MG TAB PO SCH ×4 (05:37→23:57)
[2017-04-16] MEDS: ENOXAPARIN 80 MG/0.8 ML SYR SQ SCH ×2 (05:38→18:05)
[2017-04-16] MEDS: DOCUSATE SODIUM SYRUP 20MG/5ML 480ML PO SCH ×2 (08:20→21:00)
[2017-04-16] MEDS: ACETYLCYSTEINE 600 MG CAP PO SCH ×2 (08:21→21:32)
[2017-04-16] MEDS: DICLOFENAC SOD 1% GEL 100 GM TUBE EXT SCH ×2 (08:21→21:33)
[2017-04-16] MEDS: TRIAMCINOLONE ACET NASAL SPRAY 10.8ML BTL NAE SCH (08:21)
[2017-04-16] MEDS: CLONAZEPAM 0.5 MG TAB PO SCH ×2 (08:21→21:32)
[2017-04-16] MEDS: METOPROLOL SUCC 25MG EXT REL TAB PO SCH (08:22)
[2017-04-16] MEDS: FAMOTIDINE 20 MG TAB PO SCH ×2 (08:22→21:33)
[2017-04-16] MEDS: MAGNESIUM OXIDE 400 MG TAB PO SCH (08:22)
[2017-04-16] MEDS: TRAMADOL HCL 50 MG TAB PO PRN (08:22)
[2017-04-16] MEDS: INSULIN ASPART 100 UNITS/ML 3 ML PEN SC SCH ×4 (08:29→21:43)
[2017-04-16] MEDS: INSULIN GLARGINE SOLOSTAR 100 UNITS/ML 3 ML PEN SC SCH (08:29)
[2017-04-16] MEDS ORDERED: INSULIN HUMAN NPH SC SCH (12:00)
[2017-04-16] MEDS: LORAZEPAM 0.5 MG TAB PO PRN ×2 (12:07→19:42)
[2017-04-16] MEDS: INSULIN HUMAN NPH SC SCH (12:10)
--- NOTE | 2017-04-16 15:10 | Progress Note ---
Internal Med Progress Note Date of Service: Apr 16, 2017. Provider Documentation: SUBJECTIVE: Seen and examined at bedside States feeling tired Saturating 97% on 6 liters Denies chest pain, dizziness Less SOB, slowly improving No other complaints OBJECTIVE: Vital Signs-as noted below Physical Exam: General Appearance:Moderately built and nourished, no apparent distress Head: normocephalic, Atraumatic Eyes: normal inspection, EOMI, PERRL Neck: supple, Trachea midline Respiratory/Chest: Decreased breath sounds, CTA Cardiovascular: S1, S2, No murmur Abdomen/GI:Soft, Non tender, Bowel sounds present Extremities/Musculoskelatal:normal inspection, Trace edema Neurologic/Psych:AAOX3, grossly no focal neurological deficits Skin: normal color, warm Lab data as noted below. ASSESSMENT & PLAN: Acute on Chronic Respiratory failure with Hypoxia: Secondary to HCAP, COPD Exacerbation, H/O Lung Cancer, recent Radiation Pneumonitis Blood cultures: Negative Sputum culture: Contamination:last admission BAL grew meño MRSA screen Negative Was on empiric Vanc, Cefepime, Levaquin IV solu-medrol transitioned to PO prednisone taper Continue Oxygen support, BIPAP QHS/PRN Continue Nebs Appreciate Screener And Blender/Pulmonology Input Plan to discharge to LTAC [facility] SNF once approved Oxygen requirement coming down: Saturating 97% on 6 liters but easily desaturates with activity Critical but stable, Poor Prognosis Appreciate Input from Pulmonary Continue current management waiting for placement Possible Sepsis: lactic acid normal on repeat, but was elevated on admission POC lactic acid IV fluids discontinued Completed Abx therapy Small Cell Lung Cancer: 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, s/p chemo and radiation Oncology on board No plan for additional chemo given his current condition Palliative care consulted; appreciate recommendations; patient signed POLST form last admission DNR/DNI which was confirmed by ICU staff after meeting with the family as the -patient decided he would not want to have a trach/PEG and understands that an intubation at this point would almost certainly result in trach/PEG Poor prognosis: Patient is aware of his condition Recent B/L PE & New LUE DVT: continue Lovenox BID; patient is injecting this himself into his thigh as he refuses subcutaneous injections into his abdomen and insists he takes them at home in his thigh LUE Doppler done due to new edema, + for DVT in the left IJ, left subclavian, left brachial, left basilic, and left axillary veins Anti-Xa was 0.64 which falls in the therapeutic range PF4 was checked due to worsening thrombocytopenia and new clots and was negative Discussed with Hem/onc: advised to continue Lovenox DM TYPE II: Pharmacy glycemic control consulted, appreciate recommendations Last A1C:6.4 on 01/31/17 Continue ISS, lantus Monitor Blood sugar levels Atrial Fibrillation: Rate controlled on metoprolol and Lovenox Stable Chronic Back Pain: continued methadone stable Anxiety: Was initially on Precedex drip for anxiety and was changed to Ativan and Valium Consulted Psych to assist with management of anxiety and depression, but patient does not want to try gabapentin and requests his medication doses be raised which is risky given his respiratory status Continue current medications DVT PX: on Lovenox SQ CODE STATUS: DNR Disposition: Critical but stable Prognosis Poor Plan to discharge to LT[facility] Rehab when approved PT/OT Awaiting for placement Vital Signs: Date Time Temp Pulse Resp B/P (MAP) Pulse Ox O2 Delivery O2 Flow Rate FiO2 04/16/17 08:19 36.4 73 20 108/73 (85) 100 6.0 04/16/17 08:00 Oxymask 6.0 04/16/17 07:42 68 15 94 Mask 6.0 04/16/17 00:05 Oxymask 6.0 04/15/17 23:19 97 15 98 Mask 6.0 04/15/17 23:03 36.4 98 16 125/78 (94) 96 Oxymask 6.0 04/15/17 21:47 96 15 93 Mask 6.0 04/15/17 20:30 Oxymask 6.0 04/15/17 16:00 Oxymask 6.0 Lab Results: Results Past 24 Hours Test 04/15/17 16:11 04/15/17 20:35 04/16/17 07:38 04/16/17 11:34 Range/Units Bedside Glucose 279 141 83 82 70-99 mg/dl
[2017-04-16] MEDS: QUETIAPINE FUMARATE 25 MG TAB PO SCH (21:33)
[2017-04-16] MEDS: ZOLPIDEM TARTRATE 10 MG TAB PO SCH (22:21)
[2017-04-17] VITALS (11 sets, daily range): BP systolic 114–125; BP diastolic 73–76; PULSE 76–103; TEMP 36.5–36.6; O2SAT 93–100
[2017-04-17] MEDS: IPRATROPIUM BROMIDE NEB SOLN 0.02% 2.5 ML VIAL INH SCH ×6 (03:33→23:47)
[2017-04-17] MEDS: LEVALBUTEROL 1.25MG/0.5ML NEB INH SCH ×6 (03:33→23:47)
[2017-04-17] MEDS: ENOXAPARIN 80 MG/0.8 ML SYR SQ SCH ×2 (06:12→18:40)
[2017-04-17] MEDS: METHADONE HCL 10 MG TAB PO SCH ×4 (06:13→23:48)
[2017-04-17] MEDS: DOCUSATE SODIUM SYRUP 20MG/5ML 480ML PO SCH ×2 (08:36→21:00)
[2017-04-17] MEDS: MAGNESIUM OXIDE 400 MG TAB PO SCH (08:38)
[2017-04-17] MEDS: CLONAZEPAM 0.5 MG TAB PO SCH ×2 (08:38→21:25)
[2017-04-17] MEDS: TRAMADOL HCL 50 MG TAB PO PRN (08:38)
[2017-04-17] MEDS: FAMOTIDINE 20 MG TAB PO SCH ×2 (08:38→21:26)
[2017-04-17] MEDS: DICLOFENAC SOD 1% GEL 100 GM TUBE EXT SCH ×2 (08:38→21:25)
[2017-04-17] MEDS: METOPROLOL SUCC 25MG EXT REL TAB PO SCH (08:38)
[2017-04-17] MEDS: ACETYLCYSTEINE 600 MG CAP PO SCH ×2 (08:38→21:26)
[2017-04-17] MEDS: TRIAMCINOLONE ACET NASAL SPRAY 10.8ML BTL NAE SCH (08:38)
[2017-04-17] MEDS: INSULIN GLARGINE SOLOSTAR 100 UNITS/ML 3 ML PEN SC SCH (08:44)
[2017-04-17] MEDS: INSULIN ASPART 100 UNITS/ML 3 ML PEN SC SCH ×4 (08:44→21:32)
--- NOTE | 2017-04-17 09:52 | Progress Note ---
Medicine Progress Note Date & Time of Visit: Apr 17, 2017 at 09:41. Subjective Patient reports having a DELEON today and does not want to "push" the issue of placement. He also states he spoke to his family and does not want to go to [facility] and has another facility in mind. No overnight events noted. Tolerating PO. Currently on 5L at rest but does desat with activity. Objective Last 8 Hrs Date Time Temp Pulse Resp B/P (MAP) Pulse Ox O2 Delivery O2 Flow Rate FiO2 04/17/17 08:07 36.5 92 20 114/74 (87) 96 6.0 04/17/17 07:17 95 16 99 Mask 6.0 04/17/17 03:34 91 16 100 Mask 6.0 Physical Exam: GENERAL: Patient is in no acute distress. HEENT: No acute trauma, normocephalic, mucous membranes moist, no nasal congestion, no scleral icterus. Conjunctivae clear NECK: No stridor, trachea is midline. LUNGS: Mild expiratory wheeze B/L, diminished breath sounds, no rhonchi, breath sounds equal. HEART: Without murmurs, gallops, or rubs, regular rate and rhythm. Tachycardic ABDOMEN: Soft, nontender, bowel sounds positive, no hepatosplenomegaly EXTREMITIES: No cyanosis or edema, moving all 4 limbs without difficulty or pain NEUROLOGIC: Oriented x 3, no acute motor or sensory deficits, no focal weakness. SKIN: No rash, no jaundice, no diaphoresis. Laboratory Results: Last 24 Hours Test 04/16/17 11:34 04/16/17 16:30 04/16/17 20:23 04/17/17 07:22 Bedside Glucose 82 mg/dl 161 mg/dl 156 mg/dl 115 mg/dl Assessment & Plan ACUTE ON CHRONIC RESPIRATORY FAILURE WITH HYPOXIA: -multifactorial related to HCAP, COPD Exacerbation, hx of Small Cell Lung Cancer , Radiation Pneumonitis, and PE -blood cultures: Negative -sputum culture: Contamination:last admission BAL grew meño -MRSA screen Negative -Was on empiric Vanc, Cefepime, Levaquin, now off -was on IV solu-medrol which was tapered to a PO prednisone taper -on Oxygen therapy, BIPAP QHS/PRN -continued on Nebs -Nut Grader and Pulmonology were consulted during this hospitalization, appreciate input -Planning to discharge to LTAC [facility] SNF once approved and bed available -Oxygen requirement slowly decreasing: Saturating 90's on 5 liters today but continues to easily desaturates with any activity -condition is critical but stable with overall poor prognosis POSSIBLE SEPSIS: on admission, now resolved -lactic acid was normal on repeat, but was elevated on admission POC lactic acid -IV fluids discontinued -Completed Abx therapy SMALL CELL LUNG CANCER: -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, s/p chemo and radiation -Oncology consulted and following periodically, no plan for additional chemo/ treatments given his current condition -Palliative care consulted; appreciate recommendations; patient signed POLST form last admission DNR/DNI which was confirmed by ICU staff after meeting with the family as the -patient decided he would not want to have a trach/PEG and understands that an intubation at this point would almost certainly result in trach/PEG -Poor prognosis: Patient is aware of his condition but is struggling to accept it RECENT B/L PE & ACUTE LUE DVT: -continue Lovenox BID; patient is injecting this himself into his thigh as he refuses subcutaneous injections into his abdomen and insists he takes them at home in his thigh -LUE Doppler done due to new edema, + for DVT in the left IJ, left subclavian, left brachial, left basilic, and left axillary veins -Anti-Xa was 0.64 which falls in the therapeutic range -PF4 was checked due to worsening thrombocytopenia and new clots and was negative -discussed with Hem/onc: advised to continue Lovenox DM TYPE II: -Pharmacy glycemic control consulted, appreciate recommendations -HbA1C: 6.4 on 01/31/17 -continue ISS, lantus -monitor BSG ATRIAL FIBRILLATION: -rate controlled, in NSR -on metoprolol and Lovenox -stable CHRONIC BACK PAIN: -continued on methadone -stable ANXIETY: -was initially on Precedex drip when in the ICU, for anxiety and was changed to Ativan and Valium; now on ativan and klonopin -Consulted Psych to assist with management of anxiety and depression, but patient does not want to try gabapentin and requests his medication doses be raised which is risky given his respiratory status -better controlled per patient -continue current medications Continued [facility] stay due to: home environment unsafe for pt, other Discharge planning: uncertain Current Inpatient Medications: Current Inpatient Medications Medications (Trade) Dose Ordered Sig/Prince Route Start Time Stop Time Status Last Admin Dose Admin Miscellaneous Information (Consult Glycemic Management Pharmacy) 1 ea DAILY PRN N/A 03/22/17 03:53 04/21/17 03:52 Magnesium Oxide (Mag-Ox Tab) 400 mg QAM PO 03/22/17 09:00 04/21/17 08:59 04/17/17 08:38 400 MG Metoprolol Succinate (Toprol Xl Tab) 12.5 mg QAM PO 03/22/17 09:00 04/21/17 08:59 04/17/17 08:38 12.5 MG Tramadol HCl (Ultram Tab) 50 mg Q6H PRN PO 03/22/17 02:00 04/21/17 01:59 04/17/17 08:38 50 MG Triamcinolone Acetonide (Nasacort Allergy 24hr) 2 sprays DAILY BJ 03/22/17 09:00 04/21/17 08:59 04/17/17 08:38 2 SPRAYS Ipratropium [place] (Atrovent 0.02% 0.5MG/2.5ML Neb) 0.5 mg Q4R INH 03/22/17 08:00 04/21/17 07:59 04/17/17 07:17 0.5 MG Levalbuterol (Xopenex 1.25MG/ 0.5ML Neb) 1.25 mg Q4R INH 03/22/17 08:00 04/21/17 07:59 04/17/17 07:17 1.25 MG Famotidine (Pepcid Tab) 20 mg BID PO 03/23/17 09:00 04/22/17 08:59 04/17/17 08:38 20 MG Enoxaparin Sodium (Lovenox Inj) 80 mg Q12H SQ 03/23/17 06:00 04/22/17 05:59 04/17/17 06:12 80 MG Lorazepam 1 mg/ Syringe 1 ml @ 1 mls/min Q4H PRN IV 03/31/17 08:45 04/30/17 08:44 04/03/17 13:48 1 MLS/MIN Acetylcysteine (Acetylcysteine Cap) 600 mg BID PO 04/01/17 09:00 05/01/17 08:59 04/17/17 08:38 600 MG Clonazepam (Klonopin Tab) 0.5 mg Q12H PO 04/04/17 09:00 05/04/17 08:59 04/17/17 08:38 0.5 MG Quetiapine Fumarate (seroQUEL TAB) 25 mg HS PO 04/03/17 21:00 05/03/17 20:59 04/16/17 21:33 25 MG Insulin Glargine (Lantus Solostar Pen) 50 units QAM SC 04/07/17 09:00 05/07/17 08:59 Future hold 04/17/17 08:44 50 UNITS Insulin Aspart (novoLOG ASPART) SLIDING SCALE QDB SC 04/08/17 08:00 05/08/17 07:59 Future hold 04/17/17 08:44 20 UNITS Methadone HCl (Dolophine Tab) 15 mg Q6H PO 04/09/17 00:00 04/23/17 00:00 04/17/17 06:13 15 MG Diclofenac Sodium (Voltaren 1% Top Gel) 1 appln BID EXT 04/10/17 09:00 05/10/17 08:59 04/17/17 08:38 1 APPLN Lorazepam (Ativan Tab) 0.5 mg Q6H PRN PO 04/11/17 13:00 05/11/17 12:59 04/16/17 19:42 0.5 MG Insulin Aspart (novoLOG ASPART) SLIDING SCALE BID@1100,1630 SC 04/12/17 11:00 05/12/17 10:59 Future hold 04/16/17 18:03 9 UNITS Insulin Aspart (novoLOG ASPART) SLIDING SCALE DAILY@2100 SC 04/12/17 21:00 05/12/17 20:59 04/16/17 21:43 3 UNITS Zolpidem Tartrate (Ambien Tab) 10 mg DAILY@2230 PO 04/13/17 22:30 04/24/17 21:59 04/16/17 22:21 10 MG Prednisone (PredniSONE TAB) 30 mg DAILY PO 04/15/17 09:00 05/07/17 08:59 04/17/17 08:38 30 MG Docusate Sodium (coLACE SYRUP-SUBSTITUTE) 50 mg BID PO 04/14/17 21:00 05/14/17 20:59 Insulin Human NPH (novoLIN-N NPH) 35 units QDL SC 04/16/17 12:00 05/16/17 11:59 04/16/17 12:10 35 UNITS
--- NOTE | 2017-04-17 10:12 | Pharmacy Progress Note ---
Pharmacy Glycemic Short Note 2 Date of Service Apr 17, 2017. OUTPATIENT ANTIDIABETIC REGIMEN: * Humulin N 75 units AM * Humalog SS * Novolin R 15 TIDM ASSESSMENT: * BSGs over the last 24 hours ranging 82-161 mg/dL * Prednisone was decreased a couple of days ago (40mg --> 30mg), and NPH and Novolog were adjusted accordingly. * Patient continues to receive heavier prandial coverage in the morning, with loosened coverage later in the day. * Will continue while BSGs are stable and adjust as steroid tapers. PLAN FOR INPATIENT GLYCEMIC CONTROL: * Basal insulin: * Lantus 50 units qAM * Bolus insulin: * Continue same NovoLog per scale ACHS or Q6hrs while NPO * Goal Range: Low 110 mg/dL - High 140 mg/dL BREAKFAST ONLY: * Correction Factor: 10 mg/dL/unit * Prandial insulin per carb ratio of 1 unit per 3 grams CHO consumed LUNCH, DINNER: looser parameters once NPH is on board * Correction Factor: 20 mg/dL/unit * Prandial insulin per carb ratio of 1 unit per 7 grams CHO consumed BEDTIME ONLY: * Correction Factor: 25 mg/dL/unit * Prandial insulin per carb ratio of 1 unit per 20 grams of CHO consumed * Steroid induced hyperglycemia coverage: * NPH 0.3 units/kg (35 units) SQ daily with lunch to cover hyperglycemia secondary to prednisone 30mg
--- NOTE | 2017-04-17 10:50 | Pharmacy Progress Note ---
Pharmacy Progress Note Date of Service Apr 17, 2017. Progress Note Item Value Date Time Heparin Anti-Xa Act, Low Molec Wt 0.83 IU/ML 04/17/17 1024 Follow up Xa level remains in goal range 0.5 -1.0 IU/mL. Continue current Lovenox orders (80 mg IV every 12 hours) and re-evaluate monthly as long as patient remains clinically stable.
[2017-04-17] MEDS: INSULIN HUMAN NPH SC SCH (12:45)
[2017-04-17] MEDS: LORAZEPAM 0.5 MG TAB PO PRN ×2 (14:28→20:15)
[2017-04-17] MEDS ORDERED: ONDANSETRON 8MG OD TAB PO PRN (18:15)
[2017-04-17] MEDS: QUETIAPINE FUMARATE 25 MG TAB PO SCH (21:26)
[2017-04-17] MEDS: ZOLPIDEM TARTRATE 10 MG TAB PO SCH (22:27)
[2017-04-18] VITALS (9 sets, daily range): BP systolic 118–119; BP diastolic 72–76; PULSE 79–100; TEMP 36.6–36.7; O2SAT 94–100
[2017-04-18] MEDS: LEVALBUTEROL 1.25MG/0.5ML NEB INH SCH ×6 (03:43→23:36)
[2017-04-18] MEDS: IPRATROPIUM BROMIDE NEB SOLN 0.02% 2.5 ML VIAL INH SCH ×6 (03:43→23:36)
[2017-04-18] MEDS: METHADONE HCL 10 MG TAB PO SCH ×4 (06:03→23:32)
[2017-04-18] MEDS: ENOXAPARIN 80 MG/0.8 ML SYR SQ SCH ×2 (06:04→18:11)
[2017-04-18] MEDS: DOCUSATE SODIUM SYRUP 20MG/5ML 480ML PO SCH ×2 (09:00→20:42)
[2017-04-18] MEDS: ACETYLCYSTEINE 600 MG CAP PO SCH (09:00)
[2017-04-18] MEDS: MAGNESIUM OXIDE 400 MG TAB PO SCH (09:07)
[2017-04-18] MEDS: CLONAZEPAM 0.5 MG TAB PO SCH ×2 (09:07→20:41)
[2017-04-18] MEDS: FAMOTIDINE 20 MG TAB PO SCH ×2 (09:07→20:42)
[2017-04-18] MEDS: METOPROLOL SUCC 25MG EXT REL TAB PO SCH (09:08)
[2017-04-18] MEDS: DICLOFENAC SOD 1% GEL 100 GM TUBE EXT SCH ×2 (09:10→20:43)
[2017-04-18] MEDS: TRIAMCINOLONE ACET NASAL SPRAY 10.8ML BTL NAE SCH (09:10)
[2017-04-18] MEDS: INSULIN ASPART 100 UNITS/ML 3 ML PEN SC SCH ×4 (09:17→20:50)
[2017-04-18] MEDS: INSULIN GLARGINE SOLOSTAR 100 UNITS/ML 3 ML PEN SC SCH (09:18)
[2017-04-18] MEDS: LORAZEPAM 0.5 MG TAB PO PRN ×2 (12:03→18:11)
[2017-04-18] MEDS: INSULIN HUMAN NPH SC SCH (12:06)
--- NOTE | 2017-04-18 18:59 | Progress Note ---
Medicine Progress Note Date & Time of Visit: Apr 18, 2017 at 18:59. Subjective Patient states he is doing ok, would like to have his antidepressant changed to be given in the AM as he thinks it would be helpful. Feels his breathing was worse with n-acetylcysteine and states he would like to be off of it. No overnight events noted. Tolerating PO. Was on 4L for a short time this AM. Objective Last 8 Hrs Date Time Temp Pulse Resp B/P (MAP) Pulse Ox O2 Delivery O2 Flow Rate FiO2 04/18/17 17:02 36.6 91 20 119/72 (88) 97 Mask 5.0 04/18/17 16:00 97 Mask 6.0 45 04/18/17 14:45 93 16 97 Mask 5.0 04/18/17 11:53 92 16 97 Mask 4.0 Physical Exam: GENERAL: Patient is in no acute distress. HEENT: No acute trauma, normocephalic, mucous membranes moist, no nasal congestion, no scleral icterus. Conjunctivae clear NECK: No stridor, trachea is midline. LUNGS: Diminished breath sounds, no rhonchi, no wheeze, breath sounds equal. HEART: Without murmurs, gallops, or rubs, regular rate and rhythm. Tachycardic ABDOMEN: Soft, nontender, bowel sounds positive, no hepatosplenomegaly EXTREMITIES: No cyanosis or edema, moving all 4 limbs without difficulty or pain NEUROLOGIC: Oriented x 3, no acute motor or sensory deficits, no focal weakness. SKIN: No rash, no jaundice, no diaphoresis. Laboratory Results: Last 24 Hours Test 04/17/17 20:46 04/17/17 20:48 04/18/17 07:29 04/18/17 11:05 Bedside Glucose 225 mg/dl 153 mg/dl 127 mg/dl 147 mg/dl Test 04/18/17 16:30 Bedside Glucose 205 mg/dl Assessment & Plan ACUTE ON CHRONIC RESPIRATORY FAILURE WITH HYPOXIA: -multifactorial related to HCAP, COPD Exacerbation, hx of Small Cell Lung Cancer , Radiation Pneumonitis, and PE -blood cultures: Negative -sputum culture: Contamination:last admission BAL grew meño -MRSA screen Negative -Was on empiric Vanc, Cefepime, Levaquin, now off -was on IV solu-medrol which was tapered to a PO prednisone taper -on Oxygen therapy, BIPAP QHS/PRN -continued on Nebs -[employer] and Pulmonology were consulted during this hospitalization, appreciate input -Planning to discharge to LTAC Vs SNF once approved and bed available -Oxygen requirement slowly decreasing: Saturating 90's on 5 liters today but continues to easily desaturate with any activity -condition is critical but stable with overall poor prognosis POSSIBLE SEPSIS: on admission, now resolved -lactic acid was normal on repeat, but was elevated on admission POC lactic acid -IV fluids discontinued -Completed Abx therapy SMALL CELL LUNG CANCER: -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, s/p chemo and radiation -Oncology consulted and following periodically, no plan for additional chemo/ treatments given his current condition -Palliative care consulted; appreciate recommendations; patient signed POLST form last admission DNR/DNI which was confirmed by ICU staff after meeting with the family as the -patient decided he would not want to have a trach/PEG and understands that an intubation at this point would almost certainly result in trach/PEG -Poor prognosis: Patient is aware of his condition but is struggling to accept it RECENT B/L PE & ACUTE LUE DVT: -continue Lovenox BID; patient is injecting this himself into his thigh as he refuses subcutaneous injections into his abdomen and insists he takes them at home in his thigh -LUE Doppler done due to new edema, + for DVT in the left IJ, left subclavian, left brachial, left basilic, and left axillary veins -Anti-Xa was 0.64 which falls in the therapeutic range and again 0.8 on a repeat -PF4 was checked due to worsening thrombocytopenia and new clots and was negative -discussed with Hem/onc: advised to continue Lovenox DM TYPE II: -Pharmacy glycemic control consulted, appreciate recommendations -HbA1C: 6.4 on 01/31/17 -continue ISS, lantus -monitor BSG ATRIAL FIBRILLATION: -rate controlled, in NSR -on metoprolol and Lovenox -stable CHRONIC BACK PAIN: -continued on methadone -stable ANXIETY: -was initially on Precedex drip when in the ICU, for anxiety and was changed to Ativan and Valium; now on ativan and klonopin -Consulted Psych to assist with management of anxiety and depression, but patient does not want to try gabapentin and requests his medication doses be raised which is risky given his respiratory status -better controlled per patient -continue current medications -change seroquel to AM per patient request Dispo: Awaiting acceptance to a facility Continued [facility] stay due to: home environment unsafe for pt, other Discharge planning: uncertain Current Inpatient Medications: Current Inpatient Medications Medications (Trade) Dose Ordered Sig/Prince Route Start Time Stop Time Status Last Admin Dose Admin Miscellaneous Information (Consult Glycemic Management Pharmacy) 1 ea DAILY PRN N/A 03/22/17 03:53 04/21/17 03:52 Magnesium Oxide (Mag-Ox Tab) 400 mg QAM PO 03/22/17 09:00 04/21/17 08:59 04/18/17 09:07 400 MG Metoprolol Succinate (Toprol Xl Tab) 12.5 mg QAM PO 03/22/17 09:00 04/21/17 08:59 04/18/17 09:08 12.5 MG Tramadol HCl (Ultram Tab) 50 mg Q6H PRN PO 03/22/17 02:00 04/21/17 01:59 04/17/17 08:38 50 MG Triamcinolone Acetonide (Nasacort Allergy 24hr) 2 sprays DAILY BJ 03/22/17 09:00 04/21/17 08:59 04/18/17 09:10 2 SPRAYS Ipratropium [place] (Atrovent 0.02% 0.5MG/2.5ML Neb) 0.5 mg Q4R INH 03/22/17 08:00 04/21/17 07:59 04/18/17 14:45 0.5 MG Levalbuterol (Xopenex 1.25MG/ 0.5ML Neb) 1.25 mg Q4R INH 03/22/17 08:00 04/21/17 07:59 04/18/17 14:45 1.25 MG Famotidine (Pepcid Tab) 20 mg BID PO 03/23/17 09:00 04/22/17 08:59 04/18/17 09:07 20 MG Enoxaparin Sodium (Lovenox Inj) 80 mg Q12H SQ 03/23/17 06:00 04/22/17 05:59 04/18/17 18:11 80 MG Lorazepam 1 mg/ Syringe 1 ml @ 1 mls/min Q4H PRN IV 03/31/17 08:45 04/30/17 08:44 04/03/17 13:48 1 MLS/MIN Acetylcysteine (Acetylcysteine Cap) 600 mg BID PO 04/01/17 09:00 05/01/17 08:59 04/17/17 21:26 600 MG Clonazepam (Klonopin Tab) 0.5 mg Q12H PO 04/04/17 09:00 05/04/17 08:59 04/18/17 09:07 0.5 MG Quetiapine Fumarate (seroQUEL TAB) 25 mg HS PO 04/03/17 21:00 05/03/17 20:59 04/17/17 21:26 25 MG Insulin Glargine (Lantus Solostar Pen) 50 units QAM SC 04/07/17 09:00 05/07/17 08:59 Future hold 04/18/17 09:18 50 UNITS Insulin Aspart (novoLOG ASPART) SLIDING SCALE QDB SC 04/08/17 08:00 05/08/17 07:59 Future hold 04/18/17 09:17 24 UNITS Methadone HCl (Dolophine Tab) 15 mg Q6H PO 04/09/17 00:00 04/23/17 00:00 04/18/17 17:29 15 MG Diclofenac Sodium (Voltaren 1% Top Gel) 1 appln BID EXT 04/10/17 09:00 05/10/17 08:59 04/18/17 09:10 1 APPLN Lorazepam (Ativan Tab) 0.5 mg Q6H PRN PO 04/11/17 13:00 05/11/17 12:59 04/18/17 18:11 0.5 MG Insulin Aspart (novoLOG ASPART) SLIDING SCALE BID@1100,1630 SC 04/12/17 11:00 05/12/17 10:59 Future hold 04/18/17 18:34 10 UNITS Insulin Aspart (novoLOG ASPART) SLIDING SCALE DAILY@2100 SC 04/12/17 21:00 05/12/17 20:59 04/17/17 21:32 3 UNITS Zolpidem Tartrate (Ambien Tab) 10 mg DAILY@2230 PO 04/13/17 22:30 04/24/17 21:59 04/17/17 22:27 10 MG Prednisone (PredniSONE TAB) 30 mg DAILY PO 04/15/17 09:00 05/07/17 08:59 04/18/17 09:07 30 MG Docusate Sodium (coLACE SYRUP-SUBSTITUTE) 50 mg BID PO 04/14/17 21:00 05/14/17 20:59 Insulin Human NPH (novoLIN-N NPH) 35 units QDL SC 04/16/17 12:00 05/16/17 11:59 04/18/17 12:06 35 UNITS Ondansetron HCl (Zofran Odt) 8 mg Q8H PRN PO 04/17/17 18:15 05/17/17 18:14
[2017-04-18] MEDS: QUETIAPINE FUMARATE 25 MG TAB PO SCH (20:42)
[2017-04-18] MEDS: ZOLPIDEM TARTRATE 10 MG TAB PO SCH (22:24)
[2017-04-19] VITALS (10 sets, daily range): BP systolic 106–133; BP diastolic 69–81; PULSE 75–104; TEMP 36.6–37.2; O2SAT 92–98
[2017-04-19] MEDS: LEVALBUTEROL 1.25MG/0.5ML NEB INH SCH ×6 (03:06→23:14)
[2017-04-19] MEDS: IPRATROPIUM BROMIDE NEB SOLN 0.02% 2.5 ML VIAL INH SCH ×6 (03:06→23:14)
[2017-04-19] MEDS: ENOXAPARIN 80 MG/0.8 ML SYR SQ SCH ×2 (06:28→17:10)
[2017-04-19] MEDS: TRAMADOL HCL 50 MG TAB PO PRN (06:29)
[2017-04-19] MEDS: METHADONE HCL 10 MG TAB PO SCH ×4 (06:29→23:24)
[2017-04-19 07:13] LABS: HEMATOCRIT 37.8 % (42-52); HEMOGLOBIN 11.1 g/dL (14.0-18.0); MEAN CELL VOLUME 87.1 fL (80-100); MEAN CORPUSCULAR HEMOGLOBIN 25.6 pg (25-34); MEAN CORPUSCULAR HGB CONC 29.4 g/dl (32-36); MEAN PLATELET VOLUME 10.2 fL (7.4-10.4); PLATELET COUNT 300 K/uL (130-400); RED CELL DISTRIBUTION WIDTH CV 17.7 % (11.5-14.5); RED CELL DISTRIBUTION WIDTH SD 57.1 fL (36.4-46.3); WHITE BLOOD COUNT 8.88 K/uL (4.8-10.8)
[2017-04-19 07:43] LABS: CREATININE 0.74 mg/dl (0.60-1.40)
[2017-04-19] MEDS: FAMOTIDINE 20 MG TAB PO SCH ×2 (08:56→20:44)
[2017-04-19] MEDS: QUETIAPINE FUMARATE 25 MG TAB PO SCH (08:59)
[2017-04-19] MEDS: METOPROLOL SUCC 25MG EXT REL TAB PO SCH (09:00)
[2017-04-19] MEDS: DOCUSATE SODIUM SYRUP 20MG/5ML 480ML PO SCH ×2 (09:00→20:41)
[2017-04-19] MEDS: MAGNESIUM OXIDE 400 MG TAB PO SCH (09:01)
[2017-04-19] MEDS: DICLOFENAC SOD 1% GEL 100 GM TUBE EXT SCH ×2 (09:03→20:44)
[2017-04-19] MEDS: TRIAMCINOLONE ACET NASAL SPRAY 10.8ML BTL NAE SCH (09:03)
[2017-04-19] MEDS: INSULIN ASPART 100 UNITS/ML 3 ML PEN SC SCH ×4 (09:07→20:43)
[2017-04-19] MEDS: CLONAZEPAM 0.5 MG TAB PO SCH ×2 (09:08→20:43)
[2017-04-19] MEDS: INSULIN GLARGINE SOLOSTAR 100 UNITS/ML 3 ML PEN SC SCH (09:08)
[2017-04-19] MEDS: INSULIN HUMAN NPH SC SCH (12:07)
--- NOTE | 2017-04-19 14:41 | DIAGNOSTIC IMAGING REPORT ---
CHEST ONE VIEW PORTABLE CLINICAL HISTORY: Lung CA, mucoid impaction dyspnea COMPARISON STUDY: 03/23/2017 FINDINGS: Mildly progressive consolidative infiltrative changes of the left perihilar and left midlung region. Left apical bleb persists. Mild improvement in aeration right hemithorax. Slight improvement in visibility of the left hemidiaphragm. IMPRESSION: 1. Mixed findings. 2. Mildly progressive consolidative change left perihilar region. 2. Slightly improved infiltrative change right lung and left base. The above report was generated using voice recognition software. It may contain grammatical, syntax or spelling errors. Electronically signed by: Sudnay Mckeon M.D. 04/19/2017 2:40 PM Dictated Date/Time: 04/19/2017 2:38 PM
--- NOTE | 2017-04-19 15:00 | Pharmacy Progress Note ---
Pharmacy Glycemic Short Note 2 Date of Service Apr 19, 2017. OUTPATIENT ANTIDIABETIC REGIMEN: * Humulin N 75 units AM * Humalog SS * Novolin R 15 TIDM ASSESSMENT: 04/19/17: * BSGs have ranged 98-205 mg/dL over the past 48 hours. Patient has been receiving ~130 units/day. * Carb ratio tightened slightly with lunch and dinner to provide more coverage and lessen afternoon/evening hyperglycemia. 04/17/17 * BSGs over the last 24 hours ranging 82-161 mg/dL * Prednisone was decreased a couple of days ago (40mg --> 30mg), and NPH and Novolog were adjusted accordingly. * Patient continues to receive heavier prandial coverage in the morning, with loosened coverage later in the day. * Will continue while BSGs are stable and adjust as steroid tapers. PLAN FOR INPATIENT GLYCEMIC CONTROL: * Basal insulin: * Lantus 50 units qAM * Bolus insulin: * Continue same NovoLog per scale ACHS or Q6hrs while NPO * Goal Range: Low 110 mg/dL - High 140 mg/dL BREAKFAST ONLY: * Correction Factor: 10 mg/dL/unit * Prandial insulin per carb ratio of 1 unit per 3 grams CHO consumed LUNCH, DINNER: * Correction Factor: 20 mg/dL/unit * Prandial insulin per carb ratio of 1 unit per 6 grams CHO consumed BEDTIME ONLY: * Correction Factor: 25 mg/dL/unit * Prandial insulin per carb ratio of 1 unit per 20 grams of CHO consumed * Steroid induced hyperglycemia coverage: * NPH 0.3 units/kg (35 units) SQ daily with lunch to cover hyperglycemia secondary to prednisone 30mg
[2017-04-19] MEDS: LORAZEPAM 0.5 MG TAB PO PRN ×2 (15:45→22:00)
--- NOTE | 2017-04-19 19:02 | Progress Note ---
Medicine Progress Note Date & Time of Visit: Apr 19, 2017 at 19:02. Subjective Patient reports having more wheezing today and some discomfort in his back. No overnight events noted. Tolerating PO. Does not want to take n-acetylcysteine. Would like his depression/anxiety meds increased. Patient's brother at the bedside and was updated as well. Objective Last 8 Hrs Date Time Temp Pulse Resp B/P (MAP) Pulse Ox O2 Delivery O2 Flow Rate FiO2 04/19/17 16:00 Oxymask 5.0 04/19/17 15:23 88 16 97 Mask 5.0 96 04/19/17 15:19 36.6 88 26 106/69 (81) 94 Oxymask 5.0 04/19/17 11:10 76 16 97 Mask 5.0 Physical Exam: GENERAL: Patient is in no acute distress. HEENT: No acute trauma, normocephalic, mucous membranes moist, no nasal congestion, no scleral icterus. Conjunctivae clear NECK: No stridor, trachea is midline. LUNGS: Diminished breath sounds, no rhonchi, expiratory wheeze, breath sounds equal. HEART: Without murmurs, gallops, or rubs, regular rate and rhythm. Tachycardic ABDOMEN: Soft, nontender, bowel sounds positive, no hepatosplenomegaly EXTREMITIES: No cyanosis or edema, moving all 4 limbs without difficulty or pain NEUROLOGIC: Oriented x 3, no acute motor or sensory deficits, no focal weakness. SKIN: No rash, no jaundice, no diaphoresis. Laboratory Results: Last 24 Hours Test 04/18/17 20:31 04/19/17 06:28 04/19/17 07:27 04/19/17 11:27 Bedside Glucose 192 mg/dl 98 mg/dl 175 mg/dl White Blood Count 8.88 K/uL Red Blood Count 4.34 M/uL Hemoglobin 11.1 g/dL Hematocrit 37.8 % Mean Corpuscular Volume 87.1 fL Mean Corpuscular Hemoglobin 25.6 pg Mean Corpuscular Hemoglobin Concent 29.4 g/dl RDW Standard Deviation 57.1 fL RDW Coefficient of Variation 17.7 % Platelet Count 300 K/uL Mean Platelet Volume 10.2 fL Creatinine 0.74 mg/dl Est Creatinine Clear Calc Drug Dose 157.6 ml/min Estimated GFR () 121.2 Estimated GFR (Non- 104.6 Test 04/19/17 16:27 Bedside Glucose 223 mg/dl Assessment & Plan ACUTE ON CHRONIC RESPIRATORY FAILURE WITH HYPOXIA: -multifactorial related to HCAP, COPD Exacerbation, hx of Small Cell Lung Cancer , Radiation Pneumonitis, and PE -blood cultures: Negative -sputum culture: Contamination:last admission BAL grew meño -MRSA screen Negative -Was on empiric Vanc, Cefepime, Levaquin, now off -was on IV solu-medrol which was tapered to a PO prednisone taper, decrease by 5mg as tolerated -on Oxygen therapy, BIPAP QHS/PRN -continued on Nebs -[employer] and Pulmonology were consulted during this hospitalization, appreciate input -Planning to discharge to LTAC [facility]s SNF once approved and bed available -Oxygen requirement slowly decreasing: Saturating 90's on 5 liters today but continues to easily desaturate with any activity -condition is critical but stable with overall poor prognosis POSSIBLE SEPSIS: on admission, now resolved -lactic acid was normal on repeat, but was elevated on admission POC lactic acid -IV fluids discontinued -Completed Abx therapy SMALL CELL LUNG CANCER: -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, s/p chemo and radiation -Oncology consulted and following periodically, no plan for additional chemo/ treatments given his current condition -Palliative care consulted; appreciate recommendations; patient signed POLST form last admission DNR/DNI which was confirmed by ICU staff after meeting with the family as the -patient decided he would not want to have a trach/PEG and understands that an intubation at this point would almost certainly result in trach/PEG -Poor prognosis: Patient is aware of his condition but is struggling to accept it RECENT B/L PE & ACUTE LUE DVT: -continue Lovenox BID; patient is injecting this himself into his thigh as he refuses subcutaneous injections into his abdomen and insists he takes them at home in his thigh -LUE Doppler done due to new edema, + for DVT in the left IJ, left subclavian, left brachial, left basilic, and left axillary veins -Anti-Xa was 0.64 which falls in the therapeutic range and again 0.8 on a repeat -PF4 was checked due to worsening thrombocytopenia and new clots and was negative -discussed with Hem/onc: advised to continue Lovenox DM TYPE II: -Pharmacy glycemic control consulted, appreciate recommendations -HbA1C: 6.4 on 01/31/17 -continue ISS, lantus -monitor BSG ATRIAL FIBRILLATION: -rate controlled, in NSR -on metoprolol and Lovenox -stable CHRONIC BACK PAIN: -continued on methadone -stable ANXIETY: -was initially on Precedex drip when in the ICU, for anxiety and was changed to Ativan and Valium; now on ativan and klonopin -Consulted Psych to assist with management of anxiety and depression, but patient does not want to try gabapentin and requests his medication doses be raised which is risky given his respiratory status -better controlled per patient -continue current medications -change seroquel to AM per patient request Dispo: Awaiting acceptance to a facility Continued [facility] stay due to: home environment unsafe for pt, other Discharge planning: uncertain Current Inpatient Medications: Current Inpatient Medications Medications (Trade) Dose Ordered Sig/Prince Route Start Time Stop Time Status Last Admin Dose Admin Miscellaneous Information (Consult Glycemic Management Pharmacy) 1 ea DAILY PRN N/A 03/22/17 03:53 04/21/17 03:52 Magnesium Oxide (Mag-Ox Tab) 400 mg QAM PO 03/22/17 09:00 04/21/17 08:59 04/19/17 09:01 400 MG Metoprolol Succinate (Toprol Xl Tab) 12.5 mg QAM PO 03/22/17 09:00 04/21/17 08:59 04/19/17 09:00 12.5 MG Tramadol HCl (Ultram Tab) 50 mg Q6H PRN PO 03/22/17 02:00 04/21/17 01:59 04/19/17 06:29 50 MG Triamcinolone Acetonide (Nasacort Allergy 24hr) 2 sprays DAILY BJ 03/22/17 09:00 04/21/17 08:59 04/19/17 09:03 2 SPRAYS Ipratropium [place] (Atrovent 0.02% 0.5MG/2.5ML Neb) 0.5 mg Q4R INH 03/22/17 08:00 04/21/17 07:59 04/19/17 15:22 0.5 MG Levalbuterol (Xopenex 1.25MG/ 0.5ML Neb) 1.25 mg Q4R INH 03/22/17 08:00 04/21/17 07:59 04/19/17 15:22 1.25 MG Famotidine (Pepcid Tab) 20 mg BID PO 03/23/17 09:00 04/22/17 08:59 04/19/17 08:56 20 MG Enoxaparin Sodium (Lovenox Inj) 80 mg Q12H SQ 03/23/17 06:00 04/22/17 05:59 04/19/17 17:10 80 MG Lorazepam 1 mg/ Syringe 1 ml @ 1 mls/min Q4H PRN IV 03/31/17 08:45 04/30/17 08:44 04/03/17 13:48 1 MLS/MIN Clonazepam (Klonopin Tab) 0.5 mg Q12H PO 04/04/17 09:00 05/04/17 08:59 04/19/17 09:08 0.5 MG Insulin Glargine (Lantus Solostar Pen) 50 units QAM SC 04/07/17 09:00 05/07/17 08:59 Future hold 04/19/17 09:08 50 UNITS Insulin Aspart (novoLOG ASPART) SLIDING SCALE QDB SC 04/08/17 08:00 05/08/17 07:59 Future hold 04/19/17 09:07 8 UNITS Methadone HCl (Dolophine Tab) 15 mg Q6H PO 04/09/17 00:00 04/23/17 00:00 04/19/17 17:10 15 MG Diclofenac Sodium (Voltaren 1% Top Gel) 1 appln BID EXT 04/10/17 09:00 05/10/17 08:59 04/19/17 09:03 1 APPLN Lorazepam (Ativan Tab) 0.5 mg Q6H PRN PO 04/11/17 13:00 05/11/17 12:59 04/19/17 15:45 0.5 MG Insulin Aspart (novoLOG ASPART) SLIDING SCALE BID@1100,1630 SC 04/12/17 11:00 05/12/17 10:59 Future hold 04/19/17 17:18 12 UNITS Insulin Aspart (novoLOG ASPART) SLIDING SCALE DAILY@2100 SC 04/12/17 21:00 05/12/17 20:59 04/18/17 20:50 7 UNITS Zolpidem Tartrate (Ambien Tab) 10 mg DAILY@2230 PO 04/13/17 22:30 04/24/17 21:59 04/18/17 22:24 10 MG Prednisone (PredniSONE TAB) 30 mg DAILY PO 04/15/17 09:00 05/07/17 08:59 04/19/17 08:58 30 MG Docusate Sodium (coLACE SYRUP-SUBSTITUTE) 50 mg BID PO 04/14/17 21:00 05/14/17 20:59 Insulin Human NPH (novoLIN-N NPH) 35 units QDL SC 04/16/17 12:00 05/16/17 11:59 04/19/17 12:07 35 UNITS Ondansetron HCl (Zofran Odt) 8 mg Q8H PRN PO 04/17/17 18:15 05/17/17 18:14 Quetiapine Fumarate (seroQUEL TAB) 25 mg DAILY PO 04/19/17 09:00 05/19/17 08:59 04/19/17 08:59 25 MG
[2017-04-19] MEDS: ZOLPIDEM TARTRATE 10 MG TAB PO SCH (23:24)
[2017-04-20 03:31] VITALS: PULSE 97; O2SAT 92
[2017-04-20] MEDS: IPRATROPIUM BROMIDE NEB SOLN 0.02% 2.5 ML VIAL INH SCH ×3 (03:31→11:43)
[2017-04-20] MEDS: LEVALBUTEROL 1.25MG/0.5ML NEB INH SCH ×3 (03:31→11:43)
[2017-04-20] MEDS: LORAZEPAM 0.5 MG TAB PO PRN ×2 (03:59→11:23)
[2017-04-20] MEDS: METHADONE HCL 10 MG TAB PO SCH ×2 (06:17→11:23)
[2017-04-20] MEDS: ENOXAPARIN 80 MG/0.8 ML SYR SQ SCH (06:18)
[2017-04-20 07:26] VITALS: BP 110/71; PULSE 75; TEMP 36.9; O2SAT 91
[2017-04-20 07:31] VITALS: PULSE 91; O2SAT 95
[2017-04-20] MEDS: CLONAZEPAM 0.5 MG TAB PO SCH (07:48)
[2017-04-20] MEDS: FAMOTIDINE 20 MG TAB PO SCH (07:48)
[2017-04-20] MEDS: METOPROLOL SUCC 25MG EXT REL TAB PO SCH (07:49)
[2017-04-20] MEDS: MAGNESIUM OXIDE 400 MG TAB PO SCH (07:50)
[2017-04-20] MEDS: QUETIAPINE FUMARATE 25 MG TAB PO SCH (07:50)
[2017-04-20] MEDS: DOCUSATE SODIUM SYRUP 20MG/5ML 480ML PO SCH (07:50)
[2017-04-20] MEDS: TRIAMCINOLONE ACET NASAL SPRAY 10.8ML BTL NAE SCH (07:53)
[2017-04-20] MEDS: DICLOFENAC SOD 1% GEL 100 GM TUBE EXT SCH (07:53)
[2017-04-20] MEDS: INSULIN GLARGINE SOLOSTAR 100 UNITS/ML 3 ML PEN SC SCH (08:18)
[2017-04-20] MEDS: INSULIN ASPART 100 UNITS/ML 3 ML PEN SC SCH ×2 (08:19→11:00)
--- NOTE | 2017-04-20 10:43 | Pharmacy Progress Note ---
Pharmacy Glycemic Short Note 2 Date of Service Apr 20, 2017. OUTPATIENT ANTIDIABETIC REGIMEN: * Humulin N 75 units AM * Humalog SS * Novolin R 15 TIDM ASSESSMENT: 04/20/17: * BSGs from past 24 hours: 98, 175, 223, 192 mg/dL. Patient received 131 units of insulin on 04/19. * Patient currently on prednisone 30 mg PO daily - ordered additional STAT dose of 20 mg today @1030 * Will increase NPH to 0.4 units/kg for today to cover increased steroid dose ( pt tolerated this dose previously while on pred 40 mg). * Fasting BSG elevated - hesitant to increased Lantus dose per previous fastings have been at goal; 98, 83, 115, 127, 98 (04/15-04/19) * Dinner BSG consistently elevated - will tighten CR with lunch 04/19/17: * BSGs have ranged 98-205 mg/dL over the past 48 hours. Patient has been receiving ~130 units/day. * Carb ratio tightened slightly with lunch and dinner to provide more coverage and lessen afternoon/evening hyperglycemia. 04/17/17 * BSGs over the last 24 hours ranging 82-161 mg/dL * Prednisone was decreased a couple of days ago (40mg --> 30mg), and NPH and Novolog were adjusted accordingly. * Patient continues to receive heavier prandial coverage in the morning, with loosened coverage later in the day. * Will continue while BSGs are stable and adjust as steroid tapers. PLAN FOR INPATIENT GLYCEMIC CONTROL: * Basal insulin: * Lantus 50 units qAM * Bolus insulin: * Continue same NovoLog per scale ACHS or Q6hrs while NPO * Goal Range: Low 110 mg/dL - High 140 mg/dL BREAKFAST: * Correction Factor: 10 mg/dL/unit * Prandial insulin per carb ratio of 1 unit per 3 grams CHO consumed LUNCH: * Correction Factor: 20 mg/dL/unit * Prandial insulin per carb ratio of 1 unit per 5 grams CHO consumed DINNER: * Correction Factor: 20 mg/dL/unit * Prandial insulin per carb ratio of 1 unit per 6 grams CHO consumed BEDTIME: * Correction Factor: 25 mg/dL/unit * Prandial insulin per carb ratio of 1 unit per 20 grams of CHO consumed * Steroid induced hyperglycemia coverage: * NPH 0.4 units/kg (50 units) SQ daily with lunch to cover hyperglycemia secondary to prednisone 50mg
[2017-04-20 11:41] VITALS: BP 110/71; PULSE 91; TEMP 36.9; O2SAT 95
[2017-04-20 11:43] VITALS: PULSE 91; O2SAT 95
[2017-04-20] MEDS ORDERED: KLN5 PO (11:49)
[2017-04-20] MEDS ORDERED: SRQ25 PO (11:49)
[2017-04-20] MEDS ORDERED: INSDGIPEN SC (11:49)
[2017-04-20] MEDS ORDERED: ATV5 PO (11:49)
[2017-04-20] MEDS ORDERED: NVLGIPEN SC ×3 (11:49)
[2017-04-20] MEDS ORDERED: FAMO1TAB47 PO (11:49)
--- NOTE | 2017-04-20 11:52 | Discharge Instructions ---
Discharge Instructions Date of Service Apr 20, 2017. Admission Reason for Admission: Respiratory Failure Discharge Discharge Diagnosis / Problem: Respiratory failure Discharge Goals Goal(s): Therapeutic intervention Activity Recommendations Activity Level: Assistance Required Therapies: Physical Therapy, Occupational Therapy . Additional Information Patient informed of condition: Yes Advance Directives: Yes DNR: Yes Level of Care: Other Communicable Disease: No Prognosis: Stable Oxygen at (LPM): 5L at rest Em Catheter: No Current Hospital Diet Patient's current hospital diet: Diabetes Type 2 Diet Discharge Diet Recommended Diet: Diabetes Type 2 Diet Pending Studies Studies pending at discharge: no Physician Orders On Transfer Special Precautions: BSG AC and HS Levalbuterol/Ipratropium Nebs q 4 hours scheduled and q2 hours PRN Laboratory Results Hemoglobin A1c Test 01/31/17 07:02 Range/Units Estimated Average Glucose 137 mg/dl Hemoglobin A1c 6.4 H 4.5-5.6 % Medical Emergencies . Who to Call and When: Medical Emergencies: If at any time you feel your situation is an emergency, please call 911 immediately. . Non-Emergent Contact Non-Emergency issues call your: Primary Care Provider . . "Provider Documentation" section prepared by Anna De León. . Core Measure Problem Core Measures: None
[2017-04-20] MEDS ORDERED: PRED-301 PO (11:56)
[2017-04-20] MEDS ORDERED: INSULIN HUMAN NPH SC SCH (12:00)
--- NOTE | 2017-04-20 12:01 | Discharge Summary ---
Discharge Summary Date of Service Apr 20, 2017. Discharge Summary Admission Date: Mar 22, 2017 at 01:38 Discharge Date: Apr 20, 2017 Discharge Disposition: Acute care facility Principal Diagnosis: Acute on chronic respiratory failure, Acute LUE extensive DVT, HCAP Secondary Diagnoses/Problems: COPD, PE, Small Cell lung CA (Stage 3b), Diabetes, Atrial fibrillation, Chronic back pain, Depression/anxiety Pending Studies/Follow-Up: Steroid taper Medication Reconciliation New Medications: Prednisone (Prednisone) 5 Mg Tab 25 MG PO DAILY, #1 TAB Patient is on a slow wean from prednisone was on 30mg prednisone 04/20/17, decrease to 25 mg tomorrow Clonazepam (Clonazepam) 0.5 Mg Tab 0.5 MG PO Q12H, #1 TAB Famotidine (Famotidine) 20 Mg Tab 20 MG PO BID, #1 TAB Insulin Aspart (Novolog Flexpen) 100 Units/Ml Inj 0 UNITS SC QDB, #1 Correction scale goal 110-140; Correction factor 10 mg/dL/unit; Carb coverage 1 unit per 3 grams Insulin Aspart (Novolog Flexpen) 100 Units/Ml Inj 0 UNITS SC BID@1100,1630, #1 Correction scale goal 110-140; Correction factor 20 mg/dL/unit; Carb coverage 1 unit per 5 grams Insulin Aspart (Novolog Flexpen) 100 Units/Ml Inj 0 UNITS SC DAILY@2100, #1 Correction scale goal 110-140; Correction factor 25 mg/dL/unit; Carb coverage 1 unit per 20 grams Insulin Glargine (Lantus Solostar) 100 Unit/Ml Inj 50 UNITS SC QAM, #1 Lorazepam (Lorazepam) 0.5 Mg Tab 1 MG PO Q6H PRN for Anxiety, #1 TAB Quetiapine Fumarate (Quetiapine Fumarate) 25 Mg Tab 25 MG PO BID, #1 TAB Continued Medications: Biotin W/ Vitamins C & E (Hair/Skin/Nails 1250-7.5-7.5 Mcg-mg-Unt) 1 Chw Chw 1 TAB PO DAILY Bisacodyl (Bisacodyl) 10 Mg Sup 10 MG RE DAILY PRN for Constipation Cholecalciferol (Vitamin D) 5,000 Unit Tab 5000 UNITS PO DAILY Diclofenac Sod (Voltaren) 100 Appln/100 Gm Gel 1 APPLN EXT TID for 30 Days, #1 TUBE Docusate Sodium (Docusate Sodium) 100 Mg Cap 100 MG PO BID for 7 Days, #14 CAP Enoxaparin (Lovenox) 80 Mg/0.8 Ml Inj 80 MG SQ Q12H for 30 Days, #60 Ipratropium-Albuterol (Duoneb) 3 Ml Nebu 1 TREATMENT INH Q2H PRN for Shortness of Breath, INHA Levalbuterol Hcl (Levalbuterol) 1.25 Mg/0.5 Ml Neb 1 AMP INH Q4H Magnesium Hydroxide (Milk of Magnesia) 30 Ml Susp 30 ML PO DAILY PRN for Constipation Magnesium Oxide (Magnesium-Oxide) 400 Mg Tab 400 MG PO QAM for 30 Days, #60 TAB Methadone HCl (Methadone HCl) 10 Mg Tab 15 MG PO Q6 for 7 Days, #42 TAB Metoprolol Succinate (Metoprolol Succinate ER) 25 Mg Tabcr 12.5 MG PO QAM for 30 Days, #30 Nitroglycerin (Nitrostat) 0.4 Mg/1 Tab Subl 0.4 MG SL PRN PRN for Chest Pain for 30 Days, #25 Ondansetron Hcl (Zofran) 8 Mg Tab 8 MG PO Q8 PRN for Nausea, TAB Polyethylene Glycol 3350 (Miralax) 1 Pow Pow 17 GM PO QDL PRN for Constipation, #255 GM Sennosides-Docusate Sodium (Senokot S) 1 Tab Tab 1 TAB PO QDL PRN for Constipation, TAB Sodium Phosphate/Biphosphate (Fleet Enema) [place] 1 EA [place] DAILY PRN for Constipation, BTL Tramadol (Ultram) 50 Mg Tab 50 MG PO Q6H PRN for Pain for 10 Days, #40 TAB Triamcinolone Acetonide (Nasal (Nasacort Allergy 24Hr) 55 Mcg/Act Spr 2 SPRAYS BJ DAILY Vitamin E (E-400) 400 Unit Cap 400 MG PO TIDM Zolpidem Tartrate (Ambien) 10 Mg Tab 10 MG PO HS, TAB Discontinued Medications: Aspirin (Aspirin Ec) 325 Mg Tab 325 MG PO QAM Diazepam (Valium) 2 Mg Tab 2 MG PO BID PRN for Anxiety/Agitation for 10 Days, #20 TAB Insulin Human NPH (Humulin N) 100 Units/Ml Susp 55 UNITS SQ QPM Insulin Human NPH (Humulin N) 100 Units/Ml Susp 75 UNITS SQ QAM Insulin Lispro (Human) (Humalog) 100 Unit/Ml Inj 20 UNITS SQ QID SLIDING SCALE: 150-180=2 UNITS 181-210=4 UNITS 211-240=6 UNITS 241-270=8 UNITS 271-300=10 UNITS 301-330=12 UNITS 331-360=14 UNITS 361-390=16 UNITS 391-420=18 UNITS 421+=20 UNITS Insulin Regular (Human) (Novolin R U-100) 100 Unit/Ml Inj 15 UNITS SC TID for 30 Days, #1 VIAL Three times daily before meals Levofloxacin (Levaquin) 750 Mg Tab 750 MG PO DAILY for 7 Days, #7 TAB Admission Information HPI (per Admitting provider): 56 year old male with history of small cell CA, Chronic Hypoxic Respiratory Failure on 4 liters oxygen, Bilateral PE on lovenox, DM, A fib presenting with shortness of breath. Patient was discharged last 03/10/17 after being admitted for respiratory failure secondary to pneumonia, requiring intubation. He was apparently doing well until last Sunday when he started to have chills , shortness of breath, and productive cough. He was noted to be hypoxic today, hence brought to the ER. At the ER, patient did not tolerate Bipap and was placed on NRB. CXR showed new right sided infiltrates. On exam, patient was not in distress, on NRB mask. States he feels somewhat improved compared to admission. Physical Exam (per Admitting): General Appearance: WD/WN, + pertinent finding (mild tachypnea, some effort with speaking) Head: normocephalic, atraumatic Eyes: normal inspection, PERRL, EOMI, sclerae normal ENT: normal ENT inspection, hearing grossly normal, pharynx normal Neck: supple, no adenopathy, thyroid normal, no JVD, trachea midline Respiratory/Chest: + accessory muscle use (mild), + pertinent finding ((+) bilateral wheezing) Cardiovascular: regular rate, rhythm, no edema, no JVD, no murmur Abdomen/GI: normal bowel sounds, non tender, soft Back: normal inspection, no CVA tenderness Extremities/Musculoskelatal: normal inspection, no calf tenderness, no pedal edema Neurologic/Psych: private client advisor II-XII nml as tested, no motor/sensory deficits, alert , normal mood/affect, oriented x 3 Skin: normal color, warm/dry, no rash Lymphatic: no adenopathy Hospital Course ACUTE ON CHRONIC RESPIRATORY FAILURE WITH HYPOXIA: -multifactorial related to HCAP, COPD Exacerbation, hx of Small Cell Lung Cancer , Radiation Pneumonitis, and PE -blood cultures: Negative -sputum culture: Contamination:last admission (in February) BAL grew meño; all other cultures remain negative -MRSA screen Negative -Was on empiric Vanc, Cefepime, Levaquin, course completed and remains off -was on IV solu-medrol which was tapered to a PO prednisone taper, decrease by 5mg as tolerated q week -on Oxygen therapy, BIPAP QHS/PRN -continued on Nebs -[employer] and Pulmonology were consulted during this hospitalization, appreciate input -Oxygen requirement slowly decreasing: Saturating 90's on 5 liters today but continues to easily desaturate with any activity -condition is critical but stable with overall poor prognosis POSSIBLE SEPSIS: on admission, now resolved -lactic acid was normal on repeat, but was elevated on admission POC lactic acid -IV fluids discontinued -Completed Abx therapy SMALL CELL LUNG CANCER: -Stage 3b 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, s/p chemo and radiation -Oncology consulted and following periodically, no plan for additional chemo/ treatments given his current condition -Palliative care consulted; appreciate recommendations; patient signed POLST form last admission DNR/DNI which was confirmed by ICU staff after meeting with the family as the -patient decided he would not want to have a trach/PEG and understands that an intubation at this point would almost certainly result in trach/PEG -Poor prognosis: Patient is aware of his condition but is struggling to accept it RECENT B/L PE & ACUTE LUE DVT: -continue Lovenox BID; patient is injecting this himself into his thigh as he refuses subcutaneous injections into his abdomen and insists he takes them at home in his thigh -LUE Doppler done due to new edema, + for DVT in the left IJ, left subclavian, left brachial, left basilic, and left axillary veins -Anti-Xa was 0.64 which falls in the therapeutic range and again 0.8 on a repeat -PF4 was checked due to worsening thrombocytopenia and new clots and was negative -discussed with Hem/onc: advised to continue Lovenox DM TYPE II: -Pharmacy glycemic control consulted, appreciate recommendations -HbA1C: 6.4% on 01/31/17 -continue ISS, lantus -monitor BSG ATRIAL FIBRILLATION: -rate controlled, in NSR -on metoprolol and Lovenox -stable CHRONIC BACK PAIN: -continued on methadone -stable ANXIETY: -was initially on Precedex drip when in the ICU, for anxiety and was changed to Ativan and Valium; now on ativan and klonopin -Consulted Psych to assist with management of anxiety and depression, but patient does not want to try gabapentin and requests his medication doses be raised which is risky given his respiratory status -better controlled per patient -continue current medications -change seroquel to BID per patient request PHYSICAL EXAM ON DAY OF DISCHARGE: GENERAL: Patient is in no acute distress. HEENT: No acute trauma, normocephalic, mucous membranes moist, no nasal congestion, no scleral icterus. Conjunctivae clear NECK: No stridor, trachea is midline. LUNGS: Diminished breath sounds, no rhonchi, expiratory wheeze, breath sounds equal. HEART: Without murmurs, gallops, or rubs, regular rate and rhythm. Tachycardic ABDOMEN: Soft, nontender, bowel sounds positive, no hepatosplenomegaly EXTREMITIES: No cyanosis or edema, moving all 4 limbs without difficulty or pain NEUROLOGIC: Oriented x 3, no acute motor or sensory deficits, no focal weakness. SKIN: No rash, no jaundice, no diaphoresis. Total time spent on discharge = 55 This includes examination of the patient, discharge planning, medication reconciliation, and communication with other providers. Discharge Instructions none
[2017-04-20] MEDS ORDERED: NURSING VERBAL MED ORDER ONE (12:15)
[2017-04-20] MEDS ORDERED: LORAZEPAM 1 MG TAB ONE (12:16)
[2017-04-20] MEDS ORDERED: HYDROmorphone HCL 2 MG TAB ONE (12:17)
== END 2017-04-20 12:33 | disposition other institution (70) | DRG 871 ==
LOC: EDBD 21:04 → C.EDA 21:05 → C.MSICU 03-22 01:38 → C.2E 03-23 21:41 → C.MED 03-30 21:42 → C.MS2W 04-02 17:37
PROVIDERS: ADMIT Internal Medicine; ATTEND Internal Medicine
DX: A41.9 Sepsis, unspecified organism (principal); J18.9 Pneumonia, unspecified organism; J96.21 Acute and chronic respiratory failure with hypoxia; J44.0 Chronic obstructive pulmonary disease with (acute) lower respiratory infection; J44.1 Chronic obstructive pulmonary disease with (acute) exacerbation; I82.602 Acute embolism and thrombosis of unspecified veins of left upper extremity; C34.12 Malignant neoplasm of upper lobe, left bronchus or lung; J70.0 Acute pulmonary manifestations due to radiation; E11.9 Type 2 diabetes mellitus without complications; I48.91 Unspecified atrial fibrillation; G89.29 Other chronic pain; M54.9 Dorsalgia, unspecified; F41.9 Anxiety disorder, unspecified; F32.9 Major depressive disorder, single episode, unspecified; Z51.81 Encounter for therapeutic drug level monitoring; Z79.899 Other long term (current) drug therapy; Z79.01 Long term (current) use of anticoagulants; Z79.4 Long term (current) use of insulin; Z79.891 Long term (current) use of opiate analgesic; Z79.82 Long term (current) use of aspirin; Z99.81 Dependence on supplemental oxygen; Z66 Do not resuscitate; Z86.711 Personal history of pulmonary embolism; Z86.718 Personal history of other venous thrombosis and embolism; Z92.21 Personal history of antineoplastic chemotherapy; Z92.3 Personal history of irradiation; Z87.891 Personal history of nicotine dependence; W88.1XXA Exposure to radioactive isotopes, initial encounter; Z83.3 Family history of diabetes mellitus

== ENCOUNTER → 2017-06-25 | Outpatient (CLI) | payer OTHER ==
[~2017-06-25] MED LIST changes: -AFRINWC; -ASPI325T39 PO; +ATV5 PO; -DIAZ2TAB PO; +FAMO1TAB47 PO; -INSUINJ7 SC; +IPRASOL4 INH; +KLN5 PO; +NVLGIPEN SC; +ONDA-170 PO; -ONDA8TAB6 PO; -PRD10 PO; +SRQ25 PO; +TRIA1SPR4 NAE
--- NOTE | 2017-06-25 13:22 | DIAGNOSTIC IMAGING REPORT ---
PET/CT HISTORY: LUNG CANCER TECHNIQUE: PET/CT was performed from the base of the skull through the pelvis following the intravenous administration of 11.1 mCi of F18-FDG. Non-contrast CT imaging was performed over the same range without breath-hold for attenuation correction of PET images and anatomic correlation, but not for primary interpretation as it is not of standard diagnostic quality. CT DOSE: 1051.22 mGycm COMPARISON: PET CT 10/18/2016. FINDINGS: HEAD AND NECK: No lymphadenopathy within the neck. Patchy FDG uptake within the posterior neck muscles is likely physiologic. There is FDG uptake within and surrounding the neck of the right mandibular condyle. This demonstrates an SUV max of 2. No corresponding abnormality by CT. No abnormal FDG uptake within the visualized brain parenchyma. CHEST: Dense consolidation within the left upper to midlung zone which has progressed. There is patchy abnormal FDG uptake within the area of consolidation within SUV max of 4. There is also FDG uptake within the upper aspect of the left pectoralis muscle. These findings favor post radiation change. This area of dense consolidation obscures the previously identified left upper lobe nodules. Small amount of ill-defined soft tissue within the superior mediastinum and fluid. There is no significant FDG uptake at this location. This is significantly improved compared to the prior chest CT. There is a slightly hyperdense nodule within the right superior mediastinum on image 71 which measures 1.5 cm. This does not demonstrate abnormal FDG uptake. Prominent right paratracheal lymph nodes with the largest measuring 1.7 x 1.0 cm. This lymph node demonstrates minimal FDG uptake with an SUV max of 1.3. A few these right peritracheal lymph nodes have slightly increased in size compared to the February [address] Trace left pleural effusion. Mild thickening of the left posterior pleura. Groundglass densities within the right lung have slightly progressed within the right lower lobe but improved within the right upper lobe. Small to moderate pericardial effusion has progressed. This measures a maximal thickness of 1.7 cm. ABDOMEN/PELVIS: Below the diaphragm, tracer is distributed physiologically in the gastrointestinal and genitourinary tracts. There is no significant lymphadenopathy and no FDG-avid disease. Bilateral nephrolithiasis. MUSCULOSKELETAL: Scattered areas of FDG uptake within the muscles is likely physiologic. As described above there is FDG uptake associated with the neck of the right mandibular condyle. IMPRESSION: 1. Progressive dense consolidation within the left upper to midlung zone with patchy areas of FDG uptake. This is nonspecific but favors post radiation change. This density consolidation obscures the previous identified left upper lobe nodules. 2. Small amount of ill-defined soft tissue and fluid within the superior mediastinum is again noted. No significant FDG uptake identified. 3. Mildly enlarged right peritracheal lymph nodes have slightly increased in size. The dominant lymph node demonstrates minimal FDG uptake. This could represent recurrent metastatic disease. Short-term chest CT follow-up is recommended. 4. Trace left pleural effusion. 5. Small to moderate pericardial effusion which is increased in size. 6. Groundglass densities throughout the right lung which have progressed in the right lower lobe and improved within the upper lobe. This could be due to infectious change. 7. Mild FDG uptake within the neck of the right mandibular condyle without corresponding CT abnormality. Metastatic disease cannot be excluded. Electronically signed by: Jace Ceballos M.D. 06/25/2017 1:21 PM Dictated Date/Time: 06/25/2017 12:46 PM
== END | disposition home or self-care (01) ==
LOC: C.PET 09:46
PROVIDERS: ATTEND Internal Medicine Hematology
DX: C34.92 Malignant neoplasm of unspecified part of left bronchus or lung (principal); I26.99 Other pulmonary embolism without acute cor pulmonale

== ENCOUNTER → 2017-07-04 | Outpatient (CLI) | payer OTHER ==
[~2017-07-04] MED LIST changes: +GADAVIST IV PRN
--- NOTE | 2017-07-04 11:27 | DIAGNOSTIC IMAGING REPORT ---
BRAIN COMBO CLINICAL HISTORY: 56 years-old Male presenting with SMALL CELL CA LT LUNG, ACUTE PE. TECHNIQUE: Multisequence, multiplanar MR imaging of the brain was performed before and after the administration of intravenous contrast. IV contrast: 13 mL of Gadavist. COMPARISON: 02/26/2017. FINDINGS: Ventricles and sulci normal in size. 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 Brain parenchyma otherwise normal in appearance with preserved hernandez-white differentiation. No mass effect or midline shift. No restricted diffusion to suggest acute ischemia. No hemorrhage. No extra-axial fluid collection. T2 skull base flow voids preserved. No abnormal parenchymal enhancement. Bone marrow signal intensity within the calvarium within normal limits. IMPRESSION: 1. No acute intracranial pathology. No abnormal enhancement. No evidence of intracranial metastases. 2. 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 Electronically signed by: Octavio Trores M.D. 07/04/2017 11:25 AM Dictated Date/Time: 07/04/2017 11:17 AM
== END | disposition home or self-care (01) ==
LOC: C.MRI 09:31
PROVIDERS: ATTEND Internal Medicine Hematology
DX: C34.92 Malignant neoplasm of unspecified part of left bronchus or lung (principal); I26.99 Other pulmonary embolism without acute cor pulmonale

== ENCOUNTER → 2017-07-27 | Outpatient (CLI) | payer OTHER ==
[~2017-07-27] MED LIST changes: -GADAVIST IV PRN
--- NOTE | 2017-07-27 13:49 | DIAGNOSTIC IMAGING REPORT ---
VIDEO SWALLOW HISTORY: Cough. Dysphagia. DYSPHAGIA TECHNIQUE: Video fluoroscopic evaluation of swallowing was performed in the AP and lateral projections by the speech pathology staff. The patient is fed nectar-thick and thin liquid barium, a barium coated wafer, and barium pudding. FLUOROSCOPY TIME: 1.9 minutes. COMPARISON STUDY: None. FINDINGS: There is normal hyoid excursion and epiglottic deflection. Considerable penetration with thin liquids and semisolid fluids. No evidence for gokul aspiration. Moderate esophageal dysmotility. IMPRESSION: 1. No aspiration identified. Considerable penetration with a majority of food substances. Esophageal dysmotility. Moderate reflux. 2. Please see the speech pathologist report for detailed findings and recommendations. The above report was generated using voice recognition software. It may contain grammatical, syntax or spelling errors. Electronically signed by: Sunday Mckeon M.D. 07/27/2017 1:47 PM Dictated Date/Time: 07/27/2017 1:46 PM
--- NOTE | 2017-07-27 14:40 | SWALLOWING EVALUATION ---
HISTORY: This 56 year-old man, from home, who was referred for a VFSS at [facility]. He has a PMH significant for stage III lung cancer s/p chemo and radiation, DMII, A-Fib, and chronic back pain. Pt. had a bedside swallow eval 02/24/17 s/p extubation then had to be re-intubated 30 min later which resulted in d/c to [facility]ACH then to [facility]. Currently the patient is home and consuming a diet of regular foods. He complains of constant feeling of food sticking in his throat which impacts his breathing. PROCEDURE: The patient was seen in the Radiology Department of [facility] for the VFSS. Cursory examination of the oral cavity revealed adequate dentition. Movement of the articulators was WNL. The patient was seated in a wheel chair and was viewed in both the Anterior-Posterior (A-P) and Lateral planes. Volitional phonation exercises completed in the A-P plane revealed bilateral vocal fold movement and vocal intensity within functional limits. In the lateral plane, the patient was given the following barium-infused boluses: 1 tsp thin barium with oral hold 1x, self presented single cup swallow-thin barium 1x, self presented serial cup swallow 1x. 1 tsp nectar thick barium with oral hold 1x, self presented single cup swallow- nectar thick barium 1x, self presented serial cup swallows 1x. 1 tsp barium pudding-self presented 1x. 1/2 Cracker with barium paste. In the A-P view, pt was given 1 tsp barium pudding with esophageal scan. RESULTS: Oral Phase:Pt. had adequate lip closure and no labial escape of any food or liquid items presented. Pt. had adequate tongue control and bolus hold by demonstrating a cohesive bolus between tongue and palatal seal. Bolus preparation and mastication was WFL as timely and efficient chewing and mashing was observed with all consistencies. Bolus transport and lingual motion were functional as pt. demonstrated brisk tongue motion and no oral residue resulting in complete oral clearance. Initiation of pharyngeal swallow began with bolus head at posterior angle of ramus. * Overall WFL for oral phase of swallow. Pharyngeal Phase:Soft Palate Elevation was WFL for all boluses and no bolus was between the soft palate and the pharyngeal wall. Laryngeal elevation was reduced showing slightly reduced superior movement of the thyroid cartilage. Complete approximation of arytenoids to epiglottic base noted. Anterior Hyoid excursion was reduced but present with noted anterior movement as well as complete epiglottic inversion. Laryngeal Vestibular closure was noted and no air or barium was noted in laryngeal vestibule. Pharyngeal stripping wave was present and complete. Pharyngeal contraction was reduced for all tested items. Pharyngoesophageal segment opening was also reduced showing incomplete distension and incomplete duration with no obstruction of flow. Tongue base retraction was noted with all consistencies and tongue base made effective contact with posterior pharyngeal wall throughout study. There was minimal Pharyngeal residue resulting in complete pharyngeal clearance of all tested items. Mild pharyngeal stage dysphagia characterized by discordination of sequential swallows, reduced laryngeal elevation and reduced pharyngeal constriction. *Single tsp and single cup swallows of thins and nectar thick liquids as well as pudding and cracker with pudding were WFL with no penetration or aspiration noted. *Sequential swallows of thins and nectar thick liquids resulted in deep penetration and dis-coordination of swallow. Esophageal Phase:Opening and closing of the UES was timely and efficient with complete clearance of all tested items. Noted mild esophageal dysmotility with retrograde flow. RADIOLOGY REPORT: FINDINGS: There is normal hyoid excursion and epiglottic deflection. Considerable penetration with thin liquids and semisolid fluids. No evidence for gokul aspiration. Moderate esophageal dysmotility. IMPRESSION: 1. No aspiration identified. Considerable penetration with a majority of food substances. Esophageal dysmotility. Moderate reflux. 2. Please see the speech pathologist report for detailed findings and recommendations. SUMMARY/RECOMMENDATIONS: Overall pt. presents with NO oral dysphagia and mild pharyngeal dysphagia characterized by deep penetration of thins and nectars on sequential swallows. NO aspiration occurred. Penetration occurred on thins and nectars with only sequential swallows. Recommendin. Regular diet with thin liquids 2. SINGLE swallows no straws 3. GERD precautions -upright for all intake, remain upright for 30 in after all inake, no intake 30 in before bed, keep head of bed upright at least 30 degrees at all times-even sleep. All results and recommendations were discussed with the pt. and written instructions provided. Thank you for referral of this patient. Please contact me at if any additional information is needed.
== END | disposition home or self-care (01) ==
LOC: C.RAD 12:53
PROVIDERS: ATTEND Family Medicine
DX: R13.10 Dysphagia, unspecified (principal)

== ENCOUNTER 2020-11-16 11:23 | Inpatient (IN) ==
[2020-11-16] MEDS ORDERED: SODIUM CHLORIDE 0.9% 1000ML 2,000 ML IV ONE (11:43)
[2020-11-16] MEDS ORDERED: VANCOMYCIN CONSULT ACTIVE PRN ×2 (12:02→14:46)
[2020-11-16] MEDS ORDERED: VANCOMYCIN HCL 2,750 MG in SODIUM CHLORIDE 0.9% 500 ML IV ONE (12:02)
[2020-11-16] MEDS ORDERED: metroNIDAZOLE 500 MG/100 ML BAG IV STA (12:04)
[2020-11-16] MEDS ORDERED: CEFEPIME 2,000 MG/20 ML VIAL IV STA (12:04)
--- NOTE | 2020-11-16 12:12 | Emergency Department Note ---
Impression & Plan Sepsis, Acute hypotension, Cellulitis ED Provider Note NAME: LAVERNE BRADY AGE: 60 SEX: M : 1960 ARRIVES VIA: Ambulance INFORMANT: Patient ED PROVIDER(S): Nico Gatica DO CHIEF COMPLAINT: Left foot infection HPI: Patient is a 60-year-old male who presents to the ER following bleeding from his left foot. He notes this occurred 2 days ago. He has no sensation in his foot. He notices it 2 days ago and the redness has been worsening. Denies any fevers. No headache or change in vision. No chest pain or shortness of breath. No cough or runny nose. No belly pain, nausea, vomiting, or diarrhea. No dysuria, urgency, or frequency. He notes his sugars have been running a little bit higher than usual. ROS: See above HPI for pertinent positives & negatives. A total of 10 systems reviewed and were otherwise negative. PAST MEDICAL HISTORY:See Below PAST SURGICAL HISTORY:See Below FAMILY HISTORY:See Below SOCIAL HISTORY:See Below HOME MEDICATIONS:See Below ALLERGIES:See Below VITALS:See Below PHYSICAL EXAMINATION: GENERAL: Sitting up in bed, alert, ill-appearing, disheveled EYE EXAM: normal conjunctiva. OROPHARYNX: no exudate, no erythema, lips, buccal mucosa, and tongue normal and mucous membranes are moist NECK: supple, no nuchal rigidity, no adenopathy, non-tender LUNGS: Clear to auscultation. Normal chest wall mechanics HEART: no murmurs, S1 normal and S2 normal ABDOMEN: abdomen soft, non-tender, normo-active bowel sounds, no masses, no rebound or guarding. UPPER EXTREMITIES: upper extremities are grossly normal. LOWER EXTREMITIES: Swelling and redness over the left first the second toe. Laceration about 2 cm with redness streaking up the midfoot NEURO EXAM: Normal sensorium, cranial nerves II-XII grossly intact, normal speech, no gross weakness of arms, no gross weakness of legs. MEDICAL DECISION MAKING: Patient is a 60-year-old male who presents the ER for wound on his left foot. On exam he has a clear cellulitis and is ill-appearing. He is hypotensive with systolic pressures in the eighties. IVs were established blood work was obtained. Labs show a mild leukocytosis of 12,000. No significant anemia. INR was unremarkable. BMP with a CO2 of 20. Glucose was elevated at 340. Gap of 15. X-rays of the chest and foot show questionable necrotizing fasciitis of the foot. Patient was given IV cefepime, Flagyl and vancomycin. He was given 2 L of IV fluids. Systolic pressures improved to the one hundreds. Heart rate trended down to the nineties. He was updated bedside. Discussed with hospitalist admitted for further work-up. He was given IV insulin with BSG the trend down to two forties. Chest x-ray unchanged from previous Triage Nursing notes reviewed. Limited review of prior medical records performed Vital Signs: reviewed and remarkable for hypotensive and tachycardic Differential diagnosis: Differential diagnosis includes etiologies such as sepsis, UTI, pneumonia, metabolic, electrolyte abnormalities, cardiac sources, intracerebral event, toxicologic, neurological, as well as others were entertained. ER treatment provided: See below Diagnostics interpreted by me: ECG: Sinus rhythm rate of 87 Left axis No PVCs QTC 472 Cardiac Monitoring: An order was placed for continuous cardiac monitoring. The monitor shows a rate of 101 with sinus rhythm. Laboratory studies: As stated above and show below. Imaging studies: X-rays of the left foot show gas on x-ray with out osteo- X-ray of the chest shows infiltrate left upper chest wall consistent with previous Consultation(s): Discussed with [facility] for further evaluation Procedures: none Critical Care: I have personally spent 33 minutes of critical care time in the direct management of this patient. This includes bedside care, interpretation of diagnostic studies, and testing, discussion with consultants, patient, and family members, and other required patient management activities. This 33 minutes is in excess of all separately billable procedures. Past Med/Surg History Medical History (Updated 11/16/20 @ 15:41 by Kristen Lance PA-C) Anxiety Chronic back pain COPD (chronic obstructive pulmonary disease) Depression with anxiety HLD (hyperlipidemia) HTN (hypertension) Insomnia Insulin dependent type 2 diabetes mellitus Pericardial effusion Pneumonia Post laminectomy syndrome Primary cancer of left upper lobe of lung (10/02/16) "Development of left neck and arm swelling CT finding of impending superior vena caval syndrome, mediastinal mass and left upper lobe mass Status post anterior mediastinal endoscopy and biopsy [place] procedure 10/02/2016 Small cell carcinoma Emergent chemotherapy 10/10/2016 carboplatin and etoposide Excellent clinical response Status post completion of combined radiation and chemotherapy radiation completed 12/19/2016. He received 7000 cGy 12/24/2017 finding of brain metastasis 01/16/2018 status post completion of whole brain radiation therapy. He received 3000 cGy. On 10/17/16 10:30 Alexsandra Galvez wrote "Development of left neck and arm swelling CT finding of impending superior vena caval syndrome, mediastinal mass and left upper lobe mass Status post anterior mediastinal endoscopy and biopsy [place] procedure 10/02/2016 Small cell carcinoma Emergent chemotherapy 10/10/2016 carboplatin and etoposide Excellent clinical response Planned PET/CT 10/18/2016" On 10/17/16 10:22 Alexsandra Galvez wrote "Development of left neck and arm swelling CT finding of impending superior vena caval syndrome Status post anterior mediastinal endoscopy and biopsy [place] procedure 10/02/2016 Small cell carcinoma Emergent chemotherapy 10/10/2016 carboplatin and etoposide Excellent clinical response Planned PET/CT 10/18/2016" Surgical History (Updated 11/16/20 @ 14:29 by Kristen Lance PA-C) History of back surgery x4 History of hernia surgery Social History (Updated 11/16/20 @ 14:30 by Kristen Lance PA-C) Smoking Status: Former smoker Tobacco Type: Cigarettes packs per day: 1; Years Smoked: 16; Cigarettes Per Day: 20; Smoking End Date: 05/19/20; Hx Alcohol Use: No Hx Substance Use: No Preferred Language: Hebrew Communication Ability: Effective [employer]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 Beliefs That Will Affect Care: None Current Living Situation: Alone Other Information That Helps Us Care for You: No Feels Safe at Home: Yes Safety Concerns: Feels Safe At This Time Assistive Devices: Cane Allergies Allergies Allergy/AdvReac Type Severity Reaction Status Date / Time amoxicillin Allergy Intermediate sob Verified 11/16/20 13:49 atorvastatin Allergy Intermediate diarrhea Verified 11/16/20 13:49 acetaminophen Allergy Unknown PT STATES Verified 11/16/20 13:49 "IT INTENSIFIES EFFECT" clindamycin Allergy Unknown SHORTNESS Verified 11/16/20 13:49 OF BREATH escitalopram Allergy Unknown GI UPSET Verified 11/16/20 13:49 gabapentin Allergy Unknown CONSTIPATIO Verified 11/16/20 13:49 N insulin aspart Allergy Unknown ALLERGIC Verified 11/16/20 13:49 TO PRESERVATIVES IN NOVOLOG - OK WITH REGULAR/NPH morphine Allergy Unknown DID NOT Verified 11/16/20 13:49 TOLERATE PER PT propoxyphene Allergy Unknown "DID CRAZY Verified 11/16/20 13:49 THINGS" sitagliptin Allergy Unknown UNKNOWN RXN Verified 11/16/20 13:49 adhesive AdvReac Unknown "rips his Verified 11/16/20 13:49 skin off" dextromethorphan AdvReac Unknown HARD TO Verified 11/16/20 13:49 BREATHE? guaifenesin AdvReac Unknown HARD TO Verified 11/16/20 13:49 BREATHE? metformin AdvReac Unknown PT STATES Verified 11/16/20 13:49 "DID NOT WORK" Home Meds Home Medications Medication Instructions Recorded Confirmed garlic 400 mg tablet,delayed 400 mg PO DAILY tab 01/01/18 11/16/20 release phenylephrine HCl 0.25 % nasal 1 sprays INTNAS Q8H PRN 01/01/18 11/16/20 spray (Reyes-Synephrine (phenylephrine)) rosuvastatin 5 mg tablet (Crestor) 20 mg PO DAILY 01/01/18 11/16/20 cholecalciferol (vitamin D3) 125 125 mcg PO DAILY 05/23/20 11/16/20 mcg (5,000 unit) tablet diclofenac sodium 1 % topical gel 1 ea TOPICAL HS PRN 05/23/20 11/16/20 lorazepam 0.5 mg tablet 0.5 mg PO .Q2-4H PRN 05/23/20 11/16/20 magnesium oxide 500 mg tablet 250 mg PO DAILY 05/23/20 11/16/20 vitamin E 400 unit capsule 400 unit PO BID 05/23/20 11/16/20 zolpidem 10 mg tablet 10 mg PO HS 05/23/20 11/16/20 cyclobenzaprine 10 mg tablet 10 mg PO DAILY 05/28/20 11/16/20 fluticasone propionate 50 2 spray INTRANASAL DAILY 05/28/20 11/16/20 mcg/actuation nasal spray,suspension quetiapine 25 mg tablet 25 mg PO BID 05/28/20 11/16/20 aripiprazole 5 mg tablet 5 mg PO DAILY 11/16/20 11/16/20 metoprolol succinate 25 mg 25 mg PO DAILY 11/16/20 11/16/20 tablet,extended release 24 hr pantoprazole 40 mg tablet,delayed 40 mg PO DAILY 11/16/20 11/16/20 release Previous Rx's Medication Instructions Recorded Contour Next Test Strips (blood #800 ea NS 07/15/19 sugar diagnostic) insulin regular human 100 unit/mL 35 units SQ QID #130 ml 07/15/19 injection solution (Humulin R Regular U-100 Insulin) lancets 31 gauge #800 ea 07/15/19 diphenhydramine HCl 25 mg capsule 25 mg PO Q6H PRN #0 cap 05/29/20 (Benadryl) diphenhydramine-zinc acetate 2 1 applic EXT BID PRN #0 g 05/29/20 %-0.1 % topical cream (Anti-Itch (diphenhydramine) with Zinc) famotidine 20 mg tablet 20 mg PO QAM #0 tab 05/29/20 ibuprofen 600 mg tablet 600 mg PO UD #0 tab 05/29/20 lisinopril 2.5 mg tablet 2.5 mg PO QAM #30 tab 05/29/20 melatonin 3 mg tablet 3 mg PO HS PRN #0 tab 05/29/20 oxycodone 5 mg tablet 5 mg PO Q8H PRN #30 tab 05/29/20 Results & Data (ED) Vital Signs Vital Signs - 24 hr 11/16/20 11:33 11/16/20 11:37 11/16/20 12:13 Temperature 37 C Temperature Source Oral Pulse Rate 99 H 103 H Pulse Rate from SpO2 Sensor Pulse Rhythm Regular Pulse Strength Normal Respiratory Rate 20 18 Respiratory Effort / Characteristics Non-Labored Spontaneous Non-Labored Respiratory Depth Normal Blood Pressure 87/69 L 87/69 L Blood Pressure Mean 75 75 Blood Pressure Position Sitting Pulse Oximetry 97 Oxygen Delivery Method Room Air Room Air Sepsis Recent Fever Within 48 Hours No Sepsis New/Unexplained Change in Mental Status N/A Sepsis Action Taken by Nursing Physician Notified 11/16/20 12:30 11/16/20 12:34 11/16/20 12:45 Temperature Temperature Source Pulse Rate 98 H 98 H Pulse Rate from SpO2 Sensor 97 H 99 H Pulse Rhythm Pulse Strength Respiratory Rate 24 18 Respiratory Effort / Characteristics Non-Labored Spontaneous Respiratory Depth Blood Pressure 161/86 H 184/90 H Blood Pressure Mean 111 121 Blood Pressure Position Pulse Oximetry 96 100 100 Oxygen Delivery Method Room Air Room Air Sepsis Recent Fever Within 48 Hours Sepsis New/Unexplained Change in Mental Status Sepsis Action Taken by Nursing 11/16/20 13:00 11/16/20 13:15 11/16/20 13:30 Temperature Temperature Source Pulse Rate 95 H 97 H 92 H Pulse Rate from SpO2 Sensor 95 H 95 H 101 H Pulse Rhythm Pulse Strength Respiratory Rate 17 18 Respiratory Effort / Characteristics Respiratory Depth Blood Pressure 165/67 H 169/70 H 164/75 H Blood Pressure Mean 99 103 104 Blood Pressure Position Pulse Oximetry 96 96 Oxygen Delivery Method Sepsis Recent Fever Within 48 Hours Sepsis New/Unexplained Change in Mental Status Sepsis Action Taken by Nursing Laboratory Data Result diagrams: 11/16/20 11:58 11/16/20 Unknown Lab Results 11/16/20 11/16/20 11/16/20 Range/Units 11:58 11:58 11:58 WBC 12.90 H (4.8-10.8) K/uL RBC 5.12 (4.7-6.1) M/uL Hgb 15.9 (14.0-18.0) g/dL Hct 45.6 (42-52) % MCV 89.1 (80-100) fL MCH 31.1 (25-34) pg MCHC 34.9 (32-36) g/dL RDW Std Deviation 46.3 (36.4-46.3) fL RDW Coeff of Alex 14.3 (11.5-14.5) % Plt Count 239 (130-400) K/uL MPV 11.5 H (7.4-10.4) fL Immature Gran % (Auto) 0.9 % Neut % (Auto) 85.6 % Lymph % (Auto) 5.5 % Rowan % (Auto) 7.5 % Eos % (Auto) 0.3 % Baso % (Auto) 0.2 % Neut # (Auto) 11.05 H (1.4-6.5) K/uL Lymph # (Auto) 0.71 L (1.2-3.4) K/uL Rowan # (Auto) 0.97 H (0.11-0.59) K/uL Eos # (Auto) 0.04 (0-0.5) K/uL Baso # (Auto) 0.02 (0-0.2) K/uL Immature Gran # (Auto) 0.11 H (0.00-0.02) K/uL ESR (0-20) mm/hr PT Cancelled INR Cancelled APTT Cancelled PTT Ratio Cancelled Sodium Cancelled Potassium Cancelled Chloride Cancelled Carbon Dioxide Cancelled Anion Gap Cancelled BUN Cancelled Creatinine Cancelled Est Cr Clr Drug Dosing Cancelled Est GFR ( Amer) Cancelled Est GFR (Non-Af Amer) Cancelled BUN/Creatinine Ratio Cancelled Glucose Cancelled POC Glucose (70-99) mg/dl Lactate Calcium Cancelled Magnesium Cancelled Total Bilirubin Cancelled AST Cancelled ALT Cancelled Alkaline Phosphatase Cancelled Troponin I Cancelled Total Protein Cancelled Albumin Cancelled Globulin Cancelled Albumin/Globulin Ratio Cancelled Procalcitonin COVID-19 Eval Order SARS-CoV-2 (PCR) (Negative) 11/16/20 11/16/20 11/16/20 Range/Units 11:58 11:58 11:58 WBC (4.8-10.8) K/uL RBC (4.7-6.1) M/uL Hgb (14.0-18.0) g/dL Hct (42-52) % MCV (80-100) fL MCH (25-34) pg MCHC (32-36) g/dL RDW Std Deviation (36.4-46.3) fL RDW Coeff of Alex (11.5-14.5) % Plt Count (130-400) K/uL MPV (7.4-10.4) fL Immature Gran % (Auto) % Neut % (Auto) % Lymph % (Auto) % Rowan % (Auto) % Eos % (Auto) % Baso % (Auto) % Neut # (Auto) (1.4-6.5) K/uL Lymph # (Auto) (1.2-3.4) K/uL Rowan # (Auto) (0.11-0.59) K/uL Eos # (Auto) (0-0.5) K/uL Baso # (Auto) (0-0.2) K/uL Immature Gran # (Auto) (0.00-0.02) K/uL ESR 119 H (0-20) mm/hr PT INR APTT PTT Ratio Sodium Potassium Chloride Carbon Dioxide Anion Gap BUN Creatinine Est Cr Clr Drug Dosing Est GFR ( Amer) Est GFR (Non-Af Amer) BUN/Creatinine Ratio Glucose POC Glucose (70-99) mg/dl Lactate Cancelled Calcium Magnesium Total Bilirubin AST ALT Alkaline Phosphatase Troponin I Total Protein Albumin Globulin Albumin/Globulin Ratio Procalcitonin Cancelled COVID-19 Eval Order SARS-CoV-2 (PCR) (Negative) 11/16/20 11/16/20 11/16/20 Range/Units 12:05 12:05 12:06 WBC (4.8-10.8) K/uL RBC (4.7-6.1) M/uL Hgb (14.0-18.0) g/dL Hct (42-52) % MCV (80-100) fL MCH (25-34) pg MCHC (32-36) g/dL RDW Std Deviation (36.4-46.3) fL RDW Coeff of Alex (11.5-14.5) % Plt Count (130-400) K/uL MPV (7.4-10.4) fL Immature Gran % (Auto) % Neut % (Auto) % Lymph % (Auto) % Rowan % (Auto) % Eos % (Auto) % Baso % (Auto) % Neut # (Auto) (1.4-6.5) K/uL Lymph # (Auto) (1.2-3.4) K/uL Rowan # (Auto) (0.11-0.59) K/uL Eos # (Auto) (0-0.5) K/uL Baso # (Auto) (0-0.2) K/uL Immature Gran # (Auto) (0.00-0.02) K/uL ESR (0-20) mm/hr PT 9.7 INR 1.0 APTT 25.3 PTT Ratio 1.0 Sodium Potassium Chloride Carbon Dioxide Anion Gap BUN Creatinine Est Cr Clr Drug Dosing Est GFR ( Amer) Est GFR (Non-Af Amer) BUN/Creatinine Ratio Glucose POC Glucose (70-99) mg/dl Lactate Calcium Magnesium Total Bilirubin AST ALT Alkaline Phosphatase Troponin I Total Protein Albumin Globulin Albumin/Globulin Ratio Procalcitonin COVID-19 Eval Order Covid19 at [facility] SARS-CoV-2 (PCR) NEGATIVE (Negative) 11/16/20 11/16/20 Range/Units 12:06 13:21 WBC (4.8-10.8) K/uL RBC (4.7-6.1) M/uL Hgb (14.0-18.0) g/dL Hct (42-52) % MCV (80-100) fL MCH (25-34) pg MCHC (32-36) g/dL RDW Std Deviation (36.4-46.3) fL RDW Coeff of Alex (11.5-14.5) % Plt Count (130-400) K/uL MPV (7.4-10.4) fL Immature Gran % (Auto) % Neut % (Auto) % Lymph % (Auto) % Rowan % (Auto) % Eos % (Auto) % Baso % (Auto) % Neut # (Auto) (1.4-6.5) K/uL Lymph # (Auto) (1.2-3.4) K/uL Rowan # (Auto) (0.11-0.59) K/uL Eos # (Auto) (0-0.5) K/uL Baso # (Auto) (0-0.2) K/uL Immature Gran # (Auto) (0.00-0.02) K/uL ESR (0-20) mm/hr PT INR APTT PTT Ratio Sodium Potassium Chloride Carbon Dioxide Anion Gap BUN Creatinine Est Cr Clr Drug Dosing Est GFR ( Amer) Est GFR (Non-Af Amer) BUN/Creatinine Ratio Glucose POC Glucose 327 H* (70-99) mg/dl Lactate Calcium Magnesium Total Bilirubin AST ALT Alkaline Phosphatase Troponin I Total Protein Albumin Globulin Albumin/Globulin Ratio Procalcitonin 0.17 COVID-19 Eval Order SARS-CoV-2 (PCR) (Negative) Administered Medications Sodium Chloride (Nss 1000ml) 1,000 mls @ 125 mls/hr IV .Q8H LUCIANA Stop: 12/16/20 14:44 Last Admin: 11/16/20 15:52 Dose: 125 mls/hr Documented by: [id number] Insulin Human Regular 250 (units/ Sodium Chloride) 250 mls @ 2.6 mls/hr IV .Q24H LUCIANA; Protocol Stop: 12/16/20 15:29 Last Admin: 11/16/20 15:52 Dose: 2.6 units/hr, 2.6 mls/hr Documented by: [id number] Cosigned by: [id number] Discontinued Medications Sodium Chloride (Nss 1000ml) 2,000 mls @ 999 mls/hr IV .Q2H1M ONE Stop: 11/16/20 13:43 Last Infusion: 11/16/20 14:08 Dose: 0 mls/hr Documented by: [id number] Admin: 11/16/20 12:05 Dose: 999 mls/hr Documented by: [id number] Vancomycin HCl 2,750 mg/ (Sodium Chloride) 555 mls @ 200 mls/hr IV NOW ONE Stop: 11/16/20 14:49 Last Infusion: 11/16/20 15:35 Dose: 0 mls/hr Documented by: [id number] Admin: 11/16/20 12:37 Dose: 200 mls/hr Documented by: [id number] Cefepime HCl (Maxipime) 2,000 mg in 20 mls @ 5 mls/min IV NOW STA; Protocol Stop: 11/16/20 12:07 Last Admin: 11/16/20 12:26 Dose: 5 mls/min Documented by: [id number] Metronidazole (Flagyl) 500 mg in 100 mls @ 100 mls/hr IV NOW STA Stop: 11/16/20 13:03 Last Infusion: 11/16/20 13:33 Dose: 0 mls/hr Documented by: [id number] Admin: 11/16/20 12:24 Dose: 100 mls/hr Documented by: [id number] Insulin Human Regular (Novolin-R Insulin Per Unit Charge) 5 units IV NOW STA Stop: 11/16/20 13:27 Last Admin: 11/16/20 13:36 Dose: 3 units Documented by: [id number] Cosigned by: [id number] Miscellaneous (Insulin Protocol Goal Range ) 1 ea N/A ONE ONE Stop: 11/16/20 15:09 Last Admin: 11/16/20 15:56 Dose: 1 ea Documented by: [id number] Imaging Data Radiologist's Impression: Chest X-Ray 11/16/20 11:43 SINGLE VIEW CHEST CLINICAL HISTORY: Sepsis. FINDINGS: An AP, portable, upright chest radiograph is compared to study dated 05/23/2020 and correlated with chest CT dated 05/24/2020. The examination is degraded by portable technique and patient rotation. The heart is mildly enlarged. The pulmonary vasculature is noncongested. Emphysema and chronic interstitial thickening is similar to previous. Borderline loss is again seen in the left lung with elevation of the left hemidiaphragm and fibrosis of the left upper lobe. The right lung appears clear. No large pleural effusion or pneumothorax is seen. The skeletal structures are osteopenic. The bony thorax is grossly intact. IMPRESSION: 1. No acute cardiopulmonary abnormality is identified. 2. Emphysema and chronic parenchymal changes as above. ACT 112: Negative or not required by law. Electronically signed by: Hero Fair M.D. 11/16/2020 12:47 PM Foot X-Ray 11/16/20 12:02 XR foot LT 2V CLINICAL HISTORY: 1-2 toe ? osteo. Left first toe swelling. COMPARISON STUDY: None. FINDINGS: No fracture or dislocation within the left foot. There is a plantar heel spur. Soft tissue swelling centered at the first MTP joint and base of the second toe. There is soft tissue gas along the lateral aspect of the first toe. There is 9 mm linear radiopaque foreign body seen along the plantar/medial soft tissues at the level of the head of the first metatarsal. There is also a 3 mm linear metallic foreign body seen at the plantar/medial soft tissues at the level the second metatarsal head. Additional scattered foci of superficial debris also seen along the plantar surface of the forefoot. IMPRESSION: 1. No cortical destruction to suggest osteomyelitis. 2. There is soft tissue swelling and soft tissue gas along the lateral aspect of the first toe. This is highly suspicious for an infection and could be due to a gas-forming organism. 2. There are 2 linear metallic foreign bodies seen within the plantar surface of the left foot at the level of the first and second metatarsal heads as described above. ACT 112: Negative or not required by law. Electronically signed by: Jace Ceballos M.D. 11/16/2020 1:19 PM Discharge Plan Visit Data Chief Complaint: Illness ED Provider: Nico Gatica Discharge Problem: Sepsis, Acute hypotension, Cellulitis Patient Disposition: Admitted As Inpatient Discharge Instructions Interventions: ED Discharge Assessment Last Done: 11/16/20 14:11
[2020-11-16 12:28] LABS: Basophils # (auto) 0.02 K/uL (0-0.2); Basophils % (auto) 0.2 %; Eosinophils # (auto) 0.04 K/uL (0-0.5); Eosinophils % (auto) 0.3 %; Hematocrit (blood only) 45.6 % (42-52); Hemoglobin 15.9 g/dL (14.0-18.0); Immature Granulocytes # (auto) 0.11 K/uL (0.00-0.02); Immature Granulocytes % (auto) 0.9 %; Lymphocytes # (auto) 0.71 K/uL (1.2-3.4); Lymphocytes % (auto) 5.5 %; Mean Corpuscular Hemoglobin 31.1 pg (25-34); Mean Corpuscular Hgb Conc 34.9 g/dL (32-36); Mean Corpuscular Volume 89.1 fL (80-100); Mean Platelet Volume 11.5 fL (7.4-10.4); Monocytes # (auto) 0.97 K/uL (0.11-0.59); Monocytes % (auto) 7.5 %; Neutrophils # (auto) 11.05 K/uL (1.4-6.5); Neutrophils % (auto) 85.6 %; Platelet Count 239 K/uL (130-400); RDW Coefficient of Variation 14.3 % (11.5-14.5); RDW Standard Deviation 46.3 fL (36.4-46.3); Red Blood Count 5.12 M/uL (4.7-6.1)
[2020-11-16 12:43] LABS: Partial Thromboplastin Time 25.3 Seconds (21.0-31.0); Prothrombin Time 9.7 Seconds (9.0-12.0)
--- NOTE | 2020-11-16 12:49 | XRay Report ---
SINGLE VIEW CHEST CLINICAL HISTORY: Sepsis. FINDINGS: An AP, portable, upright chest radiograph is compared to study dated 05/23/2020 and correlat ed with chest CT dated 05/24/2020. The examination is degraded by portable technique and patient rotati on. The heart is mildly enlarged. The pulmonary vasculature is noncongested. Emphysema and chronic in terstitial thickening is similar to previous. Borderline loss is again seen in the left lung with kathy vation of the left hemidiaphragm and fibrosis of the left upper lobe. The right lung appears clear. N o large pleural effusion or pneumothorax is seen. The skeletal structures are osteopenic. The bony th orax is grossly intact. IMPRESSION: 1. No acute cardiopulmonary abnormality is identified. 2. Emphysema and chronic parenchymal changes as above. ACT 112: Negative or not required by law. Electronically signed by: Hero Fair M.D. 11/16/2020 12:47 PM
[2020-11-16 12:51] LABS: Alanine Aminotransferase 17 U/L (12-78); Albumin Globulin Ratio 0.4 (0.9-2); Albumin Level 2.1 gm/dl (3.4-5.0); Alkaline Phosphatase 125 U/L (45-117); Aspartate Aminotransferase 30 U/L (15-37); BUN Creatinine Ratio 22.7 (10-20); Bilirubin,Total 0.4 mg/dl (0.2-1); Blood Urea Nitrogen 17 mg/dl (7-18); Calcium 9.7 mg/dl (8.5-10.1); Carbon Dioxide 20 mmol/L (21-32); Chloride 96 mmol/L (98-107); Est GFR (African American) 118.5 ml/min; Est GFR (Non-African American) 102.2 ml/min; Globulin 5.3 gm/dl (2.5-4.0); Glucose 343 mg/dl (70-99); Magnesium 2.2 mg/dl (1.8-2.4); Potassium 4.1 mmol/L (3.5-5.1); Sodium 131 mmol/L (136-145); Total Protein 7.4 gm/dl (6.4-8.2); Troponin I < 0.015 ng/ml (0-0.045)
--- NOTE | 2020-11-16 13:20 | XRay Report ---
XR foot LT 2V CLINICAL HISTORY: 1-2 toe ? osteo. Left first toe swelling. COMPARISON STUDY: None. FINDINGS: No fracture or dislocation within the left foot. There is a plantar heel spur. Soft tissue swelling centered at the first MTP joint and base of the second toe. There is soft tissue gas along t he lateral aspect of the first toe. There is 9 mm linear radiopaque foreign body seen along the plant ar/medial soft tissues at the level of the head of the first metatarsal. There is also a 3 mm linear metallic foreign body seen at the plantar/medial soft tissues at the level the second metatarsal head . Additional scattered foci of superficial debris also seen along the plantar surface of the forefoot . IMPRESSION: 1. No cortical destruction to suggest osteomyelitis. 2. There is soft tissue swelling and soft tissue gas along the lateral aspect of the first toe. This is highly suspicious for an infection and could be due to a gas-forming organism. 2. There are 2 linear metallic foreign bodies seen within the plantar surface of the left foot at the level of the first and second metatarsal heads as described above. ACT 112: Negative or not required by law. Electronically signed by: Jace Ceballos M.D. 11/16/2020 1:19 PM
[2020-11-16 13:23] LABS: Beta-Hydroxybutyrate 53.75 mg/dl (0.2-2.81)
[2020-11-16] MEDS: NovoLIN-R INSULIN PER UNIT CHARGE IV STA ×2 (13:33→13:36)
[2020-11-16] MEDS ORDERED: PHARMACY GLYCEMIC MGMT CONSULT PRN (14:12)
[2020-11-16] MEDS ORDERED: SODIUM CHLORIDE 0.9% 1000ML 1,000 ML IV SCH (14:40)
--- NOTE | 2020-11-16 14:40 | History & Physical Report ---
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 Sepsis - met 2/2 to leukocytosis, tachycardia, evidence of L great toe infection L great toe diabetic foot wound Diabetic Peripheral neuropathy admit to PCU consult orthopedics ESR & CRP elevated 119 and 17.40 obtain MRI w/ contrast continue IV vanco, cefepime, flagyl blood cultures obtain, check UA neuropathy precautions would culture, wound nurse Early developing DKA IDDM T2, poorly controlled with hyperglycemia noncompliant last a1c 10.0 07/2020, obtain a1c consult glycemic pharmacy for assistance - appreciate their input elevated beta hydroxybutyric acid, elevated anion gap 15.0, low bicarb, ph 7.39 HTN Patient prescribed lisinopril and metoprolol, although states not taking We will hold for now in setting of sepsis Hyperlipidemia Prescribed Crestor, patient admits to not taking Last cholesterol panel on 08/11/2020 revealed triglyceride 370, total cholesterol 253, LDL 140, HDL 34 Hold for now Tobacco abuse COPD Declines nicotine patch No acute exacerbation per previous documentation pt requiring home o2, pt currently declines History of small cell lung cancer with metastases to brain status post chemotherapy, radiation and WBRT Currently in remission per patient Depression with anxiety Insomnia Prescribed Abilify, Seroquel and Ambien Patient states only taking Ambien, continue Ambien for now DVT ppx: scd for now until determined if pt need surgical intervention Dispo: PCU PCP: Lizz, will need discussion with patient regarding compliance. Pt only taking ambien and insulin for some time. FULL CODE Pt was seen and examined in collaboration with Dr. Jung, please see addendum History of Present Illness Chief Complaint: L foot wound x 2 days. 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 Patient states he has numbness and is unable to feel his feet, but 2 days ago he noticed significant bleeding coming on the left foot. When he looked down he noticed his foot was turning, "green and black." His left foot continued to get more red and therefore he decided to come to ED. Patient states he lives alone in a trailer. He is noncompliant with his medications as he is only taking Ambien and insulin. He admits to his blood sugars being consistently in the 300s. He denies any fever, chills, sweats, lightheadedness, dizziness, chest pain, shortness of breath, cough, nausea, vomiting, abdominal pain, change in bowel or urinary habits. He states over the last 4 weeks he has had significant decreased appetite. He admits to a 40 pound unintentional weight loss. In ED patient met sepsis criteria secondary to leukocytosis, tachycardia and evidence of left foot wound infection. He received 2 L of IV fluid and was started on IV vancomycin, cefepime and Flagyl. Foot x-ray concerning for soft tissue swelling and soft tissue gas along the lateral aspect of first toe highly suspicious for infection which could be due to a gas-forming organism. Allergies Allergy/AdvReac Type Severity Reaction Status Date / Time amoxicillin Allergy Intermediate sob Verified 11/16/20 13:49 atorvastatin Allergy Intermediate diarrhea Verified 11/16/20 13:49 acetaminophen Allergy Unknown PT STATES Verified 11/16/20 13:49 "IT INTENSIFIES EFFECT" clindamycin Allergy Unknown SHORTNESS Verified 11/16/20 13:49 OF BREATH escitalopram Allergy Unknown GI UPSET Verified 11/16/20 13:49 gabapentin Allergy Unknown CONSTIPATIO Verified 11/16/20 13:49 N insulin aspart Allergy Unknown ALLERGIC Verified 11/16/20 13:49 TO PRESERVATIVES IN NOVOLOG - OK WITH REGULAR/NPH morphine Allergy Unknown DID NOT Verified 11/16/20 13:49 TOLERATE PER PT propoxyphene Allergy Unknown "DID CRAZY Verified 11/16/20 13:49 THINGS" sitagliptin Allergy Unknown UNKNOWN RXN Verified 11/16/20 13:49 adhesive AdvReac Unknown "rips his Verified 11/16/20 13:49 skin off" dextromethorphan AdvReac Unknown HARD TO Verified 11/16/20 13:49 BREATHE? guaifenesin AdvReac Unknown HARD TO Verified 11/16/20 13:49 BREATHE? metformin AdvReac Unknown PT STATES Verified 11/16/20 13:49 "DID NOT WORK" Home Medications Medication Instructions Recorded Confirmed Type garlic 400 mg tablet,delayed 400 mg PO DAILY tab 01/01/18 11/16/20 History release phenylephrine HCl 0.25 % nasal 1 sprays INTNAS Q8H PRN 01/01/18 11/16/20 History spray (Reyes-Synephrine (phenylephrine)) rosuvastatin 5 mg tablet (Crestor) 20 mg PO DAILY 01/01/18 11/16/20 History Contour Next Test Strips (blood #800 ea NS 07/15/19 11/16/20 Rx sugar diagnostic) insulin regular human 100 unit/mL 35 units SQ QID #130 ml 07/15/19 11/16/20 Rx injection solution (Humulin R Regular U-100 Insulin) lancets 31 gauge #800 ea 07/15/19 11/16/20 Rx cholecalciferol (vitamin D3) 125 125 mcg PO DAILY 05/23/20 11/16/20 History mcg (5,000 unit) tablet diclofenac sodium 1 % topical gel 1 ea TOPICAL HS PRN 05/23/20 11/16/20 History lorazepam 0.5 mg tablet 0.5 mg PO .Q2-4H PRN 05/23/20 11/16/20 History magnesium oxide 500 mg tablet 250 mg PO DAILY 05/23/20 11/16/20 History vitamin E 400 unit capsule 400 unit PO BID 05/23/20 11/16/20 History zolpidem 10 mg tablet 10 mg PO HS 05/23/20 11/16/20 History cyclobenzaprine 10 mg tablet 10 mg PO DAILY 05/28/20 11/16/20 History fluticasone propionate 50 2 spray INTRANASAL DAILY 05/28/20 11/16/20 History mcg/actuation nasal spray,suspension quetiapine 25 mg tablet 25 mg PO BID 05/28/20 11/16/20 History diphenhydramine HCl 25 mg capsule 25 mg PO Q6H PRN #0 cap 05/29/20 11/16/20 Rx (Benadryl) diphenhydramine-zinc acetate 2 1 applic EXT BID PRN #0 g 05/29/20 11/16/20 Rx %-0.1 % topical cream (Anti-Itch (diphenhydramine) with Zinc) famotidine 20 mg tablet 20 mg PO QAM #0 tab 05/29/20 11/16/20 Rx ibuprofen 600 mg tablet 600 mg PO UD #0 tab 05/29/20 11/16/20 Rx lisinopril 2.5 mg tablet 2.5 mg PO QAM #30 tab 05/29/20 11/16/20 Rx melatonin 3 mg tablet 3 mg PO HS PRN #0 tab 05/29/20 11/16/20 Rx oxycodone 5 mg tablet 5 mg PO Q8H PRN #30 tab 05/29/20 11/16/20 Rx aripiprazole 5 mg tablet 5 mg PO DAILY 11/16/20 11/16/20 History metoprolol succinate 25 mg 25 mg PO DAILY 11/16/20 11/16/20 History tablet,extended release 24 hr pantoprazole 40 mg tablet,delayed 40 mg PO DAILY 11/16/20 11/16/20 History release Past Med/Surg History Medical History (Updated 11/16/20 @ 15:41 by Kristen Lance PA-C) Anxiety Chronic back pain COPD (chronic obstructive pulmonary disease) Depression with anxiety HLD (hyperlipidemia) HTN (hypertension) Insomnia Insulin dependent type 2 diabetes mellitus Pericardial effusion Pneumonia Post laminectomy syndrome Primary cancer of left upper lobe of lung (10/02/16) "Development of left neck and arm swelling CT finding of impending superior vena caval syndrome, mediastinal mass and left upper lobe mass Status post anterior mediastinal endoscopy and biopsy [place] procedure 10/02/2016 Small cell carcinoma Emergent chemotherapy 10/10/2016 carboplatin and etoposide Excellent clinical response Status post completion of combined radiation and chemotherapy radiation completed 12/19/2016. He received 7000 cGy 12/24/2017 finding of brain metastasis 01/16/2018 status post completion of whole brain radiation therapy. He received 3000 cGy. On 10/17/16 10:30 Alexsandra Galvez wrote "Development of left neck and arm swelling CT finding of impending superior vena caval syndrome, mediastinal mass and left upper lobe mass Status post anterior mediastinal endoscopy and biopsy [place] procedure 10/02/2016 Small cell carcinoma Emergent chemotherapy 10/10/2016 carboplatin and etoposide Excellent clinical response Planned PET/CT 10/18/2016" On 10/17/16 10:22 Alexsandra Galvez wrote "Development of left neck and arm swelling CT finding of impending superior vena caval syndrome Status post anterior mediastinal endoscopy and biopsy [place] procedure 10/02/2016 Small cell carcinoma Emergent chemotherapy 10/10/2016 carboplatin and etoposide Excellent clinical response Planned PET/CT 10/18/2016" Surgical History (Updated 11/16/20 @ 14:29 by Kristen Lance PA-C) History of back surgery x4 History of hernia surgery Social History (Updated 11/16/20 @ 14:30 by Kristen Lance PA-C) Smoking Status: Former smoker Tobacco Type: Cigarettes packs per day: 1; Years Smoked: 16; Cigarettes Per Day: 20; Smoking End Date: 05/19/20; Hx Alcohol Use: No Hx Substance Use: No Preferred Language: Welsh Communication Ability: Effective Proposition Player Required: No Beliefs That Will Affect Care: None Current Living Situation: Alone Other Information That Helps Us Care for You: No Feels Safe at Home: Yes Safety Concerns: Feels Safe At This Time Assistive Devices: Cane Review of Systems Review of Systems: All systems reviewed & are unremarkable except as noted in HPI & below Physical Exam Physical Exam: Constitutional: WD, unkempt, male, vitals as above, NAD, sitting up in bed, pleasant, conversing easily Head: Normocephalic, Atraumatic Eyes: PERRL, conjunctivae normal, anicteric sclerae ENMT: external ear and nose normal, oropharynx normal Neck: trachea midline, no thyromegaly normal visual inspection Respiratory: normal respiratory effort, lungs clear to auscultation, no wheeze, rales, rhonchi. Normal insp/exp effort, no accessory muscle use Cardiovascular: RRR, no murmur, no edema Vessels: no JVD or carotid bruit Chest: normal inspection of chest Abdomen: normal bowel sounds, soft, nontender, no hepatosplenomegaly Musculoskeletal: no cyanosis or clubbing, moves extremities x4 Skin: Left great toe erythematous, edematous, serosanguineous drainage, dorsal aspect of left great toe with ischemic appearance, cap refill less than 2 seconds, erythema extending to dorsal aspect of left midfoot, no pain to palpation no rashes, warm and dry normal turgor Neurologic: PERRL, EOMI, accommodation nl, no face palsy, no dysarthria CN's II-XI intact bilaterally and moves all extremities Psychiatric: A+Ox3, euthymic affect Lymphatic: no cervical or axillary lymphadenopathy : deferred Results & Data Results & Data ([facility]) Vital Signs (Past 12 Hours) Vital Signs Temp Pulse Resp BP Pulse Ox 11/16/20 14:11 37 C 96 H 18 97 11/16/20 14:00 97 H 20 121/58 L 11/16/20 13:45 93 H 17 162/71 H 11/16/20 13:30 92 H 18 164/75 H 11/16/20 13:15 97 H 169/70 H 96 11/16/20 13:00 95 H 17 165/67 H 96 11/16/20 12:45 98 H 18 184/90 H 100 11/16/20 12:34 98 H 24 161/86 H 100 11/16/20 12:30 96 11/16/20 11:37 37 C 103 H 18 87/69 L 97 11/16/20 11:33 99 H 20 87/69 L Diagnostic Findings Chest X-Ray 11/16/20 11:43 SINGLE VIEW CHEST CLINICAL HISTORY: Sepsis. FINDINGS: An AP, portable, upright chest radiograph is compared to study dated 05/23/2020 and correlated with chest CT dated 05/24/2020. The examination is degraded by portable technique and patient rotation. The heart is mildly enlarged. The pulmonary vasculature is noncongested. Emphysema and chronic interstitial thickening is similar to previous. Borderline loss is again seen in the left lung with elevation of the left hemidiaphragm and fibrosis of the left upper lobe. The right lung appears clear. No large pleural effusion or pneumothorax is seen. The skeletal structures are osteopenic. The bony thorax is grossly intact. IMPRESSION: 1. No acute cardiopulmonary abnormality is identified. 2. Emphysema and chronic parenchymal changes as above. ACT 112: Negative or not required by law. Electronically signed by: Hero Fair M.D. 11/16/2020 12:47 PM Foot X-Ray 11/16/20 12:02 XR foot LT 2V CLINICAL HISTORY: 1-2 toe ? osteo. Left first toe swelling. COMPARISON STUDY: None. FINDINGS: No fracture or dislocation within the left foot. There is a plantar heel spur. Soft tissue swelling centered at the first MTP joint and base of the second toe. There is soft tissue gas along the lateral aspect of the first toe. There is 9 mm linear radiopaque foreign body seen along the plantar/medial soft tissues at the level of the head of the first metatarsal. There is also a 3 mm linear metallic foreign body seen at the plantar/medial soft tissues at the level the second metatarsal head. Additional scattered foci of superficial debris also seen along the plantar surface of the forefoot. IMPRESSION: 1. No cortical destruction to suggest osteomyelitis. 2. There is soft tissue swelling and soft tissue gas along the lateral aspect of the first toe. This is highly suspicious for an infection and could be due to a gas-forming organism. 2. There are 2 linear metallic foreign bodies seen within the plantar surface of the left foot at the level of the first and second metatarsal heads as described above. ACT 112: Negative or not required by law. Electronically signed by: Jace Ceballos M.D. 11/16/2020 1:19 PM Medications Administered Medication List Vancomycin HCl 2,750 mg/ (Sodium Chloride) 555 mls @ 200 mls/hr IV NOW ONE Stop: 11/16/20 14:49 Last Admin: 11/16/20 12:37 Dose: 200 mls/hr Documented by: [id number] Discontinued Medications Sodium Chloride (Nss 1000ml) 2,000 mls @ 999 mls/hr IV .Q2H1M ONE Stop: 11/16/20 13:43 Last Infusion: 11/16/20 14:08 Dose: 0 mls/hr Documented by: [id number] Admin: 11/16/20 12:05 Dose: 999 mls/hr Documented by: [id number] Cefepime HCl (Maxipime) 2,000 mg in 20 mls @ 5 mls/min IV NOW STA; Protocol Stop: 11/16/20 12:07 Last Admin: 11/16/20 12:26 Dose: 5 mls/min Documented by: [id number] Metronidazole (Flagyl) 500 mg in 100 mls @ 100 mls/hr IV NOW STA Stop: 11/16/20 13:03 Last Infusion: 11/16/20 13:33 Dose: 0 mls/hr Documented by: [id number] Admin: 11/16/20 12:24 Dose: 100 mls/hr Documented by: [id number] Insulin Human Regular (Novolin-R Insulin Per Unit Charge) 5 units IV NOW STA Stop: 11/16/20 13:27 Last Admin: 11/16/20 13:36 Dose: 3 units Documented by: [id number] Cosigned by: [id number] ECG Rate (beats per minute): 97 Rhythm: normal sinus COVID-19 Results Results COVID-19 Adm Lab Results: RBC 5.12 M/uL (4.7-6.1) 11/16/20 WBC 12.90 K/uL (4.8-10.8) H 11/16/20 Hgb 15.9 g/dL (14.0-18.0) 11/16/20 Hct 45.6 % (42-52) 11/16/20 Plt Count 239 K/uL (130-400) 11/16/20 Neutrophils (%) (Auto) 85.6 % 11/16/20 Lymphocytes (%) (Auto) 5.5 % 11/16/20 Monocytes # (Auto) 0.97 K/uL (0.11-0.59) H 11/16/20 Eosinophils # (Auto) 0.04 K/uL (0-0.5) 11/16/20 Immature Granulocyte % (Auto) 0.9 % 11/16/20 Neutrophils # (Auto) 11.05 K/uL (1.4-6.5) H 11/16/20 Lymphocytes # (Auto) 0.71 K/uL (1.2-3.4) L 11/16/20 Monocytes # (Auto) 0.97 K/uL (0.11-0.59) H 11/16/20 Eosinophils # (Auto) 0.04 K/uL (0-0.5) 11/16/20 Basophils # (Auto) 0.02 K/uL (0-0.2) 11/16/20 Immature Granulocyte # (Auto) 0.11 K/uL (0.00-0.02) H 11/16/20 Na 131 mmol/L (136-145) L 11/16/20 K 4.1 mmol/L (3.5-5.1) 11/16/20 Cl 96 mmol/L (98-107) L 11/16/20 CO2 20 mmol/L (21-32) L 11/16/20 Anion Gap 15.0 (3-11) H 11/16/20 BUN 17 mg/dl (7-18) 11/16/20 Creatinine 0.73 mg/dl (0.6-1.4) 11/16/20 BUN/Creatinine Ratio 22.7 (10-20) H 11/16/20 Glucose Level 343 mg/dl (70-99) H* 11/16/20 Ca 9.7 mg/dl (8.5-10.1) 11/16/20 Total Bilirubin 0.4 mg/dl (0.2-1) 11/16/20 AST/SGOT 30 U/L (15-37) 11/16/20 ALT/SGPT 17 U/L (12-78) 11/16/20 Alkaline Phosphatase 125 U/L (45-117) H 11/16/20 Total Protein 7.4 gm/dl (6.4-8.2) 11/16/20 Albumin 2.1 gm/dl (3.4-5.0) L 11/16/20 Globulin 5.3 gm/dl (2.5-4.0) H 11/16/20 Albumin/Globulin Ratio 0.4 (0.9-2) L 11/16/20 Troponin I < 0.015 ng/ml (0-0.045) 11/16/20 CRP 17.40 mg/dl (0-0.29) H 11/16/20 Procalcitonin 0.17 ng/ml (0-0.5) 11/16/20 PTT 25.3 Seconds (21.0-31.0) 11/16/20 INR 1.0 (0.9-1.1) 11/16/20 COVID-19 PCR NEGATIVE (Negative) 11/16/20 ABG pH 7.39 (7.35-7.45) 11/16/20 ABG pCO2 30 mmHg (35-46) L 11/16/20 ABG pO2 90 mmHg (80-95) 11/16/20 ABG HCO3 18 mmol/L (19-24) L 11/16/20 ABG O2 Saturation 96.9 % (90-95) H 11/16/20 ABG Base Excess -5.7 mEq/L (-9-1.8) 11/16/20 Chest X-Ray 11/16/20 Code Status & VTE Plan Code Status FULL CODE VTE Prophylaxis Plan VTE Prophylaxis will be ordered: Yes Supervising Physician Co-Signing Physician Notes 60-year-old male with PMH of T2DM on insulin, noncompliance, tobacco abuse, COPD, SCLC with brain mets, postlaminectomy syndrome, major depressive disorder, radiation pneumonitis, lumbar spinal stenosis presented to the ED 11/16 after noticing blood from his left foot. Per patient he noticed it when he woke up today. He does not remember noticing any wound in the left foot before. Point to be noted, patient's history seems to be unreliable most of the time. Similarly at one time he said he quit smoking 6 years ago and next moment he said 3 years ago. He said he does not feel any pain in his leg and while talking during the bedside exam, later he said he is feeling some pain in his left leg. He meets sepsis criteria secondary to leukocytosis and tachycardia on the background of left great toe infection and is being managed with Flagyl, Vanco and cefepime; MRI foot positive for cellulitis with abscess, likely could represent gas-forming infectious process. Orthopedics consulted. He also meets criteria for DKA, Is being managed by glycemic pharmacy with insulin infusion. Upon examination: GENERAL: Sitting up in bed, alert, ill-appearing, disheveled, unreliable history mostly. EYE EXAM: normal conjunctiva. OROPHARYNX: no exudate, no erythema, lips, buccal mucosa, and tongue normal and mucous membranes are moist NECK: supple, no nuchal rigidity, no adenopathy, non-tender LUNGS: Clear to auscultation. Normal chest wall mechanics HEART: no murmurs, S1 normal and S2 normal ABDOMEN: abdomen soft, non-tender, normo-active bowel sounds, no masses, no rebound or guarding. UPPER EXTREMITIES: upper extremities are grossly normal. LOWER EXTREMITIES: Swelling and redness over the left first and second toe. Blue appearing great toe. Capillary refill time less than 2 seconds. Erythema extending to dorsal aspect of left midfoot. Patient denies any pain or sensation in his bilateral lower extremities. NEURO EXAM: Absent sensation bilateral lower extremity mid thigh, cranial nerves II-XII grossly intact, normal speech, no gross weakness of arms, no gross weakness of legs. I have seen and examined the patient and have discussed the case with the provider above. I agree with the assessment and plan as stated.
[2020-11-16] MEDS ORDERED: POLYETHYLENE (MIRALAX) 17 GM PACK PO PRN (14:46)
[2020-11-16] MEDS ORDERED: MAGNESIUM HYDROXIDE SUSP 30 ML UDC PO PRN (14:46)
[2020-11-16] MEDS ORDERED: CARBOHYDRATES FOR HYPOGLYCEMIA PO PRN (14:46)
[2020-11-16] MEDS ORDERED: GLUCOSE 10 TABS/TUBE PO PRN (14:46)
[2020-11-16] MEDS ORDERED: GLUCOSE 40% GEL 15 GM TUBE PO PRN (14:46)
[2020-11-16] MEDS ORDERED: GLUCAGON FOR INJ 1 MG VIAL SQ PRN (14:46)
[2020-11-16] MEDS ORDERED: ALUMINUM/MAGNESIUM SUSP 30 ML UDC PO PRN (14:46)
[2020-11-16] MEDS ORDERED: CEFEPIME CONSULT ACTIVE PRN (14:46)
[2020-11-16] MEDS ORDERED: ONDANSETRON INJ 2 MG/ML 2 ML VIAL IV PRN (14:46)
[2020-11-16] MEDS ORDERED: DEXTROSE 50% 50 ML SYRINGE IV PRN (14:46)
[2020-11-16] MEDS ORDERED: INSULIN PROTOCOL GOAL RANGE ONE (15:08)
[2020-11-16] MEDS ORDERED: STAT IV Infusion **Titration per Protocol STA (15:08)
[2020-11-16] MEDS ORDERED: INSULIN HUMAN REGULAR PER UNIT 7 UNITS in SYRINGE 6.93 ML IV ONE (15:15)
[2020-11-16 15:22] LABS: Base Excess ABG -5.7 mEq/L (-9-1.8); HCO3 ABG 18 mmol/L (19-24); Oxygen Saturation ABG 96.9 % (90-95); PCO2 ABG 30 mmHg (35-46); PO2 ABG 90 mmHg (80-95); pH ABG 7.39 (7.35-7.45)
[2020-11-16 15:29] LABS: Allen Test Pos (Pos)
[2020-11-16] MEDS ORDERED: INSULIN REGULAR 250 UNITS in SODIUM CHLORIDE 0.9% 247.5 ML IV SCH (15:30)
[2020-11-16] MEDS: SODIUM CHLORIDE 0.9% 1000ML 1,000 ML IV SCH (15:52)
[2020-11-16] MEDS ORDERED: INSULIN HUMAN NPH SC ONE ×2 (16:00)
[2020-11-16] MEDS ORDERED: GADOBUTROL 65ML VIAL IV ONE (17:28)
[2020-11-16] MEDS: INSULIN HUMAN REGULAR SC SCH ×2 (17:57→20:35)
--- NOTE | 2020-11-16 18:02 | Magnetic Resonance Report ---
MR foot LT wo/w con CLINICAL HISTORY: Left foot wound. r/o osteomyelitis, gas forming organism COMPARISON STUDY: Left foot radiographs performed earlier today. TECHNIQUE: Utilizing a 1.5 Donita magnet and dedicated coil, multiplanar, multi echo imaging of the le ft foot was performed pre and postcontrast administration. Intravenous injection of 10 cc of Gadavist was uneventful. FINDINGS: Tarsometatarsal joints are intact. Note is made of several foci of susceptibility artifact adjacent to the left first and second metatarsals. These represent metallic foreign bodies better dep icted on radiographs performed earlier today. Artifact from these are foreign bodies compromises visu alization of the adjacent soft tissues. There is no marrow edema to suggest osteomyelitis. There is n o evidence for acute fracture. Note is made of multiple small T1 and T2 hypointense foci within the l eft forefoot, most evident between the first and second proximal phalanges. This represents soft tiss ue gas as shown on radiograph. There is extensive soft tissue edema within the left forefoot. An asso ciated fluid collection measuring 1.2 x 0.6 cm between the first and second metatarsals favors an abs cess. There is also fluid adjacent to the second and third metatarsals without significant peripheral enhancement. There is mild increased fluid within the left first metatarsophalangeal joint. IMPRESSION: 1. Extensive soft tissue edema within the left forefoot, most pronounced adjacent to the first, secon d and third metatarsals with an associated 1.2 cm fluid collection between the first and second metat arsals. The findings suggest cellulitis with an associated abscess. Associated soft tissue gas could be due to underlying wound or represent a gas-forming infectious process. Associated fluid extends al panfilo the flexor tendons. 2. No evidence for osteomyelitis. 3. Several foci of susceptibility artifact within the left forefoot which correspond to small metalli c foreign bodies, better depicted on radiographs. Artifact from the foreign bodies compromises visual ization of the adjacent soft tissues. ACT 112: Negative or not required by law. Electronically signed by: Thomas Hahn M.D. 11/16/2020 6:00 PM
[2020-11-16] MEDS: metroNIDAZOLE 500 MG/100 ML BAG IV SCH (20:17)
[2020-11-16] MEDS: VANCOMYCIN HCL 1,500 MG in SODIUM CHLORIDE 0.9% 500 ML IV SCH (21:31)
[2020-11-16] MEDS: ZOLPIDEM TARTRATE 10 MG TAB PO PRN (22:56)
[2020-11-16] MEDS ORDERED: CEFEPIME 2,000 MG in SYRINGE 0 ML IV SCH (23:00)
[2020-11-16 23:20] LABS: Appearance Urine Clear (Clear); Bacteria Urine Automated Negative (Negative); Bilirubin Urine Negative (Negative); Blood Urine Negative (Negative); Color Urine Yellow; Epithelial Cell Urine Auto 0-5 /lpf (0-5); Glucose Urine UA 3+ (Negative); Ketones Urine 4+ (Negative); Leukocyte Esterase Urine Trace (Negative); Nitrite Urine Positive (Negative); Protein Urine 1+ (Negative); RBC Urine Automated 0-4 /hpf (0-4); Urobilinogen Urine Negative (Negative); WBC Urine Automated >30 /hpf (0-5)
[2020-11-17] MEDS: SODIUM CHLORIDE 0.9% 1000ML 1,000 ML IV SCH ×3 (00:24→15:01)
[2020-11-17] MEDS: metroNIDAZOLE 500 MG/100 ML BAG IV SCH ×3 (04:07→20:19)
[2020-11-17] MEDS: ACETAMINOPHEN 325 MG TAB PO PRN ×2 (06:07→22:18)
[2020-11-17 07:18] LABS: Basophils # (auto) 0.01 K/uL (0-0.2); Basophils % (auto) 0.1 %; Eosinophils # (auto) 0.08 K/uL (0-0.5); Eosinophils % (auto) 0.8 %; Hematocrit (blood only) 37.4 % (42-52); Immature Granulocytes # (auto) 0.05 K/uL (0.00-0.02); Immature Granulocytes % (auto) 0.5 %; Lymphocytes # (auto) 0.68 K/uL (1.2-3.4); Mean Corpuscular Hemoglobin 30.4 pg (25-34); Mean Corpuscular Hgb Conc 34.8 g/dL (32-36); Mean Corpuscular Volume 87.4 fL (80-100); Mean Platelet Volume 10.8 fL (7.4-10.4); Monocytes # (auto) 0.94 K/uL (0.11-0.59); Monocytes % (auto) 9.7 %; Neutrophils # (auto) 7.95 K/uL (1.4-6.5); Neutrophils % (auto) 81.9 %; Platelet Count 206 K/uL (130-400); RDW Coefficient of Variation 14.1 % (11.5-14.5); RDW Standard Deviation 44.7 fL (36.4-46.3); Red Blood Count 4.28 M/uL (4.7-6.1); White Blood Count 9.71 K/uL (4.8-10.8)
[2020-11-17 07:44] LABS: Estimated Average Glucose 387 mg/dl; Hemoglobin A1C 15.1 % (4.5-5.6)
[2020-11-17 07:54] LABS: Alanine Aminotransferase 12 U/L (12-78); Albumin Globulin Ratio 0.4 (0.9-2); Albumin Level 1.5 gm/dl (3.4-5.0); Alkaline Phosphatase 85 U/L (45-117); Aspartate Aminotransferase 24 U/L (15-37); BUN Creatinine Ratio 38.6 (10-20); Bilirubin,Total 0.2 mg/dl (0.2-1); Blood Urea Nitrogen 12 mg/dl (7-18); Calcium 8.3 mg/dl (8.5-10.1); Carbon Dioxide 24 mmol/L (21-32); Chloride 106 mmol/L (98-107); Creatinine Clr Calc Pharmacy 339.1 ml/min; Est GFR (African American) > 150.0 ml/min; Est GFR (Non-African American) 143.5 ml/min; Globulin 3.8 gm/dl (2.5-4.0); Glucose 111 mg/dl (70-99); Potassium 3.1 mmol/L (3.5-5.1); Sodium 137 mmol/L (136-145); Total Protein 5.3 gm/dl (6.4-8.2)
[2020-11-17] MEDS ORDERED: INSULIN HUMAN NPH SC ONE ×2 (08:15→17:30)
[2020-11-17] MEDS: INSULIN HUMAN REGULAR SC SCH ×4 (08:22→21:03)
--- NOTE | 2020-11-17 09:03 | Pharmacy Report ---
Pharmacy Vanc AUC Short Note - Date of Service November 17, 2020 - Assessment & Plan Assessment 60 year old M receiving vancomycin, cefepime, and metronidazole for treatment of left great toe diabetic foot infection. 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 Day # 2 of antimicrobial therapy. Foot MRI shows no evidence for osteomyelitis, suggestive of cellulitis with associated abscess. Orthopedic surgery consulted. Blood and urine cultures ordered and pending. Plan Vancomycin * AUC/JEREMIAS is the preferred PK/PD target for vancomycin * AUC guided dosing is effective and associated with decreased risk of nephrotoxicity compared to traditional trough targets * Ordered dose of 1500 mg IV q12h is predicted to achieve target AUC/JEREMIAS of 400-600 mg/L.hr and may be associated with a 14 % risk of nephrotoxicity * Trough level ordered for: 11/18/20 Cefepime * 2 g IV q8h - using increased dose due to solid renal function and type of infection Metronidazole * 500 mg IV q8h - appropriate for added anaerobic coverage Pharmacy will continue to follow and will adjust dose/frequency as necessary. Thank you.
--- NOTE | 2020-11-17 09:12 | Pharmacy Report ---
Pharmacy Glycemic Short Note 2 - Date of Service November 17, 2020 - Glycemic Short BSG Results (Last 24 hours): 11/16/20 11/16/20 11/16/20 11:58 13:21 15:13 Glucose Cancelled POC Glucose 327 H* 293 H 11/16/20 11/16/20 11/16/20 16:13 17:54 18:58 Glucose POC Glucose 249 H 225 H 250 H 11/16/20 11/16/20 11/16/20 19:58 21:03 22:02 Glucose POC Glucose 193 H 250 H 235 H 11/16/20 11/16/20 11/17/20 23:01 Unknown 00:04 Glucose 343 H* POC Glucose 219 H 200 H 11/17/20 11/17/20 11/17/20 01:59 04:04 05:11 Glucose POC Glucose 190 H 132 H 135 H 11/17/20 11/17/20 11/17/20 06:03 06:51 08:18 Glucose 111 H POC Glucose 130 H 127 H OUTPATIENT ANTIDIABETIC REGIMEN: * Humulin R 35 units SC AC for BSG greater than 175 mg/dL * Patient has reportedly not been taking this for past 6 months * HbA1c: 15.1% (11/17/20) ASSESSMENT: * RK is a 60 year old male admitted on 11/16/20 for IV antibiotic treatment of diabetic foot infection of left great toe * Patient was hyperglycemic on presentation, BSG of 343 mg/dL, Anion gap of 15, and CO2 of 20, BHA of 53.75 * Of note, patient has reported allergies to Novolog (tolerates regular/NPH insulins) * Insulin infusion initiated on admission with dose of NPH * BSGs trended down nicely and labs much improved today (A, CO2: 24, BS mg/dL) * Insulin infusion now discontinued will manage with SC basal/bolus * Will plan on NPH BIDM and regular insulin ACHS * BSG of 302 mg/dL at lunch, discussed with RN - patient ate multiple breakfast trays/snacked throughout the morning * Will not overreact to this BSG PLAN FOR INPATIENT GLYCEMIC CONTROL: * Basal insulin * NPH 20 units SQ this morning * NPH scale this evening to provide 10-20 units SC with dinner (see EHR for details) * Bolus insulin * NovoLog per scale ACHS or Q6hrs while NPO * Goal Range: Low 110 mg/dL - High 140 mg/dL * Correction Factor: 25 mg/dL/unit * Nutritional / Prandial insulin per carb ratio of 1 unit per 8 grams CHO consumed PLAN FOR DISCHARGE: * HbA1c of 15.1% suggests very poor outpatient glycemic control * Patient would likely benefit from adjustment of previous insulin regimen to SC basal/bolus * Novolin 70/30 regular insulin may be good option for patient in terms of convenience * Will follow inpatient insulin needs and make recs accordingly
[2020-11-17] MEDS: VANCOMYCIN HCL 1,500 MG in SODIUM CHLORIDE 0.9% 500 ML IV SCH ×2 (09:19→22:44)
[2020-11-17] MEDS: CEFEPIME 2,000 MG in SYRINGE 0 ML IV SCH ×2 (09:19→17:42)
[2020-11-17] MEDS ORDERED: POTASSIUM CHLORIDE CRTAB 20 MEQ TABCR PO STA (12:01)
--- NOTE | 2020-11-17 14:51 | Orthopedic Consultation ---
Date of Consultation November 17, 2020 Assessment & Plan (1) Open wound of left great toe: Grossly infected left great toe with devascularization. Patient likely has neuropathy due to diabetes and spinal issues with diabetic foot infection. Patient has poorly controlled diabetes by history. Recommending obtaining vascular studies preop. Patient is going to require aggressive irrigation debridement and probable amputation of the great toe. Continue multiple intravenous antibiotics. Will discuss case with our foot and ankle specialist Dr. Tolliver who has experience in this type of surgical procedure to perform definitive procedure. History of Present Illness Reason for Consultation: Left foot infection Attending Physician: Darryn Houston MD History of Present Illness 60-year-old male hospitalized with left foot infection. Patient has multiple medical problems hypertension hyperlipidemia COPD tobacco abuse lung cancer with brain mets in remission lumbar spinal stenosis insulin-dependent diabetes history of 4 back surgeries depression anxiety. Patient said over the last 3 days developed infection in his foot. Denied walking barefoot. Allergies Allergy/AdvReac Type Severity Reaction Status Date / Time amoxicillin Allergy Intermediate sob Verified 11/16/20 13:49 atorvastatin Allergy Intermediate diarrhea Verified 11/16/20 13:49 acetaminophen Allergy Unknown PT STATES Verified 11/16/20 13:49 "IT INTENSIFIES EFFECT" clindamycin Allergy Unknown SHORTNESS Verified 11/16/20 13:49 OF BREATH escitalopram Allergy Unknown GI UPSET Verified 11/16/20 13:49 gabapentin Allergy Unknown CONSTIPATIO Verified 11/16/20 13:49 N insulin aspart Allergy Unknown ALLERGIC Verified 11/16/20 13:49 TO PRESERVATIVES IN NOVOLOG - OK WITH REGULAR/NPH morphine Allergy Unknown DID NOT Verified 11/16/20 13:49 TOLERATE PER PT propoxyphene Allergy Unknown "DID CRAZY Verified 11/16/20 13:49 THINGS" sitagliptin Allergy Unknown UNKNOWN RXN Verified 11/16/20 13:49 adhesive AdvReac Unknown "rips his Verified 11/16/20 13:49 skin off" dextromethorphan AdvReac Unknown HARD TO Verified 11/16/20 13:49 BREATHE? guaifenesin AdvReac Unknown HARD TO Verified 11/16/20 13:49 BREATHE? metformin AdvReac Unknown PT STATES Verified 11/16/20 13:49 "DID NOT WORK" Home Medications Medication Instructions Recorded Confirmed Type garlic 400 mg tablet,delayed 400 mg PO DAILY tab 01/01/18 11/16/20 History release phenylephrine HCl 0.25 % nasal 1 sprays INTNAS Q8H PRN 01/01/18 11/16/20 History spray (Reyes-Synephrine (phenylephrine)) rosuvastatin 5 mg tablet (Crestor) 20 mg PO DAILY 01/01/18 11/16/20 History Contour Next Test Strips (blood #800 ea NS 07/15/19 11/16/20 Rx sugar diagnostic) insulin regular human 100 unit/mL 35 units SQ QID #130 ml 07/15/19 11/16/20 Rx injection solution (Humulin R Regular U-100 Insulin) lancets 31 gauge #800 ea 07/15/19 11/16/20 Rx cholecalciferol (vitamin D3) 125 125 mcg PO DAILY 05/23/20 11/16/20 History mcg (5,000 unit) tablet diclofenac sodium 1 % topical gel 1 ea TOPICAL HS PRN 05/23/20 11/16/20 History lorazepam 0.5 mg tablet 0.5 mg PO .Q2-4H PRN 05/23/20 11/16/20 History magnesium oxide 500 mg tablet 250 mg PO DAILY 05/23/20 11/16/20 History vitamin E 400 unit capsule 400 unit PO BID 05/23/20 11/16/20 History zolpidem 10 mg tablet 10 mg PO HS 05/23/20 11/16/20 History cyclobenzaprine 10 mg tablet 10 mg PO DAILY 05/28/20 11/16/20 History fluticasone propionate 50 2 spray INTRANASAL DAILY 05/28/20 11/16/20 History mcg/actuation nasal spray,suspension quetiapine 25 mg tablet 25 mg PO BID 05/28/20 11/16/20 History diphenhydramine HCl 25 mg capsule 25 mg PO Q6H PRN #0 cap 05/29/20 11/16/20 Rx (Benadryl) diphenhydramine-zinc acetate 2 1 applic EXT BID PRN #0 g 05/29/20 11/16/20 Rx %-0.1 % topical cream (Anti-Itch (diphenhydramine) with Zinc) famotidine 20 mg tablet 20 mg PO QAM #0 tab 05/29/20 11/16/20 Rx ibuprofen 600 mg tablet 600 mg PO UD #0 tab 05/29/20 11/16/20 Rx lisinopril 2.5 mg tablet 2.5 mg PO QAM #30 tab 05/29/20 11/16/20 Rx melatonin 3 mg tablet 3 mg PO HS PRN #0 tab 05/29/20 11/16/20 Rx oxycodone 5 mg tablet 5 mg PO Q8H PRN #30 tab 05/29/20 11/16/20 Rx aripiprazole 5 mg tablet 5 mg PO DAILY 11/16/20 11/16/20 History metoprolol succinate 25 mg 25 mg PO DAILY 11/16/20 11/16/20 History tablet,extended release 24 hr pantoprazole 40 mg tablet,delayed 40 mg PO DAILY 11/16/20 11/16/20 History release Patient History Medical History Anxiety Chronic back pain COPD (chronic obstructive pulmonary disease) Depression with anxiety HLD (hyperlipidemia) HTN (hypertension) Insomnia Insulin dependent type 2 diabetes mellitus Pericardial effusion Pneumonia Post laminectomy syndrome Primary cancer of left upper lobe of lung (10/02/16) "Development of left neck and arm swelling CT finding of impending superior vena caval syndrome, mediastinal mass and left upper lobe mass Status post anterior mediastinal endoscopy and biopsy [place] procedure 10/02/2016 Small cell carcinoma Emergent chemotherapy 10/10/2016 carboplatin and etoposide Excellent clinical response Status post completion of combined radiation and chemotherapy radiation completed 12/19/2016. He received 7000 cGy 12/24/2017 finding of brain metastasis 01/16/2018 status post completion of whole brain radiation therapy. He received 3000 cGy. On 10/17/16 10:30 Alexsandra Galvez wrote "Development of left neck and arm swelling CT finding of impending superior vena caval syndrome, mediastinal mass and left upper lobe mass Status post anterior mediastinal endoscopy and biopsy [place] procedure 10/02/2016 Small cell carcinoma Emergent chemotherapy 10/10/2016 carboplatin and etoposide Excellent clinical response Planned PET/CT 10/18/2016" On 10/17/16 10:22 Alexsandra Galvez wrote "Development of left neck and arm swelling CT finding of impending superior vena caval syndrome Status post anterior mediastinal endoscopy and biopsy [place] procedure 10/02/2016 Small cell carcinoma Emergent chemotherapy 10/10/2016 carboplatin and etoposide Excellent clinical response Planned PET/CT 10/18/2016" Surgical History (Updated 11/16/20 @ 14:29 by Kristen Lance PA-C) History of back surgery x4 History of hernia surgery Social History (Updated 11/16/20 @ 14:30 by Kristen Lance PA-C) Smoking Status: Former smoker Tobacco Type: Cigarettes packs per day: 1; Years Smoked: 16; Cigarettes Per Day: 20; Smoking End Date: 05/19/20; Hx Alcohol Use: No Hx Substance Use: No Preferred Language: [place] Communication Ability: Effective Marketing Development Representative Required: No Beliefs That Will Affect Care: None Current Living Situation: Alone Other Information That Helps Us Care for You: No Feels Safe at Home: Yes Safety Concerns: Feels Safe At This Time Assistive Devices: None Review of Systems Review of Systems: Awake alert cannot feel his feet well. Physical Exam Physical Exam: Right foot with capillary refill intact pink and apparently perfused foot. Left foot he has gross necrosis of the skin and subcutaneous tissues of the dorsum of the great toe with the skin sloughing off the subcutaneous tissues. The toe has a purplish discoloration to it consistent with devascularization. There is a foul smell to it. The other toes are pink and foot is pink.. Results & Data ([facility]) Vital Signs (Past 12 Hours) Vital Signs Temp Pulse Pulse Resp BP Pulse Ox 11/17/20 12:35 36.9 C 106 H 18 109/69 97 11/17/20 08:21 36.6 C 106 H 19 101/63 94 11/17/20 07:00 20 94 11/17/20 03:49 36.9 C 93 H 16 111/70 94 11/17/20 02:59 96 H Laboratory Results ESR 119 CRP 17.4 Diagnostic Findings MRI suggests fluid in the dorsal aspect and webspace area great toe consistent with infection there is some air in the tissue. This could be related to gas-forming organisms. There is artifact that likely related to metallic loose bodies noted on plain films in the plantar aspect of the foot. Small areas of thin metallic object appear to be in the bottom of the foot. Underlying the great toe first metatarsal phalangeal joint area.
--- NOTE | 2020-11-17 15:15 | Hospitalist Progress Note ---
Date of Service November 17, 2020 Assessment & Plan (1) Sepsis: (2) Open wound of left great toe: (3) Insulin dependent type 2 diabetes mellitus: (4) DKA, type 2: (5) HTN (hypertension): (6) HLD (hyperlipidemia): (7) COPD (chronic obstructive pulmonary disease): (8) Insomnia: (9) Depression with anxiety: Plan: This is a 60-year-old male who has significant past medical history of insulin- dependent poorly controlled T2DM, HTN, HLD, COPD, tobacco abuse, history of small cell lung cancer with brain mets currently in remission per patient, history of radiation pneumonitis, lumbar spinal stenosis, postlaminectomy syndrome status post 4 back surgeries, depression with anxiety and insomnia who presents to ED secondary to left foot wound x2 days. Sepsis on admisson L great toe diabetic foot wound Diabetic Peripheral neuropathy MRI of the foot: Extensive soft tissue edema within the left forefoot, most pronounced adjacent to the first, second and third metatarsals with an associated 1.2 cm fluid collection between the first and second metatarsals. The findings suggest cellulitis with an associated abscess. Associated soft tissue gas could be due to underlying wound or represent a gas-forming infectious process. Associated fluid extends along the flexor tendons. Orthopedics have been consulted. Possible surgical intervention. Continue with vancomycin/cefepime and Flagyl. Blood cultures and urine cultures are pending. Wound care is on board. Will d/c IV fluids. Early developing DKA -resolved IDDM T2, poorly controlled with hyperglycemia noncompliant last a1c 10.0 07/2020, obtain a1c Glycemic management per pharmacy. HTN Patient prescribed lisinopril and metoprolol, although states not taking Hold in the setting of sepsis. Hyperlipidemia Prescribed Crestor, patient admits to not taking Last cholesterol panel on 08/11/2020 revealed triglyceride 370, total cholesterol 253, LDL 140, HDL 34 Hold for now Tobacco abuse COPD Declines nicotine patch on admission No acute exacerbation per previous documentation pt requiring home o2, pt currently declines History of small cell lung cancer with metastases to brain status post chemotherapy, radiation and WBRT Currently in remission per patient Depression with anxiety Insomnia Prescribed Abilify, Seroquel and Ambien Patient states only taking Ambien, continue Ambien for now DVT ppx: scd for now until determined if pt need surgical intervention Dispo: PCU PCP: Lizz, will need discussion with patient regarding compliance. Pt only taking ambien and insulin for some time. FULL CODE Admission and Anticipated Discharge Date Admission Date: November 16, 2020 Subjective Overall patient is doing okay. His primary complaint is discomfort in the right foot. Denies any nausea or vomiting. Denies any fever, chills or diaphoresis. Denies any chest pain, abdominal pain, diarrhea or dysuria. Review of Systems Review of Systems: All systems reviewed & are unremarkable except as noted in HPI & below Physical Exam Physical Exam: General: A&Ox3 HENT: NCAT, MMM, EOMI Eyes: PERRLA Neck: Supple, normal range of motion CVS: normal rate and rhythm Resp: b/l good breath sounds Abdomen: Soft, ND/NT, +BS Extremities: left foot dressing intact, great toe cyanotic appearing Neuro: face symmetric, no focal deficit Skin: warm and dry, no rashes/lesions/errythema MSK: normal ROM, no joint swelling/erythema Results & Data Results & Data ([facility]) Vital Signs (Past 12 Hours) Vital Signs Temp Pulse Resp BP Pulse Ox 11/17/20 12:35 36.9 C 106 H 18 109/69 97 11/17/20 08:21 36.6 C 106 H 19 101/63 94 11/17/20 07:00 20 94 11/17/20 03:49 36.9 C 93 H 16 111/70 94
--- NOTE | 2020-11-17 18:18 | Ultrasound Report ---
US arterial duplex LE LT HISTORY: 60 years-old Male great toe wound chronic wound of the left foot COMPARISON: MRI left foot 11/16/2020 TECHNIQUE: Lower extremity segmental pressures were obtained in addition to multiple real-time sonogr aphic images of the left lower extremity arterial structures assessing grayscale appearance, color an d spectral flow FINDINGS: SEGMENTAL PRESSURES: Right: Brachial-109 (index); dorsalis pedis-129 (1.18); posterior tibial-127 (1.17). NICOLE: 1.1 Left: Brachial-109 (index); dorsalis pedis-143 (1.31); posterior tibial-143 (1.31). NICOLE: 1.31 Triphasic waveforms within the common femoral, profunda femoris, superficial femoral and popliteal ar teries. Biphasic waveforms within the peroneal, anterior tibial, posterior tibial and dorsalis pedis arteries. Elevated peak systolic velocities within the dorsalis pedis artery measure up to 325 cm/s. No arterial occlusion. Mild subcutaneous edema. IMPRESSION: 1. No arterial occlusion. 2. Biphasic waveforms in the left calf arteries. 3. Elevated peak systolic velocities within the dorsalis pedis artery compatible with arterial stenos is. ACT 112: Negative or not required by law. The above report was generated using voice recognition software. It may contain grammatical, syntax o r spelling errors. Electronically signed by: Herb Hyde M.D. 11/17/2020 6:17 PM
[2020-11-17] MEDS: ZOLPIDEM TARTRATE 10 MG TAB PO PRN (21:03)
[2020-11-17] MEDS ORDERED: CALCIUM CARBONATE 500 MG CHEWABLE TAB PO PRN (22:02)
[2020-11-18] MEDS: INSULIN HUMAN REGULAR SC SCH ×6 (00:26→21:16)
[2020-11-18] MEDS: CEFEPIME 2,000 MG in SYRINGE 0 ML IV SCH ×3 (00:27→17:14)
[2020-11-18] MEDS ORDERED: KETOROLAC TROMETHAMINE 15 MG/ML VIAL IV ONE (00:29)
[2020-11-18] MEDS ORDERED: INSULIN HUMAN REGULAR SC SCH (01:30)
[2020-11-18] MEDS: ACETAMINOPHEN 325 MG TAB PO PRN ×2 (03:57→21:11)
[2020-11-18] MEDS: metroNIDAZOLE 500 MG/100 ML BAG IV SCH ×3 (03:58→20:28)
[2020-11-18] MEDS: INSULIN HUMAN NPH SC SCH ×2 (09:00→17:08)
[2020-11-18] MEDS ORDERED: VANCOMYCIN TROUGH ONE (09:30)
[2020-11-18 09:53] LABS: Basophils # (auto) 0.01 K/uL (0-0.2); Basophils % (auto) 0.1 %; Eosinophils # (auto) 0.04 K/uL (0-0.5); Eosinophils % (auto) 0.5 %; Hematocrit (blood only) 38.7 % (42-52); Hemoglobin 13.5 g/dL (14.0-18.0); Immature Granulocytes # (auto) 0.06 K/uL (0.00-0.02); Immature Granulocytes % (auto) 0.7 %; Lymphocytes # (auto) 0.48 K/uL (1.2-3.4); Lymphocytes % (auto) 5.5 %; Mean Corpuscular Hemoglobin 30.3 pg (25-34); Mean Corpuscular Hgb Conc 34.9 g/dL (32-36); Mean Platelet Volume 11.1 fL (7.4-10.4); Monocytes # (auto) 0.57 K/uL (0.11-0.59); Monocytes % (auto) 6.6 %; Neutrophils % (auto) 86.6 %; Platelet Count 185 K/uL (130-400); RDW Coefficient of Variation 14.2 % (11.5-14.5); RDW Standard Deviation 44.9 fL (36.4-46.3); Red Blood Count 4.45 M/uL (4.7-6.1); White Blood Count 8.66 K/uL (4.8-10.8)
--- NOTE | 2020-11-18 10:07 | Pharmacy Report ---
Pharmacy Glycemic Short Note 2 - Date of Service November 18, 2020 - Glycemic Short BSG Results (Last 24 hours): 11/17/20 11/17/20 11/17/20 11:46 16:33 20:42 POC Glucose 302 H* 210 H 325 H* 11/17/20 11/17/20 11/18/20 20:43 22:25 00:24 POC Glucose 357 H* 247 H 113 H 11/18/20 11/18/20 03:54 07:10 POC Glucose 85 172 H OUTPATIENT ANTIDIABETIC REGIMEN: * Humulin R 35 units SC AC for BSG greater than 175 mg/dL * Patient has reportedly not been taking this for past 6 months * HbA1c: 15.1% (11/17/20) ASSESSMENT: 11/18 * BSGs significantly elevated yesterday, likely in part due to uncovered snacking/additional meals * Ranging 130-325 mg/dL * Received 84 units of insulin yesterday (40 units of NPH and 44 units of prandial/correctional bolus) * Will increase to ~weight-based stress of 3 dosing today 11/17 * RK is a 60 year old male admitted on 11/16/20 for IV antibiotic treatment of diabetic foot infection of left great toe * Patient was hyperglycemic on presentation, BSG of 343 mg/dL, Anion gap of 15, and CO2 of 20, BHA of 53.75 * Of note, patient has reported allergies to Novolog (tolerates regular/NPH insulins) * Insulin infusion initiated on admission with dose of NPH * BSGs trended down nicely and labs much improved today (A, CO2: 24, BS mg/dL) * Insulin infusion now discontinued will manage with SC basal/bolus * Will plan on NPH BIDM and regular insulin ACHS * BSG of 302 mg/dL at lunch, discussed with RN - patient ate multiple breakfast trays/snacked throughout the morning * Will not overreact to this BSG PLAN FOR INPATIENT GLYCEMIC CONTROL: * Basal insulin - increase * NPH 25 units SC BIDM * Bolus insulin - tighten * Novolin-R per scale ACHS or Q6hrs while NPO * Goal Range: Low 110 mg/dL - High 140 mg/dL * Correction Factor: 15 mg/dL/unit * Nutritional / Prandial insulin per carb ratio of 1 unit per 5 grams CHO consumed PLAN FOR DISCHARGE: * HbA1c of 15.1% suggests very poor outpatient glycemic control * Patient would likely benefit from adjustment of previous insulin regimen to SC basal/bolus * Novolin 70/30 regular insulin may be good option for patient in terms of convenience * At this point, reasonable to discharge with Novolin 70/30: 40 units SC BIDM
[2020-11-18 10:16] LABS: Creatinine Clr Calc Pharmacy 208.2 ml/min; Est GFR (African American) 136.2 ml/min; Est GFR (Non-African American) 117.5 ml/min
[2020-11-18] MEDS: VANCOMYCIN HCL 1,500 MG in SODIUM CHLORIDE 0.9% 500 ML IV SCH ×2 (11:09→17:14)
--- NOTE | 2020-11-18 11:14 | Pharmacy Report ---
Pharmacy Vanc AUC Short Note - Date of Service November 18, 2020 - Assessment & Plan Assessment 60 year old M receiving vancomycin, cefepime, and metronidazole for treatment of diabetic foot wound involving left great toe . Culture negative so far, left great toe culture obtained today. Renal function stable. Day # 3 of antimicrobial therapy. Plan Vancomycin * AUC/JEREMIAS is the preferred PK/PD target for vancomycin * AUC guided dosing is effective and associated with decreased risk of nephrotoxicity compared to traditional trough targets * Previous dose of 1500 mg IV q12h * Trough level of 7.2 mcg/mL - unlikely to produce AUC/JEREMIAS > 400 * Will change to 1500 mg IV every 8 hours, which is now predicted to achieve target AUC/JEREMIAS of 400-600 mg/L.hr and may be associated with a 12 % risk of nephrotoxicity * Repeat trough as needed Cefepime * 2 g IV q8h remains appropriate Metronidazole * 500 mg IV q8h remains appropriate Pharmacy will continue to follow and will adjust dose/frequency as necessary. Thank you.
[2020-11-18 12:50] LABS: BUN Creatinine Ratio 21.3 (10-20); Calcium 8.6 mg/dl (8.5-10.1); Creatinine Clr Calc Pharmacy 208.2 ml/min; Est GFR (African American) 136.2 ml/min; Est GFR (Non-African American) 117.5 ml/min; Potassium 3.5 mmol/L (3.5-5.1)
[2020-11-18 13:10] LABS: Beta-Hydroxybutyrate 3.67 mg/dl (0.2-2.81)
[2020-11-18] MEDS ORDERED: oxyCODONE HCL IR 5 MG TAB (IMMEDIATE RELEASE) PO STA (14:27)
--- NOTE | 2020-11-18 14:29 | Hospitalist Progress Note ---
Date of Service November 18, 2020 Assessment & Plan (1) Sepsis: (2) Open wound of left great toe: (3) Insulin dependent type 2 diabetes mellitus: (4) DKA, type 2: (5) HTN (hypertension): (6) HLD (hyperlipidemia): (7) COPD (chronic obstructive pulmonary disease): (8) Insomnia: (9) Depression with anxiety: Plan: This is a 60-year-old male who has significant past medical history of insulin- dependent poorly controlled T2DM, HTN, HLD, COPD, tobacco abuse, history of small cell lung cancer with brain mets currently in remission per patient, history of radiation pneumonitis, lumbar spinal stenosis, postlaminectomy syndrome status post 4 back surgeries, depression with anxiety and insomnia who presents to ED secondary to left foot wound x2 days. Sepsis on admisson L great toe diabetic foot wound Diabetic Peripheral neuropathy MRI of the foot: Extensive soft tissue edema within the left forefoot, most pronounced adjacent to the first, second and third metatarsals with an associated 1.2 cm fluid collection between the first and second metatarsals. The findings suggest cellulitis with an associated abscess. Associated soft tissue gas could be due to underlying wound or represent a gas-forming infectious process. Associated fluid extends along the flexor tendons. Orthopedics have been consulted. Possible surgical intervention. Continue with vancomycin/cefepime and Flagyl. Blood cultures and urine cultures negative thus far. Wound care has been consulted. Early developing DKA -resolved IDDM T2, poorly controlled with hyperglycemia noncompliant last a1c 10.0 07/2020, obtain a1c Glycemic management per pharmacy. HTN Patient prescribed lisinopril and metoprolol, although states not taking Hold in the setting of sepsis. Hyperlipidemia Prescribed Crestor, patient admits to not taking Last cholesterol panel on 08/11/2020 revealed triglyceride 370, total cholesterol 253, LDL 140, HDL 34 Hold for now Tobacco abuse COPD Declines nicotine patch on admission. No acute exacerbation. Per previous documentation pt requiring home o2, pt currently declines. History of small cell lung cancer with metastases to brain status post chemotherapy, radiation and WBRT Currently in remission per patient Depression with anxiety Insomnia Prescribed Abilify, Seroquel and Ambien Patient states only taking Ambien, continue Ambien for now DVT ppx: scd for now until determined if pt need surgical intervention Dispo: PCU PCP: Lizz, will need discussion with patient regarding compliance. Pt only taking ambien and insulin for some time. FULL CODE Admission and Anticipated Discharge Date Admission Date: November 16, 2020 Subjective Patient is doing okay this morning. Denies any chest pain, shortness of breath, abdominal pain, diarrhea, dysuria, nausea or any vomiting. Does report some discomfort in the left foot. Review of Systems Review of Systems: All systems reviewed & are unremarkable except as noted in HPI & below Physical Exam Physical Exam: General: A&Ox3 HENT: NCAT, MMM, EOMI Eyes: PERRLA Neck: Supple, normal range of motion CVS: normal rate and rhythm Resp: b/l good breath sounds Abdomen: Soft, ND/NT, +BS Extremities: left foot dressing intact, great toe cyanotic appearing Neuro: face symmetric, no focal deficit Skin: warm and dry, no rashes/lesions/errythema MSK: normal ROM, no joint swelling/erythema Results & Data Results & Data ([facility]) Vital Signs (Past 12 Hours) Vital Signs Temp Pulse Pulse Resp BP Pulse Ox 11/18/20 10:52 19 94 11/18/20 10:46 36.3 C L 111 H 19 102/65 94 11/18/20 07:54 96 H 11/18/20 07:39 36.6 C 96 H 19 102/67 95 11/18/20 07:00 19 95 11/18/20 04:13 36.7 C 91 H 20 104/69 95 11/18/20 03:00 14 95
--- NOTE | 2020-11-18 19:27 | Anesthesiology Consultation ---
Date of Service November 18, 2020 Assessment & Plan Chart Review Chart Review: Acceptable Risk for Surgery Consults Requested none History Surgery Operation Date: 11/19/20 14:10 Proposed Procedures p Left Great Toe Amputation, Evacutaion Abscess Forefoot - Frank Tolliver DO Height/Weight Height: 6 ft 4 in Weight: 107.4 kg Allergies Allergy/AdvReac Type Severity Reaction Status Date / Time amoxicillin Allergy Intermediate sob Verified 11/16/20 13:49 atorvastatin Allergy Intermediate diarrhea Verified 11/16/20 13:49 acetaminophen Allergy Unknown PT STATES Verified 11/16/20 13:49 "IT INTENSIFIES EFFECT" clindamycin Allergy Unknown SHORTNESS Verified 11/16/20 13:49 OF BREATH escitalopram Allergy Unknown GI UPSET Verified 11/16/20 13:49 gabapentin Allergy Unknown CONSTIPATIO Verified 11/16/20 13:49 N insulin aspart Allergy Unknown ALLERGIC Verified 11/16/20 13:49 TO PRESERVATIVES IN NOVOLOG - OK WITH REGULAR/NPH morphine Allergy Unknown DID NOT Verified 11/16/20 13:49 TOLERATE PER PT propoxyphene Allergy Unknown "DID CRAZY Verified 11/16/20 13:49 THINGS" sitagliptin Allergy Unknown UNKNOWN RXN Verified 11/16/20 13:49 adhesive AdvReac Unknown "rips his Verified 11/16/20 13:49 skin off" dextromethorphan AdvReac Unknown HARD TO Verified 11/16/20 13:49 BREATHE? guaifenesin AdvReac Unknown HARD TO Verified 11/16/20 13:49 BREATHE? metformin AdvReac Unknown PT STATES Verified 11/16/20 13:49 "DID NOT WORK" Medications Home Medications Medication Instructions Recorded Confirmed Last Taken garlic 400 mg tablet,delayed 400 mg PO DAILY tab 01/01/18 11/16/20 Unknown release phenylephrine HCl 0.25 % nasal 1 sprays INTNAS Q8H PRN 01/01/18 11/16/20 Unknown spray (Reyes-Synephrine (phenylephrine)) rosuvastatin 5 mg tablet (Crestor) 20 mg PO DAILY 01/01/18 11/16/20 Unknown Contour Next Test Strips (blood #800 ea NS 07/15/19 11/16/20 Unknown sugar diagnostic) insulin regular human 100 unit/mL 35 units SQ QID #130 ml 07/15/19 11/16/20 05/23/20 injection solution (Humulin R Regular U-100 Insulin) lancets 31 gauge #800 ea 07/15/19 11/16/20 Unknown cholecalciferol (vitamin D3) 125 125 mcg PO DAILY 05/23/20 11/16/20 Unknown mcg (5,000 unit) tablet diclofenac sodium 1 % topical gel 1 ea TOPICAL HS PRN 05/23/20 11/16/20 Unknown lorazepam 0.5 mg tablet 0.5 mg PO .Q2-4H PRN 05/23/20 11/16/20 Unknown magnesium oxide 500 mg tablet 250 mg PO DAILY 05/23/20 11/16/20 Unknown vitamin E 400 unit capsule 400 unit PO BID 05/23/20 11/16/20 Unknown zolpidem 10 mg tablet 10 mg PO HS 05/23/20 11/16/20 Unknown cyclobenzaprine 10 mg tablet 10 mg PO DAILY 05/28/20 11/16/20 Unknown fluticasone propionate 50 2 spray INTRANASAL DAILY 05/28/20 11/16/20 Unknown mcg/actuation nasal spray,suspension quetiapine 25 mg tablet 25 mg PO BID 05/28/20 11/16/20 Unknown diphenhydramine HCl 25 mg capsule 25 mg PO Q6H PRN #0 cap 05/29/20 11/16/20 Unknown (Benadryl) diphenhydramine-zinc acetate 2 1 applic EXT BID PRN #0 g 05/29/20 11/16/20 Unknown %-0.1 % topical cream (Anti-Itch (diphenhydramine) with Zinc) famotidine 20 mg tablet 20 mg PO QAM #0 tab 05/29/20 11/16/20 Unknown ibuprofen 600 mg tablet 600 mg PO UD #0 tab 05/29/20 11/16/20 Unknown lisinopril 2.5 mg tablet 2.5 mg PO QAM #30 tab 05/29/20 11/16/20 Unknown melatonin 3 mg tablet 3 mg PO HS PRN #0 tab 05/29/20 11/16/20 Unknown oxycodone 5 mg tablet 5 mg PO Q8H PRN #30 tab 05/29/20 11/16/20 Unknown aripiprazole 5 mg tablet 5 mg PO DAILY 11/16/20 11/16/20 Unknown metoprolol succinate 25 mg 25 mg PO DAILY 11/16/20 11/16/20 Unknown tablet,extended release 24 hr pantoprazole 40 mg tablet,delayed 40 mg PO DAILY 11/16/20 11/16/20 Unknown release Active Medications Generic Name Dose Route Start Last Admin Trade Name Jairo PRN Reason Stop Dose Admin Acetaminophen 650 mg 11/16/20 14:46 11/18/20 03:57 Acetaminophen 325 Mg Tab PO 12/16/20 14:45 650 mg Q4H PRN Administration Pain or Fever Al Hydrox/Mg Hydrox/Simethicone 15 ml 11/16/20 14:46 11/18/20 03:56 Aluminum/Magnesium Susp 30 Ml Udc PO 12/16/20 14:45 15 ml Q4H PRN Administration Dyspepsia Calcium Carbonate 500 mg 11/17/20 22:02 11/17/20 22:43 Calcium Carbonate 500 Mg Chewable Tab PO 12/17/20 22:01 500 mg Q6H PRN Administration Heartburn Metronidazole 500 mg in 100 mls @ 100 mls/hr 11/16/20 20:00 11/18/20 13:24 Flagyl IV 11/23/20 19:59 Infused Q8H [facility] Infusion Cefepime HCl 2,000 mg/ Syringe 20 mls @ 5 mls/min 11/17/20 09:00 11/18/20 17:14 IV 11/24/20 08:59 5 mls/min Q8H [facility] Administration Protocol Vancomycin HCl 1,500 mg/ 530 mls @ 200 mls/hr 11/18/20 18:00 11/18/20 17:14 Sodium Chloride IV 11/25/20 17:59 200 mls/hr Q8H [facility] Administration Protocol Insulin Human NPH 25 units 11/18/20 08:00 11/18/20 17:08 Insulin Human Nph SC 12/18/20 07:59 25 units BIDM [facility] Administration Insulin Human Regular 0 units 11/17/20 11:30 11/18/20 17:05 Insulin Human Regular SC 12/17/20 11:29 17 units ACHS [facility] Administration Zolpidem Tartrate 10 mg 11/16/20 21:27 11/17/20 21:03 Zolpidem Tartrate 10 Mg Tab PO 12/17/20 20:59 10 mg HS PRN Administration Insomnia Past Medical History Medical History Anxiety Chronic back pain COPD (chronic obstructive pulmonary disease) Depression with anxiety HLD (hyperlipidemia) HTN (hypertension) Insomnia Insulin dependent type 2 diabetes mellitus Pericardial effusion Pneumonia Post laminectomy syndrome Primary cancer of left upper lobe of lung (10/02/16) "Development of left neck and arm swelling CT finding of impending superior vena caval syndrome, mediastinal mass and left upper lobe mass Status post anterior mediastinal endoscopy and biopsy Hardin procedure 10/02/2016 Small cell carcinoma Emergent chemotherapy 10/10/2016 carboplatin and etoposide Excellent clinical response Status post completion of combined radiation and chemotherapy radiation completed 12/19/2016. He received 7000 cGy 12/24/2017 finding of brain metastasis 01/16/2018 status post completion of whole brain radiation therapy. He received 3000 cGy. On 10/17/16 10:30 Alexsandra Galvez wrote "Development of left neck and arm swelling CT finding of impending superior vena caval syndrome, mediastinal mass and left upper lobe mass Status post anterior mediastinal endoscopy and biopsy Hardin procedure 10/02/2016 Small cell carcinoma Emergent chemotherapy 10/10/2016 carboplatin and etoposide Excellent clinical response Planned PET/CT 10/18/2016" On 10/17/16 10:22 Alexsandra Galvez wrote "Development of left neck and arm swelling CT finding of impending superior vena caval syndrome Status post anterior mediastinal endoscopy and biopsy Hardin procedure 10/02/2016 Small cell carcinoma Emergent chemotherapy 10/10/2016 carboplatin and etoposide Excellent clinical response Planned PET/CT 10/18/2016" Past Surgical History Surgical History (Updated 11/16/20 @ 14:29 by Kristen Lance PA-C) History of back surgery x4 History of hernia surgery Social History Smoking Status: Former smoker Smoking cigarettes per day: 20 Smoking End Date: 05/19/20 Hx Alcohol Use: No Hx Substance Use: No Physical Exam Vital Signs Last Vital Signs Temp 37.0 C 11/18/20 15:37 Pulse 116 H 11/18/20 15:37 Resp 21 11/18/20 15:37 BP 103/61 11/18/20 15:37 Pulse Ox 93 11/18/20 15:37 Testing Laboratory Results 11/18/20 09:38 11/18/20 09:43 PT 9.7 Seconds (9.0-12.0) 11/16/20 12:06 INR 1.0 (0.9-1.1) 11/16/20 12:06 APTT 25.3 Seconds (21.0-31.0) 11/16/20 12:06 Hemoglobin A1c 15.1 % (4.5-5.6) H 11/17/20 06:51 Urine Color Yellow 11/16/20 22:52 Urine Appearance Clear (Clear) 11/16/20 22:52 Urine pH 6.0 (4.5-7.5) 11/16/20 22:52 Ur Specific [place] 1.030 (1.000-1.030) 11/16/20 22:52 Urine Protein 1+ (Negative) H 11/16/20 22:52 Urine Glucose (UA) 3+ (Negative) H 11/16/20 22:52 Urine Ketones 4+ (Negative) H 11/16/20 22:52 Urine Nitrite Positive (Negative) A 11/16/20 22:52 Ur Leukocyte Esterase Trace (Negative) H 11/16/20 22:52 Urine WBC (Auto) >30 /hpf (0-5) H 11/16/20 22:52 Urine RBC (Auto) 0-4 /hpf (0-4) 11/16/20 22:52 U Hyaline Cast (Auto) 1-5 /lpf (0-5) 11/16/20 22:52 U Epithel Cells (Auto) 0-5 /lpf (0-5) 11/16/20 22:52 Urine Bacteria (Auto) Negative (Negative) 11/16/20 22:52 11/18/20 10:00 Gram Stain - Final Toe,Left Great 11/16/20 22:52 Urine Culture - Preliminary Urine,Clean Catch No growth - Less than 1,000 colonies/mL, Final report to follow. 11/16/20 11:58 Aerobic Blood Culture - Preliminary Blood No growth in Aerobic bottle after 48 hours. Anaerobic Blood Culture - Preliminary No growth in Anaerobic bottle after 48 hours. 11/16/20 12:10 Aerobic Blood Culture - Preliminary Blood No growth in Aerobic bottle after 48 hours. Anaerobic Blood Culture - Preliminary No growth in Anaerobic bottle after 48 hours. 11/18/20 11/18/20 11/18/20 16:31 11:21 07:10 POC Glucose 166 H 318 H* 172 H
[2020-11-18] MEDS: IBUPROFEN 200 MG TAB PO PRN (21:11)
[2020-11-18] MEDS: ZOLPIDEM TARTRATE 10 MG TAB PO PRN (22:37)
[2020-11-19] MEDS: CEFEPIME 2,000 MG in SYRINGE 0 ML IV SCH ×3 (00:57→17:16)
[2020-11-19] MEDS ORDERED: INSULIN HUMAN REGULAR SC SCH (01:30)
[2020-11-19] MEDS: VANCOMYCIN HCL 1,500 MG in SODIUM CHLORIDE 0.9% 500 ML IV SCH ×4 (02:01→17:24)
[2020-11-19] MEDS: IBUPROFEN 200 MG TAB PO PRN (04:44)
[2020-11-19] MEDS: metroNIDAZOLE 500 MG/100 ML BAG IV SCH ×3 (04:45→20:20)
[2020-11-19] MEDS: ACETAMINOPHEN 325 MG TAB PO PRN ×3 (08:15→23:06)
[2020-11-19] MEDS: INSULIN HUMAN REGULAR SC SCH ×4 (08:19→20:27)
[2020-11-19 08:22] LABS: Creatinine Clr Calc Pharmacy 278.1 ml/min; Est GFR (African American) > 150.0 ml/min; Est GFR (Non-African American) 132.3 ml/min
[2020-11-19] MEDS: INSULIN HUMAN NPH SC SCH ×2 (08:22→17:16)
--- NOTE | 2020-11-19 09:50 | Pharmacy Report ---
Pharmacy Glycemic Short Note 2 - Date of Service November 19, 2020 - Glycemic Short BSG Results (Last 24 hours): 11/18/20 11/18/20 11/18/20 09:43 11:21 16:31 Glucose 347 H* POC Glucose 318 H* 166 H 11/18/20 11/19/20 11/19/20 20:36 01:26 07:12 Glucose POC Glucose 255 H 168 H 116 H OUTPATIENT ANTIDIABETIC REGIMEN: * Humulin R 35 units SC AC for BSG greater than 175 mg/dL * Patient has reportedly not been taking this for past 6 months * HbA1c: 15.1% (11/17/20) ASSESSMENT: 11/19 * BSGs yesterday of 172, 318, 166, and 255 mg/dL, fasting BSG of 116 mg/dL this morning * Lunch BSG likely result of excess of 100 g of carbs with breakfast * Received 120 units of insulin (50 units of NPH, 70 units of regular) * Novolog further tightened last evening and will continue * Continue NPH 25 units BIDM 11/17 * RK is a 60 year old male admitted on 11/16/20 for IV antibiotic treatment of diabetic foot infection of left great toe * Patient was hyperglycemic on presentation, BSG of 343 mg/dL, Anion gap of 15, and CO2 of 20, BHA of 53.75 * Of note, patient has reported allergies to Novolog (tolerates regular/NPH insulins) * Insulin infusion initiated on admission with dose of NPH * BSGs trended down nicely and labs much improved today (A, CO2: 24, BS mg/dL) * Insulin infusion now discontinued will manage with SC basal/bolus * Will plan on NPH BIDM and regular insulin ACHS * BSG of 302 mg/dL at lunch, discussed with RN - patient ate multiple breakfast trays/snacked throughout the morning * Will not overreact to this BSG PLAN FOR INPATIENT GLYCEMIC CONTROL: * Basal insulin - continue * NPH 25 units SC BIDM * Bolus insulin - tighten * Novolin-R per scale ACHS or Q6hrs while NPO * Goal Range: Low 110 mg/dL - High 140 mg/dL * Correction Factor: 12 mg/dL/unit * Nutritional / Prandial insulin per carb ratio of 1 unit per 4 grams CHO consumed PLAN FOR DISCHARGE: * HbA1c of 15.1% suggests very poor outpatient glycemic control * Patient would likely benefit from adjustment of previous insulin regimen to SC basal/bolus * Novolin 70/30 regular insulin may be good option for patient in terms of convenience * At this point, reasonable to discharge with Novolin 70/30: 45 units SC BIDM * Will require timely outpatient follow-up for further insulin dose titration * Support Patient Self-Management * Healthy Lifestyle (diet, exercise, and smoking cessation) * Disease self-management (SMBG) * Prevention of complications (BP, Lipid goals, Immunizations) * Consider outpatient Diabetes Self-Management Education & Support * Most patients on multiple-dose insulin (MDI) should SMBG * Prior to meals and snacks * At bedtime * Prior to exercise * When they suspect low blood glucose * After treating low blood glucose until they are normoglycemic * Prior to critical tasks such as driving * Occasionally postprandially
[2020-11-19] MEDS ORDERED: LIDOCAINE 2% 2 ML VIAL/AMP(20MG/ML) INFIL ONE (10:02)
[2020-11-19] MEDS ORDERED: MIDAZOLAM HCL 1 MG/ML 2ML VIAL ONE (10:02)
[2020-11-19] MEDS ORDERED: ONDANSETRON INJ 2 MG/ML 2 ML VIAL ONE (10:02)
[2020-11-19] MEDS ORDERED: fentaNYL citrate 100 MCG/2 ML VIAL ONE (10:02)
[2020-11-19] MEDS ORDERED: PROPOFOL IV EMULSION 10 MG/ML 20 ML VIAL IV ONE (10:02)
--- NOTE | 2020-11-19 15:28 | Electrocardiogram Report ---
Test Reason : Blood Pressure : / mmHG Vent. Rate : 097 BPM Atrial Rate : 097 BPM P-R Int : 128 ms QRS Dur : 080 ms QT Int : 372 ms P-R-T Axes : 062 -22 088 degrees QTc Int : 472 ms Poor data quality, interpretation may be adversely affected Normal sinus rhythm Possible Left atrial enlargement Low voltage QRS Inferior infarct , age undetermined Abnormal ECG When compared with ECG of 23-MAY-2020 17:38, No significant change was found Confirmed by Jose Flowers ([id number]) on 11/19/2020 3:28:33 PM Referred By: Confirmed By:Jose Flowers
--- NOTE | 2020-11-19 15:50 | Orthopedic Progress Note ---
Date of Service November 19, 2020 Assessment & Plan (1) Skin ulcer of left great toe with necrosis of bone: Plan: The physical exam and diagnosis were discussed with the patient. He had been set up for surgery today however the patient a breakfast and lunch. The patient will be scheduled for a left great toe amputation, possible first metatarsal head amputation, possible second toe amputation. We also discussed the possible peripheral vascular disease within the lesser toes and at some time he may need to have another procedure, possibly of a transmetatarsal amputation. All potential risks, benefits, complications, alternatives, and rehab have been discussed with the patient and he wishes to proceed. Order for n.p.o. status after midnight tonight was placed. Surgical consent was placed on the front of his chart for Dr. Tolliver to sign with the patient prior to surgery. (2) Osteomyelitis of great toe of left foot: Admission and Anticipated Discharge Date Admission Date: November 16, 2020 Subjective No new complaints today. The patient was sitting on the side of his bed eating lunch at the time of the visit. He states he was told there was nothing wrong with his toe and he would not require surgery. He states he is currently on IV antibiotics for treating the toe. Physical Exam Constitutional: well developed, well nourished and + disheveled; no acute distress Musculoskeletal: Left foot: There is obvious necrosis of the entire great toe with a dark purple color. There is an ulceration at the base of the great toe on the dorsal aspect of the foot with moderate serosanguineous drainage. The wound is malodorous. There is mild erythema surrounding the base of the great toe near the area of the first metatarsal head. There is a slight discoloration of the second toe with a mild purplish color. The third, fourth, fifth toes have a slow cap refill but are intact. Neurologic: + abnormal touch/pain/proprioception (Decrease sensation of the left foot) Psychiatric: Orientation: alert and oriented x 3 Insight: + limited insight (See additional comments) The patient states he had eaten lunch because he was told there was nothing wrong with his toe. He would like to know if there is any way the toe could be saved. Results & Data ([facility]) Vital Signs (Past 12 Hours) Vital Signs Temp Pulse Pulse Resp BP Pulse Ox 11/19/20 15:19 36.7 C 104 H 20 115/73 92 11/19/20 11:47 36.7 C 89 19 97/63 L 93 11/19/20 08:00 90 11/19/20 07:53 36.6 C 88 20 107/74 92
--- NOTE | 2020-11-19 16:40 | Hospitalist Progress Note ---
Date of Service November 19, 2020 Assessment & Plan (1) Sepsis: Plan: resuscitated (2) Diabetic foot ulcer with osteomyelitis: Plan: He continues on broad-spectrum antibiotics with an improvement clinically. Per orthopedics he will be scheduled for a left great toe amputation and possible first metatarsal head amputation and possible second toe amputation tomorrow. Long-term antibiotics will likely be required in the setting of osteomyelitis. We will consult infectious disease to guide this therapy. (3) Insulin dependent type 2 diabetes mellitus: Plan: Uncontrolled with complications of peripheral neuropathy. A1C>15. Pharmacy for management of insulin during this admission. Cont to improve insulin management at time of discharge to promote good wound healing and overall health. (4) Diabetic peripheral neuropathy: Plan: cont to optimize glycemic control and continue good foot and wound care. Post op follow-up with the wound care center will likely be needed at discharge. (5) HLD (hyperlipidemia): Plan: reportedly taking Crestor at home, however, patient was initially unsure of this and reported noncompliance with multiple medications. Will need to review chart and discuss options with patient again tomorrow. In favor of restarting this now. (6) COPD (chronic obstructive pulmonary disease): Plan: chronic, not in exacerbation, smoking cessation recommended. (7) Insomnia: Plan: ambien per home regimen. (8) Depression with anxiety: Plan: Home meds listed include Abilify, quetiapine 25 mg p.o. twice daily. These have been held since admission, will confirm with patient and outpatient record that he is taking these prior to resuming. (9) Smoking: Plan: Cessation recommended (10) DVT prophylaxis: Plan: SCDs in setting of procedure planned within 24 hours Full Code Dispo-uncertain, may need SNF post operatively as patient lives alone. Ruby Rodriguez DO [facility] Admission and Anticipated Discharge Date Admission Date: November 16, 2020 Subjective Patient is a 60-year-old poorly controlled diabetic with ongoing tobacco abuse who presented with sepsis secondary to diabetic foot infection Today he is denying any chest pain, shortness of breath or pain in his foot He is adamantly declining amputation and reports wound care stating he had living tissue in the wound. He is scheduled for orthopedic surgery tomorrow He is tolerating p.o. afebrile and otherwise doing well. Review of Systems Review of Systems: All systems were reviewed and negative except as indicated in HPI above. Physical Exam Physical Exam: CONSTITUTIONAL: WNWD, vitals as above, generally NAD, unkempt disheveled appearance, appears to have poor personal hygiene, generalized weakness noted EYES: normal conjunctivae, no scleral icterus ENT: external ear and nose normal, poor dentition noted with missing teeth NECK: trachea midline, no lymphadenopathy, normal thyroid RESPIRATORY: clear to auscultation bilaterally, no crackles, rales or wheezes, normal respiratory effort CARDIOVASCULAR: regular rate and rhythm, S1 and 2 heard without murmurs, gallops or rubs, no JVD, no peripheral edema CHEST: inspection of chest was normal (+pacemaker, +port) GASTROINTESTINAL: soft, nontender, nondistended. MUSCULOSKELETAL: generalized weakness, however, he moves all extremities equally, head is normocephalic and atraumatic SKIN: warm and dry, LLE evaluated--dressing in place covering wounds-clean and dry, erythema of the foot that doesn't extend past the ankle. 2+DP pulses to palpation. NEUROLOGIC: CN 2-12 grossly intact, sensation loss on his feet bilaterally, normal cognition, normal speech, no tremor PSYCHIATRIC: alert cooperative and oriented to person, place and time. Results & Data Results & Data ([facility]) Vital Signs (Past 12 Hours) Vital Signs Temp Pulse Pulse Resp BP Pulse Ox 11/19/20 15:19 36.7 C 104 H 20 115/73 92 11/19/20 11:47 36.7 C 89 19 97/63 L 93 11/19/20 08:00 90 11/19/20 07:53 36.6 C 88 20 107/74 92 Laboratory Results BMP 11/19/20 07:00 Creatinine 0.39 L Medications Administered Current Inpatient Medications Acetaminophen (Acetaminophen 325 Mg Tab) 650 mg PO Q4H PRN PRN Reason: Pain or Fever Stop: 12/16/20 14:45 Last Admin: 11/19/20 16:08 Dose: 650 mg Documented by: Al Hydrox/Mg Hydrox/Simethicone (Aluminum/Magnesium Susp 30 Ml Udc) 15 ml PO Q4H PRN PRN Reason: Dyspepsia Stop: 12/16/20 14:45 Last Admin: 11/18/20 03:56 Dose: 15 ml Documented by: Calcium Carbonate (Calcium Carbonate 500 Mg Chewable Tab) 500 mg PO Q6H PRN PRN Reason: Heartburn Stop: 12/17/20 22:01 Last Admin: 11/17/20 22:43 Dose: 500 mg Documented by: Dextrose (Dextrose 50% 50 Ml Syringe) 25 - 50 ml IV UD PRN; Protocol PRN Reason: Hypoglycemia Protocol Stop: 12/16/20 14:45 Glucagon (Glucagon For Inj 1 Mg Vial) 1 mg SQ UD PRN; Protocol PRN Reason: Hypoglycemia Protocol Stop: 12/16/20 14:45 Glucose (Glucose 10 Tabs/Tube) 4 - 8 tabs PO UD PRN; Protocol PRN Reason: Hypoglycemia Protocol Stop: 12/16/20 14:45 Glucose (Glucose 40% Gel 15 Gm Tube) 15 - 30 gm PO UD PRN; Protocol PRN Reason: Hypoglycemia Protocol Stop: 12/16/20 14:45 Metronidazole (Flagyl) 500 mg in 100 mls @ 100 mls/hr IV Q8H [facility] Stop: 11/23/20 19:59 Last Infusion: 11/19/20 15:00 Dose: Infused Documented by: Cefepime HCl 2,000 mg/ Syringe 20 mls @ 5 mls/min IV Q8H [facility]; Protocol Stop: 11/24/20 08:59 Last Admin: 11/19/20 08:22 Dose: 5 mls/min Documented by: Vancomycin HCl 1,500 mg/ (Sodium Chloride) 530 mls @ 200 mls/hr IV Q8H [facility]; Protocol Stop: 11/25/20 17:59 Last Infusion: 11/19/20 14:07 Dose: Infused Documented by: Ibuprofen (Ibuprofen 200 Mg Tab) 200 mg PO Q6H PRN PRN Reason: Mild Pain Stop: 12/18/20 00:28 Last Admin: 11/19/20 04:44 Dose: 200 mg Documented by: Insulin Human NPH (Insulin Human Nph) 25 units SC BIDM [facility] Stop: 12/18/20 07:59 Last Admin: 11/19/20 08:22 Dose: 25 units Documented by: Insulin Human Regular (Insulin Human Regular) 0 units SC ACHS [facility] Stop: 12/17/20 11:29 Last Admin: 11/19/20 12:39 Dose: 25 units Documented by: Magnesium Hydroxide (Magnesium Hydroxide Susp 30 Ml Udc) 30 ml PO Q12H PRN PRN Reason: Constipation Stop: 12/16/20 14:45 Miscellaneous (Carbohydrates For Hypoglycemia ) 15 - 30 gm PO UD PRN PRN Reason: Hypoglycemia Protocol Stop: 12/16/20 14:45 Miscellaneous Information (Pharmacy Glycemic Mgmt Consult) 1 ea N/A UD PRN; Protocol PRN Reason: Consult Stop: 12/16/20 14:11 Miscellaneous Information (Cefepime Consult Active) 0 ea N/A UD PRN PRN Reason: Consult Stop: 12/16/20 14:45 Miscellaneous Information (Vancomycin Consult Active) 1 ea N/A UD PRN PRN Reason: Consult Stop: 12/16/20 14:45 Ondansetron HCl (Ondansetron Inj 2 Mg/Ml 2 Ml Vial) 4 mg IV Q6H PRN PRN Reason: Nausea Stop: 12/16/20 14:45 Polyethylene Glycol (Polyethylene (Miralax) 17 Gm Pack) 17 gm PO DAILY PRN PRN Reason: Constipation Stop: 12/16/20 14:45 Zolpidem Tartrate (Zolpidem Tartrate 10 Mg Tab) 10 mg PO HS PRN PRN Reason: Insomnia Stop: 12/17/20 20:59 Last Admin: 11/18/20 22:37 Dose: 10 mg Documented by:
[2020-11-19] MEDS: ZOLPIDEM TARTRATE 10 MG TAB PO PRN (20:26)
[2020-11-19] MEDS ORDERED: LORazepam 0.5 MG TAB PO STA (23:18)
[2020-11-20] MEDS: IBUPROFEN 200 MG TAB PO PRN (00:36)
[2020-11-20] MEDS: CEFEPIME 2,000 MG in SYRINGE 0 ML IV SCH ×3 (00:38→17:28)
[2020-11-20] MEDS: metroNIDAZOLE 500 MG/100 ML BAG IV SCH ×3 (03:46→21:03)
[2020-11-20] MEDS ORDERED: INSULIN HUMAN NPH SC SCH ×3 (07:30→16:30)
[2020-11-20] MEDS: INSULIN HUMAN REGULAR SC SCH ×4 (08:50→21:05)
[2020-11-20] MEDS ORDERED: fentaNYL citrate 100 MCG/2 ML VIAL IV PRN (08:54)
[2020-11-20] MEDS ORDERED: ONDANSETRON INJ 2 MG/ML 2 ML VIAL IV PRN (08:54)
[2020-11-20] MEDS ORDERED: ATROPINE SULFATE 0.1 MG/ML 10ML SYR IV PRN (08:54)
[2020-11-20] MEDS ORDERED: ePHEDrine sulfate 50 MG/ML AMP IV PRN (08:54)
[2020-11-20] MEDS ORDERED: INSULIN HUMAN NPH SC ONE (09:00)
[2020-11-20] MEDS ORDERED: VANCOMYCIN TROUGH ONE (09:30)
[2020-11-20 09:32] LABS: Hematocrit (blood only) 38.9 % (42-52); Hemoglobin 13.4 g/dL (14.0-18.0); Mean Corpuscular Hemoglobin 30.7 pg (25-34); Mean Corpuscular Hgb Conc 34.4 g/dL (32-36); Mean Platelet Volume 10.3 fL (7.4-10.4); Platelet Count 238 K/uL (130-400); RDW Coefficient of Variation 14.2 % (11.5-14.5); RDW Standard Deviation 46.5 fL (36.4-46.3); Red Blood Count 4.37 M/uL (4.7-6.1)
[2020-11-20] MEDS ORDERED: PROPOFOL IV EMULSION 10 MG/ML 20 ML VIAL IV ONE (09:43)
[2020-11-20] MEDS ORDERED: LIDOCAINE 2% 2 ML VIAL/AMP(20MG/ML) INFIL ONE (09:43)
[2020-11-20] MEDS ORDERED: fentaNYL citrate 100 MCG/2 ML VIAL ONE (09:43)
[2020-11-20 09:48] LABS: BUN Creatinine Ratio 47.4 (10-20); Blood Urea Nitrogen 15 mg/dl (7-18); C Reactive Protein 6.55 mg/dl (0-0.29); Calcium 8.8 mg/dl (8.5-10.1); Carbon Dioxide 27 mmol/L (21-32); Chloride 107 mmol/L (98-107); Creatinine Clr Calc Pharmacy 339.4 ml/min; Est GFR (African American) > 150.0 ml/min; Est GFR (Non-African American) 143.5 ml/min; Glucose 138 mg/dl (70-99); Potassium 3.7 mmol/L (3.5-5.1); Sodium 138 mmol/L (136-145)
--- NOTE | 2020-11-20 10:06 | History & Physical Bridge Note ---
Date of Service November 20, 2020 History & Physical Bridge Note I have examined the patient, reviewed the History & Physical and in the interval since the performance of the History & Physical I have noted the following changes of clinical significance: Patient will require amputation left great toe and possibly first metatarsal head and second toe depending upon condition of deep soft tissues today. All questions answered. Remain n.p.o. Consent on chart.
[2020-11-20] MEDS: VANCOMYCIN HCL 1,500 MG in SODIUM CHLORIDE 0.9% 500 ML IV SCH ×2 (10:19→17:30)
--- NOTE | 2020-11-20 11:32 | Pharmacy Report ---
Pharmacy Abx Dose Short Note - Date of Service November 20, 2020 - Assessment & Plan Assessment 60 year old M receiving vancomycin/flagyl/cefepime for foot infection Day # 6 of antimicrobial therapy. Plan Vancomycin * Trough level came back subtherapeutic at ~7 mcg/ml - however previous dose not documented on, never given (0200 dose) * Due to missed dose, level likely lower than actual true trough. Plan to redraw trough tomorrow AM to reassess dosing * Patient planning on going to [place] for amputation * Will follow cultures Pharmacy will continue to follow and will adjust dose/frequency as necessary. Thank you.
[2020-11-20] MEDS ORDERED: BUPIVACAINE 0.5 % 5 MG/1 ML MPF 30ML VIAL ONE (12:03)
--- NOTE | 2020-11-20 13:25 | Post Operative Brief Note ---
Immediate Post Op Note v1 Date of Surgery November 20, 2020 Pre & Post Diagnosis Operation Date: 11/20/20 07:30 Pre-Op Diagnosis: 1. Skin ulcer of left great toe with necrosis of bone 2. Osteomyelitis of great toe of left foot 3. Deep infection second toe left foot Post-Op Diagnosis: 1. Skin ulcer of left great toe with necrosis of bone 2. Osteomyelitis of great toe of left foot 3. Deep infection second toe left foot 4. Necrosis of first toe, second toe and first metatarsal head 5. Septic tenosynovitis second extensor tendon I identified the patient and participated in the time-out.: Yes Procedure Operation Date: 11/20/20 07:30 Actual Procedures p Left Great Toe Amputation, Left second toe Amputation, Resection first metatarsal head, tenosynovectomy of second extensor tendon, Resection of Sesamoid Bones x2 great Toe(Left) - Frank Tolliver DO Surgeon Frank Tolliver DO Income Tax Preparer None Estimated Blood Loss 3 Findings Consistent with Post-Op Diagnosis Specimens Aerobic, anaerobic, Gram stain deep bone left necrotic great toe Bone and tissue first and second toe amputations Drains Other (1/2 inch iodoform gauze) Anesthesia Type MAC Regional Complications none Disposition Accompanied Patient To Recovery: Yes
--- NOTE | 2020-11-20 13:32 | Anesthesiology Progress Note ---
Date of Service November 20, 2020 Anesthesia Post Procedure Vital Signs Vital Signs: Temp Pulse Pulse Resp BP BP Pulse Ox 11/20/20 13:30 97.2 F L 89 20 103/76 98 11/20/20 13:20 91 H 20 121/72 97 11/20/20 13:11 96.8 F L 90 12 103/66 96 11/20/20 07:28 98.1 F 91 H 17 105/68 93 11/20/20 03:31 98.2 F 88 18 95/57 L 94 11/19/20 23:47 115 H 11/19/20 23:00 98.1 F 120 H 19 113/69 91 11/19/20 19:00 98.2 F 112 H 19 109/72 91 11/19/20 18:16 103 H 11/19/20 15:19 98.1 F 104 H 20 115/73 92 Pain Intensity Left Foot: Pain Intensity: 4 Head: Pain Intensity: 4 Transfer of Care Handoff Completed per policy Notes Mental Status: alert / awake / arousable and participated in evaluation Patient Amnestic to Procedure: Yes Nausea / Vomiting: adequately controlled Pain: adequately controlled Airway Patency, RR, SpO2: stable & adequate BP & HR: stable & adequate Hydration State: stable & adequate Anesthetic Complications: no major complications apparent and Pt Satisfied with anesthetic care
--- NOTE | 2020-11-20 14:09 | Hospitalist Progress Note ---
Date of Service November 20, 2020 Assessment & Plan (1) Sepsis: Plan: resuscitated (2) Diabetic foot ulcer with osteomyelitis: Plan: He continues on broad-spectrum antibiotics with an improvement clinically. He is s/p left foot surgery by Dr. Tolliver today and is recovering well post- operatively. Long-term antibiotics will likely be required in the setting of osteomyelitis. We will consult infectious disease to guide this therapy. (3) Insulin dependent type 2 diabetes mellitus: Plan: Uncontrolled with complications of peripheral neuropathy. A1C>15. Pharmacy for management of insulin during this admission. Cont to improve insulin management at time of discharge to promote good wound healing and overall health. Current glucose at goal (4) Diabetic peripheral neuropathy: Plan: cont to optimize glycemic control and continue good foot and wound care. Post op follow-up with the wound care center will likely be needed at discharge. (5) HLD (hyperlipidemia): Plan: reportedly taking Crestor at home, however, patient was initially unsure of this and reported noncompliance with multiple medications. Will need to review chart and discuss options with him, but currently post op. In favor of restarting this at discharge with PCP followup. (6) COPD (chronic obstructive pulmonary disease): Plan: chronic, not in exacerbation, smoking cessation recommended. (7) Insomnia: Plan: ambien per home regimen. (8) Depression with anxiety: Plan: Home meds listed include Abilify, quetiapine 25 mg p.o. twice daily. These have been held since admission, will confirm with patient and outpatient record that he is taking these prior to resuming. (9) Smoking: Plan: Cessation recommended (10) DVT prophylaxis: Plan: Will discuss chemoprophy with Ortho in post op state Full Code Dispo-uncertain, may need SNF post operatively as patient lives alone. Ruby Rodriguez DO [facility] Hospitalist Admission and Anticipated Discharge Date Admission Date: November 16, 2020 Subjective Patient is a 60-year-old poorly controlled diabetic with ongoing tobacco abuse who presented with sepsis secondary to diabetic foot infection Today he is denying any chest pain, shortness of breath or pain in his foot He is doing well post-toe amputation Denies pain, sOB or chest pain Tolerating PO Review of Systems Review of Systems: All systems were reviewed and negative except as indicated in HPI above. Physical Exam Physical Exam: CONSTITUTIONAL: WNWD, vitals as above, generally NAD, unkempt disheveled appearance, appears to have poor personal hygiene, generalized weakness noted, lying on side, doesn't move around much in bed EYES: normal conjunctivae, no scleral icterus ENT: external ear and nose normal, poor dentition noted with missing teeth NECK: trachea midline, no lymphadenopathy, normal thyroid RESPIRATORY: clear to auscultation bilaterally, no crackles, rales or wheezes, normal respiratory effort CARDIOVASCULAR: regular rate and rhythm, S1 and 2 heard without murmurs, gallops or rubs, no JVD, no peripheral edema CHEST: inspection of chest was normal (+pacemaker, +port) GASTROINTESTINAL: soft, nontender, nondistended. MUSCULOSKELETAL: generalized weakness, however, he moves all extremities equally with some effort, head is normocephalic and atraumatic, left foot covered with surgical dressing and ACEI, dry and intact. SKIN: warm and dry, surgical site not visualized with post op dressing in place. NEUROLOGIC: CN 2-12 grossly intact, sensation loss on his feet bilaterally, normal cognition, normal speech, no tremor PSYCHIATRIC: alert cooperative and oriented to person, place and time. Results & Data Results & Data ([facility]) Vital Signs (Past 12 Hours) Vital Signs Temp Pulse Resp BP BP Pulse Ox 11/20/20 13:54 36.9 C 85 18 114/75 96 11/20/20 13:30 36.2 C L 89 20 103/76 98 11/20/20 13:20 91 H 20 121/72 97 11/20/20 13:11 36.0 C L 90 12 103/66 96 11/20/20 07:28 36.7 C 91 H 17 105/68 93 11/20/20 03:31 36.8 C 88 18 95/57 L 94 Laboratory Results Short CBC 11/20/20 Range/Units 09:14 WBC 7.30 (4.8-10.8) K/uL Hgb 13.4 L (14.0-18.0) g/dL Hct 38.9 L (42-52) % Plt Count 238 (130-400) K/uL BMP 11/20/20 09:14 Sodium 138 Potassium 3.7 Chloride 107 Carbon Dioxide 27 BUN 15 Creatinine 0.32 L Glucose 138 H Calcium 8.8 Medications Administered Current Inpatient Medications Acetaminophen (Acetaminophen 325 Mg Tab) 650 mg PO Q4H PRN PRN Reason: Pain or Fever Stop: 12/16/20 14:45 Last Admin: 11/19/20 23:06 Dose: 650 mg Documented by: Al Hydrox/Mg Hydrox/Simethicone (Aluminum/Magnesium Susp 30 Ml Udc) 15 ml PO Q4H PRN PRN Reason: Dyspepsia Stop: 12/16/20 14:45 Last Admin: 11/18/20 03:56 Dose: 15 ml Documented by: Calcium Carbonate (Calcium Carbonate 500 Mg Chewable Tab) 500 mg PO Q6H PRN PRN Reason: Heartburn Stop: 12/17/20 22:01 Last Admin: 11/17/20 22:43 Dose: 500 mg Documented by: Dextrose (Dextrose 50% 50 Ml Syringe) 25 - 50 ml IV UD PRN; Protocol PRN Reason: Hypoglycemia Protocol Stop: 12/16/20 14:45 Glucagon (Glucagon For Inj 1 Mg Vial) 1 mg SQ UD PRN; Protocol PRN Reason: Hypoglycemia Protocol Stop: 12/16/20 14:45 Glucose (Glucose 10 Tabs/Tube) 4 - 8 tabs PO UD PRN; Protocol PRN Reason: Hypoglycemia Protocol Stop: 12/16/20 14:45 Glucose (Glucose 40% Gel 15 Gm Tube) 15 - 30 gm PO UD PRN; Protocol PRN Reason: Hypoglycemia Protocol Stop: 12/16/20 14:45 Metronidazole (Flagyl) 500 mg in 100 mls @ 100 mls/hr IV Q8H LUCIANA Stop: 11/23/20 19:59 Last Admin: 11/20/20 13:59 Dose: 100 mls/hr Documented by: Cefepime HCl 2,000 mg/ Syringe 20 mls @ 5 mls/min IV Q8H LUCIANA; Protocol Stop: 11/24/20 08:59 Last Admin: 11/20/20 09:22 Dose: 5 mls/min Documented by: Vancomycin HCl 1,500 mg/ (Sodium Chloride) 530 mls @ 200 mls/hr IV Q8H LUCIANA; Protocol Stop: 11/25/20 17:59 Last Infusion: 11/20/20 13:57 Dose: Infused Documented by: Insulin Human NPH (Insulin Human Nph) 0 units SC QDD LUCIANA; Protocol Stop: 12/20/20 16:29 Insulin Human Regular (Insulin Human Regular) 0 units SC ACHS LUCIANA Stop: 12/17/20 11:29 Last Admin: 11/20/20 08:50 Dose: Not Given Documented by: Magnesium Hydroxide (Magnesium Hydroxide Susp 30 Ml Udc) 30 ml PO Q12H PRN PRN Reason: Constipation Stop: 12/16/20 14:45 Miscellaneous (Carbohydrates For Hypoglycemia ) 15 - 30 gm PO UD PRN PRN Reason: Hypoglycemia Protocol Stop: 12/16/20 14:45 Miscellaneous Information (Pharmacy Glycemic Mgmt Consult) 1 ea N/A UD PRN; Protocol PRN Reason: Consult Stop: 12/16/20 14:11 Miscellaneous Information (Cefepime Consult Active) 0 ea N/A UD PRN PRN Reason: Consult Stop: 12/16/20 14:45 Miscellaneous Information (Vancomycin Consult Active) 1 ea N/A UD PRN PRN Reason: Consult Stop: 12/16/20 14:45 Ondansetron HCl (Ondansetron Inj 2 Mg/Ml 2 Ml Vial) 4 mg IV Q6H PRN PRN Reason: Nausea Stop: 12/16/20 14:45 Polyethylene Glycol (Polyethylene (Miralax) 17 Gm Pack) 17 gm PO DAILY PRN PRN Reason: Constipation Stop: 12/16/20 14:45 Zolpidem Tartrate (Zolpidem Tartrate 10 Mg Tab) 10 mg PO HS PRN PRN Reason: Insomnia Stop: 12/17/20 20:59 Last Admin: 11/19/20 20:26 Dose: 10 mg Documented by:
--- NOTE | 2020-11-20 15:36 | Operative Report (OR) ---
DATE OF PROCEDURE: 11/20/2020 PREOPERATIVE DIAGNOSES: 1. Complicated left skin ulceration great toe with necrosis of bone. 2. Osteomyelitis of the great toe. 3. Deep infection, second toe. 4. Necrosis of the first and second toes, first metatarsal head and sesamoid bones. 5. Septic tenosynovitis of the second extensor tendon. POSTOPERATIVE DIAGNOSES: 1. Complicated left skin ulceration great toe with necrosis of bone. 2. Osteomyelitis of the great toe. 3. Deep infection, second toe. 4. Necrosis of the first and second toes, first metatarsal head and sesamoid bones. 5. Septic tenosynovitis of the second extensor tendon. PROCEDURE: 1. Left great toe and second toe amputations. 2. Resection of first metatarsal head and sesamoid bones. 3. Tenosynovectomy of the second septic extensor tendon, sesamoid and the metatarsal head. SURGEON: Frank Tolliver DO. IMAGING CLERK: None. ANESTHESIA: MAC regional. SPECIMENS: 1. Aerobic, anaerobic, Gram stain -- deep bone, left necrotic great toe. 2. Bone and tissue -- first and second toe amputations. DRAINS: 1/2 inch iodoform gauze drain. COMPLICATIONS: None. BLOOD LOSS: 3 mL. 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 He notes his foot was turning "green and black." He was then admitted to the hospital with a bharath gnosis of sepsis. He was stabilized and orthopedics was consulted to deal with the left foot ulcerat ions and necrosis. He was seen by dressing partner, Dr. Fishman, with recommendation of amputation o f the great toe, possible second toe. The patient was scheduled for surgery as indicated. The patie nt had been scheduled for surgery yesterday; however, the patient ate breakfast and lunch and was the n postponed to maintain certainty with his n.p.o. status for today. DESCRIPTION OF PROCEDURE: The patient was taken to the operative suite and placed supine on the oper ating room table. After review of the consent and identification of proper site, the patient was sed ated with monitored anesthesia care. Tourniquet was applied high on the left thigh over cast padding . Left lower extremity was then sterilely prepped and draped in the usual sterile fashion, elevated and an Esmarch bandage was used to partially exsanguinate the foot from the ankle proximally and then a 4-inch Esmarch tourniquet was applied over sterile surgical towel at the level of the ankle. Ther e is no exsanguination of the foot due to the infection. Next, after surgical timeout was performed, a mid foot block concentrating on the first toe and secon d toe was then performed with approximately 25 to 30 mL of 0.5% Marcaine plain. Once this was comple rakesh and adequate anesthesia was achieved, the soft tissue flaps were mapped out using a skin marker a nd a 15 blade was then used to incise the great toe following the margins of necrosis, which were crys rly extensive for the great toe extending into the second toe. The medial hemisphere of the second t oe tissue was completely necrotic as well as down to the base of the soft tissue covering for the gre at toe. Next, a full-thickness incision was made with a 15 blade scalpel down to the extensor and the dorsal capsule of the great toe just proximal to the zone of demargination of necrosis. This allowed adequa te dorsal coverage. The incision was then carried circumferentially around the great toe through the joint capsule, taking care to preserve the plantar soft tissue elements as best as possible. Next, the sesamoids were noted to be necrotic as well as the distal aspect of the first metatarsal head. O nce the great toe was then sharply excised in its entirety, it was passed off as specimen. There was marked necrosis with foul odor and obvious deep abscess throughout. Caseative necrosis of the surrou nding fat was also noted. Next, the base of the second toe was noted to be completely necrotic with a [id number] infec tion from the plantar pad of the foot through channels to the dorsal aspect of the second toe. There fore, decision was made to completely amputate the second toe. The necrosis and damage to soft tissu es were too extensive for salvage. Next, the second toe base at the joint capsule was then circumfer entially incised with a 15 blade scalpel, taking care to preserve the soft tissue flaps primarily in the lateral aspect of the second toe. Next, the second toe was then passed off as specimen. Deep cu lture was obtained adjacent to the bone of the first metatarsal head into the joint capsule and sent for aerobic, anaerobic, Gram stain. Next, the second extensor tendon was noted to have marked septic suppurative tenosynovitis with gross pus present. This was debrided back to a more healthy appearing tissue. There is a mop end dissolu tion of the second extensor tendon distally. A 15 blade scalpel and a rongeur were then used to rese ct the damaged portions of the second extensor tendon. Next, the sesamoid bones were also noted to b e necrotic. These were sharply excised with a 15 blade scalpel and then circumferential dissection w ith a 15 blade scalpel and a forceps was performed at the first metatarsal head, soft tissue and join t capsule, which was then sharply excised. Kamille rake and an [place] were then used to retract the soft tissue surrounding the distal aspect of the first metatarsal and then a sagittal saw was then us ed to resect the first metatarsal head back to the margin of healthy bone. Next, after all necrotic-appearing tissues have been sharply excised and reasonably viable array of t issue flaps was left for closure, pulsatile lavage with 3 liters of saline with Ancef was then used t o thoroughly cleanse the soft tissue. New top gloves and top sheet were then applied and then 1/2 in ch iodoform gauze packing was placed deep within the incision and the residual forefoot. Gentle low- tension rotation flaps of the first and second toes were then rolled proximally and dorsally and then closed loosely over a 1/2-inch iodoform gauze drain with interrupted 3-0 nylon sutures for a reasona mavis salvaged and reconstructed foot pad extending over the first metatarsal and second metatarsal. F inally, a sterile compressive dressing was applied consisting of Xeroform gauze, sterile 4 x 4s, cast padding, ABD pads x2 and a 4-inch Asad wrap. The tourniquet was released. The patient was awakened and taken to recovery in stable condition. Job ID: [id number]
[2020-11-20] MEDS ORDERED: POTASSIUM CHLORIDE CRTAB 20 MEQ TABCR PO STA (19:46)
[2020-11-20] MEDS ORDERED: POTASSIUM CHLORIDE 40 MEQ in SODIUM CHLORIDE 0.9% 1000ML 1,000 ML IV ONE (20:00)
--- NOTE | 2020-11-20 20:48 | XRay Report ---
SINGLE VIEW CHEST CLINICAL HISTORY: Hypoxia. FINDINGS: An 2 AP, portable, upright chest radiographs are compared to study dated 11/16/2020 and carlos elated with chest CT dated 05/24/2020. The examination is degraded by portable technique and patient ro tation. The heart is mildly enlarged. The pulmonary vasculature is noncongested. Emphysema and chroni c interstitial thickening is similar to previous. Volume loss is again seen in the left lung with kathy vation of the left hemidiaphragm and fibrosis of the left upper lobe. The right lung appears clear. A vertical skinfold overlies the right lateral chest wall. No large pleural effusion or pneumothorax i s seen. The skeletal structures are osteopenic. The bony thorax is grossly intact. IMPRESSION: 1. No acute cardiopulmonary abnormality is identified. 2. Emphysema and chronic parenchymal changes as above, not significantly changed from previous. ACT 112: Negative or not required by law. Electronically signed by: Hero Fair M.D. 11/20/2020 8:46 PM
[2020-11-20 20:52] LABS: Partial Thromboplastin Ratio 0.8; Partial Thromboplastin Time 21.6 Seconds (21.0-31.0)
[2020-11-20 20:53] LABS: Base Excess ABG 3.8 mEq/L (-9-1.8); HCO3 ABG 27 mmol/L (19-24); Oxygen Saturation ABG 95.9 % (90-95); PCO2 ABG 37 mmHg (35-46); PO2 ABG 73 mmHg (80-95); pH ABG 7.49 (7.35-7.45)
[2020-11-20 20:54] LABS: Allen Test Pos (Pos)
[2020-11-20 21:01] LABS: BUN Creatinine Ratio 30.2 (10-20); Calcium 8.8 mg/dl (8.5-10.1); Creatinine Clr Calc Pharmacy 175.2 ml/min; Est GFR (African American) 126.7 ml/min; Est GFR (Non-African American) 109.3 ml/min; Potassium 3.7 mmol/L (3.5-5.1)
[2020-11-20 21:12] LABS: Thyroid Stimulating Hormone 0.963 uIu/ml (0.300-4.500)
[2020-11-20] MEDS: ZOLPIDEM TARTRATE 10 MG TAB PO PRN (21:17)
[2020-11-20] MEDS: ACETAMINOPHEN 325 MG TAB PO PRN (22:16)
[2020-11-21] MEDS: CEFEPIME 2,000 MG in SYRINGE 0 ML IV SCH ×3 (00:13→17:49)
[2020-11-21] MEDS: ACETAMINOPHEN 325 MG TAB PO PRN ×2 (02:41→07:35)
[2020-11-21] MEDS: VANCOMYCIN HCL 1,500 MG in SODIUM CHLORIDE 0.9% 500 ML IV SCH ×2 (02:45→09:06)
[2020-11-21] MEDS: metroNIDAZOLE 500 MG/100 ML BAG IV SCH ×3 (03:14→19:21)
[2020-11-21] MEDS: INSULIN HUMAN REGULAR SC SCH ×4 (08:45→21:49)
--- NOTE | 2020-11-21 09:09 | Orthopedic Progress Note ---
Date of Service November 21, 2020 Assessment & Plan (1) Diabetic foot ulcer with osteomyelitis: Plan: %10 yo male stable POD #1 s/p left great toe and 2nd toe amps, 1st met head and sesamoid resection 1. Med management- cont IV abx 2. DVT prophylaxis- pt does not appear to be on medical DVT agent, SCDs 3. PT/OT 4. D/C planning- Admission and Anticipated Discharge Date Admission Date: November 16, 2020 Subjective Pt resting in bed, denies complaints Physical Exam Physical Exam: Dressing intact left foot Results & Data ([facility]) Vital Signs (Past 12 Hours) Vital Signs Temp Pulse Resp BP Pulse Ox 11/21/20 07:50 36.4 C L 97 H 18 109/73 96 11/21/20 02:50 36.8 C 103 H 16 119/79 95 11/20/20 22:15 38.1 C H 133 H 22 120/74 94 Laboratory Results 11/21/20 11/20/20 11/20/20 Range/Units 08: 20:59 20:27 WBC (4.8-10.8) K/uL RBC (4.7-6.1) M/uL Hgb (14.0-18.0) g/dL Hct (42-52) % MCV (80-100) fL MCH (25-34) pg MCHC (32-36) g/dL RDW Std Deviation (36.4-46.3) fL RDW Coeff of Alex (11.5-14.5) % Plt Count (130-400) K/uL MPV (7.4-10.4) fL APTT 21.6 (21.0-31.0) Seconds PTT Ratio 0.8 ABG pH (7.35-7.45) ABG pCO2 (35-46) mmHg ABG pO2 (80-95) mmHg ABG HCO3 (19-24) mmol/L ABG O2 Saturation (90-95) % ABG Base Excess (-9-1.8) mEq/L Devin Test (Pos) Barometric Pressure mm/Hg Oxygen Given Sodium (136-145) mmol/L Potassium (3.5-5.1) mmol/L Chloride (98-107) mmol/L Carbon Dioxide (21-32) mmol/L Anion Gap (3-11) BUN (7-18) mg/dl Creatinine (0.6-1.4) mg/dl Est Cr Clr Drug Dosing ml/min Est GFR ( Amer) ml/min Est GFR (Non-Af Amer) ml/min BUN/Creatinine Ratio (10-20) Glucose (70-99) mg/dl POC Glucose 249 H 157 H (70-99) mg/dl Lactate (0.4-2.0) mmol/L Calcium (8.5-10.1) mg/dl Magnesium (1.8-2.4) mg/dl C-Reactive Protein (0-0.29) mg/dl TSH (0.300-4.500) uIu/ml Vancomycin Trough (See Comment) mcg/ml 11/20/20 11/20/20 11/20/20 Range/Units 20:27 20:27 20:27 WBC (4.8-10.8) K/uL RBC (4.7-6.1) M/uL Hgb (14.0-18.0) g/dL Hct (42-52) % MCV (80-100) fL MCH (25-34) pg MCHC (32-36) g/dL RDW Std Deviation (36.4-46.3) fL RDW Coeff of Alex (11.5-14.5) % Plt Count (130-400) K/uL MPV (7.4-10.4) fL APTT (21.0-31.0) Seconds PTT Ratio ABG pH 7.49 H (7.35-7.45) ABG pCO2 37 (35-46) mmHg ABG pO2 73 L (80-95) mmHg ABG HCO3 27 H (19-24) mmol/L ABG O2 Saturation 95.9 H (90-95) % ABG Base Excess 3.8 H (-9-1.8) mEq/L Devin Test Pos (Pos) Barometric Pressure 737.0 mm/Hg Oxygen Given 2L Sodium 138 (136-145) mmol/L Potassium 3.7 (3.5-5.1) mmol/L Chloride 104 (98-107) mmol/L Carbon Dioxide 28 (21-32) mmol/L Anion Gap 6.0 (3-11) BUN 19 H (7-18) mg/dl Creatinine 0.62 D (0.6-1.4) mg/dl Est Cr Clr Drug Dosing 175.2 ml/min Est GFR ( Amer) 126.7 ml/min Est GFR (Non-Af Amer) 109.3 ml/min BUN/Creatinine Ratio 30.2 H (10-20) Glucose 215 H (70-99) mg/dl POC Glucose (70-99) mg/dl Lactate 1.7 (0.4-2.0) mmol/L Calcium 8.8 (8.5-10.1) mg/dl Magnesium 2.0 (1.8-2.4) mg/dl C-Reactive Protein (0-0.29) mg/dl TSH 0.963 (0.300-4.500) uIu/ml Vancomycin Trough (See Comment) mcg/ml 11/20/20 11/20/20 11/20/20 Range/Units 17:04 13:14 09:14 WBC (4.8-10.8) K/uL RBC (4.7-6.1) M/uL Hgb (14.0-18.0) g/dL Hct (42-52) % MCV (80-100) fL MCH (25-34) pg MCHC (32-36) g/dL RDW Std Deviation (36.4-46.3) fL RDW Coeff of Alex (11.5-14.5) % Plt Count (130-400) K/uL MPV (7.4-10.4) fL APTT (21.0-31.0) Seconds PTT Ratio ABG pH (7.35-7.45) ABG pCO2 (35-46) mmHg ABG pO2 (80-95) mmHg ABG HCO3 (19-24) mmol/L ABG O2 Saturation (90-95) % ABG Base Excess (-9-1.8) mEq/L Devin Test (Pos) Barometric Pressure mm/Hg Oxygen Given Sodium 138 (136-145) mmol/L Potassium 3.7 (3.5-5.1) mmol/L Chloride 107 (98-107) mmol/L Carbon Dioxide 27 (21-32) mmol/L Anion Gap 4.0 (3-11) BUN 15 (7-18) mg/dl Creatinine 0.32 L (0.6-1.4) mg/dl Est Cr Clr Drug Dosing 339.4 ml/min Est GFR ( Amer) > 150.0 ml/min Est GFR (Non-Af Amer) 143.5 ml/min BUN/Creatinine Ratio 47.4 H (10-20) Glucose 138 H (70-99) mg/dl POC Glucose 295 H 140 H (70-99) mg/dl Lactate (0.4-2.0) mmol/L Calcium 8.8 (8.5-10.1) mg/dl Magnesium (1.8-2.4) mg/dl C-Reactive Protein 6.55 H (0-0.29) mg/dl TSH (0.300-4.500) uIu/ml Vancomycin Trough (See Comment) mcg/ml 11/20/20 11/20/20 11/20/20 Range/Units 09:14 09:14 08:47 WBC 7.30 (4.8-10.8) K/uL RBC 4.37 L (4.7-6.1) M/uL Hgb 13.4 L (14.0-18.0) g/dL Hct 38.9 L (42-52) % MCV 89.0 (80-100) fL MCH 30.7 (25-34) pg MCHC 34.4 (32-36) g/dL RDW Std Deviation 46.5 H (36.4-46.3) fL RDW Coeff of Alex 14.2 (11.5-14.5) % Plt Count 238 (130-400) K/uL MPV 10.3 (7.4-10.4) fL APTT (21.0-31.0) Seconds PTT Ratio ABG pH (7.35-7.45) ABG pCO2 (35-46) mmHg ABG pO2 (80-95) mmHg ABG HCO3 (19-24) mmol/L ABG O2 Saturation (90-95) % ABG Base Excess (-9-1.8) mEq/L Devin Test (Pos) Barometric Pressure mm/Hg Oxygen Given Sodium (136-145) mmol/L Potassium (3.5-5.1) mmol/L Chloride (98-107) mmol/L Carbon Dioxide (21-32) mmol/L Anion Gap (3-11) BUN (7-18) mg/dl Creatinine (0.6-1.4) mg/dl Est Cr Clr Drug Dosing ml/min Est GFR ( Amer) ml/min Est GFR (Non-Af Amer) ml/min BUN/Creatinine Ratio (10-20) Glucose (70-99) mg/dl POC Glucose 137 H (70-99) mg/dl Lactate (0.4-2.0) mmol/L Calcium (8.5-10.1) mg/dl Magnesium (1.8-2.4) mg/dl C-Reactive Protein (0-0.29) mg/dl TSH (0.300-4.500) uIu/ml Vancomycin Trough 7.1 (See Comment) mcg/ml 11/20/20 Range/Units 07:09 WBC (4.8-10.8) K/uL RBC (4.7-6.1) M/uL Hgb (14.0-18.0) g/dL Hct (42-52) % MCV (80-100) fL MCH (25-34) pg MCHC (32-36) g/dL RDW Std Deviation (36.4-46.3) fL RDW Coeff of Alex (11.5-14.5) % Plt Count (130-400) K/uL MPV (7.4-10.4) fL APTT (21.0-31.0) Seconds PTT Ratio ABG pH (7.35-7.45) ABG pCO2 (35-46) mmHg ABG pO2 (80-95) mmHg ABG HCO3 (19-24) mmol/L ABG O2 Saturation (90-95) % ABG Base Excess (-9-1.8) mEq/L Devin Test (Pos) Barometric Pressure mm/Hg Oxygen Given Sodium (136-145) mmol/L Potassium (3.5-5.1) mmol/L Chloride (98-107) mmol/L Carbon Dioxide (21-32) mmol/L Anion Gap (3-11) BUN (7-18) mg/dl Creatinine (0.6-1.4) mg/dl Est Cr Clr Drug Dosing ml/min Est GFR ( Amer) ml/min Est GFR (Non-Af Amer) ml/min BUN/Creatinine Ratio (10-20) Glucose (70-99) mg/dl POC Glucose 157 H (70-99) mg/dl Lactate (0.4-2.0) mmol/L Calcium (8.5-10.1) mg/dl Magnesium (1.8-2.4) mg/dl C-Reactive Protein (0-0.29) mg/dl TSH (0.300-4.500) uIu/ml Vancomycin Trough (See Comment) mcg/ml Microbiology 11/20/20 12:43 Gram Stain - Final Foot,Left 11/18/20 10:00 Gram Stain - Final Toe,Left Great Wound Culture - Final Proteus mirabilis
[2020-11-21] MEDS ORDERED: INSULIN HUMAN NPH SC ONE (09:30)
[2020-11-21] MEDS ORDERED: VANCOMYCIN TROUGH ONE ×2 (09:30→17:30)
[2020-11-21 09:36] LABS: Hematocrit (blood only) 38.7 % (42-52); Hemoglobin 12.9 g/dL (14.0-18.0); Mean Corpuscular Hemoglobin 30.1 pg (25-34); Mean Corpuscular Hgb Conc 33.3 g/dL (32-36); Mean Corpuscular Volume 90.2 fL (80-100); Mean Platelet Volume 10.5 fL (7.4-10.4); Platelet Count 265 K/uL (130-400); RDW Coefficient of Variation 14.5 % (11.5-14.5); RDW Standard Deviation 47.7 fL (36.4-46.3); Red Blood Count 4.29 M/uL (4.7-6.1); White Blood Count 8.83 K/uL (4.8-10.8)
[2020-11-21 10:00] LABS: BUN Creatinine Ratio 25.5 (10-20); Calcium 8.7 mg/dl (8.5-10.1); Creatinine Clr Calc Pharmacy 204.9 ml/min; Creatinine Clr Calc Pharmacy 208.9 ml/min; Est GFR (African American) 135.2 ml/min; Est GFR (African American) 136.2 ml/min; Est GFR (Non-African American) 116.6 ml/min; Est GFR (Non-African American) 117.5 ml/min; Potassium 3.9 mmol/L (3.5-5.1)
--- NOTE | 2020-11-21 11:06 | Hospitalist Progress Note ---
Date of Service November 21, 2020 Assessment & Plan (1) Sepsis: Plan: resuscitated (2) Diabetic foot ulcer with osteomyelitis: Plan: He continues on broad-spectrum antibiotics with an improvement clinically. He is s/p left foot surgery by Dr. Tolliver today and is recovering well post- operatively. Long-term antibiotics will likely be required in the setting of osteomyelitis. We will consult infectious disease to guide this therapy. (3) Insulin dependent type 2 diabetes mellitus: Plan: Uncontrolled with complications of peripheral neuropathy. A1C>15. Pharmacy for management of insulin during this admission. Cont to improve insulin management at time of discharge to promote good wound healing and overall health. Current glucose around goal, cont management per glycemic pharmacist. (4) Diabetic peripheral neuropathy: Plan: cont to optimize glycemic control and continue good foot and wound care. Post op follow-up with the wound care center will likely be needed at discharge. (5) HLD (hyperlipidemia): Plan: reportedly taking Crestor at home, however, patient was initially unsure of this and reported noncompliance with multiple medications. Will need to review chart and discuss options with him, but currently post op. In favor of restarting this at discharge with PCP followup. (6) COPD (chronic obstructive pulmonary disease): Plan: chronic, not in exacerbation, smoking cessation recommended. (7) Insomnia: Plan: ambien per home regimen. Work on better methods for control of discomfort in his foot, consider narcotics instead of Tylenol (8) Depression with anxiety: Plan: Home meds listed include Abilify, quetiapine 25 mg p.o. twice daily. These have been held since admission, will confirm with patient and outpatient record that he is taking these prior to resuming. (9) Smoking: Plan: Cessation recommended (10) DVT prophylaxis: Plan: Will discuss chemoprophy with Ortho in post op state Full Code Dispo-uncertain, may need SNF post operatively as patient lives alone. Ruby Rodriguez DO [facility] Hospitalist Admission and Anticipated Discharge Date Admission Date: November 16, 2020 Subjective Patient is a 60-year-old poorly controlled diabetic with ongoing tobacco abuse who presented with sepsis secondary to diabetic foot infection He is POD#1 s/p Left Great Toe Amputation, Left 2nd Toe Amputation, Resection first metatarsal head, tenosynovectomy of 2nd extensor tendon, Resection of Sesamoid Bones Great Toe by Dr. Tolliver. Today he is denying any chest pain, shortness of breath or pain in his foot He reports insomnia 2/2 a feeling of increased blood flow in his foot and doesn't feel the Tylenol is working at this point. Tolerating PO Afebrile. Review of Systems Review of Systems: All systems were reviewed and negative except as indicated in HPI above. Physical Exam Physical Exam: CONSTITUTIONAL: WNWD, vitals as above, generally NAD, unkempt disheveled appearance, appears to have poor personal hygiene, generalized weakness noted, lying on side, doesn't move around much in bed EYES: normal conjunctivae, no scleral icterus ENT: external ear and nose normal, poor dentition noted with missing teeth NECK: trachea midline, no lymphadenopathy, normal thyroid RESPIRATORY: clear to auscultation bilaterally, no crackles, rales or wheezes, normal respiratory effort CARDIOVASCULAR: regular rate and rhythm, S1 and 2 heard without murmurs, gallops or rubs, no JVD, no peripheral edema CHEST: inspection of chest was normal (+pacemaker, +port) GASTROINTESTINAL: soft, nontender, nondistended. MUSCULOSKELETAL: generalized weakness, however, he moves all extremities equally with some effort, head is normocephalic and atraumatic, left foot covered with surgical dressing and ACEI, dry and intact. Surgical shoe in place. SKIN: warm and dry, surgical site not visualized with post op dressing in place. NEUROLOGIC: CN 2-12 grossly intact, sensation loss on his feet bilaterally, normal cognition, normal speech, no tremor PSYCHIATRIC: alert cooperative and oriented to person, place and time. Results & Data Results & Data ([facility]) Vital Signs (Past 12 Hours) Vital Signs Temp Pulse Resp BP Pulse Ox 11/21/20 07:50 36.4 C L 97 H 18 109/73 96 11/21/20 02:50 36.8 C 103 H 16 119/79 95 Laboratory Results Short CBC 11/21/20 Range/Units 09:22 WBC 8.83 (4.8-10.8) K/uL Hgb 12.9 L (14.0-18.0) g/dL Hct 38.7 L (42-52) % Plt Count 265 (130-400) K/uL BMP 11/20/20 11/21/20 11/21/20 20:27 09:22 09:22 Sodium 138 136 Potassium 3.7 3.9 Chloride 104 103 Carbon Dioxide 28 28 BUN 19 H 13 Creatinine 0.62 D 0.53 L 0.52 L Glucose 215 H 273 H Calcium 8.8 8.7 Medications Administered Current Inpatient Medications Acetaminophen (Acetaminophen 325 Mg Tab) 650 mg PO Q4H PRN PRN Reason: Pain or Fever Stop: 12/16/20 14:45 Last Admin: 11/21/20 07:35 Dose: 650 mg Documented by: Al Hydrox/Mg Hydrox/Simethicone (Aluminum/Magnesium Susp 30 Ml Udc) 15 ml PO Q4H PRN PRN Reason: Dyspepsia Stop: 12/16/20 14:45 Last Admin: 11/18/20 03:56 Dose: 15 ml Documented by: Calcium Carbonate (Calcium Carbonate 500 Mg Chewable Tab) 500 mg PO Q6H PRN PRN Reason: Heartburn Stop: 12/17/20 22:01 Last Admin: 11/17/20 22:43 Dose: 500 mg Documented by: Dextrose (Dextrose 50% 50 Ml Syringe) 25 - 50 ml IV UD PRN; Protocol PRN Reason: Hypoglycemia Protocol Stop: 12/16/20 14:45 Glucagon (Glucagon For Inj 1 Mg Vial) 1 mg SQ UD PRN; Protocol PRN Reason: Hypoglycemia Protocol Stop: 12/16/20 14:45 Glucose (Glucose 10 Tabs/Tube) 4 - 8 tabs PO UD PRN; Protocol PRN Reason: Hypoglycemia Protocol Stop: 12/16/20 14:45 Glucose (Glucose 40% Gel 15 Gm Tube) 15 - 30 gm PO UD PRN; Protocol PRN Reason: Hypoglycemia Protocol Stop: 12/16/20 14:45 Metronidazole (Flagyl) 500 mg in 100 mls @ 100 mls/hr IV Q8H [facility] Stop: 11/23/20 19:59 Last Infusion: 11/21/20 04:32 Dose: Infused Documented by: Cefepime HCl 2,000 mg/ Syringe 20 mls @ 5 mls/min IV Q8H [facility]; Protocol Stop: 11/24/20 08:59 Last Admin: 11/21/20 08:34 Dose: 5 mls/min Documented by: Vancomycin HCl 1,500 mg/ (Sodium Chloride) 530 mls @ 200 mls/hr IV Q8H [facility]; Protocol Stop: 11/25/20 17:59 Last Admin: 11/21/20 09:06 Dose: 200 mls/hr Documented by: Insulin Human NPH (Insulin Human Nph) 25 units SC QDD [facility] Stop: 12/21/20 16:29 Insulin Human Regular (Insulin Human Regular) 0 units SC ACHS [facility] Stop: 12/17/20 11:29 Last Admin: 11/21/20 08:45 Dose: 22 units Documented by: Magnesium Hydroxide (Magnesium Hydroxide Susp 30 Ml Udc) 30 ml PO Q12H PRN PRN Reason: Constipation Stop: 12/16/20 14:45 Miscellaneous (Carbohydrates For Hypoglycemia ) 15 - 30 gm PO UD PRN PRN Reason: Hypoglycemia Protocol Stop: 12/16/20 14:45 Miscellaneous Information (Pharmacy Glycemic Mgmt Consult) 1 ea N/A UD PRN; Protocol PRN Reason: Consult Stop: 12/16/20 14:11 Miscellaneous Information (Cefepime Consult Active) 0 ea N/A UD PRN PRN Reason: Consult Stop: 12/16/20 14:45 Miscellaneous Information (Vancomycin Consult Active) 1 ea N/A UD PRN PRN Reason: Consult Stop: 12/16/20 14:45 Ondansetron HCl (Ondansetron Inj 2 Mg/Ml 2 Ml Vial) 4 mg IV Q6H PRN PRN Reason: Nausea Stop: 12/16/20 14:45 Polyethylene Glycol (Polyethylene (Miralax) 17 Gm Pack) 17 gm PO DAILY PRN PRN Reason: Constipation Stop: 12/16/20 14:45 Zolpidem Tartrate (Zolpidem Tartrate 10 Mg Tab) 10 mg PO HS PRN PRN Reason: Insomnia Stop: 12/17/20 20:59 Last Admin: 11/20/20 21:17 Dose: 10 mg Documented by:
--- NOTE | 2020-11-21 14:11 | Pharmacy Report ---
Pharmacy Glycemic Short Note 2 - Date of Service November 21, 2020 - Glycemic Short BSG Results (Last 24 hours): 11/20/20 11/20/20 11/20/20 17:04 20:27 20:59 Glucose 215 H POC Glucose 295 H 157 H 11/21/20 11/21/20 11/21/20 08: 09:22 12:04 Glucose 273 H POC Glucose 249 H 255 H OUTPATIENT ANTIDIABETIC REGIMEN: * Humulin R 35 units SC AC for BSG greater than 175 mg/dL * Patient has reportedly not been taking this for past 6 months * HbA1c: 15.1% (11/17/20) ASSESSMENT: 11/21: * Pt received total 94 units of insulin yesterday; 45 units basal NPH and 49 units bolus with regular insulin. * Of note, patient is allergic to Novolog, therefore using regular insulin for meal coverage and correction. * Reduced dose of NPH was given yesterday AM since patient was NPO for surgery for L great toe amputation. Dosing increased to NPH 35 units this AM. * BSGs have been elevated this AM. Expect it to trend down tonight with higher dose of NPH ordered this AM. 11/19 * BSGs yesterday of 172, 318, 166, and 255 mg/dL, fasting BSG of 116 mg/dL this morning * Lunch BSG likely result of excess of 100 g of carbs with breakfast * Received 120 units of insulin (50 units of NPH, 70 units of regular) * Novolog further tightened last evening and will continue * Continue NPH 25 units BIDM 11/17 * RK is a 60 year old male admitted on 11/16/20 for IV antibiotic treatment of diabetic foot infection of left great toe * Patient was hyperglycemic on presentation, BSG of 343 mg/dL, Anion gap of 15, and CO2 of 20, BHA of 53.75 * Of note, patient has reported allergies to Novolog (tolerates regular/NPH insulins) * Insulin infusion initiated on admission with dose of NPH * BSGs trended down nicely and labs much improved today (A, CO2: 24, BS mg/dL) * Insulin infusion now discontinued will manage with SC basal/bolus * Will plan on NPH BIDM and regular insulin ACHS * BSG of 302 mg/dL at lunch, discussed with RN - patient ate multiple breakfast trays/snacked throughout the morning * Will not overreact to this BSG PLAN FOR INPATIENT GLYCEMIC CONTROL: * Basal insulin - increased AM dose * NPH 35 units SC QAM * NPH 25 units SC with dinner * Bolus insulin - continued * Novolin-R per scale ACHS or Q6hrs while NPO * Goal Range: Low 110 mg/dL - High 140 mg/dL * Correction Factor: 12 mg/dL/unit * Nutritional / Prandial insulin per carb ratio of 1 unit per 4 grams CHO consumed PLAN FOR DISCHARGE: * HbA1c of 15.1% suggests very poor outpatient glycemic control * Patient would likely benefit from adjustment of previous insulin regimen to SC basal/bolus * Novolin 70/30 regular insulin may be good option for patient in terms of convenience * At this point, reasonable to discharge with Novolin 70/30: 45 units SC BIDM * Will require timely outpatient follow-up for further insulin dose titration * Support Patient Self-Management * Healthy Lifestyle (diet, exercise, and smoking cessation) * Disease self-management (SMBG) * Prevention of complications (BP, Lipid goals, Immunizations) * Consider outpatient Diabetes Self-Management Education & Support * Most patients on multiple-dose insulin (MDI) should SMBG * Prior to meals and snacks * At bedtime * Prior to exercise * When they suspect low blood glucose * After treating low blood glucose until they are normoglycemic * Prior to critical tasks such as driving * Occasionally postprandially
[2020-11-21] MEDS: INSULIN HUMAN NPH SC SCH (17:46)
[2020-11-21] MEDS: ZOLPIDEM TARTRATE 10 MG TAB PO PRN (21:45)
--- NOTE | 2020-11-21 23:07 | Electrocardiogram Report ---
Test Reason : Blood Pressure : / mmHG Vent. Rate : 132 BPM Atrial Rate : 132 BPM P-R Int : 132 ms QRS Dur : 086 ms QT Int : 308 ms P-R-T Axes : 053 -45 097 degrees QTc Int : 456 ms Sinus tachycardia Left anterior fascicular block Cannot rule out Inferior infarct (cited on or before 16-NOV-2020) Nonspecific ST and T wave abnormality Abnormal ECG When compared with ECG of 16-NOV-2020 12:34, No significant change was found Confirmed by Jovani Borja ([id number]) on 11/21/2020 11:07:12 PM Referred By: REFERRED SELF Confirmed By:Jovani Borja
[2020-11-22] MEDS: ACETAMINOPHEN 325 MG TAB PO PRN (01:24)
[2020-11-22] MEDS: CEFEPIME 2,000 MG in SYRINGE 0 ML IV SCH ×3 (01:24→17:13)
[2020-11-22] MEDS: metroNIDAZOLE 500 MG/100 ML BAG IV SCH ×3 (03:55→19:56)
[2020-11-22] MEDS: traMADol HCL 50 MG TABLET PO PRN (04:06)
[2020-11-22 08:10] LABS: Hematocrit (blood only) 40.4 % (42-52); Hemoglobin 13.6 g/dL (14.0-18.0); Mean Corpuscular Hemoglobin 30.4 pg (25-34); Mean Corpuscular Hgb Conc 33.7 g/dL (32-36); Mean Corpuscular Volume 90.2 fL (80-100); Mean Platelet Volume 10.3 fL (7.4-10.4); Platelet Count 314 K/uL (130-400); RDW Coefficient of Variation 14.6 % (11.5-14.5); RDW Standard Deviation 48.3 fL (36.4-46.3); Red Blood Count 4.48 M/uL (4.7-6.1); White Blood Count 7.53 K/uL (4.8-10.8)
[2020-11-22] MEDS: INSULIN HUMAN NPH SC SCH ×2 (08:22→17:38)
[2020-11-22] MEDS: INSULIN HUMAN REGULAR SC SCH ×4 (08:23→20:41)
[2020-11-22 08:48] LABS: Creatinine Clr Calc Pharmacy 310.3 ml/min; Est GFR (African American) > 150.0 ml/min; Est GFR (Non-African American) 138.3 ml/min
--- NOTE | 2020-11-22 11:16 | Orthopedic Progress Note ---
Date of Service November 22, 2020 Assessment & Plan (1) Diabetic foot ulcer with osteomyelitis: Plan: %10 yo male stable POD #2 s/p left great toe and 2nd toe amps, 1st met head and sesamoid resection 1. Med management- cont IV abx 2. DVT prophylaxis- as per Med service 3. PT/OT 4. Daily dressing changes. Remainder of packng to be removed tomorrow. Admission and Anticipated Discharge Date Admission Date: November 16, 2020 Subjective POD 2 Pt awake, alert. No complaints of foot pain presently. No new complaints. Physical Exam Physical Exam: Dressings removed. Suture line intact. Mild maceration around one edge of wound. Scant bloody drainage. Iodiform gauze present. 12" of packing removed. Mild erythema noted around wound edges. No purulence noted. No odor. Wound redressed. Results & Data ([facility]) Vital Signs (Past 12 Hours) Vital Signs Temp Pulse Resp BP Pulse Ox 11/22/20 06:51 36.7 C 96 H 18 110/75 94 11/22/20 04:00 96 H 113/72 96
--- NOTE | 2020-11-22 17:52 | Hospitalist Progress Note ---
Date of Service November 22, 2020 Assessment & Plan (1) Sepsis: Plan: resuscitated (2) Diabetic foot ulcer with osteomyelitis: Plan: He continues on broad-spectrum antibiotics with an improvement clinically. He is s/p left foot surgery by Dr. Tolliver today and is recovering well post- operatively. Long-term antibiotics will likely be required in the setting of osteomyelitis. We will consult infectious disease to guide this therapy. (3) Insulin dependent type 2 diabetes mellitus: Plan: Uncontrolled with complications of peripheral neuropathy. A1C>15. Pharmacy for management of insulin during this admission. Cont to improve insulin management at time of discharge to promote good wound healing and overall health. Current glucose around goal, cont management per glycemic pharmacist. (4) Diabetic peripheral neuropathy: Plan: cont to optimize glycemic control and continue good foot and wound care. Cont post operative wound care per orthopedics. (5) HLD (hyperlipidemia): Plan: reportedly taking Crestor at home, however, patient was initially unsure of this and reported noncompliance with multiple medications. Will need to review chart and discuss options with him, but currently post op. In favor of restarting this at discharge with PCP followup. (6) COPD (chronic obstructive pulmonary disease): Plan: chronic, not in exacerbation, smoking cessation recommended. (7) Insomnia: Plan: ambien per home regimen. Cont effective pain control efforts while hospitalized. (8) Depression with anxiety: (9) Smoking: Plan: Cessation recommended (10) DVT prophylaxis: Plan: Will discuss chemoprophy with Ortho in post op state Full Code Dispo-uncertain, may need SNF post operatively as patient lives alone. Ruby Rodriguez DO [facility] Hospitalist Admission and Anticipated Discharge Date Admission Date: November 16, 2020 Subjective Patient is a 60-year-old poorly controlled diabetic with ongoing tobacco abuse who presented with sepsis secondary to diabetic foot infection He is POD#2 s/p Left Great Toe Amputation, Left 2nd Toe Amputation, Resection first metatarsal head, tenosynovectomy of 2nd extensor tendon, Resection of Sesamoid Bones Great Toe by Dr. Tolliver. Today he is denying any chest pain, shortness of breath or pain in his foot Tolerating PO Afebrile. Review of Systems Review of Systems: All systems were reviewed and negative except as indicated in HPI above. Physical Exam Physical Exam: CONSTITUTIONAL: WNWD, vitals as above, generally NAD EYES: normal conjunctivae, no scleral icterus ENT: external ear and nose normal, poor dentition noted with missing teeth NECK: trachea midline RESPIRATORY: clear to auscultation bilaterally, no crackles, rales or wheezes, normal respiratory effort CARDIOVASCULAR: regular rate and rhythm, S1 and 2 heard without murmurs, gallops or rubs, no JVD, no peripheral edema GASTROINTESTINAL: soft, nontender, nondistended. +protuberant MUSCULOSKELETAL: moves independently around the bed with some time, deconditioning present, head is normocephalic and atraumatic, left foot covered with surgical dressing and ACEI, dry and intact. Surgical shoe in place. SKIN: warm and dry, surgical site not visualized with post op dressing in mallory ce. NEUROLOGIC: CN 2-12 grossly intact, sensation loss on his feet bilaterally, normal cognition, normal speech, no tremor PSYCHIATRIC: alert cooperative and oriented to person, place and time. Results & Data Results & Data ([facility]) Vital Signs (Past 12 Hours) Vital Signs Temp Pulse Resp BP Pulse Ox 11/22/20 14:54 36.6 C 101 H 18 116/74 92 11/22/20 06:51 36.7 C 96 H 18 110/75 94 Laboratory Results Short CBC 11/22/20 Range/Units 07:27 WBC 7.53 (4.8-10.8) K/uL Hgb 13.6 L (14.0-18.0) g/dL Hct 40.4 L (42-52) % Plt Count 314 (130-400) K/uL BMP 11/22/20 07:27 Creatinine 0.35 L Medications Administered Current Inpatient Medications Acetaminophen (Acetaminophen 325 Mg Tab) 650 mg PO Q4H PRN PRN Reason: Pain or Fever Stop: 12/16/20 14:45 Last Admin: 11/22/20 01:24 Dose: 650 mg Documented by: Al Hydrox/Mg Hydrox/Simethicone (Aluminum/Magnesium Susp 30 Ml Udc) 15 ml PO Q4H PRN PRN Reason: Dyspepsia Stop: 12/16/20 14:45 Last Admin: 11/18/20 03:56 Dose: 15 ml Documented by: Calcium Carbonate (Calcium Carbonate 500 Mg Chewable Tab) 500 mg PO Q6H PRN PRN Reason: Heartburn Stop: 12/17/20 22:01 Last Admin: 11/17/20 22:43 Dose: 500 mg Documented by: Dextrose (Dextrose 50% 50 Ml Syringe) 25 - 50 ml IV UD PRN; Protocol PRN Reason: Hypoglycemia Protocol Stop: 12/16/20 14:45 Glucagon (Glucagon For Inj 1 Mg Vial) 1 mg SQ UD PRN; Protocol PRN Reason: Hypoglycemia Protocol Stop: 12/16/20 14:45 Glucose (Glucose 10 Tabs/Tube) 4 - 8 tabs PO UD PRN; Protocol PRN Reason: Hypoglycemia Protocol Stop: 12/16/20 14:45 Glucose (Glucose 40% Gel 15 Gm Tube) 15 - 30 gm PO UD PRN; Protocol PRN Reason: Hypoglycemia Protocol Stop: 12/16/20 14:45 Metronidazole (Flagyl) 500 mg in 100 mls @ 100 mls/hr IV Q8H [facility] Stop: 11/23/20 19:59 Last Infusion: 11/22/20 12:53 Dose: Infused Documented by: Cefepime HCl 2,000 mg/ Syringe 20 mls @ 5 mls/min IV Q8H [facility]; Protocol Stop: 11/24/20 08:59 Last Admin: 11/22/20 17:13 Dose: 5 mls/min Documented by: Insulin Human NPH (Insulin Human Nph) 25 units SC QDD [facility] Stop: 12/21/20 16:29 Last Admin: 11/22/20 17:38 Dose: 25 units Documented by: Insulin Human NPH (Insulin Human Nph) 35 units SC QDB [facility] Stop: 12/22/20 07:29 Last Admin: 11/22/20 08:22 Dose: 35 units Documented by: Insulin Human Regular (Insulin Human Regular) 0 units SC ACHS [facility] Stop: 12/17/20 11:29 Last Admin: 11/22/20 17:39 Dose: 17 units Documented by: Magnesium Hydroxide (Magnesium Hydroxide Susp 30 Ml Udc) 30 ml PO Q12H PRN PRN Reason: Constipation Stop: 12/16/20 14:45 Miscellaneous (Carbohydrates For Hypoglycemia ) 15 - 30 gm PO UD PRN PRN Reason: Hypoglycemia Protocol Stop: 12/16/20 14:45 Miscellaneous Information (Pharmacy Glycemic Mgmt Consult) 1 ea N/A UD PRN; Protocol PRN Reason: Consult Stop: 12/16/20 14:11 Miscellaneous Information (Cefepime Consult Active) 0 ea N/A UD PRN PRN Reason: Consult Stop: 12/16/20 14:45 Ondansetron HCl (Ondansetron Inj 2 Mg/Ml 2 Ml Vial) 4 mg IV Q6H PRN PRN Reason: Nausea Stop: 12/16/20 14:45 Polyethylene Glycol (Polyethylene (Miralax) 17 Gm Pack) 17 gm PO DAILY PRN PRN Reason: Constipation Stop: 12/16/20 14:45 Tramadol HCl (Tramadol Hcl 50 Mg Tablet) 25 - 50 mg PO Q4H PRN PRN Reason: Pain Stop: 12/22/20 03:51 Last Admin: 11/22/20 04:06 Dose: 50 mg Documented by: Zolpidem Tartrate (Zolpidem Tartrate 10 Mg Tab) 10 mg PO HS PRN PRN Reason: Insomnia Stop: 12/17/20 20:59 Last Admin: 11/21/20 21:45 Dose: 10 mg Documented by:
[2020-11-22] MEDS: ZOLPIDEM TARTRATE 10 MG TAB PO PRN (22:23)
[2020-11-23] MEDS: CEFEPIME 2,000 MG in SYRINGE 0 ML IV SCH ×2 (01:21→08:36)
[2020-11-23] MEDS: traMADol HCL 50 MG TABLET PO PRN ×2 (03:09→07:08)
[2020-11-23] MEDS: metroNIDAZOLE 500 MG/100 ML BAG IV SCH ×2 (03:20→10:42)
[2020-11-23] MEDS ORDERED: KETOROLAC TROMETHAMINE 15 MG/ML VIAL IV ONE (04:53)
--- NOTE | 2020-11-23 07:18 | CT Scan Report ---
HEAD CT NONCONTRAST CT DOSE: 614.27 mGy.cm HISTORY: worst migraine headache as per px TECHNIQUE: Multiaxial CT images of the head were performed without the use of intravenous contrast. A utomated exposure control was utilized for this study. A dose lowering technique was utilized adheri ng to the principles of ALARA. Comparison: Head CT 08/07/2020. Findings: The paranasal sinuses and mastoid air cells are clear. The calvarium and skull base are int act. There is no mass, hematoma, midline shift, acute infarct. White matter hypodensity is nonspecifi c but suggestive of microvascular ischemic change. The ventricles and sulci demonstrate mild age-rela rakesh involutional changes. 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 Impression: No significant change compared to the prior study. No acute intracranial abnormality. ACT 112: Negative or not required by law. Electronically signed by: Jace Ceballos M.D. 11/23/2020 7:17 AM
[2020-11-23 07:31] LABS: Creatinine Clr Calc Pharmacy 215.3 ml/min; Est GFR (African American) 138.5 ml/min; Est GFR (Non-African American) 119.5 ml/min
[2020-11-23 07:45] VITALS: TEMP 97.9; O2SAT 97
[2020-11-23] MEDS: INSULIN HUMAN REGULAR SC SCH ×2 (08:48→12:41)
[2020-11-23] MEDS: INSULIN HUMAN NPH SC SCH (08:49)
[2020-11-23] MEDS ORDERED: IBUPROFEN 600 MG TAB PO STA (09:14)
--- NOTE | 2020-11-23 09:33 | Orthopedic Progress Note ---
Date of Service November 23, 2020 Assessment & Plan (1) Diabetic foot ulcer with osteomyelitis: Plan: 60 yo male stable POD #3 s/p left great toe and 2nd toe amps, 1st met head and sesamoid resection 1. Med management- cont IV abx 2. DVT prophylaxis- as per Med service 3. PT/OT 4. Daily dressing changes. 5. DC planning - Planning for [facility] with picc line and iv antibx Ortho will sign off at this time. No further surgery needed. Continue IV antibx. Follow up with Dr Tolliver in 10 days. Admission and Anticipated Discharge Date Admission Date: November 16, 2020 Subjective POD 3 Lying in bed awake and alert. No complaints. Speaking to Dr Rodriguez about future plans for picc line / antibx Physical Exam Physical Exam: Dressings removed. Less erythema noted. No purulent drainage. Cap refill < 2 seconds. All packing removed. No overt drainage from the packing site. Wound redressed. Results & Data ([facility]) Vital Signs (Past 12 Hours) Vital Signs Temp Pulse Resp BP Pulse Ox 11/23/20 07:42 36.6 C 90 20 119/76 97 11/23/20 01:34 95 11/22/20 21:40 36.8 C 106 H 17 107/68 93
[2020-11-23] MEDS ORDERED: ENOXAPARIN INJ 40 MG/0.4 ML SYR SQ SCH (12:45)
--- NOTE | 2020-11-23 12:46 | Hospitalist Progress Note ---
Date of Service November 23, 2020 Assessment & Plan (1) Sepsis: Plan: resuscitated (2) Diabetic foot ulcer with osteomyelitis: Plan: He continues on broad-spectrum antibiotics with an improvement clinically. He is s/p left foot surgery by Dr. Tolliver 11/20 and is recovering well post- operatively. Per ID, patient will require 2 weeks of IV ceftriaxone. IV flagyl changed to PO. IV team contacted to place us-guided line prior to discharge to SNF. (3) Insulin dependent type 2 diabetes mellitus: Plan: Uncontrolled with complications of peripheral neuropathy. A1C>15. Pharmacy for management of insulin during this admission. Cont to improve insulin management at time of discharge to promote good wound healing and overall health. Current glucose around goal, cont management per glycemic pharmacist. (4) Diabetic peripheral neuropathy: Plan: cont to optimize glycemic control and continue good foot and wound care. Cont post operative wound care per orthopedics. (5) HLD (hyperlipidemia): Plan: reportedly taking Crestor at home, however, patient was initially unsure of this and reported noncompliance with multiple medications. Will need to review chart and discuss options with him, but currently post op. In favor of restarting this at discharge with PCP followup. (6) COPD (chronic obstructive pulmonary disease): Plan: chronic, not in exacerbation, smoking cessation recommended. (7) Insomnia: Plan: ambien per home regimen. Cont effective pain control efforts while hospitalized. (8) Depression with anxiety: Plan: current in good spirits. Off medical therapy at this time. Recommend PCP followup. (9) Smoking: Plan: Cessation recommended (10) DVT prophylaxis: Plan: Lovenox Full Code Dispo-centre care, possibly tomorrow. DO Edwin Worthynew [facility] Hospitalist Admission and Anticipated Discharge Date Admission Date: November 16, 2020 Subjective Patient is a 60-year-old poorly controlled diabetic with ongoing tobacco abuse who presented with sepsis secondary to diabetic foot infection He is POD#3 s/p Left Great Toe Amputation, Left 2nd Toe Amputation, Resection first metatarsal head, tenosynovectomy of 2nd extensor tendon, Resection of Sesamoid Bones Great Toe by Dr. Tolliver. Today he is denying any chest pain, shortness of breath or pain in his foot He was previously reporting a strange feeling of possible new increased blood flow to the wound area which has gone away Tolerating PO Afebrile. Review of Systems Review of Systems: At least ten systems were reviewed and negative except as indicated in HPI above. Physical Exam Physical Exam: CONSTITUTIONAL: WNWD, vitals as above, generally NAD EYES: normal conjunctivae, no scleral icterus ENT: external ear and nose normal, poor dentition noted with missing teeth NECK: trachea midline RESPIRATORY: clear to auscultation bilaterally, no crackles, rales or wheezes, normal respiratory effort CARDIOVASCULAR: regular rate and rhythm, S1 and 2 heard without murmurs, gallops or rubs, no JVD, no peripheral edema GASTROINTESTINAL: soft, nontender, nondistended. +protuberant MUSCULOSKELETAL: moves independently around the bed with some time, decondi tioning present, head is normocephalic and atraumatic, left foot covered with surgical dressing and ACEI, dry and intact. Surgical shoe in place. SKIN: warm and dry, surgical site visualized with packing removed at bedside by ortho PA. Sutures in place, incision sites are closed, no drainage or erythema. NEUROLOGIC: CN 2-12 grossly intact, sensation loss on his feet bilaterally, normal cognition, normal speech, no tremor PSYCHIATRIC: alert cooperative and oriented to person, place and time. Results & Data Results & Data ([facility]) Vital Signs (Past 12 Hours) Vital Signs Temp Pulse Resp BP Pulse Ox 11/23/20 07:42 36.6 C 90 20 119/76 97 11/23/20 01:34 95 Laboratory Results [facility] 11/23/20 06:27 Creatinine 0.50 L Medications Administered Current Inpatient Medications Acetaminophen (Acetaminophen 325 Mg Tab) 650 mg PO Q4H PRN PRN Reason: Pain or Fever Stop: 12/16/20 14:45 Last Admin: 11/22/20 01:24 Dose: 650 mg Documented by: Al Hydrox/Mg Hydrox/Simethicone (Aluminum/Magnesium Susp 30 Ml Udc) 15 ml PO Q4H PRN PRN Reason: Dyspepsia Stop: 12/16/20 14:45 Last Admin: 11/18/20 03:56 Dose: 15 ml Documented by: Calcium Carbonate (Calcium Carbonate 500 Mg Chewable Tab) 500 mg PO Q6H PRN PRN Reason: Heartburn Stop: 12/17/20 22:01 Last Admin: 11/17/20 22:43 Dose: 500 mg Documented by: Dextrose (Dextrose 50% 50 Ml Syringe) 25 - 50 ml IV UD PRN; Protocol PRN Reason: Hypoglycemia Protocol Stop: 12/16/20 14:45 Glucagon (Glucagon For Inj 1 Mg Vial) 1 mg SQ UD PRN; Protocol PRN Reason: Hypoglycemia Protocol Stop: 12/16/20 14:45 Glucose (Glucose 10 Tabs/Tube) 4 - 8 tabs PO UD PRN; Protocol PRN Reason: Hypoglycemia Protocol Stop: 12/16/20 14:45 Glucose (Glucose 40% Gel 15 Gm Tube) 15 - 30 gm PO UD PRN; Protocol PRN Reason: Hypoglycemia Protocol Stop: 12/16/20 14:45 Ceftriaxone Sodium 2,000 mg/ (Dextrose) 70 mls @ 100 mls/hr IV Q24H LUCIANA; Protocol Stop: 01/04/21 15:59 Insulin Human NPH (Insulin Human Nph) 25 units SC QDD LUCIANA Stop: 12/21/20 16:29 Last Admin: 11/22/20 17:38 Dose: 25 units Documented by: Insulin Human NPH (Insulin Human Nph) 35 units SC QDB LUCIANA Stop: 12/22/20 07:29 Last Admin: 11/23/20 08:49 Dose: 35 units Documented by: Insulin Human Regular (Insulin Human Regular) 0 units SC ACHS LUCIANA Stop: 12/17/20 11:29 Last Admin: 11/23/20 08:48 Dose: 14 units Documented by: Magnesium Hydroxide (Magnesium Hydroxide Susp 30 Ml Udc) 30 ml PO Q12H PRN PRN Reason: Constipation Stop: 12/16/20 14:45 Metronidazole (Metronidazole 500 Mg Tab) 500 mg PO Q8H LUCIANA Stop: 01/04/21 17:59 Miscellaneous (Carbohydrates For Hypoglycemia ) 15 - 30 gm PO UD PRN PRN Reason: Hypoglycemia Protocol Stop: 12/16/20 14:45 Miscellaneous Information (Pharmacy Glycemic Mgmt Consult) 1 ea N/A UD PRN; Protocol PRN Reason: Consult Stop: 12/16/20 14:11 Ondansetron HCl (Ondansetron Inj 2 Mg/Ml 2 Ml Vial) 4 mg IV Q6H PRN PRN Reason: Nausea Stop: 12/16/20 14:45 Polyethylene Glycol (Polyethylene (Miralax) 17 Gm Pack) 17 gm PO DAILY PRN PRN Reason: Constipation Stop: 12/16/20 14:45 Tramadol HCl (Tramadol Hcl 50 Mg Tablet) 25 - 50 mg PO Q4H PRN PRN Reason: Pain Stop: 12/22/20 03:51 Last Admin: 11/23/20 07:08 Dose: 50 mg Documented by: Zolpidem Tartrate (Zolpidem Tartrate 10 Mg Tab) 10 mg PO HS PRN PRN Reason: Insomnia Stop: 12/17/20 20:59 Last Admin: 11/22/20 22:23 Dose: 10 mg Documented by:
--- NOTE | 2020-11-23 14:12 | Discharge Summary ---
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 Patient states he has numbness and is unable to feel his feet, but 2 days ago he noticed significant bleeding coming on the left foot. When he looked down he noticed his foot was turning, "green and black." His left foot continued to get more red and therefore he decided to come to ED. Patient states he lives alone in a trailer. He is noncompliant with his medications as he is only taking Ambien and insulin. He admits to his blood sugars being consistently in the 300s. He denies any fever, chills, sweats, lightheadedness, dizziness, chest pain, shortness of breath, cough, nausea, vomiting, abdominal pain, change in bowel or urinary habits. He states over the last 4 weeks he has had significant decreased appetite. He admits to a 40 pound unintentional weight loss. In ED patient met sepsis criteria secondary to leukocytosis, tachycardia and evidence of left foot wound infection. He received 2 L of IV fluid and was started on IV vancomycin, cefepime and Flagyl. Foot x-ray concerning for soft tissue swelling and soft tissue gas along the lateral aspect of first toe highly suspicious for infection which could be due to a gas-forming organism. Admission Exam Per Admitting Provider Constitutional: WD, unkempt, male, vitals as above, NAD, sitting up in bed, pleasant, conversing easily Head: Normocephalic, Atraumatic Eyes: PERRL, conjunctivae normal, anicteric sclerae ENMT: external ear and nose normal, oropharynx normal Neck: trachea midline, no thyromegaly normal visual inspection Respiratory: normal respiratory effort, lungs clear to auscultation, no wheeze, rales, rhonchi. Normal insp/exp effort, no accessory muscle use Cardiovascular: RRR, no murmur, no edema Vessels: no JVD or carotid bruit Chest: normal inspection of chest Abdomen: normal bowel sounds, soft, nontender, no hepatosplenomegaly Musculoskeletal: no cyanosis or clubbing, moves extremities x4 Skin: Left great toe erythematous, edematous, serosanguineous drainage, dorsal aspect of left great toe with ischemic appearance, cap refill less than 2 seconds, erythema extending to dorsal aspect of left midfoot, no pain to palpation no rashes, warm and dry normal turgor Neurologic: PERRL, EOMI, accommodation nl, no face palsy, no dysarthria CN's II-XI intact bilaterally and moves all extremities Psychiatric: A+Ox3, euthymic affect Lymphatic: no cervical or axillary lymphadenopathy : deferred Principal Diagnosis 1. Complicated left skin ulceration great toe with necrosis of bone. 2. Osteomyelitis of the great toe. 3. Deep infection, second toe. 4. Necrosis of the first and second toes, first metatarsal head and sesamoid bones. 5. Septic tenosynovitis of the second extensor tendon. 6. Uncontrolled DMII Discharge Exam CONSTITUTIONAL: WNWD, vitals as above, generally NAD EYES: normal conjunctivae, no scleral icterus ENT: external ear and nose normal, poor dentition noted with missing teeth NECK: trachea midline RESPIRATORY: clear to auscultation bilaterally, no crackles, rales or wheezes, normal respiratory effort CARDIOVASCULAR: regular rate and rhythm, S1 and 2 heard without murmurs, gallops or rubs, no JVD, no peripheral edema GASTROINTESTINAL: soft, nontender, nondistended. +protuberant MUSCULOSKELETAL: moves independently around the bed with some time, deconditioning present, head is normocephalic and atraumatic, left foot covered with surgical dressing and ACEI, dry and intact. Surgical shoe in place. SKIN: warm and dry, surgical site visualized with packing removed at bedside by ortho PA. Sutures in place, incision sites are closed, no drainage or erythema. NEUROLOGIC: CN 2-12 grossly intact, sensation loss on his feet bilaterally, normal cognition, normal speech, no tremor PSYCHIATRIC: alert cooperative and oriented to person, place and time. Discharge Data Allergies Allergy/AdvReac Type Severity Reaction Status Date / Time amoxicillin Allergy Intermediate sob Verified 11/16/20 13:49 atorvastatin Allergy Intermediate diarrhea Verified 11/16/20 13:49 acetaminophen Allergy Unknown PT STATES Verified 11/16/20 13:49 "IT INTENSIFIES EFFECT" clindamycin Allergy Unknown SHORTNESS Verified 11/16/20 13:49 OF BREATH escitalopram Allergy Unknown GI UPSET Verified 11/16/20 13:49 gabapentin Allergy Unknown CONSTIPATIO Verified 11/16/20 13:49 N insulin aspart Allergy Unknown ALLERGIC Verified 11/16/20 13:49 TO PRESERVATIVES IN NOVOLOG - OK WITH REGULAR/NPH morphine Allergy Unknown DID NOT Verified 11/16/20 13:49 TOLERATE PER PT propoxyphene Allergy Unknown "DID CRAZY Verified 11/16/20 13:49 THINGS" sitagliptin Allergy Unknown UNKNOWN RXN Verified 11/16/20 13:49 adhesive AdvReac Unknown "rips his Verified 11/16/20 13:49 skin off" dextromethorphan AdvReac Unknown HARD TO Verified 11/16/20 13:49 BREATHE? guaifenesin AdvReac Unknown HARD TO Verified 11/16/20 13:49 BREATHE? metformin AdvReac Unknown PT STATES Verified 11/16/20 13:49 "DID NOT WORK" Consultations 11/16/20 13:26 ED Decision to Admit Stat 11/16/20 13:41 Consult Orthopedic Surgery Routine 11/20/20 07:47 Consult Infectious Diseases Routine Procedures Performed Operation Date: 11/20/20 07:30 Actual Procedures p Left Great Toe Amputation, Left 2nd Toe Amputation, Resection first metatarsal head, tenosynovectomy of 2nd extensor tendon, Resection of Sesamoid Bones Great Toe(Left) - Frank Tolliver, DO Ordered Studies Laboratory Results WBC 7.53 K/uL (4.8-10.8) 11/22/20 07:27 RBC 4.48 M/uL (4.7-6.1) L 11/22/20 07:27 Hgb 13.6 g/dL (14.0-18.0) L 11/22/20 07:27 Hct 40.4 % (42-52) L 11/22/20 07:27 MCV 90.2 fL (80-100) 11/22/20 07:27 MCH 30.4 pg (25-34) 11/22/20 07:27 MCHC 33.7 g/dL (32-36) 11/22/20 07:27 RDW Std Deviation 48.3 fL (36.4-46.3) H 11/22/20 07:27 RDW Coeff of Alex 14.6 % (11.5-14.5) H 11/22/20 07:27 Plt Count 314 K/uL (130-400) 11/22/20 07:27 MPV 10.3 fL (7.4-10.4) 11/22/20 07:27 Immature Gran % (Auto) 0.7 % 11/18/20 09:38 Neut % (Auto) 86.6 % 11/18/20 09:38 Lymph % (Auto) 5.5 % 11/18/20 09:38 Douglas % (Auto) 6.6 % 11/18/20 09:38 Eos % (Auto) 0.5 % 11/18/20 09:38 Baso % (Auto) 0.1 % 11/18/20 09:38 Neut # (Auto) 7.50 K/uL (1.4-6.5) H 11/18/20 09:38 Lymph # (Auto) 0.48 K/uL (1.2-3.4) L 11/18/20 09:38 Douglas # (Auto) 0.57 K/uL (0.11-0.59) 11/18/20 09:38 Eos # (Auto) 0.04 K/uL (0-0.5) 11/18/20 09:38 Baso # (Auto) 0.01 K/uL (0-0.2) 11/18/20 09:38 Immature Gran # (Auto) 0.06 K/uL (0.00-0.02) H 11/18/20 09:38 ESR 119 mm/hr (0-20) H 11/16/20 11:58 PT 9.7 Seconds (9.0-12.0) 11/16/20 12:06 INR 1.0 (0.9-1.1) 11/16/20 12:06 APTT 21.6 Seconds (21.0-31.0) 11/20/20 20: PTT Ratio 0.8 11/20/20 20:27 ABG pH 7.49 (7.35-7.45) H 11/20/20 20:27 ABG pCO2 37 mmHg (35-46) 11/20/20 20:27 ABG pO2 73 mmHg (80-95) L 11/20/20 20:27 ABG HCO3 27 mmol/L (19-24) H 11/20/20 20:27 ABG O2 Saturation 95.9 % (90-95) H 11/20/20 20:27 ABG Base Excess 3.8 mEq/L (-9-1.8) H 11/20/20 20:27 Devin Test Pos (Pos) 11/20/20 20:27 Barometric Pressure 737.0 mm/Hg 11/20/20 20:27 Oxygen Given 2L 11/20/20 20:27 Sodium 136 mmol/L (136-145) 11/21/20 09:22 Potassium 3.9 mmol/L (3.5-5.1) 11/21/20 09:22 Chloride 103 mmol/L (98-107) 11/21/20 09:22 Carbon Dioxide 28 mmol/L (21-32) 11/21/20 09:22 Anion Gap 5.0 (3-11) 11/21/20 09:22 BUN 13 mg/dl (7-18) 11/21/20 09:22 Creatinine 0.50 mg/dl (0.6-1.4) L 11/23/20 06:27 Est Cr Clr Drug Dosing 215.3 ml/min 11/23/20 06:27 Est GFR ( Amer) 138.5 ml/min 11/23/20 06:27 Est GFR (Non-Af Amer) 119.5 ml/min 11/23/20 06:27 BUN/Creatinine Ratio 25.5 (10-20) H 11/21/20 09:22 Glucose 273 mg/dl (70-99) H 11/21/20 09:22 POC Glucose 160 mg/dl (70-99) H 11/23/20 12:37 Estimat Average Glucose 387 mg/dl 11/17/20 06:51 Hemoglobin A1c 15.1 % (4.5-5.6) H 11/17/20 06:51 Lactate 1.7 mmol/L (0.4-2.0) 11/20/20 20:27 Calcium 8.7 mg/dl (8.5-10.1) 11/21/20 09:22 Magnesium 2.0 mg/dl (1.8-2.4) 11/20/20 20:27 Total Bilirubin 0.2 mg/dl (0.2-1) 11/17/20 06:51 AST 24 U/L (15-37) 11/17/20 06:51 ALT 12 U/L (12-78) 11/17/20 06:51 Alkaline Phosphatase 85 U/L (45-117) 11/17/20 06:51 Troponin I < 0.015 ng/ml (0-0.045) 11/16/20 Unknown C-Reactive Protein 6.55 mg/dl (0-0.29) H 11/20/20 09:14 Total Protein 5.3 gm/dl (6.4-8.2) L D 11/17/20 06:51 Albumin 1.5 gm/dl (3.4-5.0) L 11/17/20 06:51 Globulin 3.8 gm/dl (2.5-4.0) 11/17/20 06:51 Albumin/Globulin Ratio 0.4 (0.9-2) L 11/17/20 06:51 Beta-Hydroxybutyric Acd 3.67 mg/dl (0.2-2.81) H 11/18/20 09:43 Procalcitonin 0.17 ng/ml (0-0.5) 11/16/20 12:06 TSH 0.963 uIu/ml (0.300-4.500) 11/20/20 20:27 Urine Color Yellow 11/16/20 22:52 Urine Appearance Clear (Clear) 11/16/20 22:52 Urine pH 6.0 (4.5-7.5) 11/16/20 22:52 Ur Specific [place] 1.030 (1.000-1.030) 11/16/20 22:52 Urine Protein 1+ (Negative) H 11/16/20 22:52 Urine Glucose (UA) 3+ (Negative) H 11/16/20 22:52 Urine Ketones 4+ (Negative) H 11/16/20 22:52 Urine Blood Negative (Negative) 11/16/20 22:52 Urine Nitrite Positive (Negative) A 11/16/20 22:52 Urine Bilirubin Negative (Negative) 11/16/20 22:52 Urine Urobilinogen Negative (Negative) 11/16/20 22:52 Ur Leukocyte Esterase Trace (Negative) H 11/16/20 22:52 Urine WBC (Auto) >30 /hpf (0-5) H 11/16/20 22:52 Urine RBC (Auto) 0-4 /hpf (0-4) 11/16/20 22:52 U Hyaline Cast (Auto) 1-5 /lpf (0-5) 11/16/20 22:52 U Epithel Cells (Auto) 0-5 /lpf (0-5) 11/16/20 22:52 Urine Bacteria (Auto) Negative (Negative) 11/16/20 22:52 Nasal Screen MRSA (PCR) Negative (Negative) 11/16/20 18:15 Vancomycin Trough 7.1 mcg/ml (See Comment) 11/20/20 09:14 COVID-19 Eval Order Covid19 IDNow atMMNC 11/23/20 13:25 SARS-CoV-2 (PCR) NEGATIVE (Negative) 11/16/20 12:05 SARS-CoV-2, RNA, NAAT NEGATIVE (NEGATIVE) 11/23/20 13:25 Impressions Foot X-Ray 11/16/20 12:02 XR foot LT 2V CLINICAL HISTORY: 1-2 toe ? osteo. Left first toe swelling. COMPARISON STUDY: None. FINDINGS: No fracture or dislocation within the left foot. There is a plantar heel spur. Soft tissue swelling centered at the first MTP joint and base of the second toe. There is soft tissue gas along the lateral aspect of the first toe. There is 9 mm linear radiopaque foreign body seen along the plantar/medial soft tissues at the level of the head of the first metatarsal. There is also a 3 mm linear metallic foreign body seen at the plantar/medial soft tissues at the level the second metatarsal head. Additional scattered foci of superficial debris also seen along the plantar surface of the forefoot. IMPRESSION: 1. No cortical destruction to suggest osteomyelitis. 2. There is soft tissue swelling and soft tissue gas along the lateral aspect of the first toe. This is highly suspicious for an infection and could be due to a gas-forming organism. 2. There are 2 linear metallic foreign bodies seen within the plantar surface of the left foot at the level of the first and second metatarsal heads as described above. ACT 112: Negative or not required by law. Electronically signed by: Jace Ceballos M.D. 11/16/2020 1:19 PM Foot MRI 11/16/20 14:05 MR foot LT wo/w con CLINICAL HISTORY: Left foot wound. r/o osteomyelitis, gas forming organism COMPARISON STUDY: Left foot radiographs performed earlier today. TECHNIQUE: Utilizing a 1.5 Donita magnet and dedicated coil, multiplanar, multi echo imaging of the left foot was performed pre and postcontrast administration. Intravenous injection of 10 cc of Gadavist was uneventful. FINDINGS: Tarsometatarsal joints are intact. Note is made of several foci of susceptibility artifact adjacent to the left first and second metatarsals. These represent metallic foreign bodies better depicted on radiographs performed earlier today. Artifact from these are foreign bodies compromises visualization of the adjacent soft tissues. There is no marrow edema to suggest osteomyelitis. There is no evidence for acute fracture. Note is made of multiple small T1 and T2 hypointense foci within the left forefoot, most evident between the first and second proximal phalanges. This represents soft tissue gas as shown on radiograph. There is extensive soft tissue edema within the left forefoot. An associated fluid collection measuring 1.2 x 0.6 cm between the first and second metatarsals favors an abscess. There is also fluid adjacent to the second and third metatarsals without significant peripheral enhancement. There is mild increased fluid within the left first metatarsophalangeal joint. IMPRESSION: 1. Extensive soft tissue edema within the left forefoot, most pronounced adjacent to the first, second and third metatarsals with an associated 1.2 cm fluid collection between the first and second metatarsals. The findings suggest cellulitis with an associated abscess. Associated soft tissue gas could be due to underlying wound or represent a gas-forming infectious process. Associated fluid extends along the flexor tendons. 2. No evidence for osteomyelitis. 3. Several foci of susceptibility artifact within the left forefoot which correspond to small metallic foreign bodies, better depicted on radiographs. Artifact from the foreign bodies compromises visualization of the adjacent soft tissues. ACT 112: Negative or not required by law. Electronically signed by: Thomas Hahn M.D. 11/16/2020 6:00 PM Duplex Scan Lower Extremity Artery 11/17/20 14:41 US arterial duplex LE LT HISTORY: 60 years-old Male great toe wound chronic wound of the left foot COMPARISON: MRI left foot 11/16/2020 TECHNIQUE: Lower extremity segmental pressures were obtained in addition to multiple real-time sonographic images of the left lower extremity arterial structures assessing grayscale appearance, color and spectral flow FINDINGS: SEGMENTAL PRESSURES: Right: Brachial-109 (index); dorsalis pedis-129 (1.18); posterior tibial-127 (1.17). NICOLE: 1.1 Left: Brachial-109 (index); dorsalis pedis-143 (1.31); posterior tibial-143 (1.31). NICOLE: 1.31 Triphasic waveforms within the common femoral, profunda femoris, superficial femoral and popliteal arteries. Biphasic waveforms within the peroneal, anterior tibial, posterior tibial and dorsalis pedis arteries. Elevated peak systolic velocities within the dorsalis pedis artery measure up to 325 cm/s. No arterial occlusion. Mild subcutaneous edema. IMPRESSION: 1. No arterial occlusion. 2. Biphasic waveforms in the left calf arteries. 3. Elevated peak systolic velocities within the dorsalis pedis artery compatible with arterial stenosis. ACT 112: Negative or not required by law. The above report was generated using voice recognition software. It may contain grammatical, syntax or spelling errors. Electronically signed by: Herb Hyde M.D. 11/17/2020 6:17 PM Chest X-Ray 11/20/20 19:47 SINGLE VIEW CHEST CLINICAL HISTORY: Hypoxia. FINDINGS: An 2 AP, portable, upright chest radiographs are compared to study dated 11/16/2020 and correlated with chest CT dated 05/24/2020. The examination is degraded by portable technique and patient rotation. The heart is mildly enlarged. The pulmonary vasculature is noncongested. Emphysema and chronic interstitial thickening is similar to previous. Volume loss is again seen in the left lung with elevation of the left hemidiaphragm and fibrosis of the left upper lobe. The right lung appears clear. A vertical skinfold overlies the right lateral chest wall. No large pleural effusion or pneumothorax is seen. The skeletal structures are osteopenic. The bony thorax is grossly intact. IMPRESSION: 1. No acute cardiopulmonary abnormality is identified. 2. Emphysema and chronic parenchymal changes as above, not significantly changed from previous. ACT 112: Negative or not required by law. Electronically signed by: Hero Fair M.D. 11/20/2020 8:[address] 11/23/20 04:[address] DOSE: 614.27 mGy.cm HISTORY: worst migraine headache as per px TECHNIQUE: Multiaxial CT images of the head were performed without the use of intravenous contrast. Automated exposure control was utilized for this study. A dose lowering technique was utilized adhering to the principles of ALARA. Comparison: Head CT 08/07/2020. Findings: The paranasal sinuses and mastoid air cells are clear. The calvarium and skull base are intact. There is no mass, hematoma, midline shift, acute infarct. White matter hypodensity is nonspecific but suggestive of microvascular ischemic change. The ventricles and sulci demonstrate mild age-related involutional changes. 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 Impression: No significant change compared to the prior study. No acute intracranial abnormality. ACT 112: Negative or not required by law. Electronically signed by: Jace Ceballos M.D. 11/23/2020 7:17 AM Diabetes Follow up Diabetes Follow-up Needed for HgbA1c >9% Hospital Course (1) Sepsis: (2) Diabetic foot ulcer with osteomyelitis: (3) Osteomyelitis of great toe of left foot: (4) Insulin dependent type 2 diabetes mellitus: (5) Diabetic peripheral neuropathy: (6) Depression with anxiety: (7) Smoking: The patient is a 60 year old uncontrolled diabetic man with complications of peripheral neuropathy who presented with sepsis 2/2 worsening diabetic foot infection over the past couple of days. He was resuscitated and placed on IV flagyl, cefepime and vancomycin. A foot MRI was performed revealing no evidence for osteomyelitis, but with suggestion of a cellulitis with a possible associated abscess. Orthopedic surgery was consulted. Blood and urine cultures were obtained and revealed no growth. He underwent a left great toe amputation, left second toe amputation, resection of the first metatarsal head, tenosynovectomy of the second extensor tendon, and resection of sesamoid bones x2 of the left great toe by Dr. Jamin Tolliver on 11/20/2020. Post-operative diagnosis included (1) skin ulcer of the left great toe with necrosis of bone, (2) osteomyelitis of the great toe of the left foot, (3) deep infection second toe left foot, (4) necrosis of the first toe, second toe and first metatarsal head, (5) septic tenosynovitis of the second extensor tendon. He had an uneventful post-operative recovery. Foot wound grew MSSA and Proteus mirabilis. Based on infectious disease recommendations, flagyl was continued, and cefepime was changed to ceftriaxone which will be continued for an additional two weeks, or longer if the CRP is still >1mg/dL. He was discharged in stable condition to [facility] with close primary care follow-up recommended as HbA1C>15. Optimal control of diabetes will need to be achieved as well as continued management of complications. He will need to change his lifestyle and be encouraged to do this including smoking cessation. Orthopedics and possibly longer follow-up by wound care will be needed to ensure complete recovery in the setting of known peripheral neuropathy. Of note, multiple medications were "discontinued" at time of discharge; these were things he had been noncompliant with for some time and chose to not restart. Total Time Total Time Spent Total Time Spent (In Minutes): 60 Discharge Plan Discharge Items Patient Disposition: Transfer Halfway Fac Reason For Visit: L FOOT WOUND Discharge Diagnosis: 1. Complicated left skin ulceration great toe with necrosis of bone. 2. Osteomyelitis of the great toe. 3. Deep infection, second toe. 4. Necrosis of the first and second toes, first metatarsal head and sesamoid bones. 5. Septic tenosynovitis of the second extensor tendon. 6. Uncontrolled, diabetes mellitus, type II. Condition on Discharge: Good Activity: Resume your previous activity Weightbearing: Left non-weightbearing Non-emergency contact: Surgeon Call non-emergency contact if: your pain is not controlled, your temperature is above 101.5, your wound has increased redness and your wound has increased drainage Follow-up/Referrals: [facility] [Other] - 01/11/21 9:40 am (Date & Time 01/11/2021 9:40 AM Provider Yogesh Ritchie DO Department Infectious Disease [facility] ) Frank Tolliver DO [Surgeon] - (Follow up appointment in 10 days. ) Efraín Zamudio MD [Primary Care Provider] - Diet: Carb Consistent or DM2 Addtl Attending Provider Instructions: Please take all medications as instructed on discharge list below. You are being placed on ceftriaxone 2 grams intravenously once daily for two weeks. You should have weekly lab draws to include CBC with diff, CMP and CRP. If the CRP remains >1, continue with antibiotic therapy and continue to check weekly weekly CRP until this trends down to <1. Please complete additional oral antibiotic given. Please follow all post-operative instructions and followup with orthopedics as instructed. It is recommended that you follow-up with your primary care provider within one week of discharge to discuss your plan for optimizing diabetes therapy. This is very uncontrolled and without good control of blood sugar, your wounds may not heal properly, along with other adverse events. Your insulin is being adjusted to Novolin 70/30, 45 Units subcutaneous injection twice daily with meals. Frequent blood sugar checks and close follow-up with your provider will be needed to optimize this dosing for you. It was a pleasure taking care of you! Please call if you have any questions or problems. You can reach a [facility] hospitalist on duty at [facility] 24 hours a day by calling [phone]. Take care of yourself. Ruby Rodriguez, [facility] Hospitalist Addtl Emergency Services Director Provider Instructions: You must remain non weightbearing on the left foot. Change dressings daily. Use adaptic, 4x4's, ABD's, kerlix wrap, and yolette wrap. Draining on the dressing is normal. Please call the office if you notice increased drainage, a change in the drainage type (serous to purulent), if you have a temp of 101.5 or greater, increased pain or redness around the wound. Follow up with Dr Tolliver or his PA Man Espinosa in 10 days. Call for an appointment. [phone] Pending Studies at Discharge: No Stand-Alone Forms: My [facility] Skilled Items Patient informed of condition?: Yes DNR: No Discharge Level of Care: Skilled Communicable Disease: No Discharge Prognosis: Stable Lines: US Guided Peripheral IV Urinary Catheter: No Medications and DC Order Prescriptions: New metronidazole 500 mg Tablet 500 mg PO Q8H Qty: 42 RF: 0 ceftriaxone 2 gram recon soln 2 g IV DAILY Qty: 14 RF: 0 Novolin 70-30 FlexPen U-100 100 unit/mL (70-30) insulin pen 45 unit subcut BID Qty: 15 RF: 0 tramadol 50 mg tablet 50 mg PO Q12H PRN (Reason: pain) Qty: 20 RF: 0 Continued zolpidem 10 mg tablet 10 mg PO HS RF: 0 diphenhydramine HCl [Benadryl] 25 mg Capsule 25 mg PO Q6H PRN (Reason: itching) Qty: 0 RF: 0 Discontinued rosuvastatin [Crestor] 5 mg tablet 20 mg PO DAILY RF: 0 garlic 400 mg tablet,delayed release (DR/EC) 400 mg PO DAILY RF: 0 phenylephrine HCl [Reyes-Synephrine (phenylephrine)] 0.25 % spray,non-aerosol 1 sprays INTNAS Q8H PRN (Reason: nasal congestion) RF: 0 Humulin R Regular U-100 Insuln 100 unit/mL solution 35 units SQ QID Qty: 130 RF: 1 (DME) blood sugar diagnostic [Contour Next Test Strips] Strip See Rx Instructions .ROUTE .MEDSUPPLY Qty: 800 RF: 1 (DME) lancets 31 gauge misc See Rx Instructions .ROUTE .MEDSUPPLY Qty: 800 RF: 3 lorazepam 0.5 mg tablet 0.5 mg PO .Q2-4H PRN (Reason: Anxiety) RF: 0 magnesium oxide 500 mg Tablet 250 mg PO DAILY RF: 0 vitamin E 400 unit Capsule 400 unit PO BID RF: 0 diclofenac sodium 1 % gel 1 ea TOPICAL HS PRN (Reason: Pain) RF: 0 cholecalciferol (vitamin D3) 125 mcg (5,000 unit) Tablet 125 mcg PO DAILY RF: 0 fluticasone propionate 50 mcg/actuation spray,suspension 2 spray INTRANASAL DAILY RF: 0 quetiapine 25 mg tablet 25 mg PO BID RF: 0 cyclobenzaprine 10 mg tablet 10 mg PO DAILY RF: 0 lisinopril 2.5 mg Tablet 2.5 mg PO QAM Qty: 30 RF: 0 oxycodone 5 mg Tablet 5 mg PO Q8H PRN (Reason: pain) Qty: 30 RF: 0 famotidine 20 mg Tablet 20 mg PO QAM Qty: 0 RF: 0 melatonin 3 mg Tablet 3 mg PO HS PRNQty: 0 RF: 0 Anti-Itch(diphenhyd) with Zinc 2-0.1 % Cream 1 applic EXT BID PRNQty: 0 RF: 0 ibuprofen 600 mg Tablet 600 mg PO UD Qty: 0 RF: 0 metoprolol succinate 25 mg tablet extended release 24 hr 25 mg PO DAILY RF: 0 pantoprazole 40 mg tablet,delayed release (DR/EC) 40 mg PO DAILY RF: 0 aripiprazole 5 mg tablet 5 mg PO DAILY RF: 0 Discharge Orders: Discharge Order (Routine); Ordered 11/23/20 Ordered By: Ruby Sanchez/Other Patient Handouts: DVT Post Op Prevention, Managing Type 2 Diabetes Admission Data Admit Date/Time: 11/16/20 13:41 Attending Provider: Ruby Rodriguez Admit Provider: Lucy Jung Primary Care Provider: Efraín Zamudio Other Providers: [place] ; Lucy Jung ; Frank Tolliver ; Alonso Cornell ; Alley Goodwin ; Jeffery Santos I. ; Harris Berg II ; Jade Swann ; Sunday Desouza Other Interventions: Discharge Summary Assessment (RN) Last Done: 11/23/20 15:02
[2020-11-23 15:04] VITALS: BP 101/65; PULSE 118
[2020-11-23] MEDS ORDERED: cefTRIAXone SODIUM 2,000 MG in DEXTROSE 5% 50 ML IV SCH (16:00)
[2020-11-23] MEDS ORDERED: metroNIDAZOLE 500 MG TAB PO SCH (18:00)
== END 2020-11-23 15:39 | DRG 853 ==
LOC: ED 11:23 → 2S 13:41 → SUATTDRO 13:41 → 2S 14:11 → 3W 11-20 06:45

== ENCOUNTER 2022-07-11 14:34 | Inpatient (IN) ==
--- NOTE | 2022-07-11 14:50 | ED Triage Note ---
Date of Service July 11, 2022 History of Present Illness This patient was briefly evaluated while in triage. An abbreviated physical exam was performed. This patient is a 61-year-old Male who presents to the ED for evaluation of chronic left foot wound. He was sent here by his PCP for concerns of worsening infection. Denies fever, chills, increasing drainage or pain of area. Physical Exam Constitutional: alert and oriented x3. no acute distress. Respiratory: lungs are clear to auscultation without wheezes, rhonchi, or rales bilaterally. equal chest rise. normal respiratory effort, no accessory muscle use. Cardiovascular: normal heart sounds without murmur. regular rate and rhythm. Psych:appropriate mood and affect. Initial orders for labs and / or imaging were placed and patient was placed in the waiting area until a bed is available. Please see further documentation for the full ED course.
[2022-07-11] MEDS ORDERED: cefTRIAXone SODIUM 2,000 MG/70 ML BAG IV STA (15:45)
[2022-07-11] MEDS ORDERED: SODIUM CHLORIDE 0.9% 1000ML 2,000 ML IV ONE (15:47)
--- NOTE | 2022-07-11 15:47 | Emergency Department Note ---
Impression & Plan Osteomyelitis, Cellulitis, Insulin dependent type 2 diabetes mellitus ED Provider Note NAME: LAVERNE BRADY AGE: 61 SEX: M : 1960 ARRIVES VIA: Walk-In INFORMANT: Patient ED PROVIDER(S): Nico Gatica DO CHIEF COMPLAINT: wound on foot HPI: Patient is a 61-year-old male who presents to the ER with a past medical history of diabetes for left foot infection. He notes this has been present for the past several days. He denies any headache or change in vision. No fevers. No chest pain or shortness of breath. He notes he saw his PCP and referred him over. He has had 2 previous toes amputated the first and second. He believes that this has only been present for the past 48 hours. Does admit to redness and streaking up the leg. PAST MEDICAL HISTORY:See Below PAST SURGICAL HISTORY:See Below FAMILY HISTORY:See Below SOCIAL HISTORY:See Below HOME MEDICATIONS:See Below ALLERGIES:See Below VITALS:See Below PHYSICAL EXAMINATION: GENERAL: Sitting up in bed, alert, well appearing, well nourished, no distress, non-toxic EYE EXAM: normal conjunctiva. PERRL and EOM's grossly intact. OROPHARYNX: no exudate, no erythema, lips, buccal mucosa, and tongue normal and mucous membranes are moist NECK: supple, no nuchal rigidity, no adenopathy, non-tender LUNGS: Clear to auscultation. Normal chest wall mechanics HEART: no murmurs, S1 normal and S2 normal ABDOMEN: abdomen soft, non-tender, normo-active bowel sounds, no masses, no rebound or guarding. UPPER EXTREMITIES: upper extremities are grossly normal. LOWER EXTREMITIES: Left foot with first and second toes amputated. Third is erythematous with drainage and discharge and a black ulcer on the distal aspect plantar surface. Erythematous streaking up and including the entire midfoot. NEURO EXAM: Normal sensorium, cranial nerves II-XII grossly intact, normal speech, no gross weakness of arms, no gross weakness of legs. MEDICAL DECISION MAKING: Patient is a 61-year-old male who presents ER for the above-stated complaint. IV was established blood work was obtained. External records were reviewed. Labs show mild leukocytosis 11,000. No significant anemia. BMP along with LFTs bilirubin was unremarkable. COVID was negative. X-ray suggest osteo of the left third distal toe. Patient was given IV vancomycin as well as IV cefepime due to previous cultures. He was updated bedside. Discussed with the hospitalist ED from [facility] and patient was admitted. Triage Nursing notes reviewed. Limited review of prior medical records performed Vital Signs: reviewed and remarkable for tachy Differential diagnosis: Cellulitis, abscess, MRSA infection, DVT, necrotizing fasciitis, dermatitis, drug eruption, allergic reaction, as well as other pathologies. ER treatment provided: See below Diagnostics interpreted by me include EKG and cardiac monitoring as listed below: -Cardiac Monitoring: An order was placed for continuous cardiac monitoring. The monitor shows a rate of 90 with sinus rhythm. -ECG: none -Laboratory studies:Interpreted by me as stated above in MDM and shown below. Imaging studies: Xrays: As interpreted by me: X-ray left foot shows likely osteo of the third distal toe CTs show: none Consultation(s): As described in MDM Procedures:none Critical Care: [None] Past Med/Surg History Medical History Afib No anticoagulation Pt states a fib was secondary to previous pericardial effusion Anxiety Chronic back pain Chronic headaches Following with neuro Chronic ulcer of left foot Pt denies any current issues- resolved COPD (chronic obstructive pulmonary disease) COPD (chronic obstructive pulmonary disease) Breathing stable No oxygen needed Depression Depression with anxiety Diabetic foot ulcer with osteomyelitis Diabetic peripheral neuropathy DKA, type 2 DVT of upper extremity (deep vein thrombosis) Poor historian - unsure of when dx'ed DVT prophylaxis HLD (hyperlipidemia) HTN (hypertension) Hyperlipidemia Hypertension Insomnia Insomnia Insulin dependent type 2 diabetes mellitus Glucose improving Neuropathy To bilateral feet Open wound of left great toe Osteomyelitis No current issues Osteomyelitis of great toe of left foot Partial nontraumatic amputation of left foot Pericardial effusion Resolved per May 2020 ECHO per cardio records Follows with cardio Post laminectomy syndrome Post traumatic stress disorder Pulmonary emboli Was on Lovenox in the past but stopped due to brain hemorrhage Sepsis Skin ulcer of left great toe with necrosis of bone Small cell lung cancer With mets to the brain- dx'ed 2017- s/p XRT No current issues Smoking Surgical History History of back surgery x4 History of hernia surgery x4 History of knee surgery Right knee- has ligaments removed- has to wear brace or knee locates History of surgery Pericardiocentesis Nov 2019 Social History Smoking Status: Current some day smoker Tobacco Type: Cigarettes packs per day: 1; Cigarettes Per Day: 1.5packs/days x 40 years (intermittently); Second Hand Exposure: No; Hx Alcohol Use: No Hx Substance Use: No Preferred Language: Citizen Of [place] Communication Ability: Effective Communication Ability Comment: alert and oriented x3 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 [employer] Consultant Required: No Beliefs That Will Affect Care: None marital status: Current Living Situation: Alone Current Living Situation Comment: Currently at [facility] current occupational status: disabled Feels Safe at Home: Yes Safety Concerns: Feels Safe At This Time caffeine: Yes during the past year weight has: remained stable Physical Activity Frequency: Does not Exercise Gender Identity: Male Assistive Devices: Cane Allergies Allergies Allergy/AdvReac Type Severity Reaction Status Date / Time clindamycin Allergy Severe SHORTNESS Verified 07/11/22 16:52 OF BREATH dextromethorphan Allergy Severe HARD TO Verified 07/11/22 16:52 BREATHE? guaifenesin Allergy Severe HARD TO Verified 07/11/22 16:52 BREATHE? amoxicillin Allergy Intermediate SHORTNESS Verified 07/11/22 16:52 OF BREATH insulin aspart Allergy Unknown ALLERGIC Verified 07/11/22 16:52 TO PRESERVATIVES IN NOVOLOG - OK WITH REGULAR/NPH sitagliptin Allergy Unknown UNKNOWN RXN Verified 07/11/22 16:52 adhesive AdvReac Intermediate "rips his Verified 07/11/22 16:52 skin off" atorvastatin AdvReac Intermediate diarrhea Verified 07/11/22 16:52 duloxetine AdvReac Intermediate Abdominal Verified 07/11/22 16:52 Pain escitalopram AdvReac Intermediate GI UPSET Verified 07/11/22 16:52 gabapentin AdvReac Intermediate CONSTIPATIO Verified 07/11/22 16:52 N propoxyphene AdvReac Intermediate "DID CRAZY Verified 07/11/22 16:52 THINGS" tizanidine AdvReac Intermediate Diarrhea Verified 07/11/22 16:52 metformin AdvReac Unknown PT STATES Verified 07/11/22 16:52 "DID NOT WORK" Home Meds Home Medications Medication Instructions Recorded Confirmed rizatriptan 10 mg tablet 10 mg PO DIRECTED PRN Migraine 04/18/21 07/11/22 Headache rosuvastatin 40 mg tablet 40 mg PO HS 04/18/21 07/11/22 albuterol sulfate 90 mcg/actuation 2 puff inhalation Q4H PRN Wheezing 07/11/22 07/11/22 aerosol inhaler (ProAir HFA) melatonin 5 mg tablet 5 mg PO HS PRN Insomnia 07/11/22 07/11/22 semaglutide 1 mg/dose (4 mg/3 mL) 1 mg subcut WK 07/11/22 07/11/22 subcutaneous pen injector (Ozempic) trazodone 50 mg tablet 25 mg PO HS 07/11/22 07/11/22 zolpidem 5 mg tablet 5 mg PO HS PRN Sleep 07/11/22 07/11/22 Results & Data (ED) Vital Signs Vital Signs - 24 hr 07/11/22 14:48 07/11/22 16:42 Temperature 37 C Temperature Source Temporal Artery Scan Pulse Rate 120 H Pulse Rate [Finger] 104 H Respiratory Rate 18 20 Respiratory Effort / Characteristics Non-Labored Spontaneous Respiratory Depth Normal Normal Respiratory Pattern Regular Blood Pressure 128/86 Blood Pressure [Right Arm] 113/75 Blood Pressure Mean 100 Blood Pressure Mean [Right Arm] 87 Blood Pressure Position Sitting Pulse Oximetry 98 98 Oxygen Delivery Method Room Air Room Air Sepsis Recent Fever Within 48 Hours No Sepsis New/Unexplained Change in Mental Status N/A Sepsis Action Taken by Nursing No Action Required Laboratory Data 07/11/22 15:51 07/11/22 15:51 Lab Results 07/11/22 07/11/22 Range/Units 15:51 15:51 WBC 11.17 H (4.8-10.8) K/ul RBC 4.99 (4.70-6.10) M/uL Hgb 15.7 (14.0-18.0) g/dl Hct 46.2 (42.0-52.0) % MCV 92.6 (80.0-100.0) fL MCH 31.5 (25.0-34.0) pg MCHC 34.0 (32.0-36.0) g/dL RDW Std Deviation 42.9 (36.4-46.3) fL RDW Coeff of Alex 12.6 (11.5-14.5) % Plt Count 287 (130-400) K/uL MPV 10.8 (9.4-12.4) fL Immature Gran % (Auto) 0.5 % Neut % (Auto) 81.8 % Lymph % (Auto) 8.7 % [place] % (Auto) 7.3 % Eos % (Auto) 1.3 % Baso % (Auto) 0.4 % Neut # (Auto) 9.14 H (1.40-6.50) K/uL Lymph # (Auto) 0.97 L (1.2-3.4) K/uL [place] # (Auto) 0.81 H (0.11-0.59) K/uL Eos # (Auto) 0.14 (0-0.50) K/uL Baso # (Auto) 0.05 (0-0.2) K/uL Immature Gran # (Auto) 0.06 (0.01-0.20) K/uL Sodium 141 (136-145) mmol/L Potassium 4.1 (3.5-5.1) mmol/L Chloride 101 (98-107) mmol/L Carbon Dioxide 34 H (21-32) mmol/L Anion Gap 6 (3-11) BUN 13 (6-23) mg/dl Creatinine 0.68 (0.6-1.4) mg/dl Est Cr Clr Drug Dosing 143.6 ml/min Est GFR ( Amer) 121.2 ml/min Est GFR (Non-Af Amer) 104.5 ml/min BUN/Creatinine Ratio 19.1 (10-20) Glucose 184 H (70-99(Fasting)) mg/dl Calcium 9.9 (8.6-10.3) mg/dl Total Bilirubin 0.3 (0.2-1.0) mg/dl AST 29 (13-39) U/L ALT 13 (7-52) U/L Alkaline Phosphatase 62 (34-104) U/L Total Protein 7.1 (6.0-8.3) gm/dl Albumin 3.3 L (3.4-5.0) gm/dl Globulin 3.8 (2.5-4.0) gm/dl Albumin/Globulin Ratio 0.9 (0.9-2) Administered Medications Discontinued Medications Sodium Chloride (Nss 1000ml) 2,000 mls @ 999 mls/hr IV .Q2H1M ONE Stop: 07/11/22 17:47 Last Infusion: 07/11/22 18:48 Dose: 0 mls/hr Documented By: Admin: 07/11/22 16:41 Dose: 999 mls/hr Documented By: Vancomycin HCl 2,000 mg/ (Sodium Chloride) 540 mls @ 200 mls/hr IV NOW ONE; Protocol Stop: 07/11/22 19:26 Last Admin: 07/11/22 17:01 Dose: 200 mls/hr Documented By: Cefepime HCl (Maxipime) 2,000 mg in 20 mls @ 5 mls/min IV NOW STA; Protocol Stop: 07/11/22 16:35 Last Admin: 07/11/22 16:41 Dose: 5 mls/min Documented By: Insulin Human Regular (Insulin Regular 100 Units/Ml Pen) 0 units SC ACHS LUCIANA; Protocol Stop: 08/10/22 18:29 Last Admin: 07/11/22 18:17 Dose: Not Given Documented By: Ioversol (Optiray 350 100ml) 84 ml IV ONCE ONE Stop: 07/11/22 19:31 Last Admin: 07/11/22 19:30 Dose: 84 ml Documented By: MARIA LUZ Imaging Data Radiologist's Impression: Foot X-Ray 07/11/22 14:50 XR foot LT min 3V routine CLINICAL HISTORY: Chronic foot wound. COMPARISON: Left foot radiographs and MRI of the left foot November 16, 2020. FINDINGS: Tarsometatarsal joints are intact. Note is made of interval amputation of the first digit at the level of the distal shaft of the first metatarsal. There is amputation of the left second toe. Several metallic foreign bodies are again noted. These were present on prior exam. There is third toe soft tissue swelling. Erosion of the majority of the left third distal phalanx is noted. This is new since prior CT. There is also mild erosion of the medial aspect of the left second metatarsal head. There are no acute fractures. IMPRESSION: 1. Interval left first and second digit amputations, as described above. Erosion of the left second metatarsal head. This suggests age indeterminate osteomyelitis. 2. Erosion of the majority of the left third distal phalanx with soft tissue swelling. This is suggestive of acute osteomyelitis. 3. No acute fracture within the left foot. 4. Redemonstration of multiple metallic foreign bodies within the plantar aspect of the left foot. ACT 112: Negative or not required by law. Electronically signed by: Thomas Hahn M.D. 07/11/2022 5:40 PM Discharge Plan Visit Data Chief Complaint: Infection Stated Complaint: foot infection ED Provider: Nico Gatica Discharge Problem: Osteomyelitis, Cellulitis, Insulin dependent type 2 diabetes mellitus Patient Disposition: Admitted As Inpatient Discharge Instructions Interventions: ED Discharge Assessment Last Done: 07/11/22 17:41
[2022-07-11 16:22] LABS: Basophils # (auto) 0.05 K/uL (0-0.2); Basophils % (auto) 0.4 %; Eosinophils # (auto) 0.14 K/uL (0-0.50); Eosinophils % (auto) 1.3 %; Hematocrit (blood only) 46.2 % (42.0-52.0); Hemoglobin 15.7 g/dl (14.0-18.0); Immature Granulocytes # (auto) 0.06 K/uL (0.01-0.20); Immature Granulocytes % (auto) 0.5 %; Lymphocytes # (auto) 0.97 K/uL (1.2-3.4); Lymphocytes % (auto) 8.7 %; Mean Corpuscular Hemoglobin 31.5 pg (25.0-34.0); Mean Corpuscular Volume 92.6 fL (80.0-100.0); Mean Platelet Volume 10.8 fL (9.4-12.4); Monocytes # (auto) 0.81 K/uL (0.11-0.59); Monocytes % (auto) 7.3 %; Neutrophils # (auto) 9.14 K/uL (1.40-6.50); Neutrophils % (auto) 81.8 %; Platelet Count 287 K/uL (130-400); RDW Coefficient of Variation 12.6 % (11.5-14.5); RDW Standard Deviation 42.9 fL (36.4-46.3); Red Blood Count 4.99 M/uL (4.70-6.10); White Blood Count 11.17 K/ul (4.8-10.8)
[2022-07-11 16:28] LABS: Albumin Globulin Ratio 0.9 (0.9-2); Albumin Level 3.3 gm/dl (3.4-5.0); BUN Creatinine Ratio 19.1 (10-20); Bilirubin,Total 0.3 mg/dl (0.2-1.0); Calcium 9.9 mg/dl (8.6-10.3); Creatinine Clr Calc Pharmacy 143.6 ml/min; Est GFR (African American) 121.2 ml/min; Est GFR (Non-African American) 104.5 ml/min; Globulin 3.8 gm/dl (2.5-4.0); Potassium 4.1 mmol/L (3.5-5.1); Total Protein 7.1 gm/dl (6.0-8.3)
[2022-07-11] MEDS ORDERED: CEFEPIME 2,000 MG/20 ML VIAL IV STA (16:32)
[2022-07-11] MEDS ORDERED: VANCOMYCIN HCL 2,000 MG in SODIUM CHLORIDE 0.9% 500 ML IV ONE (16:45)
[2022-07-11] MEDS ORDERED: ONDANSETRON INJ 2 MG/ML 2 ML VIAL IV PRN (17:19)
[2022-07-11] MEDS ORDERED: GLUCOSE 10 TAB/TUBE PO PRN (17:19)
[2022-07-11] MEDS ORDERED: PHARMACY GLYCEMIC MGMT CONSULT PRN (17:19)
[2022-07-11] MEDS ORDERED: GLUCAGON FOR INJ 1 MG VIAL SQ PRN (17:19)
[2022-07-11] MEDS ORDERED: GLUCOSE 40% GEL 15 GM TUBE PO PRN (17:19)
[2022-07-11] MEDS ORDERED: POLYETHYLENE (MIRALAX) 17 GM PACK PO PRN (17:19)
[2022-07-11] MEDS ORDERED: DEXTROSE 50% 50 ML SYRINGE IV PRN (17:19)
[2022-07-11] MEDS ORDERED: ALUMINUM/MAGNESIUM SUSP 30 ML UDC PO PRN (17:19)
[2022-07-11] MEDS ORDERED: MAGNESIUM HYDROXIDE SUSP 30 ML UDC PO PRN (17:19)
[2022-07-11] MEDS ORDERED: CARBOHYDRATES FOR HYPOGLYCEMIA PO PRN (17:19)
--- NOTE | 2022-07-11 17:27 | History & Physical Report ---
Date of Service July 11, 2022 Assessment & Plan (1) Wound of left foot: (2) Uncontrolled type II diabetes mellitus: (3) Small cell lung cancer: (4) Insulin dependent type 2 diabetes mellitus: (5) Depression with anxiety: (6) HTN (hypertension): (7) HLD (hyperlipidemia): Plan Mr. Carcamo is a disheveled 61 y/o presented to the [facility] from his PCP office with complaints of pain swelling and redness on his left leg and foot. He has purulent drainage noted on his left third toe with lymphangetic streaks on the distal 2/3 of his left foot. Left foot x-ray suggests age indeterminate osteomyelitis and erosion of the majority of the left third distal phalanx with soft tissue swelling; suggestive of acute osteomyelitis. Pt states that his pain started about two days ago. He does have a vertical 1 cm laceration on the mid-plantar portion of his foot that he said occurred yesterday when he stepped on a piece of glass. He denies having recent fever or chills. Pt does have palpable pedal pulses bilaterally. Pt does not appear toxic; without leukocytosis, afebrile, no tachycardia. He has a history of 1st and 2nd toe amputations. Additional PMH includes: SCLCA with brain metastasis diagnosed in 2018 s/p chemotherapy and radiation treatment (under the care of Dr. Gale, but has not had recent follow up), H/O of PE (was on Lovenox but discontinued due to ICH), depression and anxiety, IDDM2, AF, HTN, HLD, and GERD. Wound of left foot: + pain, swelling and redness on his left foot. Does not appear toxic; afebrile, no leukocytosis, slight tachycardia 104; suspect for pain + purulent drainage noted on his left third toe with lymphangitic streaks on the distal 2/3 of his left foot. Left foot x-ray suggests age indeterminate osteomyelitis and erosion of the majority of the left third distal phalanx with soft tissue swelling; suggestive of acute osteomyelitis. vertical 1 cm laceration on the mid-plantar portion of his foot that he said occurred yesterday when he stepped on a piece of glass. left foot CT with contrast pending ED started Cefepime + Vanco ; continue and adjust based on ID consult ID consult placed MRSA screen pending TDAP ordered WOCN consult Ortho consult Uncontrolled type 2 diabetes mellitus: A1C 06/28/22: 7.0 Denies using SSI; takes Ozempic; last dose on Sunday Place on FSBS ACHS SSI; Glycemic consult for management of Lantus Small cell lung CA: with brain metastasis diagnosed in 2018 s/p chemotherapy and radiation treatment under the care of Dr. Gale, but has not had recent follow up No home supplemental O2 Depression with anxiety: Tobacco use: Recent loss of a 2 year old son; elevated his anxiety; began smoking cigarettes again HTN: Normotensive in ED. Not on any home medications for BP HLD: Takes Rosuvastatin; continue Lipid panel: 06/28/22: TG 271, HDL 36, LDL 164 H/O of PE: was on Lovenox but discontinued due to ICH, unknown date Disposition: PCP: Dr. Zamudio CODE STATUS: Full code VTE prophylaxis: Teds and SCDs for now I spent a total of 88 minutes coordinating, documenting, and providing care for this patient excluding time spent in the performance of separately billed services. All of the aforementioned completed while collaborating with the assigned attending physician for a full treatment plan. Please see their addendum for further details. History of Present Illness Chief Complaint: cellulitis Primary Care Provider: Efraín Zamudio MD Mr. Carcamo is a disheveled individual that presented to the [facility] from his PCP office with complaints of pain swelling and redness on his left leg and foot. He has purulent drainage noted on his left third toe with lymphangetic streaks on the distal 2/3 of his left foot. Left foot x-ray suggests age indeterminate osteomyelitis and erosion of the majority of the left third distal phalanx with soft tissue swelling; suggestive of acute osteomyelitis. Pt states that his pain started about two days ago. He does have a vertical 0.5 inch laceration on the mid-plantar portion of his foot that he said occurred yesterday when he stepped on a piece of glass. He denies having recent fever or chills. Pt does have palpable pedal pulses bilaterally. Pt does not appear toxic; without leukocytosis, afebrile, no tachycardia. He has a history of 1st and 2nd toe amputations. Additional PMH includes: SCLCA with brain metastasis diagnosed in 2018 s/p chemotherapy and radiation treatment (under the care of Dr. Gale, but has not had recent follow up), H/O of PE (was on Lovenox but discontinued due to ICH), depression and anxiety, IDDM2, AF, HTN, HLD, and GERD. Patient was ambulating back to his bed from the bathroom when I entered the room with a cane for an assisted device. Pt is AAOx4 and able to answer questions appropriately. Pt denies DELEON, dizziness, palpitations, visual or auditory changes, abdominal pain, N/V/D, recent falls. He reports that his appetite is good and he is drinking adequate amt of water. Pt reports that he has started smoking cigarettes again over the past few months. Reports social drinking of [employer] iced teas (one per week), no recreational drug use. Patient will be admitted for further evaluation and management. Please see A/P for further details. Allergies Allergy/AdvReac Type Severity Reaction Status Date / Time clindamycin Allergy Severe SHORTNESS Verified 07/11/22 16:52 OF BREATH dextromethorphan Allergy Severe HARD TO Verified 07/11/22 16:52 BREATHE? guaifenesin Allergy Severe HARD TO Verified 07/11/22 16:52 BREATHE? amoxicillin Allergy Intermediate SHORTNESS Verified 07/11/22 16:52 OF BREATH insulin aspart Allergy Unknown ALLERGIC Verified 07/11/22 16:52 TO PRESERVATIVES IN NOVOLOG - OK WITH REGULAR/NPH sitagliptin Allergy Unknown UNKNOWN RXN Verified 07/11/22 16:52 adhesive AdvReac Intermediate "rips his Verified 07/11/22 16:52 skin off" atorvastatin AdvReac Intermediate diarrhea Verified 07/11/22 16:52 duloxetine AdvReac Intermediate Abdominal Verified 07/11/22 16:52 Pain escitalopram AdvReac Intermediate GI UPSET Verified 07/11/22 16:52 gabapentin AdvReac Intermediate CONSTIPATIO Verified 07/11/22 16:52 N propoxyphene AdvReac Intermediate "DID CRAZY Verified 07/11/22 16:52 THINGS" tizanidine AdvReac Intermediate Diarrhea Verified 07/11/22 16:52 metformin AdvReac Unknown PT STATES Verified 07/11/22 16:52 "DID NOT WORK" Home Medications Medication Instructions Recorded Confirmed Type rizatriptan 10 mg tablet 10 mg PO DIRECTED PRN Migraine 04/18/21 07/11/22 History Headache rosuvastatin 40 mg tablet 40 mg PO HS 04/18/21 07/11/22 History albuterol sulfate 90 mcg/actuation 2 puff inhalation Q4H PRN Wheezing 07/11/22 07/11/22 History aerosol inhaler (ProAir HFA) melatonin 5 mg tablet 5 mg PO HS PRN Insomnia 07/11/22 07/11/22 History semaglutide 1 mg/dose (4 mg/3 mL) 1 mg subcut WK 07/11/22 07/11/22 History subcutaneous pen injector (Ozempic) trazodone 50 mg tablet 25 mg PO HS 07/11/22 07/11/22 History zolpidem 5 mg tablet 5 mg PO HS PRN Sleep 07/11/22 07/11/22 History Past Med/Surg History Medical History Afib No anticoagulation Pt states a fib was secondary to previous pericardial effusion Anxiety Chronic back pain Chronic headaches Following with neuro Chronic ulcer of left foot Pt denies any current issues- resolved COPD (chronic obstructive pulmonary disease) COPD (chronic obstructive pulmonary disease) Breathing stable No oxygen needed Depression Depression with anxiety Diabetic foot ulcer with osteomyelitis Diabetic peripheral neuropathy DKA, type 2 DVT of upper extremity (deep vein thrombosis) Poor historian - unsure of when dx'ed DVT prophylaxis HLD (hyperlipidemia) HTN (hypertension) Hyperlipidemia Hypertension Insomnia Insomnia Insulin dependent type 2 diabetes mellitus Glucose improving Neuropathy To bilateral feet Open wound of left great toe Osteomyelitis No current issues Osteomyelitis of great toe of left foot Partial nontraumatic amputation of left foot Pericardial effusion Resolved per May 2020 ECHO per cardio records Follows with cardio Post laminectomy syndrome Post traumatic stress disorder Pulmonary emboli Was on Lovenox in the past but stopped due to brain hemorrhage Sepsis Skin ulcer of left great toe with necrosis of bone Small cell lung cancer With mets to the brain- dx'ed 2017- s/p XRT No current issues Smoking Surgical History History of back surgery x4 History of hernia surgery x4 History of knee surgery Right knee- has ligaments removed- has to wear brace or knee locates History of surgery Pericardiocentesis Nov 2019 Social History Smoking Status: Current some day smoker Tobacco Type: Cigarettes packs per day: 1; Cigarettes Per Day: 1.5packs/days x 40 years (intermittently); Second Hand Exposure: No; Hx Alcohol Use: No Hx Substance Use: No Preferred Language: Scottish Communication Ability: Effective Communication Ability Comment: alert and oriented x3 Acid Loader Required: No Beliefs That Will Affect Care: None marital status: Current Living Situation: Alone Current Living Situation Comment: Currently at [facility] current occupational status: disabled Feels Safe at Home: Yes Safety Concerns: Feels Safe At This Time caffeine: Yes during the past year weight has: remained stable Physical Activity Frequency: Does not Exercise Gender Identity: Male Assistive Devices: Cane Review of Systems Review of Systems: Neuro: (-) Falls, trauma, slurred speech HEENT: (-) DELEON, dizziness, dysphagia, visual or auditory changes CV: (-) CP, palpitations, swelling Resp: (-) SOB GI: (-) appetite changes, N/V/D, bowel changes : (-) urinary changes Skin: (-) rashes (+) redness Psych: (-) anxiety, depression Physical Exam Physical Exam: Neuro: AAOx4, PERRLA, no aphagia, memory changes, CNII-XII grossly intact HEENT: head normocephalic, moist mucus membranes CV: S1/S2, (-) M/G/R, (-) edema, cap refill < 3 seconds Resp: Lungs CTA in all shabazz. On RA GI: Abdomen S/NT/ND, Ax4 bowel sounds, (-) CVA tenderness Musculoskeletal: 5/5 B/L UE strength, 5/5 B/L LE strength. No gait disturbance. uses a cane to assist with ambulation Skin: (-) rashes , (+) erythema, necrosis and erythema of third toe with green and yellow purulent drainage. (+) lymphangitic streaks. (+) medial plantar laceration measuring 1 cm Psych: euthymic mood Results & Data Results & Data Vital Signs (Past 12 Hours) Vital Signs Temp Pulse Pulse Resp BP BP Pulse Ox 07/11/22 16:42 104 H 20 113/75 98 07/11/22 14:48 37 C 120 H 18 128/86 98 O2 Del Method 07/11/22 16:42 Room Air 07/11/22 14:48 Room Air Laboratory Results Short CBC 07/11/22 Range/Units 15:51 WBC 11.17 H (4.8-10.8) K/ul Hgb 15.7 (14.0-18.0) g/dl Hct 46.2 (42.0-52.0) % Plt Count 287 (130-400) K/uL BMP 07/11/22 15:51 Sodium 141 Potassium 4.1 Chloride 101 Carbon Dioxide 34 H BUN 13 Creatinine 0.68 Glucose 184 H Calcium 9.9 Liver Function 07/11/22 Range/Units 15:51 Total Bilirubin 0.3 (0.2-1.0) mg/dl AST 29 (13-39) U/L ALT 13 (7-52) U/L Alkaline Phosphatase 62 (34-104) U/L Albumin 3.3 L (3.4-5.0) gm/dl Code Status & VTE Plan Code Status Full Code in the event of cardiac arrest VTE Prophylaxis Plan VTE Prophylaxis will be ordered: Yes Supervising Physician Co-Signing Physician Notes Patient was seen and examined independently. Chart reviewed. Case discussed with TORSTEN Patient here with left diabetic foot infection, appears to have draining abscess of left foot at prior toe amputation, he also recently stepped on glass so has a cut on the bottom of his left foot. X ray of his feet also shows retained metal. Both feet are dirty and very poor foot care. Tetanus booster ordered Cefepime and Vancomycin for now. ID consult. Ortho consult. CT left foot with contrast ordered DM educator, last putter away consult
--- NOTE | 2022-07-11 17:42 | XRay Report ---
XR foot LT min 3V routine CLINICAL HISTORY: Chronic foot wound. COMPARISON: Left foot radiographs and MRI of the left foot November 16, 2020. FINDINGS: Tarsometatarsal joints are intact. Note is made of interval amputation of the first digit at the level of the distal shaft of the first metatarsal. There is amputation of the left second toe. Several metallic foreign bodies are again noted. These were present on prior exam. There is third to e soft tissue swelling. Erosion of the majority of the left third distal phalanx is noted. This is ne w since prior CT. There is also mild erosion of the medial aspect of the left second metatarsal head. There are no acute fractures. IMPRESSION: 1. Interval left first and second digit amputations, as described above. Erosion of the left second m etatarsal head. This suggests age indeterminate osteomyelitis. 2. Erosion of the majority of the left third distal phalanx with soft tissue swelling. This is sugges tive of acute osteomyelitis. 3. No acute fracture within the left foot. 4. Redemonstration of multiple metallic foreign bodies within the plantar aspect of the left foot. ACT 112: Negative or not required by law. Electronically signed by: Thomas Hahn M.D. 07/11/2022 5:40 PM
[2022-07-11] MEDS ORDERED: VANCOMYCIN CONSULT ACTIVE PRN (18:12)
[2022-07-11] MEDS ORDERED: ALBUTEROL HFA 8 GM INHALER INH PRN (18:15)
[2022-07-11] MEDS ORDERED: INSULIN REGULAR 100 UNIT/ML SC SCH (18:30)
[2022-07-11] MEDS ORDERED: INSULIN HUMAN NPH SC SCH (18:30)
[2022-07-11] MEDS ORDERED: DIPHTHERIA/TETANUS/PERTUSSIS 0.5mL SYR/VIAL (Age 7+yrs) IM ONE (18:40)
--- NOTE | 2022-07-11 18:57 | Pharmacy Report ---
Pharmacy Vanc AUC Short Note - Date of Service July 11, 2022 - Assessment & Plan Assessment 61 year old M receiving Vancomycin for treatment of SSTI. Day #1 of antimicrobial therapy: 07/11/22 Plan Vancomycin * Load: Vancomycin 2,000 mg IV once on 07/11/22 at 1701. * Maintenance: Vancomycin 1,250 mg IV q12h starting 07/11/22 at 2300. * AUC/JEREMIAS is the preferred PK/PD target for vancomycin * AUC guided dosing is effective and associated with decreased risk of ne phrotoxicity compared to traditional trough targets * Trough level of 14.2 mcg/mL is predicted to achieve target AUC/JEREMIAS of 400-600 mg/L.hr and may be associated with a 9% risk of nephrotoxicity * Trough or random level ordered for: 07/13/22 with AM labs Pharmacy will continue to follow and will adjust dose/frequency as necessary. Thank you.
[2022-07-11] MEDS ORDERED: OPTIRAY 350 100ml IV ONE (19:30)
--- NOTE | 2022-07-11 19:49 | Pharmacy Report ---
Pharmacy Glycemic Short Note 2 - Date of Service July 11, 2022 - Glycemic Short BSG Results (Last 24 hours): 07/11/22 07/11/22 15:51 18:14 Glucose 184 H POC Glucose 138 H OUTPATIENT ANTIDIABETIC REGIMEN: * Humulin R 35 units SC prior to meals/snacks for BSG > 175 mg/dL * Ozempic 1 mg SC every Sunday * HbA1c pending ASSESSMENT: * 61 yo M admitted on 07/11/22 secondary to a diabetic foot infection. Pharmacy has been consulted to assist with inpatient glycemic management. Of note, patient does have an intolerance to additives in certain insulins. In the past, he has tolerated NPH + Regular insulin at our facility. * Ordered a T2DM diet. Has not eaten yet since admission. Will monitor if patient is tolerating diet. Ordered Vancomycin and Cefepime for infection. * BSGs since admission have been 184 and 138 mg/dL. Will order NPH + regular insulin based on previous admission data. PLAN FOR INPATIENT GLYCEMIC CONTROL: * Hold outpatient GLP1-RA * Basal insulin * NPH 25 units SC BIDM * Bolus insulin * Novolin R per scale ACHS or Q6hrs while NPO * Goal Range: Low 110 mg/dL - High 140 mg/dL * Correction Factor: 15 mg/dL/unit * Nutritional / Prandial insulin per carb ratio of 1 unit per 5 grams CHO consumed
[2022-07-11] MEDS: INSULIN HUMAN REGULAR SC SCH ×2 (20:44→22:10)
--- NOTE | 2022-07-11 20:53 | CT Scan Report ---
Exam(s): CT LEFT FOOT With Contrast EXAM: CT Left Lower Extremity With Intravenous Contrast, Foot CLINICAL HISTORY: Reason for exam: r/o osteomyelitis. TECHNIQUE: Axial computed tomography images of the left foot with intravenous contrast. CTDI is 9.53 mGy and DLP is 202.57 mGy-cm. Automated exposure control was utilized for the study. A dose lowering technique was utilized adhering to the principles of ALARA. CONTRAST: Contrast must be dictated COMPARISON: No relevant prior studies available. FINDINGS: Status post amputation of the first ray at the first metatarsal mid diaphysis and second ray at the second digit MTP. There is an ulcer plantar to the third metatarsal head. No definite CT evidence of osteomyelitis however, MRI should be considered for further evaluation. There was erosion of the third digit distal phalanx, concerning for osteomyelitis. Diffuse soft tissue swelling and skin thickening, consistent with known soft tissue infection. No drainable fluid collection or abscess at this time. IMPRESSION: Status post amputation of the first ray at the first metatarsal mid diaphysis and second ray at the second digit MTP. Ulcer plantar to the third metatarsal head. No definite CT evidence of osteomyelitis however, MRI should be considered for further evaluation. Erosion of the third digit distal phalanx, concerning for osteomyelitis. Electronically signed by: Shankar Kang MD 07/11/22 20:53 PM
[2022-07-11] MEDS ORDERED: INSULIN ASPART PER UNIT CHARGE SC SCH (21:00)
[2022-07-11] MEDS ORDERED: LANTUS PER UNIT CHARGE SQ SCH (21:00)
[2022-07-11 21:05] LABS: Appearance Urine Cloudy (Clear); Bacteria Urine Automated Negative (Negative); Bilirubin Urine Negative (Negative); Blood Urine Negative (Negative); Cast Urine Automated 0 /lpf (0-5); Color Urine Dark Yellow; Epithelial Cell Urine Auto 0-5 /lpf (0-5); Glucose Urine UA Negative (Negative); Ketones Urine Negative (Negative); Leukocyte Esterase Urine Negative (Negative); Nitrite Urine Negative (Negative); RBC Urine Automated 0-4 /hpf (0-4); Urobilinogen Urine Negative (Negative)
[2022-07-11 22:04] LABS: Protein Urine 1+ (Negative)
[2022-07-11] MEDS: SODIUM CHLORIDE 0.65% NA SOLN 45 ML (OCEAN) PRN (22:08)
[2022-07-11] MEDS: ROSUVASTATIN CALCIUM 20 MG TAB PO SCH (22:08)
[2022-07-11] MEDS: ZOLPIDEM TARTRATE 5 MG TAB PO PRN (22:08)
[2022-07-11] MEDS: MELATONIN 3 MG TAB PO PRN (22:08)
[2022-07-11] MEDS: VANCOMYCIN HCL 1,250 MG in SODIUM CHLORIDE 0.9% 250 ML IV SCH (22:16)
[2022-07-11] MEDS: CEFEPIME 2,000 MG in SYRINGE 0 ML IV SCH (23:53)
[2022-07-12] MEDS: RIZATRIPTAN BENZOATE 10 MG TAB PO PRN ×2 (02:00→16:59)
[2022-07-12] MEDS ORDERED: INSULIN HUMAN REGULAR SC ONE (02:00)
[2022-07-12 08:15] LABS: Hematocrit (blood only) 45.9 % (42.0-52.0); Hemoglobin 15.6 g/dl (14.0-18.0); Mean Corpuscular Hemoglobin 31.6 pg (25.0-34.0); Mean Corpuscular Volume 92.9 fL (80.0-100.0); Mean Platelet Volume 11.2 fL (9.4-12.4); Platelet Count 280 K/uL (130-400); RDW Coefficient of Variation 12.6 % (11.5-14.5); RDW Standard Deviation 42.7 fL (36.4-46.3); Red Blood Count 4.94 M/uL (4.70-6.10); White Blood Count 10.35 K/ul (4.8-10.8)
[2022-07-12] MEDS ORDERED: INSULIN HUMAN NPH SC SCH ×2 (08:15→17:00)
[2022-07-12 08:33] LABS: Albumin Globulin Ratio 0.9 (0.9-2); Albumin Level 3.2 gm/dl (3.4-5.0); BUN Creatinine Ratio 16.1 (10-20); Bilirubin,Total 0.3 mg/dl (0.2-1.0); Calcium 9.2 mg/dl (8.6-10.3); Chol HDL Ratio 6.9 (0-5); Creatinine Clr Calc Pharmacy 172.5 ml/min; Est GFR (African American) 125.8 ml/min; Est GFR (Non-African American) 108.6 ml/min; Globulin 3.5 gm/dl (2.5-4.0); Magnesium 1.8 mg/dl (1.7-2.4); Total Protein 6.7 gm/dl (6.0-8.3)
[2022-07-12] MEDS ORDERED: VANCOMYCIN HCL 1,250 MG in SODIUM CHLORIDE 0.9% 500 ML IV SCH (09:00)
--- NOTE | 2022-07-12 09:19 | Hospitalist Progress Note ---
Date of Service July 12, 2022 Assessment & Plan (1) Wound of left foot: (2) Uncontrolled type II diabetes mellitus: (3) Small cell lung cancer: (4) Insulin dependent type 2 diabetes mellitus: (5) Depression with anxiety: (6) HTN (hypertension): (7) HLD (hyperlipidemia): Plan Mr. Carcamo is a 61 y/o M who presented to the [facility] ED from his PCP office with complaints of pain swelling and redness on his left leg and foot. +purulent drainage noted on his left third toe with lymphangetic streaks on the distal 2/3 of his left foot. Left foot x-ray suggests age indeterminate osteomyelitis and erosion of the majority of the left third distal phalanx with soft tissue swelli ng; suggestive of acute osteomyelitis. Pt states that his pain started about two days ago. He does have a vertical 1 cm laceration on the mid-plantar portion of his foot that he said occurred yesterday when he stepped on a piece of glass. He denies having recent fever or chills. Pt does have palpable pedal pulses bilaterally. Pt does not appear toxic; without leukocytosis, afebrile, no tachycardia. He has a history of 1st and 2nd toe amputations. Additional PMH includes: SCLCA with brain metastasis diagnosed in 2018 s/p chemotherapy and radiation treatment (under the care of Dr. Gale, but has not had recent follow up), H/O of PE (was on Lovenox but discontinued due to ICH), depression and anxiety, IDDM2, AF, HTN, HLD, and GERD. Wound of left foot: + pain, swelling and redness on his left foot. + purulent drainage noted on his left third toe with lymphangitic streaks on the distal 2/3 of his left foot. Left foot x-ray suggests age indeterminate osteomyelitis and erosion of the majority of the left third distal phalanx with soft tissue swelling; suggestive of acute osteomyelitis. vertical 1 cm laceration on the mid-plantar portion of his foot that he said occurred yesterday when he stepped on a piece of glass. Left foot CT with contrast IMPRESSION: Status post amputation of the first ray at the first metatarsal mid diaphysis and second ray at the second digit MTP. Ulcer plantar to the third metatarsal head. No definite CT evidence of osteomyelitis however, MRI should be considered for further evaluation. Erosion of the third digit distal phalanx, concerning for osteomyelitis. MRI foot IMPRESSION: 1. Approximately 5.1 x 4.9 cm loculated soft tissue fluid collection surrounding the majority of the third toe extending along the plantar surface of the second through fourth MTP joints. This likely represents an abscess. There is a small focal skin ulceration along the plantar surface of the third MTP joint. 2. Mild marrow edema within the head of the third metatarsal without abnormal T1 signal or destructive change to confirm the presence osteomyelitis. This may represent a mild osteitis. 3. Small joint effusion at the third MTP joint. 4. Prior first and second toe amputations. Fibroid scattered foci susceptibility artifact consistent with the metallic foreign body is better appreciated on the prior radiograph. 5. Diffuse soft tissue edema and enhancement within the forefoot suggestive of a cellulitis. 6. Truncated appearance of the distal phalanx of the third toe which could be due to prior amputation or prior osteomyelitis. Signal intensity of the truncated distal phalanx of the third toe is not well assessed due to its small size. ED started Cefepime + Vanco ; continue and adjust based on ID consult ID consult placed TDAP ordered WOCN consult Ortho/Podiatry consulted - discussed exam findings and MRI - plan for OR tomorrow (07/13/22), NPO after MN Uncontrolled type 2 diabetes mellitus: A1C 06/28/22: 7.0 Denies using SSI; takes Ozempic; last dose on Sunday Place on FSBS ACHS SSI; Glycemic consult for management of Lantus Small cell lung CA: with brain metastasis diagnosed in 2018 s/p chemotherapy and radiation treatment under the care of Dr. Gale, but has not had recent follow up No home supplemental O2 Depression with anxiety: Tobacco use: Recent loss of a 2 year old son; elevated his anxiety; began smoking cigarettes again HTN: Normotensive in ED. Not on any home medications for BP HLD: Takes Rosuvastatin; continue Lipid panel: 06/28/22: TG 271, HDL 36, LDL 164 H/O of PE: was on Lovenox but discontinued due to ICH, unknown date Disposition: PCP: Dr. Zamudio CODE STATUS: Full code VTE prophylaxis: Teds and SCDs for now Admission and Anticipated Discharge Date Admission Date: July 11, 2022 Subjective Pt seen in follow up of foot infection/ cellulitis/ osteomyelitis Currently laying in bed, in no acute distress Denies fevers chills chest pain shortness of breath Denies abdominal pain nausea vomiting Has only some pain in his left foot Patient just came from MRI Seen by podiatry this morning, Dr. Wilson. Discussed with Dr. Wilson, likely OR tomorrow we will make patient n.p.o. after midnight Review of Systems Review of Systems: All systems reviewed & are unremarkable except as noted in Subjective Physical Exam Physical Exam: General: WD/WN M in NAD HEENT: head normocephalic, moist mucus membranes CV: S1/S2, (-) M/G/R, (-) edema Resp: Lungs CTA in all shabazz. On RA GI: Abdomen S/NT/ND, Ax4 bowel sounds, (-) CVA tenderness Musculoskeletal: Moves extremities. Neuro: AAOx3, PERRL, speech fluent, moves extremities Skin: erythema of third toe with purulent drainage. (+) medial plantar laceration Results & Data Results & Data Vital Signs (Past 12 Hours) Vital Signs Temp Pulse Pulse Pulse Resp BP BP 07/12/22 08:05 36.4 C L 93 H 13 112/70 07/12/22 02:00 36.3 C L 100 H 18 119/75 07/11/22 22:03 104 H 07/11/22 22:54 36.9 C 102 H 18 138/82 Pulse Ox O2 Del Method 07/12/22 08:05 99 Room Air 07/12/22 02:00 97 Room Air 07/11/22 22:03 07/11/22 22:54 93 Room Air Laboratory Results 07/12/22 07/12/22 07/12/22 Range/Units 07:34 07:07 07:07 WBC 10.35 (4.8-10.8) K/ul RBC 4.94 (4.70-6.10) M/uL Hgb 15.6 (14.0-18.0) g/dl Hct 45.9 (42.0-52.0) % MCV 92.9 (80.0-100.0) fL MCH 31.6 (25.0-34.0) pg MCHC 34.0 (32.0-36.0) g/dL RDW Std Deviation 42.7 (36.4-46.3) fL RDW Coeff of Alex 12.6 (11.5-14.5) % Plt Count 280 (130-400) K/uL MPV 11.2 (9.4-12.4) fL Immature Gran % (Auto) % Neut % (Auto) % Lymph % (Auto) % [place] % (Auto) % Eos % (Auto) % Baso % (Auto) % Neut # (Auto) (1.40-6.50) K/uL Lymph # (Auto) (1.2-3.4) K/uL [place] # (Auto) (0.11-0.59) K/uL Eos # (Auto) (0-0.50) K/uL Baso # (Auto) (0-0.2) K/uL Immature Gran # (Auto) (0.01-0.20) K/uL Sodium (136-145) mmol/L Potassium (3.5-5.1) mmol/L Chloride (98-107) mmol/L Carbon Dioxide (21-32) mmol/L Anion Gap (3-11) BUN (6-23) mg/dl Creatinine (0.6-1.4) mg/dl Est Cr Clr Drug Dosing ml/min Est GFR ( Amer) ml/min Est GFR (Non-Af Amer) ml/min BUN/Creatinine Ratio (10-20) Glucose (70-99(Fasting)) mg/dl POC Glucose 154 H (70-99) mg/dl Estimat Average Glucose Pending Hemoglobin A1c Pending Calcium (8.6-10.3) mg/dl Magnesium (1.7-2.4) mg/dl Total Bilirubin (0.2-1.0) mg/dl AST (13-39) U/L ALT (7-52) U/L Alkaline Phosphatase (34-104) U/L Total Protein (6.0-8.3) gm/dl Albumin (3.4-5.0) gm/dl Globulin (2.5-4.0) gm/dl Albumin/Globulin Ratio (0.9-2) Triglycerides (0-150) mg/dl Cholesterol (0-200) mg/dl LDL Cholesterol, Calc mg/dl VLDL Cholesterol, Calc (0-30) mg/dl HDL Cholesterol mg/dl Cholesterol/HDL Ratio (0-5) Urine Color Urine Appearance (Clear) Urine pH (4.5-7.5) Ur Specific [place] (1.000-1.030) Urine Protein (Negative) Urine Glucose (UA) (Negative) Urine Ketones (Negative) Urine Blood (Negative) Urine Nitrite (Negative) Urine Bilirubin (Negative) Urine Urobilinogen (Negative) Ur Leukocyte Esterase (Negative) Urine WBC (Auto) (0-5) /hpf Urine RBC (Auto) (0-4) /hpf U Hyaline Cast (Auto) (0-5) /lpf U Epithel Cells (Auto) (0-5) /lpf Urine Bacteria (Auto) (Negative) SARS-CoV-2, RNA, NAAT (NEGATIVE) 07/12/22 07/12/22 07/11/22 Range/Units 07:07 01:45 Unknown WBC (4.8-10.8) K/ul RBC (4.70-6.10) M/uL Hgb (14.0-18.0) g/dl Hct (42.0-52.0) % MCV (80.0-100.0) fL MCH (25.0-34.0) pg MCHC (32.0-36.0) g/dL RDW Std Deviation (36.4-46.3) fL RDW Coeff of Alex (11.5-14.5) % Plt Count (130-400) K/uL MPV (9.4-12.4) fL Immature Gran % (Auto) % Neut % (Auto) % Lymph % (Auto) % [place] % (Auto) % Eos % (Auto) % Baso % (Auto) % Neut # (Auto) (1.40-6.50) K/uL Lymph # (Auto) (1.2-3.4) K/uL [place] # (Auto) (0.11-0.59) K/uL Eos # (Auto) (0-0.50) K/uL Baso # (Auto) (0-0.2) K/uL Immature Gran # (Auto) (0.01-0.20) K/uL Sodium 138 (136-145) mmol/L Potassium 4.0 (3.5-5.1) mmol/L Chloride 101 (98-107) mmol/L Carbon Dioxide 31 (21-32) mmol/L Anion Gap 6 (3-11) BUN 10 (6-23) mg/dl Creatinine 0.62 (0.6-1.4) mg/dl Est Cr Clr Drug Dosing 172.5 ml/min Est GFR ( Amer) 125.8 ml/min Est GFR (Non-Af Amer) 108.6 ml/min BUN/Creatinine Ratio 16.1 (10-20) Glucose 143 H (70-99(Fasting)) mg/dl POC Glucose 109 H (70-99) mg/dl Estimat Average Glucose Hemoglobin A1c Calcium 9.2 (8.6-10.3) mg/dl Magnesium 1.8 (1.7-2.4) mg/dl Total Bilirubin 0.3 (0.2-1.0) mg/dl AST 28 (13-39) U/L ALT 12 (7-52) U/L Alkaline Phosphatase 59 (34-104) U/L Total Protein 6.7 (6.0-8.3) gm/dl Albumin 3.2 L (3.4-5.0) gm/dl Globulin 3.5 (2.5-4.0) gm/dl Albumin/Globulin Ratio 0.9 (0.9-2) Triglycerides 184 H (0-150) mg/dl Cholesterol 159 (0-200) mg/dl LDL Cholesterol, Calc 99 mg/dl VLDL Cholesterol, Calc 37 H (0-30) mg/dl HDL Cholesterol 23 mg/dl Cholesterol/HDL Ratio 6.9 H (0-5) Urine Color Urine Appearance (Clear) Urine pH (4.5-7.5) Ur Specific [place] (1.000-1.030) Urine Protein (Negative) Urine Glucose (UA) (Negative) Urine Ketones (Negative) Urine Blood (Negative) Urine Nitrite (Negative) Urine Bilirubin (Negative) Urine Urobilinogen (Negative) Ur Leukocyte Esterase (Negative) Urine WBC (Auto) (0-5) /hpf Urine RBC (Auto) (0-4) /hpf U Hyaline Cast (Auto) (0-5) /lpf U Epithel Cells (Auto) (0-5) /lpf Urine Bacteria (Auto) (Negative) SARS-CoV-2, RNA, NAAT NEGATIVE (NEGATIVE) 07/11/22 07/11/22 07/11/22 Range/Units 20:44 20:15 18:14 WBC (4.8-10.8) K/ul RBC (4.70-6.10) M/uL Hgb (14.0-18.0) g/dl Hct (42.0-52.0) % MCV (80.0-100.0) fL MCH (25.0-34.0) pg MCHC (32.0-36.0) g/dL RDW Std Deviation (36.4-46.3) fL RDW Coeff of Alex (11.5-14.5) % Plt Count (130-400) K/uL MPV (9.4-12.4) fL Immature Gran % (Auto) % Neut % (Auto) % Lymph % (Auto) % [place] % (Auto) % Eos % (Auto) % Baso % (Auto) % Neut # (Auto) (1.40-6.50) K/uL Lymph # (Auto) (1.2-3.4) K/uL [place] # (Auto) (0.11-0.59) K/uL Eos # (Auto) (0-0.50) K/uL Baso # (Auto) (0-0.2) K/uL Immature Gran # (Auto) (0.01-0.20) K/uL Sodium (136-145) mmol/L Potassium (3.5-5.1) mmol/L Chloride (98-107) mmol/L Carbon Dioxide (21-32) mmol/L Anion Gap (3-11) BUN (6-23) mg/dl Creatinine (0.6-1.4) mg/dl Est Cr Clr Drug Dosing ml/min Est GFR ( Amer) ml/min Est GFR (Non-Af Amer) ml/min BUN/Creatinine Ratio (10-20) Glucose (70-99(Fasting)) mg/dl POC Glucose 108 H 138 H (70-99) mg/dl Estimat Average Glucose Hemoglobin A1c Calcium (8.6-10.3) mg/dl Magnesium (1.7-2.4) mg/dl Total Bilirubin (0.2-1.0) mg/dl AST (13-39) U/L ALT (7-52) U/L Alkaline Phosphatase (34-104) U/L Total Protein (6.0-8.3) gm/dl Albumin (3.4-5.0) gm/dl Globulin (2.5-4.0) gm/dl Albumin/Globulin Ratio (0.9-2) Triglycerides (0-150) mg/dl Cholesterol (0-200) mg/dl LDL Cholesterol, Calc mg/dl VLDL Cholesterol, Calc (0-30) mg/dl HDL Cholesterol mg/dl Cholesterol/HDL Ratio (0-5) Urine Color Dark Yellow Urine Appearance Cloudy A (Clear) Urine pH 8.0 H (4.5-7.5) Ur Specific [place] 1.020 (1.000-1.030) Urine Protein 1+ H (Negative) Urine Glucose (UA) Negative (Negative) Urine Ketones Negative (Negative) Urine Blood Negative (Negative) Urine Nitrite Negative (Negative) Urine Bilirubin Negative (Negative) Urine Urobilinogen Negative (Negative) Ur Leukocyte Esterase Negative (Negative) Urine WBC (Auto) 1-5 (0-5) /hpf Urine RBC (Auto) 0-4 (0-4) /hpf U Hyaline Cast (Auto) 0 (0-5) /lpf U Epithel Cells (Auto) 0-5 (0-5) /lpf Urine Bacteria (Auto) Negative (Negative) SARS-CoV-2, RNA, NAAT (NEGATIVE) 07/11/22 07/11/22 Range/Units 15:51 15:51 WBC 11.17 H (4.8-10.8) K/ul RBC 4.99 (4.70-6.10) M/uL Hgb 15.7 (14.0-18.0) g/dl Hct 46.2 (42.0-52.0) % MCV 92.6 (80.0-100.0) fL MCH 31.5 (25.0-34.0) pg MCHC 34.0 (32.0-36.0) g/dL RDW Std Deviation 42.9 (36.4-46.3) fL RDW Coeff of Alex 12.6 (11.5-14.5) % Plt Count 287 (130-400) K/uL MPV 10.8 (9.4-12.4) fL Immature Gran % (Auto) 0.5 % Neut % (Auto) 81.8 % Lymph % (Auto) 8.7 % [place] % (Auto) 7.3 % Eos % (Auto) 1.3 % Baso % (Auto) 0.4 % Neut # (Auto) 9.14 H (1.40-6.50) K/uL Lymph # (Auto) 0.97 L (1.2-3.4) K/uL [place] # (Auto) 0.81 H (0.11-0.59) K/uL Eos # (Auto) 0.14 (0-0.50) K/uL Baso # (Auto) 0.05 (0-0.2) K/uL Immature Gran # (Auto) 0.06 (0.01-0.20) K/uL Sodium 141 (136-145) mmol/L Potassium 4.1 (3.5-5.1) mmol/L Chloride 101 (98-107) mmol/L Carbon Dioxide 34 H (21-32) mmol/L Anion Gap 6 (3-11) BUN 13 (6-23) mg/dl Creatinine 0.68 (0.6-1.4) mg/dl Est Cr Clr Drug Dosing 143.6 ml/min Est GFR ( Amer) 121.2 ml/min Est GFR (Non-Af Amer) 104.5 ml/min BUN/Creatinine Ratio 19.1 (10-20) Glucose 184 H (70-99(Fasting)) mg/dl POC Glucose (70-99) mg/dl Estimat Average Glucose Hemoglobin A1c Calcium 9.9 (8.6-10.3) mg/dl Magnesium (1.7-2.4) mg/dl Total Bilirubin 0.3 (0.2-1.0) mg/dl AST 29 (13-39) U/L ALT 13 (7-52) U/L Alkaline Phosphatase 62 (34-104) U/L Total Protein 7.1 (6.0-8.3) gm/dl Albumin 3.3 L (3.4-5.0) gm/dl Globulin 3.8 (2.5-4.0) gm/dl Albumin/Globulin Ratio 0.9 (0.9-2) Triglycerides (0-150) mg/dl Cholesterol (0-200) mg/dl LDL Cholesterol, Calc mg/dl VLDL Cholesterol, Calc (0-30) mg/dl HDL Cholesterol mg/dl Cholesterol/HDL Ratio (0-5) Urine Color Urine Appearance (Clear) Urine pH (4.5-7.5) Ur Specific [place] (1.000-1.030) Urine Protein (Negative) Urine Glucose (UA) (Negative) Urine Ketones (Negative) Urine Blood (Negative) Urine Nitrite (Negative) Urine Bilirubin (Negative) Urine Urobilinogen (Negative) Ur Leukocyte Esterase (Negative) Urine WBC (Auto) (0-5) /hpf Urine RBC (Auto) (0-4) /hpf U Hyaline Cast (Auto) (0-5) /lpf U Epithel Cells (Auto) (0-5) /lpf Urine Bacteria (Auto) (Negative) SARS-CoV-2, RNA, NAAT (NEGATIVE) Medications Administered Current Inpatient Medications Acetaminophen (Acetaminophen 325 Mg Tab) 650 mg PO Q4H PRN PRN Reason: Pain or Fever Stop: 08/10/22 17:18 Al Hydrox/Mg Hydrox/Simethicone (Aluminum/Magnesium Susp 30 Ml Udc) 15 ml PO Q4H PRN PRN Reason: Dyspepsia Stop: 08/10/22 17:18 Albuterol (Albuterol Hfa 8 Gm Inhaler) 2 puffs INH Q4R PRN PRN Reason: Wheezing Stop: 08/10/22 18:14 Dextrose (Dextrose 50% 50 Ml Syringe) 25 - 50 ml IV UD PRN; Protocol PRN Reason: Hypoglycemia Protocol Stop: 08/10/22 17:18 Glucagon (Glucagon For Inj 1 Mg Vial) 1 mg SQ UD PRN; Protocol PRN Reason: Hypoglycemia Protocol Stop: 08/10/22 17:18 Glucose (Glucose 10 Tab/Tube) 4 - 8 tab PO UD PRN; Protocol PRN Reason: Hypoglycemia Treatment Stop: 08/10/22 17:18 Glucose (Glucose 40% Gel 15 Gm Tube) 15 - 30 gm PO UD PRN; Protocol PRN Reason: Hypoglycemia Protocol Stop: 08/10/22 17:18 Cefepime HCl 2,000 mg/ Syringe 20 mls @ 5 mls/min IV Q8H LUCIANA; Protocol Stop: 07/19/22 00:00 Last Admin: 07/11/22 23:53 Dose: 5 mls/min Vancomycin HCl 1,250 mg/ (Sodium Chloride) 275 mls @ 200 mls/hr IV Q12H LUCIANA; Protocol Stop: 07/18/22 22:59 Last Infusion: 07/11/22 23:53 Dose: Infused Insulin Human NPH (Insulin Human Nph) 20 units SC BIDM LUCIANA Stop: 08/11/22 08:14 Insulin Human Regular (Insulin Human Regular) 0 units SC ACHS LUCIANA; Protocol Stop: 08/10/22 20:59 Last Admin: 07/11/22 22:10 Dose: 4 units Magnesium Hydroxide (Magnesium Hydroxide Susp 30 Ml Udc) 30 ml PO Q12H PRN PRN Reason: Constipation Stop: 08/10/22 17:18 Melatonin (Melatonin 3 Mg Tab) 3 mg PO HSZ PRN PRN Reason: Sleep Stop: 08/10/22 18:31 Last Admin: 07/11/22 22:08 Dose: 3 mg Miscellaneous (Carbohydrates For Hypoglycemia ) 15 - 30 gm PO UD PRN PRN Reason: Hypoglycemia Protocol Stop: 08/10/22 17:18 Miscellaneous Information (Pharmacy Glycemic Mgmt Consult) 1 each N/A UD PRN PRN Reason: Consult Stop: 08/10/22 17:18 Miscellaneous Information (Vancomycin Consult Active) 1 each N/A UD PRN PRN Reason: Consult Stop: 08/10/22 18:11 Ondansetron HCl (Ondansetron Inj 2 Mg/Ml 2 Ml Vial) 4 mg IV Q6H PRN PRN Reason: Nausea Stop: 08/10/22 17:18 Polyethylene Glycol (Polyethylene (Miralax) 17 Gm Pack) 17 gm PO DAILY PRN PRN Reason: Constipation Stop: 08/10/22 17:18 Rizatriptan Benzoate (Rizatriptan Benzoate 10 Mg Tab) 10 mg PO ONE PRN PRN Reason: migraine headache Stop: 08/10/22 18:14 Last Admin: 07/12/22 02:00 Dose: 10 mg Rosuvastatin Calcium (Rosuvastatin Calcium 20 Mg Tab) 40 mg PO HS LUCIANA Stop: 08/10/22 20:59 Last Admin: 07/11/22 22:08 Dose: 40 mg Sodium Chloride (Sodium Chloride 0.65% Na Soln 45 Ml (Schleicher)) 2 sprays NA BID PRN PRN Reason: Nasal Congestion Stop: 08/10/22 20:45 Last Admin: 07/11/22 22:08 Dose: 2 sprays Zolpidem Tartrate (Zolpidem Tartrate 5 Mg Tab) 5 mg PO HS PRN PRN Reason: Sleep Stop: 08/10/22 18:14 Last Admin: 07/11/22 22:08 Dose: 5 mg
[2022-07-12 09:26] LABS: Estimated Average Glucose 151 mg/dl; Hemoglobin A1C 6.9 % (4.5-5.6)
[2022-07-12] MEDS ORDERED: GADOBUTROL 65ML VIAL IV ONE (09:43)
[2022-07-12] MEDS: CEFEPIME 2,000 MG in SYRINGE 0 ML IV SCH ×2 (10:31→17:01)
[2022-07-12] MEDS: INSULIN HUMAN REGULAR SC SCH ×4 (10:33→21:19)
--- NOTE | 2022-07-12 10:33 | Magnetic Resonance Report ---
MR foot LT wo/w con HISTORY: Redness and swelling within the left foot with drainage third toe. Rule out Osteomyelitis. TECHNIQUE: Multiplanar multisequence MRI of the left forefoot was performed both before and after the intravenous administration of 10 cc of Gadavist contrast. COMPARISON STUDY: Left foot CT 07/11/2022. FINDINGS: Areas of susceptibility artifact within the soft tissues of the plantar surface of the foot at the level of the first and second metatarsal heads. This likely corresponds to the metallic forei gn body seen on the prior radiograph. Prior amputation of the first and second toes. There are periph eral enhancing fluid collection surrounding the majority of the third toe most pronounced along the p lantar surface which extends to the level of the third MTP joint and abuts the heads of the second th rough fourth metatarsals. This measures approximately 5.1 x 4.9 cm. This likely represents an abscess . Truncated appearance of the distal phalanx of the third toe which could be due to prior amputation or prior osteomyelitis. Signal intensity of the truncated distal phalanx of the third toe is not well assessed due to its small size. No acute fracture or dislocation. Soft tissue edema seen throughout the majority of the forefoot with associated enhancement. This suggests a cellulitis. Small focal ski n ulceration seen along the plantar surface of the third MTP joint. There is a small effusion at the third MTP joint. Mild nonspecific edema at the head of the third metatarsal. No abnormal enhancement or abnormal T1 signal to suggest an osteomyelitis. Small focus of susceptibility artifact seen within the distal fourth toe. This also represents a small metallic foreign body. IMPRESSION: 1. Approximately 5.1 x 4.9 cm loculated soft tissue fluid collection surrounding the majority of the third toe extending along the plantar surface of the second through fourth MTP joints. This likely re presents an abscess. There is a small focal skin ulceration along the plantar surface of the third MT P joint. 2. Mild marrow edema within the head of the third metatarsal without abnormal T1 signal or destructiv e change to confirm the presence osteomyelitis. This may represent a mild osteitis. 3. Small joint effusion at the third MTP joint. 4. Prior first and second toe amputations. Fibroid scattered foci susceptibility artifact consistent with the metallic foreign body is better appreciated on the prior radiograph. 5. Diffuse soft tissue edema and enhancement within the forefoot suggestive of a cellulitis. 6. Truncated appearance of the distal phalanx of the third toe which could be due to prior amputation or prior osteomyelitis. Signal intensity of the truncated distal phalanx of the third toe is not wel l assessed due to its small size. ACT 112: Negative or not required by law. Electronically signed by: Jace Ceballos M.D. 07/12/2022 10:31 AM
[2022-07-12] MEDS: VANCOMYCIN HCL 1,250 MG in SODIUM CHLORIDE 0.9% 250 ML IV SCH ×2 (11:05→22:54)
--- NOTE | 2022-07-12 11:14 | Orthopedic Consultation ---
Date of Consultation July 12, 2022 Assessment & Plan (1) Osteomyelitis: Patient seen, evaluated, and treated. Reviewed MRI, CT and plain films. Concern for osteomyelitis left third toe. Patient will require removal of non viable bone. This was discussed and Patient is in agreement. Surgery scheduled for 07/13/22 around 4pm Patient will also require Incision and drainage for abscess. I reviewed procedure in detail as well as postoperative recovery. I discussed expectations and patient's current weightbearing status. All questions answered. I have discussed procedure in detail as well as postoperative recovery. All potential risks, benefits, complications, alternatives, rehab, potential for incomplete relief of symptoms, need for further surgery, DVT, PE, , persistent pain, swelling, scarring, weakness, neurovascular, wound complications and potential for amputations were discussed with patient. Unwanted outcomes such as, but not limited to were reviewed including under correction, overcorrection, return of deformity, infection. All questions were answered. Patient has decided to proceed with procedure as indicated. (2) Cellulitis: (3) Insulin dependent type 2 diabetes mellitus: History of Present Illness Attending Physician: Mauricio Ramachandran MD History of Present Illness [facility], [id number] History & Physical Report Signed Patient:LAVERNE CARCAMO Admit Date:07/11/22 MR#:[id number] Att Phy:Hermelindo Schmidt MD Acct ID:[id number] Nevaeh Phy:Efraín Zamudio III, MD Date:1960 Fam Phy: Age:61 Location:2N Sex:M Room/Bed:N283-2 cc: ~ *NOTICE TO RECEIVING [facility]ENCY This information is strictly Confidential and protected under [place] law. [place] law prohibits you from making any further disclosure of this information unless further disclosure is expressly permitted by the written consent of the person to whom it pertains or is authorized by law. A general authorization for the release of medical or other information is not sufficient for this purpose. Hospital accepts no responsibility if the information is made available to any other person, INCLUDING THE PATIENT. Date of Service July 11, 2022 Assessment & Plan (1) Wound of left foot: (2) Uncontrolled type II diabetes mellitus: (3) Small cell lung cancer: (4) Insulin dependent type 2 diabetes mellitus: (5) Depression with anxiety: (6) HTN (hypertension): (7) HLD (hyperlipidemia): Plan Mr. Carcamo is a disheveled 61 y/o presented to the [facility] ED from his PCP office with complaints of pain swelling and redness on his left leg and foot. He has purulent drainage noted on his left third toe with lymphangetic streaks on the distal 2/3 of his left foot. Left foot x-ray suggests age indeterminate osteomyelitis and erosion of the majority of the left third distal phalanx with soft tissue swelling; suggestive of acute osteomyelitis. Pt states that his pain started about two days ago. He does have a vertical 1 cm laceration on the mid-plantar portion of his foot that he said occurred yesterday when he stepped on a piece of glass. He denies having recent fever or chills. Pt does have palpable pedal pulses bilaterally. Pt does not appear toxic; without leukocytosis, afebrile, no tachycardia. He has a history of 1st and 2nd toe amputations. Additional PMH includes: SCLCA with brain metastasis diagnosed in 2018 s/p chemotherapy and radiation treatment (under the care of Dr. Gale, but has not had recent follow up), H/O of PE (was on Lovenox but discontinued due to ICH), depression and anxiety, IDDM2, AF, HTN, HLD, and GERD. Wound of left foot: + pain, swelling and redness on his left foot. Does not appear toxic; afebrile, no leukocytosis, slight tachycardia 104; suspect for pain + purulent drainage noted on his left third toe with lymphangitic streaks on the distal 2/3 of his left foot. Left foot x-ray suggests age indeterminate osteomyelitis and erosion of the majority of the left third distal phalanx with soft tissue swelling; suggestive of acute osteomyelitis. vertical 1 cm laceration on the mid-plantar portion of his foot that he said occurred yesterday when he stepped on a piece of glass. left foot CT with contrast pending ED started Cefepime + Vanco ; continue and adjust based on ID consult ID consult placed MRSA screen pending TDAP ordered WOCN consult Ortho consult Uncontrolled type 2 diabetes mellitus: A1C 06/28/22: 7.0 Denies using SSI; takes Ozempic; last dose on Sunday Place on FSBS ACHS SSI; Glycemic consult for management of Lantus Small cell lung CA: with brain metastasis diagnosed in 2018 s/p chemotherapy and radiation treatment under the care of Dr. Gale, but has not had recent follow up No home supplemental O2 Depression with anxiety: Tobacco use: Recent loss of a 2 year old son; elevated his anxiety; began smoking cigarettes again HTN: Normotensive in ED. Not on any home medications for BP HLD: Takes Rosuvastatin; continue Lipid panel: 06/28/22: TG 271, HDL 36, LDL 164 H/O of PE: was on Lovenox but discontinued due to ICH, unknown date Disposition: PCP: Dr. Zamudio CODE STATUS: Full code VTE prophylaxis: Teds and SCDs for now I spent a total of 88 minutes coordinating, documenting, and providing care for this patient excluding time spent in the performance of separately billed services. All of the aforementioned completed while collaborating with the assigned attending physicianfor a full treatment plan. Please see their addendum for further details. History of Present Illness Patient is a 61 year old male seen at bedside for left foot infection. Patient described as disheveled individual. Patient has a past medical history of SCLCA with brain metastasis diagnosed in 2018 s/p chemotherapy and radiation treatment (under the care of Dr. Gale, but has not had recent follow up), H/O of PE (was on Lovenox but discontinued due to ICH), depression and anxiety, IDDM2, AF, HTN, HLD, and GERD. Patient presented to the [facility] ED from his PCP office with complaints of pain swelling and redness on his left leg and foot. ED note describes purulent drainage on his left third toe with lymphangetic streaks on the distal 2/3 of his left foot. Left foot x-ray suggests age indeterminate osteomyelitis and erosion of the majority of the left third distal phalanx with soft tissue swelling; suggestive of acute osteomyelitis. Allergies Allergy/AdvReac Type Severity Reaction Status Date / Time clindamycin Allergy Severe SHORTNESS Verified 07/11/22 16:52 OF BREATH dextromethorphan Allergy Severe HARD TO Verified 07/11/22 16:52 BREATHE? guaifenesin Allergy Severe HARD TO Verified 07/11/22 16:52 BREATHE? amoxicillin Allergy Intermediate SHORTNESS Verified 07/11/22 16:52 OF BREATH insulin aspart Allergy Unknown ALLERGIC Verified 07/11/22 16:52 TO PRESERVATIVES IN NOVOLOG - OK WITH REGULAR/NPH sitagliptin Allergy Unknown UNKNOWN RXN Verified 07/11/22 16:52 adhesive AdvReac Intermediate "rips his Verified 07/11/22 16:52 skin off" atorvastatin AdvReac Intermediate diarrhea Verified 07/11/22 16:52 duloxetine AdvReac Intermediate Abdominal Verified 07/11/22 16:52 Pain escitalopram AdvReac Intermediate GI UPSET Verified 07/11/22 16:52 gabapentin AdvReac Intermediate CONSTIPATIO Verified 07/11/22 16:52 N propoxyphene AdvReac Intermediate "DID CRAZY Verified 07/11/22 16:52 THINGS" tizanidine AdvReac Intermediate Diarrhea Verified 07/11/22 16:52 metformin AdvReac Unknown PT STATES Verified 07/11/22 16:52 "DID NOT WORK" Home Medications Medication Instructions Recorded Confirmed Type rizatriptan 10 mg tablet 10 mg PO DIRECTED PRN Migraine 04/18/21 07/11/22 History Headache rosuvastatin 40 mg tablet 40 mg PO HS 04/18/21 07/11/22 History albuterol sulfate 90 mcg/actuation 2 puff inhalation Q4H PRN Wheezing 07/11/22 07/11/22 History aerosol inhaler (ProAir HFA) melatonin 5 mg tablet 5 mg PO HS PRN Insomnia 07/11/22 07/11/22 History semaglutide 1 mg/dose (4 mg/3 mL) 1 mg subcut WK 07/11/22 07/11/22 History subcutaneous pen injector (Ozempic) trazodone 50 mg tablet 25 mg PO HS 07/11/22 07/11/22 History zolpidem 5 mg tablet 5 mg PO HS PRN Sleep 07/11/22 07/11/22 History Patient History Medical History Afib No anticoagulation Pt states a fib was secondary to previous pericardial effusion Anxiety Chronic back pain Chronic headaches Following with neuro Chronic ulcer of left foot Pt denies any current issues- resolved COPD (chronic obstructive pulmonary disease) COPD (chronic obstructive pulmonary disease) Breathing stable No oxygen needed Depression Depression with anxiety Diabetic foot ulcer with osteomyelitis Diabetic peripheral neuropathy DKA, type 2 DVT of upper extremity (deep vein thrombosis) Poor historian - unsure of when dx'ed DVT prophylaxis HLD (hyperlipidemia) HTN (hypertension) Hyperlipidemia Hypertension Insomnia Insomnia Insulin dependent type 2 diabetes mellitus Glucose improving Neuropathy To bilateral feet Open wound of left great toe Osteomyelitis No current issues Osteomyelitis of great toe of left foot Partial nontraumatic amputation of left foot Pericardial effusion Resolved per May 2020 ECHO per cardio records Follows with cardio Post laminectomy syndrome Post traumatic stress disorder Pulmonary emboli Was on Lovenox in the past but stopped due to brain hemorrhage Sepsis Skin ulcer of left great toe with necrosis of bone Small cell lung cancer With mets to the brain- dx'ed 2018- s/p XRT No current issues Smoking Surgical History History of back surgery x4 History of hernia surgery x4 History of knee surgery Right knee- has ligaments removed- has to wear brace or knee locates History of surgery Pericardiocentesis Nov 2019 Social History Smoking Status: Current some day smoker Tobacco Type: Cigarettes packs per day: 1; Cigarettes Per Day: 1.5packs/days x 40 years (intermittently); Second Hand Exposure: No; Hx Alcohol Use: No Hx Substance Use: No Preferred Language: Prydeinig Communication Ability: Effective Communication Ability Comment: alert and oriented x3 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 Beliefs That Will Affect Care: None marital status: Current Living Situation: Alone Current Living Situation Comment: Currently at [facility] current occupational status: disabled Feels Safe at Home: Yes Safety Concerns: Feels Safe At This Time caffeine: Yes during the past year weight has: remained stable Physical Activity Frequency: Does not Exercise Gender Identity: Male Assistive Devices: Cane and Oxygen - at Night Review of Systems Review of Systems: All systems reviewed & are unremarkable except as noted in HPI & below Physical Exam Constitutional: + disheveled Eyes: normal visual shabazz by confrontation Neck: trachea midline Respiratory: normal respiratory effort Cardiovascular: Rate/Rhythm: regular rate and regular rhythm Musculoskeletal: Absent first and second toes of left foot Skin: Sub met 3 foot ulcer. Open draining third toe. Neurologic: Decreased epicritic sensation Psychiatric: Orientation: alert and oriented x 3 Results & Data Vital Signs (Past 12 Hours) Vital Signs Temp Pulse Pulse Resp BP BP Pulse Ox 07/12/22 08:05 36.4 C L 93 H 13 112/70 99 07/12/22 02:00 36.3 C L 100 H 18 119/75 97 O2 Del Method 07/12/22 08:05 Room Air 07/12/22 02:00 Room Air
[2022-07-12] MEDS: ACETAMINOPHEN 325 MG TAB PO PRN (14:26)
--- NOTE | 2022-07-12 14:54 | Pharmacy Report ---
Pharmacy Glycemic Short Note 2 - Date of Service July 12, 2022 - Glycemic Short BSG Results (Last 24 hours): 07/11/22 07/11/22 07/11/22 15:51 18:14 20:15 Glucose 184 H POC Glucose 138 H 108 H 07/12/22 07/12/22 07/12/22 01:45 07:07 07:34 Glucose 143 H POC Glucose 109 H 154 H 07/12/22 07/12/22 10:24 11:19 Glucose POC Glucose 226 H 203 H OUTPATIENT ANTIDIABETIC REGIMEN: * Humulin R 35 units SC prior to meals/snacks for BSG > 175 mg/dL * Ozempic 1 mg SC every Sunday * HbA1c: 6.9% (07/12/22) ASSESSMENT: 07/12/22: * BSGs reasonably controlled overnight despite only 4 units of Novolog * NPH administration delayed last evening and ended up being held due to it being several hours past meal * NPH also delayed this morning (not given until 1058), patient may require increased NPH, but will be conservative with kieraight's dosing in light of this late administration 07/11/22: * 61 yo M admitted on 07/11/22 secondary to a diabetic foot infection. Pharmacy has been consulted to assist with inpatient glycemic management. Of note, patient does have an intolerance to additives in certain insulins. In the past, he has tolerated NPH + Regular insulin at our facility. * Ordered a T2DM diet. Has not eaten yet since admission. Will monitor if patient is tolerating diet. Ordered Vancomycin and Cefepime for infection. * BSGs since admission have been 184 and 138 mg/dL. Will order NPH + regular insulin based on previous admission data. PLAN FOR INPATIENT GLYCEMIC CONTROL: * Hold outpatient GLP1-RA * Basal insulin * NPH 20 units SC x 1 this morning * NPH 0-20 units SC with dinner this evening * Reassess in AM * Bolus insulin * Novolin R per scale ACHS or Q6hrs while NPO * Goal Range: Low 110 mg/dL - High 140 mg/dL * Correction Factor: 20 mg/dL/unit * Nutritional / Prandial insulin per carb ratio of 1 unit per 6 grams CHO consumed
[2022-07-12] MEDS: ROSUVASTATIN CALCIUM 20 MG TAB PO SCH (21:17)
[2022-07-12] MEDS: ZOLPIDEM TARTRATE 5 MG TAB PO PRN (22:57)
[2022-07-12] MEDS: MELATONIN 3 MG TAB PO PRN (22:57)
[2022-07-12] MEDS: LORazepam 0.5 MG TAB PO PRN (22:57)
[2022-07-12] MEDS ORDERED: RIZATRIPTAN BENZOATE 10 MG TAB PO STA (23:23)
[2022-07-13] MEDS: CEFEPIME 2,000 MG in SYRINGE 0 ML IV SCH ×3 (00:11→15:33)
[2022-07-13 06:30] LABS: Basophils # (auto) 0.06 K/uL (0-0.2); Basophils % (auto) 0.6 %; Eosinophils # (auto) 0.18 K/uL (0-0.50); Eosinophils % (auto) 1.9 %; Hematocrit (blood only) 44.3 % (42.0-52.0); Hemoglobin 15.4 g/dl (14.0-18.0); Immature Granulocytes # (auto) 0.04 K/uL (0.01-0.20); Immature Granulocytes % (auto) 0.4 %; Lymphocytes # (auto) 0.58 K/uL (1.2-3.4); Lymphocytes % (auto) 6.2 %; Mean Corpuscular Hemoglobin 31.6 pg (25.0-34.0); Mean Corpuscular Hgb Conc 34.8 g/dL (32.0-36.0); Mean Corpuscular Volume 90.8 fL (80.0-100.0); Mean Platelet Volume 10.7 fL (9.4-12.4); Monocytes # (auto) 0.64 K/uL (0.11-0.59); Monocytes % (auto) 6.9 %; Neutrophils # (auto) 7.84 K/uL (1.40-6.50); Platelet Count 267 K/uL (130-400); RDW Coefficient of Variation 12.3 % (11.5-14.5); RDW Standard Deviation 41.2 fL (36.4-46.3); Red Blood Count 4.88 M/uL (4.70-6.10); White Blood Count 9.34 K/ul (4.8-10.8)
[2022-07-13 06:52] LABS: Magnesium 1.9 mg/dl (1.7-2.4); Potassium 3.8 mmol/L (3.5-5.1)
[2022-07-13 06:58] LABS: BUN Creatinine Ratio 15.9 (10-20); Est GFR (Non-African American) 107.9 ml/min; Phosphorus 2.9 mg/dl (2.5-4.9)
[2022-07-13] MEDS: VANCOMYCIN HCL 1,250 MG in SODIUM CHLORIDE 0.9% 250 ML IV SCH ×2 (08:56→16:25)
[2022-07-13] MEDS: INSULIN HUMAN REGULAR SC SCH ×6 (08:56→21:05)
[2022-07-13] MEDS: INSULIN HUMAN NPH SC SCH (08:57)
--- NOTE | 2022-07-13 09:15 | Pharmacy Report ---
Pharmacy PK ABX Note - Date of Service July 13, 2022 - Assessment and Plan Assessment 61 year old M receiving IV Vancomycin and Cefepime for treatment of diabetic foot infection, osteomyelitis left third toe, requires removal of non viable bone and incision and drainage for abscess, scheduled for 4pm today. Day # 3 of antimicrobial therapy. Plan Vancomycin * Current regimen: 1250 mg IV every 12 hours * Random level obtained 07/13/22 resulted as 9.7 mcg/mL. This is NOT predicted to achieve target AUC/JEREMIAS of 400-600 mg/L.hr, subtherapeutic * Predicted AUC at steady state: 333 mg/L.hr * Change to 1250 mg IV every 8 hours, regimen is predicted to achieve target AUC/JEREMIAS of 400-600 mg/L.hr * Repeat random level ordered for: 07/15/22 Cefepime 2g IV q8h Pharmacy will continue to follow and will adjust dose/frequency as necessary. Thank you.
[2022-07-13] MEDS: ACETAMINOPHEN 325 MG TAB PO PRN (09:45)
[2022-07-13] MEDS: LORazepam 0.5 MG TAB PO PRN ×2 (09:45→20:49)
--- NOTE | 2022-07-13 10:01 | Pharmacy Report ---
Pharmacy Glycemic Short Note 2 - Date of Service July 13, 2022 - Glycemic Short BSG Results (Last 24 hours): 07/12/22 07/12/22 07/12/22 10:24 11:19 16:34 Glucose POC Glucose 226 H 203 H 126 H 07/12/22 07/13/22 07/13/22 20:22 05:50 08:45 Glucose 96 POC Glucose 118 H 118 H OUTPATIENT ANTIDIABETIC REGIMEN: * Humulin R 35 units SC prior to meals/snacks for BSG > 175 mg/dL * Ozempic 1 mg SC every Sunday * HbA1c: 6.9% (07/12/22) ASSESSMENT: 07/13/22: * Patient received 53 units of insulin yesterday - 30 units basal, 23 units bolus. * Patient NPO this AM for surgery scheduled at 4pm today, hold NPH today, resume tomorrow BID with meals 07/12/22: * BSGs reasonably controlled overnight despite only 4 units of Novolog * NPH administration delayed last evening and ended up being held due to it being several hours past meal * NPH also delayed this morning (not given until 1058), patient may require increased NPH, but will be conservative with tonight's dosing in light of this late administration 07/11/22: * 61 yo M admitted on 07/11/22 secondary to a diabetic foot infection. Pharmacy has been consulted to assist with inpatient glycemic management. Of note, patient does have an intolerance to additives in certain insulins. In the past, he has tolerated NPH + Regular insulin at our facility. * Ordered a T2DM diet. Has not eaten yet since admission. Will monitor if patient is tolerating diet. Ordered Vancomycin and Cefepime for infection. * BSGs since admission have been 184 and 138 mg/dL. Will order NPH + regular insulin based on previous admission data. PLAN FOR INPATIENT GLYCEMIC CONTROL: * Hold outpatient GLP1-RA * Basal insulin * Hold NPH for NPO status, surgery 4pm today * Likely resume at NPH 15 units with breakfast and 10 units with dinner tomorrow * Bolus insulin * Novolin R per scale ACHS or Q6hrs while NPO * Goal Range: Low 110 mg/dL - High 140 mg/dL * Correction Factor: 20 mg/dL/unit * Nutritional / Prandial insulin per carb ratio of 1 unit per 6 grams CHO consumed
--- NOTE | 2022-07-13 16:29 | History & Physical Report ---
Date of Service July 13, 2022 Assessment & Plan (1) Wound of left foot: (2) Uncontrolled type II diabetes mellitus: (3) Small cell lung cancer: (4) Insulin dependent type 2 diabetes mellitus: (5) Depression with anxiety: (6) HTN (hypertension): (7) HLD (hyperlipidemia): Plan Mr. Carcamo is a 61 y/o M who presented to the [facility] ED from his PCP office with complaints of pain swelling and redness on his left leg and foot. +purulent drainage noted on his left third toe with lymphangetic streaks on the distal 2/3 of his left foot. Left foot x-ray suggests age indeterminate osteomyelitis and erosion of the majority of the left third distal phalanx with soft tissue swelli ng; suggestive of acute osteomyelitis. Pt states that his pain started about two days ago. He does have a vertical 1 cm laceration on the mid-plantar portion of his foot that he said occurred yesterday when he stepped on a piece of glass. He denies having recent fever or chills. Pt does have palpable pedal pulses bilaterally. Pt does not appear toxic; without leukocytosis, afebrile, no tachycardia. He has a history of 1st and 2nd toe amputations. Additional PMH includes: SCLCA with brain metastasis diagnosed in 2018 s/p chemotherapy and radiation treatment (under the care of Dr. Gale, but has not had recent follow up), H/O of PE (was on Lovenox but discontinued due to ICH), depression and anxiety, IDDM2, AF, HTN, HLD, and GERD. Wound of left foot: + pain, swelling and redness on his left foot. + purulent drainage noted on his left third toe with lymphangitic streaks on the distal 2/3 of his left foot. Left foot x-ray suggests age indeterminate osteomyelitis and erosion of the majority of the left third distal phalanx with soft tissue swelling; suggestive of acute osteomyelitis. vertical 1 cm laceration on the mid-plantar portion of his foot that he said occurred yesterday when he stepped on a piece of glass. Left foot CT with contrast IMPRESSION: Status post amputation of the first ray at the first metatarsal mid diaphysis and second ray at the second digit MTP. Ulcer plantar to the third metatarsal head. No definite CT evidence of osteomyelitis however, MRI should be considered for further evaluation. Erosion of the third digit distal phalanx, concerning for osteomyelitis. MRI foot IMPRESSION: 1. Approximately 5.1 x 4.9 cm loculated soft tissue fluid collection surrounding the majority of the third toe extending along the plantar surface of the second through fourth MTP joints. This likely represents an abscess. There is a small focal skin ulceration along the plantar surface of the third MTP joint. 2. Mild marrow edema within the head of the third metatarsal without abnormal T1 signal or destructive change to confirm the presence osteomyelitis. This may represent a mild osteitis. 3. Small joint effusion at the third MTP joint. 4. Prior first and second toe amputations. Fibroid scattered foci susceptibility artifact consistent with the metallic foreign body is better appreciated on the prior radiograph. 5. Diffuse soft tissue edema and enhancement within the forefoot suggestive of a cellulitis. 6. Truncated appearance of the distal phalanx of the third toe which could be due to prior amputation or prior osteomyelitis. Signal intensity of the truncated distal phalanx of the third toe is not well assessed due to its small size. ED started Cefepime + Vanco ; continue and adjust based on ID consult ID consult placed TDAP ordered WOCN consult Ortho/Podiatry consulted - discussed exam findings and MRI - plan for OR tomorrow (07/13/22), NPO after MN Uncontrolled type 2 diabetes mellitus: A1C 06/28/22: 7.0 Denies using SSI; takes Ozempic; last dose on Sunday Place on FSBS ACHS SSI; Glycemic consult for management of Lantus Small cell lung CA: with brain metastasis diagnosed in 2018 s/p chemotherapy and radiation treatment under the care of Dr. Gale, but has not had recent follow up No home supplemental O2 Depression with anxiety: Tobacco use: Recent loss of a 2 year old son; elevated his anxiety; began smoking cigarettes again HTN: Normotensive in ED. Not on any home medications for BP HLD: Takes Rosuvastatin; continue Lipid panel: 06/28/22: TG 271, HDL 36, LDL 164 H/O of PE: was on Lovenox but discontinued due to ICH, unknown date Disposition: PCP: Dr. Zamudio CODE STATUS: Full code VTE prophylaxis: Teds and SCDs for now Admission and Anticipated Discharge Date Admission Date: July 11, 2022 History of Present Illness Primary Care Provider: Efraín Zamudio MD Allergies Allergy/AdvReac Type Severity Reaction Status Date / Time clindamycin Allergy Severe SHORTNESS Verified 07/11/22 16:52 OF BREATH dextromethorphan Allergy Severe HARD TO Verified 07/11/22 16:52 BREATHE? guaifenesin Allergy Severe HARD TO Verified 07/11/22 16:52 BREATHE? amoxicillin Allergy Intermediate SHORTNESS Verified 07/11/22 16:52 OF BREATH insulin aspart Allergy Unknown ALLERGIC Verified 07/11/22 16:52 TO PRESERVATIVES IN NOVOLOG - OK WITH REGULAR/NPH sitagliptin Allergy Unknown UNKNOWN RXN Verified 07/11/22 16:52 adhesive AdvReac Intermediate "rips his Verified 07/11/22 16:52 skin off" atorvastatin AdvReac Intermediate diarrhea Verified 07/11/22 16:52 duloxetine AdvReac Intermediate Abdominal Verified 07/11/22 16:52 Pain escitalopram AdvReac Intermediate GI UPSET Verified 07/11/22 16:52 gabapentin AdvReac Intermediate CONSTIPATIO Verified 07/11/22 16:52 N propoxyphene AdvReac Intermediate "DID CRAZY Verified 07/11/22 16:52 THINGS" tizanidine AdvReac Intermediate Diarrhea Verified 07/11/22 16:52 metformin AdvReac Unknown PT STATES Verified 07/11/22 16:52 "DID NOT WORK" Home Medications Medication Instructions Recorded Confirmed Type rizatriptan 10 mg tablet 10 mg PO DIRECTED PRN Migraine 04/18/21 07/11/22 History Headache rosuvastatin 40 mg tablet 40 mg PO HS 04/18/21 07/11/22 History albuterol sulfate 90 mcg/actuation 2 puff inhalation Q4H PRN Wheezing 07/11/22 07/11/22 History aerosol inhaler (ProAir HFA) melatonin 5 mg tablet 5 mg PO HS PRN Insomnia 07/11/22 07/11/22 History semaglutide 1 mg/dose (4 mg/3 mL) 1 mg subcut WK 07/11/22 07/11/22 History subcutaneous pen injector (Ozempic) trazodone 50 mg tablet 25 mg PO HS 07/11/22 07/11/22 History zolpidem 5 mg tablet 5 mg PO HS PRN Sleep 07/11/22 07/11/22 History Past Med/Surg History Medical History Afib No anticoagulation Pt states a fib was secondary to previous pericardial effusion Anxiety Chronic back pain Chronic headaches Following with neuro Chronic ulcer of left foot Pt denies any current issues- resolved COPD (chronic obstructive pulmonary disease) COPD (chronic obstructive pulmonary disease) Breathing stable No oxygen needed Depression Depression with anxiety Diabetic foot ulcer with osteomyelitis Diabetic peripheral neuropathy DKA, type 2 DVT of upper extremity (deep vein thrombosis) Poor historian - unsure of when dx'ed DVT prophylaxis HLD (hyperlipidemia) HTN (hypertension) Hyperlipidemia Hypertension Insomnia Insomnia Insulin dependent type 2 diabetes mellitus Glucose improving Neuropathy To bilateral feet Open wound of left great toe Osteomyelitis No current issues Osteomyelitis of great toe of left foot Partial nontraumatic amputation of left foot Pericardial effusion Resolved per May 2020 ECHO per cardio records Follows with cardio Post laminectomy syndrome Post traumatic stress disorder Pulmonary emboli Was on Lovenox in the past but stopped due to brain hemorrhage Sepsis Skin ulcer of left great toe with necrosis of bone Small cell lung cancer With mets to the brain- dx'ed 2018- s/p XRT No current issues Smoking Surgical History History of back surgery x4 History of hernia surgery x4 History of knee surgery Right knee- has ligaments removed- has to wear brace or knee locates History of surgery Pericardiocentesis Nov 2019 Social History Smoking Status: Current some day smoker Tobacco Type: Cigarettes packs per day: 1; Cigarettes Per Day: 1.5packs/days x 40 years (intermittently); Second Hand Exposure: No; Hx Alcohol Use: No Hx Substance Use: No Preferred Language: Indonesian Communication Ability: Effective Communication Ability Comment: alert and oriented x3 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: No Beliefs That Will Affect Care: None marital status: Current Living Situation: Alone Current Living Situation Comment: Currently at [facility] current occupational status: disabled Feels Safe at Home: Yes Safety Concerns: Feels Safe At This Time caffeine: Yes during the past year weight has: remained stable Physical Activity Frequency: Does not Exercise Gender Identity: Male Assistive Devices: Cane and Oxygen - at Night Results & Data Results & Data Vital Signs (Past 12 Hours) Vital Signs Temp Pulse Pulse Resp BP BP Pulse Ox 07/13/22 15:00 36.3 C L 98 H 16 107/69 97 07/13/22 14:09 110 H 07/13/22 07:32 37.0 C 99 H 20 121/77 96 07/13/22 06:03 109 H 07/13/22 04:42 36.8 C 98 H 18 103/62 95 O2 Del Method 07/13/22 15:00 Room Air 07/13/22 14:09 07/13/22 07:32 Room Air 07/13/22 06:03 07/13/22 04:42 Room Air Code Status & VTE Plan VTE Prophylaxis Plan VTE Prophylaxis will be ordered: Yes
[2022-07-13] MEDS ORDERED: PROPOFOL IV EMULSION 10 MG/ML 20 ML VIAL IV ONE ×3 (16:37→17:27)
[2022-07-13] MEDS ORDERED: MIDAZOLAM HCL 1 MG/ML 2ML VIAL ONE (16:37)
[2022-07-13] MEDS ORDERED: LIDOCAINE 2% MPF LOCAL 5 ML VIAL ONE (16:37)
--- NOTE | 2022-07-13 16:38 | History & Physical Bridge Note ---
Date of Service July 13, 2022 History & Physical Bridge Note I have examined the patient, reviewed the History & Physical and in the interval since the performance of the History & Physical I have noted the following changes of clinical significance: no changes noted
[2022-07-13] MEDS ORDERED: ceFAZolin 330 MG/ML 1 GM VIAL ONE (16:39)
[2022-07-13] MEDS ORDERED: BUPIVACAINE 0.5 % 5 MG/1 ML MPF 30ML VIAL ONE (16:39)
--- NOTE | 2022-07-13 16:42 | Hospitalist Progress Note ---
Date of Service July 13, 2022 Assessment & Plan (1) Wound of left foot: (2) Uncontrolled type II diabetes mellitus: (3) Small cell lung cancer: (4) Insulin dependent type 2 diabetes mellitus: (5) Depression with anxiety: (6) HTN (hypertension): (7) HLD (hyperlipidemia): (8) Osteomyelitis: (9) Cellulitis: (10) Anxiety: (11) Migraines: Plan 61yo gentleman with Hx of DMII and past toe amputations who was admitted with cellulitis and osteomyelitis of the left toe and foot. Wound of left foot/Osteomyelitis/Cellulitis -Due for surgery today with podiatry -Appreciate ID recs- recommending adding Flagyl to cefepime and vancomycin. -Pt can eat after surgery Uncontrolled type 2 diabetes mellitus: A1C 06/28/22: 7.0 ISS while hospitalized Hold home ozempic Small cell lung CA: with brain metastasis diagnosed in 2018 s/p chemotherapy and radiation treatment Follows with Dr. Gale, recommend continued follow up HTN: Not currently on meds for HTN HLD: Continue home statin Insomnia -continue home meds, trazodone and ambien Anxiety -has prn ativan ordered Migraines -continue home maxalt, tylenol Diet: NPO until surgery CODE STATUS: Full code DVT prophylaxis: Teds and SCDs, consider medical prophylaxis Admission and Anticipated Discharge Date Admission Date: July 11, 2022 Subjective Pt seen in the AM before surgery. States he is feeling ok. States that he was on ozempic and insulin in the past for his diabetes, following with his pcp. Denied acute concerns. Review of Systems Review of Systems: All systems reviewed & are unremarkable except as noted in Subjective Physical Exam Physical Exam: General: Alert, oriented. No acute distress Skin: No noted rashes or bruises Psych: Appropriate mood and affect Neuro: No gross deficits HEENT: NC/AT, Chest: Nontender to palpation. CV: RRR, Normal s1, s2. No murmurs appreciated Resp: Breath sounds clear bilaterally, no increased effort of breathing. No crackles/rhonchi/rales. Abdomen: Soft, nontender, nondistended. Extremities: bandaged left foot Results & Data Results & Data Vital Signs (Past 12 Hours) Vital Signs Temp Pulse Pulse Pulse Resp BP BP 07/13/22 16:20 36.6 C 100 H 18 119/88 07/13/22 15:00 36.3 C L 98 H 16 107/69 07/13/22 14:09 110 H 07/13/22 07:32 37.0 C 99 H 20 121/77 07/13/22 06:03 109 H Pulse Ox O2 Del Method 07/13/22 16:20 97 Room Air 07/13/22 15:00 97 Room Air 07/13/22 14:09 07/13/22 07:32 96 Room Air 07/13/22 06:03
[2022-07-13] MEDS ORDERED: ONDANSETRON INJ 2 MG/ML 2 ML VIAL IV PRN (16:45)
[2022-07-13] MEDS ORDERED: ATROPINE SULFATE 0.1 MG/ML 10ML SYR IV PRN (16:45)
[2022-07-13] MEDS ORDERED: ePHEDrine sulfate 50 MG/ML AMP IV PRN (16:45)
--- NOTE | 2022-07-13 16:45 | Anesthesiology Consultation ---
Date of Service July 13, 2022 Assessment & Plan Chart Review Chart Review: Acceptable Risk for Surgery and Patient NOT seen in Pre Admission Testing Consults Requested none ASA ASA4 Proposed Anesthesia Anesthesia Type: MAC Risk / Benefits Reviewed With: PT / POA / Parent / Guardian, Accepts Plan and Informed Consent Obtained History Surgery Operation Date: 07/13/22 07:00 Proposed Procedures p Incision and Drainage Left Foot - Efraín Wilson DPM, MS s 3rd Ray Amputation Left Foot - Efraín Wilson DPM, MS Height/Weight Height: 6 ft 4 in Weight: 106.4 kg Allergies Allergy/AdvReac Type Severity Reaction Status Date / Time clindamycin Allergy Severe SHORTNESS Verified 07/11/22 16:52 OF BREATH dextromethorphan Allergy Severe HARD TO Verified 07/11/22 16:52 BREATHE? guaifenesin Allergy Severe HARD TO Verified 07/11/22 16:52 BREATHE? amoxicillin Allergy Intermediate SHORTNESS Verified 07/11/22 16:52 OF BREATH insulin aspart Allergy Unknown ALLERGIC Verified 07/11/22 16:52 TO PRESERVATIVES IN NOVOLOG - OK WITH REGULAR/NPH sitagliptin Allergy Unknown UNKNOWN RXN Verified 07/11/22 16:52 adhesive AdvReac Intermediate "rips his Verified 07/11/22 16:52 skin off" atorvastatin AdvReac Intermediate diarrhea Verified 07/11/22 16:52 duloxetine AdvReac Intermediate Abdominal Verified 07/11/22 16:52 Pain escitalopram AdvReac Intermediate GI UPSET Verified 07/11/22 16:52 gabapentin AdvReac Intermediate CONSTIPATIO Verified 07/11/22 16:52 N propoxyphene AdvReac Intermediate "DID CRAZY Verified 07/11/22 16:52 THINGS" tizanidine AdvReac Intermediate Diarrhea Verified 07/11/22 16:52 metformin AdvReac Unknown PT STATES Verified 07/11/22 16:52 "DID NOT WORK" Medications Home Medications Medication Instructions Recorded Confirmed Last Taken rizatriptan 10 mg tablet 10 mg PO DIRECTED PRN Migraine 04/18/21 07/11/22 Headache rosuvastatin 40 mg tablet 40 mg PO HS 04/18/21 07/11/22 09/13/21 albuterol sulfate 90 mcg/actuation 2 puff inhalation Q4H PRN Wheezing 07/11/22 07/11/22 Unknown aerosol inhaler (ProAir HFA) melatonin 5 mg tablet 5 mg PO HS PRN Insomnia 07/11/22 07/11/22 Unknown semaglutide 1 mg/dose (4 mg/3 mL) 1 mg subcut WK 07/11/22 07/11/22 Unknown subcutaneous pen injector (Ozempic) trazodone 50 mg tablet 25 mg PO HS 07/11/22 07/11/22 Unknown zolpidem 5 mg tablet 5 mg PO HS PRN Sleep 07/11/22 07/11/22 Unknown Active Medications Generic Name Dose Route Start Last Admin Trade Name Freq PRN Reason Stop Dose Admin Acetaminophen 650 mg 07/11/22 17:19 07/13/22 09:45 Acetaminophen 325 Mg Tab PO 08/10/22 17:18 650 mg Q4H PRN Administration Pain or Fever Cefepime HCl 2,000 mg/ Syringe 20 mls @ 5 mls/min 07/12/22 00:00 07/13/22 15:33 IV 07/19/22 00:00 5 mls/min Q8H LUCIANA Administration Protocol Vancomycin HCl 1,250 mg/ 275 mls @ 200 mls/hr 07/13/22 09:00 07/13/22 16:25 Sodium Chloride IV 07/18/22 17:00 200 mls/hr Q8H LUCIANA Administration Protocol Insulin Human NPH 15 units 07/13/22 08:30 07/13/22 08:57 Insulin Human Nph SC 08/12/22 08:29 Not Given DAILY@0800 [facility] Protocol Insulin Human Regular 0 units 07/13/22 09:00 07/13/22 12:52 Insulin Human Regular SC 08/12/22 08:59 Not Given Q6 LUCIANA Protocol Lorazepam 0.5 mg 07/12/22 22:36 07/13/22 09:45 Lorazepam 0.5 Mg Tab PO 08/11/22 22:35 0.5 mg TID PRN Administration Anxiety Melatonin 3 mg 07/11/22 18:32 07/12/22 22:57 Melatonin 3 Mg Tab PO 08/10/22 18:31 3 mg HSZ PRN Administration Sleep Rosuvastatin Calcium 40 mg 07/11/22 21:00 07/12/22 21:17 Rosuvastatin Calcium 20 Mg Tab PO 08/10/22 20:59 40 mg HS LUCIANA Administration Sodium Chloride 2 sprays 07/11/22 20:46 07/11/22 22:08 Sodium Chloride 0.65% Na Soln 45 Ml ([facility]) NA 08/10/22 20:45 2 sprays BID PRN Administration Nasal Congestion Zolpidem Tartrate 5 mg 07/11/22 18:15 07/12/22 22:57 Zolpidem Tartrate 5 Mg Tab PO 08/10/22 18:14 5 mg HS PRN Administration Sleep NPO Date Last Intake of Fluids: 07/13/22 Time Last Intake of Fluids: 00:00 Last Intake of Fluids Comment: medication Date Last Intake of Solids: 07/13/22 Time Last Intake of Solids: 00:00 Past Medical History Medical History Afib No anticoagulation Pt states a fib was secondary to previous pericardial effusion Anxiety Chronic back pain Chronic headaches Following with neuro Chronic ulcer of left foot Pt denies any current issues- resolved COPD (chronic obstructive pulmonary disease) COPD (chronic obstructive pulmonary disease) Breathing stable No oxygen needed Depression Depression with anxiety Diabetic foot ulcer with osteomyelitis Diabetic peripheral neuropathy DKA, type 2 DVT of upper extremity (deep vein thrombosis) Poor historian - unsure of when dx'ed DVT prophylaxis HLD (hyperlipidemia) HTN (hypertension) Hyperlipidemia Hypertension Insomnia Insomnia Insulin dependent type 2 diabetes mellitus Glucose improving Neuropathy To bilateral feet Open wound of left great toe Osteomyelitis No current issues Osteomyelitis of great toe of left foot Partial nontraumatic amputation of left foot Pericardial effusion Resolved per May 2020 ECHO per cardio records Follows with cardio Post laminectomy syndrome Post traumatic stress disorder Pulmonary emboli Was on Lovenox in the past but stopped due to brain hemorrhage Sepsis Skin ulcer of left great toe with necrosis of bone Small cell lung cancer With mets to the brain- dx'ed 2017- s/p XRT No current issues Smoking Exercise / Class Metabolic Activity II 4-5 Yardwork/Stairs/Walk up hill Past Surgical History Surgical History History of back surgery x4 History of hernia surgery x4 History of knee surgery Right knee- has ligaments removed- has to wear brace or knee locates History of surgery Pericardiocentesis Nov 2019 Past Anesthesia History No Hx of Anesthesia Complications and No Family Hx of Anesthesia Complications History of PONV No Hx of PONV and No Hx of Motion Sickness Social History Smoking Status: Current some day smoker tobacco type: cigarettes Smoking cigarettes per day: 1.5packs/days x 40 years (intermittently) Hx Alcohol Use: No Hx Substance Use: No substance use type: does not use Physical Exam Vital Signs Last Vital Signs Temp 36.6 C 07/13/22 16:20 Pulse 100 H 07/13/22 16:20 Resp 18 07/13/22 16:20 BP 119/88 07/13/22 16:20 Pulse Ox 97 07/13/22 16:20 O2 Del Method Room Air 07/13/22 16:20 ENMT Mouth: no dentition abnormality Thyromental Distance: > or= 3.5 Finger Breadths Mallampati Class: II Neck normal visual inspection Respiratory normal respiratory effort Auscultation: lungs clear to auscultation bilaterally Cardiovascular Rate/Rhythm: regular rate and regular rhythm Psychiatric Orientation: alert Testing Laboratory Results 07/13/22 05:50 07/13/22 05:50 Hemoglobin A1c 6.9 % (4.5-5.6) H 07/12/22 07:07 Urine Color Dark Yellow 07/11/22 20:44 Urine Appearance Cloudy (Clear) A 07/11/22 20:44 Urine pH 8.0 (4.5-7.5) H 07/11/22 20:44 Ur Specific [place] 1.020 (1.000-1.030) 07/11/22 20:44 Urine Protein 1+ (Negative) H 07/11/22 20:44 Urine Glucose (UA) Negative (Negative) 07/11/22 20:44 Urine Ketones Negative (Negative) 07/11/22 20:44 Urine Nitrite Negative (Negative) 07/11/22 20:44 Ur Leukocyte Esterase Negative (Negative) 07/11/22 20:44 Urine WBC (Auto) 1-5 /hpf (0-5) 07/11/22 20:44 Urine RBC (Auto) 0-4 /hpf (0-4) 07/11/22 20:44 U Hyaline Cast (Auto) 0 /lpf (0-5) 07/11/22 20:44 U Epithel Cells (Auto) 0-5 /lpf (0-5) 07/11/22 20:44 Urine Bacteria (Auto) Negative (Negative) 07/11/22 20:44 04/20/23 04/20/23 12:42 08:45 POC Glucose 174 H 118 H
[2022-07-13] MEDS ORDERED: INSULIN HUMAN NPH SC SCH (17:00)
[2022-07-13] MEDS ORDERED: fentaNYL citrate PF 100 MCG/2 ML VIAL ONE (17:16)
--- NOTE | 2022-07-13 17:55 | Post Operative Brief Note ---
Immediate Post Op Note v1 Date of Surgery July 13, 2022 Pre & Post Diagnosis Operation Date: 07/13/22 07:00 <No data on this case meets the specified criteria> I identified the patient and participated in the time-out.: Yes Procedure Operation Date: 07/13/22 07:00 <No data on this case meets the specified criteria> Surgeon Efraín Wilson, IMER, MS Ribbon Cutter none Estimated Blood Loss 10 Findings Consistent with Post-Op Diagnosis
[2022-07-13] MEDS: fentaNYL citrate PF 100 MCG/2 ML VIAL IV PRN ×2 (18:05→18:14)
--- NOTE | 2022-07-13 18:19 | Anesthesiology Progress Note ---
Date of Service July 13, 2022 Anesthesia Post Procedure Vital Signs Vital Signs: Temp Pulse Pulse Pulse Resp BP BP 07/13/22 16:20 36.6 C 100 H 18 119/88 07/13/22 15:00 36.3 C L 98 H 16 107/69 07/13/22 14:09 110 H 07/13/22 07:32 37.0 C 99 H 20 121/77 07/13/22 06:03 109 H 07/13/22 04:42 36.8 C 98 H 18 103/62 07/12/22 22:37 102 H 07/12/22 22:35 36.6 C 96 H 18 131/88 Pulse Ox O2 Del Method 07/13/22 16:20 97 Room Air 07/13/22 15:00 97 Room Air 07/13/22 14:09 07/13/22 07:32 96 Room Air 07/13/22 06:03 07/13/22 04:42 95 Room Air 07/12/22 22:37 07/12/22 22:35 97 Room Air Pain Intensity Left Toe: Pain Intensity: 8 Head: Pain Intensity: 10 Transfer of Care Handoff Completed per policy Notes Mental Status: alert / awake / arousable Patient Amnestic to Procedure: Yes Nausea / Vomiting: adequately controlled Pain: adequately controlled Airway Patency, RR, SpO2: stable & adequate BP & HR: stable & adequate Hydration State: stable & adequate Anesthetic Complications: no major complications apparent and Pt Satisfied with anesthetic care
--- NOTE | 2022-07-13 18:32 | Fluoroscopy Report ---
FL toe LT 2V CLINICAL HISTORY: LT TOE AMPstatus post amputation of the left third toe COMPARISON STUDY: Left foot radiographs 07/11/2022 FLUOROSCOPY TIME: 29 seconds FLUOROSCOPY IMAGES: 1 EXPOSURE DOSE: 0.53 mGy FINDINGS: Radiopaque foreign body again noted adjacent to the first metatarsal stump. Prior amputatio n of the second toe at the level of the metatarsophalangeal joint. Status post partial amputation of the third toe at the level of the third metatarsal neck. Expected postoperative soft tissue swelling with deep tissue air. IMPRESSION: Fluoroscopic assistance as above. ACT 112: Negative or not required by law. Electronically signed by: Herb Hyde M.D. 07/13/2022 6:31 PM
[2022-07-13] MEDS: metroNIDAZOLE 500 MG/100 ML BAG IV SCH (20:02)
[2022-07-13] MEDS ORDERED: Nursing to Pharmacy Communication SCH (20:15)
--- NOTE | 2022-07-13 20:41 | Operative Report ---
Post Operative Report Pre & Post Diagnosis Operation Date: 07/13/22 07:00 Pre-Op Diagnosis: Osteomyelitis Post-Op Diagnosis: Osteomyelitis I identified the patient and participated in the time-out.: Yes Procedure Operation Date: 07/13/22 07:00 Actual Procedures p Incision and Drainage Left Foot(Left) - Efraín Wilson DPM, MS s 3rd Ray Amputation Left Foot(Left) - Efraín Wilson DPM, MS Surgeon Efraín Wilson DPM, MS Filing Or Registry Clerk none Estimated Blood Loss 10 Findings Consistent with Post-Op Diagnosis Consistent with pre operative findings Specimens 1.) Deep tissue swab Left foot wound micro 2.) Left third toe pathology 3.) Left third metatarsal micro 4.) Foreign body left foot Description of Procedure History of present illness: Patient is a type II diabetic, 61 year old male who is seen for left foot ulcer with suspected osteomyelitis of the left third toe and metatarsal. Recent MRI has also identified a 5.1 x 4.9 cm loculated soft tissue fluid collection. Patient also relates history of metal fragments in foot also identified on diagnostic imaging he is adamant these be removed as well. Patient has a history of previous first and second toe amputations. I discussed planed procedures in detail. All questions answered. Discussed postoperative recovery. All potential risks, benefits, complications, alternatives, rehab, potential for incomplete relief of symptoms, need for further surgery, DVT, PE, , persistent pain, swelling, scarring, weakness, neurovascular, wound complications and potential for amputations were discussed with patient. Unwanted outcomes such as, but not limited to were reviewed including under correction, overcorrection, return of deformity, infection. All questions were answered. Patient has decided to proceed with procedure as indicated. Preoperative diagnosis: 1.) Diabetic ulcer osteomyelitis distal phalanx left third toe and third metatarsal 2.) Left foot abscess 3.) Left foot foreign body Postoperative diagnosis: same Name of operation: 1.) Incision and drainage 2.) Amputation left third ray 3.) Removal of deep complicated forei gn body 4.) Delayed Primary Closure Surgeon Dr. Wilson Filing Or Registry Clerk: None Anesthesia: local with monitored anesthesia care Hemostasis: pneumatic ankle tourniquet Estimated blood loss: minimal Procedure in detail: Under mild sedation the patient was brought in the operating room placed on the operating table in supine position. A pneumatic ankle tourniquet was then placed about the patient's left ankle. Following IV sedation local anesthesia was obtained about the left foot utilizing 10 cc of 1% lidocaine. The foot was then prepped scrubbed and draped in usual aseptic manner. An Esmarch bandage was utilized to exsanguinate the patient's left foot and the pneumatic ankle tourniquet was then inflated. Attention was then directed to a nonhealing diabetic ulcer on the distal aspect of the left third toe. An incision was created utilizing a sharp, sterile, #15 blade surrounding the third toe of the left foot. The incision which was deepened through subcutaneous tissue using sharp blunt dissection. Care was taken to identify and retract all vital neurovascular structures. All bleeders were ligated and cauterized necessary. At this time the left third toe was removed at the Metatarsal Phalangeal joint and placed on the back table. The left third toe was labeled and sent to pathology. At this time further dissection allowed for visualization of the third metatarsal head and distal shaft. The third metatarsal head was visually darken and dusky. Utilizing an oscillating bone saw the metatarsal head was removed and placed on the back table. The third metatarsal was labeled and sent to microbiology. At this time deep cultures were taken. Next attention was directed to the abscess visualized on MRI imaging. Further dissection allowed for release. No trafficking was observed. Copious amounts of lactate ringer on low flow cysto tubing was utilized to irrigate the incision site. At this time mini C-arm was utilized to locate multiple metal fragments located along the resected first metatarsal. . An incision was created utilizing a sharp, sterile, #15 blade over the observed foreign body of the left foot. The incision which was deepened through subcutaneous tissue using sharp blunt dissection. Care was taken to identify and retract all vital neurovascular structures. All bleeders were ligated and cauterized necessary. At this time the foreign body was visualized and removed from the left foot. The foreign body was labeled and sent to pathology. Further irrigation was applied. The foreign body incision site was then primarily closed utilizing 4-0 nylon in horizontal suture mattress techniques as well as simple suture closure. Retention sutures were placed at the third ray resection site which may require skin plasty for closure. Upon completion of the procedure the wounds were dressed with Betadine soaked Adaptic followed by sterile compressive dressing consisting of 4 x 4's Cynthia Kerlix ABD. The pneumatic ankle tourniquet was deflated and a prompt hyperemic response was noted to the left foot. An Asad wrap was then applied. The Patient tolerated the procedure and anesthesia well. He was transferred to recovery room vital signs stable and vascular status intact to the left foot following. After a period of postoperative monitoring the patient will be readmitted to the floor. Contact Dr. Wilson for all postoperative care if any problems arise . I attest to the content of the Intraoperative Record and any orders documented therein. Any exceptions are noted below.
[2022-07-13] MEDS: ZOLPIDEM TARTRATE 5 MG TAB PO PRN (20:49)
[2022-07-13] MEDS: oxyCODONE HCL IR 5 MG TAB (IMMEDIATE RELEASE) PO PRN (20:49)
[2022-07-13] MEDS: ROSUVASTATIN CALCIUM 20 MG TAB PO SCH (20:49)
[2022-07-14] MEDS: CEFEPIME 2,000 MG in SYRINGE 0 ML IV SCH ×4 (01:02→23:27)
[2022-07-14] MEDS: VANCOMYCIN HCL 1,250 MG in SODIUM CHLORIDE 0.9% 250 ML IV SCH ×3 (01:07→17:11)
[2022-07-14] MEDS: metroNIDAZOLE 500 MG/100 ML BAG IV SCH ×3 (01:11→18:35)
[2022-07-14] MEDS: RIZATRIPTAN BENZOATE 10 MG TAB PO PRN ×2 (01:12→19:36)
[2022-07-14] MEDS: oxyCODONE HCL IR 5 MG TAB (IMMEDIATE RELEASE) PO PRN ×4 (01:16→20:48)
[2022-07-14] MEDS: ACETAMINOPHEN 325 MG TAB PO PRN ×4 (03:43→20:48)
[2022-07-14 07:54] LABS: Basophils # (auto) 0.06 K/uL (0-0.2); Basophils % (auto) 0.7 %; Eosinophils # (auto) 0.27 K/uL (0-0.50); Eosinophils % (auto) 3.2 %; Hematocrit (blood only) 40.4 % (42.0-52.0); Hemoglobin 13.8 g/dl (14.0-18.0); Immature Granulocytes # (auto) 0.05 K/uL (0.01-0.20); Immature Granulocytes % (auto) 0.6 %; Lymphocytes # (auto) 0.81 K/uL (1.2-3.4); Lymphocytes % (auto) 9.5 %; Mean Corpuscular Hemoglobin 31.8 pg (25.0-34.0); Mean Corpuscular Hgb Conc 34.2 g/dL (32.0-36.0); Mean Corpuscular Volume 93.1 fL (80.0-100.0); Mean Platelet Volume 10.7 fL (9.4-12.4); Monocytes # (auto) 0.81 K/uL (0.11-0.59); Monocytes % (auto) 9.5 %; Neutrophils # (auto) 6.51 K/uL (1.40-6.50); Neutrophils % (auto) 76.5 %; Platelet Count 247 K/uL (130-400); RDW Coefficient of Variation 12.5 % (11.5-14.5); RDW Standard Deviation 43.1 fL (36.4-46.3); Red Blood Count 4.34 M/uL (4.70-6.10); White Blood Count 8.51 K/ul (4.8-10.8)
[2022-07-14] MEDS ORDERED: INSULIN HUMAN NPH SC SCH (08:15)
[2022-07-14 08:16] LABS: BUN Creatinine Ratio 17.9 (10-20); Calcium 8.7 mg/dl (8.6-10.3); Creatinine Clr Calc Pharmacy 160.8 ml/min; Est GFR (African American) 121.9 ml/min; Est GFR (Non-African American) 105.2 ml/min; Potassium 4.2 mmol/L (3.5-5.1)
[2022-07-14] MEDS: INSULIN HUMAN REGULAR SC SCH ×4 (09:28→20:48)
--- NOTE | 2022-07-14 18:29 | Hospitalist Progress Note ---
Date of Service July 14, 2022 Assessment & Plan (1) Wound of left foot: (2) Uncontrolled type II diabetes mellitus: (3) Small cell lung cancer: (4) Insulin dependent type 2 diabetes mellitus: (5) Depression with anxiety: (6) HTN (hypertension): (7) HLD (hyperlipidemia): (8) Osteomyelitis: (9) Cellulitis: (10) Anxiety: (11) Migraines: Plan 61yo gentleman with Hx of DMII and past toe amputations who was admitted with cellulitis and osteomyelitis of the left toe and foot. Wound of left foot/Osteomyelitis/Cellulitis -Pt with osteomyelitis of left 3rd toe and metatarsal with abscess. -s/p left 3rd toe amputation and I&D with podiatry on 07/14/22. -Appreciate ID recs- recommended adding Flagyl to cefepime and vancomycin. -Follow surgical cultures and narrow abx as needed -Appreciate podiatry and ID recs. -PT/OT Back pain Has prn tylenol and oxycodone ordered. -continue to monitor Uncontrolled type 2 diabetes mellitus: A1C 06/28/22: 7.0 ISS while hospitalized- pt refusing today Hold home ozempic Small cell lung CA: with brain metastasis diagnosed in 2018 s/p chemotherapy and radiation treatment Follows with Dr. Gale, recommend continued follow up HTN: Not currently on meds for HTN HLD: Continue home statin Insomnia -continue home meds, trazodone and ambien Anxiety -has prn ativan ordered Migraines -continue home maxalt, tylenol Diet: DM diet CODE STATUS: Full code DVT prophylaxis: Teds and SCDs, consider medical prophylaxis Admission and Anticipated Discharge Date Admission Date: July 11, 2022 Subjective Pt seen this AM. States he is having some back acevedo, believes it might be related to having to lay on the OR table. Notes he has a chronic history of this. States that he was on ozempic and insulin in the past for his diabetes, refusing insulin today. Denied acute concerns. Has had a BM after surgery, tolerating food well. Review of Systems Review of Systems: All systems reviewed & are unremarkable except as noted in Subjective Physical Exam Physical Exam: General: Alert, oriented. No acute distress Skin: No noted rashes or bruises Psych: Appropriate mood and affect Neuro: No gross deficits HEENT: NC/AT CV: RRR, Normal s1, s2. No murmurs appreciated Resp: Breath sounds clear bilaterally, no increased effort of breathing. Abdomen: Soft, nontender, nondistended. No guarding. No organomegaly a ppreciated. Extremities: No edema in lower extremities bilaterally. Results & Data Results & Data Vital Signs (Past 12 Hours) Vital Signs Temp Pulse Pulse Resp BP BP Pulse Ox 07/14/22 15:35 93 H 07/14/22 14:55 36.5 C 94 H 18 121/77 97 07/14/22 11:44 36.7 C 89 18 104/65 98 07/14/22 09:41 92 H 07/14/22 08:24 36.5 C 94 H 18 122/79 95 O2 Del Method 07/14/22 15:35 07/14/22 14:55 Room Air 07/14/22 11:44 Room Air 07/14/22 09:41 07/14/22 08:24 Room Air
[2022-07-14] MEDS: INSULIN HUMAN NPH SC SCH (18:57)
[2022-07-14] MEDS: ROSUVASTATIN CALCIUM 20 MG TAB PO SCH (20:49)
[2022-07-14] MEDS: ZOLPIDEM TARTRATE 5 MG TAB PO PRN (20:49)
--- NOTE | 2022-07-14 21:32 | Orthopedic Progress Note ---
Date of Service July 14, 2022 Assessment & Plan (1) Osteomyelitis: Plan: Patient seen, evaluated, and treated. Dressing intact. Awaiting final cultures and sensitivities. Dispensed Surgical Shoe. Weight bearing to heel only. Will continue to follow while in house. (2) Cellulitis: (3) Insulin dependent type 2 diabetes mellitus: Admission and Anticipated Discharge Date Admission Date: July 11, 2022 Subjective Patient status post day #1 left foot surgery. Patient notes no complaints. Review of Systems Review of Systems: All systems reviewed & are unremarkable except as noted in Subjective Physical Exam Constitutional: + disheveled Eyes: normal visual shabazz by confrontation Neck: trachea midline Respiratory: normal respiratory effort Cardiovascular: Rate/Rhythm: regular rate and regular rhythm Psychiatric: Orientation: alert and oriented x 3 Results & Data Vital Signs (Past 12 Hours) Vital Signs Temp Pulse Pulse Resp BP BP Pulse Ox 07/14/22 19:04 36.7 C 101 H 18 129/81 96 07/14/22 15:35 93 H 07/14/22 14:55 36.5 C 94 H 18 121/77 97 07/14/22 11:44 36.7 C 89 18 104/65 98 07/14/22 09:41 92 H O2 Del Method 07/14/22 19:04 Room Air 07/14/22 15:35 07/14/22 14:55 Room Air 07/14/22 11:44 Room Air 07/14/22 09:41
[2022-07-15] MEDS: metroNIDAZOLE 500 MG/100 ML BAG IV SCH ×2 (00:02→08:52)
[2022-07-15] MEDS: VANCOMYCIN HCL 1,250 MG in SODIUM CHLORIDE 0.9% 250 ML IV SCH ×2 (00:58→09:46)
[2022-07-15] MEDS ORDERED: LORATADINE 10 MG TAB PO ONE (03:30)
[2022-07-15] MEDS: RIZATRIPTAN BENZOATE 10 MG TAB PO PRN ×2 (05:38→16:12)
[2022-07-15 05:54] LABS: Basophils # (auto) 0.05 K/uL (0-0.2); Basophils % (auto) 0.6 %; Eosinophils # (auto) 0.18 K/uL (0-0.50); Eosinophils % (auto) 2.3 %; Hemoglobin 14.9 g/dl (14.0-18.0); Immature Granulocytes # (auto) 0.04 K/uL (0.01-0.20); Immature Granulocytes % (auto) 0.5 %; Lymphocytes # (auto) 0.64 K/uL (1.2-3.4); Lymphocytes % (auto) 8.1 %; Mean Corpuscular Hemoglobin 31.6 pg (25.0-34.0); Mean Corpuscular Hgb Conc 34.7 g/dL (32.0-36.0); Mean Corpuscular Volume 91.1 fL (80.0-100.0); Mean Platelet Volume 10.5 fL (9.4-12.4); Monocytes # (auto) 0.75 K/uL (0.11-0.59); Monocytes % (auto) 9.5 %; Platelet Count 264 K/uL (130-400); RDW Coefficient of Variation 12.3 % (11.5-14.5); RDW Standard Deviation 41.7 fL (36.4-46.3); Red Blood Count 4.72 M/uL (4.70-6.10); White Blood Count 7.86 K/ul (4.8-10.8)
[2022-07-15 06:12] LABS: BUN Creatinine Ratio 20.3 (10-20); Calcium 9.1 mg/dl (8.6-10.3); Creatinine Clr Calc Pharmacy 145.6 ml/min; Potassium 4.5 mmol/L (3.5-5.1)
[2022-07-15] MEDS ORDERED: VANCOMYCIN LEVEL ONE (08:30)
[2022-07-15] MEDS: INSULIN HUMAN REGULAR SC SCH ×2 (08:45→13:29)
[2022-07-15] MEDS: oxyCODONE HCL IR 5 MG TAB (IMMEDIATE RELEASE) PO PRN ×3 (08:51→20:54)
[2022-07-15] MEDS: ACETAMINOPHEN 325 MG TAB PO PRN ×2 (08:51→15:39)
[2022-07-15] MEDS: CEFEPIME 2,000 MG in SYRINGE 0 ML IV SCH (09:47)
--- NOTE | 2022-07-15 10:10 | Pharmacy Report ---
Pharmacy PK ABX Note - Date of Service July 15, 2022 - Assessment and Plan Assessment 61 year old M receiving IV Vancomycin, Cefepime, and metronidazole for treatment of diabetic foot infection, osteomyelitis left third toe s/p I&D and 3rd ray amputation on 07/13. Renal function stable. Operative cultures from 07/13 are (+) MSSA. Primary team wishes to await ID recs for de-escalation. Day # 5 of antimicrobial therapy. Plan Vancomycin * Current regimen: 1250 mg IV every 8 hours * Random level this AM, 16mcg/mL (~4.5hr level) predicted to achieve a steady state AUC of 439mg/L.hr which is therapeutic. * Continue vancomycin 1250mg IV q8h * Will repeat a level in 48 hr or sooner if clinically indicated. Pharmacy will continue to follow and will adjust dose/frequency as necessary. Thank you.
--- NOTE | 2022-07-15 13:39 | Pharmacy Report ---
Pharmacy Glycemic Short Note 2 - Date of Service July 15, 2022 - Glycemic Short BSG Results (Last 24 hours): 07/14/22 07/14/22 07/15/22 16:31 20:24 05:30 Glucose 112 H POC Glucose 153 H 135 H 07/15/22 07/15/22 07:46 11:39 Glucose POC Glucose 147 H 239 H OUTPATIENT ANTIDIABETIC REGIMEN: * Humulin R 35 units SC prior to meals/snacks for BSG > 175 mg/dL * Ozempic 1 mg SC every Sunday * HbA1c: 6.9% (07/12/22) ASSESSMENT: 07/15/22: * BSGs have remained reasonably well-controlled despite patient refusing insulin for past 48 hours * Patient is agreeable to twice daily Lantus scale - will discontinue short- acting insulin and utilize conservative basal scale only 07/13/22: * Patient received 53 units of insulin yesterday - 30 units basal, 23 units bolus. * Patient NPO this AM for surgery scheduled at 4pm today, hold NPH today, resume tomorrow BID with meals 07/12/22: * BSGs reasonably controlled overnight despite only 4 units of Novolog * NPH administration delayed last evening and ended up being held due to it being several hours past meal * NPH also delayed this morning (not given until 1058), patient may require increased NPH, but will be conservative with amelia's dosing in light of this late administration 07/11/22: * 61 yo M admitted on 07/11/22 secondary to a diabetic foot infection. Pharmacy has been consulted to assist with inpatient glycemic management. Of note, patient does have an intolerance to additives in certain insulins. In the past, he has tolerated NPH + Regular insulin at our facility. * Ordered a T2DM diet. Has not eaten yet since admission. Will monitor if patient is tolerating diet. Ordered Vancomycin and Cefepime for infection. * BSGs since admission have been 184 and 138 mg/dL. Will order NPH + regular insulin based on previous admission data. PLAN FOR INPATIENT GLYCEMIC CONTROL: * Hold outpatient GLP1-RA * Basal insulin * Lantus 0-10 units SC BID (see EHR for details) * Bolus insulin * Hold - patient refusing
--- NOTE | 2022-07-15 15:44 | Hospitalist Progress Note ---
Date of Service July 15, 2022 Assessment & Plan (1) Osteomyelitis: Plan: 61yo gentleman with Hx of DMII and past toe amputations who was admitted with cellulitis and osteomyelitis of the left toe and foot. Wound of left foot/Osteomyelitis/Cellulitis Pt with osteomyelitis of left 3rd toe and metatarsal with abscess. s/p left 3rd toe amputation and I&D with podiatry on 07/14/22. Initially ID recommended adding Flagyl to cefepime and vancomycin. Cultures growing MSSA ID recommends iv Ancef 2gm tid for 6 weeks and followup with ID in 4 weeks Back pain ON prn tylenol and oxycodone ordered. Will monitor Uncontrolled type 2 diabetes mellitus: A1C 06/28/22: 7.0 Hold home ozempic refused insulin but currently seems agreeing on insulin glargine protocol glycemic pharmacy consulted. will monitor Small cell lung CA: with brain metastasis diagnosed in 2018 s/p chemotherapy and radiation treatment Follows with Dr. Gale, recommend continued follow up HTN: Not currently on meds for HTN will monitor HLD: on statin Insomnia on trazodone and ambien prn ativan ordered on home maxalt, tylenol Diet: DM diet CODE STATUS: Full code DVT prophylaxis: Teds and SCDs, consider medical prophylaxis (2) Cellulitis: (3) Small cell lung cancer: (4) Migraines: (5) Insulin dependent type 2 diabetes mellitus: Admission and Anticipated Discharge Date Admission Date: July 11, 2022 Subjective seems comfortable says has some pain at surgery site ambulating with walker afebrile denies chest pain or sob no nausea says diet coke causing blurry vision says has constant migraines Review of Systems Review of Systems: As above Physical Exam Constitutional: WD/WN, vitals as above Eyes: EOMI Neck: trachea midline, no thyromegaly Respiratory: normal respiratory effort, lungs clear to auscultation Cardiovascular: RRR, no murmur, no edema Gastrointestinal (Abdomen): normal bowel sounds, soft, nontender, no hepatosplenomegaly Skin: no rashes, warm and dry Neurologic: alert and oriented no facial droop speech clear insight ok obeys commands moves extremities Results & Data Results & Data Vital Signs (Past 12 Hours) Vital Signs Temp Pulse Pulse Resp BP BP Pulse Ox 07/15/22 08:00 93 H 07/15/22 11:51 36.6 C 96 H 20 101/61 94 07/15/22 08:17 36.6 C 98 H 20 110/66 95 O2 Del Method 07/15/22 08:00 07/15/22 11:51 Room Air 07/15/22 08:17 Room Air
[2022-07-15] MEDS: ceFAZolin 2000MG 2,000 MG/15 ML SYR IV SCH ×2 (16:12→22:48)
--- NOTE | 2022-07-15 20:03 | Orthopedic Progress Note ---
Date of Service July 15, 2022 Assessment & Plan (1) Osteomyelitis: Plan: Patient seen, evaluated, and treated. Dressing change with out incident. Positive signs of healing. Final cultures and sensitivities reviewed. Dispensed Surgical Shoe. Weight bearing to heel only. Discussed delayed primary closure Sunday07/16/22. I reviewed procedure in detail as well as postoperative recovery. I discussed expectations and patient's current weightbearing status. All questions answered. I have discussed procedure in detail as well as postoperative recovery. All potential risks, benefits, complications, alternatives, rehab, potential for incomplete relief of symptoms, need for further surgery, DVT, PE, , persistent pain, swelling, scarring, weakness, neurovascular, wound complications and potential for amputations were discussed with patient. [place]wan rakesh outcomes such as, but not limited to were reviewed including under correction, overcorrection, return of deformity, infection. All questions were answered. Patient has decided to proceed with procedure as indicated. (2) Cellulitis: (3) Insulin dependent type 2 diabetes mellitus: Admission and Anticipated Discharge Date Admission Date: July 11, 2022 Subjective Patient seen at bedside. Status post day #2 left foot surgery. Patient notes no immediate complaints regarding surgical site. Review of Systems Review of Systems: All systems reviewed & are unremarkable except as noted in Subjective Physical Exam Constitutional: + disheveled Eyes: normal visual shabazz by confrontation Neck: trachea midline Respiratory: normal respiratory effort Cardiovascular: Rate/Rhythm: regular rate and regular rhythm Skin: Surgical site open. No erythema. No signs of infection. Retention sutures intact. Psychiatric: Orientation: alert and oriented x 3 Results & Data Vital Signs (Past 12 Hours) Vital Signs Temp Pulse Pulse Resp BP BP Pulse Ox 07/15/22 19:10 36.5 C 92 H 18 120/78 92 07/15/22 17:06 93 H 07/15/22 15:56 36.7 C 97 H 20 115/72 97 07/15/22 08:00 93 H 07/15/22 11:51 36.6 C 96 H 20 101/61 94 07/15/22 08:17 36.6 C 98 H 20 110/66 95 O2 Del Method 07/15/22 19:10 Room Air 07/15/22 17:06 07/15/22 15:56 Room Air 07/15/22 08:00 07/15/22 11:51 Room Air 07/15/22 08:17 Room Air
[2022-07-15] MEDS: MELATONIN 3 MG TAB PO PRN (20:54)
[2022-07-15] MEDS: LANTUS PER UNIT CHARGE SC SCH (20:54)
[2022-07-15] MEDS: ROSUVASTATIN CALCIUM 20 MG TAB PO SCH (20:54)
[2022-07-15] MEDS: ZOLPIDEM TARTRATE 5 MG TAB PO PRN (20:55)
[2022-07-15] MEDS: LORazepam 0.5 MG TAB PO PRN (20:55)
[2022-07-16] MEDS: oxyCODONE HCL IR 5 MG TAB (IMMEDIATE RELEASE) PO PRN ×4 (03:16→20:37)
[2022-07-16] MEDS: ACETAMINOPHEN 325 MG TAB PO PRN ×3 (03:16→14:09)
[2022-07-16 05:52] LABS: Basophils # (auto) 0.05 K/uL (0-0.2); Basophils % (auto) 0.7 %; Eosinophils % (auto) 2.9 %; Hematocrit (blood only) 42.2 % (42.0-52.0); Hemoglobin 14.5 g/dl (14.0-18.0); Immature Granulocytes # (auto) 0.03 K/uL (0.01-0.20); Immature Granulocytes % (auto) 0.4 %; Lymphocytes # (auto) 0.94 K/uL (1.2-3.4); Lymphocytes % (auto) 13.5 %; Mean Corpuscular Hemoglobin 31.8 pg (25.0-34.0); Mean Corpuscular Hgb Conc 34.4 g/dL (32.0-36.0); Mean Corpuscular Volume 92.5 fL (80.0-100.0); Mean Platelet Volume 10.5 fL (9.4-12.4); Monocytes # (auto) 0.76 K/uL (0.11-0.59); Monocytes % (auto) 10.9 %; Neutrophils # (auto) 4.99 K/uL (1.40-6.50); Neutrophils % (auto) 71.6 %; Platelet Count 243 K/uL (130-400); RDW Coefficient of Variation 12.5 % (11.5-14.5); RDW Standard Deviation 42.5 fL (36.4-46.3); Red Blood Count 4.56 M/uL (4.70-6.10); White Blood Count 6.97 K/ul (4.8-10.8)
[2022-07-16 06:11] LABS: BUN Creatinine Ratio 23.9 (10-20); Calcium 9.3 mg/dl (8.6-10.3); Creatinine Clr Calc Pharmacy 149.4 ml/min; Est GFR (Non-African American) 102.7 ml/min; Potassium 4.3 mmol/L (3.5-5.1)
--- NOTE | 2022-07-16 07:10 | Anesthesiology Consultation ---
Date of Service July 16, 2022 Assessment & Plan (1) Encounter for pre-operative examination: Chart Review Chart Review: Acceptable Risk for Surgery History Surgery Operation Date: 07/13/22 07:00 Proposed Procedures p Incision and Drainage Left Foot - Efraín Wilson DPM, MS s 3rd Ray Amputation Left Foot - Efraín Wilson DPM, MS Operation Date: 07/16/22 07:30 Proposed Procedures p Delayed primary closure of Left foot wound(Left) - Efraín Wilson DPM, MS Height/Weight Height: 6 ft 4 in Weight: 105.5 kg Allergies Allergy/AdvReac Type Severity Reaction Status Date / Time clindamycin Allergy Severe SHORTNESS Verified 07/11/22 16:52 OF BREATH dextromethorphan Allergy Severe HARD TO Verified 07/11/22 16:52 BREATHE? guaifenesin Allergy Severe HARD TO Verified 07/11/22 16:52 BREATHE? amoxicillin Allergy Intermediate SHORTNESS Verified 07/11/22 16:52 OF BREATH insulin aspart Allergy Unknown ALLERGIC Verified 07/11/22 16:52 TO PRESERVATIVES IN NOVOLOG - OK WITH REGULAR/NPH sitagliptin Allergy Unknown UNKNOWN RXN Verified 07/11/22 16:52 adhesive AdvReac Intermediate "rips his Verified 07/11/22 16:52 skin off" atorvastatin AdvReac Intermediate diarrhea Verified 07/11/22 16:52 duloxetine AdvReac Intermediate Abdominal Verified 07/11/22 16:52 Pain escitalopram AdvReac Intermediate GI UPSET Verified 07/11/22 16:52 gabapentin AdvReac Intermediate CONSTIPATIO Verified 07/11/22 16:52 N propoxyphene AdvReac Intermediate "DID CRAZY Verified 07/11/22 16:52 THINGS" tizanidine AdvReac Intermediate Diarrhea Verified 07/11/22 16:52 metformin AdvReac Unknown PT STATES Verified 07/11/22 16:52 "DID NOT WORK" Medications Home Medications Medication Instructions Recorded Confirmed Last Taken rizatriptan 10 mg tablet 10 mg PO DIRECTED PRN Migraine 04/18/21 07/11/22 09/14/21 Headache rosuvastatin 40 mg tablet 40 mg PO HS 04/18/21 07/11/22 09/13/21 albuterol sulfate 90 mcg/actuation 2 puff inhalation Q4H PRN Wheezing 07/11/22 07/11/22 Unknown aerosol inhaler (ProAir HFA) melatonin 5 mg tablet 5 mg PO HS PRN Insomnia 07/11/22 07/11/22 Unknown semaglutide 1 mg/dose (4 mg/3 mL) 1 mg subcut WK 07/11/22 07/11/22 Unknown subcutaneous pen injector (Ozempic) trazodone 50 mg tablet 25 mg PO HS 07/11/22 07/11/22 Unknown zolpidem 5 mg tablet 5 mg PO HS PRN Sleep 07/11/22 07/11/22 Unknown Active Medications Generic Name Dose Route Start Last Admin Trade Name Freq PRN Reason Stop Dose Admin Acetaminophen 650 mg 07/11/22 17:19 07/16/22 03:16 Acetaminophen 325 Mg Tab PO 08/10/22 17:18 650 mg Q4H PRN Administration Pain or Fever Cefazolin Sodium 2,000 mg in 15 mls @ 3.75 mls/min 07/15/22 15:00 07/15/22 22:48 Ancef 2000mg IV 08/26/22 14:59 3.75 mls/min Q8H LUCIANA Administration Insulin Glargine 0 units 07/15/22 21:00 07/15/22 20:54 Lantus Per Unit Charge SC 08/14/22 20:59 Not Given BID [facility] Protocol Lorazepam 0.5 mg 07/12/22 22:36 07/15/22 20:55 Lorazepam 0.5 Mg Tab PO 08/11/22 22:35 0.5 mg TID PRN Administration Anxiety Melatonin 3 mg 07/11/22 18:32 07/15/22 20:54 Melatonin 3 Mg Tab PO 08/10/22 18:31 3 mg HSZ PRN Administration Sleep Oxycodone HCl 5 mg 07/13/22 20:38 07/16/22 03:16 Oxycodone Hcl Ir 5 Mg Tab (Immediate Release) PO 07/27/22 20:37 5 mg Q4H PRN Administration Pain Rizatriptan Benzoate 10 mg 07/13/22 16:28 07/15/22 16:12 Rizatriptan Benzoate 10 Mg Tab PO 08/10/22 18:14 10 mg TID PRN Administration migraine headache Rosuvastatin Calcium 40 mg 07/11/22 21:00 07/15/22 20:54 Rosuvastatin Calcium 20 Mg Tab PO 08/10/22 20:59 40 mg HS LUCIANA Administration Sodium Chloride 2 sprays 07/11/22 20:46 07/11/22 22:08 Sodium Chloride 0.65% Na Soln 45 Ml ([place]) NA 08/10/22 20:45 2 sprays BID PRN Administration Nasal Congestion Zolpidem Tartrate 5 mg 07/11/22 18:15 07/15/22 20:55 Zolpidem Tartrate 5 Mg Tab PO 08/10/22 18:14 5 mg HS PRN Administration Sleep NPO Date Last Intake of Fluids: 07/13/22 Time Last Intake of Fluids: 00:00 Last Intake of Fluids Comment: medication Date Last Intake of Solids: 07/13/22 Time Last Intake of Solids: 00:00 Past Medical History Medical History Afib No anticoagulation Pt states a fib was secondary to previous pericardial effusion Anxiety Chronic back pain Chronic headaches Following with neuro Chronic ulcer of left foot Pt denies any current issues- resolved COPD (chronic obstructive pulmonary disease) COPD (chronic obstructive pulmonary disease) Breathing stable No oxygen needed Depression Depression with anxiety Diabetic foot ulcer with osteomyelitis Diabetic peripheral neuropathy DKA, type 2 DVT of upper extremity (deep vein thrombosis) Poor historian - unsure of when dx'ed DVT prophylaxis HLD (hyperlipidemia) HTN (hypertension) Hyperlipidemia Hypertension Insomnia Insomnia Insulin dependent type 2 diabetes mellitus Glucose improving Neuropathy To bilateral feet Open wound of left great toe Osteomyelitis No current issues Osteomyelitis of great toe of left foot Partial nontraumatic amputation of left foot Pericardial effusion Resolved per May 2020 ECHO per cardio records Follows with cardio Post laminectomy syndrome Post traumatic stress disorder Pulmonary emboli Was on Lovenox in the past but stopped due to brain hemorrhage Sepsis Skin ulcer of left great toe with necrosis of bone Small cell lung cancer With mets to the brain- dx'ed 2018- s/p XRT No current issues Smoking Past Surgical History Surgical History History of back surgery x4 History of hernia surgery x4 History of knee surgery Right knee- has ligaments removed- has to wear brace or knee locates History of surgery Pericardiocentesis Nov 2019 Social History Smoking Status: Current some day smoker tobacco type: cigarettes Smoking cigarettes per day: 1.5packs/days x 40 years (intermittently) Hx Alcohol Use: No Hx Substance Use: No substance use type: does not use Physical Exam Vital Signs Last Vital Signs Temp 36.5 C 07/16/22 03:08 Pulse 84 07/16/22 03:08 Resp 18 07/16/22 03:08 BP 102/67 07/16/22 03:08 Pulse Ox 96 07/16/22 03:08 O2 Del Method Room Air 07/16/22 03:08 O2 Flow Rate 5 07/13/22 18:10 Testing Laboratory Results 07/16/22 05:29 07/16/22 05:29 Hemoglobin A1c 6.9 % (4.5-5.6) H 07/12/22 07:07 Urine Color Dark Yellow 07/11/22 20:44 Urine Appearance Cloudy (Clear) A 07/11/22 20:44 Urine pH 8.0 (4.5-7.5) H 07/11/22 20:44 Ur Specific [place] 1.020 (1.000-1.030) 07/11/22 20:44 Urine Protein 1+ (Negative) H 07/11/22 20:44 Urine Glucose (UA) Negative (Negative) 07/11/22 20:44 Urine Ketones Negative (Negative) 07/11/22 20:44 Urine Nitrite Negative (Negative) 07/11/22 20:44 Ur Leukocyte Esterase Negative (Negative) 07/11/22 20:44 Urine WBC (Auto) 1-5 /hpf (0-5) 07/11/22 20:44 Urine RBC (Auto) 0-4 /hpf (0-4) 07/11/22 20:44 U Hyaline Cast (Auto) 0 /lpf (0-5) 07/11/22 20:44 U Epithel Cells (Auto) 0-5 /lpf (0-5) 07/11/22 20:44 Urine Bacteria (Auto) Negative (Negative) 07/11/22 20:44 07/13/22 Unknown Gram Stain - Final Toe,Left Third Aerobic and Anaerobic Culture - Preliminary Staphylococcus aureus 07/13/22 Unknown Gram Stain - Final Toe,Left Aerobic and Anaerobic Culture - Preliminary Staphylococcus aureus 07/15/22 20:17 POC Glucose 134 H Echocardiogram Date: 07/02/20 EF: 55-60% LV Function: normal Valvular Disease: + no significant valvular disease
[2022-07-16] MEDS ORDERED: LIDOCAINE 2% MPF LOCAL 5 ML VIAL ONE ×2 (07:30→08:07)
[2022-07-16] MEDS ORDERED: PROPOFOL IV EMULSION 10 MG/ML 20 ML VIAL IV ONE ×2 (07:30→08:07)
--- NOTE | 2022-07-16 07:39 | History & Physical Bridge Note ---
Date of Service July 16, 2022 History & Physical Bridge Note I have examined the patient, reviewed the History & Physical and in the interval since the performance of the History & Physical I have noted the following changes of clinical significance: no changes noted
[2022-07-16] MEDS ORDERED: ONDANSETRON INJ 2 MG/ML 2 ML VIAL IV PRN (07:42)
[2022-07-16] MEDS ORDERED: ATROPINE SULFATE 0.1 MG/ML 10ML SYR IV PRN (07:42)
[2022-07-16] MEDS ORDERED: fentaNYL citrate PF 100 MCG/2 ML VIAL IV PRN (07:42)
[2022-07-16] MEDS ORDERED: fentaNYL citrate PF 100 MCG/2 ML VIAL ONE (07:46)
[2022-07-16] MEDS: ceFAZolin 2000MG 2,000 MG/15 ML SYR IV SCH ×3 (07:56→23:08)
[2022-07-16] MEDS ORDERED: ONDANSETRON INJ 2 MG/ML 2 ML VIAL ONE (08:07)
[2022-07-16] MEDS ORDERED: PHENYLEPHRINE HCL 10 MG/ML VIAL ONE (08:12)
--- NOTE | 2022-07-16 08:19 | Post Operative Brief Note ---
Immediate Post Op Note v1 Date of Surgery July 16, 2022 Pre & Post Diagnosis Operation Date: 07/16/22 07:30 Pre-Op Diagnosis: Osteomyelitis Post-Op Diagnosis: Osteomyelitis I identified the patient and participated in the time-out.: Yes Procedure Operation Date: 07/16/22 07:30 Actual Procedures p Delayed primary closure of wound left foot(Left) - Efraín Wilson DPM, MS Surgeon Efraín Wilson DPM, MS Executive Secretary Social Welfare none Estimated Blood Loss 3 Findings Consistent with Post-Op Diagnosis none
[2022-07-16] MEDS: LANTUS PER UNIT CHARGE SC SCH ×2 (09:24→20:30)
[2022-07-16] MEDS: RIZATRIPTAN BENZOATE 10 MG TAB PO PRN ×2 (09:57→20:46)
--- NOTE | 2022-07-16 11:30 | Anesthesiology Progress Note ---
Date of Service July 16, 2022 Anesthesia Post Procedure Vital Signs Vital Signs: Temp Pulse Pulse Pulse Resp BP BP 07/16/22 10:42 36.3 C L 91 H 19 122/81 07/16/22 10:03 36.3 C L 89 19 115/73 07/16/22 09:00 80 18 110/71 07/16/22 08:50 36.3 C L 78 14 108/74 07/16/22 08:40 84 12 104/79 07/16/22 08:30 36.2 C L 85 15 99/62 L 07/16/22 07:56 36.5 C 85 19 125/82 07/16/22 03:08 36.5 C 84 18 102/67 07/15/22 22:01 95 H 07/16/22 00:25 07/15/22 22:25 36.5 C 92 H 18 112/73 07/15/22 19:10 36.5 C 92 H 18 120/78 07/15/22 17:06 93 H 07/15/22 15:56 36.7 C 97 H 20 115/72 07/15/22 11:51 36.6 C 96 H 20 101/61 Pulse Ox O2 Del Method 07/16/22 10:42 94 Room Air 07/16/22 10:03 93 Room Air 07/16/22 09:00 99 Room Air 07/16/22 08:50 98 Room Air 07/16/22 08:40 96 Room Air 07/16/22 08:30 97 Room Air 07/16/22 07:56 97 Room Air 07/16/22 03:08 96 Room Air 07/15/22 22:01 07/16/22 00:25 Room Air 07/15/22 22:25 95 Room Air 07/15/22 19:10 92 Room Air 07/15/22 17:06 07/15/22 15:56 97 Room Air 07/15/22 11:51 94 Room Air Pain Intensity Left Toe: Pain Intensity: 4 Head: Pain Intensity: 9 Transfer of Care Handoff Completed per policy Notes Mental Status: alert / awake / arousable Patient Amnestic to Procedure: Yes Nausea / Vomiting: adequately controlled Pain: adequately controlled Airway Patency, RR, SpO2: stable & adequate BP & HR: stable & adequate Hydration State: stable & adequate Anesthetic Complications: no major complications apparent
[2022-07-16 16:20] LABS: Troponin I High Sensitivity 13.5 pg/ml (0-20)
--- NOTE | 2022-07-16 18:44 | Hospitalist Progress Note ---
Date of Service July 16, 2022 Assessment & Plan (1) Osteomyelitis: Plan: 1) Osteomyelitis: Plan: 61yo gentleman with Hx of DMII and past toe amputations who was admitted with cellulitis and osteomyelitis of the left toe and foot. Wound of left foot/Osteomyelitis/Cellulitis Pt with osteomyelitis of left 3rd toe and metatarsal with abscess. s/p left 3rd toe amputation and I&D with podiatry on 07/14/22. Initially ID recommended adding Flagyl to cefepime and vancomycin. Cultures growing MSSA ID recommends iv Ancef 2gm tid for 6 weeks and followup with ID in 4 weeks s/p Delayed primary closure of wound left foot today 07/16 s/p picc line today Back pain ON prn tylenol and oxycodone ordered. Will monitor Uncontrolled type 2 diabetes mellitus: A1C 06/28/22: 7.0 Hold home ozempic refused insulin but currently seems agreeing on insulin glargine protocol glycemic pharmacy consulted. 134/125/145/161 will monitor Small cell lung CA: with brain metastasis diagnosed in 2018 s/p chemotherapy and radiation treatment Follows with Dr. Gale, recommend continued follow up HTN: Not currently on meds for HTN will monitor HLD: on statin Insomnia on trazodone and ambien prn ativan ordered Migraine home maxalt, tylenol Diet: DM diet CODE STATUS: Full code DVT prophylaxis: Lovenox. Needs iv abx on discharge. Seems patient declining rehab. possible d/c in 1-2 days Admission and Anticipated Discharge Date Admission Date: July 11, 2022 Subjective s/p Delayed primary closure of wound left foot tolerated procedure ok denies any pain'has chronic migarines ambulating with walker eating ok no nausea no chest pain or sob Review of Systems Review of Systems: As above Physical Exam Constitutional: WD/WN, vitals as above Eyes: EOMI Neck: trachea midline, no thyromegaly Respiratory: normal respiratory effort, lungs clear to auscultation Cardiovascular: RRR, no murmur, no edema Gastrointestinal (Abdomen): normal bowel sounds, soft, nontender, no hepatosplenomegaly Musculoskeletal: left foot in dressing Neurologic: alert and Oriented speech clear no facial droop obeys commands moves extremities Results & Data Results & Data Vital Signs (Past 12 Hours) Vital Signs Temp Pulse Pulse Pulse Resp BP BP 07/16/22 16:26 102 H 04/23/23 15:57 36.5 C 91 H 20 119/75 07/16/22 11:36 36.3 C L 75 19 112/73 07/16/22 10:42 36.3 C L 91 H 19 122/81 07/16/22 10:03 36.3 C L 89 19 115/73 07/16/22 09:00 80 18 110/71 07/16/22 08:50 36.3 C L 78 14 108/74 07/16/22 08:40 84 12 104/79 07/16/22 08:30 36.2 C L 85 15 99/62 L 07/16/22 07:56 36.5 C 85 19 125/82 Pulse Ox O2 Del Method 07/16/22 16:26 07/16/22 15:57 96 Room Air 07/16/22 11:36 95 Room Air 07/16/22 10:42 94 Room Air 07/16/22 10:03 93 Room Air 07/16/22 09:00 99 Room Air 07/16/22 08:50 98 Room Air 07/16/22 08:40 96 Room Air 07/16/22 08:30 97 Room Air 07/16/22 07:56 97 Room Air
--- NOTE | 2022-07-16 18:50 | Communication Note ---
Date of Service: July 16, 2022 Had episode of non sustained v tach b8 and 11 beats on monitor. K and mag and troponin ok. Ekg seems ok. Asymptomatic. monitor on tele. ordered echo.
--- NOTE | 2022-07-16 19:07 | Operative Report ---
Post Operative Report Pre & Post Diagnosis Operation Date: 07/16/22 07:30 Pre-Op Diagnosis: Osteomyelitis Post-Op Diagnosis: Osteomyelitis I identified the patient and participated in the time-out.: Yes Procedure Operation Date: 07/16/22 07:30 Actual Procedures p Delayed primary closure of wound left foot(Left) - Efraín Wilson DPM, MS Surgeon Efraín Wilson DPM, MS Electrophysiology Nurse Practitioner none Estimated Blood Loss 3 Findings Consistent with Post-Op Diagnosis none Specimens None Description of Procedure History of present illness: Patient is a diabetic, 61 year oldmale who is seen for delayed primary closure. Patient recently had left third ray resected due to osteomyelitis, Incision and drainage left foot, and removal of foreign body left foot. Due to infection wound was left open to drain and retention sutures were placed. Soft tissue has no demarcated. All questions answered. Discussed procedure in detail and postoperative recovery. All potential risks, benefits, complications, alternatives, rehab, potential for incomplete relief of symptoms, need for further surgery, DVT, PE, , persistent pain, swelling, scarring, weakness, neurovascular, wound complications and potential for amputations were discussed with patient. Unwanted outcomes such as, but not limited to were reviewed including under correction, overcorrection, return of deformity, infection. All questions were answered. Patient has decided to proceed with procedure as indicated. Preoperative diagnosis: 1.) Diabetic foot wound left Postoperative diagnosis: same Name of operation: 1.) Debridement of left foot wound 2.)Secondary closure of surgical wound extensive left foot Surgeon: Dr. Wilson Electrophysiology Nurse Practitioner: None Anesthesia: Monitored anesthesia care Hemostasis: pneumatic ankle tourniquet Estimated blood loss: minimal Procedure in detail: Under mild sedation the patient was brought in the operating room placed on the operating table in supine position. A pneumatic calf tourniquet was then placed about the patient's left calf. Following IV sedation the foot was prepped scrubbed and draped in usual aseptic manner. Attention was then directed to a large surgical deficit of the left foot. The third ray has been resected including an excised plantar diabetic foot wound. The wound measures 8 cm x 3 cm x 2.5 cm. The wound bed shows 30% necrotic or non viable tissue well demarcated. Utilizing a sharp, sterile, #15 blade the wound is voided of non viable soft tissue. Excision debridement is carried down to and including muscle and tendon to achieve a healthy wound bed. Normal saline was then irrigated with into the wound.A plantar rotational skin plasty is utilized in order to gain coverage. At this time wound is closed in layers.Vertical mattress sutures are applied distal to wound as retention sutures utilizing 2-0 nylon.More proximal to wound edges vertical mattress sutures are applied. Finally wound edges are re-approximated using 3-0 nylon with simple suture technique. Upon completion of the procedure the lateral wound was dressed with sterile dressing consisting of 4 x 4's Cynthia Kerlix ABD. The Patient tolerated the procedure and anesthesia well. He was transferred to recovery room vital signs stable and vascular status intact all toes of the left foot following. Following a period of postoperative monitoring the patient will be readmitted to floor with the continuation of all preoperative orders. I attest to the content of the Intraoperative Record and any orders documented therein. Any exceptions are noted below.
[2022-07-16] MEDS: ROSUVASTATIN CALCIUM 20 MG TAB PO SCH (20:29)
[2022-07-16] MEDS: ZOLPIDEM TARTRATE 5 MG TAB PO PRN (20:37)
--- NOTE | 2022-07-17 03:03 | Communication Note ---
Date of Service: July 17, 2022 Patient with NSVT as per RN. Asymptomatic. Serum K 4.2 serum mag 2 AP NSVT Initiate low-dose beta-chelo to suppress ectopy
[2022-07-17] MEDS: METOPROLOL TARTRATE 25 MG TAB PO SCH ×2 (03:16→19:49)
[2022-07-17 04:11] LABS: Hematocrit (blood only) 42.5 % (42.0-52.0); Hemoglobin 14.5 g/dl (14.0-18.0); Mean Corpuscular Hemoglobin 31.3 pg (25.0-34.0); Mean Corpuscular Hgb Conc 34.1 g/dL (32.0-36.0); Mean Corpuscular Volume 91.6 fL (80.0-100.0); Platelet Count 270 K/uL (130-400); RDW Coefficient of Variation 12.5 % (11.5-14.5); RDW Standard Deviation 41.6 fL (36.4-46.3); Red Blood Count 4.64 M/uL (4.70-6.10)
[2022-07-17 04:24] LABS: BUN Creatinine Ratio 24.6 (10-20); Calcium 9.7 mg/dl (8.6-10.3); Creatinine Clr Calc Pharmacy 153.7 ml/min; Est GFR (African American) 120.4 ml/min; Est GFR (Non-African American) 103.9 ml/min; Potassium 4.2 mmol/L (3.5-5.1)
[2022-07-17 04:28] LABS: Basophils # (auto) 0.07 K/uL (0-0.2); Basophils % (auto) 0.7 %; Eosinophils # (auto) 0.22 K/uL (0-0.50); Eosinophils % (auto) 2.3 %; Immature Granulocytes # (auto) 0.02 K/uL (0.01-0.20); Immature Granulocytes % (auto) 0.2 %; Monocytes # (auto) 0.74 K/uL (0.11-0.59); Monocytes % (auto) 7.9 %; Neutrophils # (auto) 6.75 K/uL (1.40-6.50); Neutrophils % (auto) 71.9 %
[2022-07-17] MEDS: ceFAZolin 2000MG 2,000 MG/15 ML SYR IV SCH ×3 (06:36→22:38)
[2022-07-17] MEDS: oxyCODONE HCL IR 5 MG TAB (IMMEDIATE RELEASE) PO PRN ×4 (08:35→22:37)
[2022-07-17] MEDS: LANTUS PER UNIT CHARGE SC SCH ×2 (08:35→20:49)
[2022-07-17] MEDS: ENOXAPARIN INJ 40 MG/0.4 ML SYR SQ SCH (08:36)
[2022-07-17] MEDS: ACETAMINOPHEN 325 MG TAB PO PRN (08:37)
[2022-07-17] MEDS ORDERED: oxyCODONE HCL IR 5 MG TAB (IMMEDIATE RELEASE) PO STA (09:25)
--- NOTE | 2022-07-17 09:48 | Hospitalist Progress Note ---
Date of Service July 17, 2022 Assessment & Plan (1) Cellulitis: Plan: Faint pink proximal to surgical bandage-improved per patient. Cont abx (2) Osteomyelitis: (3) Post-operative state: Plan: s/p L third toe amputatioon on 07/14/22 and I&D of abscess. Per ID cont Ancef 2grams TID 6 weeks and followup with ID in 4 weeks. delayed primary closure of wound on 07/16 PICC line placed 07/16 (4) Small cell lung cancer: Plan: with brain metastasis diagnosed in 2018 s/p chemotherapy and radiation treatment Follows with Dr. Gale, recommend continued follow up (5) Insulin dependent type 2 diabetes mellitus: Plan: chronic, complications. At goal. A1C 06/28/22: 7.0 Hold home ozempic cont basal bolus insulin glycemic pharmacy consulted. (6) Chronic pain: Plan: h/o methadone use in the past reports currently on narcotics as a transition through surgery PCP plans for medical marijuana and is setting that up On outpatient pain contract Reports pain uncontrolled Reports he takes hydrocodone 4-5 times daily, however, that is not reflected in PDMP Will cont current PRN oxy as ordered Schedule Tylenol Schedule Ambien and melatonin for qHS at current dosage without increase to keep in line with outpatient care. Consider additional medication for sleep as needed Avoid narcotics and sleep aids together. (7) Chronic insomnia: Plan: Plans as above. Lovenox Full Code Dispo- pending PT/OT recommendations Ruby Rodriguez DO [facility] Hospitalist Admission and Anticipated Discharge Date Admission Date: July 11, 2022 Subjective 61 yo M [facility] patient, follows with Dr. Zamudio at [facility] for >30 years. Admitted for cellulitis and osteomyelitis of the left foot s/p amputation by Dr. Wilson. he reports pain is 8/10 he states that he should be getting two crestor tabs and he is on max dose He doesn't feel the dose of that is correct. I called his pharmacy [facility] but they don't provide that to him I checked his outpatient records, and he is on 40mg qHS which is what is being given He reports being on Ambien 10mg at home, however, PDMP reports that he gets 5mg qHS He reports being on Melatonin 12mg OTC, however, outpatietn PCP note states he takes 5mg qHS. He reports a history of methadone use, but is off that now and getting hydrocodone 5/325. Per PDMP review he last received #14 tabs in February and is not consistently being prescribed it He reports taking it 4-5 times per day He ate breakfast and is otherwise doing well He repots not sleeping well overnight. Review of Systems Review of Systems: All systems were reviewed and negative except as indicated on HPI above. Physical Exam Physical Exam: CONSTITUTIONAL: WNWD, vitals as above, generally well-appearing, NAD EYES: normal conjunctivae, no scleral icterus, ENT: external ear and nose normal, MMM NECK: trachea midline RESPIRATORY: clear to auscultation bilaterally, no crackles, rales or wheezes, normal respiratory effort CARDIOVASCULAR: regular rate and rhythm, S1 and 2 heard without murmurs, gallops or rubs, no JVD, no peripheral edema CHEST: inspection of chest was normal GASTROINTESTINAL: soft, nontender, ND, no guarding MUSCULOSKELETAL: strength 5/5 throughout, head is normocephalic and atraumatic, moves around the bed independently SKIN: warm and dry, surgical wounds on foot are wrapped with gauze and JOSEPH wrap and this was not opened. NEUROLOGIC: CN 2-12 grossly intact, no sensory deficit, normal cognition, normal speech, no tremor PSYCHIATRIC: alert cooperative and oriented to person, place and time. Euthymic mood, makes good eye contact, language grossly intact, recent and remote memory grossly intact. Results & Data Results & Data Vital Signs (Past 12 Hours) Vital Signs Temp Pulse Pulse Resp BP Pulse Ox O2 Del Method 07/17/22 08:16 36.7 C 91 H 20 107/66 92 Room Air 07/17/22 07:31 94 H 07/17/22 03:37 36.5 C 89 18 125/79 96 Room Air 07/16/22 22:31 36.5 C 92 H 18 125/80 93 Room Air Laboratory Results Short CBC 07/17/22 Range/Units 03:23 WBC 9.40 (4.8-10.8) K/ul Hgb 14.5 (14.0-18.0) g/dl Hct 42.5 (42.0-52.0) % Plt Count 270 (130-400) K/uL BMP 07/17/22 03:23 Sodium 138 Potassium 4.2 Chloride 102 Carbon Dioxide 31 BUN 17 Creatinine 0.69 Glucose 134 H Calcium 9.7 Medications Administered Current Inpatient Medications Acetaminophen (Acetaminophen 500 Mg Tab) 1,000 mg PO Q8H LUCIANA Stop: 08/16/22 16:59 Al Hydrox/Mg Hydrox/Simethicone (Aluminum/Magnesium Susp 30 Ml Udc) 15 ml PO Q4H PRN PRN Reason: Dyspepsia Stop: 08/10/22 17:18 Last Admin: 07/16/22 14:08 Dose: 15 ml Albuterol (Albuterol Hfa 8 Gm Inhaler) 2 puffs INH Q4R PRN PRN Reason: Wheezing Stop: 08/10/22 18:14 Dextrose (Dextrose 50% 50 Ml Syringe) 25 - 50 ml IV UD PRN; Protocol PRN Reason: Hypoglycemia Protocol Stop: 08/10/22 17:18 Enoxaparin Sodium (Enoxaparin Inj 40 Mg/0.4 Ml Syr) 40 mg SQ QAM LUCIANA Stop: 08/16/22 08:59 Last Admin: 07/17/22 08:36 Dose: 40 mg Glucagon (Glucagon For Inj 1 Mg Vial) 1 mg SQ UD PRN; Protocol PRN Reason: Hypoglycemia Protocol Stop: 08/10/22 17:18 Glucose (Glucose 10 Tab/Tube) 4 - 8 tab PO UD PRN; Protocol PRN Reason: Hypoglycemia Treatment Stop: 08/10/22 17:18 Glucose (Glucose 40% Gel 15 Gm Tube) 15 - 30 gm PO UD PRN; Protocol PRN Reason: Hypoglycemia Protocol Stop: 08/10/22 17:18 Heparin Sodium (Beef Lung) (Heparin 10 Unit/Ml 5 Ml Flush) 5 ml FLUSH PRN PRN PRN Reason: Flush Stop: 08/15/22 10:48 Last Admin: 07/16/22 14:17 Dose: 5 ml Cefazolin Sodium (Ancef 2000mg) 2,000 mg in 15 mls @ 3.75 mls/min IV Q8H LUCIANA Stop: 08/26/22 14:59 Last Admin: 07/17/22 06:36 Dose: 3.75 mls/min Insulin Glargine (Lantus Per Unit Charge) 0 units SC BID LUCIANA; Protocol Stop: 08/14/22 20:59 Last Admin: 07/17/22 08:35 Dose: 10 units Lorazepam (Lorazepam 0.5 Mg Tab) 0.5 mg PO TID PRN PRN Reason: Anxiety Stop: 08/11/22 22:35 Last Admin: 07/15/22 20:55 Dose: 0.5 mg Magnesium Hydroxide (Magnesium Hydroxide Susp 30 Ml Udc) 30 ml PO Q12H PRN PRN Reason: Constipation Stop: 08/10/22 17:18 Melatonin (Melatonin 3 Mg Tab) 3 mg PO HSZ PRN PRN Reason: Sleep Stop: 08/10/22 18:31 Last Admin: 07/15/22 20:54 Dose: 3 mg Metoprolol Tartrate (Metoprolol Tartrate 25 Mg Tab) 12.5 mg PO BID LUCIANA Stop: 08/16/22 03:29 Last Admin: 07/17/22 03:16 Dose: 12.5 mg Miscellaneous (Carbohydrates For Hypoglycemia ) 15 - 30 gm PO UD PRN PRN Reason: Hypoglycemia Protocol Stop: 08/10/22 17:18 Miscellaneous Information (Pharmacy Glycemic Mgmt Consult) 1 each N/A UD PRN PRN Reason: Consult Stop: 08/10/22 17:18 Ondansetron HCl (Ondansetron Inj 2 Mg/Ml 2 Ml Vial) 4 mg IV Q6H PRN PRN Reason: Nausea Stop: 08/10/22 17:18 Oxycodone HCl (Oxycodone Hcl Ir 5 Mg Tab (Immediate Release)) 5 mg PO Q4H PRN PRN Reason: Pain Stop: 07/27/22 20:37 Last Admin: 07/17/22 08:35 Dose: 5 mg Polyethylene Glycol (Polyethylene (Miralax) 17 Gm Pack) 17 gm PO DAILY PRN PRN Reason: Constipation Stop: 08/10/22 17:18 Rizatriptan Benzoate (Rizatriptan Benzoate 10 Mg Tab) 10 mg PO TID PRN PRN Reason: migraine headache Stop: 08/10/22 18:14 Last Admin: 07/16/22 20:46 Dose: 10 mg Rosuvastatin Calcium (Rosuvastatin Calcium 20 Mg Tab) 40 mg PO HS LUCIANA Stop: 08/10/22 20:59 Last Admin: 07/16/22 20:29 Dose: 40 mg Sodium Chloride (Sodium Chloride 0.65% Na Soln 45 Ml ([place]abbie)) 2 sprays NA BID PRN PRN Reason: Nasal Congestion Stop: 08/10/22 20:45 Last Admin: 07/11/22 22:08 Dose: 2 sprays Zolpidem Tartrate (Zolpidem Tartrate 5 Mg Tab) 5 mg PO HS PRN PRN Reason: Sleep Stop: 08/10/22 18:14 Last Admin: 07/16/22 20:37 Dose: 5 mg
--- NOTE | 2022-07-17 12:38 | Electrocardiogram Report ---
Test Reason : Blood Pressure : / mmHG Vent. Rate : 086 BPM Atrial Rate : 086 BPM P-R Int : 142 ms QRS Dur : 086 ms QT Int : 398 ms P-R-T Axes : 059 -52 092 degrees QTc Int : 476 ms Normal sinus rhythm Left anterior fascicular block Anterolateral infarct (cited on or before 04-JUN-2022) Abnormal ECG When compared with ECG of 04-JUN-2022 05:18, Inferior infarct are no longer Present Questionable change in initial forces of Lateral leads Confirmed by Nahid Garcia ([id number] on 07/17/2022 12:38:05 PM Referred By: Efraín Zamudio Confirmed By:Nahid Garcia
[2022-07-17] MEDS: ACETAMINOPHEN 500 MG TAB PO SCH (17:19)
[2022-07-17] MEDS: RIZATRIPTAN BENZOATE 10 MG TAB PO PRN (18:12)
[2022-07-17] MEDS: ROSUVASTATIN CALCIUM 20 MG TAB PO SCH (19:48)
--- NOTE | 2022-07-17 22:10 | History & Physical Report ---
Date of Service July 16, 2022 Assessment & Plan Admission and Anticipated Discharge Date Admission Date: July 11, 2022 History of Present Illness Primary Care Provider: Efraín Zamudio MD Patient seen at Allergies Allergy/AdvReac Type Severity Reaction Status Date / Time clindamycin Allergy Severe SHORTNESS Verified 07/11/22 16:52 OF BREATH dextromethorphan Allergy Severe HARD TO Verified 07/11/22 16:52 BREATHE? guaifenesin Allergy Severe HARD TO Verified 07/11/22 16:52 BREATHE? amoxicillin Allergy Intermediate SHORTNESS Verified 07/11/22 16:52 OF BREATH insulin aspart Allergy Unknown ALLERGIC Verified 07/11/22 16:52 TO PRESERVATIVES IN NOVOLOG - OK WITH REGULAR/NPH sitagliptin Allergy Unknown UNKNOWN RXN Verified 07/11/22 16:52 adhesive AdvReac Intermediate "rips his Verified 07/11/22 16:52 skin off" atorvastatin AdvReac Intermediate diarrhea Verified 07/11/22 16:52 duloxetine AdvReac Intermediate Abdominal Verified 07/11/22 16:52 Pain escitalopram AdvReac Intermediate GI UPSET Verified 07/11/22 16:52 gabapentin AdvReac Intermediate CONSTIPATIO Verified 07/11/22 16:52 N propoxyphene AdvReac Intermediate "DID CRAZY Verified 07/11/22 16:52 THINGS" tizanidine AdvReac Intermediate Diarrhea Verified 07/11/22 16:52 metformin AdvReac Unknown PT STATES Verified 07/11/22 16:52 "DID NOT WORK" Home Medications Medication Instructions Recorded Confirmed Type rizatriptan 10 mg tablet 10 mg PO DIRECTED PRN Migraine 04/18/21 07/11/22 History Headache rosuvastatin 40 mg tablet 40 mg PO HS 04/18/21 07/11/22 History albuterol sulfate 90 mcg/actuation 2 puff inhalation Q4H PRN Wheezing 07/11/22 07/11/22 History aerosol inhaler (ProAir HFA) melatonin 5 mg tablet 5 mg PO HS PRN Insomnia 07/11/22 07/11/22 History semaglutide 1 mg/dose (4 mg/3 mL) 1 mg subcut WK 07/11/22 07/11/22 History subcutaneous pen injector (Ozempic) trazodone 50 mg tablet 25 mg PO HS 07/11/22 07/11/22 History zolpidem 5 mg tablet 5 mg PO HS PRN Sleep 07/11/22 07/11/22 History Past Med/Surg History Medical History Afib No anticoagulation Pt states a fib was secondary to previous pericardial effusion Anxiety Chronic back pain Chronic headaches Following with neuro Chronic ulcer of left foot Pt denies any current issues- resolved COPD (chronic obstructive pulmonary disease) COPD (chronic obstructive pulmonary disease) Breathing stable No oxygen needed Depression Depression with anxiety Diabetic foot ulcer with osteomyelitis Diabetic peripheral neuropathy DKA, type 2 DVT of upper extremity (deep vein thrombosis) Poor historian - unsure of when dx'ed DVT prophylaxis HLD (hyperlipidemia) HTN (hypertension) Hyperlipidemia Hypertension Insomnia Insomnia Insulin dependent type 2 diabetes mellitus Glucose improving Neuropathy To bilateral feet Open wound of left great toe Osteomyelitis No current issues Osteomyelitis of great toe of left foot Partial nontraumatic amputation of left foot Pericardial effusion Resolved per May 2020 ECHO per cardio records Follows with cardio Post laminectomy syndrome Post traumatic stress disorder Pulmonary emboli Was on Lovenox in the past but stopped due to brain hemorrhage Sepsis Skin ulcer of left great toe with necrosis of bone Small cell lung cancer With mets to the brain- dx'ed 2018- s/p XRT No current issues Smoking Surgical History History of back surgery x4 History of hernia surgery x4 History of knee surgery Right knee- has ligaments removed- has to wear brace or knee locates History of surgery Pericardiocentesis Nov 2019 Social History Smoking Status: Current some day smoker Tobacco Type: Cigarettes packs per day: 1; Cigarettes Per Day: 1.5packs/days x 40 years (intermittently); Second Hand Exposure: No; Hx Alcohol Use: No Hx Substance Use: No Preferred Language: Korean Communication Ability: Effective Communication Ability Comment: alert and oriented x3 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 Beliefs That Will Affect Care: None marital status: Current Living Situation: Alone Current Living Situation Comment: Currently at [facility] current occupational status: disabled Feels Safe at Home: Yes Safety Concerns: Feels Safe At This Time caffeine: Yes during the past year weight has: remained stable Physical Activity Frequency: Does not Exercise Gender Identity: Male Assistive Devices: Cane and Oxygen - at Night Results & Data Results & Data Vital Signs (Past 12 Hours) Vital Signs Temp Pulse Pulse Pulse Resp BP BP 07/16/22 16:26 102 H 07/16/22 15:57 36.5 C 91 H 20 119/75 07/16/22 11:36 36.3 C L 75 19 112/73 07/16/22 10:42 36.3 C L 91 H 19 122/81 07/16/22 10:03 36.3 C L 89 19 115/73 07/16/22 09:00 80 18 110/71 07/16/22 08:50 36.3 C L 78 14 108/74 07/16/22 08:40 84 12 104/79 07/16/22 08:30 36.2 C L 85 15 99/62 L 07/16/22 07:56 36.5 C 85 19 125/82 Pulse Ox O2 Del Method 07/16/22 16:26 07/16/22 15:57 96 Room Air 07/16/22 11:36 95 Room Air 07/16/22 10:42 94 Room Air 07/16/22 10:03 93 Room Air 07/16/22 09:00 99 Room Air 07/16/22 08:50 98 Room Air 07/16/22 08:40 96 Room Air 07/16/22 08:30 97 Room Air 07/16/22 07:56 97 Room Air Code Status & VTE Plan VTE Prophylaxis Plan VTE Prophylaxis will be ordered: Yes
--- NOTE | 2022-07-17 22:16 | Orthopedic Progress Note ---
Date of Service July 17, 2022 Assessment & Plan (1) Osteomyelitis: Plan: Patient seen, evaluated, and treated. Dressing changed with out incident. Patient weight bearing to heel in surgical shoe. (2) Cellulitis: (3) Insulin dependent type 2 diabetes mellitus: Admission and Anticipated Discharge Date Admission Date: July 11, 2022 Subjective Patient seen at bedside. Patient is status post day #1 delayed primary closure. No complaints. Review of Systems Review of Systems: All systems reviewed & are unremarkable except as noted in Subjective Physical Exam Constitutional: comfortable Neck: trachea midline Respiratory: normal respiratory effort Cardiovascular: Rate/Rhythm: regular rate and regular rhythm pedal pulses palpable Musculoskeletal: Absent first, second, third digits of the left foot. Skin: Skin well co-apted. Sutures intact. Psychiatric: Orientation: alert and oriented x 3 Results & Data Vital Signs (Past 12 Hours) Vital Signs Temp Pulse Pulse Resp BP Pulse Ox O2 Del Method 07/17/22 19:29 36.3 C L 99 H 18 145/87 H 94 Room Air 07/17/22 15:48 36.3 C L 110 H 19 154/80 H 96 Room Air 07/17/22 15:35 101 H 07/17/22 11:46 36.4 C L 87 20 114/76 96 Room Air
[2022-07-17] MEDS: ZOLPIDEM TARTRATE 5 MG TAB PO SCH (22:37)
[2022-07-17] MEDS: MELATONIN 3 MG TAB PO SCH (22:37)
[2022-07-18] MEDS: ACETAMINOPHEN 500 MG TAB PO SCH ×3 (01:32→17:19)
[2022-07-18] MEDS: ceFAZolin 2000MG 2,000 MG/15 ML SYR IV SCH ×3 (05:52→22:06)
[2022-07-18] MEDS: METOPROLOL TARTRATE 25 MG TAB PO SCH ×2 (08:18→19:30)
[2022-07-18] MEDS: oxyCODONE HCL IR 5 MG TAB (IMMEDIATE RELEASE) PO PRN ×3 (08:19→22:03)
[2022-07-18] MEDS: ENOXAPARIN INJ 40 MG/0.4 ML SYR SQ SCH (08:19)
[2022-07-18] MEDS: LANTUS PER UNIT CHARGE SC SCH ×2 (08:26→22:04)
--- NOTE | 2022-07-18 08:29 | Hospitalist Progress Note ---
Date of Service July 18, 2022 Assessment & Plan (1) Cellulitis: Plan: resolved cont Ancef (2) Osteomyelitis: (3) Post-operative state: Plan: s/p L third toe amputatioon on 07/14/22 and I&D of abscess. Per ID cont Ancef 2grams TID 6 weeks and followup with ID in 4 weeks. delayed primary closure of wound on 07/16 PICC line placed 07/16 (4) Small cell lung cancer: Plan: with brain metastasis diagnosed in 2018 s/p chemotherapy and radiation treatment Follows with Dr. Gale, recommend continued follow up (5) Insulin dependent type 2 diabetes mellitus: Plan: chronic, complications. At goal. A1C 06/28/22: 7.0 Hold home ozempic cont basal bolus insulin glycemic pharmacy consulted. (6) Chronic pain: Plan: h/o methadone use in the past reports currently on narcotics as a transition through surgery PCP plans for medical marijuana and is setting that up On outpatient pain contract Reports pain uncontrolled Reports he takes hydrocodone 4-5 times daily, however, that is not reflected in PDMP Will cont current PRN oxy as ordered Schedule Tylenol Schedule Ambien and melatonin for qHS at current dosage without increase to keep in line with outpatient care. Consider additional medication for sleep as needed Avoid narcotics and sleep aids together. (7) Chronic insomnia: Plan: Plans as above. Lovenox Full Code Dispo-stable for discharge to home once home health is set up. Ruby Rodriguez DO [facility] Hospitalist Admission and Anticipated Discharge Date Admission Date: July 11, 2022 Subjective 61 yo M [facility] patient, follows with Dr. Zamudio at [facility] for >30 years. Admitted for cellulitis and osteomyelitis of the left foot s/p amputation by Dr. Wilson. pain is more controlled today trying to cut his toenail s with his butterknife interested in going to walk in the hallways. Review of Systems Review of Systems: All systems were reviewed and negative except as indicated on HPI above. Physical Exam Physical Exam: CONSTITUTIONAL: WNWD, vitals as above, generally well-appearing, NAD EYES: normal conjunctivae, no scleral icterus, ENT: external ear and nose normal, MMM NECK: trachea midline RESPIRATORY: clear to auscultation bilaterally, no crackles, rales or wheezes, normal respiratory effort CARDIOVASCULAR: regular rate and rhythm, S1 and 2 heard without murmurs, gallops or rubs, no JVD, no peripheral edema CHEST: inspection of chest was normal GASTROINTESTINAL: soft, nontender, ND, no guarding MUSCULOSKELETAL: strength 5/5 throughout, head is normocephalic and atraumatic, moves around the bed independently SKIN: warm and dry, surgical wounds on foot are wrapped with gauze and JOSEPH wrap and this was not opened. NEUROLOGIC: CN 2-12 grossly intact, no sensory deficit, normal cognition, normal speech, no tremor PSYCHIATRIC: alert cooperative and oriented to person, place and time. Euthymic mood, makes good eye contact, language grossly intact, recent and remote memory grossly intact. Results & Data Results & Data Vital Signs (Past 12 Hours) Vital Signs Temp Pulse Pulse Resp BP Pulse Ox O2 Del Method 07/18/22 07:32 36.6 C 92 H 18 113/73 94 Room Air 07/18/22 03:43 36.5 C 86 16 112/73 97 Room Air 07/18/22 02:00 90 07/18/22 00:00 Room Air 07/17/22 22:50 36.5 C 93 H 18 124/82 94 Room Air Medications Administered Current Inpatient Medications Acetaminophen (Acetaminophen 500 Mg Tab) 1,000 mg PO Q8H [facility] Stop: 08/16/22 16:59 Last Admin: 07/18/22 08:18 Dose: 1,000 mg Al Hydrox/Mg Hydrox/Simethicone (Aluminum/Magnesium Susp 30 Ml Udc) 15 ml PO Q4H PRN PRN Reason: Dyspepsia Stop: 08/10/22 17:18 Last Admin: 07/16/22 14:08 Dose: 15 ml Albuterol (Albuterol Hfa 8 Gm Inhaler) 2 puffs INH Q4R PRN PRN Reason: Wheezing Stop: 08/10/22 18:14 Dextrose (Dextrose 50% 50 Ml Syringe) 25 - 50 ml IV UD PRN; Protocol PRN Reason: Hypoglycemia Protocol Stop: 08/10/22 17:18 Enoxaparin Sodium (Enoxaparin Inj 40 Mg/0.4 Ml Syr) 40 mg SQ QAM LUCIANA Stop: 08/16/22 08:59 Last Admin: 07/18/22 08:19 Dose: 40 mg Glucagon (Glucagon For Inj 1 Mg Vial) 1 mg SQ UD PRN; Protocol PRN Reason: Hypoglycemia Protocol Stop: 08/10/22 17:18 Glucose (Glucose 10 Tab/Tube) 4 - 8 tab PO UD PRN; Protocol PRN Reason: Hypoglycemia Treatment Stop: 08/10/22 17:18 Glucose (Glucose 40% Gel 15 Gm Tube) 15 - 30 gm PO UD PRN; Protocol PRN Reason: Hypoglycemia Protocol Stop: 08/10/22 17:18 Heparin Sodium (Beef Lung) (Heparin 10 Unit/Ml 5 Ml Flush) 5 ml FLUSH PRN PRN PRN Reason: Flush Stop: 08/15/22 10:48 Last Admin: 07/16/22 14:17 Dose: 5 ml Cefazolin Sodium (Ancef 2000mg) 2,000 mg in 15 mls @ 3.75 mls/min IV Q8H LUCIANA Stop: 08/26/22 14:59 Last Admin: 07/18/22 05:52 Dose: 3.75 mls/min Insulin Glargine (Lantus Per Unit Charge) 0 units SC BID LUCIANA; Protocol Stop: 08/14/22 20:59 Last Admin: 07/17/22 20:49 Dose: 5 units Magnesium Hydroxide (Magnesium Hydroxide Susp 30 Ml Udc) 30 ml PO Q12H PRN PRN Reason: Constipation Stop: 08/10/22 17:18 Melatonin (Melatonin 3 Mg Tab) 3 mg PO HSZ LUCIANA Stop: 08/16/22 21:59 Last Admin: 07/17/22 22:37 Dose: 3 mg Metoprolol Tartrate (Metoprolol Tartrate 25 Mg Tab) 12.5 mg PO BID [facility] Stop: 08/16/22 03:29 Last Admin: 07/18/22 08:18 Dose: 12.5 mg Miscellaneous (Carbohydrates For Hypoglycemia ) 15 - 30 gm PO UD PRN PRN Reason: Hypoglycemia Protocol Stop: 08/10/22 17:18 Ondansetron HCl (Ondansetron Inj 2 Mg/Ml 2 Ml Vial) 4 mg IV Q6H PRN PRN Reason: Nausea Stop: 08/10/22 17:18 Oxycodone HCl (Oxycodone Hcl Ir 5 Mg Tab (Immediate Release)) 5 mg PO Q4H PRN PRN Reason: Pain Stop: 07/27/22 20:37 Last Admin: 04/25/23 08:19 Dose: 5 mg Polyethylene Glycol (Polyethylene (Miralax) 17 Gm Pack) 17 gm PO DAILY PRN PRN Reason: Constipation Stop: 08/10/22 17:18 Rizatriptan Benzoate (Rizatriptan Benzoate 10 Mg Tab) 10 mg PO TID PRN PRN Reason: migraine headache Stop: 08/10/22 18:14 Last Admin: 07/17/22 18:12 Dose: 10 mg Rosuvastatin Calcium (Rosuvastatin Calcium 20 Mg Tab) 40 mg PO LUCIANA Stop: 08/10/22 20:59 Last Admin: 07/17/22 19:48 Dose: 40 mg Sodium Chloride (Sodium Chloride 0.65% Na Soln 45 Ml ([place])) 2 sprays NA BID PRN PRN Reason: Nasal Congestion Stop: 08/10/22 20:45 Last Admin: 07/11/22 22:08 Dose: 2 sprays Zolpidem Tartrate (Zolpidem Tartrate 5 Mg Tab) 5 mg PO [facility] Stop: 08/16/22 20:59 Last Admin: 07/17/22 22:37 Dose: 5 mg
[2022-07-18] MEDS: RIZATRIPTAN BENZOATE 10 MG TAB PO PRN ×2 (09:20→18:00)
[2022-07-18] MEDS: ROSUVASTATIN CALCIUM 20 MG TAB PO SCH (19:30)
--- NOTE | 2022-07-18 21:14 | Orthopedic Progress Note ---
Date of Service July 18, 2022 Assessment & Plan (1) Osteomyelitis: Plan: Patient seen, evaluated, and treated. Dressing changed with out incident. Patient weight bearing to heel in surgical shoe. Patient ok for discharge per podiatry. We did discuss daily dressing changes needed upon discharge. Patient will have home health 3x per week. He relates he is capable of performing remaining dressing changes. Dressing changes to include 4x4, kerlix, yolette. (2) Cellulitis: (3) Insulin dependent type 2 diabetes mellitus: Admission and Anticipated Discharge Date Admission Date: July 11, 2022 Subjective Patient seen at bedside with no complaints. Patient status post Day#2 delayed primary closure. Review of Systems Review of Systems: All systems reviewed & are unremarkable except as noted in Subjective Physical Exam Constitutional: comfortable Neck: trachea midline Respiratory: normal respiratory effort Cardiovascular: Rate/Rhythm: regular rate and regular rhythm Skin: Sutures intact. No signs of infection Neurologic: Absent epicritic sensation. Psychiatric: Orientation: alert and oriented x 3 Results & Data Vital Signs (Past 12 Hours) Vital Signs Temp Pulse Resp BP Pulse Ox O2 Del Method 07/18/22 19:58 36.4 C L 87 20 127/78 97 Room Air 07/18/22 15:44 36.3 C L 91 H 20 123/87 98 Room Air 07/18/22 11:23 36.5 C 96 H 18 118/81 97 Room Air
[2022-07-18] MEDS: MELATONIN 3 MG TAB PO SCH (22:03)
[2022-07-18] MEDS: ZOLPIDEM TARTRATE 5 MG TAB PO SCH (22:04)
[2022-07-19] MEDS: ACETAMINOPHEN 500 MG TAB PO SCH ×3 (02:05→17:35)
[2022-07-19] MEDS ORDERED: MELATONIN 3 MG TAB PO STA (03:17)
[2022-07-19] MEDS ORDERED: OLANZapine 10 MG/2.1 ML SDV IM PRN (03:19)
[2022-07-19] MEDS: ceFAZolin 2000MG 2,000 MG/15 ML SYR IV SCH ×3 (06:00→22:02)
[2022-07-19 08:24] LABS: Hematocrit (blood only) 43.8 % (42.0-52.0); Hemoglobin 15.2 g/dl (14.0-18.0); Mean Corpuscular Hemoglobin 31.2 pg (25.0-34.0); Mean Corpuscular Hgb Conc 34.7 g/dL (32.0-36.0); Mean Corpuscular Volume 89.9 fL (80.0-100.0); Platelet Count 297 K/uL (130-400); RDW Coefficient of Variation 12.6 % (11.5-14.5); Red Blood Count 4.87 M/uL (4.70-6.10)
[2022-07-19] MEDS: oxyCODONE HCL IR 5 MG TAB (IMMEDIATE RELEASE) PO PRN ×2 (08:34→15:10)
[2022-07-19] MEDS: LANTUS PER UNIT CHARGE SC SCH ×2 (08:35→22:01)
[2022-07-19] MEDS: METOPROLOL TARTRATE 25 MG TAB PO SCH ×2 (08:36→21:46)
[2022-07-19] MEDS: ENOXAPARIN INJ 40 MG/0.4 ML SYR SQ SCH (08:37)
[2022-07-19 08:46] LABS: BUN Creatinine Ratio 31.3 (10-20); C Reactive Protein 0.52 mg/dl (0-0.5); Calcium 9.6 mg/dl (8.6-10.3); Creatinine Clr Calc Pharmacy 165.7 ml/min; Est GFR (African American) 124.2 ml/min; Est GFR (Non-African American) 107.2 ml/min
--- NOTE | 2022-07-19 14:55 | Hospitalist Progress Note ---
Date of Service July 19, 2022 Assessment & Plan (1) Cellulitis: Plan: resolved cont Ancef (2) Osteomyelitis: (3) Post-operative state: Plan: s/p L third toe amputatioon on 07/14/22 and I&D of abscess. delayed primary closure of wound on 07/16 PICC line placed 07/16 Per ID cont Ancef 2grams TID 6 weeks and followup with ID in 4 weeks. Previous hospitalist provided prescription for case management for arrangement of antibiotics. Home health pending. (4) Small cell lung cancer: Plan: with brain metastasis diagnosed in 2018 s/p chemotherapy and radiation treatment Follows with Dr. Gale, recommend continued follow up (5) Insulin dependent type 2 diabetes mellitus: Plan: chronic, complications. At goal. A1C 06/28/22: 7.0 Hold home ozempic cont basal bolus insulin glycemic pharmacy consulted. (6) Chronic pain: Plan: h/o methadone use in the past reports currently on narcotics as a transition through surgery PCP plans for medical marijuana and is setting that up On outpatient pain contract Reports pain uncontrolled Reports he takes hydrocodone 4-5 times daily, however, that is not reflected in PDMP Decrease oxycodone to Q8 as needed. Schedule Tylenol Schedule Ambien and melatonin for qHS at current dosage without increase to keep in line with outpatient care. Consider additional medication for sleep as needed Avoid narcotics and sleep aids together. (7) Chronic insomnia: Plan: Plans as above. Lovenox Full Code Dispo-stable for discharge to home once home health is set up. Please note the above document was generated using voice recognition software. It may contain grammatical, syntax or spelling errors. Any formal questions or concerns about the content, text or information contained within the body of this dictation should be directly addressed to the provider for clarification Admission and Anticipated Discharge Date Admission Date: July 11, 2022 Subjective Patient seen and examined at bedside. He is comfortably sitting; not in any distress. He is afebrile in last 24 hours. Review of Systems Review of Systems: All systems reviewed & are unremarkable except as noted in Subjective Physical Exam Physical Exam: CONSTITUTIONAL: WNWD, vitals as above, generally well-appearing, NAD EYES: normal conjunctivae, no scleral icterus, ENT: external ear and nose normal, MMM NECK: trachea midline RESPIRATORY: clear to auscultation bilaterally, no crackles, rales or wheezes, normal respiratory effort CARDIOVASCULAR: regular rate and rhythm, S1 and 2 heard without murmurs, gallops or rubs, no JVD, no peripheral edema CHEST: inspection of chest was normal GASTROINTESTINAL: soft, nontender, ND, no guarding MUSCULOSKELETAL: strength 5/5 throughout, head is normocephalic and atraumatic, moves around the bed independently SKIN: warm and dry, surgical wounds on foot are wrapped with gauze and JOSEPH wrap and this was not opened. NEUROLOGIC: CN 2-12 grossly intact, no sensory deficit, normal cognition, normal speech, no tremor PSYCHIATRIC: alert cooperative and oriented to person, place and time. Euthymic mood, makes good eye contact, language grossly intact, recent and remote memory grossly intact. Results & Data Results & Data Vital Signs (Past 12 Hours) Vital Signs Temp Pulse Pulse Resp BP Pulse Ox O2 Del Method 07/19/22 12:00 36.5 C 94 H 16 130/80 97 Room Air 07/19/22 08:00 93 H 07/19/22 07:30 36.4 C L 93 H 20 127/79 96 Room Air 07/19/22 04: 36.4 C L 83 20 120/76 96 Room Air Laboratory Results Laboratory Results WBC 9.00 K/ul (4.8-10.8) 07/19/22 07:48 RBC 4.87 M/uL (4.70-6.10) 07/19/22 07:48 Hgb 15.2 g/dl (14.0-18.0) 07/19/22 07:48 Hct 43.8 % (42.0-52.0) 07/19/22 07:48 MCV 89.9 fL (80.0-100.0) 07/19/22 07:48 MCH 31.2 pg (25.0-34.0) 07/19/22 07:48 MCHC 34.7 g/dL (32.0-36.0) 07/19/22 07:48 RDW Std Deviation 41.0 fL (36.4-46.3) 07/19/22 07:48 RDW Coeff of Alex 12.6 % (11.5-14.5) 07/19/22 07:48 Plt Count 297 K/uL (130-400) 07/19/22 07:48 MPV 11.0 fL (9.4-12.4) 07/19/22 07:48 Immature Gran % (Auto) 0.2 % 07/17/22 03:23 Neut % (Auto) 71.9 % 07/17/22 03:23 Lymph % (Auto) 17.0 % 07/17/22 03:23 [place] % (Auto) 7.9 % 07/17/22 03:23 Eos % (Auto) 2.3 % 07/17/22 03:23 Baso % (Auto) 0.7 % 07/17/22 03:23 Neut # (Auto) 6.75 K/uL (1.40-6.50) H 07/17/22 03:23 Lymph # (Auto) 1.60 K/uL (1.2-3.4) 07/17/22 03:23 [place] # (Auto) 0.74 K/uL (0.11-0.59) H 07/17/22 03:23 Eos # (Auto) 0.22 K/uL (0-0.50) 07/17/22 03:23 Baso # (Auto) 0.07 K/uL (0-0.2) 07/17/22 03:23 Immature Gran # (Auto) 0.02 K/uL (0.01-0.20) 07/17/22 03:23 ESR 80 mm/hr (0-20) H 07/19/22 07:48 Sodium 139 mmol/L (136-145) 07/19/22 07:48 Potassium 4.0 mmol/L (3.5-5.1) 07/19/22 07:48 Chloride 104 mmol/L (98-107) 07/19/22 07:48 Carbon Dioxide 29 mmol/L (21-32) 07/19/22 07:48 Anion Gap 6 (3-11) 07/19/22 07:48 BUN 20 mg/dl (6-23) 07/19/22 07:48 Creatinine 0.64 mg/dl (0.6-1.4) 07/19/22 07:48 Est Cr Clr Drug Dosing 165.7 ml/min 07/19/22 07:48 Est GFR ( Amer) 124.2 ml/min 07/19/22 07:48 Est GFR (Non-Af Amer) 107.2 ml/min 07/19/22 07:48 BUN/Creatinine Ratio 31.3 (10-20) H 07/19/22 07:48 Glucose 133 mg/dl (70-99(Fasting)) H 07/19/22 07:48 POC Glucose 150 mg/dl (70-99) H 07/19/22 11:37 Estimat Average Glucose 151 mg/dl 07/12/22 07:07 Hemoglobin A1c 6.9 % (4.5-5.6) H 07/12/22 07:07 Calcium 9.6 mg/dl (8.6-10.3) 07/19/22 07:48 Phosphorus 2.9 mg/dl (2.5-4.9) 07/13/22 05:50 Magnesium 2.0 mg/dl (1.7-2.4) 07/17/22 03:23 Total Bilirubin 0.3 mg/dl (0.2-1.0) 07/12/22 07:07 AST 28 U/L (13-39) 07/12/22 07:07 ALT 12 U/L (7-52) 07/12/22 07:07 Alkaline Phosphatase 59 U/L (34-104) 07/12/22 07:07 Troponin I High Sens 22.4 pg/ml (0-20) H 07/16/22 22:58 C-Reactive Protein 0.52 mg/dl (0-0.5) H 07/19/22 07:48 Total Protein 6.7 gm/dl (6.0-8.3) 07/12/22 07:07 Albumin 3.2 gm/dl (3.4-5.0) L 07/12/22 07:07 Globulin 3.5 gm/dl (2.5-4.0) 07/12/22 07:07 Albumin/Globulin Ratio 0.9 (0.9-2) 07/12/22 07:07 Triglycerides 184 mg/dl (0-150) H 07/12/22 07:07 Cholesterol 159 mg/dl (0-200) 07/12/22 07:07 LDL Cholesterol, Calc 99 mg/dl 07/12/22 07:07 VLDL Cholesterol, Calc 37 mg/dl (0-30) H 07/12/22 07:07 HDL Cholesterol 23 mg/dl 07/12/22 07:07 Cholesterol/HDL Ratio 6.9 (0-5) H 07/12/22 07:07 Urine Color Dark Yellow 07/11/22 20:44 Urine Appearance Cloudy (Clear) A 07/11/22 20:44 Urine pH 8.0 (4.5-7.5) H 07/11/22 20:44 Ur Specific [place] 1.020 (1.000-1.030) 07/11/22 20:44 Urine Protein 1+ (Negative) H 07/11/22 20:44 Urine Glucose (UA) Negative (Negative) 07/11/22 20:44 Urine Ketones Negative (Negative) 07/11/22 20:44 Urine Blood Negative (Negative) 07/11/22 20:44 Urine Nitrite Negative (Negative) 07/11/22 20:44 Urine Bilirubin Negative (Negative) 07/11/22 20:44 Urine Urobilinogen Negative (Negative) 07/11/22 20:44 Ur Leukocyte Esterase Negative (Negative) 07/11/22 20:44 Urine WBC (Auto) 1-5 /hpf (0-5) 07/11/22 20:44 Urine RBC (Auto) 0-4 /hpf (0-4) 07/11/22 20:44 U Hyaline Cast (Auto) 0 /lpf (0-5) 07/11/22 20:44 U Epithel Cells (Auto) 0-5 /lpf (0-5) 07/11/22 20:44 Urine Bacteria (Auto) Negative (Negative) 07/11/22 20:44 Random Vancomycin 16.0 mcg/ml (10-20) 07/15/22 05:30 SARS-CoV-2, RNA, NAAT NEGATIVE (NEGATIVE) 07/11/22 Unknown Impressions Foot X-Ray 07/11/22 14:50 XR foot LT min 3V routine CLINICAL HISTORY: Chronic foot wound. COMPARISON: Left foot radiographs and MRI of the left foot November 16, 2020. FINDINGS: Tarsometatarsal joints are intact. Note is made of interval amputation of the first digit at the level of the distal shaft of the first metatarsal. There is amputation of the left second toe. Several metallic foreign bodies are again noted. These were present on prior exam. There is third toe soft tissue swelling. Erosion of the majority of the left third distal phalanx is noted. This is new since prior CT. There is also mild erosion of the medial aspect of the left second metatarsal head. There are no acute fractures. IMPRESSION: 1. Interval left first and second digit amputations, as described above. Erosion of the left second metatarsal head. This suggests age indeterminate osteomyelitis. 2. Erosion of the majority of the left third distal phalanx with soft tissue swelling. This is suggestive of acute osteomyelitis. 3. No acute fracture within the left foot. 4. Redemonstration of multiple metallic foreign bodies within the plantar aspect of the left foot. ACT 112: Negative or not required by law. Electronically signed by: Thomas Hahn M.D. 07/11/2022 5:[address] 07/11/22 18:12 Exam(s): CT LEFT FOOT With Contrast EXAM: CT Left Lower Extremity With Intravenous Contrast, Foot CLINICAL HISTORY: Reason for exam: r/o osteomyelitis. TECHNIQUE: Axial computed tomography images of the left foot with intravenous contrast. CTDI is 9.53 mGy and DLP is 202.57 mGy-cm. Automated exposure control was utilized for the study. A dose lowering technique was utilized adhering to the principles of ALARA. CONTRAST: Contrast must be dictated COMPARISON: No relevant prior studies available. FINDINGS: Status post amputation of the first ray at the first metatarsal mid diaphysis and second ray at the second digit MTP. There is an ulcer plantar to the third metatarsal head. No definite CT evidence of osteomyelitis however, MRI should be considered for further evaluation. There was erosion of the third digit distal phalanx, concerning for osteomyelitis. Diffuse soft tissue swelling and skin thickening, consistent with known soft tissue infection. No drainable fluid collection or abscess at this time. IMPRESSION: Status post amputation of the first ray at the first metatarsal mid diaphysis and second ray at the second digit MTP. Ulcer plantar to the third metatarsal head. No definite CT evidence of osteomyelitis however, MRI should be considered for further evaluation. Erosion of the third digit distal phalanx, concerning for osteomyelitis. Electronically signed by: Shankar Kang MD 07/11/22 20:53 PM Foot MRI 07/12/22 07:45 MR foot LT wo/w con HISTORY: Redness and swelling within the left foot with drainage third toe. Rule out Osteomyelitis. TECHNIQUE: Multiplanar multisequence MRI of the left forefoot was performed both before and after the intravenous administration of 10 cc of Gadavist contrast. COMPARISON STUDY: Left foot CT 07/11/2022. FINDINGS: Areas of susceptibility artifact within the soft tissues of the plantar surface of the foot at the level of the first and second metatarsal heads. This likely corresponds to the metallic foreign body seen on the prior radiograph. Prior amputation of the first and second toes. There are peripheral enhancing fluid collection surrounding the majority of the third toe most pronounced along the plantar surface which extends to the level of the third MTP joint and abuts the heads of the second through fourth metatarsals. This measures approximately 5.1 x 4.9 cm. This likely represents an abscess. Truncated appearance of the distal phalanx of the third toe which could be due to prior amputation or prior osteomyelitis. Signal intensity of the truncated distal phalanx of the third toe is not well assessed due to its small size. No acute fracture or dislocation. Soft tissue edema seen throughout the majority of the forefoot with associated enhancement. This suggests a cellulitis. Small focal skin ulceration seen along the plantar surface of the third MTP joint. There is a small effusion at the third MTP joint. Mild nonspecific edema at the head of the third metatarsal. No abnormal enhancement or abnormal T1 signal to suggest an osteomyelitis. Small focus of susceptibility artifact seen within the distal fourth toe. This also represents a small metallic foreign body. IMPRESSION: 1. Approximately 5.1 x 4.9 cm loculated soft tissue fluid collection surrounding the majority of the third toe extending along the plantar surface of the second through fourth MTP joints. This likely represents an abscess. There is a small focal skin ulceration along the plantar surface of the third MTP joint. 2. Mild marrow edema within the head of the third metatarsal without abnormal T1 signal or destructive change to confirm the presence osteomyelitis. This may represent a mild osteitis. 3. Small joint effusion at the third MTP joint. 4. Prior first and second toe amputations. Fibroid scattered foci susceptibility artifact consistent with the metallic foreign body is better appreciated on the prior radiograph. 5. Diffuse soft tissue edema and enhancement within the forefoot suggestive of a cellulitis. 6. Truncated appearance of the distal phalanx of the third toe which could be due to prior amputation or prior osteomyelitis. Signal intensity of the truncated distal phalanx of the third toe is not well assessed due to its small size. ACT 112: Negative or not required by law. Electronically signed by: Jace Ceballos M.D. 07/12/2022 10:31 AM Toe X-Ray 07/13/22 00:00 FL toe LT 2V CLINICAL HISTORY: LT TOE AMPstatus post amputation of the left third toe COMPARISON STUDY: Left foot radiographs 07/11/2022 FLUOROSCOPY TIME: 29 seconds FLUOROSCOPY IMAGES: 1 EXPOSURE DOSE: 0.53 mGy FINDINGS: Radiopaque foreign body again noted adjacent to the first metatarsal stump. Prior amputation of the second toe at the level of the metatarsophalangeal joint. Status post partial amputation of the third toe at the level of the third metatarsal neck. Expected postoperative soft tissue swelling with deep tissue air. IMPRESSION: Fluoroscopic assistance as above. ACT 112: Negative or not required by law. Electronically signed by: Herb Hyde M.D. 07/13/2022 6:31 PM
[2022-07-19] MEDS: FLUTICASONE PROPIONATE NA SPR 16 GM BTL SCH (15:09)
[2022-07-19] MEDS: RIZATRIPTAN BENZOATE 10 MG TAB PO PRN ×2 (17:38→22:54)
[2022-07-19] MEDS: ROSUVASTATIN CALCIUM 20 MG TAB PO SCH (21:47)
[2022-07-19] MEDS: MELATONIN 3 MG TAB PO SCH (22:00)
[2022-07-19] MEDS: ZOLPIDEM TARTRATE 5 MG TAB PO SCH (22:01)
[2022-07-20] MEDS: ACETAMINOPHEN 500 MG TAB PO SCH ×3 (00:55→16:04)
[2022-07-20] MEDS: oxyCODONE HCL IR 5 MG TAB (IMMEDIATE RELEASE) PO PRN ×2 (00:56→09:24)
[2022-07-20 06:01] LABS: Basophils # (auto) 0.07 K/uL (0-0.2); Eosinophils # (auto) 0.18 K/uL (0-0.50); Eosinophils % (auto) 2.5 %; Hematocrit (blood only) 40.5 % (42.0-52.0); Hemoglobin 13.9 g/dl (14.0-18.0); Immature Granulocytes # (auto) 0.03 K/uL (0.01-0.20); Immature Granulocytes % (auto) 0.4 %; Lymphocytes # (auto) 1.34 K/uL (1.2-3.4); Lymphocytes % (auto) 18.4 %; Mean Corpuscular Hemoglobin 31.5 pg (25.0-34.0); Mean Corpuscular Hgb Conc 34.3 g/dL (32.0-36.0); Mean Corpuscular Volume 91.8 fL (80.0-100.0); Mean Platelet Volume 10.8 fL (9.4-12.4); Monocytes % (auto) 9.6 %; Neutrophils # (auto) 4.98 K/uL (1.40-6.50); Neutrophils % (auto) 68.1 %; Platelet Count 259 K/uL (130-400); RDW Coefficient of Variation 12.5 % (11.5-14.5); RDW Standard Deviation 42.4 fL (36.4-46.3); Red Blood Count 4.41 M/uL (4.70-6.10)
[2022-07-20 06:14] LABS: BUN Creatinine Ratio 32.3 (10-20); Calcium 9.5 mg/dl (8.6-10.3); Creatinine Clr Calc Pharmacy 171.1 ml/min; Est GFR (African American) 125.8 ml/min; Est GFR (Non-African American) 108.6 ml/min; Potassium 4.3 mmol/L (3.5-5.1)
[2022-07-20] MEDS: ceFAZolin 2000MG 2,000 MG/15 ML SYR IV SCH ×3 (06:20→22:39)
[2022-07-20] MEDS: METOPROLOL TARTRATE 25 MG TAB PO SCH ×2 (07:58→20:35)
[2022-07-20] MEDS: ENOXAPARIN INJ 40 MG/0.4 ML SYR SQ SCH (08:01)
[2022-07-20] MEDS: FLUTICASONE PROPIONATE NA SPR 16 GM BTL SCH (08:07)
[2022-07-20] MEDS: LANTUS PER UNIT CHARGE SC SCH ×2 (09:29→20:36)
[2022-07-20] MEDS ORDERED: oxyCODONE HCL IR 5 MG TAB (IMMEDIATE RELEASE) PO PRN (12:10)
--- NOTE | 2022-07-20 12:10 | Hospitalist Progress Note ---
Date of Service July 20, 2022 Assessment & Plan (1) Cellulitis: Plan: resolved cont Ancef (2) Osteomyelitis: (3) Post-operative state: Plan: s/p L third toe amputatioon on 07/14/22 and I&D of abscess. delayed primary closure of wound on 07/16 Wound culture is positive for MSSA. PICC line placed 07/16 Per ID cont Ancef 2grams TID 6 weeks( Till August 27 2022) and followup with ID in 4 weeks. He will need CBC and BMP weekly for the duration. Previous hospitalist provided prescription for case management for arrangement of antibiotics. Initially, patient wanted to go home with home health. However, on further discussion with the patient; he is agreeable to go to SNF for completion of the antibiotic. Case management on board. (4) Small cell lung cancer: Plan: with brain metastasis diagnosed in 2017 s/p chemotherapy and radiation treatment Received chemotherapy. Follows up with Dr. Gale. (5) Insulin dependent type 2 diabetes mellitus: Plan: chronic, complications. At goal. A1C 06/28/22: 7.0 Hold home ozempic cont basal bolus insulin glycemic pharmacy consulted. (6) Chronic pain: Plan: h/o methadone use in the past reports currently on narcotics as a transition through surgery PCP plans for medical marijuana and is setting that up On outpatient pain contract Reports pain uncontrolled Reports he takes hydrocodone 4-5 times daily, however, that is not reflected in PDMP Decrease oxycodone. Schedule Tylenol Schedule Ambien and melatonin for qHS at current dosage without increase to keep in line with outpatient care. Consider additional medication for sleep as needed Avoid narcotics and sleep aids together. (7) Chronic insomnia: Plan: Plans as above. Lovenox Full Code Dispo-stable for discharge to rehab Please note the above document was generated using voice recognition software. It may contain grammatical, syntax or spelling errors. Any formal questions or concerns about the content, text or information contained within the body of this dictation should be directly addressed to the provider for clarification Admission and Anticipated Discharge Date Admission Date: July 11, 2022 Subjective Patient seen and examined at bedside. He is comfortable; not in distress. Pain is well controlled on current regimen. Afebrile in last 48 hours. Review of Systems Review of Systems: All systems reviewed & are unremarkable except as noted in Subjective Physical Exam Physical Exam: CONSTITUTIONAL: WNWD, vitals as above, generally well-appearing, NAD EYES: normal conjunctivae, no scleral icterus, ENT: external ear and nose normal, MMM NECK: trachea midline RESPIRATORY: clear to auscultation bilaterally, no crackles, rales or wheezes, normal respiratory effort CARDIOVASCULAR: regular rate and rhythm, S1 and 2 heard without murmurs, gallops or rubs, no JVD, no peripheral edema CHEST: inspection of chest was normal GASTROINTESTINAL: soft, nontender, ND, no guarding MUSCULOSKELETAL: strength 5/5 throughout, head is normocephalic and atraumatic, moves around the bed independently SKIN: warm and dry, surgical wounds on foot are wrapped with gauze and JOSEPH wrap and this was not opened. NEUROLOGIC: CN 2-12 grossly intact, no sensory deficit, normal cognition, nor mal speech, no tremor PSYCHIATRIC: alert cooperative and oriented to person, place and time. Euthymic mood, makes good eye contact, language grossly intact, recent and remote memory grossly intact. Results & Data Results & Data Vital Signs (Past 12 Hours) Vital Signs Temp Pulse Pulse Resp BP BP Pulse Ox 07/20/22 11:33 36.2 C L 84 18 131/81 99 07/20/22 10:13 87 07/20/22 08:18 36.5 C 89 18 121/96 98 07/20/22 03:20 36.6 C 83 18 120/74 99 O2 Del Method 07/20/22 11:33 Room Air 07/20/22 10:13 07/20/22 08:18 Room Air 07/20/22 03:20 Room Air Laboratory Results Laboratory Results WBC 7.30 K/ul (4.8-10.8) 07/20/22 05:39 RBC 4.41 M/uL (4.70-6.10) L 07/20/22 05:39 Hgb 13.9 g/dl (14.0-18.0) L 07/20/22 05:39 Hct 40.5 % (42.0-52.0) L 07/20/22 05:39 MCV 91.8 fL (80.0-100.0) 07/20/22 05:39 MCH 31.5 pg (25.0-34.0) 07/20/22 05:39 MCHC 34.3 g/dL (32.0-36.0) 07/20/22 05:39 RDW Std Deviation 42.4 fL (36.4-46.3) 07/20/22 05:39 RDW Coeff of Alex 12.5 % (11.5-14.5) 07/20/22 05:39 Plt Count 259 K/uL (130-400) 07/20/22 05:39 MPV 10.8 fL (9.4-12.4) 07/20/22 05:39 Immature Gran % (Auto) 0.4 % 07/20/22 05:39 Neut % (Auto) 68.1 % 07/20/22 05:39 Lymph % (Auto) 18.4 % 07/20/22 05:39 [place] % (Auto) 9.6 % 07/20/22 05:39 Eos % (Auto) 2.5 % 07/20/22 05:39 Baso % (Auto) 1.0 % 07/20/22 05:39 Neut # (Auto) 4.98 K/uL (1.40-6.50) 07/20/22 05:39 Lymph # (Auto) 1.34 K/uL (1.2-3.4) 07/20/22 05:39 [place] # (Auto) 0.70 K/uL (0.11-0.59) H 07/20/22 05:39 Eos # (Auto) 0.18 K/uL (0-0.50) 07/20/22 05:39 Baso # (Auto) 0.07 K/uL (0-0.2) 07/20/22 05:39 Immature Gran # (Auto) 0.03 K/uL (0.01-0.20) 07/20/22 05:39 ESR 80 mm/hr (0-20) H 07/19/22 07:48 Sodium 138 mmol/L (136-145) 07/20/22 05:39 Potassium 4.3 mmol/L (3.5-5.1) 07/20/22 05:39 Chloride 105 mmol/L (98-107) 07/20/22 05:39 Carbon Dioxide 29 mmol/L (21-32) 07/20/22 05:39 Anion Gap 4 (3-11) 07/20/22 05:39 BUN 20 mg/dl (6-23) 07/20/22 05:39 Creatinine 0.62 mg/dl (0.6-1.4) 07/20/22 05:39 Est Cr Clr Drug Dosing 171.1 ml/min 07/20/22 05:39 Est GFR ( Amer) 125.8 ml/min 07/20/22 05:39 Est GFR (Non-Af Amer) 108.6 ml/min 07/20/22 05:39 BUN/Creatinine Ratio 32.3 (10-20) H 07/20/22 05:39 Glucose 166 mg/dl (70-99(Fasting)) H 07/20/22 05:39 POC Glucose 135 mg/dl (70-99) H 07/20/22 11:03 Estimat Average Glucose 151 mg/dl 07/12/22 07:07 Hemoglobin A1c 6.9 % (4.5-5.6) H 07/12/22 07:07 Calcium 9.5 mg/dl (8.6-10.3) 07/20/22 05:39 Phosphorus 2.9 mg/dl (2.5-4.9) 07/13/22 05:50 Magnesium 2.0 mg/dl (1.7-2.4) 07/17/22 03:23 Total Bilirubin 0.3 mg/dl (0.2-1.0) 07/12/22 07:07 AST 28 U/L (13-39) 07/12/22 07:07 ALT 12 U/L (7-52) 07/12/22 07:07 Alkaline Phosphatase 59 U/L (34-104) 07/12/22 07:07 Troponin I High Sens 22.4 pg/ml (0-20) H 07/16/22 22:58 C-Reactive Protein 0.52 mg/dl (0-0.5) H 07/19/22 07:48 Total Protein 6.7 gm/dl (6.0-8.3) 07/12/22 07:07 Albumin 3.2 gm/dl (3.4-5.0) L 07/12/22 07:07 Globulin 3.5 gm/dl (2.5-4.0) 07/12/22 07:07 Albumin/Globulin Ratio 0.9 (0.9-2) 07/12/22 07:07 Triglycerides 184 mg/dl (0-150) H 07/12/22 07:07 Cholesterol 159 mg/dl (0-200) 07/12/22 07:07 LDL Cholesterol, Calc 99 mg/dl 07/12/22 07:07 VLDL Cholesterol, Calc 37 mg/dl (0-30) H 07/12/22 07:07 HDL Cholesterol 23 mg/dl 07/12/22 07:07 Cholesterol/HDL Ratio 6.9 (0-5) H 07/12/22 07:07 Urine Color Dark Yellow 07/11/22 20:44 Urine Appearance Cloudy (Clear) A 07/11/22 20:44 Urine pH 8.0 (4.5-7.5) H 07/11/22 20:44 Ur Specific [place] 1.020 (1.000-1.030) 07/11/22 20:44 Urine Protein 1+ (Negative) H 07/11/22 20:44 Urine Glucose (UA) Negative (Negative) 07/11/22 20:44 Urine Ketones Negative (Negative) 07/11/22 20:44 Urine Blood Negative (Negative) 07/11/22 20:44 Urine Nitrite Negative (Negative) 07/11/22 20:44 Urine Bilirubin Negative (Negative) 07/11/22 20:44 Urine Urobilinogen Negative (Negative) 07/11/22 20:44 Ur Leukocyte Esterase Negative (Negative) 07/11/22 20:44 Urine WBC (Auto) 1-5 /hpf (0-5) 07/11/22 20:44 Urine RBC (Auto) 0-4 /hpf (0-4) 07/11/22 20:44 U Hyaline Cast (Auto) 0 /lpf (0-5) 07/11/22 20:44 U Epithel Cells (Auto) 0-5 /lpf (0-5) 07/11/22 20:44 Urine Bacteria (Auto) Negative (Negative) 07/11/22 20:44 Random Vancomycin 16.0 mcg/ml (10-20) 07/15/22 05:30 SARS-CoV-2, RNA, NAAT NEGATIVE (NEGATIVE) 07/11/22 Unknown Impressions Foot X-Ray 07/11/22 14:50 XR foot LT min 3V routine CLINICAL HISTORY: Chronic foot wound. COMPARISON: Left foot radiographs and MRI of the left foot November 16, 2020. FINDINGS: Tarsometatarsal joints are intact. Note is made of interval amputation of the first digit at the level of the distal shaft of the first metatarsal. There is amputation of the left second toe. Several metallic foreign bodies are again noted. These were present on prior exam. There is third toe soft tissue swelling. Erosion of the majority of the left third distal phalanx is noted. This is new since prior CT. There is also mild erosion of the medial aspect of the left second metatarsal head. There are no acute fractures. IMPRESSION: 1. Interval left first and second digit amputations, as described above. Erosion of the left second metatarsal head. This suggests age indeterminate osteomyelitis. 2. Erosion of the majority of the left third distal phalanx with soft tissue swelling. This is suggestive of acute osteomyelitis. 3. No acute fracture within the left foot. 4. Redemonstration of multiple metallic foreign bodies within the plantar aspect of the left foot. ACT 112: Negative or not required by law. Electronically signed by: Thomas Hahn M.D. 07/11/2022 5:[address] 07/11/22 18:12 Exam(s): CT LEFT FOOT With Contrast EXAM: CT Left Lower Extremity With Intravenous Contrast, Foot CLINICAL HISTORY: Reason for exam: r/o osteomyelitis. TECHNIQUE: Axial computed tomography images of the left foot with intravenous contrast. CTDI is 9.53 mGy and DLP is 202.57 mGy-cm. Automated exposure control was utilized for the study. A dose lowering technique was utilized adhering to the principles of ALARA. CONTRAST: Contrast must be dictated COMPARISON: No relevant prior studies available. FINDINGS: Status post amputation of the first ray at the first metatarsal mid diaphysis and second ray at the second digit MTP. There is an ulcer plantar to the third metatarsal head. No definite CT evidence of osteomyelitis however, MRI should be considered for further evaluation. There was erosion of the third digit distal phalanx, concerning for osteomyelitis. Diffuse soft tissue swelling and skin thickening, consistent with known soft tissue infection. No drainable fluid collection or abscess at this time. IMPRESSION: Status post amputation of the first ray at the first metatarsal mid diaphysis and second ray at the second digit MTP. Ulcer plantar to the third metatarsal head. No definite CT evidence of osteomyelitis however, MRI should be considered for further evaluation. Erosion of the third digit distal phalanx, concerning for osteomyelitis. Electronically signed by: Shankar Kang MD 07/11/22 20:53 PM Foot MRI 07/12/22 07:45 MR foot LT wo/w con HISTORY: Redness and swelling within the left foot with drainage third toe. R ule out Osteomyelitis. TECHNIQUE: Multiplanar multisequence MRI of the left forefoot was performed both before and after the intravenous administration of 10 cc of Gadavist contrast. COMPARISON STUDY: Left foot CT 07/11/2022. FINDINGS: Areas of susceptibility artifact within the soft tissues of the plantar surface of the foot at the level of the first and second metatarsal heads. This likely corresponds to the metallic foreign body seen on the prior radiograph. Prior amputation of the first and second toes. There are peripheral enhancing fluid collection surrounding the majority of the third toe most pronounced along the plantar surface which extends to the level of the third MTP joint and abuts the heads of the second through fourth metatarsals. This measures approximately 5.1 x 4.9 cm. This likely represents an abscess. Truncated appearance of the distal phalanx of the third toe which could be due to prior amputation or prior osteomyelitis. Signal intensity of the truncated distal phalanx of the third toe is not well assessed due to its small size. No acute fracture or dislocation. Soft tissue edema seen throughout the majority of the forefoot with associated enhancement. This suggests a cellulitis. Small focal skin ulceration seen along the plantar surface of the third MTP joint. There is a small effusion at the third MTP joint. Mild nonspecific edema at the head of the third metatarsal. No abnormal enhancement or abnormal T1 signal to suggest an osteomyelitis. Small focus of susceptibility artifact seen within the distal fourth toe. This also represents a small metallic foreign body. IMPRESSION: 1. Approximately 5.1 x 4.9 cm loculated soft tissue fluid collection surrounding the majority of the third toe extending along the plantar surface of the second through fourth MTP joints. This likely represents an abscess. There is a small focal skin ulceration along the plantar surface of the third MTP joint. 2. Mild marrow edema within the head of the third metatarsal without abnormal T1 signal or destructive change to confirm the presence osteomyelitis. This may represent a mild osteitis. 3. Small joint effusion at the third MTP joint. 4. Prior first and second toe amputations. Fibroid scattered foci susceptibility artifact consistent with the metallic foreign body is better appreciated on the prior radiograph. 5. Diffuse soft tissue edema and enhancement within the forefoot suggestive of a cellulitis. 6. Truncated appearance of the distal phalanx of the third toe which could be due to prior amputation or prior osteomyelitis. Signal intensity of the truncated distal phalanx of the third toe is not well assessed due to its small size. ACT 112: Negative or not required by law. Electronically signed by: Jace Ceballos M.D. 07/12/2022 10:31 AM Toe X-Ray 07/13/22 00:00 FL toe LT 2V CLINICAL HISTORY: LT TOE AMPstatus post amputation of the left third toe COMPARISON STUDY: Left foot radiographs 07/11/2022 FLUOROSCOPY TIME: 29 seconds FLUOROSCOPY IMAGES: 1 EXPOSURE DOSE: 0.53 mGy FINDINGS: Radiopaque foreign body again noted adjacent to the first metatarsal stump. Prior amputation of the second toe at the level of the metatarsophalangeal joint. Status post partial amputation of the third toe at the level of the third metatarsal neck. Expected postoperative soft tissue swelling with deep tissue air. IMPRESSION: Fluoroscopic assistance as above. ACT 112: Negative or not required by law. Electronically signed by: Herb Hyde M.D. 07/13/2022 6:31 PM
--- NOTE | 2022-07-20 14:18 | Orthopedic Progress Note ---
Date of Service July 19, 2022 Assessment & Plan (1) Osteomyelitis: Plan: Patient seen, evaluated, and treated. Dressing changed with out incident. Patient weight bearing to heel in surgical shoe. Patient ok for discharge per podiatry. We did discuss daily dressing changes needed upon discharge. Patient will have home health 3x per week. He relates he is capable of performing remaining dressing changes. Dressing changes to include 4x4, kerlix, yolette. (2) Cellulitis: (3) Insulin dependent type 2 diabetes mellitus: Admission and Anticipated Discharge Date Admission Date: July 11, 2022 Subjective Patient seen at bedside. Patient status post left foot surgery. He is comfortable; not in distress. Review of Systems Review of Systems: All systems reviewed & are unremarkable except as noted in Subjective Physical Exam Constitutional: comfortable Neck: trachea midline Respiratory: normal respiratory effort Cardiovascular: Rate/Rhythm: regular rate and regular rhythm Psychiatric: Orientation: alert and oriented x 3 Results & Data Vital Signs (Past 12 Hours) Vital Signs Temp Pulse Pulse Resp BP BP Pulse Ox 07/20/22 11:33 36.2 C L 84 18 131/81 99 07/20/22 10:13 87 07/20/22 08:18 36.5 C 89 18 121/96 98 07/20/22 03:20 36.6 C 83 18 120/74 99 O2 Del Method 07/20/22 11:33 Room Air 07/20/22 10:13 07/20/22 08:18 Room Air 07/20/22 03:20 Room Air
[2022-07-20] MEDS: ROSUVASTATIN CALCIUM 20 MG TAB PO SCH (20:35)
[2022-07-20] MEDS: ZOLPIDEM TARTRATE 5 MG TAB PO SCH (22:36)
[2022-07-20] MEDS: MELATONIN 3 MG TAB PO SCH (22:36)
[2022-07-21] MEDS: ACETAMINOPHEN 500 MG TAB PO SCH ×2 (00:14→08:27)
[2022-07-21] MEDS: ceFAZolin 2000MG 2,000 MG/15 ML SYR IV SCH ×2 (06:26→14:51)
[2022-07-21] MEDS ORDERED: oxyCODONE HCL IR 5 MG TAB (IMMEDIATE RELEASE) PO PRN (08:03)
[2022-07-21] MEDS: LANTUS PER UNIT CHARGE SC SCH (08:25)
[2022-07-21] MEDS: METOPROLOL TARTRATE 25 MG TAB PO SCH (08:26)
[2022-07-21] MEDS: ENOXAPARIN INJ 40 MG/0.4 ML SYR SQ SCH (08:27)
[2022-07-21] MEDS: SODIUM CHLORIDE 0.65% NA SOLN 45 ML (OCEAN) PRN ×3 (08:28→08:36)
--- NOTE | 2022-07-21 10:40 | Hospitalist Progress Note ---
Date of Service July 21, 2022 Assessment & Plan (1) Cellulitis: Plan: resolved cont Ancef (2) Osteomyelitis: (3) Post-operative state: Plan: s/p L third toe amputatioon on 07/14/22 and I&D of abscess. delayed primary closure of wound on 07/16 Wound culture is positive for MSSA. PICC line placed 07/16 Per ID cont Ancef 2grams TID 6 weeks( Till August 27 2022) and followup with ID in 4 weeks. He will need CBC and BMP weekly for the duration. Previous hospitalist provided prescription for case management for arrangement of antibiotics. Initially, patient wanted to go home with home health. However, on further discussion with the patient; he is agreeable to go to SNF for completion of the antibiotic. Case management on board. (4) Small cell lung cancer: Plan: with brain metastasis diagnosed in 2017 s/p chemotherapy and radiation treatment Received chemotherapy. Follows up with Dr. Gale. (5) Insulin dependent type 2 diabetes mellitus: Plan: chronic, complications. At goal. A1C 06/28/22: 7.0 Hold home ozempic cont basal bolus insulin glycemic pharmacy consulted. (6) Chronic pain: Plan: h/o methadone use in the past reports currently on narcotics as a transition through surgery PCP plans for medical marijuana and is setting that up On outpatient pain contract Reports pain uncontrolled Reports he takes hydrocodone 4-5 times daily, however, that is not reflected in PDMP Decrease oxycodone. Schedule Tylenol Schedule Ambien and melatonin for qHS at current dosage without increase to keep in line with outpatient care. Consider additional medication for sleep as needed Avoid narcotics and sleep aids together. (7) Chronic insomnia: Plan: Plans as above. Lovenox Full Code Dispo-stable for discharge to rehab Please note the above document was generated using voice recognition software. It may contain grammatical, syntax or spelling errors. Any formal questions or concerns about the content, text or information contained within the body of this dictation should be directly addressed to the provider for clarification Admission and Anticipated Discharge Date Admission Date: July 11, 2022 Physical Exam Physical Exam: CONSTITUTIONAL: WNWD, vitals as above, generally well-appearing, NAD EYES: normal conjunctivae, no scleral icterus, ENT: external ear and nose normal, MMM NECK: trachea midline RESPIRATORY: clear to auscultation bilaterally, no crackles, rales or wheezes, normal respiratory effort CARDIOVASCULAR: regular rate and rhythm, S1 and 2 heard without murmurs, gallops or rubs, no JVD, no peripheral edema CHEST: inspection of chest was normal GASTROINTESTINAL: soft, nontender, ND, no guarding MUSCULOSKELETAL: strength 5/5 throughout, head is normocephalic and atraumatic, moves around the bed independently SKIN: warm and dry, surgical wounds on foot are wrapped with gauze and JOSEPH wrap and this was not opened. NEUROLOGIC: CN 2-12 grossly intact, no sensory deficit, normal cognition, normal speech, no tremor PSYCHIATRIC: alert cooperative and oriented to person, place and time. Euthymic mood, makes good eye contact, language grossly intact, recent and remote memory grossly intact. Results & Data Results & Data Vital Signs (Past 12 Hours) Vital Signs Temp Pulse Pulse Resp BP Pulse Ox O2 Del Method 07/21/22 07:51 36.4 C L 85 18 113/66 96 Room Air 07/21/22 03:06 36.3 C L 85 18 118/77 95 Room Air 07/20/22 22:40 36.5 C 89 18 142/82 H 96 Room Air 07/20/22 23:43 93 H
[2022-07-21] MEDS: FLUTICASONE PROPIONATE NA SPR 16 GM BTL SCH (10:46)
--- NOTE | 2022-07-21 11:27 | Discharge Summary ---
Date of Service July 21, 2022 Admission HPI Per Admitting Provider Mr. Carcamo is a disheveled individual that presented to the [facility] ED from his PCP office with complaints of pain swelling and redness on his left leg and foot. He has purulent drainage noted on his left third toe with lymphangetic streaks on the distal 2/3 of his left foot. Left foot x-ray suggests age indeterminate osteomyelitis and erosion of the majority of the left third distal phalanx with soft tissue swelling; suggestive of acute osteomyelitis. Pt states that his pain started about two days ago. He does have a vertical 0.5 inch laceration on the mid-plantar portion of his foot that he said occurred yest erday when he stepped on a piece of glass. He denies having recent fever or chills. Pt does have palpable pedal pulses bilaterally. Pt does not appear toxic; without leukocytosis, afebrile, no tachycardia. He has a history of 1st and 2nd toe amputations. Additional PMH includes: SCLCA with brain metastasis diagnosed in 2018 s/p chemotherapy and radiation treatment (under the care of Dr. Gale, but has not had recent follow up), H/O of PE (was on Lovenox but discontinued due to ICH), depression and anxiety, IDDM2, AF, HTN, HLD, and GERD. Patient was ambulating back to his bed from the bathroom when I entered the room with a cane for an assisted device. Pt is AAOx4 and able to answer questions appropriately. Pt denies DELEON, dizziness, palpitations, visual or auditory changes, abdominal pain, N/V/D, recent falls. He reports that his appetite is good and he is drinking adequate amt of water. Pt reports that he has started smoking cigarettes again over the past few months. Reports social drinking of [employer] iced teas (one per week), no recreational drug use. Admission Exam Per Admitting Provider Neuro: AAOx4, PERRLA, no aphagia, memory changes, CNII-XII grossly intact HEENT: head normocephalic, moist mucus membranes CV: S1/S2, (-) M/G/R, (-) edema, cap refill < 3 seconds Resp: Lungs CTA in all shabazz. On RA GI: Abdomen S/NT/ND, Ax4 bowel sounds, (-) CVA tenderness Musculoskeletal: 5/5 B/L UE strength, 5/5 B/L LE strength. No gait disturbance. uses a cane to assist with ambulation Skin: (-) rashes , (+) erythema, necrosis and erythema of third toe with green and yellow purulent drainage. (+) lymphangitic streaks. (+) medial plantar laceration measuring 1 cm Psych: euthymic mood Principal Diagnosis Osteomyelitis of left third toe status post amputation, I&D of abscess with delayed primary closure Discharge Exam CONSTITUTIONAL: WNWD, vitals as above, generally well-appearing, NAD EYES: normal conjunctivae, no scleral icterus, ENT: external ear and nose normal, MMM NECK: trachea midline RESPIRATORY: clear to auscultation bilaterally, no crackles, rales or wheezes, normal respiratory effort CARDIOVASCULAR: regular rate and rhythm, S1 and 2 heard without murmurs, gallops or rubs, no JVD, no peripheral edema CHEST: inspection of chest was normal GASTROINTESTINAL: soft, nontender, ND, no guarding MUSCULOSKELETAL: strength 5/5 throughout, head is normocephalic and atraumatic, moves around the bed independently SKIN: warm and dry, surgical wounds on foot are wrapped with gauze and ASAD wrap and this was not opened. NEUROLOGIC: CN 2-12 grossly intact, no sensory deficit, normal cognition, normal speech, no tremor PSYCHIATRIC: alert cooperative and oriented to person, place and time. Euthymic mood, makes good eye contact, language grossly intact, recent and remote memory grossly intact. Discharge Data Allergies Allergy/AdvReac Type Severity Reaction Status Date / Time clindamycin Allergy Severe SHORTNESS Verified 07/11/22 16:52 OF BREATH dextromethorphan Allergy Severe HARD TO Verified 07/11/22 16:52 BREATHE? guaifenesin Allergy Severe HARD TO Verified 07/11/22 16:52 BREATHE? amoxicillin Allergy Intermediate SHORTNESS Verified 07/11/22 16:52 OF BREATH insulin aspart Allergy Unknown ALLERGIC Verified 07/11/22 16:52 TO PRESERVATIVES IN NOVOLOG - OK WITH REGULAR/NPH sitagliptin Allergy Unknown UNKNOWN RXN Verified 07/11/22 16:52 adhesive AdvReac Intermediate "rips his Verified 07/11/22 16:52 skin off" atorvastatin AdvReac Intermediate diarrhea Verified 07/11/22 16:52 duloxetine AdvReac Intermediate Abdominal Verified 07/11/22 16:52 Pain escitalopram AdvReac Intermediate GI UPSET Verified 07/11/22 16:52 gabapentin AdvReac Intermediate CONSTIPATIO Verified 07/11/22 16:52 N propoxyphene AdvReac Intermediate "DID CRAZY Verified 07/11/22 16:52 THINGS" tizanidine AdvReac Intermediate Diarrhea Verified 07/11/22 16:52 metformin AdvReac Unknown PT STATES Verified 07/11/22 16:52 "DID NOT WORK" Consultations 07/11/22 16:53 ED Decision to Admit Stat 07/11/22 17:19 Consult Infectious Diseases Routine 07/12/22 08:00 Consult Podiatry Routine Procedures Performed Operation Date: 07/16/22 07:30 Actual Procedures p Delayed primary closure of wound left foot(Left) - Efraín Wilson DPM, MS Ordered Studies 07/11/22 18:12 CT foot LT w con Routine 07/12/22 07:45 MR foot LT wo/w con Urgent 07/13/22 FL toe LT 2V Routine Hospital Course (1) Cellulitis: (2) Osteomyelitis: (3) Post-operative state: Plan Patient is a 61 y/o presented to the [facility] ED from his PCP office with complaints of pain swelling and redness on his left leg and foot. On presentation, he had purulent drainage noted on his left third toe with lymphangetic streaks on the distal 2/3 of his left foot. He underwent MRI of the foot at which showed 5.1 X4.9 cm loculated soft tissue fluid collection surrounding the majority of the third toe extending along plantar surface of second through fourth MTP joints. MRI also showed finding consistent with osteomyelitis within head of the third metatarsal. Patient underwent left third toe amputation on 07/14/22 and I&D of abscess with delayed primary closure of wound on 07/16 by podiatry. Wound culture was positive for MSSA. Infectious disease was consulted; patient was recommended to be placed on Ancef 2 g 3 times daily for 6 weeks till August 27, 2022. Patient to undergo daily dressing changes at the rehab. Patient to have CBC and BMP weekly while on treatment. Patient to follow-up with infectious disease in 4 weeks. Patient was discharged to rehab. Paper prescription for the antibiotics was faxed over to the rehab. All other medications were continued at previously. Please note the above document was generated using voice recognition software. It may contain grammatical, syntax or spelling errors. Any formal questions or concerns about the content, text or information contained within the body of this dictation should be directly addressed to the provider for clarification Total Time Total Time Spent Total Time Spent (In Minutes): 40 Total Time Includes: Examination of the Patient, Discharge Planning, Medication Reconciliation, Communication With Other Providers and Other Discharge Plan Discharge Items Patient Disposition: Transfer [facility] Reason For Visit: REDNESS/CELLULITIS Discharge Diagnosis: Osteomyelitis of left third toe Cellulitis of left leg Activity: As commented below Exercise/Sports: None Weightbearing: Left partial Weightbearing Comment: Weight bear to left heel only. Non-emergency contact: Primary Care Provider Call non-emergency contact if: you have any medication questions and your symptoms worsen Follow-up/Referrals: Efraín Zamudio MD [Primary Care Provider] - (Date & Time 07/25/2022 10:20 AM Provider Efraín Zamudio III, MD Department [facility] ) Diet: Carb Consistent or DM2 Addtl Attending Provider Instructions: You were admitted to the hospital with bone infection of left third toe. You underwent surgery by podiatry on 07/14/2022 for left third toe amputation and I&D of abscess. He also underwent delayed primary closure of the wound on 07/16/2022. Infectious disease recommends that you are placed on Ancef 2 mg 3 times daily for 6 weeks (till August 27, 2022). You will need to follow-up with infectious disease in 4 weeks. You will need CBC and BMP weekly every Sunday while on treatment. After completion of the antibiotic, removal of the PICC line should be done. Do daily dressing changes while at the rehab With 4 x 4, Kerlix, Asad. It is very important to do daily dressing changes. Please follow-up with her primary care doctor after discharge. Pending Studies at Discharge: No Stand-Alone Forms: My [facility] [email or web address] Skilled Items Patient informed of condition?: Yes DNR: No Discharge Level of Care: Skilled Communicable Disease: No Discharge Prognosis: Stable Lines: PICC Urinary Catheter: No Medications and DC Order Prescriptions: New acetaminophen [Tylenol Extra Strength] 500 mg Tablet 1,000 mg PO Q8H PRN (Reason: pain) Qty: 30 0RF fluticasone propionate 50 mcg/actuation [place],Suspension 1 spray NA DAILY Qty: 16 0RF oxycodone 5 mg Tablet 5 mg PO Q8H PRN (Reason: pain) Qty: 10 0RF Saline Mist 0.65 % Aerosol,[place] 2 spray NA BID PRN (Reason: nasal congestion) Qty: 44 0RF Continued trazodone 50 mg tablet 25 mg PO HS Qty: 30 0RF Rx Instructions: PT STATES "REALLY DON'T NEED". rizatriptan 10 mg Tablet 10 mg PO DIRECTED PRN (Reason: Migraine Headache) Qty: 30 0RF zolpidem 5 mg tablet 5 mg PO HS PRN (Reason: Sleep) Qty: 30 0RF albuterol sulfate [ProAir HFA] 90 mcg/actuation Hfa Aerosol Inhaler 2 puff INHALATION Q4H PRN (Reason: Wheezing) Qty: 6.7 0RF rosuvastatin 40 mg Tablet 40 mg PO HS Qty: 30 0RF Rx Instructions: LAST FILLED 04/03/22 FOR 90 DAYS. melatonin 5 mg Tablet 5 mg PO HS PRN (Reason: Insomnia) Qty: 30 0RF Ozempic 1 mg/dose (4 mg/3 mL) pen injector 1 mg SUBCUT WK Qty: 3 0RF Rx Instructions: SUNDAYS Discharge Orders: Discharge Order (Routine); Ordered 07/21/22 Ordered By: Chong Morris Admission Data Admit Date/Time: 07/11/22 17:19 Attending Provider: Chong Morris Admit Provider: Hermelindo Schmidt Primary Care Provider: Efraín Zamudio Other Providers: Mauricio Ramachandran ; Hermelindo Schmidt ; Alonso Cornell ; Alley Goodwin ; Jeffery Santos I. ; Harris Berg II ; Jade Swann ; Sunday Desouza ; Yogesh Ritchie ; Elsa Connor ; Efraín Wilson ; [facility] ; Alberto Negrete [facility] ; [facility]
[2022-07-21 11:35] VITALS: PULSE 86; TEMP 98.2; O2SAT 95
[2022-07-21 13:30] VITALS: BP 121/96
== END 2022-07-21 15:30 | DRG 617 ==
LOC: ED 14:34 → SUATTDRO 17:19 → EDINP 17:19 → 2N 19:50

== ENCOUNTER 2023-08-30 21:01 | Observation (INO) ==
--- NOTE | 2023-08-30 22:00 | Emergency Department Note ---
Impression & Plan CHF (congestive heart failure), Chronic back pain, Edema, Orthopnea ED Provider Note CHIEF COMPLAINT: "My whole body is bloated" HISTORY OF PRESENT ILLNESS: This 63-year-old male patient presents to the emergency department via private vehicle for evaluation of "my whole body is bloated". The patient states that he is dealing with chronic back issues. He is not currently following with a spine surgeon, but states he does have a history of multiple spine surgeries. He states that he is doing water therapy. He notes that over the past 1 to 2 days, his legs, back, abdomen have felt more swollen than usual. Patient denies any chest pain or shortness of breath. He states his back pain is not different than its baseline. He has not changed any medications recently. He states his diet has not changed. He does report history of edema in the which was associated with back issues. The patient denies any history of heart failure. He denies any abdominal pain. No dysuria, urinary frequency, urinary hesitancy, hematuria. No numbness, tingling, or weakness. He states he had lung caner in the as well but states he does not have lung cancer any longer. REVIEW OF SYSTEMS: A 10 system review of systems was performed with positives and pertinent negatives listed in the history of present illness. All other systems were reviewed and are negative. ALLERGIES: Clindamycin, dextromethorphan, guaifenesin, amoxicillin, insulin aspart, sitagliptin, adhesive, atorvastatin, duloxetine, escitalopram, gabapentin, propoxyphene, tizanidine, metformin PHYSICAL EXAM: VITALS: Vitals are noted on the nurse's note and reviewed by myself. Vital signs stable. GENERAL: This is a 63-year-old male, in no acute distress, nondiaphoretic, well- developed well-nourished. SKIN: 2+ pitting edema in the bilateral lower extremities to the mid michel. The skin was without rashes, erythema, edema, or bruising. There is no tenting of the skin. Capillary refill less than 2 seconds. HEAD: Normocephalic atraumatic. EYES: Conjunctivae without injection, sclerae without icterus. NOSE: Patent, turbinates without inflammation or discharge. No sinus tenderness. MOUTH: Mucous membranes moist. Tonsils are not enlarged. Pharynx without erythema or exudate. Uvula midline. Airway patent. Tongue does not deviate. NECK: Supple without nuchal rigidity. No lymphadenopathy. Cervical spine is nontender. No JVD. HEART: Regular rate and rhythm without murmurs gallops or rubs. LUNGS: Clear to auscultation bilaterally without wheezes, rales or rhonchi. No retractions or accessory muscle use. ABDOMEN: Positive bowel sounds x 4. Soft, nontender, without masses or organomegaly. Martinez sign negative. No guarding or rebound tenderness. MUSCULOSKELETAL: Tenderness over the lumbar spinous processes. No muscle atrophy, erythema, or edema noted. Full range of motion without joint tenderness in all extremities. No tenderness to palpation. Normal gait. Strength 5/5 throughout. NEURO: Patient was alert and oriented to person place and time. Normal sensation to light and sharp touch. No focal neurological deficits. 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 The monitor showed a normal sinus rhythm at a ventricular rate of 92 bpm, per my interpretation. EKG was reviewed by myself and found to be Normal Sinus Rhythm at a rate of 87 beats per minute and per my interpretation reveals no ST elevation or depression. Left anterior fascicular block is now present when compared to previous EKG of 11/05/2022. Chest x-ray. Findings: A chest x-ray was performed and revealed no pneumothorax, consolidation, per my interpretation. Chronic changes noted. EMERGENCY DEPARTMENT COURSE: The patient was seen and Vituz above. The patient is concern for bloating and edema. On examination, he does have lower extremity pitting edema. The patient was found to have orthopnea. He was complaining shortness of breath about senior living throughout his stay and this did resolve with sitting in a more upright position. IV access was obtained, labs were drawn. There was no leukocytosis, anemia, thrombocytopenia. Renal, hepatic function and electrolytes without significant abnormality. Blood glucose is elevated at 128. BNP mildly elevated at 344. Troponin 18.9. Lipase mildly elevated at 111. Urinalysis positive for 2+ protein, white blood cells, and 4+ bacteria. I discussed case with my attending physician Patient was medicated with IV Lasix. [facility]. I suspect the patient may be experiencing early CHF. This would likely explain his orthopnea and edema. No evidence of ACS at this time. The patient does not have EKG changes or positive troponin to suggest ACS. He is not experiencing chest pain. No clear evidence of infection at this time. Patient is not a surgical abdomen. He is not complaining of any abdominal pain. He is afebrile. Please see hospitalist dictation regarding ongoing management and care of this patient. I attest that I have personally reviewed the patient medication list. I attest that I have reviewed the patient's blood pressure and it was found to be normal GCS: 15 In the evaluation and treatment of this patient the following differential diagnoses were entertained: infection, trauma, lymphedema, DVT, musculoskeletal, idiopathic, CHF, as well as other pathologies. The chart was completed utilizing [employer] voice recognition software. Grammatical errors, random word insertions, pronoun errors, and incomplete sentences are an occasional consequence of this system due to software limitations, ambient noise, and hardware issues. Any formal questions or concerns about the content, text, or information contained within the body of this dictation should be directly addressed to the provider for clarification. Past Med/Surg History Problem List (Updated 08/31/23 @ 07:18 by Andreina Lo PA-C) Orthopnea (Acute) Edema (Acute) CHF (congestive heart failure) (Acute) Lower back pain Chronic insomnia (Acute) Chronic pain Migraines Cellulitis (Acute) Osteomyelitis (Acute) Small cell lung cancer With mets to the brain- dx'ed 2018- s/p XRT No current issues Insulin dependent type 2 diabetes mellitus (Acute) Glucose improving Encounter for pre-operative examination Primary cancer of left upper lobe of lung (10/02/16) "Development of left neck and arm swelling CT finding of impending superior vena caval syndrome, mediastinal mass and left upper lobe mass Status post anterior mediastinal endoscopy and biopsy [place] procedure 10/02/2016 Small cell carcinoma Emergent chemotherapy 10/10/2016 carboplatin and etoposide Excellent clinical response Status post completion of combined radiation and chemotherapy radiation completed 12/19/2016. He received 7000 cGy 12/24/2017 finding of brain metastasis 01/16/2018 status post completion of whole brain radiation therapy. He received 3000 cGy. On 10/17/16 10:30 Alexsandra Galvez wrote "Development of left neck and arm swelling CT finding of impending superior vena caval syndrome, mediastinal mass and left upper lobe mass Status post anterior mediastinal endoscopy and biopsy [place] procedure 10/02/2016 Small cell carcinoma Emergent chemotherapy 10/10/2016 carboplatin and etoposide Excellent clinical response Planned PET/CT 10/18/2016" On 10/17/16 10:22 Alexsandra Galvez wrote "Development of left neck and arm swelling CT finding of impending superior vena caval syndrome Status post anterior mediastinal endoscopy and biopsy [place] procedure 10/02/2016 Small cell carcinoma Emergent chemotherapy 10/10/2016 carboplatin and etoposide Excellent clinical response Planned PET/CT 10/18/2016" Sinus tachycardia Uncontrolled type II diabetes mellitus (Chronic) Surgical wound, non healing (Acute) Post laminectomy syndrome Chronic back pain (Chronic) Anxiety (Chronic) Medical History Chronic headaches Following with neuro Hypertension COPD (chronic obstructive pulmonary disease) Breathing stable No oxygen needed Chronic ulcer of left foot Pt denies any current issues- resolved Depression Post traumatic stress disorder Hyperlipidemia Insomnia Pulmonary emboli Was on Lovenox in the past but stopped due to brain hemorrhage Neuropathy To bilateral feet Afib No anticoagulation Pt states a fib was secondary to previous pericardial effusion DVT of upper extremity (deep vein thrombosis) Poor historian - unsure of when dx'ed Osteomyelitis No current issues Partial nontraumatic amputation of left foot Smoking DVT prophylaxis Diabetic peripheral neuropathy Diabetic foot ulcer with osteomyelitis Osteomyelitis of great toe of left foot Skin ulcer of left great toe with necrosis of bone DKA, type 2 Open wound of left great toe Sepsis HLD (hyperlipidemia) HTN (hypertension) COPD (chronic obstructive pulmonary disease) Insomnia Depression with anxiety Pericardial effusion Resolved per May 2020 ECHO per cardio records Follows with cardio Surgical History (Updated 03/25/23 @ 00:08 by Leno Carter) Post-operative state History of knee surgery Right knee- has ligaments removed- has to wear brace or knee locates History of surgery Pericardiocentesis Nov 2019 History of hernia surgery x4 History of back surgery x4 Social History Smoking Status: Never smoker Tobacco Type: Cigarettes packs per day: 1; Cigarettes Per Day: 1.5packs/days x 40 years (intermittently); Second Hand Exposure: No; Do You Dip or Chew Tobacco: No; Tobacco Cessation Education Requested by Patient: No Hx Alcohol Use: No Hx Substance Use: No Preferred Language: Persian Communication Ability: Effective Communication Ability Comment: alert and oriented x3 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 Beliefs That Will Affect Care: [employer] Beliefs: orthodox marital status: Current Living Situation: Alone Current Living Situation Comment: Currently at [facility] current occupational status: disabled Other Information That Helps Us Care for You: No Feels Safe at Home: Yes Safety Concerns: Feels Safe At This Time Diet: regular caffeine: Yes during the past year weight has: remained stable Physical Activity Frequency: Does not Exercise Gender Identity: Male Assistive Devices: Cane Assistive Devices Comment: cane Allergies Allergies Allergy/AdvReac Type Severity Reaction Status Date / Time clindamycin Allergy Severe SHORTNESS Verified 03/10/23 17:22 OF BREATH dextromethorphan Allergy Severe HARD TO Verified 03/10/23 17:22 BREATHE? guaifenesin Allergy Severe HARD TO Verified 03/10/23 17:22 BREATHE? amoxicillin Allergy Intermediate SHORTNESS Verified 03/10/23 17:22 OF BREATH insulin aspart Allergy Unknown ALLERGIC Verified 03/10/23 17:22 TO PRESERVATIVES IN NOVOLOG - OK WITH REGULAR/NPH sitagliptin Allergy Unknown UNKNOWN RXN Verified 03/10/23 17:22 adhesive AdvReac Intermediate "rips his Verified 03/10/23 17:22 skin off" atorvastatin AdvReac Intermediate diarrhea Verified 03/10/23 17:22 duloxetine AdvReac Intermediate Abdominal Verified 03/10/23 17:22 Pain escitalopram AdvReac Intermediate GI UPSET Verified 03/10/23 17:22 gabapentin AdvReac Intermediate CONSTIPATIO Verified 03/10/23 17:22 N propoxyphene AdvReac Intermediate "DID CRAZY Verified 03/10/23 17:22 THINGS" tizanidine AdvReac Intermediate Diarrhea Verified 03/10/23 17:22 metformin AdvReac Unknown PT STATES Verified 03/10/23 17:22 "DID NOT WORK" Home Meds Home Medications Medication Instructions Recorded Confirmed diclofenac sodium 1 % topical gel 2 g topical QID PRN Pain 03/10/23 08/30/23 esomeprazole magnesium 40 mg 40 mg PO DAILYBB 03/10/23 08/30/23 capsule,delayed release rizatriptan 10 mg tablet 10 mg PO DIRECTED PRN Migraine 03/10/23 08/30/23 Headache rosuvastatin 40 mg tablet 40 mg PO HS 03/10/23 08/30/23 semaglutide 1 mg/dose (4 mg/3 mL) 1 mg subcut .QWEEK 03/10/23 08/31/23 subcutaneous pen injector (Ozempic) zolpidem 10 mg tablet 10 mg PO HS Insomnia 03/10/23 08/30/23 gabapentin 800 mg tablet 800 mg PO TID 08/30/23 08/30/23 ibuprofen 600 mg tablet 600 mg PO Q8 PRN Back Pain 08/30/23 08/30/23 trazodone 50 mg tablet 100 mg PO HS 08/30/23 08/30/23 albuterol sulfate 90 mcg/actuation 2 puff inhalation QID PRN 08/31/23 08/31/23 aerosol inhaler Shortness Of Breath Or Wheezing magnesium salicylate (David's Extra 580 mg PO Q6H PRN Back Pain 08/31/23 08/31/23 Strength) [id number] acid-vit 1 tab PO DAILY 08/31/23 08/31/23 K-lycop 400 mcg-20 mcg-370 mcg tablet (Men's 50 Plus Multivitamin) naproxen sodium 220 mg tablet 220 mg PO Q8H PRN BACK PAIN' 08/31/23 08/31/23 (Aleve) Results & Data (ED) Vital Signs Vital Signs - 24 hr 08/30/23 21:08 08/30/23 21:11 08/30/23 21:16 Temperature 36.9 C Temperature Source Oral Pulse Rate 95 H 92 H Pulse Rate [Apical] 95 H Respiratory Rate 19 19 Blood Pressure 126/80 Blood Pressure [Right Arm] 126/80 Blood Pressure Mean 95 Blood Pressure Mean [Right Arm] 95 Pulse Oximetry 91 91 Oxygen Delivery Method Room Air Room Air Oxygen Flow Rate Sepsis Recent Fever Within 48 Hours No Sepsis New/Unexplained Change in Mental Status N/A Sepsis Action Taken by Nursing No Action Required 08/30/23 22:13 08/30/23 23:00 08/31/23 01:00 Temperature Temperature Source Pulse Rate Pulse Rate [Apical] 90 91 H Respiratory Rate 16 24 Blood Pressure Blood Pressure [Right Arm] 129/86 135/90 Blood Pressure Mean Blood Pressure Mean [Right Arm] 100 105 Pulse Oximetry 94 96 94 Oxygen Delivery Method Room Air Room Air Nasal Cannula Oxygen Flow Rate 2 Sepsis Recent Fever Within 48 Hours Sepsis New/Unexplained Change in Mental Status Sepsis Action Taken by Nursing 08/31/23 01:14 Temperature Temperature Source Pulse Rate 85 Pulse Rate [Apical] Respiratory Rate Blood Pressure Blood Pressure [Right Arm] Blood Pressure Mean Blood Pressure Mean [Right Arm] Pulse Oximetry Oxygen Delivery Method Oxygen Flow Rate Sepsis Recent Fever Within 48 Hours Sepsis New/Unexplained Change in Mental Status Sepsis Action Taken by Nursing Laboratory Data 08/31/23 05:22 08/31/23 05:22 Lab Results 08/30/23 08/31/23 08/31/23 Range/Units 22:14 00:33 01:13 WBC 9.98 (4.8-10.8) K/ul RBC 4.96 (4.70-6.10) M/uL Hgb 15.4 (14.0-18.0) g/dl Hct 46.9 (42.0-52.0) % MCV 94.6 (80.0-100.0) fL MCH 31.0 (25.0-34.0) pg MCHC 32.8 (32.0-36.0) g/dL RDW Std Deviation 51.1 H (36.4-46.3) fL RDW Coeff of Alex 14.7 H (11.5-14.5) % Plt Count 196 (130-400) K/uL MPV 10.4 (9.4-12.4) fL Immature Gran % (Auto) 0.4 % Neut % (Auto) 78.5 % Lymph % (Auto) 10.2 % [place] % (Auto) 8.2 % Eos % (Auto) 2.3 % Baso % (Auto) 0.4 % Neut # (Auto) 7.83 H (1.40-6.50) K/uL Lymph # (Auto) 1.02 L (1.20-3.40) K/uL [place] # (Auto) 0.82 H (0.11-0.59) K/uL Eos # (Auto) 0.23 (0.00-0.50) K/uL Baso # (Auto) 0.04 (0.00-0.20) K/uL Immature Gran # (Auto) 0.04 (0.01-0.20) K/uL PT Cancelled 10.9 INR Cancelled 1.0 APTT Cancelled 28 PTT Ratio Cancelled 1.0 Sodium 143 (136-145) mmol/L Potassium 4.3 (3.5-5.1) mmol/L Chloride 109 H (98-107) mmol/L Carbon Dioxide 32 (21-32) mmol/L Anion Gap 2 L (3-11) BUN 16 (6-23) mg/dl Creatinine 0.91 (0.6-1.4) mg/dl Est Cr Clr Drug Dosing 120.0 ml/min Est GFR ( Amer) 105.1 ml/min Est GFR (Non-Af Amer) 90.6 ml/min BUN/Creatinine Ratio 17.6 (10-20) Glucose 128 H (70-99(Fasting)) mg/dl Calcium 9.7 (8.6-10.3) mg/dl Total Bilirubin 0.2 (0.2-1.0) mg/dl AST 52 H (13-39) U/L ALT 16 (7-52) U/L Alkaline Phosphatase 48 (34-104) U/L Troponin I High Sens 18.9 (0-20) pg/ml B-Natriuretic Peptide 344 H (0-100) pg/ml Total Protein 6.9 (6.0-8.3) gm/dl Albumin 3.8 (3.4-5.0) gm/dl Globulin 3.1 (2.5-4.0) gm/dl Albumin/Globulin Ratio 1.2 (0.9-2) Lipase 111 H (11-82) U/L Urine Color Yellow Urine Appearance Turbid A (Clear) Urine pH 7.0 (4.5-7.5) Ur Specific [place] 1.018 (1.000-1.030) Urine Protein 2+ H (Negative) Urine Glucose (UA) Negative (Negative) Urine Ketones Negative (Negative) Urine Blood Negative (Negative) Urine Nitrite Negative (Negative) Urine Bilirubin Negative (Negative) Urine Urobilinogen Negative (Negative) Ur Leukocyte Esterase Negative (Negative) Urine WBC (Auto) 6-10 H (0-5) /hpf Urine RBC (Auto) 0-2 (0-2) /hpf U Hyaline Cast (Auto) 0-2 (0-2) /lpf U Epithel Cells (Auto) 0-2 (0-2) /hpf Urine Bacteria (Auto) 4+ H (None Seen) Administered Medications Acetaminophen (Acetaminophen 325 Mg Tab) 650 mg PO Q4H PRN PRN Reason: Pain or Fever Stop: 09/30/23 03:53 Last Admin: 08/31/23 05:37 Dose: 650 mg Documented By: RIMA Pantoprazole Sodium (Pantoprazole 40 Mg Tab) 40 mg PO DAILYBB LUCIANA Stop: 09/30/23 06:29 Last Admin: 08/31/23 06:06 Dose: 40 mg Documented By: RIMA Discontinued Medications Furosemide (Furosemide 40 Mg/4 Ml Vial) 40 mg IV ONE ONE Stop: 08/31/23 00:08 Last Admin: 08/31/23 00:48 Dose: 40 mg Documented By: JARRETT Ioversol (Optiray 320 125ml) 125 ml IV ONCE ONE Stop: 08/31/23 05:22 Last Admin: 08/31/23 05:22 Dose: 118 ml Documented By: REYNA Oxycodone HCl (Oxycodone Hcl Ir 5 Mg Tab (Immediate Release)) 5 mg PO NOW STA Stop: 08/31/23 02:25 Last Admin: 08/31/23 02:43 Dose: 5 mg Documented By: JARRETT Imaging Data Radiologist's Impression: Chest X-Ray 08/30/23 21:49 XR chest 1V portable HISTORY: 63 years-old Male edema acute shortness of breath COMPARISON: CTA chest of same day, chest radiograph 11/05/2022. TECHNIQUE: AP view of the chest FINDINGS: Emphysema. No pneumothorax. No pleural effusions. Chronic consolidation within the left upper lung zone with associated retraction volume loss within the left hemithorax consistent with postoperative change. The right lung remains clear. The heart is stable in size. IMPRESSION: 1. No acute processes of the chest. 2. Stable postoperative changes again noted within the left lung with volume loss and consolidation. ACT 112: Negative or not required by law. The above report was generated using voice recognition software. It may contain grammatical, syntax or spelling errors. Electronically signed by: Herb Hyde M.D. 08/31/2023 7:04 AM Discharge Plan Visit Data Chief Complaint: Back Injury/Pain Stated Complaint: Back Pain, Swelling in Legs ED Provider: Reyna Hope ED Midlevel Provider: Andreina Lo Discharge Problem: CHF (congestive heart failure), Chronic back pain, Edema, Orthopnea Patient Disposition: Admitted As Inpatient Discharge Instructions Interventions: ED Discharge Assessment Last Done: 08/31/23 03:25
[2023-08-30 22:36] LABS: Basophils # (auto) 0.04 K/uL (0.00-0.20); Basophils % (auto) 0.4 %; Eosinophils # (auto) 0.23 K/uL (0.00-0.50); Eosinophils % (auto) 2.3 %; Hematocrit (blood only) 46.9 % (42.0-52.0); Hemoglobin 15.4 g/dl (14.0-18.0); Immature Granulocytes # (auto) 0.04 K/uL (0.01-0.20); Immature Granulocytes % (auto) 0.4 %; Lymphocytes # (auto) 1.02 K/uL (1.20-3.40); Lymphocytes % (auto) 10.2 %; Mean Corpuscular Hgb Conc 32.8 g/dL (32.0-36.0); Mean Corpuscular Volume 94.6 fL (80.0-100.0); Mean Platelet Volume 10.4 fL (9.4-12.4); Monocytes # (auto) 0.82 K/uL (0.11-0.59); Monocytes % (auto) 8.2 %; Neutrophils # (auto) 7.83 K/uL (1.40-6.50); Neutrophils % (auto) 78.5 %; Platelet Count 196 K/uL (130-400); RDW Coefficient of Variation 14.7 % (11.5-14.5); RDW Standard Deviation 51.1 fL (36.4-46.3); Red Blood Count 4.96 M/uL (4.70-6.10); White Blood Count 9.98 K/ul (4.8-10.8)
[2023-08-30 23:01] LABS: Albumin Globulin Ratio 1.2 (0.9-2); Albumin Level 3.8 gm/dl (3.4-5.0); BUN Creatinine Ratio 17.6 (10-20); Bilirubin,Total 0.2 mg/dl (0.2-1.0); Calcium 9.7 mg/dl (8.6-10.3); Est GFR (African American) 105.1 ml/min; Est GFR (Non-African American) 90.6 ml/min; Globulin 3.1 gm/dl (2.5-4.0); Potassium 4.3 mmol/L (3.5-5.1); Total Protein 6.9 gm/dl (6.0-8.3)
[2023-08-30 23:07] LABS: Troponin I High Sensitivity 18.9 pg/ml (0-20)
--- NOTE | 2023-08-31 00:06 | Emergency Department Note ---
ED Visit Note I was consulted by the Advanced Practice Provider, Andreina Lo PA-C. I performed a substantive portion of the visit. This includes aspects of: History: Patient is a 63-year-old male presenting with diffuse bloating and bilateral ankle swelling. He states the last 24 to 48 hours he has been having swelling to his bilateral legs, abdomen and back. He denies any chest pain or significant shortness of breath. He has a history of lung cancer. Denies any fevers MDM: - Laboratory workup interpreted by myself showed normal WBC; stable el ectrolytes; normal creatinine; elevated AST (52); normal troponin; elevated BNP (344); elevated lipase (111) - CXR showed chronic consolidation with a left upper lung zone, per my interpretation. However, does look like he may have some developing pulmonary edema in the left lower lobe. - Patient has evidence of heart failure. His last echocardiogram dated 07/17/2022 was reviewed. He did have a preserved ejection fraction of 60 to 65% at that time, but was noted to have grade 1 diastolic dysfunction. - Patient is not currently on any Lasix. He was given 40 mg IV. - Patient will be admitted to hospital service for further evaluation and management. .
[2023-08-31] MEDS: FUROSEMIDE 40 MG/4 ML VIAL IV ONE (00:48)
[2023-08-31 01:15] LABS: Partial Thromboplastin Time 28 Seconds (21-31); Prothrombin Time 10.9 Seconds (9.0-12.0)
[2023-08-31 01:42] LABS: Appearance Urine Turbid (Clear); Bacteria Urine Automated 4+ (None Seen); Bilirubin Urine Negative (Negative); Blood Urine Negative (Negative); Cast Urine Automated 0-2 /lpf (0-2); Color Urine Yellow; Epithelial Cell Urine Auto 0-2 /hpf (0-2); Glucose Urine UA Negative (Negative); Ketones Urine Negative (Negative); Leukocyte Esterase Urine Negative (Negative); Nitrite Urine Negative (Negative); Protein Urine 2+ (Negative); RBC Urine Automated 0-2 /hpf (0-2); Specific Gravity Urine 1.018 (1.000-1.030); Urobilinogen Urine Negative (Negative)
[2023-08-31] MEDS: oxyCODONE HCL IR 5 MG TAB (IMMEDIATE RELEASE) PO STA (02:43)
--- NOTE | 2023-08-31 03:00 | History & Physical Report ---
Date of Service August 31, 2023 Assessment & Plan (1) CHF (congestive heart failure): Plan: 63-year-old male with past med history significant for diabetes, hyperlipidemia, COPD, history of small cell lung cancer s/p chemoradiation, brain metastasis s/p radiation, hypertension, history of A-fib, GERD, amputation of the toe of the right foot, chronic back pain, spinal stenosis, postlaminectomy syndrome, tobacco use, anxiety and depression presents with edema of lower extremity and feeling of bloating and shortness of breath. Patient states in the last 2 days started feeling bloating and also developed edema in the extremity extremities. Because of abdominal distension states its pushing on his lungs and is feeling short of breath. In the ER noted to have orthopnea. Denies any chest pain. No headache or dizziness. Vision is okay. No runny nose or sore throat. Currently no cough. Appetite is okay. No difficulty swallowing. No nausea. Normal bowel and bladder movements. Currently resting comfortably and hemodynamically stable. Possible CHF feeling of bloating lower Extremity edema orthopnea mild elevation of BNP received a dose of IV Lasix in the ER monitor in telemetry follow echo will follow CTA chest consult cardiology in a.m. for further recommendations history of small cell lung cancer s/p chemoradiation history of brain metastasis with 2.5 cm right cerebellar hemispheric mass which was hemorrhagic in nature received Decadron and also completed brain radiation treatment. Seems in remission follow-up with heme-onc history of PE and DVT anticoagulation was stopped when he developed hemorrhagic brain metastasis history of pericardial effusion status post pericardiocentesis hyperlipidemia on statin diabetes hold Ozempic sliding scale follow HbA1c levels GERD omeprazole chronic back pain multiple back surgeries pain control PT OT when stable DVT prophylaxis Lovenox for now disposition telemetry full code History of Present Illness Chief Complaint: edema and shortness of breath Primary Care Provider: Efraín Zamudio MD 63-year-old male with past med history significant for diabetes, hyperlipidemia, COPD, history of small cell lung cancer s/p chemoradiation, brain metastasis s/p radiation, hypertension, history of A-fib, GERD, amputation of the toe of the right foot, chronic back pain, spinal stenosis, postlaminectomy syndrome, tobacco use, anxiety and depression presents with edema of lower extremity and feeling of bloating and shortness of breath. Patient states in the last 2 days started feeling bloating and also developed edema in the extremity extremities. Because of abdominal distension states its pushing on his lungs and is feeling short of breath. In the ER noted to have orthopnea. Denies any chest pain. No headache or dizziness. Vision is okay. No runny nose or sore throat. Currently no cough. Appetite is okay. No difficulty swallowing. No nausea. Normal bowel and bladder movements. Currently resting comfortably and hemodynamically stable. Medical history. As mentioned above past surgical history. Colonoscopy. Pericardiocentesis. Umbilical hernia repair. Multiple lumbar spine operations. social history. Single. Quit smoking 2016. Smoked 0.3 packs a day for 33 years. No alcohol use. No drug use. Family history. No family history on file Allergies Allergy/AdvReac Type Severity Reaction Status Date / Time clindamycin Allergy Severe SHORTNESS Verified 03/10/23 17:22 OF BREATH dextromethorphan Allergy Severe HARD TO Verified 03/10/23 17:22 BREATHE? guaifenesin Allergy Severe HARD TO Verified 03/10/23 17:22 BREATHE? amoxicillin Allergy Intermediate SHORTNESS Verified 03/10/23 17:22 OF BREATH insulin aspart Allergy Unknown ALLERGIC Verified 03/10/23 17:22 TO PRESERVATIVES IN NOVOLOG - OK WITH REGULAR/NPH sitagliptin Allergy Unknown UNKNOWN RXN Verified 03/10/23 17:22 adhesive AdvReac Intermediate "rips his Verified 03/10/23 17:22 skin off" atorvastatin AdvReac Intermediate diarrhea Verified 03/10/23 17:22 duloxetine AdvReac Intermediate Abdominal Verified 03/10/23 17:22 Pain escitalopram AdvReac Intermediate GI UPSET Verified 03/10/23 17:22 gabapentin AdvReac Intermediate CONSTIPATIO Verified 03/10/23 17:22 N propoxyphene AdvReac Intermediate "DID CRAZY Verified 03/10/23 17:22 THINGS" tizanidine AdvReac Intermediate Diarrhea Verified 03/10/23 17:22 metformin AdvReac Unknown PT STATES Verified 03/10/23 17:22 "DID NOT WORK" Home Medications Medication Instructions Recorded Confirmed Type diclofenac sodium 1 % topical gel 2 g topical QID PRN Pain 03/10/23 08/30/23 History esomeprazole magnesium 40 mg 40 mg PO DAILYBB 03/10/23 08/30/23 History capsule,delayed release rizatriptan 10 mg tablet 10 mg PO DIRECTED PRN Migraine 03/10/23 08/30/23 History Headache rosuvastatin 40 mg tablet 40 mg PO HS 03/10/23 08/30/23 History semaglutide 1 mg/dose (4 mg/3 mL) 1 mg subcut .QWEEK 03/10/23 08/31/23 History subcutaneous pen injector (Ozempic) zolpidem 10 mg tablet 10 mg PO HS Insomnia 03/10/23 08/30/23 History gabapentin 800 mg tablet 800 mg PO TID 08/30/23 08/30/23 History ibuprofen 600 mg tablet 600 mg PO Q8 PRN Back Pain 08/30/23 08/30/23 History trazodone 50 mg tablet 100 mg PO HS 08/30/23 08/30/23 History albuterol sulfate 90 mcg/actuation 2 puff inhalation QID PRN 08/31/23 08/31/23 History aerosol inhaler Shortness Of Breath Or Wheezing magnesium salicylate (David's Extra 580 mg PO Q6H PRN Back Pain 08/31/23 08/31/23 History Strength) [id number]-[id number] acid-vit 1 tab PO DAILY 08/31/23 08/31/23 History K-lycop 400 mcg-20 mcg-370 mcg tablet (Men's 50 Plus Multivitamin) naproxen sodium 220 mg tablet 220 mg PO Q8H PRN BACK PAIN' 08/31/23 08/31/23 History (Alegabriela) Past Med/Surg History Problem List (Updated 08/31/23 @ 07:18 by Andreina Lo PAValenciaC) Orthopnea (Acute) Edema (Acute) CHF (congestive heart failure) (Acute) Lower back pain Chronic insomnia (Acute) Chronic pain Migraines Cellulitis (Acute) Osteomyelitis (Acute) Small cell lung cancer With mets to the brain- dx'ed 2018- s/p XRT No current issues Insulin dependent type 2 diabetes mellitus (Acute) Glucose improving Encounter for pre-operative examination Primary cancer of left upper lobe of lung (10/02/16) "Development of left neck and arm swelling CT finding of impending superior vena caval syndrome, mediastinal mass and left upper lobe mass Status post anterior mediastinal endoscopy and biopsy Dierks procedure 10/02/2016 Small cell carcinoma Emergent chemotherapy 10/10/2016 carboplatin and etoposide Excellent clinical response Status post completion of combined radiation and chemotherapy radiation completed 12/19/2016. He received 7000 cGy 12/24/2017 finding of brain metastasis 01/16/2018 status post completion of whole brain radiation therapy. He received 3000 cGy. On 10/17/16 10:30 Alexsandra Galvez wrote "Development of left neck and arm swelling CT finding of impending superior vena caval syndrome, mediastinal mass and left upper lobe mass Status post anterior mediastinal endoscopy and biopsy Dierks procedure 10/02/2016 Small cell carcinoma Emergent chemotherapy 10/10/2016 carboplatin and etoposide Excellent clinical response Planned PET/CT 10/18/2016" On 10/17/16 10:22 Alexsandra Galvez wrote "Development of left neck and arm swelling CT finding of impending superior vena caval syndrome Status post anterior mediastinal endoscopy and biopsy Dierks procedure 10/02/2016 Small cell carcinoma Emergent chemotherapy 10/10/2016 carboplatin and etoposide Excellent clinical response Planned PET/CT 10/18/2016" Sinus tachycardia Uncontrolled type II diabetes mellitus (Chronic) Surgical wound, non healing (Acute) Post laminectomy syndrome Chronic back pain (Chronic) Anxiety (Chronic) Medical History Chronic headaches Following with neuro Hypertension COPD (chronic obstructive pulmonary disease) Breathing stable No oxygen needed Chronic ulcer of left foot Pt denies any current issues- resolved Depression Post traumatic stress disorder Hyperlipidemia Insomnia Pulmonary emboli Was on Lovenox in the past but stopped due to brain hemorrhage Neuropathy To bilateral feet Afib No anticoagulation Pt states a fib was secondary to previous pericardial effusion DVT of upper extremity (deep vein thrombosis) Poor historian - unsure of when dx'ed Osteomyelitis No current issues Partial nontraumatic amputation of left foot Smoking DVT prophylaxis Diabetic peripheral neuropathy Diabetic foot ulcer with osteomyelitis Osteomyelitis of great toe of left foot Skin ulcer of left great toe with necrosis of bone DKA, type 2 Open wound of left great toe Sepsis HLD (hyperlipidemia) HTN (hypertension) COPD (chronic obstructive pulmonary disease) Insomnia Depression with anxiety Pericardial effusion Resolved per May 2020 ECHO per cardio records Follows with cardio Surgical History (Updated 03/25/23 @ 00:08 by Background Daemon) Post-operative state History of knee surgery Right knee- has ligaments removed- has to wear brace or knee locates History of surgery Pericardiocentesis Nov 2019 History of hernia surgery x4 History of back surgery x4 Social History Smoking Status: Never smoker Tobacco Type: Cigarettes packs per day: 1; Cigarettes Per Day: 1.5packs/days x 40 years (intermittently); Second Hand Exposure: No; Do You Dip or Chew Tobacco: No; Tobacco Cessation Education Requested by Patient: No Hx Alcohol Use: No Hx Substance Use: No Preferred Language: Lao Communication Ability: Effective Communication Ability Comment: alert and oriented 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 Beliefs That Will Affect Care: Hinduism Hinduism Beliefs: christianity marital status: Current Living Situation: Alone Current Living Situation Comment: Currently at [facility] current occupational status: disabled Other Information That Helps Us Care for You: No Feels Safe at Home: Yes Safety Concerns: Feels Safe At This Time Diet: regular caffeine: Yes during the past year weight has: remained stable Physical Activity Frequency: Does not Exercise Gender Identity: Male Assistive Devices: Cane Assistive Devices Comment: cane Review of Systems Review of Systems: All systems reviewed & are unremarkable except as noted in HPI & below Physical Exam Physical Exam: General- Not in distress. Head- atraumatic Eyes- EOMI ENT- oropharynx clear Neck- supple, no JVD. Lungs- clear to auscultation no wheezing or crackles. Heart- regular rate and rhythm; no murmur, no gallop. Abdomen- normal bowel sounds, soft, nontender, no distension Extremities- Mild pretibial edema present , no erythema seen Neuro- alert, oriented EOMI; no facial palsy; no dysarthria; moves extremities. Results & Data Results & Data Vital Signs (Past 12 Hours) Vital Signs Temp Pulse Pulse Resp BP BP Pulse Ox 08/31/23 01:14 85 08/31/23 01:00 91 H 24 135/90 94 08/30/23 23:00 90 16 129/86 96 08/30/23 22:13 94 08/30/23 21:16 92 H 08/30/23 21:11 95 H 19 126/80 91 08/30/23 21:08 36.9 C 95 H 19 126/80 91 O2 Del Method O2 Flow Rate 08/31/23 01:14 08/31/23 01:00 Nasal Cannula 2 08/30/23 23:00 Room Air 08/30/23 22:13 Room Air 08/30/23 21:16 08/30/23 21:11 Room Air 08/30/23 21:08 Room Air Diagnostic Findings Laboratory Results WBC 9.98 K/ul (4.8-10.8) 08/30/23 22:14 RBC 4.96 M/uL (4.70-6.10) 08/30/23 22:14 Hgb 15.4 g/dl (14.0-18.0) 08/30/23 22:14 Hct 46.9 % (42.0-52.0) 08/30/23 22:14 MCV 94.6 fL (80.0-100.0) 08/30/23 22:14 MCH 31.0 pg (25.0-34.0) 08/30/23 22:14 MCHC 32.8 g/dL (32.0-36.0) 08/30/23 22:14 RDW Std Deviation 51.1 fL (36.4-46.3) H 08/30/23 22:14 RDW Coeff of Alex 14.7 % (11.5-14.5) H 08/30/23 22:14 Plt Count 196 K/uL (130-400) 08/30/23 22:14 MPV 10.4 fL (9.4-12.4) 08/30/23 22:14 Immature Gran % (Auto) 0.4 % 08/30/23 22:14 Neut % (Auto) 78.5 % 08/30/23 22:14 Lymph % (Auto) 10.2 % 08/30/23 22:14 [place] % (Auto) 8.2 % 08/30/23 22:14 Eos % (Auto) 2.3 % 08/30/23 22:14 Baso % (Auto) 0.4 % 08/30/23 22:14 Neut # (Auto) 7.83 K/uL (1.40-6.50) H 08/30/23 22:14 Lymph # (Auto) 1.02 K/uL (1.20-3.40) L 08/30/23 22:14 [place] # (Auto) 0.82 K/uL (0.11-0.59) H 08/30/23 22:14 Eos # (Auto) 0.23 K/uL (0.00-0.50) 08/30/23 22:14 Baso # (Auto) 0.04 K/uL (0.00-0.20) 08/30/23 22:14 Immature Gran # (Auto) 0.04 K/uL (0.01-0.20) 08/30/23 22:14 PT 10.9 Seconds (9.0-12.0) 08/31/23 00:33 INR 1.0 (0.9-1.1) 08/31/23 00:33 APTT 28 Seconds (21-31) 08/31/23 00:33 PTT Ratio 1.0 08/31/23 00:33 Sodium 143 mmol/L (136-145) 08/30/23 22:14 Potassium 4.3 mmol/L (3.5-5.1) 08/30/23 22:14 Chloride 109 mmol/L (98-107) H 08/30/23 22:14 Carbon Dioxide 32 mmol/L (21-32) 08/30/23 22:14 Anion Gap 2 (3-11) L 08/30/23 22:14 BUN 16 mg/dl (6-23) 08/30/23 22:14 Creatinine 0.91 mg/dl (0.6-1.4) 08/30/23 22:14 Est Cr Clr Drug Dosing 120.0 ml/min 08/30/23 22:14 Est GFR ( Amer) 105.1 ml/min 08/30/23 22:14 Est GFR (Non-Af Amer) 90.6 ml/min 08/30/23 22:14 BUN/Creatinine Ratio 17.6 (10-20) 08/30/23 22:14 Glucose 128 mg/dl (70-99(Fasting)) H 08/30/23 22:14 Calcium 9.7 mg/dl (8.6-10.3) 08/30/23 22:14 Total Bilirubin 0.2 mg/dl (0.2-1.0) 08/30/23 22:14 AST 52 U/L (13-39) H 08/30/23 22:14 ALT 16 U/L (7-52) 08/30/23 22:14 Alkaline Phosphatase 48 U/L (34-104) 08/30/23 22:14 Troponin I High Sens 18.9 pg/ml (0-20) 08/30/23 22:14 B-Natriuretic Peptide 344 pg/ml (0-100) H 08/30/23 22:14 Total Protein 6.9 gm/dl (6.0-8.3) 08/30/23 22:14 Albumin 3.8 gm/dl (3.4-5.0) 08/30/23 22:14 Globulin 3.1 gm/dl (2.5-4.0) 08/30/23 22:14 Albumin/Globulin Ratio 1.2 (0.9-2) 08/30/23 22:14 Lipase 111 U/L (11-82) H 08/30/23 22:14 Urine Color Yellow 08/31/23 01:13 Urine Appearance Turbid (Clear) A 08/31/23 01:13 Urine pH 7.0 (4.5-7.5) 08/31/23 01:13 Ur Specific Lambert 1.018 (1.000-1.030) 08/31/23 01:13 Urine Protein 2+ (Negative) H 08/31/23 01:13 Urine Glucose (UA) Negative (Negative) 08/31/23 01:13 Urine Ketones Negative (Negative) 08/31/23 01:13 Urine Blood Negative (Negative) 08/31/23 01:13 Urine Nitrite Negative (Negative) 08/31/23 01:13 Urine Bilirubin Negative (Negative) 08/31/23 01:13 Urine Urobilinogen Negative (Negative) 08/31/23 01:13 Ur Leukocyte Esterase Negative (Negative) 08/31/23 01:13 Urine WBC (Auto) 6-10 /hpf (0-5) H 08/31/23 01:13 Urine RBC (Auto) 0-2 /hpf (0-2) 08/31/23 01:13 U Hyaline Cast (Auto) 0-2 /lpf (0-2) 08/31/23 01:13 U Epithel Cells (Auto) 0-2 /hpf (0-2) 08/31/23 01:13 Urine Bacteria (Auto) 4+ (None Seen) H 08/31/23 01:13 ECG Additional Comments: ECG. Normal sinus rhythm rate of 77. Left anterior fascicle block. Code Status & VTE Plan VTE Prophylaxis Plan VTE Prophylaxis will be ordered: Yes
[2023-08-31] MEDS ORDERED: NITROGLYCERIN SL 0.4 MG/TAB TAB SL PRN (03:54)
[2023-08-31] MEDS ORDERED: POLYETHYLENE (MIRALAX) 17 GM PACK PO PRN (03:54)
[2023-08-31] MEDS ORDERED: DEXTROSE 50% 50 ML SYRINGE IV PRN (03:54)
[2023-08-31] MEDS ORDERED: CARBOHYDRATES FOR HYPOGLYCEMIA PO PRN (03:54)
[2023-08-31] MEDS ORDERED: MAGNESIUM SALICYLATE PO PRN (03:54)
[2023-08-31] MEDS ORDERED: DICLOFENAC SOD 1% GEL 100 GM TUBE EXT PRN (03:54)
[2023-08-31] MEDS ORDERED: GLUCOSE 40% GEL 15 GM TUBE PO PRN (03:54)
[2023-08-31] MEDS ORDERED: GLUCOSE 10 TAB/TUBE PO PRN (03:54)
[2023-08-31] MEDS ORDERED: GLUCAGON FOR INJ 1 MG VIAL SQ PRN (03:54)
[2023-08-31] MEDS: OPTIRAY 320 125ml IV ONE (05:22)
[2023-08-31] MEDS: ACETAMINOPHEN 325 MG TAB PO PRN (05:37)
[2023-08-31 05:59] LABS: Basophils # (auto) 0.04 K/uL (0.00-0.20); Basophils % (auto) 0.5 %; Eosinophils # (auto) 0.23 K/uL (0.00-0.50); Eosinophils % (auto) 2.7 %; Hematocrit (blood only) 45.7 % (42.0-52.0); Hemoglobin 15.3 g/dl (14.0-18.0); Immature Granulocytes # (auto) 0.03 K/uL (0.01-0.20); Immature Granulocytes % (auto) 0.4 %; Lymphocytes # (auto) 1.13 K/uL (1.20-3.40); Lymphocytes % (auto) 13.3 %; Mean Corpuscular Hemoglobin 31.4 pg (25.0-34.0); Mean Corpuscular Hgb Conc 33.5 g/dL (32.0-36.0); Mean Corpuscular Volume 93.8 fL (80.0-100.0); Mean Platelet Volume 10.5 fL (9.4-12.4); Monocytes # (auto) 0.89 K/uL (0.11-0.59); Monocytes % (auto) 10.5 %; Neutrophils # (auto) 6.19 K/uL (1.40-6.50); Neutrophils % (auto) 72.6 %; Platelet Count 206 K/uL (130-400); RDW Coefficient of Variation 14.6 % (11.5-14.5); RDW Standard Deviation 50.8 fL (36.4-46.3); Red Blood Count 4.87 M/uL (4.70-6.10); White Blood Count 8.51 K/ul (4.8-10.8)
[2023-08-31] MEDS: PANTOprazole 40 MG TAB PO SCH (06:06)
[2023-08-31 06:16] LABS: BUN Creatinine Ratio 16.9 (10-20); Calcium 9.2 mg/dl (8.6-10.3); Creatinine Clr Calc Pharmacy 121.5 ml/min; Est GFR (Non-African American) 92.3 ml/min; Magnesium 1.9 mg/dl (1.7-2.4); Potassium 4.1 mmol/L (3.5-5.1)
[2023-08-31 06:21] LABS: Troponin I High Sensitivity 18.4 pg/ml (0-20)
--- NOTE | 2023-08-31 07:06 | XRay Report ---
XR chest 1V portable HISTORY: 63 years-old Male edema acute shortness of breath COMPARISON: CTA chest of same day, chest radiograph 11/05/2022. TECHNIQUE: AP view of the chest FINDINGS: Emphysema. No pneumothorax. No pleural effusions. Chronic consolidation within the left upper lung zo ne with associated retraction volume loss within the left hemithorax consistent with postoperative ch yamileth. The right lung remains clear. The heart is stable in size. IMPRESSION: 1. No acute processes of the chest. 2. Stable postoperative changes again noted within the left lung with volume loss and consolidation. ACT 112: Negative or not required by law. The above report was generated using voice recognition software. It may contain grammatical, syntax o r spelling errors. Electronically signed by: Herb Hyde M.D. 08/31/2023 7:04 AM
[2023-08-31 07:10] LABS: Estimated Average Glucose 146 mg/dl; Hemoglobin A1C 6.7 % (4.5-5.6)
[2023-08-31] MEDS: INSULIN ASPART PER UNIT CHARGE SC SCH (07:36)
[2023-08-31] MEDS: CEROVITE ADV FORMULA TAB PO SCH (08:00)
[2023-08-31] MEDS: GABAPENTIN 800 MG TAB PO SCH (08:00)
[2023-08-31] MEDS: ENOXAPARIN INJ 40 MG/0.4 ML SYR SQ SCH (08:00)
[2023-08-31] MEDS: oxyCODONE HCL IR 5 MG TAB (IMMEDIATE RELEASE) PO PRN (08:01)
--- NOTE | 2023-08-31 09:03 | Cardiology Consultation ---
Date of Consultation August 31, 2023 Assessment & Plan (1) Edema: (2) Hypertension: (3) Hyperlipidemia: (4) Small cell lung cancer: (5) Tobacco abuse: (6) Chronic back pain: Plan 63-year-old male admitted due to volume overload promptly resolving following one dose of IV furosemide in the ER. Patient euvolemic by examination this morning. History suggests volume overload may have been precipitated by NSAID use in combination with gabapentin for acute on chronic pain, also with excessive sodium intake. Resting echocardiogram pending. Further recommendations pending the results of the resting echocardiogram as well as evaluation by Dr. Alcantar. NSAID risks discussed. Tobacco cessation advised. Risk factor and lifestyle modification discussed. I spent a total of 50 minutes on the date of service in preparation, delivery, and documentation of the care provided to this patient excluding any time spent in the performance of separately billed services. This visit was a split-shared visit with the substantive portion of the medical decision making performed by the supervising textile machinery instructor/billing provider. Supervising Physician Co-Signing Physician Notes I have personally performed a history and physical examination on the patient. I have reviewed the advance practitioner's documentation, and I agree with, and take responsibility for the plan of care. 63-year-old male present to the emergency department shortness of breath lower extremity edema. Reports exposure to "bug bomb" preceding events. Treated with 1 dose of IV furosemide with resolution of symptoms. Echocardiogram reveals normal LV systolic function without significant valvular pathology. PE: VSS. Gen: NAD, AAO x3. Heart: Regular rhythm, normal S1-S2. No murmur. Lungs: Diminished left-sided breath sounds. No rales, rhonchi, or wheeze. Extremities: Left lower extremity toe amputation. No edema. Currently patient appears euvolemic/compensated. Symptoms possibly precipitated by exposure to pesticide and/or excessive NSAID intake. Tobacco cessation advised. Risk of chronic NSAID use reviewed. No further inpatient cardiac testing recommended at this time. I spent a total of 25 minutes on the date of service in preparation, delivery, and documentation of the care provided to this patient, excluding any time spent in the performance of separately billed services. History of Present Illness Reason for Consultation: ? CHF Requesting Physician: Dr. Denise Attending Physician: Dr. Sarkar History of Present Illness Mr. Dann C. Kalmbach is a 63-year-old male followed by Dr. Zamudio who presented to the [facility] emergency room on August 30, 2023 with complaints of fluid retention stating "I bloated up like a balloon overnight." patient describes abdominal bloating pushing on the diaphragm causing shortness of breath as well as lower extremity peripheral edema. EKG on presentation revealed normal sinus rhythm at 87 bpm with a left anterior fascicular block, possible old anterior infarct. Chest x-ray showed emphysema with chronic consolidation within the left upper lung zone with associated retraction volume loss within the left hemothorax consistent with creatinine 0.91. Postoperative change. The right lung was described as clear per radiological interpretation. B natruretic peptide was mildly elevated at 344. White blood cell count was normal. Hemoglobin within normal range. In the emergency room the patient received 40 mg of IV Lasix x 1 with I/os recorded's -250 mL overall. This morning, patient feels well and notes the fluid has completely resolved. He notes having chronic back pain and states that he anticipated recurrent back surgery in the [id number] future. He has been taking ibuprofen 600 mg 3 times per day for a couple of months, gabapentin up to 800 mg three times per day for a couple of months, and for the last week or two has also been taking David's Extra Strength Back Pain Relief (Magnesium Salicylate Tetrahydrate 580 mg) The patient carries a history of metastatic small cell lung cancer status post chemotherapy, brain metastasis status post radiation, chronic respiratory failure, past large pericardial effusion opting for pericardiocentesis on December 12, 2019 with subsequent echocardiograms demonstrating recurrence/persistence of pericardial effusion managed medically, history of DVT/pulmonary embolism, type 2 diabetes mellitus with peripheral neuropathy and prior osteomyelitis requiring amputation of 2 toes, hypertension, dyslipidemia, GERD, chronic back pain status post 4 lumbar spine surgical interventions with postlaminectomy syndrome, migraine headaches. Past surgical history includes a prior back surgeries, right knee surgery, 5 prior hernia surgeries, and repair o f a vessel in the right upper extremity remotely. Patient denies history of CAD, PR, CHF, arrhythmia, rheumatic fever, or scarlet fever. Family History: Mother passed with complications from diabetes, chronic alcohol. Father is alive with dementia. 2 brothers are alive without cardiac issues. Social History: Smoker 1/2 to 1 pack/day. No alcohol. No illegal drug use. 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 Originally from [place], [place] Allergies Allergy/AdvReac Type Severity Reaction Status Date / Time clindamycin Allergy Severe SHORTNESS Verified 03/10/23 17:22 OF BREATH dextromethorphan Allergy Severe HARD TO Verified 03/10/23 17:22 BREATHE? guaifenesin Allergy Severe HARD TO Verified 03/10/23 17:22 BREATHE? amoxicillin Allergy Intermediate SHORTNESS Verified 03/10/23 17:22 OF BREATH insulin aspart Allergy Unknown ALLERGIC Verified 03/10/23 17:22 TO PRESERVATIVES IN NOVOLOG - OK WITH REGULAR/NPH sitagliptin Allergy Unknown UNKNOWN RXN Verified 03/10/23 17:22 adhesive AdvReac Intermediate "rips his Verified 03/10/23 17:22 skin off" atorvastatin AdvReac Intermediate diarrhea Verified 03/10/23 17:22 duloxetine AdvReac Intermediate Abdominal Verified 03/10/23 17:22 Pain escitalopram AdvReac Intermediate GI UPSET Verified 03/10/23 17:22 gabapentin AdvReac Intermediate CONSTIPATIO Verified 03/10/23 17:22 N propoxyphene AdvReac Intermediate "DID CRAZY Verified 03/10/23 17:22 THINGS" tizanidine AdvReac Intermediate Diarrhea Verified 03/10/23 17:22 metformin AdvReac Unknown PT STATES Verified 03/10/23 17:22 "DID NOT WORK" Home Medications Medication Instructions Recorded Confirmed Type diclofenac sodium 1 % topical gel 2 g topical QID PRN Pain 03/10/23 08/30/23 History esomeprazole magnesium 40 mg 40 mg PO DAILYBB 03/10/23 08/30/23 History capsule,delayed release rizatriptan 10 mg tablet 10 mg PO DIRECTED PRN Migraine 03/10/23 08/30/23 History Headache rosuvastatin 40 mg tablet 40 mg PO HS 03/10/23 08/30/23 History semaglutide 1 mg/dose (4 mg/3 mL) 1 mg subcut .QWEEK 03/10/23 08/31/23 History subcutaneous pen injector (Ozempic) zolpidem 10 mg tablet 10 mg PO HS Insomnia 03/10/23 08/30/23 History gabapentin 800 mg tablet 800 mg PO TID 08/30/23 08/30/23 History ibuprofen 600 mg tablet 600 mg PO Q8 PRN Back Pain 08/30/23 08/30/23 History trazodone 50 mg tablet 100 mg PO HS 08/30/23 08/30/23 History albuterol sulfate 90 mcg/actuation 2 puff inhalation QID PRN 08/31/23 08/31/23 History aerosol inhaler Shortness Of Breath Or Wheezing magnesium salicylate (David's Extra 580 mg PO Q6H PRN Back Pain 08/31/23 08/31/23 History Strength) [id number] acid-vit 1 tab PO DAILY 08/31/23 08/31/23 History K-lycop 400 mcg-20 mcg-370 mcg tablet (Men's 50 Plus Multivitamin) naproxen sodium 220 mg tablet 220 mg PO Q8H PRN BACK PAIN' 08/31/23 08/31/23 History (Aliza) Patient History Medical History Chronic headaches Following with neuro Hypertension COPD (chronic obstructive pulmonary disease) Breathing stable No oxygen needed Chronic ulcer of left foot Pt denies any current issues- resolved Depression Post traumatic stress disorder Hyperlipidemia Insomnia Pulmonary emboli Was on Lovenox in the past but stopped due to brain hemorrhage Neuropathy To bilateral feet Afib No anticoagulation Pt states a fib was secondary to previous pericardial effusion DVT of upper extremity (deep vein thrombosis) Poor historian - unsure of when dx'ed Osteomyelitis No current issues Partial nontraumatic amputation of left foot Smoking DVT prophylaxis Diabetic peripheral neuropathy Diabetic foot ulcer with osteomyelitis Osteomyelitis of great toe of left foot Skin ulcer of left great toe with necrosis of bone DKA, type 2 Open wound of left great toe Sepsis HLD (hyperlipidemia) HTN (hypertension) COPD (chronic obstructive pulmonary disease) Insomnia Depression with anxiety Pericardial effusion Resolved per May 2020 ECHO per cardio records Follows with cardio Surgical History Post-operative state History of knee surgery Right knee- has ligaments removed- has to wear brace or knee locates History of surgery Pericardiocentesis Nov 2019 History of hernia surgery x4 History of back surgery x4 Social History Smoking Status: Never smoker Tobacco Type: Cigarettes packs per day: 1; Cigarettes Per Day: 1.5packs/days x 40 years (intermittently); Second Hand Exposure: No; Do You Dip or Chew Tobacco: No; Tobacco Cessation Education Requested by Patient: No Hx Alcohol Use: No Hx Substance Use: No Preferred Language: Azeri Communication Ability: Effective Communication Ability Comment: alert and oriented x3 Multiple Wire Sawyer Required: No Beliefs That Will Affect Care: Mosque Mosque Beliefs: congregation marital status: Current Living Situation: Alone Current Living Situation Comment: Currently at [facility] current occupational status: disabled Other Information That Helps Us Care for You: No Feels Safe at Home: Yes Safety Concerns: Feels Safe At This Time Diet: regular caffeine: Yes during the past year weight has: remained stable Physical Activity Frequency: Does not Exercise Gender Identity: Male Assistive Devices: Cane Assistive Devices Comment: cane Review of Systems Review of Systems: Complete Review of Systems is as stated above, negative, or noncontributory. Physical Exam Physical Exam: General: A&Ox3. NAD. HENT: Normocephalic. Atraumatic. Eyes: PER. Conjunctiva pink, sclera clear. Neck: No carotid bruits. No JVD. No HJR. Heart: RRR. ? rub. Lungs: Significantly diminished on the left. Clear on the right. Abdomen: +BS. Soft. Nontender. No masses or organomegaly. Extremities: Right knee brace. No clubbing, cyanosis, or edema. Limited neurological examination is without focal deficits. Pulses: radial=2/4, posterior tibial=2/4. Results & Data Vital Signs (Past 12 Hours) Vital Signs Temp Pulse Pulse Pulse Resp BP BP 08/31/23 08:12 36.5 C 82 19 144/99 H 08/31/23 04:53 83 08/31/23 04:00 08/31/23 04:00 36.6 C 84 20 123/77 08/31/23 03:54 36.6 C 84 20 123/77 08/31/23 03:00 88 21 132/90 08/31/23 01:14 85 08/31/23 01:00 91 H 24 135/90 08/30/23 23:00 90 16 129/86 08/30/23 22:13 08/30/23 21:16 92 H 08/30/23 21:11 95 H 19 126/80 08/30/23 21:08 36.9 C 95 H 19 126/80 Pulse Ox O2 Del Method O2 Flow Rate 08/31/23 08:12 90 Room Air 08/31/23 04:53 08/31/23 04:00 Nasal Cannula 3 08/31/23 04:00 94 Nasal Cannula 3 08/31/23 03:54 94 Nasal Cannula 3 08/31/23 03:00 99 Nasal Cannula 2 08/31/23 01:14 08/31/23 01:00 94 Nasal Cannula 2 08/30/23 23:00 96 Room Air 08/30/23 22:13 94 Room Air 08/30/23 21:16 08/30/23 21:11 91 Room Air 08/30/23 21:08 91 Room Air Laboratory Results Cardiac Enzymes 08/30/23 08/31/23 Range/Units 22:14 05:22 AST 52 H (13-39) U/L Troponin I High Sens 18.9 18.4 (0-20) pg/ml B-Natriuretic Peptide 344 H (0-100) pg/ml Coagulation 08/30/23 08/31/23 Range/Units 22:14 00:33 PT Cancelled 10.9 APTT Cancelled 28 B-Natriuretic Peptide 344 H (0-100) pg/ml CBC 08/30/23 08/31/23 Range/Units 22:14 05:22 WBC 9.98 8.51 (4.8-10.8) K/ul RBC 4.96 4.87 (4.70-6.10) M/uL Hgb 15.4 15.3 (14.0-18.0) g/dl Hct 46.9 45.7 (42.0-52.0) % Plt Count 196 206 (130-400) K/uL Neut # (Auto) 7.83 H 6.19 (1.40-6.50) K/uL Lymph # (Auto) 1.02 L 1.13 L (1.20-3.40) K/uL [place] # (Auto) 0.82 H 0.89 H (0.11-0.59) K/uL Eos # (Auto) 0.23 0.23 (0.00-0.50) K/uL Baso # (Auto) 0.04 0.04 (0.00-0.20) K/uL Comprehensive Metabolic Panel 08/30/23 08/31/23 Range/Units 22:14 05:22 Sodium 143 140 (136-145) mmol/L Potassium 4.3 4.1 (3.5-5.1) mmol/L Chloride 109 H 103 (98-107) mmol/L Carbon Dioxide 32 34 H (21-32) mmol/L BUN 16 15 (6-23) mg/dl Creatinine 0.91 0.89 (0.6-1.4) mg/dl Glucose 128 H 108 H (70-99(Fasting)) mg/dl Calcium 9.7 9.2 (8.6-10.3) mg/dl AST 52 H (13-39) U/L ALT 16 (7-52) U/L Alkaline Phosphatase 48 (34-104) U/L Total Protein 6.9 (6.0-8.3) gm/dl Albumin 3.8 (3.4-5.0) gm/dl Intake and Output 08/30/23 08/31/23 08/31/23 22:59 06:59 14:59 Output Total 250 / 250 Balance -250 / -250 Output: Other 250 / 250 Other: Weight 129 kg 114.5 kg Weight Measurement Method Built in [facility] Built in [facility] Diagnostic Findings Telemetry: Sinus rhythm in the 80's and 90's
--- NOTE | 2023-08-31 09:26 | CT Scan Report ---
Exam(s): CTA CHEST IV Amt: 118 ml optiray 320 EXAM: CT Angiography Chest With Intravenous Contrast CLINICAL HISTORY: PE. TECHNIQUE: Axial computed tomographic angiography images of the chest with intravenous contrast. MIPS images were created and reviewed. CTDI is 74. 26 mGy and DLP is 1016.95 mGy-cm. Automated exposure control was utilized for the study. A dose lowering technique was utilized adhering to the principles of ALARA. MIP reconstructed images were created and reviewed. COMPARISON: CTA chest 05/24/2020. FINDINGS: Pulmonary arteries: Prominent pulmonary arteries is concerning for pulmonary hypertension. No pulmonary embolus. Aorta: No acute findings. No thoracic aortic aneurysm. Lungs: Interseptal thickening is concerning for pulmonary edema. Emphysema is noted. Left upper lobe atelectasis or pneumonia. No mass. Pleural space: Trace bilateral pleural effusions. No pneumothorax. Heart: Unremarkable. No cardiomegaly. No significant pericardial effusion. No evidence of RV dysfunction. Mediastinum: Prominent mediastinal lymphadenopathy. Bones/joints: There are degenerative changes of the spine. No acute fracture. No dislocation. Soft tissues: Unremarkable. Lymph nodes: See above. IMPRESSION: 1. No pulmonary embolus. 2. Interseptal thickening is concerning for pulmonary edema. 3. Left upper lobe atelectasis or pneumonia. 4. Trace bilateral pleural effusions. 5. Emphysema is noted. Emphysema is an independent risk factor for lung cancer. Recommend evaluation for low dose lung cancer screening protocol. 6. Prominent pulmonary arteries is concerning for pulmonary hypertension. 7. Prominent mediastinal lymphadenopathy. This could be infectious, inflammatory or neoplastic. Electronically signed by: Naila Hurd MD 08/31/23 09:25 AM
[2023-08-31] MEDS: RIZATRIPTAN BENZOATE 10 MG TAB PO PRN (12:14)
[2023-08-31] MEDS: ALBUT/IPRATROP 3MG/0.5MG NEB 3 ML VIAL NEB PRN (12:42)
--- NOTE | 2023-08-31 14:43 | Hospitalist Progress Note ---
Date of Service August 31, 2023 Assessment & Plan (1) CHF (congestive heart failure): Plan: 63-year-old male with past med history significant for diabetes, hyperlipidemia, COPD, history of small cell lung cancer s/p chemoradiation, brain metastasis s/p radiation, hypertension, history of A-fib, GERD, amputation of the toe of the right foot, chronic back pain, spinal stenosis, postlaminectomy syndrome, tobacco use, anxiety and depression presents with edema of lower extremity and feeling of bloating and shortness of breath. Patient states in the last 2 days started feeling bloating and also developed edema in the extremity extremities. Because of abdominal distension states its pushing on his lungs and is feeling short of breath. In the ER noted to have orthopnea. Denies any chest pain. No headache or dizziness. Vision is okay. No runny nose or sore throat. Currently no cough. Appetite is okay. No difficulty swallowing. No nausea. Normal bowel and bladder movements. Currently resting comfortably and hemodynamically stable. Acute CHF with preserved EF Admitted with feeling of bloating And lower Extremity edema with orthopnea Noted to have mild elevation of BNP Received a dose of IV Lasix in the ER Has been feeling much better since this morning CT of the chest did show pulmonary congestion and emphysema Appreciate cardiology input and recommendation Echo of the heart noted History of small cell lung cancer s/p chemoradiation history of brain metastasis with 2.5 cm right cerebellar hemispheric mass which was hemorrhagic in nature received Decadron and also completed brain radiation treatment. Seems in remission No acute issues now-will have usual follow-up with heme-onc on discharge History of PE and DVT Anticoagulation was stopped when he developed hemorrhagic brain metastasis history of pericardial effusion status post pericardiocentesis Not on any more anticoagulation Other significant medical conditions remained stable as below: hyperlipidemia on statin diabetes hold Ozempic sliding scale follow HbA1c levels GERD omeprazole chronic back pain multiple back surgeries pain control PT OT when stable DVT prophylaxis Lovenox for now disposition telemetry full code Admission and Anticipated Discharge Date Admission Date: August 31, 2023 Subjective 08/31/2023 The patient was seen and examined in telemetry unit He has been feeling much better since the administration of Lasix Denies any more chest pain, pressure, shortness of breath Has been saturating normally on room air He wants to go home today Review of Systems Review of Systems: All systems reviewed and are unremarkable except as noted below Physical Exam Physical Exam: Lying in bed without any acute distress Constitutional: well developed and well nourished; not ill appearing Eyes: PERRL, conjunctivae normal, anicteric sclerae ENMT: external ear and nose normal, oropharynx normal Neck: trachea midline, no thyromegaly Respiratory: no respiratory distress Auscultation: + diminished lung sounds and + crackles (Minimal crackles at the bases) Cardiovascular: Rate/Rhythm: regular rate and regular rhythm; not tachycardic Heart Sounds: normal S1 and normal S2; no murmur Extremities: no edema Gastrointestinal (Abdomen): Inspection/Auscultation: normal bowel sounds; abdomen not distended Percussion/Palpation: abdomen soft; abdomen nontender Musculoskeletal: No acute arthritis involving any of the joints Neurologic: normal touch/pain/proprioception and moves all extremities; no focal motor deficits Psychiatric: A+Ox3, euthymic affect Lymphatic: no cervical or axillary lymphadenopathy Results & Data Results & Data Vital Signs (Past 12 Hours) Vital Signs Temp Pulse Pulse Pulse Resp BP Pulse Ox 08/31/23 12:45 79 18 96 08/31/23 11:37 36.5 C 80 19 125/80 91 08/31/23 08:12 36.5 C 82 19 144/99 H 90 08/31/23 04:53 83 08/31/23 04:00 08/31/23 04:00 36.6 C 84 20 123/77 94 08/31/23 03:54 36.6 C 84 20 123/77 94 08/31/23 03:00 88 21 132/90 99 O2 Del Method O2 Flow Rate 08/31/23 12:45 Room Air 08/31/23 11:37 Room Air 08/31/23 08:12 Room Air 08/31/23 04:53 08/31/23 04:00 Nasal Cannula 3 08/31/23 04:00 Nasal Cannula 3 08/31/23 03:54 Nasal Cannula 3 08/31/23 03:00 Nasal Cannula 2 Laboratory Results Short CBC 08/30/23 08/31/23 Range/Units 22:14 05:22 WBC 9.98 8.51 (4.8-10.8) K/ul Hgb 15.4 15.3 (14.0-18.0) g/dl Hct 46.9 45.7 (42.0-52.0) % Plt Count 196 206 (130-400) K/uL BMP 08/30/23 08/31/23 22:14 05:22 Sodium 143 140 Potassium 4.3 4.1 Chloride 109 H 103 Carbon Dioxide 32 34 H BUN 16 15 Creatinine 0.91 0.89 Glucose 128 H 108 H Calcium 9.7 9.2 Liver Function 08/30/23 Range/Units 22:14 Total Bilirubin 0.2 (0.2-1.0) mg/dl AST 52 H (13-39) U/L ALT 16 (7-52) U/L Alkaline Phosphatase 48 (34-104) U/L Albumin 3.8 (3.4-5.0) gm/dl Urine 08/31/23 Range/Units 01:13 Urine Color Yellow Urine Appearance Turbid A (Clear) Urine pH 7.0 (4.5-7.5) Ur Specific [place] 1.018 (1.000-1.030) Urine Protein 2+ H (Negative) Urine Glucose (UA) Negative (Negative) Medications Administered Current Inpatient Medications Acetaminophen (Acetaminophen 325 Mg Tab) 650 mg PO Q4H PRN PRN Reason: Pain or Fever Stop: 09/30/23 03:53 Last Admin: 08/31/23 11:26 Dose: 650 mg Albuterol (Albuterol Hfa 8 Gm Inhaler) 2 puffs INH QID PRN PRN Reason: Shortness Of Breath Or Wheezin Stop: 09/30/23 03:53 Albuterol (Albut/Ipratrop 3mg/0.5mg Neb 3 Ml Vial) 3 ml NEB Q6R PRN; Protocol PRN Reason: Shortness Of Breath Or Wheezing Stop: 09/30/23 03:53 Last Admin: 08/31/23 12:42 Dose: 3 ml Dextrose (Dextrose 50% 50 Ml Syringe) 25 - 50 ml IV UD PRN; Protocol PRN Reason: Hypoglycemia Protocol Stop: 09/30/23 03:53 Diclofenac Sodium (Diclofenac Sod 1% Gel 100 Gm Tube) 2 gm EXT QID PRN; Protocol PRN Reason: Pain Stop: 09/30/23 03:53 Enoxaparin Sodium (Enoxaparin Inj 40 Mg/0.4 Ml Syr) 40 mg SQ Q24H LUCIANA Stop: 09/30/23 08:59 Last Admin: 08/31/23 08:00 Dose: 40 mg Gabapentin (Gabapentin 800 Mg Tab) 800 mg PO TID@0900,1200,2100 [facility] Stop: 09/30/23 08:59 Last Admin: 08/31/23 11:26 Dose: 800 mg Glucagon (Glucagon For Inj 1 Mg Vial) 1 mg SQ UD PRN; Protocol PRN Reason: Hypoglycemia Protocol Stop: 09/30/23 03:53 Glucose (Glucose 40% Gel 15 Gm Tube) 15 - 30 gm PO UD PRN; Protocol PRN Reason: Hypoglycemia Protocol Stop: 09/30/23 03:53 Glucose (Glucose 10 Tab/Tube) 4 - 8 tab PO UD PRN; Protocol PRN Reason: Hypoglycemia Treatment Stop: 09/30/23 03:53 Insulin Aspart (Insulin Aspart Per Unit Charge) 0 units SC [facility] Stop: 09/30/23 07:29 Last Admin: 08/31/23 11:28 Dose: Not Given Miscellaneous (Carbohydrates For Hypoglycemia ) 15 - 30 gm PO UD PRN PRN Reason: Hypoglycemia Protocol Stop: 09/30/23 03:53 Multivitamins/Minerals (Cerovite Adv Formula Tab) 1 tab PO DAILY [facility] Stop: 09/30/23 08:59 Last Admin: 08/31/23 08:00 Dose: 1 tab Nitroglycerin (Nitroglycerin Sl 0.4 Mg/Tab Tab) 0.4 mg SL Q5M PRN PRN Reason: Chest Pain Stop: 09/30/23 03:53 Oxycodone HCl (Oxycodone Hcl Ir 5 Mg Tab (Immediate Release)) 5 mg PO Q6H PRN PRN Reason: Mod-Sev Pain (Scale 4-10) Stop: 09/14/23 03:53 Last Admin: 08/31/23 08:01 Dose: 5 mg Pantoprazole Sodium (Pantoprazole 40 Mg Tab) 40 mg PO DAILYBB [facility] Stop: 09/30/23 06:29 Last Admin: 08/31/23 06:06 Dose: 40 mg Polyethylene Glycol (Polyethylene (Miralax) 17 Gm Pack) 17 gm PO DAILY PRN PRN Reason: Constipation Stop: 09/30/23 03:53 Rizatriptan Benzoate (Rizatriptan Benzoate 10 Mg Tab) 10 mg PO UD PRN PRN Reason: Migraine Headache Stop: 09/30/23 03:53 Last Admin: 08/31/23 12:14 Dose: 10 mg Rosuvastatin Calcium (Rosuvastatin Calcium 20 Mg Tab) 40 mg PO [facility] Stop: 09/30/23 20:59 Rosuvastatin Calcium (Rosuvastatin Calcium 10 Mg Tab) 40 mg PO [facility] Stop: 10/01/23 20:59 Trazodone HCl (Trazodone Hcl 100 Mg Tab) 100 mg PO [facility] Stop: 09/30/23 20:59 Zolpidem Tartrate (Zolpidem Tartrate 5 Mg Tab) 10 mg PO [facility] Stop: 09/30/23 20:59
--- OUTSIDE RECORDS SUMMARY | 2023-08-31 20:54 | External Medical Summary | Summary of Care ---
Author Name Unknown Organization [facility] Address [address] [place] [address] Phone [phone] Care Team Providers Care Joint Cutter Name Role Phone Lizz BUI MD, Efraín León Primary Care Provider [phone] Reason for Visit * Reason Onset Date Comments No Show 08/27/2023 Encounter Details Date Type Department Care Team (Late st Contact Info) Description 08/27/2023 Telephone Hematology/Oncology [facility] [address] [place] [address] Janna Muñoz CRNP [address] [place] [address] No Show Allergies Active Allergy Reactions Criticality Noted Date Comments Adhesive Tape 05/23/2020 Other reaction(s): "rips his skin off" Amoxicillin 06/24/2008 Atorvastatin 08/02/2020 Clindamycin Hcl 02/15/2010 Swelling, and feels like apple in throat Duloxetine Hcl Abdominal pain 04/11/2010 "I forget." Propoxyphene N-Acetaminophen 06/24/2008 Dextromethorphan 08/02/2020 Escitalopram 08/02/2020 Insulin Aspart 08/02/2020 Metformin 08/02/2020 Guaifenesin Er Other (Please comment) 01/30/2017 Patient said he had trouble breathing when he took this. Propoxyphene 08/02/2020 Sitagliptin 08/02/2020 Tizanidine Diarrhea Medium 07/23/2020 documented as of this encounter (statuses as of 08/29/2023) Medications Medication Sig Dispensed Refills Start Date End Date Status Rosuvastatin Calcium 40 MG Oral Tablet (Crestor)Indications: Dyslipidemia, goal LDL below 100 Take 1 Tablet by mouth at bedtime. 90 Tablet 1 01/12/2023 Active LancetsIndications:Di abetic polyneuropathy associated with type 2 diabetes mellitus (HCC) Use as directed 5 times daily 200 Each 11 04/07/2023 Active OneTouch Verio w/Device KitIndications:Diabet ic polyneuropathy associated with type 2 diabetes mellitus (HCC) Use as directed E11.9 1 Kit 04/09/2023 Active OneTouch Verio In Vitro Strip (Glucose Blood)Indications:Alondra betic polyneuropathy associated with type 2 diabetes mellitus (HCC) Test five times daily for use with multiple daily insulin injections-befor e all meals, snacks, exercise, and one to two times during the night. Dx: E11.9 200 Strip 11 04/09/2023 Active OneTouch UltraSoft LancetsIndications:Di abetic polyneuropathy associated with type 2 diabetes mellitus (HCC) Use as directed 5 times daily 200 Each 11 04/09/2023 Active Accu-Chek Guide w/Device Kit Use as directed. 1 Kit 04/10/2023 Active Accu-Chek Guide In Vitro Strip (Glucose Blood) Test five times daily for use with multiple daily insulin injections-befor e all meals, snacks, exercise, and one to two times during the night. Dx: E11.9 100 Strip 3 04/10/2023 Active LORazepam 0.5 MG Oral Tablet (Ativan) Take 1 Tablet by mouth every 8 hours as needed for Anxiety. 21 Tablet 05/15/2023 Active Gabapentin 800 MG Oral Tablet (Neurontin) Take 1 Tablet by mouth in the morning and 1 Tablet at noon and 1 Tablet before bedtime. 90 Tablet 5 06/01/2023 Active Ferrous Sulfate 325 (65 Fe) MG Oral Tablet (Feosol) Take 1 Tablet by mouth in the morning and 1 Tablet before bedtime. 60 Tablet 11 06/28/2023 Active Ozempic (1 MG/DOSE) 4 MG/3ML Subcutaneous Solution Pen-injector (Semaglutide (1 MG/DOSE))Indications: Type 2 diabetes mellitus with hemoglobin A1c goal of less than 7.5% (HCC) Inject 1 mg under the skin once a week. 3 mL 6 07/03/2023 Active ProAir HFA 108 (90 Base) MCG/ACT Inhalation Aerosol Solution Inhale 2 Puffs by mouth in the morning and 2 Puffs at noon and 2 Puffs in the evening and 2 Puffs before bedtime. 8.5 g 1 07/10/2023 Active Esomeprazole Magnesium 40 MG Oral Capsule Delayed Release (NexIUM) Take 1 Capsule by mouth in the morning. 1 hour before the first meal of the day. 30 Capsule 11 07/11/2023 Active Diclofenac Sodium 1 % External Gel (Voltaren) Apply topically to affected area 4 times a day. 2 grams/ dose Apply to knee as needed for pain 100 g 1 07/13/2023 Active traZODone HCl 50 MG Oral Tablet (Desyrel) 2 tablets at bedtime 60 Tablet 2 07/27/2023 Active Ibuprofen 600 MG Oral Tablet (Motrin) Take 1 Tablet by mouth every 8 hours as needed (Headache). 24 Tablet 3 08/02/2023 Active Zolpidem Tartrate 10 MG Oral Tablet (Ambien) Take 1 Tablet by mouth at bedtime as needed for Sleep. 30 Tablet 08/07/2023 Active Erythromycin 5 MG/GM Ophthalmic Ointment Instill 0.25 Inches into both eyes at bedtime. 3.5 g 6 08/16/2023 Active One-A-Day Mens 50+ Oral Tablet Take by mouth. Active NATURAL SUPPLEMENT Take by mouth daily. Focus Factor Active Rizatriptan Benzoate 10 MG Oral Tablet (Maxalt) TAKE 1 TABLET BY MOUTH NEEDED FOR MIGRAINE. CAN REPEAT DOSE IN 1 HOUR IF NEEDED. MAXIMUM DOSE OF 20mg PER DAY. 10 Tablet 3 08/23/2023 Active documented as of this encounter (statuses as of 08/29/2023) Active Problems Problem Noted Date Diagnosed Date Type 2 diabetes mellitus wit h hemoglobin A1c goal of less than 7.5% 10/11/2022 Amputation of toe of right foot 06/23/2022 Atrial fibrillation 07/13/2021 Chronic back pain 11/22/2020 Laceration of toe 11/22/2020 Tenosynovitis of left foot 11/22/2020 Major depressive disorder, recurrent episode, mo derate 01/09/2020 Brain metastasis 12/28/2017 Insulin dependent type 2 diabetes mellitus 11/20 Anxiety and depression 08/31/2017 COPD, severity to be determined 08/28/2017 Small cell lung cancer 09/23/2016 Overview: Pancoast tumor. Treated with chemotherapy and radiation (7000 Gy). Brain mets 2018, treated with whole brain radiation (3000 Gy) HTN, goal below 140/90 10/02/2014 Postlaminectomy syndrome 03/21/2012 MEDICATION USE AGREEMENT 12/13/2009 Tobacco use disorder 09/07/2009 Diabetic polyneuropathy 09/07/2009 DYSLIPIDEMIA, GOAL LDL BELOW 100 03/10/2009 Overview: Per Lipid Taxonomy. Esophageal reflux 06/24/2008 Spinal stenosis of lumbar re gion without neurogenic claudication 06/24/2008 documented as of this encounter (statuses as of 08/29/2023) Resolved Problems Problem Noted Date Diagnosed Date Resolved Date Deep vein thrombosis (DVT) of upper extremity 11/23/19 21 10/11/2022 Body mass index (BMI) of 40. 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 Severe obesity with body mas s index (BMI) of 35.0 to 39.9 with serious comorbidity 09/06/2009 Overview: Per Obesity Protocol, #19 ICD-10 update of inactive diagnosis HTN, GOAL BELOW 130/80 04/21/200911/15 Overview: Per HTN Taxonomy. Type 2 diabetes mellitus wit h hemoglobin A1c goal of less than 7.0% 01/21/2009 08/28/2017 Overview: Per Diabetes Taxonomy. ICD-10 update of inactive term Type 2 diabetes mellitus wit h hemoglobin A1c goal of less than 7.0% 06/24/2008 01/21/2009 Overview: Per Diabetes Taxonomy. ICD-10 update of inactive term HTN, goal below 140/90 06/24/200804/21 Overview: Per HTN Taxonomy. Mixed dyslipidemia 06/24/200803/10/ 9 Overview: Per Lipid Taxonomy. documented as of this encounter (statuses as of 08/29/2023) Immunizations Name Administration Dates Next Due COVID-19 mRNA, LNP-s, No Pre serve, 2-Dose Series (Moderna) 06/16/2020,05/19/2020 Hepatitis B, 20+ yrs 06/02/2014,01/06/2014,12/03 Pneumococcal Conjugate Vacc, 13 Valent (Prevnar) 01/09/2020 Pneumococcal Polysaccharide PPV23 (Pneumovax) 07/13/2021,12/30/2008 Seasonal Influenza, PF, 6 M & above, IM , (FluLaval or Fluzone) 12/29/2022,06/28/2022,12/27/2020,01/08 Seasonal Influenza, Split, I IV3, With Preserve, Inj 12/30/2008 TDAP, Age 7 and older, IM (Adacel) 07/12/2022, Varicella Zoster Vaccine (Adult) 12/03/2013 Zoster Vaccine Recombinant (Shingrix) 06/28/2022 documented as of this encounter Social History Tobacco Use Types Packs/Day Years Used Date Smoking Tobacco: Former Cigarettes 0.3 33 0 09/20/1983 - 09/19/2016 Smokeless Tobacco: Never Alcohol Use Standard Drinks/Week Comments No 0 (1 standard drink = 0.6 oz pur e alcohol) PHQ-2 Answer Date Recorded PHQ Adult Total Score 15 06/16/2020 Hunger Vital Sign Answer Date Recorded Worried About Running Out of Food in the Last Ye ar Never true 10/23/2019 Ran Out of Food in the Last Year Never true 10/23/2019 Sex and Gender Information Value Date Recorded Sex Assigned at Not on file Gender Identity Not on file Sexual Orientation Not on file Job Start Date Occupation Industry Not on file Not on file Not on file documented as of this encounter Miscellaneous Notes * Telephone Encounter - Airam Cain OSA - 08/28/2023 8:16 AM EDT Called now I am unable to leave message. * Telephone Encounter - Airam Brody OSA - 08/27/2023 10:36 AM EDT Lmom for pt to call back * Telephone Encounter - Brenda Richards MED ASSIST - 08/27/2023 10:24 AM EDT Please contact patient to reschedule appt with Janna Toni that he did not show for. Thank you. documented in this encounter Plan of Treatment Upcoming Encounters Date Type Department Care Team (Late st Contact Info) Description 11/22/2023 1:00 PM EDT Office Visit Ophthalmology, [facility] [address] [facility] [place] [address] Francis Turner, DO [address] [place] [address] Scheduled Procedures Name Priority Associated Diagnoses Date/Ti me COLONOSCOPY FLEXIBLE PROXIMAL DIAGNOSTIC Recall History of colon polyps Health Maintenance Due Date Last Done Comments Alpha-1 Antitrypsin 1980 Cologuard 08/02/2007 Fecal Occult Blood Test 08/02/2007 Sigmoidoscopy 08/02/2007 *COPD SEVERITY VERIFIED BY PFT 08/31/2017 Colonoscopy 08/21/2019 08/20/2014, 08/20/2014 Colorectal Cancer Screening 08/21/2019 Depression, Most Recent Score >= 10 (will fire each visit until score < 10) 06/17/2020 06/16/2020 COVID-19 Vaccine (3 - Moderna risk series) 07/14/2020 06/16/2020, 05/19/2020 Zoster Vaccines (2 of 2) 08/23/2022 06/28/2022, 11/24 Albumin/Creatinine Ratio 07/12/2023 023, 03/13/2019, 01/03/2018, Additional history exists Diabetic Eye Exam 12/30/2023 12/29/2022, , 02/25/2018, Additional history exists Diabetic Foot Exam 12/30/2023 12/29/2022, 0 06/16/2020, 09/18/2018, Additional history exists HbA1c 01/15/2024 07/16/2023, 1008/2022, 06/28/2022, Additional history exists GFR 03/14/2024 03/14/2023, 01/24, 12/29/2022, Additional history exists O2 ASSESSMENT COMPLETED IN PAST YEAR FOR COPD 07/15/2024 07/16/2023 Pneumococcal Vaccine: Pediatrics (0 to 5 Years) and At-Risk Patients (6 to 64 Years) (4 of 4 - PPSV23 or PCV20) 08/02/2027 07/13/2021, 01/09/2020, 12/30/2008 Lipid Panel 02/08/2028 02/07/2023, 04/0 07/2022, 03/10/2021, Additional history exists DTaP,Tdap,and Td Vaccines (3 - Td or Tdap) 07/12/2032 07/12/2022, 05/11/2008 Hepatitis B Completed 06/02/2014, 12/24, 12/03/2013 RETIRED - COLONOSCOPY-EVERY 5 YRS AGES 18-100 Discontinued 08/20/2014, 08/20/2014 Influenza Vaccine (FLU shot) Completed 12/29/2022, 06/28/2022, 12/27/2020, Additional history exists GARDASIL-HPV IMMUNIZATION SERIES Aged Out No longer eligible based on patient's age to complete this topic MENINGOCOCCAL (MENACTRA/MENVEO) Aged Out No longer eligible based on patient's age to complete this topic documented as of this encounter Medical Devices Not on filedocumented as of this encounter Advance Directives Documents on File Type Date Recorded Patient Veterinary Attendant Expl anation Advance Directives and Living Will 11/03/2008 ADVANCE DIRECTIVE / LIVING WILL Advance Directives and Living Will 11/03/2008 ADVANCE DIRECTIVE / LIVING WILL Power of Java Developer Architect 11/03/2008 POWER OF A TTORNEY Power of Java Developer Architect 11/03/2008 POWER OF A TTORNEY Power of Java Developer Architect 11/03/2008 POWER OF A TTORNEY Care Teams Joint Cutter Relationship Specialty Start Date End Date Efraín Zamudio III, MD [address] [place] [address] PCP - General Family Medicine 06/24/21 documented as of this encounter
--- OUTSIDE RECORDS SUMMARY | 2023-08-31 20:54 | External Medical Summary | Summary of Care ---
Author Name Unknown Organization [facility] Address [address] [place] [address] Phone [phone] Care Team Providers Care Bobbin Disker Name Role Phone Lizz BUI MD, Efraín León Primary Care Provider [phone] Reason for Visit * Reason Onset Date Comments Medication Question 08/22/2023 Encounter Details Date Type Department Care Team (Late st Contact Info) Description 08/22/2023 Telephone Family Practice [facility] [address] [facility] [place] [address] Efraín Zamudio III, MD [address] [place] [address] Medication Question Allergies Active Allergy Reactions Criticality Noted Date [...] as of this encounter (statuses as of 08/27/2023) Medications Medication Sig Dispensed Refills Start Date End Date Status Rosuvastatin Calcium 40 MG Oral Tablet (Crestor)Indications :Dyslipidemia, goal LDL below 100 Take 1 Tablet by mouth at bedtime. 90 Tablet 1 01/12/2023 Active LancetsIndications:D iabetic polyneuropathy associated with type 2 diabetes mellitus (HCC) Use as directed 5 times daily 200 Each 11 04/07/2023 Active OneTouch Verio w/Device KitIndications:Diabe tic polyneuropathy associated with type 2 diabetes mellitus (HCC) Use as directed E11.9 1 Kit 04/09/2023 Active OneTouch Verio In Vitro Strip (Glucose Blood)Indications:Di abetic polyneuropathy associated with type 2 diabetes mellitus (HCC) Test five times daily for use with multiple daily insulin injections-bef ore all meals, snacks, exercise, and one to two times during the night. Dx: E11.9 200 Strip 11 04/09/2023 Active OneTouch UltraSoft LancetsIndications:D iabetic polyneuropathy associated with type 2 diabetes mellitus (HCC) Use as directed 5 times daily 200 Each 04/09/2023 Active Accu-Chek Guide w/Device Kit Use as directed. 1 Kit 04/10/2023 Active Accu-Chek Guide In Vitro Strip (Glucose Blood) Test five times daily for use with multiple daily insulin injections-bef ore all meals, snacks, exercise, and one to [...] 4 MG/3ML Subcutaneous Solution Pen-injector (Semaglutide (1 MG/DOSE))Indications :Type 2 diabetes mellitus with hemoglobin A1c goal [...] at bedtime. 3.5 g 6 08/16/2023 Active Silver sulfADIAZINE 1 % External Cream (Silvadene)Indicatio ns:Wound of left foot,Osteomyelitis of toe (HCC) Apply topically to affected area daily. Apply to foot. 50 g 1 09/13/2022 4 Discontinue d(End of Procedure) Gauze Pads 4"X4" PadIndications:Wound of left foot,Osteomyelitis of toe (HCC) Apply to the foot daily with silvadene cream. 100 Each 5 09/13/2022 4 Discontinue d(End of Procedure) Rizatriptan Benzoate 10 MG Oral Tablet (Maxalt) TAKE 1 TABLET BY MOUTH NEEDED FOR MIGRAINE. CAN REPEAT DOSE IN 1 HOUR IF NEEDED. MAXIMUM DOSE OF 20mg PER DAY. 10 Tablet 02/13/2023 4 Discontinue d(Refill) Gabapentin 800 MG Oral Tablet (Neurontin) Take 1 Tablet by mouth in the morning and 1 Tablet at noon and 1 Tablet before bedtime. 90 Tablet 4 06/01/2023 4 Discontinue d(Medicatio n List Clean Up) Docusate Sodium 100 MG Oral Capsule (Colace) Take 1 Capsule by mouth 2 times a day as needed for Constipation. 60 Capsule 11 07/03/2023 4 Discontinue d(Medicatio n List Clean Up) documented as of this encounter (statuses as of 08/27/2023) Active Problems Problem Noted Date Diagnosed Date [...] chemotherapy and radiation (7000 Gy). Brain mets 2017, treated with whole brain radiation (3000 Gy) HTN, goal below 140/90 10/02/2014 Postlaminectomy syndrome 03/21/2012 MEDICATION USE AGREEMENT 12/13/2009 Tobacco use disorder 09/07/2009 Diabetic polyneuropathy 09/07/2009 DYSLIPIDEMIA, GOAL LDL BELOW 100 03/10/2009 Overview: Per Lipid Taxonomy. Esophageal reflux 06/24/2008 Spinal stenosis of lumbar re gion without neurogenic claudication 06/24/2008 documented as of this encounter (statuses as of 08/27/2023) Resolved Problems Problem Noted Date Diagnosed Date [...] 06/24/200804/21 Overview: Per HTN Taxonomy. Mixed dyslipidemia 06/24/2008 Overview: Per Lipid Taxonomy. documented as of this encounter (statuses as of 08/27/2023) Immunizations Name Administration Dates Next Due COVID-19 [...] encounter Miscellaneous Notes * Telephone Encounter - Caitie Schafer PA-C - 08/27/2023 6:40 PM EDT Had decreased the dose to see if patient would note a change of muscle aches. * Telephone Encounter - BridyRonda PHARM Tech - 08/22/2023 1:30 PM EDT Eddie Balbuena calling to verify the correct dose for Rosuvastatin. Pt stated with pharmacy that he has been taking 2 tablets daily. Please advise. Thank you, Ronda Mroales, Computer Programming Professor [facility] ([facility]) (Formerly [facility]) 08/22/2023,1:31 PM documented in this encounter Plan of Treatment Upcoming Encounters Date Type Department Care Team (Late st Contact Info) Description 11/22/2023 1:00 PM EDT Office Visit Ophthalmology, [facility] [address] [facility] [place] [address] Francis Turner, DO [address] [facility] [place] [address] Scheduled Procedures Name Priority Associated Diagnoses Date/Ti [...] 2) 08/23/2022 06/28/2022, 11/24 Albumin/Creatinine Ratio 07/12/2023 04/2 023, 03/13/2019, 01/03/2018, Additional history exists Diabetic [...] 07/13/2021, 01/09/2020, 12/30/2008 Lipid Panel 02/08/2028 02/07/2023, 07/2022, 03/10/2021, Additional history exists DTaP,Tdap,and Td [...] Documents on File Type Date Recorded Patient Communications Marketing Intern Expl anation Advance Directives and Living Will 11/03/2008 ADVANCE DIRECTIVE / LIVING WILL Advance Directives and Living Will 11/03/2008 ADVANCE DIRECTIVE / LIVING WILL Power of Pantograph Setter 11/03/2008 POWER OF A TTORNEY Power of Pantograph Setter 11/03/2008 POWER OF A TTORNEY Power of Pantograph Setter 11/03/2008 POWER OF A TTORNEY Care Teams Bobbin Disker Relationship Specialty Start Date End Date Obion III, Efraín León MD [address] [facility] [place] [address] PCP - General Family Medicine 06/24/21 documented as of this encounter
--- OUTSIDE RECORDS SUMMARY | 2023-08-31 20:54 | External Medical Summary | Summary of Care ---
Author Name Unknown Organization [facility] Address [address] [place] [address] Phone [phone] Care Team Providers Care Delivery Crew Member Name Role Phone Lizz BUI MD, Efraín León Primary Care Provider [phone] Reason for Visit * Reason Onset Date Comments Advice 08/25/2023 Encounter Details Date Type Department Care Team (Late st Contact Info) Description 08/25/2023 Telephone Family Practice [facility] [address] [facility] [place] [address] Efraín Zamudio III, MD [address] [place] [address] Advice Allergies Active Allergy Reactions Criticality Noted Date [...] embolism 03/12/2017 2 Poor venous access 11/21/2016 Encounter for antineoplastic chemotherapy 10/10/2016 11/22/2020 Small [...] Overview: Per HTN Taxonomy. Mixed dyslipidemia 06/24/2008 12//200 9 Overview: Per Lipid Taxonomy. documented as [...] encounter Miscellaneous Notes * Telephone Encounter - Merle Mckeon OSA - 08/29/2023 12:43 PM EDT I have refaxed the referral to [facility] spine surgery and out urgency on it * Telephone Encounter - Jeanna Feldman OSA - 08/29/2023 11:23 AM EDT Patient is calling to speak with the office, he can barely walk and needs to know about getting an appt with ortho at [facility]. He is having a lot of pain and needs this appt FLORIAN. THe referral was put in May and he is still waiting. Please call him back Complaint message sent also to community health nurse supervisor * Telephone Encounter - Gail Guy OSA - 08/28/2023 7:29 AM EDT Pt asking if the office has heard anything concerning pt being scheduled for back surgery * Telephone Encounter - Tatiana Gavin OSA - 08/25/2023 12:53 PM EDT Patient inquiring if provider can expedite back surgery. Saw Caitie Schafer on 08/23/2023 and says he brought in packets from [facility] with previous medical records. documented in this encounter Plan of Treatment Upcoming Encounters Date Type Department Care Team (Late st Contact Info) Description 11/22/2023 1:00 PM EDT Office Visit Ophthalmology, [facility] [address] [facility] [place] [address] Francis Turner, DO [address] [facility] [place] [address] Scheduled Procedures Name Priority Associated Diagnoses [...] of 2) 08/23/2022 06/28/2022, 11/24 Albumin/Creatinine Ratio 07/12/202307/11/2 023, 03/13/2019, 01/03/2018, Additional history exists Diabetic Eye Exam 12/30/2023 12/29/2022, , 02/25/2018, Additional history exists Diabetic Foot Exam 12/30/2023 12/29/2022, 0 06/16/2020, 09/18/2018, Additional history exists HbA1c 01/15/2024 07/16/2023, 10/0 08/2022, 06/28/2022, Additional history exists GFR 03/14/2024 03/14/2023, 01/24, 12/29/2022, Additional history exists O2 ASSESSMENT COMPLETED IN PAST YEAR FOR COPD 07/15/2024 07/16/2023 Pneumococcal Vaccine: Pediatrics (0 to 5 Years) and At-Risk Patients (6 to 64 Years) (4 of 4 - PPSV23 or PCV20) 08/02/2027 07/13/2021, 01/09/2020, 12/30/2008 Lipid Panel 02/08/2028 02/07/2023, 04/07/2022, 03/10/2021, Additional history exists DTaP,Tdap,and Td Vaccines [...] Documents on File Type Date Recorded Patient Winery Cellar Hand Expl anation Advance Directives and Living Will 11/03/2008 ADVANCE DIRECTIVE / LIVING WILL Advance Directives and Living Will 11/03/2008 ADVANCE DIRECTIVE / LIVING WILL Power of Precinct Police Sergeant 11/03/2008 POWER OF A TTORNEY Power of Precinct Police Sergeant 11/03/2008 POWER OF A TTORNEY Power of Precinct Police Sergeant 11/03/2008 POWER OF A TTORNEY Care Teams Delivery Crew Member Relationship Specialty Start Date End Date Efraín Zamudio III, MD [address] [facility] [place] [address] PCP - General Family Medicine 06/24/21 documented as of this encounter
--- OUTSIDE RECORDS SUMMARY | 2023-08-31 20:54 | External Medical Summary | Summary of Care ---
Author Name Unknown Organization [facility] Address [address] [place] [address] Phone [phone] Care Team Providers Care Business Account Leader Name Role Phone Lizz BUI MD, Efraín León Primary Care Provider [phone] Reason for Visit * Reason Onset Date Comments No Show 08/27/2023 Encounter Details Date Type Department Care Team (Late st Contact Info) Description 08/27/2023 Telephone Hematology/Oncology [facility] [address] [place] [address] Janna Muñoz CRNP [address] [place] [address] No Show Allergies Active Allergy [...] as of this encounter (statuses as of 08/28/2023) Medications Medication Sig Dispensed Refills Start Date [...] as of this encounter (statuses as of 08/28/2023) Active Problems Problem Noted Date Diagnosed Date [...] as of this encounter (statuses as of 08/28/2023) Resolved Problems Problem Noted Date Diagnosed Date [...] as of this encounter (statuses as of 08/28/2023) Immunizations Name Administration Dates Next Due COVID-19 [...] Please contact patient to reschedule appt with Janan Toni that he did not show for. Thank you. documented in this encounter Plan of Treatment Upcoming Encounters Date Type Department Care Team (Late st Contact Info) Description 11/22/2023 1:00 PM EDT Office Visit Ophthalmology, [facility] 132 [facility] [place] [address] Francis Turner, DO [address] [place] [address] Scheduled Procedures Name Priority Associated Diagnoses Date/Ti [...] Documents on File Type Date Recorded Patient Automated Process Operator Expl anation Advance Directives and Living Will 11/03/2008 ADVANCE DIRECTIVE / LIVING WILL Advance Directives and Living Will 11/03/2008 ADVANCE DIRECTIVE / LIVING WILL Power of Creasing Machine Operator 11/03/2008 POWER OF A TTORNEY Power of Creasing Machine Operator 11/03/2008 POWER OF A TTORNEY Power of Creasing Machine Operator 11/03/2008 POWER OF A TTORNEY Care Teams Business Account Leader Relationship Specialty Start Date End Date Efraín Zamudio III, MD [address] [place] [address] PCP - General Family Medicine 06/24/21 documented as of this encounter
--- OUTSIDE RECORDS SUMMARY | 2023-08-31 20:55 | External Medical Summary | Summary of Care ---
Author Name Unknown Organization [facility] Address [address] [place] [address] Phone [phone] Care Team Providers Care Remote Sensing Analyst Name Role Phone Lizz BUI MD, Efraín León Primary Care Provider [phone] Reason for Visit * Reason Onset Date Comments No Show 08/27/2023 Encounter Details Date Type Department Care Team (Late st Contact Info) Description 08/27/2023 Telephone Hematology/Oncology [facility] [address] [place] [address] Janna Muñoz CRNP [address] [place] [address] No Show Allergies Active Allergy [...] Miscellaneous Notes * Telephone Encounter - Airam Brody OSA [...] 11/22/2023 1:00 PM EDT Office Visit Ophthalmology, [facility] 132 [facility] [place] [phone] Francis Turner, 21 [place] [address] Scheduled Procedures Name Priority Associated Diagnoses Date/Ti [...] Documents on File Type Date Recorded Patient Forex Trader Expl anation Advance Directives and Living Will 11/03/2008 ADVANCE DIRECTIVE / LIVING WILL Advance Directives and Living Will 11/03/2008 ADVANCE DIRECTIVE / LIVING WILL Power of Steel Detailer 11/03/2008 POWER OF A TTORNEY Power of Steel Detailer 11/03/2008 POWER OF A TTORNEY Power of Steel Detailer 11/03/2008 POWER OF A TTORNEY Care Teams Remote Sensing Analyst Relationship Specialty Start Date End Date Efraín Zamudio III, MD [address] [place] [address] PCP - General Family Medicine 06/24/21 documented as of this encounter
--- OUTSIDE RECORDS SUMMARY | 2023-08-31 20:55 | External Medical Summary | Summary of Care ---
Author Name Unknown Organization [facility] Address [address] [place] [address] Phone [phone] Care Team Providers Care Spring Intern Name Role Phone Lizz BUI MD, Efraín León Primary Care Provider [phone] Reason for Visit * Reason Onset Date Comments Medication Question 08/22/2023 Encounter Details Date Type Department Care Team (Late st Contact Info) Description 08/22/2023 Telephone Family Practice [facility] 200 [facility] [place] [address] Efraín Zamudio III, MD 200 [place] [address] Medication Question Allergies Active Allergy Reactions Criticality [...] as of this encounter (statuses as of 08/24/2023) Medications Medication Sig Dispensed Refills Start Date [...] as of this encounter (statuses as of 08/24/2023) Active Problems Problem Noted Date Diagnosed Date [...] as of this encounter (statuses as of 08/24/2023) Resolved Problems Problem Noted Date Diagnosed Date [...] as of this encounter (statuses as of 08/24/2023) Immunizations Name Administration Dates Next Due COVID-19 [...] encounter Miscellaneous Notes * Telephone Encounter - Ronda Morales, easter bunny - 08/22/2023 1:30 PM EDT Eddie Balbuena calling to verify the correct dose for Rosuvastatin. Pt stated with pharmacy that he has been taking 2 tablets daily. Please advise. Thank you, Ronda Morales, Housemaid [facility] ([facility]PS) (Formerly Telepharmacy) 08/22/2023,1:31 PM documented in this encounter Plan of Treatment Upcoming Encounters Date Type Department Care Team (Late st Contact Info) Description 08/27/2023 9:30 AM EDT Office Visit Hematology/Oncology [facility] 200 [place] [phone] Janna Muñoz CRNP 400 [facility] [place] [address] 11/22/2023 1:00 PM EDT Office Visit Ophthalmology, [facility] [address] [facility] [place] [address] Francis Turner DO 21 [facility] [place] [address] Scheduled Procedures Name Priority Associated Diagnoses [...] Documents on File Type Date Recorded Patient Trial Management Associate Expl anation Advance Directives and Living Will 11/03/2008 ADVANCE DIRECTIVE / LIVING WILL Advance Directives and Living Will 11/03/2008 ADVANCE DIRECTIVE / LIVING WILL Power of Professor Of Engineering 11/03/2008 POWER OF A TTORNEY Power of Professor Of Engineering 11/03/2008 POWER OF A TTORNEY Power of Professor Of Engineering 11/03/2008 POWER OF A TTORNEY Care Teams Spring Intern Relationship Specialty Start Date End Date Lizz III, Efraín León MD 200 [facility] [place] [address] PCP - General Family Medicine 06/24/21 documented as of this encounter
--- OUTSIDE RECORDS SUMMARY | 2023-08-31 20:55 | External Medical Summary | Summary of Care ---
Author Name Unknown Organization [facility] Address [address] [place] [address] Phone [phone] Care Team Providers Care Manager Cardiovascular Name Role Phone Lizz BUI MD, Efraín León Primary Care Provider [phone] Reason for Visit * Reason Onset Date Comments Medication Question 08/22/2023 Encounter Details Date Type Department Care Team (Late st Contact Info) Description 08/22/2023 Telephone Family Practice [facility] 200 [place] [address] Efraín Zamudio III, MD 200 [place] [address] Medication Question Allergies Active Allergy Reactions Criticality [...] as of this encounter (statuses as of 08/22/2023) Medications Medication Sig Dispensed Refills Start Date End Date Status Silver sulfADIAZINE 1 % External Cream (Silvadene)Indicatio ns:Wound of left foot,Osteomyelitis of toe (HCC) Apply topically to affected area daily. Apply to foot. 50 g 1 09/13/2022 Active Additional Information Patient not taking.Reported on 06/28/2023 Gauze Pads 4"X4" PadIndications:Wound of left foot,Osteomyelitis of toe (HCC) Apply to the foot daily with silvadene cream. 100 Each 5 09/13/2022 Active Rosuvastatin Calcium 40 MG Oral Tablet (Crestor)Indications :Dyslipidemia, goal LDL below 100 Take 1 Tablet by mouth at bedtime. 90 Tablet 1 01/12/2023 Active Rizatriptan Benzoate 10 MG Oral Tablet (Maxalt) TAKE 1 TABLET BY MOUTH NEEDED FOR MIGRAINE. CAN REPEAT DOSE IN 1 HOUR IF NEEDED. MAXIMUM DOSE OF 20mg PER DAY. 10 Tablet 02/13/2023 Active Additional Information Patient not taking.Reported on 06/28/2023 LancetsIndications:D iabetic polyneuropathy associated with type 2 [...] daily for use with multiple daily insulin injections-before all meals, snacks, exercise, and one to [...] daily for use with multiple daily insulin injections-before all meals, snacks, exercise, and one to [...] before bedtime. 90 Tablet 5 06/01/2023 Active Gabapentin 800 MG Oral Tablet (Neurontin) Take 1 Tablet by mouth in the morning and 1 Tablet at noon and 1 Tablet before bedtime. 90 Tablet 4 06/01/2023 Active Ferrous Sulfate 325 (65 Fe) MG Oral Tablet (Feosol) Take 1 Tablet by mouth in the morning and 1 Tablet before bedtime. 60 Tablet 11 06/28/2023 Active Docusate Sodium 100 MG Oral Capsule (Colace) Take 1 Capsule by mouth 2 times a day as needed for Constipation. 60 Capsule 11 07/03/2023 Active Ozempic (1 MG/DOSE) 4 MG/3ML Subcutaneous [...] and 2 Puffs before bedtime. 8.5 g 07/10/2023 Active Esomeprazole Magnesium 40 MG Oral Capsule Delayed Release (NexIUM) Take 1 Capsule by mouth in the morning. 1 hour before the first meal of the day. 30 Capsule 11 07/11/2023 Active Diclofenac Sodium 1 % External Gel (Voltaren) Apply topically to affected area 4 times a day. 2 grams/ dose Apply to knee as needed for pain 100 g 07/13/2023 Active traZODone HCl 50 MG Oral [...] at bedtime. 3.5 g 6 08/16/2023 Active documented as of this encounter (statuses as of 08/22/2023) Active Problems Problem Noted Date Diagnosed Date [...] as of this encounter (statuses as of 08/22/2023) Resolved Problems Problem Noted Date Diagnosed Date [...] as of this encounter (statuses as of 08/22/2023) Immunizations Name Administration Dates Next Due COVID-19 mRNA, LNP-s, No Pre serve, 2-Dose Series (Moderna) 06/16/2020,05/19/2020 Hepatitis B, 20+ yrs 06/02/2014,01/06/2014,12/03 Pneumococcal Conjugate Vacc, 13 Valent (Prevnar) 01/09/2020 Pneumococcal Polysaccharide PPV23 (Pneumovax) 07/13/2021,12/30/2008 Seasonal Influenza, PF, 6 M & above, IM , (FluLaval or Fluzone) 12/29/2022,06/28/2022,12/27/2020,01/08 Seasonal Influenza, Split, I IV3, With Preserve, Inj 12/30/2008 TDAP (age 11 and older)(Adacel) 07/12/2022,05/11 Varicella Zoster Vaccine (Adult) 12/03/2013 Zoster Vaccine [...] Miscellaneous Notes * Telephone Encounter - Ronda Morales PHARM Tech - 08/22/2023 1:30 PM EDT Eddie Dominguezthecardiya calling to verify the correct dose for Rosuvastatin. Pt stated with pharmacy that he has been taking 2 tablets daily. Please advise. Thank you, Ronda Morales, Resolution Manager [facility] Pharmacy Services (CCPS) (Formerly Telepharmacy) 08/22/2023,1:31 PM documented in this encounter Plan of Treatment Upcoming Encounters Date Type Department Care Team (Late st Contact Info) Description 08/23/2023 9:00 AM EDT Office Visit Family Practice [facility] 200 [facility] [place] [address] Caitie Schafer PA-C 200 [facility] [place] [address] 08/27/2023 9:30 AM EDT Office Visit Hematology/Oncology [facility] 200 [facility] [place] [phone] Janna Muñoz CRNP 400 [facility] [place] [address] 11/22/2023 1:00 PM EDT Office Visit Ophthalmology, [facility] 132 [facility] [place] [address] Francis Turner DO [address] [facility] [place] [address] Scheduled Procedures Name Priority Associated Diagnoses Date/Ti [...] 09/18/2018, Additional history exists HbA1c 01/15/2024 07/16/2023, 100 08/2022, 06/28/2022, Additional history exists GFR 03/14/2024 [...] Documents on File Type Date Recorded Patient Collection Clerk Expl anation Advance Directives and Living Will 11/03/2008 ADVANCE DIRECTIVE / LIVING WILL Advance Directives and Living Will 11/03/2008 ADVANCE DIRECTIVE / LIVING WILL Power of Registration Rep 11/03/2008 POWER OF A TTORNEY Power of Registration Rep 11/03/2008 POWER OF A TTORNEY Power of Registration Rep 11/03/2008 POWER OF A TTORNEY Care Teams Manager Cardiovascular Relationship Specialty Start Date End Date Efraín Zamudio III, MD [address] [place] [facility] [address] PCP - General Family Medicine 06/24/21 documented as of this encounter
--- OUTSIDE RECORDS SUMMARY | 2023-08-31 20:55 | External Medical Summary | Summary of Care ---
Author Name Unknown Organization [facility] Address [address] [place] [address] Phone [phone] Care Team Providers Care Formula Weigher Name Role Phone Lizz BUI MD, Efraín León Primary Care Provider [phone] Reason for Visit * Reason Onset Date Comments Advice 08/13/2023 Encounter Details Date Type Department Care Team (Late st Contact Info) Description 08/13/2023 Telephone Family Practice [facility] 200 [facility] [place] [address] Efraín Zamudio III, MD 200 [place] [address] Advice Allergies Active Allergy Reactions Criticality Noted [...] needed for Sleep. 30 Tablet 08/07/2023 Active Silver sulfADIAZINE 1 % External Cream [...] encounter Miscellaneous Notes * Telephone Encounter - Janna Dawn LPN - 08/24/2023 11:07 AM EDT Pt was seen in office on 08/23/23. * Telephone Encounter - Corey Galvan DO - 08/14/2023 5:40 PM EDT Cindy is fine * Telephone Encounter - Janna Dawn LPN - 08/14/2023 4:55 PM EDT I spoke with patient earlier today regarding a different issue and he didn't mention this. Okay to recommend Visine drops? * Telephone Encounter - Agata Moreno OSA - 08/14/2023 4:50 PM EDT Patient calling in to check on the status of previous message. Patient Called within 48 hour timeframe. Reminded patient of 48 hour turn-around time. * Telephone Encounter - Jeanna Mata OSA - 08/13/2023 12:42 PM EDT Patient calling he has burning and redness in eyes. He is asking if any eye drops can be recommended/ordered. He can't pronounce name of his pharmacy documented in this encounter Plan of Treatment Upcoming Encounters Date Type Department Care Team (Late st Contact Info) Description 08/27/2023 9:30 AM EDT Office Visit Hematology/Oncology [facility] 200 [place] [address] Janna Muñoz CRNP 400 [facility] [place] [address] 11/22/2023 1:00 PM EDT Office Visit Ophthalmology, [facility] 132 [facility] [place] [address] Francis Turner DO 21 [facility] [place] [address] Scheduled Procedures Name Priority Associated Diagnoses Date/Ti [...] Documents on File Type Date Recorded Patient Medicaid Billing Clerk Expl anation Advance Directives and Living Will 11/03/2008 ADVANCE DIRECTIVE / LIVING WILL Advance Directives and Living Will 11/03/2008 ADVANCE DIRECTIVE / LIVING WILL Power of Pipe Threading Machine Operator 11/03/2008 POWER OF A TTORNEY Power of Pipe Threading Machine Operator 11/03/2008 POWER OF A TTORNEY Power of Pipe Threading Machine Operator 11/03/2008 POWER OF A TTORNEY Care Teams Formula Weigher Relationship Specialty Start Date End Date Efraín Zamudio III, MD 200 [facility] [place] [address] PCP - General Family Medicine 06/24/21 documented as of this encounter
--- OUTSIDE RECORDS SUMMARY | 2023-08-31 20:55 | External Medical Summary | Summary of Care ---
Author Name Unknown Organization [facility] Address [address] [place] [address] Phone [phone] Care Team Providers Care Repatcher Name Role Phone Lizz BUI MD, Efraín León Primary Care Provider [phone] Reason for Visit * Reason Onset Date Comments Advice 08/24/2023 FYI 08/24/2023 Encounter Details Date Type Department Care Team (Late st Contact Info) Description 08/24/2023 Telephone Family Practice [facility] 200 [facility] [place] [address] Efraín [facility]ud[facility] III, [facility] [address] Advice; Allergies Active Allergy Reactions Criticality Noted Date [...] as of this encounter (statuses as of 08/25/2023) Medications Medication Sig Dispensed Refills Start Date [...] as of this encounter (statuses as of 08/25/2023) Active Problems Problem Noted Date Diagnosed Date [...] as of this encounter (statuses as of 08/25/2023) Resolved Problems Problem Noted Date Diagnosed Date [...] as of this encounter (statuses as of 08/25/2023) Immunizations Name Administration Dates Next Due COVID-19 [...] encounter Miscellaneous Notes * Telephone Encounter - Tatiana Gavin OSA - 08/25/2023 12:51 PM EDT Patient calling back, CD is from [employer] * Telephone Encounter - Airam Patterson OSA - 08/24/2023 3:12 PM EDT Pt is calling in stating that he found a cd from 2008 from [facility], pt thinks this is from around the time that he had the back surgery and he said it is from when the pulled the metal out of the pts back. He wasn't sure If you needed the cd as a copy so you can see what is on it if it is pictures pt is not sure what is on it. He said to let him know if you would like the cd. documented in this encounter Plan of Treatment Upcoming Encounters Date Type Department Care Team (Late st Contact Info) Description 08/27/2023 9:30 AM EDT Office Visit Hematology/Oncology [place] [address] [place], [place] [address] Janna Muñoz CRNP [address] [place] [address] 11/22/2023 1:00 PM EDT Office Visit Ophthalmology, [facility] [address] [place] [address] Francis Turner, DO [address] [place] [address] Scheduled Procedures Name Priority Associated Diagnoses Date/Ti [...] 09/18/2018, Additional history exists HbA1c 01/15/2024 07/16/2023, 08/2022, 06/28/2022, Additional history exists GFR 03/14/2024 [...] Documents on File Type Date Recorded Patient Mds Nurse Expl anation Advance Directives and Living Will 11/03/2008 ADVANCE DIRECTIVE / LIVING WILL Advance Directives and Living Will 11/03/2008 ADVANCE DIRECTIVE / LIVING WILL Power of Clinical Dietetic Technician 11/03/2008 POWER OF A TTORNEY Power of Clinical Dietetic Technician 11/03/2008 POWER OF A TTORNEY Power of Clinical Dietetic Technician 11/03/2008 POWER OF A TTORNEY Care Teams Repatcher Relationship Specialty Start Date End Date Efraín Zamudio III, MD [address] [place] [address] PCP - General Family Medicine 06/24/21 documented as of this encounter
--- OUTSIDE RECORDS SUMMARY | 2023-08-31 20:55 | External Medical Summary | Summary of Care ---
Author Name Unknown Organization [facility] Address [address] [place] [address] Phone [phone] Care Team Providers Care Tool And Production Planner Name Role Phone Lizz BUI MD, Efraín León Primary Care Provider [phone] Reason for Visit * Reason Onset Date Comments Advice 05/26/2023 Encounter Details Date Type Department Care Team (Late st Contact Info) Description 05/26/2023 Telephone Family Practice [facility] [address] [facility] [place] [address] Efraín Zamudio III, MD 200 [place] [address] Advice Allergies Active Allergy Reactions Criticality Noted [...] needed for Anxiety. 21 Tablet 05/15/2023 Active Silver sulfADIAZINE 1 % External Cream (Silvadene)Indicatio ns:Wound of left foot,Osteomyelitis of toe (HCC) Apply topically to affected area daily. Apply to foot. 50 g 1 09/13/2022 4 Discontinue d(End of Procedure) Gauze Pads 4"X4" PadIndications:Wound of left foot,Osteomyelitis of toe (HCC) Apply to the foot daily with silvadene cream. 100 Each 5 09/13/2022 4 Discontinue d(End of Procedure) Ozempic (1 MG/DOSE) 4 MG/3ML Subcutaneous Solution Pen-injector (Semaglutide (1 MG/DOSE)) Inject 1 mg under the skin once a week. 3 mL 6 10/25/2022 4 Discontinue d(Refill) Rizatriptan Benzoate 10 MG Oral Tablet (Maxalt) TAKE 1 TABLET BY MOUTH NEEDED FOR MIGRAINE. CAN REPEAT DOSE IN 1 HOUR IF NEEDED. MAXIMUM DOSE OF 20mg PER DAY. 10 Tablet 02/13/2023 4 Discontinue d(Refill) Ketorolac Tromethamine 10 MG Oral Tablet (Toradol) Take 1 Tablet by mouth 4 times a day as needed for Pain, Severe. Do not take for longer than 5 days 20 Tablet 03/07/2023 4 Discontinue d(Medicatio n List Clean Up) oxyCODONE HCl 5 MG Oral Tablet (Oxy IR) 03/12/2023 02 4 Discontinue d(End of Procedure) traZODone HCl 50 MG Oral Tablet (Desyrel) Take one and half tablets at bedtime 45 Tablet 2 04/09/2023 4 Discontinue d(Refill) Diclofenac Sodium 1 % External Gel (Voltaren) Apply topically to affected area 4 times a day. 2 grams/ dose Apply to knee as needed for pain 100 g 1 04/09/2023 4 Discontinue d(Refill) Gabapentin 800 MG Oral Tablet (Neurontin) Take 1 Tablet by mouth in the morning and 1 Tablet at noon and 1 Tablet before bedtime. 90 Tablet 5 04/30/2023 4 Discontinue d(Refill) Zolpidem Tartrate 10 MG Oral Tablet (Ambien) Take 1 Tablet by mouth at bedtime as needed for Sleep. 30 Tablet 05/07/2023 4 Discontinue d(Refill) Esomeprazole Magnesium 40 MG Oral Capsule Delayed Release (NexIUM) Take 1 Capsule by mouth in the morning. 1 hour before the first meal of the day. 30 Capsule 11 05/08/2023 4 Discontinue d(Refill) Ibuprofen 600 MG Oral Tablet (Motrin) Take 1 Tablet by mouth every 8 hours as needed (Headache). 24 Tablet 1 05/22/2023 Discontinue d(Refill) documented as of this encounter (statuses as [...] Overview: Per HTN Taxonomy. Mixed dyslipidemia 06/24/2008 9 Overview: Per Lipid Taxonomy. documented as [...] encounter Miscellaneous Notes * Telephone Encounter - Milly Cain OSA - 06/15/2023 10:38 AM EDT Date: 06/28/2023 Status: Prince Time: 11:40 AM Length: 20 Visit Type: [facility]URN [facility] [[id number]] Reg Status: Verified Copay: $0.00 Provider: Efraín Zamudio III, MD Department: [facility] * Telephone Encounter - Agata Bolden LPN - 05/28/2023 8:46 AM EST Patient needs to be seen for an appt, please call and schedule for appt with any available provider. * Telephone Encounter - Rehan Joe OSA - 05/26/2023 1:44 PM EST Pt is calling in because his body randomly starts shaking it only happens when he lays down he wants to know what is going on if it has to do with his back? documented in this encounter Plan of Treatment Upcoming Encounters Date Type Department Care Team (Late st Contact Info) Description 08/27/2023 9:30 AM EDT Office Visit Hematology/Oncology [facility] [address] [facility] [phone] Janna Muñoz CRNP 400 [facility] [place] [id number] 11/22/2023 1:00 PM EDT Office Visit Ophthalmology, [facility] 132 [facility] [place] [address] Francis Turner DO 21 [facility] [place] [address] Scheduled Procedures Name Priority Associated Diagnoses Date/Ti [...] Documents on File Type Date Recorded Patient Field Marketing Representative Expl anation Advance Directives and Living Will 11/03/2008 ADVANCE DIRECTIVE / LIVING WILL Advance Directives and Living Will 11/03/2008 ADVANCE DIRECTIVE / LIVING WILL Power of Management Coordinator 11/03/2008 POWER OF A TTORNEY Power of Management Coordinator 11/03/2008 POWER OF A TTORNEY Power of Management Coordinator 11/03/2008 POWER OF A TTORNEY Care Teams Tool And Production Planner Relationship Specialty Start Date End Date Efraín Zamudio III, MD [address] [place] [address] PCP - General Family Medicine 06/24/21 documented as of this encounter
--- OUTSIDE RECORDS SUMMARY | 2023-08-31 20:55 | External Medical Summary | Summary of Care ---
Author Name Unknown Organization [facility] Address [address] [place] [address] Phone [phone] Care Team Providers Care Steel Box Toe Inserter Name Role Phone Lizz BUI MD, Efraín León Primary Care Provider [phone] Reason for Visit * Reason Onset Date Comments Medication Question 08/22/2023 Encounter Details Date Type Department Care Team (Late st Contact Info) Description 08/22/2023 Telephone Family Practice [facility] 200 [facility] [place] [address] Efraín Zamudio III, MD [address] [place] [address] Medication Question Allergies Active Allergy Reactions Criticality [...] Notes * Telephone Encounter - Ronda Morales, serology technician - 08/22/2023 1:30 PM EDT Eddie Balbuena calling to verify the correct dose for Rosuvastatin. Pt stated with pharmacy that he has been taking 2 tablets daily. Please advise. Thank you, Ronda Morales, Aircraft Log Clerk [facility] ([facility]) (Formerly Telepharmacy) 08/22/2023,1:31 PM documented in this encounter Plan of Treatment Upcoming Encounters Date Type Department Care Team (Late st Contact Info) Description 08/27/2023 9:30 AM EDT Office Visit Hematology/Oncology [facility] 200 [place] [phone] Janna Muñoz CRNP 400 [facility] [place] [address] 11/22/2023 1:00 PM EDT Office Visit Ophthalmology, [facility] [address] [facility] [place] [address] Francis Turner DO 21 [facility] [place] [address] Scheduled Procedures Name Priority [...] Documents on File Type Date Recorded Patient Planer Mill Grader Expl anation Advance Directives and Living Will 11/03/2008 ADVANCE DIRECTIVE / LIVING WILL Advance Directives and Living Will 11/03/2008 ADVANCE DIRECTIVE / LIVING WILL Power of Automatic Fabric Cutter 11/03/2008 POWER OF A TTORNEY Power of Automatic Fabric Cutter 11/03/2008 POWER OF A TTORNEY Power of Automatic Fabric Cutter 11/03/2008 POWER OF A TTORNEY Care Teams Steel Box Toe Inserter Relationship Specialty Start Date End Date Lizz III, Efraín León MD 200 [facility] [place] [address] PCP - General Family Medicine 06/24/21 documented as of this encounter
--- OUTSIDE RECORDS SUMMARY | 2023-08-31 20:55 | External Medical Summary | Summary of Care ---
Author Name Unknown Organization [facility] Address [address] [place] [address] Phone [phone] Care Team Providers Care Auger Operator Name Role Phone Lizz BUI MD, Efraín León Primary Care Provider [phone] Encounter Details Date Type Department Care Team (Late st Contact Info) Description 08/23/2023 9:00 AM EDT Office Visit Family Practice [facility] 200 [place] [address] Caitie Schafer PA-C 200 [place] [address] Spinal stenosis of lumbar region without neurogenic claudication*; Type 2 diabetes mellitus with hemoglobin A1c goal of less than 7.5% (HCC); Postlaminectomy syndrome; HTN, goal below 140/90; Chronic low back pain, unspecified back pain laterality, unspecified whether sciatica present Allergies Active Allergy Reactions Criticality Noted Date [...] as of this encounter (statuses as of 08/23/2023) Medications Medication Sig Dispensed Refills Start Date [...] PER DAY. 10 Tablet 3 08/23/2023 Active Silver sulfADIAZINE 1 % External Cream [...] as of this encounter (statuses as of 08/23/2023) Active Problems Problem Noted Date Diagnosed Date [...] as of this encounter (statuses as of 08/23/2023) Resolved Problems Problem Noted Date Diagnosed Date [...] as of this encounter (statuses as of 08/23/2023) Immunizations Name Administration Dates Next Due COVID-19 [...] on file documented as of this encounter Last Filed Vital Signs Vital Sign Reading Time Taken Comments Blood Pressure 118/68 08/23/2023 8:56 AM EDT Pulse 72 08/23/2023 8:56 AM EDT Temperature 36.1 C (97 F) 08/23/2023 8:56 AM EDT Respiratory Rate 18 08/23/2023 8:56 AM EDT Oxygen Saturation - - Inhaled Oxygen Concentration - - Weight 110.7 kg (244 lb) 08/23/2023 8:56 AM EDT Height - - Body Mass Index 29.71 07/16/2023 11:33 AM EDT documented in this encounter Progress Notes * Caitie Schafer PA-C - 08/23/2023 9:47 AM EDT Images from the original note were not included. History of Present Illness Dann Carcamo is a 63 year old male that presents for No chief complaint on file. Patient is a 63-year-old male with a long history of spinal issues who presents today with ongoing low back pain. Had an MRI done in April this year which showed significant impingement stenosis at various levels. He has been waiting to hear back from spinal surgeon about a consult. We discussed possibility of seeing pain management for injections but is not interested at this point with that approach. He is currently taking 800 mg of gabapentin 3 times a day for his pain. Helpsmake it tolerable. Physical Exam Vitals: 08/23/23 0856 Temp: 36.1 C (97 F) Pulse: 72 Resp: 18 BP: 118/68 BP Readings from Last 3 Encounters: 08/23/23 118/68 07/16/23 118/78 06/28/23 112/66 Wt Readings from Last 3 Encounters: 08/23/23 110.7 kg (244 lb) 07/16/23 110.6 kg (243 lb 12.8 oz) 06/28/23 107 kg (236 lb) General: alert, healthy, well nourished, well developed, cooperative, and mild distress Head: Normocephalic, No masses, lesions, tenderness or abnormalities Eye Exam: PERRLA, extraocular movements intact, conjunctiva are pink and non- injected, sclera clear Lungs: chest symmetric with normal AP diameter, no chest deformities noted, normal respiratory rateand rhythm, diaphragmatic excursion normal Back: back symmetric, no curvature, Some limitation of flexion, Tender paralumbar muscles bilaterally Extremities: less than 2 second capillary refill, no joint deformities, effusion, or inflammation, no edema, no skin discoloration, no clubbing, no cyanosis I have reviewed the following results: Imaging results in the last 6 months MRI L SPINE WO CONTRAST Result Date: 05/10/2023 IMPRESSION 1. Multilevel, multifactorial degenerative changes of the lumbar spine with varying degrees of spinal canal and neural foraminal stenosis as described. Moderate spinal canal stenosis at L2-L3. 2. Leftward curvature of the lumbar spine. 3. Mild chronic height loss of the L4 and L5 vertebral bodies. 4. Anterolisthesis of L4 on L5 that measures 5-6 mm. Bilateral L4 pars defects. 5. Postsurgical changes of posterior decompression at L4-L5. US ABDOMEN LIMITED Result Date: 04/01/2023 IMPRESSION: Dedicated evaluation in the area of concern in the region of palpable abnormality the left surgical scar mid back demonstrates area of shadowing which is nonspecific and could be secondary to shadowing scar or suture. No collection or mass identified. THIS DOCUMENT HAS BEEN ELECTRONICALLY SIGNED BY ANDIE MEADOWS MD Assessment and Plan Spinal stenosis of lumbar region without neurogenic claudication (Primary) Type 2 diabetes mellitus with hemoglobin A1c goal of less than 7.5% (HCC) Postlaminectomy syndrome HTN, goal below 140/90 Chronic low back pain, unspecified back pain laterality, unspecified whether sciatica present Other orders - Rizatriptan Benzoate 10 MG Oral Tablet (Maxalt); TAKE 1 TABLET BY MOUTH NEEDED FOR MIGRAINE. CAN REPEAT DOSE IN 1 HOUR IF NEEDED. MAXIMUM DOSE OF 20mg PER DAY. Check-out note: Where is his appointment with spinal surgery.??? Wrap-Up Check-out note: Where is his appointment with spinal surgery.??? Time: I spent a total of 30-39 minutes (exact time 33 mins) on the date of service in preparation, delivery, and documentation of the care provided to Dann Carcamo excluding any time spent in the performance of separately billed services. documented in this encounter Nursing Notes * Janna Dawn LPN - 08/23/2023 8:55 AM EDT Dann Carcamo presents for 3 month recheck of back issues. Medications & HM reviewed. He brought in copies of his back x-rays. documented in this encounter Plan of Treatment Upcoming Encounters Date Type Department Care Team (Late st Contact Info) Description 08/27/2023 9:30 AM EDT Office Visit Hematology/Oncology [facility] 200 [place] [address] Janna Muñoz CRNP [address] [facility] [place] [address] 11/22/2023 1:00 PM EDT Office Visit Ophthalmology, [facility] [address] [facility] [place] [address] Francis Turner DO [facility] [place] [address] Scheduled Procedures Name [...] 07/13/2021, 01/09/2020, 12/30/2008 Lipid Panel 02/08/2028 02/07/2023, 0 07/2022, 03/10/2021, Additional history exists DTaP,Tdap,and Td [...] Not on filedocumented as of this encounter Visit Diagnoses Diagnosis Spinal stenosis of lumbar region without neurogenic claudication- Primary Spinal stenosis, lumbar region, without neurogenic claudication Type 2 diabetes mellitus with hemoglobin A1c goal of less than 7.5% (HCC) Postlaminectomy syndrome Postlaminectomy syndrome, unspecified region HTN, goal below 140/90 Unspecified essential hypertension Chronic low back pain, unspecified back pain laterality, unspecified whether sciatica present documented in this encounter Advance Directives Documents on File Type Date Recorded Patient Wool Supplier Expl anation Advance Directives and Living Will 11/03/2008 ADVANCE DIRECTIVE / LIVING WILL Advance Directives and Living Will 11/03/2008 ADVANCE DIRECTIVE / LIVING WILL Power of Tire Changer 11/03/2008 POWER OF A TTORNEY Power of Tire Changer 11/03/2008 POWER OF A TTORNEY Power of Tire Changer 11/03/2008 POWER OF A TTORNEY Care Teams Auger Operator Relationship Specialty Start Date End Date Efraín Zamudio III, MD 200 [place] [address] PCP - General Family Medicine 06/24/21 documented as of this encounter
--- OUTSIDE RECORDS SUMMARY | 2023-08-31 20:55 | External Medical Summary | Summary of Care ---
Author Name Unknown Organization [facility] Address [address] [place] [address] Phone [phone] Care Team Providers Care Warehouse Assistant Name Role Phone Lizz BUI MD, Efraín León Primary Care Provider [phone] Reason for Visit * Reason Onset Date Comments Advice 08/22/2023 Migraine headach es Encounter Details Date Type Department Care Team (Late st Contact Info) Description 08/22/2023 Telephone Family Practice [facility] 200 [facility] [place] [address] Efraín Zamudio III, MD 200 [place] [address] Advice (Migraine headaches) Allergies Active Allergy Reactions Criticality Noted Date [...] Overview: Per HTN Taxonomy. Mixed dyslipidemia 06/24/2008 12/200 9 Overview: Per Lipid Taxonomy. documented as [...] Dawn LPN - 08/24/2023 11:07 AM EDT Patient was seen in office on 08/23/23. * Telephone Encounter - Caitie Schafer PA-C - 08/22/2023 1:35 PM EDT Not sure I have ever seen this patient. Went back 4 years and could find no encounter., Could try a muscle relaxer if he likes * Telephone Encounter - Nina Cunningham RN - 08/22/2023 12:32 PM EDT Pt says he is still having 10 out of 10 headache. Has left shoulder pain going down arm, a little numbness in left hand. No sob, chest pressure, dizziness. He says he will go to the [employer] and get some excedrin and come in tomorrow morning. Advised to go to ER. Says he really doesn't want to go there, but will think about it if symptoms worsen. FYI. * Telephone Encounter - Lex Wilson OSA - 08/22/2023 12:27 PM EDT Reason for patient's call: return call Caller was transferred to Nina at the clinic. * Telephone Encounter - Nina Cunningham RN - 08/22/2023 12:20 PM EDT Called pt but he did not answer phone and voice mail box is full. * Telephone Encounter - Renetta Courtney OSA - 08/22/2023 9:49 AM EDT No Appointments Available Patient declined appointments?: Yes What Visit Type is needed? Acute If Acute Visit Type is needed, were surrounding clinics offered to patient (Yes/No)? Yes Was patient offered appointments with other available providers (Yes/No)? Yes See Call Details? (Yes or No): Yes documented in this encounter Plan of Treatment Upcoming Encounters Date Type Department Care Team (Late st Contact Info) Description 08/27/2023 9:30 AM EDT Office Visit Hematology/Oncology [facility] 200 [facility] [place] [phone] Janna Muñoz CRNP 400 [facility] [place] [address] 11/22/2023 1:00 PM EDT Office Visit Ophthalmology, [facility] 132 [facility] [place] [address] Francis Turner DO [address] [place] [address] Scheduled Procedures Name Priority Associated Diagnoses Date/Ti [...] Documents on File Type Date Recorded Patient Noc Engineer Expl anation Advance Directives and Living Will 11/03/2008 ADVANCE DIRECTIVE / LIVING WILL Advance Directives and Living Will 11/03/2008 ADVANCE DIRECTIVE / LIVING WILL Power of Stock Preparation Operator 11/03/2008 POWER OF A TTORNEY Power of Stock Preparation Operator 11/03/2008 POWER OF A TTORNEY Power of Stock Preparation Operator 11/03/2008 POWER OF A TTORNEY Care Teams Warehouse Assistant Relationship Specialty Start Date End Date Efraín Zamudio III, MD 200 [place] [address] PCP - General Family Medicine 06/24/21 documented as of this encounter
--- OUTSIDE RECORDS SUMMARY | 2023-08-31 20:55 | External Medical Summary | Summary of Care ---
Author Name Unknown Organization [facility] Address [address] [place] [address] Phone [phone] Care Team Providers Care Engine House Helper Name Role Phone Lizz BUI MD, Efraín León Primary Care Provider [phone] Reason for Visit * Reason Onset Date Comments No Show 08/27/2023 Encounter Details Date Type Department Care Team (Late st Contact Info) Description 08/27/2023 Telephone Hematology/Oncology [facility] [address] [place] [address] Janna Muñoz CRNP [address] [place] [address] No Show Allergies Active Allergy [...] 11/22/2023 1:00 PM EDT Office Visit Ophthalmology, [facility] 132 [facility] [place] [id number] Francis Turner, [address] [place] [address] Scheduled Procedures Name Priority Associated Diagnoses Date/Ti [...] Documents on File Type Date Recorded Patient Black Belt Expl anation Advance Directives and Living Will 11/03/2008 ADVANCE DIRECTIVE / LIVING WILL Advance Directives and Living Will 11/03/2008 ADVANCE DIRECTIVE / LIVING WILL Power of Early Head Start Teacher 11/03/2008 POWER OF A TTORNEY Power of Early Head Start Teacher 11/03/2008 POWER OF A TTORNEY Power of Early Head Start Teacher 11/03/2008 POWER OF A TTORNEY Care Teams Engine House Helper Relationship Specialty Start Date End Date Efraín Zamudio III, MD [address] [place] [address] PCP - General Family Medicine 06/24/21 documented as of this encounter
--- OUTSIDE RECORDS SUMMARY | 2023-08-31 20:55 | External Medical Summary | Summary of Care ---
Author Name Unknown Organization [facility] Address [address] [place] [address] Phone [phone] Care Team Providers Care Syrup Blender Name Role Phone Lizz BUI MD, Efraín León Primary Care Provider [phone] Reason for Visit * Reason Onset Date Comments Advice 08/13/2023 Encounter Details Date Type Department Care Team (Late st Contact Info) Description 08/13/2023 Telephone Family Practice [facility] 200 [facility] [place] [address] Efraín Zamudio III, MD 200 [place] [address] Advice Allergies Active Allergy Reactions Criticality Noted [...] 08/27/2023 9:30 AM EDT Office Visit Hematology/Oncology [facility] 200 [place] [address] Janna Muñoz CRNP 400 [facility] [place] [address] 11/22/2023 1:00 PM EDT Office Visit Ophthalmology, [facility] 132 [facility] [place] [address] Francis Turner DO 21 [facility] [place] [address] Scheduled Procedures Name Priority Associated Diagnoses Date/Ti [...] Documents on File Type Date Recorded Patient Test Car Driver Expl anation Advance Directives and Living Will 11/03/2008 ADVANCE DIRECTIVE / LIVING WILL Advance Directives and Living Will 11/03/2008 ADVANCE DIRECTIVE / LIVING WILL Power of Video Tape Duplicator 11/03/2008 POWER OF A TTORNEY Power of Video Tape Duplicator 11/03/2008 POWER OF A TTORNEY Power of Video Tape Duplicator 11/03/2008 POWER OF A TTORNEY Care Teams Syrup Blender Relationship Specialty Start Date End Date Efraín Zamudio III, MD 200 [facility] [place] [address] PCP - General Family Medicine 06/24/21 documented as of this encounter
--- OUTSIDE RECORDS SUMMARY | 2023-08-31 20:56 | External Medical Summary | Summary of Care ---
Author Name Unknown Organization [facility] Address [address] [place] [address] Phone [phone] Care Team Providers Care Senior Managing Director Name Role Phone Lizz BUI MD, Efraín León Primary Care Provider [phone] Reason for Visit * Reason Onset Date Comments Med Request 08/14/2023 Back pain additi ve Encounter Details Date Type Department Care Team (Late st Contact Info) Description 08/14/2023 Telephone Family Practice [facility] 200 [facility] [address] Efraín Zamudio III, MD 200 [place] [address] Med Request (Back pain additive) Allergies Active Allergy Reactions Criticality Noted Date [...] as of this encounter (statuses as of 08/14/2023) Medications Medication Sig Dispensed Refills Start Date End Date Status Silver sulfADIAZINE 1 % External Cream (Silvadene)Indicati ons:Wound of left foot,Osteomyelitis of toe (HCC) Apply topically to affected area daily. Apply to foot. 50 g 1 09/13/2022 Active Additional Information Patient not taking.Reported on 06/28/2023 Gauze Pads 4"X4" PadIndications:Woun d of left foot,Osteomyelitis of toe (HCC) Apply to the foot daily with silvadene cream. 100 Each 5 09/13/2022 Active Rosuvastatin Calcium 40 MG Oral Tablet (Crestor)Indication s:Dyslipidemia, goal LDL below 100 Take 1 Tablet by mouth at bedtime. 90 Tablet 1 01/12/2023 Active Rizatriptan Benzoate 10 MG Oral Tablet (Maxalt) TAKE 1 TABLET BY MOUTH NEEDED FOR MIGRAINE. CAN REPEAT DOSE IN 1 HOUR IF NEEDED. MAXIMUM DOSE OF 20mg PER DAY. 10 Tablet 02/13/2023 Active Additional Information Patient not taking.Reported on 06/28/2023 LancetsIndications: Diabetic polyneuropathy associated with type 2 diabetes mellitus (HCC) Use as directed 5 times daily 200 Each 04/07/2023 Active OneTouch Verio w/Device KitIndications:Diab etic polyneuropathy associated with type 2 diabetes mellitus (HCC) Use as directed E11.9 1 Kit 04/09/2023 Active OneTouch Verio In Vitro Strip (Glucose Blood)Indications:D iabetic polyneuropathy associated with type 2 diabetes mellitus (HCC) Test five times daily for use with multiple daily insulin injections-befor e all meals, snacks, exercise, and one to two times during the night. Dx: E11.9 200 Strip 04/09/2023 Active OneTouch UltraSoft LancetsIndications: Diabetic polyneuropathy associated with type 2 diabetes mellitus [...] day as needed for Constipation. 60 Capsule 07/03/2023 Active Ozempic (1 MG/DOSE) 4 MG/3ML Subcutaneous Solution Pen-injector (Semaglutide (1 MG/DOSE))Indication s:Type 2 diabetes mellitus with hemoglobin A1c goal of less than 7.5% ([facility]) Inject 1 mg under the skin once [...] needed for Sleep. 30 Tablet 08/07/2023 Active Ketorolac Tromethamine 10 MG Oral Tablet (Toradol) Take 1 Tablet by mouth 4 times a day as needed for Pain, Severe. Do not take for longer than 5 days 20 Tablet 03/07/2023 4 Discontinu ed(Medicat ion List Clean Up) oxyCODONE HCl 5 MG Oral Tablet (Oxy IR) 03/12/2023 4 Discontinu ed(End of Procedure) documented as of this encounter (statuses as of 08/14/2023) Active Problems Problem Noted Date Diagnosed Date [...] as of this encounter (statuses as of 08/14/2023) Resolved Problems Problem Noted Date Diagnosed Date [...] as of this encounter (statuses as of 08/14/2023) Immunizations Name Administration Dates Next Due COVID-19 [...] encounter Miscellaneous Notes * Telephone Encounter - Corey Galvan DO - 08/14/2023 5:42 PM EDT Third call from patient today - I already have in to recommend a telemed visit tomorrow. * Telephone Encounter - Janna Dawn LPN - 08/14/2023 11:03 AM EDT Patient is taking 600 mg ibuprofen TID, he states he was taking David back medication with the 600 mg of ibuprofen. He thought his new [employer] card was supposed to cover OTC medication but it doesn't because of a [employer] policy so he has not taken any Doans pills since last week. Has not tried tylenol or other OTC medication. I was unfamiliar with David's so I looked it up. It's another NSAID * Telephone Encounter - Efraín Perez OSA - 08/14/2023 9:53 AM EDT Patient back pain is severe. He has a script for Ibu 600. Last week he purchased some David pills. He takes them around 3 hours after his ibu. It seems to be helping. Hoping that he can get a script for a medication similar to Doans. Script can be sent to... [address] documented in this encounter Plan of Treatment Upcoming Encounters Date Type Department Care Team (Late st Contact Info) Description 08/16/2023 10:30 AM EDT Office Visit Ophthalmology, [facility] 132 [facility] [place] [address] Francis Turner DO [address] [place] [address] 08/23/2023 9:00 AM EDT Office Visit Family Practice [facility] [place] [address] [place] [address] Caitie Schafer PA-C [address] [place] [address] 08/27/2023 9:30 AM EDT Office Visit Hematology/Oncology [place] 200 [facility] [place] [address] Janna Muñoz CRNP [address] [place] [address] 09/28/2023 12:00 PM EDT Office Visit Family Practice [place] 200 [place] [address] Efraín Zamudio III, MD 200 [facility] [place] [address] Scheduled Procedures Name Priority Associated Diagnoses Date/Ti [...] Documents on File Type Date Recorded Patient Curing Oven Attendant Expl anation Advance Directives and Living Will 11/03/2008 ADVANCE DIRECTIVE / LIVING WILL Advance Directives and Living Will 11/03/2008 ADVANCE DIRECTIVE / LIVING WILL Power of Tipple Repairer 11/03/2008 POWER OF A TTORNEY Power of Tipple Repairer 11/03/2008 POWER OF A TTORNEY Power of Tipple Repairer 11/03/2008 POWER OF A TTORNEY Care Teams Senior Managing Director Relationship Specialty Start Date End Date Efraín Zamudio III, MD 200 [place] [address] PCP - General Family Medicine 06/24/21 documented as of this encounter
--- OUTSIDE RECORDS SUMMARY | 2023-08-31 20:56 | External Medical Summary | Summary of Care ---
Author Name Unknown Organization [facility] Address [address] [facility] [address] Phone [phone] Care Team Providers Care Stopper Maker Helper Name Role Phone Lizz BUI MD, Efraín León Primary Care Provider [phone] Encounter Details Date Type Department Care Team (Late st Contact Info) Description 08/16/2023 10:30 AM EDT Office Visit Ophthalmology, [facility] [address] [facility] [place] [address] Francis Turner, DO [facility] [place] [address] Dry eyes, bilateral*; Meibomian gland dysfunction (MGD) of both eyes; Squamous blepharitis of upper and lower eyelids of both eyes; Dermatochalasis of both upper eyelids; Type 2 diabetes mellitus with hemoglobin A1c goal of less than 7.0% ([facility]) Allergies Active Allergy Reactions Criticality Noted Date [...] as of this encounter (statuses as of 08/16/2023) Medications Medication Sig Dispensed Refills Start Date [...] and 1 Tablet before bedtime. 60 Tablet 06/28/2023 Active Docusate Sodium 100 MG Oral Capsule (Colace) Take 1 Capsule by mouth 2 times a day as needed for Constipation. 60 Capsule 07/03/2023 Active Ozempic (1 MG/DOSE) 4 MG/3ML Subcutaneous Solution Pen-injector (Semaglutide (1 MG/DOSE))Indications :Type 2 diabetes mellitus with hemoglobin A1c goal of less than 7.5% ([facility]) Inject 1 mg under the skin once a week. 3 mL 07/03/2023 Active ProAir HFA 108 (90 Base) [...] first meal of the day. 30 Capsule 07/11/2023 Active Diclofenac Sodium 1 % External [...] as of this encounter (statuses as of 08/16/2023) Active Problems Problem Noted Date Diagnosed Date [...] as of this encounter (statuses as of 08/16/2023) Resolved Problems Problem Noted Date Diagnosed Date [...] Overview: Per HTN Taxonomy. Mixed dyslipidemia 06/24/2008 12/16/200 9 Overview: Per Lipid Taxonomy. documented as of this encounter (statuses as of 08/16/2023) Immunizations Name Administration Dates Next Due COVID-19 [...] on file documented as of this encounter Progress Notes * Francis Turner DO - 08/16/2023 10:30 AM EDT 08/16/2023 [facility] Note HPI: Dann Carcamo is a 63 year old pt who presents to the eye clinic today as a new patient tome for evaluation. Location: OS>OD Severity: Moderate Quality: Sunday - neighbor noted redness in eyes, was also having burning in eyes. Exacerbating/Remitting Factors: Denies Associated Sx: Denies Past Ocular History: Metal foreign body cornea Eye Medications:Denies Family Ocular History: Brother - DCL ROS: Pt denies acute vision changes Pt denies new onset double vision Pt denies new DELEON Pt denies new issues surrounding eyes Pt admits to above Please see below for full exam details. Base Eye Exam Visual Acuity (Snellen - Linear) Right Left Dist sc 20/30 +2 20/40 Tonometry (Tonopen, 10:36 AM) Right Left Pressure 14 13 Pupils Pupils Dark Light Shape React APD Right PERRL 4 3.5 Round Brisk None Left PERRL 4 3.5 Round Brisk None Visual Amato (Counting fingers) Right Left Full Full Extraocular Movement Right Left Full, Ortho Full, Ortho Slight pain when looking left OU Neuro/Psych Oriented x3: Yes Mood/Affect: Normal Slit Lamp and Fundus Exam External Exam Right Left External Normal Normal Slit Lamp Exam Right Left Lids/Lashes DCL, brow ptosis, blepharitis DCL, brow ptosis, blepharitis Conjunctiva/Sclera White and quiet White and quiet Cornea Decreased TBUT Decreased TBUT Anterior Chamber Deep and quiet Deep and quiet Iris Round and reactive Round and reactive Lens NSC NSC A/P: Dry Eyes, MGD, blepharitis OU -Recommend artificial tears up to 4 times daily - cannot afford -Warm compresses -Ocusoft lid scrubs -Erythromycin ophth ointment QHS - PRN DCL, upper lids, OU -Monitor T2DM without hx of retinopathy -Dilate next visit - patient not interested today due to light sensitivity concerns and vision concerns RTC 3 months, dilate or sooner prn. Francis Turner DO 08/16/23 I spent a total of 10-19 minutes (exact time 15 mins) on the date of service in preparation, delivery, and documentation of the care provided to Dann Carcamo excluding any time spent in the performance of separately billed services. documented in this encounter Nursing Notes * Tatiana Cummings TECH - 08/16/2023 10:24 AM EDT Pt states eyes have been red and burning x 1 week and "my left eye is starting to close on its own"having pain on the inside corner of left eye Spoke with pharmacist about eye drops and was told to be seen by doctor before they would recommendany otc drops Pt states he is worried that he has graves disease Pt has not checked blood sugar this AM documented in this encounter Plan of Treatment Upcoming Encounters Date Type Department Care Team (Late st Contact Info) Description 08/23/2023 9:00 AM EDT Office Visit [facility] [address] [address] Caitie Schafer PA-C [address] [address] 08/27/2023 9:30 AM EDT Office Visit Hematology/Oncology [facility] [place] [address] [phone] Janna Muñoz CRNP [address] [facility] [place] [address] 09/28/2023 12:00 PM EDT Office Visit [facility] [address] [address] Efraín Zamudio III, MD [address] [facility] [place] [address] 11/22/2023 1:00 PM EDT Office Visit Ophthalmology, [facility] 132 [facility] [place] [address] Francis Turner DO [facility] [place] [address] Scheduled Procedures Name Priority Associated Diagnoses Date/Ti [...] as of this encounter Visit Diagnoses Diagnosis Dry eyes, bilateral- Primary Tear film insufficiency, unspecified Meibomian gland dysfunction (MGD) of both eyes Squamous blepharitis of upper and lower eyelids of both eyes Dermatochalasis of both upper eyelids Type 2 diabetes mellitus with hemoglobin A1c goal of less than 7.0% ([facility]) documented in this encounter Advance Directives Documents on File Type Date Recorded Patient Kitchen Porter Expl anation Advance Directives and Living Will 11/03/2008 ADVANCE DIRECTIVE / LIVING WILL Advance Directives and Living Will 11/03/2008 ADVANCE DIRECTIVE / LIVING WILL Power of Core Maker Helper 11/03/2008 POWER OF A TTORNEY Power of Core Maker Helper 11/03/2008 POWER OF A TTORNEY Power of Core Maker Helper 11/03/2008 POWER OF A TTORNEY Care Teams Stopper Maker Helper Relationship Specialty Start Date End Date Efraín Zamudio III, MD 200 [place] [address] PCP - General Family Medicine 06/24/21 documented as of this encounter
--- OUTSIDE RECORDS SUMMARY | 2023-08-31 20:56 | External Medical Summary | Summary of Care ---
Author Name Unknown Organization [facility] Address [address] [place] [address] Phone [phone] Care Team Providers Care Elevator Adjuster Name Role Phone Lizz BUI MD, Efraín León Primary Care Provider [phone] Reason for Visit * Reason Onset Date Comments Med Request 08/14/2023 Encounter Details Date Type Department Care Team (Late st Contact Info) Description 08/14/2023 Telephone Access Center, [place] [address] [facility] *DO NOT REMOVE THIS DEPARTMENT* [place] [address] Services, Scheduling [address] [place] [address] Med Request Allergies Active Allergy Reactions Criticality Noted Date [...] as of this encounter (statuses as of 08/15/2023) Medications Medication Sig Dispensed Refills Start Date [...] 200 Each 04/07/2023 Active OneTouch Verio w/Device KitIndications:Diabe tic [...] hemoglobin A1c goal of less than 7.5% ([facility]) Inject 1 mg under the skin once [...] needed for Sleep. 30 Tablet 08/07/2023 Active documented as of this encounter (statuses as of 08/15/2023) Active Problems Problem Noted Date Diagnosed Date [...] as of this encounter (statuses as of 08/15/2023) Resolved Problems Problem Noted Date Diagnosed Date [...] as of this encounter (statuses as of 08/15/2023) Immunizations Name Administration Dates Next Due COVID-19 [...] encounter Miscellaneous Notes * Telephone Encounter - Sujatha Giles LPN - 08/15/2023 8:21 AM EDT Patient aware that he has an appointment tomorrow and the OTC eye drops will be addressed at that visit. * Telephone Encounter - Elizabeth Hughes OSA - 08/14/2023 3:12 PM EDT Pt calling states that his medicaid does not cover the OTC eye drops- asking for something to be called into [facility]- please advise thanks. Also kept saying something about getting pain medicine for his back- advised I would ask about the drops. Please advise, thanks documented in this encounter Plan of Treatment Upcoming Encounters Date Type Department Care Team (Late st Contact Info) Description 08/16/2023 10:30 AM EDT Office Visit Ophthalmology, [facility] [address] [facility] [place] [address] Francis Turner DO 21 [facility] [place] [address] 08/23/2023 9:00 AM EDT Office Visit [facility] [address] [facility] [place] [address] Caitie Schafer PA-C [address] [facility] [place] [address] 08/27/2023 9:30 AM EDT Office Visit Hematology/Oncology [facility] [address] [facility] [place] [phone] Janna Muñoz CRNP 400 [facility] [place] [address] 09/28/2023 12:00 PM EDT Office Visit [facility] [address] [facility] [place] [address] Efraín Zamudio III, MD [address] [facility] [place] [address] Scheduled Procedures Name Priority Associated Diagnoses Date/Ti [...] Documents on File Type Date Recorded Patient Medical Doctor Md/Medical Director Expl anation Advance Directives and Living Will 11/03/2008 ADVANCE DIRECTIVE / LIVING WILL Advance Directives and Living Will 11/03/2008 ADVANCE DIRECTIVE / LIVING WILL Power of Manager Respiratory 11/03/2008 POWER OF A TTORNEY Power of Manager Respiratory 11/03/2008 POWER OF A TTORNEY Power of Manager Respiratory 11/03/2008 POWER OF A TTORNEY Care Teams Elevator Adjuster Relationship Specialty Start Date End Date Lizz BUI, Efraín León MD 200 [place] [address] PCP - General Family Medicine 06/24/21 documented as of this encounter
--- OUTSIDE RECORDS SUMMARY | 2023-08-31 20:59 | External Medical Summary | Summary of Care ---
Author Name Unknown Organization [facility] Address [address] [place] [address] Phone [phone] Care Team Providers Care Riding Silks Custodian Name Role Phone Lizz BUI MD, Efraín León Primary Care Provider [phone] Reason for Visit * Reason Onset Date Comments Appointment 08/04/2023 Encounter Details Date Type Department Care Team (Late st Contact Info) Description 08/04/2023 Telephone Family Practice [facility] 200 [facility] [place] [address] Efraín Zamudio III, MD 200 [place] [address] Appointment Allergies Active Allergy Reactions Criticality Noted Date [...] Each 11 04/07/2023 Active OneTouch Verio w/Device KitIndications:Diab etic [...] 200 Strip 11 04/09/2023 Active OneTouch UltraSoft LancetsIndications: Diabetic polyneuropathy [...] needed (Headache). 24 Tablet 3 08/02/2023 Active Ketorolac Tromethamine 10 MG Oral Tablet [...] encounter Miscellaneous Notes * Telephone Encounter - Nina Cunningham RN - 08/14/2023 3:11 PM EDT Pt had an appt on 08/09/23 but he no showed. Has appt with Caitie on 08/23/23. * Telephone Encounter - Alba Lilly OSA - 08/04/2023 12:20 PM EDT Pt calling in stating he's been getting bloated, has only had a couple sips of his energy drink andbreakfast, then went to the meat market and when he got home, his shirt seemed stretched out and noticed he has been getting bloated, states it happens a couple of times a month. Pt does not want to make an appt until Sunday or later in the week, please advise if it is okay to schedule out that far. documented in this encounter Plan of Treatment Upcoming Encounters Date Type Department Care Team (Late st Contact Info) Description 08/16/2023 10:30 AM EDT Office Visit Ophthalmology, [facility] 132 [facility] [place] [address] Francis Turner DO 21 [facility] [place] [address] 08/23/2023 9:00 AM EDT Office Visit [facility] [address] [place] [address] Caitie Schafer PA-C [address] [facility] [place] [address] 08/27/2023 9:30 AM EDT Office Visit Hematology/Oncology [facility] [place] [address] [address] [phone] Janna Muñoz CRNP 400 [facility] [place] [address] 09/28/2023 12:00 PM EDT Office Visit [facility] [address] [place] [address] [address] Efraín Zamudio III, MD 200 [facility] [place] [address] Scheduled Procedures Name Priority Associated Diagnoses Date/Ti [...] 07/13/2021, 01/09/2020, 12/30/2008 Lipid Panel 02/08/2028 02/07/2023, 040 07/2022, 03/10/2021, Additional history exists DTaP,Tdap,and Td [...] Documents on File Type Date Recorded Patient Manager Unix Expl anation Advance Directives and Living Will 11/03/2008 ADVANCE DIRECTIVE / LIVING WILL Advance Directives and Living Will 11/03/2008 ADVANCE DIRECTIVE / LIVING WILL Power of Lumber Loader 11/03/2008 POWER OF A TTORNEY Power of Lumber Loader 11/03/2008 POWER OF A TTORNEY Power of Lumber Loader 11/03/2008 POWER OF A TTORNEY Care Teams Riding Silks Custodian Relationship Specialty Start Date End Date Efraín Zamudio III, MD [address] [place] [address] PCP - General Family Medicine 06/24/21 documented as of this encounter
--- OUTSIDE RECORDS SUMMARY | 2023-08-31 21:00 | External Medical Summary | Summary of Care ---
Author Name Unknown Organization [facility] Address [address] [place] [address] Phone [phone] Care Team Providers Care International Travel Consultant Name Role Phone Lizz BUI MD, Didier León Primary Care Provider [phone] Reason for Visit * Reason Onset Date Comments Medication Refill 08/06/2023 Encounter Details Date Type Department Care Team (Late st Contact Info) Description 08/06/2023 Refill Family Practice [facility] 200 [place] [address] Didier Huff III, MD 200 [place] [address] Allergies Active Allergy Reactions Criticality Noted Date [...] as of this encounter (statuses as of 08/07/2023) Medications Medication Sig Dispensed Refills Start Date [...] DOSE OF 20mg PER DAY. 10 Tablet 0 02/13/2023 Active Additional Information Patient not taking.Reported on 06/28/2023 Ketorolac Tromethamine 10 MG Oral Tablet (Toradol) Take 1 Tablet by mouth 4 times a day as needed for Pain, Severe. Do not take for longer than 5 days 20 Tablet 0 03/07/2023 Active Additional Information Patient not taking.Reported on 06/28/2023 oxyCODONE HCl 5 MG Oral Tablet (Oxy IR) 0 03/12/2023 Active LancetsIndications: Diabetic polyneuropathy associated with type 2 diabetes mellitus (HCC) Use as directed 5 times daily 200 Each 04/07/2023 Active [employer] Verio w/Device KitIndications:Diab etic polyneuropathy associated with type 2 diabetes mellitus (HCC) Use as directed E11.9 1 Kit 0 04/09/2023 Active GreenPocketTouch Verio In Vitro Strip (Glucose Blood)Indications:D iabetic [...] w/Device Kit Use as directed. 1 Kit 0 04/10/2023 Active Accu-Chek Guide In Vitro Strip (Glucose Blood) Test five times daily for use with multiple daily insulin injections-befor e all meals, snacks, exercise, and one to two times during the night. Dx: E11.9 100 Strip 3 04/10/2023 Active LORazepam 0.5 MG Oral Tablet (Ativan) Take 1 Tablet by mouth every 8 hours as needed for Anxiety. 21 Tablet 0 05/15/2023 Active Gabapentin 800 MG Oral Tablet [...] hemoglobin A1c goal of less than 7.5% ([facility]) Inject 1 mg under the skin once [...] bedtime as needed for Sleep. 30 Tablet 0 08/07/2023 Active Zolpidem Tartrate 10 MG Oral Tablet (Ambien) Take 1 Tablet by mouth at bedtime as needed for Sleep. 30 Tablet 0 07/06/2023 4 Discontinu ed(Refill) documented as of this encounter (statuses as of 08/07/2023) Active Problems Problem Noted Date Diagnosed Date [...] as of this encounter (statuses as of 08/07/2023) Resolved Problems Problem Noted Date Diagnosed Date [...] as of this encounter (statuses as of 08/07/2023) Immunizations Name Administration Dates Next Due COVID-19 [...] encounter Miscellaneous Notes * Telephone Encounter - Piyush Arriaga, [facility] - 08/07/2023 9:10 AM EDT Signed Prescriptions: Disp Refills Zolpidem Tartrate 10 MG Oral Tablet (Ambie*30 Tab*0 Sig: Take 1 Tablet by mouth at bedtime as needed for Sleep.Authorizing Provider: DIDIER HUFF III * Telephone Encounter - Didier Huff III, MD - 08/07/2023 9:05 AM EDTSigned Prescriptions: Disp Refills Zolpidem Tartrate 10 MG Oral Tablet (Ambie*30 Tab*0 Sig: Take 1 Tablet by mouth at bedtime as needed for Sleep.Authorizing Provider: DIDIER HUFF III * Telephone Encounter - Piyush Arriaga [facility] - 08/06/2023 2:35 PM EDT Pending Prescriptions: Disp Refills Zolpidem Tartrate 10 MG Oral Tablet (Ambie*30 Tab*0 Sig: Take 1 Tablet by mouth at bedtime as needed for Sleep. * Telephone Encounter - Piyush Arriaga [facility] - 08/06/2023 2:35 PM EDT I have reviewed the patients controlled substance dispensing history in the Prescription Drug Monitoring Program in compliance with the [facility] regulations before prescribing a controlled substance. PDMP checked on 08/06/2023. Pending Prescriptions: Disp Refills Zolpidem Tartrate 10 MG Oral Tablet (Ambi*30 Tab*0 Sig: Take 1 Tablet by mouth at bedtime as needed for Sleep. Last Visit: 07/16/2023 (in office), 07/15/2019 (telemedicine) Next Visit: 08/23/2023 Date medication was last filled: 07/05 Date medication is due for refill: 08/03 Pharmacy: [address] Is this request for a controlled substance? Yes and Urine Drug Screen Not completed Toxicology results: No results found. However, due to the size of the patient record, not all encounters were searched.Please check Results Review for a complete set of results. Please approve if appropriate. Thanks, Piyush Arriaga PharmD Clinical Pharmacist [facility] ([facility]) (formerly Telepharmacy) [phone] 08/06/2023,2:35 PM * Telephone Encounter - Katie Victor CPhT - 08/06/2023 2:26 PM EDT Pt requesting HIGH PRIORITY due to out of med . Forward to [facility] for PDMP. Pt calling to check on status of Zolpidem Tartrate 10 MG Oral Tablet (Ambien) . Caller can be reached at [phone]. Thank you, Katie Victor CPhT [facility] ([facility]) (Formerly Telepharmacy) 08/06/2023,2:26 PM * Telephone Encounter - Ewa Martins CPhT - 08/06/2023 9:05 AM EDT Did you pend patient's preferred pharmacy and medication before forwarding?yes Pharmacy: [facility] [address] Pending Prescriptions: Disp Refills Zolpidem Tartrate 10 MG Oral Tablet (Ambi*30 Tab*0 Sig: Take 1 Tablet by mouth at bedtime as needed for Sleep. Last Visit: 07/16/2023 (in office), 07/15/2019 (telemedicine) Next Visit: 08/23/2023 If no future appointments scheduled, and last appointment is greater than a year ago, please schedule patient for a follow-up appointment Last date the medication was ordered: 07/06/2023 Is this request for a controlled substance?Yes, What was the last refill date 07/06/2023 w/ [id number] and dosage 10 and Urine Drug Screen Not completed Urine Drug Screen:No results found. However, due to the size of the patient record, not all encounters were searched. Please check Results Review for a complete set of results. Patient Phone Numbers Labs: Lab Results Component Value Date/Time CREAT 0.7 03/14/2023 08:47 AM CREAT 0.9 01/09/2020 09:23 AM POTASSIUM 4.8 03/14/2023 08:47 AM POTASSIUM 4.2 01/09/2020 09:23 AM TSH 2.46 07/16/2023 12:16 PM TSH 0.843 01/03/2018 12:00 AM TSH 2.09 04/06/2014 09:52 AM LDLCALC 164 (H) 06/28/2022 09:14 AM LDLCALC 86 01/03/2018 12:00 AM LDLCALC UNINTERPRETABLE RESULT 01/06/2013 09:36 AM LDLDIRECT 50 02/07/2023 12:13 PM LDLDIRECT 175 (H) 11/23/2017 07:50 AM ALT 17 03/14/2023 08:47 AM ALT 16 01/09/2020 09:23 AM HGBA1C 6.8 (H) 07/16/2023 12:16 PM HGBA1C 7.3 (A) 04/14/2021 12:00 AM HGBA1C 6.5 (H) 12/04/2019 01:51 PM documented in this encounter Plan of Treatment Upcoming Encounters Date Type Department Care Team (Late st Contact Info) Description 08/23/2023 9:00 AM EDT Office Visit [facility] 200 [facility] [place] [address] Caitie Schafer PA-C 200 [facility] [place] [address] 08/27/2023 9:30 AM EDT Office Visit Hematology/Oncology [facility] 200 [facility] [place] [phone] Janna Muñoz CRNP 400 [facility] [place] [address] 09/28/2023 12:00 PM EDT Office Visit [facility] 200 [facility] [place] [address] Didier Huff III, MD 200 [facility] [place] [address] Scheduled Procedures Name Priority Associated Diagnoses Date/Ti [...] of 2) 08/23/2022 06/28/2022, 11/24 Albumin/Creatinine Ratio 07/12/202[address] 023, 03/13/2019, 01/03/2018, Additional history exists Diabetic [...] Documents on File Type Date Recorded Patient Rigging Man Expl anation Advance Directives and Living Will 11/03/2008 ADVANCE DIRECTIVE / LIVING WILL Advance Directives and Living Will 11/03/2008 ADVANCE DIRECTIVE / LIVING WILL Power of Triage Assistant 11/03/2008 POWER OF A TTORNEY Power of Triage Assistant 11/03/2008 POWER OF A TTORNEY Power of Triage Assistant 11/03/2008 POWER OF A TTORNEY Care Teams International Travel Consultant Relationship Specialty Start Date End Date Didier Huff III, MD [address] [place] [address] PCP - General Family Medicine 06/24/21 documented as of this encounter
--- OUTSIDE RECORDS SUMMARY | 2023-08-31 21:00 | External Medical Summary | Summary of Care ---
Author Name Unknown Organization [facility] Address [address] [place] [address] Phone [phone] Care Team Providers Care Plate Mill Mill Hand Name Role Phone Lizz BUI MD, Efraín León Primary Care Provider [phone] Reason for Visit * Reason Onset Date Comments Med Request 08/06/2023 Encounter Details Date Type Department Care Team (Late st Contact Info) Description 08/06/2023 Telephone Family Practice [facility] [address] [facility] [place] [address] Efraín Zamudio III, MD 200 [place] [address] Med Request Allergies Active Allergy Reactions Criticality [...] as of this encounter (statuses as of 08/10/2023) Medications Medication Sig Dispensed Refills Start Date [...] MG Oral Tablet (Oxy IR) 0 03/12/2023 Acti ve LancetsIndications:D iabetic polyneuropathy associated with type 2 diabetes mellitus (HCC) Use as directed 5 times daily 200 Each 11 04/07/2023 Active eSparkTouch Verio w/Device KitIndications:Diabe tic polyneuropathy associated with type 2 diabetes mellitus (HCC) Use as directed E11.9 1 Kit 0 04/09/2023 Active eSparkTouch Verio In Vitro Strip (Glucose Blood)Indications:Di abetic [...] A1c goal of less than 7.5% ([facility]) Inject 1 mg under the skin once [...] needed (Headache). 24 Tablet 3 08/02/2023 Active documented as of this encounter (statuses as of 08/10/2023) Active Problems Problem Noted Date Diagnosed Date [...] as of this encounter (statuses as of 08/10/2023) Resolved Problems Problem Noted Date Diagnosed Date [...] as of this encounter (statuses as of 08/10/2023) Immunizations Name Administration Dates Next Due COVID-19 [...] encounter Miscellaneous Notes * Telephone Encounter - Puja Mckeon LPN - 08/10/2023 9:22 AM EDT Addressed in another encounter. RX sent 08/06 * Telephone Encounter - Sujatha Luo OSA - 08/06/2023 2:22 PM EDT Pt is calling in regarding a refill that is needed on hZolpidem Tartrate 10 MG Oral Tablet (Ambien) Please advise documented in this encounter Plan of Treatment Upcoming Encounters Date Type Department Care Team (Late st Contact Info) Description 08/23/2023 9:00 AM EDT Office Visit [facility] [address] [facility] [place] [address] Caitie Schafer PA-C [address] [facility] [place] [address] 08/27/2023 9:30 AM EDT Office Visit Hematology/Oncology [facility] [place] [address] [facility] [place] [phone] Janna Muñoz CRNP [facility] [address] 09/28/2023 12:00 PM EDT Office Visit [facility] [address] [facility] [place] [address] Efraín Zamudio III, MD [address] [facility] [place] [address] Scheduled Procedures Name Priority Associated Diagnoses Date/Ti [...] Documents on File Type Date Recorded Patient Peoplesoft Business Analyst Expl anation Advance Directives and Living Will 11/03/2008 ADVANCE DIRECTIVE / LIVING WILL Advance Directives and Living Will 11/03/2008 ADVANCE DIRECTIVE / LIVING WILL Power of Chronometer Assembler And Adjuster 11/03/2008 POWER OF A TTORNEY Power of Chronometer Assembler And Adjuster 11/03/2008 POWER OF A TTORNEY Power of Chronometer Assembler And Adjuster 11/03/2008 POWER OF A TTORNEY Care Teams Plate Mill Mill Hand Relationship Specialty Start Date End Date Efraín Zamudio III, MD 200 [place] [address] PCP - General Family Medicine 06/24/21 documented as of this encounter
--- OUTSIDE RECORDS SUMMARY | 2023-08-31 21:00 | External Medical Summary | Summary of Care ---
Author Name Unknown Organization [facility] Address [address] [place] [address] Phone [phone] Care Team Providers Care Simulation Engineer Name Role Phone Lizz BUI MD, Efraín León Primary Care Provider [phone] Reason for Referral * Evaluate & Treat - Unlimited Visits (Within 30 days (routine)) - Pending Review Specialty Diagnoses / Procedures Referred By Toshia marino Referred To Contact Physical Therapy / Physical Medicine And Rehab Diagnoses Pain in both lower extremities Weakness of both lower extremities Corey Galvan DO [address] [place] [address] Referral ID Status Reason Start Date Expiration Date Visits Requested Visits Authorized [id number] Pending Review Specialty Services Required 05/07/[phone] Question Answer Referral Priority Within 30 days (routine) Where should this appointment be scheduled? David Comments Aquatherapy Reason for Visit * Reason Onset Date Comments Advice 05/05/2023 Encounter Details Date Type Department Care Team (Late st Contact Info) Description 05/05/2023 Telephone Family Practice [facility] [address] [place] [address] Efraín Zamudio III, MD [address] [place] [address] Advice Allergies Active Allergy Reactions Criticality Noted [...] as of this encounter (statuses as of 08/04/2023) Medications Medication Sig Dispensed Refills Start Date [...] directed E11.9 1 Kit 0 04/09/2023 Active OneTouch Verio In Vitro Strip [...] Dx: E11.9 100 Strip 3 04/10/2023 Active Ozempic (1 MG/DOSE) 4 MG/3ML Subcutaneous Solution Pen-injector (Semaglutide (1 MG/DOSE)) Inject 1 mg under the skin once a week. 3 mL 6 10/25/2022 4 Discontinu ed(Refill) Esomeprazole Magnesium 40 MG Oral Capsule Delayed Release (NexIUM) Take 1 Capsule by mouth in the morning. 1 hour before the first meal of the day. 30 Capsule 4 01/12/2023 4 Discontinu ed(Refill) LORazepam 0.5 MG Oral Tablet (Ativan) Take 1 Tablet by mouth every 8 hours as needed for Anxiety. 21 Tablet 0 01/12/2023 4 Discontinu ed(Refill) traZODone HCl 50 MG Oral Tablet (Desyrel) Take one and half tablets at bedtime 45 Tablet 2 04/09/2023 4 Discontinu ed(Refill) Diclofenac Sodium 1 % External Gel (Voltaren) Apply topically to affected area 4 times a day. 2 grams/ dose Apply to knee as needed for pain 100 g 1 04/09/2023 4 Discontinu ed(Refill) Ibuprofen 600 MG Oral Tablet (Motrin) Take 1 Tablet by mouth every 8 hours as needed (Headache). 24 Tablet 0 04/21/2023 4 Discontinu ed(Medicat ion List Clean Up) Gabapentin 800 MG Oral Tablet (Neurontin) Take 1 Tablet by mouth in the morning and 1 Tablet at noon and 1 Tablet before bedtime. 90 Tablet 5 04/30/2023 4 Discontinu ed(Refill) Ibuprofen 600 MG Oral Tablet (Motrin) Take 1 Tablet by mouth every 8 hours as needed (Headache). 24 Tablet 0 05/04/2023 4 Discontinu ed(Refill) documented as of this encounter (statuses as of 08/04/2023) Active Problems Problem Noted Date Diagnosed Date [...] as of this encounter (statuses as of 08/04/2023) Resolved Problems Problem Noted Date Diagnosed Date [...] as of this encounter (statuses as of 08/04/2023) Immunizations Name Administration Dates Next Due COVID-19 [...] encounter Miscellaneous Notes * Telephone Encounter - Lang Dawn, TONIE - 05/08/2023 9:15 AM EST Referral has been faxed and came back successful 05-08-2022. Will call pt and make them aware. * Telephone Encounter - Corey Galvan DO - 05/07/2023 4:50 PM EST Please fax as requested and let him know it was sent * Telephone Encounter - Corey Galvan DO - 05/07/2023 4:49 PM EST ----- Message from Negar Sun RN sent at 05/05/2023 3:55 PM EST ----- Pt reports that BLE weakness and pain. Pt states that it is ongoing and he is requesting a referralfor water therapy. Pt states that he did not need a call back from the triage nurse, only that he was calling in to request a referral for hydrotherapy d/t continued pain in BLE's. Pt states that he is taking medication as prescribed and getting some relief but would like to try another intervention. Pt is asking if his PCP, Dr. Zamudio can call [facility] to request expedited services. [facility] # [phone] * Telephone Encounter - Ronda Reilly OSA - 05/05/2023 3:28 PM EST Pt is seeking help in scheduling his [place] water therapy sessions. He says they aren't able to get him scheduled due to availability issues. Pt needs some sort of therapy soon due to his pain. Please call back when possible to discuss. documented in this encounter Plan of Treatment Upcoming Encounters Date Type Department Care Team (Late st Contact Info) Description 08/23/2023 9:00 AM EDT Office Visit [facility] 200 [facility] [place] [address] Caitie Schafer PA-C 200 [facility] [place] [address] 08/27/2023 9:30 AM EDT Office Visit Hematology/Oncology [facility] 200 [facility] [place] [phone] Janna Muñoz CRNP 400 [facility] [place] [address] 09/28/2023 12:00 PM EDT Office Visit [facility] 200 [facility] [place] [address] Efraín Zamudio III, MD 200 [facility] [place] [address] Scheduled Procedures Name Priority Associated Diagnoses Date/Ti me COLONOSCOPY FLEXIBLE PROXIMAL DIAGNOSTIC Recall History of colon polyps Scheduled Referrals Name Type Priority Associated Diagnoses Orde r Schedule PHYSICAL THERAPY REFERRAL OP Referral Within 30 days (routine) Pain in both lower extremities Weakness of both lower extremities Ordered: 05/07/2023 Health Maintenance Due Date Last Done Comments [...] as of this encounter Visit Diagnoses Diagnosis Pain in both lower extremities- Primary Weakness of both lower extremities documented in this encounter Advance Directives Documents on File Type Date Recorded Patient Senior Grants Officer Expl anation Advance Directives and Living Will 11/03/2008 ADVANCE DIRECTIVE / LIVING WILL Advance Directives and Living Will 11/03/2008 ADVANCE DIRECTIVE / LIVING WILL Power of Underground Drill Operator 11/03/2008 POWER OF A TTORNEY Power of Underground Drill Operator 11/03/2008 POWER OF A TTORNEY Power of Underground Drill Operator 11/03/2008 POWER OF A TTORNEY Care Teams Simulation Engineer Relationship Specialty Start Date End Date Lizz BUI, Efraín León MD 200 [facility] [place] [address] PCP - General Family Medicine 06/24/21 documented as of this encounter
--- OUTSIDE RECORDS SUMMARY | 2023-08-31 21:00 | External Medical Summary | Summary of Care ---
Author Name Unknown Organization [facility] Address [address] [place] [address] Phone [phone] Care Team Providers Care Central Sterile Tech Name Role Phone Lizz BUI MD, Efraín León Primary Care Provider [phone] Reason for Visit * Reason Onset Date Comments TRIAGE 08/13/2023 Encounter Details Date Type Department Care Team (Late st Contact Info) Description 08/13/2023 Telephone Access Center, [place] [address] [facility] *DO NOT REMOVE THIS DEPARTMENT* [place] [address] Services, Scheduling [address] [place] [address] TRIAGE Allergies Active Allergy Reactions Criticality Noted Date [...] hemoglobin A1c goal of less than 7.5% ([facility]) Inject 1 mg under the skin once [...] Deep vein thrombosis (DVT) of upper extremity 11/23/1910/11/2022 Body mass index (BMI) of 40. 0 [...] encounter Miscellaneous Notes * Telephone Encounter - Brenda Thompson OSA - 08/14/2023 1:44 PM EDT Patient returned call and accepted appointment for 08/16/23 10:[address] Turner at in [place]. * Telephone Encounter - Rosa Wilkins, TONIE - 08/14/2023 11:06 AM EDT Attempted to contact patient to schedule appointment. Unable to leave voicemail message, mailbox is full. TONIE Rajput 08/14/2023 11:07 AM * Telephone Encounter - Efraín Perez OSA - 08/14/2023 9:58 AM EDT Patient called back. Lost connection before transfer to ophthalmology. Patient has blood in eye, one eye is closing and eyes are burning. Hoping for an eye drop script. * Telephone Encounter - Octavio Gonsales MD - 08/13/2023 2:07 PM EDT Please make appt later this week. * Telephone Encounter - Celina Galvez OSA - 08/13/2023 12:58 PM EDT Images from the original note were not included. Who is calling? Patient Best way to reach patient or person calling, if call back needed by nurse or physician: [phone] Patient complaint/concern: blood in both eye with burning sensation & droopy eyelids Location: Both eyes How long has it been going on: 3 days for blood in eye-droppy eylids for 6 months Timing: constant Associated symptoms: none If having pain, have patient rate pain on a scale from 0 to 10 (10 being the worst pain ever) Yes Characterization- none / Scale- 0/10 [facility] ONLY: *Person filling out this form: Once form completed, please route to p [phone] (triage nurse pool) after 4:00 pm route to Resident Pool P [id number]. Please let patient know you have sent symptoms for triageand someone will reach out to patient with further instruction. Physician or nurse will triage & reply with instruction to appropriate pools as listed below. Thank you! *Physicians triaging patient, please reply to: -If only instructions needed- NO appointment scheduling needed, please route to p [phone] (triage nurse pool). -If instructions AND appointment needed, please route to p [phone] (triage nurse pool) and p [phone] (pneumatic tube operator pool). [place] ONLY: Route all messages to P [phone] [facility] Ophthalmology triage pool [facility]: documented in this encounter Plan of Treatment Upcoming Encounters Date Type Department Care Team (Late st Contact Info) Description 08/16/2023 10:30 AM EDT Office Visit Ophthalmology, [facility] [address] [facility] [place] [address] Francis Turner DO 21 [facility] [place] [address] 08/23/2023 9:00 AM EDT Office Visit [facility] 200 [facility] [place] [address] Caitie Schafer PA-C 200 [facility] [place] [address] 08/27/2023 9:30 AM EDT Office Visit Hematology/Oncology [facility] [address] [address] [phone] Janna Muñoz CRNP 400 [facility] [place] [address] 09/28/2023 12:00 PM EDT Office Visit [facility] 200 [facility] [place] [address] Efraín Zamudio III, MD 200 [facility] [place] [address] Scheduled Procedures Name Priority Associated Diagnoses Date/Ti [...] Documents on File Type Date Recorded Patient Circle Saw Operator Expl anation Advance Directives and Living Will 11/03/2008 ADVANCE DIRECTIVE / LIVING WILL Advance Directives and Living Will 11/03/2008 ADVANCE DIRECTIVE / LIVING WILL Power of Burn Out Scarfing Operator 11/03/2008 POWER OF A TTORNEY Power of Burn Out Scarfing Operator 11/03/2008 POWER OF A TTORNEY Power of Burn Out Scarfing Operator 11/03/2008 POWER OF A TTORNEY Care Teams Central Sterile Tech Relationship Specialty Start Date End Date Efraín Zamudio III, MD 200 [place] [address] PCP - General Family Medicine 06/24/21 documented as of this encounter
--- OUTSIDE RECORDS SUMMARY | 2023-08-31 21:00 | External Medical Summary | Summary of Care ---
Author Name Unknown Organization [facility] Address [address] [place] [address] Phone [phone] Care Team Providers Care Building Insulation Supervisor Name Role Phone Lizz BUI MD, Efraín León Primary Care Provider [phone] Reason for Visit * Reason Onset Date Comments TRIAGE 08/13/2023 Encounter Details Date Type Department Care Team (Late st Contact Info) Description 08/13/2023 Telephone Access Center, [place] [address] [facility] *DO NOT REMOVE THIS DEPARTMENT* [place] [address] Services, Scheduling [address] [place] [address] TRIAGE Allergies Active Allergy Reactions Criticality Noted [...] hemoglobin A1c goal of less than 7.5% ([facility]) Inject 1 mg under the skin once [...] encounter Miscellaneous Notes * Telephone Encounter - Rosa Wilkins OSA - 08/14/2023 11:06 AM EDT Attempted to [...] call back needed by nurse or physician: [phone] Patient complaint/concern: blood in both eye with burning sensation & droopy eyelids Location: Both eyes How long has it been going on: 3 days for blood in eye-droppy eylids for 6 months Timing: constant Associated symptoms: none If having pain, have patient rate pain on a scale from 0 to 10 (10 being the worst pain ever) Yes Characterization- none / Scale- 0/10 [facility] ONLY: *Person filling out this form: Once form completed, please route to p [phone] (triage nurse pool) after 4:00 pm route to Resident Pool P [id number]. Please let patient know you have sent symptoms for triageand someone will reach out to patient with further instruction. Physician or nurse will triage & reply with instruction to appropriate pools as listed below. Thank you! *Physicians triaging patient, please reply to: -If only instructions needed- NO appointment scheduling needed, please route to p [phone] (triage nurse pool). -If instructions AND appointment needed, please route to p [phone] (triage nurse pool) and p [phone] (hand marker pool). [place] ONLY: Route all messages to P [phone] [facility] Ophthalmology triage pool [facility]: documented in this encounter Plan of Treatment Upcoming Encounters Date Type Department Care Team (Late st Contact Info) Description 08/23/2023 9:00 AM EDT Office Visit [facility] 200 [facility] [place] [address] Caitie Schafer PA-C 200 [facility] [place] [address] 08/27/2023 9:30 AM EDT Office Visit Hematology/Oncology [facility] 200 [facility] [place] [phone] Janna Muñoz CRNP 400 [facility] [place] [address] 09/28/2023 12:00 PM EDT Office Visit [facility] 200 [facility] [place] [address] Efraín Zamudio III, MD 200 [facility] [place] [address] Scheduled Procedures Name Priority Associated Diagnoses Date/Ti [...] Documents on File Type Date Recorded Patient Cafeteria Team Leader Expl anation Advance Directives and Living Will 11/03/2008 ADVANCE DIRECTIVE / LIVING WILL Advance Directives and Living Will 11/03/2008 ADVANCE DIRECTIVE / LIVING WILL Power of Fluxer 11/03/2008 POWER OF A TTORNEY Power of Fluxer 11/03/2008 POWER OF A TTORNEY Power of Fluxer 11/03/2008 POWER OF A TTORNEY Care Teams Building Insulation Supervisor Relationship Specialty Start Date End Date Efraín Zamudio III, MD 200 [place] [address] PCP - General Family Medicine 06/24/21 documented as of this encounter
--- OUTSIDE RECORDS SUMMARY | 2023-08-31 21:00 | External Medical Summary | Summary of Care ---
Author Name Unknown Organization [facility] Address [address] [place] [address] Phone [phone] Care Team Providers Care Navy Airspace Officer Name Role Phone Lizz BUI MD, Efraín León Primary Care Provider [phone] Reason for Visit * Reason Onset Date Comments FYI 05/11/2023 Encounter Details Date Type Department Care Team (Late st Contact Info) Description 05/11/2023 Telephone Access Center, [place] [address] [facility] *DO NOT REMOVE THIS DEPARTMENT* [place] [address] Services, Scheduling [address] [place] [address] Allergies Active Allergy Reactions Criticality Noted Date [...] Status Silver sulfADIAZINE 1 % External Cream (Silvadene)Indication s:Wound of left foot,Osteomyelitis of toe (HCC) Apply topically to affected area daily. Apply to foot. 50 g 1 09/13/2022 Active Additional Information Patient not taking.Reported on 06/28/2023 Gauze Pads 4"X4" PadIndications:Wound of left foot,Osteomyelitis of toe (HCC) Apply to the foot daily with silvadene cream. 100 Each 5 09/13/2022 Active Rosuvastatin Calcium 40 MG Oral Tablet (Crestor)Indications: [...] Tablet (Oxy IR) 0 03/12/2023 Acti ve LancetsIndications:Di abetic polyneuropathy associated with type 2 diabetes mellitus (HCC) Use as directed 5 times daily 200 Each 11 04/07/2023 Active Im[employer]ative Energy Verio w/Device KitIndications:Diabet ic polyneuropathy associated with type 2 diabetes mellitus (HCC) Use as directed E11.9 1 Kit 0 04/09/2023 Active [employer] [employer] Systemsuch Verio In Vitro Strip (Glucose Blood)Indications:Alondra betic polyneuropathy associated with type 2 diabetes mellitus (HCC) Test five times daily for use with multiple daily insulin injections-before all meals, snacks, exercise, and one to two times during the night. Dx: E11.9 200 Strip 11 04/09/2023 Active Im[employer] Energy UltraSoft LancetsIndications:Di abetic polyneuropathy associated with type [...] Dx: E11.9 100 Strip 3 04/10/2023 Active documented as of this encounter (statuses [...] encounter Miscellaneous Notes * Telephone Encounter - Sol Bunn, TONIE - 05/11/2023 7:33 AM EST Patient called in stating that he was [facility] for [facility]. He stated that he put his jewelry in a baggie while having the testing done. When he got home, he noticed that his jewelry was missing. He is asking if anyone found anything. I did speak with Leticia who checked their lockers and nothing was found. Another tech stated that she did see him with a bag that had the jewelry in it. If something is found if someone can call him. documented in this encounter Plan of Treatment Upcoming Encounters Date Type Department Care Team (Late st Contact Info) Description 08/23/2023 9:00 AM EDT Office Visit [address] [place] [address] Caitie Schafer PA-C 200 [facility] [place] [address] 08/27/2023 9:30 AM EDT Office Visit Hematology/Oncology [facility] 200 [facility] [place] [phone] Janna Muñoz CRNP [address] [place] [address] 09/28/2023 12:00 PM EDT Office Visit [facility] 200 [facility] [place] [address] Efraín Zamudio III, MD [address] [place] [address] [place] [address] Scheduled Procedures Name Priority Associated Diagnoses Date/Ti [...] Documents on File Type Date Recorded Patient Beta Tester Expl anation Advance Directives and Living Will 11/03/2008 ADVANCE DIRECTIVE / LIVING WILL Advance Directives and Living Will 11/03/2008 ADVANCE DIRECTIVE / LIVING WILL Power of Data Specialist 11/03/2008 POWER OF A TTORNEY Power of Data Specialist 11/03/2008 POWER OF A TTORNEY Power of Data Specialist 11/03/2008 POWER OF A TTORNEY Care Teams Navy Airspace Officer Relationship Specialty Start Date End Date Efraín Zamudio III, MD 200 [place] [address] PCP - General Family Medicine 06/24/21 documented as of this encounter
--- OUTSIDE RECORDS SUMMARY | 2023-08-31 21:00 | External Medical Summary | Summary of Care ---
Author Name Unknown Organization [facility] Address [address] [place] [address] Phone [phone] Care Team Providers Care Science Faculty Member Name Role Phone Lizz BUI MD, Efraín León Primary Care Provider [phone] Reason for Visit * Reason Comments eRx-Medication Refill Encounter Details Date Type Department Care Team (Late st Contact Info) Description 08/06/2023 Refill Family Practice [facility] 200 [facility] [place] [address] Efraín Zamudio III, MD [address] [place] [address] Allergies Active Allergy Reactions Criticality Noted Date [...] as of this encounter (statuses as of 08/06/2023) Medications Medication Sig Dispensed Refills Start Date [...] times daily 200 Each 11 04/07/2023 Active [employer] Verio w/Device KitIndications:Diabe tic polyneuropathy associated with type 2 diabetes mellitus (HCC) Use as directed E11.9 1 Kit 0 04/09/2023 Active [employer] Verio In Vitro Strip (Glucose Blood)Indications:Di abetic [...] A1c goal of less than 7.5% ([facility]) Inject 1 mg under the skin once a week. 3 mL 6 07/03/2023 Active Zolpidem Tartrate 10 MG Oral Tablet (Ambien) Take 1 Tablet by mouth at bedtime as needed for Sleep. 30 Tablet 0 07/06/2023 Active ProAir HFA 108 (90 Base) MCG/ACT [...] as of this encounter (statuses as of 08/06/2023) Active Problems Problem Noted Date Diagnosed Date [...] as of this encounter (statuses as of 08/06/2023) Resolved Problems Problem Noted Date Diagnosed Date [...] as of this encounter (statuses as of 08/06/2023) Immunizations Name Administration Dates Next Due COVID-19 [...] on file documented as of this encounter Plan of Treatment Upcoming Encounters Date Type Department Care Team (Late st Contact Info) Description 08/23/2023 9:00 AM EDT Office Visit [facility] [address] [place] [address] [address] Caitie Schafer PA-C [address] [place] [address] 08/27/2023 9:30 AM EDT Office Visit Hematology/Oncology [place] [address] [facility] [place] [address] Janna Muñoz CRNP [address] [place] [address] 09/28/2023 12:00 PM EDT Office Visit [facility] [employer] [address] [facility] [place] [address] Efraín Zamudio III, MD 200 [facility] [place] [address] Scheduled Procedures Name Priority Associated Diagnoses Date/Ti [...] Documents on File Type Date Recorded Patient Linecasting Machine Keyboard Operator Expl anation Advance Directives and Living Will 11/03/2008 ADVANCE DIRECTIVE / LIVING WILL Advance Directives and Living Will 11/03/2008 ADVANCE DIRECTIVE / LIVING WILL Power of Sales Order Clerk 11/03/2008 POWER OF A TTORNEY Power of Sales Order Clerk 11/03/2008 POWER OF A TTORNEY Power of Sales Order Clerk 11/03/2008 POWER OF A TTORNEY Care Teams Science Faculty Member Relationship Specialty Start Date End Date Efraín Zamudio III, MD 200 [facility] [place] [address] PCP - General Family Medicine 06/24/21 documented as of this encounter
--- OUTSIDE RECORDS SUMMARY | 2023-08-31 21:01 | External Medical Summary | Summary of Care ---
Author Name Unknown Organization [facility] Address [address] [place] [address] Phone [phone] Care Team Providers Care Field Account Manager Name Role Phone Lizz BUI MD, Efraín León Primary Care Provider [phone] Reason for Visit * Reason Onset Date Comments Med Request 07/13/2023 Encounter Details Date Type Department Care Team (Late st Contact Info) Description 07/13/2023 Telephone Access Center, [place] [address] [facility] *DO NOT REMOVE THIS DEPARTMENT* [place] [address] Services, Scheduling [address] [place] [address] Med Request Allergies Active Allergy Reactions Criticality [...] as of this encounter (statuses as of 07/24/2023) Medications Medication Sig Dispensed Refills Start Date [...] times daily 200 Each 11 04/07/2023 Active [employer] Verio w/Device KitIndications:Diab etic polyneuropathy associated with type 2 diabetes mellitus (HCC) Use as directed E11.9 1 Kit 0 04/09/2023 Active [employer] Verio In Vitro Strip (Glucose Blood)Indications:D iabetic polyneuropathy associated with type 2 diabetes mellitus (HCC) Test five times daily for use with multiple daily insulin injections-befor e all meals, snacks, exercise, and one to two times during the night. Dx: E11.9 200 Strip 11 04/09/2023 Active [employer] UltraSoft LancetsIndications: Diabetic polyneuropathy associated with type 2 diabetes mellitus ([facility]) Use as directed 5 times daily 200 [...] goal of less than 7.5% ([facility]) Inject 1 mg under the skin once a week. 3 mL 6 07/03/2023 Active Zolpidem Tartrate 10 MG Oral Tablet (Ambien) Take 1 Tablet by mouth at bedtime as needed for Sleep. 30 Tablet 0 07/06/2023 Active traZODone HCl 50 MG Oral Tablet (Desyrel) Take one and half tablets at bedtime 45 Tablet 2 07/06/2023 Active ProAir HFA 108 (90 Base) [...] the day. 30 Capsule 11 07/11/2023 Active Ibuprofen 600 MG Oral Tablet (Motrin) Take 1 Tablet by mouth every 8 hours as needed (Headache). 24 Tablet 3 07/13/2023 Active Diclofenac Sodium 1 % External Gel (Voltaren) Apply topically to affected area 4 times a day. 2 grams/ dose Apply to knee as needed for pain 100 g 1 07/13/2023 Active Diclofenac Sodium 1 % External Gel (Voltaren) Apply topically to affected area 4 times a day. 2 grams/ dose Apply to knee as needed for pain 100 g 1 04/09/2023 Discontinu ed(Refill) documented as of this encounter (statuses as of 07/24/2023) Active Problems Problem Noted Date Diagnosed Date [...] as of this encounter (statuses as of 07/24/2023) Resolved Problems Problem Noted Date Diagnosed Date [...] as of this encounter (statuses as of 07/24/2023) Immunizations Name Administration Dates Next Due COVID-19 [...] Notes * Telephone Encounter - Ronda Morales, commodities requirements analyst - 07/24/2023 2:34 PM EDT Pt calling to request Diclofenac Gell. Informed pt that RX is available at their pharmacy. Pt verbalized understanding and stated they will check with their pharmacy regarding this medication. Thank you, Ronda Morales, [employer] [facility] [facility] ([facility]) 07/24/2023,2:34 PM * Telephone Encounter - Kellie Lyons LPN - 07/13/2023 11:58 AM EDT Ibuprofen was already sent, looking for voltaren gel also to be reordered. * Telephone Encounter - Vilma Mckeon OSA - 07/13/2023 8:04 AM EDT @MEDREQUEST@ Pt calling on a refill for Ibuprofen 600 MG Oral Tablet (Motrin) Voltrain Tropical Cream Please uses [facility] pharmacy. Does pt need a written rx? N/a Pt needs rx for n/a day with n/a refills. Other instructions: Pt requests a tavares if the script can get over this morning the pharmacy will beable to still deliver today documented in this encounter Plan of Treatment Upcoming Encounters Date Type Department Care Team (Late st Contact Info) Description 08/02/2023 9:00 AM EDT Office Visit Hematology/Oncology [facility] [address] [address] [address] Janna Muñoz CRNP [address] [place] [address] [place] [address] 09/28/2023 12:00 PM EDT Office Visit [facility] [place] [address] [place] [address] [address] [place] MD 200 [facility] [place] [address] 10/15/2023 1:00 PM EDT Office Visit Family Practice [facility] 200 [facility] [place] [address] Efraín Zamudio III, MD 200 [facility] [place] [address] Scheduled Procedures Name Priority Associated Diagnoses Date/Ti [...] Documents on File Type Date Recorded Patient Insurance Loss Control Surveyor Expl anation Advance Directives and Living Will 11/03/2008 ADVANCE DIRECTIVE / LIVING WILL Advance Directives and Living Will 11/03/2008 ADVANCE DIRECTIVE / LIVING WILL Power of Carding Machine Operator 11/03/2008 POWER OF A TTORNEY Power of Carding Machine Operator 11/03/2008 POWER OF A TTORNEY Power of Carding Machine Operator 11/03/2008 POWER OF A TTORNEY Care Teams Field Account Manager Relationship Specialty Start Date End Date Efraín Zamudio III, MD [address] [place] [address] PCP - General Family Medicine 06/24/21 documented as of this encounter
--- OUTSIDE RECORDS SUMMARY | 2023-08-31 21:01 | External Medical Summary ---
Author Name Unknown Address Unknown Organization K01:LABORATORY [facility] - [address] [place] [address] Laboratory Report Ordering Provider Test Date Status ANTELMO JONES 07/16/2023 12:16:31 Final Observation Date Value Abnormality Reference (Units ) Status Vitamin B12 07/16/2023 12:16:31 [id number] (pg/mL) Final Performing Location [facility] - [address] [place] [address]
--- OUTSIDE RECORDS SUMMARY | 2023-08-31 21:01 | External Medical Summary | Summary of Care ---
Author Name Unknown Organization [facility] Address [address] [place] [address] Phone [phone] Care Team Providers Care Weight Inspector Name Role Phone Lizz BUI MD, Efraín León Primary Care Provider [phone] Reason for Visit * Reason Onset Date Comments Med Request 07/13/2023 Encounter Details Date Type Department Care Team (Late st Contact Info) Description 07/13/2023 Telephone Access Center, [place] [address] [facility] *DO NOT REMOVE THIS DEPARTMENT* [place] [address] Services, Scheduling [address] [place] [address] Med Request Allergies Active Allergy Reactions Criticality [...] as of this encounter (statuses as of 07/13/2023) Medications Medication Sig Dispensed Refills Start Date [...] times daily 200 Each 11 04/07/2023 Active [employer] Verio w/Device KitIndications:Diab etic polyneuropathy associated with type 2 diabetes mellitus (HCC) Use as directed E11.9 1 Kit 0 04/09/2023 Active [employer] Verio In Vitro Strip (Glucose Blood)Indications:D iabetic polyneuropathy associated with type 2 diabetes mellitus (HCC) Test five times daily for use with multiple daily insulin injections-befor e all meals, snacks, exercise, and one to two times during the night. Dx: E11.9 200 Strip 11 04/09/2023 Active [employer] UltraSoft LancetsIndications: Diabetic polyneuropathy associated with type 2 diabetes mellitus ([facility]) Use as directed 5 times daily 200 [...] goal of less than 7.5% ([facility]) Inject 1 mg under the skin [...] as of this encounter (statuses as of 07/13/2023) Active Problems Problem Noted Date Diagnosed Date [...] as of this encounter (statuses as of 07/13/2023) Resolved Problems Problem Noted Date Diagnosed Date [...] as of this encounter (statuses as of 07/13/2023) Immunizations Name Administration Dates Next Due COVID-19 [...] encounter Miscellaneous Notes * Telephone Encounter - Kellie Lyons LPN - 07/13/2023 11:58 AM EDT Ibuprofen was already sent, looking for voltaren gel also to be reordered. * Telephone Encounter - Vilma Mckeon OSA - 07/13/2023 8:04 AM EDT @MEDREQUEST@ Pt calling on a refill for Ibuprofen 600 MG Oral Tablet (Motrin) Voltrain Tropical Cream Please uses [facility] pharmacy. Does pt need a written rx? N/a Pt needs rx for n/a day with n/a refills. Other instructions: Pt requests a tavares if the script can get over this morning the pharmacy will beable to still deliver today documented in this encounter Plan of Treatment Upcoming Encounters Date Type Department Care Team (Late st Contact Info) Description 07/16/2023 11:40 AM EDT Office [place] [address] [place] [address] Efraín Zamudio III, MD [address] [place] [address] [place] [address] 08/02/2023 9:00 AM EDT Office Visit Hematology/Oncology [address] [place] [phone] Janna Muñoz CRNP [address] [place] [address] 09/28/2023 12:00 PM EDT Office Visit [address] [place] [address] Efraín Zamudio III, MD [address] [place] [address] [place] [address] Scheduled Procedures Name Priority Associated Diagnoses Date/Ti me COLONOSCOPY FLEXIBLE PROXIMAL DIAGNOSTIC Recall History of colon polyps Health Maintenance Due Date Last Done Comments Alpha-1 Antitrypsin 1980 *COPD SEVERITY VERIFIED BY PFT 08/31/2017 COLONOSCOPY-EVERY 5 YRS AGES 18-100 08/21/2019 08/20/2014, 08/20/2014 Depression, Most Recent Score >= 10 (will fire each visit until score < 10) 06/17/2020 06/16/2020 COVID-19 Vaccine (3 - Moderna risk series) 07/14/2020 06/16/2020, 05/19/2020 Zoster Vaccines (2 of 2) 08/23/2022 06/28/2022, 11/24 HbA1c 06/30/2023 12/29/2022, 04/0 07/2022, 04/14/2021, Additional history exists Albumin/Creatinine Ratio 07/12/2023 023, 03/13/2019, 01/03/2018, Additional history exists Diabetic Eye Exam 12/30/2023 12/29/2022, , 02/25/2018, Additional history exists Diabetic Foot Exam 12/30/2023 12/29/2022, 0 06/16/2020, 09/18/2018, Additional history exists GFR 03/14/2024 03/14/2023, 01/24, 12/29/2022, Additional history exists O2 ASSESSMENT COMPLETED IN PAST YEAR FOR COPD 06/27/2024 06/28/2023 Pneumococcal Vaccine: Pediatrics (0 to 5 Years) and At-Risk Patients (6 to 64 Years) (4 of 4 - PPSV23 or PCV20) 08/02/2027 07/13/2021, 01/09/2020, 12/30/2008 Lipid Panel 02/08/2028 02/07/2023, 04/0 07/2022, 03/10/2021, Additional history exists DTaP,Tdap,and Td Vaccines (3 - Td or Tdap) 07/12/2032 07/12/2022, 05/11/2008 Hepatitis B Completed 06/02/2014, 12/24, 12/03/2013 Influenza Vaccine (FLU shot) Completed 08/2022, 06/28/2022, 12/27/2020, Additional history exists GARDASIL-HPV IMMUNIZATION SERIES Aged Out No longer eligible based on patient's age to complete this topic MENINGOCOCCAL (MENACTRA/MENVEO) Aged Out No longer eligible based on patient's age to complete this topic documented as of this encounter Medical Devices Not on filedocumented as of this encounter Advance Directives Documents on File Type Date Recorded Patient Outside Maintenance Worker Expl anation Advance Directives and Living Will 11/03/2008 ADVANCE DIRECTIVE / LIVING WILL Advance Directives and Living Will 11/03/2008 ADVANCE DIRECTIVE / LIVING WILL Power of Farmer Vegetable 11/03/2008 POWER OF A TTORNEY Power of Farmer Vegetable 11/03/2008 POWER OF A TTORNEY Power of Farmer Vegetable 11/03/2008 POWER OF A TTORNEY Care Teams Weight Inspector Relationship Specialty Start Date End Date Efraín Zamudio III, MD [address] [place] [address] PCP - General Family Medicine 06/24/21 documented as of this encounter
--- OUTSIDE RECORDS SUMMARY | 2023-08-31 21:01 | External Medical Summary ---
Author Name Unknown Address Unknown Organization K01:[facility]AT[facility] [place] [address] [place] [address] Laboratory Report Ordering Provider Test Date Status DARIA VELÁSQUEZ III 07/16/2023 12:16:31 Final Observation Date Value Abnormality Reference (Units ) Status TSH 07/16/2023 12:16:31 2.46 0.27-4.20 (uIU/mL) Final Performing Location LABORATORY [facility] - [address] [place] [address]
--- OUTSIDE RECORDS SUMMARY | 2023-08-31 21:01 | External Medical Summary ---
Author Name Unknown Address Unknown Organization K01:LABORATORY [facility] - [address] [place] [address] Laboratory Report Ordering Provider Test Date Status DARIA VELÁSQUEZ III 07/16/2023 12:16:31 Final Observation Date Value Abnormality Reference (Units ) Status HbA1C 07/16/2023 12:16:31 6.8 Above high normal 4. 0-5.6 (%) Final The use of HbA1c to monitor glycemic status is based on normal hemoglobin and HbA composition. This test should not be used in patients with abnormal hemoglobin that affects the half life of the red blood cell or the in vivo glycation rates. Glucose, estimated average 07/16/2023 12:16:31 148 Above high normal <126 (mg/dL) Tysno dior Performing Location LABORATORY [facility] - [address] [place] [address]
--- OUTSIDE RECORDS SUMMARY | 2023-08-31 21:01 | External Medical Summary | Summary of Care ---
Author Name Unknown Organization [facility] Address [address] [place] [address] Phone [phone] Care Team Providers Care Bicycle Technician Name Role Phone Lizz BUI MD, Efraín León Primary Care Provider [phone] Reason for Visit * Reason Onset Date Comments Advice 04/20/2023 Swollen left eye FYI 04/20/2023 Encounter Details Date Type Department Care Team (Late st Contact Info) Description 04/20/2023 Telephone Family Practice [facility] 200 [place] [address] Efraín Zamudio III, MD 200 [facility] [address] Advice (Swollen left eye); FYI Allergies Active Allergy Reactions Criticality Noted Date [...] as of this encounter (statuses as of 07/20/2023) Medications Medication Sig Dispensed Refills Start Date [...] times daily 200 Each 11 04/07/2023 Active [employer] w/Device KitIndications:Diabet ic polyneuropathy associated with type 2 diabetes mellitus (HCC) Use as directed E11.9 1 Kit 0 04/09/2023 Active [employer] In Vitro Strip (Glucose Blood)Indications:Alondra betic polyneuropathy [...] as of this encounter (statuses as of 07/20/2023) Active Problems Problem Noted Date Diagnosed Date [...] as of this encounter (statuses as of 07/20/2023) Resolved Problems Problem Noted Date Diagnosed Date [...] as of this encounter (statuses as of 07/20/2023) Immunizations Name Administration Dates Next Due COVID-19 [...] encounter Miscellaneous Notes * Telephone Encounter - Madeline Ernandez LPN - 04/26/2023 4:03 PM EST Patient has an upcoming appt. At [facility] with Dr. Turner. * Telephone Encounter - Efraín Zamudio III, MD - 04/23/2023 2:26 PM EST Who is his eye doctor * Telephone Encounter - Madeline Ernandez LPN - 04/23/2023 12:37 PM EST Patient called. He noticed his Left eye is slowly closing up. He started noticing it last week. He denies that there is any infection. Denies redness or swelling. Has no other symptoms, just the drooping eyelid. Informed he would need an appt. To have it checked. Said his brother had a drooping eyelid and he had to have surgery on it because it eventually closed. He wants to keep an eye on it. Ifit closes more, he will call and make an appt to see Dr. Zamudio. * Telephone Encounter - Stuart Seay OSA - 04/20/2023 10:36 AM EST Patient calling in because he states he noticed his left eye has been half way shut for the last few days, no other symptoms associated. Did not want to schedule appt. documented in this encounter Plan of Treatment Upcoming Encounters Date Type Department Care Team (Late st Contact Info) Description 08/02/2023 9:00 AM EDT Office Visit Hematology/Oncology [facility] [address] [place] [address] Janna Muñoz CRNP [address] [facility] [place] [address] 09/28/2023 12:00 PM EDT Office Visit Family Practice [facility] [address] [place] [address] [address] Efraín Zamudio III, MD [address] [place] [address] [address] 10/15/2023 1:00 PM EDT Office Visit Family Practice [facility] [place] 200 [facility] [place] [address] Efraín Zamudio III, MD [address] [place] [address] [address] Scheduled Procedures Name Priority Associated Diagnoses Date/Ti [...] Documents on File Type Date Recorded Patient Churner Expl anation Advance Directives and Living Will 11/03/2008 ADVANCE DIRECTIVE / LIVING WILL Advance Directives and Living Will 11/03/2008 ADVANCE DIRECTIVE / LIVING WILL Power of Hand Trimmer 11/03/2008 POWER OF A TTORNEY Power of Hand Trimmer 11/03/2008 POWER OF A TTORNEY Power of Hand Trimmer 11/03/2008 POWER OF A TTORNEY Care Teams Bicycle Technician Relationship Specialty Start Date End Date Efraín Zamudio III, MD 200 [facility] [address] PCP - General Family Medicine 06/24/21 documented as of this encounter
--- OUTSIDE RECORDS SUMMARY | 2023-08-31 21:01 | External Medical Summary | Summary of Care ---
Author Name Unknown Organization [facility] Address [address] [place] [address] Phone [phone] Care Team Providers Care Storage Manager Name Role Phone Lizz BUI MD, Didier León Primary Care Provider [phone] Reason for Visit * Reason Comments eRx-Medication Refill Encounter Details Date Type Department Care Team (Late st Contact Info) Description 2023 Refill Family Practice [facility] 200 [facility] [place] [address] Didier Huff III, MD [address] [place] [address] Allergies Active Allergy Reactions Criticality Noted Date [...] as of this encounter (statuses as of 08/02/2023) Medications Medication Sig Dispensed Refills Start Date End Date Status Silver sulfADIAZINE 1 % External Cream (Silvadene)Indicati ons:Wound of left foot,Osteomyelitis of toe (HCC) Apply topically to affected area daily. Apply to foot. 50 g 1 3 Active Additional Information Patient not taking.Reported on 06/28/2023 Gauze Pads 4"X4" PadIndications:Woun d of left foot,Osteomyelitis of toe (HCC) Apply to the foot daily with silvadene cream. 100 Each 5 3 Active Rosuvastatin Calcium 40 MG Oral Tablet (Crestor)Indication s:Dyslipidemia, goal LDL below 100 Take 1 Tablet by mouth at bedtime. 90 Tablet 1 3 Active Rizatriptan Benzoate 10 MG Oral Tablet (Maxalt) TAKE 1 TABLET BY MOUTH NEEDED FOR MIGRAINE. CAN REPEAT DOSE IN 1 HOUR IF NEEDED. MAXIMUM DOSE OF 20mg PER DAY. 10 Tablet 0 3 Active Additional Information Patient not taking.Reported on 06/28/2023 Ketorolac Tromethamine 10 MG Oral Tablet (Toradol) Take 1 Tablet by mouth 4 times a day as needed for Pain, Severe. Do not take for longer than 5 days 20 Tablet 0 3 Active Additional Information Patient not taking.Reported on 06/28/2023 oxyCODONE HCl 5 MG Oral Tablet (Oxy IR) 0 3 Active LancetsIndications: Diabetic polyneuropathy associated with type 2 diabetes mellitus (HCC) Use as directed 5 times daily 200 Each 11 4 Active OVGuideTouch Verio w/Device KitIndications:Diab etic polyneuropathy associated with type 2 diabetes mellitus (HCC) Use as directed E11.9 1 Kit 0 4 Active OVGuideTouch Verio In Vitro Strip (Glucose Blood)Indications:D iabetic polyneuropathy associated with type 2 diabetes mellitus (HCC) Test five times daily for use with multiple daily insulin injections-befo re all meals, snacks, exercise, and one to two times during the night. Dx: E11.9 200 Strip 11 4 Active OneTouch UltraSoft LancetsIndications: Diabetic polyneuropathy associated with type 2 diabetes mellitus (HCC) Use as directed 5 times daily 200 Each 11 4 Active Accu-Chek Guide w/Device Kit Use as directed. 1 Kit 0 4 Active Accu-Chek Guide In Vitro Strip (Glucose Blood) Test five times daily for use with multiple daily insulin injections-befo re all meals, snacks, exercise, and one to two times during the night. Dx: E11.9 100 Strip 3 4 Active LORazepam 0.5 MG Oral Tablet (Ativan) Take 1 Tablet by mouth every 8 hours as needed for Anxiety. 21 Tablet 0 4 Active Gabapentin 800 MG Oral Tablet (Neurontin) Take 1 Tablet by mouth in the morning and 1 Tablet at noon and 1 Tablet before bedtime. 90 Tablet 5 4 Active Gabapentin 800 MG Oral Tablet (Neurontin) Take 1 Tablet by mouth in the morning and 1 Tablet at noon and 1 Tablet before bedtime. 90 Tablet 4 4 Active Ferrous Sulfate 325 (65 Fe) MG Oral Tablet (Feosol) Take 1 Tablet by mouth in the morning and 1 Tablet before bedtime. 60 Tablet 11 4 Active Docusate Sodium 100 MG Oral Capsule (Colace) Take 1 Capsule by mouth 2 times a day as needed for Constipation. 60 Capsule 11 4 Active Ozempic (1 MG/DOSE) 4 MG/3ML Subcutaneous Solution Pen-injector (Semaglutide (1 MG/DOSE))Indication s:Type 2 diabetes mellitus with hemoglobin A1c goal of less than 7.5% ([facility]) Inject 1 mg under the skin once a week. 3 mL 6 4 Active Zolpidem Tartrate 10 MG Oral Tablet (Ambien) Take 1 Tablet by mouth at bedtime as needed for Sleep. 30 Tablet 0 4 Active ProAir HFA 108 (90 Base) MCG/ACT Inhalation Aerosol Solution Inhale 2 Puffs by mouth in the morning and 2 Puffs at noon and 2 Puffs in the evening and 2 Puffs before bedtime. 8.5 g 1 4 Active Esomeprazole Magnesium 40 MG Oral Capsule Delayed Release (NexIUM) Take 1 Capsule by mouth in the morning. 1 hour before the first meal of the day. 30 Capsule 11 4 Active Diclofenac Sodium 1 % External Gel (Voltaren) Apply topically to affected area 4 times a day. 2 grams/ dose Apply to knee as needed for pain 100 g 1 4 Active traZODone HCl 50 MG Oral Tablet (Desyrel) 2 tablets at bedtime 60 Tablet 2 4 Active Ibuprofen 600 MG Oral Tablet (Motrin) Take 1 Tablet by mouth every 8 hours as needed (Headache). 24 Tablet 3 4 Active Ibuprofen 600 MG Oral Tablet (Motrin) Take 1 Tablet by mouth every 8 hours as needed (Headache). 24 Tablet 3 4 08/02/19 24 Discontinued documented as of this encounter (statuses as of 08/02/2023) Active Problems Problem Noted Date Diagnosed Date [...] as of this encounter (statuses as of 08/02/2023) Resolved Problems Problem Noted Date Diagnosed Date [...] as of this encounter (statuses as of 08/02/2023) Immunizations Name Administration Dates Next Due COVID-19 [...] encounter Miscellaneous Notes * Telephone Encounter - Didier Huff III, MD - 08/02/2023 11:36 AM EDTSigned Prescriptions: Disp Refills Ibuprofen 600 MG Oral Tablet (Motrin) 24 Tab*3 Sig: Take 1 Tablet by mouth every 8 hours as needed (Headache).Authorizing Provider: DIDIRE HUFF III * Telephone Encounter - Radha Plaza [facility] - 08/02/2023 10:48 AM EDT Pending Prescriptions: Disp Refills Ibuprofen 600 MG Oral Tablet [Pharmacy Med*24 Tab*3 Sig: Take 1 Tablet by mouth every 8 hours as needed (Headache). * Telephone Encounter - Radha Plaza [facility] - 08/02/2023 10:48 AM EDT Please review refill request and approve if continuation of therapy is appropriate. Pending Prescriptions: Disp Refills Ibuprofen 600 MG Oral Tablet (Motrin) [Ph*24 Tab*3 Sig: Take 1 Tablet by mouth every 8 hours as needed (Headache). Thank you, Radha Plaza [facility] Clinical Pharmacist [facility] ([facility]) (formerly Telepharmacy) 08/02/23 10:48 AM [phone] * Telephone Encounter - Radha Plaza [facility] - 08/02/2023 10:45 AM EDT Did you pend patient's preferred pharmacy and medication before forwarding?yes Pharmacy: [id number] Pending Prescriptions: Disp Refills Ibuprofen 600 MG Oral Tablet (Motrin) [Ph*24 Tab*3 Sig: Take 1 Tablet by mouth every 8 hours as needed (Headache). Last Visit: 07/16/2023 (in office), 07/15/2019 (telemedicine) Next Visit: 08/23/2023 If no future appointments scheduled, and last appointment is greater than a year ago, please schedule patient for a follow-up appointment Last date the medication was ordered: 07/13/2023 Is this request for a controlled substance?No Urine Drug Screen:No results found. However, due [...] Description 08/23/2023 9:00 AM EDT Office Visit [facility] 200 [facility] [place], [place] [address] Caitie Schafer PA-C 200 [facility] [place] [address] 08/27/2023 9:30 AM EDT Office Visit Hematology/Oncology [facility] 200 [facility] [place] [phone] Janna Muñoz CRNP 400 [facility] [place] [address] 09/28/2023 12:00 PM EDT Office Visit [facility] 200 [facility] [place] [address] Didier Huff III, MD 200 [facility] [place] [address] Scheduled Procedures Name Priority Associated Diagnoses Date/Ti [...] Documents on File Type Date Recorded Patient Center Medical And Lab Director Expl anation Advance Directives and Living Will 11/03/2008 ADVANCE DIRECTIVE / LIVING WILL Advance Directives and Living Will 11/03/2008 ADVANCE DIRECTIVE / LIVING WILL Power of Cell Attendant Helper 11/03/2008 POWER OF A TTORNEY Power of Cell Attendant Helper 11/03/2008 POWER OF A TTORNEY Power of Cell Attendant Helper 11/03/2008 POWER OF A TTORNEY Care Teams Storage Manager Relationship Specialty Start Date End Date Didier Huff III, MD [address] [place] [address], [place] [address] PCP - General Family Medicine 06/24/21 documented as of this encounter
--- OUTSIDE RECORDS SUMMARY | 2023-08-31 21:01 | External Medical Summary | Summary of Care ---
Author Name Unknown Organization [facility] Address [address] [place] [address] Phone [phone] Care Team Providers Care Flux Core Welder Name Role Phone Lizz BUI MD, Efraín León Primary Care Provider [phone] Reason for Visit * Reason Onset Date Comments Order Request 07/28/2023 Encounter Details Date Type Department Care Team (Late st Contact Info) Description 07/28/2023 Telephone Family Practice [facility] 200 [facility] [place] [address] Efraín Zamudio III, MD 200 [place] [address] Order Request Allergies Active Allergy Reactions Criticality Noted [...] as of this encounter (statuses as of 07/30/2023) Medications Medication Sig Dispensed Refills Start Date [...] times daily 200 Each 11 04/07/2023 Active WaitsupTouch Verio w/Device KitIndications:Diabe tic polyneuropathy associated with type 2 diabetes mellitus (HCC) Use as directed E11.9 1 Kit 0 04/09/2023 Active WaitsupTouch Verio In Vitro Strip (Glucose Blood)Indications:Di abetic [...] goal of less than 7.5% ([facility]) Inject 1 mg under the skin once [...] at bedtime 60 Tablet 2 07/27/2023 Active documented as of this encounter (statuses as of 07/30/2023) Active Problems Problem Noted Date Diagnosed Date [...] as of this encounter (statuses as of 07/30/2023) Resolved Problems Problem Noted Date Diagnosed Date [...] as of this encounter (statuses as of 07/30/2023) Immunizations Name Administration Dates Next Due COVID-19 [...] Telephone Encounter - Nina Cunningham RN - 07/30/2023 11:16 AM EDT Pt will get shingles at 530 appt. * Telephone Encounter - FernandesEwa Ervin OSA - 07/28/2023 8:26 AM EDT An order was requested for this patient. Name of Requesting Provider: Samm Zamudio Order Requested: Shingles Vaccine Diagnosis/Reason for Request: Due for shingles If order request is for Mammogram: Is the patient having any breast symptoms? N/A Is there a chance of ? N/A Has the patient had any breast problems in the past? NA What location AND department does the patient wish to have their order completed at? [facility] Fax Number, if applicable: N/A If the caller is not a current patient, please advise the patient to call their current PCP to havethe order's prior to being seen in our office. The patient was informed that our providers would not order anything (medication, labs, etc.) prior to being seen. documented in this encounter Plan of Treatment Upcoming Encounters Date Type Department Care Team (Late st Contact Info) Description 08/02/2023 9:00 AM EDT Office Visit Hematology/Oncology [facility] [place] [address] [place] [phone] Janna Muñoz CRNP [address] [place] [address] 08/23/2023 9:00 AM EDT Office Visit [facility] [place] [address] [place] [address] Caitie Schafer PA-C [address] [place] [address] 09/28/2023 12:00 PM EDT Office Visit [facility] [place] [address] [place] [address] [address] Efraín Zamudio III, MD 200 [facility] [place] [facility] [place] [address] Scheduled Procedures Name Priority Associated Diagnoses Date/Ti [...] Documents on File Type Date Recorded Patient Fixture Builder Expl anation Advance Directives and Living Will 11/03/2008 ADVANCE DIRECTIVE / LIVING WILL Advance Directives and Living Will 11/03/2008 ADVANCE DIRECTIVE / LIVING WILL Power of Burling And Joining Supervisor 11/03/2008 POWER OF A TTORNEY Power of Burling And Joining Supervisor 11/03/2008 POWER OF A TTORNEY Power of Burling And Joining Supervisor 11/03/2008 POWER OF A TTORNEY Care Teams Flux Core Welder Relationship Specialty Start Date End Date Efraín Zamudio III, MD [address] [place] [address] PCP - General Family Medicine 06/24/21 documented as of this encounter
--- OUTSIDE RECORDS SUMMARY | 2023-08-31 21:01 | External Medical Summary | Summary of Care ---
Author Name Unknown Organization [facility] Address [address] [place] [address] Phone [phone] Care Team Providers Care Workers Compensation Claims Examiner Name Role Phone Lizz BUI MD, Didier León Primary Care Provider [phone] Reason for Visit * Reason Onset Date Comments Medication Refill 07/12/2023 Encounter Details Date Type Department Care Team (Late st Contact Info) Description 07/12/2023 Refill Family Practice [facility] 200 [facility] [place] [address] Didier Huff III, MD [address] [place] [address] Allergies Active Allergy Reactions Criticality Noted Date [...] 5 times daily 200 Each 04/07/2023 Active Yappe Verio w/Device KitIndications:Diab etic polyneuropathy associated with type 2 diabetes mellitus (HCC) Use as directed E11.9 1 Kit 0 04/09/2023 Active Kids360Touch Verio In Vitro Strip (Glucose Blood)Indications:D iabetic [...] 5 times daily 200 Each 04/09/2023 Active Diclofenac Sodium 1 % External Gel (Voltaren) Apply topically to affected area 4 times a day. 2 grams/ dose Apply to knee as needed for pain 100 g 1 04/09/2023 Active Accu-Chek Guide w/Device Kit Use [...] needed (Headache). 24 Tablet 3 07/13/2023 Active Ibuprofen 600 MG Oral Tablet (Motrin) Take 1 Tablet by mouth every 8 hours as needed (Headache). 24 Tablet 1 06/28/2023 4 Discontinu ed(Refill) documented as of this [...] encounter Miscellaneous Notes * Telephone Encounter - Maxim Ruggiero [facility] - 07/13/2023 11:04 AM EDTSigned Prescriptions: Disp Refills Ibuprofen 600 MG Oral Tablet (Motrin) 24 Tab*3 Sig: Take 1 Tablet by mouth every 8 hours as needed (Headache). Authorizing Provider: DIDIER HUFF III Ordering User: MAXIM RUGGIERO * Telephone Encounter - Natasha Hernandez, galley boy - 07/12/2023 5:48 PM EDT Did you pend patient's preferred pharmacy and medication before forwarding?yes Pharmacy: [facility] Pending Prescriptions: Disp Refills Ibuprofen 600 MG Oral Tablet (Motrin) 24 Tab*1 Sig: Take 1 Tablet by mouth every 8 hours as needed (Headache). Last Visit: 06/28/2023 (in office), 07/15/2019 (telemedicine) Next Visit: 07/16/2023 If no future appointments scheduled, and last appointment is greater than a year ago, please schedule patient for a follow-up appointment Last date the medication was ordered: Is this request for a controlled substance?No [...] AM POTASSIUM 4.2 01/09/2020 09:23 AM TSH 0.91 03/14/2023 08:47 AM TSH 0.843 01/03/2018 12:00 AM TSH 2.09 04/06/2014 09:52 AM LDLCALC 164 (H) 06/28/2022 09:14 AM LDLCALC 86 01/03/2018 12:00 AM LDLCALC UNINTERPRETABLE RESULT 01/06/2013 09:36 AM LDLDIRECT 50 02/07/2023 12:13 PM LDLDIRECT 175 (H) 11/23/2017 07:50 AM ALT 17 03/14/2023 08:47 AM ALT 16 01/09/2020 09:23 AM HGBA1C 7.2 (H) 12/29/2022 10:46 AM HGBA1C 7.3 (A) 04/14/2021 12:00 AM HGBA1C 6.5 (H) 12/04/2019 01:51 PM documented in this encounter Plan of Treatment Upcoming Encounters Date Type Department Care Team (Late st Contact Info) Description 07/16/2023 11:40 AM EDT Office Visit [place] [address] [place] [address] Didier Huff III, MD [address] [place], [place] [address] [address] 08/02/2023 9:00 AM EDT Office Visit Hematology/Oncology [place] [address] [address] [phone] Janna Muñoz CRNP [address] [place] [address] 09/28/2023 12:00 PM EDT Office Visit [facility] [address] [place] [address] [address] Didier Huff III, MD [facility] [place] [facility] [place] [address] Scheduled Procedures Name Priority Associated Diagnoses Date/Ti [...] Documents on File Type Date Recorded Patient Tool Adjuster Expl anation Advance Directives and Living Will 11/03/2008 ADVANCE DIRECTIVE / LIVING WILL Advance Directives and Living Will 11/03/2008 ADVANCE DIRECTIVE / LIVING WILL Power of Lathe Operator Contact Lens 11/03/2008 POWER OF A TTORNEY Power of Lathe Operator Contact Lens 11/03/2008 POWER OF A TTORNEY Power of Lathe Operator Contact Lens 11/03/2008 POWER OF A TTORNEY Care Teams Workers Compensation Claims Examiner Relationship Specialty Start Date End Date Didier Huff III, MD 200 [facility] [place] [address] PCP - General Family Medicine 06/24/21 documented as of this encounter
--- OUTSIDE RECORDS SUMMARY | 2023-08-31 21:01 | External Medical Summary | Summary of Care ---
Author Name Unknown Organization [facility] Address [address] [place] [address] Phone [phone] Care Team Providers Care Envelope Machine Adjuster Name Role Phone Lizz BUI MD, Efraín León Primary Care Provider [phone] Reason for Visit * Reason Comments Follow Up Patient would like t o discuss is his upcoming back surgery Encounter Details Date Type Department Care Team (Late st Contact Info) Description 07/16/2023 11:40 AM EDT Office Visit [facility] 200 [facility] [place] [address] Efraín Zamudio III, MD [facility] [address] 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)*; Type 2 diabetes mellitus with hemoglobin A1c goal of less than 7.5% (HCC); Spinal stenosis of lumbar region without neurogenic claudication Allergies Active Allergy Reactions Criticality Noted Date [...] as of this encounter (statuses as of 07/19/2023) Medications Medication Sig Dispensed Refills Start Date [...] times daily 200 Each 11 04/07/2023 Active [employer] VerWeatherista w/Device KitIndications:Diabe tic polyneuropathy associated with type 2 diabetes mellitus (HCC) Use as directed E11.9 1 Kit 0 04/09/2023 Active [employer] In Vitro Strip (Glucose Blood)Indications:Di abetic polyneuropathy [...] than 7.5% ([facility]) Inject 1 mg under the skin once [...] for pain 100 g 1 07/13/2023 Active documented as of this encounter (statuses as of 07/19/2023) Active Problems Problem Noted Date Diagnosed Date [...] as of this encounter (statuses as of 07/19/2023) Resolved Problems Problem Noted Date Diagnosed Date [...] as of this encounter (statuses as of 07/19/2023) Immunizations Name Administration Dates Next Due COVID-19 [...] Sign Reading Time Taken Comments Blood Pressure 118/78 07/16/2023 11:33 AM EDT Pulse 88 07/16/2023 11:33 AM EDT Temperature 36.2 C (97.1 F) 07/16/2023 1 1:33 AM EDT Respiratory Rate - - Oxygen Saturation 96% 07/16/2023 11: 33 AM EDT Inhaled Oxygen Concentration - - Weight 110.6 kg (243 lb 12.8 oz) 2023 11:33 AM EDT Height 193 cm (6' 3.98") 07/16/2023 11: 33 AM EDT Body Mass Index 29.69 07/16/2023 11:33 AM EDT documented in this encounter Progress Notes * Efraín Zamudio III, MD - 07/16/2023 11:57 AM EDT Dann Carcamo is a 62 year old male. Chief Complaint Patient presents with Follow Up Patient would like to discuss is his upcoming back surgery HPI: Chronic back problems spinal stenosis moderate at L2-3 degenerative disc disease anterolisthesis L4 on 5 diabetes mellitus needs lab work will be seeing spinal surgery wishes this done up at [facility] no bleeding urine or bowels denies chest pain shortness of breath PMH: Patient Active Problem List Diagnosis Code Esophageal reflux K21.9 Spinal stenosis of lumbar region without neurogenic claudication M48.061 DYSLIPIDEMIA, GOAL LDL BELOW 100 E78.5 Tobacco use disorder F17.200 Diabetic polyneuropathy ([facility]) E11.42 MEDICATION USE AGREEMENT [id number] Postlaminectomy syndrome M96.1 HTN, goal below 140/90 I10 COPD, severity to be determined ([facility]) J44.9 Anxiety and depression F41.9, F32.A 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) E11.9, Z79.4 Brain metastasis C79.31 Small cell lung cancer (HCC) C34.90 Major depressive disorder, recurrent episode, moderate ([facility]) F33.1 Chronic back pain M54.9, G89.29 Laceration of toe S91.119A Tenosynovitis of left foot M65.9 Atrial fibrillation (HCC) I48.91 Amputation of toe of right foot ([facility]) S98.131A Type 2 diabetes mellitus with hemoglobin A1c goal of less than 7.5% ([facility]) E11.9 Current Outpatient Medications Medication Sig Dispense Refill Silver sulfADIAZINE 1 % External Cream (Silvadene) Apply topically to affected area daily. Apply tofoot. (Patient not taking: Reported on 06/28/2023) 50 g 1 Gauze Pads 4"X4" Pad Apply to the foot daily with silvadene cream. 100 Each 5 Rosuvastatin Calcium 40 MG Oral Tablet (Crestor) Take 1 Tablet by mouth at bedtime. 90 Tablet 1 Rizatriptan Benzoate 10 MG Oral Tablet (Maxalt) TAKE 1 TABLET BY MOUTH NEEDED FOR MIGRAINE. CAN REPEAT DOSE IN 1 HOUR IF NEEDED. MAXIMUM DOSE OF 20mg PER DAY. (Patient not taking: Reported on 06/28/2023) 10 Tablet 0 Ketorolac Tromethamine 10 MG Oral Tablet (Toradol) Take 1 Tablet by mouth 4 times a day as needed for Pain, Severe. Do not take for longer than 5 days (Patient not taking: Reported on 06/28/2023) 20 Tablet 0 oxyCODONE HCl 5 MG Oral Tablet (Oxy IR) (Patient not taking: Reported on 03/14/2023) Lancets Use as directed 5 times daily 200 Each 11 OneTouch Verio w/Device Kit Use as directed E11.9 1 Kit 0 [employer] Verio In Vitro Strip (Glucose Blood) Test five times daily for use with multiple daily insulin injections-before all meals, snacks, exercise, and one to two times during the night. Dx: E11.9200 Strip 11 OneTouch UltraSoft Lancets Use as directed 5 times daily 200 Each 11 Accu-Chek Guide w/Device Kit Use as directed. 1 Kit 0 Accu-Chek Guide In Vitro Strip (Glucose Blood) Test five times daily for use with multiple daily insulin injections-before all meals, snacks, exercise, and one to two times during the night. Dx: E11.9 100 Strip 3 LORazepam 0.5 MG Oral Tablet (Ativan) Take 1 Tablet by mouth every 8 hours as needed for Anxiety. 21 Tablet 0 Gabapentin 800 MG Oral Tablet (Neurontin) Take 1 Tablet by mouth in the morning and 1 Tablet at noon and 1 Tablet before bedtime. 90 Tablet 5 Gabapentin 800 MG Oral Tablet (Neurontin) Take 1 Tablet by mouth in the morning and 1 Tablet at noon and 1 Tablet before bedtime. 90 Tablet 4 Ferrous Sulfate 325 (65 Fe) MG Oral Tablet (Feosol) Take 1 Tablet by mouth in the morning and 1 Tablet before bedtime. 60 Tablet 11 Docusate Sodium 100 MG Oral Capsule (Colace) Take 1 Capsule by mouth 2 times a day as needed for Constipation. 60 Capsule 11 Ozempic (1 MG/DOSE) 4 MG/3ML Subcutaneous Solution Pen-injector (Semaglutide (1 MG/DOSE)) Inject 1 mg under the skin once a week. 3 mL 6 Zolpidem Tartrate 10 MG Oral Tablet (Ambien) Take 1 Tablet by mouth at bedtime as needed for Sleep.30 Tablet 0 traZODone HCl 50 MG Oral Tablet (Desyrel) Take one and half tablets at bedtime 45 Tablet 2 ProAir HFA 108 (90 Base) MCG/ACT Inhalation Aerosol Solution Inhale 2 Puffs by mouth in the morningand 2 Puffs at noon and 2 Puffs in the evening and 2 Puffs before bedtime. 8.5 g 1 Esomeprazole Magnesium 40 MG Oral Capsule Delayed Release (NexIUM) Take 1 Capsule by mouth in the morning. 1 hour before the first meal of the day. 30 Capsule 11 Ibuprofen 600 MG Oral Tablet (Motrin) Take 1 Tablet by mouth every 8 hours as needed (Headache). 24Tablet 3 Diclofenac Sodium 1 % External Gel (Voltaren) Apply topically to affected area 4 times a day. 2 grams/ dose Apply to knee as needed for pain 100 g 1 No current facility-administered medications for this visit. Review of patient's allergies indicates: Allergen Reactions Tizanidine Diarrhea Adhesive Tape Other reaction(s): "rips his skin off" Amoxicillin Atorvastatin Clindamycin Hcl Swelling, and feels like apple in throat Cymbalta [Duloxetine Hcl] Abdominal pain "I forget." Darvocet [Propoxyphene N-Acetaminophen] Dextromethorphan Escitalopram Insulin Aspart Metformin Mucinex [Guaifenesin Er] Other (Please comment) Patient said he had trouble breathing when he took this. Propoxyphene Sitagliptin Past Medical History: Diagnosis Date Body mass index (BMI) of 40.0 to 44.9 in adult ([facility]) 11/06/2017 Per Obesity protocol #1 - Brain metastasis 12/28/2017 Chronic back pain 11/22/2020 COPD, severity to be determined ([facility]) 08/28/2017 Diabetic polyneuropathy ([facility]) 09/07/2009 Dyslipidemia, goal LDL below 100 03/10/2009 Per Lipid Taxonomy. HTN, goal to be determined Pulmonary embolism (HCC) 03/12/2017 Small cell lung cancer (HCC) 12/28/2017 Spinal stenosis of lumbar region without neurogenic claudication 06/24/2008 Has had at least 4 surgeries on his back. Type 2 diabetes mellitus with hemoglobin A1c goal of less than 7.5% (HCC) 11/20/2017 Past Surgical History: Procedure Laterality Date COLONOSCOPY, DIAGNOSTIC (RECTUM) 08/20/2014 adenomatous & hyperplastic polyps, diverticulosis, repeat 5 yrs/COLONOSCOPY FLEXIBLE PROXIMAL DIAGNOSTIC performed by Nahid Santana MD at [facility] INCISION OF HEART SAC FOR DRAINAGE N/A 12/12/2019 pericardial drain placment performed [place] Eliud [place] [facility] [place] [facility] UMBILICAL HRNA 5 YRSOR MORE REDUCIBLE PROCEDURE - GENERAL 05/02/2021 Dr Nato Sun, incisional/ventral hernia SPINAL FIXATION, INTERNAL, BY WIRE 03/26/1997 4 lumbar spine operations Objective: The patient is a 62 year old male BP 118/78 | Pulse 88 | Temp 36.2 C (97.1 F) (Tympanic) | Ht 1.93 m (6' 3.98") | Wt 110.6 kg (243 lb 12.8 oz) | SpO2 96% | BMI 29.69 kg/m | BSA 2.44 m General: alert, healthy, and no distress Eye Exam: PERRLA, extraocular movements intact, conjunctiva are pink and non- injected, sclera clear Oropharynx: no exudate, no erythema, lips, buccal mucosa, and tongue normal, and mucous membranes are moist Heart: regular rate & rhythm, no murmur, and no gallops Lungs: lungs clear to auscultation Extremities: no clubbing, no cyanosis, trace edema bilaterally ASSESSMENT: E11.9,Z79.4 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) (primary encounter diagnosis) E11.9 Type 2 diabetes mellitus with hemoglobin A1c goal of less than 7.5% (HCC) M48.061 Spinal stenosis of lumbar region without neurogenic claudication PLAN: Copy of MRI printed out will get labs today Follow up in 3 month(s). Efraín Zamudio III, MD documented in this encounter Nursing Notes * Christoph Betts MED ASSIST - 07/16/2023 11:32 AM EDT Chief Complaint Patient presents with Follow Up Patient would like to discuss is his upcoming back surgery documented in this encounter Plan of Treatment Upcoming Encounters Date Type Department Care Team (Late st Contact Info) Description 08/02/2023 9:00 AM EDT Office Visit Hematology/Oncology [facility] [place] 200 [facility] [place] [phone] Janna Muñoz CRNP [address] [place] [address] 09/28/2023 12:00 PM EDT Office Visit [facility] [place] 200 [facility] [place] [address] Efraín Zamudio III, MD [address] [place] [address] [place] [address] 10/15/2023 1:00 PM EDT Office Visit [address] [place] [address] Efraín Zamudio III, MD 200 [facility] [place] [address] Scheduled Procedures Name Priority Associated Diagnoses Date/Ti [...] as of this encounter Visit Diagnoses Diagnosis 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)- Primary Type II or unspecified type diabetes mellitus without mention of complication, not stated as uncontrolled Type 2 diabetes mellitus with hemoglobin A1c goal of less than 7.5% (HCC) Spinal stenosis of lumbar region without neurogenic claudication Spinal stenosis, lumbar region, without neurogenic claudication documented in this encounter Advance Directives Documents on File Type Date Recorded Patient Volleyball Assistant Coach Expl anation Advance Directives and Living Will 11/03/2008 ADVANCE DIRECTIVE / LIVING WILL Advance Directives and Living Will 11/03/2008 ADVANCE DIRECTIVE / LIVING WILL Power of Registered Respiratory Technician 11/03/2008 POWER OF A TTORNEY Power of Registered Respiratory Technician 11/03/2008 POWER OF A TTORNEY Power of Registered Respiratory Technician 11/03/2008 POWER OF A TTORNEY Care Teams Envelope Machine Adjuster Relationship Specialty Start Date End Date Efraín Zamudio III, MD 200 [facility] [place] [address] PCP - General Family Medicine 06/24/21 documented as of this encounter
--- OUTSIDE RECORDS SUMMARY | 2023-08-31 21:01 | External Medical Summary | Summary of Care ---
Author Name Unknown Organization [facility] Address [address] [place] [address] Phone [phone] Care Team Providers Care Manager Resource Name Role Phone Lizz BUI MD, Didier León Primary Care Provider [phone] Reason for Visit * Reason Onset Date Comments Med Request 07/10/2023 Encounter Details Date Type Department Care Team (Late st Contact Info) Description 07/10/2023 Telephone Family Practice [facility] [address] [facility] [place] [address] Didier Huff III, MD [address] [place] [address] Med Request Allergies Active Allergy Reactions Criticality [...] as of this encounter (statuses as of 07/11/2023) Medications Medication Sig Dispensed Refills Start Date [...] 5 times daily 200 Each 04/07/2023 Active [employer] Verio w/Device KitIndications:Diab etic polyneuropathy associated with type 2 diabetes mellitus (HCC) Use as directed E11.9 1 Kit 0 04/09/2023 Active [employer] Verio In Vitro Strip (Glucose Blood)Indications:D iabetic [...] before bedtime. 90 Tablet 4 06/01/2023 Active Ibuprofen 600 MG Oral Tablet (Motrin) Take 1 Tablet by mouth every 8 hours as needed (Headache). 24 Tablet 1 06/28/2023 Active Ferrous Sulfate 325 (65 Fe) MG [...] hemoglobin A1c goal of less than 7.5% ([facility]) Inject 1 mg under the skin [...] the day. 30 Capsule 11 07/11/2023 Active Esomeprazole Magnesium 40 MG Oral Capsule Delayed Release (NexIUM) Take 1 Capsule by mouth in the morning. 1 hour before the first meal of the day. 30 Capsule 11 05/08/2023 Discontinu ed(Refill) documented as of this encounter (statuses as of 07/11/2023) Active Problems Problem Noted Date Diagnosed Date [...] as of this encounter (statuses as of 07/11/2023) Resolved Problems Problem Noted Date Diagnosed Date [...] as of this encounter (statuses as of 07/11/2023) Immunizations Name Administration Dates Next Due COVID-19 [...] encounter Miscellaneous Notes * Telephone Encounter - Melissa Ng OSA - 07/11/2023 3:38 PM EDT Pt has called back mentioned he do not use [facility] and was not able to see the Msg, Pt wants to confirmhis medication for Nexium. * Addendum Note - Didier Huff III, MD - 07/11/2023 1:41 PM EDTAddended by: DIDIER HUFF on: 07/11/2023 01:41 PM Modules accepted: Orders * Addendum Note - China Betts MED ASSIST - 07/10/2023 4:11 PM EDTAddended by: CHINA BETTS on: 07/10/2023 04:11 PM Modules accepted: Orders * Telephone Encounter - China Betts MED ASSIST - 07/10/2023 4:11 PM EDT Please see myg message. Thank you! Rx pended, if agreeable. * Telephone Encounter - Maris Harris OSA - 07/10/2023 2:31 PM EDT Pt is requesting an Rx for Nexium to be sent to [facility]. He is no longer using [facility]. * Telephone Encounter - China Betts MED ASSIST - 07/10/2023 1:27 PM EDT Patient would like a refill for his albuterol inhaler due to his history of lung cancer and due to summer. Script pended, if agreeable. Thank you! * Telephone Encounter - Ivy Shea OSA - 07/10/2023 8:16 AM EDT Spoke to pt calling requesting refill on albuterol inhaler voiced that its summer time and he has ahistory of lung cancer and needs this inhaler, please advise, thanks documented in this encounter Plan of Treatment Upcoming Encounters Date Type Department Care Team (Late st Contact Info) Description 07/16/2023 11:40 AM EDT Office Visit [address] [place] [address] Didier Huff III, MD [address] [place] [address] [place] [address] 08/02/2023 9:00 AM EDT Office Visit Hematology/Oncology [facility] [address] [facility] [place] [phone] Janna Muñoz CRNP 400 [place] [address] 09/28/2023 12:00 PM EDT Office Visit [facility] [address] [facility] [place] [address] Didier Huff III, MD [address] [place] [address] [place] [address] Scheduled Procedures Name Priority Associated Diagnoses Date/Ti [...] Documents on File Type Date Recorded Patient Sql Consultant Expl anation Advance Directives and Living Will 11/03/2008 ADVANCE DIRECTIVE / LIVING WILL Advance Directives and Living Will 11/03/2008 ADVANCE DIRECTIVE / LIVING WILL Power of Offset Press Assistant 11/03/2008 POWER OF A TTORNEY Power of Offset Press Assistant 11/03/2008 POWER OF A TTORNEY Power of Offset Press Assistant 11/03/2008 POWER OF A TTORNEY Care Teams Manager Resource Relationship Specialty Start Date End Date Didier Huff III, MD [address] [place] [address] PCP - General Family Medicine 06/24/21 documented as of this encounter
--- OUTSIDE RECORDS SUMMARY | 2023-08-31 21:01 | External Medical Summary | Summary of Care ---
Author Name Unknown Organization [facility] Address [address] [place] [address] Phone [phone] Care Team Providers Care Screw Machine Setter Name Role Phone Lizz BUI MD, Efraín León Primary Care Provider [phone] Reason for Visit * Reason Comments Outpatient Testing Encounter Details Date Type Department Care Team (Late st Contact Info) Description 07/16/2023 1:30 PM EDT Laboratory Laboratory [facility] [address] [place] [address] [facility] Lab [facility] 200 [facility] [place] [address] Encounter for long-term (current) use of medications; Diabetic polyneuropathy associated with type 2 diabetes mellitus (HCC) Allergies Active Allergy Reactions Criticality Noted Date [...] as of this encounter (statuses as of 07/16/2023) Medications Medication Sig Dispensed Refills Start Date [...] times daily 200 Each 11 04/07/2023 Active [employer] w/Device KitIndications:Diabe tic polyneuropathy associated with type 2 diabetes mellitus (HCC) Use as directed E11.9 1 Kit 0 04/09/2023 Active [facility] In Vitro Strip (Glucose Blood)Indications:Di abetic polyneuropathy [...] hemoglobin A1c goal of less than 7.5% ([facility]) Inject 1 mg under the skin once [...] as of this encounter (statuses as of 07/16/2023) Active Problems Problem Noted Date Diagnosed Date [...] as of this encounter (statuses as of 07/16/2023) Resolved Problems Problem Noted Date Diagnosed Date [...] as of this encounter (statuses as of 07/16/2023) Immunizations Name Administration Dates Next Due COVID-19 [...] 08/02/2023 9:00 AM EDT Office Visit Hematology/Oncology [place] [address] [address] Janna Muñoz CRNP [address] [place] [address] 09/28/2023 12:00 PM EDT Office Visit [facility] 200 [facility] [place] [address] Efraín Zamudio III, MD 200 [facility] [place] [address] 10/15/2023 1:00 PM EDT Office Visit [facility] 200 [facility] [place] [address] Efraín Zamudio III, MD 200 [facility] [place] [address] Pending Results Name Type Priority Associated Diagnoses Date /Time VITAMIN B12 Lab Routine Encounter for long-term (current) use of medications 07/16/2023 12:16 PM EDT HEMOGLOBIN A1C Lab Routine Diabetic polyneuropathy associated with type 2 diabetes mellitus (HCC) 07/16/2023 12:16 PM EDT Scheduled Procedures Name Priority Associated Diagnoses Date/Ti [...] 04/14/2021, Additional history exists Albumin/Creatinine Ratio 07/12/2023 04/2 023, 03/13/2019, 01/03/2018, [...] as of this encounter Visit Diagnoses Diagnosis Encounter for long-term (current) use of medications Encounter for long-term (current) use of other medications Diabetic polyneuropathy associated with type 2 diabetes mellitus (HCC) documented in this encounter Advance Directives Documents on File Type Date Recorded Patient Territory Outside Sales Manager Expl anation Advance Directives and Living Will 11/03/2008 ADVANCE DIRECTIVE / LIVING WILL Advance Directives and Living Will 11/03/2008 ADVANCE DIRECTIVE / LIVING WILL Power of Seasonal Greenery Bundler 11/03/2008 POWER OF A TTORNEY Power of Seasonal Greenery Bundler 11/03/2008 POWER OF A TTORNEY Power of Seasonal Greenery Bundler 11/03/2008 POWER OF A TTORNEY Care Teams Screw Machine Setter Relationship Specialty Start Date End Date Efraín Zamudio III, MD [address] [place] [address] PCP - General Family Medicine 06/24/21 documented as of this encounter
--- OUTSIDE RECORDS SUMMARY | 2023-08-31 21:01 | External Medical Summary | Summary of Care ---
Author Name Unknown Organization [facility] Address [address] [place] [address] Phone [phone] Care Team Providers Care Lumber Salvager Name Role Phone Lizz BUI MD, Efraín León Primary Care Provider [phone] Reason for Visit * Reason Onset Date Comments Referral 06/28/2023 [facility] Encounter Details Date Type Department Care Team (Late st Contact Info) Description 06/28/2023 Telephone Family Practice [facility] 200 [facility] [place] [id number] Efraín Zamudio III, MD 200 [place] [address] Referral ([facility]... Allergies Active Allergy Reactions Criticality Noted Date [...] times daily 200 Each 11 04/07/2023 Active [employer] w/Device KitIndications:Diabet ic polyneuropathy associated with type 2 diabetes mellitus (HCC) Use as directed E11.9 1 Kit 0 04/09/2023 Active [employer] In Vitro Strip (Glucose Blood)Indications:Alondra betic polyneuropathy [...] before bedtime. 60 Tablet 11 06/28/2023 Active documented as of this encounter (statuses [...] encounter Miscellaneous Notes * Telephone Encounter - Vick Spencer MED ASSIST - 06/28/2023 12:39 PM EDT Patient has referrals in chart for spine surgery, wants [facility]. documented in this encounter Plan of Treatment Upcoming Encounters Date Type Department Care Team (Late st Contact Info) Description 08/02/2023 9:00 AM EDT Office Visit Hematology/Oncology [place] [address] [place] [phone] Janna [facility]oz CRNP [address] [facility] [place] [address] 09/28/2023 12:00 PM EDT Office Visit [facility] [place] [address] [place] [address] Efraín Zamudio III, MD [facility] [place] [address] 10/15/2023 1:00 PM EDT Office Visit [place] [address] [place] [address] Efraín Zamudio III, MD [address] [place] [address] [place] [address] Scheduled Procedures Name Priority Associated Diagnoses Date/Ti [...] Documents on File Type Date Recorded Patient Patient Assistant Expl anation Advance Directives and Living Will 11/03/2008 ADVANCE DIRECTIVE / LIVING WILL Advance Directives and Living Will 11/03/2008 ADVANCE DIRECTIVE / LIVING WILL Power of Operations Recruiter 11/03/2008 POWER OF A TTORNEY Power of Operations Recruiter 11/03/2008 POWER OF A TTORNEY Power of Operations Recruiter 11/03/2008 POWER OF A TTORNEY Care Teams Lumber Salvager Relationship Specialty Start Date End Date Efraín Zamudio III, MD [address] [place] [address] PCP - General Family Medicine 06/24/21 documented as of this encounter
--- OUTSIDE RECORDS SUMMARY | 2023-08-31 21:02 | External Medical Summary | Summary of Care ---
Author Name Unknown Organization [facility] Address [address] [place] [address] Phone [phone] Care Team Providers Care Automatic Lathe Setter Name Role Phone Lizz BUI MD, Efraín León Primary Care Provider [phone] Reason for Visit * Reason Onset Date Comments Med Request 07/10/2023 Encounter Details Date Type Department Care Team (Late st Contact Info) Description 07/10/2023 Telephone Family Practice [facility] 200 [facility] [place] [address] Efraín Zamudio III, MD [address] [place] [address] Med Request Allergies Active Allergy Reactions Criticality [...] as of this encounter (statuses as of 07/10/2023) Medications Medication Sig Dispensed Refills Start Date [...] times daily 200 Each 11 04/07/2023 Active Telit Wireless SolutionsTouch Verio w/Device KitIndications:Diabe tic polyneuropathy associated with type 2 diabetes mellitus (HCC) Use as directed E11.9 1 Kit 0 04/09/2023 Active [employer]it Wireless SolutionsTouch Verio In Vitro Strip (Glucose Blood)Indications:Di abetic [...] Dx: E11.9 100 Strip 3 04/10/2023 Active Esomeprazole Magnesium 40 MG Oral Capsule Delayed Release (NexIUM) Take 1 Capsule by mouth in the morning. 1 hour before the first meal of the day. 30 Capsule 11 05/08/2023 Active LORazepam 0.5 MG Oral Tablet (Ativan) [...] hemoglobin A1c goal of less than 7.5% ([facility]) Inject 1 mg under the skin [...] before bedtime. 8.5 g 1 07/10/2023 Active documented as of this encounter (statuses as of 07/10/2023) Active Problems Problem Noted Date Diagnosed Date [...] as of this encounter (statuses as of 07/10/2023) Resolved Problems Problem Noted Date Diagnosed Date [...] as of this encounter (statuses as of 07/10/2023) Immunizations Name Administration Dates Next Due COVID-19 [...] encounter Miscellaneous Notes * Telephone Encounter - Maris Harris OSA - 07/10/2023 2:31 PM EDT Pt is requesting an Rx for Nexium to be sent to [facility]. He is no longer using [facility]. * Telephone Encounter - Christoph Betts MED ASSIST - 07/10/2023 1:27 PM EDT Patient would like a refill for his albuterol inhaler due to his history of lung cancer and due to summer approaching. Script pended, if agreeable. Thank you! * [...] Description 07/16/2023 11:40 AM EDT Office Visit [place] [address] [place] [address] [address] Efraín Zamudio III, MD [address] [place], [place] [address]mary[facility] [address] 08/02/2023 9:00 AM EDT Office Visit Hematology/Oncology [facility] [place] [address] [address] [phone] Janna Muñoz CRNP [address] [place] [address] [place] [address] 09/28/2023 12:00 PM EDT Office Visit [place] [address] [place] [address] Efraín Zamudio III, MD [facility] [place] [address] [address] Scheduled Procedures Name Priority Associated Diagnoses Date/Ti [...] Documents on File Type Date Recorded Patient Chemical Pathologist Expl anation Advance Directives and Living Will 11/03/2008 ADVANCE DIRECTIVE / LIVING WILL Advance Directives and Living Will 11/03/2008 ADVANCE DIRECTIVE / LIVING WILL Power of Rental Coordinator 11/03/2008 POWER OF A TTORNEY Power of Rental Coordinator 11/03/2008 POWER OF A TTORNEY Power of Rental Coordinator 11/03/2008 POWER OF A TTORNEY Care Teams Automatic Lathe Setter Relationship Specialty Start Date End Date Efraín Zamudio III, MD 200 [place] [address] PCP - General Family Medicine 06/24/21 documented as of this encounter
--- OUTSIDE RECORDS SUMMARY | 2023-08-31 21:02 | External Medical Summary | Summary of Care ---
Author Name Unknown Organization [facility] [address] [facility] [address] Phone [phone] Care Team Providers Care Certified Orthotist Name Role Phone Lizz BUI MD, Efraín León Primary Care Provider [phone] Reason for Visit * Reason Comments eRx-Medication Refill Encounter Details Date Type Department Care Team (Late st Contact Info) Description 07/06/2023 Refill Family Practice [facility] 200 [place] [address] Caitie Schafer PA-C 200 [place] [address] Allergies Active Allergy Reactions Criticality Noted Date [...] as of this encounter (statuses as of 07/09/2023) Medications Medication Sig Dispensed Refills Start Date [...] times daily 200 Each 11 04/07/2023 Active ConjecturTouch Verio w/Device KitIndications:Diabe tic polyneuropathy associated with [...] first meal of the day. 30 Capsule 05/08/2023 Active LORazepam 0.5 MG Oral Tablet [...] hemoglobin A1c goal of less than 7.5% ([facility]) Inject 1 mg under the skin once a week. 3 mL 6 07/03/2023 Active Zolpidem Tartrate 10 MG Oral Tablet (Ambien) Take 1 Tablet by mouth at bedtime as needed for Sleep. 30 Tablet 0 07/06/2023 Active traZODone HCl 50 MG Oral Tablet (Desyrel) Take one and half tablets at bedtime 45 Tablet 2 07/06/2023 Active documented as of this encounter (statuses as of 07/09/2023) Active Problems Problem Noted Date Diagnosed Date [...] as of this encounter (statuses as of 07/09/2023) Resolved Problems Problem Noted Date Diagnosed Date [...] as of this encounter (statuses as of 07/09/2023) Immunizations Name Administration Dates Next Due COVID-19 [...] encounter Miscellaneous Notes * Telephone Encounter - Gaby Gonzalez [facility] - 07/09/2023 11:47 AM EDT Refused Prescriptions: Disp Refills Ibuprofen 600 MG Oral Tablet (Motrin) 24 Tab*1 Sig: Take 1 Tablet by mouth every 8 hours as needed (Headache).Refused By: GABY GONZALEZ for Refusal: Too soon documented in this encounter Plan of Treatment Upcoming Encounters Date Type Department Care Team (Late st Contact Info) Description 07/16/2023 11:40 AM EDT Office Visit [facility] [address] [place] [address] Efraín Zamudio III, MD [address] [place] [address] 08/02/2023 9:00 AM EDT Office Visit Hematology/Oncology [facility] 200 [place] [phone] Janna Muñoz CRNP [address] [place] [address] 09/28/2023 12:00 PM EDT Office Visit [facility] [address] [facility] [place], [place] [address] Efraín Zamudio III, MD [address] [facility] [place] [address] Scheduled Procedures Name Priority Associated Diagnoses Date/Ti [...] Documents on File Type Date Recorded Patient Forensic Manager Expl anation Advance Directives and Living Will 11/03/2008 ADVANCE DIRECTIVE / LIVING WILL Advance Directives and Living Will 11/03/2008 ADVANCE DIRECTIVE / LIVING WILL Power of Tech Brazer Tester 11/03/2008 POWER OF A TTORNEY Power of Tech Brazer Tester 11/03/2008 POWER OF A TTORNEY Power of Tech Brazer Tester 11/03/2008 POWER OF A TTORNEY Care Teams Certified Orthotist Relationship Specialty Start Date End Date Lizz III, Efraín León MD 200 [place] [address] PCP - General Family Medicine 06/24/21 documented as of this encounter
--- OUTSIDE RECORDS SUMMARY | 2023-08-31 21:02 | External Medical Summary | Summary of Care ---
Author Name Unknown Organization [facility] Address [address] [place] [address] Phone [phone] Care Team Providers Care Furniture Crater Name Role Phone Lizz BUI MD, Efraín León Primary Care Provider [phone] Reason for Visit * Reason Onset Date Comments Medication Refill 07/04/2023 Encounter Details Date Type Department Care Team (Late st Contact Info) Description 07/04/2023 Refill Family Practice [facility] 200 [place] [address] Efraín Zamudio III, MD 200 [place] [address] Allergies Active Allergy Reactions Criticality Noted Date [...] 5 times daily 200 Each 04/07/2023 Active [employer] Verio w/Device KitIndications:Diab etic polyneuropathy associated with type 2 diabetes mellitus (HCC) Use as directed E11.9 1 Kit 0 04/09/2023 Active Study EdgeTouch Verio In Vitro Strip (Glucose Blood)Indications:D iabetic [...] goal of less than 7.5% ([facility]) Inject 1 mg under the skin once a week. 3 mL 6 07/03/2023 Active traZODone HCl 50 MG Oral Tablet (Desyrel) Take one and half tablets at bedtime 45 Tablet 2 04/09/2023 4 Discontinu ed(Refill) Zolpidem Tartrate 10 MG Oral Tablet (Ambien) Take 1 Tablet by mouth at bedtime as needed for Sleep. 30 Tablet 0 06/04/2023 4 Discontinu ed(Refill) documented as of this [...] encounter Miscellaneous Notes * Telephone Encounter - Moises Pryor, [facility] - 07/05/2023 10:51 PM EDTRefused Prescriptions: Disp Refills Ibuprofen 600 MG Oral Tablet (Motrin) 24 Tab*1 Sig: Take 1 Tablet by mouth every 8 hours as needed (Headache). Refused By: MOISES PRYOR Reason for Refusal: Too soon * Telephone Encounter - Moises Pryor [facility] - 07/05/2023 10:50 PM EDT Still 1 refill remaining at Pharmacy Please advise patient to contact pharmacy for refill. Thank You, Moises Pryor [facility] Clinical Pharmacist Centralized Clinical Pharmacy Services (CCPS) (formerly Telepharmacy) [phone] 07/05/2023, 10:51 PM * Telephone Encounter - Shira Mederos PHARM Tech - 07/04/2023 5:08 PM EDT Did you pend patient's preferred pharmacy and medication before forwarding?yes Pharmacy: [facility] [address] Pending Prescriptions: Disp Refills Ibuprofen 600 MG Oral Tablet (Motrin) 24 Tab*1 Sig: Take 1 Tablet by mouth every 8 hours as needed (Headache). Last Visit: 06/28/2023 (in office), 07/15/2019 (telemedicine) Next Visit: 07/16/2023 If no future appointments scheduled, and last appointment is greater than a year ago, please schedule patient for a follow-up appointment Last date the medication was ordered: 06-28-23 Is this request for a controlled substance?No [...] Description 07/16/2023 11:40 AM EDT Office Visit [address] [place] [address] Efraín Zamudio III, MD [address] [place] [address] [place] [address] 08/02/2023 9:00 AM EDT Office Visit Hematology/Oncology [facility] [place] [address] [place] [phone] Janna Muñoz CRNP [address] [place] [address] [place] [address] 09/28/2023 12:00 PM EDT Office Visit [facility] [place] [address] Efraín Zamudio III, MD [address] [place] [address] [place] [address] Scheduled Procedures Name Priority Associated Diagnoses Date/Ti [...] Documents on File Type Date Recorded Patient Pharmaceutical Detailer Expl anation Advance Directives and Living Will 11/03/2008 ADVANCE DIRECTIVE / LIVING WILL Advance Directives and Living Will 11/03/2008 ADVANCE DIRECTIVE / LIVING WILL Power of Office Chair Assembler 11/03/2008 POWER OF A TTORNEY Power of Office Chair Assembler 11/03/2008 POWER OF A TTORNEY Power of Office Chair Assembler 11/03/2008 POWER OF A TTORNEY Care Teams Furniture Crater Relationship Specialty Start Date End Date Efraín Zamudio III, MD [address] [place] [address] PCP - General Family Medicine 06/24/21 documented as of this encounter
--- OUTSIDE RECORDS SUMMARY | 2023-08-31 21:02 | External Medical Summary | Summary of Care ---
Author Name Unknown Organization [facility] Address [address] [place] [address] Phone [phone] Care Team Providers Care Tare Man Name Role Phone Lizz BUI MD, Efraín León Primary Care Provider [phone] Reason for Visit * Reason Onset Date Comments Medication Problem 07/02/2023 Advice 07/02/2023 Encounter Details Date Type Department Care Team (Late st Contact Info) Description 07/02/[address] [facility] 200 [place] [address] Efraín Zamudio III, MD 200 [place] [address] Medication Problem; Advice Allergies Active Allergy Reactions Criticality Noted [...] as of this encounter (statuses as of 07/04/2023) Medications Medication Sig Dispensed Refills Start Date [...] times daily 200 Each 11 04/07/2023 Active traZODone HCl 50 MG Oral Tablet (Desyrel) Take one and half tablets at bedtime 45 Tablet 2 04/09/2023 Active its learning Verio w/Device KitIndications:Diab etic polyneuropathy associated with type 2 diabetes mellitus (HCC) Use as directed E11.9 1 Kit 0 04/09/2023 Active Kidaptiveuch Verio In Vitro Strip (Glucose Blood)Indications:D iabetic [...] before bedtime. 90 Tablet 4 06/01/2023 Active Zolpidem Tartrate 10 MG Oral Tablet (Ambien) Take 1 Tablet by mouth at bedtime as needed for Sleep. 30 Tablet 0 06/04/2023 Active Ibuprofen 600 MG Oral Tablet (Motrin) [...] goal of less than 7.5% ([facility]) Inject 1 mg under the skin once a week. 3 mL 6 05/28/2023 4 Discontinu ed(Refill) documented as of this encounter (statuses as of 07/04/2023) Active Problems Problem Noted Date Diagnosed Date [...] as of this encounter (statuses as of 07/04/2023) Resolved Problems Problem Noted Date Diagnosed Date [...] as of this encounter (statuses as of 07/04/2023) Immunizations Name Administration Dates Next Due COVID-19 [...] Telephone Encounter - Merle Mckeon OSA - 07/04/2023 1:50 PM EDT Patient has been scheduled with for pain in L leg and swelling * Telephone Encounter - Efraín Zamudio III, MD - 07/03/2023 10:42 AM EDT Would not think iron would be related to pain or swelling should make an appointment to have the leg checked * Telephone Encounter - Antonette St OSA - 07/02/2023 4:54 PM EDT Patient called regarding the new iron prescription. He is not constipated any longer but still feeling very bloated. He is also still having some swelling in his left leg and is asking if the iron could be contributing to both of these things? Please call the patient as soon as possible. Thank you. * Telephone Encounter - Maris Spears OSA - 07/02/2023 4:01 PM EDT Patient is calling to let Dr Zamudio know that he is no longer having issues with constipation so he doesn't need anything called in for it. He is still having swelling in his left leg though. * Telephone Encounter - Mauricio Gifford RPh - 07/02/2023 8:11 AM EDT Patient called because his left leg from the knee down is swollen. 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 He said when he saw PCP 06/28/2023 his leg was not swollen. He is also constipated andbloated from the iron. I recommended trying colace for the constipation but if that did not work maybe he would tolerate a different formulation of iron better. Please approve colace if appropriate and please also advise if patient should be seen. Thank You, Mauricio Gifford, Pharm-D Clinical Pharmacist [facility] Services ([facility]) (Formerly [employer]) [phone] 07/02/2023, 8:27 AM * Telephone Encounter - Sharita Ortiz CPhT - 07/02/2023 8:07 AM EDT Patient called in with side effects from Ferrous Sulfate 325 (65 Fe) MG Oral Tablet (Feosol), bloating and constipation. Warm transferred to [facility] for consultation. Thank you, Sharita Ortiz Supervisor Engine Assembly Centralized [facility] Pharmacy Services ([facility]PS) (Formerly Telepharmacy) 07/02/2023,8:08 AM documented in this encounter Plan of Treatment Upcoming Encounters Date Type Department Care Team (Late st Contact Info) Description 07/16/2023 11:40 AM EDT Office Visit [address] [place] [address] Efraín Zamudio III, MD [address] [place] [address] [place] [address] 08/02/2023 9:00 AM EDT Office Visit Hematology/Oncology [facility] 200 [facility] [place] [phone] Janna Muñoz CRNP 400 [place] [address] 09/28/2023 12:00 PM EDT Office Visit [facility] [address] [facility] [place] [address] Efraín Zamudio III, MD [address] [place] [address] [place] [address] Scheduled Procedures Name Priority Associated Diagnoses Date/Ti [...] Documents on File Type Date Recorded Patient Security Guards Dispatcher Expl anation Advance Directives and Living Will 11/03/2008 ADVANCE DIRECTIVE / LIVING WILL Advance Directives and Living Will 11/03/2008 ADVANCE DIRECTIVE / LIVING WILL Power of Automotive Service Advisor 11/03/2008 POWER OF A TTORNEY Power of Automotive Service Advisor 11/03/2008 POWER OF A TTORNEY Power of Automotive Service Advisor 11/03/2008 POWER OF A TTORNEY Care Teams Tare Man Relationship Specialty Start Date End Date Efraín Zamudio III, MD [address] [place] [address] PCP - General Family Medicine 06/24/21 documented as of this encounter
--- OUTSIDE RECORDS SUMMARY | 2023-08-31 21:02 | External Medical Summary | Summary of Care ---
Author Name Unknown Organization [facility] Address [address] [place] [address] Phone [phone] Care Team Providers Care Home Mission Worker Name Role Phone Lizz BUI MD, Efraín León Primary Care Provider [phone] Reason for Visit * Reason Onset Date Comments Med Request 07/10/2023 Encounter Details Date Type Department Care Team (Late st Contact Info) Description 07/10/2023 Telephone Family Practice [facility] 200 [place] [address] Efraní Zamudio III, MD 200 [place] [address] Med Request Allergies Active Allergy Reactions Criticality [...] times daily 200 Each 11 04/07/2023 Active Bil[employer]eskTouch Verio w/Device KitIndications:Diabe tic polyneuropathy associated with type 2 diabetes mellitus (HCC) Use as directed E11.9 1 Kit 0 04/09/2023 Active BilldeskTouch Verio In Vitro Strip (Glucose Blood)Indications:Di abetic [...] encounter Miscellaneous Notes * Telephone Encounter - Christoph Betts MED [...] Description 07/16/2023 11:40 AM EDT Office Visit [address] [place] [address] Efraín Zamudio III, MD [address] [place] [address] [place] [address] 08/02/2023 9:00 AM EDT Office Visit Hematology/Oncology [facility] 200 [place] [address] Janna Muñoz CRNP [address] [place] [address] 09/28/2023 12:00 PM EDT Office Visit [facility] 200 [place] [address] Efraín Zamudio III, MD [address] [place] [address] [place] [address] Scheduled Procedures Name Priority Associated Diagnoses Date/Ti [...] 04/14/2021, Additional history exists Albumin/Creatinine Ratio 07/12/2023 04 023, 03/13/2019, 01/03/2018, Additional history exists Diabetic [...] Documents on File Type Date Recorded Patient Tradeshow Worker Expl anation Advance Directives and Living Will 11/03/2008 ADVANCE DIRECTIVE / LIVING WILL Advance Directives and Living Will 11/03/2008 ADVANCE DIRECTIVE / LIVING WILL Power of Intake Clinician 11/03/2008 POWER OF A TTORNEY Power of Intake Clinician 11/03/2008 POWER OF A TTORNEY Power of Intake Clinician 11/03/2008 POWER OF A TTORNEY Care Teams Home Mission Worker Relationship Specialty Start Date End Date Efraín Zamudio III, MD [address] [place] [address] PCP - General Family Medicine 06/24/21 documented as of this encounter
--- OUTSIDE RECORDS SUMMARY | 2023-08-31 21:02 | External Medical Summary | Summary of Care ---
Author Name Unknown Organization [facility] Address [address] [place] [address] Phone [phone] Care Team Providers Care Brick Machine Operator Name Role Phone Lizz BUI MD, Efraín León Primary Care Provider [phone] Reason for Visit * Reason Onset Date Comments Medication Problem 07/02/2023 Advice 07/02/2023 Encounter Details Date Type Department Care Team (Late st Contact Info) Description 07/02/2023 Telephone Family Practice [facility] 200 [facility] [place] [address] Efraín Zamudio III, MD 200 [place] [address] Medication Problem; Advice Allergies Active Allergy Reactions [...] at bedtime 45 Tablet 2 04/09/2023 Active [employer] Verio w/Device KitIndications:Diab etic polyneuropathy associated with type 2 diabetes mellitus (HCC) Use as directed E11.9 1 Kit 0 04/09/2023 Active [employer] Verio In Vitro Strip (Glucose Blood)Indications:D iabetic [...] goal of less than 7.5% ([facility]) Inject 1 mg under the [...] encounter Miscellaneous Notes * Telephone Encounter - Efraín Zamudio III, [...] though. * Telephone Encounter - Mauricio Gifford [facility] - 07/02/2023 8:11 AM EDT Patient called [...] if patient should be seen. Thank You, Maruicio Gifford, Pharm-D Clinical Pharmacist [facility] Pharm[facility] Services ([facility]) (Formerly [employer]) [phone] 07/02/2023, 8:27 AM * Telephone Encounter - Sharita Ortiz CPhT - 07/02/2023 8:07 AM EDT Patient called in with side effects from Ferrous Sulfate 325 (65 Fe) MG Oral Tablet (Feosol), bloating and constipation. Warm transferred to [facility] for consultation. Thank you, Sharita Ortiz Assembler Camper [facility] Pharmacy Services ([facility]PS) (Formerly [employer]) 07/02/2023,8:08 AM documented in this encounter Plan of Treatment Upcoming Encounters Date Type Department Care Team (Late st Contact Info) Description 08/02/2023 9:00 AM EDT Office Visit Hematology/Oncology [facility] 200 [facility] [place] [phone] Janna Muñoz CRNP [address] [place] [address] 09/28/2023 12:00 PM EDT Office Visit Family Practice [facility] 200 [facility] [place] [address] Efraín Zamudio III, MD 200 [facility] [place] [address] Scheduled Procedures Name Priority Associated Diagnoses Date/Ti [...] 07/2022, 04/14/2021, Additional history exists Albumin/Creatinine Ratio 07/12/202[address] 023, 03/13/2019, 01/03/2018, Additional [...] Documents on File Type Date Recorded Patient Event Coordinator Expl anation Advance Directives and Living Will 11/03/2008 ADVANCE DIRECTIVE / LIVING WILL Advance Directives and Living Will 11/03/2008 ADVANCE DIRECTIVE / LIVING WILL Power of Automatic Spinning Lathe Operator 11/03/2008 POWER OF A TTORNEY Power of Automatic Spinning Lathe Operator 11/03/2008 POWER OF A TTORNEY Power of Automatic Spinning Lathe Operator 11/03/2008 POWER OF A TTORNEY Care Teams Brick Machine Operator Relationship Specialty Start Date End Date Lizz BUI, Efraín León MD 200 [place] [address] PCP - General Family Medicine 06/24/21 documented as of this encounter
--- OUTSIDE RECORDS SUMMARY | 2023-08-31 21:02 | External Medical Summary | Summary of Care ---
Author Name Unknown Organization [facility] Address [address] [place] [address] Phone [phone] Care Team Providers Care Formulation Scientist Name Role Phone Lizz BUI MD, Didier León Primary Care Provider [phone] Reason for Visit * Reason Onset Date Comments Med Request 07/10/2023 Encounter Details Date Type Department Care Team (Late st Contact Info) Description 07/10/2023 Telephone Family Practice [facility] 200 [facility] [place] [address] Didier Huff III, MD 200 [place] [address] Med Request Allergies Active Allergy Reactions Criticality [...] 5 times daily 200 Each 04/07/2023 Active [employer] Verio w/Device KitIndications:Diab etic polyneuropathy associated with type 2 diabetes mellitus (HCC) Use as directed E11.9 1 Kit 0 04/09/2023 Active [employer] Verio In Vitro Strip (Glucose Blood)Indications:D iabetic [...] hemoglobin A1c goal of less than 7.5% ([facility]) Inject 1 mg under the [...] as of this encounter Miscellaneous Notes * Addendum Note - Didier Huff III, [...] Rx for Nexium to be sent to [facility]. He is no longer using [facility]. [...] Description 07/16/2023 11:40 AM EDT Office Visit [facility] 200 [facility] [place] [address] Didier Huff III, MD 200 [facility] [place] [address] [facility] [address] 08/02/2023 9:00 AM EDT Office Visit Hematology/Oncology [facility] 200 [facility] [place] [address] Janna Muñoz CRNP 400 [facility] [place] [address] 09/28/2023 12:00 PM EDT Office Visit [facility] 200 [facility] [place] [address] Didier Huff III, MD 200 [facility] [place] [address] Scheduled Procedures Name Priority Associated Diagnoses Date/Ti [...] 04/14/2021, Additional history exists Albumin/Creatinine Ratio 07/12/2023 042 023, 03/13/2019, 01/03/2018, Additional history exists Diabetic [...] Documents on File Type Date Recorded Patient Liquefied Petroleum 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 Expl anation Advance Directives and Living Will 11/03/2008 ADVANCE DIRECTIVE / LIVING WILL Advance Directives and Living Will 11/03/2008 ADVANCE DIRECTIVE / LIVING WILL Power of Toll Testboard Worker 11/03/2008 POWER OF A TTORNEY Power of Toll Testboard Worker 11/03/2008 POWER OF A TTORNEY Power of Toll Testboard Worker 11/03/2008 POWER OF A TTORNEY Care Teams Formulation Scientist Relationship Specialty Start Date End Date Didier Huff III, MD 200 [facility] [place] [address] PCP - General Family Medicine 06/24/21 documented as of this encounter
--- OUTSIDE RECORDS SUMMARY | 2023-08-31 21:02 | External Medical Summary | Summary of Care ---
Author Name Unknown Organization [facility] Address [address] [place] [address] Phone [phone] Care Team Providers Care Rubber Belt Splicer Name Role Phone Lizz BUI MD, Efraín León Primary Care Provider [phone] Reason for Visit * Reason Onset Date Comments Advice 04/06/2023 Encounter Details Date Type Department Care Team (Late st Contact Info) Description 04/06/2023 Telephone Family Practice [facility] 200 [facility] [place] [address] Efraín Zamudio III, MD 200 [place] [address] Advice Allergies Active Allergy Reactions Criticality Noted [...] as of this encounter (statuses as of 07/06/2023) Medications Medication Sig Dispensed Refills Start Date End Date Status Silver sulfADIAZINE 1 % External Cream (Silvadene)Indicat ions:Wound of left foot,Osteomyelitis of toe (HCC) Apply topically to affected area daily. Apply to foot. 50 g 1 3 Active Additional Information Patient not taking.Reported on 06/28/2023 Gauze Pads 4"X4" PadIndications:Wou nd of left foot,Osteomyelitis of toe (HCC) Apply to the foot daily with silvadene cream. 100 Each 5 3 Active Rosuvastatin Calcium 40 MG Oral Tablet (Crestor)Indicatio ns:Dyslipidemia, goal LDL below 100 Take 1 Tablet [...] Oral Tablet (Oxy IR) 0 3 Active Contour Next Monitor w/Device KitIndications:Alondra betic polyneuropathy associated with type 2 diabetes mellitus (HCC),Diabetes type 2, uncontrolled Use as directed . 1 Kit 0 2 024 Discontinued(Re fill) LancetsIndications :Diabetic polyneuropathy associated with type 2 diabetes mellitus (HCC) Use as directed 5 times daily 200 Each 11 2 024 Discontinued(Re fill) Contour Next Test In Vitro Strip (Glucose Blood)Indications: Diabetic polyneuropathy associated with type 2 diabetes mellitus (HCC) Test five times daily for use with multiple daily insulin injections-befo re all meals, snacks, exercise, and one to two times during the night. Dx: E11.9 200 Strip 5 2 024 Discontinued(Re fill) Ozempic (1 MG/DOSE) 4 MG/3ML Subcutaneous Solution Pen-injector (Semaglutide (1 MG/DOSE)) Inject 1 mg under the skin once a week. 3 mL 6 3 024 Discontinued(Re fill) Esomeprazole Magnesium 40 MG Oral Capsule Delayed Release (NexIUM) Take 1 Capsule by mouth in the morning. 1 hour before the first meal of the day. 30 Capsule 4 3 024 Discontinued(Re fill) LORazepam 0.5 MG Oral Tablet (Ativan) Take 1 Tablet by mouth every 8 hours as needed for Anxiety. 21 Tablet 0 3 024 Discontinued(Re fill) Diclofenac Sodium 1 % External Gel (Voltaren) Apply topically to affected area 4 times a day. 2 grams/ dose Apply to knee as needed for pain 100 g 1 3 024 Discontinued(Re fill) traZODone HCl 50 MG Oral Tablet (Desyrel) Take 1 Tablet by mouth at bedtime. 30 Tablet 2 3 024 Discontinued(Re fill) Zolpidem Tartrate 10 MG Oral Tablet (Ambien) Take 1 Tablet by mouth at bedtime as needed for Sleep. 30 Tablet 0 3 024 Discontinued(Re fill) Gabapentin 400 MG Oral Capsule (Neurontin) Take 1 Capsule by mouth in the morning and 1 Capsule at noon and 1 Capsule before bedtime. 90 Capsule 5 3 024 Discontinued(Re fill) Ibuprofen 600 MG Oral Tablet (Motrin) Take 1 Tablet by mouth every 8 hours as needed (Headache) for up to 10 days. 24 Tablet 0 3 024 Discontinued(Re fill) Gabapentin 400 MG Oral Capsule (Neurontin) Take 1 Capsule by mouth in the morning and 1 Capsule at noon and 1 Capsule before bedtime. 90 Capsule 5 4 024 Discontinued Contour Next Monitor w/Device KitIndications:Alondra betic polyneuropathy associated with type 2 diabetes mellitus (HCC) Use as directed. 1 Kit 0 4 024 Discontinued(Me dication List Clean Up) Contour Next Test In Vitro Strip (Glucose Blood)Indications: Diabetic polyneuropathy associated with type 2 diabetes mellitus (HCC) Test five times daily for use with multiple daily insulin injections-befo re all meals, snacks, exercise, and one to two times during the night. Dx: E11.9 200 Strip 5 4 024 Discontinued(Me dication List Clean Up) documented as of this encounter (statuses as of 07/06/2023) Active Problems Problem Noted Date Diagnosed Date [...] as of this encounter (statuses as of 07/06/2023) Resolved Problems Problem Noted Date Diagnosed Date [...] as of this encounter (statuses as of 07/06/2023) Immunizations Name Administration Dates Next Due COVID-19 [...] encounter Miscellaneous Notes * Telephone Encounter - Agata Bolden, KAYLENE - 04/07/2023 9:18 AM EST Pending Prescriptions: Disp Refills Gabapentin 400 MG Oral Capsule (Neurontin)90 Cap*5 Sig: Take 1 Capsule by mouth in the morning and 1 Capsule at noon and 1 Capsule before bedtime. Contour Next Monitor w/Device Kit 1 Kit 0 Sig: Use as directed. Contour Next Test In Vitro Strip (Glucose*200 St*5 Sig: Test five times daily for use with multiple daily insulin injections-before all meals, snacks, exercise, and one to two times during the night. Dx: E11.9 Last Visit: 03/14/2023 (in office), 07/15/2019 (telemedicine) Next Visit: 06/18/2023 Last date the medication was ordered: 03/14/2023 Patient Active Problem List Diagnosis Code Esophageal reflux K21.9 Spinal stenosis of lumbar region without neurogenic claudication M48.061 DYSLIPIDEMIA, GOAL LDL BELOW 100 E78.5 Tobacco use disorder F17.200 Diabetic polyneuropathy ([facility]) E11.42 MEDICATION USE AGREEMENT [id number] Postlaminectomy syndrome M96.1 HTN, goal below 140/90 I10 COPD, severity to be determined ([facility]) J44.9 Anxiety and depression F41.9, F32.A Insulin dependent type 2 diabetes mellitus ([facility]) E11.9, Z79.4 Brain metastasis C79.31 Small cell lung cancer ([facility]) C34.90 Major depressive disorder, recurrent episode, moderate ([facility]) F33.1 Chronic back pain M54.9, G89.29 Laceration of toe S91.119A Tenosynovitis of left foot M65.9 Atrial fibrillation ([facility]) I48.91 Amputation of toe of right foot ([facility]) S98.131A Type 2 diabetes mellitus with hemoglobin A1c goal of less than 7.5% ([facility]) E11.9 Labs: Lab Results Component Value Date/Time CREATININE - [facility] 0.7 03/14/2023 08:47 AM CREATININE - [facility] 0.9 01/09/2020 09:23 AM CREATININE, RANDOM URINE - [facility] 152 07/11/2022 02:28 PM CREATININE, RANDOM URINE - [facility] 105 03/13/2019 04:08 PM CREATININE-OUTSIDE LAB 1.21 01/03/2018 12:00 AM Lab Results Component Value Date/Time POTASSIUM - [facility] 4.8 03/14/2023 08:47 AM POTASSIUM - [facility] 4.2 01/09/2020 09:23 AM POTASSIUM-OUTSIDE LAB 4.6 01/03/2018 12:00 AM Lab Results Component Value Date/Time TSH - [facility] 0.91 03/14/2023 08:47 AM TSH - [facility] 2.09 04/06/2014 09:52 AM TSH - OUTSIDE LAB 0.843 01/03/2018 12:00 AM Lab Results Component Value Date/Time LDL (CALCULATED)-[facility] 86 01/03/2018 12:00 AM LDL CHOLESTEROL (CALCULATED) - [facility] 164 (H) 06/28/2022 09:14 AM LDL CHOLESTEROL (CALCULATED) - [facility] 151 (H) 03/10/2021 08:50 AM LDL CHOLESTEROL (CALCULATED) - [facility] UNINTERPRETABLE RESULT 01/06/2013 09:36 AM LDL CHOLESTEROL (CALCULATED) - [facility] UNINTERPRETABLE RESULT 06/21/2012 08:58 AM LDL CHOLESTEROL (DIRECT MEASURE) - [facility] 50 02/07/2023 12:13 PM LDL CHOLESTEROL (DIRECT MEASURE) - [facility] 175 (H) 11/23/2017 07:50 AM LDL CHOLESTEROL (DIRECT MEASURE) - [facility] 128 08/14/2016 11:05 AM Lab Results Component Value Date/Time ALT - [facility] 17 03/14/2023 08:47 AM ALT - [facility] 16 01/09/2020 09:23 AM ALT-OUTSIDE LAB 29 12/06/2016 12:00 AM Hemoglobin AIC Results: Lab Results Component Value Date/Time HEMOGLOBIN A1C - [facility] 7.2 (H) 12/29/2022 10:46 AM HEMOGLOBIN A1C - [facility] 7.0 (H) 06/28/2022 09:14 AM HEMOGLOBIN A1C - [facility] 10.0 (H) 08/11/2020 07:51 AM HEMOGLOBIN A1C - [facility] 6.5 (H) 12/04/2019 01:51 PM HEMOGLOBIN A1C - [facility] 6.4 (H) 12/04/2019 01:50 PM HEMOGLOBIN A1C - [facility] 7.2 (H) 11/05/2018 08:59 AM * Telephone Encounter - Sloane Bowers OSA - 04/06/2023 1:21 PM EST Pt is needing Gabapentin 400 mg refill Contour Next Monitor w/ Device Kit- current one stopped working Contour Next Test in Vitro Strip Needs prescriptions to go to [facility]delivery services. documented in this encounter Plan of Treatment Upcoming Encounters Date Type Department Care Team (Late st Contact Info) Description 07/16/2023 11:40 AM EDT Office Visit [facility] 200 [facility] [place] [address] Efraín Zamudio III, MD 200 [facility] [place] [address] 08/02/2023 9:00 AM EDT Office Visit Hematology/Oncology [facility] 200 [facility] [place] [phone] Janna Muñoz CRNP 400 [facility] [place] [address] 09/28/2023 12:00 PM EDT Office Visit [facility] 200 [facility] [place] [address] Efraín Zamudio III, MD [address] [facility] [address] [facility] [address] Scheduled Procedures Name Priority Associated Diagnoses Date/Ti [...] 07/2022, 04/14/2021, Additional history exists Albumin/Creatinine Ratio 07/12/202307/11/2 023, 03/13/2019, 01/03/2018, Additional [...] as of this encounter Visit Diagnoses Diagnosis Diabetic polyneuropathy associated with type 2 diabetes mellitus (HCC) documented in this encounter Advance Directives Documents on File Type Date Recorded Patient College Athletic Director Expl anation Advance Directives and Living Will 11/03/2008 ADVANCE DIRECTIVE / LIVING WILL Advance Directives and Living Will 11/03/2008 ADVANCE DIRECTIVE / LIVING WILL Power of Polish Maker 11/03/2008 POWER OF A TTORNEY Power of Polish Maker 11/03/2008 POWER OF A TTORNEY Power of Polish Maker 11/03/2008 POWER OF A TTORNEY Care Teams Rubber Belt Splicer Relationship Specialty Start Date End Date Efraín Zamudio III, MD 200 [facility] [place] [address] PCP - General Family Medicine 06/24/21 documented as of this encounter
--- OUTSIDE RECORDS SUMMARY | 2023-08-31 21:02 | External Medical Summary | Summary of Care ---
Author Name Unknown Organization [facility] Address [address] [place] [address] Phone [phone] Care Team Providers Care Cream Buyer Name Role Phone Lizz BUI MD, Efraín León Primary Care Provider [phone] Reason for Visit * Reason Onset Date Comments Med Request 07/10/2023 Encounter Details Date Type Department Care Team (Late st Contact Info) Description 07/10/2023 Telephone Family Practice [facility] 200 [place] [address] Efraín Zamudio III, MD 200 [place] [address] Med Request Allergies Active Allergy Reactions Criticality [...] times daily 200 Each 11 04/07/2023 Active [employer] Verio w/Device KitIndications:Diabe tic polyneuropathy associated with type 2 diabetes mellitus (HCC) Use as directed E11.9 1 Kit 0 04/09/2023 Active [employer] Verio In Vitro Strip (Glucose Blood)Indications:Di [...] hemoglobin A1c goal of less than 7.5% ([facility]) Inject 1 mg under the [...] encounter Miscellaneous Notes * Addendum Note - China Betts MED [...] Description 07/16/2023 11:40 AM EDT Office Visit [facility] [address] [place] [address] [address] Lizz Efraín BUI MD [address] [place] [address] 08/02/2023 9:00 AM EDT Office Visit Hematology/Oncology [facility] [address] [place] [address] [phone] Janna Muñoz CRNP [address] [place] [address] 09/28/2023 12:00 PM EDT Office Visit Family Practice [facility] [place] 200 [facility] [place] [address] Efraín Zamudio III, MD 200 [facility] [place] [address] Scheduled Procedures Name Priority Associated Diagnoses Date/Ti [...] Documents on File Type Date Recorded Patient Lean Coach Expl anation Advance Directives and Living Will 11/03/2008 ADVANCE DIRECTIVE / LIVING WILL Advance Directives and Living Will 11/03/2008 ADVANCE DIRECTIVE / LIVING WILL Power of Lining Caser 11/03/2008 POWER OF A TTORNEY Power of Lining Caser 11/03/2008 POWER OF A TTORNEY Power of Lining Caser 11/03/2008 POWER OF A TTORNEY Care Teams Cream Buyer Relationship Specialty Start Date End Date Efraín Zamudio III, MD 200 [place] [address] PCP - General Family Medicine 06/24/21 documented as of this encounter
--- OUTSIDE RECORDS SUMMARY | 2023-08-31 21:02 | External Medical Summary | Summary of Care ---
Author Name Unknown Organization [facility] Address [address] [place] [address] Phone [phone] Care Team Providers Care Fry Cook Name Role Phone Lizz BUI MD, Efraín León Primary Care Provider [phone] Reason for Visit * Reason Onset Date Comments Med Request 07/05/2023 Encounter Details Date Type Department Care Team (Late st Contact Info) Description 07/05/2023 Telephone Family Practice [facility] 200 [facility] [address] Efraín Zamudio III, MD 200 [place] [address] Med Request Allergies Active Allergy Reactions Criticality [...] 5 times daily 200 Each 04/07/2023 Active [employer] Verio w/Device KitIndications:Diab etic polyneuropathy associated with type 2 diabetes mellitus (HCC) Use as directed E11.9 1 Kit 0 04/09/2023 Active General [employer] Verio In Vitro Strip (Glucose Blood)Indications:D iabetic [...] at bedtime 45 Tablet 2 07/06/2023 Active traZODone HCl 50 MG Oral [...] encounter Miscellaneous Notes * Telephone Encounter - DawnJanna bahenaKAYLENE - 07/05/2023 5:50 PM EDT Did you pend patient's preferred pharmacy and medication before forwarding?yes Pharmacy: [facility] [address] [place] [address] Pending Prescriptions: Disp Refills Zolpidem Tartrate 10 MG Oral Tablet (Ambi*30 Tab*0 Sig: Take 1 Tablet by mouth at bedtime as needed for Sleep. traZODone HCl 50 MG Oral Tablet (Desyrel) 45 Tab*2 Sig: Take one and half tablets at bedtime Last Visit: 06/28/2023 (in office), 07/15/2019 (telemedicine) Next Visit: 07/16/2023 If no future appointments scheduled, and last appointment is greater than a year ago, please schedule patient for a follow-up appointment Last date the medication was ordered: 04/09/23 (trazodone) and 06/04/23 (zolpidem) Is this request for a controlled substance?Yes, What was the last refill date 06/04/23 w/ quantity 30 and dosage 1 QHS PRN and Urine Drug Screen Not completed Urine [...] AM HGBA1C 6.5 (H) 12/04/2019 01:51 PM * Telephone Encounter - Ronda Reilly OSA - 07/05/2023 3:36 PM EDT Pt calling requesting a refill on his traZODone HCl 50 MG Oral Tablet (Desyrel) and Zolpidem Tartrate 10 MG Oral Tablet (Ambien). Please send FLORIAN, pt would like to pick these up tomorrow. Please call pt once refill scripts are sent. Thank you. documented in this encounter Plan of Treatment Upcoming Encounters Date Type Department Care Team (Late st Contact Info) Description 07/16/2023 11:40 AM EDT Office Visit [place] [address] [place] [address] [address] Efraín Zamudio III, MD [address] [place] [address] [place] [address] 08/02/2023 9:00 AM EDT Office Visit Hematology/Oncology [facility] [place] [address] [phone] Janna [facility] CR[facility] [place] [address] 09/28/2023 12:00 PM EDT Office Visit [facility] [place] [address] [address] Efraín Zamudio III, MD [facility] [address] [address] [address] Scheduled Procedures Name Priority Associated Diagnoses Date/Ti [...] Documents on File Type Date Recorded Patient Geospatial Intelligence Analyst Expl anation Advance Directives and Living Will 11/03/2008 ADVANCE DIRECTIVE / LIVING WILL Advance Directives and Living Will 11/03/2008 ADVANCE DIRECTIVE / LIVING WILL Power of Investment Underwriter 11/03/2008 POWER OF A TTORNEY Power of Investment Underwriter 11/03/2008 POWER OF A TTORNEY Power of Investment Underwriter 11/03/2008 POWER OF A TTORNEY Care Teams Fry Cook Relationship Specialty Start Date End Date Efraín Zamudio III, MD 200 [facility] [address] PCP - General Family Medicine 06/24/21 documented as of this encounter
--- OUTSIDE RECORDS SUMMARY | 2023-08-31 21:03 | External Medical Summary | Summary of Care ---
Author Name Unknown Organization [facility] Address [address] [place] [address] Phone [phone] Care Team Providers Care Automatic Shirring Machine Operator Name Role Phone Lizz BUI MD, Efraín León Primary Care Provider [phone] Reason for Visit * Reason Onset Date Comments Test Results 04/02/2023 Encounter Details Date Type Department Care Team (Late st Contact Info) Description 04/02/2023 Telephone Family Practice [facility] [address] [place] [address] Efraín Zamudio III, MD 200 [place] [address] Test Results Allergies Active Allergy Reactions Criticality Noted Date [...] as of this encounter (statuses as of 07/02/2023) Medications Medication Sig Dispensed Refills Start Date [...] Oral Tablet (Oxy IR) 0 03/12/2023 Active Contour Next Monitor w/Device KitIndications:Diab etic polyneuropathy associated with type 2 diabetes mellitus (HCC),Diabetes type 2, uncontrolled Use as directed . 1 Kit 0 12/16/2021 4 Discontinu ed(Refill) LancetsIndications: Diabetic polyneuropathy associated with type 2 diabetes mellitus (HCC) Use as directed 5 times daily 200 Each 11 12/16/2021 4 Discontinu ed(Refill) Contour Next Test In Vitro Strip (Glucose Blood)Indications:D iabetic polyneuropathy associated with type 2 diabetes mellitus (HCC) Test five times daily for use with multiple daily insulin injections-befor e all meals, snacks, exercise, and one to two times during the night. Dx: E11.9 200 Strip 5 12/16/2021 4 Discontinu ed(Refill) Ozempic (1 MG/DOSE) 4 MG/3ML Subcutaneous Solution [...] 21 Tablet 0 01/12/2023 4 Discontinu ed(Refill) Diclofenac Sodium 1 % External Gel (Voltaren) Apply topically to affected area 4 times a day. 2 grams/ dose Apply to knee as needed for pain 100 g 1 01/21/2023 4 Discontinu ed(Refill) traZODone HCl 50 MG Oral Tablet (Desyrel) Take 1 Tablet by mouth at bedtime. 30 Tablet 2 03/14/2023 4 Discontinu ed(Refill) Zolpidem Tartrate 10 MG Oral Tablet (Ambien) Take 1 Tablet by mouth at bedtime as needed for Sleep. 30 Tablet 0 03/14/2023 4 Discontinu ed(Refill) Gabapentin 400 MG Oral Capsule (Neurontin) Take 1 Capsule by mouth in the morning and 1 Capsule at noon and 1 Capsule before bedtime. 90 Capsule 5 03/14/2023 4 Discontinu ed(Refill) Ibuprofen 600 MG Oral Tablet (Motrin) Take 1 Tablet by mouth every 8 hours as needed (Headache) for up to 10 days. 24 Tablet 0 03/16/2023 4 Discontinu ed(Refill) documented as of this encounter (statuses as of 07/02/2023) Active Problems Problem Noted Date Diagnosed Date [...] as of this encounter (statuses as of 07/02/2023) Resolved Problems Problem Noted Date Diagnosed Date [...] as of this encounter (statuses as of 07/02/2023) Immunizations Name Administration Dates Next Due COVID-19 [...] encounter Miscellaneous Notes * Telephone Encounter - Tresa Treviño OSA - 04/03/2023 11:27 AM EST Pt is returning call.. Providers message is shared although pt has multiple questions and said thatthe back pain is getting worse. He is requesting to speak with someone from the office. Please advise * Telephone Encounter - Claire Tomlin OSA - 04/02/2023 9:32 AM EST Who is Requesting Test Results: Pt Primary Care Provider : Efraín Zamudio III, MD Tests Results Requested : Ultrasound Date of Test : 03/29/2023 Location of Test: [place] Ordering Provider: Dr Zamudio Callback Number: [phone] Patient has been made aware that the turnaround time for test results are typically as follows: Laboratory results = within 2-3 days ([facility]), 3-5 days (Non[facility], ie. [facility]) Urine Cultures = within 2-3 days depending on growth within the culture Pathology results (biopsy results/PAP) = 1-2 weeks Radiology results = about 1 week Cologuard results = within 2 weeks from the shipment date COVID testing = about 24 hours documented in this encounter Plan of Treatment Upcoming Encounters Date Type Department Care Team (Late st Contact Info) Description 08/02/2023 9:00 AM EDT Office Visit Hematology/Oncology [facility] [address] [facility] [place] [address] Janna Mu[facility]oz CR[facility] [address] [facility] [place] [address] 09/28/2023 12:00 PM EDT Office Visit Family Practice [facility] [place] [address] [place] [address] Efraín Zamudio III, MD [address] [facility] [place] [address] Scheduled Procedures Name Priority Associated Diagnoses Date/Ti [...] Documents on File Type Date Recorded Patient Vocational Education Professional Expl anation Advance Directives and Living Will 11/03/2008 ADVANCE DIRECTIVE / LIVING WILL Advance Directives and Living Will 11/03/2008 ADVANCE DIRECTIVE / LIVING WILL Power of Broadband Technician 11/03/2008 POWER OF A TTORNEY Power of Broadband Technician 11/03/2008 POWER OF A TTORNEY Power of Broadband Technician 11/03/2008 POWER OF A TTORNEY Care Teams Automatic Shirring Machine Operator Relationship Specialty Start Date End Date Efraín Zamudio III, MD [address] [place] [address] PCP - General Family Medicine 06/24/21 documented as of this encounter
--- OUTSIDE RECORDS SUMMARY | 2023-08-31 21:03 | External Medical Summary | Summary of Care ---
Author Name Unknown Organization [facility] Address [address] [place] [address] Phone [phone] Care Team Providers Care Recordist Chief Name Role Phone Lizz BUI MD, Efraín León Primary Care Provider [phone] Reason for Visit * Reason Onset Date Comments Medication Problem 07/02/2023 Advice 07/02/2023 Encounter Details Date Type Department Care Team (Late st Contact Info) Description 07/02/2023 Telephone Family Practice [facility] [address] [place] [address] Efraín Zamudio III, MD 200 [place] [address] Medication Problem; Advice Allergies Active Allergy Reactions [...] as of this encounter (statuses as of 07/03/2023) Medications Medication Sig Dispensed Refills Start Date [...] at bedtime 45 Tablet 2 04/09/2023 Active PathableTouch Verio w/Device KitIndications:Diabe tic polyneuropathy associated with type 2 diabetes mellitus (HCC) Use as directed E11.9 1 Kit 0 04/09/2023 Active PathableTouch Verio In Vitro Strip (Glucose Blood)Indications:Di abetic [...] times daily 200 Each 11 04/09/2023 Active Diclofenac Sodium 1 % External [...] for Anxiety. 21 Tablet 0 05/15/2023 Active Ozempic (1 MG/DOSE) 4 MG/3ML Subcutaneous Solution Pen-injector (Semaglutide (1 MG/DOSE))Indications :Type 2 diabetes mellitus with hemoglobin A1c goal of less than 7.5% ([facility]) Inject 1 mg under the skin once a week. 3 mL 6 05/28/2023 Active Gabapentin 800 MG Oral Tablet (Neurontin) [...] for Constipation. 60 Capsule 11 07/03/2023 Active documented as of this encounter (statuses as of 07/03/2023) Active Problems Problem Noted Date Diagnosed Date [...] as of this encounter (statuses as of 07/03/2023) Resolved Problems Problem Noted Date Diagnosed Date [...] as of this encounter (statuses as of 07/03/2023) Immunizations Name Administration Dates Next Due COVID-19 [...] encounter Miscellaneous Notes * Telephone Encounter - Antonette St OSA [...] though. * Telephone Encounter - Mauricio Gifford [facility] - 07/02/2023 8:11 AM EDT Patient [...] Pharmacist [facility] ([facility]) (Formerly [employer] [facility]) [phone] 07/02/2023, 8:27 AM * Telephone Encounter - Sharita Ortiz CPhT - 07/02/2023 8:07 AM EDT Patient called in with side effects from Ferrous Sulfate 325 (65 Fe) MG Oral Tablet (Feosol), bloating and constipation. Warm transferred to [facility] for consultation. Thank you, Sharita Ortiz Wastewater Plant Operator [facility] ([facility]) (Formerly [facility]) 07/02/2023,8:08 AM documented in this encounter Plan of Treatment Upcoming Encounters Date Type Department Care Team (Late st Contact Info) Description 08/02/2023 9:00 AM EDT Office Visit Hematology/Oncology [facility] [place] [address] [place] [address] Janna Muñoz CRNP [address] [place] [address] 09/28/2023 12:00 PM EDT Office Visit [facility] [address] [facility] [place] [address] Efraín Zamudio III, MD [address] [facility] [place] [address] Scheduled Procedures Name Priority Associated Diagnoses Date/Ti [...] Documents on File Type Date Recorded Patient Extrusion Process Operator Expl anation Advance Directives and Living Will 11/03/2008 ADVANCE DIRECTIVE / LIVING WILL Advance Directives and Living Will 11/03/2008 ADVANCE DIRECTIVE / LIVING WILL Power of Model Maker Scale 11/03/2008 POWER OF A TTORNEY Power of Model Maker Scale 11/03/2008 POWER OF A TTORNEY Power of Model Maker Scale 11/03/2008 POWER OF A TTORNEY Care Teams Recordist Chief Relationship Specialty Start Date End Date Efraín Zamudio III, MD 200 [place] [address] PCP - General Family Medicine 06/24/21 documented as of this encounter
--- OUTSIDE RECORDS SUMMARY | 2023-08-31 21:03 | External Medical Summary | Summary of Care ---
Author Name Unknown Organization [facility] Address [address] [place] [address] Phone [phone] Care Team Providers Care Stonecutter Apprentice Hand Name Role Phone Lizz BUI MD, Efraín León Primary Care Provider [phone] Reason for Visit * Reason Onset Date Comments Medication Refill 06/27/2023 Encounter Details Date Type Department Care Team (Late st Contact Info) Description 06/27/2023 Refill Family Practice [facility] [address] [place] [address] Efraín Zamudio III, MD [address] [place] [address] Allergies Active Allergy Reactions Criticality Noted Date [...] as of this encounter (statuses as of 06/28/2023) Medications Medication Sig Dispensed Refills Start Date [...] at bedtime 45 Tablet 2 04/09/2023 Active Ivalua w/Device KitIndications:Diab etic polyneuropathy associated with type 2 diabetes mellitus (HCC) Use as directed E11.9 1 Kit 0 04/09/2023 Active SanteVet Verio In Vitro Strip (Glucose Blood)Indications:D iabetic [...] needed (Headache). 24 Tablet 1 06/28/2023 Active Ibuprofen 600 MG Oral Tablet (Motrin) Take 1 Tablet by mouth every 8 hours as needed (Headache). 24 Tablet 0 06/20/2023 Discontinu ed(Refill) documented as of this encounter (statuses as of 06/28/2023) Active Problems Problem Noted Date Diagnosed Date [...] as of this encounter (statuses as of 06/28/2023) Resolved Problems Problem Noted Date Diagnosed Date [...] as of this encounter (statuses as of 06/28/2023) Immunizations Name Administration Dates Next Due COVID-19 [...] encounter Miscellaneous Notes * Telephone Encounter - Reyna Thomas RPh - 06/28/2023 11:51 AM EDTSigned Prescriptions: Disp Refills Ibuprofen 600 MG Oral Tablet (Motrin) 24 Tab*1 Sig: Take 1 Tablet by mouth every 8 hours as needed (Headache). Authorizing Provider: PAUL CHOI Ordering User: REYNA THOMAS * Telephone Encounter - Dee Dee Ashton CPhT - 06/27/2023 11:04 AM EDT Did you pend patient's preferred pharmacy and medication before forwarding?yes Pharmacy: [facility] [address] Pending Prescriptions: Disp Refills Ibuprofen 600 MG Oral Tablet (Motrin) 24 Tab*0 Sig: Take 1 Tablet by mouth every 8 hours as needed (Headache). Last Visit: 03/14/2023 (in office), 07/15/2019 (telemedicine) Next Visit: 06/28/2023 If no future appointments scheduled, and last appointment is greater than a year ago, please schedule patient for a follow-up appointment Last date the medication was ordered: 06/20/2023 Is this request for a controlled substance?No [...] documented in this encounter Plan of Treatment Scheduled Procedures Name Priority Associated Diagnoses Date/Ti [...] ASSESSMENT COMPLETED IN PAST YEAR FOR COPD 03/14/2024 03/14/2023 Pneumococcal Vaccine: Pediatrics (0 to 5 Years) [...] Documents on File Type Date Recorded Patient Tub Mender Expl anation Advance Directives and Living Will 11/03/2008 ADVANCE DIRECTIVE / LIVING WILL Advance Directives and Living Will 11/03/2008 ADVANCE DIRECTIVE / LIVING WILL Power of Energy Analyst 11/03/2008 POWER OF A TTORNEY Power of Energy Analyst 11/03/2008 POWER OF A TTORNEY Power of Energy Analyst 11/03/2008 POWER OF A TTORNEY Care Teams Stonecutter Apprentice Hand Relationship Specialty Start Date End Date Efraín Zamudio III, MD [address] [place] [address] PCP - General Family Medicine 06/24/21 documented as of this encounter
--- OUTSIDE RECORDS SUMMARY | 2023-08-31 21:03 | External Medical Summary | Summary of Care ---
Author Name Unknown Organization [facility] Address [address] [place] [address] Phone [phone] Care Team Providers Care Pigs Feet Cleaner Name Role Phone Lizz BUI MD, Efraín León Primary Care Provider [phone] Encounter Details Date Type Department Care Team (Late st Contact Info) Description 05/23/2023 Telephone Family Practice [facility] 200 [facility] [address] Efraín Zamudio III, MD [address] [place] [address] Allergies Active Allergy Reactions Criticality Noted Date [...] at bedtime 45 Tablet 2 04/09/2023 Active OpenCloud Verio w/Device KitIndications:Diab etic polyneuropathy associated with type 2 diabetes mellitus (HCC) Use as directed E11.9 1 Kit 0 04/09/2023 Active AlgotochipTouch Verio In Vitro Strip (Glucose Blood)Indications:D iabetic [...] 90 Tablet 5 04/30/2023 4 Discontinu ed(Refill) Zolpidem Tartrate 10 MG Oral Tablet (Ambien) Take 1 Tablet by mouth at bedtime as needed for Sleep. 30 Tablet 0 05/07/2023 4 Discontinu ed(Refill) documented as of this [...] Miscellaneous Notes * Telephone Encounter - Agata Bolden LPN - 06/28/2023 11:40 AM EDT These were faxed back. * Telephone Encounter - Brenda Thompson OSA - 06/07/2023 7:35 AM EDT Still waiting for original plan of care dated 05/17/23 and revised dated 05/17/23 to be signed and returned * Telephone Encounter - Agata Bolden LPN - 05/30/2023 4:51 PM EST I placed the forms in Dr. Zamudio's bin for review and signature if agreeable. * Telephone Encounter - Maris Hyatt OSA - 05/23/2023 12:38 PM EST Received a call asking if fax was received by office. Name/Company sending fax: [facility] What fax is pertaining to: Plan of care Date(s) they sent request: 04/27-05/23 Verified fax number they are sending to is correct (Y or N): yes Callback Number for the clinic to call to verified if fax was received: [phone] documented in this encounter Plan of Treatment [...] Documents on File Type Date Recorded Patient Plant Operator Control Room Operator Expl anation Advance Directives and Living Will 11/03/2008 ADVANCE DIRECTIVE / LIVING WILL Advance Directives and Living Will 11/03/2008 ADVANCE DIRECTIVE / LIVING WILL Power of Rand Butter 11/03/2008 POWER OF A TTORNEY Power of Rand Butter 11/03/2008 POWER OF A TTORNEY Power of Rand Butter 11/03/2008 POWER OF A TTORNEY Care Teams Pigs Feet Cleaner Relationship Specialty Start Date End Date Efraín Zamudio III, MD [address] [place] [address] PCP - General Family Medicine 06/24/21 documented as of this encounter
--- OUTSIDE RECORDS SUMMARY | 2023-08-31 21:03 | External Medical Summary | Summary of Care ---
Author Name Unknown Organization [facility] Address [address] [place] [address] Phone [phone] Care Team Providers Care Supplier Diversity Director Name Role Phone Lizz BUI MD, Efraín León Primary Care Provider [phone] Reason for Visit * Reason Onset Date Comments Medication Refill 06/01/2023 Encounter Details Date Type Department Care Team (Late st Contact Info) Description 06/01/2023 Refill Family Practice [facility] 200 [place] [address] Efraín Zamudio III, MD [address] [place] [address] Allergies Active Allergy Reactions Criticality Noted Date [...] as of this encounter (statuses as of 06/29/2023) Medications Medication Sig Dispensed Refills Start Date [...] at bedtime 45 Tablet 2 04/09/2023 Active SimpliVity w/Device KitIndications:Diab etic polyneuropathy associated with type 2 diabetes mellitus (HCC) Use as directed E11.9 1 Kit 0 04/09/2023 Active TOMODO Verio In Vitro Strip (Glucose Blood)Indications:D iabetic [...] hemoglobin A1c goal of less than 7.5% ([facility]) Inject 1 mg under the skin once a week. 3 mL 6 05/28/2023 Active Gabapentin 800 MG Oral Tablet (Neurontin) Take 1 Tablet by mouth in the morning and 1 Tablet at noon and 1 Tablet before bedtime. 90 Tablet 4 06/01/2023 Active Gabapentin 800 MG Oral Tablet (Neurontin) Take 1 Tablet by mouth in the morning and 1 Tablet at noon and 1 Tablet before bedtime. 90 Tablet 5 04/30/2023 4 Discontinu ed(Refill) Zolpidem Tartrate 10 MG Oral Tablet (Ambien) Take 1 Tablet by mouth at bedtime as needed for Sleep. 30 Tablet 0 05/07/2023 4 Discontinu ed(Refill) Ibuprofen 600 MG Oral Tablet (Motrin) Take 1 Tablet by mouth every 8 hours as needed (Headache). 24 Tablet 1 05/28/2023 4 Discontinu ed(Refill) documented as of this encounter (statuses as of 06/29/2023) Active Problems Problem Noted Date Diagnosed Date [...] as of this encounter (statuses as of 06/29/2023) Resolved Problems Problem Noted Date Diagnosed Date [...] as of this encounter (statuses as of 06/29/2023) Immunizations Name Administration Dates Next Due COVID-19 [...] encounter Miscellaneous Notes * Telephone Encounter - Radha Osuna PHARM Tech - 06/29/2023 9:18 AM EDT Called pharmacy once opened. Spoke with [facility] who confirms they do have the Rx on file for Gabapentinand will fill today for him. Thank You, Radha Osuna CPhT Research Associate II [facility] ([facility]) (Formerly [facility]) 06/29/2023, 9:18 AM * Telephone Encounter - Radha Osuna PHARM Tech - 06/29/2023 9:00 AM EDT Pt calling in for refill on Gabapentin. Advised refills at pharmacy. Pt unsure if transferred to [place] to [place] when merger happened. Will call pharmacy once opens to verify. Thank You, Radha Osuna CPhT Research Associate II [facility] ([facility]) (Formerly Telepharmacy) 06/29/2023, 9:00 AM * Telephone Encounter - Robert Rodriges RP - 06/01/2023 3:31 PM ESTSigned Prescriptions: Disp Refills Gabapentin 800 MG Oral Tablet (Neurontin) 90 Tab*4 Sig: Take 1 Tablet by mouth in the morning and 1 Tablet at noon and 1 Tablet before bedtime.Authorizing Provider:VITO WASHINGTON User: ROBERT RODRIGES * Telephone Encounter - Ewa Martins CPhT - 06/01/2023 3:19 PM EST Pt is asking high priority Please reroute Rx to [facility] [address] [place]. Pending Prescriptions: Disp Refills Gabapentin 800 MG Oral Tablet (Neurontin) 90 Tab*3 Sig: Take 1 Tablet by mouth in the morning and 1 Tablet at noon and 1 Tablet before bedtime. Last Visit: 03/14/2023 (in office), 07/15/2019 (telemedicine) 06/18/2023 If no future appointments scheduled, and last appointment is greater than a year ago, please schedule patient for a follow-up appointment Last date the medication was ordered: 04/30/2023 Patient Phone Numbers Labs: Lab Results Component [...] Care Team (Late st Contact Info) Description 09/28/2023 12:00 PM EDT Office Visit Family Practice [facility] [place] [address] [facility] [place] [address] Efraín Zamudio III, MD [address] [facility] [place] [address] Scheduled Procedures Name Priority Associated Diagnoses Date/Ti [...] Documents on File Type Date Recorded Patient Chassis Inspector Expl anation Advance Directives and Living Will 11/03/2008 ADVANCE DIRECTIVE / LIVING WILL Advance Directives and Living Will 11/03/2008 ADVANCE DIRECTIVE / LIVING WILL Power of Cop Examiner 11/03/2008 POWER OF A TTORNEY Power of Cop Examiner 11/03/2008 POWER OF A TTORNEY Power of Cop Examiner 11/03/2008 POWER OF A TTORNEY Care Teams Supplier Diversity Director Relationship Specialty Start Date End Date Efraín Zamudio III, MD 200 [place] [address] PCP - General Family Medicine 06/24/21 documented as of this encounter
--- OUTSIDE RECORDS SUMMARY | 2023-08-31 21:03 | External Medical Summary | Summary of Care ---
Author Name Unknown Organization [facility] Address [address] [place] [address] Phone [phone] Care Team Providers Care Senior Outside Sales Representative Name Role Phone Lizz BUI MD, Efraín León Primary Care Provider [phone] Reason for Visit * Reason Onset Date Comments Med Request 06/28/2023 Encounter Details Date Type Department Care Team (Late st Contact Info) Description 06/28/[address] [facility] [address] [facility] [place] [address] Efraín Zamudio III, MD 200 [place] [address] Med Request Allergies Active Allergy Reactions Criticality [...] at bedtime 45 Tablet 2 04/09/2023 Active Osper Verio w/Device KitIndications:Diabe tic polyneuropathy associated with type 2 diabetes mellitus (HCC) Use as directed E11.9 1 Kit 0 04/09/2023 Active BluechilliTouch Verio In Vitro Strip (Glucose Blood)Indications:Di abetic [...] encounter Miscellaneous Notes * Telephone Encounter - Natasha Hernandez vice chairman - 06/28/2023 3:03 PM EDT Patient calling to inform doctor that the patient's insurance will not pay for this medication without a completed prior authorization. Did confirm this information with the pharmacy. I called pharmacy - this time rx does not need pa I called pt back he can pick this up today Thank you for your assistance Natasha Hernandez Acute Care Physical Therapist II [facility] ([facility]) (Formerly Telepharm[facility]) 06/28/2023,3:07 PM documented in this encounter Plan of Treatment Upcoming Encounters Date Type Department Care Team (Late st Contact Info) Description 09/28/2023 12:00 PM EDT Office Visit [facility] [address] [place] [address] Efraín Zamudio III, MD [address] [place] [address] Scheduled Procedures Name Priority Associated Diagnoses Date/Ti [...] Documents on File Type Date Recorded Patient Lcac Radar Operator/Navigator Expl anation Advance Directives and Living Will 11/03/2008 ADVANCE DIRECTIVE / LIVING WILL Advance Directives and Living Will 11/03/2008 ADVANCE DIRECTIVE / LIVING WILL Power of Retail Sales Representative 11/03/2008 POWER OF A TTORNEY Power of Retail Sales Representative 11/03/2008 POWER OF A TTORNEY Power of Retail Sales Representative 11/03/2008 POWER OF A TTORNEY Care Teams Senior Outside Sales Representative Relationship Specialty Start Date End Date Efraín Zamudio III, MD 200 [place] [address] PCP - General Family Medicine 06/24/21 documented as of this encounter
--- OUTSIDE RECORDS SUMMARY | 2023-08-31 21:03 | External Medical Summary | Summary of Care ---
Author Name Unknown Organization [facility] Address [address] [place] [address] Phone [phone] Care Team Providers Care Hydrotreater Operator Name Role Phone Lizz BUI MD, Efraín León Primary Care Provider [phone] Reason for Visit * Reason Onset Date Comments Medication Refill 06/01/2023 Encounter Details Date Type Department Care Team (Late st Contact Info) Description 06/01/2023 Refill Family Practice [facility] [address] [place] [address] Efraín Zamudio III, MD [address] [place] [address] Allergies Active Allergy Reactions Criticality Noted Date [...] at bedtime 45 Tablet 2 04/09/2023 Active Rayku w/Device KitIndications:Diab etic polyneuropathy associated with type 2 diabetes mellitus (HCC) Use as directed E11.9 1 Kit 0 04/09/2023 Active Telormedix Verio In Vitro Strip (Glucose Blood)Indications:D iabetic [...] A1c goal of less than 7.5% ([facility]) Inject 1 mg under the skin once [...] PHARM Tech - 06/29/2023 9:00 AM EDT T calling in for refill on Gabapentin. Advised refills at pharmacy. Pt unsure if transferred to [facility] when merger happened. Will call pharmacy once opens to verify. Thank You, Radha Osuna CPhT Sheriff Deputy II [facility] ([facility]) (Formerly [facility]) 06/29/2023, 9:00 AM * Telephone Encounter - Robert Rodriges [facility] - 06/01/2023 3:31 PM ESTSigned Prescriptions: Disp Refills Gabapentin 800 MG Oral Tablet (Neurontin) 90 Tab*4 Sig: Take 1 Tablet by mouth in the morning and 1 Tablet at noon and 1 Tablet before bedtime.Authorizing Provider:VITO WASHINGTON User: ROBERT RODRIGES * Telephone Encounter - Ewa Martins CPhT - 06/01/2023 3:19 PM EST Pt is asking high priority Please reroute Rx to [facility] [place]. Pending Prescriptions: Disp Refills [...] EDT Office Visit Family Practice [place] 200 [place] [address] Efraín Zamudio III, MD [address] [facility] [place] [address] Scheduled Procedures Name Priority Associated Diagnoses Date/Ti [...] Documents on File Type Date Recorded Patient Assembler Camper Expl anation Advance Directives and Living Will 11/03/2008 ADVANCE DIRECTIVE / LIVING WILL Advance Directives and Living Will 11/03/2008 ADVANCE DIRECTIVE / LIVING WILL Power of Emulsion Operator 11/03/2008 POWER OF A TTORNEY Power of Emulsion Operator 11/03/2008 POWER OF A TTORNEY Power of Emulsion Operator 11/03/2008 POWER OF A TTORNEY Care Teams Hydrotreater Operator Relationship Specialty Start Date End Date Lizz BUI, Efraín León MD 200 [place] [address] PCP - General Family Medicine 06/24/21 documented as of this encounter
--- OUTSIDE RECORDS SUMMARY | 2023-08-31 21:03 | External Medical Summary | Summary of Care ---
Author Name Unknown Organization [facility] Address [address] [place] [address] Phone [phone] Care Team Providers Care Coo Name Role Phone Lizz BUI MD, Efraín León Primary Care Provider [phone] Reason for Referral * Ancillary Services (Within 3 days (urgent)) - Pending Review Specialty Diagnoses / Procedures Referred By Toshia marino Referred To Contact Mainframe Software Developer Diagnoses Malignant neoplasm metastatic to brain (HCC) Small cell lung cancer (HCC) Efraín Zamudio III, MD [address] [place] [address] Referral ID Status Reason Start Date Expiration Date Visits Requested Visits Authorized [id number] Pending Review Ancillary Services Required 06/28/[phone] Question Answer Referral Priority Within 3 days (urgent) Where should this appointment be scheduled? [facility] * Evaluate & Treat - Unlimited Visits (Within 10 days (routine)) - Pending Review Specialty Diagnoses / Procedures Referred By Toshia marino Referred To Contact Hematology/Oncology / Hematology Oncology Diagnoses Malignant neoplasm metastatic to brain (HCC) Small cell lung cancer (HCC) Efraín Zamudio III, MD [address] [place] [address] Referral ID Status Reason Start Date Expiration Date Visits Requested Visits Authorized [id number] Pending Review Specialty Services Required 06/28/[phone] Question Answer Referral Priority Within 10 days (routine) Where should this appointment be scheduled? [facility] Reason for Referral Malignant Oncology (Solid Organ Cancer) Reason for Visit * Reason Comments Return Visit Wants to discuss chantelle k surgery Encounter Details Date Type Department Care Team (Latest Contact Info) Description 06/28/2023 11:40 AM EDT Office Visit Family Practice [place] 200 [facility] [place] [address] Efraín Zamudio III, MD 200 [facility] [place] [address] Diabetic polyneuropathy associated with type 2 diabetes mellitus (HCC)*; Malignant neoplasm metastatic to brain (HCC); Small cell lung cancer (HCC); COPD, severity to be determined (HCC); Major depressive disorder, recurrent episode, moderate (HCC); Atrial fibrillation, unspecified type (HCC) Allergies Active Allergy Reactions Criticality Noted [...] as of this encounter (statuses as of 07/01/2023) Medications Medication Sig Dispensed Refills Start Date [...] at bedtime 45 Tablet 2 04/09/2023 Active OneTouch Verio w/Device KitIndications:Diab etic polyneuropathy [...] for Sleep. 30 Tablet 0 06/04/2023 Active Ferrous Sulfate 325 (65 Fe) MG Oral Tablet (Feosol) Take 1 Tablet by mouth in the morning and 1 Tablet before bedtime. 60 Tablet 11 06/28/2023 Active Ibuprofen 600 MG Oral Tablet (Motrin) Take 1 Tablet by mouth every 8 hours as needed (Headache). 24 Tablet 0 06/20/2023 Discontinu ed(Refill) documented as of this encounter (statuses as of 07/01/2023) Active Problems Problem Noted Date Diagnosed Date [...] as of this encounter (statuses as of 07/01/2023) Resolved Problems Problem Noted Date Diagnosed Date [...] as of this encounter (statuses as of 07/01/2023) Immunizations Name Administration Dates Next Due COVID-19 [...] 0 09/20/1983 - 09/19/2016 Smokeless Tobacco: Never Tobacco Cessation:Counseling Given: Not Answered Alcohol Use Standard Drinks/Week Comments No 0 [...] Sign Reading Time Taken Comments Blood Pressure 112/66 06/28/2023 11:39 AM EDT Pulse 88 06/28/2023 11:39 AM EDT Temperature 37.1 C (98.8 F) 06/28/2023 11:39 AM E DT Respiratory Rate 16 06/28/2023 11:39 AM EDT Oxygen Saturation 96% 06/28/2023 11:39 AM EDT Inhaled Oxygen Concentration - - Weight 107 kg (236 lb) 06/28/2023 11:39 AM EDT Height - - Body Mass Index 28.73 03/14/2023 7:56 AM EST documented in this encounter Progress Notes * Efraín Zamudio III, MD - 07/01/2023 7:53 AM EDT Dann Carcamo is a 62 year old male. Chief Complaint Patient presents with Return Visit Wants to discuss back surgery HPI: Follow-up diabetes mellitus neuropathy hypertension history of small cell cancer brain Mets was seeing Hematology-Oncology somehow follow-up got lost need to re-institute has shaking feeling worse in his legs but maybe a little bit in his hands as well particularly at night has to get up this seems to help history of restless leg syndrome last ferritin though normal on the lower end has not n oticed any bleeding urine or bowels has back issues lives by himself denies chest pain shortness ofbreath PMH: Patient Active Problem List Diagnosis Code Esophageal reflux K21.9 Spinal stenosis of lumbar region without neurogenic claudication M48.061 DYSLIPIDEMIA, GOAL LDL BELOW 100 E78.5 Tobacco use disorder F17.200 Diabetic polyneuropathy ([facility]) E11.42 MEDICATION USE AGREEMENT [id number] Postlaminectomy syndrome M96.1 HTN, goal below 140/90 I10 COPD, severity to be determined ([facility]) J44.9 Anxiety and depression F41.9, F32.A Insulin dependent type 2 diabetes mellitus ([facility]) E11.9, Z79.4 Brain metastasis C79.31 Small cell lung cancer ([facility]) C34.90 Major depressive disorder, recurrent episode, moderate ([facility]) F33.1 Chronic back pain M54.9, G89.29 Laceration of toe S91.119A Tenosynovitis of left foot M65.9 Atrial fibrillation ([facility]) I48.91 Amputation of toe of right foot ([facility]) S98.131A Type 2 diabetes mellitus with hemoglobin A1c goal of less than 7.5% ([facility]) E11.9 Current Outpatient Medications Medication Sig Dispense Refill Gauze Pads 4"X4" Pad Apply to the foot daily with silvadene cream. 100 Each 5 Rosuvastatin Calcium 40 MG Oral Tablet (Crestor) Take 1 Tablet by mouth at bedtime. 90 Tablet 1 Lancets Use as directed 5 times daily 200 Each 11 traZODone HCl 50 MG Oral Tablet (Desyrel) Take one and half tablets at bedtime 45 Tablet 2 OneTouch Verio w/Device Kit Use as directed E11.9 1 Kit 0 OneTouch Verio In Vitro Strip (Glucose Blood) Test five times daily for use with multiple daily insulin injections-before all meals, snacks, exercise, and one to two times during the night. Dx: E11.9200 Strip 11 OneTouch UltraSoft Lancets Use as directed 5 times daily 200 Each 11 Diclofenac Sodium 1 % External Gel (Voltaren) Apply topically to affected area 4 times a day. 2 grams/ dose Apply to knee as needed for pain 100 g 1 Accu-Chek Guide w/Device Kit Use as directed. 1 Kit 0 Accu-Chek Guide In Vitro Strip (Glucose Blood) Test five times daily for use with multiple daily insulin injections-before all meals, snacks, exercise, and one to two times during the night. Dx: E11.9 100 Strip 3 Esomeprazole Magnesium 40 MG Oral Capsule Delayed Release (NexIUM) Take 1 Capsule by mouth in the morning. 1 hour before the first meal of the day. 30 Capsule 11 LORazepam 0.5 MG Oral Tablet (Ativan) Take 1 Tablet by mouth every 8 hours as needed for Anxiety. 21 Tablet 0 Ozempic (1 MG/DOSE) 4 MG/3ML Subcutaneous Solution Pen-injector (Semaglutide (1 MG/DOSE)) Inject 1 mg under the skin once a week. 3 mL 6 Gabapentin 800 MG Oral Tablet (Neurontin) Take 1 Tablet by mouth in the morning and 1 Tablet at noon and 1 Tablet before bedtime. 90 Tablet 5 Gabapentin 800 MG Oral Tablet (Neurontin) Take 1 Tablet by mouth in the morning and 1 Tablet at noon and 1 Tablet before bedtime. 90 Tablet 4 Zolpidem Tartrate 10 MG Oral Tablet (Ambien) Take 1 Tablet by mouth at bedtime as needed for Sleep.30 Tablet 0 Ferrous Sulfate 325 (65 Fe) MG Oral Tablet (Feosol) Take 1 Tablet by mouth in the morning and 1 Tablet before bedtime. 60 Tablet 11 Silver sulfADIAZINE 1 % External Cream (Silvadene) Apply topically to affected area daily. Apply tofoot. (Patient not taking: Reported on 06/28/2023) 50 g 1 Rizatriptan Benzoate 10 MG Oral Tablet [...] IR) (Patient not taking: Reported on 03/14/2023) Ibuprofen 600 MG Oral Tablet (Motrin) Take 1 Tablet by mouth every 8 hours as needed (Headache). 24Tablet 1 No current facility-administered medications for this [...] (BMI) of 40.0 to 44.9 in adult ([facility]) 11/06/2017 Per Obesity protocol #1 - Brain metastasis 12/28/2017 Chronic back pain 11/22/2020 COPD, severity to be determined ([facility]) 08/28/2017 Diabetic polyneuropathy ([facility]) 09/07/2009 Dyslipidemia, goal LDL below 100 03/10/2009 Per Lipid Taxonomy. HTN, goal to be determined Pulmonary embolism ([facility]) 03/12/2017 Small cell lung cancer ([facility]) 12/28/2017 Spinal stenosis of lumbar region without neurogenic claudication 06/24/2008 Has had at least 4 surgeries on his back. Type 2 diabetes mellitus with hemoglobin A1c goal of less than 7.5% ([facility]) 11/20/2017 Past Surgical History: Procedure Laterality Date COLONOSCOPY, DIAGNOSTIC (RECTUM) 08/20/2014 adenomatous & hyperplastic polyps, diverticulosis, repeat 5 yrs/COLONOSCOPY FLEXIBLE PROXIMAL DIAGNOSTIC performed by Nahid Santana MD at [facility] INCISION OF HEART SAC FOR DRAINAGE N/A 12/12/2019 pericardial drain placment performed by Eliud Chance MD at OR [facility]PR UMBILICAL HRNA 5 YRSOR MORE REDUCIBLE PROCEDURE - GENERAL 05/02/2021 Dr Nato Sun, incisional/ventral hernia SPINAL FIXATION, INTERNAL, BY WIRE 03/26/1997 4 lumbar spine operations Objective: The patient is a 62 year old male BP 112/66 (BP Site: Left Arm, BP Position: Sitting, BP Cuff Size: Regular) | Pulse 88 | Temp 37.1 C (98.8 F) (Tympanic) | Resp 16 | Wt 107 kg (236 lb) | SpO2 96% | BMI 28.73 kg/m | BSA 2.4 m General: alert and no distress Eye Exam: PERRLA, extraocular movements intact, conjunctiva are pink and non- injected, sclera clear Oropharynx: no exudate, no erythema, lips, buccal mucosa, and tongue normal, and mucous membranes are moist Heart: regular rate & rhythm, no murmur, and no gallops Lungs: lungs clear to auscultation Extremities: Without cyanosis clubbing edema has wrapped right knee ASSESSMENT: C79.31 Malignant neoplasm metastatic to brain (HCC) C34.90 Small cell lung cancer (HCC) J44.9 COPD, severity to be determined (HCC) F33.1 Major depressive disorder, recurrent episode, moderate (HCC) I48.91 Atrial fibrillation, unspecified type (HCC) E11.42 Diabetic polyneuropathy associated with type 2 diabetes mellitus (HCC) PLAN: Check microalbumin A1c social service consult begin iron try an get ferritin level higher see if this makes a difference with his shaking symptoms Hematology-Oncology referral wishes spinal surgery appointment at [facility] Follow up in 2 month(s). Efraín Zamudio III, MD documented in this encounter Nursing Notes * Vick Spencer MED ASSIST - 06/28/2023 11:31 AM EDT The patient has been properly identified by confirmation of name and date of . Chief Complaint Patient presents with Return Visit Wants to discuss back surgery documented in this encounter Plan of Treatment Upcoming Encounters Date Type Department Care Team (Late st Contact Info) Description 09/28/2023 12:00 PM EDT [facility] [address] [place] [address] Efraín Zamudio III, MD [address] [place] [address] Scheduled Orders Name Type Priority Associated Diagnoses Orde r Schedule HEMOGLOBIN A1C Lab Routine Diabetic polyneuropathy associated with type 2 diabetes mellitus (HCC) Expected: 06/28/2023 (Approximate), Expires: 06/27/2024 ALBUMIN / CREATININE RATIO, URINE Lab Routine Diabetic polyneuropathy associated with type 2 diabetes mellitus (HCC) Expected: 06/28/2023 (Approximate), Expires: 06/27/2024 Scheduled Procedures Name Priority Associated Diagnoses Date/Ti me COLONOSCOPY FLEXIBLE PROXIMAL DIAGNOSTIC Recall History of colon polyps Scheduled Referrals Name Type Priority Associated Diagnoses Orde r Schedule HEMATOLOGY/ONCOLOGY REFERRAL OP Referral Within 10 days (routine) Malignant neoplasm metastatic to brain (HCC) Small cell lung cancer (HCC) Ordered: 06/28/2023 SOCIAL SERVICE REFERRAL OP Referral Within 3 days (urgent) Malignant neoplasm metastatic to brain (HCC) Small cell lung cancer (HCC) Ordered: 06/28/2023 Health Maintenance Due Date Last Done Comments [...] polyneuropathy associated with type 2 diabetes mellitus (HCC)- Primary Malignant neoplasm metastatic to brain (HCC) Secondary malignant neoplasm of brain and spinal cord Small cell lung cancer (HCC) Malignant neoplasm of bronchus and lung, unspecified site COPD, severity to be determined (HCC) Chronic airway obstruction, not elsewhere classified Major depressive disorder, recurrent episode, moderate (HCC) Major depressive disorder, recurrent episode, moderate Atrial fibrillation, unspecified type (HCC) documented in this encounter Advance Directives Documents on File Type Date Recorded Patient It Systems Analyst Expl anation Advance Directives and Living Will 11/03/2008 ADVANCE DIRECTIVE / LIVING WILL Advance Directives and Living Will 11/03/2008 ADVANCE DIRECTIVE / LIVING WILL Power of Maintenance Inspector 11/03/2008 POWER OF A TTORNEY Power of Maintenance Inspector 11/03/2008 POWER OF A TTORNEY Power of Maintenance Inspector 11/03/2008 POWER OF A TTORNEY Care Teams Coo Relationship Specialty Start Date End Date Efraín Zamudio III, MD [address] [place] [address] PCP - General Family Medicine 06/24/21 documented as of this encounter
--- OUTSIDE RECORDS SUMMARY | 2023-08-31 21:03 | External Medical Summary | Summary of Care ---
Author Name Unknown Organization [facility] Address [address] [place] [address] Phone [phone] Care Team Providers Care Package Crimper Name Role Phone Lizz BUI MD, Efraín León Primary Care Provider [phone] Reason for Visit * Reason Onset Date Comments Referral 04/02/2023 Water therapy, r eferral needs [facility] Encounter Details Date Type Department Care Team (Late st Contact Info) Description 04/02/[address] [facility] [address] [facility] [place] [address] Efraín Zamudio III, MD 200 [place] [address] Referral (Water therapy, referral needs re... Allergies Active Allergy Reactions Criticality Noted Date [...] times daily 200 Each 11 04/07/2023 Active documented as of this encounter (statuses [...] Telephone Encounter - Puja Mckeon LPN - 04/12/2023 9:07 AM EST Patient returned call. Informed of message. Verbalized understanding. He a referral was placed for [facility] in January for his lower back pain and weakness in legs, he has never heard anything from [facility]. He has an MRI scheduled for 05/03. Is he still to do PT? Or should he wait? If yes referral will needsent. * Telephone Encounter - Nina Cunningham RN - 04/12/2023 8:46 AM EST Left message for pt to call back. * Telephone Encounter - Cristina Guido OSA - 04/02/2023 2:14 PM EST Has the patient been seen for this problem? (Y/N)?: yes If No, an appt needs to be scheduled before a referral will be placed (exception: proceed with referral request if referral request is for a yearly routine appointment with speciality) Patient Name: Dann Carcamo Patient Primary care provider: Efraín Zamudio III, MD Does this need to be an insurance referral (Y/N)?: yes If Yes, does the insurance referral need to be placed into the [facility] system? unsure Name of preferred specialist: [facility]illon Type of specialist: water therapy, PT? Location of specialist: [facility] [place] Specialist's Phone #: could not obtain Specialist's Fax #: could not obtain Reason for visit: Lower extremity strengthening Date of visit: tbd documented in this encounter Plan of Treatment Upcoming Encounters Date Type Department Care Team (Late st Contact Info) Description 08/02/2023 9:00 AM EDT Office Visit Hematology/Oncology [address] [place] [phone] Janna Muñoz CRNP [address] [facility] [place] [address] 09/28/2023 12:00 PM EDT Office Visit Family Practice [facility] 200 [facility] [place] [address] Efraín Zamudio III, MD 200 [facility] [place] [address] Scheduled Procedures Name Priority Associated Diagnoses Date/Ti [...] 2) 08/23/2022 06/28/2022, 11/24 HbA1c 06/30/2023 12/29/2022, 0407/2022, 04/14/2021, Additional history exists Albumin/Creatinine Ratio 07/12/202307/11/2 [...] Documents on File Type Date Recorded Patient Broadcaster Expl anation Advance Directives and Living Will 11/03/2008 ADVANCE DIRECTIVE / LIVING WILL Advance Directives and Living Will 11/03/2008 ADVANCE DIRECTIVE / LIVING WILL Power of Soil Chemist 11/03/2008 POWER OF A TTORNEY Power of Soil Chemist 11/03/2008 POWER OF A TTORNEY Power of Soil Chemist 11/03/2008 POWER OF A TTORNEY Care Teams Package Crimper Relationship Specialty Start Date End Date Efraín Zamudio III, MD [address] [facility] [place] [address] PCP - General Family Medicine 06/24/21 documented as of this encounter
--- OUTSIDE RECORDS SUMMARY | 2023-08-31 21:03 | External Medical Summary | Summary of Care ---
Author Name Unknown Organization [facility] Address [address] [place] [address] Phone [phone] Care Team Providers Care Campus Security Director Name Role Phone iLzz BUI MD, Efraín León Primary Care Provider [phone] Reason for Visit * Reason Onset Date Comments Medication Problem 07/02/2023 Advice 07/02/2023 Encounter Details Date Type Department Care Team (Late st Contact Info) Description 07/02/2023 Telephone Family Practice [facility] [address] [facility] [place] [address] Efraín Zamudio III, MD 200 [place] [place] [address] Medication Problem; Advice Allergies Active Allergy Reactions [...] at bedtime 45 Tablet 2 04/09/2023 Active WorkhintTouch Verio w/Device KitIndications:Diabe tic polyneuropathy associated with type 2 diabetes mellitus (HCC) Use as directed E11.9 1 Kit 0 04/09/2023 Active WorkhintTouch Verio In Vitro Strip (Glucose Blood)Indications:Di abetic [...] A1c goal of less than 7.5% ([facility]) Inject 1 mg under the [...] leg though. * Telephone Encounter - Mauricio Gifford, [facility] - 07/02/2023 8:11 AM EDT Patient [...] Pharm-D Clinical Pharmacist [facility] ([facility]) (Formerly [email or web address]) [phone] 07/02/2023, 8:27 AM * Telephone Encounter - Sharita Ortiz CPhT - 07/02/2023 8:07 AM EDT Patient called in with side effects from Ferrous Sulfate 325 (65 Fe) MG Oral Tablet (Feosol), bloating and constipation. Warm transferred to [facility] for consultation. Thank you, Sharita Ortiz [employer]per [employer] [facility] ([facility]) (Formerly [employer]) 07/02/2023,8:08 AM documented in this encounter Plan of Treatment Upcoming Encounters Date Type Department Care Team (Late st Contact Info) Description 08/02/2023 9:00 AM EDT Office Visit Hematology/Oncology [facility] [address] [facility] [place] [phone] Janna Muñoz CRNP [address] [facility] [place] [address] 09/28/2023 12:00 PM EDT Office Visit Family Practice [facility] [place] [address] [facility] [place] [address] Efraín Zamudio III, MD [address] [facility] [place] [address] Scheduled Procedures Name Priority Associated Diagnoses Date/Ti [...] Documents on File Type Date Recorded Patient Medication Reconciliation Technician Expl anation Advance Directives and Living Will 11/03/2008 ADVANCE DIRECTIVE / LIVING WILL Advance Directives and Living Will 11/03/2008 ADVANCE DIRECTIVE / LIVING WILL Power of Tubing Machine Operator 11/03/2008 POWER OF A TTORNEY Power of Tubing Machine Operator 11/03/2008 POWER OF A TTORNEY Power of Tubing Machine Operator 11/03/2008 POWER OF A TTORNEY Care Teams Campus Security Director Relationship Specialty Start Date End Date Efraín Zamudio III, MD 200 [place] [address] PCP - General Family Medicine 06/24/21 documented as of this encounter
--- OUTSIDE RECORDS SUMMARY | 2023-08-31 21:03 | External Medical Summary | Summary of Care ---
Author Name Unknown Organization [facility] Address [address] [place] [address] Phone [phone] Care Team Providers Care Business Objects Name Role Phone Lizz BUI MD, Efraín León Primary Care Provider [phone] Reason for Visit * Reason Onset Date Comments Medication Problem 07/02/2023 Advice 07/02/2023 Encounter Details Date Type Department Care Team (Late st Contact Info) Description 07/02/2023 Telephone Family Practice [facility] [address] [facility] [place] [address] Efraín Zamudio III, MD 200 [place] [address] Medication Problem; Advice Allergies Active Allergy Reactions [...] at bedtime 45 Tablet 2 04/09/2023 Active TwentyPeopleTouch Verio w/Device KitIndications:Diabe tic polyneuropathy associated with type 2 diabetes mellitus (HCC) Use as directed E11.9 1 Kit 0 04/09/2023 Active TwentyPeopleTouch Verio In Vitro Strip (Glucose Blood)Indications:Di abetic [...] A1c goal of less than 7.5% ([facility]) Inject 1 mg under the skin once [...] though. * Telephone Encounter - Mauricio Gifford [facility] - 07/02/2023 8:11 AM EDT Patient [...] Pharmacist Centralized Clinical Pharmacy Services ([facility]) (Formerly [employer]) [phone] 07/02/2023, 8:27 AM * Telephone Encounter - Sharita Ortiz CPhT - 07/02/2023 8:07 AM EDT Patient called in with side effects from Ferrous Sulfate 325 (65 Fe) MG Oral Tablet (Feosol), bloating and constipation. Warm transferred to [facility] for consultation. Thank you, Sharita Ortiz Smoking Pipe Repairer [facility] Pharmacy Services ([facility]) (Formerly [employer]) 07/02/2023,8:08 AM documented in this encounter Plan of Treatment Upcoming Encounters Date Type Department Care Team (Late st Contact Info) Description 08/02/2023 9:00 AM EDT Office Visit Hematology/Oncology [facility] [place] [address] [place] [address] Janna Muñoz CRNP [address] [place] [address] 09/28/2023 12:00 PM EDT Office Visit Family Practice [facility] [place] [address] [facility] [place] [address] Efraín Zamudio III, MD 200 [facility] [place] [address] Scheduled Procedures Name Priority Associated Diagnoses Date/Ti [...] Documents on File Type Date Recorded Patient Buffer Automatic Expl anation Advance Directives and Living Will 11/03/2008 ADVANCE DIRECTIVE / LIVING WILL Advance Directives and Living Will 11/03/2008 ADVANCE DIRECTIVE / LIVING WILL Power of Optometric Coordinator 11/03/2008 POWER OF A TTORNEY Power of Optometric Coordinator 11/03/2008 POWER OF A TTORNEY Power of Optometric Coordinator 11/03/2008 POWER OF A TTORNEY Care Teams Business Objects Relationship Specialty Start Date End Date Efraín Zamudio III, MD 200 [place] [address] PCP - General Family Medicine 06/24/21 documented as of this encounter
--- OUTSIDE RECORDS SUMMARY | 2023-08-31 21:03 | External Medical Summary | Summary of Care ---
Author Name Unknown Organization [facility] Address [address] [place] [address] Phone [phone] Care Team Providers Care Retail Store Associate Name Role Phone Lizz BUI MD, Didier León Primary Care Provider [phone] Reason for Visit * Reason Onset Date Comments Medication Refill 07/03/2023 Encounter Details Date Type Department Care Team (Late st Contact Info) Description 07/03/2023 Refill Family Practice [facility] 200 [place] [address] Didier Huff III, MD [address] [place] [address] Type 2 diabetes mellitus with hemoglobin A1c goal of less than 7.5% ([facility]) Allergies Active Allergy Reactions Criticality Noted Date [...] at bedtime 45 Tablet 2 04/09/2023 Active UXCamToiZ3D Verio w/Device KitIndications:Diab etic polyneuropathy associated with type 2 diabetes mellitus (HCC) Use as directed E11.9 1 Kit 0 04/09/2023 Active UXCamTouch Verio In Vitro Strip (Glucose Blood)Indications:D iabetic [...] a week. 3 mL 6 07/03/2023 Active Ozempic (1 MG/DOSE) 4 MG/3ML Subcutaneous Solution Pen-injector (Semaglutide (1 MG/DOSE))Indication s:Type 2 diabetes mellitus with hemoglobin A1c goal of less than 7.5% (HCC) Inject 1 mg under the skin once a week. 3 mL 6 05/28/2023 Discontinu ed(Refill) documented as of this encounter [...] Encounter - Didier Huff III, MD - 07/03/2023 1:37 PM EDTSigned Prescriptions: Disp Refills Ozempic (1 MG/DOSE) 4 MG/3ML Subcutaneous *3 mL 6 Sig: Inject 1 mg under the skin once a week.Authorizing Provider: DIDIER HUFF III * Telephone Encounter - Christoph Betts, [employer] - 07/03/2023 1:18 PM EDT Pending Prescriptions: Disp Refills Ozempic (1 MG/DOSE) 4 MG/3ML Subcutaneous *3 mL 6 Sig: Inject 1 mg under the skin once a week. * Telephone Encounter - Gaby Carter OSA - 07/03/2023 12:36 PM EDT Did you pend patient's preferred pharmacy and medication before forwarding?yes Pharmacy: [facility] Pending Prescriptions: Disp Refills Ozempic (1 MG/DOSE) 4 MG/3ML Subcutaneous*3 mL 6 Sig: Inject 1 mg under the skin once a week. Last Visit: 06/28/2023 (in office), 07/15/2019 (telemedicine) Next Visit: 09/28/2023 If no future appointments scheduled, and last appointment is greater than a year ago, please schedule patient for a follow-up appointment Last date the medication was ordered: [id number] Is this request for a controlled substance?No [...] 08/02/2023 9:00 AM EDT Office Visit Hematology/Oncology [facility] [place] [address] [place] [id number] Janna Mu[facility]oz CRNP [facility] [place] [address] 09/28/2023 12:00 PM EDT Office Visit Family Practice [facility] [place] [address] [place] [address] Didier Huff III, MD 200 [facility] [place] [address] Scheduled Procedures Name Priority Associated Diagnoses Date/Ti [...] as of this encounter Visit Diagnoses Diagnosis Type 2 diabetes mellitus with hemoglobin A1c goal of less than 7.5% ([facility]) documented in this encounter Advance Directives Documents on File Type Date Recorded Patient Relay Tester Helper Expl anation Advance Directives and Living Will 11/03/2008 ADVANCE DIRECTIVE / LIVING WILL Advance Directives and Living Will 11/03/2008 ADVANCE DIRECTIVE / LIVING WILL Power of Link Knitting Machine Operator 11/03/2008 POWER OF A TTORNEY Power of Link Knitting Machine Operator 11/03/2008 POWER OF A TTORNEY Power of Link Knitting Machine Operator 11/03/2008 POWER OF A TTORNEY Care Teams Retail Store Associate Relationship Specialty Start Date End Date Didier Huff III, MD 200 [facility] [place] [address] PCP - General Family Medicine 06/24/21 documented as of this encounter
--- OUTSIDE RECORDS SUMMARY | 2023-08-31 21:04 | External Medical Summary | Summary of Care ---
Author Name Unknown Organization [facility] Address [address] [place] [facility] [place] [place] [address] Phone [phone] Care Team Providers Care Cheese Factory Worker Name Role Phone Lizz BUI MD, Efraín León Primary Care Provider [phone] Reason for Visit * Reason Onset Date Comments Medication Refill 06/04/2023 Reroute Encounter Details Date Type Department Care Team (Late st Contact Info) Description 06/04/2023 Refill Family Practice [facility] 200 [place] [address] Efraín Zamudio III, MD 200 [place] [address] Allergies Active Allergy Reactions Criticality Noted Date [...] as of this encounter (statuses as of 06/20/2023) Medications Medication Sig Dispensed Refills Start Date End Date Status Silver sulfADIAZINE 1 % External Cream (Silvadene)Indicatio ns:Wound of left foot,Osteomyelitis of toe (HCC) Apply topically to affected area daily. Apply to foot. 50 g 1 09/13/2022 Active Gauze Pads 4"X4" PadIndications:Wound of left foot,Osteomyelitis [...] PER DAY. 10 Tablet 0 02/13/2023 Active Ketorolac Tromethamine 10 MG Oral Tablet (Toradol) Take 1 Tablet by mouth 4 times a day as needed for Pain, Severe. Do not take for longer than 5 days 20 Tablet 0 03/07/2023 Active oxyCODONE HCl 5 MG Oral Tablet (Oxy IR) 0 03/12/2023 Acti ve LancetsIndications:D iabetic polyneuropathy associated with type 2 diabetes mellitus (HCC) Use as directed 5 times daily 200 Each 04/07/2023 Active traZODone HCl 50 MG Oral Tablet (Desyrel) Take one and half tablets at bedtime 45 Tablet 2 04/09/2023 Active OneTouch Verio w/Device KitIndications:Diabe tic polyneuropathy [...] E11.9 200 Strip 04/09/2023 Active OneTouch UltraSoft LancetsIndications:D iabetic polyneuropathy [...] hours as needed (Headache). 24 Tablet 1 06/04/2023 Active Ibuprofen 600 MG Oral Tablet (Motrin) Take 1 Tablet by mouth every 8 hours as needed (Headache). 24 Tablet 1 05/28/2023 4 Discontinue d(Refill) documented as of this encounter (statuses as of 06/20/2023) Active Problems Problem Noted Date Diagnosed Date [...] as of this encounter (statuses as of 06/20/2023) Resolved Problems Problem Noted Date Diagnosed Date [...] as of this encounter (statuses as of 06/20/2023) Immunizations Name Administration Dates Next Due COVID-19 [...] encounter Miscellaneous Notes * Telephone Encounter - Karrie Brown RPh - 06/04/2023 3:42 PM EDTSigned Prescriptions: Disp Refills Ibuprofen 600 MG Oral Tablet (Motrin) 24 Tab*1 Sig: Take 1 Tablet by mouth every 8 hours as needed (Headache).Authorizing Provider: PAUL CHOI User: KARRIE BROWN * Telephone Encounter - Karrie Brown RPh - 06/04/2023 3:42 PM EDT Rerouted rx to new pharmacy as requested. Thank you, Karrie Brown, PharmD Clinical Pharmacist Centralized Clinical Pharmacy Services ([facility]) (formerly Telepharmacy) [phone] 06/04/2023, 3:42 PM * Telephone Encounter - Neal Tamayo, heating operators engineer - 06/04/2023 3:21 PM EDT Pt's transportation will drop pt off at [facility] by 10AM tomorrow. Please reroute Rx to [facility] [address] [address]. Pending Prescriptions: Disp Refills Ibuprofen 600 MG Oral Tablet (Motrin) 24 Tab*1 Sig: Take 1 Tablet by mouth every 8 hours as needed (Headache). Last Visit: 03/14/2023 (in office), 07/15/2019 (telemedicine) 06/18/2023 If no future appointments scheduled, and last appointment is greater than a year ago, please schedule patient for a follow-up appointment Last date the medication was ordered: 05/28/2023 Patient Phone Numbers Labs: Lab Results Component [...] Team (Late st Contact Info) Description 06/28/2023 11:40 AM EDT Office Visit Family Practice [facility] [place] [address] [place] [address] Efraín Zamudio III, MD 200 [facility] [place] [address] Scheduled Procedures Name Priority Associated Diagnoses Date/Ti [...] Documents on File Type Date Recorded Patient Measurement Specialist Expl anation Advance Directives and Living Will 11/03/2008 ADVANCE DIRECTIVE / LIVING WILL Advance Directives and Living Will 11/03/2008 ADVANCE DIRECTIVE / LIVING WILL Power of Dental Billing Specialist 11/03/2008 POWER OF A TTORNEY Power of Dental Billing Specialist 11/03/2008 POWER OF A TTORNEY Power of Dental Billing Specialist 11/03/2008 POWER OF A TTORNEY Care Teams Cheese Factory Worker Relationship Specialty Start Date End Date Efraín Zamudio III, MD [address] [place] [address] PCP - General Family Medicine 06/24/21 documented as of this encounter
--- OUTSIDE RECORDS SUMMARY | 2023-08-31 21:04 | External Medical Summary | Summary of Care ---
Author Name Unknown Organization [facility] Address [address] [place] [facility] [place] [address] Phone [phone] Care Team Providers Care Clinical Nursing Coordinator Name Role Phone Lizz BUI MD, Efraín León Primary Care Provider [phone] Reason for Visit * Reason Onset Date Comments Medication Refill 06/04/2023 Reroute Encounter Details Date Type Department Care Team (Late st Contact Info) Description 06/04/2023 Refill Family Practice [facility] 200 [facility] [place] [address] Efraín Zamudio III, MD 200 [place] [address] Allergies Active Allergy Reactions Criticality Noted Date [...] Encounter - Ronda Morales PHARM Tech - 06/20/2023 9:51 AM EDT Pt calling to get Ibuprofen transferred. Pt disconnected the call, will call back. Thank you, Ronda Morales, Ct Manager Centralized Clinical Pharmacy Services ([facility]PS) (Formerly Telepharmacy) 06/20/2023,9:51 AM * Telephone Encounter - Karrie Brown [facility] - 06/04/2023 3:42 PM EDTSigned Prescriptions: Disp Refills Ibuprofen 600 MG Oral Tablet (Motrin) 24 Tab*1 Sig: Take 1 Tablet by mouth every 8 hours as needed (Headache).Authorizing Provider: PAUL CHOI AOrdering User: KARRIE BROWN * Telephone Encounter - Karrie Brown RPh - 06/04/2023 3:42 PM EDT Rerouted rx to new pharmacy as requested. Thank you, Karrie Brown, PharmD Clinical Pharmacist Centralized Clinical Pharmacy Services ([facility]PS) (formerly Telepharmacy) [phone] 06/04/2023, 3:42 PM * Telephone Encounter - Neal Tamayo karate instructor - 06/04/2023 3:21 PM EDT Pt's transportation will drop pt off at [facility] by 10AM tomorrow. Please reroute Rx to [facility] [address] [address] Pending Prescriptions: Disp Refills Ibuprofen [...] 11:40 AM EDT [facility] [place] [address] [facility] [place] [address] Efraín Zamudio III, MD 200 [facility] [place] [address] Scheduled Procedures Name Priority Associated Diagnoses Date/Ti [...] Documents on File Type Date Recorded Patient Engineer Of System Development Expl anation Advance Directives and Living Will 11/03/2008 ADVANCE DIRECTIVE / LIVING WILL Advance Directives and Living Will 11/03/2008 ADVANCE DIRECTIVE / LIVING WILL Power of Rubber Block Layer 11/03/2008 POWER OF A TTORNEY Power of Rubber Block Layer 11/03/2008 POWER OF A TTORNEY Power of Rubber Block Layer 11/03/2008 POWER OF A TTORNEY Care Teams Clinical Nursing Coordinator Relationship Specialty Start Date End Date Efraín Zamudio III, MD [address] [place] [address] PCP - General Family Medicine 06/24/21 documented as of this encounter
--- OUTSIDE RECORDS SUMMARY | 2023-08-31 21:04 | External Medical Summary | Summary of Care ---
Author Name Unknown Organization [facility] Address [address] [place] [address] Phone [phone] Care Team Providers Care Research Group Director Name Role Phone Lizz BUI MD, Efraín León Primary Care Provider [phone] Reason for Visit * Reason Onset Date Comments Appointment 03/14/2023 Reschedule US of abdomen. Encounter Details Date Type Department Care Team (Late st Contact Info) Description 03/14/2023 Telephone Family Practice [facility] 200 [place] [address] Efraín Zamudio III, MD 200 [place] [address] Appointment (Reschedule US of abdomen.) Allergies Active Allergy Reactions Criticality Noted Date [...] as of this encounter (statuses as of 06/13/2023) Medications Medication Sig Dispensed Refills Start Date [...] Tablet (Oxy IR) 0 03/12/2023 Acti ve documented as of this encounter (statuses as of 06/13/2023) Active Problems Problem Noted Date Diagnosed Date [...] as of this encounter (statuses as of 06/13/2023) Resolved Problems Problem Noted Date Diagnosed Date [...] as of this encounter (statuses as of 06/13/2023) Immunizations Name Administration Dates Next Due COVID-19 [...] encounter Miscellaneous Notes * Telephone Encounter - Caleb Tran OSA - 03/14/2023 10:26 AM EST Reason for patient's call: Patient is calling to reschedule his US Caller was transferred to [facility] at the nurse line. documented in this encounter Plan of Treatment Upcoming Encounters Date Type Department Care Team (Late st Contact Info) Description 06/28/2023 11:40 AM EDT [facility] [place] [address] [facility] [place] [address] Efraín Zamudio III, MD [address] [facility] [place] [address] Scheduled Procedures Name Priority Associated Diagnoses Date/Ti [...] Documents on File Type Date Recorded Patient Learning Facilitator Expl anation Advance Directives and Living Will 11/03/2008 ADVANCE DIRECTIVE / LIVING WILL Advance Directives and Living Will 11/03/2008 ADVANCE DIRECTIVE / LIVING WILL Power of Projector Booth Operator 11/03/2008 POWER OF A TTORNEY Power of Projector Booth Operator 11/03/2008 POWER OF A TTORNEY Power of Projector Booth Operator 11/03/2008 POWER OF A TTORNEY Care Teams Research Group Director Relationship Specialty Start Date End Date Efraín Zamudio III, MD [address] [place] [address], [place] [address] PCP - General Family Medicine 06/24/21 documented as of this encounter
--- OUTSIDE RECORDS SUMMARY | 2023-08-31 21:04 | External Medical Summary | Summary of Care ---
Author Name Unknown Organization [facility] Address [address] [facility] [address] Phone [phone] Care Team Providers Care Veterinary Virus Serum Inspector Name Role Phone Lizz BUI MD, Efraín León Primary Care Provider [phone] Reason for Visit * Reason Onset Date Comments Medication Refill 06/04/2023 Reroute Encounter Details Date Type Department Care Team (Late st Contact Info) Description 06/04/2023 Refill Family Practice [facility] 200 [facility] [place] [address] Efraín Zamudio III, MD 200 [facility] [address] Allergies Active Allergy Reactions Criticality Noted Date [...] to foot. 50 g 1 3 Active Gauze Pads 4"X4" PadIndications:Wou nd of left [...] PER DAY. 10 Tablet 0 3 Active Ketorolac Tromethamine 10 MG Oral Tablet (Toradol) Take 1 Tablet by mouth 4 times a day as needed for Pain, Severe. Do not take for longer than 5 days 20 Tablet 0 3 Active oxyCODONE HCl 5 MG Oral Tablet (Oxy IR) 0 3 Active LancetsIndications :Diabetic polyneuropathy associated with type 2 diabetes mellitus (HCC) Use as directed 5 times daily 200 Each 11 4 Active traZODone HCl 50 MG Oral Tablet (Desyrel) Take one and half tablets at bedtime 45 Tablet 2 4 Active OneTouch Verio w/Device KitIndications:Alondra betic polyneuropathy associated with type 2 diabetes mellitus (HCC) Use as directed E11.9 1 Kit 0 4 Active OneTouch Verio In Vitro Strip (Glucose Blood)Indications: Diabetic polyneuropathy associated with type 2 diabetes mellitus (HCC) Test five times daily for use with multiple daily insulin injections-be fore all meals, snacks, exercise, and one to two times during the night. Dx: E11.9 200 Strip 11 4 Active OneTouch UltraSoft LancetsIndications :Diabetic polyneuropathy associated with type 2 diabetes mellitus (HCC) Use as directed 5 times daily 200 Each 11 4 Active Diclofenac Sodium 1 % External Gel (Voltaren) Apply topically to affected area 4 times a day. 2 grams/ dose Apply to knee as needed for pain 100 g 1 4 Active Accu-Chek Guide w/Device Kit Use as directed. 1 Kit 0 4 Active Accu-Chek Guide In Vitro Strip (Glucose Blood) Test five times daily for use with multiple daily insulin injections-be fore all meals, snacks, exercise, and one to two times during the night. Dx: E11.9 100 Strip 3 4 Active Esomeprazole Magnesium 40 MG Oral Capsule Delayed Release (NexIUM) Take 1 Capsule by mouth in the morning. 1 hour before the first meal of the day. 30 Capsule 11 4 Active LORazepam 0.5 MG Oral Tablet (Ativan) Take 1 Tablet by mouth every 8 hours as needed for Anxiety. 21 Tablet 0 4 Active Ozempic (1 MG/DOSE) 4 MG/3ML Subcutaneous Solution Pen-injector (Semaglutide (1 MG/DOSE))Indicatio ns:Type 2 diabetes mellitus with hemoglobin A1c goal of less than 7.5% ([facility]) Inject 1 mg under the skin once a week. 3 mL 6 4 Active Gabapentin 800 MG Oral Tablet (Neurontin) Take 1 Tablet by mouth in the morning and 1 Tablet at noon and 1 Tablet before bedtime. 90 Tablet 5 4 Active Gabapentin 800 MG Oral Tablet (Neurontin) Take 1 Tablet by mouth in the morning and 1 Tablet at noon and 1 Tablet before bedtime. 90 Tablet 4 4 Active Zolpidem Tartrate 10 MG Oral Tablet (Ambien) Take 1 Tablet by mouth at bedtime as needed for Sleep. 30 Tablet 0 4 Active Ibuprofen 600 MG Oral Tablet (Motrin) Take 1 Tablet by mouth every 8 hours as needed (Headache). 24 Tablet 0 4 Active Ibuprofen 600 MG Oral Tablet (Motrin) Take 1 Tablet by mouth every 8 hours as needed (Headache). 24 Tablet 1 4 06/04/19 24 Discontinued(Ref ill) Ibuprofen 600 MG Oral Tablet (Motrin) Take 1 Tablet by mouth every 8 hours as needed (Headache). 24 Tablet 1 4 06/20/19 24 Discontinued documented as of this encounter [...] Miscellaneous Notes * Telephone Encounter - Airam Hahn OSA - 06/20/2023 5:03 PM EDT Patient has been notified of the message. Patient has no further questions. Pt. Will pickling machine operator medication on Sunday. * Telephone Encounter - Elizabeth Del Toro [facility] - 06/20/2023 10:28 AM EDT Signed Prescriptions: Disp Refills Ibuprofen 600 MG Oral Tablet (Motrin) 24 Tab*0 Sig: Take 1 Tablet by mouth every 8 hours as needed (Headache).Authorizing Provider: PAUL CHOI AOrmarcelinaing User: ELIZABETH DEL TORO * Addendum Note - Harsh Foley polishing wheel setter - 06/20/2023 10:19 AM EDTAddended by: HARSH FOLEY on: 06/20/2023 10:19 AM Modules accepted: Orders * Telephone Encounter - Harsh Foley polishing wheel setter - 06/20/2023 9:51 AM EDT Please reroute Rx to [facility] [place]. Pending Prescriptions: Disp Refills Ibuprofen 600 MG Oral Tablet (Motrin) 24 Tab*0 Sig: Take 1 Tablet by mouth every 8 hours as needed (Headache). Last Visit: 03/14/2023 (in office), 07/15/2019 (telemedicine) 06/28/2023 If no future appointments scheduled, and last appointment is greater than a year ago, please schedule patient for a follow-up appointment Last date the medication was ordered: 06/04/23 Patient Phone Numbers Labs: Lab Results Component [...] 12/04/2019 01:51 PM * Telephone Encounter - Karrie Brown RP - 06/04/2023 3:42 PM EDTSigned Prescriptions: Disp Refills Ibuprofen 600 MG Oral Tablet (Motrin) 24 Tab*1 Sig: Take 1 Tablet by mouth every 8 hours as needed (Headache).Authorizing Provider: PAUL CHOI AOrderlaureano User: KARRIE BROWN * Telephone Encounter - Karrie Brown RPh - 06/04/2023 3:42 PM EDT Rerouted rx to new pharmacy as requested. Thank you, Karrie Brown, LorenzaD Clinical Pharmacist Centralized Clinical Pharmacy Services (CCPS) (formerly Telepharmacy) [phone] 06/04/2023, 3:42 PM * Telephone Encounter - Neal Tamayo polishing wheel setter - 06/04/2023 3:21 PM EDT Pt's transportation will drop pt [facility] at [facility] by 10AM tomorrow. Please reroute Rx to [facility] [address] [place] Pending Prescriptions: Disp Refills Ibuprofen 600 MG [...] EDT Office Visit Family Practice [place] [address] [place] [address] Lizz III, Efraín León MD [address] [place] [address] Scheduled Procedures Name Priority Associated Diagnoses Date/Ti [...] Documents on File Type Date Recorded Patient Bill Of Lading Clerk Expl anation Advance Directives and Living Will 11/03/2008 ADVANCE DIRECTIVE / LIVING WILL Advance Directives and Living Will 11/03/2008 ADVANCE DIRECTIVE / LIVING WILL Power of Education Managers 11/03/2008 POWER OF A TTORNEY Power of Education Managers 11/03/2008 POWER OF A TTORNEY Power of Education Managers 11/03/2008 POWER OF A TTORNEY Care Teams Veterinary Virus Serum Inspector Relationship Specialty Start Date End Date Efraín Zamudio III, MD [address] [place] [address] PCP - General Family Medicine 06/24/21 documented as of this encounter
--- OUTSIDE RECORDS SUMMARY | 2023-08-31 21:04 | External Medical Summary | Summary of Care ---
Author Name Unknown Organization [facility] Address [address] [place] [facility] [place] [address] Phone [phone] Care Team Providers Care Gate Keeper Name Role Phone Lizz BUI MD, Efraín León Primary Care Provider [phone] Reason for Visit * Reason Onset Date Comments Medication Refill 06/04/2023 Reroute Encounter Details Date Type Department Care Team (Late st Contact Info) Description 06/04/2023 Refill [facility] 200 [facility] [place] [address] Efraín Zamudio III, MD 200 [place] [address] Allergies Active Allergy Reactions Criticality Noted Date [...] encounter Miscellaneous Notes * Addendum Note - Harsh Morales PHARM Tech - 06/20/2023 10:19 AM EDTAddended by: HARSH MORALES on: 06/20/2023 10:19 AM Modules accepted: Orders * Telephone Encounter - Harsh Morales PHARM Tech - 06/20/2023 9:51 AM EDT Please reroute Rx to [facility]- [place]. Pending Prescriptions: Disp Refills Ibuprofen 600 [...] PM * Telephone Encounter - Karrie Brown RPh [...] Centralized Clinical Pharmacy Services (CCPS) (formerly Telepharmacy) [phone] 06/04/2023, 3:42 PM * Telephone Encounter - Neal Tamayo PHARM Tech - 06/04/2023 3:21 PM EDT Pt's transportation will drop pt off at [facility] by 10AM tomorrow. Please reroute Rx to [facility] [address] [address]. Pending Prescriptions: Disp Refills Ibuprofen [...] EDT Office Visit Family Practice [place] 200 [facility] [place] [address] Efraín Zamudio III, MD 200 [facility] [place] [address] Scheduled Procedures Name Priority Associated Diagnoses Date/Ti [...] Documents on File Type Date Recorded Patient Internist Medical Doctor Md Expl anation Advance Directives and Living Will 11/03/2008 ADVANCE DIRECTIVE / LIVING WILL Advance Directives and Living Will 11/03/2008 ADVANCE DIRECTIVE / LIVING WILL Power of Securities Vault Supervisor 11/03/2008 POWER OF A TTORNEY Power of Securities Vault Supervisor 11/03/2008 POWER OF A TTORNEY Power of Securities Vault Supervisor 11/03/2008 POWER OF A TTORNEY Care Teams Gate Keeper Relationship Specialty Start Date End Date Lizz BUI, Efraín León MD [address] [facility] [address] PCP - General Family Medicine 06/24/21 documented as of this encounter
--- OUTSIDE RECORDS SUMMARY | 2023-08-31 21:04 | External Medical Summary | Summary of Care ---
Author Name Unknown Organization [facility] Address [address] [place] [address] Phone [phone] Care Team Providers Care Director Of Partner Marketing Name Role Phone Lizz BUI MD, Efraín León Primary Care Provider [phone] Reason for Visit * Reason Onset Date Comments Referral 05/28/2023 Will agree with sx Encounter Details Date Type Department Care Team (Late st Contact Info) Description 05/28/2023 Telephone Family Practice [facility] 200 [facility] [place] [address] Efraín Zamudio III, MD 200 [place] [address] Referral (Will agree with sx) Allergies Active Allergy Reactions Criticality Noted Date [...] as of this encounter (statuses as of 06/07/2023) Medications Medication Sig Dispensed Refills Start Date [...] 3 mL 6 10/25/2022 4 Discontinue d(Refill) Gabapentin 800 MG Oral Tablet (Neurontin) Take 1 Tablet by mouth in the morning and 1 Tablet at noon and 1 Tablet before bedtime. 90 Tablet 5 04/30/2023 4 Discontinue d(Refill) Zolpidem Tartrate 10 MG Oral Tablet (Ambien) Take 1 Tablet by mouth at bedtime as needed for Sleep. 30 Tablet 0 05/07/2023 4 Discontinue d(Refill) Ibuprofen 600 MG Oral Tablet (Motrin) Take 1 Tablet by mouth every 8 hours as needed (Headache). 24 Tablet 1 05/22/2023 4 Discontinue d(Refill) documented as of this encounter (statuses as of 06/07/2023) Active Problems Problem Noted Date Diagnosed Date [...] as of this encounter (statuses as of 06/07/2023) Resolved Problems Problem Noted Date Diagnosed Date [...] as of this encounter (statuses as of 06/07/2023) Immunizations Name Administration Dates Next Due COVID-19 [...] encounter Miscellaneous Notes * Addendum Note - Mendy Dawn LPN - 06/07/2023 11:32 AM EDTAddended by: MENDY DAWN on: 06/07/2023 11:32 AM Modules accepted: Orders * Telephone Encounter - Ewa Thomas OSA - 06/02/2023 9:55 AM EST Pt is agreeable to having surgery, please call pt with information concerning an appointment for the surgeon. [phone] * Telephone Encounter - Caitie Schafer PA-C - 05/31/2023 10:24 PM EST Would recommend a spinal specialist to consider possible back surgery. Is he agreeable? * Telephone Encounter - Rosaline Ojeda LPN - 05/30/2023 12:42 PM EST Had MRI of spine 05/10 * Telephone Encounter - Reyna Lentz OSA - 05/30/2023 10:51 AM EST Patient calling in to check on the status of previous message. Patient Called within 48 hour timeframe. Reminded patient of 48 hour turn-around time. General surgery for back surgery. * Telephone Encounter - Caitie Schafer PA-C - 05/29/2023 7:35 PM EST Are we being asked for a referral to general surgery? For? * Telephone Encounter - Renetta Courtney OSA - 05/29/2023 9:42 AM EST Patient has been notified of the message. Patient states he cannot wait until his appointment on 06/18/23. Please advise: [phone] * Telephone Encounter - Agata Bolden LPN - 05/28/2023 10:33 AM EST Can discuss at appt with provider when he comes in for prior message that was sent to scheduling. * Telephone Encounter - Maris Hyatt OSA - 05/28/2023 8:56 AM EST Has the patient been seen for [...] referral need to be placed into the [employer] system? Name of preferred specialist: n/a Type of specialist: General Surge Location of specialist: [facility] Phone #: n/a Specialist's Fax #: n/a Reason for visit: Lower Back Surg Date of visit: n/a documented in this encounter Plan of Treatment Upcoming Encounters Date Type Department Care Team (Late st Contact Info) Description 06/18/2023 12:20 PM EDT Office Visit Family Practice [facility] [place] 200 [facility] [place] [address] Efraín Zamudio III, MD 200 [facility] [place] [address] Scheduled Procedures Name Priority Associated Diagnoses Date/Ti [...] Documents on File Type Date Recorded Patient Finishing Supervisor Expl anation Advance Directives and Living Will 11/03/2008 ADVANCE DIRECTIVE / LIVING WILL Advance Directives and Living Will 11/03/2008 ADVANCE DIRECTIVE / LIVING WILL Power of Negative Retoucher 11/03/2008 POWER OF A TTORNEY Power of Negative Retoucher 11/03/2008 POWER OF A TTORNEY Power of Negative Retoucher 11/03/2008 POWER OF A TTORNEY Care Teams Director Of Partner Marketing Relationship Specialty Start Date End Date Efraín Zamudio III, MD [address] [place] [address] PCP - General Family Medicine 06/24/21 documented as of this encounter
--- OUTSIDE RECORDS SUMMARY | 2023-08-31 21:04 | External Medical Summary | Summary of Care ---
Author Name Unknown Organization [facility] Address [address] [place] [address] Phone [phone] Care Team Providers Care Corrosion Control Engineer Name Role Phone Lizz BUI MD, Didier León Primary Care Provider [phone] Reason for Referral * Evaluate & Treat - Unlimited Visits (Within 10 days (routine)) - Pending Review Specialty Diagnoses / Procedures Referred By Toshia marino Referred To Contact Neuro/Ortho Surgery - Spine. / Neurological Surgery Diagnoses Spinal stenosis of lumbar region, unspecified whether neurogenic claudication present Didier Huff III, MD [address] [place] [address] [place] [address] Referral ID Status Reason Start Date Expiration Date Visits Requested Visits Authorized [id number] Pending Review Specialty Services Required 06/07/2023 999 999 Question Answer Referral Priority Within 10 days (routine) Where should this appointment be scheduled? [facility] region: Back - Thoracic/Lumbar Do you have any recent complete loss of bladder or bowel function? No Reason for Visit * Reason Onset Date Comments Referral 05/28/2023 Will agree with sx Encounter Details Date Type Department Care Team (Late st Contact Info) Description 05/28/2023 Telephone Family Practice [place] [facility] [place] [address] Didier Huff III, MD 200 [facility] [place] [address] Referral (Will agree with sx) Allergies Active [...] as of this encounter (statuses as of 06/19/2023) Medications Medication Sig Dispensed Refills Start Date [...] as of this encounter (statuses as of 06/19/2023) Active Problems Problem Noted Date Diagnosed Date [...] as of this encounter (statuses as of 06/19/2023) Resolved Problems Problem Noted Date Diagnosed Date Resolved Date Deep vein thrombosis (DVT) of upper extremity 08/3010/11/2022 Body mass index (BMI) of 40. 0 [...] as of this encounter (statuses as of 06/19/2023) Immunizations Name Administration Dates Next Due COVID-19 [...] Miscellaneous Notes * Telephone Encounter - Airam Patterson OSA - 06/13/2023 12:26 PM EDT Pt is calling to see if you the referral was sent to [facility]. Please reach out to the pt if it was * Addendum Note - Didier Huff III, MD - 06/07/2023 12:04 PM EDTAddended by: DIDIER HUFF on: 06/07/2023 12:04 PM Modules accepted: Orders * Addendum Note - Mendy Dawn LPN - 06/07/2023 11:32 AM EDTAddended by: MENDY DAWN on: 06/07/2023 11:32 AM Modules accepted: Orders * Telephone Encounter - Ewa Thomas OSA - 06/02/2023 9:55 AM EST Pt is agreeable to having surgery, please call pt with information concerning an appointment for the surgeon. [phone] * Telephone Encounter - Caitie Schafer PA-C [...] until his appointment on 06/18/23. Please advise: [phone] * Telephone Encounter - Agata Bolden LPN [...] Name: Dann Carcamo Patient Primary care provider: Didier Huff III, MD Does this need to be an insurance referral (Y/N)?: yes If Yes, does the insurance referral need to be placed into the [employer] system? Name of preferred specialist: n/a Type of specialist: General Surge Location of specialist: [facility] Phone #: n/a Specialist's Fax #: n/a Reason for visit: Lower Back Surg Date of visit: n/a documented in this encounter Plan of Treatment Upcoming Encounters Date Type Department Care Team (Late st Contact Info) Description 06/28/2023 11:40 AM EDT Office Visit Family Practice [place] 200 [facility] [place] [address] Didier Huff III, MD 200 [facility] [place] [address] Scheduled Procedures Name Priority Associated Diagnoses Date/Ti me COLONOSCOPY FLEXIBLE PROXIMAL DIAGNOSTIC Recall History of colon polyps Scheduled Referrals Name Type Priority Associated Diagnoses Orde r Schedule SPINE SURGERY REFERRAL OP Referral Within 10 days (routine) Spinal stenosis of lumbar region, unspecified whether neurogenic claudication present Ordered: 06/07/2023 Health Maintenance Due Date Last Done Comments [...] Visit Diagnoses Diagnosis Spinal stenosis of lumbar region, unspecified whether neurogenic claudication present- Primary documented in this encounter Advance Directives Documents on File Type Date Recorded Patient Property Claims Adjuster Expl anation Advance Directives and Living Will 11/03/2008 ADVANCE DIRECTIVE / LIVING WILL Advance Directives and Living Will 11/03/2008 ADVANCE DIRECTIVE / LIVING WILL Power of Teleservices Representative 11/03/2008 POWER OF A TTORNEY Power of Teleservices Representative 11/03/2008 POWER OF A TTORNEY Power of Teleservices Representative 11/03/2008 POWER OF A TTORNEY Care Teams Corrosion Control Engineer Relationship Specialty Start Date End Date Didier Huff III, MD 200 [facility] [place] [address] PCP - General Family Medicine 06/24/21 documented as of this encounter
--- OUTSIDE RECORDS SUMMARY | 2023-08-31 21:04 | External Medical Summary | Summary of Care ---
Author Name Unknown Organization [facility] Address [address] [facility] [place] [address] Phone [phone] Care Team Providers Care Flatwork Finisher Hand Name Role Phone Lizz BUI MD, Efraín León Primary Care Provider [phone] Reason for Visit * Reason Onset Date Comments Medication Refill 06/04/2023 Reroute Encounter Details Date Type Department Care Team (Late st Contact Info) Description 06/04/[address] [facility] 200 [facility] [place] [address] Efraín Zamudio III, MD 200 [place] [address] Allergies Active Allergy Reactions Criticality Noted Date [...] as of this encounter (statuses as of 06/27/2023) Medications Medication Sig Dispensed Refills Start Date [...] A1c goal of less than 7.5% ([facility]) Inject 1 mg under the skin [...] as of this encounter (statuses as of 06/27/2023) Active Problems Problem Noted Date Diagnosed Date [...] as of this encounter (statuses as of 06/27/2023) Resolved Problems Problem Noted Date Diagnosed Date [...] as of this encounter (statuses as of 06/27/2023) Immunizations Name Administration Dates Next Due COVID-19 [...] Patient has no further questions. Pt. Will oyster picker medication on Sunday. * Telephone Encounter - Elizabeth Del Toro [facility] - 06/20/2023 10:28 AM EDT Signed Prescriptions: Disp Refills Ibuprofen 600 MG Oral Tablet (Motrin) 24 Tab*0 Sig: Take 1 Tablet by mouth every 8 hours as needed (Headache).Authorizing Provider: PAUL CHOI AOrmarcelinaing User: ELIZABETH DEL TORO * Addendum Note - Harsh Foley environmental emergencies planner - 06/20/2023 10:19 AM EDTAddended by: HARSH FOLEY on: 06/20/2023 10:19 AM Modules accepted: Orders * Telephone Encounter - Harsh Foley environmental emergencies planner - 06/20/2023 9:51 AM EDT Please reroute Rx to [facility] [place]. Pending Prescriptions: Disp Refills [...] Centralized Clinical Pharmacy Services (CCPS) (formerly Telepharmacy) [phone] 06/04/2023, 3:42 PM * Telephone Encounter - Neal Tamayo environmental emergencies planner - 06/04/2023 3:21 PM EDT Pt's transportation will drop pt off at [facility] by 10AM tomorrow. Please reroute Rx to [facility] [address] [place] Pending Prescriptions: Disp Refills [...] EDT Office Visit Family Practice [place] [address] [place] [address] Lizz III, Efraín León MD [address] [place] [address] Scheduled Procedures Name Priority Associated Diagnoses Date/Ti [...] Documents on File Type Date Recorded Patient Charging Machine Operator Expl anation Advance Directives and Living Will 11/03/2008 ADVANCE DIRECTIVE / LIVING WILL Advance Directives and Living Will 11/03/2008 ADVANCE DIRECTIVE / LIVING WILL Power of Rug Backing Stenciler 11/03/2008 POWER OF A TTORNEY Power of Rug Backing Stenciler 11/03/2008 POWER OF A TTORNEY Power of Rug Backing Stenciler 11/03/2008 POWER OF A TTORNEY Care Teams Flatwork Finisher Hand Relationship Specialty Start Date End Date Efraín Zamudio III, MD [address] [place] [address] PCP - General Family Medicine 06/24/21 documented as of this encounter
--- OUTSIDE RECORDS SUMMARY | 2023-08-31 21:04 | External Medical Summary | Summary of Care ---
Author Name Unknown Organization [facility] Address [address] [place] [address] Phone [phone] Care Team Providers Care Camp Assistant Name Role Phone Lizz BUI MD, Didier León Primary Care Provider [phone] Reason for Referral * Evaluate & Treat - Unlimited Visits (Within 10 days (routine)) - Pending Review Specialty Diagnoses / Procedures Referred By Toshia marino Referred To Contact Neuro/Ortho Surgery - Spine. / Neurological Surgery Diagnoses Spinal stenosis of lumbar region, unspecified whether neurogenic claudication present Didier Huff III, MD [address] [place] [address] [place] [address] Referral ID Status Reason Start Date Expiration Date Visits Requested Visits Authorized [id number] Pending Review Specialty Services Required 06/07/2023 999 [...] Telephone Family Practice [place] 200 [facility] [place] [address] Didier Huff III, MD 200 [facility] [place] [address] Referral (Will agree with sx) Allergies Active [...] if you the referral was sent to [facility] [place]. Please reach out to the pt [...] information concerning an appointment for the surgeon. [phone] * Telephone Encounter - Caitie Schafer PA-C [...] until his appointment on 06/18/23. Please advise: [phone] * Telephone Encounter - Agata Bolden LPN [...] referral need to be placed into the [employer] system? Name of preferred specialist: n/a Type of specialist: General Surge Location of specialist: [facility] Phone #: n/a Specialist's Fax #: n/a Reason for visit: Lower Back Surg Date of visit: n/a documented in this encounter Plan of Treatment Upcoming Encounters Date Type Department Care Team (Late st Contact Info) Description 06/18/2023 12:20 PM EDT Office Visit Family Practice [place] [address] [facility] [place] [address] Didier Huff III, MD 200 [facility] [place] [address] Scheduled Procedures Name Priority Associated Diagnoses Date/Ti [...] Documents on File Type Date Recorded Patient Push Button Switch Assembler Expl anation Advance Directives and Living Will 11/03/2008 ADVANCE DIRECTIVE / LIVING WILL Advance Directives and Living Will 11/03/2008 ADVANCE DIRECTIVE / LIVING WILL Power of Yard Hand 11/03/2008 POWER OF A TTORNEY Power of Yard Hand 11/03/2008 POWER OF A TTORNEY Power of Yard Hand 11/03/2008 POWER OF A TTORNEY Care Teams Camp Assistant Relationship Specialty Start Date End Date Didier Huff III, MD 200 [facility] [place] [address] PCP - General Family Medicine 06/24/21 documented as of this encounter
--- OUTSIDE RECORDS SUMMARY | 2023-08-31 21:04 | External Medical Summary | Summary of Care ---
Author Name Unknown Organization [facility] Address [address] [place] [address] Phone [phone] Care Team Providers Care Lay Out Worker Name Role Phone Lizz BUI MD, Efraín León Primary Care Provider [phone] Reason for Visit * Reason Onset Date Comments FYI 06/07/2023 Referral schedul ing Encounter Details Date Type Department Care Team (Late st Contact Info) Description 06/07/2023 Telephone [facility] [address] [place] [address] Aminata Merida RN (Referral scheduling) Allergies Active Allergy Reactions Criticality Noted Date [...] at bedtime 45 Tablet 2 04/09/2023 Active Caribe Spectrum HoldingsTouch Verio w/Device KitIndications:Diabet ic polyneuropathy associated with [...] needed (Headache). 24 Tablet 1 06/04/2023 Active documented as of this encounter (statuses [...] encounter Miscellaneous Notes * Telephone Encounter - Aminata Merida RN - 06/07/2023 12:01 PM EDT Called patient to schedule from referral, patient wants to go to [facility] due to travel purpose. Referral deferred. documented in this encounter Plan of Treatment Upcoming Encounters Date Type Department Care Team (Late st Contact Info) Description 06/18/2023 12:20 PM EDT Office Visit Family Practice [place] [address] [place] [address] Efraín Zamudio III, MD [address] [place] [address] Scheduled Procedures Name Priority Associated Diagnoses Date/Ti [...] Documents on File Type Date Recorded Patient Cap Sewer Expl anation Advance Directives and Living Will 11/03/2008 ADVANCE DIRECTIVE / LIVING WILL Advance Directives and Living Will 11/03/2008 ADVANCE DIRECTIVE / LIVING WILL Power of Head Operator 11/03/2008 POWER OF A TTORNEY Power of Head Operator 11/03/2008 POWER OF A TTORNEY Power of Head Operator 11/03/2008 POWER OF A TTORNEY Care Teams Lay Out Worker Relationship Specialty Start Date End Date Lizz BUI, Efraín León MD 200 [place] [address] PCP - General Family Medicine 06/24/21 documented as of this encounter
--- OUTSIDE RECORDS SUMMARY | 2023-08-31 21:04 | External Medical Summary | Summary of Care ---
Author Name Unknown Organization [facility] Address [address] [place] [address] Phone [phone] Care Team Providers Care Bow Maker Gift Wrapping Name Role Phone Lizz BUI MD, Didier León Primary Care Provider [phone] Reason for Referral * Evaluate & Treat - Unlimited Visits (Within 10 days (routine)) - Pending Review Specialty Diagnoses / Procedures Referred By Toshia marino Referred To Contact Neuro/Ortho Surgery - Spine. / Neurological Surgery Diagnoses Spinal stenosis of lumbar region, unspecified whether neurogenic claudication present Didier Huff III, MD [address] [place] [address] [place] [address] Referral ID Status Reason Start Date Expiration Date Visits Requested Visits Authorized [id number] Pending Review Specialty Services Required 06/07/2023 999 [...] Telephone Family Practice [place] 200 [facility] [place] [address] Didier Huff III, MD 200 [facility] [place] [address] Referral (Will agree with sx) Allergies Active [...] information concerning an appointment for the surgeon. [phone] * Telephone Encounter - Caitie Schafer PA-C [...] until his appointment on 06/18/23. Please advise: [phone] * Telephone Encounter - Agata Bolden LPN [...] referral need to be placed into the [employer] system? Name of preferred specialist: n/a Type [...] [place] [address] [place] [address] Didier Huff III, MD [address] [place] [address] [address] Scheduled Procedures Name Priority Associated Diagnoses Date/Ti [...] Documents on File Type Date Recorded Patient Ruby On Rails Web Developer Expl anation Advance Directives and Living Will 11/03/2008 ADVANCE DIRECTIVE / LIVING WILL Advance Directives and Living Will 11/03/2008 ADVANCE DIRECTIVE / LIVING WILL Power of Marble Mason 11/03/2008 POWER OF A TTORNEY Power of Marble Mason 11/03/2008 POWER OF A TTORNEY Power of Marble Mason 11/03/2008 POWER OF A TTORNEY Care Teams Bow Maker Gift Wrapping Relationship Specialty Start Date End Date Didier Huff III, MD 200 [place] [address] PCP - General Family Medicine 06/24/21 documented as of this encounter
--- OUTSIDE RECORDS SUMMARY | 2023-08-31 21:04 | External Medical Summary | Summary of Care ---
Author Name Unknown Organization [facility] Address [address] [place] [address] Phone [phone] Care Team Providers Care Cold Press Loader Name Role Phone Lizz BUI MD, Efraín León Primary Care Provider [phone] Reason for Visit * Reason Onset Date Comments Encounter Created in Error 03/06/2023 Encounter Details Date Type Department Care Team (Late st Contact Info) Description 03/06/2023 Telephone Family Practice [facility] 200 [place] [address] Efraín Zamudio III, MD 200 [place] [address] Encounter Created in Error Allergies Active Allergy Reactions Criticality Noted Date [...] as of this encounter (statuses as of 06/05/2023) Medications Medication Sig Dispensed Refills Start Date [...] PER DAY. 10 Tablet 0 02/13/2023 Active documented as of this encounter (statuses as of 06/05/2023) Active Problems Problem Noted Date Diagnosed Date [...] as of this encounter (statuses as of 06/05/2023) Resolved Problems Problem Noted Date Diagnosed Date [...] as of this encounter (statuses as of 06/05/2023) Immunizations Name Administration Dates Next Due COVID-19 [...] Visit [facility] [address] [place] [address] Efraín Zamudio III, MD 200 [facility] [place] [address] Scheduled Procedures Name Priority Associated Diagnoses Date/Ti [...] Documents on File Type Date Recorded Patient Associate Technician Expl anation Advance Directives and Living Will 11/03/2008 ADVANCE DIRECTIVE / LIVING WILL Advance Directives and Living Will 11/03/2008 ADVANCE DIRECTIVE / LIVING WILL Power of Junior Oracle Dba 11/03/2008 POWER OF A TTORNEY Power of Junior Oracle Dba 11/03/2008 POWER OF A TTORNEY Power of Junior Oracle Dba 11/03/2008 POWER OF A TTORNEY Care Teams Cold Press Loader Relationship Specialty Start Date End Date Efraín Zamudio III, MD 200 [facility] [place] [address] PCP - General Family Medicine 06/24/21 documented as of this encounter
--- OUTSIDE RECORDS SUMMARY | 2023-08-31 21:05 | External Medical Summary | Summary of Care ---
Author Name Unknown Organization [facility] Address [address] [place] [address] Phone [phone] Care Team Providers Care Machine Hose Cutter Name Role Phone Lizz BUI MD, Efraín León Primary Care Provider [phone] Reason for Visit * Reason Onset Date Comments Referral 05/28/2023 Will agree with sx Encounter Details Date Type Department Care Team (Late st Contact Info) Description 05/28/2023 Telephone Family Practice [facility] 200 [place] [address] Efraín Zamudio III, MD 200 [place] [address] Referral (Will agree with sx) Allergies Active [...] as of this encounter (statuses as of 06/02/2023) Medications Medication Sig Dispensed Refills Start Date [...] Dx: E11.9 100 Strip 3 04/10/2023 Active Zolpidem Tartrate 10 MG Oral Tablet (Ambien) Take 1 Tablet by mouth at bedtime as needed for Sleep. 30 Tablet 0 05/07/2023 Active Esomeprazole Magnesium 40 MG Oral Capsule [...] 90 Tablet 5 04/30/2023 4 Discontinue d(Refill) Ibuprofen 600 MG Oral Tablet (Motrin) Take 1 Tablet by mouth every 8 hours as needed (Headache). 24 Tablet 1 05/22/2023 4 Discontinue d(Refill) documented as of this encounter (statuses as of 06/02/2023) Active Problems Problem Noted Date Diagnosed Date [...] as of this encounter (statuses as of 06/02/2023) Resolved Problems Problem Noted Date Diagnosed Date [...] as of this encounter (statuses as of 06/02/2023) Immunizations Name Administration Dates Next Due COVID-19 [...] encounter Miscellaneous Notes * Telephone Encounter - Ewa Thomas OSA - 06/02/2023 9:55 AM EST Pt is agreeable to having surgery, please call pt with information concerning an appointment for the surgeon. [phone] * Telephone Encounter - Caitie Schafer PA-C [...] until his appointment on 06/18/23. Please advise: [phone] * Telephone Encounter - Agata Bolden LPN [...] referral need to be placed into the [facility] system? Name of preferred specialist: n/a Type of specialist: General Surge Location of specialist: [facility] Phone #: n/a Specialist's Fax #: n/a Reason for visit: Lower Back Surg Date of visit: n/a documented in this encounter Plan of Treatment Upcoming Encounters Date Type Department Care Team (Late st Contact Info) Description 06/18/2023 12:20 PM EDT Office Visit Family Practice [facility] [address] [facility] [place] [address] Efraín Zamudio III, MD [address] [facility] [place] [address] Scheduled Procedures Name Priority Associated Diagnoses Date/Ti [...] Documents on File Type Date Recorded 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
--- OUTSIDE RECORDS SUMMARY | 2023-08-31 21:05 | External Medical Summary | Summary of Care ---
Author Name Unknown Organization [facility] Address [address] [place] [address] Phone [phone] Care Team Providers Care Proof Coins Inspector Name Role Phone Lizz BUI MD, Efraín León Primary Care Provider [phone] Reason for Visit * Reason Onset Date Comments Medication Refill 06/04/2023 Reroute Encounter Details Date Type Department Care Team (Late st Contact Info) Description 06/04/2023 Refill Family Practice [facility] 200 [facility] [place] [address] Efraín Zamudio III, MD 200 [place] [address] Allergies Active Allergy Reactions Criticality Noted Date [...] as of this encounter (statuses as of 06/04/2023) Medications Medication Sig Dispensed Refills Start Date [...] as of this encounter (statuses as of 06/04/2023) Active Problems Problem Noted Date Diagnosed Date [...] as of this encounter (statuses as of 06/04/2023) Resolved Problems Problem Noted Date Diagnosed Date [...] as of this encounter (statuses as of 06/04/2023) Immunizations Name Administration Dates Next Due COVID-19 [...] [facility] ([facility]) (formerly Telepharmacy) [phone] 06/04/2023, 3:42 PM * Telephone Encounter - Neal Tamayo, land examiner - 06/04/2023 3:21 PM EDT Pt's transportation will drop pt off at [facility] by 10AM tomorrow. Please reroute Rx to [facility] [address] [address]. 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
--- OUTSIDE RECORDS SUMMARY | 2023-08-31 21:05 | External Medical Summary | Summary of Care ---
Author Name Unknown Organization [facility] Address [address] [place] [address] Phone [phone] Care Team Providers Care Rn Examiner Name Role Phone Lizz BIU MD, Efraín León Primary Care Provider [phone] Reason for Visit * Reason Onset Date Comments Advice 06/01/2023 Encounter Details Date Type Department Care Team (Late st Contact Info) Description 06/01/2023 Telephone Family Practice [facility] 200 [place] [address] Efraín Zamudio III, MD 200 [place] [address] Advice Allergies Active Allergy Reactions Criticality Noted [...] as of this encounter (statuses as of 06/01/2023) Medications Medication Sig Dispensed Refills Start Date [...] Tablet 2 04/09/2023 Active OneTouch Verio w/Device KitIndications:Diabet ic polyneuropathy [...] a week. 3 mL 6 05/28/2023 Active Ibuprofen 600 MG Oral Tablet (Motrin) Take 1 Tablet by mouth every 8 hours as needed (Headache). 24 Tablet 1 05/28/2023 Active Gabapentin 800 MG Oral Tablet (Neurontin) Take 1 Tablet by mouth in the morning and 1 Tablet at noon and 1 Tablet before bedtime. 90 Tablet 5 06/01/2023 Active documented as of this encounter (statuses as of 06/01/2023) Active Problems Problem Noted Date Diagnosed Date [...] as of this encounter (statuses as of 06/01/2023) Resolved Problems Problem Noted Date Diagnosed Date [...] as of this encounter (statuses as of 06/01/2023) Immunizations Name Administration Dates Next Due COVID-19 [...] Miscellaneous Notes * Telephone Encounter - Caitie Baig OSA - 06/01/2023 1:27 PM EST Pt called to F/U on the medication. Pt only has 5 pills left Please call pt when complete * Telephone Encounter - Agata Bolden LPN - 06/01/2023 9:05 AM EST Pending Prescriptions: Disp Refills Gabapentin 800 MG Oral Tablet (Neurontin) 90 Tab*5 Sig: Take 1 Tablet by mouth in the morning and 1 Tablet at noon and 1 Tablet before bedtime. 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, 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 Brain metastasis C79.31 Small cell lung cancer (HCC) C34.90 Major depressive disorder, recurrent episode, moderate (HCC) F33.1 Chronic back pain M54.9, G89.29 Laceration of toe S91.119A Tenosynovitis of left foot M65.9 Atrial fibrillation (HCC) I48.91 Amputation of toe of right foot (HCC) S98.131A Type 2 diabetes mellitus with hemoglobin A1c goal of less than 7.5% (HCC) E11.9 Labs: Lab Results Component Value Date/Time [...] 11/05/2018 08:59 AM * Telephone Encounter - Olga Gardner OSA - 06/01/2023 8:50 AM EST Patient called because [facility] is supposed to deliver his medications and they have not been or areproviding incorrect dosage. Patient is asking to have his gabapentin called into [facility] in [place]. Patient does not have enough to get through the weekend. Patient is asking that it be calledin today so he can pick it up this morning. documented in this encounter Plan of Treatment Upcoming Encounters Date Type Department Care Team (Late st Contact Info) Description 06/18/2023 12:20 PM EDT Office Visit [facility] [address] [place] [address] Efraín Zamudio III, MD [address] [place] [address] Scheduled Procedures Name Priority Associated Diagnoses Date/Ti [...] Documents on File Type Date Recorded Patient Director Of Nurses Registry Expl anation Advance Directives and Living Will 11/03/2008 ADVANCE DIRECTIVE / LIVING WILL Advance Directives and Living Will 11/03/2008 ADVANCE DIRECTIVE / LIVING WILL Power of Glazing Superintendent 11/03/2008 POWER OF A TTORNEY Power of Glazing Superintendent 11/03/2008 POWER OF A TTORNEY Power of Glazing Superintendent 11/03/2008 POWER OF A TTORNEY Care Teams Rn Examiner Relationship Specialty Start Date End Date Efraín Zamudio III, MD 200 [place] [address] PCP - General Family Medicine 06/24/21 documented as of this encounter
--- OUTSIDE RECORDS SUMMARY | 2023-08-31 21:05 | External Medical Summary | Summary of Care ---
Author Name Unknown Organization [facility] Address [address] [place] [address] Phone [phone] Care Team Providers Care Metal Numerical Control Programmer Name Role Phone Lizz BUI MD, Efraín León Primary Care Provider [phone] Reason for Visit * Reason Onset Date Comments Advice 06/01/2023 Encounter Details Date Type Department Care Team (Late st Contact Info) Description 06/01/2023 Telephone Family Practice [facility] 200 [facility] [place] [address] Efraín Zamudio III, MD 200 [place] [address] Advice Allergies Active Allergy Reactions Criticality Noted [...] Diabetic polyneuropathy (HCC) E11.42 MEDICATION USE AGREEMENT [id number] Postlaminectomy syndrome M96.1 HTN, goal below 140/90 I10 COPD, severity to be determined ([facility]) J44.9 Anxiety and depression F41.9, F32.A Insulin [...] asking to have his gabapentin called into [facility] in [place]. Patient does not have enough to get through the weekend. Patient is asking that it be calledin today so he can pick it up this morning. documented in this encounter Plan of Treatment Upcoming Encounters Date Type Department Care Team (Late st Contact Info) Description 06/18/2023 12:20 PM EDT Office Visit [facility] [address] [place] [address] Efraín Zamudio III, MD [address] [place] [address] Scheduled Procedures Name Priority Associated Diagnoses Date/Ti [...] Documents on File Type Date Recorded Patient Bench Manager Expl anation Advance Directives and Living Will 11/03/2008 ADVANCE DIRECTIVE / LIVING WILL Advance Directives and Living Will 11/03/2008 ADVANCE DIRECTIVE / LIVING WILL Power of Cage Manager 11/03/2008 POWER OF A TTORNEY Power of Cage Manager 11/03/2008 POWER OF A TTORNEY Power of Cage Manager 11/03/2008 POWER OF A TTORNEY Care Teams Metal Numerical Control Programmer Relationship Specialty Start Date End Date Efraín Zamudio III, MD 200 [place] [address] PCP - General Family Medicine 06/24/21 documented as of this encounter
--- OUTSIDE RECORDS SUMMARY | 2023-08-31 21:05 | External Medical Summary | Summary of Care ---
Author Name Unknown Organization [facility] Address [address] [place] [address] Phone [phone] Care Team Providers Care Compensation And Benefits Administrator Name Role Phone Lizz BUI MD, Didier León Primary Care Provider [phone] Reason for Visit * Reason Onset Date Comments Medication Refill 06/04/2023 Encounter Details Date Type Department Care Team (Late st Contact Info) Description 06/04/2023 Refill Family Practice [facility] 200 [place] [address] Didier Huff III, MD 200 [place] [address] Allergies Active Allergy Reactions Criticality Noted Date [...] for Sleep. 30 Tablet 0 06/04/2023 Active Zolpidem Tartrate 10 MG Oral Tablet (Ambien) Take 1 Tablet by mouth at bedtime as needed for Sleep. 30 Tablet 0 05/07/2023 Discontinue d(Refill) documented as of this encounter [...] Encounter - Didier Huff III, MD - 06/04/2023 11:40 AM EDTSigned Prescriptions: Disp Refills Zolpidem Tartrate 10 MG Oral Tablet (Ambie*30 Tab*0 Sig: Take 1 Tablet by mouth at bedtime as needed for Sleep.Authorizing Provider: DIDIER HUFF III * Telephone Encounter - Rachell Tam [facility] - 06/04/2023 10:59 AM EDTPending Prescriptions: Disp Refills Zolpidem Tartrate 10 MG Oral Tablet (Ambie*30 Tab*0 Sig: Take 1 Tablet by mouth at bedtime as needed for Sleep. * Telephone Encounter - Rachell Tam [facility] - 06/04/2023 10:58 AM EDT I have reviewed the patients controlled substance dispensing history in the Prescription Drug Monitoring Program in compliance with the [facility] regulations before prescribing a controlled substance. PDMP checked on 06/04/2023. Pending Prescriptions: Disp Refills Zolpidem Tartrate 10 MG Oral Tablet (Ambi*30 Tab*0 Sig: Take 1 Tablet by mouth at bedtime as needed for Sleep. Last Visit: 03/14/2023 (in office), 07/15/2019 (telemedicine) Next Visit: 06/18/2023 Date medication was last filled: 05/07 Date medication is due for refill: 06/04 Pharmacy: [facility] Is this request for a controlled substance? Yes and Urine Drug Screen Not completed Toxicology results: No results found. However, due to the size of the patient record, not all encounters were searched.Please check Results Review for a complete set of results. Please approve if appropriate. Thank you, Rachell Tam, PharmD Clinical Pharmacist Centralized Clinical Pharmacy Services (CCPS) (formerly Telepharmacy) [phone] 06/04/2023, 10:58 AM * Telephone Encounter - Stephanie Lopez CPhT - 06/04/2023 10:30 AM EDT Pt only has a ride to [place] Please advise Did you pend patient's preferred pharmacy and medication before forwarding?yes Pharmacy: [facility] [address] [address] [address] Pending Prescriptions: Disp Refills Zolpidem Tartrate 10 MG Oral Tablet (Ambi*30 Tab*0 Sig: Take 1 Tablet by mouth at bedtime as needed for Sleep. Last Visit: 03/14/2023 (in office), 07/15/2019 (telemedicine) Next Visit: 06/18/2023 If no future appointments scheduled, and last appointment is greater than a year ago, please schedule patient for a follow-up appointment Last date the medication was ordered: 05/07/23 Is this request for a controlled substance?Yes, What was the last refill date 05/07/23 w/ quantity 30 and dosage 1 at bedtime and Urine Drug Screen Not completed Urine [...] Practice [facility] [address] [place] [address] Didier Huff III, MD [address] [place] [address] Scheduled Procedures Name Priority Associated Diagnoses Date/Ti [...] Documents on File Type Date Recorded 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
--- OUTSIDE RECORDS SUMMARY | 2023-08-31 21:06 | External Medical Summary | Summary of Care ---
Author Name Unknown Organization [facility] Address [address] [place] [address] Phone [phone] Care Team Providers Care Can Crimper Name Role Phone Lizz BUI MD, Efraín León Primary Care Provider [phone] Reason for Referral * Medication Prior Authorization - Closed Specialty Diagnoses / Procedures Referred By Toshia marino Referred To Contact Diagnoses Type 2 diabetes mellitus with hemoglobin A1c goal of less than 7.5% ([facility]) Caitie Schafer PA-C [address] [facility] [place] [address] Referral ID Status Reason Start Date Expiration Date Visits Re quested Visits Authorized [id number] Closed 999 999 Reason for Visit * Reason Onset Date Comments Advice 05/28/2023 Medication refil l Encounter Details Date Type Department Care Team (Late st Contact Info) Description 05/28/2023 Telephone Family Practice [place] [address] [place] [address] Efraín Zamudio III, MD [address] [facility] [place] [address] Advice (Medication refill ) Allergies Active Allergy Reactions Criticality Noted Date [...] as of this encounter (statuses as of 05/28/2023) Medications Medication Sig Dispensed Refills Start Date [...] Dx: E11.9 100 Strip 3 04/10/2023 Active Gabapentin 800 MG Oral Tablet (Neurontin) Take 1 Tablet by mouth in the morning and 1 Tablet at noon and 1 Tablet before bedtime. 90 Tablet 5 04/30/2023 Active Zolpidem Tartrate 10 MG Oral Tablet [...] needed (Headache). 24 Tablet 1 05/28/2023 Active Ozempic (1 MG/DOSE) 4 MG/3ML Subcutaneous Solution Pen-injector (Semaglutide (1 MG/DOSE)) Inject 1 mg under the skin once a week. 3 mL 6 10/25/2022 4 Discontinue d(Refill) Ibuprofen 600 MG Oral Tablet (Motrin) Take 1 Tablet by mouth every 8 hours as needed (Headache). 24 Tablet 1 05/22/2023 4 Discontinue d(Refill) documented as of this encounter (statuses as of 05/28/2023) Active Problems Problem Noted Date Diagnosed Date [...] as of this encounter (statuses as of 05/28/2023) Resolved Problems Problem Noted Date Diagnosed Date [...] as of this encounter (statuses as of 05/28/2023) Immunizations Name Administration Dates Next Due COVID-19 [...] Telephone Encounter - Caitie Schafer PA-C - 05/28/2023 7:41 PM EST Script signed * Telephone Encounter - Agata Bolden, LAUNDRY PRESSER - 05/28/2023 8:39 AM EST Pending Prescriptions: Disp Refills Ozempic (1 MG/DOSE) 4 MG/3ML Subcutaneous*3 mL 6 Sig: Inject 1 mg under the skin once a week. Ibuprofen 600 MG Oral Tablet (Motrin) 24 Tab*1 Sig: Take 1 Tablet by mouth every 8 hours as needed (Headache). Last Visit: 03/14/2023 (in office), 07/15/2019 (telemedicine) Next Visit: 06/18/2023 Last date the medication was ordered: 10/25/2022 Patient Active Problem List Diagnosis Code Esophageal reflux K21.9 Spinal stenosis of lumbar region without neurogenic claudication M48.061 DYSLIPIDEMIA, GOAL LDL BELOW 100 E78.5 Tobacco use disorder F17.200 Diabetic polyneuropathy ([facility]) E11.42 MEDICATION USE AGREEMENT [id number] Postlaminectomy syndrome M96.1 HTN, goal below 140/90 I10 COPD, severity to be determined ([facility]) J44.9 Anxiety and depression F41.9, F32.A Insulin dependent type 2 diabetes mellitus ([facility]) E11.9, Z79.4 Brain metastasis C79.31 Small cell lung cancer ([facility]) C34.90 Major depressive disorder, recurrent episode, moderate ([facility]) F33.1 Chronic back pain M54.9, G89.29 Laceration of toe S91.119A Tenosynovitis of left foot M65.9 Atrial fibrillation ([facility]) I48.91 Amputation of toe of right foot ([facility]) S98.131A Type 2 diabetes mellitus with hemoglobin A1c goal of less than 7.5% ([facility]) E11.9 Labs: Lab Results Component Value Date/Time [...] 11/05/2018 08:59 AM * Telephone Encounter - Janna Hernandes OSA - 05/28/2023 8:29 AM EST Pt called in advise he needs medication Ozempic (1 MG/DOSE) 4 MG refill on by Wednesday 05/31 since hetakes it every Sunday refill send over to [facility] pharmacy and medication Ibuprofen 600 MG needs refill as well only has two left if this one can be send to [facility] please call pt and follow up. Thank you TONIE Ge documented in this encounter Plan of Treatment Upcoming Encounters Date Type Department Care Team (Late st Contact Info) Description 06/18/2023 12:20 PM EDT Office Visit Family Practice [place] [facility] [address] [facility] [place] [address] Efraín Zamudio III, MD [address] [facility] [place] [address] Scheduled Procedures Name Priority Associated Diagnoses Date/Ti [...] 2) 08/23/2022 06/28/2022, 11/24 HbA1c 06/30/2023 12/29/2022, 04/07/2022, 04/14/2021, Additional history exists Albumin/Creatinine Ratio 07/12/2023 [...] 07/13/2021, 01/09/2020, 12/30/2008 Lipid Panel 02/08/2028 02/07/2023, 0407/2022, 03/10/2021, Additional history exists DTaP,Tdap,and Td Vaccines [...] hemoglobin A1c goal of less than 7.5% (HCC)- Primary documented in this encounter Advance Directives Documents on File Type Date Recorded Patient Die Cleaner Expl anation Advance Directives and Living Will 11/03/2008 ADVANCE DIRECTIVE / LIVING WILL Advance Directives and Living Will 11/03/2008 ADVANCE DIRECTIVE / LIVING WILL Power of Head Waiter/Waitress Banquet 11/03/2008 POWER OF A TTORNEY Power of Head Waiter/Waitress Banquet 11/03/2008 POWER OF A TTORNEY Power of Head Waiter/Waitress Banquet 11/03/2008 POWER OF A TTORNEY Care Teams Can Crimper Relationship Specialty Start Date End Date Efraín Zamudio III, MD 200 [facility] [place] [address] PCP - General Family Medicine 06/24/21 documented as of this encounter
--- OUTSIDE RECORDS SUMMARY | 2023-08-31 21:06 | External Medical Summary | Summary of Care ---
Author Name Unknown Organization [facility] Address [address] [place] [address] Phone [phone] Care Team Providers Care Refuse Laborer Name Role Phone Lizz BUI MD, Efraín León Primary Care Provider [phone] Reason for Visit * Reason Onset Date Comments Test Results 05/18/2023 FYI 05/18/2023 Encounter Details Date Type Department Care Team (Late st Contact Info) Description 05/18/2023 Telephone Family Practice [facility] 200 [facility] [place] [address] Efraín Zamudio III, MD 200 [facility] [place] [address] Test Results; Allergies Active Allergy Reactions Criticality Noted Date [...] silvadene cream. 100 Each 5 09/13/2022 Active Ozempic (1 MG/DOSE) 4 MG/3ML Subcutaneous Solution Pen-injector (Semaglutide (1 MG/DOSE)) Inject 1 mg under the skin once a week. 3 mL 6 10/25/2022 Active Rosuvastatin Calcium 40 MG Oral Tablet [...] for Anxiety. 21 Tablet 0 05/15/2023 Active documented as of this encounter (statuses [...] encounter Miscellaneous Notes * Telephone Encounter - Rosaline Ojeda LPN - 05/28/2023 10:58 AM EST See other encounters * Telephone Encounter - Ewa Hernandez OSA - 05/25/2023 12:01 PM EST Roddy is waiting to here back on an update about his back problems. He states he was informed that henadams surery and would here something back by Wednesday 05/24 about this, but hasn't heard anything yet.Please call patient back to advice on next steps * Telephone Encounter - Madeline Ernandez LPN - 05/21/2023 4:26 PM EST Patient called. Given message. He rarely leaves the house. Can't get around because of his back. Placed with Dr. Zamudio on Sunday at 10:40 a.m. with video appt. * Telephone Encounter - Efraín Zamudio III, MD - 05/21/2023 10:30 AM EST Would be best to make an appointment to discuss this * Telephone Encounter - Angel Del Castillo OSA - 05/18/2023 2:48 PM EST Pt calling requesting a call back to go over pt's MRI results of his back from 05/10. Pt would like a detailed explanation of what is wrong with his back. Please call pt back at [phone]. documented in this encounter Plan of Treatment Upcoming Encounters Date Type Department Care Team (Late st Contact Info) Description 06/18/2023 12:20 PM EDT Office Visit Family Practice [place] [address] [place] [address] Efraín Zamudio III, MD 200 [facility] [place] [address] Scheduled Procedures Name Priority Associated Diagnoses Date/Ti [...] Documents on File Type Date Recorded Patient Drug Safety Assistant Expl anation Advance Directives and Living Will 11/03/2008 ADVANCE DIRECTIVE / LIVING WILL Advance Directives and Living Will 11/03/2008 ADVANCE DIRECTIVE / LIVING WILL Power of Clerical Warehouseman 11/03/2008 POWER OF A TTORNEY Power of Clerical Warehouseman 11/03/2008 POWER OF A TTORNEY Power of Clerical Warehouseman 11/03/2008 POWER OF A TTORNEY Care Teams Refuse Laborer Relationship Specialty Start Date End Date Efraín Zamudio III, MD 200 [facility] [place] [address] PCP - General Family Medicine 06/24/21 documented as of this encounter
--- OUTSIDE RECORDS SUMMARY | 2023-08-31 21:06 | External Medical Summary | Summary of Care ---
Author Name Unknown Organization [facility] Address [address] [place] [address] Phone [phone] Care Team Providers Care Girl Friday Name Role Phone Lizz BUI MD, Efraín León Primary Care Provider [phone] Reason for Visit * Reason Onset Date Comments Advice 02/22/2023 Encounter Details Date Type Department Care Team (Late st Contact Info) Description 02/22/2023 Telephone Family Practice [facility] 200 [facility] [place] [address] Efraín Zamudio III, MD 200 [place] [address] Advice Allergies Active Allergy Reactions Criticality Noted [...] as of this encounter (statuses as of 05/24/2023) Medications Medication Sig Dispensed Refills Start Date End Date Status Silver sulfADIAZINE 1 % External Cream (Silvadene)Indicat ions:Wound of left foot,Osteomyelitis of toe (HCC) Apply topically to affected area daily. Apply to foot. 50 g 1 3 Active Gauze Pads 4"X4" PadIndications:Wou nd of left foot,Osteomyelitis of toe (HCC) Apply to the foot daily with silvadene cream. 100 Each 5 3 Active Ozempic (1 MG/DOSE) 4 MG/3ML Subcutaneous Solution Pen-injector (Semaglutide (1 MG/DOSE)) Inject 1 mg under the skin once a week. 3 mL 6 3 Active Rosuvastatin Calcium 40 MG Oral Tablet (Crestor)Indicatio ns:Dyslipidemia, goal LDL below 100 Take 1 Tablet by mouth at bedtime. 90 Tablet 1 3 Active Rizatriptan Benzoate 10 MG Oral Tablet (Maxalt) TAKE 1 TABLET BY MOUTH NEEDED FOR MIGRAINE. CAN REPEAT DOSE IN 1 HOUR IF NEEDED. MAXIMUM DOSE OF 20mg PER DAY. 10 Tablet 0 3 Active Contour Next Monitor w/Device KitIndications:Alondra betic polyneuropathy associated with type 2 diabetes mellitus (HCC),Diabetes type 2, uncontrolled Use as directed . 1 Kit 0 2 04/07/19 24 Discontinued(Ref ill) LancetsIndications :Diabetic polyneuropathy associated with type 2 diabetes mellitus (HCC) Use as directed 5 times daily 200 Each 11 2 04/06/19 24 Discontinued(Ref ill) Contour Next Test In Vitro Strip (Glucose Blood)Indications: Diabetic polyneuropathy associated with type 2 diabetes mellitus (HCC) Test five times daily for use with multiple daily insulin injections-be fore all meals, snacks, exercise, and one to two times during the night. Dx: E11.9 200 Strip 5 2 04/07/19 24 Discontinued(Ref ill) Esomeprazole Magnesium 40 MG Oral Capsule Delayed Release (NexIUM) Take 1 Capsule by mouth in the morning. 1 hour before the first meal of the day. 30 Capsule 4 3 05/08/19 24 Discontinued(Ref ill) traZODone HCl 50 MG Oral Tablet (Desyrel) Take 1 Tablet by mouth at bedtime. 30 Tablet 2 3 03/14/20 23 Discontinued(Ref ill) LORazepam 0.5 MG Oral Tablet (Ativan) Take 1 Tablet by mouth every 8 hours as needed for Anxiety. 21 Tablet 0 3 05/15/19 24 Discontinued(Ref ill) Diclofenac Sodium 1 % External Gel (Voltaren) Apply topically to affected area 4 times a day. 2 grams/ dose Apply to knee as needed for pain 100 g 1 3 04/09/19 24 Discontinued(Ref ill) Gabapentin 300 MG Oral Capsule (Neurontin) Twice daily 60 Capsule 5 3 03/14/20 23 Discontinued Zolpidem Tartrate 10 MG Oral Tablet (Ambien) Take 1 Tablet by mouth at bedtime as needed for Sleep. 30 Tablet 0 3 03/14/20 23 Discontinued(Ref ill) documented as of this encounter (statuses as of 05/24/2023) Active Problems Problem Noted Date Diagnosed Date [...] as of this encounter (statuses as of 05/24/2023) Resolved Problems Problem Noted Date Diagnosed Date [...] as of this encounter (statuses as of 05/24/2023) Immunizations Name Administration Dates Next Due COVID-19 [...] encounter Miscellaneous Notes * Telephone Encounter - Liya Gates DO - 03/01/2023 4:35 PM EST If he calls back I recommend acute appt, (final answer) * Telephone Encounter - Nina Cunningham RN - 03/01/2023 2:28 PM EST Advised pt that if he has an infection in his mouth he needs to address it before March. Informedhim of Dr. Gates note below. Pt verbalized understanding. But he said his mouth is not bothering him right now and the last time he went to the ER he had to call his brother to pick him up and he doesn't want to do that. * Telephone Encounter - Nina Cunningham RN - 02/27/2023 4:16 PM EST Mail box is full. * Telephone Encounter - Liya Gates DO - 02/23/2023 4:[address] Zamudio is not here, I believe pt that Lizz saw it, but nothing is documented in chart and we need to know what we are treating. I can't call anything in. I'm concerned about the pains you are having, would recommend calling 911or going to ER could be cardiac related. * Telephone Encounter - Sasha Arellano, [facility] - 02/23/2023 11:09 AM EST Called pt to let him know the Crestor has a refill at [facility]. Pt states he needs the antibiotic for his mouth. Pt states when he last saw Dr. Zamudio he stated his mouth looked bad but pt statedhe didn't have pain at that time. Now pt states he is having a lot of pain. * Telephone Encounter - Sharita Ortiz CPhT - 02/23/2023 9:29 AM EST Patient is calling about the request for Crestor. States that he is also requesting for an antibiotic to be sent. States that he only has 5 teeth in his mouth and he is having pain. Patient is askingfor high priority. Please advise. Thank you, Sharita Ortiz [facility] 02/23/2023,9:30 AM * Telephone Encounter - Eliel Rose PHARM Tech - 02/22/2023 4:14 PM EST Pt calling back stating he took a nap this afternoon and woke up with the burning sensation was back and is asking for someone to please contact him back. Pt can be reached: [phone] Thanks, Eliel Denise, t [facility] 02/22/2023,4:15 PM * Telephone Encounter - Liya Gates DO - 02/22/2023 2:49 PM EST Can discuss this at appointment too. Should hve workup for unexplained increase in symptoms despitealready being on PPI * Telephone Encounter - Jeannine Darling OSA - 02/22/2023 9:53 AM EST Patient states he take Crestor at night and having a burning sensation and asking if reflux medication can be changed to taking it morning and night. Can be reached at [phone] documented in this encounter Plan of Treatment Upcoming Encounters Date Type Department Care Team (Late st Contact Info) Description 06/18/2023 12:20 PM EDT [facility] 200 [facility] [place] [address] Efraín Zamudio III, MD 200 [facility] [place] [address] Scheduled Procedures Name Priority Associated Diagnoses Date/Ti [...] as of this encounter Visit Diagnoses Diagnosis Dyslipidemia, goal LDL below 100 Other and unspecified hyperlipidemia documented in this encounter Advance Directives Documents on File Type Date Recorded Patient Global Professional Expl anation Advance Directives and Living Will 11/03/2008 ADVANCE DIRECTIVE / LIVING WILL Advance Directives and Living Will 11/03/2008 ADVANCE DIRECTIVE / LIVING WILL Power of Record Press Tender 11/03/2008 POWER OF A TTORNEY Power of Record Press Tender 11/03/2008 POWER OF A TTORNEY Power of Record Press Tender 11/03/2008 POWER OF A TTORNEY Care Teams Girl Friday Relationship Specialty Start Date End Date Efraín Zamudio III, MD [address] [place] [address] PCP - General Family Medicine 06/24/21 documented as of this encounter
--- OUTSIDE RECORDS SUMMARY | 2023-08-31 21:06 | External Medical Summary | Summary of Care ---
Author Name Unknown Organization [facility] Address [address] [place] [address] Phone [phone] Care Team Providers Care Events Specialist Name Role Phone Lizz BUI MD, Efraín León Primary Care Provider [phone] Reason for Visit * Reason Onset Date Comments Referral 05/28/2023 Encounter Details Date Type Department Care Team (Late st Contact Info) Description 05/28/2023 Telephone Family Practice [facility] 200 [facility] [place] [address] Efraín Zamudio III, MD 200 [place] [address] Referral Allergies Active Allergy Reactions Criticality Noted Date [...] as of this encounter (statuses as of 05/29/2023) Medications Medication Sig Dispensed Refills Start Date [...] as of this encounter (statuses as of 05/29/2023) Active Problems Problem Noted Date Diagnosed Date [...] as of this encounter (statuses as of 05/29/2023) Resolved Problems Problem Noted Date Diagnosed Date [...] as of this encounter (statuses as of 05/29/2023) Immunizations Name Administration Dates Next Due COVID-19 [...] encounter Miscellaneous Notes * Telephone Encounter - Renetta Courtney OSA - 05/29/2023 9:42 AM EST Patient has been notified of the message. Patient states he cannot wait until his appointment on 06/18/23. Please advise: [phone] * Telephone Encounter - Agata Bolden LPN [...] referral need to be placed into the [employer] system? Name of preferred specialist: n/a Type of specialist: General Surge Location of specialist: [facility] Phone #: n/a Specialist's Fax #: n/a Reason for visit: Lower Back Surg Date of visit: n/a documented in this encounter Plan of Treatment Upcoming Encounters Date Type Department Care Team (Late st Contact Info) Description 06/18/2023 12:20 PM EDT Office Visit Family Practice [facility] [place] 200 [facility] [place] [address] Efraín Zamudio III, MD 200 [facility] [place] [address] Scheduled Procedures Name Priority Associated Diagnoses Date/Ti [...] Documents on File Type Date Recorded Patient Agriculture Technician Expl anation Advance Directives and Living Will 11/03/2008 ADVANCE DIRECTIVE / LIVING WILL Advance Directives and Living Will 11/03/2008 ADVANCE DIRECTIVE / LIVING WILL Power of Measurement Department Chief Clerk 11/03/2008 POWER OF A TTORNEY Power of Measurement Department Chief Clerk 11/03/2008 POWER OF A TTORNEY Power of Measurement Department Chief Clerk 11/03/2008 POWER OF A TTORNEY Care Teams Events Specialist Relationship Specialty Start Date End Date Efraín Zamudio III, MD 200 [place] [address] PCP - General Family Medicine 06/24/21 documented as of this encounter
--- OUTSIDE RECORDS SUMMARY | 2023-08-31 21:06 | External Medical Summary | Summary of Care ---
Author Name Unknown Organization [facility] Address [address] [place] [address] Phone [phone] Care Team Providers Care Wood Room Hand Name Role Phone Lizz BUI MD, Efraín León Primary Care Provider [phone] Reason for Visit * Reason Onset Date Comments Medication Refill 06/01/2023 Encounter Details Date Type Department Care Team (Late st Contact Info) Description 06/01/2023 Refill Family Practice [facility] 200 [place] [address] Efraín Zamudio III, MD 200 [place] [address] Allergies Active Allergy Reactions Criticality Noted Date [...] Tablet before bedtime. 90 Tablet 5 04/30/2023 Discontinue d(Refill) documented as of this encounter [...] embolism 03/12/2017 2 Poor venous access 11/21/2016 08/30/202 1 Encounter for antineoplastic chemotherapy 10/10/2016 11/22/2020 [...] Overview: Per HTN Taxonomy. Mixed dyslipidemia 06/24/2008 12/ 9 Overview: Per Lipid Taxonomy. documented as [...] encounter Miscellaneous Notes * Telephone Encounter - Gena Rodriges RPh - 06/01/2023 3:31 PM ESTSigned Prescriptions: Disp Refills Gabapentin 800 MG Oral Tablet (Neurontin) 90 Tab*4 Sig: Take 1 Tablet by mouth in the morning and 1 Tablet at noon and 1 Tablet before bedtime.Authorizing Provider:VITO WASHINGTON User: GENA RODRIGES * Telephone Encounter - Ewa Martins CPhT - 06/01/2023 3:19 PM EST Pt is asking high priority Please reroute Rx to [facility] [place]. Pending Prescriptions: Disp Refills Gabapentin 800 MG [...] EDT Office Visit Family Practice [place] [address] [place] [address] Hendry IIIEfraín MD [address] [place] [address] Scheduled Procedures Name Priority Associated Diagnoses Date/Ti [...] Documents on File Type Date Recorded Patient Foaming Machine Operator Expl anation Advance Directives and Living Will 11/03/2008 ADVANCE DIRECTIVE / LIVING WILL Advance Directives and Living Will 11/03/2008 ADVANCE DIRECTIVE / LIVING WILL Power of Director Of Cath Lab 11/03/2008 POWER OF A TTORNEY Power of Director Of Cath Lab 11/03/2008 POWER OF A TTORNEY Power of Director Of Cath Lab 11/03/2008 POWER OF A TTORNEY Care Teams Wood Room Hand Relationship Specialty Start Date End Date Efraín Zamudio III, MD [address] [place] [address] PCP - General Family Medicine 06/24/21 documented as of this encounter
--- OUTSIDE RECORDS SUMMARY | 2023-08-31 21:06 | External Medical Summary | Summary of Care ---
Author Name Unknown Organization [facility] Address [address] [place] [address] Phone [phone] Care Team Providers Care Industrial Maintenance Repairer Helper Name Role Phone Lizz BUI MD, Efraín León Primary Care Provider [phone] Reason for Visit * Reason Onset Date Comments Referral 05/28/2023 Encounter Details Date Type Department Care Team (Late st Contact Info) Description 05/28/2023 Telephone Family Practice [facility] 200 [place] [address] Efraín Zamudio III, MD 200 [place] [address] Referral Allergies Active Allergy Reactions Criticality Noted [...] for Anxiety. 21 Tablet 0 05/15/2023 Active Ibuprofen 600 MG Oral Tablet (Motrin) Take 1 Tablet by mouth every 8 hours as needed (Headache). 24 Tablet 1 05/22/2023 Active documented as of this encounter (statuses [...] referral need to be placed into the [employer] system? Name of preferred specialist: n/a Type [...] Visit Family Practice [place] 200 [facility] [place] [address] Efraín Zamudio III, MD 200 [facility] [place] [address] Scheduled Procedures Name Priority Associated Diagnoses Date/Ti [...] Documents on File Type Date Recorded Patient Researcher Expl anation Advance Directives and Living Will 11/03/2008 ADVANCE DIRECTIVE / LIVING WILL Advance Directives and Living Will 11/03/2008 ADVANCE DIRECTIVE / LIVING WILL Power of Manager Call 11/03/2008 POWER OF A TTORNEY Power of Manager Call 11/03/2008 POWER OF A TTORNEY Power of Manager Call 11/03/2008 POWER OF A TTORNEY Care Teams Industrial Maintenance Repairer Helper Relationship Specialty Start Date End Date Efraín Zamudio III, MD [address] [place] [address] PCP - General Family Medicine 06/24/21 documented as of this encounter
--- OUTSIDE RECORDS SUMMARY | 2023-08-31 21:06 | External Medical Summary | Summary of Care ---
Author Name Unknown Organization [facility] Address [address] [place] [address] Phone [phone] Care Team Providers Care Production Posting Clerk Name Role Phone Lizz BUI MD, Efraín León Primary Care Provider [phone] Reason for Visit * Reason Onset Date Comments Referral 05/28/2023 Encounter Details Date Type Department Care Team (Late st Contact Info) Description 05/28/2023 Telephone Family Practice [facility] [address] [place] [address] Efraín Zamudio III, MD 200 [place] [address] Referral Allergies Active Allergy Reactions Criticality Noted [...] as of this encounter (statuses as of 05/31/2023) Medications Medication Sig Dispensed Refills Start Date [...] as of this encounter (statuses as of 05/31/2023) Active Problems Problem Noted Date Diagnosed Date [...] as of this encounter (statuses as of 05/31/2023) Resolved Problems Problem Noted Date Diagnosed Date [...] as of this encounter (statuses as of 05/31/2023) Immunizations Name Administration Dates Next Due COVID-19 [...] until his appointment on 06/18/23. Please advise: [phone] * Telephone Encounter - Agata Bolden LPN [...] referral need to be placed into the [employer] system? Name of preferred specialist: n/a Type of specialist: General Surge Location of specialist: [facility] Phone #: n/a Specialist's Fax #: n/a Reason for visit: Lower Back Surg Date of visit: n/a documented in this encounter Plan of Treatment Upcoming Encounters Date Type Department Care Team (Late st Contact Info) Description 06/18/2023 12:20 PM EDT [facility] [address] [facility] [address] Efraín Zamudio III, MD 200 [place] [address] Scheduled Procedures Name Priority Associated Diagnoses Date/Ti [...] Documents on File Type Date Recorded Patient Migratory Game Bird Biologist Expl anation Advance Directives and Living Will 11/03/2008 ADVANCE DIRECTIVE / LIVING WILL Advance Directives and Living Will 11/03/2008 ADVANCE DIRECTIVE / LIVING WILL Power of Skiing Instructor 11/03/2008 POWER OF A TTORNEY Power of Skiing Instructor 11/03/2008 POWER OF A TTORNEY Power of Skiing Instructor 11/03/2008 POWER OF A TTORNEY Care Teams Production Posting Clerk Relationship Specialty Start Date End Date Efraín Zamudio III, MD 200 [place] [address] PCP - General Family Medicine 06/24/21 documented as of this encounter
--- OUTSIDE RECORDS SUMMARY | 2023-08-31 21:06 | External Medical Summary | Summary of Care ---
Author Name Unknown Organization [facility] Address [address] [place] [address] Phone [phone] Care Team Providers Care Easement Man Name Role Phone Lizz BUI MD, Efraín León Primary Care Provider [phone] Reason for Visit * Reason Onset Date Comments Referral 05/28/2023 Encounter Details Date Type Department Care Team (Late st Contact Info) Description 05/28/2023 Telephone Family Practice [facility] [address] [place] [address] Efraín Zamudio III, MD 200 [place] [address] Referral Allergies Active Allergy Reactions Criticality Noted [...] as of this encounter (statuses as of 05/30/2023) Medications Medication Sig Dispensed Refills Start Date [...] as of this encounter (statuses as of 05/30/2023) Active Problems Problem Noted Date Diagnosed Date [...] as of this encounter (statuses as of 05/30/2023) Resolved Problems Problem Noted Date Diagnosed Date [...] as of this encounter (statuses as of 05/30/2023) Immunizations Name Administration Dates Next Due COVID-19 [...] Miscellaneous Notes * Telephone Encounter - Reyna Lentz OSA [...] until his appointment on 06/18/23. Please advise: [phone] * Telephone Encounter - Agata Bolden LPN [...] referral need to be placed into the [employer] system? Name of preferred specialist: n/a Type of specialist: General Surge Location of specialist: [facility] Phone #: n/a Specialist's Fax #: n/a Reason for visit: Lower Back Surg Date of visit: n/a documented in this encounter Plan of Treatment Upcoming Encounters Date Type Department Care Team (Late st Contact Info) Description 06/18/2023 12:20 PM EDT Office Visit Family Practice [address] [place] [address] Efraín Zamudio III, MD [address] [address] Scheduled Procedures Name Priority Associated Diagnoses Date/Ti [...] Documents on File Type Date Recorded Patient Health Information Specialist Expl anation Advance Directives and Living Will 11/03/2008 ADVANCE DIRECTIVE / LIVING WILL Advance Directives and Living Will 11/03/2008 ADVANCE DIRECTIVE / LIVING WILL Power of Material Hauler 11/03/2008 POWER OF A TTORNEY Power of Material Hauler 11/03/2008 POWER OF A TTORNEY Power of Material Hauler 11/03/2008 POWER OF A TTORNEY Care Teams Easement Man Relationship Specialty Start Date End Date Efraín Zamudio III, MD 200 [place] [address] PCP - General Family Medicine 06/24/21 documented as of this encounter
--- OUTSIDE RECORDS SUMMARY | 2023-08-31 21:06 | External Medical Summary | Summary of Care ---
Author Name Unknown Organization [facility] Address [address] [place] [address] Phone [phone] Care Team Providers Care Duct Layer Supervisor Name Role Phone Lizz BUI MD, Efraín León Primary Care Provider [phone] Reason for Visit * Reason Onset Date Comments Referral 05/28/2023 Encounter Details Date Type Department Care Team (Late st Contact Info) Description 05/28/2023 Telephone Family Practice [facility] 200 [place] [address] Efraín Zamudio III, MD 200 [place] [address] Referral Allergies Active Allergy Reactions Criticality Noted [...] until his appointment on 06/18/23. Please advise: [phone] * Telephone Encounter - Agata Bolden LPN [...] referral need to be placed into the [employer] system? Name of preferred specialist: n/a Type of specialist: General Surge Location of specialist: [facility] Phone #: n/a Specialist's Fax #: n/a Reason for visit: Lower Back Surg Date of visit: n/a documented in this encounter Plan of Treatment Upcoming Encounters Date Type Department Care Team (Late st Contact Info) Description 06/18/2023 12:20 PM EDT Office Visit Family [facility] [place] [address] [address] Efraín Zamudio III, MD [address] [place] [address] Scheduled Procedures Name Priority Associated Diagnoses Date/Ti [...] Documents on File Type Date Recorded Patient Publications Designer Expl anation Advance Directives and Living Will 11/03/2008 ADVANCE DIRECTIVE / LIVING WILL Advance Directives and Living Will 11/03/2008 ADVANCE DIRECTIVE / LIVING WILL Power of Nursing Coordinator 11/03/2008 POWER OF A TTORNEY Power of Nursing Coordinator 11/03/2008 POWER OF A TTORNEY Power of Nursing Coordinator 11/03/2008 POWER OF A TTORNEY Care Teams Duct Layer Supervisor Relationship Specialty Start Date End Date Efraín Zamudio III, MD 200 [place] [address] PCP - General Family Medicine 06/24/21 documented as of this encounter
--- OUTSIDE RECORDS SUMMARY | 2023-08-31 21:06 | External Medical Summary | Summary of Care ---
Author Name Unknown Organization [facility] Address [address] [place] [address] Phone [phone] Care Team Providers Care English Lecturer Name Role Phone Lizz BUI MD, Efraín León Primary Care Provider [phone] Reason for Visit * Reason Onset Date Comments Referral 05/28/2023 Encounter Details Date Type Department Care Team (Late st Contact Info) Description 05/28/2023 Telephone Family Practice [facility] 200 [facility] [place] [address] Efraín Zamudio III, MD 200 [place] [address] Referral Allergies Active Allergy Reactions Criticality Noted [...] until his appointment on 06/18/23. Please advise: [phone] * Telephone Encounter - Agata Bolden LPN [...] referral need to be placed into the [employer] system? Name of preferred specialist: n/a Type of specialist: General Surge Location of specialist: [facility] Phone #: n/a Specialist's Fax #: n/a Reason for visit: Lower Back Surg Date of visit: n/a documented in this encounter Plan of Treatment Upcoming Encounters Date Type Department Care Team (Late st Contact Info) Description 06/18/2023 12:20 PM EDT Office Visit Family Practice [facility] [place] 200 [facility] [place] [address] Efraín Zamudio III, MD 200 [facility] [place] [address] Scheduled Procedures Name Priority Associated Diagnoses Date/Ti [...] on File Type Date Recorded Patient Finishing Manager Expl anation Advance Directives and Living Will 11/03/2008 ADVANCE DIRECTIVE / LIVING WILL Advance Directives and Living Will 11/03/2008 ADVANCE DIRECTIVE / LIVING WILL Power of Supervisor Laboratory 11/03/2008 POWER OF A TTORNEY Power of Supervisor Laboratory 11/03/2008 POWER OF A TTORNEY Power of Supervisor Laboratory 11/03/2008 POWER OF A TTORNEY Care Teams English Lecturer Relationship Specialty Start Date End Date Bucks III, Efraín León MD 200 [facility] [place] [address] PCP - General Family Medicine 06/24/21 documented as of this encounter
--- OUTSIDE RECORDS SUMMARY | 2023-08-31 21:06 | External Medical Summary | Summary of Care ---
Author Name Unknown Organization [facility] Address [address] [place] [address] Phone [phone] Care Team Providers Care Technical Writer And Editor Name Role Phone Lizz BUI MD, Efraín León Primary Care Provider [phone] Reason for Visit * Reason Comments eRx-Medication Refill Encounter Details Date Type Department Care Team (Late st Contact Info) Description 05/29/2023 Refill Family Practice [facility] 200 [facility] [place] [address] Efraín Zamudio III, MD 200 [place] [address] Type 2 diabetes mellitus with hemoglobin A1c goal of less than 7.5% ([facility]) Allergies Active Allergy Reactions Criticality Noted Date [...] needed (Headache). 24 Tablet 1 05/28/2023 Active documented as of this encounter (statuses [...] encounter Miscellaneous Notes * Telephone Encounter - Marcella Alejandre RPh - 05/30/2023 4:39 PM ESTRefused Prescriptions: Disp Refills Ozempic (1 MG/DOSE) 4 MG/3ML Subcutaneous *3 mL 0 Sig: INJECT 1MG SUBCUTANEOUSLY ONCE A WEEKRefused By: Kimmy ALEJANDRE for Refusal: Duplicate Request-------- documented in this encounter Plan of Treatment Upcoming Encounters Date Type Department Care Team (Late st Contact Info) Description 06/18/2023 12:20 PM EDT Office Visit Family Practice [facility] [address] [place] [address] [address] Efraín Zamudio III, MD [address] [place] [address] Scheduled Procedures Name Priority Associated Diagnoses Date/Ti [...] of less than 7.5% ([facility]) documented in this encounter Advance Directives Documents on File Type Date Recorded 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
--- OUTSIDE RECORDS SUMMARY | 2023-08-31 21:06 | External Medical Summary | Summary of Care ---
Author Name Unknown Organization [facility] Address [address] [place] [address] Phone [phone] Care Team Providers Care County Director Name Role Phone Lizz BUI MD, Efraín León Primary Care Provider [phone] Reason for Visit * Reason Onset Date Comments Referral 05/28/2023 Encounter Details Date Type Department Care Team (Late st Contact Info) Description 05/28/[address] [facility] 200 [place] [address] Efraín aZmudio III, MD 200 [place] [address] Referral Allergies Active Allergy Reactions Criticality Noted [...] until his appointment on 06/18/23. Please advise: [phone] * Telephone Encounter - Agata Bolden LPN [...] referral need to be placed into the [employer] system? Name of preferred specialist: n/a Type of specialist: General Surge Location of specialist: [facility] Phone #: n/a Specialist's Fax #: n/a Reason for visit: Lower Back Surg Date of visit: n/a documented in this encounter Plan of Treatment Upcoming Encounters Date Type Department Care Team (Late st Contact Info) Description 06/18/2023 12:20 PM EDT Office Visit Family Practice [facility] [place] [address] [facility] [place] [address] Efraín Zamudio III, MD 200 [facility] [place] [address] Scheduled Procedures Name Priority Associated Diagnoses Date/Ti [...] Documents on File Type Date Recorded Patient Universal Worker Assisted Living Expl anation Advance Directives and Living Will 11/03/2008 ADVANCE DIRECTIVE / LIVING WILL Advance Directives and Living Will 11/03/2008 ADVANCE DIRECTIVE / LIVING WILL Power of Commercial Escrow Officer 11/03/2008 POWER OF A TTORNEY Power of Commercial Escrow Officer 11/03/2008 POWER OF A TTORNEY Power of Commercial Escrow Officer 11/03/2008 POWER OF A TTORNEY Care Teams County Director Relationship Specialty Start Date End Date Efraín Zamudio III, MD 200 [place] [address] PCP - General Family Medicine 06/24/21 documented as of this encounter
--- OUTSIDE RECORDS SUMMARY | 2023-08-31 21:07 | External Medical Summary | Summary of Care ---
Author Name Unknown Organization [facility] Address [address] [place] [address] Phone [phone] Care Team Providers Care Cream Gatherer Name Role Phone Lizz BUI MD, Efraín León Primary Care Provider [phone] Reason for Referral * Evaluate & Treat - Unlimited Visits (Within 30 days (routine)) - Pending Review Specialty Diagnoses / Procedures Referred By Toshia marino Referred To Contact Neuro/Ortho Surgery - Spine. / Neurological Surgery Diagnoses Pars defect with spondylolisthesis Spinal stenosis of lumbar region without neurogenic claudication History of lumbar laminectomy for spinal cord decompression Fam Gates DO [address] [place] [address] Referral ID Status Reason Start Date Expiration Date Visits Requested Visits Authorized [id number] Pending Review Specialty Services Required 05/11/[phone] Question Answer Referral Priority Within 30 days (routine) Where should this appointment be scheduled? [facility] spine region: Back - Thoracic/Lumbar Do you have any recent complete loss of bladder or bowel function? No Reason for Visit * Reason Onset Date Comments Test Results 05/10/2023 Encounter Details Date Type Department Care Team (Late st Contact Info) Description 05/10/2023 Telephone Laboratory, [place] [address] [place] [address] Efraín Zamudio III, MD [address] [place] [address] Test Results Allergies Active Allergy Reactions Criticality [...] as of this encounter (statuses as of 05/14/2023) Medications Medication Sig Dispensed Refills Start Date [...] at bedtime. 90 Tablet 1 01/12/2023 Active LORazepam 0.5 MG Oral Tablet (Ativan) Take 1 Tablet by mouth every 8 hours as needed for Anxiety. 21 Tablet 0 01/12/2023 Active Rizatriptan Benzoate 10 MG Oral [...] the day. 30 Capsule 11 05/08/2023 Active Ibuprofen 600 MG Oral Tablet (Motrin) Take 1 Tablet by mouth every 8 hours as needed (Headache). 24 Tablet 0 05/09/2023 Active documented as of this encounter (statuses as of 05/14/2023) Active Problems Problem Noted Date Diagnosed Date [...] as of this encounter (statuses as of 05/14/2023) Resolved Problems Problem Noted Date Diagnosed Date [...] as of this encounter (statuses as of 05/14/2023) Immunizations Name Administration Dates Next Due COVID-19 [...] encounter Miscellaneous Notes * Telephone Encounter - Fam Gates DO - 05/14/2023 5:23 PM EST Plase call: Best ortho spinal surgeon: I would recommend Dr. Rush in [place], or Dr. Us in [place]. Fam Gates DO * Telephone Encounter - Puja Mckeon LPN - 05/14/2023 10:42 AM EST Called pt. Informed of message. He verbalized understanding. He won't be able to see previous surgeon, he is in [place]. He would like who the best spinal surgeon within the [facility] network would be? * Addendum Note - Fam Gates DO - 05/11/2023 8:31 AM ESTAddended by: FAM GATES on: 05/11/2023 08:31 AM Modules accepted: Orders * Telephone Encounter - Fam Gates DO - 05/11/2023 8:19 AM EST Please call patient. Several abnormalities of lumbar spine around old surgical site. Should see spinal surgeon. If it ispossible to see his prior spinal surgeon who did his surgery that would be ideal. * Telephone Encounter - Serena Fontenot OSA - 05/10/2023 4:11 PM EST Hello- The radiologist discovered an unexpected or indeterminate finding on Dann Carcamo ([id number]) and asks that you review the following report. Study Type: MRI L SPINE WO CONTRAST Date of Study: 05/10/2023 IMPRESSION 1. Multilevel, multifactorial degenerative changes [...] Postsurgical changes of posterior decompression at L4-L5. Please respond to this encounter to acknowledge receipt of this message and take responsibility to ensure this report is reviewed. Thank you, TONIE Winter Client Service [facility] documented in this encounter Plan of Treatment Upcoming Encounters Date Type Department Care Team (Late st Contact Info) Description 06/18/2023 12:20 PM EDT Office Visit Family Practice [facility] 200 [facility] [place] [address] Efraín Zamudio III, MD 200 [facility] [place] [address] Scheduled Procedures Name Priority Associated Diagnoses Date/Ti me COLONOSCOPY FLEXIBLE PROXIMAL DIAGNOSTIC Recall History of colon polyps Scheduled Referrals Name Type Priority Associated Diagnoses Orde r Schedule SPINE SURGERY REFERRAL OP Referral Within 30 days (routine) Pars defect with spondylolisthesis Spinal stenosis of lumbar region without neurogenic claudication History of lumbar laminectomy for spinal cord decompression Ordered: 05/11/2023 Health Maintenance Due Date Last Done Comments [...] as of this encounter Visit Diagnoses Diagnosis Pars defect with spondylolisthesis- Primary Spinal stenosis of lumbar region without neurogenic claudication Spinal stenosis, lumbar region, without neurogenic claudication History of lumbar laminectomy for spinal cord decompression Other postprocedural status documented in this encounter Advance Directives Documents on File Type Date Recorded 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 Operator 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
--- OUTSIDE RECORDS SUMMARY | 2023-08-31 21:07 | External Medical Summary | Summary of Care ---
Author Name Unknown Organization [facility] Address [address] [place] [address] Phone [phone] Care Team Providers Care Bullet Swaging Machine Adjuster Name Role Phone Lizz BUI MD, Didier León Primary Care Provider [phone] Reason for Visit * Reason Onset Date Comments Medication Refill 05/21/2023 Encounter Details Date Type Department Care Team (Late st Contact Info) Description 05/21/[address] [facility] 200 [place] [address] Didier Huff III, MD 200 [place] [address] Allergies Active Allergy Reactions Criticality Noted Date [...] as of this encounter (statuses as of 05/22/2023) Medications Medication Sig Dispensed Refills Start Date [...] needed (Headache). 24 Tablet 1 05/22/2023 Active Ibuprofen 600 MG Oral Tablet (Motrin) Take 1 Tablet by mouth every 8 hours as needed (Headache). 24 Tablet 0 05/15/2023 Discontinue d(Refill) documented as of this encounter (statuses as of 05/22/2023) Active Problems Problem Noted Date Diagnosed Date [...] as of this encounter (statuses as of 05/22/2023) Resolved Problems Problem Noted Date Diagnosed Date [...] as of this encounter (statuses as of 05/22/2023) Immunizations Name Administration Dates Next Due COVID-19 [...] encounter Miscellaneous Notes * Telephone Encounter - Candi Cabello RP - 05/22/2023 11:47 AM EST Signed Prescriptions: Disp Refills Ibuprofen 600 MG Oral Tablet (Motrin) 24 Tab*1 Sig: Take 1 Tablet by mouth every 8 hours as needed (Headache). Authorizing Provider: DIDIER HUFF III Ordering User: CANDI CABELLO * Telephone Encounter - Maury Gomez, consulting services project manager - 05/21/2023 5:00 PM EST Did you pend patient's preferred pharmacy and medication before forwarding?yes Pharmacy: [facility] [place] Pending Prescriptions: Disp Refills Ibuprofen 600 MG Oral Tablet (Motrin) 24 Tab*0 Sig: Take 1 Tablet by mouth every 8 hours as needed (Headache). Last Visit: 03/14/2023 (in office), 07/15/2019 (telemedicine) Next Visit: 05/25/2023 If no future appointments scheduled, and last appointment is greater than a year ago, please schedule patient for a follow-up appointment Last date the medication was ordered: 05/15/2023 Is this request for a controlled substance?No [...] Care Team (Late st Contact Info) Description 05/25/2023 10:40 AM EST Telemedicine Family Practice [place] [address] [place] [address] [place] IIIDidier MD [address] [place] [address] 06/18/2023 12:20 PM EDT Office Visit Family Practice [place] 200 [facility] [place] [address] Didier Huff III, MD 200 [facility] [place] [address] Scheduled Procedures Name Priority Associated Diagnoses Date/Ti [...] Documents on File Type Date Recorded Patient Merchandise Deliverer Expl anation Advance Directives and Living Will 11/03/2008 ADVANCE DIRECTIVE / LIVING WILL Advance Directives and Living Will 11/03/2008 ADVANCE DIRECTIVE / LIVING WILL Power of Wind Project Manager 11/03/2008 POWER OF A TTORNEY Power of Wind Project Manager 11/03/2008 POWER OF A TTORNEY Power of Wind Project Manager 11/03/2008 POWER OF A TTORNEY Care Teams Bullet Swaging Machine Adjuster Relationship Specialty Start Date End Date Didier Huff III, MD 200 [place] [address] PCP - General Family Medicine 06/24/21 documented as of this encounter
--- OUTSIDE RECORDS SUMMARY | 2023-08-31 21:07 | External Medical Summary | Summary of Care ---
Author Name Unknown Organization [facility] Address [address] [place] [address] Phone [phone] Care Team Providers Care Ancient Art Curator Name Role Phone Lizz BUI MD, Efraín León Primary Care Provider [phone] Reason for Visit * Reason Onset Date Comments Advice 05/14/2023 Is water therapy safe? Encounter Details Date Type Department Care Team (Late st Contact Info) Description 05/14/2023 Telephone Family Practice [facility] 200 [facility] [place] [address] Efraín Zamudio III, MD 200 [place] [address] Advice (Is water therapy safe?) Allergies Active Allergy Reactions Criticality Noted Date [...] as of this encounter (statuses as of 05/15/2023) Medications Medication Sig Dispensed Refills Start Date [...] polyneuropathy associated with type 2 diabetes mellitus ([facility]) Test five times daily for use with multiple daily insulin injections-befor e all meals, snacks, exercise, and one to two times during the night. Dx: E11.9 200 Strip 11 04/09/2023 Active OneTouch UltraSoft LancetsIndications:Di abetic polyneuropathy associated with type 2 diabetes mellitus ([facility]) Use as directed 5 times daily 200 [...] as of this encounter (statuses as of 05/15/2023) Active Problems Problem Noted Date Diagnosed Date [...] as of this encounter (statuses as of 05/15/2023) Resolved Problems Problem Noted Date Diagnosed Date [...] 06/24/200804/21 Overview: Per HTN Taxonomy. Mixed dyslipidemia 06/24/200803/10/200 9 Overview: Per Lipid Taxonomy. documented as of this encounter (statuses as of 05/15/2023) Immunizations Name Administration Dates Next Due COVID-19 [...] Telephone Encounter - Nina Cunningham RN - 05/15/2023 3:16 PM EST Pt aware of below. * Telephone Encounter - Corey Galvan DO - 05/14/2023 5:00 PM EST Yes, I think water therapy is safe for him * Telephone Encounter - Efraín Perez OSA - 05/14/2023 4:28 PM EST Patient is set for water therapy on . Recent mri shows serious problems with his back. Will it be safe to do the water therapy, for his legs, with the current back issues? documented in this encounter Plan of Treatment Upcoming Encounters Date Type Department Care Team (Late st Contact Info) Description 06/18/2023 12:20 PM EDT Office Visit Family [facility] [place] [address] [place] [address] LizzEfraín almodovar III, MD [address] [place] [address] Scheduled Procedures Name Priority Associated Diagnoses Date/Ti [...] on File Type Date Recorded Patient Director Credit Risk Expl anation Advance Directives and Living Will 11/03/2008 ADVANCE DIRECTIVE / LIVING WILL Advance Directives and Living Will 11/03/2008 ADVANCE DIRECTIVE / LIVING WILL Power of Boxing Promoter 11/03/2008 POWER OF A TTORNEY Power of Boxing Promoter 11/03/2008 POWER OF A TTORNEY Power of Boxing Promoter 11/03/2008 POWER OF A TTORNEY Care Teams Ancient Art Curator Relationship Specialty Start Date End Date Efraín Zamudio III, MD [address] [place] [address] PCP - General Family Medicine 06/24/21 documented as of this encounter
--- OUTSIDE RECORDS SUMMARY | 2023-08-31 21:07 | External Medical Summary | Summary of Care ---
Author Name Unknown Organization [facility] Address [address] [place] [address] Phone [phone] Care Team Providers Care Repair Technician Name Role Phone Lizz BUI MD, Efraín León Primary Care Provider [phone] Reason for Visit * Reason Onset Date Comments Advice 02/16/2023 Encounter Details Date Type Department Care Team (Late st Contact Info) Description 02/16/2023 Telephone Family Practice [facility] 200 [facility] [place] [address] Efraín Zamudio III, MD 200 [place] [address] Advice Allergies Active Allergy Reactions Criticality Noted [...] as of this encounter (statuses as of 05/18/2023) Medications Medication Sig Dispensed Refills Start Date [...] as of this encounter (statuses as of 05/18/2023) Active Problems Problem Noted Date Diagnosed Date [...] as of this encounter (statuses as of 05/18/2023) Resolved Problems Problem Noted Date Diagnosed Date [...] as of this encounter (statuses as of 05/18/2023) Immunizations Name Administration Dates Next Due COVID-19 [...] Telephone Encounter - Madeline Ernandez LPN - 02/16/2023 4:06 PM EST Patient called. Informed of message. Verbalized understanding. Said he will start PT in February. * Telephone Encounter - Liya Gates DO - 02/16/2023 3:47 PM EST MRIs are expensive tests and therefore we need to jump through a lot of hoops for [facility]. The basic ones are you need to do at least 1 month of physical therapy- that usually does help and over 95% of people feel better. If you don't you need to schedule a visit in person (after 1 month of PT) for us to document a full neurological exam, what you have tried so far etc, if PT hasn't worked, then we can consider ordering an MRI if it is indicated. It looks like Dr. Zamudio ordered therapy just recently- please give that a try first. Need to do a minimum of 1 month PT Liya Gates DO * Telephone Encounter - Serenity Leon OSA - 02/16/2023 1:17 PM EST Roddy calling in and would like to have MRI ordered for him as his back is getting worse. His back issnapping and cracking and hurts. The cream he puts on helps little bit but for short time then discomfort comes back. Feels need the MRI to see what is going on with his back? Did have X-ray done few months ago. Was ordered day of his appt with Dr Zamudio 12-29. Please call and let him know if can order this and get it scheduled FLORIAN please and let him know day or time but not next Sunday please. documented in this encounter Plan of Treatment Upcoming Encounters Date Type Department Care Team (Late st Contact Info) Description 06/18/2023 12:20 PM EDT Office Visit Family Practice [place] [facility] [place] [address] Efraín Zamudio III, MD 200 [facility] [place] [address] Scheduled Procedures Name Priority Associated Diagnoses Date/Ti [...] Documents on File Type Date Recorded Patient Research And Insights Executive Expl anation Advance Directives and Living Will 11/03/2008 ADVANCE DIRECTIVE / LIVING WILL Advance Directives and Living Will 11/03/2008 ADVANCE DIRECTIVE / LIVING WILL Power of Building Drafting Officer 11/03/2008 POWER OF A TTORNEY Power of Building Drafting Officer 11/03/2008 POWER OF A TTORNEY Power of Building Drafting Officer 11/03/2008 POWER OF A TTORNEY Care Teams Repair Technician Relationship Specialty Start Date End Date Efraín Zamudio III, MD 200 [facility] [place] [address] PCP - General Family Medicine 06/24/21 documented as of this encounter
--- OUTSIDE RECORDS SUMMARY | 2023-08-31 21:07 | External Medical Summary | Summary of Care ---
Author Name Unknown Organization [facility] Address [address] [place] [address] Phone [phone] Care Team Providers Care Saw Man Name Role Phone Lizz BUI MD, Efraín León Primary Care Provider [phone] Reason for Referral * Evaluate & Treat - Unlimited Visits (Within 30 days (routine)) - Pending Review Specialty Diagnoses / Procedures Referred By Toshia marino Referred To Contact Neuro/Ortho Surgery - Spine. / Neurological Surgery Diagnoses Pars defect with spondylolisthesis Spinal stenosis of lumbar region without neurogenic claudication History of lumbar laminectomy for spinal cord decompression Fam Gates DO [address] [place] [address] Referral ID Status Reason Start Date Expiration Date Visits Requested Visits Authorized [id number] Pending Review Specialty Services Required 05/11/2023 999 [...] st Contact Info) Description 05/10/2023 Telephone Laboratory, [place] [address] [place] [address] Efraín Zamudio III, MD [address] [place] [address] Test Results Allergies Active Allergy Reactions Criticality [...] for Anxiety. 21 Tablet 0 01/12/2023 4 Discontinue d(Refill) Ibuprofen 600 MG Oral Tablet (Motrin) Take 1 Tablet by mouth every 8 hours as needed (Headache). 24 Tablet 0 05/09/2023 4 Discontinue d(Refill) documented as of this [...] encounter Miscellaneous Notes * Telephone Encounter - Izabel River LPN - 05/14/2023 6:03 PM EST Patient called and made aware of recommendations for spinal surgeons. Please call & assist withscheduling patient. * Telephone Encounter - Fam Gates DO - 05/14/2023 5:23 PM EST Plase call: Best ortho spinal surgeon: I would recommend Dr. Rush in [place], or Dr. Us in [place]. Fam Gates DO * Telephone Encounter - Puja Mckeon LPN - 05/14/2023 10:42 AM EST Called pt. Informed of message. He verbalized understanding. He won't be able to see previous surgeon, he is in [place]. He would like who the best spinal surgeon within the [facility] network would be? * Addendum Note [...] unexpected or indeterminate finding on Dann Carcamo ([id number]) and asks that you review the following [...] reviewed. Thank you, TONIE Winter Client Service [facility] [place] documented in this encounter Plan of Treatment Upcoming Encounters Date Type Department Care Team (Late st Contact Info) Description 06/18/2023 12:20 PM EDT Office Visit [facility] 200 [facility] [place] [address] Efraín Zamudio III, MD 200 [facility] [place] [address] Scheduled Procedures Name Priority Associated Diagnoses Date/Ti [...] Documents on File Type Date Recorded Patient Precision Lens Grinder Apprentice Expl anation Advance Directives and Living Will 11/03/2008 ADVANCE DIRECTIVE / LIVING WILL Advance Directives and Living Will 11/03/2008 ADVANCE DIRECTIVE / LIVING WILL Power of Rn Integrated 11/03/2008 POWER OF A TTORNEY Power of Rn Integrated 11/03/2008 POWER OF A TTORNEY Power of Rn Integrated 11/03/2008 POWER OF A TTORNEY Care Teams Saw Man Relationship Specialty Start Date End Date Efraín Zamudio III, MD 200 [place] [address] PCP - General Family Medicine 06/24/21 documented as of this encounter
--- OUTSIDE RECORDS SUMMARY | 2023-08-31 21:07 | External Medical Summary | Summary of Care ---
Author Name Unknown Organization [facility] Address [address] [place] [address] Phone [phone] Care Team Providers Care Mold Sprayer Name Role Phone Lizz BIU MD, Efraín León Primary Care Provider [phone] Reason for Visit * Reason Onset Date Comments Advice 05/10/2023 Encounter Details Date Type Department Care Team (Late st Contact Info) Description 05/10/2023 Telephone Family Practice [facility] 200 [facility] [place] [address] Efraín Zamudio III, MD 200 [place] [address] Advice Allergies Active Allergy Reactions Criticality Noted [...] the day. 30 Capsule 11 05/08/2023 Active documented as of this encounter (statuses [...] encounter Miscellaneous Notes * Telephone Encounter - Milyl Cain OSA - 05/18/2023 2:01 PM EST See other Encounter * Telephone Encounter - Janna Dawn LPN - 05/10/2023 12:40 PM EST Patient will need an office visit to discuss further. Last visit was in February and there's no mention of arm/shoulder issues. Please schedule him early enough in the day so that he can get X-rays while in the clinic since transportation is an issue for him. * Telephone Encounter - Cesar Ba OSA - 05/10/2023 10:34 AM EST Pt stopped at my desk to check-in for his MRI here at [facility], he requested XRs of his shoulderand hand. No active requests that I could find for these. Told pt I would send a message to his PCPoffice, please contact pt when he can get these XRs completed or [facility]. documented in this encounter Plan of Treatment Upcoming Encounters Date Type Department Care Team (Late st Contact Info) Description 06/18/2023 12:20 PM EDT Office Visit Family Practice [place] [address] [place] [address] Efraín Zamudio III, MD [address] [place] [address] Scheduled Procedures Name Priority Associated Diagnoses Date/Ti [...] Documents on File Type Date Recorded Patient Primer Supervisor Expl anation Advance Directives and Living Will 11/03/2008 ADVANCE DIRECTIVE / LIVING WILL Advance Directives and Living Will 11/03/2008 ADVANCE DIRECTIVE / LIVING WILL Power of Press Operator [place] 11/03/2008 POWER OF A TTORNEY Power of Press Operator [place] 11/03/2008 POWER OF A TTORNEY Power of Press Operator [place] 11/03/2008 POWER OF A TTORNEY Care Teams Mold Sprayer Relationship Specialty Start Date End Date Efraín Zamudio III, MD 200 [place] [address] PCP - General Family Medicine 06/24/21 documented as of this encounter
--- OUTSIDE RECORDS SUMMARY | 2023-08-31 21:07 | External Medical Summary | Summary of Care ---
Author Name Unknown Organization [facility] Address [address] [place] [address] Phone [phone] Care Team Providers Care Program Director/Morning Show Host Name Role Phone Lizz BUI MD, Efraín León Primary Care Provider [phone] Reason for Referral * Evaluate & Treat - Unlimited Visits (Within 30 days (routine)) - Pending Review Specialty Diagnoses / Procedures Referred By Toshia marino Referred To Contact Neuro/Ortho Surgery - Spine. / Neurological Surgery Diagnoses Pars defect with spondylolisthesis Spinal stenosis of lumbar region without neurogenic claudication History of lumbar laminectomy for spinal cord decompression Fam Gates DO [address] [place] [address] Referral ID Status Reason Start Date Expiration Date Visits Requested Visits Authorized [id number] Pending Review Specialty Services Required 05/11/2023 999 [...] st Contact Info) Description 05/10/2023 Telephone Laboratory, [place] [address] [place] [address] Efraín Zamudio III, MD [address] [place] [address] Test Results Allergies Active Allergy Reactions Criticality [...] - 05/14/2023 5:23 PM EST Plase call: [facility] ortho spinal surgeon: I would recommend Dr. Rush in [place], or Dr. Us in [place]. Fam Gates DO * Telephone Encounter - Puja Mckeon LPN - 05/14/2023 10:42 AM EST Called pt. Informed of message. He verbalized understanding. He won't be able to see previous surgeon, he is in [place]. He would like who the best spinal surgeon within the [facility] network would be? * Addendum Note - [...] unexpected or indeterminate finding on Dann Carcamo ([id number]) and asks that you review the following [...] reviewed. Thank you, TONIE Winter Client Service Rep [facility] documented in this encounter Plan of Treatment Upcoming Encounters Date Type Department Care Team (Late st Contact Info) Description 06/18/2023 12:20 PM EDT Office Visit Family Practice [facility] 200 [facility] [place] [address] Efraín Zamudio III, MD 200 [facility] [place] [address] Scheduled Procedures Name Priority Associated Diagnoses Date/Ti [...] 0407/2022, 04/14/2021, Additional history exists Albumin/Creatinine Ratio 07/12/20232 [...] on File Type Date Recorded Patient Test Engine Evaluator Expl anation Advance Directives and Living Will 11/03/2008 ADVANCE DIRECTIVE / LIVING WILL Advance Directives and Living Will 11/03/2008 ADVANCE DIRECTIVE / LIVING WILL Power of Aquaculture Program Director 11/03/2008 POWER OF A TTORNEY Power of Aquaculture Program Director 11/03/2008 POWER OF A TTORNEY Power of Aquaculture Program Director 11/03/2008 POWER OF A TTORNEY Care Teams Program Director/Morning Show Host Relationship Specialty Start Date End Date Efraín Zamudio III, MD [address] [place] [address] PCP - General Family Medicine 06/24/21 documented as of this encounter
--- OUTSIDE RECORDS SUMMARY | 2023-08-31 21:07 | External Medical Summary | Summary of Care ---
Author Name Unknown Organization [facility] Address [address] [place] [address] Phone [phone] Care Team Providers Care Education Coordinator Name Role Phone Lizz BUI MD, Efraín León Primary Care Provider [phone] Reason for Referral * Evaluate & Treat - Unlimited Visits (Within 30 days (routine)) - Pending Review Specialty Diagnoses / Procedures Referred By Toshia marino Referred To Contact Neuro/Ortho Surgery - Spine. / Neurological Surgery Diagnoses Pars defect with spondylolisthesis Spinal stenosis of lumbar region without neurogenic claudication History of lumbar laminectomy for spinal cord decompression Fam Gates DO [address] [place] [address] Referral ID Status Reason Start Date Expiration Date Visits Requested Visits Authorized [id number] Pending Review Specialty Services Required 05/11/2023 999 [...] st Contact Info) Description 05/10/2023 Telephone Laboratory, [place] [address] [place] [address] Efraín Zamudio III, MD [address] [place] [address] Test Results Allergies Active Allergy Reactions Criticality [...] to see previous surgeon, he is in [place]. He would like who the best spinal surgeon within the [facility] network would be? * Addendum Note [...] unexpected or indeterminate finding on Dann Carcamo ([id number]) and asks that you review the following [...] Thank you, TONIE Winter Client Service Rep [facility] [place] documented in this encounter Plan of Treatment Upcoming Encounters Date Type Department Care Team (Late st Contact Info) Description 06/18/2023 12:20 PM EDT Office Visit [facility] [place] 200 [facility] [place] [address] Lizz III, Efraín León MD 200 [facility] [place] [address] Scheduled Procedures Name Priority Associated Diagnoses Date/Ti [...] Documents on File Type Date Recorded Patient Social Media Campaign Manager Expl anation Advance Directives and Living Will 11/03/2008 ADVANCE DIRECTIVE / LIVING WILL Advance Directives and Living Will 11/03/2008 ADVANCE DIRECTIVE / LIVING WILL Power of Trailer Park Manager 11/03/2008 POWER OF A TTORNEY Power of Trailer Park Manager 11/03/2008 POWER OF A TTORNEY Power of Trailer Park Manager 11/03/2008 POWER OF A TTORNEY Care Teams Education Coordinator Relationship Specialty Start Date End Date Efraín Zamudio III, MD [address] [place] [address] PCP - General Family Medicine 06/24/21 documented as of this encounter
--- OUTSIDE RECORDS SUMMARY | 2023-08-31 21:07 | External Medical Summary | Summary of Care ---
Author Name Unknown Organization [facility] Address [address] [place] [address] Phone [phone] Care Team Providers Care Pan Shover Name Role Phone Lizz BUI MD, Efraín León Primary Care Provider [phone] Reason for Visit * Reason Onset Date Comments Advice 05/15/2023 Encounter Details Date Type Department Care Team (Late st Contact Info) Description 05/15/2023 Telephone Family Practice [facility] 200 [facility] [place] [address] Efraín Zamudio III, MD 200 [place] [address] Advice Allergies Active Allergy Reactions Criticality Noted [...] as of this encounter (statuses as of 05/16/2023) Medications Medication Sig Dispensed Refills Start Date [...] as needed (Headache). 24 Tablet 0 05/15/2023 Active LORazepam 0.5 MG Oral Tablet (Ativan) Take 1 Tablet by mouth every 8 hours as needed for Anxiety. 21 Tablet 0 05/15/2023 Active LORazepam 0.5 MG Oral Tablet (Ativan) Take 1 Tablet by mouth every 8 hours as needed for Anxiety. 21 Tablet 0 01/12/2023 4 Discontinue d(Refill) Ibuprofen 600 MG Oral Tablet (Motrin) Take 1 Tablet by mouth every 8 hours as needed (Headache). 24 Tablet 0 05/09/2023 4 Discontinue d(Refill) documented as of this encounter (statuses as of 05/16/2023) Active Problems Problem Noted Date Diagnosed Date [...] as of this encounter (statuses as of 05/16/2023) Resolved Problems Problem Noted Date Diagnosed Date [...] as of this encounter (statuses as of 05/16/2023) Immunizations Name Administration Dates Next Due COVID-19 [...] Miscellaneous Notes * Telephone Encounter - Ewa Martins CPhT - 05/16/2023 8:29 AM EST Pt calling to check status of med request, sent Thank you, Ewa Martins CPhT Manager [facility] telepharmacy) 05/16/2023,8:29 AM * Telephone Encounter - Rossy Lopes OSA - 05/15/2023 4:18 PM EST Patient asking for office to call him when scripts have been sent so he can make arrangements for them to be picked up * Telephone Encounter - Anuradha Serrano OSA - 05/15/2023 4:09 PM EST Patient is calling back to check on medications advised of notes * Telephone Encounter - Nina Cunningham RN - 05/15/2023 1:53 PM EST Meds are still pending. * Telephone Encounter - Nina Cunningham RN - 05/15/2023 1:53 PM EST Left message for pt to call back. Please inform of message below * Telephone Encounter - Anika Cheek OSA - 05/15/2023 1:49 PM EST Please call to confirm if ibuprofen was sent to [facility] in [place]. He wants to make sure itis being sent to the right pharmacy because they didn't get it. * Telephone Encounter - Cielo Harris OSA - 05/15/2023 9:48 AM EST Please refill patients Ibuprofen 600 MG Oral Tablet (Motrin) and LORazepam 0.5 MG Oral Tablet (Ativan) as he is supposed to have back surgery for the 6th time and he is very anxious. documented in this encounter Plan of Treatment Upcoming Encounters Date Type Department Care Team (Late st Contact Info) Description 06/18/2023 12:20 PM EDT Office Visit Family Practice [facility] [place] [address] [place] [address] [place] Efraín BUI MD [address] [place] [address] [address] Scheduled Procedures Name Priority Associated Diagnoses Date/Ti [...] 2) 08/23/2022 06/28/2022, 11/24 HbA1c 06/30/2023 12/29/2022, 040 07/2022, 04/14/2021, Additional history exists Albumin/Creatinine Ratio [...] Documents on File Type Date Recorded Patient Web Services Architect Expl anation Advance Directives and Living Will 11/03/2008 ADVANCE DIRECTIVE / LIVING WILL Advance Directives and Living Will 11/03/2008 ADVANCE DIRECTIVE / LIVING WILL Power of Spanish Language Lecturer 11/03/2008 POWER OF A TTORNEY Power of Spanish Language Lecturer 11/03/2008 POWER OF A TTORNEY Power of Spanish Language Lecturer 11/03/2008 POWER OF A TTORNEY Care Teams Pan Shover Relationship Specialty Start Date End Date Efraín Zamudio III, MD 200 [facility] [place] [address] PCP - General Family Medicine 06/24/21 documented as of this encounter
--- OUTSIDE RECORDS SUMMARY | 2023-08-31 21:07 | External Medical Summary | Summary of Care ---
Author Name Unknown Organization [facility] Address [address] [place] [address] Phone [phone] Care Team Providers Care Clinical Rehab Specialist Name Role Phone Lizz BUI MD, Efraín León Primary Care Provider [phone] Reason for Referral * Evaluate & Treat - Unlimited Visits (Within 30 days (routine)) - Pending Review Specialty Diagnoses / Procedures Referred By Toshia marino Referred To Contact Neuro/Ortho Surgery - Spine. / Neurological Surgery Diagnoses Pars defect with spondylolisthesis Spinal stenosis of lumbar region without neurogenic claudication History of lumbar laminectomy for spinal cord decompression Fam Gates DO [address] [place] [address] Referral ID Status Reason Start Date Expiration Date Visits Requested Visits Authorized [id number] Pending Review Specialty Services Required 05/11/2023 999 [...] st Contact Info) Description 05/10/2023 Telephone Laboratory, [place] [address] [place] [address] Efraín Zamudio III, MD [address] [place] [address] Test Results Allergies Active Allergy Reactions Criticality [...] as of this encounter (statuses as of 05/11/2023) Medications Medication Sig Dispensed Refills Start Date [...] as of this encounter (statuses as of 05/11/2023) Active Problems Problem Noted Date Diagnosed Date [...] as of this encounter (statuses as of 05/11/2023) Resolved Problems Problem Noted Date Diagnosed Date [...] as of this encounter (statuses as of 05/11/2023) Immunizations Name Administration Dates Next Due COVID-19 [...] Date Smoking Tobacco: Former Cigarettes 0.3 33 Q uit: 09/19/2016 Smokeless Tobacco: Never Alcohol Use Standard [...] encounter Miscellaneous Notes * Addendum Note - Fam Gates DO [...] unexpected or indeterminate finding on Dann Carcamo ([id number]) and asks that you review the following [...] Thank you, TONIE Winter Client Service Rep [facility] documented in this encounter Plan of Treatment Upcoming Encounters Date Type Department Care Team (Late st Contact Info) Description 06/18/2023 12:20 PM EDT Office Visit Family Practice [facility] 200 [facility] [place] [address] Efraín Zamudio III, MD 200 [facility] [place] [address] 09/20/2023 9:00 AM EDT Office Visit Ophthalmology, [facility] [address] [facility] [place] [address] Francis Turner DO [address] [address] Scheduled Procedures Name Priority Associated Diagnoses Date/Ti [...] Documents on File Type Date Recorded Patient Hide Salter Expl anation Advance Directives and Living Will 11/03/2008 ADVANCE DIRECTIVE / LIVING WILL Advance Directives and Living Will 11/03/2008 ADVANCE DIRECTIVE / LIVING WILL Power of Surface Mount Technology Operator 11/03/2008 POWER OF A TTORNEY Power of Surface Mount Technology Operator 11/03/2008 POWER OF A TTORNEY Power of Surface Mount Technology Operator 11/03/2008 POWER OF A TTORNEY Care Teams Clinical Rehab Specialist Relationship Specialty Start Date End Date Efraín Zamudio III, MD [address] [place] [address] PCP - General Family Medicine 06/24/21 documented as of this encounter
--- OUTSIDE RECORDS SUMMARY | 2023-08-31 21:07 | External Medical Summary | Summary of Care ---
Author Name Unknown Organization [facility] Address [address] [place] [address] Phone [phone] Care Team Providers Care Intranet Specialist Name Role Phone Lizz BUI MD, Efraín León Primary Care Provider [phone] Reason for Visit * Reason Onset Date Comments Advice 05/10/2023 Encounter Details Date Type Department Care Team (Late st Contact Info) Description 05/10/2023 Telephone Family Practice [facility] 200 [facility] [place] [address] Efraín Zamudio III, MD 200 [place] [address] Advice Allergies Active Allergy Reactions Criticality Noted [...] to check-in for his MRI here at [facility], he requested XRs of his shoulderand hand. No active requests that I could find for these. Told pt I would send a message to his PCPoffice, please contact pt when he can get these XRs completed or if anything further is needed frommdm in the meantime. documented in this encounter Plan of Treatment Upcoming Encounters Date Type Department Care Team (Late st Contact Info) Description 06/18/2023 12:20 PM EDT Office Visit Family Practice [facility] [address] [place] [address] [address] Efraín Zamudio III, MD [address] [place] [address] Scheduled Procedures Name Priority Associated Diagnoses Date/Ti [...] Documents on File Type Date Recorded Patient Biofuels Manager Expl anation Advance Directives and Living Will 11/03/2008 ADVANCE DIRECTIVE / LIVING WILL Advance Directives and Living Will 11/03/2008 ADVANCE DIRECTIVE / LIVING WILL Power of Slope Runner 11/03/2008 POWER OF A TTORNEY Power of Slope Runner 11/03/2008 POWER OF A TTORNEY Power of Slope Runner 11/03/2008 POWER OF A TTORNEY Care Teams Intranet Specialist Relationship Specialty Start Date End Date fEraín Zamudio III, MD [address] [place] [address] PCP - General Family Medicine 06/24/21 documented as of this encounter
--- OUTSIDE RECORDS SUMMARY | 2023-08-31 21:08 | External Medical Summary | Summary of Care ---
Author Name Unknown Organization [facility] Address [address] [place] [address] Phone [phone] Care Team Providers Care Manager Talent Management Name Role Phone Lizz BUI MD, Efraín León Primary Care Provider [phone] Reason for Visit * Reason Onset Date Comments Test Results 05/10/2023 Encounter Details Date Type Department Care Team (Late st Contact Info) Description 05/10/2023 Telephone Laboratory, [place] [address] [place] [address] Efraín Zamudio III, MD [address] [place] [address] Test Results Allergies Active Allergy Reactions Criticality [...] as of this encounter (statuses as of 05/10/2023) Medications Medication Sig Dispensed Refills Start Date [...] as of this encounter (statuses as of 05/10/2023) Active Problems Problem Noted Date Diagnosed Date [...] as of this encounter (statuses as of 05/10/2023) Resolved Problems Problem Noted Date Diagnosed Date [...] as of this encounter (statuses as of 05/10/2023) Immunizations Name Administration Dates Next Due COVID-19 [...] encounter Miscellaneous Notes * Telephone Encounter - Serena Fontenot OSA - 05/10/2023 4:11 PM EST Hello- The radiologist discovered an unexpected or indeterminate finding on Dann Carcamo ([id number]) and asks that you review the following [...] TONIE Winter Client Service Rep [facility] documented in this encounter Plan of Treatment Upcoming Encounters Date Type Department Care Team (Late st Contact Info) Description 06/18/2023 12:20 PM EDT Office Visit Family Practice [place] [address] [place] [address] Lizz III, Efraín León MD 200 [facility] [place] [address] 09/20/2023 9:00 AM EDT Office Visit Ophthalmology, [facility] [address] [place] [address] Francis Turner, DO [address] [address] Scheduled Procedures Name Priority Associated Diagnoses Date/Ti [...] At-Risk Patients (6 to 64 Years) (4 - PPSV23 or PCV20) 08/02/2027 07/13/2021, 01/09/2020, [...] Documents on File Type Date Recorded Patient Residential Manager Expl anation Advance Directives and Living Will 11/03/2008 ADVANCE DIRECTIVE / LIVING WILL Advance Directives and Living Will 11/03/2008 ADVANCE DIRECTIVE / LIVING WILL Power of Supervisor Roller Shop 11/03/2008 POWER OF A TTORNEY Power of Supervisor Roller Shop 11/03/2008 POWER OF A TTORNEY Power of Supervisor Roller Shop 11/03/2008 POWER OF A TTORNEY Care Teams Manager Talent Management Relationship Specialty Start Date End Date Efraín Zamudio III, MD 200 [place] [address] PCP - General Family Medicine 06/24/21 documented as of this encounter
--- OUTSIDE RECORDS SUMMARY | 2023-08-31 21:08 | External Medical Summary | Summary of Care ---
Author Name Unknown Organization [facility] Address [address] [place] [address] Phone [phone] Care Team Providers Care Clinical Molecular Geneticist Name Role Phone Lizz BUI MD, Efraín León Primary Care Provider [phone] Reason for Visit * Reason Onset Date Comments Advice 05/02/2023 Encounter Details Date Type Department Care Team (Late st Contact Info) Description 05/02/2023 Telephone Family Practice [facility] 200 [facility] [place] [address] Efraín Zamudio III, MD 200 [place] [address] Advice Allergies Active Allergy Reactions Criticality Noted [...] before bedtime. 90 Tablet 5 04/30/2023 Active Esomeprazole Magnesium 40 MG Oral Capsule Delayed Release (NexIUM) Take 1 Capsule by mouth in the morning. 1 hour before the first meal of the day. 30 Capsule 4 01/12/2023 4 Discontinue d(Refill) Ibuprofen 600 MG Oral Tablet (Motrin) Take 1 Tablet by mouth every 8 hours as needed (Headache). 24 Tablet 0 04/21/2023 4 Discontinue d(Medicatio n List Clean Up) Ibuprofen 600 MG Oral Tablet (Motrin) Take 1 Tablet by mouth every 8 hours as needed (Headache). 24 Tablet 0 04/21/2023 4 Discontinue d(Refill) Zolpidem Tartrate 10 MG Oral Tablet (Ambien) Take 1 Tablet by mouth at bedtime as needed for Sleep. 30 Tablet 0 04/30/2023 4 Discontinue d(Refill) documented as of this [...] with hypoxemia 04/20/2017 07/13/2021 Pulmonary embolism 03/12/2017 Poor venous access 11/21/2016 1 Encounter for [...] Telephone Encounter - Nina Cunningham RN - 05/10/2023 1:57 PM EST Called [facility] and was told pt has an appt on 05/17/23 at 11am for eval for hydrotherapy. [facility] phone [phone]. * Telephone Encounter - Raegan Meyer OSA - 05/04/2023 8:29 AM EST Patient calling in to check on the status of previous message. Patient Called after 48 hour timeframe and escalation e-mail was sent to clinic leadership. * Telephone Encounter - Kenrick Min OSA - 05/02/2023 7:53 AM EST Pt is calling as he is not getting any phone calls back from [facility] about getting him in for water therapy. He is asking if Dr. Zamudio might be able to do anything to get this jump started for him. He has called several times but either not answered or not called back. He may need another referral placed as well. Please call pt and let him know what might be done. States he can barely walk as his legs are so weak now. documented in this encounter Plan of Treatment Upcoming Encounters Date Type Department Care Team (Late st Contact Info) Description 06/18/2023 12:20 PM EDT Office Visit Family Practice [facility] [address] [place] [address] Efraín Zamudio III, MD [address] [place] [address] 09/20/2023 9:00 AM EDT Office Visit Ophthalmology, [facility] 132 [facility] [place] [address] Francis Turner DO [address] [facility] [place] [id number] Scheduled Procedures Name Priority Associated Diagnoses Date/Ti [...] Documents on File Type Date Recorded Patient Photostatic Copy Maker Expl anation Advance Directives and Living Will 11/03/2008 ADVANCE DIRECTIVE / LIVING WILL Advance Directives and Living Will 11/03/2008 ADVANCE DIRECTIVE / LIVING WILL Power of School Guidance Counselor 11/03/2008 POWER OF A TTORNEY Power of School Guidance Counselor 11/03/2008 POWER OF A TTORNEY Power of School Guidance Counselor 11/03/2008 POWER OF A TTORNEY Care Teams Clinical Molecular Geneticist Relationship Specialty Start Date End Date Efraín Zamudio III, MD [address] [place] [address] PCP - General Family Medicine 06/24/21 documented as of this encounter
--- OUTSIDE RECORDS SUMMARY | 2023-08-31 21:08 | External Medical Summary | Summary of Care ---
Author Name Unknown Organization [facility] Address [address] [place] [address] Phone [phone] Care Team Providers Care Aircraft Air Conditioning Mechanic Name Role Phone Lizz BUI MD, Efraín León Primary Care Provider [phone] Reason for Visit * Reason Onset Date Comments Test Results 05/10/2023 Encounter Details Date Type Department Care Team (Late st Contact Info) Description 05/10/2023 Telephone Laboratory, [place] [address] [place] [address] Efraín Zamudio III, MD 200 [place] [address] Test Results Allergies Active Allergy [...] unexpected or indeterminate finding on Dann Carcamo ([id number]) and asks that you review the following [...] TONIE Winter Client Service Rep [facility] [place] documented in this encounter Plan of Treatment Upcoming Encounters Date Type Department Care Team (Late st Contact Info) Description 06/18/2023 12:20 PM EDT Office Visit Family Practice [place] [address] [place] [address] Lizz III, Efraín León MD 200 [facility] [place] [address] 09/20/2023 9:00 AM EDT Office Visit Ophthalmology, [facility] [address] [place] [address] Francis Turner, DO [address] [address] Scheduled Procedures Name Priority Associated Diagnoses Date/Ti [...] Documents on File Type Date Recorded Patient Advertising Operations Coordinator Expl anation Advance Directives and Living Will 11/03/2008 ADVANCE DIRECTIVE / LIVING WILL Advance Directives and Living Will 11/03/2008 ADVANCE DIRECTIVE / LIVING WILL Power of Nurses Medical Assistants Phlebotomists 11/03/2008 POWER OF A TTORNEY Power of Nurses Medical Assistants Phlebotomists 11/03/2008 POWER OF A TTORNEY Power of Nurses Medical Assistants Phlebotomists 11/03/2008 POWER OF A TTORNEY Care Teams Aircraft Air Conditioning Mechanic Relationship Specialty Start Date End Date Efraín Zamudio III, MD 200 [place] [address] PCP - General Family Medicine 06/24/21 documented as of this encounter
--- OUTSIDE RECORDS SUMMARY | 2023-08-31 21:08 | External Medical Summary | Summary of Care ---
Author Name Unknown Organization [facility] Address [address] [place] [address] Phone [phone] Care Team Providers Care Registered Nurse Step Down Name Role Phone Lizz BUI MD, Efraín León Primary Care Provider [phone] Reason for Visit * Reason Onset Date Comments Advice 05/02/2023 Encounter Details Date Type Department Care Team (Late st Contact Info) Description 05/02/2023 Telephone Family Practice [facility] 200 [place] [address] Efraín Zamudio III, MD 200 [place] [address] Advice Allergies Active Allergy Reactions Criticality Noted [...] encounter Miscellaneous Notes * Telephone Encounter - Raegan Meyer OSA - 05/04/2023 8:29 AM EST Patient calling in to check on the status of previous message. Patient Called after 48 hour timeframe and escalation e-mail was sent to clinic leadership. * Telephone Encounter - Kenrick Min OSA - 05/02/2023 7:53 AM EST Pt is calling as he is not getting any phone calls back from [facility] about getting him in for water [...] 12:20 PM EDT Office Visit Family Practice [facility] [address] [facility] [place] [address] Efraín Zamudio III, MD [address] [facility] [place] [address] 09/20/2023 9:00 AM EDT Office Visit Ophthalmology, [facility] [address] [place] [address] Francis Turner, [address] [place] [address] Scheduled Procedures Name Priority Associated Diagnoses Date/Ti [...] ADVANCE DIRECTIVE / LIVING WILL Power of Barrel Scraper 11/03/2008 POWER OF A TTORNEY Power of Barrel Scraper 11/03/2008 POWER OF A TTORNEY Power of Barrel Scraper 11/03/2008 POWER OF A TTORNEY Care Teams Registered Nurse Step Down Relationship Specialty Start Date End Date Efraín Zamudio III, MD 200 [place] [address] PCP - General Family Medicine 06/24/21 documented as of this encounter
--- OUTSIDE RECORDS SUMMARY | 2023-08-31 21:08 | External Medical Summary | Summary of Care ---
Author Name Unknown Organization [facility] Address [address] [place] [address] Phone [phone] Care Team Providers Care Cloth Pattern Maker Name Role Phone Lizz BUI MD, Efraín León Primary Care Provider [phone] Reason for Visit * Reason Onset Date Comments Advice 05/02/2023 Encounter Details Date Type Department Care Team (Late st Contact Info) Description 05/02/2023 Telephone Family Practice [facility] 200 [place] [place] [address] Efraín Zamudio III, MD 200 [place] [address] Advice Allergies Active Allergy Reactions Criticality Noted [...] as of this encounter (statuses as of 05/09/2023) Medications Medication Sig Dispensed Refills Start Date [...] as of this encounter (statuses as of 05/09/2023) Active Problems Problem Noted Date Diagnosed Date [...] as of this encounter (statuses as of 05/09/2023) Resolved Problems Problem Noted Date Diagnosed Date [...] as of this encounter (statuses as of 05/09/2023) Immunizations Name Administration Dates Next Due COVID-19 [...] not getting any phone calls back from [facility] about getting him in for water [...] Team (Late st Contact Info) Description 05/10/2023 11:45 AM EST Imaging Radiology [address] 132 [facility] [place] [address] 06/18/2023 12:20 PM EDT Office Visit Family Practice [facility] 200 [facility] [place] [address] Efraín Zamudio III, MD 200 [facility] [place] [address] 09/20/2023 9:00 AM EDT Office Visit Ophthalmology, [facility] 132 [facility] [place] [address] Francis Turner DO 21 [facility] [address] [place] [address] Scheduled Procedures Name Priority Associated Diagnoses Date/Ti [...] Documents on File Type Date Recorded Patient Intensive Care Anaesthetist Expl anation Advance Directives and Living Will 11/03/2008 ADVANCE DIRECTIVE / LIVING WILL Advance Directives and Living Will 11/03/2008 ADVANCE DIRECTIVE / LIVING WILL Power of Life Cycle Assessment Analyst 11/03/2008 POWER OF A TTORNEY Power of Life Cycle Assessment Analyst 11/03/2008 POWER OF A TTORNEY Power of Life Cycle Assessment Analyst 11/03/2008 POWER OF A TTORNEY Care Teams Cloth Pattern Maker Relationship Specialty Start Date End Date Efraín Zamudio III, MD [address] [place] [address] PCP - General Family Medicine 06/24/21 documented as of this encounter
--- OUTSIDE RECORDS SUMMARY | 2023-08-31 21:08 | External Medical Summary | Summary of Care ---
Author Name Unknown Organization [facility] Address [address] [place] [address] Phone [phone] Care Team Providers Care Corporate Claims Examiner Name Role Phone Lizz BUI MD, Efraín León Primary Care Provider [phone] Reason for Visit * Reason Onset Date Comments Advice 05/02/2023 Encounter Details Date Type Department Care Team (Late st Contact Info) Description 05/02/2023 Telephone Family Practice [facility] 200 [place] [address] Efraín Zamudio III, MD 200 [place] [address] Advice Allergies Active Allergy Reactions Criticality Noted [...] RN - 05/10/2023 1:57 PM EST Called [facility] and was told pt has an appt on 05/17/23 at 11am for eval for hydrotherapy. [facility] phone [phone]. Pt aware. * Telephone Encounter - Raegan Meyer OSA - 05/04/2023 8:29 AM EST Patient calling in to check on the status of previous message. Patient Called after 48 hour timeframe and escalation e-mail was sent to clinic leadership. * Telephone Encounter - Kenrick Min OSA - 05/02/2023 7:53 AM EST Pt is calling as he is not getting any phone calls back from [facility] about getting him in for water [...] 12:20 PM EDT Office Visit Family Practice [facility] 200 [facility] [place] [address] Efraín Zamudio III, MD 200 [facility] [place] [address] 09/20/2023 9:00 AM EDT Office Visit Ophthalmology, [facility] [address] [facility] [place] [address] Francis Turner DO [facility] [place] [address] Scheduled Procedures Name Priority Associated Diagnoses Date/Ti [...] Documents on File Type Date Recorded Patient Oil Burner Technician Expl anation Advance Directives and Living Will 11/03/2008 ADVANCE DIRECTIVE / LIVING WILL Advance Directives and Living Will 11/03/2008 ADVANCE DIRECTIVE / LIVING WILL Power of Railroad Firer 11/03/2008 POWER OF A TTORNEY Power of Railroad Firer 11/03/2008 POWER OF A TTORNEY Power of Railroad Firer 11/03/2008 POWER OF A TTORNEY Care Teams Corporate Claims Examiner Relationship Specialty Start Date End Date Efraín Zamudio III, MD [address] [place] [address] PCP - General Family Medicine 06/24/21 documented as of this encounter
--- OUTSIDE RECORDS SUMMARY | 2023-08-31 21:08 | External Medical Summary | Summary of Care ---
Author Name Unknown Organization [facility] Address [address] [place] [address] Phone [phone] Care Team Providers Care Storage Receipt Poster Name Role Phone Lizz BUI MD, Efraín León Primary Care Provider [phone] Reason for Visit * Reason Onset Date Comments Order Request 05/04/2023 Encounter Details Date Type Department Care Team (Late st Contact Info) Description 05/04/2023 Telephone Family Practice [facility] 200 [facility] [place] [address] Efraín Zamudio III, MD 200 [place] [address] Order Request Allergies Active Allergy Reactions Criticality [...] Status Silver sulfADIAZINE 1 % External Cream (Silvadene)Indications :Wound of left foot,Osteomyelitis of toe (HCC) Apply [...] Active Rosuvastatin Calcium 40 MG Oral Tablet (Crestor)Indications:D yslipidemia, goal LDL below 100 Take 1 Tablet [...] Tablet (Oxy IR) 0 03/12/2023 Acti ve LancetsIndications:Alondra betic polyneuropathy associated with type 2 diabetes mellitus (HCC) Use as directed 5 times daily 200 Each 11 04/07/2023 Active traZODone HCl 50 MG Oral Tablet (Desyrel) Take one and half tablets at bedtime 45 Tablet 2 04/09/2023 Active OneTouch Verio w/Device KitIndications:Diabeti c polyneuropathy associated with type 2 diabetes mellitus (HCC) Use as directed E11.9 1 Kit 0 04/09/2023 Active OneTouch Verio In Vitro Strip (Glucose Blood)Indications:Diab etic polyneuropathy associated with type 2 diabetes mellitus (HCC) Test five times daily for use with multiple daily insulin injections-befor e all meals, snacks, exercise, and one to two times during the night. Dx: E11.9 200 Strip 11 04/09/2023 Active OneTouch UltraSoft LancetsIndications:Alondra betic polyneuropathy associated with type 2 diabetes [...] before bedtime. 90 Tablet 5 04/30/2023 Active documented as of this encounter (statuses [...] Encounter - Nina Cunningham RN - 05/10/2023 11:45 AM EST See message of 05/10/23. * Telephone Encounter - Ronda Reilly OSA - 05/04/2023 4:51 PM EST An order was requested for this patient. Name of Requesting Provider: Dann Carcamo Order Requested: X ray for shoulder and arm Diagnosis/Reason for Request: Swelling causing pain If order request is for Mammogram: Is the patient having any breast symptoms? N/A Is there a chance of ? N/A Has the patient had any breast problems in the past? NA What location AND department does the patient wish to have their order completed at? [facility] Fax Number, if applicable: N/A Call Back Number: [phone] If order can be placed please call patient when it's finalized. Thank you If the caller is not a current [...] State Erick Butterfield [address] [place] [address] Efraín Zamudio III, MD 200 [facility] [place] [address] 09/20/2023 9:00 AM EDT Office Visit Ophthalmology, [facility] [address] [place] [address] Francis Turner, DO 21 [facility] [place] [address] Scheduled Procedures Name Priority Associated Diagnoses Date/Ti [...] Documents on File Type Date Recorded Patient Staff Field Engineer Expl anation Advance Directives and Living Will 11/03/2008 ADVANCE DIRECTIVE / LIVING WILL Advance Directives and Living Will 11/03/2008 ADVANCE DIRECTIVE / LIVING WILL Power of Hand Bindery Assembly Worker 11/03/2008 POWER OF A TTORNEY Power of Hand Bindery Assembly Worker 11/03/2008 POWER OF A TTORNEY Power of Hand Bindery Assembly Worker 11/03/2008 POWER OF A TTORNEY Care Teams Storage Receipt Poster Relationship Specialty Start Date End Date Efraín Zamudio III, MD 200 [place] [address] PCP - General Family Medicine 06/24/21 documented as of this encounter
--- OUTSIDE RECORDS SUMMARY | 2023-08-31 21:09 | External Medical Summary | Summary of Care ---
Author Name Unknown Organization [facility] Address [address] [place] [address] Phone [phone] Care Team Providers Care Dishroom Attendant Name Role Phone Lizz BUI MD, Efraín León Primary Care Provider [phone] Reason for Visit * Reason Onset Date Comments Med Request 02/06/2023 Encounter Details Date Type Department Care Team (Late st Contact Info) Description 02/06/[address] [facility] 200 [place] [address] Efraín Zamudio III, MD 200 [place] [address] Med Request Allergies Active Allergy Reactions Criticality [...] as of this encounter (statuses as of 05/08/2023) Medications Medication Sig Dispensed Refills Start Date [...] for Anxiety. 21 Tablet 0 01/12/2023 Active documented as of this encounter (statuses as of 05/08/2023) Active Problems Problem Noted Date Diagnosed Date [...] as of this encounter (statuses as of 05/08/2023) Resolved Problems Problem Noted Date Diagnosed Date [...] as of this encounter (statuses as of 05/08/2023) Immunizations Name Administration Dates Next Due COVID-19 [...] Miscellaneous Notes * Telephone Encounter - Efraín Zmaudio III, MD - 02/07/2023 9:22 AM EST Has appointment today can refill at that time * Telephone Encounter - Agata Bolden LPN - 02/06/2023 4:04 PM EST Ok for refill * Telephone Encounter - Petra Kline OSA - 02/06/2023 2:48 PM EST Pt called asking for a refill on his gabapentin. He states he spilled his bottle and was unable to pick them all up. Please advise. documented in this encounter Plan of Treatment Upcoming Encounters Date Type Department Care Team (Late st Contact Info) Description 05/10/2023 11:45 AM EST Imaging Radiology [address] [facility] [address] 06/18/2023 12:20 PM EDT Office Visit Family Practice [place] [address] [address] [place] [address] Efraín Zamudio III, MD 200 [facility] [place] [address] 09/20/2023 9:00 AM EDT Office Visit Ophthalmology, [facility] 132 [facility] [place] [address] Francis Turner DO 21 [facility] [place] [address] Scheduled Procedures Name Priority Associated Diagnoses Date/Ti [...] Documents on File Type Date Recorded Patient Curtain Worker Expl anation Advance Directives and Living Will 11/03/2008 ADVANCE DIRECTIVE / LIVING WILL Advance Directives and Living Will 11/03/2008 ADVANCE DIRECTIVE / LIVING WILL Power of Pathology Collector 11/03/2008 POWER OF A TTORNEY Power of Pathology Collector 11/03/2008 POWER OF A TTORNEY Power of Pathology Collector 11/03/2008 POWER OF A TTORNEY Care Teams Dishroom Attendant Relationship Specialty Start Date End Date Efraín Zamudio III, MD 200 [place] [address] PCP - General Family Medicine 06/24/21 documented as of this encounter
--- OUTSIDE RECORDS SUMMARY | 2023-08-31 21:09 | External Medical Summary | Summary of Care ---
Author Name Unknown Organization [facility] Address [address] [place] [address] Phone [phone] Care Team Providers Care Sports Book Server Name Role Phone Lizz BUI MD, Efraín León Primary Care Provider [phone] Reason for Visit * Reason Onset Date Comments Med Request 04/28/2023 Encounter Details Date Type Department Care Team (Late st Contact Info) Description 04/28/2023 Telephone Family Practice [facility] 200 [place] [address] Efraín Zamudio III, MD 200 [place] [address] Med Request Allergies Active Allergy Reactions Criticality [...] as of this encounter (statuses as of 05/07/2023) Medications Medication Sig Dispensed Refills Start Date [...] a week. 3 mL 6 10/25/2022 Active Esomeprazole Magnesium 40 MG Oral Capsule Delayed Release (NexIUM) Take 1 Capsule by mouth in the morning. 1 hour before the first meal of the day. 30 Capsule 4 01/12/2023 Active Rosuvastatin Calcium 40 MG Oral Tablet [...] Dx: E11.9 100 Strip 3 04/10/2023 Active Ibuprofen 600 MG Oral Tablet (Motrin) Take 1 Tablet by mouth every 8 hours as needed (Headache). 24 Tablet 0 04/21/2023 Active Zolpidem Tartrate 10 MG Oral Tablet (Ambien) Take 1 Tablet by mouth at bedtime as needed for Sleep. 30 Tablet 0 04/07/2023 4 Discontinue d(Refill) Ibuprofen 600 MG Oral Tablet (Motrin) Take 1 Tablet by mouth every 8 hours as needed (Headache). 24 Tablet 0 04/21/2023 4 Discontinue d(Refill) Zolpidem Tartrate 10 MG Oral Tablet (Ambien) Take 1 Tablet by mouth at bedtime as needed for Sleep. 30 Tablet 0 04/30/2023 4 Discontinue d(Refill) documented as of this encounter (statuses as of 05/07/2023) Active Problems Problem Noted Date Diagnosed Date [...] as of this encounter (statuses as of 05/07/2023) Resolved Problems Problem Noted Date Diagnosed Date [...] as of this encounter (statuses as of 05/07/2023) Immunizations Name Administration Dates Next Due COVID-19 [...] Telephone Encounter - Madeline Ernandez LPN - 05/07/2023 1:50 PM EST Sent today. * Telephone Encounter - Charu Hernandez LPN - 04/28/2023 11:46 AM EST Called pharmacy and verified that pt picked up last script of 30 tabs on 04/07/23. Called pt and notified him that it is a little early for another script but will forward to PCP Did you pend patient's preferred pharmacy and medication before forwarding?yes Pharmacy: [facility] [id number] [address] [place] [place] No prescriptions requested or ordered in this encounter Last Visit: 03/14/2023 (in office), 07/15/2019 (telemedicine) Next Visit: 06/18/2023 If no future appointments scheduled, and last appointment is greater than a year ago, please schedule patient for a follow-up appointment Last date the medication was ordered: 04/07/23 Is this request for a controlled substance?Yes, What was the last refill date 04/07/23 w/ quantity 30 and dosage 10mg and Urine Drug Screen Not completed Urine [...] 12/04/2019 01:51 PM * Telephone Encounter - Tatiana Gavin OSA - 04/28/2023 11:20 AM EST Patient requesting refill of Zolpidem Tartrate 10 MG Oral Tablet (Ambien). Currently out of medication. Call back #[phone] documented in this encounter Plan of Treatment Upcoming Encounters Date Type Department Care Team (Late st Contact Info) Description 05/26/2023 3:15 PM EST Imaging Radiology [facility] 132 [facility] [place] [address] 06/18/2023 12:20 PM EDT Office Visit Family Practice [facility] [address] [place] [address] Efraín Zamudio III, MD [address] [place] [address] 09/20/2023 9:00 AM EDT Office Visit Ophthalmology, [facility] 132 [facility] [place] [address] Francis Turner, DO [facility] [place] [address] Scheduled Procedures Name Priority Associated Diagnoses Date/Ti [...] on File Type Date Recorded Patient Extrusion Die Repairer Expl anation Advance Directives and Living Will 11/03/2008 ADVANCE DIRECTIVE / LIVING WILL Advance Directives and Living Will 11/03/2008 ADVANCE DIRECTIVE / LIVING WILL Power of Electrical Line Worker 11/03/2008 POWER OF A TTORNEY Power of Electrical Line Worker 11/03/2008 POWER OF A TTORNEY Power of Electrical Line Worker 11/03/2008 POWER OF A TTORNEY Care Teams Sports Book Server Relationship Specialty Start Date End Date Efraín Zamudio III, MD 200 [facility] [place] [address] PCP - General Family Medicine 06/24/21 documented as of this encounter
--- OUTSIDE RECORDS SUMMARY | 2023-08-31 21:09 | External Medical Summary | Summary of Care ---
Author Name Unknown Organization [facility] Address [address] [facility] [place] [address] Phone [phone] Care Team Providers Care Food Demonstrator Name Role Phone Lizz BUI MD, Efraín León Primary Care Provider [phone] Encounter Details Date Type Department Care Team (Late st Contact Info) Description 05/09/2023 Orders Only PATIENT PORTAL DO NOT DELETE THIS DEPT USED BY [place] [id number] Allergies Active Allergy Reactions Criticality Noted Date [...] Description 05/10/2023 11:45 AM EST Imaging Radiology [facility] [address] [place] [address] 06/18/2023 12:20 PM EDT Office Visit Family Practice [facility] 200 [facility] [place] [address] Efraín Zamudio III, MD 200 [facility] [place] [address] 09/20/2023 9:00 AM EDT Office Visit Ophthalmology, [facility] [address] [place] [address] Francis Turner DO 21 [facility] [place] [address] Scheduled Procedures Name Priority Associated Diagnoses Date/Ti [...] Documents on File Type Date Recorded Patient Broadcast Field Supervisor Expl anation Advance Directives and Living Will 11/03/2008 ADVANCE DIRECTIVE / LIVING WILL Advance Directives and Living Will 11/03/2008 ADVANCE DIRECTIVE / LIVING WILL Power of Bit Tapper 11/03/2008 POWER OF A TTORNEY Power of Bit Tapper 11/03/2008 POWER OF A TTORNEY Power of Bit Tapper 11/03/2008 POWER OF A TTORNEY Care Teams Food Demonstrator Relationship Specialty Start Date End Date Efraín Zamudio III, MD 200 [place] [address] PCP - General Family Medicine 06/24/21 documented as of this encounter
--- OUTSIDE RECORDS SUMMARY | 2023-08-31 21:09 | External Medical Summary | Summary of Care ---
Author Name Unknown Organization [facility] Address [address] [place] [address] Phone [phone] Care Team Providers Care Manager Stars Name Role Phone Lizz BUI MD, Efraín León Primary Care Provider [phone] Reason for Visit * Reason Onset Date Comments Med Request 05/04/2023 Ibuprofen Encounter Details Date Type Department Care Team (Late st Contact Info) Description 05/04/2023 Telephone Family Practice [facility] 200 [place] [address] Efraín Zamudio III, MD 200 [place] [address] Med Request (Ibuprofen) Allergies Active Allergy Reactions Criticality Noted Date [...] as of this encounter (statuses as of 05/04/2023) Medications Medication Sig Dispensed Refills Start Date [...] needed for Sleep. 30 Tablet 0 04/30/2023 Active Gabapentin 800 MG Oral Tablet (Neurontin) Take 1 Tablet by mouth in the morning and 1 Tablet at noon and 1 Tablet before bedtime. 90 Tablet 5 04/30/2023 Active Ibuprofen 600 MG Oral Tablet (Motrin) Take 1 Tablet by mouth every 8 hours as needed (Headache). 24 Tablet 0 05/04/2023 Active Ibuprofen 600 MG Oral Tablet (Motrin) Take 1 Tablet by mouth every 8 hours as needed (Headache). 24 Tablet 0 04/21/2023 Discontinue d(Refill) documented as of this encounter (statuses as of 05/04/2023) Active Problems Problem Noted Date Diagnosed Date [...] as of this encounter (statuses as of 05/04/2023) Resolved Problems Problem Noted Date Diagnosed Date [...] as of this encounter (statuses as of 05/04/2023) Immunizations Name Administration Dates Next Due COVID-19 [...] Notes * Telephone Encounter - Agata Bolden, FIELD EDUCATION DIRECTOR - 05/04/2023 9:03 AM EST Pt requesting refill of ibuprofen to get him through until his mri. Pending Prescriptions: Disp Refills Ibuprofen 600 MG Oral Tablet (Motrin) 24 Tab*0 Sig: Take 1 Tablet by mouth every 8 hours as needed (Headache). Last Visit: 03/14/2023 (in office), 07/15/2019 (telemedicine) Next Visit: 06/18/2023 Last date the medication was ordered: 04/21/2023 Patient Active Problem List Diagnosis Code Esophageal reflux K21.9 Spinal stenosis of lumbar region without neurogenic claudication M48.061 DYSLIPIDEMIA, GOAL LDL BELOW 100 E78.5 Tobacco use disorder F17.200 Diabetic polyneuropathy ([facility]) E11.42 MEDICATION USE AGREEMENT [id number] Postlaminectomy syndrome M96.1 HTN, goal below 140/90 I10 COPD, severity to be determined ([facility]) J44.9 Anxiety and depression F41.9, F32.A [...] 11/05/2018 08:59 AM * Telephone Encounter - Raegan Meyer OSA - 05/04/2023 8:25 AM EST Patient was unable to have appt yesterday for MRI. Stated that there was no one there to check him in. He rescheduled appt for next Sunday. He asked if PCP could prescribe more Ibuprofen because theones he has isn't going to last until then. Please call when rx is sent to pharmacy. documented in this encounter Plan of Treatment Upcoming Encounters Date Type Department Care Team (Late st Contact Info) Description 05/08/2023 12:15 PM EST Imaging Radiology [address] 132 [facility] [place] [address] 06/18/2023 12:20 PM EDT Office [facility] [address] [place] [address] [place] III, Efraín León MD [address] [place] [address] 09/20/2023 9:00 AM EDT Office Visit Ophthalmology, [facility] [address] [place] [address] Francis Turner, DO 21 [place] [address] Scheduled Procedures Name Priority Associated Diagnoses Date/Ti [...] Documents on File Type Date Recorded Patient Ob Gyn Expl anation Advance Directives and Living Will 11/03/2008 ADVANCE DIRECTIVE / LIVING WILL Advance Directives and Living Will 11/03/2008 ADVANCE DIRECTIVE / LIVING WILL Power of Residential Sales Consultant 11/03/2008 POWER OF A TTORNEY Power of Residential Sales Consultant 11/03/2008 POWER OF A TTORNEY Power of Residential Sales Consultant 11/03/2008 POWER OF A TTORNEY Care Teams Manager Stars Relationship Specialty Start Date End Date Efraín Zamudio III, MD [address] [place] [address] PCP - General Family Medicine 06/24/21 documented as of this encounter
--- OUTSIDE RECORDS SUMMARY | 2023-08-31 21:09 | External Medical Summary | Summary of Care ---
Author Name Unknown Organization [facility] Address [address] [place] [address] Phone [phone] Care Team Providers Care Voip Engineer Name Role Phone Lizz BUI MD, Efraín León Primary Care Provider [phone] Reason for Visit * Reason Onset Date Comments Med Request 04/28/2023 Encounter Details Date Type Department Care Team (Late st Contact Info) Description 04/28/2023 Telephone Family Practice [facility] 200 [facility] [address] Efraín Zamudio III, MD 200 [place] [address] Med Request Allergies Active Allergy Reactions Criticality [...] as of this encounter (statuses as of 04/30/2023) Medications Medication Sig Dispensed Refills Start Date [...] needed (Headache). 24 Tablet 0 04/21/2023 Active Ibuprofen 600 MG Oral Tablet (Motrin) Take 1 Tablet by mouth every 8 hours as needed (Headache). 24 Tablet 0 04/21/2023 Active Zolpidem Tartrate 10 MG Oral Tablet (Ambien) Take 1 Tablet by mouth at bedtime as needed for Sleep. 30 Tablet 0 04/30/2023 Active Zolpidem Tartrate 10 MG Oral Tablet (Ambien) Take 1 Tablet by mouth at bedtime as needed for Sleep. 30 Tablet 0 04/07/2023 Discontinue d(Refill) documented as of this encounter (statuses as of 04/30/2023) Active Problems Problem Noted Date Diagnosed Date [...] as of this encounter (statuses as of 04/30/2023) Resolved Problems Problem Noted Date Diagnosed Date [...] as of this encounter (statuses as of 04/30/2023) Immunizations Name Administration Dates Next Due COVID-19 [...] encounter Miscellaneous Notes * Telephone Encounter - Charu Hernandez LPN - 04/28/2023 11:46 AM EST Called pharmacy and verified that pt picked up last script of 30 tabs on 04/07/23. Called pt and notified him that it is a little early for another script but will forward to PCP Did you pend patient's preferred pharmacy and medication before forwarding?yes Pharmacy: [facility] [address] No prescriptions requested or ordered in this [...] (Ambien). Currently out of medication. Call back #[phone] documented in this encounter Plan of Treatment Upcoming Encounters Date Type Department Care Team (Late st Contact Info) Description 05/03/2023 7:30 AM EST Imaging Radiology [facility] 1st [facility] 132 [facility] [place] [address] 06/18/2023 12:20 PM EDT Office Visit Family Practice [facility] [place] [address] [place] [address] [place] Efraín BUI MD 200 [facility] [place] [address] 09/20/2023 9:00 AM EDT Office Visit Ophthalmology, [facility] 132 [facility] [place] [address] Francis Turner, DO [address] [place] [address] Scheduled Procedures Name Priority Associated Diagnoses Date/Ti [...] Documents on File Type Date Recorded Patient Talent Director Expl anation Advance Directives and Living Will 11/03/2008 ADVANCE DIRECTIVE / LIVING WILL Advance Directives and Living Will 11/03/2008 ADVANCE DIRECTIVE / LIVING WILL Power of Campaign Coordinator 11/03/2008 POWER OF A TTORNEY Power of Campaign Coordinator 11/03/2008 POWER OF A TTORNEY Power of Campaign Coordinator 11/03/2008 POWER OF A TTORNEY Care Teams Voip Engineer Relationship Specialty Start Date End Date Efraín Zamudio III, MD 200 [facility] [place] [address] PCP - General Family Medicine 06/24/21 documented as of this encounter
--- OUTSIDE RECORDS SUMMARY | 2023-08-31 21:09 | External Medical Summary | Summary of Care ---
Author Name Unknown Organization [facility] Address [address] [place] [address] Phone [phone] Care Team Providers Care Gem Carver Name Role Phone Lizz BUI MD, Efraín León Primary Care Provider [phone] Reason for Visit * Reason Onset Date Comments Medication Question 04/27/2023 FYI 04/27/2023 Encounter Details Date Type Department Care Team (Late st Contact Info) Description 04/27/2023 Telephone Family Practice [facility] 200 [place] [address] Efraín Zamudio III, MD 200 [place] [address] Medication Question; Allergies Active Allergy Reactions Criticality Noted Date [...] a week. 3 mL 6 3 Active Esomeprazole Magnesium 40 MG Oral Capsule Delayed Release (NexIUM) Take 1 Capsule by mouth in the morning. 1 hour before the first meal of the day. 30 Capsule 4 3 Active Rosuvastatin Calcium 40 MG Oral Tablet (Crestor)Indicatio ns:Dyslipidemia, goal LDL below 100 Take 1 Tablet by mouth at bedtime. 90 Tablet 1 3 Active LORazepam 0.5 MG Oral Tablet (Ativan) Take 1 Tablet by mouth every 8 hours as needed for Anxiety. 21 Tablet 0 3 Active Rizatriptan Benzoate 10 MG Oral [...] Dx: E11.9 100 Strip 3 4 Active Ibuprofen 600 MG Oral Tablet (Motrin) Take 1 Tablet by mouth every 8 hours as needed (Headache). 24 Tablet 0 4 Active Ibuprofen 600 MG Oral Tablet (Motrin) Take 1 Tablet by mouth every 8 hours as needed (Headache). 24 Tablet 0 4 Active Gabapentin 800 MG Oral Tablet (Neurontin) Take 1 Tablet by mouth in the morning and 1 Tablet at noon and 1 Tablet before bedtime. 90 Tablet 5 4 Active Zolpidem Tartrate 10 MG Oral Tablet (Ambien) Take 1 Tablet by mouth at bedtime as needed for Sleep. 30 Tablet 0 4 04/28/19 24 Discontinued(Ref ill) Gabapentin 400 MG Oral Capsule (Neurontin) Take 1 Capsule by mouth in the morning and 1 Capsule at noon and 1 Capsule before bedtime. 90 Capsule 5 4 04/30/19 24 Discontinued documented as of this encounter [...] Overview: Per HTN Taxonomy. Mixed dyslipidemia 06/24/2008 12// 9 Overview: Per Lipid Taxonomy. documented as [...] encounter Miscellaneous Notes * Telephone Encounter - Zoie Gibson CPhT - 04/30/2023 4:56 PM EST Patient advised med sent to pharmacy Thank you, Zoie Gibson Concrete Worker II [facility] ([facility]) (formerly Telepharmacy) 04/30/2023 4:56 PM * Telephone Encounter - Corey Galvan DO - 04/30/2023 1:22 PM EST Increased dose sent * Telephone Encounter - Serenity Jacobs OSA - 04/30/2023 8:07 AM EST Patient calling in to check on the status of previous message. Patient Called within 48 hour timeframe. Reminded patient of 48 hour turn-around time. * Telephone Encounter - Tatiana Gavin OSA - 04/28/2023 11:25 AM EST Patient agreeable to higher gabapentin dose. Currently takes 600 mg three times daily (morning, noon, and night). * Telephone Encounter - Corey Galvan DO - 04/27/2023 3:06 PM EST We could increase his Gabapentin further. If he wants this please find out how much and how often he is taking gabapentin * Telephone Encounter - Janna Dawn LPN - 04/27/2023 11:48 AM EST Last OV was 03/14/2023. * Telephone Encounter - Nani Shen OSA - 04/27/2023 9:11 AM EST Pt calling to see if there is anything stronger than Gabapentin that he is taking for his feet. Hehas 3 toes cut off on the one foot and the other foot has a bad toenail and it continues to give him a lot of pain and he needs something stronger. Starts with a tingling sensation and goes to sharp pain. He is currently taking 600 MG of Gabapentin. documented in this encounter Plan of Treatment Upcoming Encounters Date Type Department Care Team (Late st Contact Info) Description 05/03/2023 7:30 AM EST Imaging Radiology [address], [address] [place] [address] 06/18/2023 12:20 PM EDT Office Visit Family Practice [facility] [place] [address] LizzEfraín almodovar III, MD [address] [facility] [place] [address] 09/20/2023 9:00 AM EDT Office Visit Ophthalmology, [facility] [address] [place] [address] Francis Turner, DO [address] [place] [address] Scheduled Procedures Name Priority Associated Diagnoses Date/Ti [...] on File Type Date Recorded Patient Drum Barker Operator Expl anation Advance Directives and Living Will 11/03/2008 ADVANCE DIRECTIVE / LIVING WILL Advance Directives and Living Will 11/03/2008 ADVANCE DIRECTIVE / LIVING WILL Power of Software Development Coordinator 11/03/2008 POWER OF A TTORNEY Power of Software Development Coordinator 11/03/2008 POWER OF A TTORNEY Power of Software Development Coordinator 11/03/2008 POWER OF A TTORNEY Care Teams Gem Carver Relationship Specialty Start Date End Date Efraín Zamudio III, MD [address] [place] [address] PCP - General Family Medicine 06/24/21 documented as of this encounter
--- OUTSIDE RECORDS SUMMARY | 2023-08-31 21:09 | External Medical Summary | Summary of Care ---
Author Name Unknown Organization [facility] Address [address] [place] [address] Phone [phone] Care Team Providers Care Bag Machine Adjuster Name Role Phone Lizz BUI MD, Efraín León Primary Care Provider [phone] Reason for Visit * Reason Onset Date Comments Medication Update 03/15/2023 Encounter Details Date Type Department Care Team (Late st Contact Info) Description 03/15/2023 Telephone Family Practice [facility] 200 [place] [address] Efraín Zamudio III, MD [address] [place] [address] Medication Update Allergies Active Allergy Reactions Criticality Noted Date [...] g 1 09/13/2022 Active Gauze Pads 4"X4" PadIndications:Woun d of left [...] directed . 1 Kit 0 12/16/2021 4 Discontinued (Refill) LancetsIndications: Diabetic polyneuropathy associated with type 2 diabetes mellitus (HCC) Use as directed 5 times daily 200 Each 11 12/16/2021 4 Discontinued (Refill) Contour Next Test In Vitro Strip (Glucose Blood)Indications:D iabetic polyneuropathy associated with type 2 diabetes mellitus (HCC) Test five times daily for use with multiple daily insulin injections-bef ore all meals, snacks, exercise, and one to two times during the night. Dx: E11.9 200 Strip 5 12/16/2021 4 Discontinued (Refill) Esomeprazole Magnesium 40 MG Oral Capsule Delayed Release (NexIUM) Take 1 Capsule by mouth in the morning. 1 hour before the first meal of the day. 30 Capsule 4 01/12/2023 4 Discontinued (Refill) Diclofenac Sodium 1 % External Gel (Voltaren) Apply topically to affected area 4 times a day. 2 grams/ dose Apply to knee as needed for pain 100 g 1 01/21/2023 4 Discontinued (Refill) traZODone HCl 50 MG Oral Tablet (Desyrel) Take 1 Tablet by mouth at bedtime. 30 Tablet 2 03/14/2023 4 Discontinued (Refill) Zolpidem Tartrate 10 MG Oral Tablet (Ambien) Take 1 Tablet by mouth at bedtime as needed for Sleep. 30 Tablet 0 03/14/2023 4 Discontinued (Refill) Cephalexin 500 MG Oral Capsule (Keflex) Take 1 Capsule by mouth in the morning and 1 Capsule at noon and 1 Capsule before bedtime. Do all this for 10 days. 30 Capsule 0 03/14/2023 3 Gabapentin 400 MG Oral Capsule (Neurontin) Take 1 Capsule by mouth in the morning and 1 Capsule at noon and 1 Capsule before bedtime. 90 Capsule 5 03/14/2023 4 Discontinued (Refill) Ibuprofen 600 MG Oral Tablet (Motrin) Take 1 Tablet by mouth every 8 hours as needed (Headache) for up to 10 days. 24 Tablet 0 03/16/2023 4 Discontinued (Refill) documented as of this encounter (statuses as [...] encounter Miscellaneous Notes * Telephone Encounter - Octavio Horton [facility] - 03/16/2023 11:02 AM EST Called and spoke to patient. Advised OK to take Tylenol as well as ibuprofen. Advised to take ibuprofen with food. Thank you, Octavio Horton, PharmD Clinical Pharmacist [facility] ([facility] [phone] 03/16/2023, 11:02 AM * Telephone Encounter - Efraín Zamudio III, MD - 03/16/2023 8:40 AM EST Could try acetaminophen as well * Telephone Encounter - Octavio Horton [facility] - 03/15/2023 1:42 PM EST Patient called stating that he has been getting headaches approximately 20 minutes after taking cephalexin. He feels the antibiotic is "working good" and would prefer to stay on them but would like something prescribed to assist with headaches. Note: Headache is a rare but reported side effect with cephalexin use. Patient noted that toradol worked great for his headaches, but I advised him that terminal gauger use isn't safe. Patient took Excedrin without much effect. Patient requested this be addressed today if possible, high priority for that reason. Consider prescribing a short course of Ibuprofen 600mg to assist with headache pain, to be taken asneeded (pended). Please review and approve if appropriate, please route back to me to inform the patient. Please advise. Thank you, Octavio Horton, PharmD Clinical Pharmacist [facility] ([facility]) ([facility]) [phone] 03/15/2023, 1:50 PM * Telephone Encounter - Zoie Gibson CPhT - 03/15/2023 1:37 PM EST Patient calling to report he gets headache 20 minutes after taking his Cephalexin 500 MG Oral Capsule (Keflex) asking if this can be from the medication Thank you, Zoie Gibson Retread Mold Operator II [facility]) 03/15/2023 1:38 PM documented in this encounter Plan of Treatment Upcoming Encounters Date Type Department Care Team (Late st Contact Info) Description 05/10/2023 11:45 AM EST Imaging Radiology [facility]st [facility] 132 [facility] [place] [address] 06/18/2023 12:20 PM EDT Office Visit Family Practice [facility] 200 [facility] [place] [address] Efraín Zamudio III, MD [address] [facility] [place] [address] 09/20/2023 9:00 AM EDT Office Visit Ophthalmology, [facility] 132 [facility] [place] [address] Francis Turner, 21 [facility] [place] [address] Scheduled Procedures Name Priority Associated Diagnoses Date/Ti [...] File Type Date Recorded Patient It Systems Manager Expl anation Advance Directives and Living Will 11/03/2008 ADVANCE DIRECTIVE / LIVING WILL Advance Directives and Living Will 11/03/2008 ADVANCE DIRECTIVE / LIVING WILL Power of Traffic Sign Supervisor 11/03/2008 POWER OF A TTORNEY Power of Traffic Sign Supervisor 11/03/2008 POWER OF A TTORNEY Power of Traffic Sign Supervisor 11/03/2008 POWER OF A TTORNEY Care Teams Bag Machine Adjuster Relationship Specialty Start Date End Date Efraín Zamudio III, MD [address] [place] [address] PCP - General Family Medicine 06/24/21 documented as of this encounter
--- OUTSIDE RECORDS SUMMARY | 2023-08-31 21:09 | External Medical Summary | Summary of Care ---
Author Name Unknown Organization [facility] Address [address] [place] [address] Phone [phone] Care Team Providers Care Tavern Car Attendant Name Role Phone Lizz BUI MD, Didier León Primary Care Provider [phone] Reason for Visit * Reason Onset Date Comments Medication Refill 05/08/2023 Encounter Details Date Type Department Care Team (Late st Contact Info) Description 05/08/2023 Refill Family Practice [facility] 200 [place] [address] Didier Huff III, MD 200 [place] [address] Encounter for long-term (current) use of medications* Allergies Active Allergy Reactions Criticality Noted Date [...] needed (Headache). 24 Tablet 0 04/21/2023 Active Gabapentin 800 MG Oral Tablet (Neurontin) Take 1 Tablet by mouth in the morning and 1 Tablet at noon and 1 Tablet before bedtime. 90 Tablet 5 04/30/2023 Active Ibuprofen 600 MG Oral Tablet (Motrin) Take 1 Tablet by mouth every 8 hours as needed (Headache). 24 Tablet 0 05/04/2023 Active Zolpidem Tartrate 10 MG Oral Tablet (Ambien) Take 1 Tablet by mouth at bedtime as needed for Sleep. 30 Tablet 0 05/07/2023 Active Esomeprazole Magnesium 40 MG Oral Capsule Delayed Release (NexIUM) Take 1 Capsule by mouth in the morning. 1 hour before the first meal of the day. 30 Capsule 11 05/08/2023 Active Esomeprazole Magnesium 40 MG Oral Capsule Delayed Release (NexIUM) Take 1 Capsule by mouth in the morning. 1 hour before the first meal of the day. 30 Capsule 4 01/12/2023 Discontinue d(Refill) documented as of this encounter [...] encounter Miscellaneous Notes * Telephone Encounter - Robert Rodriges RPh - 05/08/2023 9:02 AM ESTSigned Prescriptions: Disp Refills Esomeprazole Magnesium 40 MG Oral Capsule *30 Cap*11 Sig: Take 1Capsule by mouth in the morning. 1 hour before the first meal of the day.Authorizing Provider: DIDIER HUFF III User: ROBERT RODRIGES * Telephone Encounter - Robert Rodriges RPh - 05/08/2023 9:01 AM EST Per refill protocol patient needs vitamin B-12 lab on file within the past 2 years while using PPIs. Lab work ordered. Patient may obtain with next routine labs. Thanks, Robert Rodriges [facility] Clinical Pharmacist [facility] ([facility]) (Formerly Telepharmacy) [phone] * Telephone Encounter - Erendira Cook, pals specialist - 05/08/2023 8:50 AM EST Patient is out of med Did you pend patient's preferred pharmacy and medication before forwarding?yes Pharmacy: [facility] [address] [place] Pending Prescriptions: Disp Refills Esomeprazole Magnesium 40 MG Oral Capsule*30 Cap*4 Sig: Take 1 Capsule by mouth in the morning. 1 hour before the first meal of the day. Last Visit: 03/14/2023 (in office), 07/15/2019 (telemedicine) Next Visit: 06/18/2023 If no future appointments scheduled, and last appointment is greater than a year ago, please schedule patient for a follow-up appointment Last date the medication was ordered: 01/12/2023 Is this request for a controlled substance?No [...] Description 05/26/2023 3:15 PM EST Imaging Radiology [facility] 1st [facility] 132 [facility] [place] [address] 06/18/2023 12:20 PM EDT Office Visit Family Practice [facility] 200 [facility] [place] [address] Didier Huff III, MD 200 [facility] [place] [address] 09/20/2023 9:00 AM EDT Office Visit Ophthalmology, [facility] [address] [facility] [place] [address] Francis Turner DO 21 [facility] [place] [address] Scheduled Orders Name Type Priority Associated Diagnoses Orde r Schedule VITAMIN B12 Lab Routine Encounter for long-term (current) use of medications Expected: 05/15/2023 (Approximate), Expires: 05/08/2024 Scheduled Procedures Name Priority Associated Diagnoses Date/Ti [...] Diagnosis Encounter for long-term (current) use of medications- Primary Encounter for long-term (current) use of other medications documented in this encounter Advance Directives Documents on File Type Date Recorded Patient Time Study Technologist Expl anation Advance Directives and Living Will 11/03/2008 ADVANCE DIRECTIVE / LIVING WILL Advance Directives and Living Will 11/03/2008 ADVANCE DIRECTIVE / LIVING WILL Power of Barber Tool Sharpener 11/03/2008 POWER OF A TTORNEY Power of Barber Tool Sharpener 11/03/2008 POWER OF A TTORNEY Power of Barber Tool Sharpener 11/03/2008 POWER OF A TTORNEY Care Teams Tavern Car Attendant Relationship Specialty Start Date End Date Didier Huff III, MD 200 [facility] [address] PCP - General Family Medicine 06/24/21 documented as of this encounter
--- OUTSIDE RECORDS SUMMARY | 2023-08-31 21:09 | External Medical Summary | Summary of Care ---
Author Name Unknown Organization [facility] Address [address] [place] [facility] [place] [address] Phone [phone] Care Team Providers Care Staff Home Therapy Rn Name Role Phone Lizz BUI MD, Efraín León Primary Care Provider [phone] Reason for Visit * Reason Onset Date Comments Appointment 05/03/2023 Encounter Details Date Type Department Care Team (Late st Contact Info) Description 05/03/20[address] Telephone [address] [facility] [address] Gaby Marquez TECH Appointment Allergies Active Allergy Reactions Criticality Noted [...] as of this encounter (statuses as of 05/03/2023) Medications Medication Sig Dispensed Refills Start Date [...] as of this encounter (statuses as of 05/03/2023) Active Problems Problem Noted Date Diagnosed Date [...] as of this encounter (statuses as of 05/03/2023) Resolved Problems Problem Noted Date Diagnosed Date [...] as of this encounter (statuses as of 05/03/2023) Immunizations Name Administration Dates Next Due COVID-19 [...] Description 05/08/2023 12:15 PM EST Imaging Radiology [facility]st [facility] 132 [facility] [place] [address] 06/18/2023 12:20 PM EDT Office Visit Family Practice [facility] 200 [facility] [place] [address] Efraín Zamudio III, MD [facility] [address] 09/20/2023 9:00 AM EDT Office Visit Ophthalmology, [facility] 132 [facility] [place] [address] Francis Turner DO 21 [place] [address] Scheduled Procedures Name Priority Associated Diagnoses Date/Ti [...] Documents on File Type Date Recorded Patient Organ Builder Expl anation Advance Directives and Living Will 11/03/2008 ADVANCE DIRECTIVE / LIVING WILL Advance Directives and Living Will 11/03/2008 ADVANCE DIRECTIVE / LIVING WILL Power of Tower Director 11/03/2008 POWER OF A TTORNEY Power of Tower Director 11/03/2008 POWER OF A TTORNEY Power of Tower Director 11/03/2008 POWER OF A TTORNEY Care Teams Staff Home Therapy Rn Relationship Specialty Start Date End Date Efraín Zamudio III, MD 200 [place] [address] PCP - General Family Medicine 06/24/21 documented as of this encounter
--- OUTSIDE RECORDS SUMMARY | 2023-08-31 21:09 | External Medical Summary | Summary of Care ---
Author Name Unknown Organization [facility] Address [address] [place] [address] Phone [phone] Care Team Providers Care Yard Inspector Name Role Phone Lizz BUI MD, Didier León Primary Care Provider [phone] Reason for Visit * Reason Onset Date Comments Medication Refill 05/09/2023 Encounter Details Date Type Department Care Team (Late st Contact Info) Description 05/09/2023 Refill Family Practice [facility] 200 [facility] [address] Didier Huff III, MD 200 [place] [address] Allergies Active Allergy Reactions Criticality Noted Date [...] needed (Headache). 24 Tablet 0 05/09/2023 Active Ibuprofen 600 MG Oral Tablet (Motrin) Take 1 Tablet by mouth every 8 hours as needed (Headache). 24 Tablet 0 04/21/2023 4 Discontinue d(Medicatio n List Clean Up) Ibuprofen 600 MG Oral Tablet (Motrin) Take 1 Tablet by mouth every 8 hours as needed (Headache). 24 Tablet 0 05/04/2023 4 Discontinue d(Refill) documented as of this [...] encounter Miscellaneous Notes * Telephone Encounter - Elizabeth Rowell RPh - 05/09/2023 8:16 AM ESTSigned Prescriptions: Disp Refills Ibuprofen 600 MG Oral Tablet (Motrin) 24 Tab*0 Sig: Take 1 Tablet by mouth every 8 hours as needed (Headache).Authorizing Provider: DIDIER HUFF III User: ELIZABETH ROEWLL * Telephone Encounter - Suzy Krishna cook soup - 05/09/2023 8:05 AM EST Pt requesting HIGH PRIORITY due to pt will be out of meds sat Pr would like to pickup driver tomorrow Please Did you pend patient's preferred pharmacy and medication before forwarding?yes Pharmacy: [facility] [address] [address] [place] Pending Prescriptions: Disp Refills Ibuprofen 600 MG Oral Tablet (Motrin) 24 Tab*0 Sig: Take 1 Tablet by mouth every 8 hours as needed (Headache). Last Visit: 03/14/2023 (in office), 07/15/2019 (telemedicine) Next Visit: 06/18/2023 If no future appointments scheduled, and last appointment is greater than a year ago, please schedule patient for a follow-up appointment Last date the medication was ordered: 05/04/2023 Is this request for a controlled substance?No [...] Description 05/10/2023 11:45 AM EST Imaging Radiology [facility]st [facility] 132 [facility] [place] [address] 06/18/2023 12:20 PM EDT Office Visit Family Practice [facility] [address] [place] [address] Didier Huff III, MD [address] [place] [address] 09/20/2023 9:00 AM EDT Office Visit Ophthalmology, [facility] 132 [facility] [place] [address] Francis Turner, DO [facility] [place] [address] Scheduled Procedures Name Priority Associated Diagnoses Date/Ti [...] Documents on File Type Date Recorded Patient Supervisor Tile And Mottle Expl anation Advance Directives and Living Will 11/03/2008 ADVANCE DIRECTIVE / LIVING WILL Advance Directives and Living Will 11/03/2008 ADVANCE DIRECTIVE / LIVING WILL Power of White Mixing Operator 11/03/2008 POWER OF A TTORNEY Power of White Mixing Operator 11/03/2008 POWER OF A TTORNEY Power of White Mixing Operator 11/03/2008 POWER OF A TTORNEY Care Teams Yard Inspector Relationship Specialty Start Date End Date Didier uHff III, MD 200 [place] [address] PCP - General Family Medicine 06/24/21 documented as of this encounter
--- OUTSIDE RECORDS SUMMARY | 2023-08-31 21:09 | External Medical Summary | Summary of Care ---
Author Name Unknown Organization [facility] Address [address] [place] [address] Phone [phone] Care Team Providers Care Room Service Supervisor Name Role Phone Lizz BUI MD, Efraín León Primary Care Provider [phone] Reason for Visit * Reason Onset Date Comments Medication Refill 05/07/2023 Encounter Details Date Type Department Care Team (Late st Contact Info) Description 05/07/2023 Refill Family Practice [facility] 200 [place] [address] Efraín Zamudio III, MD 200 [place] [address] Allergies Active Allergy Reactions Criticality Noted Date [...] for Sleep. 30 Tablet 0 05/07/2023 Active Zolpidem Tartrate 10 MG Oral Tablet (Ambien) Take 1 Tablet by mouth at bedtime as needed for Sleep. 30 Tablet 0 04/30/2023 Discontinue d(Refill) documented as of this [...] encounter Miscellaneous Notes * Telephone Encounter - Vito Washington DO - 05/07/2023 1:25 PM ESTSigned Prescriptions: Disp Refills Zolpidem Tartrate 10 MG Oral Tablet (Ambie*30 Tab*0 Sig: Take 1 Tablet by mouth at bedtime as needed for Sleep. 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 Brain metastasis C79.31 Small cell lung cancer ([facility]) C34.90 Major depressive disorder, recurrent episode, moderate ([facility]) F33.1 Chronic back pain M54.9, G89.29 Laceration of toe S91.119A Tenosynovitis of left foot M65.9 Atrial fibrillation ([facility]) I48.91 Amputation of toe of right foot ([facility]) S98.131A Type 2 diabetes mellitus with hemoglobin A1c goal of less than 7.5% ([facility]) E11.9 Labs: Lab Results Component Value Date/Time [...] 11/05/2018 08:59 AM * Telephone Encounter - Jeannine Darling OSA - 05/07/2023 8:38 AM EST Patient is asking for refill of Zolpidem Tartrate 10 MG Oral Tablet (Ambien) documented in this encounter Plan of Treatment Upcoming Encounters Date Type Department Care Team (Late st Contact Info) Description 05/08/2023 12:15 PM EST Imaging Radiology [facility] 1st [facility] 132 [facility] [place] [address] 06/18/2023 12:20 PM EDT Office Visit Family Practice [facility] 200 [facility] [place] [address] Efraín Zamudio III, MD [address] [place] [address] 09/20/2023 9:00 AM EDT Office Visit Ophthalmology, [facility] [address] [facility] [place] [address] Francis Turner, DO [facility] [place] [address] Scheduled Procedures Name Priority Associated Diagnoses Date/Ti [...] Documents on File Type Date Recorded Patient Personnel Generalist Manager Expl anation Advance Directives and Living Will 11/03/2008 ADVANCE DIRECTIVE / LIVING WILL Advance Directives and Living Will 11/03/2008 ADVANCE DIRECTIVE / LIVING WILL Power of Marketing Editor 11/03/2008 POWER OF A TTORNEY Power of Marketing Editor 11/03/2008 POWER OF A TTORNEY Power of Marketing Editor 11/03/2008 POWER OF A TTORNEY Care Teams Room Service Supervisor Relationship Specialty Start Date End Date Efraín Zamudio III, MD 200 [place] [address] PCP - General Family Medicine 06/24/21 documented as of this encounter
--- OUTSIDE RECORDS SUMMARY | 2023-08-31 21:10 | External Medical Summary | Summary of Care ---
Author Name Unknown Organization [facility] Address [address] [place] [address] Phone [phone] Care Team Providers Care Lawyers Name Role Phone Lizz BUI MD, Efraín León Primary Care Provider [phone] Reason for Referral * Evaluate & Treat - Unlimited Visits (Within 10 days (routine)) - Pending Review Specialty Diagnoses / Procedures Referred By Toshia marino Referred To Contact Pharmacist / Pharmacy Diagnoses Type 2 diabetes mellitus with hemoglobin A1c goal of less than 8.0% ([facility]) Efraín Zamudio III, MD [address] [place] [id number] Referral ID Status Reason Start Date Expiration Date Visits Requested Visits Authorized [id number] Pending Review Specialty Services Required 04/20/2023 99 99 Question Answer Referral Priority Within 10 days (routine) Where should this appointment be scheduled? [facility] Referring Provider Role: Primary Care Reason for Referral: DM Target A1c: < 8 Comments Pharmacist Medication Therapy Management: Minimum frequency patient should be seen in person for medication management: as appropriate per clinical condition and patient status By my signature, I understand that my patient Dann Carcamo will have his medication therapy managed by the [facility] Medication Therapy Disease Management Clinic ([facility]) per established policies, procedures, and protocols. I also certify that this referral may serve as an initiation of service for the management of drug therapy in the above noted patient. [facility] providers will be responsible for scheduling patient visits, obtaining appropriate laboratory studies, and adjusting medication management therapy per patient's need, in addition to those roles spelled out in the clinic policy, procedures, and drug management protocols. I understand that the service provided by the [facility] is voluntary and have informed patient that they can refuse the service at their discretion. I am aware that the [facility] Clinic will provide me with a copy of the patient encounter via my [employer] Platform. I authorize the [facility] to carry out these activities on my behalf. I consider this program to be a necessary part of the patient's medical care. Efraín Zamudio III, MD Reason for Visit * Reason Onset Date Comments Medication Refill 04/13/2023 Encounter Details Date Type Department Care Team (Late st Contact Info) Description 04/13/2023 [facility]phone [facility] [place] [address] [facility] [place] [address] Efraín Zamudio III, MD [address] [facility] [place] [address] Medication Refill Allergies Active Allergy Reactions Criticality Noted Date [...] had trouble breathing when he took this. Gabapentin 06/24/2008 Propoxyphene 08/02/2020 Sitagliptin 08/02/2020 Tizanidine Diarrhea Medium 07/23/2020 documented as of this encounter (statuses as of 04/24/2023) Medications Medication Sig Dispensed Refills Start Date [...] times daily 200 Each 11 04/07/2023 Active Zolpidem Tartrate 10 MG Oral Tablet (Ambien) Take 1 Tablet by mouth at bedtime as needed for Sleep. 30 Tablet 0 04/07/2023 Active Gabapentin 400 MG Oral Capsule (Neurontin) Take 1 Capsule by mouth in the morning and 1 Capsule at noon and 1 Capsule before bedtime. 90 Capsule 5 04/07/2023 Active traZODone HCl 50 MG Oral [...] 10 days. 24 Tablet 0 03/16/2023 4 Discontinue d(Refill) documented as of this encounter (statuses as of 04/24/2023) Active Problems Problem Noted Date Diagnosed Date [...] as of this encounter (statuses as of 04/24/2023) Resolved Problems Problem Noted Date Diagnosed Date [...] as of this encounter (statuses as of 04/24/2023) Immunizations Name Administration Dates Next Due COVID-19 [...] encounter Miscellaneous Notes * Telephone Encounter - Shun Faith RPh - 04/24/2023 8:22 AM EST Patient Phone Numbers Spoke to Roddy at 8:23 AM and he was able to get his meter working. I tried to schedule an appointment with him him for MTM but he declined. Patient discharged from clinic. Shun Quiroz RPh, [facility] Clinical Pharmacist Medication Therapy Management Clinic 04/24/2023, 8:23 AM * Telephone Encounter - Janna Dawn LPN - 04/20/2023 5:12 PM EST Please call to schedule. * Telephone Encounter - Efraín Zamudio III, MD - 04/20/2023 7:59 AM EST Yes MTM referral placed * Telephone Encounter - Nina Cunningham RN - 04/19/2023 3:20 PM EST Can he see MTM pharmacist for diabetic education? * Telephone Encounter - Kelly Contreras OSA - 04/16/2023 11:26 AM EST Pt calling back in he got the meter he wants to know how to reset it he has the book but he does not understand it pt would like a call back from pcp * Telephone Encounter - Beatrice Chiang exhibition organiser - 04/16/2023 9:12 AM EST Pt calling to check on status of Glucose Meter. Caller can be reached at [phone] Pt states that the meter that he needs is the [employer] Next One. Thank you, Beatrice Chiang Director [facility] [facility] Central[facility] Clinical Pharmacy Services (CCPS) (Formerly Telepharmacy) 04/16/2023,9:12 AM * Telephone Encounter - Caitie Schafer PA-C - 04/14/2023 12:54 PM EST Given to the wrong provider. I think this goes to [facility] [place]. * Telephone Encounter - Sujatha Luo OSA - 04/14/2023 11:43 AM EST Pt is calling back in regarding the above message. Pt is needing this reader. Please advise * Telephone Encounter - Makayla Vaz OSA - 04/13/2023 10:13 AM EST Patient states he received a glucose meter. Patient states it is not the correct one. It didn't come with a charging cord. Patient is requesting to have the one that he had previously. Patient statesit was in a blue box for $19.99. They gave the person picking up the meter, the wrong one. documented in this encounter Plan of Treatment Upcoming Encounters Date Type Department Care Team (Late st Contact Info) Description 05/03/2023 7:30 AM EST Imaging Radiology [facility] 1st [facility] [address] [place] [address] 06/18/2023 12:20 PM EDT Office Visit Family Practice [facility] [address] [place] [address] Efraín Zamudio III, MD [address] [facility] [place] [address] 09/20/2023 9:00 AM EDT Office Visit Ophthalmology, [facility] [address] [place] [address] Francis Turner, DO [address] [place] [address] Scheduled Procedures Name Priority Associated Diagnoses Date/Ti me COLONOSCOPY FLEXIBLE PROXIMAL DIAGNOSTIC Recall History of colon polyps Scheduled Referrals Name Type Priority Associated Diagnoses Orde r Schedule PHARMACIST MEDS THERAPY MGMT REFERRAL OP Referral Within 10 days (routine) Type 2 diabetes mellitus with hemoglobin A1c goal of less than 8.0% (HCC) Ordered: 04/20/2023 Health Maintenance Due Date Last Done Comments [...] with hemoglobin A1c goal of less than 8.0% ([facility])- Primary documented in this encounter Advance Directives Documents on File Type Date Recorded Patient Turbine Room Attendant Expl anation Advance Directives and Living Will 11/03/2008 ADVANCE DIRECTIVE / LIVING WILL Advance Directives and Living Will 11/03/2008 ADVANCE DIRECTIVE / LIVING WILL Power of Facilities And Grounds Director 11/03/2008 POWER OF A TTORNEY Power of Facilities And Grounds Director 11/03/2008 POWER OF A TTORNEY Power of Facilities And Grounds Director 11/03/2008 POWER OF A TTORNEY Care Teams Lawyers Relationship Specialty Start Date End Date Lizz BUI, Efraín León MD 200 [place] [address] PCP - General Family Medicine 06/24/21 documented as of this encounter
--- OUTSIDE RECORDS SUMMARY | 2023-08-31 21:10 | External Medical Summary | Summary of Care ---
Author Name Unknown Organization [facility] Address [address] [place] [address] Phone [phone] Care Team Providers Care Sole Stitcher Hand Name Role Phone Lizz BUI MD, Efraín León Primary Care Provider [phone] Reason for Visit * Reason Onset Date Comments Medication Question 04/27/2023 FYI 04/27/2023 Encounter Details Date Type Department Care Team (Late st Contact Info) Description 04/27/2023 Telephone Family Practice [facility] 200 [facility] [place] [address] Efraín Zamudio III, MD 200 [place] [address] Medication Question; Allergies Active Allergy Reactions Criticality [...] for Sleep. 30 Tablet 0 04/07/2023 Active traZODone HCl 50 MG Oral [...] before bedtime. 90 Tablet 5 04/30/2023 Active Gabapentin 400 MG Oral Capsule (Neurontin) Take 1 Capsule by mouth in the morning and 1 Capsule at noon and 1 Capsule before bedtime. 90 Capsule 5 04/07/2023 04/30/19 24 Discontinued documented as of this [...] that he is taking for his feet. He has 3 toes cut off on the one foot and the other foot has a bad toenail and it continues to give [place] lot of pain and he needs something stronger. Starts with a tingling sensation and goes to sharp pain. He is currently taking 600 MG of Gabapentin. documented in this encounter Plan of Treatment Upcoming Encounters Date Type Department Care Team (Late st Contact Info) Description 05/03/2023 7:30 AM EST Imaging Radiology [facility] 1st [facility] [address] [place] [address] 06/18/2023 12:20 PM EDT Office [facility] [address] [place] [address] Efraín Zamudio III, MD 200 [facility] [address] [facility] [place] [address] 09/20/2023 9:00 AM EDT Office Visit Ophthalmology, [facility] [address] [place] [address] Francis Turner [place] [address] Scheduled Procedures Name Priority Associated Diagnoses Date/Ti [...] Documents on File Type Date Recorded Patient Councilman Expl anation Advance Directives and Living Will 11/03/2008 ADVANCE DIRECTIVE / LIVING WILL Advance Directives and Living Will 11/03/2008 ADVANCE DIRECTIVE / LIVING WILL Power of Direct Service Provider 11/03/2008 POWER OF A TTORNEY Power of Direct Service Provider 11/03/2008 POWER OF A TTORNEY Power of Direct Service Provider 11/03/2008 POWER OF A TTORNEY Care Teams Sole Stitcher Hand Relationship Specialty Start Date End Date Efraín Zamudio III, MD [address] [place] [address] PCP - General Family Medicine 06/24/21 documented as of this encounter
--- OUTSIDE RECORDS SUMMARY | 2023-08-31 21:10 | External Medical Summary | Summary of Care ---
Author Name Unknown Organization [facility] Address [address] [place] [address] Phone [phone] Care Team Providers Care Label Rewinder Name Role Phone Lizz BUI MD, Efraín León Primary Care Provider [phone] Reason for Visit * Reason Onset Date Comments Referral 04/25/2023 [facility] Discharge ( DM ) Encounter Details Date Type Department Care Team (Late st Contact Info) Description 04/25/2023 Telephone Pharmacy, [facility] 200 [facility] [place] [address] Pharmacist[address], [facility] 200 [facility] [place] [address] Referral ([facility] Discharge ( DM ) ) Allergies Active Allergy Reactions Criticality Noted [...] as of this encounter (statuses as of 04/25/2023) Medications Medication Sig Dispensed Refills Start Date [...] needed (Headache). 24 Tablet 0 04/21/2023 Active documented as of this encounter (statuses as of 04/25/2023) Active Problems Problem Noted Date Diagnosed Date [...] as of this encounter (statuses as of 04/25/2023) Resolved Problems Problem Noted Date Diagnosed Date [...] as of this encounter (statuses as of 04/25/2023) Immunizations Name Administration Dates Next Due COVID-19 [...] encounter Miscellaneous Notes * Telephone Encounter - Amy Forrest PHARM Tech - 04/25/2023 10:58 AM EST Pt declined to schedule. Discharging from [facility] services at this time. Thank you, Amy Forrest Workforce Planner Centralized Clinical Pharmacy Services (CCPS) (formerly Telepharmacy) [phone] 04/25/2023,10:59 AM documented in this encounter Plan of Treatment Upcoming Encounters Date Type Department Care Team (Late st Contact Info) Description 05/03/2023 7:30 AM EST Imaging Radiology [facility] 1st [facility] 132 [facility] [place] [id number] 06/18/2023 12:20 PM EDT Office Visit Family Practice [place] [address] [place] [address] Efraín Zamudio III, MD 200 [facility] [place] [address] 09/20/2023 9:00 AM EDT Office Visit Ophthalmology, [facility] [address] [place] [address] Francis Turner, DO 21 [facility] [place] [address] Scheduled Procedures Name Priority Associated Diagnoses Date/Ti [...] Documents on File Type Date Recorded Patient Auto Fleet Maintenance Manager Expl anation Advance Directives and Living Will 11/03/2008 ADVANCE DIRECTIVE / LIVING WILL Advance Directives and Living Will 11/03/2008 ADVANCE DIRECTIVE / LIVING WILL Power of Manager Internet 11/03/2008 POWER OF A TTORNEY Power of Manager Internet 11/03/2008 POWER OF A TTORNEY Power of Manager Internet 11/03/2008 POWER OF A TTORNEY Care Teams Label Rewinder Relationship Specialty Start Date End Date Efraín Zamudio III, MD 200 [place] [address] PCP - General Family Medicine 06/24/21 documented as of this encounter
--- OUTSIDE RECORDS SUMMARY | 2023-08-31 21:10 | External Medical Summary | Summary of Care ---
Author Name Unknown Organization [facility] Address [address] [place] [address] Phone [phone] Care Team Providers Care It Instructor Name Role Phone Lizz BUI MD, Efraín León Primary Care Provider [phone] Reason for Visit * Reason Onset Date Comments Advice 04/23/2023 Insurance covera ge questions Encounter Details Date Type Department Care Team (Late st Contact Info) Description 04/23/2023 Telephone Family Practice [facility] 200 [facility] [place] [address] Efraín Zamudio III, MD 200 [place] [address] Advice (Insurance coverage questions) Allergies Active Allergy Reactions Criticality Noted Date [...] as of this encounter (statuses as of 04/27/2023) Medications Medication Sig Dispensed Refills Start Date [...] as of this encounter (statuses as of 04/27/2023) Active Problems Problem Noted Date Diagnosed Date [...] as of this encounter (statuses as of 04/27/2023) Resolved Problems Problem Noted Date Diagnosed Date [...] as of this encounter (statuses as of 04/27/2023) Immunizations Name Administration Dates Next Due COVID-19 [...] Telephone Encounter - Caleb Tran OSA - 04/23/2023 11:38 AM EST Patient is concerned about his coverage and would like to speak with a Industrial Education Teacher. He hasquestions regarding other medication bills as well. Patient was transferred to Cilnical Scientist Rosa Hancock's voicemail. She did not machine pecan picker when I first called. documented in this encounter Plan of Treatment Upcoming Encounters Date Type Department Care Team (Late st Contact Info) Description 05/03/2023 7:30 AM EST Imaging Radiology [facility] 1st [facility] 132 [facility] [place] [address] 06/18/2023 12:20 PM EDT Office Visit Family Practice [place] [address] [place] [address] LizzEfraín almodovar III, MD [address] [facility] [place] [address] 09/20/2023 9:00 AM EDT Office Visit Ophthalmology, [address] [place] [address] Francis Turner, DO [facility] [place] [address] Scheduled Procedures Name Priority Associated Diagnoses Date/Ti [...] Documents on File Type Date Recorded 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
--- OUTSIDE RECORDS SUMMARY | 2023-08-31 21:10 | External Medical Summary | Summary of Care ---
Author Name Unknown Organization [facility] Address [address] [place] [address] Phone [phone] Care Team Providers Care Tooth Inspector Name Role Phone Lizz BUI MD, Efraín León Primary Care Provider [phone] Reason for Visit * Reason Onset Date Comments Advice 04/19/2023 Encounter Details Date Type Department Care Team (Late st Contact Info) Description 04/19/2023 Telephone Family Practice [facility] 200 [facility] [place] [address] Efraín Zamudio III, MD 200 [place] [address] Advice Allergies Active Allergy Reactions Criticality Noted [...] encounter Miscellaneous Notes * Telephone Encounter - Taisha Macias OSA - 04/20/2023 4:45 PM EST Pt calling to follow up on medication request below. Please see request. Thank you. * Telephone Encounter - Kadi Ford OSA - 04/20/2023 12:32 PM EST Pt calling back in regarding message below. Pt states he is taking tylenol but it is upsetting his stomach. Pt requesting 600 mg ibuprofen to be called in for him. PT does not have imaging appt until 05/03 and is in pain. Please advise * Telephone Encounter - Layo Pratt OSA - 04/19/2023 12:41 PM EST Pt has had bruises appearing on his thighs with no known injury. They are about the size of a thumb. Pt would like to know what is causing this? Did not want appt. Is also requesting Ibuprofen 600 mg prescription. He's been taking David's, but they give him heartburn. Pt would like call back about bruises at [phone]. documented in this encounter Plan of Treatment Upcoming Encounters Date Type Department Care Team (Late st Contact Info) Description 05/03/2023 7:30 AM EST Imaging Radiology [address] 132 [facility] [place] [address] 06/18/2023 12:20 PM EDT Office Visit Family Practice [facility] 200 [facility] [place] [address] Efraín Zamudio III, MD 200 [facility] [place] [address] 09/20/2023 9:00 AM EDT Office Visit Ophthalmology, [facility] 132 [facility] [place] [address] Francis Turner, DO 21 [facility] [place] [address] Scheduled Procedures Name Priority Associated Diagnoses Date/Ti [...] Documents on File Type Date Recorded Patient Teacher Emotionally Impaired Expl anation Advance Directives and Living Will 11/03/2008 ADVANCE DIRECTIVE / LIVING WILL Advance Directives and Living Will 11/03/2008 ADVANCE DIRECTIVE / LIVING WILL Power of Teletype Telegrapher 11/03/2008 POWER OF A TTORNEY Power of Teletype Telegrapher 11/03/2008 POWER OF A TTORNEY Power of Teletype Telegrapher 11/03/2008 POWER OF A TTORNEY Care Teams Tooth Inspector Relationship Specialty Start Date End Date Efraín Zamudio III, MD [address] [place] [address] PCP - General Family Medicine 06/24/21 documented as of this encounter
--- OUTSIDE RECORDS SUMMARY | 2023-08-31 21:11 | External Medical Summary | Summary of Care ---
Author Name Unknown Organization [facility] Address [address] [place] [address] Phone [phone] Care Team Providers Care Collar Baster Name Role Phone Lizz BUI MD, Efraín León Primary Care Provider [phone] Reason for Visit * Reason Onset Date Comments Advice 01/19/2023 Encounter Details Date Type Department Care Team (Late st Contact Info) Description 01/19/2023 Telephone Family Practice [facility] 200 [facility] [place] [address] Efraín Zamudio III, MD [address] [place] [address] Advice Allergies Active Allergy Reactions Criticality Noted [...] as of this encounter (statuses as of 04/20/2023) Medications Medication Sig Dispensed Refills Start Date [...] for Anxiety. 21 Tablet 0 3 Active Contour Next Monitor [...] Strip 5 2 04/07/19 24 Discontinued(Ref ill) Gabapentin 100 MG Oral Capsule (Neurontin) Take 1 Capsule by mouth in the morning and 1 Capsule at noon and 1 Capsule before bedtime. 90 Capsule 0 3 02/06/20 23 Discontinued Rizatriptan Benzoate 10 MG Oral Tablet (Maxalt) TAKE 1 TABLET BY MOUTH NEEDED FOR MIGRAINE. CAN REPEAT DOSE IN 1 HOUR IF NEEDED. MAXIMUM DOSE OF 20mg PER DAY. 10 Tablet 0 3 02/13/20 23 Discontinued(Ref ill) traZODone HCl 50 MG Oral Tablet (Desyrel) Take 1 Tablet by mouth at bedtime. 30 Tablet 2 3 03/14/20 23 Discontinued(Ref ill) Zolpidem Tartrate 10 MG Oral Tablet (Ambien) Take 1 Tablet by mouth at bedtime as needed for Sleep. 30 Tablet 0 3 02/17/20 23 Discontinued(Ref ill) documented as of this encounter (statuses as of 04/20/2023) Active Problems Problem Noted Date Diagnosed Date [...] as of this encounter (statuses as of 04/20/2023) Resolved Problems Problem Noted Date Diagnosed Date [...] as of this encounter (statuses as of 04/20/2023) Immunizations Name Administration Dates Next Due COVID-19 [...] Telephone Encounter - Rosaline Ojeda LPN - 01/23/2023 1:34 PM EDT Called and spoke with pt. Pt described "floaters" in his vision. Not there all the time. Does not have an eye doctor - states that he went to the vision center at [facility] and they wanted $79 for an eye exam. States that he is on a fixed income & does not have that kind of money * Telephone Encounter - Rosaline Ojeda LPN - 01/23/2023 9:52 AM EDT Attempted to call pt. Mailbox is full - unable to leave message * Telephone Encounter - Efraín Zamudio III, MD - 01/23/2023 8:51 AM EDT Sounds as if this should be checked does he have an eye doctor if not could start with us * Telephone Encounter - Akua Pleitez CMA - 01/19/2023 3:35 PM EDT Patient requesting call from provider to discuss concerns with white phil on his eyes, please call to help documented in this encounter Plan of Treatment Upcoming Encounters Date Type Department Care Team (Late st Contact Info) Description 05/03/2023 7:30 AM EST Imaging Radiology [facility] 1st [facility] [address] [place] [address] 06/18/2023 12:20 PM EDT Office Visit Family Practice [place] [facility] [address] [place] [address] Efraín Zamudio III, MD [address] [place] [address] 09/20/2023 9:00 AM EDT Office Visit Ophthalmology, [facility] 132 [facility] [place] [address] Francis Turner, DO [address] [facility] [place] [address] Scheduled Procedures Name Priority Associated Diagnoses Date/Ti [...] Documents on File Type Date Recorded Patient Color Grinder Expl anation Advance Directives and Living Will 11/03/2008 ADVANCE DIRECTIVE / LIVING WILL Advance Directives and Living Will 11/03/2008 ADVANCE DIRECTIVE / LIVING WILL Power of Core Blower 11/03/2008 POWER OF A TTORNEY Power of Core Blower 11/03/2008 POWER OF A TTORNEY Power of Core Blower 11/03/2008 POWER OF A TTORNEY Care Teams Collar Baster Relationship Specialty Start Date End Date Efraín Zamudio III, MD 200 [place] [address] PCP - General Family Medicine 06/24/21 documented as of this encounter
--- OUTSIDE RECORDS SUMMARY | 2023-08-31 21:11 | External Medical Summary | Summary of Care ---
Author Name Unknown Organization [facility] Address [address] [place] [address] Phone [phone] Care Team Providers Care Portfolio Architect Name Role Phone Lizz BUI MD, Efraín León Primary Care Provider [phone] Reason for Visit * Reason Onset Date Comments Medication Refill 04/13/2023 Encounter Details Date Type Department Care Team (Late st Contact Info) Description 04/13/2023 Telephone Family Practice [facility] 200 [facility] [place] [address] Efraín Zamudio III, MD [address] [place] [address] Medication Refill Allergies Active Allergy Reactions Criticality [...] as of this encounter (statuses as of 04/21/2023) Medications Medication Sig Dispensed Refills Start Date [...] as of this encounter (statuses as of 04/21/2023) Active Problems Problem Noted Date Diagnosed Date [...] as of this encounter (statuses as of 04/21/2023) Resolved Problems Problem Noted Date Diagnosed Date [...] as of this encounter (statuses as of 04/21/2023) Immunizations Name Administration Dates Next Due COVID-19 [...] Miscellaneous Notes * Telephone Encounter - Maris Hyatt OSA - 04/21/2023 8:25 AM EST Pt calling in would like his Ibuprofen sent to [facility] he is completely out of medication. * Telephone Encounter - Agata Bolden LPN - 04/13/2023 9:24 AM EST I called the patient and LMOM for him to return the call to the office. When he returns the call please make him aware that his prescription refills have been sent into [facility] on 04/09/2023 and are ready to be picked up. documented in this encounter Plan of Treatment Upcoming Encounters Date Type Department Care Team (Late st Contact Info) Description 05/03/2023 7:30 AM EST Imaging Radiology [facility] 1st [facility] 132 [facility] [place] [id number] 06/18/2023 12:20 PM EDT Office Visit Family Practice [place] [address] [place] [address] Efraín Zamudio III, MD [address] [place] [address] 09/20/2023 9:00 AM EDT Office Visit Ophthalmology, [facility] 132 [facility] [place] [address] Francis Turner, DO [address] [facility] [place] [address] Scheduled Procedures Name Priority Associated Diagnoses Date/Ti [...] Documents on File Type Date Recorded 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
--- OUTSIDE RECORDS SUMMARY | 2023-08-31 21:11 | External Medical Summary | Summary of Care ---
Author Name Unknown Organization [facility] Address [address] [place] [address] Phone [phone] Care Team Providers Care Advanced Solutions Architect Name Role Phone Lizz BUI MD, Efraín León Primary Care Provider [phone] Reason for Referral * Evaluate & Treat - Unlimited Visits (Within 10 days (routine)) - Pending Review Specialty Diagnoses / Procedures Referred By Toshia marino Referred To Contact Pharmacist / Pharmacy Diagnoses Type 2 diabetes mellitus with hemoglobin A1c goal of less than 8.0% ([facility]) Efraín Zamudio III, MD [address] [place] [address] Referral ID Status Reason Start Date Expiration Date Visits Requested Visits Authorized [id number] Pending Review Specialty Services Required 04/20/2023 99 99 Question Answer Referral Priority Within 10 days (routine) Where should this appointment be scheduled? [facility] Referring Provider Role: Primary Care Reason for Referral: DM Target A1c: < 8 Comments Pharmacist Medication Therapy Management: Minimum frequency patient should be seen in person for medication management: as appropriate per clinical condition and patient status By my signature, I understand that my patient Dann Carcamo will have his medication therapy managed by the [facility] Medication Therapy Disease Management Clinic ([facility]) per established policies, procedures, and protocols. I also certify that this referral may serve as an initiation of service for the management of drug therapy in the above noted patient. [facility] providers will be responsible for scheduling patient visits, obtaining appropriate laboratory studies, and adjusting medication management therapy per patient's need, in addition to those roles spelled out in the clinic policy, procedures, and drug management protocols. I understand that the service provided by the [facility] is voluntary and have informed patient that they can refuse the service at their discretion. I am aware that the [facility] Clinic will provide me with a copy of the patient encounter via my [employer]. I authorize the [facility] to carry out these activities on my behalf. I consider this program to be a necessary part of the patient's medical care. Efraín Zamudio III, MD Reason for Visit * Reason Onset Date Comments Medication Refill 04/13/2023 Encounter Details Date Type Department Care Team (Late st Contact Info) Description 04/13/2023 [facility]phone [facility] [place] [address] [facility] [place] [address] Efraín Zamudio III, MD [address] [facility] [place] [address] Medication Refill Allergies Active Allergy Reactions Criticality [...] pcp * Telephone Encounter - Beatrice Chiang PHARM Tech - 04/16/2023 9:12 AM EST Pt calling to check on status of Glucose Meter. Caller can be reached at [phone] Pt states that the meter that he needs is the Contour Next One. Thank you, Beatrice Chiang Engagement Mgr I [facility] ([facility]) (Formerly Telepharmacy) 04/16/2023,9:12 AM * Telephone Encounter - Caitie Schafer PA-C - 04/14/2023 12:54 PM EST Given to the wrong provider. I think this goes to Person. * Telephone Encounter - Sujatha Luo OSA [...] Description 05/03/2023 7:30 AM EST Imaging Radiology [facility] 1st [facility] [address] [place] [address] 06/18/2023 12:20 PM EDT [facility] [place] [address] [place] [address] Efraín Zamudio III, MD [address] [place] [address] 09/20/2023 9:00 AM EDT Office Visit Ophthalmology, [facility] 132 [facility] [place] [address] Francis Turner, DO [address] [facility] [place] [address] Scheduled Procedures Name Priority Associated Diagnoses Date/Ti [...] hemoglobin A1c goal of less than 8.0% ([facility])- Primary documented in this encounter Advance Directives Documents on File Type Date Recorded Patient Cook Barbecue Expl anation Advance Directives and Living Will 11/03/2008 ADVANCE DIRECTIVE / LIVING WILL Advance Directives and Living Will 11/03/2008 ADVANCE DIRECTIVE / LIVING WILL Power of Wilton Weaver 11/03/2008 POWER OF A TTORNEY Power of [place] Weaver 11/03/2008 POWER OF A TTORNEY Power of [place] Weaver 11/03/2008 POWER OF A TTORNEY Care Teams Advanced Solutions Architect Relationship Specialty Start Date End Date Efraín Zamudio III, MD [address] [place] [address] PCP - General Family Medicine 06/24/21 documented as of this encounter
--- OUTSIDE RECORDS SUMMARY | 2023-08-31 21:11 | External Medical Summary | Summary of Care ---
Author Name Unknown Organization [facility] Address [address] [place] [address] Phone [phone] Care Team Providers Care Divinity Teacher Name Role Phone Lizz BUI MD, Efraín León Primary Care Provider [phone] Reason for Referral * Evaluate & Treat - Unlimited Visits (Within 10 days (routine)) - Pending Review Specialty Diagnoses / Procedures Referred By Toshia marino Referred To Contact Pharmacist / Pharmacy Diagnoses Type 2 diabetes mellitus with hemoglobin A1c goal of less than 8.0% ([facility]) Efraín Zamudio III, MD [address] [place] [address] Referral ID Status Reason Start Date Expiration Date Visits Requested Visits Authorized [id number] Pending Review Specialty Services Required 04/20/2023 99 99 Question Answer Referral Priority Within 10 days (routine) Where should this appointment be scheduled? [facility] Referring Provider Role: Primary Care Reason for Referral: DM Target A1c: < 8 Comments Pharmacist Medication Therapy Management: Minimum frequency patient should be seen in person for medication management: as appropriate per clinical condition and patient status By my signature, I understand that my patient Dann Carcamo will have his medication therapy managed by the [facility] Medication Therapy Disease Management Clinic ([facility]) per established policies, procedures, and protocols. I also certify that this referral may serve as an initiation of service for the management of drug therapy in the above noted patient. [facility] providers will be responsible for scheduling patient visits, obtaining appropriate laboratory studies, and adjusting medication management therapy per patient's need, in addition to those roles spelled out in the clinic policy, procedures, and drug management protocols. I understand that the service provided by the [facility] is voluntary and have informed patient that they can refuse the service at their discretion. I am aware that the [facility] Clinic will provide me with a copy of the patient encounter via my [employer]. I authorize the [facility] to carry out these activities on my behalf. I consider this program to be a necessary part of the patient's medical care. Efraín Zamudio III, MD Reason for Visit * Reason Onset Date Comments Medication Refill 04/13/2023 Encounter Details Date Type Department Care Team (Late st Contact Info) Description 04/13/2023 [facility]phone [facility] [place] 200 [place] [address] Efraín Zamudio III, MD 200 [facility] [place] [address] Medication Refill Allergies Active Allergy Reactions Criticality [...] 04/19/2023 3:20 PM EST Can he see [place] pharmacist for diabetic education? * Telephone Encounter - Kelly Contreras OSA - 04/16/2023 11:26 AM EST Pt calling back in he got the meter he wants to know how to reset it he has the book but he does not understand it pt would like a call back from pcp * Telephone Encounter - Beatrice Chiang route rider - 04/16/2023 9:12 AM EST Pt calling to check on status of Glucose Meter. Caller can be reached at [phone] Pt states that the meter that he needs is the Contour Next One. Thank you, Beatrice Chiang Log Rafter I [facility] ([facility]) (Formerly Telepharmacy) 04/16/2023,9:12 AM * Telephone Encounter - Caitie Schafer PA-C - 04/14/2023 12:54 PM EST Given to the wrong provider. I think this goes to Lizz. * Telephone Encounter - Sujatha Luo OSA [...] Description 05/03/2023 7:30 AM EST Imaging Radiology [address] 132 [facility] [place] [address] 06/18/2023 12:20 PM EDT Office Visit Family Practice [facility] 200 [facility] [place] [address] Efraín Zamudio III, MD 200 [facility] [place] [address] 09/20/2023 9:00 AM EDT Office Visit Ophthalmology, [facility] [address] [place] [address] Francis Turner DO 21 [facility] [place] [address] Scheduled Procedures Name Priority Associated Diagnoses Date/Ti me COLONOSCOPY FLEXIBLE PROXIMAL DIAGNOSTIC Recall History of colon polyps Scheduled Referrals Name Type Priority Associated Diagnoses Orde r Schedule PHARMACIST MEDS THERAPY MGMT REFERRAL OP Referral Within 10 days (routine) Type 2 diabetes mellitus with hemoglobin A1c goal of less than 8.0% ([facility]) Ordered: 04/20/2023 Health Maintenance Due Date Last [...] hemoglobin A1c goal of less than 8.0% ([facility])- Primary documented in this encounter Advance Directives Documents on File Type Date Recorded Patient Car Attendant Expl anation Advance Directives and Living Will 11/03/2008 ADVANCE DIRECTIVE / LIVING WILL Advance Directives and Living Will 11/03/2008 ADVANCE DIRECTIVE / LIVING WILL Power of Steam Frame Operator 11/03/2008 POWER OF A TTORNEY Power of Steam Frame Operator 11/03/2008 POWER OF A TTORNEY Power of Steam Frame Operator 11/03/2008 POWER OF A TTORNEY Care Teams Divinity Teacher Relationship Specialty Start Date End Date Efraín Zamudio III, MD [address] [place] [address] PCP - General Family Medicine 06/24/21 documented as of this encounter
--- OUTSIDE RECORDS SUMMARY | 2023-08-31 21:11 | External Medical Summary | Summary of Care ---
Author Name Unknown Organization [facility] Address [address] [place] [address] Phone [phone] Care Team Providers Care Production Scheduler Name Role Phone Lizz BUI MD, Efraín León Primary Care Provider [phone] Reason for Visit * Reason Onset Date Comments Medication Refill 04/13/2023 Encounter Details Date Type Department Care Team (Late st Contact Info) Description 04/13/2023 Telephone Family Practice [facility] 200 [place] [address] Efraín Zamudio III, MD 200 [place] [address] Medication Refill Allergies Active Allergy Reactions Criticality [...] as of this encounter (statuses as of 04/13/2023) Medications Medication Sig Dispensed Refills Start Date [...] as of this encounter (statuses as of 04/13/2023) Active Problems Problem Noted Date Diagnosed Date [...] as of this encounter (statuses as of 04/13/2023) Resolved Problems Problem Noted Date Diagnosed Date [...] as of this encounter (statuses as of 04/13/2023) Immunizations Name Administration Dates Next Due COVID-19 [...] his prescription refills have been sent into [facility] [place] on 04/09/2023 and are ready to be picked up. documented in this encounter Plan of Treatment Upcoming Encounters Date Type Department Care Team (Late st Contact Info) Description 05/03/2023 7:30 AM EST Imaging Radiology [address] [place] [address] 06/18/2023 12:20 PM EDT Office Visit Family Practice [facility] [address] [place] [address] Efraín Zamudio III, MD [address] [place] [address] Scheduled Procedures Name Priority Associated Diagnoses Date/Ti [...] Documents on File Type Date Recorded Patient Culinary Instructor Expl anation Advance Directives and Living Will 11/03/2008 ADVANCE DIRECTIVE / LIVING WILL Advance Directives and Living Will 11/03/2008 ADVANCE DIRECTIVE / LIVING WILL Power of Drilling Engineer 11/03/2008 POWER OF A TTORNEY Power of Drilling Engineer 11/03/2008 POWER OF A TTORNEY Power of Drilling Engineer 11/03/2008 POWER OF A TTORNEY Care Teams Production Scheduler Relationship Specialty Start Date End Date Efraín Zamudio III, MD [address] [place] [address] PCP - General Family Medicine 06/24/21 documented as of this encounter
--- OUTSIDE RECORDS SUMMARY | 2023-08-31 21:11 | External Medical Summary | Summary of Care ---
Author Name Unknown Organization [facility] Address [address] [place] [address] Phone [phone] Care Team Providers Care Commander Internal Affairs Name Role Phone Lizz BUI MD, Efraín León Primary Care Provider [phone] Reason for Visit * Reason Onset Date Comments Advice 04/09/2023 Referral 04/09/2023 MRI request Encounter Details Date Type Department Care Team (Late st Contact Info) Description 04/09/2023 Telephone Family Practice [facility] [place] 200 [facility] [place] [address] Efraín Zamudio III, MD 200 [place] [address] Advice; Referral (MRI request) Allergies Active Allergy Reactions Criticality Noted Date [...] as of this encounter (statuses as of 04/19/2023) Medications Medication Sig Dispensed Refills Start Date [...] for pain 100 g 1 01/21/2023 4 Discontinue d(Refill) documented as of this encounter (statuses as of 04/19/2023) Active Problems Problem Noted Date Diagnosed Date [...] as of this encounter (statuses as of 04/19/2023) Resolved Problems Problem Noted Date Diagnosed Date [...] as of this encounter (statuses as of 04/19/2023) Immunizations Name Administration Dates Next Due COVID-19 [...] Telephone Encounter - Airam Cain OSA - 04/19/2023 3:22 PM EST Refaxed the referral for them to call pt to schedule * Telephone Encounter - Nina Cunningham RN - 04/19/2023 3:19 PM EST Can you schedule appt for pt with [place] for hydrotherapy? * Telephone Encounter - Efraín Zamudio III, MD - 04/12/2023 10:28 AM EST Check with physical therapy please * Telephone Encounter - Puja Mckeon LPN - 04/12/2023 8:52 AM EST Patient returned call. Informed of message. Verbalized understanding. Generic tylenol from the [employer] store There is vein in right thigh that pops out. right lower back pain where fusion was there is a lump at the top of the fusion. He has MRI scheduled for 05/03 He never heard anything from [place] about starting therapy. He indicated that it was to be starteddecember but he has never heard anything. * Telephone Encounter - Yuli Carpio OSA - 04/12/2023 8:50 AM EST Reason for patient's call: pt returning call Caller was transferred to [place] at the nurse line. * Telephone Encounter - Nina Cunningham RN - 04/12/2023 8:47 AM EST Left message for pt to call back. * Telephone Encounter - Efraín Zamudio III, MD - 04/10/2023 8:24 AM EST Call please what specific [id number] medicines or aggravating is stomach? More information asfar as his back pain 1 side versus the other just in the low back ?radiating down his legs? Often times need several weeks of physical therapy before insurance will consider paying for an MRI is thispossible * Telephone Encounter - Caleb Tran OSA - 04/09/2023 1:52 PM EST States he received his meter. Patient states he cannot keep taking these otc medications due to hisstomach pains and is requesting an MRI for his back, stating the pain is getting worse. Mostly lower back where the fusion was completed. * Telephone Encounter - Puja Mckeon LPN - 04/09/2023 1:35 PM EST Called pt. Inform him the order where sent today. * Telephone Encounter - Brittney Gillis OSA - 04/09/2023 9:41 AM EST The patient is requesting his glucose meter, so that he can test his blood sugar levels. The patient is requesting a call back when the order is sent in. The call back number is: [phone]. The patient is requesting for the meter to be sent over to the pharmacy ([facility]) by this Sunday. documented in this encounter Plan of Treatment Upcoming Encounters Date Type Department Care Team (Late st Contact Info) Description 05/03/2023 7:30 AM EST Imaging Radiology [address] 132 [facility] [place] [address] 06/18/2023 12:20 PM EDT Office Visit Family Practice [facility] 200 [facility] [place] [address] Efraín Zamudio III, MD 200 [facility] [place] [address] 09/20/2023 9:00 AM EDT Office Visit Ophthalmology, [facility] 132 [facility] [place] [address] Francis Turner DO [facility] [place] [address] Scheduled Procedures Name Priority Associated Diagnoses Date/Ti [...] Documents on File Type Date Recorded 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
--- OUTSIDE RECORDS SUMMARY | 2023-08-31 21:11 | External Medical Summary | Summary of Care ---
Author Name Unknown Organization [facility] Address [address] [place] [address] Phone [phone] Care Team Providers Care Derrick Car Operator Name Role Phone Lizz BUI MD, Efraín León Primary Care Provider [phone] Reason for Visit * Reason Onset Date Comments Advice 04/12/2023 Trazodone Encounter Details Date Type Department Care Team (Late st Contact Info) Description 04/12/2023 Telephone Family Practice [facility] 200 [place] [address] Efraín Zamudio III, MD 200 [place] [address] Advice (Trazodone ) Allergies Active Allergy Reactions Criticality Noted [...] as of this encounter (statuses as of 04/12/2023) Medications Medication Sig Dispensed Refills Start Date [...] as of this encounter (statuses as of 04/12/2023) Active Problems Problem Noted Date Diagnosed Date [...] as of this encounter (statuses as of 04/12/2023) Resolved Problems Problem Noted Date Diagnosed Date [...] as of this encounter (statuses as of 04/12/2023) Immunizations Name Administration Dates Next Due COVID-19 [...] Miscellaneous Notes * Telephone Encounter - Sujatha Gonsales OSA - 04/12/2023 3:15 PM EST Created in error documented in this encounter Plan of Treatment Upcoming Encounters Date Type Department Care Team (Late st Contact Info) Description 05/03/2023 7:30 AM EST Imaging Radiology [facility] 1st [facility] 132 [facility] [place] [address] 06/18/2023 12:20 PM EDT Office Visit Family Practice [facility] 200 [facility] [place] [address] Efraín Zamudio III, MD 200 [facility] [place] [address] Scheduled Procedures Name Priority Associated Diagnoses Date/Ti [...] Documents on File Type Date Recorded Patient Shared Services Representative Expl anation Advance Directives and Living Will 11/03/2008 ADVANCE DIRECTIVE / LIVING WILL Advance Directives and Living Will 11/03/2008 ADVANCE DIRECTIVE / LIVING WILL Power of Engrosser 11/03/2008 POWER OF A TTORNEY Power of Engrosser 11/03/2008 POWER OF A TTORNEY Power of Engrosser 11/03/2008 POWER OF A TTORNEY Care Teams Derrick Car Operator Relationship Specialty Start Date End Date Efraín Zamudio III, MD [address] [place] [address], [place] [address] PCP - General Family Medicine 06/24/21 documented as of this encounter
--- OUTSIDE RECORDS SUMMARY | 2023-08-31 21:11 | External Medical Summary | Summary of Care ---
Author Name Unknown Organization [facility] Address [address] [place] [address] Phone [phone] Care Team Providers Care Aircraft Power Plant Assembler Name Role Phone Lizz BUI MD, Efraín León Primary Care Provider [phone] Reason for Visit * Reason Onset Date Comments Medication Refill 04/13/2023 Encounter Details Date Type Department Care Team (Late st Contact Info) Description 04/13/2023 Telephone Family Practice [facility] 200 [facility] [place] [address] Efraín Zamudio III, MD 200 [place] [address] Medication Refill Allergies Active Allergy Reactions Criticality [...] to 10 days. 24 Tablet 0 03/16/2023 Discontinue d(Refill) documented as of this encounter [...] in would like his Ibuprofen sent [facility] he is completely out of medication. * Telephone Encounter - Agata Bolden LPN - 04/13/2023 9:24 AM EST I called the patient and LMOM for him to return the call to the office. When he returns the call please make him aware that his [facility] and are ready to be picked up. documented in this encounter Plan of Treatment Upcoming Encounters Date Type Department Care Team (Late st Contact Info) Description 05/03/2023 7:30 AM EST Imaging Radiology [facility] 132 [facility] [place] [address] 06/18/2023 12:20 PM EDT Office Visit [facility] [address] Efraín Zamudio III, MD [address] [place] [address] 09/20/2023 9:00 AM EDT Office Visit Ophthalmology, [facility] [place] [address] [place] [address] Francis Turner, DO [address] [place] [address] Scheduled Procedures Name Priority Associated Diagnoses Date/Ti [...] Documents on File Type Date Recorded Patient Leather Stitcher Expl anation Advance Directives and Living Will 11/03/2008 ADVANCE DIRECTIVE / LIVING WILL Advance Directives and Living Will 11/03/2008 ADVANCE DIRECTIVE / LIVING WILL Power of Speech Therapy Assistant 11/03/2008 POWER OF A TTORNEY Power of Speech Therapy Assistant 11/03/2008 POWER OF A TTORNEY Power of Speech Therapy Assistant 11/03/2008 POWER OF A TTORNEY Care Teams Aircraft Power Plant Assembler Relationship Specialty Start Date End Date Efraín Zamudio III, MD 200 [place] [address] PCP - General Family Medicine 06/24/21 documented as of this encounter
--- OUTSIDE RECORDS SUMMARY | 2023-08-31 21:11 | External Medical Summary | Summary of Care ---
Author Name Unknown Organization [facility] Address [address] [place] [address] Phone [phone] Care Team Providers Care Social Sciences Chair Name Role Phone Lizz BUI MD, Efraín León Primary Care Provider [phone] Reason for Referral * Evaluate & Treat - Unlimited Visits (Within 10 days (routine)) - Pending Review Specialty Diagnoses / Procedures Referred By Toshia marino Referred To Contact Pharmacist / Pharmacy Diagnoses Type 2 diabetes mellitus with hemoglobin A1c goal of less than 8.0% ([facility]) Efraín Zamudio III, MD [address] [place] [id number] Referral ID Status Reason Start Date Expiration Date Visits Requested Visits Authorized [id number] Pending Review Specialty Services Required 04/20/2023 99 99 Question Answer Referral Priority Within 10 days (routine) Where should this appointment be scheduled? [facility] Referring Provider Role: Primary Care Reason for Referral: DM Target A1c: < 8 Comments Pharmacist Medication Therapy Management: Minimum frequency patient should be seen in person for medication management: as appropriate per clinical condition and patient status By my signature, I understand that my patient Dann Carcamo will have his medication therapy managed by the [facility] Medication Therapy Disease Management Clinic ([facility]) per established policies, procedures, and protocols. I also certify that this referral may serve as an initiation of service for the management of drug therapy in the above noted patient. [facility] providers will be responsible for scheduling patient visits, obtaining appropriate laboratory studies, and adjusting medication management therapy per patient's need, in addition to those roles spelled out in the clinic policy, procedures, and drug management protocols. I understand that the service provided by the [facility] is voluntary and have informed patient that they can refuse the service at their discretion. I am aware that the [facility] Clinic will provide me with a copy of the patient encounter via my [employer]. I authorize the [facility] to carry out these activities on my behalf. I consider this program to be a necessary part of the patient's medical care. Efraín Zamudio III, MD Reason for Visit * Reason Onset Date Comments Medication Refill 04/13/2023 Encounter Details Date Type Department Care Team (Late st Contact Info) Description 04/13/2023 [facility]phone [facility] [place] 200 [facility] [place] [address] Efraín Zamudio III, MD 200 [facility] [place] [address] Medication Refill Allergies Active Allergy Reactions Criticality [...] pcp * Telephone Encounter - Beatrice Chiang sprayer hand - 04/16/2023 9:12 AM EST Pt calling to check on status of Glucose Meter. Caller can be reached at [phone] Pt states that the meter that he needs is the [employer]. Thank you, Beatrice Chiang Hop Strainer I [facility] (Formerly [...] Description 05/03/2023 7:30 AM EST Imaging Radiology [facility] 1st [facility] 132 [facility] [place] [address] 06/18/2023 12:20 PM EDT Office Visit Family Practice [facility] [address] [place] [address] Lizz IIIEfraín MD [address] [place] [address] 09/20/2023 9:00 AM EDT Office Visit Ophthalmology, [facility] 132 [facility] [place] [address] Francis Turner, DO 21 [facility] [place] [address] Scheduled Procedures Name Priority Associated Diagnoses Date/Ti [...] hemoglobin A1c goal of less than 8.0% (HCC)- Primary documented in this encounter Advance Directives Documents on File Type Date Recorded Patient Scale Mechanic Expl anation Advance Directives and Living Will 11/03/2008 ADVANCE DIRECTIVE / LIVING WILL Advance Directives and Living Will 11/03/2008 ADVANCE DIRECTIVE / LIVING WILL Power of Lens And Frames Prescription Clerk 11/03/2008 POWER OF A TTORNEY Power of Lens And Frames Prescription Clerk 11/03/2008 POWER OF A TTORNEY Power of Lens And Frames Prescription Clerk 11/03/2008 POWER OF A TTORNEY Care Teams Social Sciences Chair Relationship Specialty Start Date End Date Efraín Zamudio III, MD 200 [facility] [place] [address] PCP - General Family Medicine 06/24/21 documented as of this encounter
--- OUTSIDE RECORDS SUMMARY | 2023-08-31 21:11 | External Medical Summary | Summary of Care ---
Author Name Unknown Organization [facility] Address [address] [place] [address] Phone [phone] Care Team Providers Care Flavor Extractor Name Role Phone Lizz BUI MD, Efraín León Primary Care Provider [phone] Reason for Visit * Reason Onset Date Comments Advice 04/09/2023 Referral 04/09/2023 MRI request Encounter Details Date Type Department Care Team (Late st Contact Info) Description 04/09/2023 Telephone Family Practice [facility] [place] 200 [facility] [place] [address] Efraín Zamudio III, MD 200 [place] [address] Advice; Referral (MRI request) Allergies Active Allergy [...] Can you schedule appt for pt with [place] for hydrotherapy? * Telephone Encounter - Efraín Zamudio III, MD - 04/12/2023 10:28 AM EST Check with physical therapy please * Telephone Encounter - Puja Mckeon LPN - 04/12/2023 8:52 AM EST Patient returned call. Informed of message. Verbalized understanding. Generic tylenol from the [employer] store There is vein in right thigh that pops out. right lower back pain where fusion was there is a lump at the top of the fusion. He has MRI scheduled for 05/03 He never heard anything from [place] about starting therapy. He indicated that it was to be starteddecember but he has never heard anything. * Telephone Encounter - Yuli Carpio OSA - 04/12/2023 8:50 AM EST Reason for patient's call: pt returning call Caller was transferred to [place] at the nurse line. * Telephone Encounter - Nina Cunningham RN - 04/12/2023 8:47 AM EST Left message for pt to call back. * Telephone Encounter - Efraín Zamudio III, MD - 04/10/2023 8:24 AM EST Call please what specific [id number] medicines or aggravating is stomach? More information [...] sent in. The call back number is: [phone]. The patient is requesting for the meter to be sent over to the pharmacy ([facility]) by this Sunday. documented in this encounter Plan of Treatment Upcoming Encounters Date Type Department Care Team (Late st Contact Info) Description 05/03/2023 7:30 AM EST Imaging Radiology [facility] 1st [facility] 132 [facility] [place] [address] 06/18/2023 12:20 PM EDT Office Visit Family Practice [facility] [address] [place] [address] Efraín Zamudio III, MD [address] [place] [address] 09/20/2023 9:00 AM EDT Office Visit Ophthalmology, [facility] [address] [place] [address] Francis Turner, DO [facility] [place] [address] Scheduled Procedures Name Priority Associated Diagnoses Date/Ti [...] Documents on File Type Date Recorded Patient Waiter/Waitress Cabin Class Expl anation Advance Directives and Living Will 11/03/2008 ADVANCE DIRECTIVE / LIVING WILL Advance Directives and Living Will 11/03/2008 ADVANCE DIRECTIVE / LIVING WILL Power of Film Or Tape Librarian 11/03/2008 POWER OF A TTORNEY Power of Film Or Tape Librarian 11/03/2008 POWER OF A TTORNEY Power of Film Or Tape Librarian 11/03/2008 POWER OF A TTORNEY Care Teams Flavor Extractor Relationship Specialty Start Date End Date Efraín Zamudio III, MD 200 [facility] [place] [address] PCP - General Family Medicine 06/24/21 documented as of this encounter
--- OUTSIDE RECORDS SUMMARY | 2023-08-31 21:11 | External Medical Summary | Summary of Care ---
Author Name Unknown Organization [facility] Address [address] [place] [address] Phone [phone] Care Team Providers Care Grill Prep Cook Name Role Phone Lizz BUI MD, Efraín León Primary Care Provider [phone] Reason for Visit * Reason Onset Date Comments Medication Refill 04/13/2023 Encounter Details Date Type Department Care Team (Late st Contact Info) Description 04/13/2023 Refill Family Practice [facility] 200 [facility] [place] [address] Efraín Zamudio III, MD 200 [place] [address] Allergies Active Allergy Reactions Criticality Noted Date [...] encounter Miscellaneous Notes * Addendum Note - Reymundo Sweet LPN - 04/21/2023 9:05 AM ESTAddended by: REYMUNDO SWEET on: 04/21/2023 09:05 AM Modules accepted: Orders * Telephone Encounter - Reymundo Sweet LPN - 04/21/2023 9:04 AM EST Pended refill request. Thank you * Telephone Encounter - Maris Hyatt OSA - 04/21/2023 8:25 AM EST Pt calling in would like his [facility]uprofen sent [facility] he is completely out of medication. * Telephone Encounter - Agata Bolden LPN - 04/13/2023 9:24 AM EST I called the patient and LMOM for him to return the call to the office. When he returns the call please make him aware that his prescription refills have been sent [facility] on 04/09/2023 and are ready to be picked up. documented in this encounter Plan of Treatment Upcoming Encounters Date Type Department Care Team (Late st Contact Info) Description 05/03/2023 7:30 AM EST Imaging Radiology [address] 132 [facility] [place] [address] 06/18/2023 12:20 PM EDT Office Visit Family Practice [facility] 200 [facility] [place] [address] Efraín Zamudio III, MD 200 [facility] [place] [address] 09/20/2023 9:00 AM EDT Office Visit Ophthalmology, [facility] 132 [facility] [place] [address] Francis Turner, DO [address] [facility] [place] [address] Scheduled Procedures Name Priority Associated Diagnoses Date/Ti [...] Documents on File Type Date Recorded Patient Bus Attendant Expl anation Advance Directives and Living Will 11/03/2008 ADVANCE DIRECTIVE / LIVING WILL Advance Directives and Living Will 11/03/2008 ADVANCE DIRECTIVE / LIVING WILL Power of Functional Manager 11/03/2008 POWER OF A TTORNEY Power of Functional Manager 11/03/2008 POWER OF A TTORNEY Power of Functional Manager 11/03/2008 POWER OF A TTORNEY Care Teams Grill Prep Cook Relationship Specialty Start Date End Date Efraín Zamudio III, MD 200 [facility] [place] [address] PCP - General Family Medicine 06/24/21 documented as of this encounter
--- OUTSIDE RECORDS SUMMARY | 2023-08-31 21:11 | External Medical Summary | Summary of Care ---
Author Name Unknown Organization [facility] Address [address] [place] [address] Phone [phone] Care Team Providers Care Pharmaceutical Officer Name Role Phone Lizz BUI MD, Didier León Primary Care Provider [phone] Reason for Visit * Reason Onset Date Comments Other 04/10/2023 Prescription vance nge request Encounter Details Date Type Department Care Team (Late st Contact Info) Description 04/10/2023 Telephone Family Practice [facility] 200 [facility] [place] [address] Didier Huff III, MD [address] [place] [address] Other (Prescription change request) Allergies Active Allergy Reactions Criticality Noted [...] Dx: E11.9 100 Strip 3 04/10/2023 Active Accu-Chek Guide In Vitro Strip (Glucose Blood) Test five times daily for use with multiple daily insulin injections-bef ore all meals, snacks, exercise, and one to two times during the night. Dx: E11.9 100 Strip 3 04/10/2023 4 Discontinue d(Refill) documented as of this [...] encounter Miscellaneous Notes * Telephone Encounter - Dee Dee Ashton CPhT - 04/10/2023 5:14 PM EST Please reroute Rx to [facility]-[address] Pending Prescriptions: Disp Refills Accu-Chek Guide In Vitro Strip (Glucose B*100 St*3 Sig: Test five times daily for use with multiple daily insulin injections-before all meals, snacks, exercise, and one to two times during the night. Dx: E11.9 Signed Prescriptions: Disp Refills Accu-Chek Guide In Vitro Strip (Glucose Bl*100 St*3 Sig: Test five times daily for use with multiple daily insulin injections-before all meals, snacks, exercise, and one to two times during the night. Dx: E11.9 Authorizing Provider: DIDIER HUFF III Accu-Chek Guide w/Device Kit 1 Kit 0 Sig: Use as directed. Authorizing Provider: DIDIER HUFF III Last Visit: 03/14/2023 (in office), 07/15/2019 (telemedicine) 06/18/2023 If no future appointments scheduled, and last appointment is greater than a year ago, please schedule patient for a follow-up appointment Last date the medication was ordered: 04/10/2023 Patient Phone Numbers Labs: Lab Results Component [...] 12/04/2019 01:51 PM * Telephone Encounter - Agata Bolden, KAYLENE - 04/10/2023 10:39 AM EST Pending Prescriptions: Disp Refills Accu-Chek Guide In Vitro Strip (Glucose B*100 St*3 Sig: Test five times daily for use with multiple daily insulin injections-before all meals, snacks, exercise, and one to two times during the night. Dx: E11.9 Accu-Chek Guide w/Device Kit 1 Kit 0 Sig: Use as directed. Last Visit: 03/14/2023 (in office), 07/15/2019 (telemedicine) Next Visit: 06/18/2023 Last date the medication was ordered: New prescription Patient Active Problem List Diagnosis Code Esophageal reflux K21.9 Spinal stenosis of lumbar region without neurogenic claudication M48.061 DYSLIPIDEMIA, GOAL LDL BELOW 100 E78.5 Tobacco use disorder F17.200 Diabetic polyneuropathy ([facility]) E11.42 MEDICATION USE AGREEMENT [id number] Postlaminectomy syndrome M96.1 HTN, goal below 140/90 [...] 11/05/2018 08:59 AM * Telephone Encounter - Neal Tamayo manager of case management - 04/10/2023 10:26 AM EST [facility] pharmacy calling to request new prescriptions be written for "accucheck guide test kit" & "accucheck guide test strips." Please advise and send new scripts to [facility] [address] [place] [address] GABRIELLA BECERRIL. Thank you, Neal Tamayo Bottle Line Worker I [facility] ([facility])(formerly Telepharmacy) 04/10/2023,10:29 AM documented in this encounter Plan of Treatment Upcoming Encounters Date Type Department Care Team (Late st Contact Info) Description 05/03/2023 7:30 AM EST Imaging Radiology [facility] 1st [facility] [address] [place] [address] 06/18/2023 12:20 PM EDT Office Visit Family Practice [facility] 200 [facility] [place] [address] Didier Huff III, MD 200 [facility] [place] [address] Scheduled Procedures Name Priority Associated Diagnoses Date/Ti [...] Documents on File Type Date Recorded Patient Microfiche Camera Operator Expl anation Advance Directives and Living Will 11/03/2008 ADVANCE DIRECTIVE / LIVING WILL Advance Directives and Living Will 11/03/2008 ADVANCE DIRECTIVE / LIVING WILL Power of Conventions Reservationist 11/03/2008 POWER OF A TTORNEY Power of Conventions Reservationist 11/03/2008 POWER OF A TTORNEY Power of Conventions Reservationist 11/03/2008 POWER OF A TTORNEY Care Teams Pharmaceutical Officer Relationship Specialty Start Date End Date Didier Huff III, MD [address] [place] [address] PCP - General Family Medicine 06/24/21 documented as of this encounter
--- OUTSIDE RECORDS SUMMARY | 2023-08-31 21:12 | External Medical Summary | Summary of Care ---
Author Name Unknown Organization [facility] Address [address] [place] [address] Phone [phone] Care Team Providers Care Global Consumer Sector Vice President Name Role Phone Lizz BUI MD, Efraín León Primary Care Provider [phone] Reason for Visit * Reason Onset Date Comments Advice 04/09/2023 Referral 04/09/2023 MRI request Encounter Details Date Type Department Care Team (Late st Contact Info) Description 04/09/2023 Telephone Family Practice [facility] [place] 200 [facility] [place] [address] Efraín Zamudio III, MD 200 [place] [address] Advice; Referral (MRI request) Allergies Active Allergy [...] message. Verbalized understanding. Generic tylenol from the [employer] store There is vein in right thigh that pops out. right lower back pain where fusion was there is a lump at the top of the fusion. He has MRI scheduled for 05/03 He never heard anything from [facility] about starting therapy. He indicated that it [...] 8:24 AM EST Call please what specific zoag-bxk-[id number] medicines or aggravating is stomach? More information [...] sent in. The call back number is: [phone]. The patient is requesting for the meter to be sent over to the pharmacy ([facility]) by this Sunday. documented in this encounter Plan of Treatment Upcoming Encounters Date Type Department Care Team (Late st Contact Info) Description 05/03/2023 7:30 AM EST Imaging Radiology [facility] 1st [facility] [address] [facility] [place] [address] 06/18/2023 12:20 PM EDT Office Visit Family Practice [facility] [place] 200 [facility] [place] [address] Efraín Zamudio III, MD 200 [place] [address] Scheduled Procedures Name Priority Associated Diagnoses Date/Ti [...] Documents on File Type Date Recorded Patient Tightener Expl anation Advance Directives and Living Will 11/03/2008 ADVANCE DIRECTIVE / LIVING WILL Advance Directives and Living Will 11/03/2008 ADVANCE DIRECTIVE / LIVING WILL Power of Mandrel Puller 11/03/2008 POWER OF A TTORNEY Power of Mandrel Puller 11/03/2008 POWER OF A TTORNEY Power of Mandrel Puller 11/03/2008 POWER OF A TTORNEY Care Teams Global Consumer Sector Vice President Relationship Specialty Start Date End Date Efraín Zamudio III, MD 200 [facility] [place] [address] PCP - General Family Medicine 06/24/21 documented as of this encounter
--- OUTSIDE RECORDS SUMMARY | 2023-08-31 21:12 | External Medical Summary | Summary of Care ---
Author Name Unknown Organization [facility] Address [address] [place] [address] Phone [phone] Care Team Providers Care Mental Health Nurse Name Role Phone Lizz BUI MD, Efraín León Primary Care Provider [phone] Reason for Visit * Reason Onset Date Comments Advice 04/09/2023 Referral 04/09/2023 MRI request Encounter Details Date Type Department Care Team (Late st Contact Info) Description 04/09/2023 Telephone Family Practice [facility] [place] 200 [facility] [place] [address] Efraín Zamudio III, MD 200 [place] [address] Advice; Referral (MRI request) Allergies Active Allergy [...] as of this encounter (statuses as of 04/10/2023) Medications Medication Sig Dispensed Refills Start Date [...] as of this encounter (statuses as of 04/10/2023) Active Problems Problem Noted Date Diagnosed Date [...] as of this encounter (statuses as of 04/10/2023) Resolved Problems Problem Noted Date Diagnosed Date [...] as of this encounter (statuses as of 04/10/2023) Immunizations Name Administration Dates Next Due COVID-19 [...] 8:24 AM EST Call please what specific khzx-zgo-vcnlrkq medicines or aggravating is stomach? More information [...] sent in. The call back number is: [phone]. The patient is requesting for the meter to be sent over to the pharmacy ([facility]) by this Sunday. documented in this encounter Plan of Treatment Upcoming Encounters Date Type Department Care Team (Late st Contact Info) Description 06/18/2023 12:20 PM EDT [facility] [place] [address] [facility] [place] [address] Efraín Zamudio III, MD 200 [facility] [place] [address] Scheduled Procedures Name Priority Associated Diagnoses Date/Ti [...] Documents on File Type Date Recorded Patient Print Shop Stenographer Expl anation Advance Directives and Living Will 11/03/2008 ADVANCE DIRECTIVE / LIVING WILL Advance Directives and Living Will 11/03/2008 ADVANCE DIRECTIVE / LIVING WILL Power of Gum Mixer 11/03/2008 POWER OF A TTORNEY Power of Gum Mixer 11/03/2008 POWER OF A TTORNEY Power of Gum Mixer 11/03/2008 POWER OF A TTORNEY Care Teams Mental Health Nurse Relationship Specialty Start Date End Date Efraín Zamudio III, MD 200 [facility] [place] [address] PCP - General Family Medicine 06/24/21 documented as of this encounter
--- OUTSIDE RECORDS SUMMARY | 2023-08-31 21:12 | External Medical Summary | Summary of Care ---
Author Name Unknown Organization [facility] Address [address] [place] [address] Phone [phone] Care Team Providers Care Guidance Director Name Role Phone Lizz BUI MD, Didier León Primary Care Provider [phone] Reason for Visit * Reason Onset Date Comments Other 04/10/2023 Prescription vance nge request Encounter Details Date Type Department Care Team (Late st Contact Info) Description 04/10/2023 Telephone Family Practice [facility] 200 [place] [address] Didier Huff III, MD 200 [place] [address] Other (Prescription change request) Allergies Active Allergy [...] 5:14 PM EST Please reroute Rx to [facility] 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 Brain metastasis C79.31 Small cell lung cancer ([facility]) C34.90 Major depressive disorder, recurrent episode, moderate ([facility]) F33.1 Chronic back pain M54.9, G89.29 Laceration of toe S91.119A Tenosynovitis of left foot M65.9 Atrial fibrillation ([facility]) I48.91 Amputation of toe of right foot ([facility]) S98.131A Type 2 diabetes mellitus with hemoglobin A1c goal of less than 7.5% ([facility]) E11.9 Labs: Lab Results Component Value Date/Time [...] AM * Telephone Encounter - Neal Tamayo convertible power shovel operator - 04/10/2023 10:26 AM EST [facility] pharmacy calling to request new prescriptions be written for "accucheck guide test kit" & "accucheck guide test strips." Please advise and send new scripts to [facility] [address] [place] [address] GABRIELLA BECERRIL. Thank you, Neal Tamayo Power Plant Superintendent I [facility] ([facility])(formerly Telepharmacy) 04/10/2023,10:29 AM documented in this encounter Plan of Treatment Upcoming Encounters Date Type Department Care Team (Late st Contact Info) Description 05/03/2023 7:30 AM EST Imaging Radiology [facility] 1st [facility] [address] [place] [address] 06/18/2023 12:20 PM EDT Office Visit Family [facility] 200 [facility] [place] [address] Didier Huff III, MD 200 [facility] [place] [address] Scheduled Procedures Name Priority Associated Diagnoses Date/Ti [...] Documents on File Type Date Recorded Patient Clinical Audiologist Expl anation Advance Directives and Living Will 11/03/2008 ADVANCE DIRECTIVE / LIVING WILL Advance Directives and Living Will 11/03/2008 ADVANCE DIRECTIVE / LIVING WILL Power of Rn Vascular 11/03/2008 POWER OF A TTORNEY Power of Rn Vascular 11/03/2008 POWER OF A TTORNEY Power of Rn Vascular 11/03/2008 POWER OF A TTORNEY Care Teams Guidance Director Relationship Specialty Start Date End Date Didier Huff III, MD [address] [place] [address] PCP - General Family Medicine 06/24/21 documented as of this encounter
--- OUTSIDE RECORDS SUMMARY | 2023-08-31 21:12 | External Medical Summary | Summary of Care ---
Author Name Unknown Organization [facility] Address [address] [place] [address] Phone [phone] Care Team Providers Care Retort Forker Name Role Phone Lizz BUI MD, Efraín León Primary Care Provider [phone] Reason for Visit * Reason Onset Date Comments Advice 03/28/2023 Encounter Details Date Type Department Care Team (Late st Contact Info) Description 03/28/2023 Telephone Family Practice [facility] 200 [place] [address] Efraín Zamudio III, MD 200 [place] [address] Advice Allergies Active Allergy Reactions Criticality Noted [...] Encounter - Puja Mckeon LPN - 04/12/2023 9:04 AM EST Patient returned call. Informed of message. Verbalized understanding. No further questions. * Telephone Encounter - Nina Cunningham RN - 04/12/2023 8:46 AM EST Left message for pt to call back. * Telephone Encounter - Efraín Zamudio III, MD - 04/02/2023 8:14 AM EST I specifically am not aware of any doctors in [facility] if possible going to [facility] than all his records would be immediately available would be a good idea * Telephone Encounter - Jeannine Darling OSA - 03/28/2023 8:24 AM EST Patient is asking if there is any provider he would recommend in [place] as good as Dr Zamudio. Wouldn't be moving until summer. Patient cn be reached at [phone] documented in this encounter Plan of Treatment Upcoming Encounters Date Type Department Care Team (Late st Contact Info) Description 05/03/2023 7:30 AM EST Imaging Radiology [address] [place] [address] 06/18/2023 12:20 PM EDT Office Visit Family Practice [facility] 200 [facility] [place] [address] Efraín Zamudio III, MD [address] [facility] [place] [address] Scheduled Procedures Name Priority Associated Diagnoses Date/Ti [...] Documents on File Type Date Recorded Patient Speech And Language Assistant Expl anation Advance Directives and Living Will 11/03/2008 ADVANCE DIRECTIVE / LIVING WILL Advance Directives and Living Will 11/03/2008 ADVANCE DIRECTIVE / LIVING WILL Power of Music Department Chair 11/03/2008 POWER OF A TTORNEY Power of Music Department Chair 11/03/2008 POWER OF A TTORNEY Power of Music Department Chair 11/03/2008 POWER OF A TTORNEY Care Teams Retort Forker Relationship Specialty Start Date End Date Efraín Zamudio III, MD 200 [place] [address] PCP - General Family Medicine 06/24/21 documented as of this encounter
--- OUTSIDE RECORDS SUMMARY | 2023-08-31 21:12 | External Medical Summary | Summary of Care ---
Author Name Unknown Organization [facility] Address [address] [place] [address] Phone [phone] Care Team Providers Care Informatics Physician Liaison Name Role Phone Lizz BUI MD, Efraín León Primary Care Provider [phone] Reason for Visit * Reason Onset Date Comments Advice 03/30/2023 Encounter Details Date Type Department Care Team (Late st Contact Info) Description 03/30/[address] [facility] 200 [facility] [place] [address] Efraín Zamudio III, MD 200 [place] [address] Advice Allergies Active Allergy Reactions Criticality Noted [...] for Sleep. 30 Tablet 0 04/07/2023 Active Contour Next Monitor w/Device KitIndications:Diabe tic polyneuropathy associated with type 2 diabetes mellitus (HCC),Diabetes type 2, uncontrolled Use as directed . 1 Kit 0 12/16/2021 4 Discontinue d(Refill) LancetsIndications:D iabetic polyneuropathy associated with type 2 diabetes mellitus (HCC) Use as directed 5 times daily 200 Each 11 12/16/2021 4 Discontinue d(Refill) Contour Next Test In Vitro Strip (Glucose Blood)Indications:Di abetic polyneuropathy associated with type 2 diabetes mellitus (HCC) Test five times daily for use with multiple daily insulin injections-bef ore all meals, snacks, exercise, and one to two times during the night. Dx: E11.9 200 Strip 5 12/16/2021 4 Discontinue d(Refill) Diclofenac Sodium 1 % External Gel (Voltaren) Apply topically to affected area 4 times a day. 2 grams/ dose Apply to knee as needed for pain 100 g 1 01/21/2023 4 Discontinue d(Refill) traZODone HCl 50 MG Oral Tablet (Desyrel) Take 1 Tablet by mouth at bedtime. 30 Tablet 2 03/14/2023 4 Discontinue d(Refill) Zolpidem Tartrate 10 MG Oral Tablet (Ambien) Take 1 Tablet by mouth at bedtime as needed for Sleep. 30 Tablet 0 03/14/2023 4 Discontinue d(Refill) Gabapentin 400 MG Oral Capsule (Neurontin) Take 1 Capsule by mouth in the morning and 1 Capsule at noon and 1 Capsule before bedtime. 90 Capsule 5 03/14/2023 4 Discontinue d(Refill) Contour Next Monitor w/Device KitIndications:Diabe tic polyneuropathy associated with type 2 diabetes mellitus (HCC) Use as directed. 1 Kit 0 04/07/2023 4 Discontinue d(Medicatio n List Clean Up) Contour Next Test In Vitro Strip (Glucose Blood)Indications:Di abetic polyneuropathy associated with type 2 diabetes mellitus (HCC) Test five times daily for use with multiple daily insulin injections-bef ore all meals, snacks, exercise, and one to two times during the night. Dx: E11.9 200 Strip 5 04/07/2023 4 Discontinue d(Medicatio n List Clean Up) [...] Encounter - Puja Mckeon LPN - 04/12/2023 9:03 AM EST Patient returned call. Informed of message. Verbalized understanding. He is waiting until he get MRI completed 05/03 * Telephone Encounter - Nina Cunningham RN - 04/12/2023 8:46 AM EST Left message for pt to call back. * Telephone Encounter - Efraín Zamudio III, MD - 04/07/2023 10:23 AM EST Would be best to make an appointment * Telephone Encounter - Maris Pimentel LPN - 04/06/2023 11:12 AM EST Patient calling back stated that he had a couple more episodes since 03/29/2023. He stated that it happened 3 times yesterday after he got groceries. He is getting nauseous with the dizziness now. He stated that he gets the double vision and dizziness feels like floating not circular motion. No ringing in the ears/no numbness or tingling/no confusion/no weakness Episodes seem to last 10-30 seconds, seems to happen when he goes to sit down--He stated that when he is up does not happen and when he is laying down it does not happen. He stated that his back has been painful since the US was done. He stated that he has not been to a regular eye doctor since the . He had a diabetic eye exam last month in the office. He has not been able to afford as his insurance does not pay for the exam. He stated that he may need to be put on another antibiotic as when he sucks on his tooth (left sideof his mouth), he gets this burning gross taste. He stated that tooth broke off last week. Patient stated that he needs a new glucometer, strips, lancets (Uses Contour Next)--Pended for approval Patient requesting refill on Ambien as he has been having difficulty with sleep Last refill 03/14/2023. Pended for approval. Please advise. Pharmacy selected. * Telephone Encounter - Helena Calles OSA - 04/06/2023 11:08 AM EST Pt calling in asking what the Dr said regarding message. * Telephone Encounter - Efraín Zamudio III, MD - 04/02/2023 8:12 AM EST Call please has this recurred does have double vision is he just lightheaded is spinning like a ymxql-jm-azqqu who is his eye doctor when where his eyes last checked? * Telephone Encounter - Geeta Grayson OSA - 03/30/2023 4:28 PM EST Patient called to state that he has experienced some blurriness in both eyes and dizziness that happened for about 2-3 min after the US at [facility] on 03/29/23. Pt stated that he had another episode today and was a bit concern and wanted to speak to the Dr. Pt can be reached at [phone] documented in this encounter Plan of Treatment Upcoming Encounters Date Type Department Care Team (Late st Contact Info) Description 05/03/2023 7:30 AM EST Imaging Radiology [address] [facility] [place] [address] 06/18/2023 12:20 PM EDT Office Visit Family Practice [facility] 200 [facility] [place] [address] Efraín Zamudio III, MD 200 [facility] [place] [address] Scheduled Procedures Name Priority Associated Diagnoses Date/Ti [...] Documents on File Type Date Recorded Patient Production Machine Tender Expl anation Advance Directives and Living Will 11/03/2008 ADVANCE DIRECTIVE / LIVING WILL Advance Directives and Living Will 11/03/2008 ADVANCE DIRECTIVE / LIVING WILL Power of Drawer Liner 11/03/2008 POWER OF A TTORNEY Power of Drawer Liner 11/03/2008 POWER OF A TTORNEY Power of Drawer Liner 11/03/2008 POWER OF A TTORNEY Care Teams Informatics Physician Liaison Relationship Specialty Start Date End Date Efraín Zamudio III, MD [address] [place] [address] PCP - General Family Medicine 06/24/21 documented as of this encounter
--- OUTSIDE RECORDS SUMMARY | 2023-08-31 21:12 | External Medical Summary | Summary of Care ---
Author Name Unknown Organization [facility] Address [address] [place] [address] Phone [phone] Care Team Providers Care Exhaust Emissions Automotive Technician Name Role Phone Lizz BUI MD, Efraín León Primary Care Provider [phone] Reason for Visit * Reason Onset Date Comments Advice 04/09/2023 Referral 04/09/2023 MRI request Encounter Details Date Type Department Care Team (Late st Contact Info) Description 04/09/2023 Telephone Family Practice [facility] [place] 200 [place] [address] Efraín Zamudio III, MD 200 [place] [address] Advice; Referral (MRI request) Allergies Active Allergy [...] encounter Miscellaneous Notes * Telephone Encounter - Yuli Carpio OSA - 04/12/2023 8:50 AM EST Reason for patient's call: pt returning call Caller was transferred to [place] at the nurse line. * Telephone Encounter - Nina Cunningham RN - 04/12/2023 8:47 AM EST Left message for pt to call back. * Telephone Encounter - Efraín Zamudio III, MD - 04/10/2023 8:24 AM EST Call please what specific yopf-[id number]-[id number] medicines or aggravating is stomach? More information [...] sent in. The call back number is: [phone]. The patient is requesting for the meter to be sent over to the pharmacy ([facility]) by this Sunday. documented in this encounter Plan of Treatment Upcoming Encounters Date Type Department Care Team (Late st Contact Info) Description 05/03/2023 7:30 AM EST Imaging Radiology [address] 132 [facility] [place] [address] 06/18/2023 12:20 PM EDT Office Visit Family Practice [facility] 200 [facility] [place] [address] Efraín Zamudio III, MD 200 [facility] [place] [address] Scheduled Procedures Name Priority Associated Diagnoses Date/Ti [...] Documents on File Type Date Recorded Patient Evaluator Transfer Students Expl anation Advance Directives and Living Will 11/03/2008 ADVANCE DIRECTIVE / LIVING WILL Advance Directives and Living Will 11/03/2008 ADVANCE DIRECTIVE / LIVING WILL Power of Surgical Aide 11/03/2008 POWER OF A TTORNEY Power of Surgical Aide 11/03/2008 POWER OF A TTORNEY Power of Surgical Aide 11/03/2008 POWER OF A TTORNEY Care Teams Exhaust Emissions Automotive Technician Relationship Specialty Start Date End Date Efraín Zamudio III, MD [address] [place] [address] PCP - General Family Medicine 06/24/21 documented as of this encounter
--- OUTSIDE RECORDS SUMMARY | 2023-08-31 21:12 | External Medical Summary | Summary of Care ---
Author Name Unknown Organization [facility] Address [address] [place] [facility] [place] [address] Phone [phone] Care Team Providers Care Top Cleaner Name Role Phone Lizz BUI MD, Didier León Primary Care Provider [phone] Encounter Details Date Type Department Care Team (Late st Contact Info) Description 04/09/2023 Refill Family Practice [facility] [address] [facility] [place] [address] Didier Huff III, MD 200 [place] [address] Allergies Active Allergy Reactions Criticality Noted Date [...] as of this encounter (statuses as of 04/09/2023) Medications Medication Sig Dispensed Refills Start Date [...] for pain 100 g 1 04/09/2023 Active Diclofenac Sodium 1 % External Gel (Voltaren) Apply topically to affected area 4 times a day. 2 grams/ dose Apply to knee as needed for pain 100 g 1 01/21/2023 Discontinue d(Refill) documented as of this encounter (statuses as of 04/09/2023) Active Problems Problem Noted Date Diagnosed Date [...] as of this encounter (statuses as of 04/09/2023) Resolved Problems Problem Noted Date Diagnosed Date [...] as of this encounter (statuses as of 04/09/2023) Immunizations Name Administration Dates Next Due COVID-19 [...] Encounter - Didier Huff III, MD - 04/09/2023 2:12 PM ESTSigned Prescriptions: Disp Refills Diclofenac Sodium 1 % External Gel (Voltar*100 g 1 Sig: Apply topically to affected area 4 times a day. 2 grams/ dose Apply to knee as needed for painAuthorizing Provider: DIDIER HUFF III * Telephone Encounter - Puja Mckeon LPN - 04/09/2023 2:02 PM EST Pending Prescriptions: Disp Refills Diclofenac Sodium 1 % External Gel ([place]*100 g 1 Sig: Apply topically to affected area 4 times a day. 2 grams/ dose Apply to knee as needed for pain Last Visit: 03/14/2023 (in office), 07/15/2019 (telemedicine) Next Visit: 06/18/2023 Last date the medication was ordered: 01/21/23 Patient Active Problem List Diagnosis Code Esophageal reflux K21.9 Spinal stenosis of lumbar region without neurogenic claudication M48.061 DYSLIPIDEMIA, GOAL LDL BELOW 100 E78.5 Tobacco use disorder F17.200 Diabetic polyneuropathy ([facility]) E11.42 MEDICATION USE AGREEMENT [id number] Postlaminectomy syndrome M96.1 HTN, goal below 140/90 I10 COPD, severity to be determined ([facility]) J44.9 Anxiety and depression F41.9, F32.A Insulin [...] 11/05/2018 08:59 AM * Telephone Encounter - Caleb Tran OSA - 04/09/2023 1:57 PM EST An order was requested for this patient. Name of Requesting Provider: Dr. Huff Order Requested: Ryan Diagnosis/Reason for Request: patient states he is almost out of medication. If order request is for Mammogram: Is the patient having any breast symptoms? N/A Is there a chance of ? N/A Has the patient had any breast problems in the past? NA What location AND department does the patient wish to have their [facility] completed at? [facility] [place] Fax Number, if applicable: [employer] Call Back Number: [phone] If the caller is not a current [...] Practice State [facility] [place] [address] [place] [address] Didier Huff III, MD [address] [facility] [place] [address] Scheduled Procedures Name Priority Associated Diagnoses Date/Ti [...] Documents on File Type Date Recorded Patient Trade Mark Attorney Expl anation Advance Directives and Living Will 11/03/2008 ADVANCE DIRECTIVE / LIVING WILL Advance Directives and Living Will 11/03/2008 ADVANCE DIRECTIVE / LIVING WILL Power of Global Climate Change Analyst 11/03/2008 POWER OF A TTORNEY Power of Global Climate Change Analyst 11/03/2008 POWER OF A TTORNEY Power of Global Climate Change Analyst 11/03/2008 POWER OF A TTORNEY Care Teams Top Cleaner Relationship Specialty Start Date End Date Didier Huff III, MD 200 [place] [address] PCP - General Family Medicine 06/24/21 documented as of this encounter
--- OUTSIDE RECORDS SUMMARY | 2023-08-31 21:12 | External Medical Summary | Summary of Care ---
Author Name Unknown Organization [facility] Address [address] [place] [address] Phone [phone] Care Team Providers Care Customer Service Engineer Name Role Phone Lizz BUI MD, Efraín León Primary Care Provider [phone] Reason for Visit * Reason Onset Date Comments Appointment 04/10/2023 Encounter Details Date Type Department Care Team (Late st Contact Info) Description 04/10/2023 Telephone Family Practice [facility] 200 [facility] [place] [address] Efraín Zamudio III, MD 200 [place] [address] Appointment Allergies Active Allergy Reactions Criticality Noted [...] 100 g 1 04/09/2023 Active Accu-Chek Guide In Vitro Strip (Glucose Blood) Test five times daily for use with multiple daily insulin injections-befor e all meals, snacks, exercise, and one to two times during the night. Dx: E11.9 100 Strip 3 04/10/2023 Active Accu-Chek Guide w/Device Kit Use as directed. 1 Kit 0 04/10/2023 Active documented as of this encounter [...] encounter Miscellaneous Notes * Telephone Encounter - Suzy Krishna PHARM Tech - 04/10/2023 12:06 PM EST Patient calling to request appt. Transferred pt to scheduling for further assistance. Thank you, Suzy Krishna [facility] Rail Operator II [facility]Former[facility]) 04/10/2023,12:07 PM documented in this encounter Plan of Treatment Upcoming Encounters Date Type Department Care Team (Late st Contact Info) Description 05/03/2023 7:30 AM EST Imaging Radiology [address] [address] 06/18/2023 12:20 PM EDT Office Visit Family Practice [facility] 200 [facility] [place] [address] Efraín Zamudio III, MD 200 [facility] [place] [address] Scheduled Procedures Name Priority Associated Diagnoses Date/Ti [...] Documents on File Type Date Recorded Patient Animal Park Code Enforcement Officer Expl anation Advance Directives and Living Will 11/03/2008 ADVANCE DIRECTIVE / LIVING WILL Advance Directives and Living Will 11/03/2008 ADVANCE DIRECTIVE / LIVING WILL Power of Rotary Operator 11/03/2008 POWER OF A TTORNEY Power of Rotary Operator 11/03/2008 POWER OF A TTORNEY Power of Rotary Operator 11/03/2008 POWER OF A TTORNEY Care Teams Customer Service Engineer Relationship Specialty Start Date End Date Efraín Zamudio III, MD 200 [place] [address] PCP - General Family Medicine 06/24/21 documented as of this encounter
--- OUTSIDE RECORDS SUMMARY | 2023-08-31 21:12 | External Medical Summary | Summary of Care ---
Author Name Unknown Organization [facility] Address [address] [place] [address] Phone [phone] Care Team Providers Care Probate Paralegal Name Role Phone Lizz BUI MD, Efraín León Primary Care Provider [phone] Reason for Visit * Reason Onset Date Comments Advice 04/09/2023 Referral 04/09/2023 MRI request Encounter Details Date Type Department Care Team (Late st Contact Info) Description 04/09/2023 Telephone Family Practice [facility] [place] 200 [place] [address] Efraín Zamudio III, MD 200 [place] [address] Advice; Referral (MRI request) Allergies Active Allergy [...] message. Verbalized understanding. Generic tylenol from the [employer] store There is vein in right thigh that pops out. right lower back pain where fusion was there is a lump at the top of the fusion. He has MRI scheduled for 05/03 He never heard anything from [employer] about starting therapy. He indicated that it was to be starteddecember but he has never heard anything. * Telephone Encounter - Yuli Carpio OSA - 04/12/2023 8:50 AM EST Reason for patient's call: pt returning call Caller was transferred to [place] at the nurse line. * Telephone Encounter - Nina Cunningham RN - 04/12/2023 8:47 AM EST Left message for pt to call back. * Telephone Encounter - Efraín Zamudio III, MD - 04/10/2023 8:24 AM EST Call please what specific rplm-ydk-[id number] medicines or aggravating is stomach? More information [...] sent in. The call back number is: [phone]. The patient is requesting for the meter to be sent over to the pharmacy ([facility]) by this Sunday. documented in this encounter Plan of Treatment Upcoming Encounters Date Type Department Care Team (Late st Contact Info) Description 05/03/2023 7:30 AM EST Imaging Radiology [address] 132 [facility] [place] [address] 06/18/2023 12:20 PM EDT Office Visit Family Practice [facility] [place] [address] [place] [address] Efraín Zamudio III, MD [address] [place] [address] [address] Scheduled Procedures Name Priority Associated Diagnoses Date/Ti [...] Documents on File Type Date Recorded Patient Nursing Informatics Clinical Analyst Expl anation Advance Directives and Living Will 11/03/2008 ADVANCE DIRECTIVE / LIVING WILL Advance Directives and Living Will 11/03/2008 ADVANCE DIRECTIVE / LIVING WILL Power of Branch Logistics Supervisor 11/03/2008 POWER OF A TTORNEY Power of Branch Logistics Supervisor 11/03/2008 POWER OF A TTORNEY Power of Branch Logistics Supervisor 11/03/2008 POWER OF A TTORNEY Care Teams Probate Paralegal Relationship Specialty Start Date End Date Efraín Zamudio III, MD 200 [place] [address] PCP - General Family Medicine 06/24/21 documented as of this encounter
--- OUTSIDE RECORDS SUMMARY | 2023-08-31 21:12 | External Medical Summary | Summary of Care ---
Author Name Unknown Organization [facility] Address [address] [place] [address] Phone [phone] Care Team Providers Care Manager Technical Training Name Role Phone Lizz BUI MD, Efraín León Primary Care Provider [phone] Reason for Referral * Precert (Within 10 days (routine)) - Pending Review Specialty Diagnoses / Procedures Referred By Toshia marino Referred To Contact Radiology Diagnoses Lump of skin of back Procedures MRI L SPINE WO CONTRAST Efraín Zamudio III, MD 200 [facility] [place] [address] Referral ID Status Reason Start Date Expiration Date V isits Requested Visits Authorized [id number] Pending Review 04/11/2023 999 999 Reason for Visit * Reason Onset Date Comments Test Results 04/10/2023 Encounter Details Date Type Department Care Team (Late st Contact Info) Description 04/10/2023 Telephone Family Practice [facility] [place] [address] [place] [address] Efraín Zamudio III, MD 200 [facility] [place] [address] Test Results Allergies Active Allergy Reactions Criticality [...] 5 times daily 200 Each 04/07/2023 Active Zolpidem Tartrate 10 MG Oral [...] Telephone Encounter - Madeline Ernandez LPN - 04/10/2023 11:41 AM EST Called patient. Informed MRI ordered. Sent to radiology schedulingSue. * Telephone Encounter - Efraín Zamudio III, MD - 04/10/2023 11:28 AM EST MRI ordered * Telephone Encounter - Karie Skinner LPN - 04/10/2023 10:34 AM EST Patient is aware and verbalizes understanding He states that his pain has become worse since having the US done Rating his pain a 10/10 and then after he takes Tylenol it goes down to a 5/10 He also states that the area is now having periods that it will become either really hot or really cold He has also noted that the veins in his right thigh and calf will pop out really big when he standsup Patient states that their is definitely something going on in this area He feels that he needs to have an MRI done Pharm selected. Please advise. * Telephone Encounter - Karie Skinner LPN - 04/10/2023 10:32 AM EST ----- Message from Efraín Zamudio III, MD sent at 04/02/2023 9:49 AM EST ----- PROCEDURE INFORMATION: Exam: US Abdomen, Limited; Soft Tissue Exam date and time: 03/29/2023 1:04 PM Age: 62 years old Clinical indication: Localized swelling, mass and lump, trunk; Additional info: Lump mid back Call please area of surgery no distinct collection or mass seen nonspecific changes possibly secondary to shadowing scar documented in this encounter Plan of Treatment Upcoming Encounters Date Type Department Care Team (Late st Contact Info) Description 05/03/2023 7:30 AM EST Imaging Radiology [facility] [address] 06/18/2023 12:20 PM EDT Office Visit Family Practice [facility] 200 [facility] [place] [address] Efraín Zamudio III, MD 200 [facility] [place] [address] Scheduled Orders Name Type Priority Associated Diagnoses Orde r Schedule MRI L SPINE WO CONTRAST Medical Imaging Routine Lump of skin of back Expected: 04/11/2023, Expires: 05/11/2024 Scheduled Procedures Name Priority Associated Diagnoses Date/Ti [...] as of this encounter Visit Diagnoses Diagnosis Lump of skin of back- Primary Localized superficial swelling, mass, or lump documented in this encounter Advance Directives Documents on File Type Date Recorded Patient Online Producer Expl anation Advance Directives and Living Will 11/03/2008 ADVANCE DIRECTIVE / LIVING WILL Advance Directives and Living Will 11/03/2008 ADVANCE DIRECTIVE / LIVING WILL Power of Brazer Production Line 11/03/2008 POWER OF A TTORNEY Power of Brazer Production Line 11/03/2008 POWER OF A TTORNEY Power of Brazer Production Line 11/03/2008 POWER OF A TTORNEY Care Teams Manager Technical Training Relationship Specialty Start Date End Date Efraín Zamudio III, MD 200 [place] [address] PCP - General Family Medicine 06/24/21 documented as of this encounter
--- OUTSIDE RECORDS SUMMARY | 2023-08-31 21:12 | External Medical Summary | Summary of Care ---
Author Name Unknown Organization [facility] Address [address] [place] [address] Phone [phone] Care Team Providers Care Portable Pinch Riveter Name Role Phone Lizz BUI MD, Efraín León Primary Care Provider [phone] Reason for Visit * Reason Onset Date Comments Advice 04/09/2023 Referral 04/09/2023 MRI request Encounter Details Date Type Department Care Team (Late st Contact Info) Description 04/09/2023 Telephone Family Practice [facility] [place] 200 [facility] [place] [address] Efraín Zamudio III, MD 200 [place] [address] Advice; Referral (MRI request) Allergies Active Allergy [...] 8:24 AM EST Call please what specific naly-vbr-vawfkco medicines or aggravating is stomach? More information [...] sent in. The call back number is: [phone]. The patient is requesting for the meter to be sent over to the pharmacy ([facility]) by this Sunday. documented in this encounter Plan of Treatment Upcoming Encounters Date Type Department Care Team (Late st Contact Info) Description 05/03/2023 7:30 AM EST Imaging Radiology [address] [place] [address] 06/18/2023 12:20 PM EDT Office Visit Family Practice [facility] 200 [facility] [place] [address] Efraín Zamudio III, MD 200 [facility] [place] [address] Scheduled Procedures Name Priority Associated Diagnoses Date/Ti [...] Documents on File Type Date Recorded Patient Gear Shaper Expl anation Advance Directives and Living Will 11/03/2008 ADVANCE DIRECTIVE / LIVING WILL Advance Directives and Living Will 11/03/2008 ADVANCE DIRECTIVE / LIVING WILL Power of Strategic Planning Consultant 11/03/2008 POWER OF A TTORNEY Power of Strategic Planning Consultant 11/03/2008 POWER OF A TTORNEY Power of Strategic Planning Consultant 11/03/2008 POWER OF A TTORNEY Care Teams Portable Pinch Riveter Relationship Specialty Start Date End Date Efraín Zamudio III, MD [address] [place], [place] [address] PCP - General Family Medicine 06/24/21 documented as of this encounter
--- OUTSIDE RECORDS SUMMARY | 2023-08-31 21:12 | External Medical Summary | Summary of Care ---
Author Name Unknown Organization [facility] Address [address] [place] [address] Phone [phone] Care Team Providers Care Shook Splicer Name Role Phone Lizz BUI MD, Efraín León Primary Care Provider [phone] Reason for Visit * Reason Onset Date Comments Advice 04/05/2023 Question about m eds/Trazodone Status Check 04/05/2023 Encounter Details Date Type Department Care Team (Late st Contact Info) Description 04/05/2023 Telephone Family Practice [facility] 200 [place] [address] Efraín Zamudio III, MD 200 [place] [address] Advice (Question about meds/Trazodone ); S... Allergies Active Allergy Reactions Criticality Noted Date [...] Tablet (Oxy IR) 0 03/12/2023 Acti ve traZODone HCl 50 MG Oral Tablet (Desyrel) [...] 30 Tablet 2 03/14/2023 4 Discontinue d(Refill) documented as of this [...] Encounter - Sujatha Gonsales OSA - 04/12/2023 3:19 PM EST Patient calling in to check on the status of previous message. Patient Called after 48 hour timeframe and escalation e-mail was sent to clinic leadership. * Telephone Encounter - Puja Mckeon LPN - 04/09/2023 9:45 AM EST Called pt. Informed of message. He verbalized understanding. He needs order sent to the pharm. Pending. He also indicated the glucometer and supplies were never sent to the pharm. His neighbor went to pick them up this morning but miguel didin't have them. I called Miguel the contour system is not covered by his insurance. The one touch verio system is covered by insurance. Pt is aware. Pending. * Telephone Encounter - Efraín Zamudio III, MD - 04/05/2023 11:08 AM EST Try a higher dose of trazodone take 1-1/2 tablet at bedtime * Telephone Encounter - Andreina Mata OSA - 04/05/2023 9:28 AM EST Pt calling about his medicine he is having troublem sleeping and medicine that he is on now only helps for a couple hrs and wants to know if doctor can give him a call back on what he should and if he could change his meds documented in this encounter Plan of Treatment Upcoming Encounters Date Type Department Care Team (Late st Contact Info) Description 05/03/2023 7:30 AM EST Imaging Radiology [facility] [place] 132 [facility] [place] [address] 06/18/2023 12:20 PM EDT Office Visit Family Practice [facility] [place] 200 [facility] [place] [address] Efraín Zamudio III, MD 200 [facility] [place] [address] Scheduled Procedures Name Priority Associated Diagnoses Date/Ti [...] with type 2 diabetes mellitus (HCC)- Primary documented in this encounter Advance Directives Documents on File Type Date Recorded Patient Client Care Specialist Expl anation Advance Directives and Living Will 11/03/2008 ADVANCE DIRECTIVE / LIVING WILL Advance Directives and Living Will 11/03/2008 ADVANCE DIRECTIVE / LIVING WILL Power of Refinery Operator Polymerization Plant 11/03/2008 POWER OF A TTORNEY Power of Refinery Operator Polymerization Plant 11/03/2008 POWER OF A TTORNEY Power of Refinery Operator Polymerization Plant 11/03/2008 POWER OF A TTORNEY Care Teams Shook Splicer Relationship Specialty Start Date End Date Efraín Zamudio III, MD 200 [place] [address] PCP - General Family Medicine 06/24/21 documented as of this encounter
--- OUTSIDE RECORDS SUMMARY | 2023-08-31 21:13 | External Medical Summary | Summary of Care ---
Author Name Unknown Organization [facility] Address [address] [place] [address] Phone [phone] Care Team Providers Care National Accounts Recruiter Name Role Phone Lizz BUI MD, Efraín León Primary Care Provider [phone] Reason for Visit * Reason Onset Date Comments Advice 04/09/2023 Referral 04/09/2023 MRI request Encounter Details Date Type Department Care Team (Late st Contact Info) Description 04/09/2023 Telephone Family Practice [facility] [place] [address] [facility] [place] [address] Efraín Zamudio III, MD 200 [place] [address] Advice; Referral (MRI request) Allergies Active Allergy [...] for Anxiety. 21 Tablet 0 01/12/2023 Active Diclofenac Sodium 1 % External Gel (Voltaren) Apply topically to affected area 4 times a day. 2 grams/ dose Apply to knee as needed for pain 100 g 1 01/21/2023 Active Rizatriptan Benzoate 10 MG Oral Tablet [...] 5 times daily 200 Each 04/09/2023 Active documented as of this encounter (statuses [...] sent in. The call back number is: [phone]. The patient is requesting for the meter to be sent over to the pharmacy ([facility]) by this Sunday. documented in this encounter Plan of Treatment Upcoming Encounters Date Type Department Care Team (Late st Contact Info) Description 06/18/2023 12:20 PM EDT Office Visit Family Practice [facility] [address] [facility] [place] [address] Efraín Zamudio III, MD [address] [facility] [place] [address] Scheduled Procedures Name Priority Associated Diagnoses Date/Ti [...] Documents on File Type Date Recorded Patient Manga Artist Expl anation Advance Directives and Living Will 11/03/2008 ADVANCE DIRECTIVE / LIVING WILL Advance Directives and Living Will 11/03/2008 ADVANCE DIRECTIVE / LIVING WILL Power of Freight Broker 11/03/2008 POWER OF A TTORNEY Power of Freight Broker 11/03/2008 POWER OF A TTORNEY Power of Freight Broker 11/03/2008 POWER OF A TTORNEY Care Teams National Accounts Recruiter Relationship Specialty Start Date End Date Efraín Zamudio III, MD [address] [place] [address] PCP - General Family Medicine 06/24/21 documented as of this encounter
--- OUTSIDE RECORDS SUMMARY | 2023-08-31 21:13 | External Medical Summary | Summary of Care ---
Author Name Unknown Organization [facility] Address [address] [place] [address] Phone [phone] Care Team Providers Care Manufacturing Worker Name Role Phone Lizz BUI MD, Efraín León Primary Care Provider [phone] Reason for Visit * Reason Onset Date Comments Advice 04/09/2023 Referral 04/09/2023 MRI request Encounter Details Date Type Department Care Team (Late st Contact Info) Description 04/09/2023 Telephone Family Practice [facility] [place] [address] [place] [address] Efraín Zamudio III, MD 200 [place] [address] Advice; Referral (MRI request) Allergies Active Allergy [...] Tran OSA - 04/09/2023 1:52 PM EST Patient states he cannot keep taking these otc medications due to his stomach pains and is requesting an MRI for [...] sent in. The call back number is: [phone]. The patient is requesting for the meter to be sent over to the pharmacy ([facility]) by this Sunday. documented in this encounter Plan of Treatment Upcoming Encounters Date Type Department Care Team (Late st Contact Info) Description 06/18/2023 12:20 PM EDT Office Visit Family Practice [facility] [address] [place] [address] Efraín Zamudio III, MD [address] [place] [address] Scheduled Procedures Name Priority Associated Diagnoses Date/Ti [...] Documents on File Type Date Recorded Patient Electrician Maintenance Expl anation Advance Directives and Living Will 11/03/2008 ADVANCE DIRECTIVE / LIVING WILL Advance Directives and Living Will 11/03/2008 ADVANCE DIRECTIVE / LIVING WILL Power of Php Developer 11/03/2008 POWER OF A TTORNEY Power of Php Developer 11/03/2008 POWER OF A TTORNEY Power of Php Developer 11/03/2008 POWER OF A TTORNEY Care Teams Manufacturing Worker Relationship Specialty Start Date End Date Efraín Zamudio III, MD [address] [place] [address] PCP - General Family Medicine 06/24/21 documented as of this encounter
--- OUTSIDE RECORDS SUMMARY | 2023-08-31 21:13 | External Medical Summary | Summary of Care ---
Author Name Unknown Organization [facility] Address [address] [place] [address] Phone [phone] Care Team Providers Care Tuyere Fitter Name Role Phone Lizz BUI MD, Efraín León Primary Care Provider [phone] Reason for Visit * Reason Onset Date Comments Advice 04/05/2023 Question about m eds Encounter Details Date Type Department Care Team (Late st Contact Info) Description 04/05/2023 Telephone Family Practice [facility] 200 [place] [address] Efraín Zamudio III, MD 200 [place] [address] Advice (Question about meds) Allergies Active Allergy Reactions Criticality Noted Date [...] times daily 200 Each 11 04/09/2023 Active traZODone HCl 50 MG Oral Tablet (Desyrel) Take 1 Tablet by mouth at bedtime. 30 Tablet 2 03/14/2023 Discontinue d(Refill) documented as of this encounter [...] EDT Office Visit Family Practice [place] [address] [place], [place] [address] Efraín Zamudio III, MD [address] [facility] [place] [address] Scheduled Procedures Name Priority Associated Diagnoses Date/Ti [...] on File Type Date Recorded Patient Medical Front Desk Coordinator Expl anation Advance Directives and Living Will 11/03/2008 ADVANCE DIRECTIVE / LIVING WILL Advance Directives and Living Will 11/03/2008 ADVANCE DIRECTIVE / LIVING WILL Power of Order Expediter 11/03/2008 POWER OF A TTORNEY Power of Order Expediter 11/03/2008 POWER OF A TTORNEY Power of Order Expediter 11/03/2008 POWER OF A TTORNEY Care Teams Tuyere Fitter Relationship Specialty Start Date End Date Efraín Zamudio III, MD [address] [place] [address] PCP - General Family Medicine 06/24/21 documented as of this encounter
--- OUTSIDE RECORDS SUMMARY | 2023-08-31 21:13 | External Medical Summary | Summary of Care ---
Author Name Unknown Organization [facility] Address [address] [place] [address] Phone [phone] Care Team Providers Care Graduate Teaching Associate Name Role Phone Lizz BUI MD, Efraín León Primary Care Provider [phone] Reason for Visit * Reason Onset Date Comments Test Results 03/22/2023 Encounter Details Date Type Department Care Team (Late st Contact Info) Description 03/22/2023 Telephone Family Practice [facility] [address] [facility] [place] [address] Efraín Zamudio III, MD 200 [place] [address] Test Results Allergies Active Allergy Reactions Criticality [...] as of this encounter (statuses as of 03/22/2023) Medications Medication Sig Dispensed Refills Start Date End Date Status Contour Next Monitor w/Device KitIndications:Diabet ic polyneuropathy associated with type 2 diabetes mellitus (HCC),Diabetes type 2, uncontrolled Use as directed . 1 Kit 0 12/16/2021 Active LancetsIndications:Di abetic polyneuropathy associated with type 2 diabetes mellitus (HCC) Use as directed 5 times daily 200 Each 11 12/16/2021 Active Contour Next Test In Vitro Strip (Glucose Blood)Indications:Alondra betic polyneuropathy associated with type 2 diabetes mellitus (HCC) Test five times daily for use with multiple daily insulin injections-befo re all meals, snacks, exercise, and one to two times during the night. Dx: E11.9 200 Strip 5 12/16/2021 Active Silver sulfADIAZINE 1 % External Cream (Silvadene)Indication [...] mouth at bedtime. 30 Tablet 2 03/14/2023 Active Zolpidem Tartrate 10 MG Oral Tablet (Ambien) Take 1 Tablet by mouth at bedtime as needed for Sleep. 30 Tablet 0 03/14/2023 Active Cephalexin 500 MG Oral Capsule (Keflex) Take 1 Capsule by mouth in the morning and 1 Capsule at noon and 1 Capsule before bedtime. Do all this for 10 days. 30 Capsule 0 03/14/2023 03/24/2023 Active Gabapentin 400 MG Oral Capsule (Neurontin) Take 1 Capsule by mouth in the morning and 1 Capsule at noon and 1 Capsule before bedtime. 90 Capsule 5 03/14/2023 Active Ibuprofen 600 MG Oral Tablet (Motrin) Take 1 Tablet by mouth every 8 hours as needed (Headache) for up to 10 days. 24 Tablet 0 03/16/2023 03/26/2023 Active documented as of this encounter (statuses as of 03/22/2023) Active Problems Problem Noted Date Diagnosed Date [...] as of this encounter (statuses as of 03/22/2023) Resolved Problems Problem Noted Date Diagnosed Date [...] as of this encounter (statuses as of 03/22/2023) Immunizations Name Administration Dates Next Due COVID-19 [...] Telephone Encounter - Izabel River LPN - 03/22/2023 9:48 AM EST Patient called and made aware. States higher dose of Gabapentin is helping. * Telephone Encounter - Izabel River LPN - 03/22/2023 9:45 AM EST ----- Message from Efraín Zamudio III, MD sent at 03/14/2023 2:44 PM EST ----- Call please some elevation of sed rate magnesium electrolytes normal TSH normal liver test little lower than in the past white count a little elevated sed rate higher no clear reason for muscle tremoring shaking monitor temperatures let us know if he starts running a fever see if higher dose of gabapentin makes any difference documented in this encounter Plan of Treatment Upcoming Encounters Date Type Department Care Team (Late st Contact Info) Description 06/18/2023 12:20 PM EDT Office Visit Family Practice [place] [address] [place] [address] Efraín Zamudio III, MD 200 [facility] [place], [place] [address] Scheduled Procedures Name Priority Associated Diagnoses Date/Ti [...] Documents on File Type Date Recorded 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
--- OUTSIDE RECORDS SUMMARY | 2023-08-31 21:13 | External Medical Summary | Summary of Care ---
Author Name Unknown Organization [facility] Address [address] [place] [address] Phone [phone] Care Team Providers Care Freight Service Inspector Name Role Phone Lizz BUI MD, Efraín León Primary Care Provider [phone] Reason for Visit * Reason Comments Acute Shaking Encounter Details Date Type Department Care Team (Late st Contact Info) Description 03/14/2023 8:00 AM EST Office Visit Family Practice [facility] [address] [facility] [place] [address] Efraín Zamudio III, MD [address] [place] [address] Tremor*; RLS (restless legs syndrome); Peripheral polyneuropathy; Lump of skin of back Allergies Active Allergy Reactions Criticality Noted Date [...] as of this encounter (statuses as of 03/20/2023) Medications Medication Sig Dispensed Refills Start Date End Date Status Contour Next Monitor w/Device KitIndications:Alondra betic polyneuropathy associated with type 2 diabetes mellitus (HCC),Diabetes type 2, uncontrolled Use as directed . 1 Kit 0 2 Active LancetsIndications :Diabetic polyneuropathy associated with type 2 diabetes mellitus (HCC) Use as directed 5 times daily 200 Each 11 2 Active Contour Next Test In Vitro Strip (Glucose Blood)Indications: Diabetic polyneuropathy associated with type 2 diabetes mellitus (HCC) Test five times daily for use with multiple daily insulin injections-be fore all meals, snacks, exercise, and one to two times during the night. Dx: E11.9 200 Strip 5 2 Active Silver sulfADIAZINE 1 % External Cream (Silvadene)Indicat [...] for Anxiety. 21 Tablet 0 3 Active Diclofenac Sodium 1 % External Gel (Voltaren) Apply topically to affected area 4 times a day. 2 grams/ dose Apply to knee as needed for pain 100 g 1 3 Active Rizatriptan Benzoate 10 MG [...] Oral Tablet (Oxy IR) 0 3 Active traZODone HCl 50 MG Oral Tablet (Desyrel) Take 1 Tablet by mouth at bedtime. 30 Tablet 2 3 Active Zolpidem Tartrate 10 MG Oral Tablet (Ambien) Take 1 Tablet by mouth at bedtime as needed for Sleep. 30 Tablet 0 3 Active Cephalexin 500 MG Oral Capsule (Keflex) Take 1 Capsule by mouth in the morning and 1 Capsule at noon and 1 Capsule before bedtime. Do all this for 10 days. 30 Capsule 0 3 03/24/20 23 Active Gabapentin 400 MG Oral Capsule (Neurontin) Take 1 Capsule by mouth in the morning and 1 Capsule at noon and 1 Capsule before bedtime. 90 Capsule 5 3 Active traZODone HCl 50 MG Oral Tablet (Desyrel) Take 1 Tablet by mouth at bedtime. 30 Tablet 2 3 03/14/20 23 Discontinued(Ref ill) Gabapentin 300 MG Oral Capsule (Neurontin) Twice daily 60 Capsule 5 3 03/14/20 23 Discontinued Zolpidem Tartrate 10 MG Oral Tablet (Ambien) Take 1 Tablet by mouth at bedtime as needed for Sleep. 30 Tablet 0 3 03/14/20 23 Discontinued(Ref ill) documented as of this encounter (statuses as of 03/20/2023) Active Problems Problem Noted Date Diagnosed Date [...] as of this encounter (statuses as of 03/20/2023) Resolved Problems Problem Noted Date Diagnosed Date [...] as of this encounter (statuses as of 03/20/2023) Immunizations Name Administration Dates Next Due COVID-19 [...] Sign Reading Time Taken Comments Blood Pressure 128/70 03/14/2023 7:56 AM EST Pulse 75 03/14/2023 7:56 AM EST Temperature 36.5 C (97.7 F) 03/14/2023 7:56 AM ES T Respiratory Rate 16 03/14/2023 7:56 AM EST Oxygen Saturation 96% 03/14/2023 7:56 AM EST Inhaled Oxygen Concentration - - Weight 108.5 kg (239 lb 3.2 oz) 03/14/2023 7:56 AM EST Height 193 cm (6' 4") 03/14/2023 7:56 AM EST Body Mass Index 29.12 03/14/2023 7:56 AM EST documented in this encounter Progress Notes * Mason III, Efraín León MD - 03/14/2023 8:39 AM EST Subjective: Dann Carcamo is a 62 year old male. Chief Complaint Patient presents with Acute Shaking HPI: Follow-up was in the emergency room in the past week for increased back pain had CT scan showed previous surgeries degenerative changes spinal stenosis also gets a lump in his back that comes ingoes at they top of his previous surgery site feels this was above the CT scan of the lumbar spine from the ED has had more tremoring worse in his legs but when he lays down gets it up into his jaw to his arms ER notes reviewed no current fever chills chronic dental issues has been on antibiotics on an off needs excision of teeth denies current fever or chills no incontinence denies chest pain shortness for breath has neuropathy restless legs PMH: Patient Active Problem List Diagnosis Code Esophageal reflux K21.9 Spinal stenosis of lumbar region without neurogenic claudication M48.061 DYSLIPIDEMIA, GOAL LDL BELOW 100 E78.5 Tobacco use disorder F17.200 Diabetic polyneuropathy ([facility]) E11.42 MEDICATION USE AGREEMENT [id number] Postlaminectomy syndrome M96.1 HTN, goal below 140/90 I10 COPD, severity to be determined ([facility]) J44.9 Anxiety and depression F41.9, F32.A Insulin dependent type 2 diabetes mellitus ([facility]) E11.9, Z79.4 Brain metastasis C79.31 Small cell lung cancer ([facility]) C34.90 Major depressive disorder, recurrent episode, moderate ([facility]) F33.1 Chronic back pain M54.9, G89.29 Laceration of toe S91.119A Tenosynovitis of left foot M65.9 Atrial fibrillation ([facility]) I48.91 Amputation of toe of right foot ([facility]) S98.131A Type 2 diabetes mellitus with hemoglobin A1c goal of less than 7.5% ([facility]) E11.9 Current Outpatient Medications Medication Sig Dispense Refill Contour Next Monitor w/Device Kit Use as directed . 1 Kit 0 Lancets Use as directed 5 times daily 200 Each 11 Contour Next Test In Vitro Strip (Glucose Blood) Test five times daily for use with multiple daily insulin injections-before all meals, snacks, exercise, and one to two times during the night. Dx: E11.9 200 Strip 5 Silver sulfADIAZINE 1 % External Cream (Silvadene) Apply topically to affected area daily. Apply tofoot. 50 g 1 Gauze Pads 4"X4" Pad Apply to the foot daily with silvadene cream. 100 Each 5 Ozempic (1 MG/DOSE) 4 MG/3ML Subcutaneous Solution Pen-injector (Semaglutide (1 MG/DOSE)) Inject 1 mg under the skin once a week. 3 mL 6 Esomeprazole Magnesium 40 MG Oral Capsule Delayed Release (NexIUM) Take 1 Capsule by mouth in the morning. 1 hour before the first meal of the day. 30 Capsule 4 Rosuvastatin Calcium 40 MG Oral Tablet (Crestor) Take 1 Tablet by mouth at bedtime. 90 Tablet 1 LORazepam 0.5 MG Oral Tablet (Ativan) Take 1 Tablet by mouth every 8 hours as needed for Anxiety. 21 Tablet 0 Diclofenac Sodium 1 % External Gel (Voltaren) Apply topically to affected area 4 times a day. 2 grams/ dose Apply to knee as needed for pain 100 g 1 Rizatriptan Benzoate 10 MG Oral Tablet (Maxalt) TAKE 1 TABLET BY MOUTH NEEDED FOR MIGRAINE. CAN REPEAT DOSE IN 1 HOUR IF NEEDED. MAXIMUM DOSE OF 20mg PER DAY. 10 Tablet 0 Ketorolac Tromethamine 10 MG Oral Tablet (Toradol) Take 1 Tablet by mouth 4 times a day as needed for Pain, Severe. Do not take for longer than 5 days 20 Tablet 0 traZODone HCl 50 MG Oral Tablet (Desyrel) Take 1 Tablet by mouth at bedtime. 30 Tablet 2 Zolpidem Tartrate 10 MG Oral Tablet (Ambien) Take 1 Tablet by mouth at bedtime as needed for Sleep.30 Tablet 0 Cephalexin 500 MG Oral Capsule (Keflex) Take 1 Capsule by mouth in the morning and 1 Capsule at noon and 1 Capsule before bedtime. Do all this for 10 days. 30 Capsule 0 Gabapentin 400 MG Oral Capsule (Neurontin) Take 1 Capsule by mouth in the morning and 1 Capsule at noon and 1 Capsule before bedtime. 90 Capsule 5 oxyCODONE HCl 5 MG Oral Tablet (Oxy IR) (Patient not taking: Reported on 03/14/2023) No current facility-administered medications for this visit. [...] had trouble breathing when he took this. Neurontin [Gabapentin] Propoxyphene Sitagliptin Past Medical History: Diagnosis Date Body mass index (BMI) of 40.0 to 44.9 in adult ([facility]) 11/06/2017 Per Obesity protocol #1 - Brain metastasis 12/28/2017 Chronic back pain 11/22/2020 COPD, severity to be determined ([facility]) 08/28/2017 Diabetic polyneuropathy ([facility]) 09/07/2009 Dyslipidemia, goal LDL below 100 03/10/2009 Per Lipid Taxonomy. HTN, goal to be determined Pulmonary embolism ([facility]) 03/12/2017 Small cell lung cancer ([facility]) 12/28/2017 Spinal stenosis of lumbar region without neurogenic claudication 06/24/2008 Has had at least 4 surgeries on his back. Type 2 diabetes mellitus with hemoglobin A1c goal of less than 7.5% ([facility]) 11/20/2017 Past Surgical History: Procedure Laterality Date COLONOSCOPY, DIAGNOSTIC (RECTUM) 08/20/2014 adenomatous & hyperplastic polyps, diverticulosis, repeat 5 yrs/COLONOSCOPY FLEXIBLE PROXIMAL DIAGNOSTIC performed by Nahid Santana MD at [facility] INCISION OF HEART SAC FOR DRAINAGE N/A 12/12/2019 pericardial drain placment performed by Eliud Chance MD at OR [facility] [place] [facility] UMBILICAL HRNA 5 YRSOR MORE REDUCIBLE PROCEDURE - GENERAL 05/02/2021 Dr Nato Sun, incisional/ventral hernia SPINAL FIXATION, INTERNAL, BY WIRE 03/26/1997 4 lumbar spine operations Objective: The patient is a 62 year old male BP 128/70 | Pulse 75 | Temp 36.5 C (97.7 F) (Tympanic) | Resp 16 | Ht 1.93 m (6' 4") | Wt 108.5kg (239 lb 3.2 oz) | SpO2 96% | BMI 29.12 kg/m | BSA 2.41 m General: alert, healthy, and no distress Eye Exam: PERRLA, extraocular movements intact, conjunctiva are pink and non- injected, sclera clear Oropharynx: Multiple missing teeth carious areas in residual Heart: regular rate & rhythm, no murmur, and no gallops Lungs: lungs clear to auscultation Tremoring of lower extremities No definite lump appreciated back at this time ASSESSMENT: R25.1 Tremor (primary encounter diagnosis) G25.81 RLS (restless legs syndrome) G62.9 Peripheral polyneuropathy R22.2 Lump of skin of back PLAN: Check lab work cephalexin check ultrasound soft tissue increase gabapentin to 400 mg 3 times daily let us know if this makes a difference refill zolpidem trazodone call if problems Follow up eloise Zamudio III, MD documented in this encounter Nursing Notes * Agata Bolden LPN - 03/14/2023 7:54 AM EST Patient presents today for back pain for the past 3 days. He said that there is a lump there and hehasn't been able to get up and move around. He also has an infection in his teeth that he wants to see about getting an antibiotic called in for. He said that his legs won't stop shaking and it is spreading through his body clear up to his jaw. documented in this encounter Plan of Treatment Upcoming Encounters Date Type Department Care Team (Late st Contact Info) Description 06/18/2023 12:20 PM EDT Office Visit Family Practice [address] [place] [address] Efraín Zamudio III, MD [address] [facility] [place] [address] Scheduled Orders Name Type Priority Associated Diagnoses Orde r Schedule URINALYSIS, REFLEX TO CULTURE (NOT FOR NEUTROPENIC PATIENTS) Lab Routine Tremor RLS (restless legs syndrome) Peripheral polyneuropathy Expected: 03/14/2023, Expires: 03/14/2024 US ABDOMEN LIMITED Medical Imaging Routine Lump of skin of back Expected: 03/14/2023, Expires: 04/14/2024 Scheduled Procedures Name Priority Associated Diagnoses Date/Ti [...] Not on filedocumented as of this encounter Results * TSH WITH FREE T4 IF INDICATED (03/14/2023 8:47 AM EST) TSH 0.91 0.27 - 4.20 uIU/mL 03/14/2023 1:54 PM EST LABORATORY [facility] Blood Venous blood specimen / Unknown Venipuncture / Unknown 03/14/2023 8:47 AM EST 03/14/2023 8:47 AM EST Efraín Zamudio III, MD LAB BLOOD ORDERABLE S LABORATORY [facility] [address] [place] [address] * (ABNORMAL) ERYTHROCYTE SEDIMENTATION RATE (ESR) (03/14/2023 8:47 AM EST) ESR 41(H) <20 mm/hour 03/14/2023 1:48 PM EST LABORATORY [facility] Blood Venous blood specimen / Unknown Venipuncture / Unknown 03/14/2023 8:47 AM EST 03/14/2023 8:47 AM EST Efraín Zamudio III, MD LAB BLOOD ORDERABLE S Performing Organization Address [facility] Co de Phone Number LABORATORY [facility] [address] [place] [address] * MAGNESIUM (03/14/2023 8:47 AM EST) Magnesium 2.0 1.5 - 2.6 mg/dL 03/14/2023 10:26 AM EST [facility] Blood Venous blood specimen / Unknown Venipuncture / Unknown 03/14/2023 8:47 AM EST 03/14/2023 8:47 AM EST Efraín Zamudio III, MD LAB BLOOD ORDERABLE S Performing Organization Address City/[facility]/ZIP Co de Phone Number [facility] [phone] [place] [address] * (ABNORMAL) COMPREHENSIVE METABOLIC PANEL (03/14/2023 8:47 AM EST) BUN 10 6 - 20 mg/dL 03/14/2023 10:26 AM EST [facility] 56- Creatinine 0.7 0.6 - 1.2 mg/dL 03/14/2023 10:[address] Estimated Glomerular Filtration Rate >90 >=60 mL/min 03/14/2023 10:26 AM [facility] 56 Comment:eGFR is calculated b ased on the CKD-EPI 2020 equation Sodium 142 135 - 146 mmol/L 03/14/2023 10:[address] Potassium 4.8 3.5 - 5.1 mmol/L 03/14/2023 10:26 AM [facility] 56 Chloride 103 98 - 107 mmol/L 03/14/2023 10:[address] CO2 25 22 - 32 mmol/L 03/14/2023 10:[address] Anion Gap 14 7 - 15 mmol/L 03/14/2023 10:[address] Glucose 166(H) 70 - 120 mg/dL 03/14/2023 10:[address] Albumin 4.1 3.8 - 5.0 g/dL 03/14/2023 10:26 AM [facility] 56 AST 56(H) 10 - 50 U/L 03/14/2023 10:26 AM [facility] 56 Comment:Result may be falsel y elevated due to hemolysis. Alkaline Phosphatase 87 35 - 130 U/L 03/14/2023 10:26 AM [facility] 56 Bilirubin, Total 0.3 <=1.2 mg/dL 03/14/2023 10:26 AM [facility] 56 Calcium 9.7 8.4 - 10.2 mg/dL 03/14/2023 10:26 AM [facility] 56 Protein 7.0 6.0 - 8.3 g/dL 03/14/2023 10:26 AM [facility] 56 ALT 17 10 - 50 U/L 03/14/2023 10:26 AM [facility] 56 Blood Venous blood specimen / Unknown Venipuncture / Unknown 03/14/2023 8:47 AM EST 03/14/2023 8:47 AM EST Efraín Zamudio III, MD LAB BLOOD ORDERABLE S [facility] [address] [place] [address] documented in this encounter Visit Diagnoses Diagnosis Tremor- Primary Abnormal involuntary movements RLS (restless legs syndrome) Restless legs syndrome (RLS) Peripheral polyneuropathy Unspecified hereditary and idiopathic peripheral neuropathy Lump of skin of back Localized superficial swelling, mass, or lump documented in this encounter Advance Directives Documents on File Type Date Recorded Patient Support Associate Expl anation Advance Directives and Living Will 11/03/2008 ADVANCE DIRECTIVE / LIVING WILL Advance Directives and Living Will 11/03/2008 ADVANCE DIRECTIVE / LIVING WILL Power of Core Mounter 11/03/2008 POWER OF A TTORNEY Power of Core Mounter 11/03/2008 POWER OF A TTORNEY Power of Core Mounter 11/03/2008 POWER OF A TTORNEY Care Teams Freight Service Inspector Relationship Specialty Start Date End Date Efraín Zamudio III, MD [address] [facility] [address] PCP - General Family Medicine 06/24/21 documented as of this encounter
--- OUTSIDE RECORDS SUMMARY | 2023-08-31 21:13 | External Medical Summary | Summary of Care ---
Author Name Unknown Organization [facility] Address [address] [place] [address] Phone [phone] Care Team Providers Care Bar Tender Name Role Phone Lizz BUI MD, Efraín León Primary Care Provider [phone] Reason for Visit * Reason Onset Date Comments Advice 04/09/2023 Referral 04/09/2023 MRI request Encounter Details Date Type Department Care Team (Late st Contact Info) Description 04/09/2023 Telephone Family Practice [facility] [place] [address] [facility] [place] [address] Efraín Zamudio III, MD 200 [place] [address] Advice; Referral (MRI request) Allergies Active Allergy [...] sent in. The call back number is: [phone]. The patient is requesting for the meter to be sent over to the pharmacy ([facility]) by this Sunday. 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
--- OUTSIDE RECORDS SUMMARY | 2023-08-31 21:14 | External Medical Summary ---
Author Name Unknown Address Unknown Organization [id number]:[facility] [place] [address] Laboratory Report Ordering Provider Test Date Status DARIA VELÁSQUEZ III 03/14/2023 08:47:25 Final Observation Date Value Abnormality Reference (Units ) Status WBC, Total 03/14/2023 08:47:25 11.23 Above high normal 4 .00-10.80 (K/uL) Final RBC 03/14/2023 08:47:25 5.73 4.50-5.25 (M/uL) Final Hemoglobin 03/14/2023 08:47:25 17.6 Above high normal 1 4.0-16.8 (g/dL) Final HCT 03/14/2023 08:47:25 52.7 Above high normal 40 .0-48.4 (%) Final MCV 03/14/2023 08:47:25 92.0 82.0-99.5 (fL) Final MCH 03/14/2023 08:47:25 30.7 27.0-34.0 (pg) Final MCHC 03/14/2023 08:47:25 33.4 32.0-36.0 (g/dL) Final RDW 03/14/2023 08:47:25 14.5 11.5-15.5 (%) Final Platelets 03/14/2023 08:47:25 230 140-400 (K /uL) Final MPV 03/14/2023 08:47:25 10.9 6.6-11.1 ( fL) Final Performing Location [facility] [place] [address]
--- OUTSIDE RECORDS SUMMARY | 2023-08-31 21:14 | External Medical Summary ---
Author Name Unknown Address Unknown Organization [id number]:[facility] [address] [place] [address] Laboratory Report Ordering Provider Test Date Status DIDIERADRIA III 03/14/2023 08:47:25 Final Observation Date Value Abnormality Reference (Units ) Status BUN 03/14/2023 08:47:25 10 6-20 (mg/dL) Final Creatinine 03/14/2023 08:47:25 0.7 0.6-1.2 (mg/dL) Final Glomerular filtration rate/1.73 sq M.predicted [Volume Rate/Area] in Serum, Plasma or Blood by Creatinine-based formula (CKD-EPI) 03/14/2023 08:47:25 >90 >=60 (mL/min) Final eGFR is calculated based on the CKD-EPI 2020 equation SODIUM 03/14/2023 08:47:25 142 135-146 (m mol/L) Final Potassium 03/14/2023 08:47:25 4.8 3.5-5.1 (m mol/L) Final Cl 03/14/2023 08:47:25 103 98-107 (mm ol/L) Final CO2 03/14/2023 08:47:25 25 22-32 (mmo l/L) Final Anion gap 03/14/2023 08:47:25 14 7-15 (mmol /L) Final Glucose 03/14/2023 08:47:25 166 Above high normal 70 -120 (mg/dL) Final Albumin 03/14/2023 08:47:25 4.1 3.8-5.0 (g /dL) Final AST (Aspartate aminotransferase) 03/14/2023 08:47:25 56 Above high normal 10-50 (U/L) Final Result may be falsely elevat ed due to hemolysis. Alk Phos 03/14/2023 08:47:25 87 35-130 (U/ L) Final Bilirubin, Total 03/14/2023 08:47:25 0.3 <=1 .2 (mg/dL) Final Calcium 03/14/2023 08:47:25 9.7 8.4-10.2 ( mg/dL) Final Protein 03/14/2023 08:47:25 7.0 6.0-8.3 (g /dL) Final ALT (Alanine aminotransferase) 03/14/2023 08:47:25 17 10-50 (U/L) Final Performing Location [facility] [address] [place] [address]
--- OUTSIDE RECORDS SUMMARY | 2023-08-31 21:14 | External Medical Summary ---
Author Name Unknown Address Unknown Organization K01:LAB[facility]ATORY [facility] - [address] [place] [address] Laboratory Report Ordering Provider Test Date Status DARIA VELÁSQUEZ III 03/14/2023 08:47:25 Final Observation Date Value Abnormality Reference (Units ) Status TSH 03/14/2023 08:47:25 0.91 0.27-4.20 (uIU/mL) Final Performing Location [facility] C - [address] [place] [address]
--- OUTSIDE RECORDS SUMMARY | 2023-08-31 21:14 | External Medical Summary | Summary of Care ---
Author Name Unknown Organization [facility] Address [address] [place] [address] Phone [phone] Care Team Providers Care Technician Assistant Name Role Phone Lizz BUI MD, Efraín León Primary Care Provider [phone] Reason for Visit * Reason Onset Date Comments Advice 12/15/2022 Encounter Details Date Type Department Care Team (Late st Contact Info) Description 12/15/2022 Telephone Family Practice [facility] [address] [place] [address] Efraín Zamudio III, MD 200 [place] [address] Advice Allergies Active Allergy Reactions Criticality Noted [...] as of this encounter (statuses as of 03/16/2023) Medications Medication Sig Dispensed Refills Start Date End Date Status Contour Next Monitor w/Device KitIndications:Alondra betic polyneuropathy associated with type 2 diabetes mellitus (HCC),Diabetes type 2, uncontrolled Use as directed . 1 Kit 0 12/17/19 Active LancetsIndications :Diabetic polyneuropathy associated with type 2 diabetes mellitus (HCC) Use as directed 5 times daily 200 Each 11 12/17/19 Active Contour Next Test In Vitro Strip (Glucose Blood)Indications: Diabetic polyneuropathy associated with type 2 diabetes mellitus (HCC) Test five times daily for use with multiple daily insulin injections-before all meals, snacks, exercise, and one to two times during the night. Dx: E11.9 200 Strip 12/17/19 Active Silver sulfADIAZINE 1 % External Cream (Silvadene)Indicat ions:Wound of left foot,Osteomyelitis of toe (HCC) Apply topically to affected area daily. Apply to foot. 50 g 1 09/14/19 Active Gauze Pads 4"X4" PadIndications:Wou nd of left foot,Osteomyelitis of toe (HCC) Apply to the foot daily with silvadene cream. 100 Each 09/14/19 Active Ozempic (1 MG/DOSE) 4 MG/3ML Subcutaneous Solution Pen-injector (Semaglutide (1 MG/DOSE)) Inject 1 mg under the skin once a week. 3 mL 6 10/26/19 Active Excedrin Migraine 250-250-65 MG Oral Tablet (Aspirin-Acetamino phen-Caffeine) Take 2 Tablets by mouth every 12 hours as needed. Do not exceed 3000 mg acetaminophen per 24 hours 0 023 Discontinued(Nd dication List Clean Up) Rizatriptan Benzoate 10 MG Oral Tablet TAKE 1 TABLET BY MOUTH NEEDED FOR MIGRAINE. CAN REPEAT DOSE IN 1 HOUR IF NEEDED. MAXIMUM DOSE OF 20mg PER DAY. 10 Tablet 1 01/08/20 22 023 Discontinued(Re fill) Diclofenac Sodium 75 MG Oral Tablet Delayed Release (Voltaren)Indicati ons:Acute bursitis of right shoulder,Right shoulder tendonitis Take 1 Tablet by mouth in the morning and 1 Tablet before bedtime. With food.. 60 Tablet 0 09/14/19 23 023 Discontinued(Nd dication List Clean Up) Rosuvastatin Calcium 40 MG Oral Tablet (Crestor)Indicatio ns:Dyslipidemia, goal LDL below 100 Take 1 Tablet by mouth at bedtime. 90 Tablet 3 10/05/19 23 023 Discontinued(Re fill) Zolpidem Tartrate 10 MG Oral Tablet (Ambien) Take 1 Tablet by mouth at bedtime as needed for Sleep. 30 Tablet 1 10/12/19 23 023 Discontinued Gabapentin 100 MG Oral Capsule (Neurontin) Take 1 Capsule by mouth in the morning and 1 Capsule at noon and 1 Capsule before bedtime. 90 Capsule 1 10/12/19 23 023 Discontinued(Re fill) Sulfamethoxazole-T rimethoprim 800-160 MG Oral Tablet (Bactrim DS) Take 1 Tablet by mouth in the morning and 1 Tablet before bedtime. 14 Tablet 0 10/28/19 23 023 Discontinued(En d of Procedure) documented as of this encounter (statuses as of 03/16/2023) Active Problems Problem Noted Date Diagnosed Date [...] as of this encounter (statuses as of 03/16/2023) Resolved Problems Problem Noted Date Diagnosed Date [...] as of this encounter (statuses as of 03/16/2023) Immunizations Name Administration Dates Next Due COVID-19 mRNA, LNP-s, No Pre serve, 2-Dose Series (Moderna) 06/16/2020,05/19/2020 Hepatitis B, 20+ yrs 06/02/2014,01/06/2014,12/03 Pneumococcal Conjugate Vacc, 13 Valent (Prevnar) 01/09/2020 Pneumococcal Polysaccharide PPV23 (Pneumovax) 07/13/2021,12/30/2008 Seasonal Influenza, PF, 6 M & above, IM , (FluLaval or Fluzone) 06/28/2022,12/27/2020,01/09/2020 Seasonal Influenza, Split, I IV3, With Preserve, [...] encounter Miscellaneous Notes * Telephone Encounter - Maury Gomez microbiology lab manager - 12/18/2022 4:55 PM EDT Advised pt to contact insurance and explain to them he needs an override. Thank You, Maury Gomez [facility] Cooker Operator II [facility] (Former[facility]) 12/18/2022, 4:55 PM * Telephone Encounter - Natasha Hernandez microbiology lab manager - 12/18/2022 3:17 PM EDT Pt needs an override as his ozapril pen did not work I told him he needs override Thank you for your assistance Natasha Hernandez Environmental Planning Engineer II [facility] ([facility]) (Formerly [facility]) 12/18/2022,3:18 PM * Telephone Encounter - Flor Concepcion OSA - 12/15/2022 4:27 PM EDT Arcelia only has one month of insulin - but he used once and has 0 left - but 5 refills - please call [phone] Pharmacy [facility] [place] documented in this encounter Plan of Treatment Upcoming Encounters Date Type Department Care Team (Late st Contact Info) Description 06/18/2023 12:20 PM EDT Office Visit Family [facility] [address] [place] [address] Efraín Zamudio III, MD [address] [facility] [place] [address] Scheduled Procedures Name Priority Associated Diagnoses Date/Ti [...] on File Type Date Recorded Patient Senior Relationship Manager Expl anation Advance Directives and Living Will 11/03/2008 ADVANCE DIRECTIVE / LIVING WILL Advance Directives and Living Will 11/03/2008 ADVANCE DIRECTIVE / LIVING WILL Power of Java Engineer 11/03/2008 POWER OF A TTORNEY Power of Java Engineer 11/03/2008 POWER OF A TTORNEY Power of Java Engineer 11/03/2008 POWER OF A TTORNEY Care Teams Technician Assistant Relationship Specialty Start Date End Date Efraín Zamudio III, MD 200 [facility] [address] PCP - General Family Medicine 06/24/21 documented as of this encounter
--- OUTSIDE RECORDS SUMMARY | 2023-08-31 21:14 | External Medical Summary ---
Author Name Unknown Address Unknown Organization [id number]:[facility] - [address] [place] [address] Laboratory Report Ordering Provider Test Date Status DARIA VELÁSQUEZ III 03/14/2023 08:47:25 Final Observation Date Value Abnormality Reference (Units ) Status Erythrocyte sedimentation rate by Photometric method 03/14/2023 08:47:25 41 Above high normal <20 (mm/hour) Final Performing Location [facility] - [address] [place] [address]
--- OUTSIDE RECORDS SUMMARY | 2023-08-31 21:14 | External Medical Summary | Summary of Care ---
Author Name Unknown Organization [facility] Address [address] [place] [address] Phone [phone] Care Team Providers Care Truck Assembler Name Role Phone Lizz BUI MD, Efraín León Primary Care Provider [phone] Reason for Visit * Reason Comments Outpatient Testing Encounter Details Date Type Department Care Team (Late st Contact Info) Description 03/14/2023 9:10 AM EST Laboratory [facility] [place] [address] [place] [id number] [facility] [address] [place] [address] Tremor; RLS (restless legs syndrome); Peripheral polyneuropathy Allergies Active Allergy Reactions Criticality Noted Date [...] as of this encounter (statuses as of 03/14/2023) Medications Medication Sig Dispensed Refills Start Date [...] before bedtime. 90 Capsule 5 03/14/2023 Active documented as of this encounter (statuses as of 03/14/2023) Active Problems Problem Noted Date Diagnosed Date [...] as of this encounter (statuses as of 03/14/2023) Resolved Problems Problem Noted Date Diagnosed Date [...] as of this encounter (statuses as of 03/14/2023) Immunizations Name Administration Dates Next Due COVID-19 [...] Care Team (Late st Contact Info) Description 03/20/2023 1:45 PM EST Imaging Radiology [facility] [address] [place] [address] 06/18/2023 12:20 PM EDT Office Visit Family Practice [facility] [place] [address] [place] [address] Efraín Zamudio III, MD [address] [facility] [place] [address] Pending Results Name Type Priority Associated Diagnoses Date /Time COMPREHENSIVE METABOLIC PANEL Lab Routine Tremor RLS (restless legs syndrome) Peripheral polyneuropathy 03/14/2023 8:47 AM EST MAGNESIUM Lab Routine Tremor RLS (restless legs syndrome) Peripheral polyneuropathy 03/14/2023 8:47 AM EST ERYTHROCYTE SEDIMENTATION RATE (ESR) Lab Routine Tremor RLS (restless legs syndrome) Peripheral polyneuropathy 03/14/2023 8:47 AM EST TSH WITH FREE T4 IF INDICATED Lab Routine Tremor RLS (restless legs syndrome) Peripheral polyneuropathy 03/14/2023 8:47 AM EST Scheduled Procedures Name Priority Associated Diagnoses Date/Ti [...] 0 06/16/2020, 09/18/2018, Additional history exists GFR 02/08/2024 02/07/2023, 1008/2022, 06/28/2022, Additional history exists O2 ASSESSMENT COMPLETED IN [...] Not on filedocumented as of this encounter Procedures Procedure Name Priority Date/Time Associated Diagnosis Comments DIFFERENTIAL, AUTOMATED Routine 03/14/2023 8:47 AM EST Tremor RLS (restless legs syndrome) Peripheral polyneuropathy CBC Routine 03/14/2023 8:47 AM EST Tremor RLS (restless legs syndrome) Peripheral polyneuropathy CBC Routine 03/14/2023 8:47 AM EST Tremor RLS (restless legs syndrome) Peripheral polyneuropathy documented in this encounter Results * (ABNORMAL) DIFFERENTIAL, AUTOMATED (03/14/2023 8:47 AM EST) WBC 11.23(H) 4.00 - 10.80 K/uL 03/14/2023 8:59 AM EST [facility] Neutrophils % 84.4(H) 40.0 - 75.0 % 03/14/2023 8:59 AM EST [facility]02 Lymphocytes % 6.8(L) 18.0 - 42.0 % 03/14/2023 8:59 AM EST [facility]02 Monocytes % 7.9 1.0 - 11.0 % 03/14/2023 8:59 AM EST [facility]02 Eosinophils % 0.6 0.0 - 6.0 % 03/14/2023 8:59 AM EST [facility]02 Basophils % 0.3 0.0 - 2.0 % 03/14/2023 8:59 AM EST [facility]02 Absolute Neutrophils 9.48(H) 1.80 - 7.70 K/uL 03/14/2023 8:59 AM EST [facility]02 Absolute Lymphocytes 0.76(L) 1.00 - 4.80 K/ul 03/14/2023 8:59 AM EST [facility]02 Absolute Monocytes 0.89 0.00 - 1.10 K/uL 03/14/2023 8:59 AM EST [facility]02 Absolute Eosinophils 0.07 0.00 - 0.70 K/uL 03/14/2023 8:59 AM EST [facility]02 Absolute Basophils 0.03 0.00 - 0.20 K/uL 03/14/2023 8:59 AM EST [facility]02 Blood Venous blood specimen / Unknown Venipuncture / Unknown 03/14/2023 8:47 AM EST 03/14/2023 8:47 AM EST Efraín Zamudio III, MD LAB BLOOD ORDERABLE [facility] 56- [address] [place], [place] [id number] * (ABNORMAL) CBC (03/14/2023 8:47 AM EST) WBC 11.23(H) 4.00 - 10.80 K/uL 03/14/2023 8:59 AM EST [facility] 56- RBC 5.73 4.50 - 5.25 M/uL 03/14/2023 8:59 AM EST [facility] 56- HGB 17.6(H) 14.0 - 16.8 g/dL 03/14/2023 8:59 AM EST [facility] 56- HCT 52.7(H) 40.0 - 48.4 % 03/14/2023 8:59 AM EST [facility] 56- MCV 92.0 82.0 - 99.5 fL 03/14/2023 8:59 AM EST [facility] 56- MCH 30.7 27.0 - 34.0 pg 03/14/2023 8:59 AM EST [facility] 56- MCHC 33.4 32.0 - 36.0 g/dL 03/14/2023 8:59 AM [facility] 56- RDW 14.5 11.5 - 15.5 % 03/14/2023 8:59 AM [facility] 56-02 PLT 230 140 - 400 K/uL 03/14/2023 8:59 AM [facility] 56- MPV 10.9 6.6 - 11.1 fL 03/14/2023 8:59 AM [facility] 56-02 Blood Venous blood specimen / Unknown Venipuncture / Unknown 03/14/2023 8:47 AM EST 03/14/2023 8:47 AM EST Efraín Zamudio III, MD LAB BLOOD ORDERABLE [facility] 56- [address] [place], [place] [phone] documented in this encounter Visit Diagnoses Diagnosis Tremor Abnormal involuntary movements RLS (restless legs syndrome) Restless legs syndrome (RLS) Peripheral polyneuropathy Unspecified hereditary and idiopathic peripheral neuropathy documented in this encounter Advance Directives Documents on File Type Date Recorded Patient Third Rail Installer Expl anation Advance Directives and Living Will 11/03/2008 ADVANCE DIRECTIVE / LIVING WILL Advance Directives and Living Will 11/03/2008 ADVANCE DIRECTIVE / LIVING WILL Power of Behavioral Health Counselor 11/03/2008 POWER OF A TTORNEY Power of Behavioral Health Counselor 11/03/2008 POWER OF A TTORNEY Power of Behavioral Health Counselor 11/03/2008 POWER OF A TTORNEY Care Teams Truck Assembler Relationship Specialty Start Date End Date Efraín Zamudio III, MD 200 [place] [address] PCP - General Family Medicine 06/24/21 documented as of this encounter
--- OUTSIDE RECORDS SUMMARY | 2023-08-31 21:14 | External Medical Summary | Summary of Care ---
Author Name Unknown Organization [facility] Address [address] [place] [address] Phone [phone] Care Team Providers Care Hand Sprayer Name Role Phone Lizz UBI MD, Efraín León Primary Care Provider [phone] Reason for Visit * Reason Onset Date Comments Information 03/16/2023 Encounter Details Date Type Department Care Team (Late st Contact Info) Description 03/16/2023 Telephone Family Practice [facility] [address] [place] [address] Efraín Zamudio III, MD [address] [place] [address] Information Allergies Active Allergy Reactions Criticality Noted Date [...] encounter Miscellaneous Notes * Telephone Encounter - Erendira Cook purse seining hand - 03/16/2023 9:03 AM EST Patient called and said that their pharmacy never received the ibuprofen. I called them and they did receive it. Erendira Maldonado Intermediate Card Tender II [facility] [address] [address] 03/16/2023 9:04 AM documented in this encounter Plan of Treatment Upcoming Encounters Date Type Department Care Team (Late st Contact Info) Description 06/18/2023 12:20 PM EDT Office Visit Family Practice [facility] [address] [place] [address] Efraín Zamudio III, MD [address] [place] [address] Scheduled Procedures Name Priority Associated Diagnoses Date/Ti [...] Documents on File Type Date Recorded Patient Safe Deposit Box Rental Clerk Expl anation Advance Directives and Living Will 11/03/2008 ADVANCE DIRECTIVE / LIVING WILL Advance Directives and Living Will 11/03/2008 ADVANCE DIRECTIVE / LIVING WILL Power of Science Tutor 11/03/2008 POWER OF A TTORNEY Power of Science Tutor 11/03/2008 POWER OF A TTORNEY Power of Science Tutor 11/03/2008 POWER OF A TTORNEY Care Teams Hand Sprayer Relationship Specialty Start Date End Date Erfaín Zamudio III, MD 200 [place] [address] PCP - General Family Medicine 06/24/21 documented as of this encounter
--- OUTSIDE RECORDS SUMMARY | 2023-08-31 21:14 | External Medical Summary | Summary of Care ---
Author Name Unknown Organization [facility] Address [address] [place] [address] Phone [phone] Care Team Providers Care Engagement Engineer Name Role Phone Lizz BUI MD, Efraín León Primary Care Provider [phone] Reason for Visit * Reason Onset Date Comments Medication Update 03/15/2023 Encounter Details Date Type Department Care Team (Late st Contact Info) Description 03/15/2023 Telephone Family Practice [facility] [address] [facility] [place] [address] Efraín Zamudio III, MD 200 [place] [address] Medication Update Allergies Active Allergy Reactions Criticality [...] Notes * Telephone Encounter - Octavio Horton [facility] - 03/16/2023 11:02 AM EST Called and spoke to patient. Advised OK to take Tylenol as well as ibuprofen. Advised to take ibuprofen with food. Thank you, Octavio Horton, PharmD Clinical Pharmacist [facility] ([facility]) [phone] 03/16/2023, 11:02 AM * Telephone Encounter - Efraín Zamudio III, MD - 03/16/2023 8:40 AM EST Could try acetaminophen as well * Telephone Encounter - Octavio Horton [facility] - 03/15/2023 1:42 PM EST Patient called [...] his headaches, but I advised him that snf use isn't safe. Patient took Excedrin without [...] [facility] ([facility]) (Former[facility]) [phone] 03/15/2023, 1:50 PM * Telephone Encounter - Zoie Gibson CPhT - 03/15/2023 1:37 PM EST Patient calling to report he gets headache 20 minutes after taking his Cephalexin 500 MG Oral Capsule (Keflex) asking if this can be from the medication Thank you, Zoie Gibson Line Worker II [facility] ([facility] ([facility]) 03/15/2023 1:38 PM documented in this encounter Plan of Treatment Upcoming Encounters Date Type Department Care Team (Late st Contact Info) Description 06/18/2023 12:20 PM EDT Office Visit Family Practice [facility] [address] [facility] [place] [address] LizzEfraín almodovar III, MD 200 [place] [address] Scheduled Procedures Name Priority Associated Diagnoses Date/Ti [...] on File Type Date Recorded Patient Supervisor Brooder Farm Expl anation Advance Directives and Living Will 11/03/2008 ADVANCE DIRECTIVE / LIVING WILL Advance Directives and Living Will 11/03/2008 ADVANCE DIRECTIVE / LIVING WILL Power of Assistant Brand Manager 11/03/2008 POWER OF A TTORNEY Power of Assistant Brand Manager 11/03/2008 POWER OF A TTORNEY Power of Assistant Brand Manager 11/03/2008 POWER OF A TTORNEY Care Teams Engagement Engineer Relationship Specialty Start Date End Date Efraín Zamudio III, MD [address] [facility] [place] [address] PCP - General Family Medicine 06/24/21 documented as of this encounter
--- OUTSIDE RECORDS SUMMARY | 2023-08-31 21:14 | External Medical Summary ---
Author Name Unknown Address Unknown Organization K09:[facility] [place] [address] Laboratory Report Ordering Provider Test Date Status DARIA VELÁSQUEZ III 03/14/2023 08:47:25 Final Observation Date Value Abnormality Reference (Units ) Status Magnesium 03/14/2023 08:47:25 2.0 1.5-2.6 (m g/dL) Final Performing Location [facility] [place] [address]
--- OUTSIDE RECORDS SUMMARY | 2023-08-31 21:14 | External Medical Summary ---
Author Name Unknown Address Unknown Organization K09:[facility] [place] [place] [address] Laboratory Report Ordering Provider Test Date Status DIDIERDARIA III 03/14/2023 08:47:25 Final Observation Date Value Abnormality Reference (Units ) Status SYNC LEUKOCYTES IN BLOOD BY AUTOMATED COUNT 03/14/2023 08:47:25 11.23 Above high normal 4.00-10.80 (K/uL) Final Segs 03/14/2023 08:47:25 84.4 Above high normal 40.0-75.0 (%) Final Lymphs % 03/14/2023 08:47:25 6.8 Below low normal 18.0-42.0 (%) Final Monos 03/14/2023 08:47:25 7.9 1.0-11.0 (%) Final Eosinophils 03/14/2023 08:47:25 0.6 0.0-6.0 (%) Final Basos 03/14/2023 08:47:25 0.3 0.0-2.0 (%) Final Absolute Segs 03/14/2023 08:47:25 9.48 Above high normal 1.80-7.70 (K/uL) Final Lymphs, absolute 03/14/2023 08:47:25 0.76 Below low normal 1.00-4.80 (K/ul) Final Monos, Abs 03/14/2023 08:47:25 0.89 0.00-1.10 (K/uL) Final Eos, Abs 03/14/2023 08:47:25 0.07 0.00-0.70 (K/uL) Final Basos, Abs 03/14/2023 08:47:25 0.03 0.00-0.20 (K/uL) Final Performing Location [facility] [place] [address]
--- OUTSIDE RECORDS SUMMARY | 2023-08-31 21:14 | External Medical Summary | Summary of Care ---
Author Name Unknown Organization [facility] Address [address] [place] [address] Phone [phone] Care Team Providers Care Sewer Tapper Name Role Phone Lizz BUI MD, Efraín León Primary Care Provider [phone] Encounter Details Date Type Department Care Team (Late st Contact Info) Description 03/10/[address] [facility] 200 [place] [address] Efraín Zamudio III, MD 200 [facility] [address] Allergies Active Allergy Reactions Criticality Noted Date [...] 5 days 20 Tablet 0 3 Active traZODone HCl 50 MG [...] Telephone Encounter - Agata Bolden LPN - 03/14/2023 4:30 PM EST Patient was seen in the office today by Dr. Zamudio. * Telephone Encounter - Efraín Zamudio III, MD - 03/13/2023 8:00 AM EST Would he like to talk to social Service see if there is any needs are local services available for him * Telephone Encounter - Hemalatha Carnes OSA - 03/10/2023 11:19 AM EST Patient called and stated he need to take a shower and can we suggest anywhere he can go, I advisedmaybe to call [facility] but he wanted me to send his Dr a message, thanks so much documented in this encounter Plan of Treatment Upcoming Encounters Date Type Department Care Team (Late st Contact Info) Description 03/16/2023 11:30 AM EST Imaging Radiology [facility] [address] [facility] [place] [address] 06/18/2023 12:20 PM EDT Office Visit Family Practice [facility] 200 [facility] [address] Efraín Zamudio III, MD 200 [facility] [place] [address] Scheduled Procedures Name Priority Associated Diagnoses Date/Ti [...] on File Type Date Recorded Patient Manager Dish Expl anation Advance Directives and Living Will 11/03/2008 ADVANCE DIRECTIVE / LIVING WILL Advance Directives and Living Will 11/03/2008 ADVANCE DIRECTIVE / LIVING WILL Power of Hat Brusher Machine 11/03/2008 POWER OF A TTORNEY Power of Hat Brusher Machine 11/03/2008 POWER OF A TTORNEY Power of Hat Brusher Machine 11/03/2008 POWER OF A TTORNEY Care Teams Sewer Tapper Relationship Specialty Start Date End Date Efraín Zamudio III, MD [address] [place] [address] PCP - General Family Medicine 06/24/21 documented as of this encounter
[2023-08-31] MEDS: AZTREONAM 2,000 MG in DEXTROSE 5% MINI-B 100 ML IV SCH (21:22)
[2023-08-31] MEDS: ROSUVASTATIN CALCIUM 20 MG TAB PO SCH (21:23)
[2023-09-01] MEDS: traZODone HCL 100 MG TAB PO SCH (00:26)
[2023-09-01] MEDS: ZOLPIDEM TARTRATE 5 MG TAB PO SCH (00:26)
--- NOTE | 2023-09-01 05:53 | Electrocardiogram Report ---
Test Reason : Blood Pressure : / mmHG Vent. Rate : 087 BPM Atrial Rate : 087 BPM P-R Int : 152 ms QRS Dur : 098 ms QT Int : 358 ms P-R-T Axes : 048 -56 098 degrees QTc Int : 430 ms Normal sinus rhythm Left anterior fascicular block Possible Anterior infarct , age undetermined Abnormal ECG When compared with ECG of 05-NOV-2022 22:03, Left anterior fascicular block is now Present Borderline criteria for Anterior infarct are now Present Confirmed by Jovani Borja ([id number]) on 09/01/2023 5:52:35 AM Referred By: REFERRED SELF Confirmed By:Jovani Borja
[2023-09-01] MEDS: ALBUTEROL HFA 8 GM INHALER INH PRN (06:21)
[2023-09-01 06:22] VITALS: RESP 18
[2023-09-01 07:23] LABS: Basophils # (auto) 0.04 K/uL (0.00-0.20); Basophils % (auto) 0.5 %; Eosinophils # (auto) 0.22 K/uL (0.00-0.50); Eosinophils % (auto) 2.7 %; Hematocrit (blood only) 45.4 % (42.0-52.0); Hemoglobin 15.3 g/dl (14.0-18.0); Immature Granulocytes # (auto) 0.03 K/uL (0.01-0.20); Immature Granulocytes % (auto) 0.4 %; Lymphocytes # (auto) 0.98 K/uL (1.20-3.40); Lymphocytes % (auto) 12.2 %; Mean Corpuscular Hemoglobin 31.9 pg (25.0-34.0); Mean Corpuscular Hgb Conc 33.7 g/dL (32.0-36.0); Mean Corpuscular Volume 94.6 fL (80.0-100.0); Mean Platelet Volume 10.5 fL (9.4-12.4); Monocytes # (auto) 0.84 K/uL (0.11-0.59); Monocytes % (auto) 10.5 %; Neutrophils # (auto) 5.92 K/uL (1.40-6.50); Neutrophils % (auto) 73.7 %; Platelet Count 194 K/uL (130-400); RDW Standard Deviation 49.2 fL (36.4-46.3); White Blood Count 8.03 K/ul (4.8-10.8)
[2023-09-01 07:35] LABS: BUN Creatinine Ratio 20.2 (10-20); Calcium 8.9 mg/dl (8.6-10.3); Creatinine Clr Calc Pharmacy 114.6 ml/min; Est GFR (Non-African American) 87.2 ml/min; Magnesium 1.9 mg/dl (1.7-2.4)
--- NOTE | 2023-09-01 11:06 | Hospitalist Progress Note ---
Date of Service September 01, 2023 Assessment & Plan (1) CHF (congestive heart failure): Plan: 63-year-old male with past med history significant for diabetes, hyperlipidemia, COPD, history of small cell lung cancer s/p chemoradiation, brain metastasis s/p radiation, hypertension, history of A-fib, GERD, amputation of the toe of the right foot, chronic back pain, spinal stenosis, postlaminectomy syndrome, tobacco use, anxiety and depression presents with edema of lower extremity and feeling of bloating and shortness of breath. Patient states in the last 2 days started feeling bloating and also developed edema in the extremity extremities. Because of abdominal distension states its pushing on his lungs and is feeling short of breath. In the ER noted to have orthopnea. Denies any chest pain. No headache or dizziness. Vision is okay. No runny nose or sore throat. Currently no cough. Appetite is okay. No difficulty swallowing. No nausea. Normal bowel and bladder movements. Currently resting comfortably and hemodynamically stable. 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 Seems in remission No acute issues now-will have usual follow-up with heme-onc on discharge History of PE and DVT Anticoagulation was stopped when he developed hemorrhagic brain metastasis history of pericardial effusion status post pericardiocentesis Not on any more anticoagulation Other significant medical conditions remained stable as below: hyperlipidemia on statin diabetes hold Ozempic sliding scale follow HbA1c levels-6.7 GERD omeprazole chronic back pain multiple back surgeries pain control PT OT when stable DVT prophylaxis Lovenox for now disposition telemetry full code Admission and Anticipated Discharge Date Admission Date: August 31, 2023 Subjective 08/31/2023 The patient was seen and examined in telemetry unit He has been feeling much better since the administration of Lasix Denies any more chest pain, pressure, shortness of breath Has been saturating normally on room air He wants to go home today 09/01/2023 The patient was seen and examined in telemetry unit he has been feeling much better and denies any symptoms whatsoever has been ambulating in the room and in the hallway without any problem he will be discharged home this afternoon Review of Systems Review of Systems: All systems reviewed and are unremarkable except as noted below Physical Exam Physical Exam: Lying in bed without any acute distress Constitutional: well developed and well nourished; not ill appearing Eyes: PERRL, conjunctivae normal, anicteric sclerae ENMT: external ear and nose normal, oropharynx normal Neck: trachea midline, no thyromegaly Respiratory: no respiratory distress Auscultation: + diminished lung sounds and + crackles (Minimal crackles at the bases) Cardiovascular: Rate/Rhythm: regular rate and regular rhythm; not tachycardic Heart Sounds: normal S1 and normal S2; no murmur Extremities: no edema Gastrointestinal (Abdomen): Inspection/Auscultation: normal bowel sounds; abdomen not distended Percussion/Palpation: abdomen soft; abdomen nontender Neurologic: normal touch/pain/proprioception and moves all extremities; no focal motor deficits Psychiatric: A+Ox3, euthymic affect Lymphatic: no cervical or axillary lymphadenopathy Results & Data Results & Data Vital Signs (Past 12 Hours) Vital Signs Temp Pulse Pulse Resp BP BP Pulse Ox 09/01/23 09:30 90 09/01/23 07:45 36.3 C L 84 18 127/86 92 09/01/23 06:21 76 18 97 09/01/23 03:54 09/01/23 03:49 36.5 C 87 19 113/71 91 09/01/23 00:01 36.5 C 86 18 141/79 H 90 Pulse Ox O2 Del Method O2 Del Method 09/01/23 09:30 09/01/23 07:45 Room Air 09/01/23 06:21 Room Air 09/01/23 03:54 91 Room Air 09/01/23 03:49 Room Air 09/01/23 00:01 Room Air Laboratory Results Short CBC 09/01/23 Range/Units 06:40 WBC 8.03 (4.8-10.8) K/ul Hgb 15.3 (14.0-18.0) g/dl Hct 45.4 (42.0-52.0) % Plt Count 194 (130-400) K/uL BMP 09/01/23 06:40 Sodium 139 Potassium 4.0 Chloride 103 Carbon Dioxide 33 H BUN 19 Creatinine 0.94 Glucose 174 H Calcium 8.9 Medications Administered Current Inpatient Medications Acetaminophen (Acetaminophen 325 Mg Tab) 650 mg PO Q4H PRN PRN Reason: Pain or Fever Stop: 09/30/23 03:53 Last Admin: 08/31/23 11:26 Dose: 650 mg Albuterol (Albuterol Hfa 8 Gm Inhaler) 2 puffs INH QID PRN PRN Reason: Shortness Of Breath Or Wheezin Stop: 09/30/23 03:53 Last Admin: 09/01/23 06:21 Dose: 2 puffs Albuterol (Albut/Ipratrop 3mg/0.5mg Neb 3 Ml Vial) 3 ml NEB Q6R PRN; Protocol PRN Reason: Shortness Of Breath Or Wheezing Stop: 09/30/23 03:53 Last Admin: 08/31/23 12:42 Dose: 3 ml Dextrose (Dextrose 50% 50 Ml Syringe) 25 - 50 ml IV UD PRN; Protocol PRN Reason: Hypoglycemia Protocol Stop: 09/30/23 03:53 Diclofenac Sodium (Diclofenac Sod 1% Gel 100 Gm Tube) 2 gm EXT QID PRN; Protocol PRN Reason: Pain Stop: 09/30/23 03:53 Enoxaparin Sodium (Enoxaparin Inj 40 Mg/0.4 Ml Syr) 40 mg SQ Q24H LUCIANA Stop: 09/30/23 08:59 Last Admin: 09/01/23 08:42 Dose: 40 mg Gabapentin (Gabapentin 800 Mg Tab) 800 mg PO TID@0900,1200,2100 LUCIANA Stop: 09/30/23 08:59 Last Admin: 09/01/23 08:42 Dose: 800 mg Glucagon (Glucagon For Inj 1 Mg Vial) 1 mg SQ UD PRN; Protocol PRN Reason: Hypoglycemia Protocol Stop: 09/30/23 03:53 Glucose (Glucose 40% Gel 15 Gm Tube) 15 - 30 gm PO UD PRN; Protocol PRN Reason: Hypoglycemia Protocol Stop: 09/30/23 03:53 Glucose (Glucose 10 Tab/Tube) 4 - 8 tab PO UD PRN; Protocol PRN Reason: Hypoglycemia Treatment Stop: 09/30/23 03:53 Aztreonam 2,000 mg/ Dextrose 100 mls @ 100 mls/hr IV Q8H LUCIANA Stop: 09/10/23 19:44 Last Infusion: 09/01/23 05:05 Dose: Infused Insulin Aspart (Insulin Aspart Per Unit Charge) 0 units SC ACHS LUCIANA Stop: 09/30/23 07:29 Last Admin: 09/01/23 08:37 Dose: Not Given Miscellaneous (Carbohydrates For Hypoglycemia ) 15 - 30 gm PO UD PRN PRN Reason: Hypoglycemia Protocol Stop: 09/30/23 03:53 Multivitamins/Minerals (Cerovite Adv Formula Tab) 1 tab PO DAILY LUCIANA Stop: 09/30/23 08:59 Last Admin: 09/01/23 08:42 Dose: 1 tab Nitroglycerin (Nitroglycerin Sl 0.4 Mg/Tab Tab) 0.4 mg SL Q5M PRN PRN Reason: Chest Pain Stop: 09/30/23 03:53 Oxycodone HCl (Oxycodone Hcl Ir 5 Mg Tab (Immediate Release)) 5 mg PO Q6H PRN PRN Reason: Mod-Sev Pain (Scale 4-10) Stop: 09/14/23 03:53 Last Admin: 09/01/23 08:41 Dose: 5 mg Pantoprazole Sodium (Pantoprazole 40 Mg Tab) 40 mg PO DAILYBB [facility] Stop: 09/30/23 06:29 Last Admin: 09/01/23 06:06 Dose: 40 mg Polyethylene Glycol (Polyethylene (Miralax) 17 Gm Pack) 17 gm PO DAILY PRN PRN Reason: Constipation Stop: 09/30/23 03:53 Rizatriptan Benzoate (Rizatriptan Benzoate 10 Mg Tab) 10 mg PO UD PRN PRN Reason: Migraine Headache Stop: 09/30/23 03:53 Last Admin: 08/31/23 12:14 Dose: 10 mg Rosuvastatin Calcium (Rosuvastatin Calcium 20 Mg Tab) 40 mg PO HS [facility] Stop: 09/30/23 20:59 Last Admin: 08/31/23 21:23 Dose: 40 mg Rosuvastatin Calcium (Rosuvastatin Calcium 10 Mg Tab) 40 mg PO HS [facility] Stop: 10/01/23 20:59 Trazodone HCl (Trazodone Hcl 100 Mg Tab) 100 mg PO HS [facility] Stop: 09/30/23 20:59 Last Admin: 09/01/23 00:26 Dose: 100 mg Zolpidem Tartrate (Zolpidem Tartrate 5 Mg Tab) 10 mg PO [facility] Stop: 09/30/23 20:59 Last Admin: 09/01/23 00:26 Dose: 10 mg
[2023-09-01 11:53] VITALS: PULSE 84
[2023-09-01 12:04] VITALS: BP 135/82; TEMP 98.4; O2SAT 94
[2023-09-01] MEDS ORDERED: ROSUVASTATIN CALCIUM 10 MG TAB PO SCH (21:00)
--- NOTE | 2023-09-02 07:30 | Discharge Summary ---
Date of Service September 02, 2023 Admission HPI Per Admitting Provider 63-year-old male with past med history significant for diabetes, hyperlipidemia, COPD, history of small cell lung cancer s/p chemoradiation, brain metastasis s/p radiation, hypertension, history of A-fib, GERD, amputation of the toe of the right foot, chronic back pain, spinal stenosis, postlaminectomy syndrome, tobacco use, anxiety and depression presents with edema of lower extremity and feeling of bloating and shortness of breath. Patient states in the last 2 days started feeling bloating and also developed edema in the extremity extremities. Because of abdominal distension states its pushing on his lungs and is feeling short of breath. In the ER noted to have orthopnea. Denies any chest pain. No headache or dizziness. Vision is okay. No runny nose or sore throat. Currently no cough. Appetite is okay. No difficulty swallowing. No nausea. Normal bowel and bladder movements. Currently resting comfortably and hemodynamically stable. Medical history. As mentioned above past surgical history. Colonoscopy. Pericardiocentesis. Umbilical hernia repair. Multiple lumbar spine operations. social history. Single. Quit smoking 2016. Smoked 0.3 packs a day for 33 years. No alcohol use. No drug use. Family history. No family history on file Admission Exam Per Admitting Provider Physical Exam: General- Not in distress. Head- atraumatic Eyes- EOMI ENT- oropharynx clear Neck- supple, no JVD. Lungs- clear to auscultation no wheezing or crackles. Heart- regular rate and rhythm; no murmur, no gallop. Abdomen- normal bowel sounds, soft, nontender, no distension Extremities- Mild pretibial edema present , no erythema seen Neuro- alert, oriented EOMI; no facial palsy; no dysarthria; moves extremities. Principal Diagnosis CHF, fluid overload, history of small cell lung cancer, type 2 diabetes Discharge Exam Lying in bed without any acute distress Constitutional well developed and well nourished; not ill appearing Eyes PERRL, conjunctivae normal, anicteric sclerae ENMT external ear and nose normal, oropharynx normal Neck trachea midline, no thyromegaly Respiratory no respiratory distress Auscultation: + diminished lung sounds and + crackles (Minimal crackles at the bases) Cardiovascular Rate/Rhythm: regular rate and regular rhythm; not tachycardic Heart Sounds: normal S1 and normal S2; no murmur Extremities: no edema Gastrointestinal (Abdomen) Inspection/Auscultation: normal bowel sounds; abdomen not distended Percussion/Palpation: abdomen soft; abdomen nontender Neurologic normal touch/pain/proprioception and moves all extremities; no focal motor deficits Psychiatric A+Ox3, euthymic affect Lymphatic no cervical or axillary lymphadenopathy Discharge Data Allergies Allergy/AdvReac Type Severity Reaction Status Date / Time clindamycin Allergy Severe SHORTNESS Verified 03/10/23 17:22 OF BREATH dextromethorphan Allergy Severe HARD TO Verified 03/10/23 17:22 BREATHE? guaifenesin Allergy Severe HARD TO Verified 03/10/23 17:22 BREATHE? amoxicillin Allergy Intermediate SHORTNESS Verified 03/10/23 17:22 OF BREATH insulin aspart Allergy Unknown ALLERGIC Verified 03/10/23 17:22 TO PRESERVATIVES IN NOVOLOG - OK WITH REGULAR/NPH sitagliptin Allergy Unknown UNKNOWN RXN Verified 03/10/23 17:22 adhesive AdvReac Intermediate "rips his Verified 03/10/23 17:22 skin off" atorvastatin AdvReac Intermediate diarrhea Verified 03/10/23 17:22 duloxetine AdvReac Intermediate Abdominal Verified 03/10/23 17:22 Pain escitalopram AdvReac Intermediate GI UPSET Verified 03/10/23 17:22 gabapentin AdvReac Intermediate CONSTIPATIO Verified 03/10/23 17:22 N propoxyphene AdvReac Intermediate "DID CRAZY Verified 03/10/23 17:22 THINGS" tizanidine AdvReac Intermediate Diarrhea Verified 03/10/23 17:22 metformin AdvReac Unknown PT STATES Verified 03/10/23 17:22 "DID NOT WORK" Consultations 08/31/23 00:56 ED Decision to Admit Stat 08/31/23 08:00 Consult Cardiology Routine Ordered Studies 08/31/23 03:54 CT angio chest PE protocol Urgent Hospital Course (1) CHF (congestive heart failure): 63-year-old male with past med history significant for diabetes, hyperlipidemia, COPD, history of small cell lung cancer s/p chemoradiation, brain metastasis s/p radiation, hypertension, history of A-fib, GERD, amputation of the toe of the right foot, chronic back pain, spinal stenosis, postlaminectomy syndrome, tobacco use, anxiety and depression presents with edema of lower extremity and feeling of bloating and shortness of breath. Patient states in the last 2 days started feeling bloating and also developed edema in the extremity extremities. Because of abdominal distension states its pushing on his lungs and is feeling short of breath. In the ER noted to have orthopnea. Denies any chest pain. No headache or dizziness. Vision is okay. No runny nose or sore throat. Currently no cough. Appetite is okay. No difficulty swallowing. No nausea. Normal bowel and bladder movements. Currently resting comfortably and hemodynamically stable. Acute CHF with preserved EF Admitted with feeling of bloating And lower Extremity edema with orthopnea Noted to have mild elevation of BNP Received a dose of IV Lasix in the ER Has been feeling much better since this morning CT of the chest did show pulmonary congestion and emphysema Appreciate cardiology input and recommendation Echo of the heart noted remains medically stable and has been ambulating without any difficulties Will be discharged home this afternoon discussed with the outpatient surgery rn History of small cell lung cancer s/p chemoradiation history of brain metastasis with 2.5 cm right cerebellar hemispheric mass which was hemorrhagic in nature received Decadron and also completed brain radiation treatment. Seems in remission No acute issues now-will have usual follow-up with heme-onc on discharge History of PE and DVT Anticoagulation was stopped when he developed hemorrhagic brain metastasis history of pericardial effusion status post pericardiocentesis Not on any more anticoagulation Other significant medical conditions remained stable as below: hyperlipidemia on statin diabetes hold Ozempic sliding scale follow HbA1c levels-6.7 GERD omeprazole chronic back pain multiple back surgeries pain control PT OT when stable DVT prophylaxis Lovenox for now disposition telemetry full code Total Time Total Time Spent Total Time Spent (In Minutes): 35 minutes Discharge Plan Discharge Items Patient Disposition: Home - Self-Care Reason For Visit: SOB, CHF? Discharge Diagnosis: CHF, fluid overload, history of small cell lung cancer, type 2 diabetes Condition on Discharge: Good Activity: Resume your previous activity Non-emergency contact: Primary Care Provider Call non-emergency contact if: you have any medication questions and your symptoms worsen Follow-up/Referrals: Efraín Zamudio MD [Primary Care Provider] - (Your doctor's office will give you a call on Sunday with an appointment within 7 days) Diet: Carb Consistent or DM2 and Heart Healthy Addtl Attending Provider Instructions: Please take precautions to avoid falls Take your medications as advised-strongly advised to avoid NSAIDs for pain control to avoid fluid overload Try Tylenol extra strength 2 tablets a day up to 3 times a day for pain control Please keep appointments with healthcare providers Pending Studies at Discharge: No Stand-Alone Forms: My [facility] [id number], Smoking Cessation Medications and DC Order Prescriptions: Continued rizatriptan 10 mg tablet 10 mg PO DIRECTED PRN (Reason: Migraine Headache) esomeprazole magnesium 40 mg capsule,delayed release(DR/EC) 40 mg PO DAILYBB zolpidem 10 mg tablet 10 mg PO HS Rx Instructions: ordered prn but takes routine rosuvastatin 40 mg tablet 40 mg PO HS diclofenac sodium 1 % gel 2 g TOPICAL QID PRN (Reason: Pain) Ozempic 1 mg/dose (4 mg/3 mL) pen injector 1 mg SUBCUT .QWEEK Rx Instructions: sundays ibuprofen 600 mg tablet 600 mg PO Q8 PRN (Reason: Back Pain) gabapentin 800 mg tablet 800 mg PO TID Rx Instructions: morning,noon and before bed trazodone 50 mg tablet 100 mg PO HS Men's 50 Plus Multivitamin 400-20-370 mcg Tablet 1 tab PO DAILY albuterol sulfate 90 mcg/actuation HFA aerosol inhaler 2 puff INHALATION QID PRN (Reason: Shortness Of Breath Or Wheezing) David's Extra Strength 580 (467) mg Tablet 580 mg PO Q6H PRN (Reason: Back Pain) Discontinued naproxen sodium [Aleve] 220 mg Tablet 220 mg PO Q8H PRN (Reason: BACK PAIN') Discharge Orders: Discharge Order (Routine); Ordered 09/01/23 Ordered By: Avtar Sarkar Admission Data Admit Date/Time: 08/31/23 02:28 Attending Provider: Avtar Sarkar Admit Provider: Ethan Denise Primary Care Provider: Efraín Zamudio Other Providers: Ethan Denise; Yunior Givens Other Interventions: Discharge Summary Assessment (RN) Last Done: 09/01/23 11:51
== END 2023-09-01 13:15 | disposition home or self-care (01) ==
LOC: ED 21:01 → 2E 08-31 02:28 → INTOOBSV 08-31 02:28 → 2E 08-31 03:25